=== PATIENT | male | born 1955 | race African-American/Black ===

== ENCOUNTER 2020-03-18 18:57 | Observation (INO) | payer OTHER ==
[2020-03-18] MEDS ORDERED: NA CHLORIDE 0.9% 1,000 ML ONE (20:17)
[2020-03-18 20:34] LABS: Absolute Lymphocytes (CBC) 1.2 K/uL (0.7-4.9); Basophils % 1.1 % (0-1.3); Hematocrit 44.7 % (39.6-49.0); Lymphocytes % 17.7 % (15.3-44.8); Protime INR 0.99; RBC Red Blood Cell Count 4.96 M/uL (4.33-5.43)
--- NOTE | 2020-03-18 20:44 | RAD REPORT ---
EXAM DESCRIPTION: Bertha Single View03/18/2020 8:32 pm CLINICAL HISTORY: cough COMPARISON: 2015 FINDINGS: The lungs appear clear of acute infiltrate. The heart is normal size IMPRESSION: No acute abnormalities displayed
--- NOTE | 2020-03-18 20:47 | RAD REPORT ---
EXAM DESCRIPTION: CT - Head Brain Wo Cont - 03/18/2020 8:25 pm CLINICAL HISTORY: Syncope COMPARISON: 2015 TECHNIQUE: Computed axial tomography of the head was obtained. IV contrast was not requested. All CT scans are performed using dose optimization technique as appropriate and may include automated exposure control or mA/KV adjustment according to patient size. FINDINGS: An intracranial bleed is not seen . The ventricles are normal in caliber. No extra-axial fluid collection is noted. Moderate low-density areas within periventricular, deep and subcortical white matter likely represent ischemic changes secondary to small vessel disease. Fluid within the sinuses/ mastoids is not seen. IMPRESSION: No acute intracranial abnormality is seen. If patient's symptoms persist MRI of the bra in would be recommended.
[2020-03-18 20:53] LABS: ALT/SGPT 11 U/L (12-78); AST/SGOT 14 U/L (15-37); Albumin 3.4 g/dL (3.4-5.0); Alkaline Phosphatase 130 U/L (45-117); BUN Blood Urea Nitrogen 19 mg/dL (7-18); Bicarbonate 24 mmol/L (21-32); Bilirubin Direct < 0.1 mg/dL (0-0.2); Bilirubin Total 0.3 mg/dL (0.2-1.0); Glucose Level 112 mg/dL (74-106); Magnesium 2.5 mg/dL (1.8-2.4); NT PRO-BNP 289 pg/mL (<125); Potassium 4.9 mmol/L (3.5-5.1); Protein, Total 7.7 g/dL (6.4-8.2); Sodium Level 142 mmol/L (136-145); Troponin (Emerg Dept Use Only) < 0.02 ng/mL (0.0-0.045)
[2020-03-18 21:20] LABS: Urine Blood TRACE (NEG); Urine Glucose NEGATIVE (NEG); Urine Protein 2+ (NEG); Urine Specific Gravity 1.025 (1.005-1.030)
--- NOTE | 2020-03-18 22:13 | ER ---
Nurse's Notes [facility] Name: Channing Marmolejo Age: 65 yrs Sex: Male : 1955 Arrival Date: 03/18/2020 Time: 18:58 Bed 15 Private MD: Diagnosis: Dizziness and giddiness;Syncope and collapse-near;Unspecified kidney failure-acute on chronic Presentation: 03/18 18:58 Chief complaint: Patient states: "I feel lightheaded like I am going to pass out every aa5 time I turn my head to the right for about 2 days now". 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 EMS reports pt vomited once en route and was given Zofran 4mg IVP, EMS also reports initial BP of 217/110. Pt takes Plavix. 20G to L AC by EMS. 18:58 Coronavirus screen: Patient reports a cough. Patient reports shortness of breath or aa5 difficulty breathing. Patient denies measured and/or subjective temperature greater than 100.4F prior to today's visit. Patient denies travel on a cruise ship or to a country the [facility] currently lists as an affected area. Patient denies contact with known and/or suspected case of COVID-19. Pt reports baseline SOB. Hx of COPD. Ebola Screen: Patient negative for fever greater than or equal to 101.5 degrees Fahrenheit, and additional compatible Ebola Virus Disease symptoms. Initial Sepsis Screen: Does the patient meet any 2 criteria? No. Patient's initial sepsis screen is negative. Does the patient have a suspected source of infection? No. Patient's initial sepsis screen is negative. Risk Assessment: Do you want to hurt yourself or someone else? Patient reports no desire to harm self or others. Onset of symptoms was February 2020. 18:58 Acuity: KANWAL 2 aa5 18:58 Method Of Arrival: EMS: [facility] aa5 Historical: - Allergies: 19:06 No Known Allergies; aa5 - PMHx: 19:06 CVA; Hypertension; COPD; Carotid Artery Blockage; aa5 - Immunization history:: Adult Immunizations unknown. - Social history:: Smoking status: Patient reports the use of cigarette tobacco products, denies chronic smoking, but will smoke occasionally. - Family history:: not pertinent. Screenin:30 Abuse screen: Denies threats or abuse. Denies injuries from another. Nutritional wh screening: No deficits noted. Tuberculosis screening: No symptoms or risk factors identified. Fall Risk None identified. Assessment: 19:30 General: Appears in no apparent distress. Behavior is calm, cooperative, appropriate wh for age. Pain: Denies pain. Neuro: Level of Consciousness is awake, alert, obeys commands, Oriented to person, place, time, situation, Appropriate for age Process Improvement Manager are equal bilaterally Moves all extremities. Full function Speech is normal, Facial symmetry appears normal, Pupils are PERRLA, Reports lightheadedness. Cardiovascular: Heart tones S1 S2. Cardiovascular: Rhythm is regular. Respiratory: Airway is patent Respiratory effort is even, unlabored, Respiratory pattern is regular, symmetrical, Breath sounds are clear bilaterally. GI: Abdomen is flat, non-distended. GI: Reports nausea. : No signs and/or symptoms were reported regarding the genitourinary system. EENT: No signs and/or symptoms were reported regarding the EENT system. Derm: Skin is intact, is healthy with good turgor, Skin is pink, warm \\T\\ dry. normal. Musculoskeletal: Circulation, motion, and sensation intact. 21:05 Reassessment: Patient appears in no apparent distress at this time. No changes from previously documented assessment. Patient and/or family updated on plan of care and expected duration. Pain level reassessed. Patient is alert, oriented x 3, equal unlabored respirations, skin warm/dry/pink. 22:30 Reassessment: Patient appears in no apparent distress at this time. No changes from previously documented assessment. Patient and/or family updated on plan of care and expected duration. Pain level reassessed. Patient is alert, oriented x 3, equal unlabored respirations, skin warm/dry/pink. Explained POC need for admit. Vital Signs: 18:58 BP 188 / 86; Pulse 65; Resp 16 S; Temp 97.6(O); Pulse Ox 98% on R/A; aa5 20:00 BP 161 / 76; Pulse 66; Resp 18; Pulse Ox 98% on R/A; wh 21:30 BP 163 / 69; Pulse 62; Resp 18; Pulse Ox 99% ; wh 23:00 BP 166 / 97; Pulse 63; Resp 18; Pulse Ox 98% ; wh ED Course: 18:58 Patient arrived in ED. aa5 18:58 Arm band placed on Patient placed in an exam room, on a stretcher. aa5 19:03 Alejandra Garay is Primary Nurse. 19:06 Triage completed. aa5 19:16 Matt Jack MD is Attending Physician. [facility] 19:30 Patient has correct armband on for positive identification. Placed in gown. Bed in low wh position. Call light in reach. Side rails up X 1. health psychologist on. Pulse ox on. NIBP on. 19:50 Inserted saline lock: 20 gauge in left antecubital area, using aseptic technique. Blood wh collected. 20:26 CT Head Brain wo Cont In Process Unspecified. EDMS 20:32 XRAY Chest (1 view) In Process Unspecified. EDIN 22:11 Dean Calvillo MD is Hospitalizing Provider. [facility] 23:07 No provider procedures requiring assistance completed. Patient admitted, IV remains in place. Administered Medications: 20:19 Drug: NS 0.9% 1000 ml Route: IV; Rate: 125 ml/hr; Site: left antecubital; 23:08 Follow up: Response: No adverse reaction; IV Status: Completed infusion 22:18 Drug: Aspirin 162 mg Route: PO; 23:08 Follow up: Response: No adverse reaction Outcome: 22:12 Decision to Hospitalize by Provider. [facility] 23:07 Admitted to Med/surg accompanied by [facility], via stretcher, room 224, with chart, Report wh called to Marina Comer RN 23:07 Condition: stable 23:07 Instructed on the need for admit. 23:22 Patient left the ED. Signatures: Dispatcher [employer] EDIN Matt Jack MD MD cha Calderon, Audri, RN RN aa5 Alejandra Garay Corrections: (The following items were deleted from the chart) 19:07 18:58 Chief complaint: Patient states: "I feel lightheaded like I am going to pass out aa5 every time I turn my head to the right for about 2 days now". 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 EMS reports pt vomited once en route and was given Zofran 4mg IVP, EMS also reports initial BP of 217/110. Pt takes Plavix. aa5
--- NOTE | 2020-03-18 22:14 | EDPHYS ---
Physician Documentation [facility] Name: Channing Marmolejo Age: 65 yrs Sex: Male : 1955 Arrival Date: 03/18/2020 Time: 18:58 Bed 15 Private MD: ED Physician Matt Jack HPI: 03/18 19:59 This 65 yrs old Black Male presents to ER via EMS with complaints of feeling zo lightheaded. 19:59 The patient has experienced near-syncope, almost passed out, felt dizzy. Onset: The zo symptoms/episode began/occurred today, 1 day(s) ago. Duration: This was a single episode, that lasted 30 second(s). Context: the episode(s) was witnessed, by family, occurred at home. Associated injury: The patient did not suffer any apparent associated injury. Associated signs and symptoms: The patient has no apparent associated signs or symptoms. Current symptoms: Currently, the patient is not experiencing any symptoms, the patient feels back to baseline. The patient has experienced similar episodes in the past, a few times, but today's symptoms are worse, lasting longer. Historical: - Allergies: 19:06 No Known Allergies; aa5 - PMHx: 19:06 CVA; Hypertension; COPD; Carotid Artery Blockage; aa5 - Immunization history:: Adult Immunizations unknown. - Social history:: Smoking status: Patient reports the use of cigarette tobacco products, denies chronic smoking, but will smoke occasionally. - Family history:: not pertinent. ROS: 19:59 Constitutional: Negative for fever, chills, and weight loss, Eyes: Negative for injury, zo pain, redness, and discharge, ENT: Negative for injury, pain, and discharge, Neck: Negative for injury, pain, and swelling, Cardiovascular: Negative for chest pain, palpitations, and edema, Respiratory: Negative for shortness of breath, cough, wheezing, and pleuritic chest pain, Abdomen/GI: Negative for abdominal pain, nausea, vomiting, diarrhea, and constipation, Back: Negative for injury and pain, : Negative for injury, bleeding, discharge, and swelling, MS/Extremity: Negative for injury and deformity, Skin: Negative for injury, rash, and discoloration, Psych: Negative for depression, anxiety, suicide ideation, homicidal ideation, and hallucinations, Allergy/Immunology: Negative for hives, rash, and allergies, Endocrine: Negative for neck swelling, polydipsia, polyuria, polyphagia, and marked weight changes, Hematologic/Lymphatic: Negative for swollen nodes, abnormal bleeding, and unusual bruising. 19:59 Neuro: Positive for dizziness, near syncope, weakness. Exam: 19:59 Constitutional: This is a well developed, well nourished patient who is awake, alert, zo and in no acute distress. Head/Face: Normocephalic, atraumatic. Eyes: Pupils equal round and reactive to light, extra-ocular motions intact. Lids and lashes normal. Conjunctiva and sclera are non-icteric and not injected. Cornea within normal limits. Periorbital areas with no swelling, redness, or edema. ENT: Nares patent. No nasal discharge, no septal abnormalities noted. Tympanic membranes are normal and external auditory canals are clear. Oropharynx with no redness, swelling, or masses, exudates, or evidence of obstruction, uvula midline. Mucous membranes moist. Neck: Trachea midline, no thyromegaly or masses palpated, and no cervical lymphadenopathy. Supple, full range of motion without nuchal rigidity, or vertebral point tenderness. No Meningismus. Chest/axilla: Normal chest wall appearance and motion. Nontender with no deformity. No lesions are appreciated. Cardiovascular: Regular rate and rhythm with a normal S1 and S2. No gallops, murmurs, or rubs. Normal PMI, no JVD. No pulse deficits. Respiratory: Lungs have equal breath sounds bilaterally, clear to auscultation and percussion. No rales, rhonchi or wheezes noted. No increased work of breathing, no retractions or nasal flaring. Abdomen/GI: Soft, non-tender, with normal bowel sounds. No distension or tympany. No guarding or rebound. No evidence of tenderness throughout. Back: No spinal tenderness. No costovertebral tenderness. Full range of motion. Male : Normal genitalia with no discharge or lesions. Skin: Warm, dry with normal turgor. Normal color with no rashes, no lesions, and no evidence of cellulitis. MS/ Extremity: Pulses equal, no cyanosis. Neurovascular intact. Full, normal range of motion. Neuro: Awake and alert, GCS 15, oriented to person, place, time, and situation. Cranial nerves II-XII grossly intact. Motor strength 5/5 in all extremities. Sensory grossly intact. Cerebellar exam normal. Normal gait. Psych: Awake, alert, with orientation to person, place and time. Behavior, mood, and affect are within normal limits. 19:59 Chest/axilla: Inspection: normal, Palpation: is normal, Axilla: are normal, Lymph nodes: lymphadenopathy is not appreciated. 19:59 Cardiovascular: Rate: normal, Rhythm: regular, Pulses: no pulse deficits are appreciated, Heart sounds: normal, Edema: is not appreciated, JVD: is noted on the right, to 2 cm. 22:09 Eyes: Periorbital structures: appear normal, Pupils: no acute changes, equal, round, zo and reactive to light and accomodation, Extraocular movements: intact throughout, Conjunctiva: normal, no acute changes, Corneas: are normal, Nystagmus: is not appreciated. 22:09 Neck: ROM/movement: is normal, no acute changes, Meningeal signs: are not present, nuchal rigidity, is not appreciated, no carotid bruits. 22:33 ECG was reviewed by the Attending Physician. [facility] Vital Signs: 18:58 BP 188 / 86; Pulse 65; Resp 16 S; Temp 97.6(O); Pulse Ox 98% on R/A; aa5 20:00 BP 161 / 76; Pulse 66; Resp 18; Pulse Ox 98% on R/A; wh 21:30 BP 163 / 69; Pulse 62; Resp 18; Pulse Ox 99% ; 23:00 BP 166 / 97; Pulse 63; Resp 18; Pulse Ox 98% ; MDM: 19:16 Patient medically screened. [facility] 20:01 Data reviewed: vital signs, nurses notes, lab test result(s), cardiac enzymes, CBC, [facility] electrolytes, EKG, radiologic studies, CT scan, doppler, plain films. Data interpreted: floor sander: rate is 65 beats/min, rhythm is regular, Pulse oximetry: on room air is 98 %. Test interpretation: by ED physician or midlevel provider: ECG, plain radiologic studies. Counseling: I had a detailed discussion with the patient and/or guardian regarding: the historical points, exam findings, and any diagnostic results supporting the discharge/admit diagnosis, lab results, radiology results. 22:06 Differential Diagnosis: cardiac arrhythmia, cerebrovascular accident, idiopathic zo syncope, transient ischemic attack, vasovagal episode. ED course: pt co dizzy , near syncope, pain in right side of neck, multiple episodes, will obs , carotid in morning, also worsening renal insufficency. 03/18 19:54 Order name: Basic Metabolic Panel; Complete Time: 22:02 [facility] 03/18 19:54 Order name: CBC with Diff; Complete Time: 22:02 [facility] 03/18 19:54 Order name: LFT's; Complete Time: 22:02 [facility] 03/18 19:54 Order name: Magnesium; Complete Time: 22:02 [facility] 03/18 19:54 Order name: NT PRO-BNP; Complete Time: 22:02 [facility] 03/18 19:54 Order name: PT-INR; Complete Time: 22:02 [facility] 03/18 19:54 Order name: Troponin (emerg Dept Use Only); Complete Time: 22:02 [facility] 03/18 19:54 Order name: XRAY Chest (1 view); Complete Time: 22:02 [facility] 03/18 19:54 Order name: EKG; Complete Time: 19:55 [facility] 03/18 19:54 Order name: CT Head Brain wo Cont; Complete Time: 22:02 [facility] 03/18 19:54 Order name: US Carotid Artery Bilateral [facility] 03/18 20:58 Order name: Urine Dipstick--Ancillary (enter results); Complete Time: 22:02 [facility] 03/18 19:54 Order name: Cardiac monitoring; Complete Time: 20:08 [facility] 03/18 19:54 Order name: EKG - Nurse/Tech; Complete Time: 20:08 [facility] 03/18 19:54 Order name: IV Saline Lock; Complete Time: 20:08 [facility] 03/18 19:54 Order name: Labs collected and sent; Complete Time: 20:08 [facility] 03/18 19:54 Order name: O2 Per Protocol; Complete Time: 20:08 [facility] 03/18 19:54 Order name: O2 Sat Monitoring; Complete Time: 20:08 [facility] 03/18 19:54 Order name: Urine Dipstick-Ancillary (obtain specimen); Complete Time: 20:49 [facility] EC:33 Rate is 63 beats/min. Rhythm is regular. QRS Stamps is Normal. CA interval is normal. QRS zo interval is normal. QT interval is normal. No Q waves. T waves are Normal. No ST changes noted. Clinical impression: Normal ECG and No evidence of ischemia. Interpreted by me. Reviewed by me. Administered Medications: 20:19 Drug: NS 0.9% 1000 ml Route: IV; Rate: 125 ml/hr; Site: left antecubital; 23:08 Follow up: Response: No adverse reaction; IV Status: Completed infusion 22:18 Drug: Aspirin 162 mg Route: PO; 23:08 Follow up: Response: No adverse reaction Disposition: 03/18/20 22:12 Hospitalization ordered by Dean Calvillo for Observation. Preliminary diagnosis are Dizziness and giddiness, Syncope and collapse - near, Unspecified kidney failure - acute on chronic. - Bed requested for Telemetry/MedSurg (observation). - Status is Observation. - Condition is Fair. - Problem is new. - Symptoms have improved. Signatures: Dispatcher [employer] EDMS Kyara Matute RN Matt Robles MD MD cha Calderon, Audri, RN RN aa5 Habalo, Winsy Corrections: (The following items were deleted from the chart) 22:32 22:12 Hospitalization Ordered by Dean Calvillo MD for Observation. Preliminary diagnosis is Dizziness and giddiness; Syncope and collapse - near; Unspecified kidney failure - acute on chronic. Bed requested for Telemetry/MedSurg (observation). Status is Observation. Condition is Fair. Problem is new. Symptoms have improved. [facility] : 22:32 03/18/2020 22:12 Hospitalization Ordered by Dean Calvillo MD for Observation. Preliminary diagnosis is Dizziness and giddiness; Syncope and collapse - near; Unspecified kidney failure - acute on chronic. Bed requested for Telemetry/MedSurg (observation). Status is Observation. Condition is Fair. Problem is new. Symptoms have improved.
[2020-03-18] MEDS ORDERED: ASPIRIN 81 MG CHEWABLE TABLET ONE (22:23)
[2020-03-18] MEDS ORDERED: ACETAMINOPHEN 500 MG TAB PO PRN (22:25)
[2020-03-18] MEDS ORDERED: MORPHINE 2 MG/ML SYR IV PRN (22:25)
[2020-03-18] MEDS ORDERED: ONDANSETRON 4 MG/2 ML VIAL IV PRN (22:25)
[2020-03-19 01:13] VITALS: BMI 19.4
[2020-03-19] MEDS: NA CHLORIDE 0.9% 1,000 ML IV SCH ×3 (01:59→21:15)
[2020-03-19 02:45] LABS: UR MICROALBUMIN 4.1 mg/dL (< 1.9); Urine Protein/Creatinine Ratio 0.14 ratio (<0.15)
--- NOTE | 2020-03-19 06:24 | EKG ---
Test Date: 2020-03-18 Test Time: 19:07:40 Film And Video Editor: OMAR MEASUREMENT RESULTS: Intervals: Rate: 63 WV: 124 QRSD: 82 QT: 398 QTc: 407 [place]: P: 61 WV: 124 QRS: 28 T: 48 INTERPRETIVE STATEMENTS: Normal sinus rhythm Normal ECG Compared to ECG 11/02/2015 17:10:24 ST (T wave) deviation no longer present Electronically Signed On 03-19-20 06:23:56 CDT by Kin Bennett
[2020-03-19 06:36] LABS: Absolute Lymphocytes (CBC) 3.2 K/uL (0.7-4.9); Basophils % 1.2 % (0-1.3); Hematocrit 40.3 % (39.6-49.0); Lymphocytes % 39.5 % (15.3-44.8); MPV 11.2 fL (7.6-11.3); RBC Red Blood Cell Count 4.47 M/uL (4.33-5.43)
[2020-03-19 06:59] LABS: Bilirubin Total 0.4 mg/dL (0.2-1.0); Potassium 4.1 mmol/L (3.5-5.1); Protein, Total 6.5 g/dL (6.4-8.2)
[2020-03-19] MEDS ORDERED: PNEUMOCOCCAL VACCINE 0.5 ML IMVAC ONE (08:00)
[2020-03-19] MEDS: HYDRALAZINE HCL 10 MG TABLET PO SCH ×3 (08:59→21:16)
--- NOTE | 2020-03-19 09:36 | RAD REPORT ---
EXAM DESCRIPTION: US - Renal Ultrasound-Complete - 03/19/2020 7:50 am CLINICAL HISTORY: . Chronic renal disease COMPARISON: 2019 FINDINGS: The right kidney measures 9 centimeters with an increased echotexture. It contains several cysts. The largest measures 3.6 centimeters. The left kidney measures 11 centimeters with an increased echotexture. It contains multiple cysts. Th e largest 4.6 centimeters. Hydronephrosis is not seen. No gross abnormality of bladder IMPRESSION: Multiple, bilateral renal cysts without significant change. Increased renal echotexture consistent with parenchymal disease
--- NOTE | 2020-03-19 09:39 | RAD REPORT ---
EXAM DESCRIPTION: USCarotid Artery Bilateral03/19/2020 8:15 am CLINICAL HISTORY: syncope COMPARISON: 2012 FINDINGS: The velocity of the right internal carotid artery equals 96 cm/sec. The right ICA/CCA rati o 1.6 The velocity of the left internal carotid artery equals 106 cm/sec. The left ICA/CCA ratio 1.4. No plaque visualized within the carotid arteries The vertebral arteries demonstrate antegrade flow IMPRESSION: No plaque visualized within the carotid arteries NASCET criteria used. Mild 0-49% stenosis Moderate 50-69% stenosis Severe 70-99% stenosis
--- NOTE | 2020-03-19 10:18 | P.HP ---
Certification for Inpatient Patient admitted to: Observation With expected LOS: <2 Midnights Patient will require the following post-hospital care: None Practitioner: I am a practitioner with admitting privileges, knowledge of patient current condition, hospital course, and medical plan of care. Services: Services provided to patient in accordance with Admission requirements found in Title 42 Section 412.3 of the Code of Federal Regulations Patient History Date of Service: 03/18/20 Reason for admission: Syncope; acute renal insufficiency; dehydration History of Present Illness: Patient is a 65-year-old gentleman who came to the hospital with dehydration and syncopal event. Patient was given IV fluids and in the emergency room he was feeling better. Patient also has some acute renal insufficiency. Will go ahead and check a renal ultrasound along with carotid Doppler and echocardiogram. Patient be admitted for observation Allergies No Known Allergies Allergy (Verified 03/18/20 23:48) Home Medications: Amlodipine [Norvasc] 5 mg PO DAILY 03/19/20 Clopidogrel Bisulfate [Plavix] 75 mg PO DAILY 03/19/20 Lisinopril/Hydrochlorothiazide [Lisinopril-Hctz 10-12.5 mg Tab] 1 each PO DAILY 03/19/20 Tamsulosin [Flomax] 0.4 mg PO BEDTIME 03/19/20 - Past Medical/Surgical History Has patient received pneumonia vaccine in the past: No Diabetic: No -: HTN -: Hyperlipidemia -: Chronic Kidney disease -: COPD -: History of Cocaine abuse -: Carotid Occlusive Disease -: History of CVA/TIA-no residual -: Chronic Hepatitis C -: Chronic Back pain -: Cervical Spondylosis -: UGI bleed -: Lt shoulder sx -: GI sx Psychosocial/ Personal History: . 8-Children - Family History Mother Medical History: Hypertension Father Medical History: Hypertension Brother Medical History: Hypertension Sister Medical History: Hypertension - Social History Smoking Status: Current every day smoker Alcohol use: Yes CD- Drugs: Yes Caffeine use: No Review of Systems 10-point ROS is otherwise unremarkable Physical Examination - Vital Signs Temperature: 97.1 F Blood Pressure: 188/86 Pulse: 57 Respirations: 20 Pulse Ox (%): 100 - Physical Exam General: Alert, In no apparent distress, Oriented x3 HEENT: Atraumatic, PERRLA, Mucous membr. moist/pink, EOMI, Sclerae nonicteric Neck: Supple, 2+ carotid pulse no bruit, No LAD, Without JVD or thyroid abnormality Respiratory: Clear to auscultation bilaterally, Normal air movement Cardiovascular: Regular rate/rhythm, Normal S1 S2, No murmurs Gastrointestinal: Normal bowel sounds, Soft and benign, Non-distended, No tenderness Musculoskeletal: No clubbing, No swelling, No tenderness Integumentary: No rashes Neurological: Normal gait, Normal speech, Normal strength at 5/5 x4 extr, Normal tone, Sensation intact, Cranial nerves 3-12 intact, Normal affect Lymphatics: No axilla or inguinal lymphadenopathy - Studies Laboratory Data (last 24 hrs) 03/18/20 20:16: PT 11.7, INR 0.99 03/18/20 20:16: WBC 6.7, Hgb 14.3, Hct 44.7, Plt Count 246 03/18/20 20:16: Sodium 142, Potassium 4.9, BUN 19 H, Creatinine 2.26 H, Glucose 112 H, Magnesium 2.5 H, Total Bilirubin 0.3, AST 14 L, ALT 11 L, Alkaline Phosphatase 130 H Assessment & Plan - Problems (Diagnosis) (1) Dehydration Current Visit: Yes Status: Acute (2) Syncope and collapse Current Visit: Yes Status: Acute (3) Acute renal insufficiency Current Visit: Yes Status: Acute - Plan Plan: 1. Carotid Doppler 2. Echo 3. Monitor on telemetry 4. Renal ultrasound 5. Monitor labs closely 6. GI and DVT prophylaxis Discharge Plan: Home Plan to discharge in: 48 Hours - Advance Directives Does patient have a Living Will: No Does patient have a Durable POA for Healthcare: No - Code Status/Comfort Care Code Status Assessed: Yes Code Status: Full Code Critical Care: No Time Spent Managing PTS Care (In Minutes): 45
--- NOTE | 2020-03-19 10:19 | P.DS ---
Discharge Date: 03/19/20 Disposition: ROUTINE DISCHARGE Reason for Admission: Syncope; acute renal insufficiency; dehydration - Problems (1) Dehydration Current Visit: Yes Status: Acute (2) Syncope and collapse Current Visit: Yes Status: Acute (3) Acute renal insufficiency Current Visit: Yes Status: Acute Brief History of Present Illness: Patient is a 65-year-old gentleman who came to the hospital with dehydration and syncopal event. Patient was given IV fluids and in the emergency room he was feeling better. Patient also has some acute renal insufficiency. Will go ahead and check a renal ultrasound along with carotid Doppler and echocardiogram. Patient be admitted for observation Vital Signs/Physical Exam: Temp Pulse Resp BP Pulse Ox 97.1 F 57 20 188/86 H 100 03/19/20 10:17 03/19/20 10:17 03/19/20 10:17 03/19/20 10:17 03/19/20 10:17 General: Alert, In no apparent distress, Oriented x3 Laboratory Data at Discharge: WBC 8.0 K/uL (4.3-10.9) D 03/19/20 06:16 Hgb 13.0 g/dL (13.6-17.9) L 03/19/20 06:16 Hct 40.3 % (39.6-49.0) 03/19/20 06:16 Plt Count 227 K/uL (152-406) 03/19/20 06:16 PT 11.7 SECONDS (9.5-12.5) 03/18/20 20:16 INR 0.99 03/18/20 20:16 Sodium 142 mmol/L (136-145) 03/19/20 06:16 Potassium 4.1 mmol/L (3.5-5.1) 03/19/20 06:16 BUN 19 mg/dL (7-18) H 03/19/20 06:16 Creatinine 1.92 mg/dL (0.55-1.3) H 03/19/20 06:16 Glucose 76 mg/dL (74-106) 03/19/20 06:16 Magnesium 2.5 mg/dL (1.8-2.4) H 03/18/20 20:16 Total Bilirubin 0.4 mg/dL (0.2-1.0) 03/19/20 06:16 AST 10 U/L (15-37) L 03/19/20 06:16 ALT 12 U/L (12-78) 03/19/20 06:16 Alkaline Phosphatase 108 U/L (45-117) 03/19/20 06:16 Home Medications: Amlodipine [Norvasc*] 5 mg PO DAILY 03/19/20 Clopidogrel Bisulfate [Plavix*] 75 mg PO DAILY 03/19/20 Hydralazine [Apresoline*] 10 mg PO TID #90 tab 03/19/20 Lisinopril/Hydrochlorothiazide [Lisinopril-Hctz 10-12.5 mg Tab] 1 each PO DAILY 03/19/20 Tamsulosin [Flomax*] 0.4 mg PO BEDTIME 03/19/20 New Medications: Hydralazine [Apresoline*] 10 mg PO TID #90 tab Patient Discharge Instructions: OK TO DC IV AND DC HOME. FOLLOW-UP WITH PRIMARY CARE PROVIDER IN 1-2 WEEKS. FOLLOW-UP WITH CARDIOLOGY and program development manager IN 1-2 WEEKS. RETURN TO THE ER IF symptoms worsen. CALL or TEXT DR. GONZALEZ AT [phone] IF ANY QUESTIONS REGARDING HOSPITAL STAY. PLEASE CALL THE FLOOR AT [phone] IF ANY MEDICATION OR NURSING QUESTIONS. Diet: Renal Activity: Fall precautions Time spent managing pt's care (in minutes): 30
[2020-03-19] MEDS: AMLODIPINE 5 MG TAB PO SCH (12:10)
[2020-03-19] MEDS: hydroCHLOROthiazide 12.5 MG CAP PO SCH (12:11)
[2020-03-19] MEDS: CLOPIDOGREL 75 MG TABLET PO SCH (12:11)
[2020-03-19] MEDS: lisinopriL 10 MG TAB PO SCH (12:11)
[2020-03-19] MEDS: HYDRALAZINE HCL 20 MG/ML VIAL IV ONE ×2 (12:29→14:55)
[2020-03-19] MEDS ORDERED: TAMSULOSIN 0.4 MG SR CAP PO SCH (21:00)
[2020-03-19] MEDS: clonazePAM 0.5 MG TAB PO SCH (22:47)
[2020-03-20] MEDS: METHYLPREDNISOLONE 125 MG INJ IV SCH ×2 (00:46→05:37)
[2020-03-20] MEDS: IPRATROPIUM BROM 0.5MG/2.5ML NEB SCH ×2 (01:32→08:05)
[2020-03-20] MEDS: ALBUTEROL 2.5 MG/3 ML NEB SOL NEB SCH ×2 (01:32→08:05)
--- NOTE | 2020-03-20 02:10 | P.PN ---
Subjective Date of Service: 03/19/20 Patient blood pressure was fluctuating and he did not feel comfortable going home. I spoke to patient's family, and stated that we adjusted blood pressure medication. Patient should be stable for discharge in a.m.. Review of Systems 10-point ROS is otherwise unremarkable Physical Examination - Vital Signs Temperature: 98.5 F Blood Pressure: 122/71 Pulse: 77 Respirations: 18 Pulse Ox (%): 98 - Physical Exam General: Alert, In no apparent distress, Oriented x3 Respiratory: Clear to auscultation bilaterally, Normal air movement Cardiovascular: Regular rate/rhythm, Normal S1 S2, No murmurs Gastrointestinal: Normal bowel sounds, Soft and benign, Non-distended, No masses, No rebound, No guarding Musculoskeletal: No clubbing, No swelling Neurological: Normal strength at 5/5 x4 extr, Normal tone, Sensation intact, Cranial nerves 3-12 intact Assessment & Plan - Problems (Diagnosis) (1) Dehydration Current Visit: Yes Status: Acute (2) Syncope and collapse Current Visit: Yes Status: Acute (3) Acute renal insufficiency Current Visit: Yes Status: Acute - Plan Plan: Continue with current plan of care as mentioned below: 1. Carotid Doppler was unremarkable 2. Echo is pending 3. Monitor on telemetry 4. Renal ultrasound is negative 5. Monitor labs closely 6. Adjust blood pressure medication 7. GI and DVT prophylaxis Discharge Plan: Home Plan to discharge in: 48 Hours - Advance Directives Does patient have a Living Will: No Does patient have a Durable POA for Healthcare: No - Code Status/Comfort Care Code Status: Full Code Critical Care: No Time Spent Managing PTS Care (In Minutes): 30
[2020-03-20 02:14] VITALS: O2SAT 99
--- NOTE | 2020-03-20 02:15 | P.DS ---
Discharge Date: 03/20/20 Disposition: ROUTINE DISCHARGE Discharge Condition: GOOD Reason for Admission: Syncope; acute renal insufficiency; dehydration - Problems (1) Dehydration Status: Acute (2) Syncope and collapse Status: Acute (3) Acute renal insufficiency Status: Acute Brief History of Present Illness: Patient is a 65-year-old gentleman who came to the hospital with dehydration and syncopal event. Patient was given IV fluids and in the emergency room he was feeling better. Patient also has some acute renal insufficiency. Will go ahead and check a renal ultrasound along with carotid Doppler and echocardiogram. Patient be admitted for observation Hospital Course: Patient has done well after hydration. Clinically patient is doing well. At this time, patient is stable for discharge with outpatient follow-up. Patient will need to follow closely with Nephrology as an outpatient. Patient does have some proteinuria. Patient will need to continue to follow with PCP, Cardiology, and Nephrology as an outpatient. Return to the ER if symptoms worsen. Vital Signs/Physical Exam: Temp Pulse Resp BP Pulse Ox 98.5 F 77 18 122/71 98 03/20/20 02:09 03/20/20 02:09 03/20/20 02:09 03/20/20 02:09 03/20/20 02:09 General: Alert, In no apparent distress, Oriented x3 Laboratory Data at Discharge: WBC 8.0 K/uL (4.3-10.9) D 03/19/20 06:16 Hgb 13.0 g/dL (13.6-17.9) L 03/19/20 06:16 Hct 40.3 % (39.6-49.0) 03/19/20 06:16 Plt Count 227 K/uL (152-406) 03/19/20 06:16 PT 11.7 SECONDS (9.5-12.5) 03/18/20 20:16 INR 0.99 03/18/20 20:16 Sodium 142 mmol/L (136-145) 03/19/20 06:16 Potassium 4.1 mmol/L (3.5-5.1) 03/19/20 06:16 BUN 19 mg/dL (7-18) H 03/19/20 06:16 Creatinine 1.92 mg/dL (0.55-1.3) H 03/19/20 06:16 Glucose 76 mg/dL (74-106) 03/19/20 06:16 Magnesium 2.5 mg/dL (1.8-2.4) H 03/18/20 20:16 Total Bilirubin 0.4 mg/dL (0.2-1.0) 03/19/20 06:16 AST 10 U/L (15-37) L 03/19/20 06:16 ALT 12 U/L (12-78) 03/19/20 06:16 Alkaline Phosphatase 108 U/L (45-117) 03/19/20 06:16 Home Medications: Amlodipine [Norvasc*] 5 mg PO DAILY 03/19/20 Clopidogrel Bisulfate [Plavix*] 75 mg PO DAILY 03/19/20 Hydralazine [Apresoline*] 10 mg PO TID #90 tab 03/19/20 Lisinopril/Hydrochlorothiazide [Lisinopril-Hctz 10-12.5 mg Tab] 1 each PO DAILY 03/19/20 Tamsulosin [Flomax*] 0.4 mg PO BEDTIME 03/19/20 New Medications: Hydralazine [Apresoline*] 10 mg PO TID #90 tab Patient Discharge Instructions: OK TO DC IV AND DC HOME. FOLLOW-UP WITH PRIMARY CARE PROVIDER IN 1-2 WEEKS. FOLLOW-UP WITH CARDIOLOGY and frame maker IN 1-2 WEEKS. RETURN TO THE ER IF symptoms worsen. CALL or TEXT DR. GONZALEZ AT [phone] IF ANY QUESTIONS REGARDING HOSPITAL STAY. PLEASE CALL THE FLOOR AT [phone] IF ANY MEDICATION OR NURSING QUESTIONS. Diet: Renal Activity: Fall precautions Followup: Kin Bennett MD [ACTIVE - CAN ADMIT] - Time spent managing pt's care (in minutes): 20
[2020-03-20 06:31] LABS: Absolute Lymphocytes (CBC) 0.8 K/uL (0.7-4.9); Basophils % 0.8 % (0-1.3); Hematocrit 41.4 % (39.6-49.0); Lymphocytes % 10.8 % (15.3-44.8); MPV 10.9 fL (7.6-11.3); RBC Red Blood Cell Count 4.68 M/uL (4.33-5.43)
[2020-03-20 06:46] LABS: Magnesium 2.2 mg/dL (1.8-2.4); Phosphorus 2.1 mg/dL (2.5-4.9); Potassium 4.1 mmol/L (3.5-5.1)
[2020-03-20] MEDS ORDERED: HOME MED 1 EA UNK (Lisinopril/Hydrochlorothiazide [Lisinopril-Hctz 10-12.5 Mg Tab] 1 EACH) PO SCH (09:00)
[2020-03-20] MEDS: AMLODIPINE 5 MG TAB PO SCH (09:05)
[2020-03-20] MEDS: HYDRALAZINE HCL 10 MG TABLET PO SCH (09:05)
[2020-03-20] MEDS: clonazePAM 0.5 MG TAB PO SCH (09:05)
[2020-03-20] MEDS: CLOPIDOGREL 75 MG TABLET PO SCH (09:06)
[2020-03-20] MEDS: lisinopriL 10 MG TAB PO SCH (09:06)
[2020-03-20] MEDS: hydroCHLOROthiazide 12.5 MG CAP PO SCH (09:06)
[2020-03-20 09:07] VITALS: BP 124/71
[2020-03-20 09:38] LABS: Blood Morphology Comment NOT SEEN (NOT SEEN); Platelet Estimate ADEQ; Urine White Blood Cell Casts OK
[2020-03-20 10:00] VITALS: TEMP 97.5
--- NOTE | 2020-03-22 07:50 | ECHO ---
HEIGHT: 5 ft 11 in WEIGHT: 139 lb 0 oz DATE OF STUDY: 03/19/[address]: Dean Calvillo MD 2-DIMENSIONAL: YES M.MODE: YES DOPPLER: YES COLOR FLOW: YES TDS: PORTABLE: DEFINITY: BUBBLE STUDY: DIAGNOSIS: SYNCOPE CARDIAC HISTORY: CATHERIZATION: NO SURGERY: NO PROSTHETIC VALVE: NO PACEMAKER: NO MEASUREMENTS (cm) DIASTOLIC (NORMALS) SYSTOLIC (NORMALS) IVSd 0.9 (0.6-1.2) LA Diam 3.3 (1.9-4.0) LVEF 63% LVIDd 3.5 (3.5-5.7) LVIDs 2.3 (2.0-3.5) %FS 34% LVPWd 1.0 (0.6-1.2) Ao Diam 3.0 (2.0-3.7) 2 DIMENSIONAL ASSESSMENT: RIGHT ATRIUM: NORMAL LEFT ATRIUM: NORMAL RIGHT VENTRICLE: NORMAL LEFT VENTRICLE: NORMAL TRICUSPID VALVE: NORMAL MITRAL VALVE: NORMAL PULMONIC VALVE: NORMAL AORTIC VALVE: NORMAL PERICARDIAL EFFUSION: NONE AORTIC ROOT: NORMAL LEFT VENTRICULAR WALL MOTION: NORMAL DOPPLER/COLOR FLOW: MILD TRICUSPID REGURGITATION. NORMAL RIGHT VENTRICULAR SYSTOLIC PRESSURE. COMMENTS: NORMAL LEFT VENTRICULAR SIZE AND FUNCTION. NO WALL MOTION ABNORMALITY. NO EFFUSION. MILD TRICUSPID REGURGITATION - NORMAL RIGHT VENTRICULAR SIZE AND FUNCTION. TECHNOLOGIST: MASHA GIL
== END 2020-03-20 10:59 | disposition home or self-care (01) ==
LOC: ER 18:57 → ERHOLD 22:23 → 2ND 23:07
PROVIDERS: ADMIT Hospitalist; ATTEND Hospitalist
DX: R55 Syncope and collapse (principal); E86.0 Dehydration; I12.9 Hypertensive chronic kidney disease with stage 1 through stage 4 chronic kidney disease, or unspecified chronic kidney disease; N18.9 Chronic kidney disease, unspecified; E78.5 Hyperlipidemia, unspecified; J44.9 Chronic obstructive pulmonary disease, unspecified; F14.10 Cocaine abuse, uncomplicated; N28.9 Disorder of kidney and ureter, unspecified; Z23 Encounter for immunization
CPT/HCPCS: 96361; 93005; 93306; 85025 ×3; 80048 ×2; 36415 ×2; 83735 ×2; 84100; 85610; 80076; 83605; 81003; 82570; 84484; 80053; 83880 ×2; 84156; 82043; 70450; 71045; 90471; 93880; 90670; 76770; 94640; 96360; 99285; J0360; J7030 ×3; J2930 ×2; G0378 ×3

== ENCOUNTER 2020-12-23 11:07 | Inpatient (IN) | payer OTHER ==
--- NOTE | 2020-12-22 13:16 | R.PREADM ---
PRE-ADMISSION SCREENING FORM SCREENING DATE AND TIME 12/22/2020 09:32 (MARKETING EFFECTIVENESS MANAGER) ANTICIPATED REHAB ADMISSION DATE 12/24/2020 REFERRING FACILITY [facility] REFERRAL DATE AND TIME 12/21/2020 10:32 (MARKETING EFFECTIVENESS MANAGER) REFERRAL OFFICE PHONE REFERRAL ROOM# [id number] ACUTE ADMIT DATE 12/23/2020 Previous Rehabilitation(s): No. ACUTE TORPEDO MAN/DC WILL CALL ORDER CLERK SHARMILA ATTENDING PHYSICIAN SHY EVANS MD REFERRING PHYSICIAN SHY EVANS MD REHAB FACILITY [facility] CLINICAL LIAISON Chika Brown PHYSICIAN REVIEWER Dr. Colin Barrera M.D. MR# [id number] NAME RADHA LEWIS ADDRESS [address] [facility] PHONE [facility] [id number] DATE OF 1955 AGE 65 SSN# [id number] GENDER male MARITAL STATUS RACE unknown race ADMIT FROM 02 - [facility] PRE-HOSPITAL LIVING SETTING 01 - Home (private home/apt. board/care, assisted living, retirement, transitional living) HOME TYPE AND DETAILS Type of home: single family house # of steps to enter the residence: 1 # of levels in the residence: 2 # of levels in the residence: 1 PRE-HOSPITAL LIVING WITH Alone FAMILY SUPPORT Yes PRIMARY FAMILY CONTACT NAME RADHA LEWIS PRIMARY FAMILY CONTACT PHONE PRIMARY FAMILY CONTACT RELATIONSHIP Son PHONE PRIMARY FAMILY CONTACT ON ADM.? no IS PRIMARY FAMILY CONTACT AUTH. REP.? no 1ST EMERGENCY CONTACT RADHA LEWIS 1ST CONTACT PHONE 1ST CONTACT RELATIONSHIP Son PHONE 1ST CONTACT ON ADM. no IS 1ST CONTACT AUTH. REP.? no PHONE 2ND CONTACT ON ADM.? no PATIENT EMPLOYMENT STATUS Retired (for age) PATIENT EMPLOYER No Employer PAYOR INFORMATION: 1ST PAYOR NAME Lizet 1ST PAYOR PHONE [phone] 1ST PAYOR CONTACT Brian Massimo 1ST PAYOR INJURY/ILLNESS DUE TO ACCIDENT? No ANOTHER DEMOCRAT RESPONSIBLE? No PRIMARY REHAB/ACUTE DIAGNOSIS: CVA,ATAXIA ONSET DATE 12/16/2020 REHAB IMPAIRMENT CATEGORY (SHERITA): 01 Stroke (STR) MEETS 60% rule AFFECTED EXTREMITIES: RLE, and RUE PRIMARY DIAGNOSIS-RELATED SURGERIES: LUMBAR PUNCTURE PROCEDURE 12/17/20 SUMMARY OF ACUTE HOSPITALIZATION: Pt. is a 65 yo Right-handed male of unknown race. On 12/16/2020 Pt. presented to [facility] with sudden onset of right-side weakness. On 12/16/2020 he was admitted to [facility] with diagnosis CVA,ATAXIA. His impairment category is Stroke 01 - Right Body (Left Brain) (01.2). Pre-morbidly, Pt. was independent/mod-I in Balance, Safety Awareness, Self-Care, and Endurance; and h e had good Social Cognition, Transfers Control, Self-Care, and Balance. Currently, he has deficits of Locomotion, Sphincter Control, Endurance, Transfers Control, Balance, a nd Safety Awareness. Pt. is now referred to [facility] for acute in-patient rehabilitation in order to maximize patient's functional independence in activities of daily living, strength, ROM, and mobi lity. Patient has realistic goal of being discharged at assistance level 7-Ind to reside at Home with Pt s elf. PAST MEDICAL HISTORY HTN COPD CVA'S X 6 ATAXIA HYPERLIPIDMIA PROTEIN-CALORIE MALNUTRITION MEDICATION ALLERGIES: No Known Drug Allergies (NKDA) ENVIRONMENTAL ALLERGIES: - Substance Allergies None Known - Other Allergies None Known CODE STATUS: Full code HEIGHT 5' 7" BMI N/A DIET: - Diet Type Regular - Diet - Solid Texture Regular - Diet - Liquid Texture Regular - Tube Feed N/A REVIEW OF SYSTEMS: - Gen Alert and awake Lying in bed No apparent distress Oriented to: person, time, and place - Vital Signs Temperature: 98.3 F SBP/DBP: 163/94 Pulse: 87 Resp: 18 Vital signs stable, afebrile - CVS RRR VITAL SIGNS Temperature: 98.3 F SBP/DBP: 163/94 Pulse: 87 Resp: 18 Vital signs stable, afebrile MEDICATIONS/TREATMENT: Other- See attached MAR (Medication Administration Record). CURRENT SPHINCTER CONTROL: Pre-hospital bladder status: unspecified # of bladder accidents in the last 7 days prior to screenin Pre-hospital bowel status: unspecified # of bowel accidents in the last 7 days prior to screenin Last Bowel Movement Date: 12/22/2020 CURRENT LOCOMOTION STATUS: distance walked 75 feet W ROLLING WALKER DETAILED CURRENT FUNCTIONAL STATUS: - Bladder accident frequency: Ind - No accidents in the past 7 days - Bowel accident frequency: Ind - No accidents in the past 7 days - Walking score based on distance walked: 0(N/A) score based on distance walked: 2(5149ft) - Wheelchair score based on distance traveled: 0(N/A) QI SCORES: - Self-Care A. Eating 03-Partial/moderate assistance B. Oral hygiene 03-Partial/moderate assistance C. Toileting hygiene 03-Partial/moderate assistance E. Shower/bathe self 03-Partial/moderate assistance F. Upper body dressing 04-Supervision or touching assistance G. Lower body dressing 03-Partial/moderate assistance H. Putting on/taking off footwear 88-Not attempted due to medical condition or safety concerns - Mobility A. Roll left and right 03-Partial/moderate assistance B. Sit to lying 03-Partial/moderate assistance C. Lying to sitting on side of bed 03-Partial/moderate assistance D. Sit to stand 03-Partial/moderate assistance E. Chair/[id number] transfer 03-Partial/moderate assistance F. Toilet transfer 03-Partial/moderate assistance G. Car transfer 88-Not attempted due to medical condition or safety concerns I. Walk 10 feet 03-Partial/moderate assistance J. Walk 50 feet with two turns 03-Partial/moderate assistance K. Walk 150 feet 88-Not attempted due to medical condition or safety concerns L. Walking 10 feet on uneven surfaces 88-Not attempted due to medical condition or safety concerns M. 1 step (curb) 88-Not attempted due to medical condition or safety concerns N. 4 steps 88-Not attempted due to medical condition or safety concerns O. 12 steps 88-Not attempted due to medical condition or safety concerns P. Picking up object 88-Not attempted due to medical condition or safety concerns R. Wheel 50 feet with two turns 88-Not attempted due to medical condition or safety concerns S. Wheel 150 feet 88-Not attempted due to medical condition or safety concerns - Bladder and Bowel Bladder continence Bowel continence - Endurance Fair - Balance Fair - Safety Awareness Fair CURRENT FUNC. DEFICITS: Self-Care, Mobility, Endurance, Balance, and Safety Awareness CURRENT / PREVIOUS ASSISTIVE DEVICES: Rolling Walker HISTORY OF FALLS. HAS THE PATIENT HAD TWO OR MORE FALLS IN THE PAST YEAR OR ANY FALL WITH INJURY IN T HE PAST YEAR?: Yes THERAPY NOTES FROM ACUTE CARE: Attached. SPECIAL NEEDS: - Safety Concerns Skin breakdown precautions needed due to skin breakdown risk PRECAUTIONS: - Weight Bearing Precaution WBAT right LE PATIENT NEEDS ACTIVE AND ONGOING THERAPEUTIC INTERVENTION OF MULTIPLE THERAPY DISCIPLINES, INCLUDING: - Occupational Therapy Cognitive Retraining. Visual Perceptual Training. - Dietary and Nutrition Adequate Nutrition. Nutritional Education. Nutritional Supplements. - Speech Therapy Cognitive Training. Expressive Language Skills. Memory Strategies. Receptive Language Skills. Speech Intelligibility Training. PATIENT NEEDS CLOSE MEDICAL SUPERVISION BY A REHABILITATION PHYSICIAN FOR: Coordination of Treatment Team PATIENT REQUIRES 24X7 REHAB NURSING FOR MEDICAL AND FUNCTIONAL MGT. OF THE FOLLOWING DEFICITS: Disease Management Medication Management Patient/Family Education Providing Safe Environment PATIENT REQUIRES INTENSIVE, COORDINATED INTERDISCIPLINARY APPROACH TO REHAB: Arranging Home Equipment/Services Discharge Planning Family Intervention/Training Acupressure Therapist/Case Management PATIENT REHAB POTENTIAL: Micheal LEWIS is able and expected to receive 3 hours of individualized therapy daily on at least 5 of kalen ry 7 days Micheal LEWIS's prognosis for significant practical improvement within a reasonable period of time appears Good Expected level of measurable improvement will be of a practical value to Micheal LEWIS's functional capaci ty or adaptations to impairments Has a viable Discharge Plan Medically appropriate; condition is sufficiently stable to participate in intensive rehab program DISCHARGE PLAN: - Estimated Length of Stay (days) 17. - Consensus on plan Discharge plan has been discussed with primary caregiver. Patient/Family is in agreement with the kody n. Primary caregiver is in agreement with the plan. - Patient/Family Goals Return home independently. - Planned Living Setting Upon Discharge Home, to live alone. Transitional Living. Primary caregiver: Pt self. RECOMMENDED CARE LEVEL: IRF RECOMMENDATION DETAILS: Recommended Admission to Comprehensive Rehabilitation Program to Increase Functional Placer SCREENER'S COMPLETENESS CONFIRMATION: - Screening Confirmation The patient data collection on this preadmission screening form is finished PHYSICIANS REVIEW AND ADMISSION DETERMINATION Admit - Based on my review of the Pre-Admission Screening results, in my medical judgment and experie nce, I concur with the findings and recommend admission to [facility], as this patient requires an IRF level of care. SIGNATURE PANEL: Pharmaceutical Engineer - [electronically] signed by Chika Brown on 12/22/2020 at 11:41 (MARKETING EFFECTIVENESS MANAGER) Pharmaceutical Engineer - [electronically] signed by Aly Song PT on 12/22/2020 at 12:09 (MARKETING EFFECTIVENESS MANAGER) Physician Reviewer - [electronically] signed by Dr. Colin Barrera M.D. on 12/22/2020 at 13:16 ([facility] )
--- OUTSIDE RECORDS SUMMARY | 2020-12-23 14:49 | XMS REPORT | Continuity of Care Document ---
:1955 Author Organization [facility] t Address [address] [place] [address] Care Team Providers Name Role Phone Unavailable Unavailable Unavailable Payers Payer Name Policy Type Policy Number Effective Date Expiration Date S ource Problems This patient has no known problems. Allergies, Adverse Reactions, Alerts Allergy Allergy Status Severity Reaction(s) Onset Inactive Treating Comm ents Source Name Type Date Date Clinician No Known DA Active U [facility] Allergie 2-11 [place] s 00:00: d 00 [facility] Medications This patient has no known medications. Procedures This patient has no known procedures. Results Test Description Test Time Test Comments Results Result Comments Source GLUCOSE BEDSIDE TESTING 2020-12-13 06:38:00 Test Item Value Reference Range Interpretation Comme nts GLUCOSE BEDSIDE TESTING (test code = GLUBED) 93 mg/dL 70-110 N BASIC METABOLIC [id number] 06:24:00 Test Item Value Reference Range Interpretation Comments SODIUM (test code = NA) 142 mmol/L 134-147 N POTASSIUM (test code = K) 4.3 mmol/L 3.4-5.0 N CHLORIDE (test code = CL) 113 mmol/L 100-108 H CARBON DIOXIDE (test code = CO2) 24 mmol/L 21-32 N ANION GAP (test code = GAP) 5.0 GAP calc 4.0-15.0 N GLUCOSE (test code = GLU) 87 MG/DL 70-110 N BLOOD UREA NITROGEN (test code = 12 MG/DL 7-18 N BUN) GLOMERULAR FILTRATION RATE (test 49 estGFR >60 L code = GFR) CREATININE (test code = CREAT) 1.8 MG/DL 0.8-1.3 H CALCIUM (test code = CA) 8.8 MG/DL 8.5-10.1 N GLUCOSE BEDSIDE [id number] 17:01:00 Test Item Value Reference Range Interpretation Comments GLUCOSE BEDSIDE TESTING (test code 220 mg/dL 70-110 H = GLUBED) GLUCOSE BEDSIDE [id number] 11:37:00 Test Item Value Reference Range Interpretation Comments GLUCOSE BEDSIDE TESTING (test code = 86 mg/dL 70-110 N GLUBED) GLUCOSE BEDSIDE [id number] 08:10:00 Test Item Value Reference Range Interpretation Comments GLUCOSE BEDSIDE TESTING (test code = 86 mg/dL 70-110 N GLUBED) BASIC METABOLIC [id number] 05:12:00 Test Item Value Reference Range Interpretation Comments SODIUM (test code = NA) 141 mmol/L 134-147 N POTASSIUM (test code = K) 3.8 mmol/L 3.4-5.0 N CHLORIDE (test code = CL) 112 mmol/L 100-108 H CARBON DIOXIDE (test code = CO2) 23 mmol/L 21-32 N ANION GAP (test code = GAP) 6.0 GAP calc 4.0-15.0 N GLUCOSE (test code = GLU) 83 MG/DL 70-110 N BLOOD UREA NITROGEN (test code = 13 MG/DL 7-18 N BUN) GLOMERULAR FILTRATION RATE (test 52 estGFR >60 L code = GFR) CREATININE (test code = CREAT) 1.7 MG/DL 0.8-1.3 H CALCIUM (test code = CA) 8.6 MG/DL 8.5-10.1 N BASIC METABOLIC [id number] 05:07:00 Test Item Value Reference Range Interpretation Comments SODIUM (test code = NA) 141 mmol/L 134-147 N POTASSIUM (test code = K) 3.8 mmol/L 3.4-5.0 N CHLORIDE (test code = CL) 112 mmol/L 100-108 H CARBON DIOXIDE (test code = CO2) 23 mmol/L 21-32 N ANION GAP (test code = GAP) 6.0 GAP calc 4.0-15.0 N GLUCOSE (test code = GLU) 83 MG/DL 70-110 N BLOOD UREA NITROGEN (test code = 13 MG/DL 7-18 N BUN) GLOMERULAR FILTRATION RATE (test estGFR >60 code = GFR) CREATININE (test code = CREAT) MG/DL 0.8-1.3 CALCIUM (test code = CA) 8.6 MG/DL 8.5-10.1 N GLUCOSE BEDSIDE [id number] 20:21:00 Test Item Value Reference Range Interpretation Comments GLUCOSE BEDSIDE TESTING (test code 119 mg/dL 70-110 H = GLUBED) - CT HEAD/BRAIN W/O [id number] 18:46:00 [facility] 1955 Sex: M Name: RADHA LEWIS [facility] : 1955 Age/S: 65 / M [address] [address] Unit #: [id number] Loc: [place] [address] Phys: [facility] [id number] Dis Date: Status: ADM IN PHONE #:[phone] Exam Date: 12/10/2020 1846 FAX #: Reason: decrease loc since yesterday EXAMS: CPT: [id number] CT HEAD/BRAIN W/O CONT 41131 EXAM: CT BRAIN WITHOUT CONTRAST INDICATION: decrease loss of consciousness since yesterday COMPARISON: MR dated December 09, 2020 TECHNIQUE: Routine axial CT images of the brain were obtained without venous contrast. IV contrast: None DLP: 875.51 mGy-cm FINDINGS: There is an evolving subacute lacunar infarct in the right thalamus. There are chronic lacunar infarcts in the right black radiata. There are areas of low- attenuation within the central white matter consistent with chronic microvascular ischemic changes. There is prominence of the ventricles and sulci consistent with diffuse cerebral volume loss. No midline shift or mass effect. The basal cisterns are patent. The posterior fossa and 4th ventricle are normal. No calvarial lesions are identified. The paranasal sinuses and mastoid air cells are clear. The orbits and globes are unremarkable. IMPRESSION: No acute intracranial hemorrhage is identified. Evolving subacute lacunar infarct in the right thalamus. Moderate chronic microvascular ischemic changes and diffuse cerebral volume loss. Chronic lacunar infarct in the right black radiata. LOCATION: B2 This CT exam was performed according to our departmental dose optimization program, which includes automated exposure control, adjustment of the mA and or kV according to patient size and/or use of iterative reconstruction technique. at 1846 Reported and signed by: Kelsie Nielsen M.D. PAGE 1 Signed Report (CONTINUED) Name: RADHA LEWIS [facility] : 1955 Age/S: 65 / M [address] [address] Unit #: [id number] Loc: [place] [address] Phys: Michele Thompson MD Acct: [id number] Dis Date: Status: ADM IN PHONE #: [phone] ExamDate: 12/10/20201842 FAX #: Reason: decrease loc since yesterday EXAMS: CPT: [id number] CT HEAD/BRAIN W/O CONT 58907 <Continued> CC: Michele Thompson MD; Pj Brooks MD Technologist:Sherlyn White RT(R)(CT);En CTDI: DLP: Trnscb Date/Time: 12/10/2020 (1845) [email or web address] Orig Print D/T: S: 12/10/2020 (1848) PAGE 2 Signed Report- DUP EXTRACRANIAL [id number] 14:30:00 [facility] : 1955 Sex: M Name: RADHA LEWIS : 1955 Age/S: 65 / M [address] [address] Unit #: [id number] Loc: [place] [address] Phys: Pj Brooks MDAcct: [id number] Dis Date: Status: ADM IN PHONE #:[phone] Exam Date: 12/10/2020 1400 FAX #: Reason: ISCHEMIC STROKE EXAMS: CPT: [id number] DUP EXTRACRANIAL LAINEY [address] Dictation location A1 Carotid Doppler Ultrasound HISTORY: Ischemic stroke COMMENTS: The extracranial carotid arteries were evaluated with real time uribe scale, c olor and spectral Doppler. COMPARISON: MRI one day prior. FINDINGS: The peak systolic velocities and IC/CC ratios are within normal limits bilaterally measuring 0.8 bilaterally. There is mild scattered atherosclerotic plaque demonstrated with no hemodynamically significant stenosis. Antegrade flow seen in both vertebral arteries. IMPRESSION: 1. No hemodynamically significant stenosis demonstrated. 2. Mild scattered plaque in both common carotid arteries and carotid bulbs. at 1430 Reported and signed by: Gege Wilson M.D. CC: Pj Brooks MD Technologist: Nicole Landin Trnscb Date/Time: 12/10/2020 (1430) [email or web address] PAGE 1 Signed Report Name:RADHA LEWIS : 1955 Age/S: 65 / M [id number] [address] Unit #: [id number] Loc: [place] [address] Phys: Pj Brooks MD Acct: [id number] Dis Date: Status: ADM IN PHONE #: [phone] Exam Date: 12/10/2020 1400 FAX #: Reason: ISCHEMIC STROKE EXAMS: CPT: [id number] DUP EXTRACRANIAL [place] [address] <Continued> Orig Print D/T: S: 12/10/2020 (1433) Probe: PAGE 2 Signed ReportGLYCOSYLATED HEMOGLOBIN [id number] 11:30:00 Test Item Value Reference Range Interpretation Comments GLYCOSYLATED HEMOGLOBIN (HA1C) 5.8 % A1C 0.0-5.7 H (test code = GLYHGB) ESTIMATED AVERAGE GLUCOSE (test 120 MG/DLest code = EAG) COMPREHENSIVE METABOLIC [id number] 11:29:00 Test Item Value Reference Range Interpretation Comments SODIUM (test code = NA) 141 mmol/L 134-147 N POTASSIUM (test code = K) 4.0 mmol/L 3.4-5.0 N CHLORIDE (test code = CL) 112 mmol/L 100-108 H CARBON DIOXIDE (test code = CO2) 24 mmol/L 21-32 N ANION GAP (test code = GAP) 5.0 GAP calc 4.0-15.0 N GLUCOSE (test code = GLU) 97 MG/DL 70-110 N BLOOD UREA NITROGEN (test code = 12 MG/DL 7-18 N BUN) GLOMERULAR FILTRATION RATE (test 52 estGFR >60 L code = GFR) CREATININE (test code = CREAT) 1.7 MG/DL 0.8-1.3 H TOTAL PROTEIN (test code = PROT) 6.8 G/DL 6.4-8.2 N ALBUMIN (test code = ALB) 3.3 G/DL 3.4-5.0 L GLOBULIN (test code = GLOB) 3.5 GM/dL ALBUMIN/GLOBULIN RATIO (test 0.9 RATIO 1.2-2.2 L code = A/G) CALCIUM (test code = CA) 8.9 MG/DL 8.5-10.1 N BILIRUBIN TOTAL (test code = 0.60 MG/DL 0.2-1.2 N BILT) SGOT/AST (test code = AST) 15 Unit/L 15-37 N SGPT/ALT (test code = ALT) 18 Unit/L 12-78 N ALKALINE PHOSPHATASE TOTAL (test 115 Unit/L 50-136 N code = ALKP) LIPID PROFILE (CORONARY RISK)2020-12-10 11:29:00 Test Item Value Reference Range Interpretation Comments TRIGLYCERIDES (test 55 MG/DL 0-150 N code = TRIG) CHOLESTEROL (test code 102 MG/DL 133-200 L = CHOL) CHOLESTEROL/HDL RATIO 2.08 RATIO See_Comment [Auto mated message] (test code = CHOLHDL) The sy stem which generated this result transmit sissy reference range : 0-. The reference r mariah was not used to interpret this result as normal/abnormal . HDL CHOLESTEROL (test 49 MG/DL 40-59 N code = HDL) NON-HDL CHOLESTEROL 53 mg/dL <130 (test code = NHDL) LIPOPROTEIN LDL (test 44 MG/DL 0-129 N code = LDL) LDL/HDL (test code = 0.89 Ratio See_Comment L [Autom ated message] LDL/HDL) The system [employer] generated this result transmit sissy reference range : 1.48-3.22 Avg. The reference range was not used to interpret this result as normal/abnormal . CBC W/AUTO [id number] 11:01:00 Test Item Value Reference Range Interpretation Comments WHITE BLOOD CELL (test code = 6.8 K/mm3 3.5-11.0 N WBC) RED BLOOD CELL (test code = 5.02 M/mm3 4.70-6.10 N RBC) HEMOGLOBIN (test code = HGB) 14.2 G/DL 12.3-15.9 N HEMATOCRIT (test code = HCT) 44.5 % 35.8-46.7 N MEAN CELL VOLUME (test code = 88.6 Fl 86.3-98.9 N MCV) MEAN CELL HGB (test code = MCH) 28.3 pg 28.9-34.4 L MEAN CELL HGB CONCETRATION 31.9 G/DL 32.1-34.5 L (test code = MCHC) RED CELL DISTRIBUTION WIDTH 13.7 SD 11.5-14.5 N (test code = RDW) PLATELET COUNT (test code = 243 K/mm3 150-450 N PLT) MEAN PLATELET VOLUME (test code 12.50 fL 7.0-9.6 H = MPV) NEUTROPHIL % (test code = NT%) 56.0 % 40-76 N IMMATURE GRANULOCYTE % (test 0.1 % 0.0-5.0 N code = IG%) LYMPHOCYTE % (test code = LY%) 28.4 % 20.5-51.1 N MONOCYTE % (test code = MO%) 10.4 % 1.7-9.3 H EOSINOPHIL % (test code = EO%) 3.8 % 0.0-6.0 N BASOPHIL % (test code = BA%) 1.3 % 0.0-2.0 N NUCLEATED RBC % (test code = 0.0 /100WBC% 0.0-1.0 N NRBC%) NEUTROPHIL # (test code = NT#) 3.8 K/mm3 1.8-7.6 N IMMATURE GRANULOCYTE # (test 0.01 x10 3/uL 0.00-0.03 N code = IG#) LYMPHOCYTE # (test code = LY#) 1.9 K/mm3 0.6-3.0 N MONOCYTE # (test code = MO#) 0.7 K/mm3 0.2-1.5 N EOSINOPHIL # (test code = EO#) 0.3 K/mm3 0.0-0.4 N BASOPHIL # (test code = BA#) 0.1 K/mm3 0.0-0.2 N NUCLEATED RBC # (test code = 0.0 K/mm3 0.00-0.01 N NRBC#) MANUAL DIFF REQUIRED (test code NO DIFF/SCN CRITERIA = MDIFF) Coronavirus 2018 nCoV [id number] 18:27:00 Test Item Value Reference Range Interpretation Comments Coronavirus 2019 nCoV Negative Negative Per ma nufacturer, Bedside (test code = negativ e results should [id number]) be treated aspresumptive a nd, if inconsistent wi th clinical signs andsymptoms or necessary for p atient management, pablo uld betested with a n alternative mol ecular assay. Negative resultsdo not p reclude SARS-CoV-2 infe ction and should not be usedas the sole basis for patient man agement decisions. Neg ative results should be considered in t he context of apat ient's recent exposure s, history, prese nce of clinicalsigns a nd symptoms consis tent with COVID-19. - MRI BRAIN W/O [id number] 16:59:00 [facility] 1955 Sex: M FAX: Pj Brooks MD [phone] Camps: PM St: [facility] 1955 Age/S: 65/M [address] [address] Unit #: [id number] Loc: [place] [address] Phys: Pj Brooks MD Acct: [id number] Dis Date: Status: AD M IN PHONE #: [phone] Exam Date: 12/09/2020 1650 FAX #: Reason: r/o CVA EXAMS: CPT: [id number] MRI BRAIN W/O CONTRAST 72748 EXAM: MRI BRAIN WITHOUT CONTRAST INDICATION: CVA COMPARISON: CT head dated December 09, 2020 TECHNIQUE: Multiplanar, multisequence MRI of the brain was obtained without administration of intravenous contrast. IV contrast: None FINDINGS: There is a small focus of restricted diffusionin the right thalamus with corresponding hyperintense T2 changes consistent with early subacute lacunar infarct. There are areas of hyperintense T2 changes within the supratentorial white matter consistent with moderate chronic microvascular ischemic changes. There is prominence of the ventricles and sulci consistent with diffuse cerebral volume loss. No midline shift or mass effect. The basal cisterns are patent. The posterior fossa and 4th ventricle are normal. No intracranial hemorrhage. Intracranial flow voids are normal. The paranasal sinuses and mastoid air cells are clear. No calvarial lesions are identified. The orbits and globes are unremarkable. IMPRESSION: Small early subacute lacunar infarct in the right thalamus. Moderate chronic microvascular ischemic changes and diffuse cerebral volume loss. LOCATION: A 1 at 1659 Reported and signed by: Kelsie Nielsen M.D. CC: Pj Brooks MD Technologist: RT Nathaniel(R)(CT) Transcribed Date/Time/By: 12/09/2020 (0787) :[email or web address] Orig Print D/T: S: 12/09/2020 (9215) PAGE 1 Signed ReportUR PROTEIN [id number] 15:35:00 Test Item Value Reference Range Interpretation Comments UR PROTEIN TOTAL (test code = 19.3 MG/DL 0.0-12.0 H PROTU) UR CREATININE [id number] 15:35:00 Test Item Value Reference Range Interpretation Comments UR CREATININE RANDOM (test code = 97.1 MG/DL 30-125 N CREATU) - US RETRO [id number] 15:10:00 [facility] : 1955 Sex: M Name: RADHA LEWIS [facility] : 1955 Age/S: 65 / M [address] [address] Unit #: [id number] Loc: [place] [address] Phys: [facility]al Rudd [facility] [id number] Dis Date: Status: ADM IN PHONE #:[phone] Exam Date: 12/09/2020 1500 FAX #: Reason: evalm of kidney size and echogenicity for ckd EXAMS: CPT: [id number] US RETRO LTD [address] Location of dictation: B2 ULTRASOUND OF THE KIDNEYS: CLINICAL HISTORY: Evaluate kidney size and echogenicity for chronic kidney disease COMPARISON: None TECHNIQUE: Multiple high resolution images were obtained through the kidneys using a multifrequency curved transducer. FINDINGS: The right kidney measures 10 x 6 x 6.4 cm. The left kidney measures 13 x 8 x 7 cm. The visualized portions of renal parenchyma appear hyperechoic. There is a gently lobulated simple cyst in the right upper pole measuring 4 x 3.4 x 3 cm. Multiple cystic areas are seen in the left kidney with internal echoes mayrepresent severe hydronephrosis or multiple cysts. The bladder is not distended. Thereis no ascites. IMPRESSION: 1. Hyperechoic kidneys. 2. Simple cyst right kidney, multiple cysts versus severe hydronephrosis left kidney. Electronica lly Signed by Jose Wilson on 12/09/2020 at 1510 Reported and signed by: Gege Wilson M.D. CC: Pj Brooks MD; Gamal Rudd MD Technologist: Nicole Landin [facility] Date/Time: 12/09/2020 (4919) JeriFORMERLY [facility] PAGE 1 Signed Report Name: RADHA LEWIS [facility] : 1955 Age/S: 65 / M [address] [address] Unit #: [id number] Loc: [place] [address] Phys: Gamal Rudd MD Acct: [id number] DisDate: Status: ADM IN PHONE #: [phone] Exam Date: 12/09/2020 1500 FAX #: Reason: evalm of kidney size and ec hogenicity for ckd EXAMS: CPT: [id number] RETRO LTD [address] <Continued> Orig Print D/T: S: 12/09/2020 (6161) Probe: PAGE 2 Signed ReportUA RFLX MICR CULT IF [id number] 08:20:00 Test Item Value Reference Range Interpretation Comments UA COLOR (test code = COLU) YELLOW discript YEL/STRAW UA APPEARANCE (test code = CLEAR discript CLEAR APPU) UA GLUCOSE DIPSTICK (test NEGATIVE mg/dL NEG code = DGLUU) UA BILIRUBIN DIPSTICK (test NEGATIVE mg/dL NEG code = BILU) UA KETONE DIPSTICK (test NEGATIVE mg/dL NEG code = KETU) UA SPECIFIC GRAVITY (test 1.010 SG 1.005-1.030 code = SGU) UA BLOOD DIPSTICK (test NEGATIVE mg/DL NEG code = ELOY) UA PH DIPSTICK (test code = 6.0 pH UNITS 5.0-7.0 ESTEPHANIA) UA PROTEIN DIPSTICK (test NEGATIVE mg/dL NEG code = PROU) UA UROBILINIOGEN DIPSTICK 0.2 mg/dL <2.0 (test code = URO) UA NITRITE DIPSTICK (test NEGATIVE SCREEN NEG code = JEFFREY) UA LEUKOCYTE ESTERASE NEGATIVE Leuk/mcL NEGATIVE DIPSTICK (test code = LEUU) UA CULTURE NEEDED? (test Criteria Culture CHK code = UACULT) Indication for culture: Dysuria/FrequencyUA RFLX MICR CULT IF INDICATED 2020-12-09 08:20:00 Test Item Value Reference Range Interpretation Comments UA COLOR (test code = COLU) YELLOW discript YEL/STRAW UA APPEARANCE (test code = CLEAR discript CLEAR APPU) UA GLUCOSE DIPSTICK (test NEGATIVE mg/dL NEG code = DGLUU) UA BILIRUBIN DIPSTICK (test NEGATIVE mg/dL NEG code = BILU) UA KETONE DIPSTICK (test NEGATIVE mg/dL NEG code = KETU) UA SPECIFIC GRAVITY (test 1.010 SG 1.005-1.030 code = SGU) UA BLOOD DIPSTICK (test NEGATIVE mg/DL NEG code = ELOY) UA PH DIPSTICK (test code = 6.0 pH UNITS 5.0-7.0 ESTEPHANIA) UA PROTEIN DIPSTICK (test NEGATIVE mg/dL NEG code = PROU) UA UROBILINIOGEN DIPSTICK 0.2 mg/dL <2.0 (test code = URO) UA NITRITE DIPSTICK (test NEGATIVE SCREEN NEG code = JEFFREY) UA LEUKOCYTE ESTERASE NEGATIVE Leuk/mcL NEGATIVE DIPSTICK (test code = LEUU) Indication for culture: Dysuria/Frequency- XR SHOULDER 2+V [id number] 08:19:00[facility] : 1955 Sex: M Name: RADHA LEWIS : 1955 Age/S: 65 / M [address] [address] Unit #: [id number] Loc: [place] [address] Phys: Mode Duran MDAcct: [id number] Dis Date: Status: REG ER PHONE #:[phone] Exam Date: 12/09/2020 08 FAX #: Reason: trauma EXAMS: CPT: [id number] XR SHOULDER 2+[place] [address] Fluoro Time: DAP (Gy m2): Air Kerma (mGy): Dictation Location B2 LEFT SHOULDER 3 VIEWS: HISTORY: Recurrent falls and confusion COMMENT: No no acute fracture, dislocation, focal lesion or destructive process seen. Mild degenerative narrowing of the joint spaces. Surrounding bones and soft tissues are intact. IMPRESSION: No acute findings of the left shoulder. at 0819 Reported and signed by: Gege Wilson M.D. CC: Mode Duran MD PAGE 1 Signed Report Name: RADHA LEWIS : 1955 Age/S: 65 / M [address] [address] Unit #: [id number] Loc: [place] [address] Phys: Mode Duran MD Acct: [id number] Dis Date: Status: REG ER PHONE #: [phone] Exam Date: 12/09/2020 0815 FAX #: Reason: trauma EXAMS: CPT: [id number] XR SHOULDER 2+[place] [address] Fluoro Time: DAP (Gy m2): Air Kerma (mGy): <Con tinued> Technologist: Dominguez Molina, RT(R)(CT) Trnscb Date/Time: 12/09/2020 (0819) [email or web address] Orig Print D/T: S: 12/09/2020 (6899) PAGE 2 Signed ReportBASIC METABOLIC [id number] 08:11:00 Test Item Value Reference Range Interpretation Comments SODIUM (test code = NA) 141 mmol/L 134-147 N POTASSIUM (test code = K) 3.7 mmol/L 3.4-5.0 N CHLORIDE (test code = CL) 112 mmol/L 100-108 H CARBON DIOXIDE (test code = CO2) 22 mmol/L 21-32 N ANION GAP (test code = GAP) 7.0 GAP calc 4.0-15.0 N GLUCOSE (test code = GLU) 93 MG/DL 70-110 N BLOOD UREA NITROGEN (test code = 15 MG/DL 7-18 N BUN) GLOMERULAR FILTRATION RATE (test 40 estGFR >60 L code = GFR) CREATININE (test code = CREAT) 1.8 MG/DL 0.8-1.3 H CALCIUM (test code = CA) 8.6 MG/DL 8.5-10.1 N Completed by Nursing: [id number] 08:11:00 Test Item Value Reference Range Interpretation Comments TROPONIN-I (test < 0.015 NG/ML 0.000-0.045 N Negative: </= 0.045 code = TROPI) Positive: >/= 0.046 Correlation wit h serial results, other cardiac markers, and cl inical findings is nec essary to determine the c linical significance of this result. Quantit ative results using d ifferent methodologies s hould not be compared to one another as nume rical results may shade yby method. Completed by Nursing: NOPROTHROMBIN [id number] 07:54:00 Test Item Value Reference Range Interpretation Comments PT PATIENT (test code = PTP) 11.7 SECONDS 9.3-12.9 N INTERNATIONAL NORMAL RATIO 1.04 INR Unit 0.8-1.2 N (test code = INR) THROMBOPLASTIN TIME [id number] 07:54:00 Test Item Value Reference Range Interpretation Comments THROMBOPLASTIN TIME PARTIAL 33.0 SECONDS 26-35 N (test code = PTT) - CT HEAD/BRAIN W/O [id number] 07:48:00 [facility] : 1955 Sex: M Name: RADHA LEWIS [facility] : 1955 Age/S: 65 / M [address] [address] Unit #: [id number] Loc: [place] [address] Phys: Mode [id number] Dis Date: Status: PRE ER PHONE #:[phone] Exam Date: 12/09/2020 0737 FAX #: Reason: Code Stroke EXAMS: CPT: [id number] CT HEAD/BRAIN W/O CONT 36788 EXAM:- CT HEAD/BRAIN W/O CONT INDICATION: Code Stroke LOCATION: T18 COMPARISON: None available time of interpretation. TECHNIQUE: Axial tomograms through the brain were obtained without intravenous contrast. Coronal and sagittal reformatted images are provided. All CT scans are performed using radiation dose reduction technique.Technical factors are evaluated and adjusted to insure appropriate moderation of exposure. Automated dose management technology is applied to adjust the radiation dose to minimize exposure while achieving a diagnostic quality image. FINDINGS: Intra-axial and extra-axial structures: No CT evidence of acute territorial infarct, or intracranial hemorrhage seen. No mass effect, midline shift or hydrocephalus seen. Bilateral periventricular low attenuation changes seen, suggesting sequela of chronic small vessel ischemic disease. Mild bilateral cerebral volume loss. Bones and soft tissues:Appear unremarkable. Paranasal sinuses, and mastoid air cells: Appear clear. Orbits:Visualized orbits appear unremarkable. IMPRESSION: No acute intracranial process seen. Findings discussed with at 7:47 AM on 12/09/2020. FOR INTERNAL CODING PURPOSES ONLY RESULT CODE: CVR at 0748 Reported and signed by: Isaias De Oliveira M.D. PAGE 1 Signed Report (CONTINUED) Name: RADHA LEWIS [place] : 1955 Age/S: 65 / M [address] [address] Unit #: [id number] Loc: [place] [address] Phys: Mode Duran MD Acct: [id number] Dis Date: Status: PRE ER PHONE #: [phone] Exam Date: 12/09/2020 0717 FAX #: Reason: Code Stroke EXAMS: CPT: [id number] CT HEAD/BRAIN W/O CONT 10281 <Co ntinued> CC: Mode Duran MD Technologist:Nerissa See, RT(R) CTDI: DLP: Trnscb Date/Time: 12/09/2020 (0748) [email or web address] Orig Print D/T: S: 12/09/2020 (0751) PAGE 2 Signed ReportCBC W/O DIFF 2020-12-09 07:47:00 Test Item Value Reference Range Interpretation Comments WHITE BLOOD CELL (test code = WBC) 6.9 K/mm3 3.5-11.0 N RED BLOOD CELL (test code = RBC) 5.13 M/mm3 4.70-6.10 N HEMOGLOBIN (test code = HGB) 14.6 G/DL 12.3-15.9 N HEMATOCRIT (test code = HCT) 45.7 % 35.8-46.7 N MEAN CELL VOLUME (test code = MCV) 89.1 Fl 86.3-98.9 N MEAN CELL HGB (test code = MCH) 28.5 pg 28.9-34.4 L MEAN CELL HGB CONCETRATION (test 31.9 G/DL 32.1-34.5 L code = MCHC) RED CELL DISTRIBUTION WIDTH (test 13.8 SD 11.5-14.5 N code = RDW) PLATELET COUNT (test code = PLT) 246 K/mm3 150-450 N MEAN PLATELET VOLUME (test code = 12.20 fL 7.0-9.6 H MPV)
[2020-12-23 16:43] LABS: Urine Appearance CLEAR; Urine Bilirubin NEGATIVE (NEG); Urine Blood NEGATIVE (NEG); Urine Color YELLOW; Urine Glucose NEGATIVE (NEG); Urine Protein NEGATIVE (NEG); Urine pH 6.5 (5.0-7.0)
[2020-12-23 16:53] LABS: Urine Bacteria NONE SEEN /HPF (NONE SEEN); Urine RBC <5 /HPF (NONE SEEN)
[2020-12-23] MEDS: carvediloL 12.5 MG TAB PO SCH (17:42)
[2020-12-23] MEDS: ATORVASTATIN 40 MG TAB PO SCH (19:25)
[2020-12-23] MEDS: QUETIAPINE 25 MG TAB PO SCH (19:25)
[2020-12-23] MEDS: FORMOTEROL IH SCH (19:26)
[2020-12-23] MEDS: BUDESONIDE IH SCH (19:26)
[2020-12-23] MEDS ORDERED: BUDESONIDE IH SCH (20:00)
[2020-12-23] MEDS ORDERED: FORMOTEROL IH SCH (20:00)
[2020-12-24] MEDS: carvediloL 12.5 MG TAB PO SCH ×2 (05:13→17:03)
[2020-12-24 06:38] LABS: Absolute Lymphocytes (CBC) 2.6 K/uL (0.7-4.9); Hematocrit 44.3 % (39.6-49.0); Lymphocytes % 42.2 % (15.3-44.8); MPV 12.1 fL (7.6-11.3); RBC Red Blood Cell Count 5.03 M/uL (4.33-5.43)
[2020-12-24] MEDS: HEPARIN 5000 UNIT/ML 1 ML VIAL SQ SCH ×2 (07:43→18:09)
[2020-12-24] MEDS: BUDESONIDE IH SCH ×2 (07:50→20:31)
[2020-12-24] MEDS: FORMOTEROL IH SCH ×2 (07:50→20:31)
[2020-12-24] MEDS: AMLODIPINE 5 MG TAB PO SCH (07:51)
[2020-12-24] MEDS: BUPROPION HCL XL 150 MG TAB PO SCH (07:51)
[2020-12-24] MEDS: TAMSULOSIN 0.4 MG SR CAP PO SCH (07:52)
[2020-12-24] MEDS: ASPIRIN 81 MG CHEWABLE TABLET PO SCH (07:52)
--- NOTE | 2020-12-24 10:03 | P.RH.PN ---
Estimated Length of Stay: 14 Expected Discharge Date: 01/05/21 Discharge Disposition Plan: Home Family Support: Yes Intermediate Goal: Mobility, Transfers, Self Care Vital Signs: Last Vital Signs Temp 98.4 F 12/24/20 07:06 Pulse 71 12/24/20 07:51 Resp 18 12/24/20 07:06 BP 164/87 H 12/24/20 07:51 Pulse Ox 99 12/24/20 07:06 Laboratory: Laboratory Last Values WBC 6.10 K/uL (4.3-10.9) 12/24/20 06:08 RBC 5.03 M/uL (4.33-5.43) 12/24/20 06:08 Hgb 14.3 g/dL (13.6-17.9) 12/24/20 06:08 Hct 44.3 % (39.6-49.0) 12/24/20 06:08 MCV 88.1 fL (80-100) 12/24/20 06:08 MCH 28.4 pg (27.0-35.0) 12/24/20 06:08 MCHC 32.3 g/dL (32.0-36.0) 12/24/20 06:08 RDW 14.0 % (12.1-15.2) 12/24/20 06:08 Plt Count 202 K/uL (152-406) 12/24/20 06:08 MPV 12.1 fL (7.6-11.3) H 12/24/20 06:08 Neutrophils % 40.2 % (41.7-73.7) L 12/24/20 06:08 Lymphocytes % 42.2 % (15.3-44.8) 12/24/20 06:08 Monocytes % 12.2 % (3.3-12.3) 12/24/20 06:08 Eosinophils % 4.4 % (0-4.4) 12/24/20 06:08 Basophils % 1.0 % (0-1.3) 12/24/20 06:08 Absolute Neutrophils 2.4 K/uL (1.8-8.0) 12/24/20 06:08 Absolute Lymphocytes 2.6 K/uL (0.7-4.9) 12/24/20 06:08 Absolute Monocytes 0.7 K/uL (0.1-1.3) 12/24/20 06:08 Absolute Eosinophils 0.3 K/uL (0-0.5) 12/24/20 06:08 Absolute Basophils 0.1 K/uL (0-0.5) 12/24/20 06:08 Urine Color Yellow 12/23/20 16:15 Urine Appearance Clear 12/23/20 16:15 Urine pH 6.5 (5.0-7.0) 12/23/20 16:15 Ur Specific [place] 1.010 (1.005-1.030) 12/23/20 16:15 Glucose (UA)(Auto) Negative (NEG) 12/23/20 16:15 Urine Ketones Negative (NEG) 12/23/20 16:15 Urine Blood Negative (NEG) 12/23/20 16:15 Urine Nitrite Negative (NEG) 12/23/20 16:15 Urine Bilirubin Negative (NEG) 12/23/20 16:15 Urine Urobilinogen 1.0 mg/dL (0.2-1.0) 12/23/20 16:15 Ur Leukocyte Esterase Negative (NEG) 12/23/20 16:15 Urine RBC <5 /HPF (NONE SEEN) 12/23/20 16:15 Urine WBC None seen /HPF (<5) 12/23/20 16:15 Ur Squamous Epith Cells <5 /HPF (NONE SEEN) 12/23/20 16:15 Urine Bacteria None seen /HPF (NONE SEEN) 12/23/20 16:15 Urine Culture Reflexed Not needed 12/23/20 16:15 Urine Total Protein Negative (NEG) 12/23/20 16:15 SARS-CoV-2 RNA (RT-PCR) Negative (NEGATIVE) 12/23/20 16:00 Weight: 141 lb 6.4 oz Physician Update: Labs are stable. He is being evaluated by physical and occupational therpay. Summary: Patient's care plan and residential goals have been reviewed and revised as necessary. Please see the Rehabilitation Signature page for all necessary signatures.
[2020-12-24 10:56] LABS: Albumin 3.6 g/dL (3.4-5.0); Magnesium 2.4 mg/dL (1.8-2.4); Potassium 4.2 mmol/L (3.5-5.1)
--- NOTE | 2020-12-24 15:10 | R.HP ---
HISTORY AND PHYSICAL FACILITY: [facility] ENCOUNTER DATE AND TIME: 12/24/2020 14:52 (DOUBLE BOTTOM DRIVER) MR#: [id number] NAME RADHA LEWIS ADDRESS: [address]: [facility] [id number] PHONE: DATE OF : 1955 AGE: 65 SSN# [id number] GENDER: Male DEXTERITY Right-handed MARITAL STATUS RACE Unknown race PRE-HOSPITAL LIVING SETTING 01 - Home (private home/apt. board/care, assisted living, shelter, transitional living) PRE-HOSPITAL LIVING WITH Alone ENCOUNTER PHYSICIAN: Dr. Colin Barrera M.D. REFERRING DOCTOR: SHY EVANS MD DATE OF ADMISSION: 12/23/2020 14:46 (DOUBLE BOTTOM DRIVER) REFERRING FACILITY [facility] HOME TYPE AND DETAILS: Type of home: single family house # of steps to enter the residence: 1 # of levels in the residence: 2 # of levels in the residence: 1 ONSET DATE: 12/16/2020 PRIMARY DIAGNOSIS-RELATED SURGERIES: LUMBAR PUNCTURE PROCEDURE 12/17/20 HISTORY OF PRESENT ILLNESS (HPI): Pt. is a 65 yo Right-handed male of unknown race. On 12/16/2020 Pt. presented to [facility] with sudden onset of right-side weakness. On 12/16/2020 he was admitted to [facility] with diagnosis CVA,ATAXIA. His impairment category is Stroke 01 - Right Body (Left Brain) (01.2). Pre-morbidly, Pt. was independent/mod-I in Balance, Safety Awareness, Self-Care, and Endurance; and h e had good Social Cognition, Transfers Control, Self-Care, and Balance. Currently, he has deficits of Locomotion, Sphincter Control, Endurance, Transfers Control, Balance, a nd Safety Awareness. Pt. is now referred to [facility] for acute in-patient rehabilitation in order to maximize patient's functional independence in activities of daily living, strength, ROM, and mobi lity. Patient has realistic goal of being discharged at assistance level 7-Ind to reside at Home with Pt s elf. MEDICATION ALLERGIES: No Known Drug Allergies (NKDA) ENVIRONMENTAL ALLERGIES: - Substance Allergies None Known - Other Allergies None Known PAST MEDICAL HISTORY: HTN COPD CVA'S X 6 ATAXIA HYPERLIPIDMIA PROTEIN-CALORIE MALNUTRITION SOCIAL HISTORY: - Home Living Alone REVIEW OF SYSTEMS: - Gen No Chills Fatigue No Fever - Eyes No Double Vision No itchiness - ENMT No Difficulty Swallowing - CVS No Chest Discomfort No Chest Pain Fatigue No Weight Gain - Resp No Cough No Shortness of Breath - GI Continent No Abdominal Pain No Constipation No Diarrhea - Continent No Kidney Pain No Painful Urination No Urinary Urgency - MSK No Joint Pain Muscle Cramps Stiffness - Skin No Itching No Rash No Suspicious Lesions - Neuro Coordination Difficulty No Difficulty with Concentration Memory Loss No Seizures Weakness - Psych No Anxiety No Depression No HIV Exposure No Persistent Infections No Seasonal Allergies - Endo No Cold/Heat Intolerance No Excessive Hunger No Excessive Thirst No Excessive Urination PHYSICAL EXAM - Gen Alert and awake Lying in bed No apparent distress Oriented to: person, time, and place - Skin No beakdown No numbness - Eyes No discharge - ENMT No abnormalities - Neck No abnormalities - CVS RRR - Chest Clear - Abd + bowel sounds - GI Soft Deferred - No abnormalities - Ext No significant edema - MSK 4/5 weakness in right upper and lower extremity. - Neuro Hoarse voice, 4/5 weakness in right upper and lower extremity. Ataxic gait. - Psych No abnormalities VITAL SIGNS Temperature: 98.4 F SBP/DBP: 164/87 Pulse: 71 Resp: 16 NURSING: - Shower allowing shower - Bladder care per protocol - Skin care per protocol PRECAUTIONS: - Weight Bearing Precaution WBAT right LE ACTIVITIES OOB only with supervision QI SCORES: - Self-Care A. Eating 03-Partial/moderate assistance B. Oral hygiene 03-Partial/moderate assistance C. Toileting hygiene 03-Partial/moderate assistance E. Shower/bathe self 03-Partial/moderate assistance F. Upper body dressing 04-Supervision or touching assistance G. Lower body dressing 03-Partial/moderate assistance H. Putting on/taking off footwear 88-Not attempted due to medical condition or safety concerns - Mobility A. Roll left and right 03-Partial/moderate assistance B. Sit to lying 03-Partial/moderate assistance C. Lying to sitting on side of bed 03-Partial/moderate assistance D. Sit to stand 03-Partial/moderate assistance E. Chair/zds-iy-aemgh transfer 03-Partial/moderate assistance F. Toilet transfer 03-Partial/moderate assistance G. Car transfer 88-Not attempted due to medical condition or safety concerns I. Walk 10 feet 03-Partial/moderate assistance J. Walk 50 feet with two turns 03-Partial/moderate assistance K. Walk 150 feet 88-Not attempted due to medical condition or safety concerns L. Walking 10 feet on uneven surfaces 88-Not attempted due to medical condition or safety concerns M. 1 step (curb) 88-Not attempted due to medical condition or safety concerns N. 4 steps 88-Not attempted due to medical condition or safety concerns O. 12 steps 88-Not attempted due to medical condition or safety concerns P. Picking up object 88-Not attempted due to medical condition or safety concerns R. Wheel 50 feet with two turns 88-Not attempted due to medical condition or safety concerns S. Wheel 150 feet 88-Not attempted due to medical condition or safety concerns - Bladder and Bowel Bladder continence Bowel continence - Endurance Fair - Balance Fair - Safety Awareness Fair CURRENT FUNC. DEFICITS: Self-Care, Mobility, Endurance, Balance, and Safety Awareness MEDICATIONS: - Other See attached MAR (Medication Administration Record) ASSESSMENT: Pt. is a 65 yo Right-handed male of unknown race.On 12/16/2020 Pt. presented to [facility] with sudden onset of right-side weakness.On 12/16/2020 he was admitted to [facility] with diagnosis CVA,ATAXIA.His impairment category is Stroke 01 - Right Body (Left Brain) (01.2).Pre-morbidly, Pt. was independent/mod-I in Balance, Safety Awareness, Self-Care, and Endurance; and he had good Social Cognition, Transfers Control, Self-Care, and Balance.Currently, he has deficits of Locomotion, Sphinc ter Control, Endurance, Transfers Control, Balance, and Safety Awareness.Pt. is now referred to [facility] for acute in-patient rehabilitation in order to maximize patient's funct ional independence in activities of daily living, strength, ROM, and mobility.- Rehab Goal Patient has realistic goal of being discharged at assistance level 7-Ind to reside at Home with Pt s elf. for Dementia, TBI, Stroke, or others - Physical Therapy Gait dysfunction - to improve, our physical therapists will perform initial evaluation of pt's status upon admission and devise an individualized program for Gait Training, and Wheel Chair mobility Inability to transfer - to improve, our physical therapists will perform initial evaluation of pt's s tatus upon admission and devise an individualized program for Bed mobility Need for home safety evaluation - to improve, our physical therapists will perform initial evaluation of pt's status upon admission and devise an individualized program for Home Evaluation Need in caregiver upon discharge - to improve, our physical therapists will perform initial evaluatio n of pt's status upon admission and devise an individualized program for Caregiver Training New precaution - to improve, our physical therapists will perform initial evaluation of pt's status u dayna admission and devise an individualized program for Patient precaution education Edema - to improve, our physical therapists will perform initial evaluation of pt's status upon admi ssion and devise an individualized program for Elevation Training, and Lymphedema Therapy Poor balance - to improve, our physical therapists will perform initial evaluation of pt's status upo n admission and devise an individualized program for Balance Training Poor endurance - to improve, our physical therapists will perform initial evaluation of pt's status u dayna admission and devise an individualized program for Endurance Training Weakness - to improve, our physical therapists will perform initial evaluation of pt's status upon ad mission and devise an individualized program for Aquatic Therapy, Neuromuscular Reeducation, and Stre ngthening Achieving independence - to improve, our physical therapists will perform initial evaluation of pt's status upon admission and devise an individualized program for Community Reintegration Activities - Occupational Therapy Need for patient care manager - to improve, our occupation therapists will perform initial evaluation of pt's s tatus upon admission and devise an individualized program for Caregiver Training Weakness - to improve, our occupation therapists will perform initial evaluation of pt's status upon admission and devise an individualized program for Aquatic Therapy, Balance, Endurance, UE ROM, and U E strengthening MEDICAL PLAN: - Diet Type Start Regular - Diet - Liquid Texture Start Regular - Tube Feed Start N/A - Bladder care per protocol - Weight Bearing Precaution WBAT right LE - Skin care per protocol - Other See attached MAR (Medication Administration Record) - Diet - Solid Texture Regular - Shower shower DISCHARGE PLAN: - Estimated Length of Stay (days) 17. - Consensus on plan Discharge plan has been discussed with primary caregiver. Patient/Family is in agreement with the kody n. Primary caregiver is in agreement with the plan. - Patient/Family Goals Return home independently. - Planned Living Setting Upon Discharge Home, to live alone. Transitional Living. Primary caregiver: Pt self. SIGNATURE PANEL: (DOUBLE BOTTOM DRIVER)
--- NOTE | 2020-12-24 15:12 | PAPE ---
POST ADMISSION PHYSICIAN EVALUATION PATIENT: [facility] MR# [id number] REFERRING DOCTOR SHY EVANS MD EVALUATION DATE AND TIME 12/24/2020 15:10 (REHAB OFFICE COORDINATOR) NAME RADHA LEWIS DATE OF 1955 AGE 65 PHONE N# [id number] GENDER male EVALUATING PHYSICIAN Dr. Colin Barrera M.D. ADMISSION DIAGNOSIS: CVA,ATAXIA ONSET DATE 12/16/2020 POST-ADMISSION FUNCTIONAL/MEDICAL STATUS: - Bladder Same accident frequency: Ind - No accidents in the past 7 days - Bowel Same accident frequency: Ind - No accidents in the past 7 days - Walking Same score based on distance walked: 0(N/A) Same score based on distance walked: 2(5149ft) - Wheelchair Same score based on distance traveled: 0(N/A) STATUS CHANGE EVALUATION: No change in Functional or Medical Status is identified compared with Pre-Admission screening. PATIENT NEEDS CLOSE MEDICAL SUPERVISION BY A REHABILITATION PHYSICIAN FOR: Coordination of Treatment Team PATIENT REQUIRES 24X7 REHAB NURSING FOR MEDICAL AND FUNCTIONAL MGT. OF THE FOLLOWING DEFICITS: Disease Management Medication Management Patient/Family Education Providing Safe Environment PATIENT REQUIRES INTENSIVE, COORDINATED INTERDISCIPLINARY APPROACH TO REHAB: Arranging Home Equipment/Services Discharge Planning Family Intervention/Training Public Services Librarian/Case Management LIST OF IDENTIFIED AND POTENTIAL PROBLEMS: Alteration in leisure activities Bladder, Incontinence Bowel, Incontinence Infection, Actual or Potential Mobility Impaired Pain, Alteration in Comfort Self Care Deficit Skin Integrity, Actual or Potential Urinary Tract Infection (UTI), Actual or Potential PATIENT COULD BE AT RISK FOR COMPLICATIONS FROM ADVERSE MEDICAL CONDITIONS DUE TO HIS/HER COMORBIDITI ES AND THE RIGORS OF THE INTENSIVE REHABILLITATION PROGRAM. METHODS OR INTERVENTIONS TO AVOID COMPLIC ATIONS INCLUDE: - Bleeding Stroke patients assessed for lethargy or change in status. - Infection Clinical staff to assess and manage the signs and symptoms of infection including fever, redness, war mth, etc. - Urinary Tract Infection - Aspiration Clinical staff will assess and manage coughing, drooling, congestion. - Falls Patient will be evaluated for Fall Precautions and will be placed on Fall Precautions as indicated pe r protocol. - Skin Breakdown Nursing will assess skin daily using assessment tool and will place on Skin Breakdown Precautions as indicated per protocol. - Pain Clinical staff may employ non-medication methods such as massage, distraction, decrease stimulus, etc . as needed. Clinical staff will assess patient's pain level every shift per protocol to assess and e nsure pain management effectiveness. Medications will be given and the pain level re-assessed. PRELIMINARY PLAN OF CARE: - Physical Therapy Patient needs Physical Therapy for a daily minimum of 1.5 hours at least 5 out of 7 days, to improve: Mobility, Strengthening, Transfers, Stretching, ROM, Endurance, Ability to manage stairs, Gait, and Balance. - Speech Therapy Patient needs Speech Therapy for a daily minimum of 0.5 hours at least 5 out of 7 days, to improve: S wallowing, Cognition, Language Skills, and Compensatory Strategies. - Rehabilitation Nursing Patient requires 24x7 Rehabilitation Nursing for: Pain Issues, Identifying and preventing risk factor s, Monitoring and reporting current medical conditions, Assisting with ambulation and transfer, Chirag ting with all ADL-s, Teaching patients about disease process and medications, Family teaching, Provid ing safe environment, Bowel and Bladder Issues, Skin Integrity, and Medication Management. Patient needs Public Services Librarian and/or Case Management for: Discharge Planning, Arranging Home Equipmen t or Services, and Family Interventions. - Dietary and Nutrition Services Patient needs Dietary and Nutrition Services for: Adequate Nutrition, Nutritional Supplements, and Nu tritional Education. - Occupational Therapy Patient needs Occupational Therapy for a daily minimum of 1.5 hours at least 5 out of 7 days, to impr ove Activities of Daily Living, including: Eating, Grooming, Bathing, Dressing, Toileting, Toilet Tra nsfers, Community Reintegration, Higher functional activities, Adaptive Equipment, Splinting, Househo ld Tasks, and Other activities as determined. QI SCORES: - Self-Care A. Eating 03-Partial/moderate assistance B. Oral hygiene 03-Partial/moderate assistance C. Toileting hygiene 03-Partial/moderate assistance E. Shower/bathe self 03-Partial/moderate assistance F. Upper body dressing 04-Supervision or touching assistance G. Lower body dressing 03-Partial/moderate assistance H. Putting on/taking off footwear 88-Not attempted due to medical condition or safety concerns - Mobility A. Roll left and right 03-Partial/moderate assistance B. Sit to lying 03-Partial/moderate assistance C. Lying to sitting on side of bed 03-Partial/moderate assistance D. Sit to stand 03-Partial/moderate assistance E. Chair/uwu-dp-vqqky transfer 03-Partial/moderate assistance F. Toilet transfer 03-Partial/moderate assistance G. Car transfer 88-Not attempted due to medical condition or safety concerns I. Walk 10 feet 03-Partial/moderate assistance J. Walk 50 feet with two turns 03-Partial/moderate assistance K. Walk 150 feet 88-Not attempted due to medical condition or safety concerns L. Walking 10 feet on uneven surfaces 88-Not attempted due to medical condition or safety concerns M. 1 step (curb) 88-Not attempted due to medical condition or safety concerns N. 4 steps 88-Not attempted due to medical condition or safety concerns O. 12 steps 88-Not attempted due to medical condition or safety concerns P. Picking up object 88-Not attempted due to medical condition or safety concerns R. Wheel 50 feet with two turns 88-Not attempted due to medical condition or safety concerns S. Wheel 150 feet 88-Not attempted due to medical condition or safety concerns - Bladder and Bowel Bladder continence Bowel continence - Endurance Fair - Balance Fair - Safety Awareness Fair POTENTIAL FUNCTIONAL GOALS FOR PATIENT TO ACHIEVE BY DISCHARGE: - Safety Precaution Patient will remain free from falls or injury at time of discharge. - Bed Mobility Patient will perform bed mobility at 4-Rolando level of assistance. - Transfers Patient will complete transfers from bed to chair at 4-Rolando level of assistance. - Mobility Patient will ambulate 150 ft with 4-Rolando level of assistance with RW. PATIENT REHAB POTENTIAL Micheal LEWIS is able and expected to receive 3 hours of individualized therapy daily on at least 5 of kalen ry 7 days Micheal LEWIS's prognosis for significant practical improvement within a reasonable period of time appears Good Expected level of measurable improvement will be of a practical value to Micheal LEWIS's functional capaci ty or adaptations to impairments Has a viable Discharge Plan Medically appropriate; condition is sufficiently stable to participate in intensive rehab program DISCHARGE PLAN: - Estimated Length of Stay (days) 17. - Consensus on plan Discharge plan has been discussed with primary caregiver. Patient/Family is in agreement with the kody n. Primary caregiver is in agreement with the plan. - Patient/Family Goals Return home independently. - Planned Living Setting Upon Discharge Home, to live alone. Transitional Living. Primary caregiver: Pt self. CONCLUSION ON REHABILITATION NECESSITY: I have evaluated patient's pre-admission functional status and, comparing it to the patient's post-ad mission functional status now, I conclude that the pre-admission assessment was accurate. Patient's c ondition on admission supports the medical necessity of admission to IR[facility]. It is safe to proceed with patient's therapy program. SIGNATURE PANEL: (REHAB OFFICE COORDINATOR)
[2020-12-24] MEDS: QUETIAPINE 25 MG TAB PO SCH (20:29)
[2020-12-24] MEDS: ATORVASTATIN 40 MG TAB PO SCH (20:29)
[2020-12-25] MEDS: carvediloL 12.5 MG TAB PO SCH ×2 (05:05→17:15)
[2020-12-25] MEDS: HEPARIN 5000 UNIT/ML 1 ML VIAL SQ SCH ×2 (05:59→18:07)
[2020-12-25] MEDS: BUPROPION HCL XL 150 MG TAB PO SCH (08:17)
[2020-12-25] MEDS: TAMSULOSIN 0.4 MG SR CAP PO SCH (08:18)
[2020-12-25] MEDS: AMLODIPINE 5 MG TAB PO SCH (08:18)
[2020-12-25] MEDS: ASPIRIN 81 MG CHEWABLE TABLET PO SCH (08:18)
[2020-12-25] MEDS: FORMOTEROL IH SCH ×2 (09:33→19:32)
[2020-12-25] MEDS: BUDESONIDE IH SCH ×2 (09:33→19:32)
--- NOTE | 2020-12-25 16:53 | FAST ---
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 Colin Barrera M.D. 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 EATING: EATING - STEP 1: Does the patient complete the activity by him/herself with no assistance (physical, verbal/nonverbal cueing, setup/clean-up)? No. EATING - STEP 2: Does the patient need only setup/clean-up assistance from one helper? No. EATING - STEP 3: Does the patient need only verbal/nonverbal cueing or touching/steadying/contact guard assistance fro m one helper? Yes. 1. [id number] ADMISSION PERFORMANCE: Supervision or touching assistance CODE: 04 ORAL HYGIENE: ORAL HYGIENE - STEP 1: Does the patient complete the activity by him/herself with no assistance (physical, verbal/nonverbal cueing, setup/clean-up)? No. ORAL HYGIENE - STEP 2: Does the patient need only setup/clean-up assistance from one helper? Yes. 1. [id number] ADMISSION PERFORMANCE: Setup or clean-up assistance CODE: 05 TOILETING HYGIENE: TOILETING HYGIENE - STEP 1: Does the patient complete the activity by him/herself with no assistance (physical, verbal/nonverbal cueing, setup/clean-up)? No. TOILETING HYGIENE - STEP 2: Does the patient need only setup/clean-up assistance from one helper? No. TOILETING HYGIENE - STEP 3: Does the patient need only verbal/nonverbal cueing or touching/steadying/contact guard assistance fro m one helper? Yes. 1. [id number] ADMISSION PERFORMANCE: Supervision or touching assistance CODE: 04 BATHING: Not assessed/no information CODE: - DRESSING - UPPER BODY: DRESSING - UPPER BODY - STEP 1: Does the patient complete the activity by him/herself with no assistance (physical, verbal/nonverbal cueing, setup/clean-up)? No. DRESSING - UPPER BODY - STEP 2: Does the patient need only setup/clean-up assistance from one helper? No. DRESSING - UPPER BODY - STEP 3: Does the patient need only verbal/nonverbal cueing or touching/steadying/contact guard assistance fro m one helper? Yes. 1. [id number] ADMISSION PERFORMANCE: Supervision or touching assistance CODE: 04 DRESSING - LOWER BODY: DRESSING - LOWER BODY - STEP 1: Does the patient complete the activity by him/herself with no assistance (physical, verbal/nonverbal cueing, setup/clean-up)? No. DRESSING - LOWER BODY - STEP 2: Does the patient need only setup/clean-up assistance from one helper? No. DRESSING - LOWER BODY - STEP 3: Does the patient need only verbal/nonverbal cueing or touching/steadying/contact guard assistance fro m one helper? Yes. 1. [id number] ADMISSION PERFORMANCE: Supervision or touching assistance CODE: 04 PUTTING ON/TAKING OFF FOOTWEAR: FOOTWEAR - STEP 1: Does the patient complete the activity by him/herself with no assistance (physical, verbal/nonverbal cueing, setup/clean-up)? No. FOOTWEAR - STEP 2: Does the patient need only setup/clean-up assistance from one helper? No. FOOTWEAR - STEP 3: Does the patient need only verbal/nonverbal cueing or touching/steadying/contact guard assistance fro m one helper? Yes. 1. [id number] ADMISSION PERFORMANCE: Supervision or touching assistance CODE: 04 ROLL LEFT AND RIGHT: ROLL LEFT AND RIGHT - STEP 1: Does the patient complete the activity by him/herself with no assistance (physical, verbal/nonverbal cueing, setup/clean-up)? No. ROLL LEFT AND RIGHT - STEP 2: Does the patient need only setup/clean-up assistance from one helper? Yes. 1. [id number] ADMISSION PERFORMANCE: Setup or clean-up assistance CODE: 05 SIT TO LYING: SIT TO LYING - STEP 1: Does the patient complete the activity by him/herself with no assistance (physical, verbal/nonverbal cueing, setup/clean-up)? No. SIT TO LYING - STEP 2: Does the patient need only setup/clean-up assistance from one helper? Yes. 1. [id number] ADMISSION PERFORMANCE: Setup or clean-up assistance CODE: 05 LYING TO SITTING: LYING TO SITTING ON SIDE OF BED - STEP 1: Does the patient complete the activity by him/herself with no assistance (physical, verbal/nonverbal cueing, setup/clean-up)? No. LYING TO SITTING ON SIDE OF BED - STEP 2: Does the patient need only setup/clean-up assistance from one helper? No. LYING TO SITTING ON SIDE OF BED - STEP 3: Does the patient need only verbal/nonverbal cueing or touching/steadying/contact guard assistance fro m one helper? Yes. 1. [id number] ADMISSION PERFORMANCE: Supervision or touching assistance CODE: 04 SIT TO STAND: SIT TO STAND - STEP 1: Does the patient complete the activity by him/herself with no assistance (physical, verbal/nonverbal cueing, setup/clean-up)? No. SIT TO STAND - STEP 2: Does the patient need only setup/clean-up assistance from one helper? No. SIT TO STAND - STEP 3: Does the patient need only verbal/nonverbal cueing or touching/steadying/contact guard assistance fro m one helper? Yes. 1. [id number] ADMISSION PERFORMANCE: Supervision or touching assistance CODE: 04 TRANSFERS: BED, CHAIR: CHAIR/[id number] TRANSFER - STEP 1: Does the patient complete the activity by him/herself with no assistance (physical, verbal/nonverbal cueing, setup/clean-up)? No. CHAIR/[id number] TRANSFER - STEP 2: Does the patient need only setup/clean-up assistance from one helper? Yes. 1. [id number] ADMISSION PERFORMANCE: Setup or clean-up assistance CODE: 05 TRANSFER TOILET: TOILET TRANSFER - STEP 1: Does the patient complete the activity by him/herself with no assistance (physical, verbal/nonverbal cueing, setup/clean-up)? No. TOILET TRANSFER - STEP 2: Does the patient need only setup/clean-up assistance from one helper? No. TOILET TRANSFER - STEP 3: Does the patient need only verbal/nonverbal cueing or touching/steadying/contact guard assistance fro m one helper? Yes. 1. [id number] ADMISSION PERFORMANCE: Supervision or touching assistance CODE: 04 TRANSFERS: CAR: Not assessed/no information CODE: - WALK 10 FEET: Not assessed/no information CODE: - 1 STEP (CURB): Not assessed/no information CODE: - PICKING UP OBJECT: Not assessed/no information CODE: - DOES THE PATIENT USE A WHEELCHAIR/SCOOTER? Q1. DOES THE PATIENT USE A WHEELCHAIR/SCOOTER?: Yes CODE: 1 WHEEL 50 FEET WITH TWO TURNS: WHEEL 50 FEET WITH TWO TURNS - STEP 1: Does the patient complete the activity by him/herself with no assistance (physical, verbal/nonverbal cueing, setup/clean-up)? No. WHEEL 50 FEET WITH TWO TURNS - STEP 2: Does the patient need only setup/clean-up assistance from one helper? No. WHEEL 50 FEET WITH TWO TURNS - STEP 3: Does the patient need only verbal/nonverbal cueing or touching/steadying/contact guard assistance fro m one helper? Yes. 1. [id number] ADMISSION PERFORMANCE: Supervision or touching assistance CODE: 04 INDICATE THE TYPE OF WHEELCHAIR/SCOOTER USED: RR1. INDICATE THE TYPE OF WHEELCHAIR/SCOOTER USED.: Manual CODE: 1 WHEEL 150 FEET: WHEEL 150 FEET - STEP 1: Does the patient complete the activity by him/herself with no assistance (physical, verbal/nonverbal cueing, setup/clean-up)? No. WHEEL 150 FEET - STEP 2: Does the patient need only setup/clean-up assistance from one helper? No. WHEEL 150 FEET - STEP 3: Does the patient need only verbal/nonverbal cueing or touching/steadying/contact guard assistance fro m one helper? Yes. 1. [id number] ADMISSION PERFORMANCE: Supervision or touching assistance CODE: 04 INDICATE THE TYPE OF WHEELCHAIR/SCOOTER USED: SS1. INDICATE THE TYPE OF WHEELCHAIR/SCOOTER USED.: Manual CODE: 1 BLADDER AND BOWEL: H350. BLADDER CONTINENCE (3-DAY ASSESSMENT PERIOD): Incontinent daily (at least once a day) CODE: 3 H400. BOWEL CONTINENCE (3-DAY ASSESSMENT PERIOD): Always continent CODE: 0 SIGNATURE PANEL: The following modified sections: 1. [id number] Admission Performance, 1. [id number] Admission Performance, 1. [id number] Admission Performance, 1. [id number] Admission Performance, 1. WP5140i Admission Performance, 1. OD2132p Admission Performance, 1. [id number] Admission Performance, 1. [id number] Admission Performance , 1. [id number] Admission Performance, 1. LT1808M Admission Performance, 1. [id number] Admission Performanc e, 1. [id number] Admission Performance, 1. [id number] Admission Performance, Q1. Does the patient use a whe elchair/scooter?, 1. [id number] Admission Performance, RR1. Indicate the type of wheelchair/scooter used ., 1. [id number] Admission Performance, Code, SS1. Indicate the type of wheelchair/scooter used., H350. Bladder Continence (3-day assessment period), H400. Bowel Continence (3-day assessment period) were [ electronically] signed by Radha Mosqueda C.N.A. on Sat Dec 25 2020 16:51:36 GMT-0600 (Central Standard Time)
[2020-12-25] MEDS: QUETIAPINE 25 MG TAB PO SCH (19:32)
[2020-12-25] MEDS: ATORVASTATIN 40 MG TAB PO SCH (19:32)
[2020-12-26] MEDS: carvediloL 12.5 MG TAB PO SCH ×2 (05:37→17:18)
[2020-12-26] MEDS: HEPARIN 5000 UNIT/ML 1 ML VIAL SQ SCH ×2 (08:20→18:01)
[2020-12-26] MEDS: BUDESONIDE IH SCH ×2 (08:21→19:37)
[2020-12-26] MEDS: FORMOTEROL IH SCH ×2 (08:21→19:37)
[2020-12-26] MEDS: BUPROPION HCL XL 150 MG TAB PO SCH (08:23)
[2020-12-26] MEDS: AMLODIPINE 5 MG TAB PO SCH (08:23)
[2020-12-26] MEDS: TAMSULOSIN 0.4 MG SR CAP PO SCH (08:23)
[2020-12-26] MEDS: ASPIRIN 81 MG CHEWABLE TABLET PO SCH (08:23)
[2020-12-26] MEDS: QUETIAPINE 25 MG TAB PO SCH (19:38)
[2020-12-26] MEDS: ATORVASTATIN 40 MG TAB PO SCH (19:38)
[2020-12-26] MEDS: NICOTINE 14 MG/PAT TD SCH (20:16)
[2020-12-27] MEDS: carvediloL 12.5 MG TAB PO SCH ×2 (05:01→16:58)
[2020-12-27] MEDS: HEPARIN 5000 UNIT/ML 1 ML VIAL SQ SCH ×2 (06:09→18:08)
[2020-12-27] MEDS: FORMOTEROL IH SCH ×2 (06:35→19:00)
[2020-12-27] MEDS: BUDESONIDE IH SCH ×2 (06:35→19:00)
[2020-12-27] MEDS: AMLODIPINE 5 MG TAB PO SCH (07:50)
[2020-12-27] MEDS: BUPROPION HCL XL 150 MG TAB PO SCH (07:50)
[2020-12-27] MEDS: ASPIRIN 81 MG CHEWABLE TABLET PO SCH (07:51)
[2020-12-27] MEDS: TAMSULOSIN 0.4 MG SR CAP PO SCH (07:51)
[2020-12-27] MEDS: NICOTINE 14 MG/PAT TD SCH (08:54)
--- NOTE | 2020-12-27 16:36 | RAD REPORT ---
EXAM DESCRIPTION: CT - Head Brain Wo Cont - 12/27/2020 4:20 pm CLINICAL HISTORY: R/O Hydrocephalus Headache, drowsiness COMPARISON: Head Brain Wo Cont dated 03/18/2020; HEAD BRAIN W O CONTRAST dated 11/02/2015 TECHNIQUE: All CT scans are performed using dose optimization technique as appropriate and may inclu de automated exposure control or mA/KV adjustment according to patient size. FINDINGS: No intracranial hemorrhage, hydrocephalus or extra-axial fluid collection.Mild generalized brain atrophy is present with moderate periventricular and deep white matter chronic microvascular i schemic changes.No areas of brain edema or evidence of midline shift. The paranasal sinuses and mastoids are clear. The calvarium is intact. IMPRESSION: No acute intracranial abnormality. No significant change since 03/18/2020.
--- NOTE | 2020-12-27 18:34 | R.PN ---
PROGRESS NOTES ENCOUNTER DATE AND TIME: 12/27/2020 18:25 (STONE CARVER) NAME RADHA LEWIS DATE OF : 1955 DATE OF ADMISSION: 12/23/2020 14:46 (STONE CARVER) CVA,ATAXIACHIEF COMPLAINT: Ataxic gait with bilateral lower extremity weakness. SUBJECTIVE: Pt denied any depression. Pt denied any Shortness of Breath. Head CT shows moderate chronic small vessel disease without evidence of acute stroke or hydrocephalus . CBC with differential is essentially normal. Dietary Services Director 1.65, prealbumin 22.0 Ambulated 650' with contact guard assistance using a rolling walker. VITAL SIGNS Temperature: 98.0 F SBP/DBP: 151/75 Pulse: 64 Resp: 16 MEDICATION ALLERGIES: No Known Drug Allergies (NKDA) ENVIRONMENTAL ALLERGIES: - Substance Allergies None Known - Other Allergies None Known NURSING: - Shower allowing shower - Bladder care per protocol - Skin care per protocol PRECAUTIONS: - Weight Bearing Precaution WBAT right LE ACTIVITIES OOB only with supervision THERAPIES: - Occupational Therapy Cognitive Retraining. Visual Perceptual Training. - Dietary and Nutrition Adequate Nutrition. Nutritional Education. Nutritional Supplements. - Speech Therapy Cognitive Training. Expressive Language Skills. Memory Strategies. Receptive Language Skills. Speech Intelligibility Training. PHYSICAL EXAM - Gen Alert and awake Lying in bed No apparent distress Oriented to: person, time, and place - Skin No beakdown No numbness - Eyes No discharge - ENMT No abnormalities - Neck No abnormalities - CVS RRR - Chest Clear - Abd + bowel sounds - GI Soft Deferred - No abnormalities - Ext No significant edema - MSK 4/5 weakness in right upper and lower extremity. - Neuro Hoarse voice, 4/5 weakness in right upper and lower extremity. Ataxic gait. - Psych No abnormalities ASSESSMENT: Pt. is a 65 yo Right-handed male of unknown race.On 12/16/2020 Pt. presented to [facility] with sudden onset of right-side weakness.On 12/16/2020 he was admitted to [facility] with diagnosis CVA,ATAXIA.His impairment category is Stroke 01 - Right Body (Left Brain) (01.2).Pre-morbidly, Pt. was independent/mod-I in Balance, Safety Awareness, Self-Care, and Endurance; and he had good Social Cognition, Transfers Control, Self-Care, and Balance.Currently, he has deficits of Locomotion, Sphinc ter Control, Endurance, Transfers Control, Balance, and Safety Awareness.Pt. is now [facility] to [facility] for acute in-patient rehabilitation in order to maximize patient's funct ional independence in activities of daily living, strength, ROM, and mobility.- Rehab Goal Patient has realistic goal of being discharged at assistance level 7-Ind to reside at Home with Pt s elf. MDM/PLAN: - Physical Therapy Gait dysfunction - to improve, our physical therapists will perform initial evaluation of pt's statu s upon admission and devise an individualized program for Gait Training, and Wheel Chair mobility Inability to transfer - to improve, our physical therapists will perform initial evaluation of pt's status upon admission and devise an individualized program for Bed mobility Need for home safety evaluation - to improve, our physical therapists will perform initial evaluatio n of pt's status upon admission and devise an individualized program for Home Evaluation Need in caregiver upon discharge - to improve, our physical therapists will perform initial evaluati on of pt's status upon admission and devise an individualized program for Caregiver Training New precaution - to improve, our physical therapists will perform initial evaluation of pt's status upon admission and devise an individualized program for Patient precaution education Edema - to improve, our physical therapists will perform initial evaluation of pt's status upon admis juan and devise an individualized program for Elevation Training, and Lymphedema Therapy Poor balance - to improve, our physical therapists will perform initial evaluation of pt's status up on admission and devise an individualized program for Balance Training Poor endurance - to improve, our physical therapists will perform initial evaluation of pt's status upon admission and devise an individualized program for Endurance Training Weakness - to improve, our physical therapists will perform initial evaluation of pt's status upon a dmission and devise an individualized program for Aquatic Therapy, Neuromuscular Reeducation, and Str engthening Achieving independence - to improve, our physical therapists will perform initial evaluation of pt's status upon admission and devise an individualized program for Community Reintegration Activities - Occupational Therapy Need for janitor caretaker - to improve, our occupation therapists will perform initial evaluation of pt's status upon admission and devise an individualized program for Caregiver Training Weakness - to improve, our occupation therapists will perform initial evaluation of pt's status upon admission and devise an individualized program for Aquatic Therapy, Balance, Endurance, UE ROM, and UE strengthening - Other See attached MAR (Medication Administration Record) - Diet Type Continue Regular - Diet - Liquid Texture Continue Regular - Tube Feed Continue N/A - Bladder care per protocol - Weight Bearing Precaution WBAT right LE - Skin care per protocol - Diet - Solid Texture Continue Regular - Shower allowing shower for Dementia, TBI, Stroke, or others FUNCTIONAL STATUS: UPDATED AT WEEKLY TEAM CONFERENCE - Bladder Same accident frequency: 7-Ind - No accidents in the past 7 days - Bowel Same accident frequency: 7-Ind - No accidents in the past 7 days - Walking Same score based on distance walked: 0(N/A) Same score based on distance walked: 2(50-149ft) - Wheelchair Same score based on distance traveled: 0(N/A) FUNCTIONAL STATUS: - Self-Care A. Eating Elvin B. Grooming Elvin C. Bathing Rolando D. Dressing - Upper Rolando E. Dressing - Lower modA F. Toileting Rolando - Sphincter Control G. Bladder control sup H. Bowel control sup - Transfers Control I. Bed/Chair/Wheelchair sup J. Toilet sup K. Tub/Shower Rolando - Locomotion L. Walk/Wheelchair (B) Rolando M. Stairs ADNO - Communication N. Comprehension (B) sup O. Expression (B) sup - Social Cognition P. Social Interaction Elvin Q. Problem Solving sup R. Memory Rolando - Endurance Fair - Balance Fair - Safety Awareness Fair QI SCORES: - Self-Care A. Eating 03-Partial/moderate assistance B. Oral hygiene 03-Partial/moderate assistance C. Toileting hygiene 03-Partial/moderate assistance E. Shower/bathe self 03-Partial/moderate assistance F. Upper body dressing 04-Supervision or touching assistance G. Lower body dressing 03-Partial/moderate assistance H. Putting on/taking off footwear 88-Not attempted due to medical condition or safety concerns - Mobility A. Roll left and right 03-Partial/moderate assistance B. Sit to lying 03-Partial/moderate assistance C. Lying to sitting on side of bed 03-Partial/moderate assistance D. Sit to stand 03-Partial/moderate assistance E. Chair/xvj-ko-ghvog transfer 03-Partial/moderate assistance F. Toilet transfer 03-Partial/moderate assistance G. Car transfer 88-Not attempted due to medical condition or safety concerns I. Walk 10 feet 03-Partial/moderate assistance J. Walk 50 feet with two turns 03-Partial/moderate assistance K. Walk 150 feet 88-Not attempted due to medical condition or safety concerns L. Walking 10 feet on uneven surfaces 88-Not attempted due to medical condition or safety concerns M. 1 step (curb) 88-Not attempted due to medical condition or safety concerns N. 4 steps 88-Not attempted due to medical condition or safety concerns O. 12 steps 88-Not attempted due to medical condition or safety concerns P. Picking up object 88-Not attempted due to medical condition or safety concerns R. Wheel 50 feet with two turns 88-Not attempted due to medical condition or safety concerns S. Wheel 150 feet 88-Not attempted due to medical condition or safety concerns - Bladder and Bowel Bladder continence Bowel continence - Endurance Fair - Balance Fair - Safety Awareness Fair [facility] DEFICITS: Self-Care, Mobility, Endurance, Balance, and Safety Awareness SIGNATURE PANEL: (STONE CARVER)
[2020-12-27] MEDS: ATORVASTATIN 40 MG TAB PO SCH (19:00)
[2020-12-27] MEDS: CRANBERRY FRUIT EXTRACT 200 MG CAP PO SCH (19:00)
[2020-12-27] MEDS: QUETIAPINE 25 MG TAB PO SCH (19:00)
[2020-12-28] MEDS: carvediloL 12.5 MG TAB PO SCH ×2 (05:28→17:13)
[2020-12-28] MEDS: HEPARIN 5000 UNIT/ML 1 ML VIAL SQ SCH ×2 (06:13→18:51)
[2020-12-28] MEDS: NICOTINE 14 MG/PAT TD SCH (06:46)
[2020-12-28] MEDS: FORMOTEROL IH SCH ×2 (06:47→20:44)
[2020-12-28] MEDS: BUDESONIDE IH SCH ×2 (06:47→20:44)
[2020-12-28] MEDS: BUPROPION HCL XL 150 MG TAB PO SCH (07:53)
[2020-12-28] MEDS: AMLODIPINE 5 MG TAB PO SCH (07:53)
[2020-12-28] MEDS: TAMSULOSIN 0.4 MG SR CAP PO SCH (07:53)
[2020-12-28] MEDS: CRANBERRY FRUIT EXTRACT 200 MG CAP PO SCH ×2 (07:53→20:41)
[2020-12-28] MEDS: ASPIRIN 81 MG CHEWABLE TABLET PO SCH (07:54)
[2020-12-28] MEDS ORDERED: MELATONIN 3 MG TABLET PO PRN (15:09)
--- NOTE | 2020-12-28 18:04 | R.PN ---
PROGRESS NOTES ENCOUNTER DATE AND TIME: 12/28/2020 18:02 (SPINNER BOX) NAME RADHA LEWIS DATE OF : 1955 DATE OF ADMISSION: 12/23/2020 14:46 (SPINNER BOX) CVA,ATAXIACHIEF COMPLAINT: Ataxic gait with bilateral lower extremity weakness. SUBJECTIVE: Pt denied any depression. Pt denied any Shortness of Breath. Head CT shows moderate chronic small vessel disease without evidence of acute stroke or hydrocephalus . CBC with differential is essentially normal. [employer] 1.65, prealbumin 22.0 Ambulated 310' with contact guard assistance using a rolling walker. VITAL SIGNS Temperature: 97.3 F SBP/DBP: 162/74 Pulse: 68 Resp: 16 MEDICATION ALLERGIES: No Known Drug Allergies (NKDA) ENVIRONMENTAL ALLERGIES: - Substance Allergies None Known - Other Allergies None Known NURSING: - Shower allowing shower - Bladder care per protocol - Skin care per protocol PRECAUTIONS: - Weight Bearing Precaution WBAT right LE ACTIVITIES OOB only with supervision THERAPIES: - Occupational Therapy Cognitive Retraining. Visual Perceptual Training. - Dietary and Nutrition Adequate Nutrition. Nutritional Education. Nutritional Supplements. - Speech Therapy Cognitive Training. Expressive Language Skills. Memory Strategies. Receptive Language Skills. Speech Intelligibility Training. PHYSICAL EXAM - Gen Alert and awake Lying in bed No apparent distress Oriented to: person, time, and place - Skin No beakdown No numbness - Eyes No discharge - ENMT No abnormalities - Neck No abnormalities - CVS RRR - Chest Clear - Abd + bowel sounds - GI Soft Deferred - No abnormalities - Ext No significant edema - MSK 4/5 weakness in right upper and lower extremity. - Neuro Hoarse voice, 4/5 weakness in right upper and lower extremity. Ataxic gait. - Psych No abnormalities ASSESSMENT: Pt. is a 65 yo Right-handed male of unknown race.On 12/16/2020 Pt. presented to [facility] with sudden onset of right-side weakness.On 12/16/2020 he was admitted to [facility] with diagnosis CVA,ATAXIA.His impairment category is Stroke 01 - Right Body (Left Brain) (01.2).Pre-morbidly, Pt. was independent/mod-I in Balance, Safety Awareness, Self-Care, and Endurance; and he had good Social Cognition, Transfers Control, Self-Care, and Balance.Currently, he has deficits of Locomotion, Sphinc ter Control, Endurance, Transfers Control, Balance, and Safety Awareness.Pt. is now referred to [facility] for acute in-patient rehabilitation in order to maximize patient's funct ional independence in activities of daily living, strength, ROM, and mobility.- Rehab Goal Patient has realistic goal of being discharged at assistance level 7-Ind to reside at Home with Pt s elf. MDM/PLAN: - Physical Therapy Gait dysfunction - to improve, our physical therapists will perform initial evaluation of pt's statu s upon admission and devise an individualized program for Gait Training, and Wheel Chair mobility Inability to transfer - to improve, our physical therapists will perform initial evaluation of pt's status upon admission and devise an individualized program for Bed mobility Need for home safety evaluation - to improve, our physical therapists will perform initial evaluatio n of pt's status upon admission and devise an individualized program for Home Evaluation Need in caregiver upon discharge - to improve, our physical therapists will perform initial evaluati on of pt's status upon admission and devise an individualized program for Caregiver Training New precaution - to improve, our physical therapists will perform initial evaluation of pt's status upon admission and devise an individualized program for Patient precaution education Edema - to improve, our physical therapists will perform initial evaluation of pt's status upon admi ssion and devise an individualized program for Elevation Training, and Lymphedema Therapy Poor balance - to improve, our physical therapists will perform initial evaluation of pt's status up on admission and devise an individualized program for Balance Training Poor endurance - to improve, our physical therapists will perform initial evaluation of pt's status upon admission and devise an individualized program for Endurance Training Weakness - to improve, our physical therapists will perform initial evaluation of pt's status upon a dmission and devise an individualized program for Aquatic Therapy, Neuromuscular Reeducation, and Str engthening Achieving independence - to improve, our physical therapists will perform initial evaluation of pt's status upon admission and devise an individualized program for Community Reintegration Activities - Occupational Therapy Need for healthcare administration internship - to improve, our occupation therapists will perform initial evaluation of pt's status upon admission and devise an individualized program for Caregiver Training Weakness - to improve, our occupation therapists will perform initial evaluation of pt's status upon admission and devise an individualized program for Aquatic Therapy, Balance, Endurance, UE ROM, and UE strengthening - Other See attached MAR (Medication Administration Record) - Diet Type Continue Regular - Diet - Liquid Texture Continue Regular - Tube Feed Continue N/A - Bladder care per protocol - Weight Bearing Precaution WBAT right LE - Skin care per protocol - Diet - Solid Texture Continue Regular - Shower allowing shower for Dementia, TBI, Stroke, or others FUNCTIONAL STATUS: UPDATED AT WEEKLY TEAM CONFERENCE - Bladder Same accident frequency: 7-Ind - No accidents in the past 7 days - Bowel Same accident frequency: 7-Ind - No accidents in the past 7 days - Walking Same score based on distance walked: 0(N/A) Same score based on distance walked: 2(50-149ft) - Wheelchair Same score based on distance traveled: 0(N/A) FUNCTIONAL STATUS: - Self-Care A. Eating Elvin B. Grooming Elvin C. Bathing Rolando D. Dressing - Upper Rolando E. Dressing - Lower modA F. Toileting Rolando - Sphincter Control G. Bladder control sup H. Bowel control sup - Transfers Control I. Bed/Chair/Wheelchair sup J. Toilet sup K. Tub/Shower Rolando - Locomotion L. Walk/Wheelchair (B) Rolando M. Stairs ADNO - Communication N. Comprehension (B) sup O. Expression (B) sup - Social Cognition P. Social Interaction Elvin Q. Problem Solving sup R. Memory Rolando - Endurance Fair - Balance Fair - Safety Awareness Fair QI SCORES: - Self-Care A. Eating 03-Partial/moderate assistance B. Oral hygiene 03-Partial/moderate assistance C. Toileting hygiene 03-Partial/moderate assistance E. Shower/bathe self 03-Partial/moderate assistance F. Upper body dressing 04-Supervision or touching assistance G. Lower body dressing 03-Partial/moderate assistance H. Putting on/taking off footwear 88-Not attempted due to medical condition or safety concerns - Mobility A. Roll left and right 03-Partial/moderate assistance B. Sit to lying 03-Partial/moderate assistance C. Lying to sitting on side of bed 03-Partial/moderate assistance D. Sit to stand 03-Partial/moderate assistance E. Chair/kjj-yr-tayrn transfer 03-Partial/moderate assistance F. Toilet transfer 03-Partial/moderate assistance G. Car transfer 88-Not attempted due to medical condition or safety concerns I. Walk 10 feet 03-Partial/moderate assistance J. Walk 50 feet with two turns 03-Partial/moderate assistance K. Walk 150 feet 88-Not attempted due to medical condition or safety concerns L. Walking 10 feet on uneven surfaces 88-Not attempted due to medical condition or safety concerns M. 1 step (curb) 88-Not attempted due to medical condition or safety concerns N. 4 steps 88-Not attempted due to medical condition or safety concerns O. 12 steps 88-Not attempted due to medical condition or safety concerns P. Picking up object 88-Not attempted due to medical condition or safety concerns R. Wheel 50 feet with two turns 88-Not attempted due to medical condition or safety concerns S. Wheel 150 feet 88-Not attempted due to medical condition or safety concerns - Bladder and Bowel Bladder continence Bowel continence - Endurance Fair - Balance Fair - Safety Awareness Fair [facility] DEFICITS: Self-Care, Mobility, Endurance, Balance, and Safety Awareness SIGNATURE PANEL: (SPINNER BOX)
--- NOTE | 2020-12-28 19:58 | RAD REPORT ---
EXAM DESCRIPTION: MRI - Brain Wo Cont - 12/28/2020 7:31 pm CLINICAL HISTORY: R/O Hydrocephalus COMPARISON: Head Brain Wo Cont dated 12/27/2020; Head Brain Wo Cont dated 03/18/2020 TECHNIQUE: Sagittal T1-weighted images were obtained along with axial PD, heavily T2-weighted and T2 -FLAIR images. Axial DWI and ADC mapping sequences were also obtained along with coronal heavily T2-w eighted images. FINDINGS: No intracranial hemorrhage, mass or acute infarction. There is no edema or shift of midlin e structures. No cortical edema or sulcal effacement. Atrophy changes are prominent for the patient's age. Ventricles do appear to be in proportion to the amount of atrophy. . Extensive chronic ischemic change is seen in the cerebral white matter and to a lesser degree thalamus and basal ganglia tissue s. No significant brainstem chronic ischemic change. No significant atrophy of the cerebellum seen. G ray-matter/white matter junction is preserved. Signal voids are seen as a normal finding in the major intracranial vessels. No acute globe or orbital content abnormality. No sella or supra sella abnormality. Mastoid air cells and paranasal sinuses are clear. IMPRESSION: Patient has advanced for age atrophy and advanced for age chronic ischemic change in the cerebral white matter. Ventricles do appear to be in proportion to the amount of atrophy and not substantially different fro m comparison studies. No acute infarction, mass or other acute intracranial finding.
[2020-12-28] MEDS: ATORVASTATIN 40 MG TAB PO SCH (20:42)
[2020-12-28] MEDS: QUETIAPINE 25 MG TAB PO SCH (20:42)
[2020-12-28] MEDS: MELATONIN 3 MG TABLET PO SCH (20:44)
[2020-12-29] MEDS: carvediloL 12.5 MG TAB PO SCH ×2 (05:09→17:25)
[2020-12-29] MEDS: HEPARIN 5000 UNIT/ML 1 ML VIAL SQ SCH ×2 (07:52→20:00)
[2020-12-29] MEDS: NICOTINE 14 MG/PAT TD SCH (08:26)
[2020-12-29] MEDS: BUPROPION HCL XL 150 MG TAB PO SCH (08:26)
[2020-12-29] MEDS: ASPIRIN 81 MG CHEWABLE TABLET PO SCH (08:26)
[2020-12-29] MEDS: TAMSULOSIN 0.4 MG SR CAP PO SCH (08:26)
[2020-12-29] MEDS: AMLODIPINE 5 MG TAB PO SCH (08:26)
[2020-12-29] MEDS: CRANBERRY FRUIT EXTRACT 200 MG CAP PO SCH ×2 (08:27→20:45)
[2020-12-29] MEDS: FORMOTEROL IH SCH ×2 (08:30→20:46)
[2020-12-29] MEDS: BUDESONIDE IH SCH ×2 (08:30→20:46)
--- NOTE | 2020-12-29 18:01 | R.PN ---
PROGRESS NOTES ENCOUNTER DATE AND TIME: 12/29/2020 17:58 (RIPPER OPERATOR) NAME RADHA LEWIS DATE OF : 1955 DATE OF ADMISSION: 12/23/2020 14:46 (RIPPER OPERATOR) CVA,ATAXIACHIEF COMPLAINT: Ataxic gait with bilateral lower extremity weakness. SUBJECTIVE: Pt denied any depression. Pt denied any Shortness of Breath. Head CT shows moderate chronic small vessel disease without evidence of acute stroke or hydrocephalus . CBC with differential is essentially normal. [employer] 1.65, prealbumin 22.0 Ambulated 950' with standby assistance using a rollator. VITAL SIGNS Temperature: 97.2 F SBP/DBP: 133/70 Pulse: 64 Resp: 16 MEDICATION ALLERGIES: No Known Drug Allergies (NKDA) ENVIRONMENTAL ALLERGIES: - Substance Allergies None Known - Other Allergies None Known NURSING: - Shower allowing shower - Bladder care per protocol - Skin care per protocol PRECAUTIONS: - Weight Bearing Precaution WBAT right LE ACTIVITIES OOB only with supervision THERAPIES: - Occupational Therapy Cognitive Retraining. Visual Perceptual Training. - Dietary and Nutrition Adequate Nutrition. Nutritional Education. Nutritional Supplements. - Speech Therapy Cognitive Training. Expressive Language Skills. Memory Strategies. Receptive Language Skills. Speech Intelligibility Training. PHYSICAL EXAM - Gen Alert and awake Lying in bed No apparent distress Oriented to: person, time, and place - Skin No beakdown No numbness - Eyes No discharge - ENMT No abnormalities - Neck No abnormalities - CVS RRR - Chest Clear - Abd + bowel sounds - GI Soft Deferred - No abnormalities - Ext No significant edema - MSK 4/5 weakness in right upper and lower extremity. - Neuro Hoarse voice, 4/5 weakness in right upper and lower extremity. Ataxic gait. - Psych No abnormalities ASSESSMENT: Pt. is a 65 yo Right-handed male of unknown race.On 12/16/2020 Pt. presented to [facility] with sudden onset of right-side weakness.On 12/16/2020 he was admitted to [facility] with diagnosis CVA,ATAXIA.His impairment category is Stroke 01 - Right Body (Left Brain) (01.2).Pre-morbidly, Pt. was independent/mod-I in Balance, Safety Awareness, Self-Care, and Endurance; and he had good Social Cognition, Transfers Control, Self-Care, and Balance.Currently, he has deficits of Locomotion, Sphinc ter Control, Endurance, Transfers Control, Balance, and Safety Awareness.Pt. is now referred to [facility] for acute in-patient rehabilitation in order to maximize patient's funct ional independence in activities of daily living, strength, ROM, and mobility.- Rehab Goal Patient has realistic goal of being discharged at assistance level 7-Ind to reside at Home with Pt s elf. MDM/PLAN: - Physical Therapy Gait dysfunction - to improve, our physical therapists will perform initial evaluation of pt's statu s upon admission and devise an individualized program for Gait Training, and Wheel Chair mobility Inability to transfer - to improve, our physical therapists will perform initial evaluation of pt's status upon admission and devise an individualized program for Bed mobility Need for home safety evaluation - to improve, our physical therapists will perform initial evaluatio n of pt's status upon admission and devise an individualized program for Home Evaluation Need in caregiver upon discharge - to improve, our physical therapists will perform initial evaluati on of pt's status upon admission and devise an individualized program for Caregiver Training New precaution - to improve, our physical therapists will perform initial evaluation of pt's status upon admission and devise an individualized program for Patient precaution education Edema - to improve, our physical therapists will perform initial evaluation of pt's status upon admi ssion and devise an individualized program for Elevation Training, and Lymphedema Therapy Poor balance - to improve, our physical therapists will perform initial evaluation of pt's status up on admission and devise an individualized program for Balance Training Poor endurance - to improve, our physical therapists will perform initial evaluation of pt's status upon admission and devise an individualized program for Endurance Training Weakness - to improve, our physical therapists will perform initial evaluation of pt's status upon a dmission and devise an individualized program for Aquatic Therapy, Neuromuscular Reeducation, and Str engthening Achieving independence - to improve, our physical therapists will perform initial evaluation of pt's status upon admission and devise an individualized program for Community Reintegration Activities - Occupational Therapy Need for associate director career services - to improve, our occupation therapists will perform initial evaluation of pt's status upon admission and devise an individualized program for Caregiver Training Weakness - to improve, our occupation therapists will perform initial evaluation of pt's status upon admission and devise an individualized program for Aquatic Therapy, Balance, Endurance, UE ROM, and UE strengthening - Other See attached MAR (Medication Administration Record) - Diet Type Continue Regular - Diet - Liquid Texture Continue Regular - Tube Feed Continue N/A - Bladder care per protocol - Weight Bearing Precaution WBAT right LE - Skin care per protocol - Diet - Solid Texture Continue Regular - Shower allowing shower for Dementia, TBI, Stroke, or others FUNCTIONAL STATUS: UPDATED AT WEEKLY TEAM CONFERENCE - Bladder Same accident frequency: 7-Ind - No accidents in the past 7 days - Bowel Same accident frequency: 7-Ind - No accidents in the past 7 days - Walking Same score based on distance walked: 0(N/A) Same score based on distance walked: 2(50-149ft) - Wheelchair Same score based on distance traveled: 0(N/A) FUNCTIONAL STATUS: - Self-Care A. Eating Elvin B. Grooming Elvin C. Bathing Rolando D. Dressing - Upper Rolando E. Dressing - Lower modA F. Toileting Rolando - Sphincter Control G. Bladder control sup H. Bowel control sup - Transfers Control I. Bed/Chair/Wheelchair sup J. Toilet sup K. Tub/Shower Rolando - Locomotion L. Walk/Wheelchair (B) Rolando M. Stairs ADNO - Communication N. Comprehension (B) sup O. Expression (B) sup - Social Cognition P. Social Interaction Elvin Q. Problem Solving sup R. Memory Rolando - Endurance Fair - Balance Fair - Safety Awareness Fair QI SCORES: - Self-Care A. Eating 03-Partial/moderate assistance B. Oral hygiene 03-Partial/moderate assistance C. Toileting hygiene 03-Partial/moderate assistance E. Shower/bathe self 03-Partial/moderate assistance F. Upper body dressing 04-Supervision or touching assistance G. Lower body dressing 03-Partial/moderate assistance H. Putting on/taking off footwear 88-Not attempted due to medical condition or safety concerns - Mobility A. Roll left and right 03-Partial/moderate assistance B. Sit to lying 03-Partial/moderate assistance C. Lying to sitting on side of bed 03-Partial/moderate assistance D. Sit to stand 03-Partial/moderate assistance E. Chair/[id number] transfer 03-Partial/moderate assistance F. Toilet transfer 03-Partial/moderate assistance G. Car transfer 88-Not attempted due to medical condition or safety concerns I. Walk 10 feet 03-Partial/moderate assistance J. Walk 50 feet with two turns 03-Partial/moderate assistance K. Walk 150 feet 88-Not attempted due to medical condition or safety concerns L. Walking 10 feet on uneven surfaces 88-Not attempted due to medical condition or safety concerns M. 1 step (curb) 88-Not attempted due to medical condition or safety concerns N. 4 steps 88-Not attempted due to medical condition or safety concerns O. 12 steps 88-Not attempted due to medical condition or safety concerns P. Picking up object 88-Not attempted due to medical condition or safety concerns R. Wheel 50 feet with two turns 88-Not attempted due to medical condition or safety concerns S. Wheel 150 feet 88-Not attempted due to medical condition or safety concerns - Bladder and Bowel Bladder continence Bowel continence - Endurance Fair - Balance Fair - Safety Awareness Fair [facility] DEFICITS: Self-Care, Mobility, Endurance, Balance, and Safety Awareness SIGNATURE PANEL: (RIPPER OPERATOR)
[2020-12-29] MEDS: ATORVASTATIN 40 MG TAB PO SCH (20:46)
[2020-12-29] MEDS: MELATONIN 3 MG TABLET PO SCH (20:46)
[2020-12-29] MEDS: QUETIAPINE 25 MG TAB PO SCH (20:46)
[2020-12-30] MEDS: carvediloL 12.5 MG TAB PO SCH ×2 (05:13→17:24)
[2020-12-30] MEDS: NICOTINE 14 MG/PAT TD SCH (07:15)
[2020-12-30 07:22] LABS: Absolute Lymphocytes (CBC) 2.5 K/uL (0.7-4.9); Basophils % 1.3 % (0-1.3); Hematocrit 41.6 % (39.6-49.0); Lymphocytes % 32.9 % (15.3-44.8); MPV 11.4 fL (7.6-11.3); RBC Red Blood Cell Count 4.72 M/uL (4.33-5.43)
[2020-12-30] MEDS: HEPARIN 5000 UNIT/ML 1 ML VIAL SQ SCH ×2 (07:30→18:07)
[2020-12-30 07:39] LABS: Albumin 3.3 g/dL (3.4-5.0); Magnesium 2.2 mg/dL (1.8-2.4); Potassium 4.7 mmol/L (3.5-5.1); Prealbumin 23.9 mg/dL (20-40)
[2020-12-30] MEDS: FORMOTEROL IH SCH ×2 (08:44→19:04)
[2020-12-30] MEDS: BUDESONIDE IH SCH ×2 (08:44→19:04)
[2020-12-30] MEDS: TAMSULOSIN 0.4 MG SR CAP PO SCH (08:46)
[2020-12-30] MEDS: BUPROPION HCL XL 150 MG TAB PO SCH (08:46)
[2020-12-30] MEDS: CRANBERRY FRUIT EXTRACT 200 MG CAP PO SCH ×2 (08:46→19:04)
[2020-12-30] MEDS: ASPIRIN 81 MG CHEWABLE TABLET PO SCH (08:46)
[2020-12-30] MEDS: AMLODIPINE 5 MG TAB PO SCH (08:47)
--- NOTE | 2020-12-30 17:53 | R.PN ---
PROGRESS NOTES ENCOUNTER DATE AND TIME: 12/30/2020 17:47 (TIMBER KILLER) NAME RADHA LEWIS DATE OF : 1955 DATE OF ADMISSION: 12/23/2020 14:46 (TIMBER KILLER) CVA,ATAXIACHIEF COMPLAINT: Ataxic gait with bilateral lower extremity weakness. SUBJECTIVE: Pt denied any depression. Pt denied any Shortness of Breath. Head CT shows moderate chronic small vessel disease without evidence of acute stroke or hydrocephalus . CBC with differential is essentially normal. Clinical Trial Specialist 1.90, prealbumin 23.9, UA is negative. + cultures bu t asymptomatic. Ambulated 250' with standby assistance using a rollator. VITAL SIGNS Temperature: 98.1 F SBP/DBP: 142/68 Pulse: 78 Resp: 16 MEDICATION ALLERGIES: No Known Drug Allergies (NKDA) ENVIRONMENTAL ALLERGIES: - Substance Allergies None Known - Other Allergies None Known NURSING: - Shower allowing shower - Bladder care per protocol - Skin care per protocol PRECAUTIONS: - Weight Bearing Precaution WBAT right LE ACTIVITIES OOB only with supervision THERAPIES: - Occupational Therapy Cognitive Retraining. Visual Perceptual Training. - Dietary and Nutrition Adequate Nutrition. Nutritional Education. Nutritional Supplements. - Speech Therapy Cognitive Training. Expressive Language Skills. Memory Strategies. Receptive Language Skills. Speech Intelligibility Training. PHYSICAL EXAM - Gen Alert and awake Lying in bed No apparent distress Oriented to: person, time, and place - Skin No beakdown No numbness - Eyes No discharge - ENMT No abnormalities - Neck No abnormalities - CVS RRR - Chest Clear - Abd + bowel sounds - GI Soft Deferred - No abnormalities - Ext No significant edema - MSK 4/5 weakness in right upper and lower extremity. - Neuro Hoarse voice, 4/5 weakness in right upper and lower extremity. Ataxic gait. - Psych No abnormalities ASSESSMENT: Pt. is a 65 yo Right-handed male of unknown race.On 12/16/2020 Pt. presented to [facility] with sudden onset of right-side weakness.On 12/16/2020 he was admitted to [facility] with diagnosis CVA,ATAXIA.His impairment category is Stroke 01 - Right Body (Left Brain) (01.2).Pre-morbidly, Pt. was independent/mod-I in Balance, Safety Awareness, Self-Care, and Endurance; and he had good Social Cognition, Transfers Control, Self-Care, and Balance.Currently, he has deficits of Locomotion, Sphinc ter Control, Endurance, Transfers Control, Balance, and Safety Awareness.Pt. is now referred to [facility] for acute in-patient rehabilitation in order to maximize patient's funct ional independence in activities of daily living, strength, ROM, and mobility.- Rehab Goal Patient has realistic goal of being discharged at assistance level 7-Ind to reside at Home with Pt s elf. MDM/PLAN: - Physical Therapy Gait dysfunction - to improve, our physical therapists will perform initial evaluation of pt's statu s upon admission and devise an individualized program for Gait Training, and Wheel Chair mobility Inability to transfer - to improve, our physical therapists will perform initial evaluation of pt's status upon admission and devise an individualized program for Bed mobility Need for home safety evaluation - to improve, our physical therapists will perform initial evaluatio n of pt's status upon admission and devise an individualized program for Home Evaluation Need in caregiver upon discharge - to improve, our physical therapists will perform initial evaluati on of pt's status upon admission and devise an individualized program for Caregiver Training New precaution - to improve, our physical therapists will perform initial evaluation of pt's status upon admission and devise an individualized program for Patient precaution education Edema - to improve, our physical therapists will perform initial evaluation of pt's status upon admi ssion and devise an individualized program for Elevation Training, and Lymphedema Therapy Poor balance - to improve, our physical therapists will perform initial evaluation of pt's status up on admission and devise an individualized program for Balance Training Poor endurance - to improve, our physical therapists will perform initial evaluation of pt's status upon admission and devise an individualized program for Endurance Training Weakness - to improve, our physical therapists will perform initial evaluation of pt's status upon a dmission and devise an individualized program for Aquatic Therapy, Neuromuscular Reeducation, and Str engthening Achieving independence - to improve, our physical therapists will perform initial evaluation of pt's status upon admission and devise an individualized program for Community Reintegration Activities - Occupational Therapy Need for companion caregiver - to improve, our occupation therapists will perform initial evaluation of pt's status upon admission and devise an individualized program for Caregiver Training Weakness - to improve, our occupation therapists will perform initial evaluation of pt's status upon admission and devise an individualized program for Aquatic Therapy, Balance, Endurance, UE ROM, and UE strengthening - Other See attached MAR (Medication Administration Record) - Diet Type Continue Regular - Diet - Liquid Texture Continue Regular - Tube Feed Continue N/A - Bladder care per protocol - Weight Bearing Precaution WBAT right LE - Skin care per protocol - Diet - Solid Texture Continue Regular - Shower allowing shower for Dementia, TBI, Stroke, or others FUNCTIONAL STATUS: UPDATED AT WEEKLY TEAM CONFERENCE - Bladder Same accident frequency: 7-Ind - No accidents in the past 7 days - Bowel Same accident frequency: 7-Ind - No accidents in the past 7 days - Walking Same score based on distance walked: 0(N/A) Same score based on distance walked: 2(50-149ft) - Wheelchair Same score based on distance traveled: 0(N/A) FUNCTIONAL STATUS: - Self-Care A. Eating Elvin B. Grooming Elvin C. Bathing Rolando D. Dressing - Upper Rolando E. Dressing - Lower modA F. Toileting Rolando - Sphincter Control G. Bladder control sup H. Bowel control sup - Transfers Control I. Bed/Chair/Wheelchair sup J. Toilet sup K. Tub/Shower Rolando - Locomotion L. Walk/Wheelchair (B) Rolando M. Stairs ADNO - Communication N. Comprehension (B) sup O. Expression (B) sup - Social Cognition P. Social Interaction Elvin Q. Problem Solving sup R. Memory Rolando - Endurance Fair - Balance Fair - Safety Awareness Fair QI SCORES: - Self-Care A. Eating 03-Partial/moderate assistance B. Oral hygiene 03-Partial/moderate assistance C. Toileting hygiene 03-Partial/moderate assistance E. Shower/bathe self 03-Partial/moderate assistance F. Upper body dressing 04-Supervision or touching assistance G. Lower body dressing 03-Partial/moderate assistance H. Putting on/taking off footwear 88-Not attempted due to medical condition or safety concerns - Mobility A. Roll left and right 03-Partial/moderate assistance B. Sit to lying 03-Partial/moderate assistance C. Lying to sitting on side of bed 03-Partial/moderate assistance D. Sit to stand 03-Partial/moderate assistance E. Chair/[id number] transfer 03-Partial/moderate assistance F. Toilet transfer 03-Partial/moderate assistance G. Car transfer 88-Not attempted due to medical condition or safety concerns I. Walk 10 feet 03-Partial/moderate assistance J. Walk 50 feet with two turns 03-Partial/moderate assistance K. Walk 150 feet 88-Not attempted due to medical condition or safety concerns L. Walking 10 feet on uneven surfaces 88-Not attempted due to medical condition or safety concerns M. 1 step (curb) 88-Not attempted due to medical condition or safety concerns N. 4 steps 88-Not attempted due to medical condition or safety concerns O. 12 steps 88-Not attempted due to medical condition or safety concerns P. Picking up object 88-Not attempted due to medical condition or safety concerns R. Wheel 50 feet with two turns 88-Not attempted due to medical condition or safety concerns S. Wheel 150 feet 88-Not attempted due to medical condition or safety concerns - Bladder and Bowel Bladder continence Bowel continence - Endurance Fair - Balance Fair - Safety Awareness Fair CURRENT [facility]. DEFICITS: Self-Care, Mobility, Endurance, Balance, and Safety Awareness SIGNATURE PANEL: (TIMBER KILLER)
[2020-12-30] MEDS: ATORVASTATIN 40 MG TAB PO SCH (19:03)
[2020-12-30] MEDS: MELATONIN 3 MG TABLET PO SCH (19:04)
[2020-12-30] MEDS: QUETIAPINE 25 MG TAB PO SCH (19:04)
[2020-12-31] MEDS: carvediloL 12.5 MG TAB PO SCH ×2 (05:26→17:03)
[2020-12-31] MEDS: HEPARIN 5000 UNIT/ML 1 ML VIAL SQ SCH ×2 (05:58→18:58)
[2020-12-31] MEDS: FORMOTEROL IH SCH ×2 (06:36→19:38)
[2020-12-31] MEDS: BUDESONIDE IH SCH ×2 (06:36→19:38)
[2020-12-31] MEDS: AMLODIPINE 5 MG TAB PO SCH (07:33)
[2020-12-31] MEDS: TAMSULOSIN 0.4 MG SR CAP PO SCH (07:33)
[2020-12-31] MEDS: ASPIRIN 81 MG CHEWABLE TABLET PO SCH (07:33)
[2020-12-31] MEDS: BUPROPION HCL XL 150 MG TAB PO SCH (07:33)
[2020-12-31] MEDS: CRANBERRY FRUIT EXTRACT 200 MG CAP PO SCH ×2 (07:33→19:37)
[2020-12-31] MEDS: NICOTINE 14 MG/PAT TD SCH (09:32)
--- NOTE | 2020-12-31 09:52 | P.RH.PN ---
Estimated Length of Stay: 18 Expected Discharge Date: 01/09/21 Discharge Disposition Plan: Home Family Support: Yes Director Of Institutional Giving Goal: Mobility, Transfers, Self Care Vital Signs: Last Vital Signs Temp 97.8 F 12/31/20 08:23 Pulse 67 12/31/20 08:23 Resp 18 12/31/20 08:23 BP 144/70 H 12/31/20 08:23 Pulse Ox 99 12/31/20 08:23 Laboratory: Laboratory Last Values WBC 7.50 K/uL (4.3-10.9) D 12/30/20 07:10 RBC 4.72 M/uL (4.33-5.43) 12/30/20 07:10 Hgb 13.4 g/dL (13.6-17.9) L 12/30/20 07:10 Hct 41.6 % (39.6-49.0) 12/30/20 07:10 MCV 88.0 fL (80-100) 12/30/20 07:10 MCH 28.4 pg (27.0-35.0) 12/30/20 07:10 MCHC 32.2 g/dL (32.0-36.0) 12/30/20 07:10 RDW 14.1 % (12.1-15.2) 12/30/20 07:10 Plt Count 227 K/uL (152-406) 12/30/20 07:10 MPV 11.4 fL (7.6-11.3) H 12/30/20 07:10 Neutrophils % 51.7 % (41.7-73.7) 12/30/20 07:10 Lymphocytes % 32.9 % (15.3-44.8) 12/30/20 07:10 Monocytes % 10.1 % (3.3-12.3) 12/30/20 07:10 Eosinophils % 4.0 % (0-4.4) 12/30/20 07:10 Basophils % 1.3 % (0-1.3) 12/30/20 07:10 Absolute Neutrophils 3.9 K/uL (1.8-8.0) 12/30/20 07:10 Absolute Lymphocytes 2.5 K/uL (0.7-4.9) 12/30/20 07:10 Absolute Monocytes 0.8 K/uL (0.1-1.3) 12/30/20 07:10 Absolute Eosinophils 0.3 K/uL (0-0.5) 12/30/20 07:10 Absolute Basophils 0.1 K/uL (0-0.5) 12/30/20 07:10 Sodium 145 mmol/L (136-145) 12/30/20 07:10 Potassium 4.7 mmol/L (3.5-5.1) 12/30/20 07:10 Chloride 117 mmol/L (98-107) H 12/30/20 07:10 Carbon Dioxide 23 mmol/L (21-32) 12/30/20 07:10 BUN 27 mg/dL (7-18) H 12/30/20 07:10 Creatinine 1.90 mg/dL (0.55-1.3) H 12/30/20 07:10 Estimated GFR 43 mL/min (=/>90) L 12/30/20 07:10 Glucose 94 mg/dL (74-106) 12/30/20 07:10 Calcium 8.8 mg/dL (8.5-10.1) 12/30/20 07:10 Magnesium 2.2 mg/dL (1.8-2.4) 12/30/20 07:10 Albumin 3.3 g/dL (3.4-5.0) L 12/30/20 07:10 Prealbumin 23.9 mg/dL (20-40) 12/30/20 07:10 Urine Color Yellow 12/23/20 16:15 Urine Appearance Clear 12/23/20 16:15 Urine pH 6.5 (5.0-7.0) 12/23/20 16:15 Ur Specific [place] 1.010 (1.005-1.030) 12/23/20 16:15 Glucose (UA)(Auto) Negative (NEG) 12/23/20 16:15 Urine Ketones Negative (NEG) 12/23/20 16:15 Urine Blood Negative (NEG) 12/23/20 16:15 Urine Nitrite Negative (NEG) 12/23/20 16:15 Urine Bilirubin Negative (NEG) 12/23/20 16:15 Urine Urobilinogen 1.0 mg/dL (0.2-1.0) 12/23/20 16:15 Ur Leukocyte Esterase Negative (NEG) 12/23/20 16:15 Urine RBC <5 /HPF (NONE SEEN) 12/23/20 16:15 Urine WBC None seen /HPF (<5) 12/23/20 16:15 Ur Squamous Epith Cells <5 /HPF (NONE SEEN) 12/23/20 16:15 Urine Bacteria None seen /HPF (NONE SEEN) 12/23/20 16:15 Urine Culture Reflexed Not needed 12/23/20 16:15 Urine Total Protein Negative (NEG) 12/23/20 16:15 SARS-CoV-2 RNA (RT-PCR) Negative (NEGATIVE) 12/23/20 16:00 Weight: 141 lb 6.4 oz Wound Present: No Closed Surgical Incision Present: No Negative Pressure Wound Therapy Present: No Physician Update: He is a minimum assistance with all therapy and may require someone to help at home as he is not safe to go home alone. He walks 250' with standby assistance. He gait is mildly unsteady with shuffling. Functional Improvement: pt has demonstrated consistent progress throughout the duration of therapy. pt has improved his functional performance, balance, and cognitive alertness. pt still exhibits some safety concerns regarding decision making. pt does require cuing during ambulation and functional transfers for safety. Continued PT services are necessary to enhance pt's safety awareness. Summary: Patient's care plan and snf goals have been reviewed and revised as necessary. Please see the Rehabilitation Signature page for all necessary signatures.
[2020-12-31] MEDS: MELATONIN 3 MG TABLET PO SCH (19:38)
[2020-12-31] MEDS: ATORVASTATIN 40 MG TAB PO SCH (19:38)
[2020-12-31] MEDS: QUETIAPINE 25 MG TAB PO SCH (19:38)
[2021-01-01 05:37] VITALS: BMI 18.5
[2021-01-01] MEDS: carvediloL 12.5 MG TAB PO SCH ×2 (05:45→17:20)
[2021-01-01] MEDS: HEPARIN 5000 UNIT/ML 1 ML VIAL SQ SCH ×2 (06:18→18:26)
[2021-01-01] MEDS: FORMOTEROL IH SCH ×2 (07:02→20:00)
[2021-01-01] MEDS: BUDESONIDE IH SCH ×2 (07:02→20:00)
[2021-01-01] MEDS: NICOTINE 14 MG/PAT TD SCH (08:00)
[2021-01-01] MEDS: CRANBERRY FRUIT EXTRACT 200 MG CAP PO SCH ×2 (08:20→20:03)
[2021-01-01] MEDS: ASPIRIN 81 MG CHEWABLE TABLET PO SCH (08:20)
[2021-01-01] MEDS: AMLODIPINE 5 MG TAB PO SCH (08:20)
[2021-01-01] MEDS: BUPROPION HCL XL 150 MG TAB PO SCH (08:20)
[2021-01-01] MEDS: TAMSULOSIN 0.4 MG SR CAP PO SCH (08:21)
[2021-01-01] MEDS: ATORVASTATIN 40 MG TAB PO SCH (20:03)
[2021-01-01] MEDS: QUETIAPINE 25 MG TAB PO SCH (20:03)
[2021-01-01] MEDS: MELATONIN 3 MG TABLET PO SCH (20:03)
[2021-01-02] MEDS: carvediloL 12.5 MG TAB PO SCH ×2 (05:24→17:09)
[2021-01-02] MEDS: HEPARIN 5000 UNIT/ML 1 ML VIAL SQ SCH ×2 (07:17→18:06)
[2021-01-02] MEDS: FORMOTEROL IH SCH ×2 (08:05→20:00)
[2021-01-02] MEDS: BUDESONIDE IH SCH ×2 (08:05→20:00)
[2021-01-02] MEDS: NICOTINE 14 MG/PAT TD SCH (08:06)
[2021-01-02] MEDS: ASPIRIN 81 MG CHEWABLE TABLET PO SCH (08:07)
[2021-01-02] MEDS: CRANBERRY FRUIT EXTRACT 200 MG CAP PO SCH ×2 (08:07→20:03)
[2021-01-02] MEDS: AMLODIPINE 5 MG TAB PO SCH (08:07)
[2021-01-02] MEDS: TAMSULOSIN 0.4 MG SR CAP PO SCH (08:07)
[2021-01-02] MEDS: BUPROPION HCL XL 150 MG TAB PO SCH (08:07)
[2021-01-02] MEDS: QUETIAPINE 25 MG TAB PO SCH (20:03)
[2021-01-02] MEDS: MELATONIN 3 MG TABLET PO SCH (20:03)
[2021-01-02] MEDS: ATORVASTATIN 40 MG TAB PO SCH (20:03)
[2021-01-03] MEDS: carvediloL 12.5 MG TAB PO SCH ×2 (05:13→17:06)
[2021-01-03] MEDS: FORMOTEROL IH SCH ×2 (06:38→20:15)
[2021-01-03] MEDS: BUDESONIDE IH SCH ×2 (06:38→20:15)
[2021-01-03] MEDS: HEPARIN 5000 UNIT/ML 1 ML VIAL SQ SCH (08:00)
[2021-01-03] MEDS: BUPROPION HCL XL 150 MG TAB PO SCH (08:09)
[2021-01-03] MEDS: AMLODIPINE 5 MG TAB PO SCH (08:09)
[2021-01-03] MEDS: ASPIRIN 81 MG CHEWABLE TABLET PO SCH (08:09)
[2021-01-03] MEDS: TAMSULOSIN 0.4 MG SR CAP PO SCH (08:09)
[2021-01-03] MEDS: CRANBERRY FRUIT EXTRACT 200 MG CAP PO SCH ×2 (08:09→20:13)
[2021-01-03] MEDS: NICOTINE 14 MG/PAT TD SCH (10:03)
--- NOTE | 2021-01-03 18:31 | R.PN ---
PROGRESS NOTES ENCOUNTER DATE AND TIME: 01/03/2021 18:27 (LAUNDRY ROUTEMAN) NAME RADHA LEWIS DATE OF : 1955 DATE OF ADMISSION: 12/23/2020 14:46 (LAUNDRY ROUTEMAN) CVA,ATAXIACHIEF COMPLAINT: Ataxic gait with bilateral lower extremity weakness. SUBJECTIVE: Pt denied any depression. Pt denied any Shortness of Breath. Head CT shows moderate chronic small vessel disease without evidence of acute stroke or hydrocephalus . CBC with differential is essentially normal. Card Runner 1.90, prealbumin 23.9, UA is negative. + cultures bu t asymptomatic. Ambulated 825' with contact guard assistance using a rollator. Wheelchair mobilization 250' with good endurance. VITAL SIGNS Temperature: 97.8 F SBP/DBP: 140/72 Pulse: 79 Resp: 16 MEDICATION ALLERGIES: No Known Drug Allergies (NKDA) ENVIRONMENTAL ALLERGIES: - Substance Allergies None Known - Other Allergies None Known NURSING: - Shower allowing shower - Bladder care per protocol - Skin care per protocol PRECAUTIONS: - Weight Bearing Precaution WBAT right LE ACTIVITIES OOB only with supervision THERAPIES: - Occupational Therapy Cognitive Retraining. Visual Perceptual Training. - Dietary and Nutrition Adequate Nutrition. Nutritional Education. Nutritional Supplements. - Speech Therapy Cognitive Training. Expressive Language Skills. Memory Strategies. Receptive Language Skills. Speech Intelligibility Training. PHYSICAL EXAM - Gen Alert and awake Lying in bed No apparent distress Oriented to: person, time, and place - Skin No beakdown No numbness - Eyes No discharge - ENMT No abnormalities - Neck No abnormalities - CVS RRR - Chest Clear - Abd + bowel sounds - GI Soft Deferred - No abnormalities - Ext No significant edema - MSK 4/5 weakness in right upper and lower extremity. - Neuro Hoarse voice, 4/5 weakness in right upper and lower extremity. Ataxic gait. - Psych No abnormalities ASSESSMENT: Pt. is a 65 yo Right-handed male of unknown race.On 12/16/2020 Pt. presented to [facility] with sudden onset of right-side weakness.On 12/16/2020 he was admitted to [facility] with diagnosis CVA,ATAXIA.His impairment category is Stroke 01 - Right Body (Left Brain) (01.2).Pre-morbidly, Pt. was independent/mod-I in Balance, Safety Awareness, Self-Care, and Endurance; and he had good Social Cognition, Transfers Control, Self-Care, and Balance.Currently, he has deficits of Locomotion, Sphinc ter Control, Endurance, Transfers Control, Balance, and Safety Awareness.Pt. is now referred to [facility] for acute in-patient rehabilitation in order to maximize patient's funct ional independence in activities of daily living, strength, ROM, and mobility.- Rehab Goal Patient has realistic goal of being discharged at assistance level 7-Ind to reside at Home with Pt s elf. MDM/PLAN: - Physical Therapy Gait dysfunction - to improve, our physical therapists will perform initial evaluation of pt's statu s upon admission and devise an individualized program for Gait Training, and Wheel Chair mobility Inability to transfer - to improve, our physical therapists will perform initial evaluation of pt's status upon admission and devise an individualized program for Bed mobility Need for home safety evaluation - to improve, our physical therapists will perform initial evaluatio n of pt's status upon admission and devise an individualized program for Home Evaluation Need in caregiver upon discharge - to improve, our physical therapists will perform initial evaluati on of pt's status upon admission and devise an individualized program for Caregiver Training New precaution - to improve, our physical therapists will perform initial evaluation of pt's status upon admission and devise an individualized program for Patient precaution education Edema - to improve, our physical therapists will perform initial evaluation of pt's status upon admi ssion and devise an individualized program for Elevation Training, and Lymphedema Therapy Poor balance - to improve, our physical therapists will perform initial evaluation of pt's status up on admission and devise an individualized program for Balance Training Poor endurance - to improve, our physical therapists will perform initial evaluation of pt's status upon admission and devise an individualized program for Endurance Training Weakness - to improve, our physical therapists will perform initial evaluation of pt's status upon a dmission and devise an individualized program for Aquatic Therapy, Neuromuscular Reeducation, and Str engthening Achieving independence - to improve, our physical therapists will perform initial evaluation of pt's status upon admission and devise an individualized program for Community Reintegration Activities - Occupational Therapy Need for director of health care marketing - to improve, our occupation therapists will perform initial evaluation of pt's status upon admission and devise an individualized program for Caregiver Training Weakness - to improve, our occupation therapists will perform initial evaluation of pt's status upon admission and devise an individualized program for Aquatic Therapy, Balance, Endurance, UE ROM, and UE strengthening - Other See attached MAR (Medication Administration Record) - Diet Type Continue Regular - Diet - Liquid Texture Continue Regular - Tube Feed Continue N/A - Bladder care per protocol - Weight Bearing Precaution WBAT right LE - Skin care per protocol - Diet - Solid Texture Continue Regular - Shower allowing shower for Dementia, TBI, Stroke, or others FUNCTIONAL STATUS: UPDATED AT WEEKLY TEAM CONFERENCE - Bladder Same accident frequency: 7-Ind - No accidents in the past 7 days - Bowel Same accident frequency: 7-Ind - No accidents in the past 7 days - Walking Same score based on distance walked: 0(N/A) Same score based on distance walked: 2(50-149ft) - Wheelchair Same score based on distance traveled: 0(N/A) FUNCTIONAL STATUS: - Self-Care A. Eating Elvin B. Grooming Elvin C. Bathing Rolando D. Dressing - Upper Rolando E. Dressing - Lower modA F. Toileting Rolando - Sphincter Control G. Bladder control sup H. Bowel control sup - Transfers Control I. Bed/Chair/Wheelchair sup J. Toilet sup K. Tub/Shower Rolando - Locomotion L. Walk/Wheelchair (B) Rolando M. Stairs ADNO - Communication N. Comprehension (B) sup O. Expression (B) sup - Social Cognition P. Social Interaction Elvin Q. Problem Solving sup R. Memory Rolando - Endurance Fair - Balance Fair - Safety Awareness Fair QI SCORES: - Self-Care A. Eating 03-Partial/moderate assistance B. Oral hygiene 03-Partial/moderate assistance C. Toileting hygiene 03-Partial/moderate assistance E. Shower/bathe self 03-Partial/moderate assistance F. Upper body dressing 04-Supervision or touching assistance G. Lower body dressing 03-Partial/moderate assistance H. Putting on/taking off footwear 88-Not attempted due to medical condition or safety concerns - Mobility A. Roll left and right 03-Partial/moderate assistance B. Sit to lying 03-Partial/moderate assistance C. Lying to sitting on side of bed 03-Partial/moderate assistance D. Sit to stand 03-Partial/moderate assistance E. Chair/[id number] transfer 03-Partial/moderate assistance F. Toilet transfer 03-Partial/moderate assistance G. Car transfer 88-Not attempted due to medical condition or safety concerns I. Walk 10 feet 03-Partial/moderate assistance J. Walk 50 feet with two turns 03-Partial/moderate assistance K. Walk 150 feet 88-Not attempted due to medical condition or safety concerns L. Walking 10 feet on uneven surfaces 88-Not attempted due to medical condition or safety concerns M. 1 step (curb) 88-Not attempted due to medical condition or safety concerns N. 4 steps 88-Not attempted due to medical condition or safety concerns O. 12 steps 88-Not attempted due to medical condition or safety concerns P. Picking up object 88-Not attempted due to medical condition or safety concerns R. Wheel 50 feet with two turns 88-Not attempted due to medical condition or safety concerns S. Wheel 150 feet 88-Not attempted due to medical condition or safety concerns - Bladder and Bowel Bladder continence Bowel continence - Endurance Fair - Balance Fair - Safety Awareness Fair [facility] DEFICITS: Self-Care, Mobility, Endurance, Balance, and Safety Awareness SIGNATURE PANEL: (LAUNDRY ROUTEMAN)
[2021-01-03] MEDS: MELATONIN 3 MG TABLET PO SCH (20:13)
[2021-01-03] MEDS: ATORVASTATIN 40 MG TAB PO SCH (20:13)
[2021-01-03] MEDS: APIXABAN 2.5 MG TABLET PO SCH (20:13)
[2021-01-03] MEDS: QUETIAPINE 25 MG TAB PO SCH (20:13)
[2021-01-03] MEDS: DOCUSATE NA/SENNA CONC 1 TAB PO PRN (20:15)
[2021-01-03] MEDS ORDERED: TRAMADOL HCL 50 MG TAB PO PRN (21:41)
[2021-01-03] MEDS: ACETAMINOPHEN 325 MG TABLET PO PRN (21:55)
[2021-01-04] MEDS: carvediloL 12.5 MG TAB PO SCH ×2 (05:07→17:16)
[2021-01-04] MEDS: BUDESONIDE IH SCH ×2 (06:43→19:45)
[2021-01-04] MEDS: FORMOTEROL IH SCH ×2 (06:43→19:45)
[2021-01-04] MEDS: NICOTINE 14 MG/PAT TD SCH (07:19)
[2021-01-04] MEDS: AMLODIPINE 5 MG TAB PO SCH (07:19)
[2021-01-04] MEDS: APIXABAN 2.5 MG TABLET PO SCH ×2 (08:13→19:47)
[2021-01-04] MEDS: TAMSULOSIN 0.4 MG SR CAP PO SCH (08:13)
[2021-01-04] MEDS: ASPIRIN 81 MG CHEWABLE TABLET PO SCH (08:13)
[2021-01-04] MEDS: CRANBERRY FRUIT EXTRACT 200 MG CAP PO SCH ×2 (08:13→19:45)
[2021-01-04] MEDS: BUPROPION HCL XL 150 MG TAB PO SCH (08:13)
[2021-01-04] MEDS ORDERED: ONDANSETRON 4 MG (ODT) TAB PO PRN (16:11)
[2021-01-04] MEDS ORDERED: TRAZODONE 50 MG TABLET PO PRN (16:24)
[2021-01-04] MEDS ORDERED: POLYETHYL GLY 3350 17 GM/DOSE PO PRN (17:28)
[2021-01-04] MEDS: QUETIAPINE 25 MG TAB PO SCH (19:46)
[2021-01-04] MEDS: DOCUSATE NA/SENNA CONC 1 TAB PO PRN (19:46)
[2021-01-04] MEDS: ACETAMINOPHEN 325 MG TABLET PO PRN (19:46)
[2021-01-04] MEDS: ATORVASTATIN 40 MG TAB PO SCH (19:46)
[2021-01-04] MEDS ORDERED: POLYETHYL GLY 3350 17 GM/DOSE PO SCH (20:00)
[2021-01-04] MEDS ORDERED: DOCUSATE NA/SENNA CONC 1 TAB PO SCH (20:00)
[2021-01-04] MEDS: MELATONIN 3 MG TABLET PO PRN (21:13)
[2021-01-05] MEDS: carvediloL 12.5 MG TAB PO SCH ×2 (05:19→17:48)
[2021-01-05] MEDS ORDERED: PANTOPRAZOLE 40MG TABLET PO SCH (06:30)
[2021-01-05] MEDS: CRANBERRY FRUIT EXTRACT 200 MG CAP PO SCH ×2 (08:00→19:48)
[2021-01-05] MEDS: BUPROPION HCL XL 150 MG TAB PO SCH (08:00)
[2021-01-05] MEDS: NICOTINE 14 MG/PAT TD SCH (08:00)
[2021-01-05] MEDS: TAMSULOSIN 0.4 MG SR CAP PO SCH (08:00)
[2021-01-05] MEDS: FORMOTEROL IH SCH ×2 (08:00→19:48)
[2021-01-05] MEDS ORDERED: VITAMIN D 1000 UNIT TAB PO SCH (08:00)
[2021-01-05] MEDS: BUDESONIDE IH SCH ×2 (08:00→19:48)
[2021-01-05] MEDS ORDERED: DULOXETINE 30 MG CAP PO SCH (08:00)
[2021-01-05] MEDS: ASPIRIN 81 MG CHEWABLE TABLET PO SCH (08:00)
[2021-01-05] MEDS: AMLODIPINE 5 MG TAB PO SCH (08:00)
[2021-01-05] MEDS: APIXABAN 2.5 MG TABLET PO SCH ×2 (08:00→19:49)
--- NOTE | 2021-01-05 17:56 | R.PN ---
PROGRESS NOTES ENCOUNTER DATE AND TIME: 01/05/2021 17:50 (SYSTEM VALIDATION ENGINEER) NAME RADHA LEWIS DATE OF : 1955 DATE OF ADMISSION: 12/23/2020 14:46 (SYSTEM VALIDATION ENGINEER) CVA,ATAXIACHIEF COMPLAINT: Ataxic gait with bilateral lower extremity weakness. SUBJECTIVE: Pt denied any depression. Pt denied any Shortness of Breath. Head CT shows moderate chronic small vessel disease without evidence of acute stroke or hydrocephalus . CBC with differential is essentially normal. Commercial Front Load Driver 1.90, prealbumin 23.9, UA is negative. + cultures bu t asymptomatic. Ambulated 700 with standby assistance using a rollator. Wheelchair mobilization 250' with good endura nce. VITAL SIGNS Temperature: 99.4 F SBP/DBP: 154/71 Pulse: 75 Resp: 16 MEDICATION ALLERGIES: No Known Drug Allergies (NKDA) ENVIRONMENTAL ALLERGIES: - Substance Allergies None Known - Other Allergies None Known NURSING: - Shower allowing shower - Bladder care per protocol - Skin care per protocol PRECAUTIONS: - Weight Bearing Precaution WBAT right LE ACTIVITIES OOB only with supervision THERAPIES: - Occupational Therapy Cognitive Retraining. Visual Perceptual Training. - Dietary and Nutrition Adequate Nutrition. Nutritional Education. Nutritional Supplements. - Speech Therapy Cognitive Training. Expressive Language Skills. Memory Strategies. Receptive Language Skills. Speech Intelligibility Training. PHYSICAL EXAM - Gen Alert and awake Lying in bed No apparent distress Oriented to: person, time, and place - Skin No beakdown No numbness - Eyes No discharge - ENMT No abnormalities - Neck No abnormalities - CVS RRR - Chest Clear - Abd + bowel sounds - GI Soft Deferred - No abnormalities - Ext No significant edema - MSK 4/5 weakness in right upper and lower extremity. - Neuro Hoarse voice, 4/5 weakness in right upper and lower extremity. Ataxic gait. - Psych No abnormalities ASSESSMENT: Pt. is a 65 yo Right-handed male of unknown race.On 12/16/2020 Pt. presented to [facility] with sudden onset of right-side weakness.On 12/16/2020 he was admitted to [facility] with diagnosis CVA,ATAXIA.His impairment category is Stroke 01 - Right Body (Left Brain) (01.2).Pre-morbidly, Pt. was independent/mod-I in Balance, Safety Awareness, Self-Care, and Endurance; and he had good Social Cognition, Transfers Control, Self-Care, and Balance.Currently, he has deficits of Locomotion, Sphinc ter Control, Endurance, Transfers Control, Balance, and Safety Awareness.Pt. is now referred to [facility] for acute in-patient rehabilitation in order to maximize patient's funct ional independence in activities of daily living, strength, ROM, and mobility.- Rehab Goal Patient has realistic goal of being discharged at assistance level 7-Ind to reside at Home with Pt s elf. MDM/PLAN: - Physical Therapy Gait dysfunction - to improve, our physical therapists will perform initial evaluation of pt's statu s upon admission and devise an individualized program for Gait Training, and Wheel Chair mobility Inability to transfer - to improve, our physical therapists will perform initial evaluation of pt's status upon admission and devise an individualized program for Bed mobility Need for home safety evaluation - to improve, our physical therapists will perform initial evaluatio n of pt's status upon admission and devise an individualized program for Home Evaluation Need in caregiver upon discharge - to improve, our physical therapists will perform initial evaluati on of pt's status upon admission and devise an individualized program for Caregiver Training New precaution - to improve, our physical therapists will perform initial evaluation of pt's status upon admission and devise an individualized program for Patient precaution education Edema - to improve, our physical therapists will perform initial evaluation of pt's status upon admi ssion and devise an individualized program for Elevation Training, and Lymphedema Therapy Poor balance - to improve, our physical therapists will perform initial evaluation of pt's status up on admission and devise an individualized program for Balance Training Poor endurance - to improve, our physical therapists will perform initial evaluation of pt's status upon admission and devise an individualized program for Endurance Training Weakness - to improve, our physical therapists will perform initial evaluation of pt's status upon a dmission and devise an individualized program for Aquatic Therapy, Neuromuscular Reeducation, and Str engthening Achieving independence - to improve, our physical therapists will perform initial evaluation of pt's status upon admission and devise an individualized program for Community Reintegration Activities - Occupational Therapy Need for hospice care transitions coordinator - to improve, our occupation therapists will perform initial evaluation of pt's status upon admission and devise an individualized program for Caregiver Training Weakness - to improve, our occupation therapists will perform initial evaluation of pt's status upon admission and devise an individualized program for Aquatic Therapy, Balance, Endurance, UE ROM, and UE strengthening - Other See attached MAR (Medication Administration Record) - Diet Type Continue Regular - Diet - Liquid Texture Continue Regular - Tube Feed Continue N/A - Bladder care per protocol - Weight Bearing Precaution WBAT right LE - Skin care per protocol - Diet - Solid Texture Continue Regular - Shower allowing shower for Dementia, TBI, Stroke, or others FUNCTIONAL STATUS: UPDATED AT WEEKLY TEAM CONFERENCE - Bladder Same accident frequency: 7-Ind - No accidents in the past 7 days - Bowel Same accident frequency: 7-Ind - No accidents in the past 7 days - Walking Same score based on distance walked: 0(N/A) Same score based on distance walked: 2(50-149ft) - Wheelchair Same score based on distance traveled: 0(N/A) FUNCTIONAL STATUS: - Self-Care A. Eating Elvin B. Grooming Elvin C. Bathing Rolando D. Dressing - Upper Rolando E. Dressing - Lower modA F. Toileting Rolando - Sphincter Control G. Bladder control sup H. Bowel control sup - Transfers Control I. Bed/Chair/Wheelchair sup J. Toilet sup K. Tub/Shower Rolando - Locomotion L. Walk/Wheelchair (B) Rolando M. Stairs ADNO - Communication N. Comprehension (B) sup O. Expression (B) sup - Social Cognition P. Social Interaction Elvin Q. Problem Solving sup R. Memory Rolando - Endurance Fair - Balance Fair - Safety Awareness Fair QI SCORES: - Self-Care A. Eating 03-Partial/moderate assistance B. Oral hygiene 03-Partial/moderate assistance C. Toileting hygiene 03-Partial/moderate assistance E. Shower/bathe self 03-Partial/moderate assistance F. Upper body dressing 04-Supervision or touching assistance G. Lower body dressing 03-Partial/moderate assistance H. Putting on/taking off footwear 88-Not attempted due to medical condition or safety concerns - Mobility A. Roll left and right 03-Partial/moderate assistance B. Sit to lying 03-Partial/moderate assistance C. Lying to sitting on side of bed 03-Partial/moderate assistance D. Sit to stand 03-Partial/moderate assistance E. Chair/auw-by-udoql transfer 03-Partial/moderate assistance F. Toilet transfer 03-Partial/moderate assistance G. Car transfer 88-Not attempted due to medical condition or safety concerns I. Walk 10 feet 03-Partial/moderate assistance J. Walk 50 feet with two turns 03-Partial/moderate assistance K. Walk 150 feet 88-Not attempted due to medical condition or safety concerns L. Walking 10 feet on uneven surfaces 88-Not attempted due to medical condition or safety concerns M. 1 step (curb) 88-Not attempted due to medical condition or safety concerns N. 4 steps 88-Not attempted due to medical condition or safety concerns O. 12 steps 88-Not attempted due to medical condition or safety concerns P. Picking up object 88-Not attempted due to medical condition or safety concerns R. Wheel 50 feet with two turns 88-Not attempted due to medical condition or safety concerns S. Wheel 150 feet 88-Not attempted due to medical condition or safety concerns - Bladder and Bowel Bladder continence Bowel continence - Endurance Fair - Balance Fair - Safety Awareness Fair [facility] DEFICITS: Self-Care, Mobility, Endurance, Balance, and Safety Awareness SIGNATURE PANEL: (SYSTEM VALIDATION ENGINEER)
[2021-01-05] MEDS: QUETIAPINE 25 MG TAB PO SCH (19:48)
[2021-01-05] MEDS: MELATONIN 3 MG TABLET PO PRN (19:49)
[2021-01-05] MEDS: ATORVASTATIN 40 MG TAB PO SCH (19:49)
[2021-01-05] MEDS: DOCUSATE NA/SENNA CONC 1 TAB PO PRN (22:58)
[2021-01-06] MEDS: carvediloL 12.5 MG TAB PO SCH ×2 (05:24→17:34)
[2021-01-06 07:18] LABS: Absolute Lymphocytes (CBC) 2.5 K/uL (0.7-4.9); Basophils % 1.2 % (0-1.3); Hematocrit 41.3 % (39.6-49.0); Lymphocytes % 36.7 % (15.3-44.8); MPV 11.3 fL (7.6-11.3); RBC Red Blood Cell Count 4.62 M/uL (4.33-5.43)
[2021-01-06 07:20] LABS: Albumin 3.2 g/dL (3.4-5.0); Magnesium 2.3 mg/dL (1.8-2.4); Prealbumin 27.9 mg/dL (20-40)
[2021-01-06] MEDS: BUDESONIDE IH SCH ×2 (08:28→19:42)
[2021-01-06] MEDS: FORMOTEROL IH SCH ×2 (08:28→19:42)
[2021-01-06] MEDS: NICOTINE 14 MG/PAT TD SCH (08:29)
[2021-01-06] MEDS: APIXABAN 2.5 MG TABLET PO SCH ×2 (08:30→19:43)
[2021-01-06] MEDS: AMLODIPINE 5 MG TAB PO SCH (08:30)
[2021-01-06] MEDS: ASPIRIN 81 MG CHEWABLE TABLET PO SCH (08:30)
[2021-01-06] MEDS: CRANBERRY FRUIT EXTRACT 200 MG CAP PO SCH ×2 (08:30→19:42)
[2021-01-06] MEDS: TAMSULOSIN 0.4 MG SR CAP PO SCH (08:30)
[2021-01-06] MEDS: BUPROPION HCL XL 150 MG TAB PO SCH (08:30)
--- NOTE | 2021-01-06 19:29 | R.PN ---
PROGRESS NOTES ENCOUNTER DATE AND TIME: 01/06/2021 19:24 (SHUTTLE FILLER) NAME RADHA LEWIS DATE OF : 1955 DATE OF ADMISSION: 12/23/2020 14:46 (SHUTTLE FILLER) CVA,ATAXIACHIEF COMPLAINT: Ataxic gait with bilateral lower extremity weakness. SUBJECTIVE: Pt denied any depression. Pt denied any Shortness of Breath. Head CT shows moderate chronic small vessel disease without evidence of acute stroke or hydrocephalus . CBC with differential is essentially normal. Tire Mold Engraver 1.85, prealbumin 27.9, UA is negative. + cultures bu t asymptomatic. Ambulated 1000 with standby assistance using a rolling walker. Wheelchair mobilization 250' with good endurance. VITAL SIGNS Temperature: 97.5 F SBP/DBP: 140/74 Pulse: 69 Resp: 16 MEDICATION ALLERGIES: No Known Drug Allergies (NKDA) ENVIRONMENTAL ALLERGIES: - Substance Allergies None Known - Other Allergies None Known NURSING: - Shower allowing shower - Bladder care per protocol - Skin care per protocol PRECAUTIONS: - Weight Bearing Precaution WBAT right LE ACTIVITIES OOB only with supervision THERAPIES: - Occupational Therapy Cognitive Retraining. Visual Perceptual Training. - Dietary and Nutrition Adequate Nutrition. Nutritional Education. Nutritional Supplements. - Speech Therapy Cognitive Training. Expressive Language Skills. Memory Strategies. Receptive Language Skills. Speech Intelligibility Training. PHYSICAL EXAM - Gen Alert and awake Lying in bed No apparent distress Oriented to: person, time, and place - Skin No beakdown No numbness - Eyes No discharge - ENMT No abnormalities - Neck No abnormalities - CVS RRR - Chest Clear - Abd + bowel sounds - GI Soft Deferred - No abnormalities - Ext No significant edema - MSK 4/5 weakness in right upper and lower extremity. - Neuro Hoarse voice, 4/5 weakness in right upper and lower extremity. Ataxic gait. - Psych No abnormalities ASSESSMENT: Pt. is a 65 yo Right-handed male of unknown race.On 12/16/2020 Pt. presented to [facility] with sudden onset of right-side weakness.On 12/16/2020 he was admitted to [facility] with diagnosis CVA,ATAXIA.His impairment category is Stroke 01 - Right Body (Left Brain) (01.2).Pre-morbidly, Pt. was independent/mod-I in Balance, Safety Awareness, Self-Care, and Endurance; and he had good Social Cognition, Transfers Control, Self-Care, and Balance.Currently, he has deficits of Locomotion, Sphinc ter Control, Endurance, Transfers Control, Balance, and Safety Awareness.Pt. is now referred to [facility] for acute in-patient rehabilitation in order to maximize patient's funct ional independence in activities of daily living, strength, ROM, and mobility.- Rehab Goal Patient has realistic goal of being discharged at assistance level 7-Ind to reside at Home with Pt s elf. MDM/PLAN: - Physical Therapy Gait dysfunction - to improve, our physical therapists will perform initial evaluation of pt's statu s upon admission and devise an individualized program for Gait Training, and Wheel Chair mobility Inability to transfer - to improve, our physical therapists will perform initial evaluation of pt's status upon admission and devise an individualized program for Bed mobility Need for home safety evaluation - to improve, our physical therapists will perform initial evaluatio n of pt's status upon admission and devise an individualized program for Home Evaluation Need in caregiver upon discharge - to improve, our physical therapists will perform initial evaluati on of pt's status upon admission and devise an individualized program for Caregiver Training New precaution - to improve, our physical therapists will perform initial evaluation of pt's status upon admission and devise an individualized program for Patient precaution education Edema - to improve, our physical therapists will perform initial evaluation of pt's status upon admi ssion and devise an individualized program for Elevation Training, and Lymphedema Therapy Poor balance - to improve, our physical therapists will perform initial evaluation of pt's status up on admission and devise an individualized program for Balance Training Poor endurance - to improve, our physical therapists will perform initial evaluation of pt's status upon admission and devise an individualized program for Endurance Training Weakness - to improve, our physical therapists will perform initial evaluation of pt's status upon a dmission and devise an individualized program for Aquatic Therapy, Neuromuscular Reeducation, and Str engthening Achieving independence - to improve, our physical therapists will perform initial evaluation of pt's status upon admission and devise an individualized program for Community Reintegration Activities - Occupational Therapy Need for resident care provider - to improve, our occupation therapists will perform initial evaluation of pt's status upon admission and devise an individualized program for Caregiver Training Weakness - to improve, our occupation therapists will perform initial evaluation of pt's status upon admission and devise an individualized program for Aquatic Therapy, Balance, Endurance, UE ROM, and UE strengthening - Other See attached MAR (Medication Administration Record) - Diet Type Continue Regular - Diet - Liquid Texture Continue Regular - Tube Feed Continue N/A - Bladder care per protocol - Weight Bearing Precaution WBAT right LE - Skin care per protocol - Diet - Solid Texture Continue Regular - Shower allowing shower for Dementia, TBI, Stroke, or others FUNCTIONAL STATUS: UPDATED AT WEEKLY TEAM CONFERENCE - Bladder Same accident frequency: 7-Ind - No accidents in the past 7 days - Bowel Same accident frequency: 7-Ind - No accidents in the past 7 days - Walking Same score based on distance walked: 0(N/A) Same score based on distance walked: 2(50-149ft) - Wheelchair Same score based on distance traveled: 0(N/A) FUNCTIONAL STATUS: - Self-Care A. Eating Elvin B. Grooming Elvin C. Bathing Rolando D. Dressing - Upper Rolando E. Dressing - Lower modA F. Toileting Rolando - Sphincter Control G. Bladder control sup H. Bowel control sup - Transfers Control I. Bed/Chair/Wheelchair sup J. Toilet sup K. Tub/Shower Rolando - Locomotion L. Walk/Wheelchair (B) Rolando M. Stairs ADNO - Communication N. Comprehension (B) sup O. Expression (B) sup - Social Cognition P. Social Interaction Elvin Q. Problem Solving sup R. Memory Rolando - Endurance Fair - Balance Fair - Safety Awareness Fair QI SCORES: - Self-Care A. Eating 03-Partial/moderate assistance B. Oral hygiene 03-Partial/moderate assistance C. Toileting hygiene 03-Partial/moderate assistance E. Shower/bathe self 03-Partial/moderate assistance F. Upper body dressing 04-Supervision or touching assistance G. Lower body dressing 03-Partial/moderate assistance H. Putting on/taking off footwear 88-Not attempted due to medical condition or safety concerns - Mobility A. Roll left and right 03-Partial/moderate assistance B. Sit to lying 03-Partial/moderate assistance C. Lying to sitting on side of bed 03-Partial/moderate assistance D. Sit to stand 03-Partial/moderate assistance E. Chair/nsr-ob-eosgp transfer 03-Partial/moderate assistance F. Toilet transfer 03-Partial/moderate assistance G. Car transfer 88-Not attempted due to medical condition or safety concerns I. Walk 10 feet 03-Partial/moderate assistance J. Walk 50 feet with two turns 03-Partial/moderate assistance K. Walk 150 feet 88-Not attempted due to medical condition or safety concerns L. Walking 10 feet on uneven surfaces 88-Not attempted due to medical condition or safety concerns M. 1 step (curb) 88-Not attempted due to medical condition or safety concerns N. 4 steps 88-Not attempted due to medical condition or safety concerns O. 12 steps 88-Not attempted due to medical condition or safety concerns P. Picking up object 88-Not attempted due to medical condition or safety concerns R. Wheel 50 feet with two turns 88-Not attempted due to medical condition or safety concerns S. Wheel 150 feet 88-Not attempted due to medical condition or safety concerns - Bladder and Bowel Bladder continence Bowel continence - Endurance Fair - Balance Fair - Safety Awareness Fair [facility] DEFICITS: Self-Care, Mobility, Endurance, Balance, and Safety Awareness SIGNATURE PANEL: (SHUTTLE FILLER)
[2021-01-06] MEDS: MELATONIN 3 MG TABLET PO PRN (19:43)
[2021-01-06] MEDS: ACETAMINOPHEN 325 MG TABLET PO PRN (19:45)
[2021-01-06] MEDS: QUETIAPINE 25 MG TAB PO SCH (20:07)
[2021-01-06] MEDS: ATORVASTATIN 40 MG TAB PO SCH (20:08)
[2021-01-07] MEDS: carvediloL 12.5 MG TAB PO SCH ×2 (05:06→17:05)
[2021-01-07] MEDS: FORMOTEROL IH SCH ×2 (07:03→20:00)
[2021-01-07] MEDS: BUDESONIDE IH SCH ×2 (07:03→20:00)
[2021-01-07] MEDS: CRANBERRY FRUIT EXTRACT 200 MG CAP PO SCH ×2 (08:53→20:58)
[2021-01-07] MEDS: ASPIRIN 81 MG CHEWABLE TABLET PO SCH (08:53)
[2021-01-07] MEDS: BUPROPION HCL XL 150 MG TAB PO SCH (08:53)
[2021-01-07] MEDS: AMLODIPINE 5 MG TAB PO SCH (08:53)
[2021-01-07] MEDS: APIXABAN 2.5 MG TABLET PO SCH ×2 (08:53→20:59)
[2021-01-07] MEDS: TAMSULOSIN 0.4 MG SR CAP PO SCH (08:54)
[2021-01-07] MEDS: NICOTINE 14 MG/PAT TD SCH (08:55)
--- NOTE | 2021-01-07 09:49 | P.RH.PN ---
Estimated Length of Stay: 17 Expected Discharge Date: 01/08/21 Discharge Disposition Plan: Home Family Support: Yes [employer] Goal: Mobility, Transfers, Self Care Vital Signs: Last Vital Signs Temp 98.6 F 01/06/21 20:00 Pulse 69 01/07/21 08:53 Resp 18 01/06/21 20:00 BP 133/68 01/07/21 08:53 Pulse Ox 98 01/06/21 20:00 Laboratory: Laboratory Last Values WBC 6.90 K/uL (4.3-10.9) 01/06/21 06:19 RBC 4.62 M/uL (4.33-5.43) 01/06/21 06:19 Hgb 13.0 g/dL (13.6-17.9) L 01/06/21 06:19 Hct 41.3 % (39.6-49.0) 01/06/21 06:19 MCV 89.4 fL (80-100) 01/06/21 06:19 MCH 28.3 pg (27.0-35.0) 01/06/21 06:19 MCHC 31.6 g/dL (32.0-36.0) L 01/06/21 06:19 RDW 14.4 % (12.1-15.2) 01/06/21 06:19 Plt Count 216 K/uL (152-406) 01/06/21 06:19 MPV 11.3 fL (7.6-11.3) 01/06/21 06:19 Neutrophils % 44.6 % (41.7-73.7) 01/06/21 06:19 Lymphocytes % 36.7 % (15.3-44.8) 01/06/21 06:19 Monocytes % 12.6 % (3.3-12.3) H 01/06/21 06:19 Eosinophils % 4.9 % (0-4.4) H 01/06/21 06:19 Basophils % 1.2 % (0-1.3) 01/06/21 06:19 Absolute Neutrophils 3.1 K/uL (1.8-8.0) 01/06/21 06:19 Absolute Lymphocytes 2.5 K/uL (0.7-4.9) 01/06/21 06:19 Absolute Monocytes 0.9 K/uL (0.1-1.3) 01/06/21 06:19 Absolute Eosinophils 0.3 K/uL (0-0.5) 01/06/21 06:19 Absolute Basophils 0.1 K/uL (0-0.5) 01/06/21 06:19 Sodium 144 mmol/L (136-145) 01/06/21 06:19 Potassium 5.0 mmol/L (3.5-5.1) 01/06/21 06:19 Chloride 114 mmol/L (98-107) H 01/06/21 06:19 Carbon Dioxide 22 mmol/L (21-32) 01/06/21 06:19 BUN 20 mg/dL (7-18) H 01/06/21 06:19 Creatinine 1.85 mg/dL (0.55-1.3) H 01/06/21 06:19 Estimated GFR 44 mL/min (=/>90) L 01/06/21 06:19 Glucose 84 mg/dL (74-106) 01/06/21 06:19 Calcium 8.9 mg/dL (8.5-10.1) 01/06/21 06:19 Magnesium 2.3 mg/dL (1.8-2.4) 01/06/21 06:19 Albumin 3.2 g/dL (3.4-5.0) L 01/06/21 06:19 Prealbumin 27.9 mg/dL (20-40) 01/06/21 06:19 Urine Color Yellow 12/23/20 16:15 Urine Appearance Clear 12/23/20 16:15 Urine pH 6.5 (5.0-7.0) 12/23/20 16:15 Ur Specific [place] 1.010 (1.005-1.030) 12/23/20 16:15 Glucose (UA)(Auto) Negative (NEG) 12/23/20 16:15 Urine Ketones Negative (NEG) 12/23/20 16:15 Urine Blood Negative (NEG) 12/23/20 16:15 Urine Nitrite Negative (NEG) 12/23/20 16:15 Urine Bilirubin Negative (NEG) 12/23/20 16:15 Urine Urobilinogen 1.0 mg/dL (0.2-1.0) 12/23/20 16:15 Ur Leukocyte Esterase Negative (NEG) 12/23/20 16:15 Urine RBC <5 /HPF (NONE SEEN) 12/23/20 16:15 Urine WBC None seen /HPF (<5) 12/23/20 16:15 Ur Squamous Epith Cells <5 /HPF (NONE SEEN) 12/23/20 16:15 Urine Bacteria None seen /HPF (NONE SEEN) 12/23/20 16:15 Urine Culture Reflexed Not needed 12/23/20 16:15 Urine Total Protein Negative (NEG) 12/23/20 16:15 SARS-CoV-2 RNA (RT-PCR) Negative (NEGATIVE) 01/06/21 07:45 Weight: 132 lb 14.4 oz Wound Present: No Closed Surgical Incision Present: No Negative Pressure Wound Therapy Present: No Physician Update: Labs reviewed and are stable. He is standby 250' with rolling walker, 25 stairs. He is supervision with ADLs. [facility] will have [facility]. Functional Improvement: pt has demonstrated consistent progress throughout the duration of therapy. pt has improved his functional performance, balance, and cognitive alertness. pt still exhibits some safety concerns regarding decision making. pt does require cuing during ambulation and functional transfers for safety. Continued PT services are necessary to enhance pt's safety awareness. Summary: Patient's care plan and jail goals have been reviewed and revised as necessary. Please see the Rehabilitation Signature page for all necessary signatures.
[2021-01-07] MEDS: ACETAMINOPHEN 325 MG TABLET PO PRN (20:58)
[2021-01-07] MEDS: DOCUSATE NA/SENNA CONC 1 TAB PO PRN (20:58)
[2021-01-07] MEDS: ATORVASTATIN 40 MG TAB PO SCH (20:59)
[2021-01-07] MEDS: QUETIAPINE 25 MG TAB PO SCH (20:59)
[2021-01-07] MEDS: MELATONIN 3 MG TABLET PO PRN (20:59)
[2021-01-08] MEDS: carvediloL 12.5 MG TAB PO SCH (05:07)
[2021-01-08 07:44] VITALS: TEMP 98.1
--- NOTE | 2021-01-08 08:56 | RAD REPORT ---
EXAM DESCRIPTION: CT - Head Brain Wo Cont - 01/08/2021 8:22 am CLINICAL HISTORY: s/p fall Fall, trauma, head injury COMPARISON: Head Brain Wo Cont dated 12/27/2020; Head Brain Wo Cont dated 03/18/2020; Brain Wo Cont blu ed 12/28/2020 TECHNIQUE: All CT scans are performed using dose optimization technique as appropriate and may inclu de automated exposure control or mA/KV adjustment according to patient size. FINDINGS: No intracranial hemorrhage, hydrocephalus or extra-axial fluid collection.Moderate general ized brain atrophy is present with advanced periventricular and deep white matter chronic microvascul ar ischemic changes.No areas of brain edema or evidence of midline shift. The paranasal sinuses and mastoids are clear. The calvarium is intact. IMPRESSION: No acute intracranial abnormality.
[2021-01-08] MEDS: NICOTINE 14 MG/PAT TD SCH (09:22)
[2021-01-08] MEDS: BUDESONIDE IH SCH (09:22)
[2021-01-08] MEDS: FORMOTEROL IH SCH (09:22)
[2021-01-08] MEDS: TAMSULOSIN 0.4 MG SR CAP PO SCH (09:23)
[2021-01-08] MEDS: ASPIRIN 81 MG CHEWABLE TABLET PO SCH (09:23)
[2021-01-08] MEDS: CRANBERRY FRUIT EXTRACT 200 MG CAP PO SCH (09:23)
[2021-01-08] MEDS: BUPROPION HCL XL 150 MG TAB PO SCH (09:23)
[2021-01-08] MEDS: APIXABAN 2.5 MG TABLET PO SCH (09:24)
[2021-01-08] MEDS: AMLODIPINE 5 MG TAB PO SCH (09:24)
[2021-01-08 09:25] VITALS: BP 135/75
--- NOTE | 2021-01-08 13:56 | FAST ---
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 Colin Barrera M.D. 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 EATING: EATING - STEP 1: Does the patient complete the activity by him/herself with no assistance (physical, verbal/nonverbal cueing, setup/clean-up)? No. EATING - STEP 2: Does the patient need only setup/clean-up assistance from one helper? Yes. 1. [id number] ADMISSION PERFORMANCE: Setup or clean-up assistance CODE: 05 ORAL HYGIENE: ORAL HYGIENE - STEP 1: Does the patient complete the activity by him/herself with no assistance (physical, verbal/nonverbal cueing, setup/clean-up)? No. ORAL HYGIENE - STEP 2: Does the patient need only setup/clean-up assistance from one helper? No. ORAL HYGIENE - STEP 3: Does the patient need only verbal/nonverbal cueing or touching/steadying/contact guard assistance fro m one helper? Yes. 1. [id number] ADMISSION PERFORMANCE: Supervision or touching assistance CODE: 04 TOILETING HYGIENE: TOILETING HYGIENE - STEP 1: Does the patient complete the activity by him/herself with no assistance (physical, verbal/nonverbal cueing, setup/clean-up)? No. TOILETING HYGIENE - STEP 2: Does the patient need only setup/clean-up assistance from one helper? Yes. 1. [id number] ADMISSION PERFORMANCE: Setup or clean-up assistance CODE: 05 BATHING: Not assessed/no information CODE: - DRESSING - UPPER BODY: DRESSING - UPPER BODY - STEP 1: Does the patient complete the activity by him/herself with no assistance (physical, verbal/nonverbal cueing, setup/clean-up)? No. DRESSING - UPPER BODY - STEP 2: Does the patient need only setup/clean-up assistance from one helper? Yes. 1. [id number] ADMISSION PERFORMANCE: Setup or clean-up assistance CODE: 05 DRESSING - LOWER BODY: DRESSING - LOWER BODY - STEP 1: Does the patient complete the activity by him/herself with no assistance (physical, verbal/nonverbal cueing, setup/clean-up)? No. DRESSING - LOWER BODY - STEP 2: Does the patient need only setup/clean-up assistance from one helper? Yes. 1. [id number] ADMISSION PERFORMANCE: Setup or clean-up assistance CODE: 05 PUTTING ON/TAKING OFF FOOTWEAR: FOOTWEAR - STEP 1: Does the patient complete the activity by him/herself with no assistance (physical, verbal/nonverbal cueing, setup/clean-up)? No. FOOTWEAR - STEP 2: Does the patient need only setup/clean-up assistance from one helper? Yes. 1. [id number] ADMISSION PERFORMANCE: Setup or clean-up assistance CODE: 05 ROLL LEFT AND RIGHT: ROLL LEFT AND RIGHT - STEP 1: Does the patient complete the activity by him/herself with no assistance (physical, verbal/nonverbal cueing, setup/clean-up)? No. ROLL LEFT AND RIGHT - STEP 2: Does the patient need only setup/clean-up assistance from one helper? Yes. 1. [id number] ADMISSION PERFORMANCE: Setup or clean-up assistance CODE: 05 SIT TO LYING: SIT TO LYING - STEP 1: Does the patient complete the activity by him/herself with no assistance (physical, verbal/nonverbal cueing, setup/clean-up)? No. SIT TO LYING - STEP 2: Does the patient need only setup/clean-up assistance from one helper? Yes. 1. [id number] ADMISSION PERFORMANCE: Setup or clean-up assistance CODE: 05 LYING TO SITTING: LYING TO SITTING ON SIDE OF BED - STEP 1: Does the patient complete the activity by him/herself with no assistance (physical, verbal/nonverbal cueing, setup/clean-up)? No. LYING TO SITTING ON SIDE OF BED - STEP 2: Does the patient need only setup/clean-up assistance from one helper? Yes. 1. [id number] ADMISSION PERFORMANCE: Setup or clean-up assistance CODE: 05 SIT TO STAND: SIT TO STAND - STEP 1: Does the patient complete the activity by him/herself with no assistance (physical, verbal/nonverbal cueing, setup/clean-up)? No. SIT TO STAND - STEP 2: Does the patient need only setup/clean-up assistance from one helper? Yes. 1. [id number] ADMISSION PERFORMANCE: Setup or clean-up assistance CODE: 05 TRANSFERS: BED, CHAIR: CHAIR/LKX-WD-QFPRE TRANSFER - STEP 1: Does the patient complete the activity by him/herself with no assistance (physical, verbal/nonverbal cueing, setup/clean-up)? No. CHAIR/ZJO-QL-[id number] TRANSFER - STEP 2: Does the patient need only setup/clean-up assistance from one helper? Yes. 1. [id number] ADMISSION PERFORMANCE: Setup or clean-up assistance CODE: 05 TRANSFER TOILET: TOILET TRANSFER - STEP 1: Does the patient complete the activity by him/herself with no assistance (physical, verbal/nonverbal cueing, setup/clean-up)? No. TOILET TRANSFER - STEP 2: Does the patient need only setup/clean-up assistance from one helper? Yes. 1. [id number] ADMISSION PERFORMANCE: Setup or clean-up assistance CODE: 05 TRANSFERS: CAR: Not assessed/no information CODE: - WALK 10 FEET: WALK 10 FEET - STEP 1: Does the patient complete the activity by him/herself with no assistance (physical, verbal/nonverbal cueing, setup/clean-up)? No. WALK 10 FEET - STEP 2: Does the patient need only setup/clean-up assistance from one helper? No. WALK 10 FEET - STEP 3: Does the patient need only verbal/nonverbal cueing or touching/steadying/contact guard assistance fro m one helper? Yes. 1. [id number] ADMISSION PERFORMANCE: Supervision or touching assistance CODE: WALK 50 FEET: WALK 50 FEET - STEP 1: Does the patient complete the activity by him/herself with no assistance (physical, verbal/nonverbal cueing, setup/clean-up)? No. WALK 50 FEET - STEP 2: Does the patient need only setup/clean-up assistance from one helper? No. WALK 50 FEET - STEP 3: Does the patient need only verbal/nonverbal cueing or touching/steadying/contact guard assistance fro m one helper? Yes. 1. AS6399D ADMISSION PERFORMANCE: Supervision or touching assistance CODE: WALK 150 FEET: WALK 150 FEET - STEP 1: Does the patient complete the activity by him/herself with no assistance (physical, verbal/nonverbal cueing, setup/clean-up)? No. WALK 150 FEET - STEP 2: Does the patient need only setup/clean-up assistance from one helper? No. WALK 150 FEET - STEP 3: Does the patient need only verbal/nonverbal cueing or touching/steadying/contact guard assistance fro m one helper? Yes. 1. [id number] ADMISSION PERFORMANCE: Supervision or touching assistance CODE: 04 WALK 10 FEET UNEVEN: Not assessed/no information CODE: - 1 STEP (CURB): Not assessed/no information CODE: - PICKING UP OBJECT: Not assessed/no information CODE: - DOES THE PATIENT USE A WHEELCHAIR/SCOOTER? Q1. DOES THE PATIENT USE A WHEELCHAIR/SCOOTER?: Yes CODE: 1 WHEEL 50 FEET WITH TWO TURNS: WHEEL 50 FEET WITH TWO TURNS - STEP 1: Does the patient complete the activity by him/herself with no assistance (physical, verbal/nonverbal cueing, setup/clean-up)? No. WHEEL 50 FEET WITH TWO TURNS - STEP 2: Does the patient need only setup/clean-up assistance from one helper? Yes. 1. GW5260O ADMISSION PERFORMANCE: Setup or clean-up assistance CODE: 05 INDICATE THE TYPE OF WHEELCHAIR/SCOOTER USED: RR1. INDICATE THE TYPE OF WHEELCHAIR/SCOOTER USED.: Manual CODE: 1 WHEEL 150 FEET: WHEEL 150 FEET - STEP 1: Does the patient complete the activity by him/herself with no assistance (physical, verbal/nonverbal cueing, setup/clean-up)? No. WHEEL 150 FEET - STEP 2: Does the patient need only setup/clean-up assistance from one helper? No. WHEEL 150 FEET - STEP 3: Does the patient need only verbal/nonverbal cueing or touching/steadying/contact guard assistance fro m one helper? Yes. 1. TO7864R ADMISSION PERFORMANCE: Supervision or touching assistance CODE: 04 INDICATE THE TYPE OF WHEELCHAIR/SCOOTER USED: SS1. INDICATE THE TYPE OF WHEELCHAIR/SCOOTER USED.: Manual CODE: 1 BLADDER AND BOWEL: H350. BLADDER CONTINENCE (3-DAY ASSESSMENT PERIOD): Incontinent less than daily (e.g., once or twice during the 3-day assessment period) CODE: 2 H400. BOWEL CONTINENCE (3-DAY ASSESSMENT PERIOD): Always continent CODE: 0 SIGNATURE PANEL: The following modified sections: 1. PT4819K Admission Performance, 1. EM4218P Admission Performance, 1. BK6230A Admission Performance, 1. IV8942y Admission Performance, 1. KH2514w Admission Performance, 1. DC5881d Admission Performance, 1. NM9394C Admission Performance, 1. EP9243S Admission Performance , 1. GW3822R Admission Performance, 1. PI6985D Admission Performance, 1. LY3868V Admission Performanc e, 1. QH0178Z Admission Performance, 1. DR4143X Admission Performance, 1. YP4372A Admission Performan ce, 1. CK8714P Admission Performance, 1. RG5427A Admission Performance, 1. AX3455N Admission Performa nce, 1. KY8899T Admission Performance, Q1. Does the patient use a wheelchair/scooter?, 1. CJ7428C Adm ission Performance, RR1. Indicate the type of wheelchair/scooter used., 1. KK2751E Admission Performa nce, Code, SS1. Indicate the type of wheelchair/scooter used., H350. Bladder Continence (3-day assess ment period), H400. Bowel Continence (3-day assessment period) were [electronically] signed by Radha Mosqueda C.N.A. on SunJan 08 2021 13:56:05 GMT-0600 (Central Standard Time)
--- NOTE | 2021-01-28 18:06 | R.DS ---
DISCHARGE SUMMARY FACILITY [facility] MR# [id number] NAME RADHA LEWIS ADDRESS [address] [place] [address] [address] [address] PHONE DATE OF 1955 AGE 65 SSN# [id number] GENDER Male DEXTERITY Right-handed MARITAL STATUS RACE Unknown race ENCOUNTER PHYSICIAN Dr. Colin Barrera M.D. REFERRING DOCTOR SHY EVANS MD REFERRING FACILITY [facility] DISCHARGE DIAGNOSIS: - Stroke 01 - Right Body (Left Brain) (01.2) CVA,ATAXIA. 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 NURSING: - Shower allowing shower - Bladder care per protocol - Skin care per protocol PRECAUTIONS: - Weight Bearing Precaution WBAT right LE ACTIVITIES OOB only with supervision THERAPIES: - Occupational Therapy Cognitive Retraining Visual Perceptual Training - Dietary and Nutrition Adequate Nutrition Nutritional Education Nutritional Supplements - Speech Therapy Cognitive Training Expressive Language Skills Memory Strategies Receptive Language Skills Speech Intelligibility Training HISTORY OF PRESENT ILLNESS: Pt. is a 65 yo Right-handed male of unknown race.On 12/16/2020 Pt. presented to [facility] with sudden onset of right-side weakness.On 12/16/2020 he was admitted to [facility] with diagnosis CVA,ATAXIA.His impairment category is Stroke 01 - Right Body (Left Brain) (01.2).Pre-morbidly, Pt. was independent/mod-I in Balance, Safety Awareness, Self-Care, and Endurance; and he had good Social Cognition, Transfers Control, Self-Care, and Balance.Currently, he has deficits of Locomotion, Sphinc ter Control, Endurance, Transfers Control, Balance, and Safety Awareness.Pt. is now referred to [facility] for acute in-patient rehabilitation in order to maximize patient's funct ional independence in activities of daily living, strength, ROM, and mobility.- Rehab Goal Patient has realistic goal of being discharged at assistance level 7-Ind to reside at Home with Pt s elf. DIET - LIQUID TEXTURE: On 12/22/2020 Pt was upgraded to Regular Diet - Liquid Texture. DIET - SOLID TEXTURE: On 12/22/2020 Pt was upgraded to Regular Diet - Solid Texture. DIET TYPE: On 12/22/2020 Pt was upgraded to Regular Diet Type. TUBE FEED: On 12/22/2020 Pt was changed to N/A Tube Feed. WEIGHT BEARING PRECAUTION: On 12/22/2020 the following precautions were added for the patient: Weight Bearing Precaution - WBAT right LE. On 12/24/2020 the following precautions were added for the patient: Weight Bearing Precaution - WBAT right LE. On 12/27/2020 the following precautions were removed for the patient: Weight Bearing Precaution - WB AT right LE. On 12/28/2020 the following precautions were added for the patient: Weight Bearing Precaution - WBAT right LE. DISCHARGE PHYSICAL EXAM - Gen Alert and awake Lying in bed No apparent distress Oriented to: person, time, and place - Skin No beakdown No numbness - Eyes No discharge - ENMT No abnormalities - Neck No abnormalities - CVS RRR - Chest Clear - Abd + bowel sounds - GI Soft Deferred - No abnormalities - Ext No significant edema - MSK 4/5 weakness in right upper and lower extremity. - Neuro Hoarse voice, 4/5 weakness in right upper and lower extremity. Ataxic gait. - Psych No abnormalities FUNCTIONAL STATUS: - Self-Care A. Eating 6-Elvin B. Grooming 6-Elvin C. Bathing 6-Elvin D. Dressing - Upper 6-Elvin E. Dressing - Lower 6-Elvin F. Toileting 6-Elvin - Sphincter Control G. Bladder control 6-Elvin H. Bowel control 6-Elvin - Transfers Control I. Bed/Chair/Wheelchair 6-Elvin J. Toilet 6-Elvin K. Tub/Shower 6-Elvin - Locomotion L. Walk/Wheelchair (B) 6-Elvin M. Stairs 6-Elvin - Communication N. Comprehension (B) 6-Elvin O. Expression (B) 6-Elvin - Social Cognition P. Social Interaction 6-Elvin Q. Problem Solving 6-Elvin R. Memory 6-Elvin - Endurance Good - Balance Good - Safety Awareness Good QI SCORES: - Self-Care A. Eating 03-Partial/moderate assistance B. Oral hygiene 03-Partial/moderate assistance C. Toileting hygiene 03-Partial/moderate assistance E. Shower/bathe self 03-Partial/moderate assistance F. Upper body dressing 04-Supervision or touching assistance G. Lower body dressing 03-Partial/moderate assistance H. Putting on/taking off footwear 88-Not attempted due to medical condition or safety concerns - Mobility A. Roll left and right 03-Partial/moderate assistance B. Sit to lying 03-Partial/moderate assistance C. Lying to sitting on side of bed 03-Partial/moderate assistance D. Sit to stand 03-Partial/moderate assistance E. Chair/iof-qo-lppwd transfer 03-Partial/moderate assistance F. Toilet transfer 03-Partial/moderate assistance G. Car transfer 88-Not attempted due to medical condition or safety concerns I. Walk 10 feet 03-Partial/moderate assistance J. Walk 50 feet with two turns 03-Partial/moderate assistance K. Walk 150 feet 88-Not attempted due to medical condition or safety concerns L. Walking 10 feet on uneven surfaces 88-Not attempted due to medical condition or safety concerns M. 1 step (curb) 88-Not attempted due to medical condition or safety concerns N. 4 steps 88-Not attempted due to medical condition or safety concerns O. 12 steps 88-Not attempted due to medical condition or safety concerns P. Picking up object 88-Not attempted due to medical condition or safety concerns R. Wheel 50 feet with two turns 88-Not attempted due to medical condition or safety concerns S. Wheel 150 feet 88-Not attempted due to medical condition or safety concerns - Bladder and Bowel Bladder continence Bowel continence - Endurance Fair - Balance Fair - Safety Awareness Fair DISCHARGE INSTRUCTIONS: - N/A Eliquis 2.5 mg twice daily. DISCHARGE PLAN, FOLLOW UP CARE PROVISIONS: - Estimated Length of Stay (days) 17. - Consensus on plan Discharge plan has been discussed with primary caregiver. Patient/Family is in agreement with the kody n. Primary caregiver is in agreement with the plan. - Patient/Family Goals Return home independently. - Planned Living Setting Upon Discharge Home, to live alone. Transitional Living. Primary caregiver: Pt self. SIGNATURE PANEL: (CDT)
== END 2021-01-08 13:30 | disposition home health service (06) | DRG 57 ==
LOC: 5TH 14:46
PROVIDERS: ADMIT Psychiatry & Neurology Neurology with Special Qualifications in Child Neurology; ATTEND Psychiatry & Neurology Neurology with Special Qualifications in Child Neurology
DX: I69.393 Ataxia following cerebral infarction (principal); I69.351 Hemiplegia and hemiparesis following cerebral infarction affecting right dominant side; I69.354 Hemiplegia and hemiparesis following cerebral infarction affecting left non-dominant side; I10 Essential (primary) hypertension; J44.9 Chronic obstructive pulmonary disease, unspecified; E78.5 Hyperlipidemia, unspecified; Z20.822 Contact with and (suspected) exposure to COVID-19
CPT/HCPCS: 36415; 70450; 70551; 80048; 81001; 82040; 83735; 84134; 85025; 87077; 87086; 87088; 87186; 92523; 92610; 97110; 97112; 97116; 97127; 97161; 97530; 97542; J1644; U0002; U0003

== ENCOUNTER 2021-01-11 11:17 | Emergency (ER) | payer OTHER ==
--- OUTSIDE RECORDS SUMMARY | 2021-01-11 11:21 | XMS REPORT | Continuity of Care Document ---
:1955 Author Organization [facility] t Address [address] [place] [address] Care Team Providers Name Role Phone Unavailable Unavailable Unavailable Payers Payer Name Policy Type Policy Number Effective Date Expiration Date S ource Problems This patient has no known problems. Allergies, Adverse Reactions, Alerts Allergy Allergy Status Severity Reaction(s) Onset Inactive Treating Comm ents Source Name Type Date Date Clinician No Known DA Active U [facility] Medications This patient has no known medications. Procedures This patient has no known procedures. Results Test Description Test Time Test Comments Results Result Comments Source GLUCOSE BEDSIDE TESTING 2020-12-13 06:38:00 Test Item Value Reference Range Interpretation Comme nts GLUCOSE BEDSIDE TESTING (test code = GLUBED) 93 mg/dL 70-110 N BASIC METABOLIC [id number] 06:24:00 Test Item Value Reference Range Interpretation [...] CA) 8.8 MG/DL 8.5-10.1 N GLUCOSE BEDSIDE [id number] 17:01:00 Test Item Value Reference Range Interpretation Comments GLUCOSE BEDSIDE TESTING (test code 220 mg/dL 70-110 H = GLUBED) GLUCOSE BEDSIDE [id number] 11:37:00 Test Item Value Reference Range Interpretation Comments GLUCOSE BEDSIDE TESTING (test code = 86 mg/dL 70-110 N GLUBED) GLUCOSE BEDSIDE [id number] 08:10:00 Test Item Value Reference Range Interpretation Comments GLUCOSE BEDSIDE TESTING (test code = 86 mg/dL 70-110 N GLUBED) BASIC METABOLIC [id number] 05:12:00 Test Item Value Reference Range Interpretation [...] CA) 8.6 MG/DL 8.5-10.1 N BASIC METABOLIC [id number] 05:07:00 Test Item Value Reference Range Interpretation [...] CA) 8.6 MG/DL 8.5-10.1 N GLUCOSE BEDSIDE [id number] 20:21:00 Test Item Value Reference Range Interpretation Comments GLUCOSE BEDSIDE TESTING (test code 119 mg/dL 70-110 H = GLUBED) - CT HEAD/BRAIN W/O [id number] 18:46:00 [facility] 1955 Sex: M Name: RADHA LEWIS [facility] : 1955 Age/S: 65 / M [address] Unit #: [id number] Loc: [place] [address] [id number] Dis Date: Status: ADM IN PHONE #:[phone] Exam Date: 12/10/2020 0731 FAX #: Reason: decrease loc since yesterday EXAMS: CPT: [id number] CT HEAD/BRAIN W/O CONT 99927 EXAM: CT BRAIN WITHOUT CONTRAST INDICATION: decrease [...] 1 Signed Report (CONTINUED) Name: RADHA LEWIS [facility] : 1955 Age/S: 65 / M [address] Unit #: [id number] Loc: [place] [address] Phys: Michele Thompson MD Acct: [id number] Dis Date: Status: ADM IN PHONE #: [phone] ExamDate: 12/10/20201842 FAX #: Reason: decrease loc since yesterday EXAMS: CPT: [id number] CT HEAD/BRAIN W/O CONT 63785 <Continued> CC: Michele Thompson MD; Pj Brooks MD Technologist:Sherlyn White RT(R)(CT);En CTDI: DLP: Trnscb Date/Time: 12/10/2020 (1845) [email or web address] Orig Print D/T: S: 12/10/2020 (1848) PAGE 2 Signed Report- DUP EXTRACRANIAL [id number] 14:30:00 [facility] : 1955 Sex: M Name: RADHA LEWIS : 1955 Age/S: 65 / M [address] Unit #: [id number] Loc: [place] [address] Phys: Pj Brooks MDAcct: [id number] Dis Date: Status: ADM IN PHONE #:[phone] Exam Date: 12/10/2020 1400 FAX #: Reason: ISCHEMIC STROKE EXAMS: CPT: [id number] DUP EXTRACRANIAL LAINEY 11009 Dictation location A1 Carotid Doppler Ultrasound HISTORY: [...] Technologist: Nicole Landin Trnscb Date/Time: 12/10/2020 (1430) JeriPXC PAGE 1 Signed Report Name:RADHA LEWIS : 1955 Age/S: 65 / M [address] Unit #: [id number] Loc: [place] [address] Phys: Pj Brooks MD Acct: [id number] Dis Date: Status: ADM IN PHONE #: [phone] Exam Date: 12/10/2020 1400 FAX #: Reason: ISCHEMIC STROKE EXAMS: CPT: [id number] DUP EXTRACRANIAL LAINEY [address] <Continued> Orig Print D/T: S: 12/10/2020 (1433) Probe: PAGE 2 Signed ReportGLYCOSYLATED HEMOGLOBIN [id number] 11:30:00 Test Item Value Reference Range Interpretation Comments GLYCOSYLATED HEMOGLOBIN (HA1C) 5.8 % A1C 0.0-5.7 H (test code = GLYHGB) ESTIMATED AVERAGE GLUCOSE (test 120 MG/DLest code = EAG) COMPREHENSIVE METABOLIC [id number] 11:29:00 Test Item Value Reference Range Interpretation [...] L [Autom ated message] LDL/HDL) The system [employer] generated this result transmit sissy reference range : 1.48-3.22 Avg. The reference range was not used to interpret this result as normal/abnormal . CBC W/AUTO [id number] 11:01:00 Test Item Value Reference Range Interpretation [...] DIFF/SCN CRITERIA = MDIFF) Coronavirus 2018 nCoV [id number] 18:27:00 Test Item Value Reference Range Interpretation Comments Coronavirus 2019 nCoV Negative Negative Per ma nufacturer, Bedside (test code = negativ e results should EFHAE60AOCNY) be treated aspresumptive a nd, if inconsistent [...] tent with COVID-19. - MRI BRAIN W/O [id number] 16:59:00 [facility] 1955 Sex: M FAX: Pj Brooks MD [phone] Camps: PM St: ADM Name: RADHA LEWIS : 1955 Age/S: 65/M [address] Unit #: [id number] Loc: [place] [address] Phys: Pj Brooks MD Acct: [id number] Dis Date: Status: AD M IN PHONE #: [phone] Exam Date: 12/09/2020 1650 FAX #: Reason: r/o CVA EXAMS: CPT: [id number] MRI BRAIN W/O CONTRAST 68518 EXAM: MRI BRAIN WITHOUT CONTRAST INDICATION: CVA [...] Nielsen M.D. CC: Pj Brooks MD Technologist: Sherlyn White RT(R)(CT) Transcribed Date/Time/By: 12/09/2020 (5338) :[email or web address] Orig Print D/T: S: 12/09/2020 (0556) PAGE 1 Signed ReportUR PROTEIN [id number] 15:35:00 Test Item Value Reference Range Interpretation Comments UR PROTEIN TOTAL (test code = 19.3 MG/DL 0.0-12.0 H PROTU) UR CREATININE [id number] 15:35:00 Test Item Value Reference Range Interpretation Comments UR CREATININE RANDOM (test code = 97.1 MG/DL 30-125 N CREATU) - US RETRO [id number] 15:10:00 [facility] : 1955 Sex: M Name: RADHA LEWIS [facility] : 1955 Age/S: 65 / M [address] Unit #: [id number] Loc: [place] [address] Phys: [facility] [id number] Dis Date: Status: ADM IN PHONE #:[phone] Exam Date: 12/09/2020 1500 FAX #: Reason: evalm of kidney size and echogenicity for ckd EXAMS: CPT: [id number] US RETRO LTD [address] Location of dictation: B2 ULTRASOUND OF THE [...] MD; Gamal Rudd MD Technologist: [facility] Date/Time: 12/09/2020 (5380) [facility] PAGE 1 Signed Report Name: RADHA LEWIS [facility] : 1955 Age/S: 65 / M [address] Unit #: [id number] Loc: [place] [address] Phys: Gamal Rudd MD Acct: [id number] DisDate: Status: ADM IN PHONE #: [phone] Exam Date: 12/09/2020 1500 FAX #: Reason: evalm of kidney size and ec hogenicity for ckd EXAMS: CPT: [id number] RETRO LTD [address] <Continued> Orig Print D/T: S: 12/09/2020 (2122) Probe: PAGE 2 Signed ReportUA RFLX MICR CULT IF [id number] 08:20:00 Test Item Value Reference Range Interpretation [...] Indication for culture: Dysuria/Frequency- XR SHOULDER 2+V [id number] 08:19:00[facility]: RADHA LEWIS : 1955 Sex: M Name: RADHA LEWIS [facility] : 1955 Age/S: 65 / M [address] Unit #: [id number] Loc: [place] [address] Phys: Mode Duran MDAcct: [id number] Dis Date: Status: REG ER PHONE #:[phone] Exam Date: 12/09/2020 0815 FAX #: Reason: trauma EXAMS: CPT: [id number] XR SHOULDER 2+[place] [address] Fluoro Time: DAP (Gy m2): Air Kerma [...] PAGE 1 Signed Report Name: RADHA LEWIS [facility] : 1955 Age/S: 65 / M [address] Unit #: [id number] Loc: [place] [address] Phys: Mode Duran MD Acct: [id number] Dis Date: Status: REG ER PHONE #: [phone] Exam Date: 12/09/2020 0815 FAX #: Reason: trauma EXAMS: CPT: [id number] XR SHOULDER 2+[place] [address] Fluoro Time: DAP (Gy m2): Air Kerma (mGy): <Con tinued> Technologist: Dominguez Molina, RT(R)(CT) Trnscb Date/Time: 12/09/2020 (0819) NikiC Orig Print D/T: S: 12/09/2020 (6555) PAGE 2 Signed ReportBASIC METABOLIC [id number] 08:11:00 Test Item Value Reference Range Interpretation [...] 8.6 MG/DL 8.5-10.1 N Completed by Nursing: [id number] 08:11:00 Test Item Value Reference Range Interpretation [...] shade yby method. Completed by Nursing: NOPROTHROMBIN [id number] 07:54:00 Test Item Value Reference Range Interpretation Comments PT PATIENT (test code = PTP) 11.7 SECONDS 9.3-12.9 N INTERNATIONAL NORMAL RATIO 1.04 INR Unit 0.8-1.2 N (test code = INR) THROMBOPLASTIN TIME [id number] 07:54:00 Test Item Value Reference Range Interpretation Comments THROMBOPLASTIN TIME PARTIAL 33.0 SECONDS 26-35 N (test code = PTT) - CT HEAD/BRAIN W/O [id number] 07:48:00 [facility] : 1955 Sex: M Name: RADHA LEWIS [facility] : 1955 Age/S: 65 / M [address] Unit #: [id number] Loc: [place] [address] Phys: [facility] [id number] Dis Date: Status: PRE ER PHONE #:[phone] Exam Date: 12/09/2020 0737 FAX #: Reason: Code Stroke EXAMS: CPT: [id number] CT HEAD/BRAIN W/O CONT 80355 EXAM:- CT HEAD/BRAIN W/O CONT INDICATION: Code [...] Signed Report (CONTINUED) Name: [facility]WIS [facility] [place] [facility] 1955 Age/S: 65 / M [address] Unit #: [id number] Loc: [place] [address] Phys: Mode Duran MD Acct: [id number] Dis Date: Status: PRE ER PHONE #: [phone] Exam Date: 12/09/2020 0785 FAX #: Reason: Code Stroke EXAMS: CPT: [id number] CT HEAD/BRAIN W/O CONT 70899 <Co ntinued> CC: Mode Duran MD Technologist:Nerissa See, RT(R) CTDI: DLP: Trnscb Date/Time: 12/09/2020 (0748) [email or web address] Orig Print D/T: S: 12/09/2020 (0751) PAGE [...]
--- NOTE | 2021-01-11 11:42 | RAD REPORT ---
EXAM DESCRIPTION: CT - Ct Stroke Brain Wo Cont - 01/11/2021 11:35 am CLINICAL HISTORY: Slurred speech COMPARISON: January 08 1021 TECHNIQUE: Computed axial tomography of the head was obtained. All CT scans are performed using dose optimization technique as appropriate and may include automated exposure control or mA/KV adjustment according to patient size. FINDINGS: An intracranial bleed is not seen . The ventricles are normal in caliber. No extra-axial fluid collection is noted. Old lacunar infarct right basal ganglia Moderate low-density within periventricular, deep and subcortical white matter likely ischemic change s secondary to small vessel disease Fluid within the sinuses/ mastoids is not seen. IMPRESSION: No acute intracranial abnormality is seen. If patient's symptoms persist MRI of the bra in would be recommended. Nubia of the emergency room was notified at 11:35 a.m. January 11, 2021
[2021-01-11] MEDS ORDERED: ALTEPLASE 0 ML IV ONE (11:46)
[2021-01-11 12:04] LABS: Absolute Lymphocytes (CBC) 2.5 K/uL (0.7-4.9); Basophils % 1.3 % (0-1.3); Hematocrit 42.7 % (39.6-49.0); Lymphocytes % 35.9 % (15.3-44.8); RBC Red Blood Cell Count 4.83 M/uL (4.33-5.43)
[2021-01-11] MEDS ORDERED: D50W 25 GM/50 ML SYRINGE IV ONE (12:04)
[2021-01-11 12:10] LABS: Protime INR 0.97
[2021-01-11 12:12] LABS: Potassium 4.6 mmol/L (3.5-5.1)
--- NOTE | 2021-01-11 12:39 | RAD REPORT ---
EXAM DESCRIPTION: RAD - Chest Single View - 01/11/2021 12:32 pm CLINICAL HISTORY: Left sided weakness Chest pain. COMPARISON: Chest Single View dated 03/18/2020; CHEST SINGLE VIEW dated 11/02/2015; CHEST PA AND LAT 2 VIEW dated 09/23/2013; CHEST SINGLE VIEW dated 02/18/2013 FINDINGS: Portable technique limits examination quality. Mild interstitial prominence is present. No focal infiltrate typical of pneumonia. The heart is pam l in size. No displaced fractures.
--- NOTE | 2021-01-11 13:45 | RAD REPORT ---
EXAM DESCRIPTION: MRI - Brain Wo Cont - 01/11/2021 1:31 pm CLINICAL HISTORY: MENTAL STATUS CHANGE Headache, drowsiness, CVA COMPARISON: MRA Head Wo Cont dated 01/11/2021 TECHNIQUE: Multi-sequence, multiplanar MR imaging of the brain was performed without contrast. FINDINGS: No intracranial hemorrhage, hydrocephalus or extra-axial fluid collections.Moderate conflu ent T2/FLAIR hyperintensity in the periventricular and deep white matter is present compatible with c hronic microvascular ischemic changes. No edema or shift of midline structures. No findings to suspec t brain mass. DWI is negative for acute CVA. Midline structures are normally formed. Mastoid air cells and paranasal sinuses are clear. IMPRESSION: Negative for acute CVA or other acute intracranial abnormality.
--- NOTE | 2021-01-11 14:05 | RAD REPORT ---
EXAM DESCRIPTION: MRI - MRA Head Wo Cont - 01/11/2021 1:23 pm CLINICAL HISTORY: MENTAL STATUS CHANGE CVA COMPARISON: Ct Stroke Brain Wo Cont dated 01/11/2021 FINDINGS: 3D noncontrast byrv-[id number] MR angiography of the [place] was performed. No aneurysm, flow-limiting stenosis or vascular malformation is seen. Forward flow seen in codominant vertebral arteries. The visualized dural venous sinuses appear patent. IMPRESSION: No significant flow abnormality of the [place] is identified.
--- NOTE | 2021-01-11 14:11 | EDPHYS ---
Physician Documentation [facility] Name: Channing Marmolejo Age: 65 yrs Sex: Male : 1955 Arrival Date: 01/11/2021 Time: 11:20 Bed 2 Private MD: Farhan [facility] ED Physician Doug Armando HPI: 01/11 12:35 This 65 yrs old Black Male presents to ER via Wheelchair with complaints of S/S of kdr Possible Stroke, Facial Droop. 12:13 The patient was admitted to an outside facility mid November with a right thalamic CVA kdr - this is an absolute exclusion finding and prohibits the patient from receiving t-PA at this time. I have discussed with Dr. Barrera who was familiar with the patient having seen him when here recently for rehab. 12:35 The patient's problem is reported as altered mental status, confused, difficulty kdr walking, a facial droop, on right, dysphasia, dysphagia, weakness, in the left upper extremity, in the left lower extremity. Onset: The symptoms/episode began/occurred suddenly, 0.5 hour(s) ago. Duration: The episode is continuous, getting better - not back to baseline. Context: the episode(s) was witnessed, by family, daughter, symptoms became apparent occurred Dr. Real office, occurred while the patient was at rest, sitting. The symptoms are alleviated by nothing. The symptoms are aggravated by nothing. Severity of symptoms: At their worst the symptoms were mild in the emergency department the symptoms have improved mildly. Patient's baseline: Neuro: alert and fully oriented, Motor: no deficits, Ambulation: walks with assist only. The patient has not experienced similar symptoms in the past. Prior CVA min-November . Historical: - Allergies: 11:40 No Known Allergies; sv - PMHx: 11:40 Carotid artery blockage; COPD; CVA; Hypertension; sv - Immunization history:: Adult Immunizations unknown. - Social history:: Smoking status: unknown. ROS: 12:35 Constitutional: Negative for fever, chills, and weight loss, Eyes: Negative for injury, kdr pain, redness, and discharge, Neck: Negative for injury, pain, and swelling, Cardiovascular: Negative for chest pain, palpitations, and edema, Respiratory: Negative for shortness of breath, cough, wheezing, and pleuritic chest pain, Abdomen/GI: Negative for abdominal pain, nausea, vomiting, diarrhea, and constipation, Back: Negative for injury and pain, : Negative for injury, bleeding, discharge, and swelling, MS/Extremity: Negative for injury and deformity, Skin: Negative for injury, rash, and discoloration, Psych: Negative for depression, anxiety, suicide ideation, homicidal ideation, and hallucinations, Allergy/Immunology: Negative for hives, rash, and allergies, Endocrine: Negative for neck swelling, polydipsia, polyuria, polyphagia, and marked weight changes, Hematologic/Lymphatic: Negative for swollen nodes, abnormal bleeding, and unusual bruising. 12:35 Neuro: Positive for altered mental status, weakness. Exam: 12:27 ECG was reviewed by the Attending Physician. kdr 12:35 Radiologist reports: Negative head kdr 17:13 Constitutional: This is a well developed, well nourished patient who is awake, alert, kdr and in no acute distress. Head/Face: Normocephalic, atraumatic. Eyes: Pupils equal round and reactive to light, extra-ocular motions intact. Lids and lashes normal. Conjunctiva and sclera are non-icteric and not injected. Cornea within normal limits. Periorbital areas with no swelling, redness, or edema. Neck: Trachea midline, no thyromegaly or masses palpated, and no cervical lymphadenopathy. Supple, full range of motion without nuchal rigidity, or vertebral point tenderness. No Meningismus. Chest/axilla: Normal chest wall appearance and motion. Nontender with no deformity. No lesions are appreciated. Cardiovascular: Regular rate and rhythm with a normal S1 and S2. No gallops, murmurs, or rubs. Normal PMI, no JVD. No pulse deficits. Respiratory: Lungs have equal breath sounds bilaterally, clear to auscultation and percussion. No rales, rhonchi or wheezes noted. No increased work of breathing, no retractions or nasal flaring. Abdomen/GI: Soft, non-tender, with normal bowel sounds. No distension or tympany. No guarding or rebound. No evidence of tenderness throughout. Back: No spinal tenderness. No costovertebral tenderness. Full range of motion. Skin: Warm, dry with normal turgor. Normal color with no rashes, no lesions, and no evidence of cellulitis. MS/ Extremity: Pulses equal, no cyanosis. Neurovascular intact. Full, normal range of motion. Psych: Awake, alert, with orientation to person, place and time. Behavior, mood, and affect are within normal limits. 17:13 Neuro: Orientation: appropriate for stated age, Mentation: appropriate for stated age, Cranial nerves: no acute changes, Cerebellar function: no acute changes, Motor: moves all fours, strength is 5/5 in the right arm and right leg, strength is 4/5 in the left arm and left leg. Vital Signs: 11:35 BP 131 / 83; Pulse 75; Resp 15; Temp 97.9(TE); Pulse Ox 100% ; Pain 0/10; jl7 11:45 BP 134 / 75; Pulse 71; Resp 17; Pulse Ox 100% ; jl7 11:45 Weight 66.68 kg; jl7 12:00 BP 127 / 70; Pulse 68; Resp 14; Pulse Ox 100% ; jl7 12:39 BP 117 / 68; Pulse 67; Resp 15; Pulse Ox 100% on R/A; tw2 13:44 BP 135 / 80; Pulse 62; Resp 17; Pulse Ox 100% on R/A; tw2 NIH Stroke Scale Scores: 11:36 NIHSS Score: 6 jl7 12:35 NIHSS Score: 6 kdr MDM: 14:11 Patient medically screened. kdr 17:13 Data reviewed: vital signs, nurses notes, lab test result(s), radiologic studies. kdr Counseling: I had a detailed discussion with the patient and/or guardian regarding: the historical points, exam findings, and any diagnostic results supporting the discharge/admit diagnosis, lab results, radiology results, the need for further work-up and treatment in the hospital. 01/11 11:54 Order name: Basic Metabolic Panel; Complete Time: 14:00 kdr 01/11 11:54 Order name: CBC with Diff; Complete Time: 14:00 kdr 01/11 11:54 Order name: Protime (+inr); Complete Time: 14:00 kdr 01/11 11:54 Order name: Ptt, Activated; Complete Time: 14:00 kdr 01/11 11:56 Order name: Glucose, Ancillary Testing; Complete Time: 14:00 EDMS 01/11 12:47 Order name: Glucose, Ancillary Testing; Complete Time: 14:00 EDMS 01/11 11:30 Order name: CT Stroke Brain w/o Contrast; Complete Time: 11:49 sv 01/11 11:54 Order name: Stroke CXR 1 View; Complete Time: 14:00 kdr 01/11 12:47 Order name: MRA Head Wo Cont; Complete Time: 14:16 EDMS 01/11 12:49 Order name: Brain Wo Cont; Complete Time: 14:00 EDMS 01/11 11:54 Order name: EKG; Complete Time: 11:55 kdr 01/11 11:54 Order name: Accucheck; Complete Time: 12:32 kdr 01/11 11:54 Order name: Cardiac monitoring; Complete Time: 12:32 kdr 01/11 11:54 Order name: EKG - Nurse/Tech; Complete Time: 12:32 kdr 01/11 11:54 Order name: IV Saline Lock; Complete Time: 12:32 kdr 01/11 11:54 Order name: Labs collected and sent; Complete Time: 12:32 kdr 01/11 11:54 Order name: NPO; Complete Time: 12:32 kdr 01/11 11:54 Order name: O2 Per Protocol; Complete Time: 12:32 kdr 01/11 11:54 Order name: O2 Sat Monitoring; Complete Time: 12:32 kdr 01/11 11:54 Order name: Stroke Swallow Screen; Complete Time: 12: kdr 01/11 12:35 Order name: Blood Sugar; Complete Time: 12:35 tw2 EC:27 Rate is 69 beats/min. Rhythm is regular, Normal Sinus Rhythm with No ectopy. QRS Standard kdr is Normal. ND interval is normal. QRS interval is normal. QT interval is normal. Clinical impression: NSR w/ Non-specific ST/T Changes. Administered Medications: 11:48 Drug: D50W 25 ml Route: IVP; Site: left wrist; tw2 12:36 Follow up: Response: No adverse reaction; Blood sugar is elevated tw2 14:16 Not Given (pts condition): Alteplase IV Thrombolytics at calculated rate Per protocol; tw2 0.9 mg/kg IV (Max: 90 mg); give 10% of the total dose as an IV bolus over 1 minute, then give the remaining 90% as an IV infusion over 60 minutes Point of Care Testing: Blood Glucose: 11:45 Blood Glucose: 66 mg/dL; jl7 Ranges: Critical Glucose Levels:Adult <50 mg/dl or >400 mg/dl <40 mg/dl or >180 mg/dl Disposition: 01/11/21 14:11 Patient has left against medical advice. Impression: Weakness - left upper/lower extremity, Facial weakness - right side. - Patients states they are going to Home. - Condition is Fair. - Discharge Instructions: Weakness, [id number]. Medication Reconciliation Form, Thank You Letter form. Follow up: Arnoldo Real, ; When: 2 - 3 days; Reason: If symptoms return, Further diagnostic work-up, Recheck today's complaints, Continuance of care, Re-evaluation by your physician. - Problem is an acute exacerbation. - Symptoms have improved. NIH Stroke Scale - NIH Stroke Score Date: 01/11/2021 Time: 11:36 Total Score = 6 1a. Level of Consciousness (LOC) - 0(Alert) 1b. Level of Consciousness (LOC) (Year \T\ Age) - 0(Both) 1c. LOC Commands (Open \T\ Closes Eyes/Regional Sales Representative) - 0(Both) 2. Best Gaze (Lateral Gaze Paresis) - 0(Normal) 3. Visual Field Loss - 0(No visual loss) 4. Facial Palsy - 1(Minor Paralysis) 5a. Left Arm: Motor (10-second hold) - 1(Drift) 5b. Right Arm: Motor (10-second hold) - 0(No drift) 6a. Left Leg: Motor (5-second hold - always test supine) - 1(Drift) 6b. Right Leg: Motor (5-second hold - always test supine) - 0(No drift) 7. Limb Ataxia (finger/nose \T\ heel/armenta - test with eyes open) - 1(Present in one limb) 8. Sensory Loss (pinprick arms/legs/face) - 0(Normal) 9. Best Language: Aphasia (description/naming/reading) - 1(Mild to moderate aphasia) 10. Dysarthria (speech clarity - read or repeat words) - 1(Mild to Moderate) 11. Extinction and Inattention (visual/tactile/auditory/spatial/personal) - 0(No abnormality) Initials: jl7 NIH Stroke Scale - NIH Stroke Score Date: 01/11/2021 Time: 12:35 Total Score = 6 1a. Level of Consciousness (LOC) - 0(Alert) 1b. Level of Consciousness (LOC) (Year \T\ Age) - 0(Both) 1c. LOC Commands (Open \T\ Closes Eyes/Regional Sales Representative) - 0(Both) 2. Best Gaze (Lateral Gaze Paresis) - 0(Normal) 3. Visual Field Loss - 0(No visual loss) 4. Facial Palsy - 1(Minor Paralysis) 5a. Left Arm: Motor (10-second hold) - 1(Drift) 5b. Right Arm: Motor (10-second hold) - 0(No drift) 6a. Left Leg: Motor (5-second hold - always test supine) - 1(Drift) 6b. Right Leg: Motor (5-second hold - always test supine) - 0(No drift) 7. Limb Ataxia (finger/nose \T\ heel/armenta - test with eyes open) - 1(Present in one limb) 8. Sensory Loss (pinprick arms/legs/face) - 0(Normal) 9. Best Language: Aphasia (description/naming/reading) - 1(Mild to moderate aphasia) 10. Dysarthria (speech clarity - read or repeat words) - 1(Mild to Moderate) 11. Extinction and Inattention (visual/tactile/auditory/spatial/personal) - 0(No abnormality) Initials: kdr Signatures: Dispatcher [employer] [facility] Kena Armando, RN RN Doug Bateman MD MD [facility] Quin Salinas RN RN tw2 Yelitza Sheldon RN RN jl7 Corrections: (The following items were deleted from the chart) 12:40 11:55 Head Angio+CT.RAD.BRZ ordered. [facility] 12:47 12:40 MR STROKE PROTOCOL+MRI.RAD.BRZ ordered. [facility] EDRI 14:17 14:11 01/11/2021 14:11 Discharged to Home. Impression: Weakness - left tw2 upper/lower extremity; Facial weakness - right side. Condition is Fair. Forms are Medication Reconciliation Form, Thank You Letter, Antibiotic Education, Prescription Opioid Use. Follow up: Arnoldo Real; When: 2 - 3 days; Reason: If symptoms return, Further diagnostic work-up, Recheck today's complaints, Continuance of care, Re-evaluation by your physician. Problem is an acute exacerbation. Symptoms have improved. kdr 14:27 14:17 01/11/2021 14:11 Discharged to Home. Impression: Weakness - left kdr upper/lower extremity; Facial weakness - right side. Condition is Fair. Discharge Instructions: Weakness, [id number]. Forms are Medication Reconciliation Form, Thank You Letter. Follow up: Arnoldo Real; When: 2 - 3 days; Reason: If symptoms return, Further diagnostic work-up, Recheck today's complaints, Continuance of care, Re-evaluation by your physician. Problem is an acute exacerbation. Symptoms have improved. tw2 14:31 14:27 01/11/2021 14:11 Patients has left against medical advice. Impression: tw2 Weakness - left upper/lower extremity; Facial weakness - right side. Patient states they are going to Home. Condition is Fair. Discharge Instructions: Weakness, [id number]. Forms are Medication Reconciliation Form, Thank You Letter. Follow up: Arnoldo Farhan; When: 2 - 3 days; Reason: If symptoms return, Further diagnostic work-up, Recheck today's complaints, Continuance of care, Re-evaluation by your physician. Problem is an acute exacerbation. Symptoms have improved. kdr
--- NOTE | 2021-01-11 14:11 | ER ---
Nurse's Notes [facility] Name: Channing Marmolejo Age: 65 yrs Sex: Male : 1955 Arrival Date: 01/11/2021 Time: 11:20 Bed 2 Private MD: Arnoldo Real Diagnosis: Weakness-left upper/lower extremity;Facial weakness-right side Presentation: 01/11 11:20 Chief complaint: Patient's son or daughter states: she went to get pt at his house sv around 0830 and he was normal. She took him to Dr Real's office for a new pt appt. They said his BP was 77/45. She noticed about 30 mins ago that pt started having left sided facial droop, fatigued, slurred speech, and not making sense when speaking. Daughter stated that he was just discharged from rehab from a CVA last week. An acute neurological deficit is present. The charge nurse has been notified. The patient has been moved to a treatment area. Risk Assessment: Do you want to hurt yourself or someone else? Patient reports no desire to harm self or others. Onset of symptoms was January 11, 2021. 11:20 Method Of Arrival: Wheelchair sv 11:20 Acuity: KANWAL 2 sv 11:52 Ebola Screen: Patient denies travel to an Ebola-affected area in the 21 days before tw2 illness onset. Stroke Activation: Symptom onset < 3 hours Physician: Stroke Attending; Name: ; Notified At: ; Arrived At: Physician: Chief Stroke Resident; Name: ; Notified At: ; Arrived At: Physician: Stroke Resident; Name: ; Notified At: ; Arrived At: Physician: ED Attending; Name: Dr Armando; Notified At: 11:25; Arrived At: Physician: ED Resident; Name: ; Notified At: ; Arrived At: Historical: - Allergies: 11:40 No Known Allergies; sv - PMHx: 11:40 Carotid artery blockage; COPD; CVA; Hypertension; sv - Immunization history:: Adult Immunizations unknown. - Social history:: Smoking status: unknown. Screenin:36 Abuse screen: Denies threats or abuse. Nutritional screening: No deficits noted. tw2 Tuberculosis screening: No symptoms or risk factors identified. Fall Risk Secondary diagnosis (15 points) impaired mobility, CVA. Assessment: 11:26 Reassessment: Pt to CT via wheelchair by myself. sv 11:36 Reassessment: Dr Armando at the bedside to assess pt. sv 11:36 VAN Scoring: Arm Drift: Minor drift Visual Disturbance: No visual disturbance noted. jl7 Aphasia: Expressive aphasia noted. Provider notified of +VAN scoring. 11:37 Reassessment: Dr Ramos called and said that the CT head has nothing acute. sv 11:50 Patient has been NPO before screening. The patient is alert, and able to follow tw2 commands. The patient exhibits slurred or garbled speech. The patient is not exhibiting difficulty speaking. The patient does not exhibit difficulty understanding words. The patient is able to swallow own secretions with no drooling or need for suction. The patient did not tolerate one teaspoon of water. Drooling, immediate coughing, gurgling, or clearing of the throat was noted. Bedside swallow screening discontinued. Patient kept NPO until cleared by Speech Therapy or Physician. pt states "i feel like i am having trouble swallowing", provider notified The patient failed the bedside swallow screening. The patient will be kept NPO until cleared by Speech Therapy or Physician. Provider notified of bedside swallow screening results: Doug Armando MD. 11:52 The patient did not tolerate 90mL of water. Drooling, immediate coughing, gurgling, or tw2 clearing of the throat was noted. eval stopped after tsp of water. 12:00 General: Appears in no apparent distress. uncomfortable, Behavior is calm, cooperative, jl7 appropriate for age. Pain: Denies pain. Neuro: Level of Consciousness is awake, alert, obeys commands, Oriented to person, place, time, situation, Graphic Artist are weak on left Gait is unsteady, Speech is slurred, with expressive aphasia noted, Facial droop on left. Cardiovascular: Denies chest pain, Patient's skin is warm and dry. Respiratory: Airway is patent Respiratory effort is even, unlabored, Respiratory pattern is regular, symmetrical, Denies shortness of breath. GI: Patient currently denies diarrhea, nausea, vomiting. Derm: Skin is dry, Skin is normal, Skin temperature is warm. 12:13 T-PA (Activase) Screening: Contraindications: Other: previous CVA with in 3 months. tw2 12:39 Reassessment: Patient appears in no apparent distress at this time. No changes from tw2 previously documented assessment. Patient and/or family updated on plan of care and expected duration. Pain level reassessed. Patient is alert, oriented x 3, equal unlabored respirations, skin warm/dry/pink. 13:46 Reassessment: Patient appears in no apparent distress at this time. No changes from tw2 previously documented assessment. Patient and/or family updated on plan of care and expected duration. Pain level reassessed. Patient is alert, oriented x 3, equal unlabored respirations, skin warm/dry/pink. 14:05 Reassessment: provider at bedside at this time. tw2 Vital Signs: 11:35 BP 131 / 83; Pulse 75; Resp 15; Temp 97.9(TE); Pulse Ox 100% ; Pain 0/10; jl7 11:45 BP 134 / 75; Pulse 71; Resp 17; Pulse Ox 100% ; jl7 11:45 Weight 66.68 kg; jl7 12:00 BP 127 / 70; Pulse 68; Resp 14; Pulse Ox 100% ; jl7 12:39 BP 117 / 68; Pulse 67; Resp 15; Pulse Ox 100% on R/A; tw2 13:44 BP 135 / 80; Pulse 62; Resp 17; Pulse Ox 100% on R/A; tw2 NIH Stroke Scale Scores: 11:36 NIHSS Score: 6 jl7 12:35 NIHSS Score: 6 kdr ED Course: 10:52 EKG done, by ED staff, reviewed by Doug Armando MD. sv 11:20 Patient arrived in ED. am2 11:20 Arnoldo Real DO is Private Physician. am2 11:30 Placed in gown. Bed in low position. Call light in reach. monitoring tech on. Pulse ox tw2 on. NIBP on. 11:35 CT Stroke Brain w/o Contrast In Process Unspecified. EDMS 11:40 Triage completed. sv 11:40 Arm band placed on. sv 11:45 Missed attempt(s): 20 gauge in left antecubital area. Bleeding controlled, band aid tw2 applied, catheter tip intact. Inserted saline lock: 20 gauge in right wrist, using aseptic technique. Inserted saline lock: 20 gauge in left wrist, using aseptic technique. ,using aseptic technique. by USHA Torre Blood collected. 11:47 Yelitza Sheldon RN is Primary Nurse. jl7 11:49 Doug Armando MD is Attending Physician. kdr 12:32 Stroke CXR 1 View In Process Unspecified. EDMS 13:20 MRA Head Wo Cont In Process Unspecified. EDMS 13:20 Brain Wo Cont In Process Unspecified. EDMS 14:06 initiated transfer to [facility]. bd 14:09 Arnoldo Real DO is Referral Physician. kdr 14:[address] Armando. bd 14:16 IV discontinued, intact, bleeding controlled, No redness/swelling at site. Pressure tw2 dressing applied, x2. Administered Medications: 11:48 Drug: D50W 25 ml Route: IVP; Site: left wrist; tw2 12:36 Follow up: Response: No adverse reaction; Blood sugar is elevated tw2 14:16 Not Given (pts condition): Alteplase IV Thrombolytics at calculated rate Per protocol; tw2 0.9 mg/kg IV (Max: 90 mg); give 10% of the total dose as an IV bolus over 1 minute, then give the remaining 90% as an IV infusion over 60 minutes Point of Care Testing: Blood Glucose: 11:45 Blood Glucose: 66 mg/dL; jl7 Ranges: Outcome: 14:11 Discharge ordered by . kdr 14:16 AMA AMA form signed tw2 14:17 Patient left the ED. tw2 14:31 Patient left the ED. tw2 NIH Stroke Scale - NIH Stroke Score Date: 01/11/2021 Time: 11:36 Total Score = 6 1a. Level of Consciousness (LOC) - 0(Alert) 1b. Level of Consciousness (LOC) (Year \\T\\ Age) - 0(Both) 1c. LOC Commands (Open \\T\\ Closes Eyes/Lockstitch Machine Operator) - 0(Both) 2. Best Gaze (Lateral Gaze Paresis) - 0(Normal) 3. Visual Field Loss - 0(No visual loss) 4. Facial Palsy - 1(Minor Paralysis) 5a. Left Arm: Motor (10-second hold) - 1(Drift) 5b. Right Arm: Motor (10-second hold) - 0(No drift) 6a. Left Leg: Motor (5-second hold - always test supine) - 1(Drift) 6b. Right Leg: Motor (5-second hold - always test supine) - 0(No drift) 7. Limb Ataxia (finger/nose \\T\\ heel/amrenta - test with eyes open) - 1(Present in one limb) 8. Sensory Loss (pinprick arms/legs/face) - 0(Normal) 9. Best Language: Aphasia (description/naming/reading) - 1(Mild to moderate aphasia) 10. Dysarthria (speech clarity - read or repeat words) - 1(Mild to Moderate) 11. Extinction and Inattention (visual/tactile/auditory/spatial/personal) - 0(No abnormality) Initials: jl7 NIH Stroke Scale - NIH Stroke Score Date: 01/11/2021 Time: 12:35 Total Score = 6 1a. Level of Consciousness (LOC) - 0(Alert) 1b. Level of Consciousness (LOC) (Year \\T\\ Age) - 0(Both) 1c. LOC Commands (Open \\T\\ Closes Eyes/Lockstitch Machine Operator) - 0(Both) 2. Best Gaze (Lateral Gaze Paresis) - 0(Normal) 3. Visual Field Loss - 0(No visual loss) 4. Facial Palsy - 1(Minor Paralysis) 5a. Left Arm: Motor (10-second hold) - 1(Drift) 5b. Right Arm: Motor (10-second hold) - 0(No drift) 6a. Left Leg: Motor (5-second hold - always test supine) - 1(Drift) 6b. Right Leg: Motor (5-second hold - always test supine) - 0(No drift) 7. Limb Ataxia (finger/nose \\T\\ heel/armenta - test with eyes open) - 1(Present in one limb) 8. Sensory Loss (pinprick arms/legs/face) - 0(Normal) 9. Best Language: Aphasia (description/naming/reading) - 1(Mild to moderate aphasia) 10. Dysarthria (speech clarity - read or repeat words) - 1(Mild to Moderate) 11. Extinction and Inattention (visual/tactile/auditory/spatial/personal) - 0(No abnormality) Initials: kdr Signatures: Dispatcher [employer] EDMS Nikia Jang Stephanie RN RN sv Doug Armando MD MD [facility] Quin Salinas RN RN tw2 Yelitza Sheldon RN RN jl7 Leslie Massey am2 Corrections: (The following items were deleted from the chart) 11:41 11:20 Chief complaint: Patient's son or daughter states: she went to get pt at his house around 0830 and he was normal. She took him to Dr Real's office for a new pt appt. They said his BP was 77/45. She noticed about 30 mins ago that pt started having left sided facial droop, fatigued, slurred speech, and not making sense when speaking. 14:05 11:36 NIHSS Score: 2 tw2 jl7
[2021-01-11 14:27] VITALS: O2SAT 100
[2021-01-11 14:30] VITALS: BP 135/80
[2021-01-11 14:38] VITALS: TEMP 97.9
--- NOTE | 2021-01-12 16:50 | EKG ---
Test Date: 2021-01-11 Test Time: 10:52:49 Contact Manager: NIURKA MEASUREMENT RESULTS: Intervals: Rate: 69 CA: 160 QRSD: 76 QT: 384 QTc: 411 [place]: P: 65 CA: 160 QRS: 18 T: 43 INTERPRETIVE STATEMENTS: Normal sinus rhythm ST elevation, probably due to early repolarization Borderline ECG Compared to ECG 03/18/2020 19:07:40 ST (T wave) deviation now present Early repolarization now present Electronically Signed On 01-12-21 16:47:57 CDT by Kin Bennett
== END 2021-01-11 14:31 | disposition left against medical advice (07) ==
LOC: ER 11:17
DX: R53.1 Weakness (principal); I10 Essential (primary) hypertension; R29.706 NIHSS score 6; Z86.73 Personal history of transient ischemic attack (TIA), and cerebral infarction without residual deficits
CPT/HCPCS: 36415; 70450; 70544; 70551; 71045; 80048; 82947; 85025; 85610; 85730; 93005; 96374; 99285; J2997

== ENCOUNTER 2021-03-23 21:01 | Emergency (ER) | payer OTHER ==
--- OUTSIDE RECORDS SUMMARY | 2021-03-23 21:05 | XMS REPORT | Continuity of Care Document ---
:1955 Author Organization [facility] t Address [address] [place] [address] Care Team Providers Name Role Phone Unavailable Unavailable Unavailable Payers Payer Name Policy Type Policy Number Effective Date Expiration Date S ource Problems This patient has no known problems. Allergies, Adverse Reactions, Alerts Allergy Allergy Status Severity Reaction(s) Onset Inactive Treating Comm ents Source Name Type Date Date Clinician No Known DA Active [facility] Allergie 2-11 [place] s 00:00: d 00 [facility] Medications This patient has no known medications. Procedures This patient has no known procedures. Encounters Start End Encounter Admission Attending Care Care Encounter Source Date/Time Date/Time Type Type Clinicians Facility Department ID 2021-02-28 2021-02-28 Outpatient [facility] [address] [facility] 13:19:00 13:19:00 Results Test Description Test Time Test Comments Results Result Comments Source GLUCOSE BEDSIDE TESTING 2020-12-13 06:38:00 Test Item Value Reference Range Interpretation Comme nts GLUCOSE BEDSIDE TESTING (test code = GLUBED) 93 mg/dL 70-110 N BASIC METABOLIC [id number] 06:24:00 Test Item Value Reference Range Interpretation [...] CA) 8.8 MG/DL 8.5-10.1 N GLUCOSE BEDSIDE [id number] 17:01:00 Test Item Value Reference Range Interpretation Comments GLUCOSE BEDSIDE TESTING (test code 220 mg/dL 70-110 H = GLUBED) GLUCOSE BEDSIDE [id number] 11:37:00 Test Item Value Reference Range Interpretation Comments GLUCOSE BEDSIDE TESTING (test code = 86 mg/dL 70-110 N GLUBED) GLUCOSE BEDSIDE [id number] 08:10:00 Test Item Value Reference Range Interpretation Comments GLUCOSE BEDSIDE TESTING (test code = 86 mg/dL 70-110 N GLUBED) BASIC METABOLIC [id number] 05:12:00 Test Item Value Reference Range Interpretation [...] CA) 8.6 MG/DL 8.5-10.1 N BASIC METABOLIC [id number] 05:07:00 Test Item Value Reference Range Interpretation [...] CA) 8.6 MG/DL 8.5-10.1 N GLUCOSE BEDSIDE [id number] 20:21:00 Test Item Value Reference Range Interpretation Comments GLUCOSE BEDSIDE TESTING (test code 119 mg/dL 70-110 H = GLUBED) - CT HEAD/BRAIN W/O [id number] 18:46:00 [facility] : 1955 Sex: M Name: RADHA LEWIS [facility]ly [facility] : 1955 Age/S: 65 / M [id number] Unit #: [id number] Loc: [place] [address] Phys: Michele Thompson [facility] [id number] Dis Date: Status: ADM IN PHONE #:[phone] Exam Date: 12/10/2020 1843 FAX #: Reason: decrease loc since yesterday EXAMS: CPT: [id number] CT HEAD/BRAIN W/O CONT 51110 EXAM: CT BRAIN WITHOUT CONTRAST INDICATION: decrease [...] 1 Signed Report (CONTINUED) Name: RADHA LEWIS [facility] : 1955 Age/S: 65 / M [address] Unit #: [id number] Loc: [place] [address] Phys: Michele Thompson MD Acct: [id number] Dis Date: Status: ADM IN PHONE #: [phone] ExamDate: 12/10/2020 184 FAX #: Reason: decrease loc since yesterday EXAMS: CPT: [id number] CT HEAD/BRAIN W/O CONT 98919 <Continued> CC: Michele Thompson MD; Pj Brooks MD Technologist:Sherlyn White, RT(R)(CT);En CTDI: DLP: Trnscb Date/Time: 12/10/2020 (1845) 16 Orig Print D/T: S: 12/10/2020 (1848) PAGE 2 Signed Report- DUP EXTRACRANIAL [id number] 14:30:00 [facility] 1955 Sex: M Name: RADHA LEWIS : 1955 Age/S: 65 / M [address] Unit #: [id number] Loc: [place] [address] Phys: Pj Brooks MDAcct: [id number] Dis Date: Status: ADM IN PHONE #:[phone] Exam Date: 12/10/2020 1400 FAX #: Reason: ISCHEMIC STROKE EXAMS: CPT: [id number] DUP EXTRACRANIAL LAINEY 23127 Dictation location A1 Carotid Doppler Ultrasound HISTORY: [...] 12/10/2020 (1430) JeriPXC PAGE 1 Signed Report Name:RDAHA LEWIS : 1955 Age/S: 65 / M [address] Unit #: [id number] Loc: [place] [address] Phys: Pj Brooks MD Acct: [id number] Dis Date: Status: ADM IN PHONE #: [phone] Exam Date: 12/10/2020 1400 FAX #: Reason: ISCHEMIC STROKE EXAMS: CPT: [id number] DUP EXTRACRANIAL LAINEY [address]05 <Continued> Orig Print D/T: S: 12/10/2020 (1433) Probe: PAGE 2 Signed ReportGLYCOSYLATED HEMOGLOBIN [id number] 11:30:00 Test Item Value Reference Range Interpretation Comments GLYCOSYLATED HEMOGLOBIN (HA1C) 5.8 % A1C 0.0-5.7 H (test code = GLYHGB) ESTIMATED AVERAGE GLUCOSE (test 120 MG/DLest code = EAG) COMPREHENSIVE METABOLIC [id number] 11:29:00 Test Item Value Reference Range Interpretation [...] L [Autom ated message] LDL/HDL) The system [employer] h generated this result transmit sissy reference range : 1.48-3.22 Avg. The reference range was not used to interpret this result as normal/abnormal . CBC W/AUTO [id number] 11:01:00 Test Item Value Reference Range Interpretation [...] DIFF/SCN CRITERIA = MDIFF) Coronavirus 2018 nCoV [id number] 18:27:00 Test Item Value Reference Range Interpretation Comments Coronavirus 2019 nCoV Negative Negative Per ma nufacturer, Bedside (test code = negativ e results should [id number]) be treated aspresumptive a nd, if inconsistent [...] tent with COVID-19. - MRI BRAIN W/O [id number] 16:59:00 [facility] : 1955 Sex: M FAX: Pj Brooks MD [phone] Camps: PM St: ADM Name: DEBBIERADHA [facility] : 1955 Age/S: 65/M [address] [facility] [address] Unit #: [id number] Loc: [place] [address] Phys: Pj Brooks MD Acct: [id number] Dis Date: Status: AD M IN PHONE #: [phone] Exam Date: 12/09/2020 1650 FAX #: Reason: r/o CVA EXAMS: CPT: [id number] MRI BRAIN W/O CONTRAST 39000 EXAM: MRI BRAIN WITHOUT CONTRAST INDICATION: CVA [...] M.D. CC: Pj Brooks MD Technologist: Sherlyn White, RT(R)(CT) Transcribed Date/Time/By: 12/09/2020 (2743) :[email or web address] Orig Print D/T: S: 12/09/2020 (5311) PAGE 1 Signed ReportUR PROTEIN [id number] 15:35:00 Test Item Value Reference Range Interpretation Comments UR PROTEIN TOTAL (test code = 19.3 MG/DL 0.0-12.0 H PROTU) UR CREATININE [id number] 15:35:00 Test Item Value Reference Range Interpretation Comments UR CREATININE RANDOM (test code = 97.1 MG/DL 30-125 N CREATU) - US RETRO [id number] 15:10:00 [facility] : 1955 Sex: M Name: RADHA LEWIS [facility] : 1955 Age/S: 65 / M [address] Unit #: [id number] Loc: [place] [address] Phys: Gamal Rudd MDAcct: [id number] Dis Date: Status: ADM IN PHONE #:[phone] Exam Date: 12/09/2020 1500 FAX #: Reason: evalm of kidney size and echogenicity for ckd EXAMS: CPT: [id number] [email or web address] [address] Location of dictation: B2 ULTRASOUND OF THE [...] MD; Gamal Rudd MD Technologist: Nicole Landin [facility] Date/Time: 12/09/2020 (1510) JeriPX PAGE 1 Signed Report Name: RADHA LEWIS [place] : 1955 Age/S: 65 / M [address] Unit #: [id number] Loc: [place] [address] Phys: Gamal Rudd MD Acct: [id number] DisDate: Status: ADM IN PHONE #: [phone] Exam Date: 12/09/2020 1500 FAX #: Reason: evalm of kidney size and ec hogenicity for ckd EXAMS: CPT: [id number] [email or web address] 31693 <Continued> Orig Print D/T: S: 12/09/2020 (6731) Probe: PAGE 2 Signed ReportUA RFLX MICR CULT IF [id number] 08:20:00 Test Item Value Reference Range Interpretation [...] Indication for culture: Dysuria/Frequency- XR SHOULDER 2+V [id number] 08:19:00[facility] : 1955 [facility]: [facility] 1955 Age/S: 65 / M [id number] Unit #: [id number] Loc: [place] [address] Phys: Mode Duran MDAcct: [id number] Dis Date: Status: REG ER PHONE #:[phone] Exam Date: 12/09/2020 0815 FAX #: Reason: trauma EXAMS: CPT: [id number] XR SHOULDER 2+[place] [address] Fluoro Time: DAP (Gy m2): Air Kerma [...] MD PAGE 1 Signed Report Name: [place] : 1955 Age/S: 65 / M [address] Unit #: [id number] Loc: [place] [address] Phys: Mode Duran MD Acct: [id number] Dis Date: Status: REG ER PHONE #: [phone] Exam Date: 12/09/2020 0815 FAX #: Reason: trauma EXAMS: CPT: [id number] XR SHOULDER 2+[place] [address] Fluoro Time: DAP (Gy m2): Air Kerma (mGy): <Con tinued> Technologist: Dominguez Molina, RT(R)(CT) Trnscb Date/Time: 12/09/2020 (818) Vivien Orig Print D/T: S: 12/09/2020 (8422) PAGE 2 Signed ReportBASIC METABOLIC [id number] 08:11:00 Test Item Value Reference Range Interpretation [...] 8.6 MG/DL 8.5-10.1 N Completed by Nursing: [id number] 08:11:00 Test Item Value Reference Range Interpretation [...] shade yby method. Completed by Nursing: NOPROTHROMBIN [id number] 07:54:00 Test Item Value Reference Range Interpretation Comments PT PATIENT (test code = PTP) 11.7 SECONDS 9.3-12.9 N INTERNATIONAL NORMAL RATIO 1.04 INR Unit 0.8-1.2 N (test code = INR) THROMBOPLASTIN TIME [id number] 07:54:00 Test Item Value Reference Range Interpretation Comments THROMBOPLASTIN TIME PARTIAL 33.0 SECONDS 26-35 N (test code = PTT) - CT HEAD/BRAIN W/O [id number] 07:48:00 [facility] : 1955 Sex: M Name: RADHA LEWIS [facility] : 1955 Age/S: 65 / M [address] Unit #: [id number] Loc: [place] [address] Phys: Mode Duran [facility] [id number] Dis Date: Status: PRE ER PHONE #:[phone] Exam Date: 12/09/2020 0737 FAX #: Reason: Code Stroke EXAMS: CPT: [id number] CT HEAD/BRAIN W/O CONT 32397 EXAM:- CT HEAD/BRAIN W/O CONT INDICATION: Code [...] 1 Signed Report (CONTINUED) Name: RADHA LEWIS [facility] : 1955 Age/S: 65 / M [address] Unit #: [id number] Loc: [place] [address] Phys: Mode Duran MD Acct: [id number] Dis Date: Status: PRE ER PHONE #: [phone] Exam Date: 12/09/2020 0737 FAX #: Reason: Code Stroke EXAMS: CPT: [id number] CT HEAD/BRAIN W/O CONT 02886 <Co ntinued> CC: Mode Duran MD Technologist:Nerissa See, RT(R) CTDI: DLP: Trnscb Date/Time: 12/09/2020 (07) JeriAH26 Orig Print D/T: S: 12/09/2020 (0751) [...]
[2021-03-23 23:06] LABS: BUN Blood Urea Nitrogen 16 mg/dL (7-18); Bicarbonate 19 mmol/L (21-32); Glucose Level 103 mg/dL (74-106); Magnesium 2.4 mg/dL (1.8-2.4); NT PRO-BNP 300 pg/mL (<125); Potassium 3.9 mmol/L (3.5-5.1); Sodium Level 143 mmol/L (136-145); Troponin (Emerg Dept Use Only) < 0.02 ng/mL (0.0-0.045)
--- NOTE | 2021-03-24 00:25 | ER ---
Nurse's Notes [facility] Name: Channing Marmolejo Age: 66 yrs Sex: Male : 1955 Arrival Date: 03/23/2021 Time: 21:08 Bed 17 Private MD: Diagnosis: Alcohol abuse with intoxication Presentation: 03/23 21:00 Chief complaint: EMS states: We were called out because the family thought the patient kenia had a stroke. He admits to having 2 24oz beers, was in the bathroom vomiting in the bathtub and fell in the floor. Is A\T\Ox4, stroke scale is negative. BGL 147. 21:00 Coronavirus screen: Client denies travel out of the [place] in the last 14 days. Client kenia presents with at least one sign or symptom that may indicate coronavirus-19. Ebola Screen: No symptoms or risks identified at this time. Initial Sepsis Screen: Does the patient meet any 2 criteria? No. Patient's initial sepsis screen is negative. Does the patient have a suspected source of infection? No. Patient's initial sepsis screen is negative. Risk Assessment: Do you want to hurt yourself or someone else? Patient reports no desire to harm self or others. Onset of symptoms was March 23, 2021. Transition of care: patient was not received from another setting of care. 21:00 Method Of Arrival: EMS: [facility] 21:00 Acuity: KANWAL 3 jb4 Historical: - Allergies: 21:24 No Known Allergies; jb4 - Home Meds: 21:24 tamsulosin oral oral [Active]; carvedilol oral oral [Active]; Bupropion Oral [Active]; jb4 atorvastatin oral oral [Active]; Aspirin Oral [Active]; amlodipine oral [Active]; quetiapine oral oral [Active]; - PMHx: 21:24 Carotid artery blockage; COPD; CVA; Hypertension; jb4 - Social history:: Patient/guardian denies using alcohol, street drugs, The patient lives with family. - Family history:: not pertinent, pertinent for. Screenin:20 Abuse screen: Denies threats or abuse. Nutritional screening: No deficits noted. jb4 Tuberculosis screening: No symptoms or risk factors identified. Fall Risk None identified. Assessment: 21:20 General: Appears in no apparent distress. comfortable, Behavior is calm, cooperative, jb4 appropriate for age, Smells of alcohol. Pain: Denies pain. Neuro: Level of Consciousness is awake, alert, obeys commands, Oriented to person, place, time, situation. Cardiovascular: Patient's skin is warm and dry. Respiratory: Airway is patent Respiratory effort is even, unlabored, Respiratory pattern is regular, symmetrical. GI: No signs and/or symptoms were reported involving the gastrointestinal system. : No signs and/or symptoms were reported regarding the genitourinary system. EENT: No signs and/or symptoms were reported regarding the EENT system. Derm: Skin is intact, Skin is dry, Skin is normal, Skin temperature is warm. Musculoskeletal: Circulation, motion, and sensation intact. Range of motion: intact in all extremities. 22:00 Reassessment: Patient appears in no apparent distress at this time. Patient and/or jb4 family updated on plan of care and expected duration. Pain level reassessed. Patient is alert, oriented x 3, equal unlabored respirations, skin warm/dry/pink. 23:00 Reassessment: Patient appears in no apparent distress at this time. Patient and/or jb4 family updated on plan of care and expected duration. Pain level reassessed. Patient is alert, oriented x 3, equal unlabored respirations, skin warm/dry/pink. 03/24 00:43 Reassessment: Patient appears in no apparent distress at this time. Patient and/or jb4 family updated on plan of care and expected duration. Pain level reassessed. Patient is alert, oriented x 3, equal unlabored respirations, skin warm/dry/pink. Vital Signs: 03/23 21:00 BP 141 / 89; Pulse 88; Resp 16; Temp 99.0(O); Pulse Ox 97% on R/A; Weight 72.57 kg (R); jb4 Height 5 ft. 11 in. (180.34 cm) (R); Pain 0/10; 22:00 BP 154 / 85; Pulse 76; Resp 16; Pulse Ox 98% on R/A; jb4 23:00 BP 153 / 79; Pulse 83; Resp 19; Pulse Ox 97% on R/A; jb4 03/24 00:00 BP 168 / 75; Pulse 85; Resp 16; Pulse Ox 97% on R/A; jb4 03/23 21:00 Body Mass Index 22.32 (72.57 kg, 180.34 cm) jb4 ED Course: 03/23 21:08 Patient arrived in ED. bp1 21:13 Dean Gray MD is Attending Physician. ma2 21:15 Rick Sutton, RN is Primary Nurse. jb4 21:20 Patient has correct armband on for positive identification. Bed in low position. Call jb4 light in reach. Side rails up X 1. pvc monitor on. Pulse ox on. NIBP on. 21:22 Triage completed. jb4 21:33 Arm band placed on right wrist. jb4 21:41 CT Head C Spine In Process Unspecified. EDMS 21:52 XRAY Chest (1 view) In Process Unspecified. EDMS 03/24 00:44 No provider procedures requiring assistance completed. IV discontinued, intact, jb4 bleeding controlled, No redness/swelling at site. Pressure dressing applied. Administered Medications: No medications were administered Outcome: 00:25 Discharge ordered by . [facility] 00:44 Discharged to home via wheelchair, with family. jb4 00:44 Condition: stable 00:44 Discharge instructions given to patient, family, Instructed on discharge instructions, follow up and referral plans. Demonstrated understanding of instructions, follow-up care. 00:44 Patient left the ED. jb4 Signatures: Dispatcher [employer] EDRick Awad, RN RN jb4 Dean Gray MD MD ma2 Kristen Lewis bp1
--- NOTE | 2021-03-24 00:25 | EDPHYS ---
Physician Documentation [facility] Name: Channing Marmolejo Age: 66 yrs Sex: Male : 1955 Arrival Date: 03/23/2021 Time: 21:08 Bed 17 Private MD: ED Physician Dean Gray HPI: 03/23 21:20 This 66 yrs old Black Male presents to ER via Unassigned with complaints of intoxicated ma2 with alcohol. 21:20 Onset: The symptoms/episode began/occurred gradually, 1 day(s) ago. Severity of ma2 symptoms: At their worst the symptoms were mild in the emergency department the symptoms are unchanged. The patient has not experienced similar symptoms in the past. Historical: - Allergies: 21:24 No Known Allergies; jb4 - Home Meds: 21:24 tamsulosin oral oral [Active]; carvedilol oral oral [Active]; Bupropion Oral [Active]; jb4 atorvastatin oral oral [Active]; Aspirin Oral [Active]; amlodipine oral [Active]; quetiapine oral oral [Active]; - PMHx: 21:24 Carotid artery blockage; COPD; CVA; Hypertension; jb4 - Social history:: Patient/guardian denies using alcohol, street drugs, The patient lives with family. - Family history:: not pertinent, pertinent for. ROS: 21:20 Constitutional: Negative for fever, chills, and weight loss. ma2 21:20 All other systems are negative. Exam: 21:20 Constitutional: This is a well developed, intoxicated with alcohol otherwise well ma2 nourished patient who is awake, alert, and in no acute distress. Head/Face: Normocephalic, atraumatic. Eyes: Pupils equal round and reactive to light, extra-ocular motions intact. Lids and lashes normal. Conjunctiva and sclera are non-icteric and not injected. Cornea within normal limits. Periorbital areas with no swelling, redness, or edema. Chest/axilla: Normal chest wall appearance and motion. Nontender with no deformity. No lesions are appreciated. Cardiovascular: Regular rate and rhythm with a normal S1 and S2. No gallops, murmurs, or rubs. Normal PMI, no JVD. No pulse deficits. Respiratory: Lungs have equal breath sounds bilaterally, clear to auscultation and percussion. No rales, rhonchi or wheezes noted. No increased work of breathing, no retractions or nasal flaring. Abdomen/GI: Soft, non-tender, with normal bowel sounds. No distension or tympany. No guarding or rebound. No evidence of tenderness throughout. Skin: Warm, dry with normal turgor. Normal color with no rashes, no lesions, and no evidence of cellulitis. MS/ Extremity: Pulses equal, no cyanosis. Neurovascular intact. Full, normal range of motion. Neuro: Awake and alert, GCS 15, oriented to person, place, time, and situation. Cranial nerves II-XII grossly intact. Motor strength 5/5 in all extremities. Sensory grossly intact. Cerebellar exam normal. Normal gait. Vital Signs: 21:00 BP 141 / 89; Pulse 88; Resp 16; Temp 99.0(O); Pulse Ox 97% on R/A; Weight 72.57 kg (R); [facility] Height 5 ft. 11 in. (180.34 cm) (R); Pain 0/10; 22:00 BP 154 / 85; Pulse 76; Resp 16; Pulse Ox 98% on R/A; [facility] 23:00 BP 153 / 79; Pulse 83; Resp 19; Pulse Ox 97% on R/A; [facility] 03/24 00:00 BP 168 / 75; Pulse 85; Resp 16; Pulse Ox 97% on R/A; [facility] 03/23 21:00 Body Mass Index 22.32 (72.57 kg, 180.34 cm) [facility] MDM: 03/23 21:13 Patient medically screened. [facility] 21:20 Differential Diagnosis intoxicated with alcohol possible head trauma, . Data reviewed: [facility] vital signs, nurses notes. Counseling: I had a detailed discussion with the patient and/or guardian regarding: the historical points, exam findings, and any diagnostic results supporting the discharge/admit diagnosis, the presence of at least one elevated blood pressure reading (>120/80) during this emergency department visit, the need for outpatient follow up. Response to treatment: the patient's symptoms have markedly improved after treatment. 03/23 21:14 Order name: Basic Metabolic Panel; Complete Time: 23:07 [facility] 03/23 21:14 Order name: Magnesium; Complete Time: 23:07 [facility] 03/23 21:14 Order name: NT PRO-BNP; Complete Time: 23:07 [facility] 03/23 21:14 Order name: PT-INR; Complete Time: 23: [facility] 03/23 21:14 Order name: Troponin (emerg Dept Use Only); Complete Time: 23:07 [facility] 03/23 21:19 Order name: Alcohol Level; Complete Time: 23:37 [facility] 03/23 21:14 Order name: XRAY Chest (1 view) [facility] 03/23 21:14 Order name: EKG; Complete Time: 21:15 [facility] 03/23 21:14 Order name: Cardiac monitoring; Complete Time: 22:28 [facility] 03/23 21:14 Order name: EKG - Nurse/Tech; Complete Time: :28 [facility] 03/23 21:14 Order name: O2 Per Protocol; Complete Time: 21:15 [facility] 03/23 21:14 Order name: O2 Sat Monitoring; Complete Time: 21:15 [facility] 03/23 21:19 Order name: CT Head C Spine ma2 Administered Medications: No medications were administered Disposition: 03/24/21 00:25 Discharged to Home. Impression: Alcohol abuse with intoxication. - Condition is Stable. - Discharge Instructions: Alcohol Intoxication, [id number]. - Medication Reconciliation Form, Thank You Letter, Antibiotic Education, Prescription Opioid Use form. - Follow up: Private Physician; When: Tomorrow; Reason: Continuance of care. Signatures: Dispatcher [employer] EDRick Awad RN RN jb4 Dean Gray MD MD ma2 Corrections: (The following items were deleted from the chart) 03/24 00:44 00:25 03/24/2021 00:25 Discharged to Home. Impression: Alcohol abuse with intoxication. jb4 Condition is Stable. Discharge Instructions: Alcohol Intoxication, [id number]. Forms are Medication Reconciliation Form, Thank You Letter, Antibiotic Education, Prescription Opioid Use. Follow up: Private Physician; When: Tomorrow; Reason: Continuance of care. ma2
[2021-03-24 02:33] VITALS: O2SAT 97
[2021-03-24 02:35] VITALS: BP 168/75
--- NOTE | 2021-03-24 08:54 | RAD REPORT ---
EXAM DESCRIPTION: RAD - Chest Single View - 03/23/2021 9:52 pm CLINICAL HISTORY: fall Chest pain. COMPARISON: Chest Single View dated 01/11/2021; Chest Single View dated 03/18/2020; CHEST SINGLE VIEW dated 11/02/2015; CHEST PA AND LAT 2 VIEW dated 09/23/2013 FINDINGS: Portable technique limits examination quality. The lungs are grossly clear. The heart is normal in size. No displaced fractures. IMPRESSION: No acute intrathoracic process suspected.
--- NOTE | 2021-03-24 08:58 | EKG ---
Test Date: 2021-03-23 Test Time: 22:04:55 Director Of Learning: YOBANI MEASUREMENT RESULTS: Intervals: Rate: 77 MD: 150 QRSD: 78 QT: 366 QTc: 414 Malott: P: 62 MD: 150 QRS: 2 T: 5 INTERPRETIVE STATEMENTS: Normal sinus rhythm Minimal voltage criteria for LVH, may be normal variant Borderline ECG Compared to ECG 01/11/2021 10:52:49 Left ventricular hypertrophy now present ST (T wave) deviation no longer present Early repolarization no longer present Electronically Signed On 03-24-21 08:58:38 CDT by Kin Bennett
--- NOTE | 2021-03-24 10:22 | RAD REPORT ---
EXAM DESCRIPTION: Head C Spine Mpr Wo Con 03/23/2021 10:13 PM CDT CLINICAL HISTORY: 66 years, Male, PAIN COMPARISON: 01/11/2021. FINDINGS: Multiple transaxial tomograms of the brain were obtained from the base of the skull to the vertex without contrast. 2-D multiplanar reformats and the coronal and sagittal plane were performed and reviewed. This exam was performed according to our departmental dose-optimization protocol, which includes auto mated exposure control, adjustment of the mA and/or kV according to patient size and/or use of iterat marleni reconstruction technique. Brain parenchyma demonstrate prominence of the sulci and gyri are corresponding to cerebral and cereb ellar atrophy. There is moderate to severe periventricular white matter changes of microvascular isch emia. Again noted is the presence of tiny areas of hypodensity within the right basal ganglia and hea d of the caudate corresponding to old lacunar infarct. There is no midline shift and/or mass effect. There is no evidence for acute intracranial hemorrhage. Lateral ventricles and cisterns displace no rmal appearance. No intra or extra axial fluid collections were seen. The calvarium is intact with no evidence for fracture. The visualized portions of the paranasal sinuses and orbits demonstrate to be clear. Multiple axial CT images through the cervical spine were obtained at 2 mm slice thickness at 2 mm int erval reconstruction. In addition 2-D multiplanar reformats and the sagittal coronal plane were perfo rmed and reviewed. This exam was performed according to our departmental dose-optimization protocol, which includes auto mated exposure control, adjustment of the mA and/or kV according to patient size and/or use of iterat marleni reconstruction technique. FINDINGS: The alignment of the vertebral body heights are normal. There is no evidence of fracture or subluxation. There is degenerative disc disease with decreased intervertebral disc height, anteri or spondylosis and posterior osteophyte complex at C3/C4 C5/C6 C6/C7. There is no definitive signific ant spinal canal stenosis. There are significant uncovertebral degenerative changes C2-C7. Noted is t he presence of perhaps old healed nondisplaced fracture along the posterior aspect tip uncovertebral joint right side of C4 with C5, best demonstrated on CT series #302 image 60/108. There is no prevert ebral soft tissue swelling. The lung apices demonstrate to be within normal limits. Sagittal coronal reformatted images demonstrate no subluxation or bony abnormalities. IMPRESSION: No evidence of acute intracranial hemorrhage or mass effect. Brain atrophy with moderate to severe periventricular white matter changes of microvascular ischemia. No evidence of acute fracture or subluxation involving the cervical spine. Noted is the presence of perhaps old healed nondisplaced fracture along the posterior aspect tip of u ncovertebral joint right side of C4 with C5, best demonstrated on CT series #302 image 60/108. Electronically signed by: Edward Wilburn MD 03/23/2021 10:22 PM CDT Due to temporary technical issues with the PACS/Fluency reporting system, reports are being signed by the in house radiologist without review as a courtesy to ensure prompt reporting. The interpreting r adiologist is fully responsible for the content of the report.
== END 2021-03-24 00:44 | disposition home or self-care (01) ==
LOC: ER 21:01
DX: F10.129 Alcohol abuse with intoxication, unspecified (principal); I10 Essential (primary) hypertension; J44.9 Chronic obstructive pulmonary disease, unspecified; Z86.73 Personal history of transient ischemic attack (TIA), and cerebral infarction without residual deficits; Z79.82 Long term (current) use of aspirin
CPT/HCPCS: 36415; 70450; 71045; 72125; 80048; 80320; 83735; 83880; 84484; 85610; 93005; 99284

== ENCOUNTER 2021-09-04 13:38 | Inpatient (IN) | payer OTHER ==
[2021-09-04 14:04] LABS: Basophils % 0.2 % (0-1.3); MPV 10.7 fL (7.6-11.3); RBC Red Blood Cell Count 4.68 M/uL (4.33-5.43)
[2021-09-04 14:18] LABS: ALT/SGPT 20 U/L (12-78); AST/SGOT 14 U/L (15-37); Albumin 3.5 g/dL (3.4-5.0); BUN Blood Urea Nitrogen 20 mg/dL (7-18); Bicarbonate 17 mmol/L (21-32); Bilirubin Direct 0.2 mg/dL (0-0.2); Bilirubin Total 0.5 mg/dL (0.2-1.0); Glucose Level 87 mg/dL (74-106); Magnesium 2.4 mg/dL (1.8-2.4); Protein, Total 7.4 g/dL (6.4-8.2); Sodium Level 142 mmol/L (136-145)
[2021-09-04 14:21] LABS: Alkaline Phosphatase 106 U/L (45-117); NT PRO-BNP 398 pg/mL (<125); Troponin (Emerg Dept Use Only) < 0.02 ng/mL (0.0-0.045)
--- NOTE | 2021-09-04 14:24 | RAD REPORT ---
EXAM DESCRIPTION: Bertha Single View09/04/2021 2:02 pm CLINICAL HISTORY: Chest pain COMPARISON: February 2021 FINDINGS: The lungs appear clear of acute infiltrate. The heart is normal size IMPRESSION: No acute abnormalities displayed
--- NOTE | 2021-09-04 14:24 | RAD REPORT ---
EXAM DESCRIPTION: CT - Head C Spine Mpr Wo Con - 09/04/2021 2:07 pm CLINICAL HISTORY: Head and neck injury status post fall. Head and neck pain COMPARISON: February 2021 TECHNIQUE: Computed axial tomography of the head and cervical spine was obtained. Sagittal and coronal reconstruction was performed. All CT scans are performed using dose optimization technique as appropriate and may include automated exposure control or mA/KV adjustment according to patient size. FINDINGS: An intracranial bleed is not seen. Moderate low-density areas within periventricular, deep and subcortical white matter without significant change Small old lacunar infarction right basal ganglia right thalamus. The ventricles are normal in caliber . An extra-axial fluid collection is not noted.Fluid within the visualized sinuses and mastoids is no t seen A cervical fracture is not visualized. No dislocation is noted. Spondylosis involves the cervical spi ne IMPRESSION: Moderate low-density areas within periventricular, deep and subcortical white matter may be secondary to ischemic changes secondary to small vessel disease or a demyelinating process. A cervical fracture is not visualized. If the patient continues to have symptoms to suggest intracranial /spinal cord/canal pathology then M RI would be recommended
[2021-09-04 14:28] LABS: Protime INR 1.09
--- NOTE | 2021-09-04 14:41 | EDPHYS ---
Physician Documentation [facility] Name: Channing Marmolejo Age: 66 yrs Sex: Male : 1955 Arrival Date: 09/04/2021 Time: 13:40 Bed 5 Private MD: ED Physician Kyra Real HPI: 09/04 13:54 This 66 yrs old Black Male presents to ER via Unassigned with complaints of Fall Injury.sp3 13:54 66-year-old male with a history of hypertension, hyperlipidemia, COPD, CVA, coronary sp3 artery disease who presents via EMS secondary to being found outside of his apartment complex laying flat on the ground with a hematoma on the back of his head. Patient states that he last remembers being in charge and then getting home. Patient states that he was "dizzy" in [place]oroast[place] and the symptoms have persisted throughout the day. He does not remember any trauma, falling, or how he got outside. In route to the ER, EMS states that he was urine incontinent. Patient states he has no seizure history or any other episodes of similar history in the past.. Historical: - Allergies: 14:11 No Known Allergies; vg1 - Home Meds: 14:11 carvedilol Oral [Active]; amlodipine oral [Active]; donepezil oral [Active]; vg1 atorvastatin Oral [Active]; memantine oral [Active]; quetiapine Oral [Active]; tamsulosin Oral [Active]; Aspirin Oral [Active]; finasteride oral [Active]; - PMHx: 14:11 Carotid artery blockage; COPD; CVA; Hypertension; vg1 - Immunization history:: Client reports receiving the 2nd dose of the Covid vaccine. - Social history:: Smoking status: Patient reports the use of cigarette tobacco products, smokes one pack cigarettes per day. - Immunization history: Last tetanus immunization: unknown. ROS: 13:55 Constitutional: Negative for fever, chills, and weight loss, Eyes: Negative for injury, sp3 pain, redness, and discharge, ENT: Negative for injury, pain, and discharge, Cardiovascular: Negative for chest pain, palpitations, and edema, Abdomen/GI: Negative for abdominal pain, nausea, vomiting, diarrhea, and constipation, MS/Extremity: Negative for injury and deformity, Allergy/Immunology: Negative for hives, rash, and allergies, Endocrine: Negative for neck swelling, polydipsia, polyuria, polyphagia, and marked weight changes. 13:55 Neuro: Positive for Urine incontinence. Exam: 13:56 Constitutional: This is a well developed, well nourished patient who is awake, alert, sp3 and in no acute distress. Eyes: Pupils equal round and reactive to light, extra-ocular motions intact. Lids and lashes normal. Conjunctiva and sclera are non-icteric and not injected. Cornea within normal limits. Periorbital areas with no swelling, redness, or edema. ENT: Nares patent. No nasal discharge, no septal abnormalities noted. External auditory canals are clear. Oropharynx with no redness, swelling, or masses, exudates, or evidence of obstruction, uvula midline. Mucous membranes moist. Neck: Trachea midline, no thyromegaly or masses palpated, and no cervical lymphadenopathy. Supple, full range of motion without nuchal rigidity, or vertebral point tenderness. No Meningismus. Chest/axilla: Normal chest wall appearance and motion. Nontender with no deformity. No lesions are appreciated. Cardiovascular: Regular rate and rhythm with a normal S1 and S2. No gallops, murmurs, or rubs. Normal PMI, no JVD. No pulse deficits. Respiratory: Lungs have equal breath sounds bilaterally, clear to auscultation and percussion. No rales, rhonchi or wheezes noted. No increased work of breathing, no retractions or nasal flaring. Abdomen/GI: Soft, non-tender, with normal bowel sounds. No distension or tympany. No guarding or rebound. No evidence of tenderness throughout. Skin: Warm, dry with normal turgor. Normal color with no rashes, no lesions, and no evidence of cellulitis. MS/ Extremity: Pulses equal, no cyanosis. Neurovascular intact. Full, normal range of motion. Neuro: Awake and alert, GCS 15, oriented to person, place, time, and situation. Cranial nerves II-XII grossly intact. Motor strength 5/5 in all extremities. Sensory grossly intact. Cerebellar exam normal. Normal gait. Psych: Awake, alert, with orientation to person, place and time. Behavior, mood, and affect are within normal limits. 13:56 Head/face: Patient has 3 cm x 3 cm hematoma with no bleeding on the posterior aspect of his head over the occiput.. 13:56 Neuro: Neurological exam is normal and has no acute deficits and stroke scale is negative.. 14:44 ECG was reviewed by the Attending Physician. EKG demonstrates normal sinus rhythm at 60 sp3 bpm with normal intervals, normal QRS, normal axis, normal ST/T segments without evidence of ischemia. Normal EKG. Vital Signs: 13:33 BP 138 / 80; Pulse 60; Resp 14; Temp 98.2(O); Pulse Ox 100% ; Weight 68.04 kg; Height 5 vg1 ft. 11 in. (180.34 cm); Pain 0/10; 14:30 BP 144 / 73; Pulse 69; Resp 19; Pulse Ox 100% ; vg1 15:00 BP 149 / 68; Pulse 60; Resp 16; Pulse Ox 100% ; vg1 16:00 BP 149 / 69; Pulse 63; Resp 20; Pulse Ox 100% ; vg1 17:00 BP 145 / 71; Pulse 62; Resp 16; Pulse Ox 100% ; vg1 17:52 Temp 98.4(O); vg1 13:33 Body Mass Index 20.92 (68.04 kg, 180.34 cm) vg1 Wilmot Coma Score: 13:35 Eye Response: spontaneous(4). Verbal Response: oriented(5). Motor Response: obeys vg1 commands(6). Total: 15. Trauma Score (Adult): 13:35 Eye Response: spontaneous(1); Verbal Response: oriented(1); Motor Response: obeys vg1 commands(2); Systolic BP: > 89 mm Hg(4); Respiratory Rate: 10 to 29 per min(4); Wilmot Score: 15; Trauma Score: 12 MDM: 13:42 Patient medically screened. sp3 13:56 Data reviewed: vital signs, nurses notes. sp3 13:57 ED course: 66-year-old male who was found with a head injury. Likely underlying medical sp3 pathology going on that contributed to his fall and injury. Patient states that he was dizzy and he also had an episode of incontinence. Possibility of seizure activity is in the differential along with metabolic derangement, infection, sepsis, CVA, acute coronary syndrome, among others. We will cast a wide differential in wide work-up including CT head, cardiac work-up, and general observation.. 14:38 ED course: She demonstrates moderate area of subcortical white matter with a subacute sp3 process. No intracranial hemorrhage or C-spine injury. Labs reviewed and patient has elevated creatinine. Will admit to hospitalist for neuro consult, serial neuro exams, and renal failure.. 09/04 13:43 Order name: Basic Metabolic Panel [facility] 09/04 13:43 Order name: CBC with Diff [facility] 09/04 13:43 Order name: LFT's; Complete Time: 14:34 3 09/04 13:43 Order name: Magnesium; Complete Time: 14:34 3 09/04 13:43 Order name: NT PRO-BNP; Complete Time: 14:34 3 09/04 13:43 Order name: PT-INR [facility] 09/04 13:43 Order name: Troponin (emerg Dept Use Only); Complete Time: 14:34 3 09/04 13:43 Order name: XRAY Chest (1 view); Complete Time: 14:34 3 09/04 13:43 Order name: UA [facility] 09/04 13:44 Order name: Basic Metabolic Panel; Complete Time: 14:34 [facility] 09/04 13:44 Order name: CBC with Automated Diff; Complete Time: 14:34 [facility] 09/04 16:18 Order name: Urine Dipstick-Ancillary [facility] 09/04 16:26 Order name: COVID-19 SARS RT PCR (Document "Date of Onset" if Symptomatic) 09/04 17:35 Order name: SARS-COV-2 RT PCR [facility] 09/04 13:43 Order name: EKG; Complete Time: 13:44 [facility] 09/04 13:43 Order name: Cardiac monitoring; Complete Time: 14:47 3 09/04 13:43 Order name: EKG - Nurse/Tech; Complete Time: 14:47 3 09/04 13:43 Order name: IV Saline Lock; Complete Time: 14:30 3 09/04 13:43 Order name: Labs collected and sent; Complete Time: 14:30 3 09/04 13:43 Order name: O2 Per Protocol; Complete Time: 14:30 3 09/04 13:43 Order name: O2 Sat Monitoring; Complete Time: 14:30 3 09/04 13:43 Order name: CT Head C Spine; Complete Time: 14:34 3 09/04 13:43 Order name: Urine Dipstick-Ancillary (obtain specimen); Complete Time: 16:17 sp3 09/04 16:13 Order name: CONS Physician Consult [facility] 09/04 16:13 Order name: Regular [facility] 09/04 16:13 Order name: Echo with Doppler [facility] 09/04 16:13 Order name: EEG Request [facility] 09/04 16:13 Order name: Brain Wo Cont [facility] 09/04 16:14 Order name: Carotid Artery Bilateral [facility] Administered Medications: 17:38 Drug: Tylenol 1000 mg Route: PO; jd3 18:31 Follow up: Response: No adverse reaction; No change in condition vg1 Disposition Summary: 09/04/21 14:41 Hospitalization Ordered Hospitalization Status: Inpatient Admission sp3 Provider: Dean Calvillo3 Location: Telemetry/MedSurg (Inpatient) sp3 Condition: Stable sp3 Problem: an acute exacerbation sp3 Symptoms: have worsened sp3 Bed/Room Type: Standard sp3 Room Assignment: 209(09/04/21 17:41) dw Diagnosis - Altered mental status, unspecified sp3 - Acute kidney failure, unspecified sp3 Forms: - Medication Reconciliation Form sp3 - SBAR form sp3 Signatures: Dispatcher [employer] EDMS Roxanna Pozo RN RN Ozzie Segura RN RN jTerese Yip RN RN vg1 Kyra Real MD MD sp3 Corrections: (The following items were deleted from the chart) 17:41 14:41 sp3 dw
--- NOTE | 2021-09-04 14:41 | ER ---
Nurse's Notes [facility] Name: Channing Marmolejo Age: 66 yrs Sex: Male : 1955 Arrival Date: 09/04/2021 Time: 13:40 Bed 5 Private MD: Diagnosis: Altered mental status, unspecified;Acute kidney failure, unspecified Presentation: 09/04 13:33 Chief complaint: EMS states: pt was found outside of apartment on the ground. +LOC. By 1 standards stated pt was unresponsive. Upon arrival pt was Aox4. Pt appears to have a bump on the back of head and has lost control of bowel. Pt states was in [facility] about an hour ago and became dizzy. Drove home and remembers walking towards apartment then sat down but doesn't remember anything after that. 13:33 Coronavirus screen: Vaccine status: Patient reports receiving the 2nd dose of the covid vg1 vaccine. Ebola Screen: Patient negative for fever greater than or equal to 101.5 degrees Fahrenheit, and additional compatible Ebola Virus Disease symptoms. Initial Sepsis Screen: Does the patient meet any 2 criteria? No. Patient's initial sepsis screen is negative. Does the patient have a suspected source of infection? No. Patient's initial sepsis screen is negative. Risk Assessment: Do you want to hurt yourself or someone else? Patient reports no desire to harm self or others. Onset of symptoms was September 04, 2021. 13:33 Method Of Arrival: EMS: [facility] 13:33 Acuity: KANWAL 3 vg1 14:31 Care prior to arrival: None. Mechanism of Injury: head injury. Trauma event details: vg1 Injury occurred in the [facility]. Triage Assessment: 14:11 General: Appears in no apparent distress. uncomfortable, Behavior is calm, cooperative. vg1 Pain: Denies pain. EENT: No signs and/or symptoms were reported regarding the EENT system. Neuro: Level of Consciousness is awake, alert, obeys commands, Oriented to person, place, time, situation, Family Day Care Provider are equal bilaterally Moves all extremities. Speech is normal, Facial symmetry appears normal, Reports dizziness. Cardiovascular: Denies chest pain, Patient's skin is warm and dry. Respiratory: Airway is patent Respiratory effort is even, unlabored, Respiratory pattern is regular. GI: Abdomen is round non-distended, Reports nausea, Pt lost control of bowel movement. : No signs and/or symptoms were reported regarding the genitourinary system. Derm: Skin is intact, is healthy with good turgor. Musculoskeletal: Circulation, motion, and sensation intact. Trauma Activation: Physician: ED Physician; Name: ; Notified At: ; Arrived At: Physician: General Surgeon; Name: ; Notified At: ; Arrived At: Physician: Radiology; Name: ; Notified At: ; Arrived At: Physician: Respiratory; Name: ; Notified At: ; Arrived At: Physician: Lab; Name: ; Notified At: ; Arrived At: 13:45 No trauma activation called vg1 Historical: - Allergies: 14:11 No Known Allergies; vg1 - Home Meds: 14:11 carvedilol Oral [Active]; amlodipine oral [Active]; donepezil oral [Active]; vg1 atorvastatin Oral [Active]; memantine oral [Active]; quetiapine Oral [Active]; tamsulosin Oral [Active]; Aspirin Oral [Active]; finasteride oral [Active]; - PMHx: 14:11 Carotid artery blockage; COPD; CVA; Hypertension; vg1 - Immunization history:: Client reports receiving the 2nd dose of the Covid vaccine. - Social history:: Smoking status: Patient reports the use of cigarette tobacco products, smokes one pack cigarettes per day. - Immunization history: Last tetanus immunization: unknown. Screenin:35 Abuse screen: Denies threats or abuse. Denies injuries from another. Nutritional vg1 screening: No deficits noted. Tuberculosis screening: No symptoms or risk factors identified. 14:31 Fall Risk Fall in past 12 months (25 points). No secondary diagnosis (0 pts). IV access vg1 (20 points). Ambulatory Aid- None/Bed Rest/Nurse Assist (0 pts). Gait- Weak (10 pts.). Mental Status- Oriented to own ability (0 pts). Total Sinclair Fall Scale indicates High Risk Score (45 or more points). Fall prevention measures have been instituted. Side Rails Up X 2 Placed Close to Nursing Station Family Present and informed to notify staff if the need to leave the bedside. Primary Survey: 13:35 NO uncontrolled hemorrhage observed. Breathing/Chest: Respiratory pattern: regular, vg1 Respiratory effort: spontaneous, Breath sounds: clear, bilaterally. Chest inspection: symmetrical rise and fall of the chest. Circulation: Skin color: pink. Disability Alert. Exposure/Environment: All clothing and personal items were removed. There is no evidence of uncontrolled external bleeding. Obvious injury(ies) are noted at this time: Pt appears to have a bump on the back of the head A warming method has been applied: A warm blanket has been provided to the patient. 14:30 Reassessment Airway Airway Patent Oxygen No O2 Breathing/Chest Circulation Color [place] vg1 Disability Alert. Secondary Survey: 13:35 HEENT: No deficits noted. Gastrointestinal: Abdomen is soft, lost control of bowel vg1 movement. : No signs and/or symptoms were reported regarding the genitourinary system. Musculoskeletal: Circulation, motion, and sensation intact. Assessment: 13:33 Reassessment: See triage. vg1 15:20 Reassessment: Patient appears in no apparent distress at this time. Patient and/or vg1 family updated on plan of care and expected duration. Pain level reassessed. Patient is alert, oriented x 3, equal unlabored respirations, skin warm/dry/pink. Patient denies pain at this time. 17:27 Reassessment: Patient appears in no apparent distress at this time. Patient and/or vg1 family updated on plan of care and expected duration. Pain level reassessed. Patient is alert, oriented x 3, equal unlabored respirations, skin warm/dry/pink. Pt states h/a. Rated pain 8/10. Provider notified. 17:50 Reassessment: attempted to call report. vg1 Vital Signs: 13:33 BP 138 / 80; Pulse 60; Resp 14; Temp 98.2(O); Pulse Ox 100% ; Weight 68.04 kg; Height 5 vg1 ft. 11 in. (180.34 cm); Pain 0/10; 14:30 BP 144 / 73; Pulse 69; Resp 19; Pulse Ox 100% ; vg1 15:00 BP 149 / 68; Pulse 60; Resp 16; Pulse Ox 100% ; vg1 16:00 BP 149 / 69; Pulse 63; Resp 20; Pulse Ox 100% ; vg1 17:00 BP 145 / 71; Pulse 62; Resp 16; Pulse Ox 100% ; vg1 17:52 Temp 98.4(O); vg1 13:33 Body Mass Index 20.92 (68.04 kg, 180.34 cm) vg1 Karla Coma Score: 13:35 Eye Response: spontaneous(4). Verbal Response: oriented(5). Motor Response: obeys vg1 commands(6). Total: 15. Trauma Score (Adult): 13:35 Eye Response: spontaneous(1); Verbal Response: oriented(1); Motor Response: obeys vg1 commands(2); Systolic BP: > 89 mm Hg(4); Respiratory Rate: 10 to 29 per min(4); Karla Score: 15; Trauma Score: 12 ED Course: 13:35 Patient has correct armband on for positive identification. Placed in gown. Bed in low vg1 position. Call light in reach. Side rails up X2. Adult w/ patient. 13:35 Patient maintains SpO2 saturation greater than 95% on room air. vg1 13:40 Patient arrived in ED. ds1 13:40 Maintain EMS IV. Dressing intact. Good blood return noted. Site clean \T\ dry. Gauge \T\ vg 1 site: 20 L FA. 13:42 Kyra Real MD is Attending Physician. sp3 13:55 Terese Javed, USHA is Primary Nurse. vg1 14:02 XRAY Chest (1 view) In Process Unspecified. EDMS 14:07 CT Head C Spine In Process Unspecified. EDMS 14:11 Triage completed. vg1 14:30 Arm band placed on. vg1 14:30 No provider procedures requiring assistance completed. vg1 14:30 Thermoregulation: warm blanket given to patient. vg1 14:41 Dean Calvillo MD is Hospitalizing Provider. sp3 14:47 EKG done, by ED staff, reviewed by Kyra Real MD. dh3 18:09 Patient admitted, IV remains in place. vg1 Administered Medications: 17:38 Drug: Tylenol 1000 mg Route: PO; jd3 18:31 Follow up: Response: No adverse reaction; No change in condition vg1 Output: 18:30 Urine: 300ml (Voided); Total: 300ml. vg1 Outcome: 14:41 Decision to Hospitalize by Provider. sp3 18:07 Admitted to [facility] family with patient, room 209, with chart, Report called to Love vg1 RN 18:07 Condition: stable 18:07 Instructed on the need for admit. 18:30 Patient's length of stay in the Emergency Department was greater than 2 hours. Pending vg1 admissionPatient's length of stay extended due to 18:31 Patient left the ED. vg1 Signatures: Dispatcher [employer] EDMS Rebecca Gonzalez ds1 Eloisa Allen 3 Ozzie Naylor RN RN Terese Carlin RN RN vg1 Kyra Real MD MD sp3 Corrections: (The following items were deleted from the chart) 14:29 14:11 GI: Abdomen is round non-distended, Pt lost control of bowel movement. vg1 vg1 14:35 13:33 Chief complaint: EMS states: pt was found outside of apartment on the ground. vg1 +LOC. Upon arrival pt was Aox4. Pt appears to have a bump on the back of head and has lost control of bowel. Pt states was in [facility] about an hour ago and became dizzy. Drove home and remembers sitting down but nothing after that. vg1
[2021-09-04] MEDS ORDERED: ACETAMINOPHEN 500 MG TAB PO PRN (16:02)
[2021-09-04] MEDS ORDERED: ASPIRIN EC 81 MG TAB PO ONE (16:02)
[2021-09-04] MEDS ORDERED: ONDANSETRON 4 MG/2 ML VIAL IV PRN (16:02)
[2021-09-04] MEDS ORDERED: MORPHINE 2 MG/ML SYR IV PRN (16:02)
[2021-09-04 16:18] LABS: Urine Blood Negative (Negative); Urine Glucose Negative (Negative); Urine Protein 1+ (Negative); Urine Specific Gravity >=1.030 (1.005-1.030); Urine pH 5.5 (5.0-7.0)
[2021-09-04] MEDS ORDERED: ACETAMINOPHEN 500 MG TAB ONE ×2 (17:34→17:35)
[2021-09-04] MEDS ORDERED: ENOXAPARIN 30 MG/0.3 ML SQ SCH ×2 (18:00→20:00)
[2021-09-04 18:32] LABS: Potassium 4.4 mmol/L (3.5-5.1)
[2021-09-04] MEDS ORDERED: D5W 1,000 ML IV ONE (18:44)
[2021-09-04] MEDS: D5W 1,000 ML with NA BICARB 8.4% 50 MEQ IV SCH ×2 (18:53)
[2021-09-04] MEDS ORDERED: ATORVASTATIN 80 MG TAB PO SCH (21:00)
[2021-09-04] MEDS: levETIRAcetam 500 MG in NA CHLORIDE 0.9% 100 ML IV SCH (21:21)
[2021-09-04 23:46] VITALS: BMI 20.9
--- NOTE | 2021-09-04 23:59 | P.HP ---
Certification for Inpatient Patient admitted to: Observation With expected LOS: <2 Midnights Patient will require the following post-hospital care: None Practitioner: I am a practitioner with admitting privileges, knowledge of patient current condition, hospital course, and medical plan of care. Services: Services provided to patient in accordance with Admission requirements found in Title 42 Section 412.3 of the Code of Federal Regulations Patient History Date of Service: 09/04/21 Reason for admission: Status post fall; scalp hematoma History of Present Illness: Patient is a 66-year-old gentleman who came to the hospital after falling. Patient going to [facility] in the morning and had been doing well. However, patient went to visit family and when he was at the door he remembers that he kind of blacked out and does not remember much else. He fell and he was found with a scalp hematoma. Patient was unresponsive. Patient also had urinary i ncontinence. Patient has a history of CVA. Patient came to the hospital for further evaluation. Patient is doing well neurologically. Decision was made to admit for observation. MRI of the brain. Monitor on telemetry. Allergies No Known Allergies Allergy (Verified 12/23/20 16:33) Home Medications: Tamsulosin [Flomax*] 2 cap PO DAILY 03/19/20 Aspirin 81 mg PO BEDTIME 12/23/20 Atorvastatin Calcium [Lipitor] 1 tab PO DAILY 12/23/20 carvediloL [Coreg*] 12.5 mg PO BID 12/23/20 Amlodipine Besylate [Norvasc] 2.5 mg PO DAILY 09/05/21 Donepezil HCl 10 mg PO DAILY 09/05/21 Finasteride 1 tab PO DAILY 09/05/21 Memantine HCl 10 mg PO BID 09/05/21 Quetiapine [Seroquel*] 50 mg PO BEDTIME 09/05/21 - Past Medical/Surgical History Diabetic: No -: HTN -: Hyperlipidemia -: Chronic Kidney disease -: COPD -: History of Cocaine abuse -: Carotid Occlusive Disease -: History of CVA/TIA-no residual -: Chronic Hepatitis C -: Chronic Back pain -: Cervical Spondylosis -: UGI bleed -: Lt shoulder sx -: GI sx Psychosocial/ Personal History: . 8-Children - Family History Mother Medical History: Hypertension Father Medical History: Hypertension Brother Medical History: Hypertension Sister Medical History: Hypertension - Social History Smoking Status: Current every day smoker Alcohol use: Yes CD- Drugs: Yes Caffeine use: No Place of Residence: Home Review of Systems 10-point ROS is otherwise unremarkable Physical Examination - Vital Signs Temperature: 98.2 F Blood Pressure: 154/68 Pulse: 66 Respirations: 19 Pulse Ox (%): 100 - Physical Exam General: Alert, In no apparent distress, Oriented x3 HEENT: Atraumatic, PERRLA, Mucous membr. moist/pink, EOMI, Sclerae nonicteric Neck: Supple, 2+ carotid pulse no bruit, No LAD, Without JVD or thyroid abnormality Respiratory: Clear to auscultation bilaterally, Normal air movement Cardiovascular: Regular rate/rhythm, Normal S1 S2, No murmurs Gastrointestinal: Normal bowel sounds, Soft and benign, Non-distended, No tenderness Musculoskeletal: No clubbing, No swelling, No tenderness Integumentary: No rashes Neurological: Normal gait, Normal strength at 5/5 x4 extr, Normal tone, Sensation intact, Cranial nerves 3-12 intact, Normal affect, Abnormal gait, Abnormal speech Lymphatics: No axilla or inguinal lymphadenopathy - Studies Laboratory Data (last 24 hrs) 09/04/21 13:53: PT 12.6 H, INR 1.09 09/04/21 13:53: WBC 6.60, Hgb 13.5 L, Hct 42.0, Plt Count 201 09/04/21 13:53: Sodium 142, Potassium 4.0, BUN 20 H, Creatinine 2.29 H, Glucose 87, Magnesium 2.4, Total Bilirubin 0.5, AST 14 L, ALT 20, Alkaline Phosphatase 106 Assessment & Plan - Problems (Diagnosis) (1) Acute CVA (cerebrovascular accident) Current Visit: Yes Status: Acute (2) Cerebral infarction Current Visit: No Status: Active (3) Acute renal insufficiency Current Visit: No Status: Acute (4) Syncope and collapse Current Visit: No Status: Acute - Plan Plan: 1. Continue IV fluids 2. Monitor renal function 3. Neurology consultation 4. MRI of the brain 5. Anti-platelet and statin therapy 6. Lipid profile 7. Physical therapy evaluation 8. Bedside swallow study was normal 9. DVT prophylaxis Discharge Plan: Home Plan to discharge in: 24 Hours - Advance Directives Does patient have a Living Will: No Does patient have a Durable POA for Healthcare: No - Code Status/Comfort Care Code Status Assessed: Yes Code Status: Full Code Critical Care: No Time Spent Managing PTS Care (In Minutes): 45
[2021-09-05] MEDS: D5W 1,000 ML with NA BICARB 8.4% 50 MEQ IV SCH ×2 (02:32)
[2021-09-05 05:15] LABS: Absolute Lymphocytes (CBC) 2.8 K/uL (0.7-4.9); Basophils % 1.3 % (0-1.3); Hematocrit 37.4 % (39.6-49.0); Lymphocytes % 34.4 % (15.3-44.8); MPV 10.8 fL (7.6-11.3); RBC Red Blood Cell Count 4.21 M/uL (4.33-5.43)
[2021-09-05 05:26] LABS: Albumin 3.1 g/dL (3.4-5.0); Bilirubin Total 0.4 mg/dL (0.2-1.0); Potassium 3.9 mmol/L (3.5-5.1); Protein, Total 6.3 g/dL (6.4-8.2)
[2021-09-05] MEDS ORDERED: D5W 1,000 ML with NA BICARB 8.4% 50 MEQ IV SCH ×4 (06:32→14:00)
--- NOTE | 2021-09-05 07:30 | RAD REPORT ---
EXAM DESCRIPTION: USCarotid Artery Fmldygsdt23/8/2021 6:32 am CLINICAL HISTORY: syncope COMPARISON: None FINDINGS: The velocity of the right internal carotid artery equals 73 cm/sec. The right ICA/CCA rati o 1.1 The velocity of the left internal carotid artery equals 81 cm/sec. The left ICA/CCA ratio 0.9. Mild plaque is present within the carotid arteries. Tortuous left common carotid artery The vertebral arteries demonstrate antegrade flow IMPRESSION: Mild plaque within the carotid arteries without evidence of a hemodynamically significan t stenosis NASCET criteria used. Mild 0-49% stenosis Moderate 50-69% stenosis Severe 70-99% stenosis
[2021-09-05] MEDS ORDERED: PNEUMOCOCCAL VACCINE 0.5 ML IMVAC ONE (08:00)
[2021-09-05] MEDS ORDERED: INFLUENZA VACCINE (for 6+ mo) 0.5 ML DOSE IMVAC ONE (08:00)
--- NOTE | 2021-09-05 08:37 | RAD REPORT ---
EXAM DESCRIPTION: MRI - Brain Wo Cont - 09/05/2021 8:23 am CLINICAL HISTORY: Alteration of consciousness/confusion COMPARISON: Head CT September 04, 2021 and June 2021 MRI TECHNIQUE: Axial, sagittal, and coronal magnetic resonance images of the brain were obtained. FINDINGS: Moderate signal within periventricular, deep and subcortical white matter Small old lacunar infarctions thalamus and basal ganglia. Diffusion-weighted/ADC mapping does not reveal evidence of acute infarction. The ventricles are normal caliber. An extra-axial fluid collection is not noted. Fluid within the sinuses/mastoids is not seen IMPRESSION: Moderate signal within periventricular, deep and subcortical white matter probably ische kelvin changes secondary to small vessel disease. A demyelinating process can also have this appearance. No significant change since prior exams
[2021-09-05] MEDS ORDERED: ASPIRIN EC 81 MG TAB PO SCH (09:00)
[2021-09-05] MEDS: MEMANTINE HCL 10 MG TABLET PO SCH ×2 (09:01→20:04)
[2021-09-05] MEDS: CLOPIDOGREL 75 MG TABLET PO SCH (09:01)
[2021-09-05] MEDS: TAMSULOSIN 0.4 MG SR CAP PO SCH (09:01)
[2021-09-05] MEDS: carvediloL 12.5 MG TAB PO SCH ×2 (09:02→20:04)
[2021-09-05] MEDS: AMLODIPINE 2.5 MG TAB PO SCH (09:02)
[2021-09-05] MEDS: levETIRAcetam 500 MG in NA CHLORIDE 0.9% 100 ML IV SCH (09:42)
[2021-09-05 11:49] VITALS: O2SAT 98
--- NOTE | 2021-09-05 11:49 | P.DS ---
Admission Date: 09/04/21 Discharge Date: 09/05/21 Primary Care Provider: Dr. Real; Neurology-Dr. Barrera Disposition: ROUTINE DISCHARGE Discharge Condition: GOOD Reason for Admission: Status post fall; scalp hematoma Consultations: Neurology-Dr. Barrera Procedures: COVID: Negative CT Head/Neck: COMPARISON: February 2021 TECHNIQUE: Computed axial tomography of the head and cervical spine was obtained. Sagittal and coronal reconstruction was performed. All CT scans are performed using dose optimization technique as appropriate and may include automated exposure control or mA/KV adjustment according to patient size. FINDINGS: An intracranial bleed is not seen. Moderate low-density areas within periventricular, deep and subcortical white matter without significant change Small old lacunar infarction right basal ganglia right thalamus. The ventricles are normal in caliber. An extra-axial fluid collection is not noted.Fluid within the visualized sinuses and mastoids is not seen A cervical fracture is not visualized. No dislocation is noted. Spondylosis involves the cervical spine IMPRESSION: Moderate low-density areas within periventricular, deep and subcortical white matter may be secondary to ischemic changes secondary to small vessel disease or a demyelinating process. A cervical fracture is not visualized. MRI Brain: COMPARISON: Head CT September 04, 2021 and June 2021 MRI TECHNIQUE: Axial, sagittal, and coronal magnetic resonance images of the brain were obtained. FINDINGS: Moderate signal within periventricular, deep and subcortical white matter Small old lacunar infarctions thalamus and basal ganglia. Diffusion-weighted/ADC mapping does not reveal evidence of acute infarction. The ventricles are normal caliber. An extra-axial fluid collection is not noted. Fluid within the sinuses/mastoids is not seen IMPRESSION: Moderate signal within periventricular, deep and subcortical white matter probably ischemic changes secondary to small vessel disease. A demyelinating process can also have this appearance. No significant change since prior exams Carotid Doppler: COMPARISON: None FINDINGS: The velocity of the right internal carotid artery equals 73 cm/sec. The right ICA/CCA ratio 1.1 The velocity of the left internal carotid artery equals 81 cm/sec. The left ICA/CCA ratio 0.9. Mild plaque is present within the carotid arteries. Tortuous left common carotid artery The vertebral arteries demonstrate antegrade flow IMPRESSION: Mild plaque within the carotid arteries without evidence of a hemodynamically significant stenosis CXR: COMPARISON: February 2021 FINDINGS: The lungs appear clear of acute infiltrate. The heart is normal size IMPRESSION: No acute abnormalities displayed Medical Problem List: Syncope with history of CVA and dementia Hypertension Hyperlipidemia BPH Chronic renal disease stage III Brief History of Present Illness: 6-year-old -[place] male with history of hypertension, chronic renal disease, hyperlipidemia, and CVA. Patient apparently fell. He only recalls that he blacked out. He does not recall anything else. Patient was evaluated in the emergency room. Scalp hematoma noted. CT scan revealed no evidence of CVA. Patient was admitted for observation. Hospital Course: Patient presented after syncopal episode. Patient with history of CVA and dementia. Patient had scalp hematoma. Initial CT scan showed no evidence of stroke. Patient was observed overnight. MRI showed no evidence of acute infarct. Moderate signal within the periventricular, deep and subcortical white matter probably indicates ischemic changes secondary to small vessel disease. No significant change since prior exams noted. Carotid Doppler shows mild plaque within the carotid arteries without significant stenosis. Patient appears to be at his baseline. Patient evaluated by neurology. Neurology recommended to add Plavix and Keppra to his regimen. No further intervention was required. Due to his risk factors at discharge patient will continue with aspirin 81 mg daily, Plavix 25 mg daily, folic acid 1 mg daily, Lipitor 40 mg daily, and Keppra 500 mg 1 pill twice daily. Recommend follow-up with neurology in 1 to 2 weeks to follow-up his hospitalization. Neurology will follow up on EEG. Fall precautions in place. Home health and physical therapy will be arranged prior to discharge. Patient with hypertension. Blood pressure stable. At discharge patient will continue with Norvasc 2.5 mg daily and carvedilol 12.5 mg 1 pill twice daily. Recommend to maintain blood pressure less than 130/80. Further adjustment may be required. This can be done with the help of his PCP. Patient with hyperlipidemia. At discharge patient will continue with Lipitor 40 mg daily. Recommend follow-up fasting lipid panel within 1 to 2 weeks. Patient with BPH. At discharge patient will continue with finasteride 1 mg daily and Flomax 0.8 mg daily. Patient with dementia. At discharge patient will continue with Namenda 10 mg 1 pill twice daily and Aricept 10 mg daily. Patient also takes Seroquel 50 mg at bedtime. Patient with chronic renal disease stage III. Patient received IV fluids with improvement of renal function. Recommend to recheck labBMP in 1 to 2 weeks to monitor his progress. Vital Signs/Physical Exam: Temp Pulse Resp BP Pulse Ox 97.3 F 61 18 168/81 H 99 09/05/21 08:00 09/05/21 09:02 09/05/21 08:00 09/05/21 09:02 09/05/21 08:00 General: Alert, In no apparent distress, Cooperative HEENT: Atraumatic Neck: Supple Respiratory: Clear to auscultation bilaterally, Normal air movement Cardiovascular: Normal pulses, Regular rate/rhythm Gastrointestinal: Normal bowel sounds, No tenderness, No masses, No rebound, No guarding Musculoskeletal: No erythema, No tenderness, No warmth Integumentary: No tenderness/swelling, No erythema, No warmth, No cyanosis Neurological: Normal speech, Normal strength at 5/5 x4 extr, Normal tone, Normal affect Laboratory Data at Discharge: WBC 8.10 K/uL (4.3-10.9) D 09/05/21 04:49 Hgb 12.3 g/dL (13.6-17.9) L 09/05/21 04:49 Hct 37.4 % (39.6-49.0) L 09/05/21 04:49 Plt Count 178 K/uL (152-406) 09/05/21 04:49 PT 12.6 SECONDS (9.5-12.5) H 09/04/21 13:53 INR 1.09 09/04/21 13:53 Sodium 142 mmol/L (136-145) 09/05/21 04:49 Potassium 3.9 mmol/L (3.5-5.1) 09/05/21 04:49 BUN 19 mg/dL (7-18) H 09/05/21 04:49 Creatinine 1.96 mg/dL (0.55-1.3) H 09/05/21 04:49 Glucose 123 mg/dL (74-106) H 09/05/21 04:49 Magnesium 2.4 mg/dL (1.8-2.4) 09/04/21 13:53 Total Bilirubin 0.4 mg/dL (0.2-1.0) 09/05/21 04:49 AST 17 U/L (15-37) 09/05/21 04:49 ALT 19 U/L (12-78) 09/05/21 04:49 Alkaline Phosphatase 95 U/L (45-117) 09/05/21 04:49 Home Medications: Tamsulosin [Flomax*] 2 cap PO DAILY 03/19/20 Aspirin 81 mg PO BEDTIME 12/23/20 Atorvastatin Calcium [Lipitor] 1 tab PO DAILY 12/23/20 carvediloL [Coreg*] 12.5 mg PO BID 12/23/20 Amlodipine Besylate [Norvasc] 2.5 mg PO DAILY 09/05/21 Donepezil HCl 10 mg PO DAILY 09/05/21 Finasteride 1 tab PO DAILY 09/05/21 Folic Acid 1 mg PO DAILY #90 tablet 09/05/21 Memantine HCl 10 mg PO BID 09/05/21 Quetiapine [Seroquel*] 50 mg PO BEDTIME 09/05/21 New Medications: Folic Acid 1 mg PO DAILY #90 tablet Physician Discharge Instructions: Patient presented after syncopal episode. Patient with history of CVA and dementia. Patient had scalp hematoma. Initial CT scan showed no evidence of stroke. Patient was observed overnight. MRI showed no evidence of acute infarct. Moderate signal within the periventricular, deep and subcortical white matter probably indicates ischemic changes secondary to small vessel disease. No significant change since prior exams noted. Carotid Doppler shows mild plaque within the carotid arteries without significant stenosis. Patient appears to be at his baseline. Patient evaluated by neurology. Neurology recommended to add Plavix and Keppra to his regimen. No further intervention was required. Due to his risk factors at discharge patient will continue with aspirin 81 mg daily, Plavix 25 mg daily, folic acid 1 mg daily, Lipitor 40 mg daily, and Keppra 500 mg 1 pill twice daily. Recommend follow-up with neurology in 1 to 2 weeks to follow-up his hospitalization. Neurology will follow up on EEG. Fall precautions in place. Home health and physical therapy will be arranged prior to discharge. Patient with hypertension. Blood pressure stable. At discharge patient will continue with Norvasc 2.5 mg daily and carvedilol 12.5 mg 1 pill twice daily. Recommend to maintain blood pressure less than 130/80. Further adjustment may be required. This can be done with the help of his PCP. Patient with hyperlipidemia. At discharge patient will continue with Lipitor 40 mg daily. Recommend follow-up fasting lipid panel within 1 to 2 weeks. Patient with BPH. At discharge patient will continue with finasteride 1 mg daily and Flomax 0.8 mg daily. Patient with dementia. At discharge patient will continue with Namenda 10 mg 1 pill twice daily and Aricept 10 mg daily. Patient also takes Seroquel 50 mg at bedtime. Patient with chronic renal disease stage III. Patient received IV fluids with improvement of renal function. Recommend to recheck labBMP in 1 to 2 weeks to monitor his progress. Diet: AHA Activity: Fall precautions Followup: AMELIA CISNEROS [Primary Care Provider] - Time spent managing pt's care (in minutes): 55
--- NOTE | 2021-09-05 18:26 | EKG ---
Test Date: 2021-09-04 Test Time: 14:42:59 Hoop Puncher: FARSHAD MEASUREMENT RESULTS: Intervals: Rate: 60 IN: 156 QRSD: 82 QT: 426 QTc: 426 [place]: P: 65 IN: 156 QRS: 51 T: 55 INTERPRETIVE STATEMENTS: Normal sinus rhythm Normal ECG Compared to ECG 03/23/2021 22:04:55 Left ventricular hypertrophy no longer present Electronically Signed On 09-05-21 18:23:41 RELAY ADJUSTER by Kin Bennett
[2021-09-05] MEDS: ENOXAPARIN 40 MG/0.4 ML SQ SCH (18:37)
[2021-09-05] MEDS: levETIRAcetam 500 MG TAB PO SCH (20:04)
[2021-09-05] MEDS: DONEPEZIL HCL 5 MG TAB PO SCH (20:04)
[2021-09-05] MEDS: ATORVASTATIN 40 MG TAB PO SCH (20:04)
[2021-09-05] MEDS: QUETIAPINE 25 MG TAB PO SCH (20:04)
--- NOTE | 2021-09-05 23:51 | CON ---
Reason For Consultation: Consultation called because of possible seizures. History Of Present Illness: Mr. Marmolejo is a 66-year-old right-handed patient who has a history of stroke, hypertension, dyslipidemia who comes in after a fall and syncopal episode. The event occurred this weekend after the patient came back from [place] and was doing well while at home . He recalls going to a store and towards his yard when he passed out. He reportedly fell, hit his scalp, and lost control. It is not clear if he had tonic or clonic activity. He was brought to [facility] by emergency services where his head CT scan showed no acute ischemic or hemorrhagic change. Trauma series showed no acute fractures. There was moderate small-vessel ischemic disease. His brain MRI done earlier today showed moderate small-vessel disease but no acute ischemic or hemor rhagic change. Carotid artery ultrasound showed mild plaque without evidence of hemodynamically sign ificant stenosis and echocardiogram results are pending. His laboratory studiesessentially showed un remarkable complete blood count with differential. Coagulation panel unremarkable. Chemistries cons istent with chronic kidney failure. Creatinine was 2.29 on admission, with hydration 1.96, otherwise his calcium and magnesium are unremarkable. Liver function studies unremarkable. His LDL cholester ol is 29, HDL 38. Urinalysis showed trace ketones, 1+ total protein, and COVID-19 test was negative. His electrocardiogram showed normal sinus rhythm, was a normal study. He has had no seizure-like a ctivity since being hospitalized. No further syncopal episodes. Past Medical History: As indicated above and including chronic disease, COPD, history of cocaine abu se, carotid artery disease, prior stroke, hepatitis C, chronic back pain, or upper GI bleed. Past Surgical History: Left shoulder surgery, GI surgery. Allergies: NO KNOWN DRUG ALLERGIES. Medications: At home, Flomax twice daily, aspirin 81 mg daily, Lipitor at night, Coreg 12.5 mg twice daily, Norvasc 2.5 mg daily, donepezil 10 mg daily, finasteride 1 tablet daily, memantine 10 mg twic e daily, Seroquel 50 mg at bedtime. Family History: Mother with hypertension. Brother with hypertension. Brother with hypertension. S ister with hypertension. Social History: Currently smokes up to a pack of cigarettes daily and drinks alcohol and denies rece nt illegal drug use. Review of Systems: Aside from mentioned above, no recent chills, fevers, nausea, vomiting, myalgias, arthralgias. Physical Examination: VITAL SIGNS: Blood pressure 147/67, pulse 66, respiratory rate 18, temperature 97.3, oxygen saturati on 97%. Weight 150 pounds, height 5 feet 11 inches, BMI 20.9. General: Mr. Marmolejo is resting in bed. He is in no significant distress. HEENT: He has a mild bruising on his scalp. Otherwise, atraumatic. Sclerae anicteric. Oropharynx is moist. Motor Examination: Despite his prior stroke, no obvious focal deficits. Sensation intact with mild stocking-glove loss. Reflexes symmetric and depressed. Coordination is slow, but intact in the uppe r and lower extremities. In terms of ambulation, he did have some mild difficulty with ambulation bu t able to ambulate with short steps using a Rollator with supervision. Assessment: Mr. Marmolejo is a 66-year-old patient with multiple medical problems as noted above, who po ssibly had a seizure episode at home. He actually is on now Keppra at the dosage of 500 mg twice phyllis ly along with medications for dementia, stroke risk reduction, blood pressure management, prostate hy pertrophy and for depression with some psychotic features. Plan: 1.Continue Keppra 500 mg twice daily. We will check blood level within the next 10 days. 2.After discharge, the patient may have outpatient EEG. 3.He should maintain an event or seizure diary. GIO Voice ID: [id number] Report ID: [id number]
[2021-09-06 05:41] LABS: Magnesium 2.4 mg/dL (1.8-2.4); Potassium 4.1 mmol/L (3.5-5.1)
--- NOTE | 2021-09-06 06:00 | P.PN ---
Subjective Date of Service: 09/06/21 Primary Care Provider: Dr. Real; Neurology-Dr. Barrera Chief Complaint: Status post fall; scalp hematoma Subjective: Doing well, Other (Discharge was held yesterday as family wants patient to be evaluated for inpatient rehab. Patient doing well at this time.) Physical Examination - Vital Signs Temperature: 96.9 F Blood Pressure: 164/87 Pulse: 61 Respirations: 18 Pulse Ox (%): 98 Assessment & Plan Discharge Plan: Other (Inpatient rehab versus home with home health) Plan to discharge in: 48 Hours Physician Review Additional Text: COVID: Negative CT Head/Neck: COMPARISON: February 2021 TECHNIQUE: Computed axial tomography of the head and cervical spine was obtained. Sagittal and coronal reconstruction was performed. All CT scans are performed using dose optimization technique as appropriate and may include automated exposure control or mA/KV adjustment according to patient size. FINDINGS: An intracranial bleed is not seen. Moderate low-density areas within periventricular, deep and subcortical white matter without significant change Small old lacunar infarction right basal ganglia right thalamus. The ventricles are normal in caliber. An extra-axial fluid collection is not noted.Fluid within the visualized sinuses and mastoids is not seen A cervical fracture is not visualized. No dislocation is noted. Spondylosis involves the cervical spine IMPRESSION: Moderate low-density areas within periventricular, deep and subcortical white matter may be secondary to ischemic changes secondary to small vessel disease or a demyelinating process. A cervical fracture is not visualized. MRI Brain: COMPARISON: Head CT September 04, 2021 and June 2021 MRI TECHNIQUE: Axial, sagittal, and coronal magnetic resonance images of the brain were obtained. FINDINGS: Moderate signal within periventricular, deep and subcortical white matter Small old lacunar infarctions thalamus and basal ganglia. Diffusion-weighted/ADC mapping does not reveal evidence of acute infarction. The ventricles are normal caliber. An extra-axial fluid collection is not noted. Fluid within the sinuses/mastoids is not seen IMPRESSION: Moderate signal within periventricular, deep and subcortical white matter probably ischemic changes secondary to small vessel disease. A demyelinating process can also have this appearance. No significant change since prior exams Carotid Doppler: COMPARISON: None FINDINGS: The velocity of the right internal carotid artery equals 73 cm/sec. The right ICA/CCA ratio 1.1 The velocity of the left internal carotid artery equals 81 cm/sec. The left ICA/CCA ratio 0.9. Mild plaque is present within the carotid arteries. Tortuous left common carotid artery The vertebral arteries demonstrate antegrade flow IMPRESSION: Mild plaque within the carotid arteries without evidence of a hemodynamically significant stenosis CXR: COMPARISON: February 2021 FINDINGS: The lungs appear clear of acute infiltrate. The heart is normal size IMPRESSION: No acute abnormalities displayed Physical Exam: GENERAL: The patient is a well-developed, well-nourished, in no apparent distress. Alert and oriented x3. VITAL SIGNS: Reviewed HEENT: Head is normocephalic and atraumatic. Extraocular muscles are intact. Pupils are equal, round, and reactive to light and accommodation. Nares appeared normal. Mouth is well hydrated and without lesions. Mucous membranes are moist. NECK: Supple. No carotid bruits. No lymphadenopathy or thyromegaly. LUNGS: Clear to auscultation. No crackles or wheezes are heard. HEART: Regular rate and rhythm, no appreciable gallops, rubs, murmurs or extra heart sounds ABDOMEN: Soft, nontender, and nondistended. Positive bowel sounds. No hepatosplenomegaly was noted. EXTREMITIES: Without any cyanosis, clubbing, rash, lesions or peripheral edema. NEUROLOGIC: The patient is oriented to person, place and time. Strength and sensation are grossly intact. Face is symmetric. SKIN: Normal color, turgor and temperature. No ulcerations or rashes noted. Impression: Syncope with history of CVA and dementia Hypertension Hyperlipidemia BPH Chronic renal disease stage III Plan: Syncope with history of CVA and dementia: Patient doing well at this time. Patient was to be discharged home but family wanted patient to be evaluated for inpatient rehab. Await approval. If denied will need to consider skilled placement or home with home health and physical therapy. Patient has been evaluated by neurology. No evidence of stroke noted. Patient with history of CVA and dementia. Patient had scalp hematoma. Initial CT scan showed no evidence of stroke. MRI showed no evidence of acute infarct. Moderate signal within the periventricular, deep and subcortical white matter probably indicates ischemic changes secondary to small vessel disease. No significant change since prior exams noted. Carotid Doppler shows mild plaque within the carotid arteries without significant stenosis. Patient now appears to be at his baseline. Neurology recommended to add Plavix and Keppra to his regimen due to his history of CVA and dementia. Seizure could not be ruled out therefore patient to continue with Keppra as recommended by neurology. EEG to be performed today. No further intervention was required. Patient currently on aspirin 81 mg daily, Plavix 75 mg daily, folic acid 1 mg daily, Lipitor 40 mg daily, and Keppra 500 mg 1 pill twice daily. We will check Keppra level today. Continue with seizure precautions: no driving, operating heavy machinery, swimming alone, or use of any ladders. Family desires patient to go to inpatient rehab. Await approval for inpatient rehab. Hypertension: Blood pressure still slightly elevated. Will increase Norvasc to 5 mg daily. Continue carvedilol 12.5 mg 1 pill twice daily. Recommend to maintain blood pressure less than 130/80. Further adjustment may be required. This can be done with the help of his PCP. Hyperlipidemia: At discharge patient will continue with Lipitor 40 mg daily. Recommend follow-up fasting lipid panel within 1 to 2 weeks. BPH: At discharge patient will continue with finasteride 1 mg daily and Flomax 0.8 mg daily. Dementia: At discharge patient will continue with Namenda 10 mg 1 pill twice daily and Aricept 10 mg daily. Patient also takes Seroquel 50 mg at bedtime. Chronic renal disease stage III: Patient with chronic renal disease stage III. Patient received IV fluids with improvement of renal function. Recommend to recheck labBMP in 1 to 2 weeks to monitor his progress. Code Status: Full Code DVT prophylaxis: Lovenox Advanced Care Planning-30 minutes: Family desires patient to go to inpatient rehab. Inpatient rehab consult made. Await approval. Time Spent Managing Pts Care (In Minutes): 55
[2021-09-06] MEDS: TAMSULOSIN 0.4 MG SR CAP PO SCH (08:20)
[2021-09-06] MEDS: AMLODIPINE 2.5 MG TAB PO SCH (08:20)
[2021-09-06] MEDS: CLOPIDOGREL 75 MG TABLET PO SCH (08:20)
[2021-09-06] MEDS: carvediloL 12.5 MG TAB PO SCH ×2 (08:21→20:46)
[2021-09-06] MEDS: MEMANTINE HCL 10 MG TABLET PO SCH ×2 (08:22→20:46)
[2021-09-06] MEDS: levETIRAcetam 500 MG TAB PO SCH ×2 (08:22→20:45)
[2021-09-06] MEDS: ASPIRIN EC 81 MG TAB PO SCH (08:22)
[2021-09-06] MEDS: FINASTERIDE 5 MG TAB PO SCH (08:42)
[2021-09-06] MEDS: AMLODIPINE 5 MG TAB PO SCH (11:23)
[2021-09-06] MEDS: ENOXAPARIN 40 MG/0.4 ML SQ SCH (16:14)
[2021-09-06] MEDS: QUETIAPINE 25 MG TAB PO SCH (20:45)
[2021-09-06] MEDS: DONEPEZIL HCL 5 MG TAB PO SCH (20:45)
[2021-09-06] MEDS: ATORVASTATIN 40 MG TAB PO SCH (20:45)
[2021-09-06] MEDS ORDERED: MELATONIN 5 MG TABLET PO PRN (21:21)
--- NOTE | 2021-09-07 05:53 | P.PN ---
Subjective Date of Service: 09/07/21 Primary Care Provider: Dr. Real; Neurology-Dr. Barrera Chief Complaint: Status post fall; scalp hematoma Subjective: Doing well Physical Examination - Vital Signs Temperature: 96.8 F Blood Pressure: 140/74 Pulse: 57 Respirations: 19 Pulse Ox (%): 97 Assessment & Plan Discharge Plan: Other (Inpatient rehab) Plan to discharge in: 24 Hours Physician Review Additional Text: COVID: Negative CT Head/Neck: COMPARISON: February 2021 TECHNIQUE: Computed axial tomography of the head and cervical spine was obtained. Sagittal and coronal reconstruction was performed. All CT scans are performed using dose optimization technique as appropriate and may include automated exposure control or mA/KV adjustment according to patient size. FINDINGS: An intracranial bleed is not seen. Moderate low-density areas within periventricular, deep and subcortical white matter without significant change Small old lacunar infarction right basal ganglia right thalamus. The ventricles are normal in caliber. An extra-axial fluid collection is not noted.Fluid within the visualized sinuses and mastoids is not seen A cervical fracture is not visualized. No dislocation is noted. Spondylosis involves the cervical spine IMPRESSION: Moderate low-density areas within periventricular, deep and subcortical white matter may be secondary to ischemic changes secondary to small vessel disease or a demyelinating process. A cervical fracture is not visualized. MRI Brain: COMPARISON: Head CT September 04, 2021 and June 2021 MRI TECHNIQUE: Axial, sagittal, and coronal magnetic resonance images of the brain were obtained. FINDINGS: Moderate signal within periventricular, deep and subcortical white m atter Small old lacunar infarctions thalamus and basal ganglia. Diffusion-weighted/ADC mapping does not reveal evidence of acute infarction. The ventricles are normal caliber. An extra-axial fluid collection is not noted. Fluid within the sinuses/mastoids is not seen IMPRESSION: Moderate signal within periventricular, deep and subcortical white matter probably ischemic changes secondary to small vessel disease. A demyelinating process can also have this appearance. No significant change since prior exams Carotid Doppler: COMPARISON: None FINDINGS: The velocity of the right internal carotid artery equals 73 cm/sec. The right ICA/CCA ratio 1.1 The velocity of the left internal carotid artery equals 81 cm/sec. The left ICA/CCA ratio 0.9. Mild plaque is present within the carotid arteries. Tortuous left common carotid artery The vertebral arteries demonstrate antegrade flow IMPRESSION: Mild plaque within the carotid arteries without evidence of a hemodynamically significant stenosis CXR: COMPARISON: February 2021 FINDINGS: The lungs appear clear of acute infiltrate. The heart is normal size IMPRESSION: No acute abnormalities displayed Physical Exam: GENERAL: Patient doing well. No complaints noted. Oriented x3. VITAL SIGNS: Reviewed HEENT: Neck supple LUNGS: Clear to auscultation. No crackles or wheezes are heard. HEART: Regular rate and rhythm, no appreciable gallops, rubs, murmurs or extra heart sounds ABDOMEN: Soft, nontender, and nondistended. Positive bowel sounds. No hepatosplenomegaly was noted. EXTREMITIES: Without any cyanosis, clubbing, rash, lesions or peripheral edema. NEUROLOGIC: Strength intact. Good range of motion. No focal deficits. Patient alert, cooperative. SKIN: Normal color, turgor and temperature. No ulcerations or rashes noted. Impression: Syncope with history of CVA and dementia Hypertension Hyperlipidemia BPH Chronic renal disease stage III Plan: Syncope with history of CVA and dementia: Patient doing well at this time. Patient remains on Keppra 500 mg 1 pill twice daily along with aspirin 81 mg daily, Plavix 75 mg daily, folic acid 1 mg daily, and Lipitor 40 mg daily. Patient with history of CVA and dementia. Patient had scalp hematoma. Initial CT scan showed no evidence of stroke. MRI showed no evidence of acute infarct. Moderate signal within the periventricular, deep and subcortical white matter probably indicates ischemic changes secondary to small vessel disease. No significant change since prior exams noted. Carotid Doppler shows mild plaque within the carotid arteries without significant stenosis. Patient now appears to be at his baseline. Patient to continue with seizure precautions: no driving, operating heavy machinery, swimming alone, or use of any ladders. Family desires patient to go to inpatient rehab. Currently awaiting approval for inpatient rehab. Continue with physical therapy and Occupational Therapy. Anticipate discharge in the next 24 to 48 hours if approved. Hypertension: Blood pressure improved with adjustment in medication. Currently on Norvasc 5 mg daily and carvedilol 12.5 mg 1 pill twice daily. Recommend to maintain blood pressure less than 130/80. Hyperlipidemia: Patient doing well at this time. Continue Lipitor 40 mg daily. BPH: Continue with finasteride 1 mg daily and Flomax 0.8 mg daily. Dementia: Continue with Namenda 10 mg 1 pill twice daily and Aricept 10 mg daily. Patient also takes Seroquel 50 mg at bedtime. Chronic renal disease stage III: Overall stable. Code Status: Full Code DVT prophylaxis: Lovenox Advanced Care Planning-30 minutes: Family desires patient to go to inpatient rehab. Inpatient rehab consult made. Await approval. Time Spent Managing Pts Care (In Minutes): 55
--- NOTE | 2021-09-07 06:48 | ECHO ---
HEIGHT: 5 ft 11 in WEIGHT: 150 lb 0 oz DATE OF STUDY: 09/05/[address]: Dean Calvillo MD 2-DIMENSIONAL: YES M.MODE: YES DOPPLER: YES COLOR FLOW: YES TDS: PORTABLE: DEFINITY: BUBBLE STUDY: DIAGNOSIS: SYNCOPE CARDIAC HISTORY: CATHERIZATION: NO SURGERY: NO PROSTHETIC VALVE: NO PACEMAKER: NO MEASUREMENTS (cm) DIASTOLIC (NORMALS) SYSTOLIC (NORMALS) IVSd 1.0 (0.6-1.2) LA Diam 2.5 (1.9-4.0) LVEF 50% LVIDd 2.1 (3.5-5.7) LVIDs 1.6 (2.0-3.5) %FS 24% LVPWd 1.0 (0.6-1.2) Ao Diam 2.3 (2.0-3.7) 2 DIMENSIONAL ASSESSMENT: RIGHT ATRIUM: LEFT ATRIUM: RIGHT VENTRICLE: LEFT VENTRICLE: TRICUSPID VALVE: MITRAL VALVE: PULMONIC VALVE: AORTIC VALVE: PERICARDIAL EFFUSION: AORTIC ROOT: LEFT VENTRICULAR WALL MOTION: DOPPLER/COLOR FLOW: COMMENTS: NORMAL 2-DIMENSIONAL ECHOCARDIOGRAM WITH DOPPLER. NO WALL MOTION ABNORMALITY. NO EFFUSION. TECHNOLOGIST: STEFANIA VELAZQUEZ
[2021-09-07] MEDS: carvediloL 12.5 MG TAB PO SCH ×2 (09:00→19:59)
[2021-09-07] MEDS: CLOPIDOGREL 75 MG TABLET PO SCH (09:24)
[2021-09-07] MEDS: AMLODIPINE 5 MG TAB PO SCH (09:25)
[2021-09-07] MEDS: levETIRAcetam 500 MG TAB PO SCH ×2 (09:25→19:59)
[2021-09-07] MEDS: MEMANTINE HCL 10 MG TABLET PO SCH ×2 (09:25→19:59)
[2021-09-07] MEDS: FINASTERIDE 5 MG TAB PO SCH (09:26)
[2021-09-07] MEDS: ASPIRIN EC 81 MG TAB PO SCH (09:27)
[2021-09-07] MEDS: TAMSULOSIN 0.4 MG SR CAP PO SCH (09:28)
[2021-09-07] MEDS: ENOXAPARIN 40 MG/0.4 ML SQ SCH (16:24)
[2021-09-07] MEDS: QUETIAPINE 25 MG TAB PO SCH (19:59)
[2021-09-07] MEDS: DONEPEZIL HCL 5 MG TAB PO SCH (19:59)
[2021-09-07] MEDS: ATORVASTATIN 40 MG TAB PO SCH (19:59)
--- NOTE | 2021-09-08 05:50 | P.PN ---
Subjective Date of Service: 09/08/21 Primary Care Provider: Dr. Real; Neurology-Dr. Barrera Chief Complaint: Status post fall; scalp hematoma Subjective: Doing well Physical Examination - Vital Signs Temperature: 97.6 F Blood Pressure: 161/77 Pulse: 61 Respirations: 18 Pulse Ox (%): 97 Assessment & Plan Discharge Plan: Other (Inpatient rehab) Plan to discharge in: 24 Hours Physician Review Additional Text: COVID: Negative CT Head/Neck: COMPARISON: February 2021 TECHNIQUE: Computed axial tomography of the head and cervical spine was obtained. Sagittal and coronal reconstruction was performed. All CT scans are performed using dose optimization technique as appropriate and may include automated exposure control or mA/KV adjustment according to patient size. FINDINGS: An intracranial bleed is not seen. Moderate low-density areas within periventricular, deep and subcortical white matter without significant change Small old lacunar infarction right basal ganglia right thalamus. The ventricles are normal in caliber. An extra-axial fluid collection is not noted.Fluid within the visualized sinuses and mastoids is not seen A cervical fracture is not visualized. No dislocation is noted. Spondylosis involves the cervical spine IMPRESSION: Moderate low-density areas within periventricular, deep and subcortical white matter may be secondary to ischemic changes secondary to small vessel disease or a demyelinating process. A cervical fracture is not visualized. MRI Brain: COMPARISON: Head CT September 04, 2021 and June 2021 MRI TECHNIQUE: Axial, sagittal, and coronal magnetic resonance images of the brain were obtained. FINDINGS: Moderate signal within periventricular, deep and subcortical white m atter Small old lacunar infarctions thalamus and basal ganglia. Diffusion-weighted/ADC mapping does not reveal evidence of acute infarction. The ventricles are normal caliber. An extra-axial fluid collection is not noted. Fluid within the sinuses/mastoids is not seen IMPRESSION: Moderate signal within periventricular, deep and subcortical white matter probably ischemic changes secondary to small vessel disease. A demyelinating process can also have this appearance. No significant change since prior exams Carotid Doppler: COMPARISON: None FINDINGS: The velocity of the right internal carotid artery equals 73 cm/sec. The right ICA/CCA ratio 1.1 The velocity of the left internal carotid artery equals 81 cm/sec. The left ICA/CCA ratio 0.9. Mild plaque is present within the carotid arteries. Tortuous left common carotid artery The vertebral arteries demonstrate antegrade flow IMPRESSION: Mild plaque within the carotid arteries without evidence of a hemodynamically significant stenosis CXR: COMPARISON: February 2021 FINDINGS: The lungs appear clear of acute infiltrate. The heart is normal size IMPRESSION: No acute abnormalities displayed Physical Exam: GENERAL: Patient doing well. No complaints noted. Oriented x3. VITAL SIGNS: Reviewed HEENT: Neck supple LUNGS: Clear to auscultation. No crackles or wheezes are heard. HEART: Regular rate and rhythm, no appreciable gallops, rubs, murmurs or extra heart sounds ABDOMEN: Soft, nontender, and nondistended. Positive bowel sounds. No hepatosplenomegaly was noted. EXTREMITIES: Without any cyanosis, clubbing, rash, lesions or peripheral edema. NEUROLOGIC: Strength intact. Good range of motion. No focal deficits. Patient alert, cooperative. SKIN: Normal color, turgor and temperature. No ulcerations or rashes noted. Impression: Syncope with history of CVA and dementia Hypertension Hyperlipidemia BPH Chronic renal disease stage III Plan: Syncope with history of CVA and dementia: Patient doing well at this time. Patient remains on Keppra 500 mg 1 pill twice daily along with aspirin 81 mg daily, Plavix 75 mg daily, folic acid 1 mg daily, and Lipitor 40 mg daily. Patient with history of CVA and dementia. Patient had scalp hematoma. Initial CT scan showed no evidence of stroke. MRI showed no evidence of acute infarct. Moderate signal within the periventricular, deep and subcortical white matter probably indicates ischemic changes secondary to small vessel disease. No significant change since prior exams noted. Carotid Doppler shows mild plaque within the carotid arteries without significant stenosis. Patient at his baseline. Patient to continue with seizure precautions: no driving, operating heavy machinery, swimming alone, or use of any ladders. I had a long discussion with family concerning plan of care, this included Dr. Barrera. Family initially wanted patient to be transferred for high-level care. Both Dr. Barrera and I explained to the family that the patient did not require any further higher level of care. Family understood. Then there was a discussion of whether the patient would go home with home health and physical therapy or inpatient rehab. After a long discussion family decided to wait on inpatient rehab. Awaiting inpatient rehab acceptance. If accepted patient will go to inpatient rehab. If decline will need to consider home with home health and physical therapy or skilled placement. The process of this was explained in detail with family. Hypertension: Blood pressure stable. Currently on Norvasc 5 mg daily and carvedilol 12.5 mg 1 pill twice daily. Recommend to maintain blood pressure less than 130/80. Will make adjustments accordingly. Hyperlipidemia: Patient doing well at this time. Continue Lipitor 40 mg daily. BPH: Continue with finasteride 1 mg daily and Flomax 0.8 mg daily. Dementia: Continue with Namenda 10 mg 1 pill twice daily and Aricept 10 mg daily. Patient also takes Seroquel 50 mg at bedtime. Chronic renal disease stage III: Overall stable. Code Status: Full Code DVT prophylaxis: Lovenox Advanced Care Planning-30 minutes: Awaiting approval for inpatient rehab. If declined will need to consider home health with physical therapy versus skilled placement. Time Spent Managing Pts Care (In Minutes): 55
[2021-09-08] MEDS: AMLODIPINE 5 MG TAB PO SCH (08:45)
[2021-09-08] MEDS: FINASTERIDE 5 MG TAB PO SCH (08:45)
[2021-09-08] MEDS: CLOPIDOGREL 75 MG TABLET PO SCH (08:45)
[2021-09-08] MEDS: levETIRAcetam 500 MG TAB PO SCH (08:45)
[2021-09-08] MEDS: MEMANTINE HCL 10 MG TABLET PO SCH (08:45)
[2021-09-08] MEDS: TAMSULOSIN 0.4 MG SR CAP PO SCH (08:45)
[2021-09-08] MEDS: ASPIRIN EC 81 MG TAB PO SCH (08:45)
[2021-09-08] MEDS: carvediloL 12.5 MG TAB PO SCH (08:46)
--- NOTE | 2021-09-08 09:09 | EEG ---
CHART: [id number] TEST ID#: [id number] DATE OF STUDY: 09/06/2021 THE EEG WAS RECORDED PORTABLE IN THE PATIENT'S ROOM ON A 17 CHANNEL MACHINE. ELECTRODES WERE APPLIED IN THE USUAL MANNER USING THE INTERNATIONAL 10-20 SYSTEM. THE [place]AK[place] BACKGROUND RHYTHM IN THIS RECORD CONSISTS OF FAIRLY WELL DEVELOPED AND FAIRLY WELL ORGANIZED WAVES OF 8.5-9 HZ., MAXIMAL IN THE POSTERIOR HEAD REGIONS WHICH ATTENUATE NORMALLY WITH EYE OPENING. LOW-VOLTAGE 18-22 HZ ACTIVITY IS EXPRESSED IN THE FRONTAL REGIONS. THERE ARE NO FOCAL OR LATERALIZING FEATURES. NO EPILEPTIFORM ACTIVITY APPEARS. SLEEP DID NOT OCCUR. HYPERVENTILATION WAS NOT PERFORMED. PHOTIC STIMULATION PRODUCED NO DRIVING BILATERALLY. IMPRESSION: NORMAL EEG FOR THE AGE OF THE PATIENT IN [place].
--- NOTE | 2021-09-08 15:47 | P.DS ---
Admission Date: 09/04/21 Discharge Date: 09/08/21 Primary Care Provider: Dr. Real; Neurology-Dr. Barrera Disposition: ROUTINE DISCHARGE Discharge Condition: GOOD Reason for Admission: Status post fall; scalp hematoma Consultations: Neurology-Dr. Barrera Procedures: COVID: Negative CT Head/Neck: COMPARISON: February 2021 TECHNIQUE: Computed axial tomography of the head and cervical spine was obtained. Sagittal and coronal reconstruction was performed. All CT scans are performed using dose optimization technique as appropriate and may include automated exposure control or mA/KV adjustment according to patient size. FINDINGS: An intracranial bleed is not seen. Moderate low-density areas within periventricular, deep and subcortical white matter without significant change Small old lacunar infarction right basal ganglia right thalamus. The ventricles are normal in caliber. An extra-axial fluid collection is not noted.Fluid within the visualized sinuses and mastoids is not seen A cervical fracture is not visualized. No dislocation is noted. Spondylosis involves the cervical spine IMPRESSION: Moderate low-density areas within periventricular, deep and subcortical white matter may be secondary to ischemic changes secondary to small vessel disease or a demyelinating process. A cervical fracture is not visualized. MRI Brain: COMPARISON: Head CT September 04, 2021 and June 2021 MRI TECHNIQUE: Axial, sagittal, and coronal magnetic resonance images of the brain were obtained. FINDINGS: Moderate signal within periventricular, deep and subcortical white matter Small old lacunar infarctions thalamus and basal ganglia. Diffusion-weighted/ADC mapping does not reveal evidence of acute infarction. The ventricles are normal caliber. An extra-axial fluid collection is not noted. Fluid within the sinuses/mastoids is not seen IMPRESSION: Moderate signal within periventricular, deep and subcortical white matter probably ischemic changes secondary to small vessel disease. A demyelinating process can also have this appearance. No significant change since prior exams Carotid Doppler: COMPARISON: None FINDINGS: The velocity of the right internal carotid artery equals 73 cm/sec. The right ICA/CCA ratio 1.1 The velocity of the left internal carotid artery equals 81 cm/sec. The left ICA/CCA ratio 0.9. Mild plaque is present within the carotid arteries. Tortuous left common carotid artery The vertebral arteries demonstrate antegrade flow IMPRESSION: Mild plaque within the carotid arteries without evidence of a hemodynamically significant stenosis CXR: COMPARISON: February 2021 FINDINGS: The lungs appear clear of acute infiltrate. The heart is normal size IMPRESSION: No acute abnormalities displayed Medical Problem List: Syncope with history of CVA and dementia suspect seizure Hypertension Hyperlipidemia BPH Chronic renal disease stage III Brief History of Present Illness: 6-year-old -[place] male with history of hypertension, chronic renal disease, hyperlipidemia, and CVA. Patient apparently fell. He only recalls that he blacked out. He does not recall anything else. Patient was evaluated in the emergency room. Scalp hematoma noted. CT scan revealed no evidence of CVA. Patient was admitted for observation. Hospital Course: Patient presented after syncopal episode. Patient with history of CVA and dementia. Patient had a fall with scalp hematoma. Initial CT scan showed no evidence of stroke. Patient was observed overnight. MRI showed no evidence of acute infarct. Moderate signal within the periventricular, deep and subcortical white matter probably indicates ischemic changes secondary to small vessel disease. No significant change since prior exams noted. Carotid Doppler shows mild plaque within the carotid arteries without significant stenosis. Patient was seen and evaluated by neurology. Neurologist elected patient had seizure. Patient was placed on Keppra. Patient has done well. Patient worked with physical therapy and Occupational Therapy. Patient was evaluated for inpatient rehab. Unfortunately patient was denied by insurance. This was discussed with medical dermatologist as well. At discharge patient doing well with physical therapy and Occupational Therapy. Care discussed in detail with daughter. Daughter understands the decision by insurance. We will proceed with discharge home with home health and physical therapy. Neurology recommends to continue with current medication. No further intervention was required. At discharge patient will continue with aspirin 81 mg daily, Plavix 25 mg daily, folic acid 1 mg daily, Lipitor 40 mg daily, and Keppra 500 mg 1 pill twice daily. Recommend follow-up with neurology in 1 to 2 weeks to follow-up his hospitalization. Fall precautions in place. Patient will continue with seizure precautions. No driving, operating heavy machinery, swimming alone, or getting on any high structures without assistance. Home health and physical therapy will be arranged prior to discharge. Recommend to recheck Keppra level in 1 week to monitor his progress. Recommend follow-up with PCP in 1 week to follow-up his hospitalization. Patient with hypertension. Blood pressure stable. Medication was adjusted during the course of his stay. At discharge patient will continue with Norvasc 5 mg daily and carvedilol 12.5 mg 1 pill twice daily. Recommend to maintain blood pressure less than 130/80. Further adjustment may be required. This can be done with the help of his PCP. Patient with hyperlipidemia. At discharge patient will continue with Lipitor 40 mg daily. Recommend follow-up fasting lipid panel and CMP to monitor his progress within 1 to 2 weeks. Patient with BPH. At discharge patient will continue with finasteride 1 mg daily and Flomax 0.8 mg daily. Patient with dementia. At discharge patient will continue with Namenda 10 mg 1 pill twice daily and Aricept 10 mg daily. Patient also takes Seroquel 50 mg at bedtime. Patient with chronic renal disease stage III. Patient received IV fluids with improvement of renal function. Recommend to recheck labBMP in 1 to 2 weeks to monitor his progress. Vital Signs/Physical Exam: Temp Pulse Resp BP Pulse Ox 97.2 F 92 H 20 157/74 H 99 09/08/21 12:00 09/08/21 12:00 09/08/21 12:00 09/08/21 12:00 09/08/21 12:00 General: Alert, In no apparent distress, Cooperative HEENT: Atraumatic Neck: Supple Respiratory: Clear to auscultation bilaterally, Normal air movement Cardiovascular: Normal pulses, Regular rate/rhythm Gastrointestinal: Normal bowel sounds, No tenderness, No masses, No rebound, No guarding Musculoskeletal: No erythema, No tenderness, No warmth Integumentary: No tenderness/swelling, No erythema, No warmth, No cyanosis Neurological: Normal speech, Normal strength at 5/5 x4 extr, Normal tone, Durga ntia (Mild) Laboratory Data at Discharge: WBC 8.10 K/uL (4.3-10.9) D 09/05/21 04:49 Hgb 12.3 g/dL (13.6-17.9) L 09/05/21 04:49 Hct 37.4 % (39.6-49.0) L 09/05/21 04:49 Plt Count 178 K/uL (152-406) 09/05/21 04:49 PT 12.6 SECONDS (9.5-12.5) H 09/04/21 13:53 INR 1.09 09/04/21 13:53 Sodium 144 mmol/L (136-145) 09/06/21 05:10 Potassium 4.1 mmol/L (3.5-5.1) 09/06/21 05:10 BUN 11 mg/dL (7-18) 09/06/21 05:10 Creatinine 2.05 mg/dL (0.55-1.3) H 09/06/21 05:10 Glucose 86 mg/dL (74-106) 09/06/21 05:10 Magnesium 2.4 mg/dL (1.8-2.4) 09/06/21 05:10 Total Bilirubin 0.4 mg/dL (0.2-1.0) 09/05/21 04:49 AST 17 U/L (15-37) 09/05/21 04:49 ALT 19 U/L (12-78) 09/05/21 04:49 Alkaline Phosphatase 95 U/L (45-117) 09/05/21 04:49 Triglycerides 96 mg/dL (<150) 09/05/21 04:49 Cholesterol 86 mg/dL (<200) 09/05/21 04:49 HDL Cholesterol 38 mg/dL (40-60) L 09/05/21 04:49 Cholesterol/HDL Ratio 2.26 09/05/21 04:49 Home Medications: Tamsulosin [Flomax*] 2 cap PO DAILY 03/19/20 Aspirin 81 mg PO BEDTIME 12/23/20 Atorvastatin Calcium [Lipitor] 1 tab PO DAILY 12/23/20 carvediloL [Coreg*] 12.5 mg PO BID 12/23/20 Clopidogrel Bisulfate [Plavix*] 75 mg PO DAILY #30 tablet 09/05/21 Donepezil HCl 10 mg PO DAILY 09/05/21 Folic Acid 1 mg PO DAILY #90 tablet 09/05/21 Levetiracetam [Keppra] 500 mg PO BID #60 tablet 09/05/21 Memantine HCl 10 mg PO BID 09/05/21 Quetiapine [Seroquel*] 50 mg PO BEDTIME 09/05/21 Finasteride 5 mg PO DAILY 09/06/21 Amlodipine [Norvasc*] 5 mg PO DAILY #30 tab 09/08/21 New Medications: Folic Acid 1 mg PO DAILY #90 tablet Levetiracetam [Keppra] 500 mg PO BID #60 tablet Amlodipine [Norvasc*] 5 mg PO DAILY #30 tab Clopidogrel Bisulfate [Plavix*] 75 mg PO DAILY #30 tablet Physician Discharge Instructions: Patient presented after syncopal episode. Patient with history of CVA and dementia. Patient had a fall with scalp hematoma. Initial CT scan showed no evidence of stroke. Patient was observed overnight. MRI showed no evidence of acute infarct. Moderate signal within the periventricular, deep and subcortical white matter probably indicates ischemic changes secondary to small vessel disease. No significant change since prior exams noted. Carotid Doppler shows mild plaque within the carotid arteries without significant stenosis. Patient was seen and evaluated by neurology. Neurologist elected patient had seizure. Patient was placed on Keppra. Patient has done well. Patient worked with physical therapy and Occupational Therapy. Patient was evaluated for inpatient rehab. Unfortunately patient was denied by insurance. This was discussed with medical dermatologist as well. At discharge patient doing well with physical therapy and Occupational Therapy. Care discussed in detail with daughter. Daughter understands the decision by insurance. We will proceed with discharge home with home health and physical therapy. Neurology recommends to continue with c urrent medication. No further intervention was required. At discharge patient will continue with aspirin 81 mg daily, Plavix 25 mg daily, folic acid 1 mg daily, Lipitor 40 mg daily, and Keppra 500 mg 1 pill twice daily. Recommend follow-up with neurology in 1 to 2 weeks to follow-up his hospitalization. Fall precautions in place. Patient will continue with seizure precautions. No driving, operating heavy machinery, swimming alone, or getting on any high structures without assistance. Home health and physical therapy will be arranged prior to discharge. Recommend to recheck Keppra level in 1 week to monitor his progress. Recommend follow-up with PCP in 1 week to follow-up his hospitalization. Patient with hypertension. Blood pressure stable. Medication was adjusted during the course of his stay. At discharge patient will continue with Norvasc 5 mg daily and carvedilol 12.5 mg 1 pill twice daily. Recommend to maintain blood pressure less than 130/80. Further adjustment may be required. This can be done with the help of his PCP. Patient with hyperlipidemia. At discharge patient will continue with Lipitor 40 mg daily. Recommend follow-up fasting lipid panel and CMP to monitor his progress within 1 to 2 weeks. Patient with BPH. At discharge patient will continue with finasteride 1 mg daily and Flomax 0.8 mg daily. Patient with dementia. At discharge patient will continue with Namenda 10 mg 1 pill twice daily and Aricept 10 mg daily. Patient also takes Seroquel 50 mg at bedtime. Patient with chronic renal disease stage III. Patient received IV fluids with improvement of renal function. Recommend to recheck labBMP in 1 to 2 weeks to monitor his progress. Diet: AHA Activity: Fall precautions Followup: Colin Barrera MD [ASSOCIATE-ACTIVE - CAN ADMIT] - OOT,OOT [Primary Care Provider] - Time spent managing pt's care (in minutes): 55
[2021-09-08] MEDS: ENOXAPARIN 40 MG/0.4 ML SQ SCH (16:05)
[2021-09-08 16:37] VITALS: BP 132/70; TEMP 97.3
--- OUTSIDE RECORDS SUMMARY | 2021-09-10 15:37 | XMS REPORT | Continuity of Care Document ---
:1955 Author Organization [facility] t Address [address] [place] [address] Care Team Providers Name Role Phone Unavailable Unavailable Unavailable Payers Payer Name Policy Type Policy Number Effective Date Expiration Date S ource Problems This patient has no known problems. Allergies, Adverse Reactions, Alerts Allergy Allergy Status Severity Reaction(s) Onset Inactive Treating Comm ents Source Name Type Date Date Clinician No Known DA Active U [facility] Allergie -11 [facility] 00:00: d 00 [facility] No Known DA Active [facility] Medications This patient has no known medications. Procedures This patient has no known procedures. Encounters Start End Encounter Admission Attending Care Care Encounter Source Date/Time Date/Time Type Type Clinicians Facility Department ID 2020-12-09 Inpatient [facility] [id number] [facility] 07:16:[id number] [facility] 2021-02-28 2021-02-28 Outpatient [facility] [address] [facility] 13:19:00 13:19:00 Results Test Description Test Time Test Comments Results Result Comments Source GLUCOSE BEDSIDE TESTING 2020-12-13 06:38:00 Test Item Value Reference Range Interpretation Comme nts GLUCOSE BEDSIDE TESTING (test code = GLUBED) 93 mg/dL 70-110 N BASIC METABOLIC [id number] 06:24:00 Test Item Value Reference Range Interpretation [...] CA) 8.8 MG/DL 8.5-10.1 N GLUCOSE BEDSIDE [id number] 17:01:00 Test Item Value Reference Range Interpretation Comments GLUCOSE BEDSIDE TESTING (test code 220 mg/dL 70-110 H = GLUBED) GLUCOSE BEDSIDE [id number] 11:37:00 Test Item Value Reference Range Interpretation Comments GLUCOSE BEDSIDE TESTING (test code = 86 mg/dL 70-110 N GLUBED) GLUCOSE BEDSIDE [id number] 08:10:00 Test Item Value Reference Range Interpretation Comments GLUCOSE BEDSIDE TESTING (test code = 86 mg/dL 70-110 N GLUBED) BASIC METABOLIC [id number] 05:12:00 Test Item Value Reference Range Interpretation [...] CA) 8.6 MG/DL 8.5-10.1 N BASIC METABOLIC [id number] 05:07:00 Test Item Value Reference Range Interpretation [...] CA) 8.6 MG/DL 8.5-10.1 N GLUCOSE BEDSIDE [id number] 20:21:00 Test Item Value Reference Range Interpretation Comments GLUCOSE BEDSIDE TESTING (test code 119 mg/dL 70-110 H = GLUBED) - CT HEAD/BRAIN W/O [id number] 18:46:00 [facility] 1955 Sex: M Name: RADHA LEWIS [facility] : 1955 Age/S: 65 / M [id number] Unit #: [id number] Loc: [place] [address] Phys: Michele Thompson [facility] [id number] Dis Date: Status: ADM IN PHONE #:[phone] Exam Date: 12/10/20201842 FAX #: Reason: decrease loc since yesterday EXAMS: CPT: [id number] CT HEAD/BRAIN W/O CONT 69051 EXAM: CT BRAIN WITHOUT CONTRAST INDICATION: decrease [...] [facility] : 1955 Age/S: 65 / M [address] [facility] [address] Unit #: [id number] Loc: [place] [address] Phys: Michele Thompson MD Acct: [id number] Dis Date: Status: ADM IN PHONE #: [phone] ExamDate: 12/10/20201842 FAX #: Reason: decrease loc since yesterday EXAMS: CPT: [id number] CT HEAD/BRAIN W/O CONT 12389 <Continued> CC: Michele Thompson MD; Pj Brooks MD Technologist:Sherlyn White RT(R)(CT);En CTDI: DLP: Trnscb Date/Time: 12/10/2020 (1845) 16 Orig Print D/T: S: 12/10/2020 (1848) PAGE 2 Signed Report- DUP EXTRACRANIAL [id number] 14:30:00 [facility] 1955 Sex: M Name: RADHA LEWIS [place] : 1955 Age/S: 65 / M [address] Unit #: [id number] Loc: [place] [address] Phys: Pj Brooks [facility] [id number] Dis Date: Status: ADM IN PHONE #:[phone] Exam Date: 12/10/2020 1400 FAX #: Reason: ISCHEMIC STROKE EXAMS: CPT: [id number] DUP EX[facility]CRAN[facility] LAINEY [address] Dictation location A1 Carotid Doppler Ultrasound HISTORY: [...] JeriPXC PAGE 1 Signed Report Name:RADHA LEWIS [place] : 1955 Age/S: 65 / M [address] Unit #: [id number] Loc: [place] [address] Phys: Pj Brooks MD Acct: [id number] Dis Date: Status: ADM IN PHONE #: [phone] Exam Date: 12/10/2020 1400 FAX #: Reason: ISCHEMIC STROKE EXAMS: CPT: [id number] [facility] [place]INE[place] [address] <Continued> Orig Print D/T: S: 12/10/2020 (1433) Probe: PAGE 2 Signed ReportGLYCOSYLATED HEMOGLOBIN [id number] 11:30:00 Test Item Value Reference Range Interpretation Comments GLYCOSYLATED HEMOGLOBIN (HA1C) 5.8 % A1C 0.0-5.7 H (test code = GLYHGB) ESTIMATED AVERAGE GLUCOSE (test 120 MG/DLest code = EAG) COMPREHENSIVE METABOLIC [id number] 11:29:00 Test Item Value Reference Range Interpretation [...] L [Autom ated message] LDL/HDL) The system [employer] h generated this result transmit sissy reference range : 1.48-3.22 Avg. The reference range was not used to interpret this result as normal/abnormal . CBC W/AUTO [id number] 11:01:00 Test Item Value Reference Range Interpretation [...] DIFF/SCN CRITERIA = MDIFF) Coronavirus 2018 nCoV [id number] 18:27:00 Test Item Value Reference Range Interpretation Comments Coronavirus 2019 nCoV Negative Negative Per ma nufacturer, Bedside (test code = negativ e results should [id number]) be treated aspresumptive a nd, if inconsistent [...] tent with COVID-19. - MRI BRAIN W/O [id number] 16:59:00 [facility] : 1955 Sex: M FAX: Pj Brooks MD [phone] Camps: PM St: ADM Name: RADHA LEWIS [facility] : 1955 Age/S: 65/M [address] Unit #: [id number] Loc: [place] [address] Phys: Pj Brooks MD Acct: [id number] Dis Date: Status: AD M IN PHONE #: [phone] Exam Date: 12/09/2020 1650 FAX #: Reason: r/o CVA EXAMS: CPT: [id number] MRI BRAIN W/O CONTRAST 75214 EXAM: MRI BRAIN WITHOUT CONTRAST INDICATION: CVA [...] Technologist: Sherlyn White, RT(R)(CT) Transcribed Date/Time/By: 12/09/2020 (1658) :[email or web address] Orig Print D/T: S: 12/09/2020 (0542) PAGE 1 Signed ReportUR PROTEIN [id number] 15:35:00 Test Item Value Reference Range Interpretation Comments UR PROTEIN TOTAL (test code = 19.3 MG/DL 0.0-12.0 H PROTU) UR CREATININE [id number] 15:35:00 Test Item Value Reference Range Interpretation Comments UR CREATININE RANDOM (test code = 97.1 MG/DL 30-125 N CREATU) - US RETRO [id number] 15:10:00 [facility] : 1955 Sex: M Name: RADHA LEWIS [facility] : 1955 Age/S: 65 / M [id number] Unit #: [id number] Loc: [place] [address] Phys: Gamal Rudd MDAcct: [id number] Dis Date: Status: ADM IN PHONE #:[phone] Exam Date: 12/09/2020 1500 FAX #: Reason: evalm of kidney size and echogenicity for ckd EXAMS: CPT: [id number] [email or web address] [address] Location of dictation: B2 ULTRASOUND OF THE [...] MD; Gamal Rudd MD Technologist: Nicole Landin Trnscb Date/Time: 12/09/2020 (1510) JeriPX PAGE 1 Signed Report Name: RADHA LEWIS [facility] : 1955 Age/S: 65 / M [address] Unit #: [id number] Loc: [place] [address] Phys: Gamal Rudd MD Acct: [id number] DisDate: Status: ADM IN PHONE #: [phone] Exam Date: 12/09/2020 1500 FAX #: Reason: evalm of kidney size and ec hogenicity for ckd EXAMS: CPT: [id number] [employer] [address] <Continued> Orig Print D/T: S: 12/09/2020 (1514) Probe: PAGE 2 Signed ReportUA RFLX MICR CULT IF [id number] 08:20:00 Test Item Value Reference Range Interpretation [...] Indication for culture: Dysuria/Frequency- XR SHOULDER 2+V [id number] 08:19:00[facility] : 1955 [facility]: [facility]: [facility] 1955 Age/S: 65 / M [address] Unit #: [id number] Loc: [place] [address] Phys: Mode Duran MDAcct: [id number] Dis Date: Status: REG ER PHONE #:[phone] Exam Date: 12/09/2020 0815 FAX #: Reason: trauma EXAMS: CPT: [id number] XR SHOULDER 2+[place] [address] Fluoro Time: DAP (Gy m2): Air Kerma [...] PAGE 1 Signed Report Name: RADHA LEWIS [place] : 1955 Age/S: 65 / M [address] Unit #: [id number] Loc: [place] [address] Phys: Mode Duran MD Acct: [id number] Dis Date: Status: REG ER PHONE #: [phone] Exam Date: 12/09/2020814 FAX #: Reason: trauma EXAMS: CPT: [id number] XR SHOULDER 2+[place] [address] Fluoro Time: DAP (Gy m2): Air Kerma (mGy): <Con tinued> Technologist: Dominguez Molina, RT(R)(CT) Trnscb Date/Time: 12/09/2020 (818) JeriPXC Orig Print D/T: S: 12/09/2020 (7203) PAGE 2 Signed ReportBASIC METABOLIC [id number] 08:11:00 Test Item Value Reference Range Interpretation [...] 8.6 MG/DL 8.5-10.1 N Completed by Nursing: [id number] 08:11:00 Test Item Value Reference Range Interpretation [...] shade yby method. Completed by Nursing: NOPROTHROMBIN [id number] 07:54:00 Test Item Value Reference Range Interpretation Comments PT PATIENT (test code = PTP) 11.7 SECONDS 9.3-12.9 N INTERNATIONAL NORMAL RATIO 1.04 INR Unit 0.8-1.2 N (test code = INR) THROMBOPLASTIN TIME [id number] 07:54:00 Test Item Value Reference Range Interpretation Comments THROMBOPLASTIN TIME PARTIAL 33.0 SECONDS 26-35 N (test code = PTT) - CT HEAD/BRAIN W/O [id number] 07:48:00 [facility] : 1955 Sex: M Name: RADHA LEWIS [facility] : 1955 Age/S: 65 / M [address] Unit #: [id number] Loc: [place] [address] Phys: Mode Duran [facility] [id number] Dis Date: Status: PRE ER PHONE #:[phone] Exam Date: 12/09/2020 0737 FAX #: Reason: Code Stroke EXAMS: CPT: [id number] CT HEAD/BRAIN W/O CONT 99928 EXAM:- CT HEAD/BRAIN W/O CONT INDICATION: Code [...] [facility] : 1955 Age/S: 65 / M [address] Unit #: [id number] Loc: [place] [address] Phys: Mode Duran MD Acct: [id number] Dis Date: Status: PRE ER PHONE #: [phone] Exam Date: 12/09/2020 0737 FAX #: Reason: Code Stroke EXAMS: CPT: [id number] CT HEAD/BRAIN W/O CONT 75309 <Co ntinued> CC: Mode Duran MD Technologist:Nerissa See, RT(R) CTDI: DLP: Trnscb Date/Time: 12/09/2020 (0748) [email or web address] Orig Print D/T: S: 12/09/2020 (0751) PAGE [...]
== END 2021-09-08 17:00 | disposition home health service (06) | DRG 101 ==
LOC: ER 13:38 → ERHOLD 16:14 → 2ND 18:10
PROVIDERS: ADMIT Hospitalist; ATTEND Family Medicine
DX: R56.9 Unspecified convulsions (principal); N17.9 Acute kidney failure, unspecified; E78.5 Hyperlipidemia, unspecified; J44.9 Chronic obstructive pulmonary disease, unspecified; F17.210 Nicotine dependence, cigarettes, uncomplicated; I25.10 Atherosclerotic heart disease of native coronary artery without angina pectoris; I12.9 Hypertensive chronic kidney disease with stage 1 through stage 4 chronic kidney disease, or unspecified chronic kidney disease; N18.30 Chronic kidney disease, stage 3 unspecified; G89.29 Other chronic pain; M54.9 Dorsalgia, unspecified; N40.0 Benign prostatic hyperplasia without lower urinary tract symptoms; F03.90 Unspecified dementia, unspecified severity, without behavioral disturbance, psychotic disturbance, mood disturbance, and anxiety; R32 Unspecified urinary incontinence; B19.20 Unspecified viral hepatitis C without hepatic coma; S00.03XA Contusion of scalp, initial encounter; W18.30XA Fall on same level, unspecified, initial encounter; Z79.899 Other long term (current) drug therapy; Z79.82 Long term (current) use of aspirin; Z86.73 Personal history of transient ischemic attack (TIA), and cerebral infarction without residual deficits; Z91.81 History of falling; Z60.2 Problems related to living alone; Z20.822 Contact with and (suspected) exposure to COVID-19
CPT/HCPCS: 36415; 70450; 70551; 71045; 72125; 80048; 80053; 80061; 80076; 80177; 81003; 82550; 83735; 83880; 84484; 85025; 85610; 93005; 93306; 93880; 95816; 97110; 97112; 97116; 97161; 99285; J1650; J1953; J2405; U0003

== ENCOUNTER 2022-02-20 12:52 | Emergency (ER) | payer OTHER ==
--- OUTSIDE RECORDS SUMMARY | 2022-02-20 12:55 | XMS REPORT | Continuity of Care Document ---
:1955 Author Organization [facility] t Address [address] [place] [address] Care Team Providers Name Role Phone CARLOS Attending Clinician Unavailable AUGUST KHALIL Attending Clinician Unavailable Ige-Odunuga_J_AH Attending Clinician Unavailable Ige-Odunuga_J_AH Admitting Clinician Unavailable Payers Payer Name Policy Type Policy Number Effective Date Expiration Date S [facility] [place] - [id number] [facility] (MEDICARE REPLACEMENT/ADVANTAGE - HMO) Problems This patient has no known problems. Allergies, Adverse Reactions, Alerts Allergy Allergy Status Severity Reaction(s) Onset Inactive Treating Comm ents Source Name Type Date Date Clinician No Known DA Active U [facility] Allergie 12-09 [facility] 00:00: d 00 [facility] No Known DA Active [facility] Allergie 12-09 [facility] 00:00: d 00 [facility] Medications This patient has no known medications. Procedures This patient has no known procedures. Encounters Start End Encounter Admission Attending Care Care Encounter Source Date/Time Date/Time Type Type Clinicians Facility Department ID 2020-12-09 Inpatient HCAPM WADE [id number] [facility] 07:16:00 [id number] [facility] 2021-12-10 2021-12-10 Emergency E AZNAJAZVA-Carlos Eduardo [facility] [id number] [facility] 17:30:00 22:35:00 MARISELA DELGADILLO 2021-02-28 2021-02-28 Outpatient SIMRAN [facility] [id number] [facility] 13:19:00 23:59:00 NOHEMY 2020-01-14 2020-01-14 Outpatient Ige-Kayleen [facility] [id number] [facility] 12:47:00 12:47:00 _J_AH [id number] Family Practic e 2020-01-14 2020-01-14 [facility] [id number] [facility] 12:47:00 12:47:00 _J_AH [id number] Family Practic e Results Test Description Test Time Test Comments Results Result Comments Source GLUCOSE BEDSIDE TESTING 2020-12-13 06:38:00 Test Item Value Reference Range Interpretation Comme nts GLUCOSE BEDSIDE TESTING (test code = GLUBED) 93 mg/dL 70-110 N BASIC METABOLIC [id number] 06:24:00 Test Item Value Reference Range Interpretation [...] CA) 8.8 MG/DL 8.5-10.1 N GLUCOSE BEDSIDE [id number] 17:01:00 Test Item Value Reference Range Interpretation Comments GLUCOSE BEDSIDE TESTING (test code 220 mg/dL 70-110 H = GLUBED) GLUCOSE BEDSIDE [id number] 11:37:00 Test Item Value Reference Range Interpretation Comments GLUCOSE BEDSIDE TESTING (test code = 86 mg/dL 70-110 N GLUBED) GLUCOSE BEDSIDE [id number] 08:10:00 Test Item Value Reference Range Interpretation Comments GLUCOSE BEDSIDE TESTING (test code = 86 mg/dL 70-110 N GLUBED) BASIC METABOLIC [id number] 05:12:00 Test Item Value Reference Range Interpretation [...] CA) 8.6 MG/DL 8.5-10.1 N BASIC METABOLIC [id number] 05:07:00 Test Item Value Reference Range Interpretation [...] CA) 8.6 MG/DL 8.5-10.1 N GLUCOSE BEDSIDE [id number] 20:21:00 Test Item Value Reference Range Interpretation Comments GLUCOSE BEDSIDE TESTING (test code 119 mg/dL 70-110 H = GLUBED) - CT HEAD/BRAIN W/O [id number] 18:46:00 [facility] 1955 Sex: M Name: RADHA LEWIS [facility] : 1955 Age/S: 65 / M [id number] [place] Unit #: [id number] Loc: [place] [address] Phys: [id number] Dis Date: Status: ADM IN PHONE #:[phone] Exam Date: 12/10/2020 1843 FAX #: Reason: decrease loc since yesterday EXAMS: CPT: [id number] CT HEAD/BRAIN W/O CONT 18381 EXAM: CT BRAIN WITHOUT CONTRAST INDICATION: decrease [...] 1 Signed Report (CONTINUED) Name: RADHA LEWIS [facility] : 1955 Age/S: 65 / M [id number] [place] Unit #: [id number] Loc: [place] [address] Phys: Michele Thompson MD Acct: [id number] Dis Date: Status: ADM IN PHONE #: [phone] ExamDate: 12/10/2020 184 FAX #: Reason: decrease loc since yesterday EXAMS: CPT: [id number] CT HEAD/BRAIN W/O CONT 97978 <Continued> CC: Michele Thompson MD; Pj Brooks MD Technologist:Sherlyn White RT(R)(CT);En CTDI: DLP: Trnscb Date/Time: 12/10/2020 (1845) [email or web address] Orig Print D/T: S: 12/10/2020 (1848) PAGE 2 Signed Report- DUP EXTRACRANIAL [id number] 14:30:00 [facility] 1955 Sex: M Name: RADHA LEWIS [facility] : 1955 Age/S: 65 / M [id number] [place] Unit #: [id number] Loc: [place] [address] Phys: Pj Brooks MDAcct: [id number] Dis Date: Status: ADM IN PHONE #:[phone] Exam Date: 12/10/2020 1400 FAX #: Reason: ISCHEMIC STROKE EXAMS: CPT: [id number] DUP EXTRACRANIAL LAINEY [address] Dictation location A1 Carotid Doppler Ultrasound HISTORY: [...] JeriPXC PAGE 1 Signed Report Name:RADHA LEWIS [facility] : 1955 Age/S: 65 / M [address] [place] Unit #: [id number] Loc: [place] [address] Phys: Pj Brooks MD Acct: [id number] Dis Date: Status: ADM IN PHONE #: [phone] Exam Date: 12/10/2020 1400 FAX #: Reason: ISCHEMIC STROKE EXAMS: CPT: [id number] DUP EXTRACRANIAL [place] [address] <Continued> Orig Print D/T: S: 12/10/2020 (1433) Probe: PAGE 2 Signed ReportGLYCOSYLATED HEMOGLOBIN [id number] 11:30:00 Test Item Value Reference Range Interpretation Comments GLYCOSYLATED HEMOGLOBIN (HA1C) 5.8 % A1C 0.0-5.7 H (test code = GLYHGB) ESTIMATED AVERAGE GLUCOSE (test 120 MG/DLest code = EAG) COMPREHENSIVE METABOLIC [id number] 11:29:00 Test Item Value Reference Range Interpretation [...] L [Autom ated message] LDL/HDL) The system WireOver generated this result transmit sissy reference range : 1.48-3.22 Avg. The reference range was not used to interpret this result as normal/abnormal . CBC W/AUTO [id number] 11:01:00 Test Item Value Reference Range Interpretation [...] code NO DIFF/SCN CRITERIA = MDIFF) Coronavirus 2019 nCoV [id number] 18:27:00 Test Item Value Reference Range Interpretation Comments Coronavirus 2019 nCoV Negative Negative Per ma nufacturer, Bedside (test code = negativ e results should [id number]) be treated aspresumptive a nd, if inconsistent [...] tent with COVID-19. - MRI BRAIN W/O [id number] 16:59:00 [facility] 1955 Sex: M FAX: Pj Brooks MD [phone] Camps: PM St: ADM Name: RADHA LEWIS : 1955 Age/S: 65/M [address] [place] Unit #: [id number] Loc: [place] [address] Phys: Pj Brooks MD Acct: [id number] Dis Date: Status: AD M IN PHONE #: [phone] Exam Date: 12/09/2020 1650 FAX #: Reason: r/o CVA EXAMS: CPT: [id number] MRI BRAIN W/O CONTRAST 00699 EXAM: MRI BRAIN WITHOUT CONTRAST INDICATION: CVA [...] Sherlyn White, RT(R)(CT) Transcribed Date/Time/By: 12/09/2020 (1658) :16 Orig Print D/T: S: 12/09/2020 (1923) PAGE 1 Signed ReportUR PROTEIN [id number] 15:35:00 Test Item Value Reference Range Interpretation Comments UR PROTEIN TOTAL (test code = 19.3 MG/DL 0.0-12.0 H PROTU) UR CREATININE [id number] 15:35:00 Test Item Value Reference Range Interpretation Comments UR CREATININE RANDOM (test code = 97.1 MG/DL 30-125 N CREATU) - US RETRO [id number] 15:10:00 [facility] 1955 Sex: M Name: RADHA LEWIS [facility] : 1955 Age/S: 65 / M [address] [place] Unit #: [id number] Loc: [place] [address] Phys: Gamal [facility]udd [facility] [id number] Dis Date: Status: ADM IN PHONE #:[phone] Exam Date: 12/09/2020 1500 FAX #: Reason: evalm of kidney size and echogenicity for ckd EXAMS: CPT: [id number] RETRO LTD [address] Location of dictation: B2 ULTRASOUND OF THE [...] JeriPX PAGE 1 Signed Report [facility]: [facility] 1955 Age/S: 65 / M [id number] [place] Unit #: [id number] Loc: [place] [address] Phys: Gamal Rudd MD Acct: [id number] DisDate: Status: ADM IN PHONE #: [phone] Exam Date: 12/09/2020 1500 FAX #: Reason: evalm of kidney size and ec hogenicity for ckd EXAMS: CPT: [id number] RETRO LTD [address]487 <Continued> Orig Print D/T: S: 12/09/2020 (2509) Probe: PAGE 2 Signed ReportUA RFLX MICR CULT IF [id number] 08:20:00 Test Item Value Reference Range Interpretation [...] Indication for culture: Dysuria/Frequency- XR SHOULDER 2+V [id number] 08:19:00[facility] : 1955 Sex: M Name: RADHA LEWIS [facility] : 1955 Age/S: 65 / M [address] [place] Unit #: [id number] Loc: [place] [address] Phys: Mode Duran [facility] [id number] Dis Date: Status: REG ER PHONE #:[phone] Exam Date: 12/09/2020 0815 FAX #: Reason: trauma EXAMS: CPT: [id number] XR SHOULDER 2+[place] [address] Fluoro Time: DAP (Gy m2): Air Kerma [...] PAGE 1 Signed Report Name: RADHA LEWIS [facility] : 1955 Age/S: 65 / M [address] [place] Unit #: [id number] Loc: [place] [address] Phys: Mode Duran MD Acct: [id number] Dis Date: Status: REG ER PHONE #: [phone] Exam Date: 12/09/2020 0815 FAX #: Reason: trauma EXAMS: CPT: [id number] XR SHOULDER 2+[place] [address] Fluoro Time: DAP (Gy m2): Air Kerma (mGy): <Con tinued> Technologist: Dominguez Molina, RT(R)(CT) Trnscb Date/Time: 12/09/2020 (818) [email or web address] Orig Print D/T: S: 12/09/2020 (0822) PAGE 2 Signed ReportBASIC METABOLIC [id number] 08:11:00 Test Item Value Reference Range Interpretation [...] 8.6 MG/DL 8.5-10.1 N Completed by Nursing: [id number] 08:11:00 Test Item Value Reference Range Interpretation [...] shade yby method. Completed by Nursing: NOPROTHROMBIN [id number] 07:54:00 Test Item Value Reference Range Interpretation Comments PT PATIENT (test code = PTP) 11.7 SECONDS 9.3-12.9 N INTERNATIONAL NORMAL RATIO 1.04 INR Unit 0.8-1.2 N (test code = INR) THROMBOPLASTIN TIME [id number] 07:54:00 Test Item Value Reference Range Interpretation Comments THROMBOPLASTIN TIME PARTIAL 33.0 SECONDS 26-35 N (test code = PTT) - CT HEAD/BRAIN W/O [id number] 07:48:00 [facility] 1955 Sex: M Name: RADHA LEWIS [facility] : 1955 Age/S: 65 / M [address] [place] Unit #: [id number] Loc: [place] [address] Phys: [facility] [id number] Dis Date: Status: PRE ER PHONE #:[phone] Exam Date: 12/09/2020736 FAX #: Reason: Code Stroke EXAMS: CPT: [id number] CT HEAD/BRAIN W/O CONT 28869 EXAM:- CT HEAD/BRAIN W/O CONT INDICATION: Code [...] 1 Signed Report (CONTINUED) Name: RADHA LEWIS : 1955 Age/S: 65 / M [address] [place] Unit #: [id number] Loc: [place] [address] Phys: Mode Duran [place] Acct: [id number] Dis Date: Status: PRE ER PHONE #: [phone] Exam Date: 12/09/2020736 FAX #: Reason: Code Stroke EXAMS: CPT: [id number] CT HEAD/BRAIN W/O CONT 75242 <Co ntinued> CC: Mode Duran MD Technologist:Nerissa See, RT(R) CTDI: DLP: Trnscb Date/Time: 12/09/2020 (0748) [email or web address] Orig Print D/T: S: 12/09/2020 (0758) PAGE 2 Signed ReportCBC W/O DIFF 2020-12-09 [...]
[2022-02-20 15:39] LABS: Absolute Lymphocytes (CBC) 1.5 K/uL (0.7-4.9); Hematocrit 46.5 % (39.6-49.0); Lymphocytes % 25.3 % (15.3-44.8); RBC Red Blood Cell Count 5.25 M/uL (4.33-5.43)
[2022-02-20 15:40] LABS: Protime INR 1.14
[2022-02-20 15:51] LABS: Albumin 3.7 g/dL (3.4-5.0); Bilirubin Direct 0.2 mg/dL (0-0.2); Bilirubin Total 0.9 mg/dL (0.2-1.0); Magnesium 2.4 mg/dL (1.8-2.4); Potassium 3.7 mmol/L (3.5-5.1); Protein, Total 7.9 g/dL (6.4-8.2); Troponin High Sensitivity 9.3 pg/mL (<58.9)
--- NOTE | 2022-02-20 16:11 | RAD REPORT ---
EXAM DESCRIPTION: RAD - Chest Single View - 02/20/2022 4:01 pm CLINICAL HISTORY: general weakness COMPARISON: Chest Single View dated 09/04/2021; Chest Single View dated 03/23/2021; Chest Single View dated 01/11/2021; Chest Single View dated 03/18/2020 FINDINGS: Lines: None. Lungs: No evidence of edema or pneumonia. Pleural: No significant pleural effusions or pneumothorax. Cardiac: The heart size is within normal limits. Bones: No acute fractures. Other: IMPRESSION: No acute cardiopulmonary disease.
[2022-02-20] MEDS ORDERED: NA CHLORIDE 0.9% 250 ML ONE ×2 (17:03→17:43)
--- NOTE | 2022-02-20 17:05 | RAD REPORT ---
EXAM DESCRIPTION: CT - Head Brain Wo Cont - 02/20/2022 4:56 pm CLINICAL HISTORY: Weight loss, unintended COMPARISON: Ct Stroke Brain Wo Cont dated 01/11/2021; Head Brain Wo Cont dated 01/08/2021 TECHNIQUE: All CT scans are performed using dose optimization technique as appropriate and may inclu de automated exposure control or mA/KV adjustment according to patient size. FINDINGS: No intracranial hemorrhage, hydrocephalus or extra-axial fluid collection.No areas of brai n edema or evidence of midline shift. Moderate chronic small vessel ischemic changes. Remote appearin g right basal ganglia lacunar infarcts. The paranasal sinuses and mastoids are clear. The calvarium is intact. IMPRESSION: No acute intracranial abnormality.
[2022-02-20 18:29] LABS: Urine Blood Negative (Negative); Urine Glucose Negative (Negative); Urine Protein 1+ (Negative); Urine Specific Gravity 1.025 (1.005-1.030)
[2022-02-20] MEDS ORDERED: HYDRALAZINE HCL 20 MG/ML VIAL ONE (18:56)
[2022-02-20 18:57] LABS: Urine Bacteria <20 /HPF (NONE SEEN); Urine RBC NONE SEEN /HPF (NONE SEEN)
[2022-02-20] MEDS ORDERED: carvediloL 6.25 MG TAB ONE (19:06)
[2022-02-20] MEDS ORDERED: AMLODIPINE 10 MG TAB ONE (19:07)
--- NOTE | 2022-02-20 20:35 | ER ---
Nurse's Notes [facility] Name: Channing Marmolejo Age: 67 yrs Sex: Male : 1955 Arrival Date: 02/20/2022 Time: 12:54 Bed 28 Private MD: Arnoldo Real Diagnosis: Weakness-general;Hypertensive heart disease without heart failure Presentation: 02/20 13:02 Chief complaint: EMS states: family reports increased generalized weakness x 2 weeks aa5 ago. Pt reports decreased appetite, denies pain. Onset of symptoms was January 2022. 13:02 Acuity: KANWAL 3 aa5 13:02 Method Of Arrival: EMS: [facility] aa5 13:02 Coronavirus screen: At this time, the client does not indicate any symptoms associated aa5 with coronavirus-19. Ebola Screen: No symptoms or risks identified at this time. Initial Sepsis Screen: Does the patient meet any 2 criteria? No. Patient's initial sepsis screen is negative. Does the patient have a suspected source of infection? No. Patient's initial sepsis screen is negative. Risk Assessment: Do you want to hurt yourself or someone else? Patient reports no desire to harm self or others. Historical: - Allergies: 13:01 No Known Allergies; aa5 - PMHx: 13:01 Carotid artery blockage; COPD; CVA; Hypertension; aa5 - Immunization history:: Adult Immunizations unknown. - Social history:: Smoking status: Patient denies any tobacco usage or history of. Screenin:45 Abuse screen: Denies threats or abuse. Nutritional screening: No deficits noted. jb4 Tuberculosis screening: No symptoms or risk factors identified. Fall Risk None identified. Assessment: 15:30 General: Appears in no apparent distress. comfortable, Behavior is calm, cooperative, jb4 appropriate for age. Pain: Denies pain. Neuro: Level of Consciousness is awake, alert, obeys commands, Oriented to person, place, time, situation. Cardiovascular: Patient's skin is warm and dry. Respiratory: Airway is patent Respiratory effort is even, unlabored. GI: No signs and/or symptoms were reported involving the gastrointestinal system. : No signs and/or symptoms were reported regarding the genitourinary system. EENT: No signs and/or symptoms were reported regarding the EENT system. Derm: Skin is intact, Skin is dry, Skin is normal, Skin temperature is warm. Musculoskeletal: Circulation, motion, and sensation intact. Range of motion:. 16:30 Reassessment: Patient appears in no apparent distress at this time. Patient and/or jb4 family updated on plan of care and expected duration. Pain level reassessed. Patient is alert, oriented x 3, equal unlabored respirations, skin warm/dry/pink. 17:44 Reassessment: Patient appears in no apparent distress at this time. Patient and/or jb4 family updated on plan of care and expected duration. Pain level reassessed. Patient is alert, oriented x 3, equal unlabored respirations, skin warm/dry/pink. Attempted to obtain urine. Pt unable to get undressed in time and urinated on self. Pt cleaned, provider notified. Received verbal order to give second 250ml bolus. 19:00 Reassessment: Patient appears in no apparent distress at this time. Patient and/or jb4 family updated on plan of care and expected duration. Pain level reassessed. Patient is alert, oriented x 3, equal unlabored respirations, skin warm/dry/pink. Pt ambulatory with walker Patient states feeling better. Patient states symptoms have improved. 20:30 Reassessment: Patient appears in no apparent distress at this time. Patient and/or jb4 family updated on plan of care and expected duration. Pain level reassessed. Patient is alert, oriented x 3, equal unlabored respirations, skin warm/dry/pink. Pt's son is at the bedside, provider at the bedside explain POC and diagnoses. 21:05 Reassessment: Patient appears in no apparent distress at this time. Patient and/or jb4 family updated on plan of care and expected duration. Pain level reassessed. Patient is alert, oriented x 3, equal unlabored respirations, skin warm/dry/pink. Vital Signs: 13:02 BP 168 / 84; Pulse 60; Resp 18 S; Temp 97.3(TE); Pulse Ox 100% on R/A; aa5 15:45 BP 177 / 94; Pulse 68; Resp 16; Pulse Ox 100% on R/A; jb4 17:00 BP 159 / 88; Pulse 69; Resp 18; Pulse Ox 100% ; jb4 18:45 BP 203 / 98; Pulse 68; Resp 16; Pulse Ox 100% on R/A; jb4 19:20 BP 144 / 94; Pulse 70; Resp 16; Pulse Ox 100% on R/A; jb4 20:32 BP 168 / 85; Pulse 71; Resp 16; Pulse Ox 100% on R/A; jb4 ED Course: 12:54 Patient arrived in ED. as 12:54 Arnoldo Real DO is Private Physician. as 13:02 Arm band placed on. aa5 13:03 Triage completed. aa5 13:29 Matt Roman PA is PHCP. cp 13:29 Evgeny Torres MD is Attending Physician. cp 15:30 Initial lab(s) drawn, by me, sent to lab. Inserted saline lock: 22 gauge in right jb4 antecubital area, using aseptic technique. Blood collected. 15:45 Patient has correct armband on for positive identification. Bed in low position. Call jb4 light in reach. Side rails up X 1. electronic device monitor on. Pulse ox on. NIBP on. 15:56 Rick Sutton, RN is Primary Nurse. jb4 16:04 XRAY Chest (1 view) In Process Unspecified. EDMS 16:57 Head Brain Wo Cont In Process Unspecified. EDMS 20:34 Arnoldo Real DO is Referral Physician. cp 21:05 No provider procedures requiring assistance completed. IV discontinued, intact, jb4 bleeding controlled, No redness/swelling at site. Pressure dressing applied. Administered Medications: 17:16 Drug: NS 0.9% 250 ml Route: IV; Rate: bolus; Site: left antecubital; jb4 17:39 Follow up: Response: No adverse reaction; IV Status: Completed infusion; IV Intake: jb4 250ml 17:42 Drug: NS 0.9% 250 ml Route: IV; Rate: bolus; Site: left antecubital; jb4 18:30 Follow up: Response: No adverse reaction; IV Status: Completed infusion; IV Intake: jb4 250ml 18:57 Drug: hydrALAZINE 10 mg Route: IVP; Site: left antecubital; jb4 19:30 Follow up: Response: No adverse reaction; Marked relief of symptoms; Blood pressure is jb4 lowered 19:13 Drug: amLODIPine 10 mg Route: PO; jb4 20:30 Follow up: Response: No adverse reaction; Marked relief of symptoms jb4 19:13 Drug: carvedilol 6.25 mg Route: PO; jb4 20:30 Follow up: Response: No adverse reaction; Marked relief of symptoms jb4 Intake: 17:39 IV: 250ml; Total: 250ml. jb4 18:30 IV: 250ml; Total: 500ml. jb4 Outcome: 20:34 Discharge ordered by . cp 21:05 Discharged to home via wheelchair, with family. jb4 21:05 Condition: stable 21:05 Discharge instructions given to patient, family, Instructed on discharge instructions, follow up and referral plans. Demonstrated understanding of instructions, follow-up care. 21:10 Patient left the ED. jb4 Signatures: Dispatcher [employer] EDAriana Chan Audri, RN RN aa5 Matt Roman PA PA Rick Dao RN RN jb4 Corrections: (The following items were deleted from the chart) 19:20 19:00 Reassessment: Patient appears in no apparent distress at this time. Patient jb4 and/or family updated on plan of care and expected duration. Pain level reassessed. Patient is alert, oriented x 3, equal unlabored respirations, skin warm/dry/pink. Pt ambulatory with walker jb4
--- NOTE | 2022-02-20 20:35 | EDPHYS ---
Physician Documentation [facility]ly [facility] Name: Channing Marmolejo Age: 67 yrs Sex: Male : 1955 Arrival Date: 02/20/2022 Time: 12:54 Bed 28 Private MD: Marty Realh ED Physician Evgeny Torres HPI: 02/20 14:08 This 67 yrs old Black Male presents to ER via EMS with complaints of Weakness. cp 14:08 The patient presents to the emergency department with weakness of the entire body, cp generalized weakness, difficulty standing, the patient is generally weak, difficult walking, the patient is generally weak. Onset: The symptoms/episode began/occurred gradually, for past 2-3 weeks. 14:08 Associated signs and symptoms: Pertinent positives: weakness, weight loss, Pertinent cp negatives: altered mental status, fever, headache, syncope, falls at home. 14:08 Severity of symptoms: in the emergency department the symptoms are unchanged despite cp home interventions. Patient's baseline: Neuro: alert and fully oriented, Ambulation: walks with assist only, uses walker, Speech: slow, The patient has a previous history of CVA. Historical: - Allergies: 13:01 No Known Allergies; aa5 - PMHx: 13:01 Carotid artery blockage; COPD; CVA; Hypertension; aa5 - Immunization history:: Adult Immunizations unknown. - Social history:: Smoking status: Patient denies any tobacco usage or history of. ROS: 14:15 Constitutional: Positive for weight loss, Negative for body aches, chills, fever, poor cp PO intake. 14:15 Eyes: Negative for injury, pain, redness, and discharge. cp 14:15 ENT: Negative for drainage from ear(s), ear pain, sore throat, difficulty swallowing, difficulty handling secretions. 14:15 Cardiovascular: Negative for chest pain, edema, palpitations. 14:15 Respiratory: Negative for cough, shortness of breath, wheezing. 14:15 Abdomen/GI: Negative for abdominal pain, nausea, vomiting, and diarrhea, constipation, anorexia, black/tarry stool, rectal bleeding. 14:15 : Negative for urinary symptoms. 14:15 Neuro: Positive for weakness, Negative for altered mental status, dizziness, headache, loss of consciousness, syncope. 14:15 All other systems are negative. Exam: 14:20 Constitutional: The patient appears in no acute distress, alert, awake, cp non-diaphoretic, non-toxic, well developed, well nourished. 14:20 Head/Face: Normocephalic, atraumatic. cp 14:20 Eyes: Periorbital structures: appear normal, Pupils: equal, round, and reactive to light and accomodation, Extraocular movements: intact throughout, Conjunctiva: normal, no exudate, no injection, Sclera: no appreciated abnormality, Lids and lashes: appear normal, bilaterally. 14:20 ENT: External ear(s): are unremarkable, Nose: is normal, Mouth: Lips: moist, Oral mucosa: moist, Posterior pharynx: Airway: no evidence of obstruction, patent, erythema, is not appreciated, exudate, is not appreciated. 14:20 Neck: ROM/movement: is normal, is supple, without pain, no range of motions limitations. 14:20 Chest/axilla: Inspection: normal, Palpation: is normal, no crepitus, no tenderness. 14:20 Cardiovascular: Rate: normal, Rhythm: regular, Edema: is not appreciated, JVD: is not appreciated. 14:20 Respiratory: the patient does not display signs of respiratory distress, Respirations: normal, no use of accessory muscles, no retractions, labored breathing, is not present, Breath sounds: are clear throughout, no decreased breath sounds, no stridor, no wheezing. 14:20 Abdomen/GI: Inspection: abdomen appears normal, Bowel sounds: active, all quadrants, Palpation: abdomen is soft and non-tender, in all quadrants. 14:20 Back: pain, is absent, ROM is normal. 14:20 Neuro: Orientation: to person, place, situation, Mentation: able to follow commands, slow to respond, Motor: moves all fours, strength is normal, Sensation: is normal. 15:40 ECG was reviewed by the Attending Physician. cp Vital Signs: 13:02 BP 168 / 84; Pulse 60; Resp 18 S; Temp 97.3(TE); Pulse Ox 100% on R/A; aa5 15:45 BP 177 / 94; Pulse 68; Resp 16; Pulse Ox 100% on R/A; jb4 17:00 BP 159 / 88; Pulse 69; Resp 18; Pulse Ox 100% ; jb4 18:45 BP 203 / 98; Pulse 68; Resp 16; Pulse Ox 100% on R/A; jb4 19:20 BP 144 / 94; Pulse 70; Resp 16; Pulse Ox 100% on R/A; jb4 20:32 BP 168 / 85; Pulse 71; Resp 16; Pulse Ox 100% on R/A; jb4 MDM: 13:54 Patient medically screened. 20:33 Data reviewed: vital signs, nurses notes, lab test result(s), EKG, radiologic studies, cp CT scan, plain films. 20:33 Test interpretation: by ED physician or midlevel provider: ECG, plain radiologic cp studies. Counseling: I had a detailed discussion with the patient and/or guardian regarding: the historical points, exam findings, and any diagnostic results supporting the discharge/admit diagnosis, the presence of at least one elevated blood pressure reading (>120/80) during this emergency department visit, lab results, radiology results, the need for outpatient follow up, a family practitioner, to return to the emergency department if symptoms worsen or persist or if there are any questions or concerns that arise at home. Response to treatment: the patient's symptoms have markedly improved after treatment, VSS. Patient reports symptoms improved. Patient observed ambulating with use of walker in ED. Will discharge to home for continued monitoring. 02/20 14:05 Order name: Basic Metabolic Panel; Complete Time: 16:44 02/20 16:44 Interpretation: Normal except: CL 110; GLUC 179; BUN 23; CRE 2.04; GFR 39. 02/20 14:05 Order name: CBC with Diff; Complete Time: 16:44 02/20 16:44 Interpretation: Reviewed. 02/20 14:05 Order name: LFT's; Complete Time: 16:44 02/20 16:44 Interpretation: Normal except: AST 8; GLOB 4.2; A/G 0.9. 02/20 14:05 Order name: Magnesium; Complete Time: 16:44 02/20 14:05 Order name: PT-INR; Complete Time: 16:44 02/20 17:19 Interpretation: Reviewed. 02/20 14:05 Order name: Troponin HS; Complete Time: 16:44 02/20 17:20 Interpretation: Reviewed. 02/20 14:05 Order name: XRAY Chest (1 view); Complete Time: 16:44 cp 02/20 14:05 Order name: Urine Microscopic Only; Complete Time: 19:08 cp 02/20 19:08 Interpretation: Reviewed. 02/20 15:48 Order name: CT Head Brain wo Cont cp 02/20 15:51 Order name: Head Brain Wo Cont; Complete Time: 17:19 EDMS 02/20 17:19 Interpretation: Report reviewed. 02/20 18:29 Order name: Urine Dipstick-Ancillary; Complete Time: 18:30 EDMS 02/20 14:05 Order name: EKG; Complete Time: 14:06 cp 02/20 14:05 Order name: Cardiac monitoring; Complete Time: 15:38 cp 02/20 14:05 Order name: EKG - Nurse/Tech; Complete Time: 15:38 02/20 14:05 Order name: IV Saline Lock; Complete Time: 15:26 02/20 14:05 Order name: Labs collected and sent; Complete Time: 15:26 02/20 14:05 Order name: O2 Per Protocol; Complete Time: 15:26 02/20 14:05 Order name: O2 Sat Monitoring; Complete Time: 15:26 cp 02/20 14:05 Order name: Urine Dipstick-Ancillary (obtain specimen); Complete Time: 18:29 cp 02/20 17:20 Order name: Cath; Complete Time: 18:16 02/20 17:21 Order name: Misc. Order: ambulate patient; Complete Time: 19:21 cp EC:40 Rate is 63 beats/min. Rhythm is regular. NC interval is normal. QRS interval is normal. cp QT interval is normal. Interpreted by me. Reviewed by me. Administered Medications: 17:16 Drug: NS 0.9% 250 ml Route: IV; Rate: bolus; Site: left antecubital; jb4 17:39 Follow up: Response: No adverse reaction; IV Status: Completed infusion; IV Intake: jb4 250ml 17:42 Drug: NS 0.9% 250 ml Route: IV; Rate: bolus; Site: left antecubital; jb4 18:30 Follow up: Response: No adverse reaction; IV Status: Completed infusion; IV Intake: jb4 250ml 18:57 Drug: hydrALAZINE 10 mg Route: IVP; Site: left antecubital; jb4 19:30 Follow up: Response: No adverse reaction; Marked relief of symptoms; Blood pressure is jb4 lowered 19:13 Drug: amLODIPine 10 mg Route: PO; jb4 20:30 Follow up: Response: No adverse reaction; Marked relief of symptoms jb4 19:13 Drug: carvedilol 6.25 mg Route: PO; jb4 20:30 Follow up: Response: No adverse reaction; Marked relief of symptoms jb4 Disposition: 02/21 07:07 Co-signature as Attending Physician, Evgeny Torres MD. rn Disposition Summary: 02/20/22 20:34 Discharge Ordered Location: Home cp Problem: new cp Symptoms: have improved cp Condition: Stable cp Diagnosis - Weakness - general cp - Hypertensive heart disease without heart failure cp Followup: cp - With: Arnoldo Real DO - When: 1 - 2 days - Reason: Recheck today's complaints Discharge Instructions: - Discharge Summary Sheet cp - Hypertension, Adult cp - Weakness cp - How to Take Your Blood Pressure cp Forms: - Medication Reconciliation Form cp - Thank You Letter cp - Antibiotic Education cp - Prescription Opioid Use cp Signatures: Dispatcher [employer] Evgeny Palma MD MD rn Calderon, Audri, RN RN aa5 Matt Roman PA PA cp Rick Sutton, RN RN jb4
[2022-02-20 23:24] VITALS: TEMP 97.3; O2SAT 100
[2022-02-20 23:30] VITALS: BP 168/85
--- NOTE | 2022-02-22 13:01 | EKG ---
Test Date: 2022-02-20 Test Time: 15:33:32 Stubber: MARY MEASUREMENT RESULTS: Intervals: Rate: 63 NM: 152 QRSD: 80 QT: 426 QTc: 435 Animas: P: 66 NM: 152 QRS: 38 T: 254 INTERPRETIVE STATEMENTS: Normal sinus rhythm Nonspecific T wave abnormality Abnormal ECG Compared to ECG 09/04/2021 14:42:59 T-wave abnormality now present Electronically Signed On 02-22-22 12:57:48 CDT by Kin Bennett
== END 2022-02-20 21:10 | disposition home or self-care (01) ==
LOC: ER 12:52
DX: I11.9 Hypertensive heart disease without heart failure (principal); J44.9 Chronic obstructive pulmonary disease, unspecified; I10 Essential (primary) hypertension
CPT/HCPCS: 96365; 93005; 85025; 80048; 36415; 83735; 85610; 80076; 84484; 70450; 71045; 96375; 99284; J0360; J7050 ×2; 81003; 81015

== ENCOUNTER 2022-04-01 09:48 | Emergency (ER) | payer OTHER ==
--- OUTSIDE RECORDS SUMMARY | 2022-04-01 09:52 | XMS REPORT | Continuity of Care Document ---
:1955 Author Organization [facility] t Address [address] [place] [address] Care Team Providers Name Role Phone Sushma Real Attending Clinician Unavailable Javier Weinstein Attending Clinician Unavailable [id number] Attending Clinician Unavailable DALY RODGERS Attending Clinician Unavailable AMY Attending Clinician Unavailable CARLOS Attending Clinician Unavailable AUGUST KHALIL Attending Clinician Unavailable Ige-Odunuga_J_AH Attending Clinician Unavailable Javier Weinstein Admitting Clinician Unavailable [id number] Admitting Clinician Unavailable AMY Admitting Clinician Unavailable Ige-Odunbrenda_J_AH Admitting Clinician Unavailable Payers Payer Name Policy Type Policy Number Effective Date Expiration Date Justin PEARSON [id number] [facility] [id number] [facility] (MEDICARE REPLACEMENT/ADVANTAGE - HMO) Problems This patient has no known problems. Allergies, Adverse Reactions, Alerts Allergy Allergy Status Severity Reaction(s) Onset Inactive Treating Comm ents Source Name Type Date Date Clinician No Known DA Active [facility] No Known DA Active [facility] Medications This patient has no known medications. Procedures This patient has no known procedures. Encounters Start End Encounter Admission Attending Care Care Encounter Source Date/Time Date/Time Type Type Clinicians Facility Department ID 2022-03-22 Outpatient Farhan [facility] [id number] Common 13:05:02 [facility] 2022-03-13 Outpatient 3 Js [facility] CVA [id number] [facility] 09:23:09 Javier 0516 2022-03-07 Outpatient 3 Js [facility] CVA [id number] [facility] 10:47:49 Javier 0510 2022-03-06 Outpatient 3 [id number] [facility] REF [id number] [facility] 11:03:26 0509 2020-12-09 Inpatient HCAPM WADE [id number] [facility] 07:16:00 [id number] [facility] 2022-03-06 2022-03-06 [id number] 17:28:00 23:44:00 DIOR 2022-02-23 2022-02-27 Outpatient E AMY [facility] [id number] BL 14:06:00 20:49:00 YONAS 2021-12-10 2021-12-10 [facility] 17:30:00 22:35:00 MARISELA DELGADILLO 2021-02-28 2021-02-28 Outpatient [facility] 750 [id number] [facility] 13:19:00 23:59:00 NOHEMY 2020-01-14 2020-01-14 Outpatient Ige-Odunuga VFP VFP [phone] [facility] 12:47:00 12:47:00 _J_ [id number] Family Practic e 2020-01-14 2020-01-14 Outpatient Ige[place] VFP VFP [phone] [facility] 12:47:00 12:47:00 _J_AH [id number] Family Practic e Results Test Description Test Time Test Comments Results Result Comments Source GLUCOSE BEDSIDE TESTING 2020-12-13 06:38:00 Test Item Value Reference Range Interpretation Comme nts GLUCOSE BEDSIDE TESTING (test code = GLUBED) 93 mg/dL 70-110 N BASIC METABOLIC [id number] 06:24:00 Test Item Value Reference Range Interpretation [...] CA) 8.8 MG/DL 8.5-10.1 N GLUCOSE BEDSIDE [id number] 17:01:00 Test Item Value Reference Range Interpretation Comments GLUCOSE BEDSIDE TESTING (test code 220 mg/dL 70-110 H = GLUBED) GLUCOSE BEDSIDE [id number] 11:37:00 Test Item Value Reference Range Interpretation Comments GLUCOSE BEDSIDE TESTING (test code = 86 mg/dL 70-110 N GLUBED) GLUCOSE BEDSIDE [id number] 08:10:00 Test Item Value Reference Range Interpretation Comments GLUCOSE BEDSIDE TESTING (test code = 86 mg/dL 70-110 N GLUBED) BASIC METABOLIC [id number] 05:12:00 Test Item Value Reference Range Interpretation [...] CA) 8.6 MG/DL 8.5-10.1 N BASIC METABOLIC [id number] 05:07:00 Test Item Value Reference Range Interpretation [...] CA) 8.6 MG/DL 8.5-10.1 N GLUCOSE BEDSIDE [id number] 20:21:00 Test Item Value Reference Range Interpretation Comments GLUCOSE BEDSIDE TESTING (test code 119 mg/dL 70-110 H = GLUBED) - CT HEAD/BRAIN W/O [id number] 18:46:00 [facility] 1955 Sex: M Name: RADHA LEWIS [facility] : 1955 Age/S: 65 / M [id number] [address] Unit #: [id number] Loc: [place] [address] Phys: [id number] Dis Date: Status: ADM IN PHONE #:[phone] Exam Date: 12/10/2020 1843 FAX #: Reason: decrease loc since yesterday EXAMS: CPT: [id number] CT HEAD/BRAIN W/O CONT 98075 EXAM: CT BRAIN WITHOUT CONTRAST INDICATION: decrease [...] Report (CONTINUED) Name: RADHA LEWIS [facility] : 1955 Age/S: 65 / M [id number] [address] Unit #: [id number] Loc: [place] [address] Phys: Michele Thompson MD Acct: [id number] Dis Date: Status: ADM IN PHONE #: [phone] ExamDate: 12/10/20201842 FAX #: Reason: decrease loc since yesterday EXAMS: CPT: [id number] CT HEAD/BRAIN W/O CONT 11170 <Continued> CC: Michele Thompson MD; Pj Brooks MD Technologist:Sherlyn Whiet RT(R)(CT);En CTDI: DLP: Trnscb Date/Time: 12/10/2020 (1846) [email or web address] Orig Print D/T: S: 12/10/2020 (8483) PAGE 2 Signed Report- DUP EXTRACRANIAL [id number] 14:30:00 [facility] : 1955 Sex: M [facility] 1955 Age/S: 65 / M [id number] [address] Unit #: [id number] Loc: [place] [address] Phys: Pj Brooks [facility] [id number] Dis Date: Status: ADM IN PHONE #:[phone] Exam Date: 12/10/2020 1400 FAX #: Reason: ISCHEMIC STROKE EXAMS: CPT: [id number] DUP EXTRACRANIAL [place] [address] Dictation location A1 Carotid Doppler Ultrasound HISTORY: [...] MD Technologist: Nicole Landin Trnscb Date/Time: 12/10/2020 (8081) JeriPXC PAGE 1 Signed Report Name:RADHA LEWIS [facility] [place] : 1955 Age/S: 65 / M [id number] [address] Unit #: [id number] Loc: [place] [address] Phys: Pj Brooks MD Acct: [id number] Dis Date: Status: ADM IN PHONE #: [phone] Exam Date: 12/10/2020 1400 FAX #: Reason: ISCHEMIC STROKE EXAMS: CPT: [id number] DUP EXTRACRANIAL [place] [address] <Continued> Orig Print D/T: S: 12/10/2020 (1433) Probe: PAGE 2 Signed ReportGLYCOSYLATED HEMOGLOBIN [id number] 11:30:00 Test Item Value Reference Range Interpretation Comments GLYCOSYLATED HEMOGLOBIN (HA1C) 5.8 % A1C 0.0-5.7 H (test code = GLYHGB) ESTIMATED AVERAGE GLUCOSE (test 120 MG/DLest code = EAG) COMPREHENSIVE METABOLIC [id number] 11:29:00 Test Item Value Reference Range Interpretation [...] L [Autom ated message] LDL/HDL) The system Pressable h generated this result transmit sissy reference range : 1.48-3.22 Avg. The reference range was not used to interpret this result as normal/abnormal . CBC W/AUTO [id number] 11:01:00 Test Item Value Reference Range Interpretation [...] DIFF/SCN CRITERIA = MDIFF) Coronavirus 2019 nCoV [id number] 18:27:00 Test Item Value Reference Range Interpretation Comments Coronavirus 2019 nCoV Negative Negative Per ma nufacturer, Bedside (test code = negativ e results should [id number]) be treated aspresumptive a nd, if inconsistent [...] tent with COVID-19. - MRI BRAIN W/O [id number] 16:59:00 [facility] 1955 Sex: M FAX: Pj Brooks MD [phone] Camps: PM St: ADM Name: RADHA LEWIS [facility] : 1955 Age/S: 65/M [address] [facility] Unit #: [id number] Loc: [place] [address] Phys: Pj Brooks MD Acct: [id number] Dis Date: Status: AD M IN PHONE #: [phone] Exam Date: 12/09/2020 1650 FAX #: Reason: r/o CVA EXAMS: CPT: [id number] MRI BRAIN W/O CONTRAST 22876 EXAM: MRI BRAIN WITHOUT CONTRAST INDICATION: CVA [...] Technologist: Sherlyn White RT(R)(CT) Transcribed Date/Time/By: 12/09/2020 (1842) :[email or web address] Orig Print D/T: S: 12/09/2020 (0105) PAGE 1 Signed ReportUR PROTEIN [id number] 15:35:00 Test Item Value Reference Range Interpretation Comments UR PROTEIN TOTAL (test code = 19.3 MG/DL 0.0-12.0 H PROTU) UR CREATININE [id number] 15:35:00 Test Item Value Reference Range Interpretation Comments UR CREATININE RANDOM (test code = 97.1 MG/DL 30-125 N CREATU) - RETRO [id number] 15:10:00 [facility] 1955 Sex: M Name: RADHA LEWIS [facility] : 1955 Age/S: 65 / M [address] [address] Unit #: [id number] Loc: [place] [address] Phys: [facility] [id number] Dis Date: Status: ADM IN PHONE #:[phone] Exam Date: 12/09/2020 1500 FAX #: Reason: evalm of kidney size and echogenicity for ckd EXAMS: CPT: [id number] [employer] [address] Location of dictation: B2 ULTRASOUND OF THE [...] MD; Gamal Rudd MD Technologist: Nicole Landin [facility] Date/Time: 12/09/2020 (1510) [facility] PAGE 1 Signed Report Name: RADHA LEWIS [place] : 1955 Age/S: 65 / M [address] [address] Unit #: [id number] Loc: [place] [address] Phys: Gamal Rudd MD Acct: [id number] DisDate: Status: ADM IN PHONE #: [phone] Exam Date: 12/09/2020 1500 FAX #: Reason: evalm of kidney size and ec hogenicity for ckd EXAMS: CPT: [id number] [employer] [address] <Continued> Orig Print D/T: S: 12/09/2020 (1518) Probe: PAGE 2 Signed ReportUA RFLX MICR CULT IF [id number] 08:20:00 Test Item Value Reference Range Interpretation [...] Indication for culture: Dysuria/Frequency- XR SHOULDER 2+V [id number] 08:19:00[facility] : 1955 Sex: M Name: RADHA LEWIS [facility] : 1955 Age/S: 65 / M [id number] [address] Unit #: [id number] Loc: [place] [address] Phys: Mode Duran [facility] [id number] Dis Date: Status: REG ER PHONE #:[phone] Exam Date: 12/09/2020814 FAX #: Reason: trauma EXAMS: CPT: [id number] XR SHOULDER 2+[place] [address] Fluoro Time: DAP (Gy m2): Air Kerma [...] Signed Report Name: RADHA LEWIS [facility] : 1955 Age/S: 65 / M [address] [address] Unit #: [id number] Loc: [place] [address] Phys: Mode Duran MD Acct: [id number] Dis Date: Status: REG ER PHONE #: [phone] Exam Date: 12/09/2020814 FAX #: Reason: trauma EXAMS: CPT: [id number] XR SHOULDER 2+[place] [address] Fluoro Time: DAP (Gy m2): Air Kerma (mGy): <Con tinued> Technologist: Dominguez Molina, RT(R)(CT) Trnscb Date/Time: 12/09/2020 (818) [email or web address] Orig Print D/T: S: 12/09/2020 (821) PAGE 2 Signed ReportBASIC METABOLIC [id number] 08:11:00 Test Item Value Reference Range Interpretation [...] 8.6 MG/DL 8.5-10.1 N Completed by Nursing: [id number] 08:11:00 Test Item Value Reference Range Interpretation [...] may shade yby method. Completed by Nursing: MAYAHROMBIN [id number] 07:54:00 Test Item Value Reference Range Interpretation Comments PT PATIENT (test code = PTP) 11.7 SECONDS 9.3-12.9 N INTERNATIONAL NORMAL RATIO 1.04 INR Unit 0.8-1.2 N (test code = INR) THROMBOPLASTIN TIME [id number] 07:54:00 Test Item Value Reference Range Interpretation Comments THROMBOPLASTIN TIME PARTIAL 33.0 SECONDS 26-35 N (test code = PTT) - CT HEAD/BRAIN W/O [id number] 07:48:00 [facility] 1955 Sex: M Name: RADHA LEWIS [facility] : 1955 Age/S: 65 / M [address] [address] Unit #: [id number] Loc: [place] [address] Phys: Mode Duran [facility] [id number] Dis Date: Status: PRE ER PHONE #:[phone] Exam Date: 12/09/2020 0737 FAX #: Reason: Code Stroke EXAMS: CPT: [id number] CT HEAD/BRAIN W/O CONT 19181 EXAM:- CT HEAD/BRAIN W/O CONT INDICATION: Code [...] Report (CONTINUED) Name: RADHA LEWIS [facility] : 1955 Age/S: 65 / M [id number] [address] Unit #: [id number] Loc: [place] [address] Phys: Mode Duran MD Acct: [id number] Dis Date: Status: PRE ER PHONE #: [phone] Exam Date: 12/09/2020 0737 FAX #: Reason: Code Stroke EXAMS: CPT: [id number] CT HEAD/BRAIN W/O CONT 34128 <Co ntinued> CC: Mode Duran MD Technologist:Nerissa See, RT(R) CTDI: DLP: Trnscb Date/Time: 12/09/2020 (0748) [email or web address] Orig Print D/T: S: 12/09/2020 (0751) PAGE [...]
[2022-04-01] MEDS ORDERED: FENTANYL CITR 100 MCG/2 ML ONE (11:24)
[2022-04-01 11:25] LABS: Absolute Lymphocytes (CBC) 2.7 K/uL (0.7-4.9); Lymphocytes % 29.7 % (15.3-44.8); MPV 10.9 fL (7.6-11.3); RBC Red Blood Cell Count 4.84 M/uL (4.33-5.43)
[2022-04-01 11:48] LABS: Protime INR 1.13
--- NOTE | 2022-04-01 12:35 | RAD REPORT ---
EXAM DESCRIPTION: CT - Head C Spine Cap Wo Con - 04/01/2022 12:07 pm CLINICAL HISTORY: Head and neck injury with chest and abdominal pain status post fall TECHNIQUE: Computed axial tomography of head, neck, chest, abdomen and pelvis obtained. IV and oral contrast not requested. Coronal and sagittal reconstruction performed. All CT scans are performed using dose optimization technique as appropriate and may include automated exposure control or mA/KV adjustment according to patient size. COMPARISON: January 2022 FINDINGS: An intracranial bleed is not seen. Moderate low-density areas within periventricular, deep and subcor tical white matter probably ischemic changes secondary to small vessel disease The ventricles are normal in caliber. An extra-axial fluid collection is not noted. . Fluid within the sinuses/mastoids is not seen. A cervical fracture is not seen. No dislocation is noted. Spondylosis The evaluation of mediastinum, samantha, vessels, solid organs and bowel are limited secondary to the lac k of contrast administration. A mediastinal hematoma is not noted. A pleural effusion is not seen. A lung contusion is not present. The liver,spleen, pancreas, adrenals,kidneys and bladder do not demonstrate a traumatic injury There is minimal left renal parenchymal tissue with multiple large cysts. Right renal cysts are prese nt. No hydronephrosis. Oval structure within the right inguinal canal may represent fluid or testicle. IMPRESSION: No acute intracranial abnormality is seen. A cervical fracture is not visualized. If the patient continues have symptoms to suggest intracrania l/spinal cord pathology MRI be recommended No traumatic abnormality involving the chest/abdomen/pelvis.
--- NOTE | 2022-04-01 13:44 | EDPHYS ---
Physician Documentation [facility] Name: Channing Marmolejo Age: 67 yrs Sex: Male : 1955 Arrival Date: 04/01/2022 Time: 09:51 Bed 18 Private MD: ED Physician Matt Jack HPI: 04/01 10:15 This 67 yrs old Black Male presents to ER via EMS with complaints of Fall. cp 10:15 Details of fall: The patient fell from an upright position, while using walker. cp 10:15 Onset: The symptoms/episode began/occurred this morning, last night. cp 10:15 Associated injuries: The patient sustained upper back injury, contusion, pain, cp swelling, tenderness. Patient reports losing his balance while walking with walker last night when he was backing up. Fell into entertainment center and injured back. Historical: - Allergies: 09:52 No Known Allergies; ww - PMHx: :52 Carotid artery blockage; COPD; CVA; Hypertension; ww - Immunization history:: Adult Immunizations up to date. - Social history:: Smoking status: Patient reports the use of cigarette tobacco products, denies chronic smoking, but will smoke occasionally. ROS: 10:20 Constitutional: Negative for body aches, chills, fever, poor PO intake. cp 10:20 Eyes: Negative for injury, pain, redness, and discharge. cp 10:20 ENT: Negative for drainage from ear(s), ear pain, sore throat, difficulty swallowing, difficulty handling secretions. 10:20 Neck: Negative for pain with movement, pain at rest, stiffness. 10:20 Cardiovascular: Negative for chest pain, edema, palpitations. 10:20 Respiratory: Negative for cough, shortness of breath, wheezing. 10:20 Abdomen/GI: Negative for abdominal pain, nausea, vomiting, and diarrhea. 10:20 Back: Positive for pain at rest, pain with movement. 10:20 Neuro: Negative for altered mental status, headache, loss of consciousness, weakness. 10:20 All other systems are negative. Exam: 10:25 Constitutional: The patient appears in no acute distress, alert, awake, cp non-diaphoretic, non-toxic, well developed, well nourished. 10:25 Head/Face: Normocephalic, atraumatic. cp 10:25 Eyes: Periorbital structures: appear normal, Pupils: equal, round, and reactive to light and accomodation, Extraocular movements: intact throughout, Conjunctiva: normal, no exudate, no injection, Sclera: no appreciated abnormality, Lids and lashes: appear normal, bilaterally. 10:25 ENT: External ear(s): are unremarkable, Nose: is normal, Mouth: Lips: moist, Oral mucosa: pink and intact, moist, Posterior pharynx: Airway: no evidence of obstruction, patent. 10:25 Neck: C-spine: vertebral tenderness, is not appreciated, crepitus, is not appreciated, ROM/movement: pain, is not appreciated, limited range of motion, is not appreciated. 10:25 Chest/axilla: Inspection: normal, Palpation: is normal, no crepitus, no tenderness. 10:25 Cardiovascular: Rate: normal, Rhythm: regular, Edema: is not appreciated, JVD: is not appreciated. 10:25 Respiratory: the patient does not display signs of respiratory distress, Respirations: normal, no use of accessory muscles, no retractions, labored breathing, is not present, Breath sounds: are clear throughout, no decreased breath sounds, no stridor, no wheezing. 10:25 Abdomen/GI: Inspection: abdomen appears normal, Bowel sounds: active, all quadrants, Palpation: abdomen is soft and non-tender, in all quadrants. 10:25 Back: pain, that is mild, of the left subscapular area and left mid back, ROM is painful, with all movement, noted bruising and ecchymosis, mild swelling, tenderness to palpation left mid back area. 10:25 Musculoskeletal/extremity: Exam is negative for decreased range of motion, deformity, injury. 10:25 Neuro: Orientation: to person, place \T\ time. Mentation: able to follow commands, slow to respond, Motor: moves all fours, strength is normal, Sensation: is normal. 12:32 ECG was reviewed by the Attending Physician. cp Vital Signs: 09:51 BP 143 / 98; Pulse 74; Resp 16; Temp 97.7(O); Pulse Ox 100% on R/A; Weight 65.77 kg mb7 (R); Height 5 ft. 11 in. (180.34 cm) (R); 09:51 Pain 3/10; mb7 10:30 BP 140 / 83; Pulse 67; Resp 16; Pulse Ox 100% ; ww 11:30 BP 154 / 73; Pulse 62; Resp 14; Pulse Ox 100% ; ww 12:11 BP 143 / 72; Pulse 63; Resp 14; Pulse Ox 100% on R/A; ww 09:51 Body Mass Index 20.22 (65.77 kg, 180.34 cm) mb7 MDM: 09:54 Patient medically screened. zo 10:30 Differential diagnosis: closed head injury, contusion, fracture, multiple trauma. cp 13:43 Data reviewed: vital signs, nurses notes, lab test result(s), EKG, radiologic studies, cp CT scan. 13:43 Counseling: I had a detailed discussion with the patient and/or guardian regarding: the cp historical points, exam findings, and any diagnostic results supporting the discharge/admit diagnosis, lab results, radiology results, the need for outpatient follow up, a family practitioner, to return to the emergency department if symptoms worsen or persist or if there are any questions or concerns that arise at home. 13:43 ED course: Discussed results of labs and radiology studies that were negative for cp fracture and/or intrathoracic/intraabdominal trauma. Informed daughter that patient does not qualify for inpatient rehab admission and to f/u with pcp to discuss these concerns. 04/01 10:03 Order name: Basic Metabolic Panel; Complete Time: 11:58 cp / 11:58 Interpretation: Normal except: CL 111; CRE 1.73; GFR 42. cp 04/01 10:03 Order name: CBC with Diff; Complete Time: 11:48 cp / 11:48 Interpretation: Reviewed. 04/01 10:03 Order name: PT-INR; Complete Time: 11:58 cp / 12:03 Order name: Head C Spine Cap Wo Con; Complete Time: 12:38 EDMS 04/01 10:03 Order name: EKG; Complete Time: 10:04 cp 04/01 10:03 Order name: Cardiac monitoring; Complete Time: 10:22 cp / 10:03 Order name: EKG - Nurse/Tech; Complete Time: 10:25 cp / 10:03 Order name: IV Saline Lock; Complete Time: 10:25 cp 04/01 10:03 Order name: Labs collected and sent; Complete Time: 10:25 cp 04/01 10:03 Order name: O2 Per Protocol; Complete Time: 10:06 cp 04/01 10:03 Order name: O2 Sat Monitoring; Complete Time: 10: cp 04/01 12:39 Order name: Misc. Order: ambulate with walker; Complete Time: 13:23 cp EC:32 Rate is 69 beats/min. Rhythm is regular. AK interval is normal. QRS interval is normal. cp QT interval is normal. Interpreted by me. Reviewed by me. Administered Medications: 11:23 Drug: fentaNYL (PF) 25 mcg Route: IVP; Site: left wrist; ww Disposition Summary: 04/01/22 13:43 Discharge Ordered Location: Home cp Problem: new cp Symptoms: have improved cp Condition: Stable cp Diagnosis - Contusion of back wall of thorax cp - Fall on same level from slipping, tripping and stumbling with subsequent striking cp against object Followup: cp - With: Private Physician - When: 2 - 3 days - Reason: Recheck today's complaints Discharge Instructions: - Discharge Summary Sheet cp - Contusion cp - Fall Prevention in the Home, Adult cp Forms: - Medication Reconciliation Form cp - Thank You Letter cp - Antibiotic Education cp - Prescription Opioid Use cp Signatures: Dispatcher [employer] EDMS Matt Jack MD MD cha Page, Corey PA PA Salima Abraham, RN RN ww Corrections: (The following items were deleted from the chart) 12:03 10:07 Head C Spine CAP W Con+CT.RAD.BRZ ordered. EDKS EDMS 04/02 11:34 04/01 10:15 Onset: The symptoms/episode began/occurred this morning, cp cp 04/02 11:40 04/01 10:15 Differential diagnosis: closed head injury, contusion, fracture, multiple cp trauma, cp
--- NOTE | 2022-04-01 13:44 | ER ---
Nurse's Notes [facility] Name: Channing Marmolejo Age: 67 yrs Sex: Male : 1955 Arrival Date: 04/01/2022 Time: 09:51 Bed 18 Private MD: Diagnosis: Contusion of back wall of thorax;Fall on same level from slipping, tripping and stumbling with subsequent striking against object Presentation: 04/01 09:51 Chief complaint: Patient states: Tripped and fell last night hitting his [employer] [place] and scratching his back. Patient refused EMS and then son arrived and called EMS for transfer. Patient states he has dull pain in his back 01/05. Coronavirus screen: Vaccine status: Patient reports receiving the 2nd dose of the covid vaccine. Client denies travel out of the [place] in the last 14 days. Ebola Screen: Patient denies travel to an Ebola-affected area in the 21 days before illness onset. Initial Sepsis Screen: Does the patient meet any 2 criteria? No. Patient's initial sepsis screen is negative. Does the patient have a suspected source of infection? No. Patient's initial sepsis screen is negative. Risk Assessment: Do you want to hurt yourself or someone else? Patient reports no desire to harm self or others. Onset of symptoms was April 01, 2022. 09:51 Method Of Arrival: EMS: [facility] 09:51 Acuity: KANWAL 4 ww Triage Assessment: 09:52 General: Appears in no apparent distress. Behavior is cooperative. Pain: Complains of ww pain in back. Neuro: Level of Consciousness is awake, alert, obeys commands, Oriented to person, place, time, situation. Cardiovascular: Patient's skin is warm and dry. Respiratory: Airway is patent Respiratory effort is even, unlabored, Respiratory pattern is regular, symmetrical. GI: No signs and/or symptoms were reported involving the gastrointestinal system. : No signs and/or symptoms were reported regarding the genitourinary system. Historical: - Allergies: 09:52 No Known Allergies; ww - PMHx: :52 Carotid artery blockage; COPD; CVA; Hypertension; ww - Immunization history:: Adult Immunizations up to date. - Social history:: Smoking status: Patient reports the use of cigarette tobacco products, denies chronic smoking, but will smoke occasionally. Assessment: 09:53 Reassessment: Patient appears in no apparent distress at this time. No changes from ww previously documented assessment. Patient and/or family updated on plan of care and expected duration. Pain level reassessed. see triage assessment. 10:35 Reassessment: Patient appears in no apparent distress at this time. No changes from ww previously documented assessment. Patient and/or family updated on plan of care and expected duration. Pain level reassessed. 11:30 Reassessment: Patient appears in no apparent distress at this time. Patient and/or ww family updated on plan of care and expected duration. Pain level reassessed. 12:06 Reassessment: Patient appears in no apparent distress at this time. No changes from ww previously documented assessment. Patient and/or family updated on plan of care and expected duration. Pain level reassessed. family at bedside. Vital Signs: 09:51 BP 143 / 98; Pulse 74; Resp 16; Temp 97.7(O); Pulse Ox 100% on R/A; Weight 65.77 kg mb7 (R); Height 5 ft. 11 in. (180.34 cm) (R); 09:51 Pain 3/10; mb7 10:30 BP 140 / 83; Pulse 67; Resp 16; Pulse Ox 100% ; ww 11:30 BP 154 / 73; Pulse 62; Resp 14; Pulse Ox 100% ; ww 12:11 BP 143 / 72; Pulse 63; Resp 14; Pulse Ox 100% on R/A; ww 09:51 Body Mass Index 20.22 (65.77 kg, 180.34 cm) mb7 ED Course: 09:51 Patient arrived in ED. mb7 09:51 Patient has correct armband on for positive identification. Bed in low position. Call mb7 light in reach. Side rails up X 1. Door closed. Noise minimized. Warm blanket given. 09:52 Triage completed. ww 09:52 Arm band placed on. ww 09:54 Matt Roman PA is PHCP. cp 09:54 Matt Jack MD is Attending Physician. cp 10:25 Inserted saline lock: 22 gauge in right wrist, using aseptic technique. tp1 10:58 Salima Sanchez, RN is Primary Nurse. ww 12:09 Head C Spine Cap Wo Con In Process Unspecified. EDMS 12:32 EKG done, by ED staff, reviewed by Matt MOORE. samantha Administered Medications: 11:23 Drug: fentaNYL (PF) 25 mcg Route: IVP; Site: left wrist; ww Outcome: 13:43 Discharge ordered by . dipti 14:44 Patient left the ED. Signatures: Dispatcher [employer] EDMS Argelia Kaur RN RN ss Page, Corey, PA PA cp Parker, Tiffany tp1 Kecia Watkins mb7 Salima Sanchez RN RN
[2022-04-01 14:53] VITALS: TEMP 97.7; O2SAT 100
[2022-04-01 15:00] VITALS: BP 143/72
--- NOTE | 2022-04-02 12:51 | EKG ---
Test Date: 2022-04-01 Test Time: 12:25:51 Instrument And Controls Technician: MB MEASUREMENT RESULTS: Intervals: Rate: 69 FL: 112 QRSD: 66 QT: 420 QTc: 450 [place]: P: 58 FL: 112 QRS: 34 T: 13 INTERPRETIVE STATEMENTS: Normal sinus rhythm Nonspecific T wave abnormality Abnormal ECG Compared to ECG 02/20/2022 15:33:32 No significant changes Electronically Signed On 04-02-22 12:50:43 CDT by Everton Mehta
== END 2022-04-01 14:44 | disposition home or self-care (01) ==
LOC: ER 09:48
DX: S20.229A Contusion of unspecified back wall of thorax, initial encounter (principal); W01.198A Fall on same level from slipping, tripping and stumbling with subsequent striking against other object, initial encounter; I10 Essential (primary) hypertension; F17.210 Nicotine dependence, cigarettes, uncomplicated; Z86.73 Personal history of transient ischemic attack (TIA), and cerebral infarction without residual deficits
CPT/HCPCS: 93005; 85025; 80048; 36415; 85610; 70450; 71250; 72125; 96374; 99284; J3010

== ENCOUNTER 2022-05-01 10:14 | Emergency (ER) | payer OTHER ==
--- NOTE | 2022-05-01 11:06 | RAD REPORT ---
EXAM DESCRIPTION: CT - Head C Spine Mpr Wo Con - 05/01/2022 10:32 am CLINICAL HISTORY: Head and neck injury status post fall. Head and neck pain COMPARISON: April 01, 2022 TECHNIQUE: Computed axial tomography of the head and cervical spine was obtained. Sagittal and coronal reconstruction was performed. All CT scans are performed using dose optimization technique as appropriate and may include automated exposure control or mA/KV adjustment according to patient size. FINDINGS: An intracranial bleed is not seen. Chronic moderate low-density areas within periventricular, subcortical white matter The ventricles are normal in caliber. An extra-axial fluid collection is not noted.Fluid within the v isualized sinuses and mastoids is not seen A cervical fracture is not visualized. No dislocation is noted. Spondylosis IMPRESSION: No acute intracranial abnormality is seen. A cervical fracture is not visualized. If the patient continues to have symptoms to suggest intracra nial /spinal cord pathology then MRI would be recommended
--- NOTE | 2022-05-01 11:10 | RAD REPORT ---
EXAM DESCRIPTION: RAD - Shoulder Left 2 View - 05/01/2022 10:33 am CLINICAL HISTORY: Left shoulder pain status post fall FINDINGS: No fracture or dislocation is seen. Elevation of the left humeral head may indicate a chronic rotator cuff tear
--- NOTE | 2022-05-01 12:17 | RAD REPORT ---
EXAM DESCRIPTION: RAD - Chest Single View - 05/01/2022 12:08 pm CLINICAL HISTORY: weakness, shortness of breath COMPARISON: February 20 TECHNIQUE: AP portable chest image was obtained 05/01/2022 12:08 pm . FINDINGS: Lung volumes are low accentuating a prominent baseline interstitial pattern. No focal mass or consolidation. The accentuated interstitial pattern could mask edema or infiltrate. No new hilar finding. Heart and vasculature are normal. No measurable pleural effusion and no pneumothorax. No acute bony abnormality seen. No acute aortic findings suspected. IMPRESSION: No focal mass or consolidation. Low lung volume exam accentuates baseline interstitial pattern potentially masking early edema or inf iltrate.
[2022-05-01] MEDS ORDERED: METOPROLOL XL 50 MG TAB PO ONE (12:46)
--- NOTE | 2022-05-01 12:46 | EDPHYS ---
Physician Documentation [facility] Name: Channing Marmolejo Age: 67 yrs Sex: Male : 1955 Arrival Date: 05/01/2022 Time: 10:15 Bed 3 Private MD: ED Physician Doug Armando HPI: 05/01 14:47 This 67 yrs old Black Male presents to ER via EMS with complaints of Fall Injury. kdr 14:48 EMS was called to the patient's home where he was found wedged between the bed and the kdr wall. Is unknown exactly how long the patient had been in this position. He was noted to have abrasions on his left shoulder and hand. Patient himself does not recall the events that led to him being there. Since the patient is taking Plavix, there was concern for possible intracranial hemorrhage secondary to head trauma.. Onset: The symptoms/episode began/occurred suddenly. Severity of symptoms: At their worst the symptoms were mild moderate just prior to arrival, incapacitating. The patient has not experienced similar symptoms in the past. The patient has not recently seen a physician. Historical: - Allergies: 10:21 No Known Allergies; jl7 - Home Meds: 11:14 Aspirin Oral [Active]; atorvastatin Oral [Active]; carvedilol Oral [Active]; vg1 clopidogrel oral [Active]; finasteride Oral [Active]; Folic Acid Oral [Active]; tamsulosin Oral [Active]; budesonide oral [Active]; - PMHx: 10:21 Carotid artery blockage; COPD; CVA; Hypertension; jl7 - Immunization history:: Client reports receiving the 2nd dose of the Covid vaccine. - Social history:: Smoking status: Patient reports the use of cigarette tobacco products, smokes one-half pack cigarettes per day. - Immunization history: Last tetanus immunization: unknown. ROS: 14:48 Constitutional: Negative for fever, chills, and weight loss, Eyes: Negative for injury, kdr pain, redness, and discharge, ENT: Negative for injury, pain, and discharge, Neck: Negative for injury, pain, and swelling, Cardiovascular: Negative for chest pain, palpitations, and edema, Respiratory: Negative for shortness of breath, cough, wheezing, and pleuritic chest pain, Back: Negative for injury and pain, : Negative for injury, bleeding, discharge, and swelling, Skin: Negative for injury, rash, and discoloration, Psych: Negative for depression, anxiety, suicide ideation, homicidal ideation, and hallucinations, Allergy/Immunology: Negative for hives, rash, and allergies, Endocrine: Negative for neck swelling, polydipsia, polyuria, polyphagia, and marked weight changes, Hematologic/Lymphatic: Negative for swollen nodes, abnormal bleeding, and unusual bruising. 14:48 Abdomen/GI: Positive for abdominal pain, Negative for abdominal pain, nausea and vomiting, nausea, vomiting, and diarrhea, nausea, vomiting, diarrhea, constipation. 14:48 Neuro: Positive for loss of consciousness, weakness. Exam: 14:48 Constitutional: This is a well developed, well nourished patient who is awake, alert, kdr and in no acute distress. Head/Face: Normocephalic, atraumatic. Eyes: Pupils equal round and reactive to light, extra-ocular motions intact. Lids and lashes normal. Conjunctiva and sclera are non-icteric and not injected. Cornea within normal limits. Periorbital areas with no swelling, redness, or edema. Neck: Trachea midline, no thyromegaly or masses palpated, and no cervical lymphadenopathy. Supple, full range of motion without nuchal rigidity, or vertebral point tenderness. No Meningismus. Chest/axilla: Normal chest wall appearance and motion. Nontender with no deformity. No lesions are appreciated. Cardiovascular: Regular rate and rhythm with a normal S1 and S2. No gallops, murmurs, or rubs. Normal PMI, no JVD. No pulse deficits. Respiratory: Lungs have equal breath sounds bilaterally, clear to auscultation and percussion. No rales, rhonchi or wheezes noted. No increased work of breathing, no retractions or nasal flaring. Abdomen/GI: Soft, non-tender, with normal bowel sounds. No distension or tympany. No guarding or rebound. No evidence of tenderness throughout. Back: No spinal tenderness. No costovertebral tenderness. Full range of motion. Skin: Warm, dry with normal turgor. Normal color with no rashes, no lesions, and no evidence of cellulitis. MS/ Extremity: Pulses equal, no cyanosis. Neurovascular intact. Full, normal range of motion. Neuro: Awake and alert, GCS 15, oriented to person, place, time, and situation. Cranial nerves II-XII grossly intact. Motor strength 5/5 in all extremities. Sensory grossly intact. Cerebellar exam normal. Normal gait. Psych: Awake, alert, with orientation to person, place and time. Behavior, mood, and affect are within normal limits. Vital Signs: 10:16 BP 135 / 93; Pulse 90; Resp 19; Temp 97.3; Pulse Ox 93% on R/A; Weight 63.5 kg; Height jl7 5 ft. 11 in. (180.34 cm); Pain 0/10; 11:01 BP 167 / 89; Pulse 91; Resp 16; Pulse Ox 100% ; jl7 11:45 BP 183 / 96; Pulse 85; Resp 20; Pulse Ox 100% ; jl7 12:27 BP 182 / 90; Pulse 82; Resp 19; Pulse Ox 99% ; jl7 13:00 BP 166 / 84; Pulse 84; Resp 26; Pulse Ox 100% on R/A; vg1 13:30 BP 130 / 67; Pulse 86; Resp 25; Pulse Ox 100% on R/A; vg1 10:16 Body Mass Index 19.53 (63.50 kg, 180.34 cm) jl7 Karla Coma Score: 10:16 Eye Response: spontaneous(4). Verbal Response: oriented(5). Motor Response: obeys jl7 commands(6). Total: 15. 11:01 Eye Response: spontaneous(4). Verbal Response: oriented(5). Motor Response: obeys jl7 commands(6). Total: 15. 11:45 Eye Response: spontaneous(4). Verbal Response: oriented(5). Motor Response: obeys jl7 commands(6). Total: 15. 12:27 Eye Response: spontaneous(4). Verbal Response: oriented(5). Motor Response: obeys jl7 commands(6). Total: 15. 13:00 Eye Response: spontaneous(4). Verbal Response: oriented(5). Motor Response: obeys vg1 commands(6). Total: 15. 13:30 Eye Response: spontaneous(4). Verbal Response: oriented(5). Motor Response: obeys vg1 commands(6). Total: 15. Trauma Score (Adult): 10:16 Eye Response: spontaneous(1); Verbal Response: oriented(1); Motor Response: obeys jl7 commands(2); Systolic BP: > 89 mm Hg(4); Respiratory Rate: 10 to 29 per min(4); [place] Score: 15; Trauma Score: 12 MDM: 12:45 Patient medically screened. kdr 14:48 Data reviewed: vital signs, nurses notes, lab test result(s), radiologic studies. kdr Counseling: I had a detailed discussion with the patient and/or guardian regarding: the historical points, exam findings, and any diagnostic results supporting the discharge/admit diagnosis, lab results, radiology results, the need for further work-up and treatment in the hospital. 05/01 11:34 Order name: SARS-COV-2 RT PCR (Document "Date of Onset" if Symptomatic) eb 05/01 11:55 Order name: CBC with Diff kdr 05/01 10:26 Order name: CT Head C Spine; Complete Time: 11:28 kdr 05/01 10:26 Order name: Shoulder Left (2 View) XRAY; Complete Time: 11:28 kdr 05/01 11:55 Order name: CMP kdr 05/01 11:55 Order name: PT-INR kdr 05/01 11:56 Order name: CXR XRAY kdr 05/01 12:51 Order name: Labs - recollect needed: recollect the lav and green homlyzed; Complete eb Time: 13:19 Administered Medications: No medications were administered Disposition Summary: 05/01/22 12:45 Transfer Ordered Transfer Location: [facility] kdr Reason: Higher level of care kdr Condition: Fair kdr Problem: new kdr Symptoms: have improved kdr Accepting Physician: Marline(05/01/22 13:45) vg1 Diagnosis - Weakness kdr - Fall from standing kdr Forms: - Medication Reconciliation Form kdr - SBAR form kdr Signatures: Dispatcher [employer] Doug Lopez MD MD kdr Yelitza Sheldon RN RN jl7 Tavia Macario Victoria RN RN vg1 Corrections: (The following items were deleted from the chart) 13:45 12:45 Marline kdr vg1
--- NOTE | 2022-05-01 12:46 | ER ---
Nurse's Notes [facility] Name: Channing Marmolejo Age: 67 yrs Sex: Male : 1955 Arrival Date: 05/01/2022 Time: 10:15 Bed 3 Private MD: Diagnosis: Weakness;Fall from standing Presentation: 05/01 10:16 Chief complaint: EMS states: Toned out by family who reported found pt in between jl7 dresser and the bed, abrasions on left shoulder and hand, unsure if pt hit his head, Pt take Plavix. Pt unable to remember what made him fall. Care prior to arrival: None. Mechanism of Injury: Fall from standing position. Trauma event details: Injury occurred in the [facility], Injury occurred: at home. Injury occurred: May 01, 2022 Injury occurred at: 09:40. 10:16 Acuity: KANWAL 2 jl7 10:16 Method Of Arrival: EMS: [facility] jl7 10:20 Coronavirus screen: At this time, the client does not indicate any symptoms associated jl with coronavirus-19. Ebola Screen: No symptoms or risks identified at this time. Initial Sepsis Screen: Does the patient meet any 2 criteria? No. Patient's initial sepsis screen is negative. Does the patient have a suspected source of infection? No. Patient's initial sepsis screen is negative. Risk Assessment: Do you want to hurt yourself or someone else? Patient reports no desire to harm self or others. Onset of symptoms was May 01, 2022 at 09:40. Trauma Activation: Physician: ED Physician; Name: CHE; Notified At: ; Arrived At: Physician: General Surgeon; Name: ; Notified At: ; Arrived At: Physician: Radiology; Name: ; Notified At: ; Arrived At: Physician: Respiratory; Name: ; Notified At: ; Arrived At: Physician: Lab; Name: ; Notified At: ; Arrived At: Historical: - Allergies: 10:21 No Known Allergies; jl7 - Home Meds: 11:14 Aspirin Oral [Active]; atorvastatin Oral [Active]; carvedilol Oral [Active]; vg1 clopidogrel oral [Active]; finasteride Oral [Active]; Folic Acid Oral [Active]; tamsulosin Oral [Active]; budesonide oral [Active]; - PMHx: 10:21 Carotid artery blockage; COPD; CVA; Hypertension; jl7 - Immunization history:: Client reports receiving the 2nd dose of the Covid vaccine. - Social history:: Smoking status: Patient reports the use of cigarette tobacco products, smokes one-half pack cigarettes per day. - Immunization history: Last tetanus immunization: unknown. Screenin:16 Abuse screen: Denies threats or abuse. Denies injuries from another. Tuberculosis jl7 screening: No symptoms or risk factors identified. 11:01 Nutritional screening: No deficits noted. Fall Risk Secondary diagnosis (15 points) jl7 seizures, dementia, Total Sinclair Fall Scale indicates No Risk (0-24 pts). Primary Survey: 10:16 NO uncontrolled hemorrhage observed. A: The client is alert. Airway: patent. jl7 Breathing/Chest: Respiratory effort: spontaneous, unlabored, Breath sounds: clear, bilaterally. Respiratory pattern: regular, Chest inspection: symmetrical rise and fall of the chest. Circulation: Hemorrhage: No external hemorrhage noted. Pulses: palpable right radial artery and left radial artery. Skin color: pink, Skin temperature: warm, Cardiac rhythm: sinus rhythm Heart tones present. Disability Client is alert. Exposure/Environment: There is no evidence of uncontrolled external bleeding. No obvious injuries are noted at this time. A warming method has been applied: A warm blanket has been provided to the patient. 11:00 Reassessment Breathing: Spontaneous respiratory effort, equal unlabored respirations, jl7 breath sounds clear bilaterally, regular pattern with symmetrical chest rise and fall. Circulation: Heart rhythm Sinus rhythm Disability: Alert. Assessment: 10:15 General: Appears in no apparent distress. uncomfortable, Behavior is calm, cooperative, jl7 appropriate for age. Pain: Denies pain. Neuro: Level of Consciousness is awake, alert, obeys commands, Oriented to person, place, time, situation. Cardiovascular: Patient's skin is warm and dry. Respiratory: Airway is patent Respiratory effort is even, unlabored, Respiratory pattern is regular, symmetrical. Derm: Skin is pink, warm \T\ dry. Injury Description: Abrasion sustained to anterior aspect of left shoulder and left hand. 11:00 Reassessment: Patient appears in no apparent distress at this time. No changes from jl7 previously documented assessment. Patient and/or family updated on plan of care and expected duration. Pain level reassessed. Patient is alert, oriented x 3, equal unlabored respirations, skin warm/dry/pink. 12:00 Reassessment: Patient appears in no apparent distress at this time. No changes from jl7 previously documented assessment. Patient and/or family updated on plan of care and expected duration. Pain level reassessed. Patient is alert, oriented x 3, equal unlabored respirations, skin warm/dry/pink. Pt's daughter reports he didn't take his medications this morning for BP. 12:48 Reassessment: Pt's family reports pt takes half a pill of carvedilol 6.25mg, ERD jl7 notified, see MAR for orders. Vital Signs: 10:16 BP 135 / 93; Pulse 90; Resp 19; Temp 97.3; Pulse Ox 93% on R/A; Weight 63.5 kg; Height jl7 5 ft. 11 in. (180.34 cm); Pain 0/10; 11:01 BP 167 / 89; Pulse 91; Resp 16; Pulse Ox 100% ; jl7 11:45 BP 183 / 96; Pulse 85; Resp 20; Pulse Ox 100% ; jl7 12:27 BP 182 / 90; Pulse 82; Resp 19; Pulse Ox 99% ; jl7 13:00 BP 166 / 84; Pulse 84; Resp 26; Pulse Ox 100% on R/A; vg1 13:30 BP 130 / 67; Pulse 86; Resp 25; Pulse Ox 100% on R/A; vg1 10:16 Body Mass Index 19.53 (63.50 kg, 180.34 cm) jl7 Karla Coma Score: 10:16 Eye Response: spontaneous(4). Verbal Response: oriented(5). Motor Response: obeys jl7 commands(6). Total: 15. 11:01 Eye Response: spontaneous(4). Verbal Response: oriented(5). Motor Response: obeys jl7 commands(6). Total: 15. 11:45 Eye Response: spontaneous(4). Verbal Response: oriented(5). Motor Response: obeys jl7 commands(6). Total: 15. 12:27 Eye Response: spontaneous(4). Verbal Response: oriented(5). Motor Response: obeys jl7 commands(6). Total: 15. 13:00 Eye Response: spontaneous(4). Verbal Response: oriented(5). Motor Response: obeys vg1 commands(6). Total: 15. 13:30 Eye Response: spontaneous(4). Verbal Response: oriented(5). Motor Response: obeys vg1 commands(6). Total: 15. Trauma Score (Adult): 10:16 Eye Response: spontaneous(1); Verbal Response: oriented(1); Motor Response: obeys jl7 commands(2); Systolic BP: > 89 mm Hg(4); Respiratory Rate: 10 to 29 per min(4); Karla Score: 15; Trauma Score: 12 ED Course: 10:15 Patient arrived in ED. jl7 10:15 Client placed on continuous cardiac and pulse oximetry monitoring. NIBP monitoring jl7 applied. 10:15 Warm blanket given. jl7 10:16 Patient has correct armband on for positive identification. Bed in low position. Call jl7 light in reach. Side rails up X2. Seizure precautions initiated. 10:16 Patient maintains SpO2 saturation greater than 95% on room air. Thermoregulation: warm jl7 blanket given to patient. 10:18 Triage completed. jl7 10:21 Arm band placed on right wrist. jl7 10:25 Doug Armando MD is Attending Physician. kdr 10:33 Shoulder Left (2 View) XRAY In Process Unspecified. EDMS 10:33 CT Head C Spine In Process Unspecified. EDMS 11:00 Yelitza Sheldon, USHA is Primary Nurse. jl7 11:34 initiated a transfer with Marisol from the [facility] at the eb request of the patient's family. 11:54 administrative approval given by Marisol Patton/ patient has been accepted to [facility] CVU / Dr. Carlos Eduardo Turk has accepted the patient in transfer/ report to be called to [phone]. 12:10 CXR XRAY In Process Unspecified. EDMS 12:41 Initial lab(s) drawn, by me, sent to lab. Missed attempt(s): 22 gauge in right forearm. vg1 13:08 Missed attempt(s): 20 gauge in right antecubital area. Bleeding controlled, band aid jw7 applied, catheter tip intact. 13:44 No provider procedures requiring assistance completed. Patient transferred, IV remains vg1 in place. Administered Medications: No medications were administered Medication: 13:44 VIS not applicable for this client. vg1 Intake: 13:45 PO: 0ml; IV: 0ml; Tubes: 0ml (); Total: 0ml. vg1 Output: 13:45 Urine: 0ml; Total: 0ml. vg1 Outcome: 12:45 ER care complete, transfer ordered by . kdr 13:45 Transferred by ground EMS to [facility]. vg1 13:45 Condition: good 13:45 Instructed on the need for transfer. 13:45 Patient's length of stay was not longer than 2 hours. vg1 13:45 Patient left the ED. vg1 Signatures: Dispatcher [employer] EDMS Doug Armando MD MD kdr Leal, Jahala RN RN jl7 Tavia Macario Victoria, RN RN vg1 Dedra Hager jw7
[2022-05-01] MEDS ORDERED: carvediloL 6.25 MG TAB ONE (12:49)
[2022-05-01 13:11] LABS: Bilirubin Total 1.4 mg/dL (0.2-1.0); Potassium 3.8 mmol/L (3.5-5.1)
[2022-05-01 13:18] LABS: Hematocrit 41.5 % (39.6-49.0); Lymphocytes % 12.8 % (15.3-44.8); MCV 87.2 fL (80-100); MPV 10.9 fL (7.6-11.3); RBC Red Blood Cell Count 4.75 M/uL (4.33-5.43)
[2022-05-01 13:33] LABS: Protime INR 1.2
[2022-05-01 13:54] VITALS: TEMP 97.3
[2022-05-01 14:00] VITALS: O2SAT 100
[2022-05-01 14:02] VITALS: BP 130/67
== END 2022-05-01 13:45 | disposition short-term general hospital (02) ==
LOC: ER 10:14
DX: R53.1 Weakness (principal); W18.39XA Other fall on same level, initial encounter; Y93.89 Activity, other specified; S40.212A Abrasion of left shoulder, initial encounter; S60.512A Abrasion of left hand, initial encounter; Y92.009 Unspecified place in unspecified non-institutional (private) residence as the place of occurrence of the external cause; J44.9 Chronic obstructive pulmonary disease, unspecified; I10 Essential (primary) hypertension; I63.9 Cerebral infarction, unspecified
CPT/HCPCS: 85025; 36415; 85610; 80053; 70450; 72125; 71045; 73030; U0003; 99285

== ENCOUNTER 2022-10-11 16:55 | Observation (INO) | payer OTHER ==
--- OUTSIDE RECORDS SUMMARY | 2022-10-11 17:11 | XMS REPORT | Continuity of Care Document ---
:1955 Author Organization [facility] t Address [address] [place] [address] Care Team Providers Name Role Phone Unknown, Physician Primary Care Physician Unavailable Barrie Real Attending Clinician Unavailable Javier Weinstein Rahil Attending Clinician Unavailable [id number] Attending Clinician Unavailable JAVIER WEINSTEIN Attending Clinician Unavailable Shashi Lee MD Attending Clinician LEWIS MCCARTY Attending Clinician Unavailable JAZZ ALAMO Attending Clinician Unavailable Verónica RN, Darling Attending Clinician Unavailable Lewis Mccarty MD Attending Clinician DIOR RODGERS Attending Clinician Unavailable YONAS REYES Attending Clinician Unavailable MARISELA GONZALEZ Attending Clinician Unavailable NOHEMY KHALIL Attending Clinician Unavailable Ige-[place]_J_AH Attending Clinician Unavailable Javier Weinstein Rahil Admitting Clinician Unavailable [id number] Admitting Clinician Unavailable BARRIE REAL Admitting Clinician Unavailable JAZZ ALAMO Admitting Clinician Unavailable AMY YONAS Admitting Clinician Unavailable I[place]_J_AH Admitting Clinician Unavailable Payers Payer Name Policy Type Policy Number Effective Date Expiration Date S mendez HUMANA [id number] 2022 00:00:00 HUMM HUMM [id number] [employer] MEDICARE 53 [id number] 2022 Common Sp nimco 00:00:00 - [facility] HUMANA MEDICARE 53 [id number] 2020 Common Sp nimco 00:00:00 - [facility] [id number] [facility] [place] [id number] - [employer] (MEDICARE REPLACEMENT/ADV ANTAGE - HMO) Problems Condition Condition Condition Status Onset Resolution Last Treating Co mments Source Name Details Category Date Date Treatment Clinician Date Hemiplegia Hemiparesi Problem C ommon of s of right Spirit dominant dominant - [facility] side as side as St late late 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 disease, Medical stage 3 [place] [id number] Tobacco Problem Commo n abuse Spirit counseling - [facility] Chronic Chronic Problem Common obstructiv obstructiv Sp nimco e e - [facility]I pulmonary [facility] d [place] [id number] Hyperlipid Problem Com mon emia, Spirit unspecifie - CHI d hyperlipid [facility] emia type Medical [place] [id number] MCFP Problem Com mon (current) Spirit use [facility] platelets Medical [place] [id number] Cerebrovas Problem Co mmon cular Spirit accident - [facility] (CVA) of [facility] right [facility] [id number] NPH Problem Common (normal Spirit pressure - [facility] hydrocepha [facility]) [facility] Chronic Other Problem Common pain chronic Spirit pain - [facility] [id number] Dysuria Problem Common Spirit [facility] Eruption Groin rash Problem Com mon of skin Spirit [facility] [id number] Bloody Problem Common drainage Spirit from penis - [facility]I [facility] [id number] Urinary Problem Common hesitancy [facility] [id number] Hematuria, Problem Com mon unspecifie Spirit d type - [facility] [id number] Urinary Problem Commo n incontinen Spirit ce, - [facility] unspecifie [facility] Chronic Hypertensi Problem Comm on kidney ve CKD Spirit disease (chronic - CHI due to kidney St hypertensi disease) [facility] [id number] Agitation Problem Com mon Spirit - [facility] [id number] Ataxic Problem Common gait [facility] [id number] Depression Problem Co mmon with Spirit anxiety - CHI [facility] [id number] Vascular Problem Com mon [id number] dementia Spirit without - CHI behavioral [facility] [id number] H/O: CVA Problem Comm on (cerebrova Spirit scular - CHI accident) [facility] [id number] Encounter Problem Com mon for Spirit therapeuti - [facility]I c drug [facility] monitoring Medica l Center [id number] Essential Problem Comm on hypertensi Spirit on - [facility]I [facility] [id number] NIKITA Problem Common (generaliz Spirit ed anxiety - CHI disorder) [facility] [id number] 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 - [facility]I , single [facility] [id number] BPH loc w Problem Com mon urin Spirit obs/LUTS - [facility] Allergies, Adverse Reactions, Alerts Allergy Allergy Status Severity Reaction(s) Onset Inactive Treating Comm ents Source Name Type Date Date Clinician NKA Allergy Active ENCCLR 05-22 12:30: 40 NKA Allergy Active ENCCLR 05-22 12:30: 40 NKA Allergy Active ENCCLR 05-22 12:30: 40 No Known DA Active [facility] [place] [facility] 00:[facility]: d 00 [facility] No Known DA Active [facility] 2- [facility]: d [facility] Social History Social Habit Start Date Stop Date Quantity Comments Source History of Tobacco Current Smoker Co mmon Spirit - Use [facility] Sex Assigned At Common Sp nimco - [facility] Exposure to 2022-05-26 2022-06-05 Not sure [facility] SARS-CoV-2 (event) 00:00:00 13:46:00 Smoking Status Start Date Stop Date Source Ex-smoker [facility] Current Smoker 2022-07-05 00:00:00 [facility] Spiri t [facility] Medications Ordered Filled Start Stop Current Ordering Indication Dosage Frequency Signature Comments Components Source Medication Medication Date Date Medication? Clinician (SIG) Name Name navin-l 2022- No [id number] 1{tbl} [id number] Take 1 UT evodopa 06-05 [id number] tablet by Health (Sinemet) 00:00: 04:59 3D mouth in 25-100 MG 00 :00 the tablet morning and 1 tablet at noon and 1 tablet in the evening. levETIRAcet Yes [id number] 500mg Q.5D Take 1 UT am (Keppra) 7-09 tablet Health 500 MG 00:00: (500 mg tablet 00 total) by mouth in the morning and 1 tablet (500 mg total) in the evening. memantine Yes [id number] 10mg Q.5D Take 1 UT (Namenda) 7-09 tablet (10 Heal th 10 MG 00:00: mg total) tablet 00 by mouth in the morning and 1 tablet (10 mg total) in the evening. levETIRAcet Yes [id number] 500mg Q.5D Take 1 UT am (Keppra) 7-09 tablet Health 500 MG 00:00: (500 mg tablet 00 total) by mouth in the morning and 1 tablet (500 mg total) in the evening. memantine Yes [id number] 10mg Q.5D Take 1 UT (Namenda) 7-09 tablet (10 Heal th 10 MG 00:00: mg total) tablet 00 by mouth in the morning and 1 tablet (10 mg total) in the evening. levETIRAcet 2021-0 Yes [id number] 500mg Q.5D Take 1 UT am (Keppra) 7-09 tablet Health 500 MG 00:00: (500 mg tablet 00 total) by mouth in the morning and 1 tablet (500 mg total) in the evening. memantine 2021-0 Yes [id number] 10mg Q.5D Take 1 UT (Namenda) 7-09 tablet (10 Heal th 10 MG 00:00: mg total) tablet 00 by mouth in the morning and 1 tablet (10 mg total) in the evening. levETIRAcet 2021-0 Yes UT am (Keppra) 6-10 Health 500 MG 00:00: tablet 00 levETIRAcet 2021-0 Yes UT am (Keppra) 6-10 Health 500 MG 00:00: tablet 00 levETIRAcet 2021-0 2- No UT am (Keppra) 6-10 07-09 Health 500 MG 00:00: 00:00 tablet 00 :00 carvedilol 2021-0 Yes UT (Coreg) 4-13 Health 3.125 MG 00:00: tablet 00 clopidogrel 2021-0 Yes UT (Plavix) 75 4-13 Health MG tablet 00:00: 00 carvedilol 2021-0 Yes UT (Coreg) 4-13 Health 3.125 MG 00:00: tablet 00 clopidogrel 2021-0 Yes UT (Plavix) 75 4-13 Health MG tablet 00:00: 00 carvedilol 2021-0 Yes UT (Coreg) 4-13 Health 3.125 MG 00:00: tablet 00 clopidogrel 2021-0 Yes UT (Plavix) 75 4-13 Health MG tablet 00:00: 00 carvedilol 2-0 Yes UT (Coreg) 4-13 Health 3.125 MG 00:00: tablet 00 clopidogrel 2021-0 Yes UT (Plavix) 75 4-13 Health MG tablet 00:00: 00 carvedilol 2-0 Yes UT (Coreg) 4-13 Health 3.125 MG 00:00: tablet 00 clopidogrel 2-0 Yes UT (Plavix) 75 4-13 Health MG tablet 00:00: 00 atorvastati 2021-0 Yes UT n (Lipitor) 3-16 Health 40 MG 00:00: tablet 00 atorvastati 2021-0 Yes UT n (Lipitor) 3-16 Health 40 MG 00:00: tablet 00 atorvastati 2021-0 Yes UT n (Lipitor) 3-16 Health 40 MG 00:00: tablet 00 atorvastati 2021-0 Yes UT n (Lipitor) 3-16 Health 40 MG 00:00: tablet 00 atorvastati 2021-0 Yes UT n (Lipitor) 3-16 Health 40 MG 00:00: tablet 00 amLODIPine 2021-0 Yes UT (Norvasc) 3-02 Health 2.5 MG 00:00: tablet 00 amLODIPine 2021-0 Yes UT (Norvasc) 3-02 Health 2.5 MG 00:00: tablet 00 amLODIPine 2021-0 Yes UT (Norvasc) 3-02 Health 2.5 MG 00:00: tablet 00 amLODIPine 2021-0 Yes UT (Norvasc) 3-02 Health 2.5 MG 00:00: tablet 00 amLODIPine 2021-0 Yes UT (Norvasc) 3-02 Health 2.5 MG 00:00: tablet 00 tamsulosin 2021-0 Yes UT (Flomax) 2-10 Health 0.4 MG 24 00:00: hr capsule 00 tamsulosin 2021-0 Yes UT (Flomax) 2-10 Health 0.4 MG 24 00:00: hr capsule 00 tamsulosin 2021-0 Yes UT (Flomax) 2-10 Health 0.4 MG 24 00:00: hr capsule 00 tamsulosin 2-0 Yes UT (Flomax) 2-10 Health 0.4 MG 24 00:00: hr capsule 00 tamsulosin 2-0 Yes UT (Flomax) 2-10 Health 0.4 MG 24 00:00: hr capsule 00 memantine 2021-0 Yes UT (Namenda) 1-26 Health 10 MG 00:00: tablet 00 memantine 2021-0 Yes UT (Namenda) 1-26 Health 10 MG 00:00: tablet 00 memantine 2021-0 2- No UT (Namenda) 1- 07-09 Health 10 MG 00:00: 00:00 tablet 00 :00 carvedilol 2020-1 Yes UT (Coreg) 1-22 Health 12.5 MG 00:00: tablet 00 carvedilol 2020-10 Yes UT (Coreg) 1-22 Health 12.5 MG 00:00: tablet 00 carvedilol 2020-10 Yes UT (Coreg) 1-22 Health 12.5 MG 00:00: tablet 00 carvedilol 2020-10 Yes UT (Coreg) 1-22 Health 12.5 MG 00:00: tablet 00 carvedilol 2020-10 Yes UT (Coreg) 1-22 Health 12.5 MG 00:00: tablet 00 sulfamethox 2020-10 Yes UT azole-trime 10-29 Health thoprim 00:00: (Bactrim 00 DS) 800-160 MG tablet sulfamethox 2020-10 Yes UT azole-trime 10-29 Health thoprim 00:00: (Bactrim 00 DS) 800-160 MG tablet sulfamethox 2020-10 Yes UT azole-trime 10-29 [facility] thoprim 00:00: (Bactrim 00 DS) 800-160 MG tablet sulfamethox 1 Yes UT azole-trime 10-29 Health thoprim 00:00: (Bactrim 00 DS) 800-160 MG tablet sulfamethox 1 Yes UT azole-trime 10-29 Health thoprim 00:00: (Bactrim 00 DS) 800-160 MG tablet donepezil 1-0 Yes UT (Aricept) 5 9-08 Health MG tablet 00:00: 00 donepezil 2021-0 Yes UT (Aricept) 5 9-08 Health MG tablet 00:00: 00 donepezil 2021-0 Yes UT (Aricept) 5 9-08 Health MG tablet 00:00: 00 donepezil 2021-0 Yes UT (Aricept) 5 9-08 Health MG tablet 00:00: 00 donepezil 1-0 Yes UT (Aricept) 5 9-08 Health MG tablet 00:00: 00 lisinopril 1-0 Yes UT 5 MG tablet 8-30 Health 00:00: 00 lisinopril 1-0 Yes UT 5 MG tablet 8-30 Health 00:00: 00 lisinopril 1-0 Yes UT 5 MG tablet 8-30 Health 00:00: 00 lisinopril 2021-0 Yes UT 5 MG tablet 830 Health 00:00: 00 lisinopril 0 Yes UT 5 MG tablet 830 Health 00:00: 00 aspirin 0 Yes 81mg 81 mg. UT (ASPIR) 81 3-29 Health MG EC 00:00: tablet 00 budesonide 0 Yes UT (Pulmicort) 3-29 Health 0.5 MG/2ML 00:00: nebulizer 00 solution aspirin 0 Yes 81mg 81 mg. UT (ASPIR) 81 3-29 Health MG EC 00:00: tablet 00 budesonide 0 Yes UT (Pulmicort) 3-29 Health 0.5 MG/2ML 00:00: nebulizer 00 solution aspirin 0 Yes 81mg 81 mg. UT (ASPIR) 81 3-29 Health MG EC 00:00: tablet 00 budesonide 0 Yes UT (Pulmicort) 3-29 Health 0.5 MG/2ML 00:00: nebulizer 00 solution aspirin 0 Yes 81mg 81 mg. UT (ASPIR) 81 3-29 Health MG EC 00:00: tablet 00 budesonide 0 Yes UT (Pulmicort) 3-29 Health 0.5 MG/2ML 00:00: nebulizer 00 solution aspirin 0 Yes 81mg 81 mg. UT (ASPIR) 81 3-29 Health MG EC 00:00: tablet 00 budesonide 0 Yes UT (Pulmicort) 3-29 Health 0.5 MG/2ML 00:00: nebulizer 00 solution Ketoconazol Ketoconazol No QD Ketoconazo e 2 % e 2 % le 2 % levETIRAcet levETIRAcet No 1{table QD levETIRAce am 500 MG am 500 MG t} summers 500 MG Coreg 12.5 Coreg 12.5 No BID Coreg 12.5 MG MG MG amLODIPine amLODIPine No 1{table QD amLODIPine Besylate Besylate t} Besylate 2.5 MG 2.5 MG 2.5 MG Folic Acid Folic Acid No 1{table QD Folic Acid 1 MG 1 MG t} 1 MG Memantine Memantine No 1{table BID Memantine HCl 10 MG HCl 10 MG t} HCl 10 MG Proscar 5 Proscar 5 No 1{table QD Proscar 5 MG MG t} MG Flomax 0.4 Flomax 0.4 No 1{capsu Flomax 0.4 MG MG le} MG Flomax 0.4 Flomax 0.4 No 2{capsu QD Flomax 0.4 MG MG les} MG Albuterol Albuterol No 3{ml_as QID Albuterol Sulfate Sulfate _needed Sulfate (2.5 (2.5 } (2.5 MG/3ML) MG/3ML) MG/3ML) 0.083% 0.083% 0.083% buPROPion buPROPion No 1{table QD buPROPion HCl ER (XL) HCl ER (XL) t_in_th HCl ER 150 MG 150 MG e_morni (XL) 150 ng} MG Clopidogrel Clopidogrel No Clopidogre Bisulfate Bisulfate l 75 MG 75 MG Bisulfate 75 MG SEROquel 50 SEROquel 50 No 1{table QD SEROquel MG MG t_at_be 50 MG dtime} Atorvastati Atorvastati No 1{table QD Atorvastat n Calcium n Calcium t} in Calcium 40 MG 40 MG 40 MG Albuterol Albuterol No Albuterol Sulfate HFA Sulfate HFA Sulfate 108 (90 108 (90 HFA 108 Base) Base) (90 Base) MCG/ACT MCG/ACT MCG/ACT Budesonide- Budesonide- No 2{puffs BID Budesonide Formoterol Formoterol } -Formotero Fumarate Fumarate l Fumarate 160-4.5 160-4.5 160-4.5 MCG/ACT MCG/ACT MCG/ACT Atorvastati Atorvastati No Atorvastat n Calcium n Calcium in Calcium 40 MG 40 MG 40 MG Folic Acid Folic Acid No 1{table QD Folic Acid 1 MG 1 MG t} 1 MG Aspirin 81 Aspirin 81 No 1{table QD Aspirin 81 81 MG 81 MG t} 81 MG amLODIPine amLODIPine No amLODIPine Besylate 5 Besylate 5 Besylate 5 MG MG MG Donepezil Donepezil No 1{table QD Donepezil HCl 10 MG HCl 10 MG t_at_be HCl 10 MG dtime} Ketoconazol Ketoconazol No QD Ketoconazo e 2 % e 2 % le 2 % levETIRAcet levETIRAcet No 1{table QD levETIRAce am 500 MG am 500 MG t} summers 500 MG Coreg 12.5 Coreg 12.5 No BID Coreg 12.5 MG MG MG amLODIPine amLODIPine No 1{table QD amLODIPine Besylate Besylate t} Besylate 2.5 MG 2.5 MG 2.5 MG Folic Acid Folic Acid No 1{table QD Folic Acid 1 MG 1 MG t} 1 MG Memantine Memantine No 1{table BID Memantine HCl 10 MG HCl 10 MG t} HCl 10 MG Donepezil Donepezil No 1{table QD Donepezil HCl 10 MG HCl 10 MG t_at_be HCl 10 MG dtime} Coreg 12.5 Coreg 12.5 No BID Coreg 12.5 MG MG MG Folic Acid Folic Acid No Folic Acid 1 MG 1 MG 1 MG Flomax 0.4 Flomax 0.4 No 1{capsu Flomax 0.4 MG MG le} MG Clopidogrel Clopidogrel No Clopidogre Bisulfate Bisulfate l 75 MG 75 MG Bisulfate 75 MG Ketoconazol Ketoconazol No QD Ketoconazo e 2 % e 2 % le 2 % levETIRAcet levETIRAcet No levETIRAce am 500 MG am 500 MG summers 500 MG Albuterol Albuterol No Albuterol Sulfate HFA Sulfate HFA Sulfate 108 (90 108 (90 HFA 108 Base) Base) (90 Base) MCG/ACT MCG/ACT MCG/ACT Aspirin 81 Aspirin 81 No 1{table QD Aspirin 81 81 MG 81 MG t} 81 MG Budesonide- Budesonide- No 2{puffs BID Budesonide Formoterol Formoterol } -Formotero Fumarate Fumarate l Fumarate 160-4.5 160-4.5 160-4.5 MCG/ACT MCG/ACT MCG/ACT buPROPion buPROPion No 1{table QD buPROPion HCl ER (XL) HCl ER (XL) t_in_th HCl ER 150 MG 150 MG e_morni (XL) 150 ng} MG Proscar 5 Proscar 5 No 1{table QD Proscar 5 MG MG t} MG Albuterol Albuterol No 3{ml_as QID Albuterol Sulfate Sulfate _needed Sulfate (2.5 (2.5 } (2.5 MG/3ML) MG/3ML) MG/3ML) 0.083% 0.083% 0.083% Flomax 0.4 Flomax 0.4 No 2{capsu QD Flomax 0.4 MG MG les} MG Memantine Memantine No 1{table BID Memantine HCl 10 MG HCl 10 MG t} HCl 10 MG Atorvastati Atorvastati No Atorvastat n Calcium n Calcium in Calcium 40 MG 40 MG 40 MG amLODIPine amLODIPine No 1{table QD amLODIPine Besylate Besylate t} Besylate 2.5 MG 2.5 MG 2.5 MG amLODIPine amLODIPine No amLODIPine Besylate 5 Besylate 5 Besylate 5 MG MG MG SEROquel 50 SEROquel 50 No 1{table QD SEROquel MG MG t_at_be 50 MG dtime} Donepezil Donepezil No 1{table QD Donepezil HCl 10 MG HCl 10 MG t_at_be HCl 10 MG dtime} Coreg 12.5 Coreg 12.5 No BID Coreg 12.5 MG MG MG Folic Acid Folic Acid No Folic Acid 1 MG 1 MG 1 MG Flomax 0.4 Flomax 0.4 No 1{capsu Flomax 0.4 MG MG le} MG Clopidogrel Clopidogrel No Clopidogre Bisulfate Bisulfate l 75 MG 75 MG Bisulfate 75 MG Ketoconazol Ketoconazol No QD Ketoconazo e 2 % e 2 % le 2 % levETIRAcet levETIRAcet No levETIRAce am 500 MG am 500 MG summers 500 MG Albuterol Albuterol No Albuterol Sulfate HFA Sulfate HFA Sulfate 108 (90 108 (90 HFA 108 Base) Base) (90 Base) MCG/ACT MCG/ACT MCG/ACT Aspirin 81 Aspirin 81 No 1{table QD Aspirin 81 81 MG 81 MG t} 81 MG Budesonide- Budesonide- No 2{puffs BID Budesonide Formoterol Formoterol } -Formotero Fumarate Fumarate l Fumarate 160-4.5 160-4.5 160-4.5 MCG/ACT MCG/ACT MCG/ACT buPROPion buPROPion No 1{table QD buPROPion HCl ER (XL) HCl ER (XL) t_in_th HCl ER 150 MG 150 MG e_morni (XL) 150 ng} MG Proscar 5 Proscar 5 No 1{table QD Proscar 5 MG MG t} MG Albuterol Albuterol No 3{ml_as QID Albuterol Sulfate Sulfate _needed Sulfate (2.5 (2.5 } (2.5 MG/3ML) MG/3ML) MG/3ML) 0.083% 0.083% 0.083% Flomax 0.4 Flomax 0.4 No 2{capsu QD Flomax 0.4 MG MG les} MG Memantine Memantine No 1{table BID Memantine HCl 10 MG HCl 10 MG t} HCl 10 MG Atorvastati Atorvastati No Atorvastat n Calcium n Calcium in Calcium 40 MG 40 MG 40 MG amLODIPine amLODIPine No 1{table QD amLODIPine Besylate Besylate t} Besylate 2.5 MG 2.5 MG 2.5 MG amLODIPine amLODIPine No amLODIPine Besylate 5 Besylate 5 Besylate 5 MG MG MG SEROquel 50 SEROquel 50 No 1{table QD SEROquel MG MG t_at_be 50 MG dtime} Donepezil Donepezil No 1{table QD Donepezil HCl 10 MG HCl 10 MG t_at_be HCl 10 MG dtime} Coreg 12.5 Coreg 12.5 No BID Coreg 12.5 MG MG MG Folic Acid Folic Acid No Folic Acid 1 MG 1 MG 1 MG Flomax 0.4 Flomax 0.4 No 1{capsu Flomax 0.4 MG MG le} MG Clopidogrel Clopidogrel No Clopidogre Bisulfate Bisulfate l 75 MG 75 MG Bisulfate 75 MG Ketoconazol Ketoconazol No QD Ketoconazo e 2 % e 2 % le 2 % levETIRAcet levETIRAcet No levETIRAce am 500 MG am 500 MG summers 500 MG Albuterol Albuterol No Albuterol Sulfate HFA Sulfate HFA Sulfate 108 (90 108 (90 HFA 108 Base) Base) (90 Base) MCG/ACT MCG/ACT MCG/ACT Aspirin 81 Aspirin 81 No 1{table QD Aspirin 81 81 MG 81 MG t} 81 MG Budesonide- Budesonide- No 2{puffs BID Budesonide Formoterol Formoterol } -Formotero Fumarate Fumarate l Fumarate 160-4.5 160-4.5 160-4.5 MCG/ACT MCG/ACT MCG/ACT buPROPion buPROPion No 1{table QD buPROPion HCl ER (XL) HCl ER (XL) t_in_th HCl ER 150 MG 150 MG e_morni (XL) 150 ng} MG Proscar 5 Proscar 5 No 1{table QD Proscar 5 MG MG t} MG Albuterol Albuterol No 3{ml_as QID Albuterol Sulfate Sulfate _needed Sulfate (2.5 (2.5 } (2.5 MG/3ML) MG/3ML) MG/3ML) 0.083% 0.083% 0.083% Flomax 0.4 Flomax 0.4 No 2{capsu QD Flomax 0.4 MG MG les} MG Memantine Memantine No 1{table BID Memantine HCl 10 MG HCl 10 MG t} HCl 10 MG Atorvastati Atorvastati No Atorvastat n Calcium n Calcium in Calcium 40 MG 40 MG 40 MG amLODIPine amLODIPine No 1{table QD amLODIPine Besylate Besylate t} Besylate 2.5 MG 2.5 MG 2.5 MG amLODIPine amLODIPine No amLODIPine Besylate 5 Besylate 5 Besylate 5 MG MG MG SEROquel 50 SEROquel 50 No 1{table QD SEROquel MG MG t_at_be 50 MG dtime} Melatonin 3 Melatonin 3 No 1{table QD Melatonin MG MG t_at_be 3 MG dtime_a s_neede d} Docusate Docusate No 1{capsu QD Docusate Sodium 100 Sodium 100 le_as_n Sodium 100 MG MG eeded} MG Ketoconazol Ketoconazol No QD Ketoconazo e 2 % e 2 % le 2 % Fluticasone Fluticasone No 1{puff} QD Fluticason Furoate-Silver Furoate-Silver e anterol anterol Furoate-Vi 100-25 100-25 lanterol MCG/INH MCG/INH 100-25 MCG/INH Acetaminoph Acetaminoph No 1{table 6xD Acetaminop en 325 MG en 325 MG t_as_ne hen 325 MG eded} Coreg 12.5 Coreg 12.5 No BID Coreg 12.5 MG MG MG Memantine Memantine No 1{table BID Memantine HCl 10 MG HCl 10 MG t} HCl 10 MG amLODIPine amLODIPine No 1{table QD amLODIPine Besylate Besylate t} Besylate 2.5 MG 2.5 MG 2.5 MG Albuterol Albuterol No 3{ml_as QID Albuterol Sulfate Sulfate _needed Sulfate (2.5 (2.5 } (2.5 MG/3ML) MG/3ML) MG/3ML) 0.083% 0.083% 0.083% buPROPion buPROPion No 1{table QD buPROPion HCl ER (XL) HCl ER (XL) t_in_th HCl ER 150 MG 150 MG e_morni (XL) 150 ng} MG SEROquel 50 SEROquel 50 No 1{table QD SEROquel MG MG t_at_be 50 MG dtime} levETIRAcet levETIRAcet No levETIRAce am 500 MG am 500 MG summers 500 MG amLODIPine amLODIPine No amLODIPine Besylate 5 Besylate 5 Besylate 5 MG MG MG Albuterol Albuterol No Albuterol Sulfate HFA Sulfate HFA Sulfate 108 (90 108 (90 HFA 108 Base) Base) (90 Base) MCG/ACT MCG/ACT MCG/ACT Atorvastati Atorvastati No Atorvastat n Calcium n Calcium in Calcium 40 MG 40 MG 40 MG Flomax 0.4 Flomax 0.4 No 1{capsu Flomax 0.4 MG MG le} MG Senna 8.6 Senna 8.6 No 1{table BID Senna 8.6 MG MG t} MG QUEtiapine QUEtiapine No 1{table QD QUEtiapine Fumarate 25 Fumarate 25 t_at_be Fumarate MG MG dtime} 25 MG Clopidogrel Clopidogrel No Clopidogre Bisulfate Bisulfate l 75 MG 75 MG Bisulfate 75 MG Simethicone Simethicone No 1{table TID Simethicon 80 MG 80 MG t_after e 80 MG _meals_ and_at_ bedtime _as_nee ded} Donepezil Donepezil No 1{table QD Donepezil HCl 10 MG HCl 10 MG t_at_be HCl 10 MG dtime} Folic Acid Folic Acid No Folic Acid 1 MG 1 MG 1 MG Aspirin 81 Aspirin 81 No 1{table QD Aspirin 81 81 MG 81 MG t} 81 MG Budesonide- Budesonide- No 2{puffs BID Budesonide Formoterol Formoterol } -Formotero Fumarate Fumarate l Fumarate 160-4.5 160-4.5 160-4.5 MCG/ACT MCG/ACT MCG/ACT Proscar 5 Proscar 5 No 1{table QD Proscar 5 MG MG t} MG Flomax 0.4 Flomax 0.4 No 2{capsu QD Flomax 0.4 MG MG les} MG Albuterol Albuterol No 3{ml_as QID Albuterol Sulfate Sulfate _needed Sulfate (2.5 (2.5 } (2.5 MG/3ML) MG/3ML) MG/3ML) 0.083% 0.083% 0.083% Aspirin 81 Aspirin 81 No 1{table QD Aspirin 81 81 MG 81 MG t} 81 MG Clopidogrel Clopidogrel No Clopidogre Bisulfate Bisulfate l 75 MG 75 MG Bisulfate 75 MG Flomax 0.4 Flomax 0.4 No 2{capsu QD Flomax 0.4 MG MG les} MG Coreg 12.5 Coreg 12.5 No 1{table QD Coreg 12.5 MG MG t_with_ MG food} amLODIPine amLODIPine No 1{table QD amLODIPine Besylate 10 Besylate 10 t} Besylate MG MG 10 MG Atorvastati Atorvastati No Atorvastat n Calcium n Calcium in Calcium 40 MG 40 MG 40 MG Ventolin Ventolin No 2{puffs QID Ventolin HFA 108 (90 HFA 108 (90 _as_nee HFA 108 Base) Base) ded} (90 Base) MCG/ACT MCG/ACT MCG/ACT Folic Acid Folic Acid No 1{table QD Folic Acid 1 MG 1 MG t} 1 MG Atorvastati Atorvastati No 1{table QD Atorvastat n Calcium n Calcium t} in Calcium 40 MG 40 MG 40 MG Clopidogrel Clopidogrel No 1{table QD Clopidogre Bisulfate Bisulfate t} l 75 MG 75 MG Bisulfate 75 MG Coreg 3.125 Coreg 3.125 No QD Coreg MG MG 3.125 MG Clopidogrel Clopidogrel No 1{table QD Clopidogre Bisulfate Bisulfate t} l 75 MG 75 MG Bisulfate 75 MG Albuterol Albuterol No 3{ml_as QID Albuterol Sulfate Sulfate _needed Sulfate (2.5 (2.5 } (2.5 MG/3ML) MG/3ML) MG/3ML) 0.083% 0.083% 0.083% Folic Acid Folic Acid No 1{table QD Folic Acid 1 MG 1 MG t} 1 MG Aricept 10 Aricept 10 No 1{table QD Aricept 10 MG MG t_at_be MG dtime} Aspirin 81 Aspirin 81 No 1{table QD Aspirin 81 81 MG 81 MG t} 81 MG Atorvastati Atorvastati No Atorvastat n Calcium n Calcium in Calcium 40 MG 40 MG 40 MG Flomax 0.4 Flomax 0.4 No 2{capsu QD Flomax 0.4 MG MG les} MG Clopidogrel Clopidogrel No Clopidogre Bisulfate Bisulfate l 75 MG 75 MG Bisulfate 75 MG Ventolin Ventolin No 2{puffs QID Ventolin HFA 108 (90 HFA 108 (90 _as_nee HFA 108 Base) Base) ded} (90 Base) MCG/ACT MCG/ACT MCG/ACT amLODIPine amLODIPine No 1{table QD amLODIPine Besylate 10 Besylate 10 t} Besylate MG MG 10 MG Coreg 3.125 Coreg 3.125 No QD Coreg MG MG 3.125 MG Coreg 12.5 Coreg 12.5 No 1{table QD Coreg 12.5 MG MG t_with_ MG food} Carbidopa-L Carbidopa-L No 1{table TID Carbidopa- evodopa evodopa t} Levodopa 10-100 MG 10-100 MG 10-100 MG Fluticasone Fluticasone No 1{puff} QD Fluticason Furoate-Silver Furoate-Silver e anterol anterol Furoate-Vi 100-25 100-25 lanterol MCG/INH MCG/INH 100-25 MCG/INH Atorvastati Atorvastati No 1{table QD Atorvastat n Calcium n Calcium t} in Calcium 40 MG 40 MG 40 MG Clopidogrel Clopidogrel No 1{table QD Clopidogre Bisulfate Bisulfate t} l 75 MG 75 MG Bisulfate 75 MG Albuterol Albuterol No 3{ml_as QID Albuterol Sulfate Sulfate _needed Sulfate (2.5 (2.5 } (2.5 MG/3ML) MG/3ML) MG/3ML) 0.083% 0.083% 0.083% Folic Acid Folic Acid No 1{table QD Folic Acid 1 MG 1 MG t} 1 MG Aricept 10 Aricept 10 No 1{table QD Aricept 10 MG MG t_at_be MG dtime} Aspirin 81 Aspirin 81 No 1{table QD Aspirin 81 81 MG 81 MG t} 81 MG Atorvastati Atorvastati No Atorvastat n Calcium n Calcium in Calcium 40 MG 40 MG 40 MG Flomax 0.4 Flomax 0.4 No 2{capsu QD Flomax 0.4 MG MG les} MG Clopidogrel Clopidogrel No Clopidogre Bisulfate Bisulfate l 75 MG 75 MG Bisulfate 75 MG Ventolin Ventolin No 2{puffs QID Ventolin HFA 108 (90 HFA 108 (90 _as_nee HFA 108 Base) Base) ded} (90 Base) MCG/ACT MCG/ACT MCG/ACT amLODIPine amLODIPine No 1{table QD amLODIPine Besylate 10 Besylate 10 t} Besylate MG MG 10 MG Coreg 3.125 Coreg 3.125 No QD Coreg MG MG 3.125 MG Coreg 12.5 Coreg 12.5 No 1{table QD Coreg 12.5 MG MG t_with_ MG food} Carbidopa-L Carbidopa-L No 1{table TID Carbidopa- evodopa evodopa t} Levodopa 10-100 MG 10-100 MG 10-100 MG Fluticasone Fluticasone No 1{puff} QD Fluticason Furoate-Silver Furoate-Silver e anterol anterol Furoate-Vi 100-25 100-25 lanterol MCG/INH MCG/INH 100-25 MCG/INH Atorvastati Atorvastati No 1{table QD Atorvastat n Calcium n Calcium t} in Calcium 40 MG 40 MG 40 MG Coreg 3.125 Coreg 3.125 No QD Coreg MG MG 3.125 MG Aspirin 81 Aspirin 81 No 1{table QD Aspirin 81 81 MG 81 MG t} 81 MG Atorvastati Atorvastati No Atorvastat n Calcium n Calcium in Calcium 40 MG 40 MG 40 MG Aricept 10 Aricept 10 No 1{table QD Aricept 10 MG MG t_at_be MG dtime} Carbidopa-L Carbidopa-L No 1{table TID Carbidopa- evodopa evodopa t} Levodopa 10-100 MG 10-100 MG 10-100 MG Flomax 0.4 Flomax 0.4 No 2{capsu QD Flomax 0.4 MG MG les} MG Albuterol Albuterol No 3{ml_as QID Albuterol Sulfate Sulfate _needed Sulfate (2.5 (2.5 } (2.5 MG/3ML) MG/3ML) MG/3ML) 0.083% 0.083% 0.083% Folic Acid Folic Acid No 1{table QD Folic Acid 1 MG 1 MG t} 1 MG amLODIPine amLODIPine No 1{table QD amLODIPine Besylate 10 Besylate 10 t} Besylate MG MG 10 MG Fluticasone Fluticasone No 1{puff} QD Fluticason Furoate-Silver Furoate-Silver e anterol anterol Furoate-Vi 100-25 100-25 lanterol MCG/INH MCG/INH 100-25 MCG/INH Coreg 12.5 Coreg 12.5 No 1{table QD Coreg 12.5 MG MG t_with_ MG food} Clopidogrel Clopidogrel No Clopidogre Bisulfate Bisulfate l 75 mg 75 mg Bisulfate 75 mg Ventolin Ventolin No 2{puffs QID Ventolin HFA 108 (90 HFA 108 (90 _as_nee HFA 108 Base) Base) ded} (90 Base) MCG/ACT MCG/ACT MCG/ACT Atorvastati Atorvastati No 1{table QD Atorvastat n Calcium n Calcium t} in Calcium 40 MG 40 MG 40 MG Coreg 3.125 Coreg 3.125 No QD Coreg MG MG 3.125 MG Aspirin 81 Aspirin 81 No 1{table QD Aspirin 81 81 MG 81 MG t} 81 MG Atorvastati Atorvastati No Atorvastat n Calcium n Calcium in Calcium 40 MG 40 MG 40 MG Aricept 10 Aricept 10 No 1{table QD Aricept 10 MG MG t_at_be MG dtime} Carbidopa-L Carbidopa-L No 1{table TID Carbidopa- evodopa evodopa t} Levodopa 10-100 MG 10-100 MG 10-100 MG Flomax 0.4 Flomax 0.4 No 2{capsu QD Flomax 0.4 MG MG les} MG Albuterol Albuterol No 3{ml_as QID Albuterol Sulfate Sulfate _needed Sulfate (2.5 (2.5 } (2.5 MG/3ML) MG/3ML) MG/3ML) 0.083% 0.083% 0.083% Folic Acid Folic Acid No 1{table QD Folic Acid 1 MG 1 MG t} 1 MG amLODIPine amLODIPine No 1{table QD amLODIPine Besylate 10 Besylate 10 t} Besylate MG MG 10 MG Fluticasone Fluticasone No 1{puff} QD Fluticason Furoate-Silver Furoate-Silver e anterol anterol Furoate-Vi 100-25 100-25 lanterol MCG/INH MCG/INH 100-25 MCG/INH Coreg 12.5 Coreg 12.5 No 1{table QD Coreg 12.5 MG MG t_with_ MG food} Clopidogrel Clopidogrel No Clopidogre Bisulfate Bisulfate l 75 mg 75 mg Bisulfate 75 mg Ventolin Ventolin No 2{puffs QID Ventolin HFA 108 (90 HFA 108 (90 _as_nee HFA 108 Base) Base) ded} (90 Base) MCG/ACT MCG/ACT MCG/ACT Atorvastati Atorvastati No 1{table QD Atorvastat n Calcium n Calcium t} in Calcium 40 MG 40 MG 40 MG Coreg 3.125 Coreg 3.125 No QD Coreg MG MG 3.125 MG Aspirin 81 Aspirin 81 No 1{table QD Aspirin 81 81 MG 81 MG t} 81 MG Atorvastati Atorvastati No Atorvastat n Calcium n Calcium in Calcium 40 MG 40 MG 40 MG Aricept 10 Aricept 10 No 1{table QD Aricept 10 MG MG t_at_be MG dtime} Carbidopa-L Carbidopa-L No 1{table TID Carbidopa- evodopa evodopa t} Levodopa 10-100 MG 10-100 MG 10-100 MG Flomax 0.4 Flomax 0.4 No 2{capsu QD Flomax 0.4 MG MG les} MG Albuterol Albuterol No 3{ml_as QID Albuterol Sulfate Sulfate _needed Sulfate (2.5 (2.5 } (2.5 MG/3ML) MG/3ML) MG/3ML) 0.083% 0.083% 0.083% Folic Acid Folic Acid No 1{table QD Folic Acid 1 MG 1 MG t} 1 MG amLODIPine amLODIPine No 1{table QD amLODIPine Besylate 10 Besylate 10 t} Besylate MG MG 10 MG Fluticasone Fluticasone No 1{puff} QD Fluticason Furoate-Silver Furoate-Silver e anterol anterol Furoate-Vi 100-25 100-25 lanterol MCG/INH MCG/INH 100-25 MCG/INH Coreg 12.5 Coreg 12.5 No 1{table QD Coreg 12.5 MG MG t_with_ MG food} Clopidogrel Clopidogrel No Clopidogre Bisulfate Bisulfate l 75 mg 75 mg Bisulfate 75 mg Ventolin Ventolin No 2{puffs QID Ventolin HFA 108 (90 HFA 108 (90 _as_nee HFA 108 Base) Base) ded} (90 Base) MCG/ACT MCG/ACT MCG/ACT Atorvastati Atorvastati No 1{table QD Atorvastat n Calcium n Calcium t} in Calcium 40 MG 40 MG 40 MG Coreg 3.125 Coreg 3.125 No QD Coreg MG MG 3.125 MG Aspirin 81 Aspirin 81 No 1{table QD Aspirin 81 81 MG 81 MG t} 81 MG Atorvastati Atorvastati No Atorvastat n Calcium n Calcium in Calcium 40 MG 40 MG 40 MG Aricept 10 Aricept 10 No 1{table QD Aricept 10 MG MG t_at_be MG dtime} Carbidopa-L Carbidopa-L No 1{table TID Carbidopa- evodopa evodopa t} Levodopa 10-100 MG 10-100 MG 10-100 MG Flomax 0.4 Flomax 0.4 No 2{capsu QD Flomax 0.4 MG MG les} MG Albuterol Albuterol No 3{ml_as QID Albuterol Sulfate Sulfate _needed Sulfate (2.5 (2.5 } (2.5 MG/3ML) MG/3ML) MG/3ML) 0.083% 0.083% 0.083% Folic Acid Folic Acid No 1{table QD Folic Acid 1 MG 1 MG t} 1 MG amLODIPine amLODIPine No 1{table QD amLODIPine Besylate 10 Besylate 10 t} Besylate MG MG 10 MG Fluticasone Fluticasone No 1{puff} QD Fluticason Furoate-Silver Furoate-Silver e anterol anterol Furoate-Vi 100-25 100-25 lanterol MCG/INH MCG/INH 100-25 MCG/INH Coreg 12.5 Coreg 12.5 No 1{table QD Coreg 12.5 MG MG t_with_ MG food} Clopidogrel Clopidogrel No Clopidogre Bisulfate Bisulfate l 75 mg 75 mg Bisulfate 75 mg Ventolin Ventolin No 2{puffs QID Ventolin HFA 108 (90 HFA 108 (90 _as_nee HFA 108 Base) Base) ded} (90 Base) MCG/ACT MCG/ACT MCG/ACT Atorvastati Atorvastati No 1{table QD Atorvastat n Calcium n Calcium t} in Calcium 40 MG 40 MG 40 MG Proscar 5 Proscar 5 No 1{table QD Proscar 5 MG MG t} MG Flomax 0.4 Flomax 0.4 No 1{capsu Flomax 0.4 MG MG le} MG Flomax 0.4 Flomax 0.4 No 2{capsu QD Flomax 0.4 MG MG les} MG Albuterol Albuterol No 3{ml_as QID Albuterol Sulfate Sulfate _needed Sulfate (2.5 (2.5 } (2.5 MG/3ML) MG/3ML) MG/3ML) 0.083% 0.083% 0.083% buPROPion buPROPion No 1{table QD buPROPion HCl ER (XL) HCl ER (XL) t_in_th HCl ER 150 MG 150 MG e_morni (XL) 150 ng} MG Clopidogrel Clopidogrel No Clopidogre Bisulfate Bisulfate l 75 MG 75 MG Bisulfate 75 MG SEROquel 50 SEROquel 50 No 1{table QD SEROquel MG MG t_at_be 50 MG dtime} Atorvastati Atorvastati No 1{table QD Atorvastat n Calcium n Calcium t} in Calcium 40 MG 40 MG 40 MG Albuterol Albuterol No Albuterol Sulfate HFA Sulfate HFA Sulfate 108 (90 108 (90 HFA 108 Base) Base) (90 Base) MCG/ACT MCG/ACT MCG/ACT Budesonide- Budesonide- No 2{puffs BID Budesonide Formoterol Formoterol } -Formotero Fumarate Fumarate l Fumarate 160-4.5 160-4.5 160-4.5 MCG/ACT MCG/ACT MCG/ACT Atorvastati Atorvastati No Atorvastat n Calcium n Calcium in Calcium 40 MG 40 MG 40 MG Folic Acid Folic Acid No 1{table QD Folic Acid 1 MG 1 MG t} 1 MG Aspirin 81 Aspirin 81 No 1{table QD Aspirin 81 81 MG 81 MG t} 81 MG amLODIPine amLODIPine No amLODIPine Besylate 5 Besylate 5 Besylate 5 MG MG MG Donepezil Donepezil No 1{table QD Donepezil HCl 10 MG HCl 10 MG t_at_be HCl 10 MG dtime} Fluticasone Fluticasone 2021- No 1{puff} QD Fluticason Furoate-Silver Furoate-Silver 08-29 e anterol anterol 00:00 Furoate-Vi 100-25 100-25 :00 lanterol MCG/INH MCG/INH 100-25 MCG/INH Immunizations Ordered Immunization Filled Immunization Date Status Commen ts Source Name Name [place] [id number] 2021-09-28 Completed [facility] (Low Dose Vaccine (Low Dose 14:33:00 - [facility] Booster) Booster) [place] [id number] 2021-09-28 Com[facility] (Low Dose Vaccine (Low Dose 14:33:00 - [facility] [address] [facility] (Low Dose Vaccine (Low Dose 14[facility]33:00 - [facility] Booster) Booster) [address] [facility]-28 Com[facility] (Low Dose Vaccine (Low Dose 14:33:00 - [facility]) [facility] [address] [facility] 2021-09-28 Com[facility] (Low Dose Vaccine (Low Dose 14:33:00 - [facility] Booster) Booster) [address] [facility] 2021-09-28 Com[facility]ine (Low Dose Vaccine (Low Dose 14:33:00 - [facility] Booster) Booster) [address] [facility] 2021-09-28 Com[facility] Vaccine (Low Dose Vaccine (Low Dose 14:33:00 - [facility] Booster) Booster) [address] [facility] 2021-09-28 Com[facility]ine (Low Dose Vaccine (Low Dose 14:33:00 - [facility] Booster) Booster) [facility] 2021-09-28 Completed [facility] Vaccine (Low Dose Vaccine (Low Dose 14:33:00 - [facility] Booster) Booster) [facility] [address] AL[place] 2021-09-28 Completed [facility] Vaccine (Low Dose Vaccine (Low Dose 14:33:00 - [facility] Booster) Booster) [address] [facility] Vaccine (Low Dose Vaccine (Low Dose 14:33:00 - [facility] Booster) Booster) [facility] TONE[address] TONEPer[place] 2021-09-28 Completed [facility] Vaccine (Low Dose Vaccine (Low Dose 14:33:00 - [facility] Booster) Booster) [address] [facility]-28 [facility] Vaccine (Low Dose Vaccine (Low Dose 14:33:00 - [facility] Booster) Booster) [facility] FLUZONE HIGH DOSE FLUZONE HIGH DOSE 2021-08-28 Completed [facility] OVER 65 OVER 65 15:01:00 [facility] FLUZONE HIGH DOSE FLUZONE HIGH DOSE 2021-08-28 Completed [facility] OVER 65 OVER 65 15:01:00 [facility] FLUZONE HIGH DOSE FLUZONE HIGH DOSE 2021-08-28 Completed [facility] OVER 65 OVER 65 15:01:00 [facility] FLUZONE HIGH DOSE FLUZONE HIGH DOSE 2021-08-28 Completed [facility] OVER 65 OVER 65 15:01:00 [facility] FLUZONE HIGH DOSE FLUZONE HIGH DOSE 2021-08-28 Completed [facility] OVER 65 OVER 65 15:01:00 [facility] FLUZONE HIGH DOSE FLUZONE HIGH DOSE 2021-08-28 Completed [facility] OVER 65 OVER 65 15:01:00 [facility] FLUZONE HIGH DOSE FLUZONE HIGH DOSE 2021-08-28 Completed [facility] OVER 65 OVER 65 15:01:00 - [facility] FLUZONE HIGH DOSE FLUZONE HIGH DOSE 2021-08-28 Completed [facility] OVER 65 OVER 65 15:01:00 - [facility] FLUZONE HIGH DOSE FLUZONE HIGH DOSE 2021-08-28 Completed [facility] OVER 65 OVER 65 15:01:00 - [facility] FLUZONE HIGH DOSE FLUZONE HIGH DOSE 2021-08-28 Completed [facility] OVER 65 OVER 65 15:01:00 - [facility] FLUZONE HIGH DOSE FLUZONE HIGH DOSE 2021-08-28 Completed [facility] OVER 65 OVER 65 15:01:00 - [facility] FLUZONE HIGH DOSE FLUZONE HIGH DOSE 2021-08-28 Completed [facility] OVER 65 OVER 65 15:01:00 - [facility] FLUZONE HIGH DOSE FLUZONE HIGH DOSE 2021-08-28 Completed [facility] OVER 65 OVER 65 15:01:00 - [facility] Moderna COVID-19 Moderna COVID-19 2021-01-04 Completed [facility] Vaccine Vaccine 14:35:00 - [facility] Moderna COVID-19 Moderna COVID-19 2021-01-04 Completed [facility] Vaccine Vaccine 14:35:00 - [facility] Moderna COVID-19 Moderna COVID-19 2021-01-04 Completed [facility] Vaccine Vaccine 14:35:00 - [facility] Moderna COVID-19 Moderna COVID-19 2021-01-04 Completed [facility] Vaccine Vaccine 14:35:00 - [facility] Moderna COVID-19 Moderna COVID-19 2021-01-04 Completed [facility] Vaccine Vaccine 14:35:00 [facility] Moderna COVID-19 Moderna COVID-19 2021-01-04 Completed [facility] Vaccine Vaccine 14:35:00 [facility] Moderna COVID-19 Moderna COVID-19 2021-01-04 Completed [facility] Vaccine Vaccine 14:35:00 [facility] Moderna COVID-19 Moderna COVID-19 2021-01-04 Completed [facility] Vaccine Vaccine 14:35:00 - [facility] Moderna COVID-19 Moderna COVID-19 2021-01-04 Completed [facility] Vaccine Vaccine 14:35:00 - [facility] Moderna COVID-19 Moderna COVID-19 2021-01-04 Completed [facility] Vaccine Vaccine 14:35:00 - [facility] Moderna COVID-19 Moderna COVID-19 2021-01-04 Completed [facility] Vaccine Vaccine 14:35:00 - [facility] Moderna COVID-19 Moderna COVID-19 2021-01-04 Completed [facility] Vaccine Vaccine 14:35:00 - [facility] Moderna COVID-19 Moderna COVID-19 2021-01-04 Completed [facility] Vaccine Vaccine 14:35:00 - [facility] Moderna COVID-19 Moderna COVID-19 2020-12-03 Completed [facility] Vaccine Vaccine 14:34:00 - [facility] Moderna COVID-19 Moderna COVID-19 2020-12-03 Completed [facility] Vaccine Vaccine 14:34:00 - [facility] Moderna COVID-19 Moderna COVID-19 2020-12-03 Completed [facility] Vaccine Vaccine 14:34:00 - [facility] Moderna COVID-19 Moderna COVID-19 2020-12-03 Completed [facility] Vaccine Vaccine 14:34:00 - [facility] Moderna COVID-19 Moderna COVID-19 2020-12-03 Completed [facility] Vaccine Vaccine 14:34:00 - [facility] Moderna COVID-19 Moderna COVID-19 2020-12-03 Completed [facility] Vaccine Vaccine 14:34:00 - [facility] Moderna COVID-19 Moderna COVID-19 2020-12-03 Completed [facility] Vaccine Vaccine 14:34:00 - [facility] Moderna COVID-19 Moderna COVID-19 2020-12-03 Completed [facility] Vaccine Vaccine 14:34:00 - [facility] Moderna COVID-19 Moderna COVID-19 2020-12-03 Completed [facility] Vaccine Vaccine 14:34:00 - [facility] Moderna COVID-19 Moderna COVID-19 2020-12-03 Completed [facility] Vaccine Vaccine 14:34:00 - [facility] Moderna COVID-19 Moderna COVID-19 2020-12-03 Completed [facility] Vaccine Vaccine 14:34:00 - [facility] Moderna COVID-19 Moderna COVID-19 2020-12-03 Completed [facility] Vaccine Vaccine 14:34:00 - [facility] Moderna COVID-19 Moderna COVID-19 2020-12-03 Completed [facility] Vaccine Vaccine 14:34:00 - [facility] FLUZONE HIGH DOSE FLUZONE HIGH DOSE 2020-07-15 Completed [facility] OVER 65 OVER 65 10:07:00 - [facility] FLUZONE HIGH DOSE FLUZONE HIGH DOSE 2020-07-15 Completed [facility] OVER 65 OVER 65 10:07:00 - [facility] FLUZONE HIGH DOSE FLUZONE HIGH DOSE 2020-07-15 Completed [facility] OVER 65 OVER 65 10:07:00 - [facility] FLUZONE HIGH DOSE FLUZONE HIGH DOSE 2020-07-15 Completed [facility] OVER 65 OVER 65 10:07:00 [facility] FLUZONE HIGH DOSE FLUZONE HIGH DOSE 2020-07-15 Completed [facility] OVER 65 OVER 65 10:07:00 - [facility] FLUZONE HIGH DOSE FLUZONE HIGH DOSE 2020-07-15 Completed [facility] OVER 65 OVER 65 10:07:00 - [facility] FLUZONE HIGH DOSE FLUZONE HIGH DOSE 2020-07-15 Completed [facility] OVER 65 OVER 65 10:07:00 - [facility] FLUZONE HIGH DOSE FLUZONE HIGH DOSE 2020-07-15 Completed [facility] OVER 65 OVER 65 10:07:00 [facility] FLUZONE HIGH DOSE FLUZONE HIGH DOSE 2020-07-15 Completed [facility] OVER 65 OVER 65 10:07:00 - [facility] FLUZONE HIGH DOSE FLUZONE HIGH DOSE 2020-07-15 Completed [facility] OVER 65 OVER 65 10:07:00 - [facility] FLUZONE HIGH DOSE FLUZONE HIGH DOSE 2020-07-15 Completed [facility] OVER 65 OVER 65 10:07:00 - [facility] FLUZONE HIGH DOSE FLUZONE HIGH DOSE 2020-07-15 Completed [facility] OVER 65 OVER 65 10:07:00 - [facility] FLUZONE HIGH DOSE FLUZONE HIGH DOSE 2020-07-15 Completed [facility] OVER 65 OVER 65 10:07:00 - [facility] FLUZONE HIGH DOSE FLUZONE HIGH DOSE 2019-08-13 Completed [facility] OVER 65 OVER 65 14:41:00 - [facility] FLUZONE HIGH DOSE FLUZONE HIGH DOSE 2019-08-13 Completed [facility] OVER 65 OVER 65 14:41:00 - [facility] FLUZONE HIGH DOSE FLUZONE HIGH DOSE 2019-08-13 Completed [facility] OVER 65 OVER 65 14:41:00 - [facility] FLUZONE HIGH DOSE FLUZONE HIGH DOSE 2019-08-13 Completed [facility] OVER 65 OVER 65 14:41:00 - [facility] FLUZONE HIGH DOSE FLUZONE HIGH DOSE 2019-08-13 Completed [facility] OVER 65 OVER 65 14:41:00 - [facility] FLUZONE HIGH DOSE FLUZONE HIGH DOSE 2019-08-13 Completed [facility] OVER 65 OVER 65 14:41:00 - [facility] FLUZONE HIGH DOSE FLUZONE HIGH DOSE 2019-08-13 Completed [facility] OVER 65 OVER 65 14:41:00 - [facility] FLUZONE HIGH DOSE FLUZONE HIGH DOSE 2019-08-13 Completed [facility] OVER 65 OVER 65 14:41:00 - [facility] FLUZONE HIGH DOSE FLUZONE HIGH DOSE 2019-08-13 Completed [facility] OVER 65 OVER 65 14:41:00 [facility] FLUZONE HIGH DOSE FLUZONE HIGH DOSE 2019-08-13 Completed [facility] OVER 65 OVER 65 14:41:00 [facility] FLUZONE HIGH DOSE FLUZONE HIGH DOSE 2019-08-13 Completed [facility] OVER 65 OVER 65 14:41:00 - [facility] FLUZONE HIGH DOSE FLUZONE HIGH DOSE 2019-08-13 Completed [facility] OVER 65 OVER 65 14:41:00 - [facility] FLUZONE HIGH DOSE FLUZONE HIGH DOSE 2019-08-13 Completed [facility] OVER 65 OVER 65 14:41:00 - [facility] FLUZONE HIGH DOSE FLUZONE HIGH DOSE 2018-08-15 Completed [facility] OVER 65 OVER 65 11:52:00 - [facility] FLUZONE HIGH DOSE FLUZONE HIGH DOSE 2018-08-15 Completed [facility] OVER 65 OVER 65 11:52:00 - [facility] FLUZONE HIGH DOSE FLUZONE HIGH DOSE 2018-08-15 Completed [facility] OVER 65 OVER 65 11:52:00 - [facility] FLUZONE HIGH DOSE FLUZONE HIGH DOSE 2018-08-15 Completed [facility] OVER 65 OVER 65 11:52:00 - [facility] FLUZONE HIGH DOSE FLUZONE HIGH DOSE 2018-08-15 Completed [facility] OVER 65 OVER 65 11:52:00 - [facility] FLUZONE HIGH DOSE FLUZONE HIGH DOSE 2018-08-15 Completed [facility] OVER 65 OVER 65 11:52:00 - [facility] FLUZONE HIGH DOSE FLUZONE HIGH DOSE 2018-08-15 Completed [facility] OVER 65 OVER 65 11:52:00 - [facility] FLUZONE HIGH DOSE FLUZONE HIGH DOSE 2018-08-15 Completed [facility] OVER 65 OVER 65 11:52:00 - [facility] FLUZONE HIGH DOSE FLUZONE HIGH DOSE 2018-08-15 Completed [facility] OVER 65 OVER 65 11:52:00 - [facility] FLUZONE HIGH DOSE FLUZONE HIGH DOSE 2018-08-15 Completed [facility] OVER 65 OVER 65 11:52:00 - [facility] FLUZONE HIGH DOSE FLUZONE HIGH DOSE 2018-08-15 Completed [facility] OVER 65 OVER 65 11:52:00 - [facility] FLUZONE HIGH DOSE FLUZONE HIGH DOSE 2018-08-15 Completed [facility] OVER 65 OVER 65 11:52:00 [facility] FLUZONE HIGH DOSE FLUZONE HIGH DOSE 2018-08-15 Completed [facility] OVER 65 OVER 65 11:52:00 - [facility] Vital Signs Vital Name Observation Time Observation Value Comments Source height 2022-07-05 16:00:00 71 [in_i] [facility] weight 2022-07-05 16:00:00 150 [lb_av] [facility] temperature 2022-07-05 16:00:00 98 [degF] [facility] bmi 2022-07-05 16:00:00 20.92 kg/m2 [facility] blood pressure 2022-07-05 16:00:00 119 mm[Hg] [facility] - systolic [facility] blood pressure 2022-07-05 16:00:00 75 mm[Hg] [facility] - diastolic [facility] height 2022-07-05 15:30:00 71 [in_i] [facility] weight 2022-07-05 15:30:00 150 [lb_av] [facility] temperature 2022-07-05 15:30:00 98 [degF] [facility] 2022-07-05 15:30:00 20.92 kg/m2 [facility] blood pressure 2022-07-05 15:30:00 119 mm[Hg] [facility] - systolic [facility] blood pressure 2022-07-05 15:30:00 75 mm[Hg] [facility] - diastolic [facility] height 2022-05-31 16:20:00 71 [in_i] [facility] weight 2022-05-31 16:20:00 150.0 [lb_av] [facility] temperature 2022-05-31 16:20:00 98.2 [degF] [facility] bmi 2022-05-31 16:20:00 20.92 kg/m2 [facility] oximetry 2022-05-31 16:20:00 97 % [facility] respiratory rate 2022-05-31 16:20:00 18 /min [facility] on [facility] blood pressure 2022-05-31 16:20:00 122 mm[Hg] Common [facility] systolic [facility] blood pressure 2022-05-31 16:20:00 58 mm[Hg] [facility] diastolic [facility] Systolic blood 2022-04-11 18:12:00 153 mm[Hg] [facility] Diastolic blood 2022-04-11 18:12:00 69 mm[Hg] [facility] Heart rate 2022-04-11 18:12:00 71 /min [facility] height 2022-03-22 13:00:00 71 [in_i] [facility] weight 2022-03-22 13:00:00 150 [lb_av] [facility] temperature 2022-03-22 13:00:00 98.2 [degF] [facility] bmi 2022-03-22 13:00:00 20.92 kg/m2 [facility] oximetry 2022-03-22 13:00:00 99 % [facility] respiratory rate 2022-03-22 13:00:00 17 /min Comm on [facility] blood pressure 2022-03-22 13:00:00 90 mm[Hg] [facility] systolic [facility] blood pressure 2022-03-22 13:00:00 54 mm[Hg] [facility] diastolic [facility] Procedures Procedure Date / Time Performed Performing Clinician Sour e HEAVY METALS SCREEN, URINE 2022-04-18 20:15:00 Lewis Mccarty [facility] VITAMIN B12 2022-04-14 00:00:00 Lewis Mccarty [facility] TSH 2022-04-14 00:00:00 Lewis Mccarty [facility] COPPER 2022-04-14 00:00:00 Lewis Mccarty [facility] Encounters Start End Encounter Admission Attending Care Care Encounter Source Date/Time Date/Time Type Type Clinicians Facility Department ID 2022-08-11 Outpatient [facility] [id number] [place] 13:29:47 [id number] [facility] 2022-07-18 Outpatient Real, STLMLC STLMLC [id number] Common 11:13:04 Barrie [facility] 2022-07-13 Outpatient Real, STLMLC STLMLC Common 14:05:03 Barrie [facility] 2022-07-06 Outpatient Real, STLMLC STLMLC [id number] Common 15:56:01 [facility] 2022-06-01 Outpatient Real, STLMLC STLMLC [id number] Common 14:08:02 Barrie [facility] 2022-04-13 Outpatient Real, STLMLC STLMLC Common 15:18:02 [facility] 2022-03-22 Outpatient Real, STLMLC STLMLC Common 13:05:02 Barrie [facility] 2022-03-13 Outpatient 3 Js, ENCPL CVA [id number] Encompa 09:23:09 Javier [facility] 2022-03-07 Outpatient 3 Js, ENCPL CVA [id number] Encompa 10:47:49 Javier 0510 [facility] 2022-03-06 Outpatient 3 [id number] ENCPL REF [id number] [facility]a 11:03:26 0509 [facility] 2020-12-11 Inpatient HCAPM HCAPM [id number] [facility] 23:40:36 84 [facility] 2022-08-28 2022-08-28 (TEL) STLMLC STLMLC [id number] Co mmon 00:00:00 00:00:00 [facility] 2022-08-15 2022-08-15 (TEL) STLMLC STLMLC [id number] Co mmon 00:00:00 00:00:00 [facility] 2022-05-22 2022-07-20 Outpatient NASRIN JSJENNIFERR ENCCLR [id number] ENCCLR 00:00:00 00:00:00 ADMISSION JAVIER 2022-07-05 2022-07-05 OFFICE STLC STLMLC [id number] Co mmon 00:00:00 00:00:00 VISIT Spirit ESTAB PT - CHI LEVEL 4 [facility] 2022-07-05 2022-07-05 SUB ANNUAL STLC STLC [id number] Common 00:00:00 00:00:00 MCR [facility] WELLNESS - CHI VISIT [facility] 2022-07-05 2022-07-05 (TEL) STLMLC STLMLC [id number] Co mmon 00:00:00 00:00:00 [facility] 2022-06-05 2022-06-05 Office JesusRILEY BBSViola 1.2.840.114 [id number] [place] 14:00:00 14:18:23 Visit Shashi 350.1.13.58 He alth 9.2.7.2.686 [id number] 2022-06-02 2022-06-02 Telephone JesusRILEY BBSViola 1.2.840.114 [id number] [place] 00:00:00 00:00:00 Shashi 350.1.13.58 He alth 9.2.7.2.686 [id number] 6 2022-05-31 2022-05-31 [facility] [id number] Co mmon 00:00:00 00:00:00 VISIT [facility] ESTAB PT - CHI LEVEL 4 [facility] 2022-05-26 2022-05-26 Outpatient [facility] 7505 [facility] 10:50:00 23:59:00 LEWIS 2022-05-23 2022-05-23 (TEL) STLMLC STLMLC [id number] Co mmon 00:00:00 00:00:00 [facility] 2022-05-22 2022-05-22 (TEL) STLMLC STLMLC [id number] Co mmon 00:00:00 00:00:00 [facility] 2022-05-03 2022-05-20 Inpatient 3 BROOKE Weinstein BIN [id number] Encompa 16:39:00 11:20:00 Javier 0706 [facility] Robert d 2022-05-15 2022-05-15 (TEL) STLMLC STLMLC [id number] Co mmon 00:00:00 00:00:00 [facility] 2022-05-02 2022-05-03 Outpatient U JASMEET [facility] 2185 [facility] 17:13:00 15:56:00 JAZZ 2022-05-01 2022-05-01 Telephone Darling Sanches 1.2. 840.114 [id number] [place] 00:00:00 00:00:00 Darling Sanches 350.1.13.58 [facility] 9.2.7.2.686 [facility] [id number] 2022-04-18 2022-04-18 Telephone RILEY Mccarty 6410 1.2.840.114 [id number] [place] 00:00:00 00:00:00 Lewis CARNEY 350.1.13.58 [facility] 9.2.7.2.686 [id number] 2022-04-11 2022-04-11 Office RILEY Mccarty 1.2.840.114 [id number] [place] 13:00:00 14:39:51 Visit Lewis ALEJANDROA 350.1.13.58 [facility] 9.2.7.2.686 [facility] [id number] SPECIALTY 5 2022-04-01 2022-04-01 (TEL) STLMLC STLMLC [id number] Co mmon 00:00:00 00:00:00 [facility] 2022-03-31 2022-03-31 (TEL) STLMLC STLMLC [id number] Co mmon 00:00:00 00:00:00 [facility] 2022-03-22 2022-03-22 OFFICE STLMLC STLMLC [id number] Co mmon 00:00:00 00:00:00 VISIT EST Spir it PT LEVEL 3 - [facility] 2022-03-06 2022-03-06 Emergency E ANA MARIA, MHBL MHBL [id number] MHBL 17:28:00 23:44:00 DIOR 2022-02-23 2022-02-27 Outpatient E AMY, BL MED 7503 MHBL 14:06:00 20:49:00 YONAS 2021-12-10 2021-12-10 Emergency E JAKE-A MHBL MHBL 7502 MHBL 17:30:00 22:35:00 MARISELA DELGADILLO 2021-02-28 2021-02-28 Outpatient [facility]AN[facility] 13:19:00 23:59:00 NOHEMY 2020-01-14 2020-01-14 Outpatient [place]ge[place] VFP VFP 795 [id number] [facility] 12:47:00 12:47:00 _J_AH 79107 [facility] 2020-01-14 2020-01-14 Outpatient Ige[place] VF VF 795 [id number] [facility] 12:47:00 12:47:00 _J_AH 30273 Family Practic e Results Test Description Test Time Test Comments Results Result Comments Source Heavy metals screen, urine 2022-04-21 04:00:00 Test Item Value Reference Range Interpretation Comme nts ARSENIC, URINE (test mcg/g creat Referen ce RangeNonexposed code = 33023-1) adult: ?< or = 35Biological Ex posure Index(end of sh or work week): < or = 5 0 See Note 1 LEAD, URINE (test SEE NOTE mcg/g creat Results ar e below code = 99899-9) reportable r mariah for this analyte,which i s 10 mcg/L.Reference RangeNonexposed adult: ?<10 See Note 1 MERCURY, RANDOM SEE NOTE mcg/g creat Results are below URINE (test code = reportabl e range for this 24371-0) analyte,which i s 4 mcg/L.Reference RangeNonexposed adult: ?< or = 4 Biological Exposure Index( preshift): ? < or = 35 See Note 1 CREATININE, RANDOM 188 mg/dL 20-320 Note 1 Th is test was URINE (test code = developed and its 216-8) analytical perf ormance characteristics have been determined by [facility]. It has not been cleared or approved by theFDA. This as say has been validated pursu ant to the CLIA regulation s and is used for clinic al purposes. REPORT COMMENT: SPLIT 04/14/2022 FROM 8143041 RAC (test code = Performing Organization RAC) Information: ? ?Site ID: SLI ? ?Name: [employer] VISHNU [facility]UTTER ? ?Address: [address] [place] [id number] ? ?Director: RONI KRAMER MD [place] [id number] 09:00:00 Test Item Value Reference Range Interpretation Comments COPPER (test See_Comment This test was code = developed and i ts 5631-7) analytical perf ormance characteristics have been determined by [facility]. It has not been cl eared or approved by theFDA. This assay has been validated pursu ant to the CLIA regula tions and is used for clinical purpos es. [Automated mess age] The system [employer] generated this result transmitted ref erence range: 70 - 175 mcg/dL. The ref erence range was not u sed to interpret this result as normal/abnor mal. RAC (test Performing code = RAC) Organization Information: ? ?Site ID: SLI ? ?Name: [facility] ? ?Address: [address] [place] [address] ? ?Director: RONI KRAMER MD [facility] Hospital[facility]it[facility] [id number] 09:00:00 Test Item Value Reference Interpretation Comments Range VITAMIN B12 280 pg/mL 200-1100 Please Note: A lthough the (test code = reference range for 9) cafokolL83 is 2 00-1100 pg/mL, it has b een reported that between5 a nd 10% of patients with v alues between 200 and 400pg/m L may experience neur opsychiatric and hematologic abnormalities due to occult B 12 deficiency; les s than 1%of patients with v alues above 400 pg/mL will have symptoms. RAC (test Performing code = RAC) Organization Information: ? ?Site ID: RGA ? ?Name: [employer] [facility] ? ?Address: [address] [place] [address] ? ?Director: GRACIE SULLIVAN MD [facility] [id number] 09:00:00 Test Item Value Reference Range Interpretation Comments TSH (test See_Comment [Automated mes david] code = The system whic h 3016-3) generated this result transmit sissy reference range : 0.40 - 4.50 mIU /L. The reference r mariah was not used to interpret this result as normal/abnormal . RAC (test Performing code = RAC) Organization Information: ? ?Site ID: RGA ? ?Name: [employer] [facility] ? ?Address: [address] [place] [address] ? ?Director: GRACIE SULLIVAN MD [facility] HospitalGLUCOSE BEDSIDE [id number] 06:38:00 Test Item Value Reference Range Interpretation Comments GLUCOSE BEDSIDE TESTING (test code = 93 mg/dL 70-110 N GLUBED) BASIC METABOLIC [id number] 06:24:00 Test Item Value Reference Range Interpretation [...] CA) 8.8 MG/DL 8.5-10.1 N GLUCOSE BEDSIDE [id number] 17:01:00 Test Item Value Reference Range Interpretation Comments GLUCOSE BEDSIDE TESTING (test code 220 mg/dL 70-110 H = GLUBED) GLUCOSE BEDSIDE [id number] 11:37:00 Test Item Value Reference Range Interpretation Comments GLUCOSE BEDSIDE TESTING (test code = 86 mg/dL 70-110 N GLUBED) GLUCOSE BEDSIDE [id number] 08:10:00 Test Item Value Reference Range Interpretation Comments GLUCOSE BEDSIDE TESTING (test code = 86 mg/dL 70-110 N GLUBED) BASIC METABOLIC [id number] 05:12:00 Test Item Value Reference Range Interpretation [...] CA) 8.6 MG/DL 8.5-10.1 N BASIC METABOLIC [id number] 05:07:00 Test Item Value Reference Range Interpretation [...] CA) 8.6 MG/DL 8.5-10.1 N GLUCOSE BEDSIDE [id number] 20:21:00 Test Item Value Reference Range Interpretation Comments GLUCOSE BEDSIDE TESTING (test code 119 mg/dL 70-110 H = GLUBED) - CT HEAD/BRAIN W/O [id number] 18:46:00 [facility] 1955 Sex: M Name: RADHA MARMOLEJO [facility] : 1955 Age/S: 65 / M [address] Unit #: [id number] Loc: [place] [address] Phys: Michele Thompson MD Acct: [id number] Dis Date: Status: ADM IN PHONE #: [phone] Exam Date: 12/10/2020 1843 FAX #: Reason: decrease loc since yesterday EXAMS: CPT: [id number] HEAD/BRAIN W/O CONT 12091 EXAM: CT BRAIN WITHOUT CONTRAST INDICATION: decrease loss of consciousness since yesterday COMPARISON: MR dated December 09, 2020 TECHNIQUE: Routine axial CT images of thebrain were obtained without venous contrast. IV contrast: None DLP: 875.51 mGy-cm FINDINGS: There is an evolving subacute lacunar infarct in the right thalamus. There are chronic lacunar infarcts in the right black radiata. There are areas of low-attenuation within the central white matter consistentwith chronic microvascular ischemic changes. There is prominence [...] CT exam was performed according to our departmentaldose optimization program, which includes automated exposure control, adjustment of the mA and or kVaccording to patient size and/or use of iterative reconstruction technique. at 1846 Reported and signed by: Kelsie Nielsen M.D. PAGE 1 Signed Report (CONTINUED) Name: RADHA MARMOLEJO [facility] : 1955 Age/S: 65 / M [address] Unit #: [id number] Loc: [place] [address] Phys: Michele Thompson MD Acct: [id number] Dis Date: Status: ADM IN PHONE #: [phone] Exam Date: 12/10/2020 184 FAX #: Reason: decrease locsince yesterday EXAMS: CPT: [id number] CT HEAD/BRAIN W/O CONT 54675 (Continued) CC: Michele Thompson MD; Pj Brooks MD Technologist:RT Nathaniel(R)(CT); En CTDI: DLP: Trnscb Date/Time: 12/10/2020 (1845) [email or web address] Orig Print D/T: S: 12/10/2020 (1848) PAGE 2 Signed Report- DUP EXTRACRANIAL [id number] 14:30:00 [facility] : 1955 Sex: M [facility]: [facility] [place] [facility] 1955 Age/S: 65 / M [address] Unit #: [id number] Loc: [place] [address] Phys: Pj Brooks MD Acct: [id number] Dis Date: Status: ADM IN PHONE #: [phone] Exam Date: 12/10/2020 1400 FAX #: Reason: ISCHEMIC STROKE EXAMS: CPT: [id number] DUP EXTRACRANIAL LAINEY [address] Dictation location A1 Carotid Doppler Ultrasound HISTORY: Ischemic stroke COMMENTS: The extracranial carotid arteries were evaluated with real time uribe scale, color and spectral Doppler. COMPARISON: MRI one day prior. FINDINGS: The peak systolic velocities and IC/CC ratios are within normal limits bilaterally measuring 0.8 bilaterally. There is mild scattered atherosclerotic plaque demon strated with no hemodynamically significant stenosis. Antegrade flow seen in both vertebral arteries. IMPRESSION: 1. No hemodynamically significant stenosis demonstrated. 2. Mild scattered plaque in both common carotid arteries and carotid bulbs. at 1430 Reported and signed by: Gege Wilson M.D. CC: Pj Brooks MD Technologist: Nicole Landin Trnohb Date/Time: 12/10/2020 (1430) JeriPX PAGE 1 Signed Report Name: RADHA MARMOLEJOland : 1955 Age/S: 65 / M [address] Unit #: [id number] Loc: [place] [address] Phys: Pj Brooks MD Acct: [id number] Dis Date: Status: ADM IN PHONE #: [phone] Exam Date: 12/10/2020 1400 FAX #: Reason: ISCHEMIC STROKE EXAMS: CPT: [id number] DUP EXTRACRANIAL LAINEY [address]2717 (Continued) Orig Print D/T: S: 12/10/2020 (1433) Probe: PAGE 2 Signed ReportGLYCOSYLATED HEMOGLOBIN PANEL 2020-12-10 11:30:00 Test Item Value Reference Range Interpretation Comments GLYCOSYLATED HEMOGLOBIN (HA1C) 5.8 % A1C 0.0-5.7 H (test code = GLYHGB) ESTIMATED AVERAGE GLUCOSE (test 120 MG/DLest code = EAG) COMPREHENSIVE METABOLIC [id number] 11:29:00 Test Item Value Reference Range Interpretation [...] L [Autom ated message] LDL/HDL) The system [employer] generated this result transmit sissy reference range : 1.48-3.22 Avg. The reference range was not used to interpret this result as normal/abnormal . CBC W/AUTO [id number] 11:01:00 Test Item Value Reference Range Interpretation [...] DIFF/SCN CRITERIA = MDIFF) Coronavirus 2019 nCoV [id number] 18:27:00 Test Item Value Reference Range Interpretation Comments Coronavirus 2019 nCoV Negative Negative Per ma nufacturer, Bedside (test code = negativ e results should [id number]) be treated aspresumptive a nd, if inconsistent wi th clinical signs andsymptoms or necessary for p atient management, pablo uld betested with a n alternative mol ecular assay. Negative resultsdo not p reclude SARS-CoV-2 infe ction and should not be usedas the sole basis for patient man agement decisions. Nega tive results should be considered in t he context of apat ient's recent exposure s, history, presen ce of clinicalsigns a nd symptoms consis tent with COVID-19. - MRI BRAIN W/O [id number] 16:59:00 [facility] : 1955 Sex: M FAX: Pj Rodriguez MD [phone] Camps: [address] St: ADM [facility]: [facility] 1955 Age/S: 65[facility]M [address] Unit #: [id number] Loc: [place] [address] Phys: Pj Brooks MD Acct: [id number] Dis Date: Status: ADM IN PHONE #: [phone] Exam Date: 12/09/2020 1650 FAX #: Reason: r/o CVA EXAMS: CPT: [id number] MRI BRAIN W/O CONTRAST 35029 EXAM: MRI BRAIN WITHOUT CONTRAST INDICATION: CVA COMPARISON: CT head dated December 09, 2020 TECHNIQUE: Multiplanar, multisequence MRI of the brain was obtained without administration of intravenous contrast. IV contrast: None FINDINGS: There is a small focus of restricted diffusion in the right thalamus with corresponding hyperintense T2 [...] The orbits and globes are unremarkable. IMPRESSION: S mall early subacute lacunar infarct in the right thalamus. Moderate chronic microvascular ischemic changes and diffuse cerebral volume loss. LOCATION: A 1 at 1659 Reported and signed by: Kelsie Nielsen M.D. CC: Pj Peace echnologist: Sherlyn Whiet RT(R)(CT) Transcribed Date/Time/By: 12/09/2020 (3178) :[email or web address] Orig Print D/T: S: 12/09/2020 (2348) PAGE 1 Signed ReportUR PROTEIN [id number] 15:35:00 Test Item Value Reference Range Interpretation Comments UR PROTEIN TOTAL (test code = 19.3 MG/DL 0.0-12.0 H PROTU) UR CREATININE [id number] 15:35:00 Test Item Value Reference Range Interpretation Comments UR CREATININE RANDOM (test code = 97.1 MG/DL 30-125 N CREATU) - US RETRO [id number] 15:10:00 [facility] : 1955 Sex: M Name: RADHA MARMOLEJO [facility] : 1955 Age/S: 65 / M [address] Unit #: [id number] Loc: [place] [address] Phys: Gamal Rudd MD Acct: [id number] Dis Date: Status: ADM IN PHONE #: [phone] Exam Date: 12/09/2020 1500 FAX #: Reason: evalm of kidney size and echogenicity for ckd EX AMS: CPT: [id number] RETRO LTD [address] Location of dictation: B2 ULTRASOUND OF THE [...] in the left kidney with internal echoes may represent severe hydronephrosis or multiple cysts. The bladder is not distended. There is no ascites. IMPRESSION: 1. Hyperechoic kidneys. 2. Simple cyst right kidney, multiple cysts versus severe hydronephrosis left kidney. at 1510 Reported and signed by: Gege Wilson M.D. CC: Pj Brooks MD; Gamal Rudd MD Technologist: Nicole Landin Trnscb Date/Time: 12/09/2020 (1510) Vivien PAGE 1 Signed Report Name: RADHA MARMOLEJO [place] : 1955 Age/S: 65 / M [address] Unit #: [id number] Loc: [place] [address] Phys: Gamal Rudd MD Acct: [id number] Dis Date: Status: ADM IN PHONE #: [phone] Exam Date: 12/09/2020 1500 FAX #: Reason: evalm of kidney size and echogenicity for ckd EXAMS: CPT: [id number] RETRO LTD 50949 (Continued) Orig Print D/T: S: 12/09/2020 (1514) Probe: PAGE 2 Signed ReportUA RFLX MICR CULT IF [id number] 08:20:00 Test Item Value Reference Range Interpretation [...] Indication for culture: Dysuria/Frequency- XR SHOULDER 2+V [id number] 08:19:00 [facility] : 1955 Sex: M Name: RADHA MARMOLEJO [facility] : 1955 Age/S: 65 / M [address] Unit #: [id number] Loc: [place] [address] Phys: Mode Duran MD Acct: [id number] Dis Date: Status: REG ER PHONE #: [phone] Exam Date: 12/09/2020814 FAX #: Reason: trauma EXAMS: CPT: [id number] XR SHOULDER 2+[place] [address] Fluoro Time: DAP (Gy m2): Air Kerma (mGy): Dictation Location B2 LEFT SHOULDER 3 VIEWS: HISTORY:Recurrent falls and confusion COMMENT: No no acute fracture, dislocation, focal lesion or destructive process seen. Mild degenerative narrowing of the joint spaces. Surrounding bones and soft tissues are intact. IMPRESSION: No acute findings of the left shoulder. at 0819 Reported and signed by: Gege Wilson M.D. CC: Mode Duran MD PAGE 1 Signed Report Name: RADHA MARMOLEJO : 1955 Age/S: 65 / M [address] Unit #: [id number] Loc: [place] [address] Phys: Mode Duran MD Acct: [id number] Dis Date: Status: REG ER PHONE #: [phone] Exam Date: 12/09/2020814 FAX #: Reason: trauma EXAMS: CPT: [id number] XR SHOULDER 2+[place] [address] Fluoro Time: DAP (Gy m2): Air Kerma (mGy): (Continued) Technologist: Dominguez Molina, RT(R)(CT) Trnscb Date/Time: 12/09/2020 (818) [email or web address] Orig Print D/T: S: 12/09/2020 (08) PAGE 2 Signed ReportBASIC METABOLIC [id number] 08:11:00 Test Item Value Reference Range Interpretation [...] 8.6 MG/DL 8.5-10.1 N Completed by Nursing: [id number] 08:11:00 Test Item Value Reference Range Interpretation [...] shade yby method. Completed by Nursing: NOPROTHROMBIN [id number] 07:54:00 Test Item Value Reference Range Interpretation Comments PT PATIENT (test code = PTP) 11.7 SECONDS 9.3-12.9 N INTERNATIONAL NORMAL RATIO 1.04 INR Unit 0.8-1.2 N (test code = INR) THROMBOPLASTIN TIME [id number] 07:54:00 Test Item Value Reference Range Interpretation Comments THROMBOPLASTIN TIME PARTIAL 33.0 SECONDS 26-35 N (test code = PTT) - CT HEAD/BRAIN W/O [id number] 07:48:00 [facility] : 1955 Sex: M Name: RADHA MARMOLEJO [facility] : 1955 Age/S: 65 / M [address] Unit #: [id number] Loc: [place] [address] Phys: Mode Duran MD Acct: [id number] Dis Date: Status: PRE ER PHONE #: [phone] Exam Date: 12/09/202037 FAX #: Reason: Code Stroke EXAMS: CPT: [id number] CT HEAD/BRAIN W/O CONT 49288 EXAM: - CT HEAD/BRAIN W/O CONT INDICATION: Code Stroke LOCATION: T18 COMPARISON: Noneavailable time of interpretation. TECHNIQUE: Axial tomograms through the brain were obtained withoutintravenous contrast. Coronal and sagittal reformatted images are provided. All CT scans are performed using radiation dose reduction technique. Technical factors are evaluated and adjusted to insure appropriate moderation of exposure. Automated dose management technology is applied to adjust the radiation dose to minimize exposure while achieving a diagnostic quality image. FINDINGS: Intra-axial andextra-axial structures: No CT evidence of acute territorial infarct, or intracranial hemorrhage seen. No mass effect, midline shift or hydrocephalus seen. Bilateral periventricular low attenuation changes seen, suggesting sequela of chronic small vessel ischemic disease. Mild bilateral cerebral volumeloss. Bones and soft tissues:Appear unremarkable. Paranasal sinuses, and mastoid air cells: Appear clear. Orbits:Visualized orbits appear unremarkable. IMPRESSION: No acute intracranial process seen. Findings discussed with at 7:47 AM on 12/09/2020. FOR INTERNAL CODINGPURPOSES ONLY RESULT CODE: CVR at 0748 Reported and signed by: Isaias De Oliveira M.D. PAGE 1 Signed Report (CONTINUED) Name: RADHA MARMOLEJO [facility] : 1955 Age/S: 65 / M [address] Unit #: [id number] Loc: [place] [address] Phys: Mode Duran MD Acct: [id number] Dis Date: Status: PRE ER PHONE #: [phone] Exam Date: 12/09/2020 0737 FAX #: Reason: Code Stroke EXAMS: CPT: [id number] CT HEAD/BRAIN W/O CONT 53877 (Continued) CC: Mode Duran MD Technologist:Lewis See, RT(R) CTDI: DLP: Trnscb Date/Time: 12/09/2020 (0748) [email or web address] Orig Print D/T: S: 12/09/2020 (075) PAGE 2 Signed ReportCBC W/O [id number] 07:47:00 Test Item Value Reference Range Interpretation [...]
[2022-10-11] MEDS ORDERED: ONDANSETRON 4 MG/2 ML VIAL ONE (17:12)
[2022-10-11] MEDS ORDERED: NA CHLORIDE 0.9% 1,000 ML ONE (17:12)
[2022-10-11] MEDS ORDERED: FAMOTIDINE 20 MG/2 ML VIAL IV ONE (17:12)
[2022-10-11 17:21] LABS: Urine Blood Trace-intact (Negative); Urine Glucose Negative (Negative); Urine Protein 2+ (Negative); Urine Specific Gravity >=1.030 (1.005-1.030); Urine pH 5.5 (5.0-7.0)
[2022-10-11 18:01] LABS: Absolute Lymphocytes (CBC) 1.5 K/uL (0.7-4.9); Hematocrit 40.6 % (39.6-49.0); Lymphocytes % 17.4 % (15.3-44.8); MCV 83.5 fL (80-100); MPV 9.4 fL (7.6-11.3); RBC Red Blood Cell Count 4.86 M/uL (4.33-5.43)
[2022-10-11 18:04] LABS: Protime INR 1.18
--- NOTE | 2022-10-11 18:25 | RAD REPORT ---
EXAM DESCRIPTION: CT - Abdomen Pelvis Wo Contrast - 10/11/2022 6:11 pm CLINICAL HISTORY: Abdominal pain COMPARISON: 2012 TECHNIQUE: Computed axial tomography of the abdomen and pelvis was obtained. IV and oral contrast we re not requested. All CT scans are performed using dose optimization technique as appropriate and may include automated exposure control or mA/KV adjustment according to patient size. FINDINGS: The evaluation of solid organs, vessels and bowel is limited secondary to the lack of con trast administration. Severe left hydronephrosis. Virtually no normal left renal parenchyma. 4.8 centimeter cystic structure right kidney probably a parapelvic cyst. Additional smaller right gian al cysts. The liver, spleen, pancreas and right adrenal gland are grossly normal Small left adrenal adenoma unchanged No evidence of diverticulitis. Normal appendix IMPRESSION: Severe chronic left hydronephrosis 4.8 centimeter cystic structure right kidney probably a parapelvic cyst. Hydronephrosis is considered less likely.
--- NOTE | 2022-10-11 18:25 | RAD REPORT ---
EXAM DESCRIPTION: Bertha Single View10/11/2022 6:00 pm CLINICAL HISTORY: Abdominal pain COMPARISON: April 2022 FINDINGS: The lungs appear clear of acute infiltrate. The heart is normal size IMPRESSION: No acute abnormalities displayed
[2022-10-11 18:27] LABS: AST/SGOT 14 U/L (15-37); Albumin 3.6 g/dL (3.4-5.0); Alkaline Phosphatase 111 U/L (45-117); BUN Blood Urea Nitrogen 21 mg/dL (7-18); Bicarbonate 22 mmol/L (21-32); Bilirubin Direct 0.2 mg/dL (0-0.2); Bilirubin Total 0.9 mg/dL (0.2-1.0); Glomerular Filtration Rate 44 ml/min (=/>90); Glucose Level 106 mg/dL (74-106); Lipase 182 U/L (73-393); Magnesium 2.2 mg/dL (1.6-2.4); NT PRO-BNP 203 pg/mL (<125); Potassium 3.6 mmol/L (3.5-5.1); Protein, Total 8.5 g/dL (6.4-8.2); Sodium Level 137 mmol/L (136-145); Troponin High Sensitivity 9.2 pg/mL (<58.9)
[2022-10-11 18:28] LABS: ALT/SGPT < 10 U/L (16-61)
[2022-10-11] MEDS ORDERED: CEFTRIAXONE 1000 MG/VIAL ONE (18:28)
[2022-10-11 18:39] LABS: SARS-COV-2 RT PCR NEGATIVE (NEGATIVE)
--- NOTE | 2022-10-11 18:58 | ER ---
Nurse's Notes [facility] Name: Channing Marmolejo Age: 67 yrs Sex: Male : 1955 Arrival Date: 10/11/2022 Time: 16:56 Bed 24 Private MD: Diagnosis: Weakness;Vomiting;Diarrhea, unspecified;Hydronephrosis with ureteral stricture, not elsewhere classified;UTI/ Urinary tract infection, site not specified Presentation: 10/11 16:58 Chief complaint: EMS states: " his home health nurse called because he has been feeling em6 nauseous and vomiting. family decided to call EMS to get him checked out". Coronavirus screen: Client denies travel out of the [place] in the last 14 days. Ebola Screen: Patient negative for fever greater than or equal to 101.5 degrees Fahrenheit, and additional compatible Ebola Virus Disease symptoms. Initial Sepsis Screen: Does the patient meet any 2 criteria? No. Patient's initial sepsis screen is negative. Does the patient have a suspected source of infection? No. Patient's initial sepsis screen is negative. Risk Assessment: Do you want to hurt yourself or someone else? Patient reports no desire to harm self or others. Onset of symptoms was October 10, 2022. 16:58 Acuity: KANWAL 3 em6 16:58 Method Of Arrival: EMS: [facility] em6 Historical: - Allergies: 17:01 No Known Allergies; em6 - Home Meds: 17:01 amlodipine 10 mg oral tab once daily [Active]; aspirin 81 mg oral tab daily [Active]; em6 atorvastatin 40 mg oral tab 1 tab once daily [Active]; carvedilol 12.5 mg oral tab every 12 hours [Active]; clopidogrel 75 mg oral tab once daily [Active]; donepezil 5 mg oral tab twice a day [Active]; ergocalciferol (vitamin D2) 50,000 unit oral tab every sunday at 0800 [Active]; tamsulosin 0.4 mg oral cap once daily [Active]; Carbidopa-Levodopa Oral 3 times per day [Active]; - PMHx: 17:01 Carotid artery blockage; COPD; CVA; Hypertension; Seizure; em6 - Immunization history:: Adult Immunizations unknown. - Social history:: Smoking status: unknown. - Family history:: not pertinent. Screenin:58 Abuse screen: Denies threats or abuse. Nutritional screening: No deficits noted. em6 Tuberculosis screening: No symptoms or risk factors identified. Fall Risk Ambulatory Aid- None/Bed Rest/Nurse Assist (0 pts). Gait- Impaired (20 pts.). Total Sinclair Fall Scale indicates No Risk (0-24 pts). 17:06 [facility] ED Fall Risk Assessment (Adult) History of falling in the last 3 months, em6 including since admission No falls in past 3 months (0 pts) Confusion or Disorientation No (0 pts) Intoxicated or Sedated No (0 pts) Impaired Gait Yes (1 pt) Mobility Assist Device Used Yes (1 pt) Altered Elimination No (0 pt) Score/Fall Risk Level 0 - 2 = Low Risk Oriented to surroundings, Maintained a safe environment, Educated pt \\T\\ family on fall prevention, incl call for assistance when getting out of bed, Assessed \\T\\ reinforced patient's understanding of fall precautions, Hourly rounding (assess needs \\T\\ fall precautionary measures) done, Used ambulatory aids as needed (educated on \\T\\ assisted with), Used gait belt as appropriate. Assessment: 16:57 General: Appears in no apparent distress. Behavior is cooperative. Pain: Denies pain. em6 Neuro: Level of Consciousness is awake, alert, obeys commands, Oriented to person, place, time, situation. Cardiovascular: Patient's skin is warm and dry. Respiratory: Airway is patent Respiratory effort is even, unlabored, Respiratory pattern is regular, symmetrical. GI: Abdomen is non-distended, Bowel sounds present X 4 quads. Abd is soft and non tender X 4 quads. Reports intolerance of fluids, intolerance of food, nausea, vomiting. : No signs and/or symptoms were reported regarding the genitourinary system. EENT: No signs and/or symptoms were reported regarding the EENT system. Derm: No signs and/or symptoms reported regarding the dermatologic system. Musculoskeletal: Capillary refill < 3 seconds, Range of motion: limited in all extremities, uses wheelchair at home to move around. 18:00 Reassessment: Patient appears in no apparent distress at this time. No changes from em6 previously documented assessment. Patient and/or family updated on plan of care and expected duration. Pain level reassessed. Patient is alert, oriented x 3, equal unlabored respirations, skin warm/dry/pink. changed patients brief. 19:00 Reassessment: Patient appears in no apparent distress at this time. No changes from em6 previously documented assessment. Patient and/or family updated on plan of care and expected duration. Pain level reassessed. Patient is alert, oriented x 3, equal unlabored respirations, skin warm/dry/pink. 20:00 Reassessment: Patient appears in no apparent distress at this time. No changes from em6 previously documented assessment. Patient and/or family updated on plan of care and expected duration. Pain level reassessed. Patient is alert, oriented x 3, equal unlabored respirations, skin warm/dry/pink. changed patients brief. 21:13 Reassessment: Patient appears in no apparent distress at this time. No changes from em6 previously documented assessment. Patient and/or family updated on plan of care and expected duration. Pain level reassessed. Patient is alert, oriented x 3, equal unlabored respirations, skin warm/dry/pink. gave report to rock nair. Vital Signs: 16:58 BP 145 / 67; Pulse 62; Resp 16; Temp 97.8; Pulse Ox 98% on R/A; Weight 63.5 kg; Height em6 5 ft. 11 in. (180.34 cm); Pain 0/10; 18:30 BP 140 / 72; Pulse 62; Resp 18; Pulse Ox 100% on R/A; em6 20:00 BP 138 / 89; Pulse 65; Resp 18; Pulse Ox 99% on R/A; em6 21:00 BP 155 / 69; Pulse 61; Resp 16; Pulse Ox 99% on R/A; em6 16:58 Body Mass Index 19.53 (63.50 kg, 180.34 cm) em6 ED Course: 16:56 Patient arrived in ED. em6 16:58 Matt Jack MD is Attending Physician. [facility] 17:00 Triage completed. em6 17:00 Arm band placed on. em6 17:06 Julia Schmidt, USHA is Primary Nurse. em6 17:06 Bed in low position. Call light in reach. Side rails up X2. Pulse ox on. NIBP on. Warm em6 blanket given. 17:52 Basic Metabolic Panel Sent. ss 17:52 CBC with Diff Sent. ss 17:52 LFT's Sent. ss 17:52 Magnesium Sent. ss 17:52 NT PRO-BNP Sent. ss 17:52 PT-INR Sent. ss 17:52 Troponin HS Sent. ss 17:52 Lipase Sent. ss 17:53 Initial lab(s) drawn, by me, sent to lab. Inserted saline lock: 22 gauge in right em1 forearm, using aseptic technique. Blood collected. Missed attempt(s): 22 gauge in right antecubital area. Bleeding controlled, band aid applied, catheter tip intact. 18:02 XRAY Chest (1 view) In Process Unspecified. EDMS 18:05 Urine Dipstick-Ancillary Sent. em6 18:13 CT Abd/Pelvis - Without Contrast In Process Unspecified. EDMS 18:53 Randal Greene is Hospitalizing Provider. zo 21:19 No provider procedures requiring assistance completed. Patient admitted, IV remains in em6 place. Administered Medications: 18:04 Drug: NS 0.9% 1000 ml Route: IV; Rate: 1 bolus; Site: right forearm; em6 20:23 Follow up: Response: No adverse reaction; IV Status: Completed infusion; IV Intake: em6 1000ml 18:04 Drug: Zofran (Ondansetron) 4 mg Route: IVP; Site: right forearm; em6 18:35 Follow up: Response: No adverse reaction em6 18:04 Drug: Pepcid (famotidine) 20 mg Route: IVP; Site: right forearm; em6 18:35 Follow up: Response: No adverse reaction em6 18:34 Drug: Rocephin (cefTRIAXone) 1 grams Route: IV; Rate: per protocol; Site: right forearm;em6 19:00 Follow up: Response: No adverse reaction; IV Status: Completed infusion; IV Intake: [id number] Medication: 21:20 VIS not applicable for this client. em6 Intake: 19:00 IV: 10ml; Total: 10ml. em6 20:23 IV: 1000ml; Total: 1010ml. em6 Outcome: 18:57 Decision to Hospitalize by Provider. zo 21:20 Admitted to Med/surg accompanied by tech, via stretcher, room 230, with chart, Report em6 called to rock nair 21:20 Condition: stable 21:25 Patient left the ED. em6 Signatures: Dispatcher [employer] Matt Moyer MD MD cha Martinez, Shine em1 Argelia Kaur RN RN Julia Ifnante RN RN em6 Corrections: (The following items were deleted from the chart) 21:14 18:00 Reassessment: Patient appears in no apparent distress at this time. No changes em6 from previously documented assessment. Patient and/or family updated on plan of care and expected duration. Pain level reassessed. Patient is alert, oriented x 3, equal unlabored respirations, skin warm/dry/pink. em6 21:14 20:00 Reassessment: Patient appears in no apparent distress at this time. No changes em6 from previously documented assessment. Patient and/or family updated on plan of care and expected duration. Pain level reassessed. Patient is alert, oriented x 3, equal unlabored respirations, skin warm/dry/pink. em6
--- NOTE | 2022-10-11 18:58 | EDPHYS ---
Physician Documentation [facility] Name: Channing Marmolejo Age: 67 yrs Sex: Male : 1955 Arrival Date: 10/11/2022 Time: 16:56 Bed 24 Private MD: ED Physician Matt Jack HPI: 10/11 17:25 This 67 yrs old Black Male presents to ER via EMS with complaints of Nausea/Vomiting. zo 17:25 The patient presents to the emergency department with nausea, vomiting, that is zo intermittent, described as bilious, diarrhea, that is intermittent. Onset: The symptoms/episode began/occurred this morning. Possible causes: unknown. The symptoms are aggravated by nothing. The symptoms are alleviated by nothing. Associated signs and symptoms: The patient has no apparent associated signs or symptoms. Severity of symptoms: At their worst the symptoms were mild moderate in the emergency department the symptoms are unchanged. The patient has not experienced similar symptoms in the past. Historical: - Allergies: 17:01 No Known Allergies; em6 - Home Meds: 17:01 amlodipine 10 mg oral tab once daily [Active]; aspirin 81 mg oral tab daily [Active]; em6 atorvastatin 40 mg oral tab 1 tab once daily [Active]; carvedilol 12.5 mg oral tab every 12 hours [Active]; clopidogrel 75 mg oral tab once daily [Active]; donepezil 5 mg oral tab twice a day [Active]; ergocalciferol (vitamin D2) 50,000 unit oral tab every sunday at 0800 [Active]; tamsulosin 0.4 mg oral cap once daily [Active]; Carbidopa-Levodopa Oral 3 times per day [Active]; - PMHx: 17:01 Carotid artery blockage; COPD; CVA; Hypertension; Seizure; em6 - Immunization history:: Adult Immunizations unknown. - Social history:: Smoking status: unknown. - Family history:: not pertinent. ROS: 17:25 Constitutional: Negative for fever, chills, and weight loss, Eyes: Negative for injury, zo pain, redness, and discharge, ENT: Negative for injury, pain, and discharge, Neck: Negative for injury, pain, and swelling, Cardiovascular: Negative for chest pain, palpitations, and edema, Abdomen/GI: Negative for abdominal pain, nausea, vomiting, diarrhea, and constipation, Back: Negative for injury and pain, : Negative for injury, bleeding, discharge, and swelling, MS/Extremity: Negative for injury and deformity, Skin: Negative for injury, rash, and discoloration, Neuro: Negative for headache, weakness, numbness, tingling, and seizure, Psych: Negative for depression, anxiety, suicide ideation, homicidal ideation, and hallucinations, Allergy/Immunology: Negative for hives, rash, and allergies, Endocrine: Negative for neck swelling, polydipsia, polyuria, polyphagia, and marked weight changes. 17:25 Cardiovascular: Negative for chest pain, edema, orthopnea, palpitations. 17:25 Abdomen/GI: Positive for nausea and vomiting, diarrhea. Exam: 17:25 Constitutional: This is a well developed, well nourished patient who is awake, alert, zo and in no acute distress. Head/Face: Normocephalic, atraumatic. Eyes: Pupils equal round and reactive to light, extra-ocular motions intact. Lids and lashes normal. Conjunctiva and sclera are non-icteric and not injected. Cornea within normal limits. Periorbital areas with no swelling, redness, or edema. ENT: Nares patent. No nasal discharge, no septal abnormalities noted. Tympanic membranes are normal and external auditory canals are clear. Oropharynx with no redness, swelling, or masses, exudates, or evidence of obstruction, uvula midline. Mucous membranes moist. Neck: Trachea midline, no thyromegaly or masses palpated, and no cervical lymphadenopathy. Supple, full range of motion without nuchal rigidity, or vertebral point tenderness. No Meningismus. Chest/axilla: Normal chest wall appearance and motion. Nontender with no deformity. No lesions are appreciated. Cardiovascular: Regular rate and rhythm with a normal S1 and S2. No gallops, murmurs, or rubs. Normal PMI, no JVD. No pulse deficits. Respiratory: Lungs have equal breath sounds bilaterally, clear to auscultation and percussion. No rales, rhonchi or wheezes noted. No increased work of breathing, no retractions or nasal flaring. Abdomen/GI: Soft, non-tender, with normal bowel sounds. No distension or tympany. No guarding or rebound. No evidence of tenderness throughout. Back: No spinal tenderness. No costovertebral tenderness. Full range of motion. Male : Normal genitalia with no discharge or lesions. Skin: Warm, dry with normal turgor. Normal color with no rashes, no lesions, and no evidence of cellulitis. MS/ Extremity: Pulses equal, no cyanosis. Neurovascular intact. Full, normal range of motion. Neuro: Awake and alert, GCS 15, oriented to person, place, time, and situation. Cranial nerves II-XII grossly intact. Motor strength 5/5 in all extremities. Sensory grossly intact. Cerebellar exam normal. Normal gait. Psych: Awake, alert, with orientation to person, place and time. Behavior, mood, and affect are within normal limits. 18:17 ECG was reviewed by the Attending Physician. zo 18:52 Musculoskeletal/extremity: DVT Exam: No signs of deep vein thrombosis. no pain, no zo swelling, no tenderness, negative Homans' sign noted on exam, no appreciated bluish discoloration, no erythema, no increased warmth. Vital Signs: 16:58 BP 145 / 67; Pulse 62; Resp 16; Temp 97.8; Pulse Ox 98% on R/A; Weight 63.5 kg; Height em6 5 ft. 11 in. (180.34 cm); Pain 0/10; 18:30 BP 140 / 72; Pulse 62; Resp 18; Pulse Ox 100% on R/A; em6 20:00 BP 138 / 89; Pulse 65; Resp 18; Pulse Ox 99% on R/A; em6 21:00 BP 155 / 69; Pulse 61; Resp 16; Pulse Ox 99% on R/A; em6 16:58 Body Mass Index 19.53 (63.50 kg, 180.34 cm) em6 MDM: 16:58 Patient medically screened. zo 17:27 Differential diagnosis: Nonspecific abd pain, gastritis, cholecystitis, pancreatitis, zo diverticulitis, viral gastroenteritis, gastroenteritis. Data reviewed: vital signs, nurses notes, EMS record, lab test result(s), EKG, radiologic studies, CT scan, plain films. Data interpreted: skills trainer: rate is 62 beats/min, rhythm is regular, Pulse oximetry: on room air is 98 %. Test interpretation: by ED physician or midlevel provider: ECG, plain radiologic studies. Counseling: I had a detailed discussion with the patient and/or guardian regarding: the historical points, exam findings, and any diagnostic results supporting the discharge/admit diagnosis, lab results, radiology results. 10/11 17:05 Order name: Basic Metabolic Panel; Complete Time: 18:41 [facility] 10/11 17:05 Order name: CBC with Diff; Complete Time: 18:41 [facility] 10/11 17:05 Order name: LFT's; Complete Time: 18:41 [facility] 10/11 17:05 Order name: Magnesium; Complete Time: 18:41 [facility] 10/11 17:05 Order name: NT PRO-BNP; Complete Time: 18:41 [facility] 10/11 17:05 Order name: PT-INR; Complete Time: 18:41 [facility] 10/11 17:05 Order name: Troponin HS; Complete Time: 18:41 [facility] 10/11 17:05 Order name: XRAY Chest (1 view); Complete Time: 18:41 [facility] 10/11 17:05 Order name: Lipase; Complete Time: 18:41 [facility] 10/11 17:05 Order name: Urine Culture [facility] 10/11 17:05 Order name: Lactate w/ 2H reflex if indic. [facility] 10/11 17:05 Order name: COVID-19/FLU A+B; Complete Time: 18:41 [facility] 10/11 17:21 Order name: Urine Dipstick-Ancillary; Complete Time: 17:25 [facility] 10/11 17:23 Order name: Urine Dipstick-Ancillary [facility] 10/11 17:05 Order name: EKG; Complete Time: 17:06 [facility] 10/11 17:05 Order name: Cardiac monitoring; Complete Time: 18:04 [facility] 10/11 17:05 Order name: EKG - Nurse/Tech; Complete Time: 18:04 [facility] 10/11 17:05 Order name: IV Saline Lock; Complete Time: 17:52 [facility] 10/11 17:05 Order name: Labs collected and sent; Complete Time: 17:52 [facility] 10/11 17:05 Order name: O2 Per Protocol; Complete Time: 18:04 [facility] 10/11 17:05 Order name: O2 Sat Monitoring; Complete Time: 18:04 [facility] 10/11 17:05 Order name: Urine Dipstick-Ancillary (obtain specimen); Complete Time: 17:27 [facility] 10/11 17:29 Order name: CT Abd/Pelvis - Without Contrast; Complete Time: 18:41 [facility] 10/11 17:57 Order name: PO challenge; Complete Time: 18:24 zo EC:17 Rate is 55 beats/min. Rhythm is regular. QRS [place] is Normal. [place] interval is normal. QRS zo interval is normal. QT interval is normal. No Q waves. T waves are Normal. No ST changes noted. Clinical impression: Abnormal EKG without significant change and Sinus bradycardia. Interpreted by me. Reviewed by me. Administered Medications: 18:04 Drug: NS 0.9% 1000 ml Route: IV; Rate: 1 bolus; Site: right forearm; em6 20:23 Follow up: Response: No adverse reaction; IV Status: Completed infusion; IV Intake: em6 1000ml 18:04 Drug: Zofran (Ondansetron) 4 mg Route: IVP; Site: right forearm; em6 18:35 Follow up: Response: No adverse reaction em6 18:04 Drug: Pepcid (famotidine) 20 mg Route: IVP; Site: right forearm; em6 18:35 Follow up: Response: No adverse reaction em6 18:34 Drug: Rocephin (cefTRIAXone) 1 grams Route: IV; Rate: per protocol; Site: right forearm;em6 19:00 Follow up: Response: No adverse reaction; IV Status: Completed infusion; IV Intake: [id number] Disposition Summary: 10/11/22 18:57 Hospitalization Ordered Hospitalization Status: Observation zo Provider: Randal Greene cha Location: Telemetry/MedSurg (observation) zo Condition: Fair zo Problem: new zo Symptoms: have improved zo Bed/Room Type: Standard [facility] Room Assignment: 230(10/11/22 20:31) eb1 Diagnosis - Weakness zo - Vomiting zo - Diarrhea, unspecified zo - Hydronephrosis with ureteral stricture, not elsewhere classified zo - UTI/ Urinary tract infection, site not specified zo Forms: - Medication Reconciliation Form zo - SBAR form zo Signatures: Dispatcher [employer] EDMatt Dejesus MD MD cha Basinger, Emily RN RN eb1 Julia Schmidt RN RN em6 Corrections: (The following items were deleted from the chart) 20: 18:57 zo eb1
--- NOTE | 2022-10-11 19:41 | P.HP ---
Certification for Inpatient Patient admitted to: Observation With expected LOS: <2 Midnights Patient will require the following post-hospital care: None Practitioner: I am a practitioner with admitting privileges, knowledge of patient current condition, hospital course, and medical plan of care. Services: Services provided to patient in accordance with Admission requirements found in Title 42 Section 412.3 of the Code of Federal Regulations Patient History Date of Service: 10/11/22 Reason for admission: N/V/D, UTI History of Present Illness: Patient is a 67 year old male with past medical history of hypertension, CVA, hyperlidemia, CKD, and COPD who presented to the ED via EMS with complaints of nausea, vomiting, and diarrhea that began this morning. Patient's home health believed that he was weaker than usual and wanted him to be evaluated. His labs are significant for BUN 21, Cr 1.66, BNP 203, urine positive for UTI. CT abdomen pelvis showed "Severe chronic left hydronephrosis. 4.8 centimeter cystic structure right kidney probably a parapelvic cyst. Hydronephrosis is considered less likely." He was given 1L fluid, zofran, pepcid, and rocephin in the ED. He states his symptoms have mildly improved. He is unsure what could have brought the symptoms on. Denies any fevers, melena, or hematemesis. ED provider wishes to admit patient for observation. Allergies No Known Allergies Allergy (Verified 12/23/20 16:33) Home Medications: Tamsulosin [Flomax*] 2 cap PO DAILY 03/19/20 Aspirin 81 mg PO BEDTIME 12/23/20 Atorvastatin Calcium [Lipitor] 1 tab PO DAILY 12/23/20 carvediloL [Coreg*] 12.5 mg PO BID 12/23/20 Clopidogrel Bisulfate [Plavix*] 75 mg PO DAILY #30 tablet 09/05/21 Donepezil HCl 10 mg PO DAILY 09/05/21 Folic Acid 1 mg PO DAILY #90 tablet 09/05/21 Memantine HCl 10 mg PO BID 09/05/21 Quetiapine [Seroquel*] 50 mg PO BEDTIME 09/05/21 levETIRAcetam [Keppra] 500 mg PO BID #60 tablet 09/05/21 Finasteride 5 mg PO DAILY 09/06/21 Amlodipine [Norvasc*] 5 mg PO DAILY #30 tab 09/08/21 - Past Medical/Surgical History Diabetic: No -: HTN -: Hyperlipidemia -: Chronic Kidney disease -: COPD -: History of Cocaine abuse -: Carotid Occlusive Disease -: History of CVA/TIA-no residual -: Chronic Hepatitis C -: Chronic Back pain -: Cervical Spondylosis -: UGI bleed -: Lt shoulder sx -: GI sx Psychosocial/ Personal History: . 8-Children. Has home health. - Family History Mother -: Hypertension Father -: Hypertension Brother -: Hypertension Sister -: Hypertension - Social History Smoking Status: Never smoker Alcohol use: Yes CD- Drugs: Yes Caffeine use: No Place of Residence: Home Review of Systems General: Weakness Gastrointestinal: Nausea, Vomiting, Diarrhea Physical Examination - Vital Signs Temperature: 97.8 F Blood Pressure: 140/72 Pulse: 62 Respirations: 18 Pulse Ox (%): 100 (room air) - Physical Exam General: Alert, In no apparent distress HEENT: Atraumatic, PERRLA, EOMI, Sclerae nonicteric Neck: Supple, 2+ carotid pulse no bruit, No LAD, Without JVD or thyroid abnormality Respiratory: Clear to auscultation bilaterally, Normal air movement Cardiovascular: Regular rate/rhythm, Normal S1 S2 Gastrointestinal: Normal bowel sounds, No tenderness Musculoskeletal: No tenderness Integumentary: No rashes Neurological: Normal speech, Sensation intact, Normal affect - Studies Laboratory Data (last 24 hrs) 10/11/22 17:45: PT 13.0 H, INR 1.18 10/11/22 17:45: WBC 8.60, Hgb 13.1 L, Hct 40.6, Plt Count 275 10/11/22 17:45: Sodium 137, Potassium 3.6, BUN 21 H, Creatinine 1.66 H, Glucose 106, Magnesium 2.2, Total Bilirubin 0.9, AST 14 L, ALT < 10 L, Alkaline Phosphatase 111, Lipase 182 Assessment and Plan - Problems (Diagnosis) (1) Gastroenteritis Current Visit: Yes Status: Acute (2) UTI (urinary tract infection) Current Visit: Yes Status: Acute Qualifiers: Urinary tract infection type: acute cystitis Hematuria presence: with hematuria Qualified Code(s): N30.01 - Acute cystitis with hematuria (3) CKD (chronic kidney disease) Current Visit: Yes Status: Chronic Qualifiers: Chronic kidney disease stage: stage 3 (moderate) Chronic kidney disease stage 3 subtype: stage 3b (GFR 30-44) Qualified Code(s): N18.32 - Chronic kidney disease, stage 3b (4) Hypertension Current Visit: Yes Status: Chronic Qualifiers: Hypertension type: primary hypertension Qualified Code(s): I10 - Essential (primary) hypertension - Plan Patient is admitted for observation. Will continue supportive measures with antiemetics and IV hydration. Continue rocephin for UTI. Follow urine culture. Physical therapy consult. Advance diet as tolerated. Monitor and replete electrolytes per protocol. Reconcile and continue home medications. Lovenox for VTE prophylaxis. Full code. Discharge Plan: Home Plan to discharge in: 24 Hours - Advance Directives Does patient have a Living Will: No Does patient have a Durable POA for Healthcare: No - Code Status/Comfort Care Code Status Assessed: Yes Code Status: Full Code Physician Review: Patient Assessed, Agree with Above Assessment and Plan Critical Care: No Time Spent Managing Pts Care (In Minutes): 50
[2022-10-11] MEDS ORDERED: ACETAMINOPHEN 325 MG TABLET PO PRN (21:40)
[2022-10-11] MEDS ORDERED: ONDANSETRON 4 MG/2 ML VIAL IV PRN (21:40)
[2022-10-11 22:10] VITALS: BMI 19.5
[2022-10-11] MEDS: NA CHLORIDE 0.9% 1,000 ML IV SCH (22:35)
[2022-10-12 03:53] LABS: Absolute Lymphocytes (CBC) 2.2 K/uL (0.7-4.9); Hematocrit 35.6 % (39.6-49.0); Lymphocytes % 26.9 % (15.3-44.8); MCV 83.2 fL (80-100); MPV 9.6 fL (7.6-11.3); RBC Red Blood Cell Count 4.28 M/uL (4.33-5.43)
[2022-10-12 04:12] LABS: Magnesium 2.1 mg/dL (1.6-2.4); Phosphorus 2.8 mg/dL (2.5-4.9); Potassium 3.6 mmol/L (3.5-5.1); Thyroid Stimulating Hormone 0.66 uIU/mL (0.358-3.740)
[2022-10-12] MEDS ORDERED: POTASSIUM CL SA 10 MEQ TAB PO ONE (04:18)
[2022-10-12] MEDS ORDERED: INFLUENZA VACCINE (for 6+ mo) 0.5 ML DOSE IMVAC ONE (08:00)
[2022-10-12] MEDS ORDERED: PNEUMOCOCCAL VACCINE 0.5 ML IMVAC ONE (08:00)
--- NOTE | 2022-10-12 08:03 | EKG ---
Test Date: 2022-10-11 Test Time: 17:58:28 Edi Developer: MEASUREMENT RESULTS: Intervals: Rate: 55 TX: 144 QRSD: 78 QT: 456 QTc: 436 [place]: P: 74 TX: 144 QRS: 50 T: 67 INTERPRETIVE STATEMENTS: Sinus bradycardia Increased R/S ratio in V1, consider early transition or posterior infarct Abnormal ECG Compared to ECG 04/01/2022 12:25:51 Myocardial infarct finding now present Sinus rhythm no longer present T-wave abnormality no longer present Electronically Signed On 10-12-22 08:01:42 [employer] by Kin Bennett
[2022-10-12] MEDS: ENOXAPARIN 40 MG/0.4 ML SQ SCH (10:14)
[2022-10-12] MEDS: NA CHLORIDE 0.9% 1,000 ML IV SCH (11:00)
--- NOTE | 2022-10-12 14:10 | P.PN ---
Subjective Date of Service: 10/12/22 Chief Complaint: N/V/D, UTI Patient states he feels better today. He denies any nausea, no vomiting. Also states the diarrhea has stopped. He denies abdominal pain. Physical Examination - Vital Signs Temperature: 97.1 F Blood Pressure: 163/79 Pulse: 67 Respirations: 14 Pulse Ox (%): 98 - Studies Laboratory Data (last 24 hrs) 10/11/22 17:45: PT 13.0 H, INR 1.18 10/11/22 17:45: WBC 8.60, Hgb 13.1 L, Hct 40.6, Plt Count 275 10/11/22 17:45: Sodium 137, Potassium 3.6, BUN 21 H, Creatinine 1.66 H, Glucose 106, Magnesium 2.2, Total Bilirubin 0.9, AST 14 L, ALT < 10 L, Alkaline Phosphatase 111, Lipase 182 Assessment And Plan - Current Problems (Diagnosis) (1) UTI (urinary tract infection) Current Visit: Yes Status: Acute Qualifiers: Urinary tract infection type: acute cystitis Hematuria presence: with hematuria Qualified Code(s): N30.01 - Acute cystitis with hematuria (2) Gastroenteritis Current Visit: Yes Status: Acute (3) Hydronephrosis, left Current Visit: Yes Status: Acute (4) Kidney cysts Current Visit: Yes Status: Acute (5) History of CVA (cerebrovascular accident) Current Visit: Yes Status: Acute (6) Chronic kidney disease (CKD) stage G3a/A2, moderately decreased glomerular filtration rate (GFR) between 45-59 mL/min/1.73 square meter and albuminuria creatinine ratio between 30-299 mg/g Current Visit: No Status: Acute (7) BPH (benign prostatic hyperplasia) Current Visit: Yes Status: Acute - Plan Physical Exam General: Alert, In no apparent distress HEENT: Atraumatic, PERRLA, EOMI, Sclerae nonicteric Neck: Supple, 2+ carotid pulse no bruit, No LAD, Without JVD or thyroid abnormality Respiratory: Clear to auscultation bilaterally, Normal air movement Cardiovascular: Regular rate/rhythm, Normal S1 S2 Gastrointestinal: Normal bowel sounds, No tenderness Musculoskeletal: No tenderness Integumentary: No rashes Neurological: Normal speech, Sensation intact, Normal affect Plan: Patient has clinically improved. Trial of clear liquid diet. Patient with complicated UTI. History of BPH with left hydronephrosis. He follows with urology Dr. Cruz as outpatient. Urine culture is growing gram-negative Continue IV Rocephin and follow urine culture. Continue home medications for BPH. Continue home medications for seizure disorder. Continue home medications for CVA. Activity as tolerated. Physician Review: Patient Assessed, Agree with Above Assessment and Plan
[2022-10-12] MEDS: AMLODIPINE 5 MG TAB PO SCH (14:12)
[2022-10-12] MEDS ORDERED: CEFTRIAXONE 1,000 MG in NA CHLORIDE 0.9% 50 ML IVPB SCH (18:00)
[2022-10-12] MEDS ORDERED: ATORVASTATIN 40 MG TAB PO SCH (21:00)
[2022-10-12] MEDS ORDERED: ASPIRIN 81 MG CHEWABLE TABLET PO SCH (21:00)
[2022-10-12] MEDS: carvediloL 12.5 MG TAB PO SCH (22:07)
[2022-10-12] MEDS: levETIRAcetam 500 MG TAB PO SCH (22:08)
[2022-10-12 23:16] VITALS: O2SAT 97
[2022-10-13 04:08] LABS: Absolute Lymphocytes (CBC) 2.7 K/uL (0.7-4.9); Hematocrit 33.4 % (39.6-49.0); Lymphocytes % 37.6 % (15.3-44.8); MCV 83.1 fL (80-100); MPV 9.6 fL (7.6-11.3); RBC Red Blood Cell Count 4.02 M/uL (4.33-5.43)
[2022-10-13] MEDS: NA CHLORIDE 0.9% 1,000 ML IV SCH (04:19)
[2022-10-13 04:27] LABS: Potassium 3.3 mmol/L (3.5-5.1)
[2022-10-13 08:31] VITALS: BP 113/55; TEMP 97.7
[2022-10-13] MEDS ORDERED: POTASSIUM CL SA 10 MEQ TAB PO ONE (09:00)
[2022-10-13] MEDS ORDERED: FINASTERIDE 5 MG TAB PO SCH (09:00)
[2022-10-13] MEDS ORDERED: TAMSULOSIN 0.4 MG SR CAP PO SCH (09:00)
[2022-10-13] MEDS: carvediloL 12.5 MG TAB PO SCH (09:22)
[2022-10-13] MEDS: AMLODIPINE 5 MG TAB PO SCH (09:23)
[2022-10-13] MEDS: levETIRAcetam 500 MG TAB PO SCH (09:23)
[2022-10-13] MEDS: ENOXAPARIN 40 MG/0.4 ML SQ SCH (09:23)
--- NOTE | 2022-10-13 10:55 | P.DS ---
Admission Date: 10/11/22 Discharge Date: 10/13/22 Disposition: [facility] HOME/HOME HEALTH CARE Discharge Condition: FAIR Reason for Admission: N/V/D, UTI - Problems (1) UTI (urinary tract infection) Current Visit: Yes Status: Acute Qualifiers: Urinary tract infection type: acute cystitis Hematuria presence: with hematuria Qualified Code(s): N30.01 - Acute cystitis with hematuria (2) Gastroenteritis Current Visit: Yes Status: Acute (3) Hydronephrosis, left Current Visit: Yes Status: Acute (4) Kidney cysts Current Visit: Yes Status: Acute (5) History of CVA (cerebrovascular accident) Current Visit: Yes Status: Acute (6) Chronic kidney disease (CKD) stage G3a/A2, moderately decreased glomerular filtration rate (GFR) between 45-59 mL/min/1.73 square meter and albuminuria creatinine ratio between 30-299 mg/g Current Visit: No Status: Acute (7) BPH (benign prostatic hyperplasia) Current Visit: Yes Status: Acute Brief History of Present Illness: Patient is a 67 year old male with past medical history of hypertension, CVA, hyperlidemia, CKD, and COPD who presented to the ED via EMS with complaints of nausea, vomiting, and diarrhea. Patient's home health believed that he was weaker than usual and wanted him to be evaluated. His labs are significant for BUN 21, Cr 1.66, BNP 203, urine positive for UTI. CT abdomen pelvis showed "Severe chronic left hydronephrosis. 4.8 centimeter cystic structure right kidney probably a parapelvic cyst. Hydronephrosis is considered less likely." He was given 1L fluid, zofran, pepcid, and rocephin in the ED. He states his symptoms have mildly improved. Patient admitted for further management. Hospital Course: Patient was placed on observation on the medical floor and treated for UTI with IV Rocephin. Urine culture grew pansensitive E. coli, given patient has history of BPH and hydronephrosis, was diagnosed with complicated UTI. Recommended at least 10 days of antibiotics. Patient follows with Dr. Cruz urology regarding his BPH/lower urinary tract obstruction. Patient has been able to tolerate diet. He is deemed stable for discharge. Vital Signs/Physical Exam: Temp Pulse Resp BP Pulse Ox 97.7 F 62 14 113/55 L 100 10/13/22 08:00 10/13/22 08:00 10/13/22 08:00 10/13/22 08:00 10/13/22 08:00 General: Alert, In no apparent distress Neck: JVD not distended Respiratory: Clear to auscultation bilaterally, Normal air movement Cardiovascular: Regular rate/rhythm, Normal S1 S2 Gastrointestinal: Soft and benign, Non-distended Musculoskeletal: No swelling Integumentary: No rashes Laboratory Data at Discharge: WBC 7.20 K/uL (4.3-10.9) 10/13/22 03:35 Hgb 10.8 g/dL (13.6-17.9) L 10/13/22 03:35 Hct 33.4 % (39.6-49.0) L 10/13/22 03:35 Plt Count 301 K/uL (152-406) 10/13/22 03:35 PT 13.0 SECONDS (9.5-12.5) H 10/11/22 17:45 INR 1.18 10/11/22 17:45 Sodium 137 mmol/L (136-145) 10/13/22 03:35 Potassium 3.3 mmol/L (3.5-5.1) L 10/13/22 03:35 BUN 16 mg/dL (7-18) 10/13/22 03:35 Creatinine 1.41 mg/dL (0.70-1.30) H 10/13/22 03:35 Glucose 78 mg/dL (74-106) 10/13/22 03:35 Phosphorus 2.8 mg/dL (2.5-4.9) 10/12/22 03:01 Magnesium 2.1 mg/dL (1.6-2.4) 10/12/22 03:01 Total Bilirubin 0.9 mg/dL (0.2-1.0) 10/11/22 17:45 AST 14 U/L (15-37) L 10/11/22 17:45 ALT < 10 U/L (16-61) L 10/11/22 17:45 Alkaline Phosphatase 111 U/L (45-117) 10/11/22 17:45 Triglycerides 78 mg/dL (<150) 10/12/22 03:01 Cholesterol 93 mg/dL (<200) 10/12/22 03:01 HDL Cholesterol 37 mg/dL (40-60) L 10/12/22 03:01 Cholesterol/HDL Ratio 2.51 10/12/22 03:01 Lipase 182 U/L (73-393) 10/11/22 17:45 Home Medications: Tamsulosin [Flomax*] 2 cap PO DAILY 03/19/20 Aspirin 81 mg PO BEDTIME 12/23/20 Atorvastatin Calcium [Lipitor] 1 tab PO DAILY 12/23/20 carvediloL [Coreg*] 12.5 mg PO BID 12/23/20 Clopidogrel Bisulfate [Plavix*] 75 mg PO DAILY #30 tablet 09/05/21 Donepezil HCl 10 mg PO DAILY 09/05/21 Folic Acid 1 mg PO DAILY #90 tablet 09/05/21 Memantine HCl 10 mg PO BID 09/05/21 Quetiapine [Seroquel*] 50 mg PO BEDTIME 09/05/21 levETIRAcetam [Keppra] 500 mg PO BID #60 tablet 09/05/21 Finasteride 5 mg PO DAILY 09/06/21 Amlodipine [Norvasc*] 5 mg PO DAILY #30 tab 09/08/21 Ciprofloxacin HCl [Cipro] 500 mg PO BID #20 tab 10/13/22 New Medications: Ciprofloxacin HCl [Cipro] 500 mg PO BID #20 tab Followup: Arnoldo Real DO [Primary Care Provider] - 1-2 Weeks
== END 2022-10-13 10:53 | disposition home health service (06) ==
LOC: ER 16:55 → ERHOLD 20:05 → 2ND 20:50
PROVIDERS: ADMIT Internal Medicine; ATTEND Internal Medicine
DX: K52.9 Noninfective gastroenteritis and colitis, unspecified (principal); N30.01 Acute cystitis with hematuria; B96.20 Unspecified Escherichia coli [E. coli] as the cause of diseases classified elsewhere; E78.5 Hyperlipidemia, unspecified; N18.32 Chronic kidney disease, stage 3b; I10 Essential (primary) hypertension; Z86.73 Personal history of transient ischemic attack (TIA), and cerebral infarction without residual deficits; N13.30 Unspecified hydronephrosis; N28.1 Cyst of kidney, acquired; N40.0 Benign prostatic hyperplasia without lower urinary tract symptoms; Z20.822 Contact with and (suspected) exposure to COVID-19; Z23 Encounter for immunization
CPT/HCPCS: 96365; 96361; 93005; 87088; 85025 ×3; 87086; 80048 ×3; 36415 ×2; 83735 ×2; 84100; 85610; 80061; 80076; 83605; 84443; 87077; 87186; 81003; 84484; 83690; 83880; 0240U; 74176; 71045; 97116; 97161; 97530; 94760 ×3; 96375; 99285; J1650 ×2; J7030 ×4; J2405

== ENCOUNTER 2022-10-23 11:27 | Inpatient (IN) | payer OTHER ==
--- OUTSIDE RECORDS SUMMARY | 2022-10-23 11:33 | XMS REPORT | Continuity of Care Document ---
:1955 Author Organization [facility] t Address [address] [place] [address] Care Team Providers Name Role Phone Unknown, Physician Primary Care Physician Unavailable Barrie Real Attending Clinician Unavailable Javier Weinstein Rahil Attending Clinician Unavailable [id number] Attending Clinician Unavailable JAVIER WEINSTEIN Attending Clinician [...] Unavailable Javier Weinstein Rahil Admitting Clinician Unavailable [id number] Admitting Clinician Unavailable BARRIE REAL Admitting Clinician Unavailable JAZZ ALAMO Admitting Clinician Unavailable ROBERT REYESEEN Admitting Clinician Unavailable [id number]_J_AH Admitting Clinician Unavailable Payers Payer Name Policy Type Policy Number Effective Date Expiration Date S mendez HUMANA [id number] 2022 00:00:00 HUMM HUMM [id number] [employer] MEDICARE 53 [id number] 2022 [facility] nimco 00:00:00 - [facility] HUMANA MEDICARE 53 [id number] 2020 Common [facility] nimco 00:00:00 - [facility] [id number] [facility] [id number] [facility] [employer] (MEDICARE REPLACEMENT/ADV ANTAGE - HMO) Problems Condition Condition Condition Status Onset Resolution Last Treating Co mments Source Name Details Category Date Date Treatment Clinician Date Hemiplegia Hemiparesi Problem C ommon of s of right Spirit dominant dominant - [facility] side as side as St late late 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 disease, Medical stage 3 Vivian [id number] Tobacco Problem Commo n abuse Spirit counseling - [facility]I [facility] Chronic Chronic Problem Common obstructiv obstructiv Sp nimco e e - CHI pulmonary pulmonary [facility] unspecifie Medica l d Vivian [id number] Hyperlipid Problem Com mon emia, Spirit unspecifie - CHI d hyperlipid [facility] emia type Medical Vivian [id number] [facility] Problem Com mon (current) Spirit use [facility] - [facility] platelets Medical Vivian [id number] Cerebrovas Problem Co mmon cular Spirit accident - CH[facility] (CVA) of [facility] right [facility] [id number] NPH Problem Common (normal Spirit pressure - [facility]I hydrocepha [facility]) [facility] Chronic Other Problem Common pain chronic Spirit pain - [facility] [id number] Dysuria Problem Common Spirit [facility] Eruption Groin rash Problem Com mon of skin Spirit [facility] [id number] Bloody Problem Common drainage Spirit from penis - CHI [facility] [id number] Urinary Problem Common hesitancy [facility] [id number] Hematuria, Problem Com mon unspecifie Spirit d type - CHI [facility] [id number] Urinary Problem Commo n incontinen Spirit ce, - [facility]I unspecifie [facility] Chronic Hypertensi Problem Comm on kidney ve CKD Spirit disease (chronic - CHI due to kidney St hypertensi disease) [facility] [id number] Agitation Problem Com mon Spirit - CHI [facility] [id number] Ataxic Problem Common gait [facility] [id number] Depression Problem Co mmon with Spirit anxiety - CHI [facility] [id number] Vascular Problem Com mon [id number] dementia Spirit without - CHI behavioral 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 - CHI , single [facility] [id number] BPH loc w Problem Com mon urin Spirit obs/LUTS - CHI [facility] Allergies, Adverse Reactions, Alerts Allergy Allergy Status Severity Reaction(s) Onset Inactive Treating Comm ents Source Name Type Date Date Clinician NKA Allergy Active ENCCLR 05-22 12:30: 40 NKA Allergy Active ENCCLR 05-22 12:30: 40 NKA Allergy Active ENCCLR 05-22 12:30: 40 No Known DA Active [facility] 2[facility]11 [place] [facility] 00:00: d 00 [facility] No Known DA Active U [facility] All[facility]ie 2-11 [facility] 00:[facility]: d 00 [facility] Social History Social Habit Start Date Stop Date Quantity Comments Source History of Tobacco Current Smoker Co mmon Spirit - Use [facility] Sex Assigned At Common Sp nimco - [facility] Exposure to 2022-05-26 2022-06-05 Not sure [facility] SARS-CoV-2 (event) 00:00:00 13:46:00 Smoking Status Start Date Stop Date Source Ex-smoker [facility] Current Smoker 2022-10-13 00:00:00 [facility] Spiri t [facility] Medications Ordered Filled Start Stop Current Ordering Indication Dosage Frequency Signature Comments Components Source Medication Medication Date Date Medication? Clinician (SIG) Name Name navin-l 2022- No [id number] 1{tbl} [id number] Take 1 UT evodopa 06-05 [id number] tablet by Health (Sinemet) 00:00: 04:59 3D mouth in 25-100 MG 00 :00 the tablet morning and 1 tablet at noon and 1 tablet in the evening. levETIRAcet Yes [id number] 500mg Q.5D Take 1 UT am (Keppra) 7-09 tablet Health 500 MG 00:00: (500 mg tablet 00 total) by mouth in the morning and 1 tablet (500 mg total) in the evening. memantine Yes [id number] 10mg Q.5D Take 1 UT (Namenda) 7-09 tablet (10 Heal th 10 MG 00:00: mg total) tablet 00 by mouth in the morning and 1 tablet (10 mg total) in the evening. levETIRAcet Yes [id number] 500mg Q.5D Take 1 UT am (Keppra) 7-09 tablet Health 500 MG 00:00: (500 mg tablet 00 total) by mouth in the morning and 1 tablet (500 mg total) in the evening. memantine Yes [id number] 10mg Q.5D Take 1 UT (Namenda) 7-09 tablet (10 Heal th 10 MG 00:00: mg total) tablet 00 by mouth in the morning and 1 tablet (10 mg total) in the evening. levETIRAcet 2021-0 Yes [id number] 500mg Q.5D Take 1 UT am (Keppra) 7-09 tablet Health 500 MG 00:00: (500 mg tablet 00 total) by mouth in the morning and 1 tablet (500 mg total) in the evening. memantine 2021-0 Yes [id number] 10mg Q.5D Take 1 UT (Namenda) 7-09 [...] tablet sulfamethox 2020-10 Yes UT azole-trime 10-29 [facility] thoprim 00:00: (Bactrim 00 DS) 800-160 [...] Calcium 40 MG 40 MG 40 MG Carbidopa-L Carbidopa-L No 1{table TID Carbidopa- evodopa evodopa t} Levodopa 10-100 MG 10-100 MG 10-100 MG Clopidogrel Clopidogrel No Clopidogre Bisulfate Bisulfate l 75 mg 75 mg Bisulfate 75 mg Flomax 0.4 Flomax 0.4 No 2{capsu QD Flomax 0.4 MG MG les} MG Albuterol Albuterol No 3{ml_as QID Albuterol Sulfate Sulfate _needed Sulfate (2.5 (2.5 } (2.5 MG/3ML) MG/3ML) MG/3ML) 0.083% 0.083% 0.083% Coreg 3.125 Coreg 3.125 No QD Coreg MG MG 3.125 MG Folic Acid Folic Acid No 1{table QD Folic Acid 1 MG 1 MG t} 1 MG Fluticasone Fluticasone No 1{puff} QD Fluticason Furoate-Silver Furoate-Silver e anterol anterol Furoate-Vi 100-25 100-25 lanterol MCG/INH MCG/INH 100-25 MCG/INH amLODIPine amLODIPine No 1{table QD amLODIPine Besylate 10 Besylate 10 t} Besylate MG MG 10 MG Atorvastati Atorvastati No 1{table QD Atorvastat n Calcium n Calcium t} in Calcium 40 MG 40 MG 40 MG Atorvastati Atorvastati No Atorvastat n Calcium n Calcium in Calcium 40 MG 40 MG 40 MG Aricept 10 Aricept 10 No 1{table QD Aricept 10 MG MG t_at_be MG dtime} Coreg 12.5 Coreg 12.5 No 1{table QD Coreg 12.5 MG MG t_with_ MG food} Aspirin 81 Aspirin 81 No 1{table QD Aspirin 81 81 MG 81 MG t} 81 MG Ventolin Ventolin No 2{puffs QID Ventolin HFA 108 (90 HFA 108 (90 _as_nee HFA 108 Base) Base) ded} (90 Base) MCG/ACT MCG/ACT MCG/ACT Clopidogrel Clopidogrel No 1{table QD Clopidogre Bisulfate Bisulfate t} l 75 MG 75 MG Bisulfate 75 MG Tamsulosin Tamsulosin No Tamsulosin HCl 0.4 MG HCl 0.4 MG HCl 0.4 MG Coreg 3.125 Coreg 3.125 No QD [...] Date Status Commen ts Source Name Name [place] [id number] 2021-09-28 Completed Co mmon Spirit Vaccine (Low Dose Vaccine (Low Dose 14:33:00 - [facility] Booster) [place] [id number] 2021-09-28 Completed Co mmon [facility] Vaccine (Low Dose Vaccine (Low Dose 14:33:00 - [facility] Booster) Booster) [place] [address] 2021-09-28 Completed Co mmon [facility] Vaccine (Low Dose Vaccine (Low Dose 14:33:00 - [facility] Booster) Booster) [place] [address] 2021-09-28 Completed Co mmon [facility] Vaccine (Low Dose Vaccine (Low Dose 14:33:00 [facility] [address] [facility] 2021-09-28 Completed Co mmon [facility] Vaccine (Low Dose Vaccine (Low Dose 14:33:00 - [facility] Booster[facility] Booster) [address] [facility] 2021-09-28 Completed Co mmon [facility] Vaccine (Low Dose Vaccine (Low Dose 14:33:00 - [facility] Booster[facility] Booster) [address] [facility] 2021-09-28 Completed Co mmon [facility] Vaccine (Low Dose Vaccine (Low Dose 14:33:00 [facility] Booster) [address] 2021-09-28 Completed Co mmon [facility] Vaccine (Low Dose Vaccine (Low Dose 14:33:00 [facility] [facility] 2021-09-28 Completed Co mmon [facility] Vaccine (Low Dose Vaccine (Low Dose 14:33:00 [facility] [facility] 2021-09-28 Completed Co mmon [facility] Vaccine (Low Dose Vaccine (Low Dose 14:33:00 [facility] [facility] 2021-09-28 Completed Co mmon [facility] Vaccine (Low Dose Vaccine (Low Dose 14:33:00 [facility] Booster[facility] [address] [facility] 2021-09-28 Completed Co mmon [facility] Vaccine (Low Dose Vaccine (Low Dose 14:33:00 [facility] Booster[facility] 2021-09-28 Completed Co mmon [facility] Vaccine (Low Dose Vaccine (Low Dose 14:33:00 [facility] [facility] 2021-09-28 Completed Co mmon [facility] Vaccine (Low Dose Vaccine (Low Dose 14:33:00 - [facility] Booster) Booster) [facility] FLUZONE HIGH DOSE FLUZONE HIGH DOSE 2021-08-28 Completed [facility] OVER 65 OVER 65 15:01:00 [facility] FLUZONE HIGH DOSE FLUZONE HIGH DOSE 2021-08-28 Completed [facility] OVER 65 OVER 65 15:01:00 [facility] FLUZONE HIGH DOSE FLUZONE HIGH DOSE 2021-08-28 Completed [facility] OVER 65 OVER 65 15:01:00 [facility] FLUZONE HIGH DOSE FLUZONE HIGH DOSE 2021-08-28 Completed [facility] OVER 65 OVER 65 15:01:00 [facility] FLUZONE HIGH DOSE FLUZONE HIGH DOSE 2021-08-28 Completed [facility] OVER 65 OVER 65 15:01:00 [facility] FLUZONE HIGH DOSE FLUZONE HIGH DOSE 2021-08-28 Completed [facility] OVER 65 OVER 65 15:01:00 - [facility] FLUZONE HIGH DOSE FLUZONE HIGH DOSE 2021-08-28 Completed [facility] OVER 65 OVER 65 15:01:00 - [facility] FLUZONE HIGH DOSE FLUZONE HIGH DOSE 2021-08-28 Completed [facility] OVER 65 OVER 65 15:01:00 - [facility] FLUZONE HIGH DOSE FLUZONE HIGH DOSE 2021-08-28 Completed [facility] OVER 65 OVER 65 15:01:00 - [facility] FLUZONE HIGH DOSE FLUZONE HIGH DOSE 2021-08-28 Completed [facility] OVER 65 OVER 65 15:01:00 - [facility] FLUZONE HIGH DOSE FLUZONE HIGH DOSE 2021-08-28 Completed [facility] OVER 65 OVER 65 15:01:00 - [facility] FLUZONE HIGH DOSE FLUZONE HIGH DOSE 2021-08-28 Completed [facility] OVER 65 OVER 65 15:01:00 - [facility] FLUZONE HIGH DOSE FLUZONE HIGH DOSE 2021-08-28 Completed [facility] OVER 65 OVER 65 15:01:00 - [facility] FLUZONE HIGH DOSE FLUZONE HIGH DOSE 2021-08-28 Completed [facility] OVER 65 OVER 65 15:01:00 - [facility] Moderna COVID-19 Moderna COVID-19 2021-01-04 Completed Co mmon [facility] Vaccine Vaccine 14:35:00 - [facility] Moderna COVID-19 Moderna COVID-19 2021-01-04 Completed Co mmon [facility] Vaccine Vaccine 14:35:00 - [facility] Moderna COVID-19 Moderna COVID-19 2021-01-04 Completed Co mmon [facility] Vaccine Vaccine 14:35:00 [facility] Moderna COVID-19 Moderna COVID-19 2021-01-04 Completed Co mmon [facility] Vaccine Vaccine 14:35:00 - [facility] Moderna COVID-19 Moderna COVID-19 2021-01-04 Completed Co mmon [facility] Vaccine Vaccine 14:35:00 - [facility] Moderna COVID-19 Moderna COVID-19 2021-01-04 Completed Co mmon [facility] Vaccine Vaccine 14:35:00 - [facility] Moderna COVID-19 Moderna COVID-19 2021-01-04 Completed Co mmon [facility] Vaccine Vaccine 14:35:00 - [facility] Moderna COVID-19 Moderna COVID-19 2021-01-04 Completed Co mmon [facility] Vaccine Vaccine 14:35:00 - [facility] Moderna COVID-19 Moderna COVID-19 2021-01-04 Completed Co mmon [facility] Vaccine Vaccine 14:35:00 - [facility] Moderna COVID-19 Moderna COVID-19 2021-01-04 Completed Co mmon [facility] Vaccine Vaccine 14:35:00 - [facility] Moderna COVID-19 Moderna COVID-19 2021-01-04 Completed Co mmon [facility] Vaccine Vaccine 14:35:00 - [facility] Moderna COVID-19 Moderna COVID-19 2021-01-04 Completed Co mmon [facility] Vaccine Vaccine 14:35:00 - [facility] Moderna COVID-19 Moderna COVID-19 2021-01-04 Completed Co mmon [facility] Vaccine Vaccine 14:35:00 - [facility] Moderna COVID-19 Moderna COVID-19 2021-01-04 Completed Co mmon [facility] Vaccine Vaccine 14:35:00 - [facility] Moderna COVID-19 Moderna COVID-19 2020-12-03 Completed Co mmon [facility] Vaccine Vaccine 14:34:00 - [facility] Moderna COVID-19 Moderna COVID-19 2020-12-03 Completed Co mmon [facility] Vaccine Vaccine 14:34:00 - [facility] Moderna COVID-19 Moderna COVID-19 2020-12-03 Completed Co mmon [facility] Vaccine Vaccine 14:34:00 - [facility] Moderna COVID-19 Moderna COVID-19 2020-12-03 Completed Co mmon [facility] Vaccine Vaccine 14:34:00 - [facility] Moderna COVID-19 Moderna COVID-19 2020-12-03 Completed Co mmon [facility] Vaccine Vaccine 14:34:00 - [facility] Moderna COVID-19 Moderna COVID-19 2020-12-03 Completed Co mmon [facility] Vaccine Vaccine 14:34:00 - [facility] Moderna COVID-19 Moderna COVID-19 2020-12-03 Completed Co mmon [facility] Vaccine Vaccine 14:34:00 - [facility] Moderna COVID-19 Moderna COVID-19 2020-12-03 Completed Co mmon [facility] Vaccine Vaccine 14:34:00 - [facility] Moderna COVID-19 Moderna COVID-19 2020-12-03 Completed Co mmon [facility] Vaccine Vaccine 14:34:00 - [facility] Moderna COVID-19 Moderna COVID-19 2020-12-03 Completed Co mmon [facility] Vaccine Vaccine 14:34:00 - [facility] Moderna COVID-19 Moderna COVID-19 2020-12-03 Completed Co mmon [facility] Vaccine Vaccine 14:34:00 - [facility] Moderna COVID-19 Moderna COVID-19 2020-12-03 Completed Co mmon [facility] Vaccine Vaccine 14:34:00 - [facility] Moderna COVID-19 Moderna COVID-19 2020-12-03 Completed Co mmon [facility] Vaccine Vaccine 14:34:00 - [facility] Moderna COVID-19 Moderna COVID-19 2020-12-03 Completed Co mmon [facility] Vaccine Vaccine 14:34:00 [facility] FLUZONE HIGH DOSE FLUZONE HIGH DOSE 2020-07-15 Completed [facility] OVER 65 OVER 65 10:07:00 [facility] FLUZONE HIGH DOSE FLUZONE HIGH DOSE 2020-07-15 Completed [facility] OVER 65 OVER 65 10:07:00 [facility] FLUZONE HIGH DOSE FLUZONE HIGH DOSE 2020-07-15 Completed [facility] OVER 65 OVER 65 10:07:00 [facility] FLUZONE HIGH DOSE FLUZONE HIGH DOSE 2020-07-15 Completed [facility] OVER 65 OVER 65 10:07:00 [facility] FLUZONE HIGH DOSE FLUZONE HIGH DOSE 2020-07-15 Completed [facility] OVER 65 OVER 65 10:07:00 - [facility] FLUZONE HIGH DOSE FLUZONE HIGH DOSE 2020-07-15 Completed [facility] OVER 65 OVER 65 10:07:00 - [facility] FLUZONE HIGH DOSE FLUZONE HIGH DOSE 2020-07-15 Completed [facility] OVER 65 OVER 65 10:07:00 - [facility] FLUZONE HIGH DOSE FLUZONE HIGH DOSE 2020-07-15 Completed [facility] OVER 65 OVER 65 10:07:00 - [facility] FLUZONE HIGH DOSE FLUZONE HIGH DOSE 2020-07-15 Completed [facility] OVER 65 OVER 65 10:07:00 - [facility] FLUZONE HIGH DOSE FLUZONE HIGH DOSE 2020-07-15 Completed [facility] OVER 65 OVER 65 10:07:00 - [facility] FLUZONE HIGH DOSE FLUZONE HIGH DOSE 2020-07-15 Completed [facility] OVER 65 OVER 65 10:07:00 - [facility] FLUZONE HIGH DOSE FLUZONE HIGH DOSE 2020-07-15 Completed [facility] OVER 65 OVER 65 10:07:00 - [facility] FLUZONE HIGH DOSE FLUZONE HIGH DOSE 2020-07-15 Completed [facility] OVER 65 OVER 65 10:07:00 - [facility] FLUZONE HIGH DOSE FLUZONE HIGH DOSE 2020-07-15 Completed [facility] OVER 65 OVER 65 10:07:00 - [facility] FLUZONE HIGH DOSE FLUZONE HIGH DOSE 2019-08-13 Completed [facility] OVER 65 OVER 65 14:41:00 - [facility] FLUZONE HIGH DOSE FLUZONE HIGH DOSE 2019-08-13 Completed [facility] OVER 65 OVER 65 14:41:00 - [facility] FLUZONE HIGH DOSE FLUZONE HIGH DOSE 2019-08-13 Completed [facility] OVER 65 OVER 65 14:41:00 - [facility] FLUZONE HIGH DOSE FLUZONE HIGH DOSE 2019-08-13 Completed [facility] OVER 65 OVER 65 14:41:00 - [facility] FLUZONE HIGH DOSE FLUZONE HIGH DOSE 2019-08-13 Completed [facility] OVER 65 OVER 65 14:41:00 - [facility] FLUZONE HIGH DOSE FLUZONE HIGH DOSE 2019-08-13 Completed [facility] OVER 65 OVER 65 14:41:00 - [facility] FLUZONE HIGH DOSE FLUZONE HIGH DOSE 2019-08-13 Completed [facility] OVER 65 OVER 65 14:41:00 - [facility] FLUZONE HIGH DOSE FLUZONE HIGH DOSE 2019-08-13 Completed [facility] OVER 65 OVER 65 14:41:00 - [facility] FLUZONE HIGH DOSE FLUZONE HIGH DOSE 2019-08-13 Completed [facility] OVER 65 OVER 65 14:41:00 - [facility] FLUZONE HIGH DOSE FLUZONE HIGH DOSE 2019-08-13 Completed [facility] OVER 65 OVER 65 14:41:00 - [facility] FLUZONE HIGH DOSE FLUZONE HIGH DOSE 2019-08-13 Completed [facility] OVER 65 OVER 65 14:41:00 - [facility] FLUZONE HIGH DOSE FLUZONE HIGH DOSE 2019-08-13 Completed [facility] OVER 65 OVER 65 14:41:00 - [facility] FLUZONE HIGH DOSE FLUZONE HIGH DOSE 2019-08-13 Completed [facility] OVER 65 OVER 65 14:41:00 - [facility] FLUZONE HIGH DOSE FLUZONE HIGH DOSE 2019-08-13 Completed [facility] OVER 65 OVER 65 14:41:00 - [facility] FLUZONE HIGH DOSE FLUZONE HIGH DOSE 2018-08-15 Completed [facility] OVER 65 OVER 65 11:52:00 - [facility] FLUZONE HIGH DOSE FLUZONE HIGH DOSE 2018-08-15 Completed [facility] OVER 65 OVER 65 11:52:00 - [facility] FLUZONE HIGH DOSE FLUZONE HIGH DOSE 2018-08-15 Completed [facility] OVER 65 OVER 65 11:52:00 - [facility] FLUZONE HIGH DOSE FLUZONE HIGH DOSE 2018-08-15 Completed [facility] OVER 65 OVER 65 11:52:00 - [facility] FLUZONE HIGH DOSE FLUZONE HIGH DOSE 2018-08-15 Completed [facility] OVER 65 OVER 65 11:52:00 - [facility] FLUZONE HIGH DOSE FLUZONE HIGH DOSE 2018-08-15 Completed [facility] OVER 65 OVER 65 11:52:00 - [facility] FLUZONE HIGH DOSE FLUZONE HIGH DOSE 2018-08-15 Completed [facility] OVER 65 OVER 65 11:52:00 - [facility] FLUZONE HIGH DOSE FLUZONE HIGH DOSE 2018-08-15 Completed [facility] OVER 65 OVER 65 11:52:00 - [facility] FLUZONE HIGH DOSE FLUZONE HIGH DOSE 2018-08-15 Completed [facility] OVER 65 OVER 65 11:52:00 - [facility] FLUZONE HIGH DOSE FLUZONE HIGH DOSE 2018-08-15 Completed [facility] OVER 65 OVER 65 11:52:00 - [facility] FLUZONE HIGH DOSE FLUZONE HIGH DOSE 2018-08-15 Completed [facility] OVER 65 OVER 65 11:52:00 - [facility] FLUZONE HIGH DOSE FLUZONE HIGH DOSE 2018-08-15 Completed [facility] OVER 65 OVER 65 11:52:00 - [facility] FLUZONE HIGH DOSE FLUZONE HIGH DOSE 2018-08-15 Completed [facility] OVER 65 OVER 65 11:52:00 - [facility] FLUZONE HIGH DOSE FLUZONE HIGH DOSE 2018-08-15 Completed [facility] OVER 65 OVER 65 11:52:00 - [facility] Vital Signs Vital Name Observation Time Observation Value Comments Source height 2022-10-18 08:00:00 71 [in_i] [facility] weight 2022-10-18 08:00:00 152 [lb_av] [facility] temperature 2022-10-18 08:00:00 97.4 [degF] [facility] bmi 2022-10-18 08:00:00 21.2 kg/m2 [facility] blood pressure 2022-10-18 08:00:00 125 mm[Hg] [facility] - systolic [facility] blood pressure 2022-10-18 08:00:00 70 mm[Hg] [facility] - diastolic [facility] height 2022-07-05 16:00:00 71 [in_i] [facility] weight 2022-07-05 16:00:00 150 [lb_av] [facility] temperature 2022-07-05 16:00:00 98 [degF] [facility] - [facility] bmi 2022-07-05 16:00:00 20.92 kg/m2 [facility] - [facility] blood pressure 2022-07-05 16:00:00 119 mm[Hg] [facility] - systolic [facility] blood pressure 2022-07-05 16:00:00 75 mm[Hg] [facility] - diastolic [facility] height 2022-07-05 15:30:00 71 [in_i] [facility] weight 2022-07-05 15:30:00 150 [lb_av] [facility] temperature 2022-07-05 15:30:00 98 [degF] [facility] - [facility] bmi 2022-07-05 15:30:00 20.92 kg/m2 [facility] - [facility] blood pressure 2022-07-05 15:30:00 119 mm[Hg] [facility] - systolic [facility] blood pressure 2022-07-05 15:30:00 75 mm[Hg] [facility] - diastolic [facility] height 2022-05-31 16:20:00 71 [in_i] [facility] weight 2022-05-31 16:20:00 150.0 [lb_av] [facility] - [facility] temperature 2022-05-31 16:20:00 98.2 [degF] [facility] - [facility] bmi 2022-05-31 16:20:00 20.92 kg/m2 [facility]-31 16:20:00 97 % [facility] rate 2022-05-31 16:20:00 18 /min Comm on [facility] blood pressure 2022-05-31 16:20:00 122 mm[Hg] [facility] - systolic [facility] blood pressure 2022-05-31 16:20:00 58 mm[Hg] Common [facility] - diastolic [facility] Systolic blood 2022-04-11 18:12:00 153 mm[Hg] [facility] Diastolic blood 2022-04-11 18:12:00 69 mm[Hg] [facility] pressure Heart rate 2022-04-11 18:12:00 71 /min [facility] height 2022-03-22 13:00:00 71 [in_i] [facility] weight 2022-03-22 13:00:00 150 [lb_av] [facility] temperature 2022-03-22 13:00:00 98.2 [degF] [facility] bmi 2022-03-22 13:00:00 20.92 kg/m2 [facility] oximetry 2022-03-22 13:00:00 99 % [facility] respiratory rate 2022-03-22 13:00:00 17 /min Comm on [facility] blood pressure 2022-03-22 13:00:00 90 mm[Hg] Common [facility] - systolic [facility] blood pressure 2022-03-22 13:00:00 54 mm[Hg] Common [facility] - diastolic [facility] Procedures Procedure Date / Time Performed Performing Clinician [facility] e HEAVY METALS SCREEN, URINE 2022-04-18 20:15:00 Lewis Mccarty [facility] VITAMIN B12 2022-04-14 00:00:00 Lewis Mccarty [facility] TSH 2022-04-14 00:00:00 Lewis Mccarty [facility] COPPER 2022-04-14 00:00:00 Lewis Mccarty [facility] Encounters Start End Encounter Admission Attending Care Care Encounter Source Date/Time Date/Time Type Type Clinicians Facility Department ID 2022-10-16 [facility] [id number] Common 08:41:01 [facility] [id number] [facility] 2022-08-11 Outpatient [facility] [id number] MS 13:29:47 [id number] Health 2022-07-18 Outpatient RealAYAAN rodriguez STLMLC Common 11:13:04 Barrie [facility] 2022-07-13 Outpatient Real, STLMLC STLMLC [id number] Common 14:05:03 Barrie [facility] 2022-07-06 Outpatient Real, STLMLC STLMLC Common 15:56:01 Barrie [facility] 2022-06-01 Outpatient Real, STLMLC STLMLC Common 14:08:02 Barrie [facility] 2022-04-13 Outpatient Real, STLMLC STLMLC Common 15:18:02 Barrie [facility] 2022-03-22 Outpatient Real, STLMLC STLMLC Common 13:05:02 Barrie [facility] 2022-03-13 Outpatient 3 Js ENCPL CVA [id number] [facility] 09:23:09 Javier 0516 [facility] 2022-03-07 Outpatient 3 Js ENCPL CVA [id number] [facility] 10:47:49 Javier 0510 [facility] 2022-03-06 Outpatient 3 [id number] ENCPL REF [id number] [facility] 11:03:26 0509 [facility] 2020-12-11 Inpatient HCAPM HCAPM [id number] [facility] 23:40:36 84 [facility] 2022-10-18 2022-10-18 OFFICE STLMLC STLMLC [id number] Co mmon 00:00:00 00:00:00 VISIT [facility] LEVEL 4 [facility] 2022-08-28 2022-08-28 (TEL) STLMLC STLMLC [id number] Co mmon 00:00:00 00:00:00 [facility] 2022-08-15 2022-08-15 (TEL) STLMLC STLMLC [id number] Co mmon 00:00:00 00:00:00 [facility] 2022-05-22 2022-07-20 Outpatient NASRIN WEINSTEIN, ENCCLR ENCCLR [id number] ENCCLR 00:00:00 00:00:00 ADMISSION JAVIER 2022-07-05 2022-07-05 OFFICE STLMLC STLMLC [id number] Co mmon 00:00:00 00:00:00 VISIT Spirit ESTAB PT - CHI LEVEL 4 [facility] 2022-07-05 2022-07-05 SUB ANNUAL STLC STLC [id number] Common 00:00:00 00:00:00 MCR [facility] WELLNESS - CHI VISIT [facility] 2022-07-05 2022-07-05 (TEL) STLMLC STLMLC [id number] Co mmon 00:00:00 00:00:00 Spirit CHI [facility] 2022-06-05 2022-06-05 Office JesusRILEY BBSViola [id number] [place] 14:00:00 14:18:23 Visit Shashi 350.1.13.58 He alth 9.2.7.2.686 [id number] 2022-06-02 2022-06-02 Telephone JesusRILEY BBSViola [id number] [place] 00:00:00 00:00:00 Shashi 350.1.13.58 He alth 9.2.7.2.686 [id number] 6 2022-05-31 2022-05-31 [facility] STLC [id number] Co mmon 00:00:00 00:00:00 VISIT [facility] PT - CHI LEVEL 4 [facility] 2022-05-26 2022-05-26 Outpatient TOBI [facility] [id number] [facility] 10:50:00 23:59:00 LEWIS 2022-05-23 2022-05-23 (TEL) STLMLC STLMLC [id number] Co mmon 00:00:00 00:00:00 Spirit - CHI [facility] 2022-05-22 2022-05-22 (TEL) STLMLC STLMLC [id number] Co mmon 00:00:00 00:00:00 Spirit - CHI [facility] 2022-05-03 2022-05-20 Inpatient 3 BROOKE Weinstein BIN [id number] [facility] 16:39:00 11:20:00 Javier 0706 [facility] Robert d 2022-05-15 2022-05-15 (TEL) STLMLC STLMLC [id number] Co mmon 00:00:00 00:00:00 [facility] 2022-05-02 2022-05-03 Outpatient U ROSSI[id number] 17:13:00 15:56:00 JAZZ 2022-05-01 2022-05-01 Telephone Darling Sanches 1.2. [id number] [place] 00:00:00 00:00:00 Darling Sanches 350.1.13.58 [facility] 9.2.7.2.686 [place] [id number] 0 2022-04-18 2022-04-18 Telephone RILEY Mccarty 6410 [id number] [id number] [place] 00:00:00 00:00:00 Lewis CARNEY 350.1.13.58 [facility] 9.2.7.2.686 [id number] 8 2022-04-11 2022-04-11 Office RILEY Mccarty 1.2.840.114 [id number] [place] 13:00:00 14:39:51 Visit Lewis MARJORIE 350.1.13.58 [facility] 9.2.7.2.686 [facility] [id number] SPECIALTY 5 2022-04-01 2022-04-01 (TEL) STLMLC STLMLC [id number] Co mmon 00:00:00 00:00:00 [facility] 2022-03-31 2022-03-31 (TEL) STLMLC STLMLC [id number] Co mmon 00:00:00 00:00:00 [facility] 2022-03-22 2022-03-22 OFFICE STLMLC STLMLC [id number] Co mmon 00:00:00 00:00:00 VISIT EST Spir it PT LEVEL 3 [facility] 2022-03-062022-03-06 Emergency E ANA MARIA, [facility] BL [id number] [facility] 17:28:00 23:44:00 DIOR 2022-02-23 2022-02-27 Outpatient E AMY, [facility] [id number] [facility] 14:06:00 20:49:00 YONAS 2021-12-10 2021-12-10 Emergency E AZNAUROVA-A [facility] BL 7502 [facility]BL 17:30:00 22:35:00 MARISELA DELGADILLO 2021-02-28 2021-02-28 Outpatient SIMRAN, [facility] 750 [id number] [facility] 13:19:00 23:59:00 NOHEMY 2020-01-14 2020-01-14 Outpatient Ige-Odunuga [facility]FP VF 795 [id number] [facility] 12:47:00 12:47:00 _J_AH [address]781 Family Practic e 2020-01-14 2020-01-14 Outpatient Ige-Odunuga VFP VF 795 [id number] [facility] 12:47:00 12:47:00 _J_AH 92399 Family Practic e Results Test Description Test Time Test Comments Results Result Comments Source Heavy metals screen, urine 2022-04-21 04:00:00 Test Item Value Reference Range Interpretation Comme nts ARSENIC, URINE (test mcg/g creat Referen ce RangeNonexposed code = 74171-1) adult: ?< or = 35Biological Ex posure Index(end of sh ift or work week): < or = 5 0 See Note 1 LEAD, URINE (test SEE NOTE mcg/g creat Results ar e below code = 69672-9) reportable r mariah for this analyte,which i s 10 mcg/L.Reference RangeNonexposed adult: ?<10 See Note 1 MERCURY, RANDOM SEE NOTE mcg/g creat Results are below URINE (test code = reportabl e range for this 70470-9) analyte,which i s 4 mcg/L.Reference RangeNonexposed adult: ?< or = 4 Biological Exposure Index( preshift): ? < or = 35 See Note 1 CREATININE, RANDOM 188 mg/dL 20-320 Note 1 Th is test was URINE (test code = developed and its 2161-8) analytical perf ormance characteristics have been determined by [facility]. It has not been cleared or approved by theFDA. This as say has been validated pursu ant to the CLIA regulation s and is used for clinic al purposes. REPORT COMMENT: SPLIT 04/14/2022 FROM 9032013 RAC (test code = Performing Organization RAC) Information: ? ?Site ID: [facility] ? ?Name: [facility] ? ?Address: [address] [place] [address] ? ?Director: RONI KRAMER MD MS [id number] 09:00:00 Test Item Value Reference Range Interpretation Comments COPPER (test See_Comment This test was code = developed and i ts 5631-7) analytical perf ormance characteristics have been determined by [facility]. It has not been cl eared or approved by theFDA. This assay has been validated pursu ant to the CLIA regula tions and is used for clinical purpos es. [Automated mess age] The system [employer] generated this result transmitted ref erence range: 70 - 175 mcg/dL. The ref erence range was not u sed to interpret this result as normal/abnor mal. RAC (test Performing code = RAC) Organization Information: ? ?Site ID: [facility] ? ?Name: [facility] ? ?Address: [address] [place] [address] ? ?Director: RONI KRAMER MD [facility] Center[facility] [id number] 09:00:00 Test Item Value Reference Interpretation Comments Range VITAMIN B12 280 pg/mL 200-1100 Please Note: A lthough the (test code = reference range for 2132-06) pyroesgA93 is 2 00-1100 pg/mL, it has b [...] Information: ? ?Site ID: [facility] ? ?Name: [facility] ? ?Address: [address] [place] [id number] ? ?Director: GRACIE SULLIVAN MD [facility] [id number] 09:00:00 Test Item Value Reference Range Interpretation Comments TSH (test See_Comment [Automated mes david] code = The system whic h 3016-3) generated this result transmit sissy reference range : 0.40 - 4.50 mIU /L. The reference r mariah was not used to interpret this result as normal/abnormal . RAC (test Performing code = RAC) Organization Information: ? ?Site ID: [facility] ? ?Name: [facility] ? ?Address: [address] [place] [phone] ? ?Director: GRACIE SULLIVAN MD MS HealthGLUCOSE BEDSIDE [id number] 06:38:00 Test Item Value Reference Range Interpretation Comments GLUCOSE BEDSIDE TESTING (test code = 93 mg/dL 70-110 N GLUBED) BASIC METABOLIC [id number] 06:24:00 Test Item Value Reference Range Interpretation [...] CA) 8.8 MG/DL 8.5-10.1 N GLUCOSE BEDSIDE [id number] 17:01:00 Test Item Value Reference Range Interpretation Comments GLUCOSE BEDSIDE TESTING (test code 220 mg/dL 70-110 H = GLUBED) GLUCOSE BEDSIDE [id number] 11:37:00 Test Item Value Reference Range Interpretation Comments GLUCOSE BEDSIDE TESTING (test code = 86 mg/dL 70-110 N GLUBED) GLUCOSE BEDSIDE [id number] 08:10:00 Test Item Value Reference Range Interpretation Comments GLUCOSE BEDSIDE TESTING (test code = 86 mg/dL 70-110 N GLUBED) BASIC METABOLIC [id number] 05:12:00 Test Item Value Reference Range Interpretation [...] CA) 8.6 MG/DL 8.5-10.1 N BASIC METABOLIC [id number] 05:07:00 Test Item Value Reference Range Interpretation [...] CA) 8.6 MG/DL 8.5-10.1 N GLUCOSE BEDSIDE [id number] 20:21:00 Test Item Value Reference Range Interpretation Comments GLUCOSE BEDSIDE TESTING (test code 119 mg/dL 70-110 H = GLUBED) - CT HEAD/BRAIN W/O [id number] 18:46:00 [facility] 1955 Sex: M Name: RADHA MARMOLEJO [facility] : 1955 Age/S: 65 / M [id number] Unit #: [id number] Loc: [place] [address] Phys: Michele Thompson MD Acct: [id number] Dis Date: Status: ADM IN PHONE #: [phone] Exam Date: 12/10/2020 1843 FAX #: Reason: decrease loc since yesterday EXAMS: CPT: [id number] CT HEAD/BRAIN W/O CONT 66206 EXAM: CT BRAIN WITHOUT CONTRAST INDICATION: decrease [...] of low-attenuation within the central white matter consistent with [...] Evolving subacute lacunar infarct in the right thalamus.Moderate chronic microvascular ischemic changes and diffuse cerebral [...] 1 Signed Report (CONTINUED) Name: RADHA MARMOLEJO [place] : 1955 Age/S: 65 / M [address] Unit #: [id number] Loc: [place] [address] Phys: Michele Thompson MD Acct: [id number] Dis Date: Status: ADM IN PHONE #: [phone] Exam Date: 12/10/2020 184 FAX #: Reason: decreaseloc since yesterday EXAMS: CPT: [id number] CT HEAD/BRAIN W/O CONT 07906 (Continued) CC: Michele Thompson MD; Pj Brooks MD Technologist:RT Nathaniel(R)(CT); En CTDI: DLP: Trnscb Date/Time: 12/10/2020 (1845) [email or web address] Orig Print D/T: S: 12/10/2020 (1848) PAGE 2 Signed Report- DUP EXTRACRANIAL [id number] 14:30:00 [facility] : 1955 Sex: M Name: [facility] [place] : 1955 Age/S: 65 / M [id number] Unit #: [id number] Loc: [place] [address] Phys: Pj Brooks MD Acct: [id number] Dis Date: Status: ADM IN PHONE #: [phone] Exam Date: 12/10/2020 1400 FAX #: Reason: ISCHEMIC STROKE EXAMS: CPT: [id number] DUP EXTRACRANIAL LAINEY 39[address] Dictation location A1 Carotid Doppler Ultrasound HISTORY: [...] 12/10/2020 (1430) JeriPXC PAGE 1 Signed Report Name: RADHA MARMOLEJO [facility] : 1955 Age/S: 65 / M [address] Unit #: [id number] Loc: [place] [address] Phys: Pj Brooks MD Acct: [id number] Dis Date: Status: ADM IN PHONE #: [phone] Exam Date: 12/10/2020 1400 FAX #: Reason: ISCHEMIC STROKE EXAMS: CPT: [id number] DUP EXTRACRANIAL LAINE[place] [address] (Continued) Orig Print D/T: S: 12/10/2020 (1433) Probe: PAGE 2 Signed ReportGLYCOSYLATED HEMOGLOBIN PANEL 2020-12-10 11:30:00 Test Item Value Reference Range Interpretation Comments GLYCOSYLATED HEMOGLOBIN (HA1C) 5.8 % A1C 0.0-5.7 H (test code = GLYHGB) ESTIMATED AVERAGE GLUCOSE (test 120 MG/DLest code = EAG) COMPREHENSIVE METABOLIC [id number] 11:29:00 Test Item Value Reference Range Interpretation [...] L [Autom ated message] LDL/HDL) The system [employer] generated this result transmit sissy reference range : 1.48-3.22 Avg. The reference range was not used to interpret this result as normal/abnormal . CBC W/AUTO [id number] 11:01:00 Test Item Value Reference Range Interpretation [...] DIFF/SCN CRITERIA = MDIFF) Coronavirus 2019 nCoV [id number] 18:27:00 Test Item Value Reference Range Interpretation Comments Coronavirus 2019 nCoV Negative Negative Per ma nufacturer, Bedside (test code = negativ e results should [id number]) be treated aspresumptive a nd, if inconsistent [...] tent with COVID-19. - MRI BRAIN W/O [id number] 16:59:00 [facility] : 1955 Sex: M FAX: Pj Rodriguez MD [phone] Camps: [address] St: ADM Name: RADHA MARMOLEJO : 1955 Age/S: 65/M [address] Unit #: [id number] Loc: [place] [address] Phys: Pj Brooks MD Acct: [id number] Dis Date: Status: ADM IN PHONE #: [phone] Exam Date: 12/09/2020 1650 FAX #: Reason: r/o CVA EXAMS: CPT: [id number] MRI BRAIN W/O CONTRAST 40362 EXAM: MRI BRAIN WITHOUT CONTRAST INDICATION: CVA [...] The orbits and globes are unremarkable. IMPRESSION: Sma ll early subacute lacunar infarct in the right thalamus. Moderate chronic microvascular ischemic changes and diffuse cerebral volume loss. LOCATION: A 1 at 1659 Reported and signed by: Kelsie Nielsen M.D. CC: Pj Brooks MD Te chnologist: Sherlyn White, RT(R)(CT) Transcribed Date/Time/By: 12/09/2020 (165) :[email or web address] Orig Print D/T: S: 12/09/2020 (4741) PAGE 1 Signed ReportUR PROTEIN [id number] 15:35:00 Test Item Value Reference Range Interpretation Comments UR PROTEIN TOTAL (test code = 19.3 MG/DL 0.0-12.0 H PROTU) UR CREATININE [id number] 15:35:00 Test Item Value Reference Range Interpretation Comments UR CREATININE RANDOM (test code = 97.1 MG/DL 30-125 N CREATU) - US RETRO [id number] 15:10:00 [facility] : 1955 Sex: M Name: RADHA MARMOLEJO [facility] : 1955 Age/S: 65 / M [address] Unit #: [id number] Loc: [place] [address] Phys: Gamal Rudd MD Acct: [id number] Dis Date: Status: ADM IN PHONE #: [phone] Exam Date: 12/09/2020 1500 FAX #: Reason: evalm of kidney size and echogenicity for ckd E XAMS: CPT: [id number] RETRO LTD 333[address] Location of dictation: B2 ULTRASOUND OF THE [...] appear hyperechoic. There is a gently lobulated simplecyst in the right upper pole measuring 4 [...] PAGE 1 Signed Report Name: RADHA MARMOLEJO [place] : 1955 Age/S: 65 / M [address] Unit #: [id number] Loc: [place] [address] Phys: Gamal Rudd MD Acct: [id number] Dis Date: Status: ADM IN PHONE #: [phone] Exam Date: 12/09/2020 1500 FAX #: Reason: evalm of kidney size and echogenicity for ckd EXAMS: CPT: [id number] RETRO LTD 79380 (Continued) Orig Print D/T: S: 12/09/2020 (1514) Probe: PAGE 2 Signed ReportUA RFLX MICR CULT IF [id number] 08:20:00 Test Item Value Reference Range Interpretation [...] Indication for culture: Dysuria/Frequency- XR SHOULDER 2+V [id number] 08:19:00 [facility] : 1955 Sex: M Name: RADHA MARMOLEJO [facility] : 1955 Age/S: 65 / M [address] Unit #: [id number] Loc: [place] [address] Phys: Mode Duran MD Acct: [id number] Dis Date: Status: REG ER PHONE #: [phone] Exam Date: 12/09/2020814 FAX #: Reason: trauma EXAMS: CPT: [id number] XR SHOULDER 2+[place] [address] Fluoro Time: DAP (Gy m2): Air Kerma (mGy): Dictation Location B2 LEFT SHOULDER 3 VIEWS: HISTORY: Recurrent falls and confusion COMMENT: No no acute fracture, dislocation, focal lesion or destructiveprocess seen. Mild degenerative narrowing of the joint spaces. Surrounding bones and soft tissues are intact. IMPRESSION: No acute findings of the left shoulder. at 0819 Reported and signed by: Gege Wilson M.D. CC: Mode Duran MD PAGE 1 Signed Report Name: RADHA MARMOLEJO : 1955 Age/S: 65 / M [address] Unit #: [id number] Loc: [place] [address] Phys: Mode Duran MD Acct: [id number] Dis Date: Status: REG ER PHONE #: [phone] Exam Date: 12/09/2020814 FAX #: Reason: trauma EXAMS: CPT: [id number] XR SHOULDER 2+[place] [address] Fluoro Time: DAP (Gy m2): Air Kerma (mGy): (Continued) Technologist: Dominguez Molina, RT(R)(CT) Trnscb Date/Time: 12/09/2020 (818) t.SDR.PXC Orig Print D/T: S: 12/09/2020(0822) PAGE 2 Signed ReportBASIC METABOLIC [id number] 08:11:00 Test Item Value Reference Range Interpretation [...] 8.6 MG/DL 8.5-10.1 N Completed by Nursing: [id number] 08:11:00 Test Item Value Reference Range Interpretation [...] shade yby method. Completed by Nursing: NOPROTHROMBIN [id number] 07:54:00 Test Item Value Reference Range Interpretation Comments PT PATIENT (test code = PTP) 11.7 SECONDS 9.3-12.9 N INTERNATIONAL NORMAL RATIO 1.04 INR Unit 0.8-1.2 N (test code = INR) THROMBOPLASTIN TIME [id number] 07:54:00 Test Item Value Reference Range Interpretation Comments THROMBOPLASTIN TIME PARTIAL 33.0 SECONDS 26-35 N (test code = PTT) - CT HEAD/BRAIN W/O [id number] 07:48:00 [facility] : 1955 Sex: M Name: RADHA MARMOLEJO [facility] : 1955 Age/S: 65 / M [address] [address] Unit #: [id number] Loc: [place] [address] Phys: Mode Duran MD Acct: [id number] Dis Date: Status: PRE ER PHONE #: [phone] Exam Date: 12/09/2020 0737 FAX #: Reason: Code Stroke EXAMS: CPT: [id number] CT HEAD/BRAIN W/O CONT 43689 EXAM: - CT HEAD/BRAIN W/O CONT INDICATION: Code Stroke LOCATION: T18 COMPARISON: None available time of interpretation. TECHNIQUE: Axial tomograms through the brain were obtained without intravenous contrast. Coronal and sagittal reformatted images are provided. All CT scans are performedusing radiation dose reduction technique. Technical factors are [...] 1 Signed Report (CONTINUED) Name: RADHA MARMOLEJO [facility] : 1955 Age/S: 65 / M [address] [address] Unit #: [id number] Loc: [place] [address] Phys: Mode Duran MD Acct: [id number] Dis Date: Status: PRE ER PHONE #: [phone] Exam Date: 12/09/2020 0737 FAX #: Reason: Code Stroke EXAMS: CPT: [id number] CT HEAD/BRAIN W/O [id number] (Continued) CC: Mode Duran MD Technologist:Lewis See, RT(R) CTDI: DLP: Trnscb Date/Time: 12/09/2020 (0748) [email or web address] Orig Print D/T: S: 12/09/2020 (0756) PAGE 2 Signed ReportCBC W/O [id number] 07:47:00 Test Item Value Reference Range Interpretation [...]
[2022-10-23] MEDS ORDERED: FAMOTIDINE 20 MG/2 ML VIAL IV ONE (11:50)
[2022-10-23] MEDS ORDERED: ONDANSETRON 4 MG/2 ML VIAL ONE (11:50)
[2022-10-23] MEDS ORDERED: NA CHLORIDE 0.9% 1,000 ML ONE (11:50)
[2022-10-23 12:06] LABS: Protime INR 1.25
[2022-10-23 12:11] LABS: SARS-CoV-2 Antigen Rapid Res Negative (Negative)
[2022-10-23 12:20] LABS: Absolute Lymphocytes (CBC) 2.3 K/uL (0.7-4.9); Hematocrit 34.9 % (39.6-49.0); MCV 83.1 fL (80-100); MPV 10.1 fL (7.6-11.3)
[2022-10-23 12:30] LABS: AST/SGOT 9 U/L (15-37); Albumin 3.1 g/dL (3.4-5.0); Alkaline Phosphatase 88 U/L (45-117); BUN Blood Urea Nitrogen 41 mg/dL (7-18); Bicarbonate 23 mmol/L (21-32); Bilirubin Direct 0.2 mg/dL (0-0.2); Bilirubin Total 0.6 mg/dL (0.2-1.0); Glomerular Filtration Rate 15 ml/min (=/>90); Glucose Level 139 mg/dL (74-106); Lipase 217 U/L (73-393); Magnesium 2.3 mg/dL (1.6-2.4); NT PRO-BNP 573 pg/mL (<125); Potassium 3.9 mmol/L (3.5-5.1); Protein, Total 7.1 g/dL (6.4-8.2); Sodium Level 139 mmol/L (136-145)
[2022-10-23 12:52] LABS: ALT/SGPT < 10 U/L (16-61)
--- NOTE | 2022-10-23 13:38 | RAD REPORT ---
EXAM DESCRIPTION: RAD - Chest Single View - 10/23/2022 1:20 pm CLINICAL HISTORY: COUGH COMPARISON: Chest Single View dated 10/11/2022; Chest Single View dated 05/01/2022; Chest Single View dated 02/20/2022; Chest Single View dated 09/04/2021 FINDINGS: Lines: None. Lungs: Subtle ill-defined opacities in the right lower lung. Pleural: No significant pleural effusions or pneumothorax. Cardiac: The heart size is within normal limits. Mediastinum: Within normal limits. Bones: No acute fractures. Other: None IMPRESSION: Subtle airspace disease in the right lower lung could reflect mild pneumonia or pneumoni tis.
--- NOTE | 2022-10-23 13:46 | ER ---
Nurse's Notes [facility] Name: Channing Marmolejo Age: 67 yrs Sex: Male : 1955 Arrival Date: 10/23/2022 Time: 11:29 Bed 23 Private MD: Diagnosis: Acute kidney failure, unspecified;Vomiting;Dehydration Presentation: 10/23 11:32 Chief complaint: Patient states: 2 episodes of N/V and weakness yesterday. 1 episode of ll1 N/V today. No known fever. Chief complaint: EMS states: VSS. Fingerstick 177, 22G L AC, NS 50 ml IV given. Coronavirus screen: Vaccine status: Patient reports receiving the 2nd dose of the covid vaccine. Client denies travel out of the [place] in the last 14 days. fatigue, nausea, vomiting. Client presents with at least one sign or symptom that may indicate coronavirus-19. Standard/surgical mask placed on the client. Ebola Screen: Patient denies travel to an Ebola-affected area in the 21 days before illness onset. Initial Sepsis Screen: Does the patient meet any 2 criteria? No. Patient's initial sepsis screen is negative. Does the patient have a suspected source of infection? Yes: Other: N/V. Risk Assessment: Do you want to hurt yourself or someone else? Patient reports no desire to harm self or others. Onset of symptoms was October 22, 2022. 11:32 Method Of Arrival: EMS [facility] 11:32 Acuity: KANWAL 3 ll1 Triage Assessment: 11:34 General: Appears uncomfortable, ill, Behavior is calm, cooperative, appropriate for 1 age. Pain: Denies pain. Neuro: Reports weakness. Cardiovascular: No deficits noted. Respiratory: No deficits noted. GI: Reports nausea, vomiting. Historical: - Allergies: 11:31 No Known Allergies; ll1 - PMHx: 11:31 Carotid artery blockage; Hypertension; COPD; CVA; Seizure; ll1 - PSHx: 11:31 Unable to Obtain; ll1 - Immunization history:: Client reports receiving the 2nd dose of the Covid vaccine. - Social history:: Smoking status: Patient denies any tobacco usage or history of. - Family history:: not pertinent. Screenin:34 Abuse screen: Denies threats or abuse. Nutritional screening: No deficits noted. ll1 Tuberculosis screening: No symptoms or risk factors identified. 12:00 [facility] ED Fall Risk Assessment (Adult) Confusion or Disorientation Yes (5 pts) ll1 Impaired Gait Yes (1 pt) Mobility Assist Device Used Yes (1 pt) Score/Fall Risk Level 3 or more points = High Risk Oriented to surroundings, Maintained a safe environment, Educated pt \T\ family on fall prevention, incl call for assistance when getting out of bed, Hourly rounding (assess needs \T\ fall precautionary measures) done, Offered frequent toileting (1:1 observation), Remained with patient while ambulating, Utilized family, sitter, or virtual deliver driver as indicated. Assessment: 11:55 Reassessment: No changes from previously documented assessment. Patient and/or family ll1 updated on plan of care and expected duration. Pain level reassessed. 13:00 Reassessment: No changes from previously documented assessment. Patient and/or family ll1 updated on plan of care and expected duration. Pain level reassessed. 14:00 Reassessment: No changes from previously documented assessment. Patient and/or family ll1 updated on plan of care and expected duration. Pain level reassessed. 15:00 Reassessment: No changes from previously documented assessment. Patient and/or family ll1 updated on plan of care and expected duration. Pain level reassessed. 16:00 Reassessment: No changes from previously documented assessment. Patient and/or family ll1 updated on plan of care and expected duration. Pain level reassessed. 17:00 Reassessment: No changes from previously documented assessment. Patient and/or family ll1 updated on plan of care and expected duration. Pain level reassessed. 18:00 Reassessment: No changes from previously documented assessment. Patient and/or family ll1 updated on plan of care and expected duration. Pain level reassessed. 18:57 Reassessment: No changes from previously documented assessment. Patient and/or family ll1 updated on plan of care and expected duration. Pain level reassessed. Vital Signs: 11:32 BP 116 / 63; Pulse 60; Resp 17; Temp 98.2(O); Pulse Ox 100% on R/A; Weight 63.5 kg; ll1 Height 5 ft. 11 in. (180.34 cm); Pain 0/10; 12:30 BP 107 / 59; Pulse 59; Resp 18; Pulse Ox 100% on R/A; ll1 14:00 BP 118 / 57; Pulse 55; Resp 16; Pulse Ox 100% on R/A; ll1 17:14 BP 117 / 59; Pulse 56; Resp 17; Pulse Ox 100% ; ll1 18:55 BP 140 / 77; Pulse 58; Resp 16; Pulse Ox 99% on R/A; ll1 20:36 BP 125 / 69; Pulse 61; Resp 18; Pulse Ox 98% on R/A; ll3 11:32 Body Mass Index 19.52 (63.50 kg, 180.34 cm) ll1 [place] Coma Score: 16:53 Eye Response: spontaneous(4). Verbal Response: oriented(5). Motor Response: obeys zo commands(6). Total: 15. ED Course: 11:29 Patient arrived in ED. em1 11:31 Isis Verdugo, RN is Primary Nurse. 1 11:31 Arm band placed on Patient placed in an exam room, on a stretcher. 1 11:34 Triage completed. 1 11:34 Matt Jack MD is Attending Physician. [facility] 11:34 Patient has correct armband on for positive identification. Bed in low position. Call ll1 light in reach. Side rails up X2. Client placed on continuous cardiac and pulse oximetry monitoring. NIBP monitoring applied. fabrication lead on. 11:34 Maintain EMS IV. Dressing intact. Good blood return noted. Site clean \T\ dry. Gauge \T\ ll 1 site: 22 L AC. 11:54 SARS RAPID Sent. 1 13:22 XRAY Chest (1 view) In Process Unspecified. EDMS 13:44 Oswaldo Murphy MD is Hospitalizing Provider. zo 13:46 Dean Calvillo MD is Hospitalizing Provider. zo 14:13 Stone Protocol In Process Unspecified. EDMS 14:13 CT Head Brain wo Cont In Process Unspecified. EDMS 17:15 No provider procedures requiring assistance completed. Patient admitted, IV remains in ll1 place. Administered Medications: 11:53 Drug: NS 0.9% 1000 ml Route: IV; Rate: 1 bolus; Site: left antecubital; 1 17:13 Follow up: Response: No adverse reaction; IV Status: Completed infusion; IV Intake: ll1 1000ml 11:53 Drug: Pepcid (famotidine) 20 mg Route: IVP; Site: left antecubital; ll1 17:13 Follow up: Response: No adverse reaction ll1 11:53 Drug: Zofran (Ondansetron) 4 mg Route: IVP; Site: left antecubital; ll1 17:13 Follow up: Response: No adverse reaction ll1 15:50 Drug: Rocephin (cefTRIAXone) 1 grams Route: IV; Rate: per protocol; Site: left ll1 antecubital; 15:50 Drug: NS 0.9% 1000 ml Route: IV; Rate: 125 ml/hr; Site: left antecubital; ll1 Medication: 11:34 VIS not applicable for this client. ll1 Intake: 17:13 IV: 1000ml; Total: 1000ml. ll1 Outcome: 13:46 Decision to Hospitalize by Provider. zo 17:15 Admitted to ER Hold. Please see [facility] for further documentation. 1 17:15 Condition: stable 17:15 Instructed on the need for admit. 22:31 Admitted to Med/surg accompanied by tech, via stretcher, room 220, with chart, Report ll3 called to [facility] Elise 22:32 Patient left the ED. ll3 Signatures: Dispatcher [employer] EDMS Matt Jack MD MD cha Martinez, Eric em1 Isis Verdugo, [facility] RN ll1 Rubina Woody RN RN ll3 Corrections: (The following items were deleted from the chart) 11:38 11:32 BP 116 / 63; Pulse 60bpm; Resp 17bpm; Pulse Ox 95%; Temp 98.2F Oral; 63.5 kg; ll1 Height 5 ft. 11 in.; BMI: 19.5; Pain 0/10; ll1
--- NOTE | 2022-10-23 13:46 | EDPHYS ---
Physician Documentation [facility] Name: Channing Marmolejo Age: 67 yrs Sex: Male : 1955 Arrival Date: 10/23/2022 Time: 11:29 Bed 23 Private MD: ED Physician Matt Jack HPI: 10/23 13:38 This 67 yrs old Black Male presents to ER via EMS with complaints of VOMITING AND NEAR zo SYNCOPE. 13:38 The patient presents to the emergency department with nausea, vomiting, that is zo intermittent, described as unknown. Onset: The symptoms/episode began/occurred 3 day(s) ago. Possible causes: unknown. The symptoms are aggravated by nothing. The symptoms are alleviated by nothing. WEAKNESS, VOMITING. The patient has experienced near-syncope, almost passed out, felt dizzy. Onset: The symptoms/episode began/occurred this morning, today. Duration: This was a single episode, that lasted an unknown period of time. Associated signs and symptoms: The patient has no apparent associated signs or symptoms. Historical: - Allergies: 11:31 No Known Allergies; ll1 - PMHx: 11:31 Carotid artery blockage; Hypertension; COPD; CVA; Seizure; ll1 - PSHx: 11:31 Unable to Obtain; ll1 - Immunization history:: Client reports receiving the 2nd dose of the Covid vaccine. - Social history:: Smoking status: Patient denies any tobacco usage or history of. - Family history:: not pertinent. ROS: 13:38 Constitutional: Negative for fever, chills, and weight loss, Eyes: Negative for injury, zo pain, redness, and discharge, ENT: Negative for injury, pain, and discharge, Neck: Negative for injury, pain, and swelling, Cardiovascular: Negative for chest pain, palpitations, and edema, Respiratory: Negative for shortness of breath, cough, wheezing, and pleuritic chest pain, Back: Negative for injury and pain, : Negative for injury, bleeding, discharge, and swelling, MS/Extremity: Negative for injury and deformity, Skin: Negative for injury, rash, and discoloration, Psych: Negative for depression, anxiety, suicide ideation, homicidal ideation, and hallucinations, Allergy/Immunology: Negative for hives, rash, and allergies, Endocrine: Negative for neck swelling, polydipsia, polyuria, polyphagia, and marked weight changes, Hematologic/Lymphatic: Negative for swollen nodes, abnormal bleeding, and unusual bruising. 13:38 Abdomen/GI: Positive for nausea and vomiting, abdominal cramps, of the right upper quadrant and left upper quadrant. Exam: 13:38 Constitutional: This is a well developed, well nourished patient who is awake, alert, zo and in no acute distress. Head/Face: Normocephalic, atraumatic. Eyes: Pupils equal round and reactive to light, extra-ocular motions intact. Lids and lashes normal. Conjunctiva and sclera are non-icteric and not injected. Cornea within normal limits. Periorbital areas with no swelling, redness, or edema. ENT: Nares patent. No nasal discharge, no septal abnormalities noted. Tympanic membranes are normal and external auditory canals are clear. Oropharynx with no redness, swelling, or masses, exudates, or evidence of obstruction, uvula midline. Mucous membranes moist. Neck: Trachea midline, no thyromegaly or masses palpated, and no cervical lymphadenopathy. Supple, full range of motion without nuchal rigidity, or vertebral point tenderness. No Meningismus. Chest/axilla: Normal chest wall appearance and motion. Nontender with no deformity. No lesions are appreciated. Cardiovascular: Regular rate and rhythm with a normal S1 and S2. No gallops, murmurs, or rubs. Normal PMI, no JVD. No pulse deficits. Respiratory: Lungs have equal breath sounds bilaterally, clear to auscultation and percussion. No rales, rhonchi or wheezes noted. No increased work of breathing, no retractions or nasal flaring. Abdomen/GI: Soft, non-tender, with normal bowel sounds. No distension or tympany. No guarding or rebound. No evidence of tenderness throughout. Back: No spinal tenderness. No costovertebral tenderness. Full range of motion. Male : Normal genitalia with no discharge or lesions. Skin: Warm, dry with normal turgor. Normal color with no rashes, no lesions, and no evidence of cellulitis. MS/ Extremity: Pulses equal, no cyanosis. Neurovascular intact. Full, normal range of motion. Neuro: Awake and alert, GCS 15, oriented to person, place, time, and situation. Cranial nerves II-XII grossly intact. Motor strength 5/5 in all extremities. Sensory grossly intact. Cerebellar exam normal. Normal gait. Psych: Awake, alert, with orientation to person, place and time. Behavior, mood, and affect are within normal limits. 13:38 ECG was reviewed by the Attending Physician. Vital Signs: 11:32 BP 116 / 63; Pulse 60; Resp 17; Temp 98.2(O); Pulse Ox 100% on R/A; Weight 63.5 kg; ll1 Height 5 ft. 11 in. (180.34 cm); Pain 0/10; 12:30 BP 107 / 59; Pulse 59; Resp 18; Pulse Ox 100% on R/A; ll1 14:00 BP 118 / 57; Pulse 55; Resp 16; Pulse Ox 100% on R/A; ll1 17:14 BP 117 / 59; Pulse 56; Resp 17; Pulse Ox 100% ; ll1 18:55 BP 140 / 77; Pulse 58; Resp 16; Pulse Ox 99% on R/A; ll1 20:36 BP 125 / 69; Pulse 61; Resp 18; Pulse Ox 98% on R/A; ll3 11:32 Body Mass Index 19.52 (63.50 kg, 180.34 cm) ll1 [place] Coma Score: 16:53 Eye Response: spontaneous(4). Verbal Response: oriented(5). Motor Response: obeys zo commands(6). Total: 15. MDM: 11:34 Patient medically screened. zo 13:42 Differential diagnosis: Nonspecific abd pain, gastritis, pancreatitis, diverticulitis, zo viral gastroenteritis, gastroenteritis. Differential Diagnosis altered mental status. Differential Diagnosis: cardiac arrhythmia, cerebrovascular accident, GI bleed, seizure, vasovagal episode. Data reviewed: vital signs, nurses notes, lab test result(s), EKG, radiologic studies, CT scan, plain films. Data interpreted: test examiner: rate is 60 beats/min, rhythm is regular, Pulse oximetry: on room air is 100 %. Test interpretation: by ED physician or midlevel provider: ECG, plain radiologic studies. Counseling: I had a detailed discussion with the patient and/or guardian regarding: the historical points, exam findings, and any diagnostic results supporting the discharge/admit diagnosis, lab results, radiology results, the need for further work-up and treatment in the hospital. 16:53 Physician consultation: Carlos Eduardo Cruz MD and will see patient in inpatient room, zo NOTHING HE WOULD DO DIFFERENTLY TONIGHT, MEDICALLY TUNE UP , WILL SEE TOMORROW, PLEASE TUNE UP. tomorrow. 10/23 11:36 Order name: Basic Metabolic Panel; Complete Time: 13:23 [facility] 10/23 11:36 Order name: CBC with Diff; Complete Time: 13:23 [facility] 10/23 11:36 Order name: LFT's; Complete Time: 13:23 [facility] 10/23 11:36 Order name: Magnesium; Complete Time: 13:23 [facility] 10/23 11:36 Order name: NT PRO-BNP; Complete Time: 13:23 [facility] 10/23 11:36 Order name: PT-INR; Complete Time: 13:23 [facility] 10/23 11:36 Order name: Troponin HS; Complete Time: 13:23 [facility] 10/23 11:36 Order name: Lipase; Complete Time: 13:23 [facility] 10/23 11:36 Order name: SARS RAPID; Complete Time: 13:23 [facility] 10/23 14:59 Order name: Urine Microscopic Only; Complete Time: 16:44 [facility] 10/23 15:46 Order name: Urine Dipstick-Ancillary; Complete Time: 16:44 [facility] 10/23 16:40 Order name: Urine Culture [facility] 10/23 17:27 Order name: CBC with Automated Diff [facility] 10/23 17:27 Order name: CBC with Automated Diff [facility] 10/23 11:36 Order name: XRAY Chest (1 view); Complete Time: 16:44 [facility] 10/23 11:36 Order name: EKG; Complete Time: 11:36 [facility] 10/23 11:36 Order name: Cardiac monitoring; Complete Time: 12:43 [facility] 10/23 13:27 Order name: CT Stone Protocol [facility] 10/23 13:31 Order name: Stone Protocol; Complete Time: 16:44 [facility] 10/23 13:38 Order name: CT Head Brain wo Cont; Complete Time: 16:44 [facility] 10/23 17:27 Order name: CONS Physician Consult [facility] 10/23 17:27 Order name: CONS Physician Consult [facility] 10/23 17:27 Order name: Heart Healthy [facility] 10/23 17:27 Order name: Comprehensive Metabolic Panel [facility] 10/23 17:27 Order name: Comprehensive Metabolic Panel [facility] 10/23 11:36 Order name: EKG - Nurse/Tech; Complete Time: 12:43 [facility] 10/23 11:36 Order name: IV Saline Lock; Complete Time: 11:38 [facility] 10/23 11:36 Order name: Labs collected and sent; Complete Time: 11:38 [facility] 10/23 11:36 Order name: O2 Per Protocol; Complete Time: 11:38 [facility] 10/23 11:36 Order name: O2 Sat Monitoring; Complete Time: 11:38 [facility] 10/23 11:36 Order name: Urine Dipstick-Ancillary (obtain specimen); Complete Time: 15:42 [facility] 10/23 13:27 Order name: Ayala; Complete Time: 15:42 [facility] EC:38 Rate is 69 beats/min. Rhythm is regular. QRS [place] is Normal. [place] interval is normal. QRS zo interval is normal. QT interval is normal. No Q waves. T waves are Normal. Clinical impression: NSR w/ Non-specific ST/T Changes and No evidence of ischemia. Interpreted by me. Reviewed by me. Administered Medications: 11:53 Drug: NS 0.9% 1000 ml Route: IV; Rate: 1 bolus; Site: left antecubital; ll1 17:13 Follow up: Response: No adverse reaction; IV Status: Completed infusion; IV Intake: ll1 1000ml 11:53 Drug: Pepcid (famotidine) 20 mg Route: IVP; Site: left antecubital; ll1 17:13 Follow up: Response: No adverse reaction ll1 11:53 Drug: Zofran (Ondansetron) 4 mg Route: IVP; Site: left antecubital; ll1 17:13 Follow up: Response: No adverse reaction ll1 15:50 Drug: Rocephin (cefTRIAXone) 1 grams Route: IV; Rate: per protocol; Site: left ll1 antecubital; 15:50 Drug: NS 0.9% 1000 ml Route: IV; Rate: 125 ml/hr; Site: left antecubital; ll1 Disposition Summary: 10/23/22 13:46 Hospitalization Ordered Hospitalization Status: Inpatient Admission zo Provider: Dean Calvillo cha Condition: Fair zo Problem: new zo Symptoms: have worsened zo Bed/Room Type: Standard zo Location: Telemetry/MedSurg (Inpatient)(10/23/22 19:36) mw2 Room Assignment: 220(10/23/22 20:25) cg Diagnosis - Acute kidney failure, unspecified zo - Vomiting zo - Dehydration zo Forms: - Medication Reconciliation Form zo - SBAR form zo Signatures: Dispatcher [employer] EDMatt Dejesus MD MD cha Garcia, Cindy, RN RN Yelitza Sheldon RN RN jl7 Kamille Benz mw2 Isis Verdugo RN RN ll1 Corrections: (The following items were deleted from the chart) 18:58 13:46 Telemetry/MedSurg (Inpatient) zo jl7 18:58 13:46 zo jl7 19:36 18:58 [facility] ER HOLD jl7 mw2 19:36 18:58 ERHOLD- jl7 mw2 20:25 19:36 mw2
--- NOTE | 2022-10-23 14:28 | RAD REPORT ---
EXAM DESCRIPTION: CT - Head Brain Wo Cont - 10/23/2022 2:11 pm CLINICAL HISTORY: Seizure disorder, no clinical change COMPARISON: Head Brain Wo Cont dated 02/20/2022; Ct Stroke Brain Wo Cont dated 01/11/2021; Stone [place] col dated 10/23/2022; Brain Wo Cont dated 07/28/2021 TECHNIQUE: All CT scans are performed using dose optimization technique as appropriate and may inclu de automated exposure control or mA/KV adjustment according to patient size. FINDINGS: No intracranial hemorrhage, hydrocephalus or extra-axial fluid collection.No areas of brai n edema or evidence of midline shift. Remote right basal ganglia lacunar infarcts. White matter signa l changes that are predominantly bifrontal again noted an which involve the subcortical and deep whit e matter. Remote right frontal lobe infarct is noted. Left maxillary sinus thickening. The calvarium is intact. IMPRESSION: No acute intracranial abnormality. Remote right frontal and basal ganglia infarcts. Chr onic small vessel ischemic changes.
--- NOTE | 2022-10-23 14:32 | RAD REPORT ---
EXAM DESCRIPTION: CTStone Protocol - 10/23/2022 2:11 pm CLINICAL HISTORY: ARF COMPARISON: Abdomen Pelvis Wo Contrast dated 10/11/2022; CTSTONE PROTOCOL dated 04/05/2013 TECHNIQUE: CT of the abdomen and pelvis was performed without IV contrast. All CT scans are performed using dose optimization technique as appropriate and may include automated exposure control or mA/KV adjustment according to patient size. FINDINGS: Lower chest: No acute abnormality. Liver: No acute abnormality or suspicious lesions. Biliary: No biliary ductal dilatation. Stomach: No significant focal abnormality. Duodenum: No significant focal abnormality. Pancreas: No significant abnormality. Spleen: No significant abnormality. Adrenal: Unchanged left adrenal nodule. Kidney/ureter: No hydronephrosis. No renal calculi. Multiple right renal cysts again noted. Severe le ft-sided hydronephrosis with pronounced renal cortical thinning. This may be secondary to UPJ obstruc tion. Retroperitoneum: No retroperitoneal adenopathy. Vascular: No aneurysm. Bowel: Moderate rectal stool burden.. Normal appendix. Peritoneum: No ascites or free air. Bladder: Grossly unremarkable. Reproductive: No adnexal masses. Bones: No acute fracture. Other: n/a IMPRESSION: No acute intra-abdominal or pelvic finding. Chronic severe left-sided hydronephrosis which may be secondary to UPJ obstruction. The left kidney i s likely nonfunctional. Moderate rectal stool burden which could indicate constipation and/or fecal impaction.
[2022-10-23] MEDS ORDERED: CEFTRIAXONE 1000 MG/VIAL ONE (15:16)
[2022-10-23 15:46] LABS: Urine Blood 1+ (Negative); Urine Glucose Negative (Negative); Urine Protein 1+ (Negative); Urine Specific Gravity 1.015 (1.005-1.030); Urine pH 5.5 (5.0-7.0)
[2022-10-23 16:10] LABS: Urine Bacteria <20 /HPF (<20); Urine Crystals Unidentified Few /HPF (None Seen); Urine Mucus Slight /HPF (None Seen); Urine WBC Clump Occasional /HPF (None Seen)
[2022-10-23] MEDS ORDERED: ACETAMINOPHEN 500 MG TAB PO PRN (17:22)
[2022-10-23] MEDS ORDERED: MORPHINE 2 MG/ML SYR IV PRN (17:22)
[2022-10-23] MEDS ORDERED: ONDANSETRON 4 MG/2 ML VIAL IV PRN (17:22)
[2022-10-23 23:07] VITALS: BMI 19.2
[2022-10-23] MEDS: NA CHLORIDE 0.9% 1,000 ML IV SCH (23:25)
[2022-10-23] MEDS: CEFTRIAXONE 1,000 MG in NA CHLORIDE 0.9% 50 ML IVPB SCH (23:26)
[2022-10-24 04:31] LABS: Absolute Lymphocytes (CBC) 2.6 K/uL (0.7-4.9); Hematocrit 35.3 % (39.6-49.0); Lymphocytes % 27.8 % (15.3-44.8); MCV 82.8 fL (80-100); MPV 10.1 fL (7.6-11.3); RBC Red Blood Cell Count 4.26 M/uL (4.33-5.43)
[2022-10-24 04:41] LABS: AST/SGOT 13 U/L (15-37); Albumin 2.9 g/dL (3.4-5.0); Alkaline Phosphatase 83 U/L (45-117); BUN Blood Urea Nitrogen 37 mg/dL (7-18); Bicarbonate 23 mmol/L (21-32); Bilirubin Total 0.4 mg/dL (0.2-1.0); Glomerular Filtration Rate 21 ml/min (=/>90); Glucose Level 90 mg/dL (74-106); Potassium 3.8 mmol/L (3.5-5.1); Protein, Total 6.5 g/dL (6.4-8.2); Sodium Level 142 mmol/L (136-145)
[2022-10-24 04:42] LABS: ALT/SGPT < 10 U/L (16-61)
[2022-10-24] MEDS: CEFTRIAXONE 1,000 MG in NA CHLORIDE 0.9% 50 ML IVPB SCH ×2 (09:28→21:27)
--- NOTE | 2022-10-24 10:36 | P.CNS ---
Date of Consult: 10/24/22 Reason for Consult: TOMMIE History of Present Illness: A 67 year old male with past medical history of hypertension, CVA, hyperlidemia, CKD Cr 1.5 , and COPD pt presented with nausea, vomiting and near syncope in ER Cr 4.0 , imaging studies showed severe Lt hydronephrosis, similar to one in early September , but imaging studies earlier this year showed no hydronephrosis, pt deneid NSAID or Abx intake , denied diarrhea or constipation ROS General : weakness, HEENT: Denies dry, vision changes and headache Resp: denies SOB, cough or wheezes Cardiovascular: denied chest pain, palpitation , no SOB GI: have anausea and vomiting ,denies diarrhea or constipation : denies dysuria, urgency, foamy urine or blood tinged urine Musculoskeletal: denies muscle aches, joint pain Endo: denies polyuria and and polydipsia Extre: denies pain numbness and swelling Physical exam General: AAOx3, NAD, HEENT PERRLA, moist mucose membrane neck: supple, no elevated JVD CHEST; CTAB, no wheezes or rales HEART : RRR. Normal S1,2 no murmur or rub Abd: soft, Nt Ext: no edema Skin : No rash A/P #TOMMIE on cKD III due to dehydration and +/- obstructiove uropathy cotn IVF Urology consulted CT scan Severe Lt hydronephrosis , no calculi will order lasix scan renal diet renal dose medications #HTN Bp controlled #UTi Cont Abx Allergies No Known Allergies Allergy (Verified 12/23/20 16:33) Home Medications: Tamsulosin [Flomax*] 2 cap PO DAILY 03/19/20 Aspirin 81 mg PO BEDTIME 12/23/20 Atorvastatin Calcium [Lipitor] 1 tab PO DAILY 12/23/20 carvediloL [Coreg*] 12.5 mg PO BID 12/23/20 Clopidogrel Bisulfate [Plavix*] 75 mg PO DAILY #30 tablet 09/05/21 Donepezil HCl 10 mg PO DAILY 09/05/21 Folic Acid 1 mg PO DAILY #90 tablet 09/05/21 Memantine HCl 10 mg PO BID 09/05/21 Quetiapine [Seroquel*] 50 mg PO BEDTIME 09/05/21 levETIRAcetam [Keppra] 500 mg PO BID #60 tablet 09/05/21 Finasteride 5 mg PO DAILY 09/06/21 Amlodipine [Norvasc*] 5 mg PO DAILY #30 tab 09/08/21 Ciprofloxacin HCl [Cipro] 500 mg PO BID #20 tab 10/13/22 - Past Medical/Surgical History Diabetic: No -: HTN -: Hyperlipidemia -: Chronic Kidney disease -: COPD -: History of Cocaine abuse -: Carotid Occlusive Disease -: History of CVA/TIA-no residual -: Chronic Hepatitis C -: Chronic Back pain -: Cervical Spondylosis -: UGI bleed -: Lt shoulder sx -: GI ulcer sx Psychosocial/ Personal History: . 8-Children. Has home health. - Family History Mother Medical History: Hypertension Father Medical History: Hypertension Notes: Brother Medical History: Hypertension Sister Medical History: Hypertension - Social History Smoking Status: Unknown if ever smoked Alcohol use: Yes CD- Drugs: Yes Caffeine use: No Place of Residence: Home Physical Examination Temp Pulse Resp BP Pulse Ox 97.7 F 60 14 161/74 H 100 10/24/22 08:00 10/24/22 08:00 10/24/22 08:00 10/24/22 08:00 10/24/22 08:00 Laboratory Data (last 24 hrs) 10/23/22 11:40: PT 13.8 H, INR 1.25 10/23/22 11:40: WBC 9.90, Hgb 11.4 L, Hct 34.9 L, Plt Count 257 10/23/22 11:40: Sodium 139, Potassium 3.9, BUN 41 H, Creatinine 4.06 H, Glucose 139 H, Magnesium 2.3, Total Bilirubin 0.6, AST 9 L, ALT < 10 L, Alkaline Phosphatase 88, Lipase 217
--- NOTE | 2022-10-24 13:41 | EKG ---
Test Date: 2022-10-23 Test Time: 12:28:03 Supervisor Coffee: HEATHER MEASUREMENT RESULTS: Intervals: Rate: 60 MT: 162 QRSD: 88 QT: 412 QTc: 412 [place]: P: 50 MT: 162 QRS: 3 T: 47 INTERPRETIVE STATEMENTS: Normal sinus rhythm Normal ECG Compared to ECG 10/23/2022 12:27:33 No significant changes Electronically Signed On 10-24-22 13:38:31 MOTOR TESTER by Everton Mehta
--- NOTE | 2022-10-24 13:41 | EKG ---
Test Date: 2022-10-23 Test Time: 12:27:33 Curriculum Counselor: HEATHER MEASUREMENT RESULTS: Intervals: Rate: 60 PA: 156 QRSD: 88 QT: 414 QTc: 414 [place]: P: 44 PA: 156 QRS: 4 T: 23 INTERPRETIVE STATEMENTS: Normal sinus rhythm Normal ECG Compared to ECG 10/11/2022 17:58:28 Sinus bradycardia no longer present Myocardial infarct finding no longer present Electronically Signed On 10-24-22 13:38:33 VICE PRESIDENT OF FINANCE by Everton Mehta
[2022-10-24] MEDS: NA CHLORIDE 0.9% 1,000 ML IV SCH (13:57)
--- NOTE | 2022-10-24 20:07 | CON ---
Reason For Consultation: Acute kidney injury and hydronephrosis. History Of Present Illness: Mr. Marmolejo is a 67-year-old gentleman with past medical history significa nt for hypertension and hypercholesterolemia associated with a "stomach" ulcer, status post partial s mall bowel resection 40 years ago, who presented with a 2-day history of nausea and vomiting that res ulted in emergency department presentation. He denied any associated fever or chills, and he denied any associated pain. Upon evaluation, he was noted to have acute kidney injury with significant elev ation in his creatinine above 4 associated with this nausea and anorexia. They additionally placed a urethral Ayala catheter because of incomplete emptying of his bladder in association with observed u pper tract hydronephrosis as documented in the CT below. The patient denies any issues that may have incited this decompensation. He acknowledged having some issues with incontinence of urine, for whi ch he was wearing Depend undergarments, but he says he was only wearing them just over a week prior t o the Emergency Department presentation where the catheter was placed. He denied any obstructive uri nary symptoms, but he is not the best historian. Past Medical History: Hypertension, CVA, hyperlipidemia, CKD with creatinine of 1.5, COPD. Past Surgical History: Partial small bowel resection. Family History: He denies any family history of urologic malignancy. Social History: He is a former smoker of about 1 pack per day for 20 years, but he quit about 2 year s ago. Allergies: NO KNOWN DRUG ALLERGIES. Physical Examination: General: He is alert and awake, but it is unclear his orientation status. While he is able to respo nd appropriately to questions, his verbal acuity is diminished. Respiratory: There was no dyspnea or sign of respiratory distress. Abdomen: Soft, nontender, and nondistended, and there was a midline chevron incision in the upper ab domen. Genitourinary: He had a urethral Ayala catheter in place draining clear yellow urine. Extremities: His lower extremities were nonedematous and there was no Rick sign. He was lying in a stretcher, comfortable appearing. Diagnostic Studies: CT scan, 10/23/2022, without contrast, impression: No acute intraabdominal or p elvic finding. Chronic severe left-sided hydronephrosis, which may be secondary to UPJ obstruction. The left kidney is likely nonfunctional. Moderate rectal stool burden which could indicate constipation and/or fecal impaction. Laboratory Analyses: White blood count 9.9, H/H 11.4/35.3, platelets 257, INR 1.25, creatinine 4.06 that improved to 3.14 with EGFR of 21 and a prior baseline creatinine around 1.5. Assessment And Recommendations: This is a 67-year-old gentleman with history of cerebrovascular acci dent, hypertension, hyperlipidemia, chronic kidney disease stage 3, chronic obstructive pulmonary dis ease, now with acute on chronic renal failure associated with bilateral hydronephrosis, left greater than right, associated with extreme cortical thinning on the left side, but the presence of definitiv e right-sided pelvocaliectasis to my review of the imaging. As indicated above, I reviewed the imaging in detail and while the radiologist did not make a finding of right-sided hydronephrosis, I am convinced that there is a degree of obstruction which also expla ined his renal function decompensation. As a result, I counseled the patient and recommended cystoscopy with bilateral ureteral stent placeme nt to relieve the obstruction and try to improve his renal function. I counseled the patient that th e stents were foreign bodies that would need to be extracted at some point and could not remain perma nent. I explained that there may be subsequent definitive management required to manage the obstruct ion causing this renal function decline. Additionally, the patient had significant incontinence even prior to the Emergency Department present ation, which is likely a consequence of his prior cerebrovascular accident but also potentially secon aristeo to BPH. He will require subsequent evaluation which may include urodynamics in addition to the cystoscopy performed intraoperatively as scheduled tomorrow morning at 7 a.m. N.p.o. after 11 p.m. tonight in preparation for surgery tomorrow. IV fluid hydration. WR/MODL Voice ID: [id number] Report ID: [id number]
[2022-10-25] MEDS ORDERED: propofoL 200 MG/20 ML VIAL IV ONE (06:44)
[2022-10-25] MEDS ORDERED: NA CHLORIDE 0.9% 1,000 ML ONE (06:45)
[2022-10-25] MEDS ORDERED: FENTANYL CITR 100 MCG/2 ML ONE (06:46)
[2022-10-25] MEDS ORDERED: ONDANSETRON 4 MG/2 ML VIAL ONE (06:46)
[2022-10-25] MEDS ORDERED: LIDOCAINE 1% MPF 5 ML VIAL ONE (06:46)
[2022-10-25] MEDS ORDERED: dexAMETHasone 10 MG/ML VIAL ONE (06:46)
[2022-10-25 07:37] VITALS: O2SAT 100
--- NOTE | 2022-10-25 07:48 | RAD REPORT ---
EXAM DESCRIPTION: RAD - Urethrocystogrphy Retrograde - 10/25/2022 7:41 am CLINICAL HISTORY: BILAT STENT COMPARISON: Stone Protocol dated 10/23/2022 FINDINGS/IMPRESSION: Nine intraoperative fluoroscopic images were submitted showing cannulation of b oth ureters with contrast injection. Bilateral ureteral stents were placed. Fluoro time: 33 seconds Cumulative dose: 10.5 mGy
[2022-10-25] MEDS: NA CHLORIDE 0.9% 1,000 ML IV SCH ×4 (08:55→20:16)
[2022-10-25] MEDS: CEFTRIAXONE 1,000 MG in NA CHLORIDE 0.9% 50 ML IVPB SCH ×2 (08:56→20:16)
--- NOTE | 2022-10-25 09:22 | OP ---
Surgeon: LARISSA GARCIA Preoperative Diagnoses: 1.Acute on chronic kidney disease. 2.Bilateral hydronephrosis. Postoperative Diagnoses: 1.Acute on chronic kidney disease. 2.Bilateral hydronephrosis. 3.Abnormal left retrograde pyelography. Principal Procedures: 1.Cystoscopy. 2.Bilateral retrograde pyelographies. 3.Bilateral ureteral stents placed. Findings: Blunting of the calyces without definitive ureteral obstruction seen on the right collecti ng system. The left collecting system with completely abnormal pelvocalyceal filling on retrograde d espite normal ureteral filling without evident ureteral nephrosis. Indication For Procedure: Mr. Marmolejo is a 67-year-old gentleman with multiple medical comorbidities, who presented to the emergency department with anorexia and intractable nausea and vomiting. He had a history of a CVA and also had some underlying voiding dysfunction with urinary incontinence for whi ch he was wearing Depends undergarments prior to presentation. A urethral Ayala catheter was placed and he was fluid resuscitated and his creatinine did improve; however, on imaging, there was signific ant left-sided hydronephrosis with thinning of the parenchyma indicative of a likely nonfunctional le ft kidney and the right side had suggestion of some pelvocaliectasis. As a result, given his acute o n chronic kidney disease, I recommended bilateral stent placements to allow resolution of his renal f ailure and hopefully return to baseline status while further evaluation is undertaken. Procedure In Detail: The patient was consented in the preoperative holding area before being transfe rred to the operative suite where general anesthesia was induced. He was given ceftriaxone as schedu led on the floor and his next dose was due at 9 a.m. As this was a 7 a.m. case, no additional IV ant imicrobial prophylaxis was provided. Pneumo boots were provided for DVT prophylaxis. He was placed in the lithotomy position, padded and secured to the table appropriately. His genitalia were prepped with Hibiclens and he was draped in standard fashion. The case was begun using a 22-Albanian rigid cy stoscope to traverse the urethra and into the bladder with ease. Below are the cystoscopic findings: 1.Meatus patent. 2.Urethra without stricture or lesion. 3.Prostatic urethra with [id number] lateral lobar hypertrophy, but significant elevated median bar and slight intravesical projection of a median lobe. This median lobe was abutting the trigone. 4.Bladder: No papillary mucosal lesions, foreign bodies or stones were noted throughout. The urete ral orifices were orthotopic in location. As a result, I cannulated the left ureteral orifice first using the tip of the Sensor wire and a 5-Fr ench ureteral access catheter and then performed a retrograde pyelogram. Left retrograde pyelography: Using a 70:30 mixture of Omnipaque and saline, contrast was injected via the lumen of the 5-Albanian ur eteral access catheter and did propagate up a relatively nondilated distal into the mid and proximal ureter without evidence of filling defect before entering the presumptive renal pelvic region where t here appeared to be just abnormal distribution of contrast almost consistent with contrast extravasat ion. Despite an additional contrast bolus given and apparent distribution into a very hydronephrotic lower pole calyceal system, this abnormality persisted. As a result, I passed a Sensor wire via the 5-Albanian ureteral access catheter and was able to get it to coil in the position of the mid lower po le calyces as had been delineated and diluted with contrast. Over this, I was able to pass a 6-Frenc h by 24 cm double-J stent with ease and coil it in that location. I then turned my attention to the right side, which was similarly cannulated using the tip of a Senso r wire and a 5-Albanian ureteral access catheter. I then performed a retrograde pyelogram on the right side. Right retrograde pyelography: Using a 70:30 mixture of Omnipaque and saline, the contrast was injected via the lumen of the 5-Frenc h ureteral access catheter and did propagate up a normal distal into the mid and proximal ureter with out evidence of ureteral nephrosis before there was a sharp right angle turn, without definitive obst ruction noted, before entering a nondilated renal pelvis, but with evidence of blunting of some of th e calyces. No filling defects were noted. As a result, I passed the Sensor wire via the 5-Albanian ur eteral access catheter into the collecting system where a coil was observed fluoroscopically, and ove r the Sensor wire, I passed a 6-Albanian by 26 cm double-J ureteral stent where a coil was observed flu oroscopically in the upper pole and 1 cystoscopically was formed in the bladder. I then removed the cystoscope and replaced a 16-Albanian coude tip catheter into his bladder with ease and put 10-15 cc of sterile water in the balloon. The catheter was connected to a leg bag and the patient was taken out of the lithotomy position. He was awakened from general anesthesia before being transferred to a [facility] and then transferred to the recovery room in good condition. Complications: None. Discharge Disposition: I recommend repeat imaging with an ultrasound to confirm the localization of the left ureteral stent within the putative renal pelvis. Subsequent evaluation may be determined as an outpatient given the absence of any definitive signs of UPJ obstruction or ureteral obstruction. BIPIN/MODL Voice ID: [id number] Report ID: [id number]
--- NOTE | 2022-10-25 10:02 | P.HP ---
Certification for Inpatient Patient admitted to: Inpatient With expected LOS: >2 Midnights Patient will require the following post-hospital care: None Practitioner: I am a practitioner with admitting privileges, knowledge of patient current condition, hospital course, and medical plan of care. Services: Services provided to patient in accordance with Admission requirements found in Title 42 Section 412.3 of the Code of Federal Regulations Patient History Date of Service: 10/23/22 Reason for admission: Acute kidney injury secondary to postobstructive renal failure History of Present Illness: 67-year-old gentleman who comes into the hospital with acute renal failure. Patient was seen a few weeks ago and had hydronephrosis of the left kidney. He had a CAT scan done in March which did not reveal the hydronephrosis. A function has worsened substantially. I believe he has an obstruction in the left UVJ that needs to be evaluated by urology. We have urology available in the morning. I will notify Dr. Cruz and make sure he is available prior to consulting him. Otherwise, we may need to transfer to a tertiary care facility. I talked to the patient's daughter and she states that she sees Dr. Cruz as an outpatient. He has benign prostatic hypertrophy. She will be admitted to the hospital for acute kidney injury. Allergies No Known Allergies Allergy (Verified 12/23/20 16:33) Home Medications: Tamsulosin [Flomax*] 2 cap PO DAILY 03/19/20 Aspirin 81 mg PO DAILY 12/23/20 Atorvastatin Calcium [Lipitor] 1 tab PO BEDTIME 12/23/20 carvediloL [Coreg*] 12.5 mg PO BID 12/23/20 Clopidogrel Bisulfate [Plavix*] 75 mg PO DAILY #30 tablet 09/05/21 Donepezil HCl 10 mg PO DAILY 09/05/21 Amlodipine [Norvasc*] 10 mg PO DAILY 10/24/22 Carbidopa/Levodopa 25-100 [Sinemet 25-100*] 25 - 100 mg PO TID 10/24/22 - Past Medical/Surgical History Has patient received pneumonia vaccine in the past: Yes Diabetic: No -: HTN -: Hyperlipidemia -: Chronic Kidney disease -: COPD -: History of Cocaine abuse -: Carotid Occlusive Disease -: History of CVA/TIA-no residual -: Chronic Hepatitis C -: Chronic Back pain -: Cervical Spondylosis -: UGI bleed -: Lt shoulder sx -: GI ulcer sx Psychosocial/ Personal History: . 8-Children. Has home health. - Family History Mother Medical History: Hypertension Father Medical History: Hypertension Notes: Brother Medical History: Hypertension Sister Medical History: Hypertension - Social History Smoking Status: Former smoker Alcohol use: Yes CD- Drugs: Yes Caffeine use: No Place of Residence: Home Review of Systems 10-point ROS is otherwise unremarkable Physical Examination - Vital Signs Temperature: 96.6 F Blood Pressure: 173/66 Pulse: 57 Respirations: 16 Pulse Ox (%): 100 - Physical Exam General: Alert, In no apparent distress, Oriented x3 HEENT: Atraumatic, Normocephalic Neck: Supple, 2+ carotid pulse no bruit, JVD not distended Cardiovascular: Regular rate/rhythm, Normal S1 S2 Gastrointestinal: Normal bowel sounds, Soft and benign, Non-distended Musculoskeletal: No clubbing, No swelling Integumentary: No rashes Neurological: Normal gait, Normal speech, Normal strength at 5/5 x4 extr, Normal tone, Sensation intact, Cranial nerves 3-12 intact Lymphatics: No axilla or inguinal lymphadenopathy Assessment & Plan - Problems (Diagnosis) (1) Acute renal insufficiency Current Visit: No Status: Acute (2) BPH (benign prostatic hyperplasia) Current Visit: No Status: Acute (3) Chronic kidney disease (CKD) stage G3a/A2, moderately decreased glomerular filtration rate (GFR) between 45-59 mL/min/1.73 square meter and albuminuria creatinine ratio between 30-299 mg/g Current Visit: No Status: Acute (4) Dehydration Current Visit: No Status: Acute (5) History of CVA (cerebrovascular accident) Current Visit: No Status: Acute (6) Hydronephrosis, left Current Visit: No Status: Acute - Plan Plan: 1. Patient with obstructive uropathy of the left kidney. Consulted nephrology and urology. We will get a [employer] scan to see how well the left kidney is functioning. She may need stent placement pending urology evaluation. Continue with gentle hydration and monitor renal function. Appreciate security and privacy consultant assistance. - Advance Directives Does patient have a Living Will: No Does patient have a Durable POA for Healthcare: No - Code Status/Comfort Care Code Status Assessed: Yes Code Status: Full Code Critical Care: No Time Spent Managing PTS Care (In Minutes): 45
--- NOTE | 2022-10-25 10:07 | P.PN ---
Subjective Date of Service: 10/24/22 Subjective: No new changes, No C/O voiced, Improving Review of Systems 10-point ROS is otherwise unremarkable Physical Examination - Vital Signs Temperature: 96.6 F Blood Pressure: 173/66 Pulse: 57 Respirations: 16 Pulse Ox (%): 100 - Physical Exam General: Alert, In no apparent distress, Oriented x3 HEENT: Atraumatic, PERRLA, EOMI Neck: Supple, JVD not distended Respiratory: Clear to auscultation bilaterally, Normal air movement Cardiovascular: Regular rate/rhythm, Normal S1 S2 Gastrointestinal: Normal bowel sounds, No tenderness Musculoskeletal: No tenderness Integumentary: No rashes Neurological: Normal speech, Normal tone, Normal affect Lymphatics: No axilla or inguinal lymphadenopathy - Studies Medications List Reviewed: Yes Assessment & Plan - Problems (Diagnosis) (1) Acute renal insufficiency Current Visit: No Status: Acute (2) BPH (benign prostatic hyperplasia) Current Visit: No Status: Acute (3) Chronic kidney disease (CKD) stage G3a/A2, moderately decreased glomerular filtration rate (GFR) between 45-59 mL/min/1.73 square meter and albuminuria creatinine ratio between 30-299 mg/g Current Visit: No Status: Acute (4) Dehydration Current Visit: No Status: Acute (5) History of CVA (cerebrovascular accident) Current Visit: No Status: Acute (6) Hydronephrosis, left Current Visit: No Status: Acute - Plan Plan: 1. Patient with obstructive uropathy of the left kidney. Consulted nephrology and urology. We will get a [employer] scan in AM to see how well the left kidney is functioning. 2. Continue with gentle hydration and monitor renal function. 3. To the OR today. Renal function has improved slightly. Continue monitoring after stent placement. Discharge Plan: Home Plan to discharge in: Greater than 2 days - Advance Directives Does patient have a Living Will: No Does patient have a Durable POA for Healthcare: No - Code Status/Comfort Care Code Status: Full Code Critical Care: No Time Spent Managing PTS Care (In Minutes): 30
[2022-10-25 11:37] LABS: Absolute Lymphocytes (CBC) 0.7 K/uL (0.7-4.9); Hematocrit 39.7 % (39.6-49.0); Lymphocytes % 9.7 % (15.3-44.8); MCV 82.7 fL (80-100); MPV 9.8 fL (7.6-11.3)
[2022-10-25 11:51] LABS: Potassium 4.4 mmol/L (3.5-5.1)
--- NOTE | 2022-10-25 14:09 | RAD REPORT ---
EXAM DESCRIPTION: US - Renal Ultrasound-Complete - 10/25/2022 1:31 pm CLINICAL HISTORY: placement of stent COMPARISON: Stone Protocol dated 10/23/2022; Urethrocystogrphy Retrograde dated 10/25/2022; Abdomen Pelvis Wo Contrast dated 10/11/2022 FINDINGS: The right kidney measures grossly 8 x 6 x 5 cm. The left kidney cannot be clearly measure d. A 2 centimeter exophytic lower pole right renal cyst is present. A 5 centimeter thin-walled cyst fill s the medial mid and upper right kidney. A 3 centimeter cyst is present as an exophytic mass projecti ng from the medial upper pole. No solid mass of the right kidney. The right ureteral stent seen on e 10/25 stent placement images not clearly defined. Left renal parenchymal tissue is very difficult to define. There is a large lobulated cystic mass kirstin ling the left renal parenchyma and hilum. This could be all marked hydronephrosis. Hydronephrosis and numerous left renal cysts possible as well. These cannot be distinguished. There is a very thin hattie l cortex on the left is poorly visualized. No solid mass of the left kidney seen. A stent on the left is not clearly visualized. Urinary bladder is fully contracted around a Ayala catheter. IMPRESSION: Proximal portions of the ureteral stents seen on the 10/25 procedure imaging are not milvia jonathan defined at sonography. Multiple right-sided cysts are present without right-sided hydronephrosis identifiable. Very thin left renal cortex is poorly visualized. A large lobulated cystic mass complex fills the lef t renal volume and left hilum. This could be numerous large abutting renal cysts, hydronephrosis or a combination.
[2022-10-25] MEDS ORDERED: BISACODYL E.C. 5 MG TAB PO PRN (16:16)
[2022-10-25] MEDS ORDERED: LACTULOSE 20 GM/30 ML UCUP PO ONE (17:00)
[2022-10-26 06:18] LABS: Lymphocytes % 18.6 % (15.3-44.8); MPV 9.9 fL (7.6-11.3); RBC Red Blood Cell Count 4.27 M/uL (4.33-5.43)
[2022-10-26 06:36] LABS: Magnesium 1.9 mg/dL (1.6-2.4); Phosphorus 3.5 mg/dL (2.5-4.9)
[2022-10-26] MEDS: NA CHLORIDE 0.9% 1,000 ML IV SCH (08:54)
[2022-10-26] MEDS: CEFTRIAXONE 1,000 MG in NA CHLORIDE 0.9% 50 ML IVPB SCH (08:55)
[2022-10-26] MEDS ORDERED: carvediloL 12.5 MG TAB PO SCH (09:00)
[2022-10-26] MEDS ORDERED: CLOPIDOGREL 75 MG TABLET PO SCH (09:00)
[2022-10-26] MEDS ORDERED: ASPIRIN 81 MG CHEWABLE TABLET PO SCH (09:00)
[2022-10-26] MEDS ORDERED: CARBIDOPA/LEVODOPA 25/100 TAB PO SCH (09:00)
[2022-10-26] MEDS: TAMSULOSIN 0.4 MG SR CAP PO SCH (12:31)
[2022-10-26 12:33] VITALS: BP 167/86
[2022-10-26 13:06] VITALS: TEMP 98
[2022-10-26] MEDS ORDERED: DONEPEZIL HCL 5 MG TAB PO SCH (21:00)
[2022-10-26] MEDS ORDERED: ATORVASTATIN 40 MG TAB PO SCH (21:00)
[2022-10-27] MEDS ORDERED: AMLODIPINE 10 MG TAB PO SCH (09:00)
== END 2022-10-26 13:41 | disposition home health service (06) | DRG 683 ==
LOC: ER 11:27 → ERHOLD 17:22 → 2ND 20:27
PROVIDERS: ADMIT Hospitalist; ATTEND Hospitalist
PROC: 0WHR8YZ Insertion of Other Device into Genitourinary Tract, Via Natural or Artificial Opening Endoscopic (ICD-10-PCS; principal; 2022-10-23)
PROC: BT141ZZ Fluoroscopy of Kidneys, Ureters and Bladder using Low Osmolar Contrast (ICD-10-PCS; 2022-10-23)
DX: N17.9 Acute kidney failure, unspecified (principal); N39.0 Urinary tract infection, site not specified; I12.9 Hypertensive chronic kidney disease with stage 1 through stage 4 chronic kidney disease, or unspecified chronic kidney disease; N13.30 Unspecified hydronephrosis; N18.31 Chronic kidney disease, stage 3a; E86.0 Dehydration; N40.1 Benign prostatic hyperplasia with lower urinary tract symptoms; R33.8 Other retention of urine; R32 Unspecified urinary incontinence; E78.5 Hyperlipidemia, unspecified; J44.9 Chronic obstructive pulmonary disease, unspecified; B18.2 Chronic viral hepatitis C; E78.00 Pure hypercholesterolemia, unspecified; M54.9 Dorsalgia, unspecified; G89.29 Other chronic pain; M47.812 Spondylosis without myelopathy or radiculopathy, cervical region; K25.9 Gastric ulcer, unspecified as acute or chronic, without hemorrhage or perforation; I65.29 Occlusion and stenosis of unspecified carotid artery; Z79.899 Other long term (current) drug therapy; Z79.82 Long term (current) use of aspirin; Z86.73 Personal history of transient ischemic attack (TIA), and cerebral infarction without residual deficits; Z87.891 Personal history of nicotine dependence; Z90.49 Acquired absence of other specified parts of digestive tract; Z82.49 Family history of ischemic heart disease and other diseases of the circulatory system
CPT/HCPCS: 36415; 51610; 70450; 71045; 74176; 74450; 76377; 76770; 80048; 80053; 80076; 81003; 81015; 83690; 83735; 83880; 84100; 84484; 85025; 85610; 87086; 87088; 87811; 93005; 96361; 96374; 96375; 99285; J1100; J2001; J2405; J2704; J3010; J7030

== ENCOUNTER 2022-10-27 18:34 | Emergency (ER) | payer OTHER ==
--- OUTSIDE RECORDS SUMMARY | 2022-10-27 18:40 | XMS REPORT | Continuity of Care Document ---
:1955 Author Organization [facility] t Address [address] [place] [address] Care Team Providers Name Role Phone Unknown, Physician Primary Care Physician Unavailable Barrie Real Attending Clinician Unavailable Javier Weinstein Rahil Attending Clinician Unavailable [id number] Attending Clinician Unavailable JAVIER WEINSTEIN Attending Clinician [...] Unavailable Javier Weinstein Rahil Admitting Clinician Unavailable [id number] Admitting Clinician Unavailable BARRIE REAL Admitting Clinician Unavailable JAZZ ALAMO Admitting Clinician Unavailable ROBERT REYESEEN Admitting Clinician Unavailable [id number]_AH Admitting Clinician Unavailable Payers Payer Name Policy Type Policy Number Effective Date Expiration Date S mendez HUMANA [id number] 2022 00:00:00 HUMM HUMM [id number] HU[employer]NA MEDICARE 53 [id number] 2022 [facility] nimco 00:00:00 - [facility] HUMANA MEDICARE 53 [id number] 2020 [facility] nimco 00:00:00 - [facility] [id number] [facility] [id number] [facility] [employer] (MEDICARE REPLACEMENT/ADV ANTAGE - HMO) Problems Condition Condition Condition Status Onset Resolution Last Treating Co mments Source Name Details Category Date Date Treatment Clinician Date Hemiplegia Hemiparesi Problem C ommon of s of right Spirit dominant dominant - CHI side as side as St late late [facility] effect of effect of Medi jarrett cerebrovas cerebral Cent er cular infarction disease Dementia +6th digit Problem Com mon with eff Spirit behavioral 07/29/22*De - [facility] disturbanc mentia, [facility]ifie [facility] with [facility] behavioral Center disturbanc e Chronic 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 (disorder) [facility] [id number] Parkinson Problem Comm on disease Spirit - [facility] History of History of Problem C ommon transient transient Spir it ischemic ischemic - CHI attack attack [facility] Chronic +5th digit Problem Comm on kidney eff Spirit disease 07/29/20*Ch - CHI stage 3 ronic kidney [facility] disease, Medical stage 3 Ida [id number] Tobacco Problem Commo n abuse Spirit counseling - [facility] Chronic Chronic Problem Common obstructiv obstructiv Sp nimco e e - CHI pulmonary [facility] Med[facility] l d Ida [id number] Hyperlipid Problem Com mon emia, Spirit unspecifie - CHI d hyperlipid [facility] emia type Medical Ida [id number] FDC Problem Com mon (current) Spirit use of - [facility] platelets Medical Ida [id number] Cerebrovas Problem Co mmon cular Spirit accident - CHI (CVA) of [facility] right [facility] [id number] NPH Problem Common (normal Spirit pressure - [facility] hydrocepha [facility]) [facility] Chronic Other Problem Common pain chronic Spirit pain - [facility] [id number] Dysuria Problem Common Spirit [facility] Eruption Groin rash Problem Com mon of skin Spirit [facility] [id number] Bloody Problem Common drainage Spirit from penis - [facility] [id number] Urinary Problem Common hesitancy [facility] [id number] Hematuria, Problem Com mon unspecifie Spirit d type - [facility] [id number] Urinary Problem Commo n incontinen Spirit ce, - CHI unspecifie [facility] Chronic Hypertensi Problem Comm on kidney ve CKD Spirit disease (chronic - CHI due to kidney St hypertensi disease) [facility] [id number] Agitation Problem Com mon Spirit - [facility] [id number] Ataxic Problem Common gait 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 - CHI , single [facility] [id number] BPH loc w Problem Com mon urin Spirit obs/LUTS - [facility] Allergies, Adverse Reactions, Alerts Allergy Allergy Status Severity Reaction(s) Onset Inactive Treating Comm ents Source Name Type Date Date Clinician NKA Allergy Active ENCCLR 05-22 12:30: 40 NKA Allergy Active ENCCLR 05-22 12:30: 40 NKA Allergy Active ENCCLR 05-22 12:30: 40 No Known DA Active [facility] All[facility]ie 2-11 [place] [facility] 00:00: d 00 [facility] No Known DA Active [facility] All[facility]ie 2-11 [facility] 00:[facility]: d 00 [facility] Social History Social Habit Start Date Stop Date Quantity Comments Source History of Tobacco Current Smoker Co mmon Spirit - Use [facility] Sex Assigned At Common Sp nimco - [facility] Exposure to 2022-05-26 2022-06-05 Not sure [facility] SARS-CoV-2 (event) 00:00:00 13:46:00 Smoking Status Start Date Stop Date Source Ex-smoker [facility] Current Smoker 2022-10-13 00:00:00 [facility] Spiri t [facility] Medications Ordered Filled Start Stop Current Ordering Indication Dosage Frequency Signature Comments Components Source Medication Medication Date Date Medication? Clinician (SIG) Name Name navin-l 2022- No [id number] 1{tbl} Q.[id number] Take 1 UT evodopa 06-05 [id number] tablet by Health (Sinemet) 00:00: 04:59 3D mouth in 25-100 MG 00 :00 the tablet morning and 1 tablet at noon and 1 tablet in the evening. levETIRAcet Yes [id number] 500mg Q.5D Take 1 UT am (Keppra) 7-09 tablet Health 500 MG 00:00: (500 mg tablet 00 total) by mouth in the morning and 1 tablet (500 mg total) in the evening. memantine Yes [id number] 10mg Q.5D Take 1 UT (Namenda) 7-09 tablet (10 Heal th 10 MG 00:00: mg total) tablet 00 by mouth in the morning and 1 tablet (10 mg total) in the evening. levETIRAcet Yes [id number] 500mg Q.5D Take 1 UT am (Keppra) 7-09 tablet Health 500 MG 00:00: (500 mg tablet 00 total) by mouth in the morning and 1 tablet (500 mg total) in the evening. memantine Yes [id number] 10mg Q.5D Take 1 UT (Namenda) 7-09 tablet (10 Heal th 10 MG 00:00: mg total) tablet 00 by mouth in the morning and 1 tablet (10 mg total) in the evening. levETIRAcet 2021-0 Yes [id number] 500mg Q.5D Take 1 UT am (Keppra) 7-09 tablet Health 500 MG 00:00: (500 mg tablet 00 total) by mouth in the morning and 1 tablet (500 mg total) in the evening. memantine 2021-0 Yes [id number] 10mg Q.5D Take 1 UT (Namenda) 7-09 [...] tablet sulfamethox 2020-10 Yes UT azole-trime 10-29 [facility] thoprim 00:00: (Bactrim 00 DS) [id number] [...] Date Status Commen ts Source Name Name [place] [id number] 2021-09-28 Completed Co mmon [facility] Vaccine (Low Dose Vaccine (Low Dose 14:33:00 - [facility] Booster[facility] [place] [id number] 2021-09-28 Completed Co mmon [facility] Vaccine (Low Dose Vaccine (Low Dose 14:33:00 - [facility] Booster) Booster) [place] [address] 2021-09-28 Completed Co mmon [facility] Vaccine (Low Dose Vaccine (Low Dose 14:33:00 - [facility] Booster) Booster) [place] [address] 2021-09-28 Completed Co mmon [facility] Vaccine (Low Dose Vaccine (Low Dose 14:33:00 [facility] [address] [facility]-09-28 Completed Co mmon [facility] Vaccine (Low Dose Vaccine (Low Dose 14:33:00 [facility] Bo[facility] Booster) [address] [facility] 2021-09-28 Completed Co mmon [facility] Vaccine (Low Dose Vaccine (Low Dose 14:33:00 - [facility] Booster[facility] Booster) [address] [facility] 2021-09-28 Completed Co mmon [facility] Vaccine (Low Dose Vaccine (Low Dose 14:33:00 [facility] [address] [facility] 2021-09-28 Completed Co mmon [facility] Vaccine (Low Dose Vaccine (Low Dose 14:33:00 [facility] [facility] 2021-09-28 Completed Co mmon [facility] Vaccine (Low Dose Vaccine (Low Dose 14:33:00 [facility] [facility] 2021-09-28 Completed Co mmon [facility] Vaccine (Low Dose Vaccine (Low Dose 14:33:00 [facility] [facility] 2021-09-28 Completed Co mmon [facility] Vaccine (Low Dose Vaccine (Low Dose 14:33:00 [facility] 2021-09-28 Completed Co mmon [facility] Vaccine (Low Dose Vaccine (Low Dose 14:33:00 [facility]oster[facility] 2021-09-28 Completed Co mmon [facility] Vaccine (Low Dose Vaccine (Low Dose 14:33:00 [facility] [facility] 2021-09-28 Completed Co mmon [facility] Vaccine (Low Dose Vaccine (Low Dose 14:33:00 [facility] Booster[facility] Booster) [facility] FLUZONE HIGH DOSE FLUZONE HIGH DOSE 2021-08-28 Completed [facility] OVER 65 OVER 65 15:01:00 [facility] FLUZONE HIGH DOSE FLUZONE HIGH DOSE 2021-08-28 Completed [facility] OVER 65 OVER 65 15:01:00 [facility] FLUZONE HIGH DOSE FLUZONE HIGH DOSE 2021-08-28 Completed [facility] OVER 65 OVER 65 15:01:00 [facility] FLUZONE HIGH DOSE FLUZONE HIGH DOSE 2021-08-28 Completed [facility] OVER 65 OVER 65 15:01:00 [facility] FLUZONE HIGH DOSE FLUZONE HIGH DOSE 2021-08-28 Completed [facility] OVER 65 OVER 65 15:01:00 [facility] FLUZONE HIGH DOSE FLUZONE HIGH DOSE 2021-08-28 Completed [facility] OVER 65 OVER 65 15:01:00 - [facility] FLUZONE HIGH DOSE FLUZONE HIGH DOSE 2021-08-28 Completed [facility] OVER 65 OVER 65 15:01:00 - [facility] FLUZONE HIGH DOSE FLUZONE HIGH DOSE 2021-08-28 Completed [facility] OVER 65 OVER 65 15:01:00 - [facility] FLUZONE HIGH DOSE FLUZONE HIGH DOSE 2021-08-28 Completed [facility] OVER 65 OVER 65 15:01:00 - [facility] FLUZONE HIGH DOSE FLUZONE HIGH DOSE 2021-08-28 Completed [facility] OVER 65 OVER 65 15:01:00 - [facility] FLUZONE HIGH DOSE FLUZONE HIGH DOSE 2021-08-28 Completed [facility] OVER 65 OVER 65 15:01:00 - [facility] FLUZONE HIGH DOSE FLUZONE HIGH DOSE 2021-08-28 Completed [facility] OVER 65 OVER 65 15:01:00 - [facility] FLUZONE HIGH DOSE FLUZONE HIGH DOSE 2021-08-28 Completed [facility] OVER 65 OVER 65 15:01:00 - [facility] FLUZONE HIGH DOSE FLUZONE HIGH DOSE 2021-08-28 Completed [facility] OVER 65 OVER 65 15:01:00 - [facility] Moderna COVID-19 Moderna COVID-19 2021-01-04 Completed Co mmon [facility] Vaccine Vaccine 14:35:00 - [facility] Moderna COVID-19 Moderna COVID-19 2021-01-04 Completed Co mmon [facility] Vaccine Vaccine 14:35:00 - [facility] Moderna COVID-19 Moderna COVID-19 2021-01-04 Completed Co mmon [facility] Vaccine Vaccine 14:35:00 [facility] Moderna COVID-19 Moderna COVID-19 2021-01-04 Completed Co mmon [facility] Vaccine Vaccine 14:35:00 - [facility] Moderna COVID-19 Moderna COVID-19 2021-01-04 Completed Co mmon [facility] Vaccine Vaccine 14:35:00 - [facility] Moderna COVID-19 Moderna COVID-19 2021-01-04 Completed Co mmon [facility] Vaccine Vaccine 14:35:00 - [facility] Moderna COVID-19 Moderna COVID-19 2021-01-04 Completed Co mmon [facility] Vaccine Vaccine 14:35:00 - [facility] Moderna COVID-19 Moderna COVID-19 2021-01-04 Completed Co mmon [facility] Vaccine Vaccine 14:35:00 - [facility] Moderna COVID-19 Moderna COVID-19 2021-01-04 Completed Co mmon [facility] Vaccine Vaccine 14:35:00 - [facility] Moderna COVID-19 Moderna COVID-19 2021-01-04 Completed Co mmon [facility] Vaccine Vaccine 14:35:00 - [facility] Moderna COVID-19 Moderna COVID-19 2021-01-04 Completed Co mmon [facility] Vaccine Vaccine 14:35:00 - [facility] Moderna COVID-19 Moderna COVID-19 2021-01-04 Completed Co mmon [facility] Vaccine Vaccine 14:35:00 - [facility] Moderna COVID-19 Moderna COVID-19 2021-01-04 Completed Co mmon [facility] Vaccine Vaccine 14:35:00 - [facility] Moderna COVID-19 Moderna COVID-19 2021-01-04 Completed Co mmon [facility] Vaccine Vaccine 14:35:00 - [facility] Moderna COVID-19 Moderna COVID-19 2020-12-03 Completed Co mmon [facility] Vaccine Vaccine 14:34:00 - [facility] Moderna COVID-19 Moderna COVID-19 2020-12-03 Completed Co mmon [facility] Vaccine Vaccine 14:34:00 - [facility] Moderna COVID-19 Moderna COVID-19 2020-12-03 Completed Co mmon [facility] Vaccine Vaccine 14:34:00 - [facility] Moderna COVID-19 Moderna COVID-19 2020-12-03 Completed Co mmon [facility] Vaccine Vaccine 14:34:00 - [facility] Moderna COVID-19 Moderna COVID-19 2020-12-03 Completed Co mmon [facility] Vaccine Vaccine 14:34:00 - [facility] Moderna COVID-19 Moderna COVID-19 2020-12-03 Completed Co mmon [facility] Vaccine Vaccine 14:34:00 - [facility] Moderna COVID-19 Moderna COVID-19 2020-12-03 Completed Co mmon [facility] Vaccine Vaccine 14:34:00 - [facility] Moderna COVID-19 Moderna COVID-19 2020-12-03 Completed Co mmon [facility] Vaccine Vaccine 14:34:00 - [facility] Moderna COVID-19 Moderna COVID-19 2020-12-03 Completed Co mmon [facility] Vaccine Vaccine 14:34:00 - [facility] Moderna COVID-19 Moderna COVID-19 2020-12-03 Completed Co mmon [facility] Vaccine Vaccine 14:34:00 - [facility] Moderna COVID-19 Moderna COVID-19 2020-12-03 Completed Co mmon [facility] Vaccine Vaccine 14:34:00 - [facility] Moderna COVID-19 Moderna COVID-19 2020-12-03 Completed Co mmon [facility] Vaccine Vaccine 14:34:00 - [facility] Moderna COVID-19 Moderna COVID-19 2020-12-03 Completed Co mmon [facility] Vaccine Vaccine 14:34:00 - [facility] Moderna COVID-19 Moderna COVID-19 2020-12-03 Completed Co mmon [facility] Vaccine Vaccine 14:34:00 [facility] FLUZONE HIGH DOSE FLUZONE HIGH DOSE 2020-07-15 Completed [facility] OVER 65 OVER 65 10:07:00 [facility] FLUZONE HIGH DOSE FLUZONE HIGH DOSE 2020-07-15 Completed [facility] OVER 65 OVER 65 10:07:00 [facility] FLUZONE HIGH DOSE FLUZONE HIGH DOSE 2020-07-15 Completed [facility] OVER 65 OVER 65 10:07:00 [facility] FLUZONE HIGH DOSE FLUZONE HIGH DOSE 2020-07-15 Completed [facility] OVER 65 OVER 65 10:07:00 [facility] FLUZONE HIGH DOSE FLUZONE HIGH DOSE 2020-07-15 Completed [facility] OVER 65 OVER 65 10:07:00 - [facility] FLUZONE HIGH DOSE FLUZONE HIGH DOSE 2020-07-15 Completed [facility] OVER 65 OVER 65 10:07:00 - [facility] FLUZONE HIGH DOSE FLUZONE HIGH DOSE 2020-07-15 Completed [facility] OVER 65 OVER 65 10:07:00 - [facility] FLUZONE HIGH DOSE FLUZONE HIGH DOSE 2020-07-15 Completed [facility] OVER 65 OVER 65 10:07:00 - [facility] FLUZONE HIGH DOSE FLUZONE HIGH DOSE 2020-07-15 Completed [facility] OVER 65 OVER 65 10:07:00 - [facility] FLUZONE HIGH DOSE FLUZONE HIGH DOSE 2020-07-15 Completed [facility] OVER 65 OVER 65 10:07:00 - [facility] FLUZONE HIGH DOSE FLUZONE HIGH DOSE 2020-07-15 Completed [facility] OVER 65 OVER 65 10:07:00 - [facility] FLUZONE HIGH DOSE FLUZONE HIGH DOSE 2020-07-15 Completed [facility] OVER 65 OVER 65 10:07:00 - [facility] FLUZONE HIGH DOSE FLUZONE HIGH DOSE 2020-07-15 Completed [facility] OVER 65 OVER 65 10:07:00 - [facility] FLUZONE HIGH DOSE FLUZONE HIGH DOSE 2020-07-15 Completed [facility] OVER 65 OVER 65 10:07:00 - [facility] FLUZONE HIGH DOSE FLUZONE HIGH DOSE 2019-08-13 Completed [facility] OVER 65 OVER 65 14:41:00 - [facility] FLUZONE HIGH DOSE FLUZONE HIGH DOSE 2019-08-13 Completed [facility] OVER 65 OVER 65 14:41:00 - [facility] FLUZONE HIGH DOSE FLUZONE HIGH DOSE 2019-08-13 Completed [facility] OVER 65 OVER 65 14:41:00 - [facility] FLUZONE HIGH DOSE FLUZONE HIGH DOSE 2019-08-13 Completed [facility] OVER 65 OVER 65 14:41:00 - [facility] FLUZONE HIGH DOSE FLUZONE HIGH DOSE 2019-08-13 Completed [facility] OVER 65 OVER 65 14:41:00 - [facility] FLUZONE HIGH DOSE FLUZONE HIGH DOSE 2019-08-13 Completed [facility] OVER 65 OVER 65 14:41:00 - [facility] FLUZONE HIGH DOSE FLUZONE HIGH DOSE 2019-08-13 Completed [facility] OVER 65 OVER 65 14:41:00 - [facility] FLUZONE HIGH DOSE FLUZONE HIGH DOSE 2019-08-13 Completed [facility] OVER 65 OVER 65 14:41:00 - [facility] FLUZONE HIGH DOSE FLUZONE HIGH DOSE 2019-08-13 Completed [facility] OVER 65 OVER 65 14:41:00 - [facility] FLUZONE HIGH DOSE FLUZONE HIGH DOSE 2019-08-13 Completed [facility] OVER 65 OVER 65 14:41:00 - [facility] FLUZONE HIGH DOSE FLUZONE HIGH DOSE 2019-08-13 Completed [facility] OVER 65 OVER 65 14:41:00 - [facility] FLUZONE HIGH DOSE FLUZONE HIGH DOSE 2019-08-13 Completed [facility] OVER 65 OVER 65 14:41:00 - [facility] FLUZONE HIGH DOSE FLUZONE HIGH DOSE 2019-08-13 Completed [facility] OVER 65 OVER 65 14:41:00 - [facility] FLUZONE HIGH DOSE FLUZONE HIGH DOSE 2019-08-13 Completed [facility] OVER 65 OVER 65 14:41:00 - [facility] FLUZONE HIGH DOSE FLUZONE HIGH DOSE 2018-08-15 Completed [facility] OVER 65 OVER 65 11:52:00 - [facility] FLUZONE HIGH DOSE FLUZONE HIGH DOSE 2018-08-15 Completed [facility] OVER 65 OVER 65 11:52:00 - [facility] FLUZONE HIGH DOSE FLUZONE HIGH DOSE 2018-08-15 Completed [facility] OVER 65 OVER 65 11:52:00 - [facility] FLUZONE HIGH DOSE FLUZONE HIGH DOSE 2018-08-15 Completed [facility] OVER 65 OVER 65 11:52:00 - [facility] FLUZONE HIGH DOSE FLUZONE HIGH DOSE 2018-08-15 Completed [facility] OVER 65 OVER 65 11:52:00 - [facility] FLUZONE HIGH DOSE FLUZONE HIGH DOSE 2018-08-15 Completed [facility] OVER 65 OVER 65 11:52:00 - [facility] FLUZONE HIGH DOSE FLUZONE HIGH DOSE 2018-08-15 Completed [facility] OVER 65 OVER 65 11:52:00 - [facility] FLUZONE HIGH DOSE FLUZONE HIGH DOSE 2018-08-15 Completed [facility] OVER 65 OVER 65 11:52:00 - [facility] FLUZONE HIGH DOSE FLUZONE HIGH DOSE 2018-08-15 Completed [facility] OVER 65 OVER 65 11:52:00 - [facility] FLUZONE HIGH DOSE FLUZONE HIGH DOSE 2018-08-15 Completed [facility] OVER 65 OVER 65 11:52:00 - [facility] FLUZONE HIGH DOSE FLUZONE HIGH DOSE 2018-08-15 Completed [facility] OVER 65 OVER 65 11:52:00 - [facility] FLUZONE HIGH DOSE FLUZONE HIGH DOSE 2018-08-15 Completed [facility] OVER 65 OVER 65 11:52:00 - [facility] FLUZONE HIGH DOSE FLUZONE HIGH DOSE 2018-08-15 Completed [facility] OVER 65 OVER 65 11:52:00 - [facility] FLUZONE HIGH DOSE FLUZONE HIGH DOSE 2018-08-15 Completed [facility] OVER 65 OVER 65 11:52:00 - [facility] Vital Signs Vital Name Observation Time Observation Value Comments Source height 2022-10-18 08:00:00 71 [in_i] [facility] weight 2022-10-18 08:00:00 152 [lb_av] [facility] temperature 2022-10-18 08:00:00 97.4 [degF] [facility] bmi 2022-10-18 08:00:00 21.2 kg/m2 [facility] blood pressure 2022-10-18 08:00:00 125 mm[Hg] [facility] - systolic [facility] blood pressure 2022-10-18 08:00:00 70 mm[Hg] [facility] - diastolic [facility] height 2022-07-05 16:00:00 71 [in_i] [facility] weight 2022-07-05 16:00:00 150 [lb_av] [facility] temperature 2022-07-05 16:00:00 98 [degF] [facility] - [facility] bmi 2022-07-05 16:00:00 20.92 kg/m2 [facility] - [facility] blood pressure 2022-07-05 16:00:00 119 mm[Hg] [facility] - systolic [facility] blood pressure 2022-07-05 16:00:00 75 mm[Hg] [facility] - diastolic [facility] height 2022-07-05 15:30:00 71 [in_i] [facility] weight 2022-07-05 15:30:00 150 [lb_av] [facility] temperature 2022-07-05 15:30:00 98 [degF] [facility] - [facility] bmi 2022-07-05 15:30:00 20.92 kg/m2 [facility] - [facility] blood pressure 2022-07-05 15:30:00 119 mm[Hg] [facility] - systolic [facility] blood pressure 2022-07-05 15:30:00 75 mm[Hg] [facility] - diastolic [facility] height 2022-05-31 16:20:00 71 [in_i] [facility] weight 2022-05-31 16:20:00 150.0 [lb_av] [facility] - [facility] temperature 2022-05-31 16:20:00 98.2 [degF] [facility] - [facility] bmi 2022-05-31 16:20:00 20.92 kg/m2 [facility] 16:20:00 97 % [facility] 2022-05-31 16:20:00 18 /min Comm on [facility] blood pressure 2022-05-31 16:20:00 122 mm[Hg] [facility] - systolic [facility] blood pressure 2022-05-31 16:20:00 58 mm[Hg] [facility] - diastolic [facility] Systolic blood 2022-04-11 18:12:00 153 mm[Hg] [facility] Diastolic blood 2022-04-11 18:12:00 69 mm[Hg] [place] [facility] Heart rate 2022-04-11 18:12:00 71 /min [facility] height 2022-03-22 13:00:00 71 [in_i] [facility] weight 2022-03-22 13:00:00 150 [lb_av] [facility] temperature 2022-03-22 13:00:00 98.2 [degF] [facility] bmi 2022-03-22 13:00:00 20.92 kg/m2 [facility] oximetry 2022-03-22 13:00:00 99 % [facility] respiratory rate 2022-03-22 13:00:00 17 /min Comm on [facility] blood pressure 2022-03-22 13:00:00 90 mm[Hg] Common [facility] - systolic [facility] blood pressure 2022-03-22 13:00:00 54 mm[Hg] Common [facility] - diastolic [facility] Procedures Procedure Date / Time Performed Performing Clinician [facility] e HEAVY METALS SCREEN, URINE 2022-04-18 20:15:00 Lewis Mccarty [facility] VITAMIN B12 2022-04-14 00:00:00 Lewis Mccarty [facility] TSH 2022-04-14 00:00:00 Lewis Mccarty [facility] COPPER 2022-04-14 00:00:00 Lewis Mccarty [facility] Encounters Start End Encounter Admission Attending Care Care Encounter Source Date/Time Date/Time Type Type Clinicians Facility Department ID 2022-10-16 Outpatient RealAYAAN rodriguez [facility] [id number] Common 08:41:01 [facility] [id number] [facility] 2022-08-11 Outpatient [facility] [id number] [place] 13:29:47 [id number] Health 2022-07-18 Outpatient RealAYAAN rodriguez STLMLC Common 11:13:04 Barrie [facility] 2022-07-13 Outpatient Real, STLMLC STLMLC [id number] Common 14:05:03 Barrie [facility] 2022-07-06 Outpatient Real, STLMLC STLMLC Common 15:56:01 Barrie [facility] 2022-06-01 Outpatient Real, STLMLC STLMLC Common 14:08:02 Barrie [facility] 2022-04-13 Outpatient Real, STLMLC STLMLC Common 15:18:02 Barrie [facility] 2022-03-22 Outpatient Real, STLMLC STLMLC Common 13:05:02 Barrie [facility] 2022-03-13 Outpatient 3 Js ENCPL CVA [id number] [facility] 09:23:[address]avier [address] [facility] 2022-03-07 Outpatient 3 Js ENCPL CVA [id number] [facility] 10:47:[address]avier [address] [facility] 2022-03-06 Outpatient 3 [id number] ENCPL REF [id number] [facility] 11:03:[address] [facility] 2020-12-11 Inpatient HCAPM HCAPM [id number] [facility] 23:40:36 84 [facility] 2022-10-18 2022-10-18 OFFICE STLMLC STLMLC [id number] Co mmon 00:00:00 00:00:00 VISIT [facility] LEVEL 4 [facility] 2022-08-28 2022-08-28 (TEL) STLMLC STLMLC [id number] Co mmon 00:00:00 00:00:00 [facility] 2022-08-15 2022-08-15 (TEL) STLMLC STLMLC [id number] Co mmon 00:00:00 00:00:00 [facility] 2022-05-22 2022-07-20 Outpatient NASRIN WEINSTEIN, ENCCLR ENCCLR [id number] ENCCLR 00:00:00 00:00:00 ADMISSION JAVIER 2022-07-05 2022-07-05 OFFICE STLMLC STLMLC [id number] Co mmon 00:00:00 00:00:00 VISIT [facility] ESTAB PT - CHI LEVEL 4 [facility] 2022-07-05 2022-07-05 SUB ANNUAL STLC STLC [id number] Common 00:00:00 00:00:00 MCR [facility] WELLNESS - CHI VISIT [facility] 2022-07-05 2022-07-05 (TEL) STLMLC STLMLC [id number] Co mmon 00:00:00 00:00:00 Spirit [facility] 2022-06-05 2022-06-05 Office JesusRILEY BBSViola [id number] [place] 14:00:00 14:18:23 Visit Shashi 350.1.13.58 He alth 9.2.7.2.686 [id number] 6 2022-06-02 2022-06-02 Telephone JesusRILEY BBSViola 1.2.840.114 [id number] [place] 00:00:00 00:00:00 Shashi 350.1.13.58 He alth 9.2.7.2.686 [id number] 6 2022-05-31 2022-05-31 OFFICE [facility] STLC [id number] Co mmon 00:00:00 00:00:00 VISIT [facility] PT - CHI LEVEL 4 [facility] 2022-05-26 2022-05-26 Outpatient TOBI [facility] 7[address] [facility] 10:50:00 23:59:00 LEWIS 2022-05-23 2022-05-23 (TEL) STLMLC STLMLC [id number] Co mmon 00:00:00 00:00:00 Spirit - [facility] 2022-05-22 2022-05-22 (TEL) STLMLC STLMLC [id number] Co mmon 00:00:00 00:00:00 Spirit - [facility] 2022-05-03 2022-05-20 Inpatient 3 BROOKE Weinstein BIN [id number] [facility] 16:39:00 11:20:00 Javier 0706 [facility] Robert d 2022-05-15 2022-05-15 (TEL) STLMLC STLMLC [id number] Co mmon 00:00:00 00:00:00 [facility] 2022-05-02 2022-05-03 Outpatient U ROSSI[id number] 17:13:00 15:56:00 JAZZ 2022-05-01 2022-05-01 Telephone Darling Sanches 1.2. [id number] [id number] [place] 00:00:00 00:00:00 Darling Sanches 350.1.13.58 [facility] 9.2.7.2.686 CERRO GORDO [id number] 0 2022-04-18 2022-04-18 Telephone RILEY Mccarty 6410 1.2.840.114 [id number] [place] 00:00:00 00:00:00 Lewis CARNEY 350.1.13.58 [facility] 9.2.7.2.686 [id number] 8 2022-04-11 2022-04-11 Office RILEY Mccarty 1.2.840.114 [id number] [place] 13:00:00 14:39:51 Visit Lewis MARJORIE 350.1.13.58 [facility] 9.2.7.2.686 [facility] [id number] SPECIALTY 5 2022-04-01 2022-04-01 (TEL) STLMLC STLMLC [id number] Co mmon 00:00:00 00:00:00 [facility] 2022-03-31 2022-03-31 (TEL) STLMLC STLMLC [id number] Co mmon 00:00:00 00:00:00 [facility] 2022-03-22 2022-03-22 OFFICE STLMLC STLMLC [id number] Co mmon 00:00:00 00:00:00 VISIT EST Spir it PT LEVEL 3 [facility] 2022-03-062022-03-06 Emergency E ANA MARIA, MHBL BL [id number] [facility]BL 17:28:00 23:44:00 DIOR 2022-02-23 2022-02-27 Outpatient E AMY, [facility] 7503 [facility]BL 14:06:00 20:49:00 YONAS 2021-12-10 2021-12-10 Emergency E AZNAUROVA-A MHBL BL 7502 MHBL 17:30:00 22:35:00 MARISELA DELGADILLO 2021-02-28 2021-02-28 Outpatient SIMRAN, [facility] 750 1 [facility] 13:19:00 23:59:00 NOHEMY 2020-01-14 2020-01-14 Outpatient Ige[facility] [facility]FP VF 795 [id number] [facility] 12:47:00 12:47:00 _J_AH 03372 Family Practic e 2020-01-14 2020-01-14 Outpatient Ige-[place] VFP VF 795 261-202 [facility] 12:47:00 12:47:00 _J_AH 00938 Family Practic e Results Test Description Test Time Test Comments Results Result Comments Source Heavy metals screen, urine 2022-04-21 04:00:00 Test Item Value Reference Range Interpretation Comme nts ARSENIC, URINE (test mcg/g creat Referen ce RangeNonexposed code = 93027-9) adult: ?< or = 35Biological Ex posure Index(end of sh ift or work week): < or = 5 0 See Note 1 LEAD, URINE (test SEE NOTE mcg/g creat Results ar e below code = 69736-6) reportable r mariah for this analyte,which i s 10 mcg/L.Reference RangeNonexposed adult: ?<10 See Note 1 MERCURY, RANDOM SEE NOTE mcg/g creat Results are below URINE (test code = reportabl e range for this 90473-8) analyte,which i s 4 mcg/L.Reference RangeNonexposed adult: ?< or = 4 Biological Exposure Index( preshift): ? < or = 35 See Note 1 CREATININE, RANDOM 188 mg/dL 20-320 Note 1 Th is test was URINE (test code = developed and its 2161-8) analytical perf ormance characteristics have been determined by [employer]. It has not been cleared or approved by theFDA. This as say has been validated pursu ant to the CLIA regulation s and is used for clinic al purposes. REPORT COMMENT: SPLIT 04/14/2022 FROM 7458498 RAC (test code = Performing Organization RAC) Information: ? ?Site ID: SLI ? ?Name: [email or web address] MARES YOLYN ? ?Address: [address] [place] [address] ? ?Director: RONI KRAMER MD [place] [id number] 09:00:00 Test Item Value Reference Range Interpretation Comments COPPER (test See_Comment This test was code = developed and i ts 5631-7) analytical perf ormance characteristics have been determined by [employer]. It has not been cl eared or approved by theFDA. This assay has been validated pursu ant to the CLIA regula tions and is used for clinical purpos es. [Automated mess age] The system [employer] generated this result transmitted ref erence range: 70 - 175 mcg/dL. The ref erence range was not u sed to interpret this result as normal/abnor mal. RAC (test Performing code = RAC) Organization Information: ? ?Site ID: SLI ? ?Name: [email or web address] [facility] ? ?Address: [address] [place] [address] ? ?Director: RONI KRAMER MD [facility] [id number] 09:00:00 Test Item Value Reference Interpretation Comments Range VITAMIN B12 280 pg/mL 200-1100 Please Note: A lthough the (test code = reference range for 2132-06) [id number] is 2 00-1100 pg/mL, it has b [...] Information: ? ?Site ID: RGA ? ?Name: [email or web address] [place] ? ?Address: [address] [place] [place] [phone] ? ?Director: GRACIE SULLIVAN MD [id number] 09:00:00 Test Item Value Reference Range Interpretation Comments TSH (test See_Comment [Automated mes david] code = The system whic h 3016-3) generated this result transmit sissy reference range : 0.40 - 4.50 mIU /L. The reference r mariah was not used to interpret this result as normal/abnormal . RAC (test Performing code = RAC) Organization Information: ? ?Site ID: RGA ? ?Name: [email or web address] [place] ? ?Address: [address] [place] [phone] ? ?Director: GRACIE SULLIVAN MD [place] HealthGLUCOSE BEDSIDE [id number] 06:38:00 Test Item Value Reference Range Interpretation Comments GLUCOSE BEDSIDE TESTING (test code = 93 mg/dL 70-110 N GLUBED) BASIC METABOLIC [id number] 06:24:00 Test Item Value Reference Range Interpretation [...] CA) 8.8 MG/DL 8.5-10.1 N GLUCOSE BEDSIDE [id number] 17:01:00 Test Item Value Reference Range Interpretation Comments GLUCOSE BEDSIDE TESTING (test code 220 mg/dL 70-110 H = GLUBED) GLUCOSE BEDSIDE [id number] 11:37:00 Test Item Value Reference Range Interpretation Comments GLUCOSE BEDSIDE TESTING (test code = 86 mg/dL 70-110 N GLUBED) GLUCOSE BEDSIDE [id number] 08:10:00 Test Item Value Reference Range Interpretation Comments GLUCOSE BEDSIDE TESTING (test code = 86 mg/dL 70-110 N GLUBED) BASIC METABOLIC [id number] 05:12:00 Test Item Value Reference Range Interpretation [...] CA) 8.6 MG/DL 8.5-10.1 N BASIC METABOLIC [id number] 05:07:00 Test Item Value Reference Range Interpretation [...] CA) 8.6 MG/DL 8.5-10.1 N GLUCOSE BEDSIDE [id number] 20:21:00 Test Item Value Reference Range Interpretation Comments GLUCOSE BEDSIDE TESTING (test code 119 mg/dL 70-110 H = GLUBED) - CT HEAD/BRAIN W/O [id number] 18:46:00 [facility] : 1955 Sex: M Name: RADHA MARMOLEJO [facility] : 1955 Age/S: 65 / M [id number] Unit #: [id number] Loc: [place] [address] Phys: Michele Thompson MD Acct: [id number] Dis Date: Status: ADM IN PHONE #: [phone] Exam Date: 12/10/2020 1843 FAX #: Reason: decrease loc since yesterday EXAMS: CPT: [id number] CT HEAD/BRAIN W/O CONT 21009 EXAM: CT BRAIN WITHOUT CONTRAST INDICATION: decrease [...] 1 Signed Report (CONTINUED) Name: RADHA MARMOLEJO [facility] : 1955 Age/S: 65 / M [address] Unit #: [id number] Loc: [place] [address] Phys: Michele Thompson MD Acct: [id number] Dis Date: Status: ADM IN PHONE #: [phone] Exam Date: 12/10/2020 184 FAX #: Reason: decreaseloc since yesterday EXAMS: CPT: [id number] CT HEAD/BRAIN W/O CONT 42593 (Continued) CC: Michele Thompson MD; Pj Brooks MD Technologist:RT Nathaniel(R)(CT); En CTDI: DLP: Trnscb Date/Time: 12/10/2020 (1845) [email or web address] Orig Print D/T: S: 12/10/2020 (1848) PAGE 2 Signed Report- DUP EXTRACRANIAL [id number] 14:30:00 [facility] : 1955 Sex: M Name: [facility] : 1955 Age/S: 65 / M [address] Unit #: [id number] Loc: [place] [address] Phys: Pj Brooks MD Acct: [id number] Dis Date: Status: ADM IN PHONE #: [phone] Exam Date: 12/10/2020 1400 FAX #: Reason: ISCHEMIC STROKE EXAMS: CPT: [id number] DUP EXTRACRANIAL LAINEY [address] Dictation location A1 Carotid Doppler Ultrasound HISTORY: [...] signed by: Gege Wilson M.D. CC: Pj Broosk MD Technologist: Nicole Landin Trnscb Date/Time: 12/10/2020 (1430) JeriPXC PAGE 1 Signed Report Name: RADHA MARMOLEJO [facility] : 1955 Age/S: 65 / M [address] Unit #: [id number] Loc: [place] [address] Phys: Pj Brooks MD Acct: [id number] Dis Date: Status: ADM IN PHONE #: [phone] Exam Date: 12/10/2020 1400 FAX #: Reason: ISCHEMIC STROKE EXAMS: CPT: [id number] DUP EXTRACRANIAL LAINEY 10518 (Continued) Orig Print D/T: S: 12/10/2020 (1433) Probe: PAGE 2 Signed ReportGLYCOSYLATED HEMOGLOBIN PANEL 2020-12-10 11:30:00 Test Item Value Reference Range Interpretation Comments GLYCOSYLATED HEMOGLOBIN (HA1C) 5.8 % A1C 0.0-5.7 H (test code = GLYHGB) ESTIMATED AVERAGE GLUCOSE (test 120 MG/DLest code = EAG) COMPREHENSIVE METABOLIC [id number] 11:29:00 Test Item Value Reference Range Interpretation [...] L [Autom ated message] LDL/HDL) The system [employer] generated this result transmit sissy reference range : 1.48-3.22 Avg. The reference range was not used to interpret this result as normal/abnormal . CBC W/AUTO [id number] 11:01:00 Test Item Value Reference Range Interpretation [...] DIFF/SCN CRITERIA = MDIFF) Coronavirus 2019 nCoV [id number] 18:27:00 Test Item Value Reference Range Interpretation Comments Coronavirus 2019 nCoV Negative Negative Per ma nufacturer, Bedside (test code = negativ e results should [id number]) be treated aspresumptive a nd, if inconsistent [...] tent with COVID-19. - MRI BRAIN W/O [id number] 16:59:00 [facility] : 1955 Sex: M FAX: Pj Rodriguez MD [phone] Camps: DEMETRA St: ADM Name: RADHA MARMOLEJO : 1955 Age/S: 65/M [address] Unit #: [id number] Loc: [place] [address] Phys: Pj Brooks MD Acct: [id number] Dis Date: Status: ADM IN PHONE #: [phone] Exam Date: 12/09/2020 1650 FAX #: Reason: r/o CVA EXAMS: CPT: [id number] MRI BRAIN W/O CONTRAST 95108 EXAM: MRI BRAIN WITHOUT CONTRAST INDICATION: CVA [...] (165) :JeriMD16 Orig Print D/T: S: 12/09/2020 (6703) PAGE 1 Signed ReportUR PROTEIN [id number] 15:35:00 Test Item Value Reference Range Interpretation Comments UR PROTEIN TOTAL (test code = 19.3 MG/DL 0.0-12.0 H PROTU) UR CREATININE [id number] 15:35:00 Test Item Value Reference Range Interpretation Comments UR CREATININE RANDOM (test code = 97.1 MG/DL 30-125 N CREATU) - US RETRO [id number] 15:10:00 [facility] : 1955 Sex: M Name: RADHA MARMOLEJO [facility] : 1955 Age/S: 65 / M [address] Unit #: [id number] Loc: [place] [address] Phys: Gamal Rudd MD Acct: [id number] Dis Date: Status: ADM IN PHONE #: [phone] Exam Date: 12/09/2020 1500 FAX #: Reason: evalm of kidney size and echogenicity for ckd E XAMS: CPT: [id number] RETRO LTD [address] Location of dictation: B2 ULTRASOUND OF THE [...] PAGE 1 Signed Report Name: RADHA MARMOLEJO [facility] : 1955 Age/S: 65 / M [address] Unit #: [id number] Loc: [place] [address] Phys: Gamal Rudd MD Acct: [id number] Dis Date: Status: ADM IN PHONE #: [phone] Exam Date: 12/09/2020 1500 FAX #: Reason: evalm of kidney size and echogenicity for ckd EXAMS: CPT: [id number] RETRO LTD 22444 (Continued) Orig Print D/T: S: 12/09/2020 (1514) Probe: PAGE 2 Signed ReportUA RFLX MICR CULT IF [id number] 08:20:00 Test Item Value Reference Range Interpretation [...] Indication for culture: Dysuria/Frequency- XR SHOULDER 2+V [id number] 08:19:00 [facility] : 1955 Sex: M Name: RADHA MARMOLEJO [facility] : 1955 Age/S: 65 / M [address] Unit #: [id number] Loc: [place] [address] Phys: Mode Duran MD Acct: [id number] Dis Date: Status: REG ER PHONE #: [phone] Exam Date: 12/09/2020814 FAX #: Reason: trauma EXAMS: CPT: [id number] XR SHOULDER 2+[place] [address] Fluoro Time: DAP (Gy m2): Air Kerma [...] MARMOLEJO : 1955 Age/S: 65 / M [address] Unit #: [id number] Loc: [place] [address] Phys: Mode Duran MD Acct: [id number] Dis Date: Status: REG ER PHONE #: [phone] Exam Date: 12/09/2020814 FAX #: Reason: trauma EXAMS: CPT: [id number] XR SHOULDER 2+[place] [address] Fluoro Time: DAP (Gy m2): Air Kerma (mGy): (Continued) Technologist: Dominguez Molina, RT(R)(CT) Trnscb Date/Time: 12/09/2020 (818) t.SDR.PXC Orig Print D/T: S: 12/09/2020(0822) PAGE 2 Signed ReportBASIC METABOLIC [id number] 08:11:00 Test Item Value Reference Range Interpretation [...] 8.6 MG/DL 8.5-10.1 N Completed by Nursing: [id number] 08:11:00 Test Item Value Reference Range Interpretation [...] shade yby method. Completed by Nursing: NOPROTHROMBIN [id number] 07:54:00 Test Item Value Reference Range Interpretation Comments PT PATIENT (test code = PTP) 11.7 SECONDS 9.3-12.9 N INTERNATIONAL NORMAL RATIO 1.04 INR Unit 0.8-1.2 N (test code = INR) THROMBOPLASTIN TIME [id number] 07:54:00 Test Item Value Reference Range Interpretation Comments THROMBOPLASTIN TIME PARTIAL 33.0 SECONDS 26-35 N (test code = PTT) - CT HEAD/BRAIN W/O [id number] 07:48:00 [facility] : 1955 Sex: M Name: RADHA MARMOLEJO [facility] : 1955 Age/S: 65 / M [address] Unit #: [id number] Loc: [place] [address] Phys: Mode Duran MD Acct: [id number] Dis Date: Status: PRE ER PHONE #: [phone] Exam Date: 12/09/2020 0737 FAX #: Reason: Code Stroke EXAMS: CPT: [id number] CT HEAD/BRAIN W/O CONT 45021 EXAM: - CT HEAD/BRAIN W/O CONT INDICATION: [...] 1 Signed Report (CONTINUED) Name: RADHA MARMOLEJO [facility] : 1955 Age/S: 65 / M [address] Unit #: [id number] Loc: [place] [address] Phys: Mode Duran MD Acct: [id number] Dis Date: Status: PRE ER PHONE #: [phone] Exam Date: 12/09/2020 0737 FAX #: Reason: Code Stroke EXAMS: CPT: [id number] CT HEAD/BRAIN W/O [id number] (Continued) CC: Mode Duran MD Technologist:Lewis See, RT(R) CTDI: DLP: Trnscb Date/Time: 12/09/2020 (0748) [email or web address] Orig Print D/T: S: 12/09/2020 (075) PAGE 2 Signed ReportCBC W/O [id number] 07:47:00 Test Item Value Reference Range Interpretation [...]
[2022-10-27 19:38] LABS: Urine Blood 3+ (Negative); Urine Glucose Negative (Negative); Urine Protein 2+ (Negative); Urine pH 5.5 (5.0-7.0)
[2022-10-27] MEDS ORDERED: CEFTRIAXONE 1000 MG/VIAL ONE (19:44)
[2022-10-27] MEDS ORDERED: NA CHLORIDE 0.9% 50 ML IV ONE (19:44)
[2022-10-27 19:48] LABS: Absolute Lymphocytes (CBC) 2.9 K/uL (0.7-4.9); Hematocrit 41.9 % (39.6-49.0); Lymphocytes % 30.9 % (15.3-44.8); MCV 82.7 fL (80-100); RBC Red Blood Cell Count 5.07 M/uL (4.33-5.43)
[2022-10-27 19:51] LABS: Urine Bacteria None Seen /HPF (<20); Urine Crystals Unidentified Moderate /HPF (None Seen); Urine RBC >50 /HPF (None Seen); Urine WBC Clump Many /HPF (None Seen)
[2022-10-27 19:53] LABS: MPV 10.2 fL (7.6-11.3)
[2022-10-27 20:20] LABS: SARS-CoV-2 Antigen Rapid Res Negative (Negative)
[2022-10-27] MEDS ORDERED: CIPROFLOXACIN 400mg IV 400 MG/200 ML BAG IV ONE (20:30)
--- NOTE | 2022-10-27 21:10 | RAD REPORT ---
EXAM DESCRIPTION: RAD - Abdomen 1 View (KUB) - 10/27/2022 8:44 pm CLINICAL HISTORY: Abdomen pain FINDINGS: The bowel gas pattern is unremarkable. Bilateral ureteral stents in place. Catheter is been placed into the bladder.
--- NOTE | 2022-10-27 21:17 | EDPHYS ---
Physician Documentation [facility] Name: Channing Marmolejo Age: 67 yrs Sex: Male : 1955 Arrival Date: 10/27/2022 Time: 18:38 Bed 15 Private MD: ED Physician Matt Jack HPI: 10/27 19:37 This 67 yrs old Black Male presents to ER via EMS with complaints of hematuria. zo 19:37 The patient presents with urinary symptoms, Last void was sepulveda. Onset: The zo symptoms/episode began/occurred 2 day(s) ago. Modifying factors: The symptoms are alleviated by nothing, the symptoms are aggravated by nothing. Associated signs and symptoms: The patient has no apparent associated signs or symptoms. Severity of symptoms: At their worst the symptoms were mild. The patient has not experienced similar symptoms in the past. Historical: - Allergies: 18:42 No Known Allergies; mb9 - PMHx: 18:42 Carotid artery blockage; COPD; CVA; Hypertension; Seizure; TOMMIE, Postobstructive Renal mb9 Failure; - PSHx: 18:42 Bladder Stent; mb9 - Immunization history:: Adult Immunizations up to date. - Social history:: Smoking status: Patient/guardian denies using tobacco, but has a distant history of tobacco abuse. ROS: 19:39 Constitutional: Negative for fever, chills, and weight loss, Eyes: Negative for injury, zo pain, redness, and discharge, ENT: Negative for injury, pain, and discharge, Neck: Negative for injury, pain, and swelling, Cardiovascular: Negative for chest pain, palpitations, and edema, Respiratory: Negative for shortness of breath, cough, wheezing, and pleuritic chest pain, Abdomen/GI: Negative for abdominal pain, nausea, vomiting, diarrhea, and constipation, Back: Negative for injury and pain, : Negative for injury, bleeding, discharge, and swelling, Skin: Negative for injury, rash, and discoloration, Neuro: Negative for headache, weakness, numbness, tingling, and seizure, Psych: Negative for depression, anxiety, suicide ideation, homicidal ideation, and hallucinations, Allergy/Immunology: Negative for hives, rash, and allergies, Endocrine: Negative for neck swelling, polydipsia, polyuria, polyphagia, and marked weight changes, Hematologic/Lymphatic: Negative for swollen nodes, abnormal bleeding, and unusual bruising. Exam: 19:40 Constitutional: This is a well developed, well nourished patient who is awake, alert, zo and in no acute distress. Head/Face: Normocephalic, atraumatic. Eyes: Pupils equal round and reactive to light, extra-ocular motions intact. Lids and lashes normal. Conjunctiva and sclera are non-icteric and not injected. Cornea within normal limits. Periorbital areas with no swelling, redness, or edema. ENT: Nares patent. No nasal discharge, no septal abnormalities noted. Tympanic membranes are normal and external auditory canals are clear. Oropharynx with no redness, swelling, or masses, exudates, or evidence of obstruction, uvula midline. Mucous membranes moist. Neck: Trachea midline, no thyromegaly or masses palpated, and no cervical lymphadenopathy. Supple, full range of motion without nuchal rigidity, or vertebral point tenderness. No Meningismus. Chest/axilla: Normal chest wall appearance and motion. Nontender with no deformity. No lesions are appreciated. Cardiovascular: Regular rate and rhythm with a normal S1 and S2. No gallops, murmurs, or rubs. Normal PMI, no JVD. No pulse deficits. Respiratory: Lungs have equal breath sounds bilaterally, clear to auscultation and percussion. No rales, rhonchi or wheezes noted. No increased work of breathing, no retractions or nasal flaring. Abdomen/GI: Soft, non-tender, with normal bowel sounds. No distension or tympany. No guarding or rebound. No evidence of tenderness throughout. Back: No spinal tenderness. No costovertebral tenderness. Full range of motion. Skin: Warm, dry with normal turgor. Normal color with no rashes, no lesions, and no evidence of cellulitis. MS/ Extremity: Pulses equal, no cyanosis. Neurovascular intact. Full, normal range of motion. Neuro: Awake and alert, GCS 15, oriented to person, place, time, and situation. Cranial nerves II-XII grossly intact. Motor strength 5/5 in all extremities. Sensory grossly intact. Cerebellar exam normal. Normal gait. Psych: Awake, alert, with orientation to person, place and time. Behavior, mood, and affect are within normal limits. 19:40 : CVA tenderness, is absent, Male external genitalia: normal, Bladder: is normal, Sexual behavior: the patient is not sexually active. Vital Signs: 18:38 BP 150 / 81; Pulse 95; Resp 18; Temp 97.7(O); Pulse Ox 100% on R/A; Weight 63.5 kg; mb9 Height 5 ft. 11 in. (180.34 cm); Pain 0/10; 20:01 BP 157 / 76; Pulse 62; Resp 18 S; Pulse Ox 98% on R/A; as6 21:05 BP 136 / 63; Pulse 65; Resp 16; Pulse Ox 98% on R/A; jb4 22:20 BP 144 / 72; Pulse 64; Resp 16; Pulse Ox 98% on R/A; jb4 18:38 Body Mass Index 19.53 (63.50 kg, 180.34 cm) mb9 MDM: 18:52 Patient medically screened. snw 19:41 Differential diagnosis: nonspecific abdominal pain, urinary retention, Sepulveda catheter zo problem, prostatitis, urethritis, Cholelithiasis. Data reviewed: vital signs, nurses notes, lab test result(s), CBC, Flu: hepatic panel, urinalysis, radiologic studies, plain films. Data interpreted: traffic monitor specialist: rate is 95 beats/min, rhythm is regular, Pulse oximetry: on room air. Test interpretation: by ED physician or midlevel provider: plain radiologic studies. 10/27 18:51 Order name: CBC with Diff rn 10/27 18:51 Order name: Basic Metabolic Panel; Complete Time: 20:17 10/27 18:51 Order name: Protime (+inr); Complete Time: 20:17 10/27 18:51 Order name: Ptt, Activated; Complete Time: 20:17 10/27 18:51 Order name: Urine Culture 10/27 18:51 Order name: Urine Microscopic Only; Complete Time: 20:17 10/27 18:51 Order name: IV Start; Complete Time: 19:59 10/27 19:37 Order name: Abdomen 1 View (KUB) XRAY; Complete Time: 21:16 [facility] 10/27 19:37 Order name: Type And Screen; Complete Time: 21:01 [facility] 10/27 19:37 Order name: SARS RAPID; Complete Time: 20:21 [facility] 10/27 19:38 Order name: Urine Dipstick-Ancillary; Complete Time: 20:17 EDID 10/27 21:42 Order name: CBC Smear Scan EDID 10/27 18:51 Order name: Urine Dipstick-Ancillary (obtain specimen); Complete Time: 19:37 rn Administered Medications: 19:59 Drug: Rocephin (cefTRIAXone) 1 grams Route: IV; Rate: per protocol; Site: right upper as6 arm; 20:31 Follow up: Response: No adverse reaction; IV Status: Completed infusion; IV Intake: [id number] 20:30 Drug: Cipro (ciprofloxacin) 400 mg Volume: 200 ml; Route: IVPB; Infused Over: 60 mins; as6 Site: right upper arm; Disposition Summary: 10/27/22 21:16 Discharge Ordered Location: Home zo Problem: new zo Symptoms: have improved zo Condition: Stable zo Diagnosis - Hematuria, unspecified zo - Unspecified kidney failure zo - UTI/ Urinary tract infection, site not specified zo Followup: zo - With: Private Physician - When: 2 - 3 days - Reason: Recheck today's complaints, Continuance of care, Re-evaluation by your physician Followup: zo - With: - When: 2 - 3 days - Reason: Recheck today's complaints, Continuance of care, Re-evaluation by your physician Discharge Instructions: - Discharge Summary Sheet zo - Dysuria zo - Hematuria, Adult zo - Urinary Tract Infection, Adult zo - Urinary Tract Infection, Adult, [id number] zo - Chronic Kidney Disease, Adult, [id number] zo Forms: - Medication Reconciliation Form zo - Thank You Letter zo - Antibiotic Education zo - Prescription Opioid Use [facility] Prescriptions: - Cipro 250 mg Oral Tablet - take 1 tablet by ORAL route every 12 hours; 20 tablet; Refills: 0, Product zo Selection Permitted - Pyridium 200 mg Oral Tablet - take 1 tablet by ORAL route every 8 hours for 3 days; 9 tablet; Refills: 0, [facility] Product Selection Permitted Signatures: Dispatcher [employer] Matt Moyer MD MD cha Waters, Shelly, FINAL APPLICATION REVIEWER-C FINAL APPLICATION REVIEWER-Csnw Evgeny Torres MD MD rn Slawson, Ashby, RN RN as6 Kecia Watkins RN RN mb9
--- NOTE | 2022-10-27 21:17 | ER ---
Nurse's Notes [facility] Name: Channing Marmolejo Age: 67 yrs Sex: Male : 1955 Arrival Date: 10/27/2022 Time: 18:38 Bed 15 Private MD: Diagnosis: Hematuria, unspecified;Unspecified kidney failure;UTI/ Urinary tract infection, site not specified Presentation: 10/27 18:38 Chief complaint: EMS states: pt had a bladder stent placed two days ago. Caregiver mb9 noticed dark red blood bleeding from the catheter that started yesterday. Coronavirus screen: Vaccine status: Patient reports receiving the 2nd dose of the covid vaccine. Ebola Screen: No symptoms or risks identified at this time. Initial Sepsis Screen: Does the patient meet any 2 criteria? No. Patient's initial sepsis screen is negative. Does the patient have a suspected source of infection? No. Patient's initial sepsis screen is negative. Risk Assessment: Do you want to hurt yourself or someone else? Patient reports no desire to harm self or others. Onset of symptoms was October 26, 2022. 18:38 Method Of Arrival: EMS: [facility] mb9 18:38 Acuity: KANWAL 3 mb9 Historical: - Allergies: 18:42 No Known Allergies; mb9 - PMHx: 18:42 Carotid artery blockage; COPD; CVA; Hypertension; Seizure; TOMMIE, Postobstructive Renal mb9 Failure; - PSHx: 18:42 Bladder Stent; mb9 - Immunization history:: Adult Immunizations up to date. - Social history:: Smoking status: Patient/guardian denies using tobacco, but has a distant history of tobacco abuse. Screenin:02 [facility] ED Fall Risk Assessment (Adult) Score/Fall Risk Level 0 - 2 = Low Risk. Abuse as6 screen: Denies threats or abuse. Denies injuries from another. Nutritional screening: No deficits noted. Tuberculosis screening: No symptoms or risk factors identified. Assessment: 20:01 General: Appears in no apparent distress. Behavior is calm, cooperative. Pain: Denies as6 pain. Neuro: Level of Consciousness is awake, alert, obeys commands, Oriented to person, place, time, situation. Respiratory: Respiratory effort is even, unlabored. : Ayala in place to gravity drainage Urine is blood tinged. 21:05 Reassessment: Patient appears in no apparent distress at this time. Patient and/or jb4 family updated on plan of care and expected duration. Pain level reassessed. Patient is alert, oriented x 3, equal unlabored respirations, skin warm/dry/pink. 22:06 General: discharge pending transportation . as6 22:20 Reassessment: Patient appears in no apparent distress at this time. Patient and/or jb4 family updated on plan of care and expected duration. Pain level reassessed. Patient is alert, oriented x 3, equal unlabored respirations, skin warm/dry/pink. Son is at the bedside. Denies questions or concerns about d/c and follow up instructions. Vital Signs: 18:38 BP 150 / 81; Pulse 95; Resp 18; Temp 97.7(O); Pulse Ox 100% on R/A; Weight 63.5 kg; mb9 Height 5 ft. 11 in. (180.34 cm); Pain 0/10; 20:01 BP 157 / 76; Pulse 62; Resp 18 S; Pulse Ox 98% on R/A; as6 21:05 BP 136 / 63; Pulse 65; Resp 16; Pulse Ox 98% on R/A; jb4 22:20 BP 144 / 72; Pulse 64; Resp 16; Pulse Ox 98% on R/A; jb4 18:38 Body Mass Index 19.53 (63.50 kg, 180.34 cm) mb9 ED Course: 18:38 Patient arrived in ED. mb9 18:38 Arm band placed on. mb9 18:40 Triage completed. mb9 19:07 Guerrero Catalan, USHA is Primary Nurse. as6 19:16 Matt Jack MD is Attending Physician. zo 19:37 Urine Microscopic Only Sent. as6 19:37 Urine Culture Sent. as6 19:37 Protime (+inr) Sent. as6 19:37 Ptt, Activated Sent. as6 19:37 Basic Metabolic Panel Sent. as6 19:37 CBC with Diff Sent. as6 19:50 Inserted saline lock: 22 gauge in right upper arm, using aseptic technique. as6 20:02 Bed in low position. Call light in reach. Side rails up X2. Adult w/ patient. as6 20:46 Abdomen 1 View (KUB) XRAY In Process Unspecified. EDMS 21:16 Carlos Eduardo Cruz MD is Referral Physician. [facility] 22:20 No provider procedures requiring assistance completed. IV discontinued, intact, jb4 bleeding controlled, No redness/swelling at site. Pressure dressing applied. Administered Medications: 19:59 Drug: Rocephin (cefTRIAXone) 1 grams Route: IV; Rate: per protocol; Site: right upper as6 arm; 20:31 Follow up: Response: No adverse reaction; IV Status: Completed infusion; IV Intake: [id number] 20:30 Drug: Cipro (ciprofloxacin) 400 mg Volume: 200 ml; Route: IVPB; Infused Over: 60 mins; as6 Site: right upper arm; Medication: 20:02 VIS not applicable for this client. as6 Intake: 20:31 IV: 50ml; Total: 50ml. as6 Outcome: 21:16 Discharge ordered by . [facility] 22:20 Discharged to home via wheelchair, with family. jb4 22:20 Condition: stable 22:20 Discharge instructions given to patient, Instructed on discharge instructions, follow up and referral plans. medication usage, Demonstrated understanding of instructions, follow-up care, medications, Prescriptions given X 2. 22:22 Patient left the ED. jb4 Signatures: Dispatcher [employer] EDMS Matt Jack MD MD cha Bryson, James, RN RN jb4 Guerrero Catalan, RN RN as6 Kecia Watkins, RN RN mb9
[2022-10-27 21:41] LABS: Blood Morphology Comment NOT SEEN (NOT SEEN); Platelet Estimate ADEQ; White Blood Cell Scan OK (OK)
[2022-10-27 22:43] VITALS: TEMP 97.7
[2022-10-27 22:47] VITALS: O2SAT 98
[2022-10-27 22:50] VITALS: BP 144/72
== END 2022-10-27 22:22 | disposition home or self-care (01) ==
LOC: ER 18:34
DX: N39.0 Urinary tract infection, site not specified (principal); N19 Unspecified kidney failure; I10 Essential (primary) hypertension; J44.9 Chronic obstructive pulmonary disease, unspecified; Z20.822 Contact with and (suspected) exposure to COVID-19; Z86.73 Personal history of transient ischemic attack (TIA), and cerebral infarction without residual deficits
CPT/HCPCS: 96365; 87088; 85025; 87086; 80048; 36415; 86900; 86850; 85610; 86901; 85730; 74018; 96375; 99284; 87811; J0744; 81003; 81015

== ENCOUNTER 2022-11-01 11:45 | Observation (INO) | payer OTHER ==
--- OUTSIDE RECORDS SUMMARY | 2022-11-01 11:51 | XMS REPORT | Continuity of Care Document ---
:1955 Author Organization [facility] t Address [address] [place] [address] Care Team Providers Name Role Phone Unknown, Physician Primary Care Physician Unavailable Barrie Real Attending Clinician Unavailable Javier Weinstein Rahil Attending Clinician Unavailable [id number] Attending Clinician Unavailable JAVIER WEINSTEIN Attending Clinician [...] Unavailable Javier Weinstein Rahil Admitting Clinician Unavailable [id number] Admitting Clinician Unavailable REALJESSICAH Admitting Clinician Unavailable JAZZ ALAMO Admitting Clinician Unavailable YONAS KABA Admitting Clinician Unavailable Ige-Odunbrenda_J_AH Admitting Clinician Unavailable Payers Payer Name Policy Type Policy Number Effective Date Expiration Date S mendez HUMANA [id number] 2022 00:00:00 HUMM HUMM [id number] HU[employer]NA MEDICARE 53 [id number] 2022 [facility] nimco 00:00:00 - [facility] HUMANA MEDICARE 53 [id number] 2020 [facility] nimco 00:00:00 [facility] [id number] [place] OF [place] [id number] - [employer] (MEDICARE REPLACEMENT/ADV ANTAGE - HMO) Problems Condition Condition Condition Status Onset Resolution Last Treating Co mments Source Name Details Category Date Date Treatment Clinician Date Hemiplegia Hemiparesi Problem C ommon of s of right Spirit dominant dominant - CHI side as side as St late [facility] effect of effect of Medi jarrett cerebrovas cerebral Cent er cular infarction disease Dementia +6th digit Problem Com mon with eff Spirit behavioral 07/29/22*De - CHI disturbanc mentia, St e unspecifie [facility] d, with Medical behavioral Center disturbanc e Chronic 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 (disorder) [facility] [id number] Parkinson Problem Comm on disease Spirit - [facility] History of History of Problem C ommon transient transient Spir it ischemic ischemic - CHI attack attack [facility] Chronic +5th digit Problem Comm on kidney eff Spirit disease 07/29/20*Ch - CHI stage 3 ronic kidney [facility] disease, Medical stage 3 [place] [id number] Tobacco Problem Commo n abuse Spirit counseling [facility] Chronic Chronic Problem Common obstructiv obstructiv Sp nimco e e - CHI pulmonary [facility] [place] [id number] Hyperlipid Problem Com mon emia, Spirit unspecifie - CHI d hyperlipid [facility] emia type Medical [place] [id number] residential Problem Com mon (current) Spirit use of - CHI antithromb otics/anti [facility] platelets Medical [place] [id number] Cerebrovas Problem Co mmon cular Spirit accident - [facility]I (CVA) of [facility] [id number] NPH Problem Common (normal Spirit pressure - [facility] hydrocepha [facility]) [facility] Chronic Other Problem Common pain chronic Spirit pain - [facility] [id number] Dysuria Problem Common Spirit [facility] Eruption Groin rash Problem Com mon of skin [facility] [id number] Bloody Problem Common drainage Spirit from penis - [facility] [id number] Urinary Problem Common hesitancy [facility] [id number] Hematuria, Problem Com mon unspecifie Spirit d type - [facility] [id number] Urinary Problem Commo n incontinen Spirit ce, - CHI unspecifie [facility] Chronic Hypertensi Problem Comm on kidney ve CKD Spirit disease (chronic - CHI due to kidney St hypertensi disease) [facility] [id number] Agitation Problem Com mon Spirit - CHI [facility] [id number] Ataxic Problem Common gait [facility] [id number] Depression Problem Co mmon with Spirit anxiety [facility] [id number] Vascular Problem Com mon [id number] dementia Spirit without - CHI behavioral [facility] [id number] H/O: CVA Problem Comm on (cerebrova Spirit scular - CHI accident) [facility] [id number] Encounter Problem Com mon for Spirit therapeuti - CHI c drug [facility] monitoring Medica l Center [id number] Essential Problem Comm on hypertensi Spirit on - CHI [facility] [id number] NIKITA Problem Common (generaliz Spirit ed anxiety - CHI disorder) [facility] [id number] 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 [id number] BPH loc w Problem Com mon urin Spirit obs/LUTS - [facility] Allergies, Adverse Reactions, Alerts Allergy Allergy Status Severity Reaction(s) Onset Inactive Treating Comm ents Source Name Type Date Date Clinician NKA Allergy Active ENCCLR 05-22 12:30: 40 NKA Allergy Active ENCCLR 05-22 12:30: 40 NKA Allergy Active ENCCLR 05-22 12:30: 40 No Known DA Active [facility]11 [place] 00:[facility]: d 00 [facility] No Known DA Active U [facility] Allergie 2-11 [place] 00:[facility]: d 00 [facility] Social History Social Habit Start Date Stop Date Quantity Comments Source History of Tobacco Current Smoker Co mmon Spirit - Use [facility] Sex Assigned At Common Sp nimco - [facility] Exposure to 2022-05-26 2022-06-05 Not sure [facility] SARS-CoV-2 (event) 00:00:00 13:46:00 Smoking Status Start Date Stop Date Source Ex-smoker [facility] Current Smoker 2022-10-13 00:00:00 [facility] Spiri t [facility] Medications Ordered Filled Start Stop Current Ordering Indication Dosage Frequency Signature Comments Components Source Medication Medication Date Date Medication? Clinician (SIG) Name Name carbidopa-l 2022- No [id number] 1{tbl} Q.[id number] Take 1 UT evodopa 06-05 [id number] tablet by Health (Sinemet) 00:00: 04:59 3D mouth in 25-100 MG 00 :00 the tablet morning and 1 tablet at noon and 1 tablet in the evening. levETIRAcet Yes [id number] 500mg Q.5D Take 1 UT am (Keppra) 7-09 tablet Health 500 MG 00:00: (500 mg tablet 00 total) by mouth in the morning and 1 tablet (500 mg total) in the evening. memantine Yes [id number] 10mg Q.5D Take 1 UT (Namenda) 7-09 tablet (10 Heal th 10 MG 00:00: mg total) tablet 00 by mouth in the morning and 1 tablet (10 mg total) in the evening. levETIRAcet Yes [id number] 500mg Q.5D Take 1 UT am (Keppra) 7-09 tablet Health 500 MG 00:00: (500 mg tablet 00 total) by mouth in the morning and 1 tablet (500 mg total) in the evening. memantine Yes [id number] 10mg Q.5D Take 1 UT (Namenda) 7-09 tablet (10 Heal th 10 MG 00:00: mg total) tablet 00 by mouth in the morning and 1 tablet (10 mg total) in the evening. levETIRAcet 2021-0 Yes [id number] 500mg Q.5D Take 1 UT am (Keppra) 7-09 tablet Health 500 MG 00:00: (500 mg tablet 00 total) by mouth in the morning and 1 tablet (500 mg total) in the evening. memantine 2021-0 Yes [id number] 10mg Q.5D Take 1 UT (Namenda) 7-09 tablet (10 Heal th 10 MG 00:00: mg total) tablet 00 by mouth in the morning and 1 tablet (10 mg total) in the evening. levETIRAcet 2021-0 Yes UT am (Keppra) 6-10 Health 500 MG 00:00: tablet 00 levETIRAcet 2021-0 Yes UT am (Keppra) 6-10 Health 500 MG 00:00: tablet 00 levETIRAcet 2021-0 2021- No UT am (Keppra) 6-10 07-09 Health [...] MG 00:00: 00:00 tablet 00 :00 carvedilol 2021-1 Yes UT (Coreg) 1-22 Health 12.5 MG 00:00: tablet 00 carvedilol 2020- Yes UT (Coreg) 1-22 Health 12.5 MG 00:00: tablet 00 carvedilol 2020-10 Yes UT (Coreg) 1-22 Health 12.5 MG 00:00: tablet 00 carvedilol 2020-10 Yes UT (Coreg) 1-22 Health 12.5 MG 00:00: tablet 00 carvedilol 2020-10 Yes UT (Coreg) 1-22 Health 12.5 MG 00:00: tablet 00 sulfamethox 1 Yes UT azole-trime 10-29 Health thoprim 00:00: (Bactrim 00 DS) 800-160 MG tablet sulfamethox 2020-10 Yes UT azole-trime 10-29 Health thoprim 00:00: (Bactrim 00 DS) 800-160 MG tablet sulfamethox 2020-1 Yes UT azole-trime 10-29 Health thoprim 00:00: (Bactrim 00 DS) 800-160 MG tablet sulfamethox 2020-1 Yes UT azole-trime 10-29 Health thoprim 00:00: (Bactrim 00 DS) 800-160 MG tablet sulfamethox 2020-1 Yes UT azole-trime 10-29 Health thoprim 00:00: [...] 9-08 Health MG tablet 00:00: 00 lisinopril 2021-0 Yes UT 5 MG tablet 8-30 Health 00:00: 00 lisinopril 1-0 Yes UT 5 MG tablet 8-30 Health 00:00: 00 lisinopril 1-0 Yes UT 5 MG tablet 8-30 Health 00:00: 00 lisinopril 2020-0 Yes UT 5 MG tablet 06-27 Health 00:00: 00 lisinopril 2020-0 Yes UT 5 MG tablet 06-27 Health 00:00: 00 aspirin 2020-0 Yes 81mg 81 mg. UT (ASPIR) 81 3-29 Health MG EC 00:00: tablet 00 budesonide 2020-0 Yes UT (Pulmicort) 3-29 Health 0.5 MG/2ML 00:00: nebulizer 00 solution aspirin 2020-0 Yes 81mg 81 mg. UT (ASPIR) 81 3-29 Health MG EC 00:00: tablet 00 budesonide 2020-0 Yes UT (Pulmicort) 3-29 Health 0.5 MG/2ML 00:00: nebulizer 00 solution aspirin 2020-0 Yes 81mg 81 mg. UT (ASPIR) 81 3-29 Health MG EC 00:00: tablet 00 budesonide 2020-0 Yes UT (Pulmicort) 3-29 Health 0.5 MG/2ML 00:00: nebulizer 00 solution aspirin 2020-0 Yes 81mg 81 mg. UT (ASPIR) 81 3-29 Health MG EC 00:00: tablet 00 budesonide 2020-0 Yes UT (Pulmicort) 3-29 Health 0.5 MG/2ML 00:00: nebulizer 00 solution aspirin 2020-0 Yes 81mg 81 mg. UT (ASPIR) 81 3-29 Health MG EC 00:00: tablet 00 budesonide 2020-0 Yes UT (Pulmicort) 3-29 Health 0.5 MG/2ML [...] Date Status Commen ts Source Name Name [place] [address] 2021-09-28 Completed Co mmon [facility] Vaccine (Low Dose Vaccine (Low Dose 14:33:00 [facility] [address] 2021-09-28 Completed [facility] Vaccine (Low Dose Vaccine (Low Dose 14:33:00 [facility] Booster) [address] [facility] 2021-09-28 Completed Co mmon [facility] Vaccine (Low Dose Vaccine (Low Dose 14:33:00 [facility] Bo[facility] Booster) [address] [facility] 2021-09-28 Completed Co mmon [facility] Vaccine (Low Dose Vaccine (Low Dose 14:33:00 [facility] [facility] 2021-09-28 Completed Co mmon [facility] Vaccine (Low Dose Vaccine (Low Dose 14:33:00 [facility] [facility] 2021-09-28 Completed Co mmon [facility] Vaccine (Low Dose Vaccine (Low Dose 14:33:00 - [facility]oster[facility] [facility] 2021-09-28 Completed Co mmon [facility] Vaccine (Low Dose Vaccine (Low Dose 14:33:00 [facility] Booster) [address] 2021-09-28 Completed Co mmon [facility] Vaccine (Low Dose Vaccine (Low Dose 14:33:00 - [facility] Booster) Booster) [facility] [facility] COVID19 2021-09-28 Completed Co mmon [facility] Vaccine (Low Dose Vaccine (Low Dose 14:33:00 - [facility] Booster) Booster) [facility] [address] COVID19 2021-09-28 Completed Co mmon [facility] Vaccine (Low Dose Vaccine (Low Dose 14:33:00 - [facility] Booster) Booster) [facility] [address] COVID19 2021-09-28 Completed Co mmon [facility] Vaccine (Low Dose Vaccine (Low Dose 14:33:00 - [facility] Booster) Booster) [facility] [facility] COVID19 2021-09-28 Completed Co mmon [facility] Vaccine (Low Dose Vaccine (Low Dose 14:33:00 - [facility] Booster) Booster) [facility] COVID[address] [facility] 2021-09-28 Completed Co mmon [facility] Vaccine (Low Dose Vaccine (Low Dose 14:33:00 - [facility] Booster) Booster) [facility] [address] COVIDPerry 2021-09-28 Completed Co mmon [facility] Vaccine (Low Dose Vaccine (Low Dose 14:33:00 - [facility] Booster) Booster) [facility] FLUZONE HIGH DOSE FLUZONE HIGH DOSE 2021-08-28 Completed [facility] OVER 65 OVER 65 15:01:00 [facility] FLUZONE HIGH DOSE FLUZONE HIGH DOSE 2021-08-28 Completed [facility] OVER 65 OVER 65 15:01:00 [facility] FLUZONE HIGH DOSE FLUZONE HIGH DOSE 2021-08-28 Completed [facility] OVER 65 OVER 65 15:01:00 [facility] FLUZONE HIGH DOSE FLUZONE HIGH DOSE 2021-08-28 Completed [facility] OVER 65 OVER 65 15:01:00 [facility] FLUZONE HIGH DOSE FLUZONE HIGH DOSE 2021-08-28 Completed [facility] OVER 65 OVER 65 15:01:00 [facility] FLUZONE HIGH DOSE FLUZONE HIGH DOSE 2021-08-28 Completed [facility] OVER 65 OVER 65 15:01:00 - [facility] FLUZONE HIGH DOSE FLUZONE HIGH DOSE 2021-08-28 Completed [facility] OVER 65 OVER 65 15:01:00 - [facility] FLUZONE HIGH DOSE FLUZONE HIGH DOSE 2021-08-28 Completed [facility] OVER 65 OVER 65 15:01:00 - [facility] FLUZONE HIGH DOSE FLUZONE HIGH DOSE 2021-08-28 Completed [facility] OVER 65 OVER 65 15:01:00 - [facility] FLUZONE HIGH DOSE FLUZONE HIGH DOSE 2021-08-28 Completed [facility] OVER 65 OVER 65 15:01:00 - [facility] FLUZONE HIGH DOSE FLUZONE HIGH DOSE 2021-08-28 Completed [facility] OVER 65 OVER 65 15:01:00 - [facility] FLUZONE HIGH DOSE FLUZONE HIGH DOSE 2021-08-28 Completed [facility] OVER 65 OVER 65 15:01:00 - [facility] FLUZONE HIGH DOSE FLUZONE HIGH DOSE 2021-08-28 Completed [facility] OVER 65 OVER 65 15:01:00 - [facility] FLUZONE HIGH DOSE FLUZONE HIGH DOSE 2021-08-28 Completed [facility] OVER 65 OVER 65 15:01:00 - [facility] Moderna COVID-19 Moderna COVID-19 2021-01-04 Completed Co m[facility] Vaccine Vaccine 14:35:00 [facility] Moderna COVID-19 Moderna COVID-19 2021-01-04 Completed Co mmon [facility] Vaccine Vaccine 14:35:00 [facility] Moderna COVID-19 Moderna COVID-19 2021-01-04 Completed Co m[facility] Vaccine Vaccine 14:35:00 [facility] Moderna COVID-19 Moderna COVID-19 2021-01-04 Completed Co mmon [facility] Vaccine Vaccine 14:35:00 [facility] Moderna COVID-19 Moderna COVID-19 2021-01-04 Completed Co mmon [facility] Vaccine Vaccine 14:35:00 - [facility] Moderna COVID-19 Moderna COVID-19 2021-01-04 Completed Co mmon [facility] Vaccine Vaccine 14:35:00 - [facility] Moderna COVID-19 Moderna COVID-19 2021-01-04 Completed Co mmon [facility] Vaccine Vaccine 14:35:00 - [facility] Moderna COVID-19 Moderna COVID-19 2021-01-04 Completed Co mmon [facility] Vaccine Vaccine 14:35:00 - [facility] Moderna COVID-19 Moderna COVID-19 2021-01-04 Completed Co mmon [facility] Vaccine Vaccine 14:35:00 - [facility] Moderna COVID-19 Moderna COVID-19 2021-01-04 Completed Co mmon [facility] Vaccine Vaccine 14:35:00 - [facility] Moderna COVID-19 Moderna COVID-19 2021-01-04 Completed Co mmon [facility] Vaccine Vaccine 14:35:00 - [facility] Moderna COVID-19 Moderna COVID-19 2021-01-04 Completed Co mmon [facility] Vaccine Vaccine 14:35:00 - [facility] Moderna COVID-19 Moderna COVID-19 2021-01-04 Completed Co mmon [facility] Vaccine Vaccine 14:35:00 - [facility] Moderna COVID-19 Moderna COVID-19 2021-01-04 Completed Co m[facility] Vaccine Vaccine 14:35:00 - [facility] Moderna COVID-19 Moderna COVID-19 2020-12-03 Completed Co m[facility] Vaccine Vaccine 14:34:00 [facility] Moderna COVID-19 Moderna COVID-19 2020-12-03 Completed Co mmon [facility] Vaccine Vaccine 14:34:00 - [facility] Moderna COVID-19 Moderna COVID-19 2020-12-03 Completed Co mmon [facility] Vaccine Vaccine 14:34:00 - [facility] Moderna COVID-19 Moderna COVID-19 2020-12-03 Completed Co mmon [facility] Vaccine Vaccine 14:34:00 - [facility] Moderna COVID-19 Moderna COVID-19 2020-12-03 Completed Co m[facility] Vaccine Vaccine 14:34:00 - [facility] Moderna COVID-19 Moderna COVID-19 2020-12-03 Completed Co mmon [facility] Vaccine Vaccine 14:34:00 - [facility] Moderna COVID-19 Moderna COVID-19 2020-12-03 Completed Co mmon [facility] Vaccine Vaccine 14:34:00 - [facility] Moderna COVID-19 Moderna COVID-19 2020-12-03 Completed Co mmon [facility] Vaccine Vaccine 14:34:00 - [facility] Moderna COVID-19 Moderna COVID-19 2020-12-03 Completed Co m[facility] Vaccine Vaccine 14:34:00 - [facility] Moderna COVID-19 Moderna COVID-19 2020-12-03 Completed Co m[facility] Vaccine Vaccine 14:34:00 - [facility] Moderna COVID-19 Moderna COVID-19 2020-12-03 Completed Co m[facility] Vaccine Vaccine 14:34:00 - [facility] Moderna COVID-19 Moderna COVID-19 2020-12-03 Completed Co m[facility] Vaccine Vaccine 14:34:00 - [facility] Moderna COVID-19 Moderna COVID-19 2020-12-03 Completed Co m[facility] Vaccine Vaccine 14:34:00 - [facility] Moderna COVID-19 Moderna COVID-19 2020-12-03 Completed Co m[facility] Vaccine Vaccine 14:34:00 - [facility] FLUZONE HIGH DOSE FLUZONE HIGH DOSE 2020-07-15 Completed [facility] OVER 65 OVER 65 10:07:00 - [facility] FLUZONE HIGH DOSE FLUZONE HIGH DOSE 2020-07-15 Completed [facility] OVER 65 OVER 65 10:07:00 - [facility] FLUZONE HIGH DOSE FLUZONE HIGH DOSE 2020-07-15 Completed [facility] OVER 65 OVER 65 10:07:00 [facility] FLUZONE HIGH DOSE FLUZONE HIGH DOSE 2020-07-15 Completed [facility] OVER 65 OVER 65 10:07:00 - [facility] FLUZONE HIGH DOSE FLUZONE HIGH DOSE 2020-07-15 Completed [facility] OVER 65 OVER 65 10:07:00 - [facility] FLUZONE HIGH DOSE FLUZONE HIGH DOSE 2020-07-15 Completed [facility] OVER 65 OVER 65 10:07:00 - [facility] FLUZONE HIGH DOSE FLUZONE HIGH DOSE 2020-07-15 Completed [facility] OVER 65 OVER 65 10:07:00 - [facility] FLUZONE HIGH DOSE FLUZONE HIGH DOSE 2020-07-15 Completed [facility] OVER 65 OVER 65 10:07:00 - [facility] FLUZONE HIGH DOSE FLUZONE HIGH DOSE 2020-07-15 Completed [facility] OVER 65 OVER 65 10:07:00 - [facility] FLUZONE HIGH DOSE FLUZONE HIGH DOSE 2020-07-15 Completed [facility] OVER 65 OVER 65 10:07:00 - [facility] FLUZONE HIGH DOSE FLUZONE HIGH DOSE 2020-07-15 Completed [facility] OVER 65 OVER 65 10:07:00 - [facility] FLUZONE HIGH DOSE FLUZONE HIGH DOSE 2020-07-15 Completed [facility] OVER 65 OVER 65 10:07:00 - [facility] FLUZONE HIGH DOSE FLUZONE HIGH DOSE 2020-07-15 Completed [facility] OVER 65 OVER 65 10:07:00 - [facility] FLUZONE HIGH DOSE FLUZONE HIGH DOSE 2020-07-15 Completed [facility] OVER 65 OVER 65 10:07:00 - [facility] FLUZONE HIGH DOSE FLUZONE HIGH DOSE 2019-08-13 Completed [facility] OVER 65 OVER 65 14:41:00 - [facility] FLUZONE HIGH DOSE FLUZONE HIGH DOSE 2019-08-13 Completed [facility] OVER 65 OVER 65 14:41:00 - [facility] FLUZONE HIGH DOSE FLUZONE HIGH DOSE 2019-08-13 Completed [facility] OVER 65 OVER 65 14:41:00 - [facility] FLUZONE HIGH DOSE FLUZONE HIGH DOSE 2019-08-13 Completed [facility] OVER 65 OVER 65 14:41:00 - [facility] FLUZONE HIGH DOSE FLUZONE HIGH DOSE 2019-08-13 Completed [facility] OVER 65 OVER 65 14:41:00 - [facility] FLUZONE HIGH DOSE FLUZONE HIGH DOSE 2019-08-13 Completed [facility] OVER 65 OVER 65 14:41:00 - [facility] FLUZONE HIGH DOSE FLUZONE HIGH DOSE 2019-08-13 Completed [facility] OVER 65 OVER 65 14:41:00 - [facility] FLUZONE HIGH DOSE FLUZONE HIGH DOSE 2019-08-13 Completed [facility] OVER 65 OVER 65 14:41:00 - [facility] FLUZONE HIGH DOSE FLUZONE HIGH DOSE 2019-08-13 Completed [facility] OVER 65 OVER 65 14:41:00 - [facility] FLUZONE HIGH DOSE FLUZONE HIGH DOSE 2019-08-13 Completed [facility] OVER 65 OVER 65 14:41:00 - [facility] FLUZONE HIGH DOSE FLUZONE HIGH DOSE 2019-08-13 Completed [facility] OVER 65 OVER 65 14:41:00 - [facility] FLUZONE HIGH DOSE FLUZONE HIGH DOSE 2019-08-13 Completed [facility] OVER 65 OVER 65 14:41:00 - [facility] FLUZONE HIGH DOSE FLUZONE HIGH DOSE 2019-08-13 Completed [facility] OVER 65 OVER 65 14:41:00 - [facility] FLUZONE HIGH DOSE FLUZONE HIGH DOSE 2019-08-13 Completed [facility] OVER 65 OVER 65 14:41:00 - [facility] FLUZONE HIGH DOSE FLUZONE HIGH DOSE 2018-08-15 Completed [facility] OVER 65 OVER 65 11:52:00 - [facility] FLUZONE HIGH DOSE FLUZONE HIGH DOSE 2018-08-15 Completed [facility] OVER 65 OVER 65 11:52:00 - [facility] FLUZONE HIGH DOSE FLUZONE HIGH DOSE 2018-08-15 Completed [facility] OVER 65 OVER 65 11:52:00 - [facility] FLUZONE HIGH DOSE FLUZONE HIGH DOSE 2018-08-15 Completed [facility] OVER 65 OVER 65 11:52:00 - [facility] FLUZONE HIGH DOSE FLUZONE HIGH DOSE 2018-08-15 Completed [facility] OVER 65 OVER 65 11:52:00 [facility] FLUZONE HIGH DOSE FLUZONE HIGH DOSE 2018-08-15 Completed [facility] OVER 65 OVER 65 11:52:00 - [facility] FLUZONE HIGH DOSE FLUZONE HIGH DOSE 2018-08-15 Completed [facility] OVER 65 OVER 65 11:52:00 - [facility] FLUZONE HIGH DOSE FLUZONE HIGH DOSE 2018-08-15 Completed [facility] OVER 65 OVER 65 11:52:00 - [facility] FLUZONE HIGH DOSE FLUZONE HIGH DOSE 2018-08-15 Completed [facility] OVER 65 OVER 65 11:52:00 - [facility] FLUZONE HIGH DOSE FLUZONE HIGH DOSE 2018-08-15 Completed [facility] OVER 65 OVER 65 11:52:00 - [facility] FLUZONE HIGH DOSE FLUZONE HIGH DOSE 2018-08-15 Completed [facility] OVER 65 OVER 65 11:52:00 - [facility] FLUZONE HIGH DOSE FLUZONE HIGH DOSE 2018-08-15 Completed [facility] OVER 65 OVER 65 11:52:00 - [facility] FLUZONE HIGH DOSE FLUZONE HIGH DOSE 2018-08-15 Completed [facility] OVER 65 OVER 65 11:52:00 - [facility] FLUZONE HIGH DOSE FLUZONE HIGH DOSE 2018-08-15 Completed [facility] OVER 65 OVER 65 11:52:00 - [facility] Vital Signs Vital Name Observation Time Observation Value Comments Source height 2022-10-18 08:00:00 71 [in_i] [facility] weight 2022-10-18 08:00:00 152 [lb_av] [facility] temperature 2022-10-18 08:00:00 97.4 [degF] [facility] bmi 2022-10-18 08:00:00 21.2 kg/m2 [facility] blood pressure 2022-10-18 08:00:00 125 mm[Hg] Common [facility] - systolic [facility] blood pressure 2022-10-18 08:00:00 70 mm[Hg] [facility] - diastolic [facility] height 2022-07-05 16:00:00 71 [in_i] [facility] weight 2022-07-05 16:00:00 150 [lb_av] [facility] - [facility] temperature 2022-07-05 16:00:00 98 [degF] [facility] - [facility] bmi 2022-07-05 16:00:00 20.92 kg/m2 [facility] pirit [facility] blood pressure 2022-07-05 16:00:00 119 mm[Hg] [facility] - systolic [facility] blood pressure 2022-07-05 16:00:00 75 mm[Hg] [facility] - diastolic [facility] height 2022-07-05 15:30:00 71 [in_i] [facility] weight 2022-07-05 15:30:00 150 [facility] temperature 2022-07-05 15:30:00 98 [degF] [facility] S pirit [facility] bmi 2022-07-05 15:30:00 20.92 kg/m2 [facility] [facility] blood pressure 2022-07-05 15:30:00 119 mm[Hg] [facility] blood pressure 2022-07-05 15:30:00 75 mm[Hg] [facility] diastolic [facility] height 2022-05-31 16:20:00 71 [in_i] [facility] weight 2022-05-31 16:20:00 150.0 [lb_av] Common [facility] - [facility] temperature 2022-05-31 16:20:00 98.2 [degF] Common [facility] bmi 2022-05-31 16:20:00 20.92 kg/m2 [facility] oximetry 2022-05-31 16:20:00 97 % [facility] respiratory rate 2022-05-31 16:20:00 18 /min Comm on [facility] blood pressure 2022-05-31 16:20:00 122 mm[Hg] [facility] systolic [facility] blood pressure 2022-05-31 16:20:00 58 mm[Hg] Common [facility] - diastolic [facility] Systolic blood 2022-04-11 18:12:00 153 mm[Hg] [facility] Diastolic blood 2022-04-11 18:12:00 69 mm[Hg] [facility] Heart rate 2022-04-11 18:12:00 71 /min [facility] height 2022-03-22 13:00:00 71 [in_i] [facility] weight 2022-03-22 13:00:00 150 [lb_av] [facility] temperature 2022-03-22 13:00:00 98.2 [degF] [facility] bmi 2022-03-22 13:00:00 20.92 kg/m2 [facility] oximetry 2022-03-22 13:00:00 99 % [facility] respiratory rate 2022-03-22 13:00:00 17 /min Comm on [facility] blood pressure 2022-03-22 13:00:00 90 mm[Hg] Common [facility] - systolic [facility] blood pressure 2022-03-22 13:00:00 54 mm[Hg] Common [facility] - diastolic [facility] Procedures Procedure Date / Time Performed Performing Clinician [facility] e HEAVY METALS SCREEN, URINE 2022-04-18 20:15:00 Lewis Mccarty [facility] VITAMIN B12 2022-04-14 00:00:00 Lewis Mccarty [facility] TSH 2022-04-14 00:00:00 Lewis Mccarty [facility] COPPER 2022-04-14 00:00:00 Lewis Mccarty [facility] Encounters Start End Encounter Admission Attending Care Care Encounter Source Date/Time Date/Time Type Type Clinicians Facility Department ID 2022-10-16 Outpatient RealAYAAN rodriguez [facility] [id number] Common 08:41:01 [facility] [id number] [facility] 2022-08-11 Outpatient [facility] [id number] [place] 13:29:47 [id number] Health 2022-07-18 Outpatient Real, STLMLC STLMLC Common 11:13:04 Barrie [facility] 2022-07-13 Outpatient Real, STLMLC STLMLC [id number] Common 14:05:03 Barrie [facility] 2022-07-06 Outpatient Real, STLMLC STLMLC Common 15:56:01 Barrie [facility] 2022-06-01 Outpatient Real, STLMLC STLMLC Common 14:08:02 Barrie [facility] 2022-04-13 Outpatient Real, STLMLC STLMLC Common 15:18:02 Barrie [facility] 2022-03-22 Outpatient Real, STLMLC STLC Common 13:05:02 Barrie [facility] 2022-03-13 Outpatient 3 JsNICOLEPL CVA [id number] [facility] 09:23:09 Javier 0516 [facility] 2022-03-07 Outpatient 3 JsNICOLEPL CVA [id number] [facility] 10:47:49 Javier 0510 [facility] 2022-03-06 Outpatient 3 [id number] ENCPL REF [id number] [facility] 11:03:26 0509 [facility] 2020-12-11 Inpatient HCAPM HCAPM [id number] [facility] 23:40:36 84 [facility] 2022-10-18 2022-10-18 OFFICE STLMLC STLMLC [id number] Co mmon 00:00:00 00:00:00 VISIT [facility] LEVEL 4 [facility] 2022-08-28 2022-08-28 (TEL) STLMLC STLMLC [id number] Co mmon 00:00:00 00:00:00 [facility] 2022-08-15 2022-08-15 (TEL) STLMLC STLMLC [id number] Co mmon 00:00:00 00:00:00 [facility] 2022-05-22 2022-07-20 Outpatient NASRIN WEINSTEIN, ENCCLR ENCCLR [id number] ENCCLR 00:00:00 00:00:00 ADMISSION JAVIER 2022-07-05 2022-07-05 OFFICE STLMLC STLMLC [id number] Co mmon 00:00:00 00:00:00 VISIT [facility] ESTAB PT - [facility] LEVEL 4 [facility] 2022-07-05 2022-07-05 SUB ANNUAL STLMLC STLMLC [id number] Common 00:00:00 00:00:00 MCR [facility] WELLNESS - [facility] VISIT [facility] 2022-07-05 2022-07-05 (TEL) STLMLC STLC [id number] Co mmon 00:00:00 00:00:00 [facility] 2022-06-05 2022-06-05 Office RILEY Lee [id number] [place] 14:00:00 14:18:23 Visit Shashi 350.1.13.58 He alth 9.2.7.2.686 [id number] 6 2022-06-02 2022-06-02 Telephone RILEY Lee 1.2.840.114 [id number] [place] 00:00:00 00:00:00 Shashi 350.1.13.58 He alth 9.2.7.2.686 [id number] 6 2022-05-31 2022-05-31 OFFICE STLC STLC [id number] Co mmon 00:00:00 00:00:00 VISIT [facility] ESTAB PT - CHI LEVEL 4 [facility] 2022-05-26 2022-05-26 Outpatient TOBI [facility] [address] [facility] 10:50:00 23:59:00 LEWIS 2022-05-23 2022-05-23 (TEL) STLMLC STLMLC [id number] Co mmon 00:00:00 00:00:00 [facility] 2022-05-22 2022-05-22 (TEL) STLMLC STLMLC [id number] Co mmon 00:00:00 00:00:00 [facility] 2022-05-03 2022-05-20 Inpatient 3 BROOKE Weinstein BIN [id number] [facility] 16:39:00 11:20:00 Javier 0706 Health Rehabil itation Robert d 2022-05-15 2022-05-15 (TEL) STLMLC STLMLC [id number] Co mmon 00:00:00 00:00:00 [facility] 2022-05-02 2022-05-03 Outpatient Marlin RICHEYSHARON [facility] MED 2[address] [facility] 17:13:00 15:56:00 JAZZ 2022-05-01 2022-05-01 Telephone Darling Sanches [place] 1.2. [id number] [place] 00:00:00 00:00:00 Darling Sanches 350.1.13.58 [facility] MEDICAL 9.2.7.2.686 NOKOMIS [id number] 2022-04-18 2022-04-18 Telephone RILEY Mccarty 6410 1.2.840.114 [id number] [place] 00:00:00 00:00:00 Lewis CARNEY 350.1.13.58 Health 9.2.7.2.686 [id number] 8 2022-04-11 2022-04-11 Office RILEY Mccarty 1.2.840.114 [id number] [place] 13:00:00 14:39:51 Visit Lewis AMADOR 350.1.13.58 [facility] 9.2.7.2.686 [facility] [id number] SPECIALTY 5 2022-04-01 2022-04-01 (TEL) STLMLC STLMLC [id number] Co mmon 00:00:00 00:00:00 [facility] 2022-03-31 2022-03-31 (TEL) STLMLC STLMLC [id number] Co mmon 00:00:00 00:00:00 [facility] 2022-03-22 2022-03-22 OFFICE STLMLC STLMLC [id number] Co mmon 00:00:00 00:00:00 VISIT EST Spir it PT LEVEL 3 - [facility] 2022-03-06 2022-03-06 Emergency E ANA MARIA, BL BL 7504 MHBL 17:28:00 23:44:00 DIOR 2022-02-23 2022-02-27 Outpatient E AMY, [facility] MED 7503 MHBL 14:06:00 20:49:00 YONAS 2021-12-10 2021-12-10 Emergency E AZNAUROVA-A BL BL 7502 BL 17:30:00 22:35:00 MARISELA DELGADILLO 2021-02-28 2021-02-28 Outpatient SIMRAN, [facility] 750 1 [facility] 13:19:00 23:59:00 NOHEMY 2020-01-14 2020-01-14 Outpatient [facility]ge[facility] P VF 795 [id number] [facility] 12:47:00 12:47:00 _J_AH 46421 Family Practic e 2020-01-14 2020-01-14 Outpatient Ige[facility]Od[facility] VF 795 [id number] [facility] 12:47:00 12:47:00 _J_AH 23780 Family Practic e Results Test Description Test Time Test Comments Results Result Comments Source Heavy metals screen, urine 2022-04-21 04:00:00 Test Item Value Reference Range Interpretation Comme nts ARSENIC, URINE (test mcg/g creat Referen ce RangeNonexposed code = 83345-0) adult: ?< or = 35Biological Ex posure Index(end of sh or work week): < or = 5 0 See Note 1 LEAD, URINE (test SEE NOTE mcg/g creat Results ar e below code = 62555-9) reportable r mariah for this analyte,which i s 10 mcg/L.Reference RangeNonexposed adult: ?<10 See Note 1 MERCURY, RANDOM SEE NOTE mcg/g creat Results are below URINE (test code = reportabl e range for this 86571-2) analyte,which i s 4 mcg/L.Reference RangeNonexposed adult: ?< or = 4 Biological Exposure Index( preshift): ? < or = 35 See Note 1 CREATININE, RANDOM 188 mg/dL 20-320 Note 1 Th is test was URINE (test code = developed and its 2161-8) analytical perf ormance characteristics have been determined by [facility]. It has not been cleared or approved by theFDA. This as say has been validated pursu ant to the CLIA regulation s and is used for clinic al purposes. REPORT COMMENT: SPLIT 04/14/2022 FROM 7652896 RAC (test code = Performing Organization RAC) Information: ? ?Site ID: SLI ? ?Name: [facility] ? ?Address: [address] [place] [address] ? ?Director: RONI KRAMER MD [place] [id number] 09:00:00 Test Item Value Reference Range Interpretation Comments COPPER (test See_Comment This test was code = developed and i ts 5631-7) analytical perf ormance characteristics have been determined by [employer]. It has not been cl eared or approved by theFDA. This assay has been validated pursu ant to the CLIA regula tions and is used for clinical purpos es. [Automated mess age] The system Gim[employer] generated this result transmitted ref erence range: 70 - 175 mcg/dL. The ref erence range was not u sed to interpret this result as normal/abnor mal. RAC (test Performing code = RAC) Organization Information: ? ?Site ID: SLI ? ?Name: [facility] ? ?Address: [address] [place] [address] ? ?Director: RONI KRAMER MD [place] [facility] [id number] 09:00:00 Test Item Value Reference Interpretation Comments Range VITAMIN B12 280 pg/mL 200-1100 Please Note: A lthough the (test code = reference range for 2132-06) [id number] is 2 00-1100 pg/mL, it has b [...] Information: ? ?Site ID: RGA ? ?Name: [facility] ? ?Address: [address] [place] [phone] ? ?Director: GRACIE SULLIVAN MD [id number] 09:00:00 Test Item Value Reference Range Interpretation Comments TSH (test See_Comment [Automated mes david] code = The system whic h 3016-3) generated this result transmit sissy reference range : 0.40 - 4.50 mIU /L. The reference r mariah was not used to interpret this result as normal/abnormal . RAC (test Performing code = RAC) Organization Information: ? ?Site ID: RGA ? ?Name: [facility] ? ?Address: [address] [place] [phone] ? ?Director: GRACIE SULLIVAN MD [place] HealthGLUCOSE BEDSIDE [id number] 06:38:00 Test Item Value Reference Range Interpretation Comments GLUCOSE BEDSIDE TESTING (test code = 93 mg/dL 70-110 N GLUBED) BASIC METABOLIC [id number] 06:24:00 Test Item Value Reference Range Interpretation [...] CA) 8.8 MG/DL 8.5-10.1 N GLUCOSE BEDSIDE [id number] 17:01:00 Test Item Value Reference Range Interpretation Comments GLUCOSE BEDSIDE TESTING (test code 220 mg/dL 70-110 H = GLUBED) GLUCOSE BEDSIDE [id number] 11:37:00 Test Item Value Reference Range Interpretation Comments GLUCOSE BEDSIDE TESTING (test code = 86 mg/dL 70-110 N GLUBED) GLUCOSE BEDSIDE [id number] 08:10:00 Test Item Value Reference Range Interpretation Comments GLUCOSE BEDSIDE TESTING (test code = 86 mg/dL 70-110 N GLUBED) BASIC METABOLIC [id number] 05:12:00 Test Item Value Reference Range Interpretation [...] CA) 8.6 MG/DL 8.5-10.1 N BASIC METABOLIC [id number] 05:07:00 Test Item Value Reference Range Interpretation [...] CA) 8.6 MG/DL 8.5-10.1 N GLUCOSE BEDSIDE [id number] 20:21:00 Test Item Value Reference Range Interpretation Comments GLUCOSE BEDSIDE TESTING (test code 119 mg/dL 70-110 H = GLUBED) - CT HEAD/BRAIN W/O [id number] 18:46:00 [facility] 1955 Sex: M Name: CHANNING MARMOLEJO [facility] : 1955 Age/S: 65 / M [address] Unit #: [id number] Loc: [place] [address] Phys: Michele Thompson MD Acct: [id number] Dis Date: Status: ADM IN PHONE #: [phone] Exam Date: 12/10/2020 1843 FAX #: Reason: decrease loc since yesterday EXAMS: CPT: [id number] CT HEAD/BRAIN W/O CONT 67963 EXAM: CT BRAIN WITHOUT CONTRAST INDICATION: decrease loss of consciousness since yesterday COMPARISON: MR dated December 09, 2020 TECHNIQUE: Routine axial CT images of the brain were obtained without venous contrast. IV contrast: None DLP: 875.51 mGy-cm FINDINGS: Thereis an evolving subacute lacunar infarct in the right thalamus. There are chronic lacunar infarcts inthe right black radiata. There are areas of [...] exposure control, adjustment of the mA and orkV according to patient size and/or use of iterative reconstruction technique. at 1846 Reported and signed by: Kelsie Nielsen M.D. PAGE 1 Signed Report (CONTINUED) Name: CHANNING MARMOLEJO [place] : 1955 Age/S: 65 / M [id number] Unit #: [id number] Loc: [place] [address] Phys: Michele Thompson MD Acct: [id number] Dis Date: Status: ADM IN PHONE #: [phone] Exam Date: 12/10/20201842 FAX #: Reason: decrease loc since yesterday EXAMS: CPT: [id number] CT HEAD/BRAIN W/O CONT 32635 (Continued) CC: Michele Thompson MD; Pj Brooks MD Technologist:Sherlyn White, RT(R)(CT); En CTDI: DLP: Trnscb Date/Time:12/10/2020 (1845) [email or web address] Orig Print D/T: S: 12/10/2020 (1848) PAGE 2 Signed Report- DUP EXTRACRANIAL LAINEY 2020-12-10 14:30:00 [facility] : 1955 Sex: M Name: CHANNING MARMOLEJO [place] : 1955 Age/S: 65 / M [id number] Unit #: [id number] Loc: [place] [address] Phys: Pj Brooks MD Acct: [id number] Dis Date: Status: ADM IN PHONE #: [phone] Exam Date: 12/10/2020 1400 FAX #: Reason: ISCHEMIC STROKE EXAMS: CPT: [id number] DUP EXTRACRANIAL LAINEY [address] D[address]ation [address] A1 Carotid Doppler Ultrasound HISTORY: [...] Wilson M.D. CC: Pj Brooks MD Technologist: Mónica Trnscb Date/Time: 12/10/2020 (1430) JeriPXC PAGE 1 Signed Report Name: CHANNING MARMOLEJO [facility] : 1955 Age/S: 65 / M [address] Unit #: [id number] Loc: [place] [address] Phys: Pj Brooks MD Acct: [id number] Dis Date: Status: ADM IN PHONE #: [phone] Exam Date:12/10/2020 1400 FAX #: Reason: ISCHEMIC STROKE EXAMS: CPT: [id number] DUP EXTRACRANIAL LAINEY 51411 (Continued) Orig Print D/T: S: 12/10/2020 (1433) Probe: PAGE 2 Signed ReportGLYCOSYLATED HEMOGLOBIN PANEL 2020-12-10 11:30:00 Test Item Value Reference Range Interpretation Comments GLYCOSYLATED HEMOGLOBIN (HA1C) 5.8 % A1C 0.0-5.7 H (test code = GLYHGB) ESTIMATED AVERAGE GLUCOSE (test 120 MG/DLest code = EAG) COMPREHENSIVE METABOLIC [id number] 11:29:00 Test Item Value Reference Range Interpretation [...] L [Autom ated message] LDL/HDL) The system Gim[employer] generated this result transmit sissy reference range : 1.48-3.22 Avg. The reference range was not used to interpret this result as normal/abnormal . CBC W/AUTO [id number] 11:01:00 Test Item Value Reference Range Interpretation [...] DIFF/SCN CRITERIA = MDIFF) Coronavirus 2019 nCoV [id number] 18:27:00 Test Item Value Reference Range Interpretation Comments Coronavirus 2019 nCoV Negative Negative Per ma nufacturer, Bedside (test code = negativ e results should CVPNR24VMSLB) be treated aspresumptive a nd, if inconsistent wi th clinical signs andsymptoms or necessary for p atient management, pabol uld betested with a n alternative mol ecular assay. Negative resultsdo not p reclude SARS-CoV-2 infe ction and should not be usedas the sole basis for patient man agement decisions. Nega tive results should be considered in t he context of apat ient's recent exposure s, history, presen ce of clinicalsigns a nd symptoms consis tent with COVID-19. - MRI BRAIN W/O [id number] 16:59:00 [facility] 1955 Sex: M FAX: Pj Rodriguez MD [phone] Camps: PM St: ADM Name: CHANNING MARMOLEJO : 1955 Age/S: 65/M [address] Unit #: [id number] Loc: [place] [address] Phys: Pj Brooks MD Acct: [id number] Dis Date: Status: ADM IN PHONE #: [phone] Exam Date: 12/09/2020 1650 FAX #: Reason: r/o CVA EXAMS: CPT: [id number] MRI BRAIN W/O CONTRAST 03539 EXAM: MRI BRAIN WITHOUT CONTRAST INDICATION: CVA [...] The orbits and globes are unremarkable. IMPRESSION: Sm all early subacute lacunar infarct in the right thalamus. Moderate chronic microvascular ischemic changes and diffuse cerebral volume loss. LOCATION: A 1 at 1659 Reported and signed by: Kelsie Nielsen M.D. CC: Pj Peng chnologist: Sherlyn White RT(R)(CT) Transcribed Date/Time/By: 12/09/2020 (1658) :[email or web address] Orig Print D/T: S: 12/09/2020 (2718) PAGE 1 Signed ReportUR PROTEIN [id number] 15:35:00 Test Item Value Reference Range Interpretation Comments UR PROTEIN TOTAL (test code = 19.3 MG/DL 0.0-12.0 H PROTU) UR CREATININE [id number] 15:35:00 Test Item Value Reference Range Interpretation Comments UR CREATININE RANDOM (test code = 97.1 MG/DL 30-125 N CREATU) - US RETRO [id number] 15:10:00 [facility] : 1955 Sex: M Name: CHANNING MARMOLEJO [facility] : 1955 Age/S: 65 / M [address] Unit #: [id number] Loc: [place] [address] Phys: Gamal Rudd MD Acct: [id number] Dis Date: Status: ADM IN PHONE #: [phone] Exam Date: 12/09/2020 1500 FAX #: Reason: evalm of kidney size and echogenicity for ckd EX AMS: CPT: [id number] [facility] [address] Location of dictation: B2 ULTRASOUND OF THE KIDNEYS: CLINICALHISTORY: Evaluate kidney size and echogenicity for chronic kidney disease COMPARISON: None TECHNIQUE: Multiple high resolution images were obtained through the kidneys using a multifrequency curved transducer. FINDINGS: The right kidney measures 10 x 6 x 6.4 cm. The left kidney measures 13 x 8 x 7 cm.The visualized portions of renal parenchyma appear hyperechoic. [...] (1510) JeriPX PAGE 1 Signed Report Name: [place] : 1955 Age/S: 65 / M [address] Unit #: [id number] Loc: [place] [address] Phys: Gamal Rudd MD Acct: [id number] Dis Date: Status: ADM IN PHONE #: [phone] Exam Date: 12/09/2020 1500 FAX #: Reason: evalm of kidney size and echogenicity for ckd EXAMS: CPT: [id number] RETRO LTD 63364 (Continued) Orig Print D/T: S: 12/09/2020 (1514) Probe: PAGE 2 Signed ReportUA RFLX MICR CULT IF [id number] 08:20:00 Test Item Value Reference Range Interpretation [...] Indication for culture: Dysuria/Frequency- XR SHOULDER 2+V [id number] 08:19:00 [facility] : 1955 Sex: M Name: CHANNING MARMOLEJO [facility] : 1955 Age/S: 65 / M [address] Unit #: [id number] Loc: [place] [address] Phys: Mode Duran MD Acct: [id number] Dis Date: Status: REG ER PHONE #: [phone] Exam Date: 12/09/2020814 FAX #: Reason: trauma EXAMS: CPT: [id number] XR SHOULDER 2+[place] [address] Fluoro Time: DAP (Gy m2): Air Kerma [...] Duran MD PAGE 1 Signed Report Name: CHANNING MARMOLEJO : 1955 Age/S: 65 / M [address] Unit #: [id number] Loc: [place] [address] Phys: Mode Duran MD Acct: [id number] Dis Date: Status: REG ER PHONE #: [phone] Exam Date: 12/09/2020814 FAX #: Reason: trauma EXAMS: CPT: [id number] XR SHOULDER 2+[place] [address] Fluoro Time: DAP (Gy m2): Air Kerma (mGy): (Continued) Technologist: Dominguez Molina, RT(R)(CT) Trnscb Date/Time: 12/09/2020 (818) [email or web address] Orig Print D/T: S: 12/09/2020 (0822) PAGE 2 Signed ReportBASIC METABOLIC [id number] 08:11:00 Test Item Value Reference Range Interpretation [...] 8.6 MG/DL 8.5-10.1 N Completed by Nursing: [id number] 08:11:00 Test Item Value Reference Range Interpretation [...] shade yby method. Completed by Nursing: NOPROTHROMBIN [id number] 07:54:00 Test Item Value Reference Range Interpretation Comments PT PATIENT (test code = PTP) 11.7 SECONDS 9.3-12.9 N INTERNATIONAL NORMAL RATIO 1.04 INR Unit 0.8-1.2 N (test code = INR) THROMBOPLASTIN TIME [id number] 07:54:00 Test Item Value Reference Range Interpretation Comments THROMBOPLASTIN TIME PARTIAL 33.0 SECONDS 26-35 N (test code = PTT) - CT HEAD/BRAIN W/O [id number] 07:48:00 [facility] : 1955 Sex: M Name: CHANNING MARMOLEJO [facility] : 1955 Age/S: 65 / M [address] Unit #: [id number] Loc: [place] [address] Phys: Mode Duran MD Acct: [id number] Dis Date: Status: PRE ER PHONE #: [phone] Exam Date: 12/09/202037 FAX #: Reason: Code Stroke EXAMS: CPT: [id number] CT HEAD/BRAIN W/O CONT 54791 EXAM: - CT HEAD/BRAIN W/O CONT INDICATION: [...] of acute territorial infarct, or intracranial hemorrhage seen.No mass effect, midline shift or hydrocephalus seen. [...] CVR at 0748 Reported and signed by: Isaisa De Oliveira M.D. PAGE 1 Signed Report (CONTINUED) Name: CHANNING MARMOLEJO [place] : 1955 Age/S: 65 / M [address] Unit #: [id number] Loc: [place] [address] Phys: Mode Duran MD Acct: [id number] Dis Date: Status: PRE ER PHONE #: [phone] Exam Date: 12/09/2020 1771 FAX #: Reason: Code Stroke EXAMS: CPT: [id number] CT HEAD/BRAIN W/O CONT 34908 (Continued) CC: Mode Duran MD Technologist:Lewis See, RT(R) CTDI: DLP: TrnscbDate/Time: 12/09/2020 (0748) [email or web address] Orig Print D/T: S: 12/09/2020 (0757) PAGE 2 Signed ReportCBC W/O [id number] 07:47:00 Test Item Value Reference Range Interpretation [...]
[2022-11-01] MEDS ORDERED: NA CHLORIDE 0.9% 1,000 ML ONE (12:16)
[2022-11-01 12:33] LABS: Protime INR 1.2
--- NOTE | 2022-11-01 12:34 | RAD REPORT ---
EXAM DESCRIPTION: CT - Stone Protocol - 11/01/2022 12:21 pm CLINICAL HISTORY: abd pain COMPARISON: Stone Protocol dated 10/23/2022 TECHNIQUE: Axial 3 mm thick images were obtained without oral or IV contrast. The kxkxx-ii-hdyt span s the entirety of the system including uppermost abdomen and lung bases. All CT scans are performed using dose optimization technique as appropriate and may include automated exposure control or mA/KV adjustment according to patient size. FINDINGS: Marked hydronephrosis of the left collecting system is present. Remaining renal cortex is very thin. Left-sided renal function may be absent or significantly reduced. Double pigtail stent is in place in the left collecting system with the proximal pigtail in the lower pelvis near the UPJ. No stones seen along the course of the stent. Pigtail stent is in place in the right collecting system as well. Proximal pigtail is in the mid right renal pelvis. There is significant right-sided hydronep hrosis as well. Upper pole and lower pole renal cysts are present. No stones seen along the course of the pigtail. The urinary bladder is fully contracted around a Ayala catheter. No suspicious renal ma sses. Isodense masses and pyelonephritis are not excluded on a stone protocol CT scan. No significant adrenal finding. Imaged portions of the liver, spleen and pancreas show no suspicious findings on non-contrast imaging . Gallbladder is contracted. No biliary tree dilatation. No gastric dilatation or gastric wall thickening seen. No small bowel abnormality. The appendix is no rmal. The patient has a large stool volume filling and distending the colon from cecum through descen ding colon. There is moderate sigmoid and distal descending colon diverticulosis. There is a very lar ge stool volume dilating the rectum to over 8 cm. Underlying mass lesion of the colon not identified. No hernia, mass or bulky lymphadenopathy noted. No free air, free fluid or inflammatory stranding. Disc and bone degenerative changes are present. IMPRESSION: Moderately severe right-sided and very severe left-sided hydronephrosis similar to the D ecember 26 imaging. Only a small thin rim of left renal cortical tissues seen. Bilateral pigtail stents are in place, new from the comparison examination. There has been no reducti on in the degree of hydronephrosis since stent placement. Very large stool volume dilating the rectum to over 8 cm. Patient has an overall large stool volume d istending the entirety of the colon. Isodense masses and pyelonephritis are not excluded on stone protocol technique.
[2022-11-01 12:35] LABS: Absolute Lymphocytes (CBC) 1.9 K/uL (0.7-4.9); Hematocrit 38.3 % (39.6-49.0); Lymphocytes % 25.8 % (15.3-44.8); MCV 83.4 fL (80-100); MPV 9.9 fL (7.6-11.3)
[2022-11-01 12:42] LABS: Urine Blood 3+ (Negative); Urine Glucose Trace (Negative); Urine Protein 3+ (Negative); Urine pH 5.5 (5.0-7.0)
[2022-11-01 12:55] LABS: Albumin 3.2 g/dL (3.4-5.0); Bilirubin Direct 0.2 mg/dL (0-0.2); Bilirubin Total 0.7 mg/dL (0.2-1.0); Protein, Total 7.5 g/dL (6.4-8.2); Troponin High Sensitivity 7.8 pg/mL (<58.9)
[2022-11-01 13:02] LABS: Potassium 3.8 mmol/L (3.5-5.1)
--- NOTE | 2022-11-01 13:02 | RAD REPORT ---
EXAM DESCRIPTION: Bertha Single View11/01/2022 12:34 pm CLINICAL HISTORY: Abdominal pain COMPARISON: September 2022 FINDINGS: The lungs appear clear of acute infiltrate. The heart is normal size IMPRESSION: No acute abnormalities displayed
[2022-11-01 13:03] LABS: Magnesium 2.3 mg/dL (1.6-2.4)
[2022-11-01] MEDS ORDERED: ONDANSETRON 4 MG/2 ML VIAL ONE (13:52)
[2022-11-01] MEDS ORDERED: MORPHINE 4 MG/ML SYR ONE (13:52)
[2022-11-01] MEDS ORDERED: BISACODYL 10 MG RECTAL SUPP ONE (15:28)
[2022-11-01] MEDS ORDERED: LACTULOSE 20 GM/30 ML UCUP ONE ×2 (15:29→15:49)
[2022-11-01] MEDS ORDERED: FLEET ENEMA ADULT PR ONE (15:29)
--- NOTE | 2022-11-01 15:31 | EDPHYS ---
Physician Documentation [facility] Name: Channing Marmolejo Age: 67 yrs Sex: Male : 1955 Arrival Date: 11/01/2022 Time: 11:49 Bed 15 Private MD: ED Physician Matt Jack HPI: 11/01 15:23 This 67 yrs old Black Male presents to ER via EMS with complaints of Abdominal Pain. zo 15:23 The patient presents with abdominal pain in the upper abdomen, in the lower abdomen, zo abdominal distention in the upper abdomen, in the lower abdomen. Onset: The symptoms/episode began/occurred 7 day(s) ago. The symptoms do not radiate. Associated signs and symptoms: Pertinent positives: constipation. The symptoms are described as crampy, dull. Modifying factors: The symptoms are alleviated by nothing, the symptoms are aggravated by alcohol. Severity of pain: At its worst the pain was moderate in the emergency department the pain is unchanged. The patient has experienced similar episodes in the past, multiple times. Historical: - Allergies: 12:20 No Known Allergies; ko1 - Home Meds: 12:20 amlodipine 10 mg tab once daily [Active]; atorvastatin 40 mg Oral tab 1 tab once daily ko1 [Active]; Carbidopa-Levodopa Oral 3 times per day [Active]; carvedilol 12.5 mg Oral tab every 12 hours [Active]; donepezil 5 mg Oral tab twice a day [Active]; tamsulosin 0.4 mg Oral cap once daily [Active]; ergocalciferol (vitamin D2) 50,000 unit Oral tab every sunday at 0800 [Active]; Cipro Oral [Active]; Folic Acid Oral [Active]; Phenazopyridine Oral [Active]; - PMHx: 12:20 TOMMIE, Postobstructive Renal Failure; Carotid artery blockage; COPD; CVA; Hypertension; ko1 Seizure; - PSHx: 12:20 Bladder Stent; ko1 - Immunization history:: Adult Immunizations unknown. - Social history:: Smoking status: unknown. - Family history:: not pertinent. ROS: 15:23 Constitutional: Negative for fever, chills, and weight loss, Eyes: Negative for injury, zo pain, redness, and discharge, ENT: Negative for injury, pain, and discharge, Neck: Negative for injury, pain, and swelling, Cardiovascular: Negative for chest pain, palpitations, and edema, Respiratory: Negative for shortness of breath, cough, wheezing, and pleuritic chest pain, Back: Negative for injury and pain, : Negative for injury, bleeding, discharge, and swelling, MS/Extremity: Negative for injury and deformity, Skin: Negative for injury, rash, and discoloration, Psych: Negative for depression, anxiety, suicide ideation, homicidal ideation, and hallucinations, Allergy/Immunology: Negative for hives, rash, and allergies, Endocrine: Negative for neck swelling, polydipsia, polyuria, polyphagia, and marked weight changes, Hematologic/Lymphatic: Negative for swollen nodes, abnormal bleeding, and unusual bruising. 15:23 Abdomen/GI: Positive for abdominal pain, constipation, abdominal cramps. 15:23 Neuro: Positive for weakness. Exam: 15:23 Constitutional: This is a well developed, well nourished patient who is awake, alert, zo and in no acute distress. Head/Face: Normocephalic, atraumatic. Eyes: Pupils equal round and reactive to light, extra-ocular motions intact. Lids and lashes normal. Conjunctiva and sclera are non-icteric and not injected. Cornea within normal limits. Periorbital areas with no swelling, redness, or edema. ENT: Nares patent. No nasal discharge, no septal abnormalities noted. Tympanic membranes are normal and external auditory canals are clear. Oropharynx with no redness, swelling, or masses, exudates, or evidence of obstruction, uvula midline. Mucous membranes moist. Neck: Trachea midline, no thyromegaly or masses palpated, and no cervical lymphadenopathy. Supple, full range of motion without nuchal rigidity, or vertebral point tenderness. No Meningismus. Chest/axilla: Normal chest wall appearance and motion. Nontender with no deformity. No lesions are appreciated. Cardiovascular: Regular rate and rhythm with a normal S1 and S2. No gallops, murmurs, or rubs. Normal PMI, no JVD. No pulse deficits. Respiratory: Lungs have equal breath sounds bilaterally, clear to auscultation and percussion. No rales, rhonchi or wheezes noted. No increased work of breathing, no retractions or nasal flaring. Back: No spinal tenderness. No costovertebral tenderness. Full range of motion. Male : Normal genitalia with no discharge or lesions. Skin: Warm, dry with normal turgor. Normal color with no rashes, no lesions, and no evidence of cellulitis. MS/ Extremity: Pulses equal, no cyanosis. Neurovascular intact. Full, normal range of motion. Neuro: Awake and alert, GCS 15, oriented to person, place, time, and situation. Cranial nerves II-XII grossly intact. Motor strength 5/5 in all extremities. Sensory grossly intact. Cerebellar exam normal. Normal gait. Psych: Awake, alert, with orientation to person, place and time. Behavior, mood, and affect are within normal limits. 15:23 ECG was reviewed by the Attending Physician. 15:23 Abdomen/GI: Inspection: abdomen appears normal, Bowel sounds: normal, Palpation: mild abdominal tenderness, in the left upper quadrant and left lower quadrant, Rectal exam: rectal tone normal, Stool: normal, fecal impaction, that is moderate, that is severe, Liver: no appreciated palpable abnormalities, Hernia: not appreciated. Vital Signs: 12:00 BP 140 / 68; Pulse 75; Resp 18; Temp 98.1; Pulse Ox 100% on R/A; Pain 0/10; ko1 12:54 BP 144 / 68; Pulse 62; Resp 18; Pulse Ox 96% ; ko1 13:53 BP 164 / 86; Pulse 62; Resp 19; Pulse Ox 100% ; bp 16:00 BP 135 / 76; Pulse 67; Resp 16; Pulse Ox 98% on R/A; ko1 MDM: 11:51 Patient medically screened. zo 15:27 Differential diagnosis: bowel obstruction, coronary artery disease, Cholelithiasis, zo diverticulitis, gastritis, Irritable bowel syndrome, non-specific abd pain, pancreatitis, Peptic Ulcer Disease, Pyelonephritis, Ureterolithiasis, urinary tract infection. Data reviewed: vital signs, nurses notes, lab test result(s), EKG, radiologic studies, CT scan, plain films. Data interpreted: Pulse oximetry: on room air is 10 %. Test interpretation: by ED physician or midlevel provider: ECG, plain radiologic studies. Counseling: I had a detailed discussion with the patient and/or guardian regarding: the historical points, exam findings, and any diagnostic results supporting the discharge/admit diagnosis, lab results, radiology results, the need for further work-up and treatment in the hospital. 11/01 11:53 Order name: Basic Metabolic Panel; Complete Time: 14:59 zo 11/01 11:53 Order name: CBC with Diff; Complete Time: 14:59 zo 11/01 11:53 Order name: LFT's; Complete Time: 14:59 zo 11/01 11:53 Order name: Magnesium; Complete Time: 14:59 zo 11/01 11:53 Order name: NT PRO-BNP; Complete Time: 14:59 zo 11/01 11:53 Order name: PT-INR; Complete Time: 14:59 zo 11/01 11:53 Order name: Troponin HS; Complete Time: 14:59 zo 11/01 11:53 Order name: Urine Culture [facility] 11/01 11:53 Order name: Lipase; Complete Time: 14:59 zo 11/01 12:43 Order name: Urine Dipstick-Ancillary; Complete Time: 14:59 EDMS 11/01 16:58 Order name: SARS-COV-2 Antigen Rapid 11/01 17:00 Order name: Creatine Phosphokinase EDMS 11/01 17:00 Order name: Magnesium EDIA 11/01 17:00 Order name: Phosphorus EDMS 11/01 11:53 Order name: XRAY Chest (1 view); Complete Time: 14:59 zo 11/01 11:53 Order name: CT Stone Protocol; Complete Time: 14:59 zo 11/01 17:00 Order name: Urinalysis EDMS 11/01 17:00 Order name: Basic Metabolic Panel EDMS 11/01 17:00 Order name: Basic Metabolic Panel EDMS 11/01 17:00 Order name: CBC with Automated Diff EDMS 11/01 17:00 Order name: CBC with Automated Diff EDMS 11/01 17:00 Order name: NT PRO-BNP EDMS 11/01 17:00 Order name: NT PRO-BNP EDMS 11/01 18:06 Order name: SARS-COV-2 Antigen Rapid EDMS 11/01 11:53 Order name: EKG; Complete Time: 11:54 zo 11/01 11:53 Order name: Cardiac monitoring; Complete Time: 12:08 zo 11/01 11:53 Order name: EKG - Nurse/Tech; Complete Time: 12:27 zo 11/01 11:53 Order name: IV Saline Lock; Complete Time: 12:08 zo 11/01 11:53 Order name: Labs collected and sent; Complete Time: 12:08 [facility] 11/01 11:53 Order name: O2 Per Protocol; Complete Time: 12:08 [facility] 11/01 11:53 Order name: O2 Sat Monitoring; Complete Time: 12:08 [facility] 11/01 11:53 Order name: Urine Dipstick-Ancillary (obtain specimen); Complete Time: 12:27 [facility] 11/01 15:21 Order name: Misc. Order: fleets enema; Complete Time: 15:44 [facility] 11/01 17:00 Order name: Heart Healthy EDMS EC: Rate is 59 beats/min. Rhythm is regular. QRS [place] is Normal. GA interval is shortened zo at 108 msec. QRS interval is normal. No Q waves. T waves are Normal. No ST changes noted. Clinical impression: NSR w/ Non-specific ST/T Changes and No evidence of ischemia. Reviewed by me. Administered Medications: 12:50 Drug: NS 0.9% 1000 ml Route: IV; Rate: 125 ml/hr; Site: right forearm; ko1 13:52 Drug: morphine 4 mg Route: IVP; Infused Over: 4 mins; Site: right forearm; bp 13:52 Follow up: Response: No adverse reaction bp 13:52 Drug: Zofran (Ondansetron) 4 mg Route: IVP; Site: right forearm; bp 13:52 Follow up: Response: No adverse reaction bp 15:44 Drug: Lactulose 30 grams Volume: 45 ml; Route: PO; ko1 15:44 Drug: Dulcolax (bisacodyl) Suppository 10 mg Route: GA; ko1 16:40 Drug: Zosyn (piperacillin-tazobactam) 2.25 grams Route: IVPB; Infused Over: 60 mins; ko1 Site: right forearm; Disposition Summary: 11/01/22 15:30 Hospitalization Ordered Hospitalization Status: Observation zo Condition: Fair zo Problem: new zo Symptoms: have improved zo Bed/Room Type: Standard zo Provider: Will Torres(11/01/22 15:36) zo Location: Telemetry/MedSurg (observation)(11/02/22 10:02) bd Room Assignment: 429(11/02/22 10:02) bd Diagnosis - Constipation - RECTAL IMPACTION zo - UTI/ Urinary tract infection, site not specified zo - Mechanical complication of urinary (indwelling) catheter - PAIN zo - Unspecified kidney failure - CHRONIC zo Forms: - Medication Reconciliation Form zo - SBAR form zo Signatures: Dispatcher [employer] EDNikia Garland Corey, MD MD cha Peltier, Brian, RN RN Ashley Myrick RN RN eb1 Madison Velásquez RN RN ko1 Corrections: (The following items were deleted from the chart) 12: 12:20 Home Meds: aspirin 81 mg Oral tab daily; ko1 ko1 12:25 12:20 Home Meds: clopidogrel 75 mg Oral tab once daily; ko1 ko1 12:25 12:20 Home Meds: tamsulosin 0.4 mg oral cap; ko1 ko1 15:36 15:30 Evgeny Torres cha [facility] 19:21 15:30 Telemetry/MedSurg (observation) zo eb1 19:21 15:30 zo eb1 11/02 10:02 11/01 19:21 [facility] ER HOLD eb1 bd 11/02 10:11/01 19:21 ERHOLD- eb1 bd
--- NOTE | 2022-11-01 15:31 | ER ---
Nurse's Notes [facility] Name: Channing Marmolejo Age: 67 yrs Sex: Male : 1955 Arrival Date: 11/01/2022 Time: 11:49 Bed 15 Private MD: Diagnosis: Constipation-RECTAL IMPACTION;UTI/ Urinary tract infection, site not specified;Mechanical complication of urinary (indwelling) catheter-PAIN;Unspecified kidney failure-CHRONIC Presentation: 11/01 12:00 Chief complaint: EMS states: home health nurse called for abdominal pain and no bowel ko1 movement even after receiving a saline enema 2 days ago and "dairy aid" 4 days ago. Coronavirus screen: At this time, the client does not indicate any symptoms associated with coronavirus-19. Ebola Screen: No symptoms or risks identified at this time. Initial Sepsis Screen: Does the patient meet any 2 criteria? No. Patient's initial sepsis screen is negative. Does the patient have a suspected source of infection? No. Patient's initial sepsis screen is negative. Risk Assessment: Do you want to hurt yourself or someone else? Patient reports no desire to harm self or others. Onset of symptoms was November 01, 2022. 12:00 Method Of Arrival: EMS: [facility] ko1 12:00 Acuity: KANWAL 3 ko1 Triage Assessment: 12:20 General: Appears in no apparent distress. ill, slender, Behavior is calm, cooperative. ko1 Pain: Denies pain. EENT: No deficits noted. Neuro: No deficits noted. Cardiovascular: No deficits noted. Respiratory: No deficits noted. GI: Parent/caregiver reports the patient having constipation. : Ayala in place to gravity drainage. Derm: No deficits noted. Musculoskeletal: No deficits noted. Historical: - Allergies: 12:20 No Known Allergies; ko1 - Home Meds: 12:20 amlodipine 10 mg tab once daily [Active]; atorvastatin 40 mg Oral tab 1 tab once daily ko1 [Active]; Carbidopa-Levodopa Oral 3 times per day [Active]; carvedilol 12.5 mg Oral tab every 12 hours [Active]; donepezil 5 mg Oral tab twice a day [Active]; tamsulosin 0.4 mg Oral cap once daily [Active]; ergocalciferol (vitamin D2) 50,000 unit Oral tab every sunday at 0800 [Active]; Cipro Oral [Active]; Folic Acid Oral [Active]; Phenazopyridine Oral [Active]; - PMHx: 12:20 TOMMIE, Postobstructive Renal Failure; Carotid artery blockage; COPD; CVA; Hypertension; ko1 Seizure; - PSHx: 12:20 Bladder Stent; ko1 - Immunization history:: Adult Immunizations unknown. - Social history:: Smoking status: unknown. - Family history:: not pertinent. Screenin:05 [facility] ED Fall Risk Assessment (Adult) History of falling in the last 3 months, ko1 including since admission No falls in past 3 months (0 pts) Confusion or Disorientation No (0 pts) Intoxicated or Sedated No (0 pts) Impaired Gait Yes (1 pt) Mobility Assist Device Used Yes (1 pt) Altered Elimination Yes (1 pt) Score/Fall Risk Level 3 or more points = High Risk Oriented to surroundings, Maintained a safe environment, Educated pt \\T\\ family on fall prevention, incl call for assistance when getting out of bed, Assessed \\T\\ reinforced patient's understanding of fall precautions, Provided non-skid footwear, Hourly rounding (assess needs \\T\\ fall precautionary measures) done, Used ambulatory aids as needed (educated on \\T\\ assisted with), Used gait belt as appropriate Implemented a Fall Risk Plan of Care, Apply high fall risk patient identification: yellow non skid footwear/ fall signage, Remained w/in arm's length of patient and in sight while toileting, Offered frequent toileting (1:1 observation), Remained with patient while ambulating, Utilized family, sitter, or virtual vice president underwriting as indicated. Abuse screen: Denies threats or abuse. Denies injuries from another. Nutritional screening: No deficits noted. Tuberculosis screening: No symptoms or risk factors identified. Assessment: 12:05 Reassessment: Patient appears in no apparent distress at this time. No changes from ko1 previously documented assessment. Patient is alert, oriented x 3, equal unlabored respirations, skin warm/dry/pink. Patient denies pain at this time. 12:08 GI: Bowel sounds hyperactive in right upper quadrant, left upper quadrant, right lower ko1 quadrant and left lower quadrant Guarding noted in right lower quadrant and left lower quadrant. Vital Signs: 12:00 BP 140 / 68; Pulse 75; Resp 18; Temp 98.1; Pulse Ox 100% on R/A; Pain 0/10; ko1 12:54 BP 144 / 68; Pulse 62; Resp 18; Pulse Ox 96% ; ko1 13:53 BP 164 / 86; Pulse 62; Resp 19; Pulse Ox 100% ; bp 16:00 BP 135 / 76; Pulse 67; Resp 16; Pulse Ox 98% on R/A; ko1 ED Course: 11:49 Patient arrived in ED. ko1 11:51 Matt Jack MD is Attending Physician. [facility] 11:56 Madison Velásquez, USHA is Primary Nurse. ko1 12:05 Inserted saline lock: 20 gauge in right forearm, using aseptic technique. Blood ko1 collected. Patient maintains SpO2 saturation greater than 95% on room air. 12:05 No provider procedures requiring assistance completed. ko1 12:08 Lipase Sent. ko1 12:08 Basic Metabolic Panel Sent. ko1 12:08 CBC with Diff Sent. ko1 12:08 LFT's Sent. ko1 12:08 Magnesium Sent. ko1 12:08 NT PRO-BNP Sent. ko1 12:08 PT-INR Sent. ko1 12:08 Troponin HS Sent. ko1 12:20 Triage completed. ko1 12:20 Arm band placed on left wrist. ko1 12:22 CT Stone Protocol In Process Unspecified. EDMS 12:26 Patient has correct armband on for positive identification. Fall risk band placed. ko1 Placed in gown. Bed in low position. Call light in reach. Side rails up X2. Client placed on continuous cardiac and pulse oximetry monitoring. NIBP monitoring applied. screen printing machine operator on. Warm blanket given. Head of bed elevated. Elevated foot. 12:35 Urine collected: Ayala catheter specimen, iliana colored, orange. ko1 12:36 XRAY Chest (1 view) In Process Unspecified. EDMS 12:44 Urine Culture Sent. ko1 15:28 Evgeny Torres MD is Hospitalizing Provider. [facility] 15:36 Will Torres MD is Hospitalizing Provider. [facility] 11/02 11:20 Patient admitted, IV remains in place. ko1 Administered Medications: 11/01 12:50 Drug: NS 0.9% 1000 ml Route: IV; Rate: 125 ml/hr; Site: right forearm; ko1 13:52 Drug: morphine 4 mg Route: IVP; Infused Over: 4 mins; Site: right forearm; bp 13:52 Follow up: Response: No adverse reaction bp 13:52 Drug: Zofran (Ondansetron) 4 mg Route: IVP; Site: right forearm; bp 13:52 Follow up: Response: No adverse reaction bp 15:44 Drug: Lactulose 30 grams Volume: 45 ml; Route: PO; ko1 15:44 Drug: Dulcolax (bisacodyl) Suppository 10 mg Route: OH; ko1 16:40 Drug: Zosyn (piperacillin-tazobactam) 2.25 grams Route: IVPB; Infused Over: 60 mins; ko1 Site: right forearm; Medication: 16:00 VIS not applicable for this client. ko1 Outcome: 15:30 Decision to Hospitalize by Provider. zo 11/02 11:20 Admitted to Med/surg accompanied by tech, via stretcher, room 429, with chart. ko1 Condition: stable Instructed on the need for admit. 11:21 Patient left the ED. ko1 Signatures: Dispatcher [employer] EDMatt Dejesus MD MD cha Peltier, Brian, RN RN Madison Devi, RN RN ko1 Corrections: (The following items were deleted from the chart) 11/01 12:25 12:20 Home Meds: aspirin 81 mg Oral tab daily; ko1 ko1 12:25 12:20 Home Meds: clopidogrel 75 mg Oral tab once daily; ko1 ko1 12:25 12:20 Home Meds: tamsulosin 0.4 mg oral cap; ko1 ko1
[2022-11-01] MEDS ORDERED: PIPERACIL/TAZO 2.25 GM VIAL IV ONE (15:49)
[2022-11-01] MEDS ORDERED: ONDANSETRON 4 MG/2 ML VIAL IV PRN (16:56)
[2022-11-01] MEDS ORDERED: HYDRALAZINE HCL 20 MG/ML VIAL IV PRN (17:03)
[2022-11-01] MEDS ORDERED: FLEET ENEMA ADULT PR PRN (17:06)
[2022-11-01] MEDS ORDERED: LACTULOSE 20 GM/30 ML UCUP PO PRN (17:07)
--- NOTE | 2022-11-01 17:12 | P.HP ---
Certification for Inpatient Patient admitted to: Observation With expected LOS: <2 Midnights Patient will require the following post-hospital care: None Practitioner: I am a practitioner with admitting privileges, knowledge of patient current condition, hospital course, and medical plan of care. Services: Services provided to patient in accordance with Admission requirements found in Title 42 Section 412.3 of the Code of Federal Regulations Patient History Date of Service: 11/02/22 Reason for admission: Abdominal pain History of Present Illness: Patient is a 67-year-old male with a past medical history significant for hypertension, HLD, Parkinson's disease, BPH, dementia who presents with complaint of generalized abdominal pain. Patient is alert and oriented x1 and confused. Patient is unable to provide accurate history. Family reported that patient has been having abdominal pain for the past 7 days with associated signs and symptoms of abdominal distention and constipation. No other signs or symptoms reported. Symptoms are aggravated or relieved by nothing. Patient was brought to the hospital for medical evaluation. Allergies No Known Allergies Allergy (Verified 12/23/20 16:33) Home Medications: Tamsulosin [Flomax*] 2 cap PO DAILY 03/19/20 Aspirin 81 mg PO DAILY 12/23/20 Atorvastatin Calcium [Lipitor] 1 tab PO BEDTIME 12/23/20 carvediloL [Coreg*] 12.5 mg PO BID 12/23/20 Clopidogrel Bisulfate [Plavix*] 75 mg PO DAILY #30 tablet 09/05/21 Donepezil HCl 10 mg PO DAILY 09/05/21 Amlodipine [Norvasc*] 10 mg PO DAILY 10/24/22 Carbidopa/Levodopa 25-100 [Sinemet 25-100*] 25 - 100 mg PO TID 10/24/22 Cefdinir [Cefdinir*] 300 mg PO DAILY #7 cap 10/26/22 - Past Medical/Surgical History Diabetic: No -: HTN -: Hyperlipidemia -: Chronic Kidney disease -: COPD -: History of Cocaine abuse -: Carotid Occlusive Disease -: History of CVA/TIA-no residual -: Chronic Hepatitis C -: Chronic Back pain -: Cervical Spondylosis -: UGI bleed -: Lt shoulder sx -: GI ulcer sx Psychosocial/ Personal History: . 8-Children. Has home health. - Family History Mother -: Hypertension Father -: Hypertension Notes: Brother -: Hypertension Sister -: Hypertension - Social History Smoking Status: Unknown if ever smoked Alcohol use: Yes CD- Drugs: Yes Caffeine use: No Place of Residence: Home Review of Systems is unable to be obtained (Unable to assess. Patient confused.) Physical Examination - Physical Exam General: Alert, In no apparent distress, Oriented x1 HEENT: Atraumatic, PERRLA, Mucous membr. moist/pink, EOMI, Sclerae nonicteric Neck: Supple, 2+ carotid pulse no bruit, No LAD, Without JVD or thyroid abnormality Respiratory: Clear to auscultation bilaterally, Normal air movement Cardiovascular: No edema, Regular rate/rhythm, Normal S1 S2 Capillary refill: <2 Seconds Gastrointestinal: Hypoactive, Tenderness Musculoskeletal: No clubbing, No swelling, No contractures Integumentary: No rashes, No erythema Neurological: Normal speech, Normal tone, Normal affect Lymphatics: No axilla or inguinal lymphadenopathy - Studies Laboratory Data (last 24 hrs) 11/01/22 12:05: PT 13.2 H, INR 1.20 11/01/22 12:05: WBC 7.50, Hgb 12.4 L, Hct 38.3 L, Plt Count 327 11/01/22 12:05: Sodium 141, Potassium 3.8, BUN 18, Creatinine 1.90 H, Glucose 131 H, Magnesium 2.3, Total Bilirubin 0.7, AST 14 L, ALT 15 L, Alkaline Phosphatase 84, Lipase 205 Assessment and Plan - Plan --Constipation. As noted on CT imaging. Surgeon on board. Patient placed on laxatives and enema. We will further recommendation from surgeon. --Hypertension. Poorly controlled. Continue home medications and --Hyperlipidemia. Continue statin --Parkinson's disease. Continue home medications. --BPH. Continue Flomax. --Dementia. Continue home medications. --Anemia of chronic disease. H&H stable. We will continue to monitor hemoglobin and transfuse if less than 7.0. -- CKD 3B. Stable. Will continue to monitor renal functions. -- UTI POA. Continue antibiotics. Urine cultures pending. --DVT prophylaxis with heparin subQ Discharge Plan: Home Plan to discharge in: 48 Hours - Advance Directives Does patient have a Living Will: No Does patient have a Durable POA for Healthcare: No - Code Status/Comfort Care Code Status Assessed: Yes Physician Review: Patient Assessed, Agree with Above Assessment and Plan Critical Care: No
[2022-11-01] MEDS: ASPIRIN 81 MG CHEWABLE TABLET PO SCH (18:00)
[2022-11-01 18:06] LABS: SARS-CoV-2 Antigen Rapid Res Negative (Negative)
[2022-11-01 21:27] LABS: Magnesium 2.2 mg/dL (1.6-2.4); Phosphorus 2.5 mg/dL (2.5-4.9)
[2022-11-01] MEDS ORDERED: ATORVASTATIN 20 MG TAB ONE (22:45)
[2022-11-01] MEDS ORDERED: HEPARIN 5000 UNIT/ML 1 ML VIAL ONE (22:45)
[2022-11-01] MEDS: ATORVASTATIN 40 MG TAB PO SCH (23:00)
[2022-11-01] MEDS: HEPARIN 5000 UNIT/ML 1 ML VIAL SQ SCH (23:00)
[2022-11-01] MEDS: CARBIDOPA/LEVODOPA 25/100 TAB PO SCH (23:00)
[2022-11-02 00:56] VITALS: BMI 19.5
[2022-11-02] MEDS: carvediloL 12.5 MG TAB PO SCH ×3 (01:45→21:02)
[2022-11-02] MEDS ORDERED: carvediloL 6.25 MG TAB ONE ×2 (02:01→08:47)
[2022-11-02] MEDS ORDERED: ONDANSETRON 4 MG/2 ML VIAL ONE (02:02)
[2022-11-02] MEDS ORDERED: ACETAMINOPHEN 325 MG TABLET ONE ×2 (02:39→09:40)
[2022-11-02] MEDS: ACETAMINOPHEN 325 MG TABLET PO PRN ×2 (02:41→09:12)
[2022-11-02 02:57] LABS: Absolute Lymphocytes (CBC) 2.3 K/uL (0.7-4.9); Hematocrit 36.4 % (39.6-49.0); Lymphocytes % 30.7 % (15.3-44.8); MCV 82.8 fL (80-100); MPV 10.2 fL (7.6-11.3); RBC Red Blood Cell Count 4.39 M/uL (4.33-5.43)
[2022-11-02 03:23] LABS: Potassium 4.2 mmol/L (3.5-5.1)
[2022-11-02] MEDS ORDERED: ASPIRIN 81 MG CHEWABLE TABLET ONE (08:47)
[2022-11-02] MEDS ORDERED: CEFTRIAXONE 1000 MG/VIAL ONE (08:47)
[2022-11-02] MEDS ORDERED: HEPARIN 5000 UNIT/ML 1 ML VIAL ONE (08:47)
[2022-11-02] MEDS ORDERED: TAMSULOSIN 0.4 MG SR CAP ONE (08:47)
[2022-11-02] MEDS ORDERED: CLOPIDOGREL 75 MG TABLET ONE (08:47)
[2022-11-02] MEDS ORDERED: AMLODIPINE 10 MG TAB ONE (08:48)
[2022-11-02] MEDS: CLOPIDOGREL 75 MG TABLET PO SCH (09:00)
[2022-11-02] MEDS ORDERED: DONEPEZIL HCL 5 MG TAB PO SCH (09:00)
[2022-11-02] MEDS: CARBIDOPA/LEVODOPA 25/100 TAB PO SCH ×3 (09:00→21:02)
[2022-11-02] MEDS: AMLODIPINE 10 MG TAB PO SCH (09:00)
[2022-11-02] MEDS: HEPARIN 5000 UNIT/ML 1 ML VIAL SQ SCH ×2 (09:00→21:03)
[2022-11-02] MEDS: TAMSULOSIN 0.4 MG SR CAP PO SCH (09:00)
[2022-11-02] MEDS: CEFTRIAXONE 1,000 MG in NA CHLORIDE 0.9% 50 ML IVPB SCH (09:00)
[2022-11-02] MEDS: ASPIRIN 81 MG CHEWABLE TABLET PO SCH (09:00)
[2022-11-02] MEDS ORDERED: HOME MED 1 EA UNK (Donepezil Hcl [Donepezil Hcl] 10 MG Tablet) PO SCH (09:00)
[2022-11-02] MEDS ORDERED: FLEET ENEMA ADULT PR ONE (09:43)
[2022-11-02] MEDS ORDERED: MINERAL OIL 30 ML UCUP PO PRN (11:31)
[2022-11-02] MEDS ORDERED: BISACODYL 10 MG RECTAL SUPP PR PRN (11:32)
--- NOTE | 2022-11-02 15:24 | EKG ---
Test Date: 2022-11-01 Test Time: 12:31:44 Senior Credit Analyst: DESTINY MEASUREMENT RESULTS: Intervals: Rate: 59 SD: 108 QRSD: 66 QT: 420 QTc: 415 [place]: P: 39 SD: 108 QRS: 29 T: 39 INTERPRETIVE STATEMENTS: Sinus bradycardia with short SD Otherwise normal ECG Compared to ECG 10/23/2022 12:28:03 Short SD interval now present Sinus rhythm no longer present Electronically Signed On 11-02-22 15:21:50 HEALTH INFORMATION ASSISTANT by Everton Mehta
[2022-11-02] MEDS: MINERAL OIL 30 ML UCUP PO SCH (17:05)
[2022-11-02] MEDS: ATORVASTATIN 40 MG TAB PO SCH (21:02)
--- NOTE | 2022-11-02 21:44 | P.PN ---
Date of Service: 11/02/22 Subjective: still with abd discomfort 1 BM this morning ROS: A complete review of systems was performed and is negative except as mentioned above Physical Exam: Gen: uncomfortable HEENT: normal conjunctiva, sclera anicteric CV: regular rate & rhythm, no edema Pulm: non-labored respirations, clear bilaterally Abd: soft, mild tenderness diffusely Skin: no rashes, no lesions vitals reviewed sepulveda (came in with it in place) Problem List Constipation with Immpaction HTN HLD Parkinson's disease BPH Anemia of chronic disease b/l hydronephrosis s/p stent continue enemas, laxatives general surgery consulted mineral oil ordered restart home meds BM this morning, still with discomfort patient to f/u with Urology as outpatient regarding sepulveda and b/l hydronephrosis Code: full Dispo: home, ~24-48hrs Time Spent Managing Pts Care (In Minutes): 35
[2022-11-03 03:45] LABS: Potassium 3.9 mmol/L (3.5-5.1)
[2022-11-03 03:49] LABS: Hematocrit 38.2 % (39.6-49.0); MCV 82.6 fL (80-100); MPV 10.4 fL (7.6-11.3); RBC Red Blood Cell Count 4.63 M/uL (4.33-5.43)
[2022-11-03] MEDS: MINERAL OIL 30 ML UCUP PO SCH (08:34)
[2022-11-03] MEDS: ASPIRIN 81 MG CHEWABLE TABLET PO SCH (08:34)
[2022-11-03] MEDS: CLOPIDOGREL 75 MG TABLET PO SCH (08:34)
[2022-11-03] MEDS: CARBIDOPA/LEVODOPA 25/100 TAB PO SCH (08:34)
[2022-11-03] MEDS: CEFTRIAXONE 1,000 MG in NA CHLORIDE 0.9% 50 ML IVPB SCH (08:35)
[2022-11-03] MEDS: AMLODIPINE 10 MG TAB PO SCH (08:35)
[2022-11-03] MEDS: TAMSULOSIN 0.4 MG SR CAP PO SCH (08:35)
[2022-11-03] MEDS: HEPARIN 5000 UNIT/ML 1 ML VIAL SQ SCH (08:35)
[2022-11-03] MEDS: carvediloL 12.5 MG TAB PO SCH (08:35)
[2022-11-03] MEDS ORDERED: POTASSIUM CL SA 10 MEQ TAB PO ONE (09:00)
[2022-11-03] MEDS ORDERED: DOCUSATE NA 100 MG CAP PO SCH (09:00)
[2022-11-03 09:12] VITALS: BP 153/72; TEMP 97
[2022-11-03 10:25] VITALS: O2SAT 99
--- NOTE | 2022-11-03 16:08 | CON ---
Date of Consultation: 11/02/2022 Brief History Of Present Illness: The patient is a 67-year-old male, who presents to the hospital wi th a past medical history of hypertension, hyperlipidemia, Parkinson's disease, BPH, dementia, who pr esents with generalized abdominal pain. He was alert and oriented x1, but answers questions appropri ately, but had poor insight into his medical history at the time of my examination. He had been havi ng abdominal pain by his report for approximately a week prior to this and had decreased bowel functi on, not significant bowel movements for several days prior to this. He had multiple episodes of cons tipation, similar type before in the past related to infections and electrolyte abnormalities by his report. He was brought to the hospital for evaluation of the above-stated issues. Past Medical History: Significant for hypertension, hyperlipidemia, CKD, COPD, cocaine abuse, occlus marleni artery disease, CVA, TIA with no residual, chronic hepatitis C, chronic back pain, cervical spond ylosis, upper GI bleeding. Past Surgical History: Includes left shoulder surgery and gastrointestinal surgery of uncertain etio logy. Allergies: NO KNOWN DRUG ALLERGIES. Home Medications: Include Flomax, aspirin, Lipitor, Coreg, Plavix, donepezil, Norvasc, Sinemet, cefd inir. He is , has 8 children. 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 Mother has hypertension. Father is and also had hypertension. All brother and sister siblings had hypertension as well. He admits to smok ing history. Admits to alcohol abuse history. Denies recreational drug use at this time. Review of Systems: Ten-point review of systems unable to obtain due to the patient's poor mental status. He required fr equent redirection during examination. Physical Examination: Vital Signs: At the time of my examination were blood pressure of 129/68, pulse is 62, respiratory r ate 18, temperature 98.2, SpO2 of 98% on room air. General: At the time of my examination, he was awake and alert, but had poor insight as described ab el and required frequent redirection. HEENT: Normocephalic. His sclerae were anicteric. Mucous membranes are moist. Oropharynx clear. Neck: Supple without JVD. Chest: Expansion and excursion. Cardiovascular: Regular rate and rhythm. Pulmonary: Clear to auscultation bilaterally. Abdomen: Soft, nontender, with mild distention. No rebound. No guarding. No focal peritonitis. I t was mildly tympanic, but otherwise benign abdominal exam. Laboratory Data: Revealed a white blood cell count of 7.4, hemoglobin 11.8, hematocrit 36.4, platele t count was 316. His PT 13.2, INR 1.2. Sodium 144; potassium 4.2; chloride 114; carbon dioxide 24; BUN 14; creatinine 1.7, down from 1.9 on admission; glucose is 100. His proBNP was 401. He had imag ing performed, which included an abdomen CT, which is officially read on 11/01/2022 as bilateral jordan re right-sided and very severe left-sided hydronephrosis similar to October 23 imaging, only small thin rim of left renal cortical tissue was seen. Bilateral pigtail stents in place, new from compar pita examination. There is no reduction in the degree of hydronephrosis and stent placement, very la rge stool volume, dilating the rectum to 8 cm. The patient has overall large stool volume descending the entirety of the colon. Isodense masses and pyelonephritis are not excluded on stone protocol stefani yusuf. Assessment And Plan: This is a 67-year-old male, who comes in with multiple medical problems. 1.Continue medical management. 2.IV fluid hydration. 3.Okay to start clear liquid diet. 4.We will start laxative routine with mineral oil p.o. initially, Dulcolax suppositories and gentle tap water enemas to help assist bowel movements and serial abdominal exams. 5.Continue medical management as described above. ELIZABETH/THERESA Voice ID: [id number] Report ID: [id number]
--- NOTE | 2022-11-04 21:41 | P.DS ---
Admission Date: 11/01/22 Discharge Date: 11/03/22 Disposition: ROUTINE DISCHARGE Discharge Condition: GOOD Reason for Admission: Abdominal pain Consultations: General Surgery - Dr. Yepez Brief History of Present Illness: 67-year-old male with a past medical history significant for hypertension, HLD, Parkinson's disease, BPH, dementia who presents with complaint of generalized abdominal pain. Patient is alert and oriented x1 and confused. Patient is unable to provide accurate history. Family reported that patient has been having abdominal pain for the past 7 days with associated signs and symptoms of abdominal distention and constipation. No other signs or symptoms reported. Symptoms are aggravated or relieved by nothing. Patient was brought to the hospital for medical evaluation. Hospital Course: Problem List Constipation with Impaction HTN HLD Parkinson's disease BPH Anemia of chronic disease b/l hydronephrosis s/p stent Patient presented with abdominal discomfort, and found to be constipated with significant stool burden and impaction. General surgery was consulted. Patient was given enemas and and had 2 bowel movements. His symptoms resolved, labs were stable. He was deemed stable for discharge home. Recommend twice daily docusate and miralax daily as needed to maintain daily soft bowel movement. Renal function has continued to improve since last hospitalization.. Dr. Cruz was contacted as patient was due to see him in office for possible sepulveda removal. Recommended close follow up in office. Call office to reschedule appointment. No other changes to home medications. Vital Signs/Physical Exam: Temp Pulse Resp BP Pulse Ox 97.0 F 55 16 153/72 H 99 11/03/22 08:00 11/03/22 08:00 11/03/22 08:00 11/03/22 08:00 11/03/22 08:00 Physical Exam: Gen: NAD, AOx3 HEENT: normal conjunctiva, sclera anicteric CV: regular rate & rhythm, no edema Pulm: non-labored respirations, clear bilaterally Abd: soft, nontender, nondistended Skin: no rashes, no lesions Laboratory Data at Discharge: WBC 6.30 K/uL (4.3-10.9) 11/03/22 03:01 Hgb 12.4 g/dL (13.6-17.9) L 11/03/22 03:01 Hct 38.2 % (39.6-49.0) L 11/03/22 03:01 Plt Count 257 K/uL (152-406) 11/03/22 03:01 PT 13.2 SECONDS (9.5-12.5) H 11/01/22 12:05 INR 1.20 11/01/22 12:05 Sodium 141 mmol/L (136-145) 11/03/22 03:01 Potassium 3.9 mmol/L (3.5-5.1) 11/03/22 03:01 BUN 13 mg/dL (7-18) 11/03/22 03:01 Creatinine 1.68 mg/dL (0.70-1.30) H 11/03/22 03:01 Glucose 85 mg/dL (74-106) 11/03/22 03:01 Phosphorus 2.5 mg/dL (2.5-4.9) 11/01/22 20:57 Magnesium 2.2 mg/dL (1.6-2.4) 11/01/22 20:57 Total Bilirubin 0.7 mg/dL (0.2-1.0) 11/01/22 12:05 AST 14 U/L (15-37) L 11/01/22 12:05 ALT 15 U/L (16-61) L 11/01/22 12:05 Alkaline Phosphatase 84 U/L (45-117) 11/01/22 12:05 Lipase 205 U/L (73-393) 11/01/22 12:05 Home Medications: Tamsulosin [Flomax*] 2 cap PO DAILY 03/19/20 Aspirin 81 mg PO DAILY 12/23/20 Atorvastatin Calcium [Lipitor] 1 tab PO BEDTIME 12/23/20 carvediloL [Coreg*] 12.5 mg PO BID 12/23/20 Clopidogrel Bisulfate [Plavix*] 75 mg PO DAILY #30 tablet 09/05/21 Donepezil HCl 10 mg PO DAILY 09/05/21 Amlodipine [Norvasc*] 10 mg PO DAILY 10/24/22 Carbidopa/Levodopa 25-100 [Sinemet 25-100*] 25 - 100 mg PO TID 10/24/22 Cefdinir [Cefdinir*] 300 mg PO DAILY #7 cap 10/26/22 Physician Discharge Instructions: Patient presented with abdominal discomfort, and found to be constipated with significant stool burden and impaction. General surgery was consulted. Patient was given enemas and and had 2 bowel movements. His symptoms resolved, labs were stable. He was deemed stable for discharge home. Recommend twice daily docusate and miralax daily as needed to maintain daily soft bowel movement. Renal function has continued to improve since last hospitalization.. Dr. Cruz was contacted as patient was due to see him in office for possible sepulveda removal. Recommended close follow up in office. Call office to reschedule appointment. No other changes to home medications. Followup: Unknown,U [Primary Care Provider] - (Please call to schedule an appointment in 1-2 weeks) Time spent managing pt's care (in minutes): 45
== END 2022-11-03 12:39 | disposition home health service (06) ==
LOC: ER 11:45 → ERHOLD 16:53 → 4TH 11-02 11:10
PROVIDERS: ADMIT Hospitalist; ATTEND Hospitalist
DX: K59.00 Constipation, unspecified (principal); K56.41 Fecal impaction; R10.9 Unspecified abdominal pain; I10 Essential (primary) hypertension; G20 Parkinson's disease; N40.0 Benign prostatic hyperplasia without lower urinary tract symptoms; F02.80 Dementia in other diseases classified elsewhere, unspecified severity, without behavioral disturbance, psychotic disturbance, mood disturbance, and anxiety; E78.5 Hyperlipidemia, unspecified; D63.1 Anemia in chronic kidney disease; N18.32 Chronic kidney disease, stage 3b; N39.0 Urinary tract infection, site not specified; Z20.822 Contact with and (suspected) exposure to COVID-19
CPT/HCPCS: 93005; 87088; 85025 ×2; 87086; 80048 ×3; 36415 ×3; 83735 ×2; 82550; 84100; 85610; 82947; 80076; 81003; 85027; 84484; 83690; 83880 ×2; 76377; 74176; 71045; 96375; 96374; 99285; 87811; J1644 ×4; J2543; J7030; J2405 ×2; G0378 ×4

== ENCOUNTER 2022-11-24 20:41 | Emergency (ER) | payer OTHER ==
--- OUTSIDE RECORDS SUMMARY | 2022-11-24 20:50 | XMS REPORT | Continuity of Care Document ---
:1955 Author Organization [facility] t Address [address] [place] [address] Care Team Providers Name Role Phone Unknown, Physician Primary Care Physician Unavailable Barrie Real Attending Clinician Unavailable Javier Weinstein Rahil Attending Clinician Unavailable [id number] Attending Clinician Unavailable JAVIER WEINSTEIN Attending Clinician Unavailable Shashi Lee MD Attending Clinician LEWIS MCCARTY Attending Clinician Unavailable JAZZ ALAMO Attending Clinician Unavailable Verónica RN, [place] Attending Clinician Unavailable Lewis Mccarty MD Attending Clinician DIOR RODGERS Attending Clinician Unavailable YONAS REYES Attending Clinician Unavailable MARISELA GONZALEZ Attending Clinician Unavailable NOHEMY KHALIL Attending Clinician Unavailable Ige-[place]_J_AH Attending Clinician Unavailable Javier Weinstein Rahil Admitting Clinician Unavailable [id number] Admitting Clinician Unavailable BARRIE REAL Admitting Clinician Unavailable JAZZ ALAMO Admitting Clinician Unavailable ROBERT REYESEEN Admitting Clinician Unavailable [place]_J_AH Admitting Clinician Unavailable Payers Payer Name Policy Type Policy Number Effective Date Expiration Date S mendez HUMANA [id number] 2022 00:00:00 HUMM HUMM [id number] [employer] MEDICARE 53 [id number] 2022 Common Sp nimco 00:00:00 - [facility] HUMANA MEDICARE 53 [id number] 2020 Common Sp nimco 00:00:00 [facility] MCR [id number] [id number] [employer] (MEDICARE REPLACEMENT/ADV ANTAGE - HMO) Problems Condition Condition Condition Status Onset Resolution Last Treating Co mments Source Name Details Category Date Date Treatment Clinician Date 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 Spirit dominant dominant - [facility] side as side due late to [facility] 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, Liam ter cular unspecifie disease d hemiplegia type Dementia +6th digit Problem Com mon with eff Spirit behavioral 07/29/22*De - [facility] disturbanc mentia, St e unspecifie [facility] d, with Medical behavioral Center disturbanc e Chronic 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 ([facility] [id number] Parkinson Problem Comm on disease Spirit - CHI [facility] History of History of Problem C ommon transient transient Spir it ischemic ischemic - CHI attack attack [facility] Chronic +5th digit Problem Comm on kidney eff Spirit disease 07/29/20*Ch - CHI stage 3 ronic kidney [facility] disease, Medical stage 3 Center [id number] Tobacco Problem Commo n abuse Spirit counseling - [facility] Chronic Chronic Problem Common obstructiv obstructiv Sp nimco e e - CHI pulmonary pulmonary St disease [facility] unspecifie Medica l d Center [id number] Hyperlipid Problem Com mon emia, Spirit unspecifie - CHI d hyperlipid [facility] emia type Medical Center [id number] Prostate Problem Comm on cancer Spirit screening - [facility] [id number] Cerebrovas Problem Co mmon cular Spirit accident - [facility]I (CVA) of [facility] [id number] NPH Problem Common (normal Spirit pressure - CHI hydrocepha [facility] Chronic Other Problem Common pain chronic Spirit pain - [facility] [id number] Dysuria Problem Common Spirit [facility] Eruption Groin rash Problem Com mon of skin Spirit [facility] [id number] Bloody Problem Common drainage Spirit from penis - [facility] [id number] Urinary Problem Common hesitancy [facility] [id number] Hematuria, Problem Com mon unspecifie Spirit d type - CHI [facility] Bladder Urinary Problem Common incontinen incontinen Sp nimco ce ce, - CHI unspecifie [facility] Chronic Hypertensi Problem Comm on kidney ve CKD Spirit disease (chronic - CHI due to kidney St hypertensi disease) [facility] [id number] Agitation Problem Com mon Spirit - [facility] [id number] Ataxic Problem Common gait Spirit [facility] Chronic CKD Problem Common kidney (chronic Spirit disease kidney - CHI disease) [facility] [id number] Depression Problem Co mmon with Spirit anxiety - CHI [facility] [id number] Vascular Problem Com mon [id number] Spirit without - CHI behavioral [facility] [id number] H/O: CVA Problem Comm on (cerebrova Spirit scular - CHI accident) [facility] [id number] Encounter Problem Com mon for Spirit therapeuti - CHI c drug [facility] monitoring Medica l Center [id number] Essential Problem Comm on hypertensi Spirit on - [facility] [id number] NIKITA Problem Common (generaliz Spirit ed anxiety - CHI disorder) [facility] [id number] Kidney Problem Common filling Spirit defect - [facility] [id number] 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 - CHI , single [facility] [id number] BPH loc w Problem Com mon urin Spirit obs/LUTS - [facility] Allergies, Adverse Reactions, Alerts Allergy Allergy Status Severity Reaction(s) Onset Inactive Treating Comm ents Source Name Type Date Date Clinician NKA Allergy Active ENCCLR 05-22 12:30: 40 NKA Allergy Active ENCCLR 05-22 12:30: 40 NKA Allergy Active ENCCLR 05-22 12:30: 40 No Known DA Active [facility]11 [place] [facility] 00:[facility]: d 00 [facility] No Known DA Active [facility] 2-11 [place] [facility] 00:[facility]: d 00 [facility] Social History Social Habit Start Date Stop Date Quantity Comments Source History of Tobacco Current Smoker Co mmon Spirit - Use [facility] Sex Assigned At Common Sp nimco - [facility] Exposure to 2022-05-26 2022-06-05 Not sure [facility] SARS-CoV-2 (event) 00:00:00 13:46:00 Smoking Status Start Date Stop Date Source Ex-smoker [facility] Current Smoker 2022-11-17 00:00:00 [facility] t [facility] Medications Ordered Filled Start Stop Current Ordering Indication Dosage Frequency Signature Comments Components Source Medication Medication Date Date Medication? Clinician (SIG) Name Name carbidopa-l 2022- No [id number] 1{tbl} [id number] Take 1 UT evodopa 06-05 [id number] tablet by Health (Sinemet) 00:00: 04:59 3D mouth in 25-100 MG 00 :00 the tablet morning and 1 tablet at noon and 1 tablet in the evening. levETIRAcet Yes [id number] 500mg Q.5D Take 1 UT am (Keppra) 09 tablet Health 500 MG 00:00: (500 mg tablet 00 total) by mouth in the morning and 1 tablet (500 mg total) in the evening. memantine Yes [id number] 10mg Q.5D Take 1 UT (Namenda) -09 tablet (10 Heal th 10 MG 00:00: mg total) tablet 00 by mouth in the morning and 1 tablet (10 mg total) in the evening. levETIRAcet Yes [id number] 500mg Q.5D Take 1 UT am (Keppra) 09 tablet Health 500 MG 00:00: (500 mg tablet 00 total) by mouth in the morning and 1 tablet (500 mg total) in the evening. memantine Yes [id number] 10mg Q.5D Take 1 UT (Namenda) 7- tablet ( th 10 MG 00:00: mg total) tablet 00 by mouth in the morning and 1 tablet (10 mg total) in the evening. levETIRAcet 2021-0 Yes [id number] 500mg Q.5D Take 1 UT am (Keppra) 7- tablet Health 500 MG 00:00: (500 mg tablet 00 total) by mouth in the morning and 1 tablet (500 mg total) in the evening. memantine 2021-0 Yes [id number] 10mg Q.5D Take 1 UT (Namenda) 7 tablet ( 10 MG 00:00: mg total) tablet 00 [...] MG 00:00: 00:00 tablet 00 :00 carvedilol 2-0 Yes UT (Coreg) 4-13 Health 3.125 MG 00:00: tablet 00 clopidogrel 2021-0 Yes UT (Plavix) 75 4-13 Health MG tablet 00:00: 00 carvedilol 2-0 Yes UT (Coreg) 4-13 Health 3.125 MG 00:00: tablet 00 clopidogrel 2021-0 Yes UT (Plavix) 75 4-13 Health MG tablet 00:00: 00 carvedilol 2022-0 Yes UT (Coreg) 4-13 Health 3.125 MG [...] tablet 00 memantine 2021-0 Yes UT (Namenda) 1- Health 10 MG 00:00: tablet 00 memantine 2021-0 2- No UT (Namenda) - 07-09 Health 10 MG 00:00: 00:00 tablet 00 :00 carvedilol 2020-1 Yes UT (Coreg) 1-22 Health 12.5 MG 00:00: tablet 00 carvedilol 2020- Yes UT (Coreg) 1-22 Health 12.5 MG 00:00: tablet 00 carvedilol 2020-10 Yes UT (Coreg) 1-22 Health 12.5 MG 00:00: tablet 00 carvedilol 2020-10 Yes UT (Coreg) 1-22 Health 12.5 MG 00:00: tablet 00 carvedilol 2020-10 Yes UT (Coreg) -22 Health 12.5 MG 00:00: tablet 00 sulfamethox [...] MG tablet 06-27 Health 00:00: 00 lisinopril 0 Yes UT 5 MG tablet 06-27 Health 00:00: 00 aspirin 0 Yes 81mg 81 mg. UT (ASPIR) 81 3-29 Health MG EC 00:00: tablet 00 budesonide 0 Yes UT (Pulmicort) 329 Health 0.5 MG/2ML 00:00: nebulizer 00 solution [...] MG HCl 0.4 MG HCl 0.4 MG Clopidogrel Clopidogrel No Clopidogre Bisulfate Bisulfate l 75 mg 75 mg Bisulfate 75 mg Flomax 0.4 Flomax 0.4 No 2{capsu QD Flomax 0.4 MG MG les} MG Aricept 10 Aricept 10 No 1{table QD Aricept 10 MG MG t_at_be MG dtime} Atorvastati Atorvastati No 1{table QD Atorvastat n Calcium n Calcium t} in Calcium 40 MG 40 MG 40 MG Albuterol Albuterol No 3{ml_as QID Albuterol Sulfate Sulfate _needed Sulfate (2.5 (2.5 } (2.5 MG/3ML) MG/3ML) MG/3ML) 0.083% 0.083% 0.083% Ventolin Ventolin No 2{puffs QID Ventolin HFA 108 (90 HFA 108 (90 _as_nee HFA 108 Base) Base) ded} (90 Base) MCG/ACT MCG/ACT MCG/ACT Carbidopa-L Carbidopa-L No 1{table TID Carbidopa- evodopa evodopa t} Levodopa 10-100 MG 10-100 MG 10-100 MG Tamsulosin Tamsulosin No Tamsulosin HCl 0.4 MG HCl 0.4 MG HCl 0.4 MG Clopidogrel Clopidogrel No 1{table QD Clopidogre Bisulfate Bisulfate t} l 75 MG 75 MG Bisulfate 75 MG Aspirin 81 Aspirin 81 No 1{table QD Aspirin 81 81 MG 81 MG t} 81 MG Coreg 12.5 Coreg 12.5 No 1{table QD Coreg 12.5 MG MG t_with_ MG food} Atorvastati Atorvastati No Atorvastat n Calcium n [...] No QD Coreg MG MG 3.125 MG Flomax 0.4 Flomax 0.4 No 2{capsu QD Flomax 0.4 MG MG les} MG Coreg 3.125 Coreg 3.125 No QD Coreg MG MG 3.125 MG Atorvastati Atorvastati No Atorvastat n Calcium n Calcium in Calcium 40 MG 40 MG 40 MG Clopidogrel Clopidogrel No Clopidogre Bisulfate Bisulfate l 75 mg 75 mg Bisulfate 75 mg Ventolin Ventolin No 2{puffs QID Ventolin HFA 108 (90 HFA 108 (90 _as_nee HFA 108 Base) Base) ded} (90 Base) MCG/ACT MCG/ACT MCG/ACT Carbidopa-L Carbidopa-L No 1{table TID Carbidopa- evodopa evodopa t} Levodopa 10-100 MG 10-100 MG 10-100 MG Albuterol Albuterol No 3{ml_as QID Albuterol Sulfate Sulfate _needed Sulfate (2.5 (2.5 } (2.5 MG/3ML) MG/3ML) MG/3ML) 0.083% 0.083% 0.083% Fluticasone Fluticasone No 1{puff} QD Fluticason Furoate-Silver Furoate-Silver e anterol anterol Furoate-Vi 100-25 100-25 lanterol MCG/INH MCG/INH 100-25 MCG/INH Clopidogrel Clopidogrel No 1{table QD Clopidogre Bisulfate Bisulfate t} l 75 MG 75 MG Bisulfate 75 MG Aricept 10 Aricept 10 No 1{table QD Aricept 10 MG MG t_at_be MG dtime} Atorvastati Atorvastati No 1{table QD Atorvastat n Calcium n Calcium t} in Calcium 40 MG 40 MG 40 MG Folic Acid Folic Acid No 1{table QD Folic Acid 1 MG 1 MG t} 1 MG amLODIPine amLODIPine No 1{table QD amLODIPine Besylate 10 Besylate 10 t} Besylate MG MG 10 MG Tamsulosin Tamsulosin No Tamsulosin HCl 0.4 MG HCl 0.4 MG HCl 0.4 MG Albuterol Albuterol No Albuterol Sulfate HFA Sulfate HFA Sulfate 108 (90 108 (90 HFA 108 Base) Base) (90 Base) MCG/ACT MCG/ACT MCG/ACT Aspirin 81 Aspirin 81 No 1{table QD Aspirin 81 81 MG 81 MG t} 81 MG Coreg 12.5 Coreg 12.5 No 1{table QD Coreg 12.5 MG MG t_with_ MG food} Albuterol Albuterol No 3{ml_as QID Albuterol Sulfate Sulfate _needed Sulfate (2.5 (2.5 } (2.5 MG/3ML) MG/3ML) MG/3ML) 0.083% 0.083% 0.083% Aspirin 81 Aspirin 81 No 1{table QD Aspirin 81 81 MG 81 MG t} 81 MG Coreg 3.125 Coreg 3.125 No QD Coreg MG MG 3.125 MG Fluticasone Fluticasone No 1{puff} QD Fluticason Furoate-Silver Furoate-Silver e anterol anterol Furoate-Vi 100-25 100-25 lanterol MCG/INH MCG/INH 100-25 MCG/INH Carbidopa-L Carbidopa-L No 1{table TID Carbidopa- evodopa evodopa t} Levodopa 25-100 MG 25-100 MG 25-100 MG Folic Acid Folic Acid No 1{table QD Folic Acid 1 MG 1 MG t} 1 MG amLODIPine amLODIPine No 1{table QD amLODIPine Besylate 10 Besylate 10 t} Besylate MG MG 10 MG Flomax 0.4 Flomax 0.4 No 2{capsu QD Flomax 0.4 MG MG les} MG Clopidogrel Clopidogrel No 1{table QD Clopidogre Bisulfate Bisulfate t} l 75 MG 75 MG Bisulfate 75 MG Coreg 12.5 Coreg 12.5 No 1{table QD Coreg 12.5 MG MG t_with_ MG food} Atorvastati Atorvastati No 1{table QD Atorvastat n Calcium n Calcium t} in Calcium 40 MG 40 MG 40 MG Aricept 10 Aricept 10 No 1{table QD Aricept 10 MG MG t_at_be MG dtime} Ventolin Ventolin No 2{puffs QID Ventolin HFA 108 (90 HFA 108 (90 _as_nee HFA 108 Base) Base) ded} (90 Base) MCG/ACT MCG/ACT MCG/ACT Carbidopa-L Carbidopa-L No 1{table TID Carbidopa- evodopa evodopa t} Levodopa 25-100 MG 25-100 MG 25-100 MG Coreg 3.125 Coreg 3.125 No QD Coreg MG MG 3.125 MG Coreg 12.5 Coreg 12.5 No 1{table QD Coreg 12.5 MG MG t_with_ MG food} Atorvastati Atorvastati No 1{table QD Atorvastat n Calcium n Calcium t} in Calcium 40 MG 40 MG 40 MG Fluticasone Fluticasone No 1{puff} QD Fluticason Furoate-Silver Furoate-Silver e anterol anterol Furoate-Vi 100-25 100-25 lanterol MCG/INH MCG/INH 100-25 MCG/INH Flomax 0.4 Flomax 0.4 No 2{capsu QD Flomax 0.4 MG MG les} MG Aricept 10 Aricept 10 No 1{table QD Aricept 10 MG MG t_at_be MG dtime} Folic Acid Folic Acid No 1{table QD Folic Acid 1 MG 1 MG t} 1 MG Ventolin Ventolin No 2{puffs QID Ventolin HFA 108 (90 HFA 108 (90 _as_nee HFA 108 Base) Base) ded} (90 Base) MCG/ACT MCG/ACT MCG/ACT Albuterol Albuterol No 3{ml_as QID Albuterol Sulfate Sulfate _needed Sulfate (2.5 (2.5 } (2.5 MG/3ML) MG/3ML) MG/3ML) 0.083% 0.083% 0.083% Clopidogrel Clopidogrel No 1{table QD Clopidogre Bisulfate Bisulfate t} l 75 MG 75 MG Bisulfate 75 MG amLODIPine amLODIPine No 1{table QD amLODIPine Besylate 10 Besylate 10 t} Besylate MG MG 10 MG Aspirin 81 Aspirin 81 No 1{table QD Aspirin 81 81 MG 81 MG t} 81 MG Coreg 3.125 Coreg 3.125 No QD Coreg MG MG 3.125 MG Carbidopa-L Carbidopa-L No 1{table TID Carbidopa- evodopa evodopa t} Levodopa 25-100 MG 25-100 MG 25-100 MG Coreg 3.125 Coreg 3.125 No QD Coreg MG MG 3.125 MG Coreg 12.5 Coreg 12.5 No 1{table QD Coreg 12.5 MG MG t_with_ MG food} Atorvastati Atorvastati No 1{table QD Atorvastat n Calcium n Calcium t} in Calcium 40 MG 40 MG 40 MG Fluticasone Fluticasone No 1{puff} QD Fluticason Furoate-Silver Furoate-Silver e anterol anterol Furoate-Vi 100-25 100-25 lanterol MCG/INH MCG/INH 100-25 MCG/INH Aspirin 81 Aspirin 81 No 1{table QD Aspirin 81 81 MG 81 MG t} 81 MG Flomax 0.4 Flomax 0.4 No 2{capsu QD Flomax 0.4 MG MG les} MG Aricept 10 Aricept 10 No 1{table QD Aricept 10 MG MG t_at_be MG dtime} Folic Acid Folic Acid No 1{table QD Folic Acid 1 MG 1 MG t} 1 MG Ventolin Ventolin No 2{puffs QID Ventolin HFA 108 (90 HFA 108 (90 _as_nee HFA 108 Base) Base) ded} (90 Base) MCG/ACT MCG/ACT MCG/ACT Albuterol Albuterol No 3{ml_as QID Albuterol Sulfate Sulfate _needed Sulfate (2.5 (2.5 } (2.5 MG/3ML) MG/3ML) MG/3ML) 0.083% 0.083% 0.083% Clopidogrel Clopidogrel No 1{table QD Clopidogre Bisulfate Bisulfate t} l 75 MG 75 MG Bisulfate 75 MG amLODIPine amLODIPine No 1{table QD amLODIPine Besylate 10 Besylate 10 t} Besylate MG MG 10 MG Aspirin 81 Aspirin 81 No 1{table [...] Date Status Commen ts Source Name Name Angy COVID-19 Angy COVID-19 2021-09-28 Completed [facility] Vaccine (Low Dose Vaccine (Low Dose 14:33:00 - [facility]oster[facility] Booster) [facility] COVID[address] [facility]-09-28 Completed [facility] Vaccine (Low Dose Vaccine (Low Dose 14:33:00 - [facility] Booster) Booster) [facility] [address] [facility] 2021-09-28 Completed [facility] Vaccine (Low Dose Vaccine (Low Dose 14:33:00 - [facility] Booster) Booster) [facility] [address] [facility] 2021-09-28 Completed [facility] Vaccine (Low Dose Vaccine (Low Dose 14:33:00 - [facility] Booster) Booster) [facility] [address] [facility] 2021-09-28 Completed [facility] Vaccine (Low Dose Vaccine (Low Dose 14:33:00 - [facility] Booster) Booster) [facility] [address] [facility] 2021-09-28 Completed [facility] Vaccine (Low Dose Vaccine (Low Dose 14:33:00 - [facility] Booster) Booster) [facility] [address] [facility] 2021-09-28 Completed [facility] Vaccine (Low Dose Vaccine (Low Dose 14:33:00 - [facility] Booster) Booster) [facility] [address] [facility] 2021-09-28 Completed [facility] Vaccine (Low Dose Vaccine (Low Dose 14:33:00 - [facility] Booster) Booster) [facility] [address] [facility] 2021-09-28 Completed [facility] Vaccine (Low Dose Vaccine (Low Dose 14:33:00 - [facility] Booster) Booster) [facility] [address] [facility] 2021-09-28 Completed [facility] Vaccine (Low Dose Vaccine (Low Dose 14:33:00 - [facility] Booster) Booster) [facility] [address] [facility] 2021-09-28 Completed [facility] Vaccine (Low Dose Vaccine (Low Dose 14:33:00 - [facility] Booster) Booster) [facility] COVID-[address] [place], [place] [address] 2021-09-28 Completed [facility] Vaccine (Low Dose Vaccine (Low Dose 14:33:00 - [facility] [address] [facility]28 Completed [facility] Vaccine (Low Dose Vaccine (Low Dose 14:33:00 - [facility] Booster) Booster) [address] [facility] 2021-09-28 Completed [facility] Vaccine (Low Dose Vaccine (Low Dose 14:33:00 - [facility] Booster) Booster) [address] [facility] 2021-09-28 Completed [facility] Vaccine (Low Dose Vaccine (Low Dose 14:33:00 - [facility] Booster) Booster) [address] [facility] 2021-09-28 Completed [facility] Vaccine (Low Dose Vaccine (Low Dose 14:33:00 - [facility] Booster) Booster) [place] [address] 2021-09-28 Completed [facility] Vaccine (Low Dose Vaccine (Low Dose 14:33:00 - [facility] [facility] 2021-09-28 Completed [facility] Vaccine (Low Dose Vaccine (Low Dose 14:33:00 - [facility] Booster) Booster) [address] [facility] 2021-09-28 Completed [facility] Vaccine (Low Dose Vaccine (Low Dose 14:33:00 - [facility] Booster) Booster) [facility] FLUZONE HIGH DOSE FLUZONE HIGH DOSE 2021-08-28 Completed [facility] OVER 65 OVER 65 15:01:00 [facility] FLUZONE HIGH DOSE FLUZONE HIGH DOSE 2021-08-28 Completed [facility] OVER 65 OVER 65 15:01:00 [facility] FLUZONE HIGH DOSE FLUZONE HIGH DOSE 2021-08-28 Completed [facility] OVER 65 OVER 65 15:01:00 [facility] FLUZONE HIGH DOSE FLUZONE HIGH DOSE 2021-08-28 Completed [facility] OVER 65 OVER 65 15:01:00 - [facility] FLUZONE HIGH DOSE FLUZONE HIGH DOSE 2021-08-28 Completed [facility] OVER 65 OVER 65 15:01:00 - [facility] FLUZONE HIGH DOSE FLUZONE HIGH DOSE 2021-08-28 Completed [facility] OVER 65 OVER 65 15:01:00 - [facility] FLUZONE HIGH DOSE FLUZONE HIGH DOSE 2021-08-28 Completed [facility] OVER 65 OVER 65 15:01:00 - [facility] FLUZONE HIGH DOSE FLUZONE HIGH DOSE 2021-08-28 Completed [facility] OVER 65 OVER 65 15:01:00 - [facility] FLUZONE HIGH DOSE FLUZONE HIGH DOSE 2021-08-28 Completed [facility] OVER 65 OVER 65 15:01:00 - [facility] FLUZONE HIGH DOSE FLUZONE HIGH DOSE 2021-08-28 Completed [facility] OVER 65 OVER 65 15:01:00 - [facility] FLUZONE HIGH DOSE FLUZONE HIGH DOSE 2021-08-28 Completed [facility] OVER 65 OVER 65 15:01:00 - [facility] FLUZONE HIGH DOSE FLUZONE HIGH DOSE 2021-08-28 Completed [facility] OVER 65 OVER 65 15:01:00 - [facility] FLUZONE HIGH DOSE FLUZONE HIGH DOSE 2021-08-28 Completed [facility] OVER 65 OVER 65 15:01:00 - [facility] FLUZONE HIGH DOSE FLUZONE HIGH DOSE 2021-08-28 Completed [facility] OVER 65 OVER 65 15:01:00 - [facility] FLUZONE HIGH DOSE FLUZONE HIGH DOSE 2021-08-28 Completed [facility] OVER 65 OVER 65 15:01:00 - [facility] FLUZONE HIGH DOSE FLUZONE HIGH DOSE 2021-08-28 Completed [facility] OVER 65 OVER 65 15:01:00 - [facility] FLUZONE HIGH DOSE FLUZONE HIGH DOSE 2021-08-28 Completed [facility] OVER 65 OVER 65 15:01:00 - [facility] FLUZONE HIGH DOSE FLUZONE HIGH DOSE 2021-08-28 Completed [facility] OVER 65 OVER 65 15:01:00 - [facility] FLUZONE HIGH DOSE FLUZONE HIGH DOSE 2021-08-28 Completed [facility] OVER 65 OVER 65 15:01:00 - [facility] Moderna COVID-19 Moderna COVID-19 2021-01-04 Completed [facility] Vaccine Vaccine 14:35:00 - [facility] Moderna COVID-19 Moderna COVID-19 2021-01-04 Completed [facility] Vaccine Vaccine 14:35:00 - [facility] Moderna COVID-19 Moderna COVID-19 2021-01-04 Completed [facility] Vaccine Vaccine 14:35:00 - [facility] Moderna COVID-19 Moderna COVID-19 2021-01-04 Completed [facility] Vaccine Vaccine 14:35:00 - [facility] Moderna COVID-19 Moderna COVID-19 2021-01-04 Completed [facility] Vaccine Vaccine 14:35:00 - [facility] Moderna COVID-19 Moderna COVID-19 2021-01-04 Completed [facility] Vaccine Vaccine 14:35:00 - [facility] Moderna COVID-19 Moderna COVID-19 2021-01-04 Completed [facility] Vaccine Vaccine 14:35:00 - [facility] Moderna COVID-19 Moderna COVID-19 2021-01-04 Completed [facility] Vaccine Vaccine 14:35:00 - [facility] Moderna COVID-19 Moderna COVID-19 2021-01-04 Completed [facility] Vaccine Vaccine 14:35:00 - [facility] Moderna COVID-19 Moderna COVID-19 2021-01-04 Completed [facility] Vaccine Vaccine 14:35:00 [facility] Moderna COVID-19 Moderna COVID-19 2021-01-04 Completed [facility] Vaccine Vaccine 14:35:00 [facility] Moderna COVID-19 Moderna COVID-19 2021-01-04 Completed [facility] Vaccine Vaccine 14:35:00 - [facility] Moderna COVID-19 Moderna COVID-19 2021-01-04 Completed [facility] Vaccine Vaccine 14:35:00 - [facility] Moderna COVID-19 Moderna COVID-19 2021-01-04 Completed [facility] Vaccine Vaccine 14:35:00 - [facility] Moderna COVID-19 Moderna COVID-19 2021-01-04 Completed [facility] Vaccine Vaccine 14:35:00 - [facility] Moderna COVID-19 Moderna COVID-19 2021-01-04 Completed [facility] Vaccine Vaccine 14:35:00 - [facility] Moderna COVID-19 Moderna COVID-19 2021-01-04 Completed [facility] Vaccine Vaccine 14:35:00 - [facility] Moderna COVID-19 Moderna COVID-19 2021-01-04 Completed [facility] Vaccine Vaccine 14:35:00 - [facility] Moderna COVID-19 Moderna COVID-19 2021-01-04 Completed [facility] Vaccine Vaccine 14:35:00 - [facility] Moderna COVID-19 Moderna COVID-19 2020-12-03 Completed [facility] Vaccine Vaccine 14:34:00 - [facility] Moderna COVID-19 Moderna COVID-19 2020-12-03 Completed [facility] Vaccine Vaccine 14:34:00 - [facility] Moderna COVID-19 Moderna COVID-19 2020-12-03 Completed [facility] Vaccine Vaccine 14:34:00 - [facility] Moderna COVID-19 Moderna COVID-19 2020-12-03 Completed [facility] Vaccine Vaccine 14:34:00 - [facility] Moderna COVID-19 Moderna COVID-19 2020-12-03 Completed [facility] Vaccine Vaccine 14:34:00 - [facility] Moderna COVID-19 Moderna COVID-19 2020-12-03 Completed [facility] Vaccine Vaccine 14:34:00 - [facility] Moderna COVID-19 Moderna COVID-19 2020-12-03 Completed [facility] Vaccine Vaccine 14:34:00 - [facility] Moderna COVID-19 Moderna COVID-19 2020-12-03 Completed [facility] Vaccine Vaccine 14:34:00 - [facility] Moderna COVID-19 Moderna COVID-19 2020-12-03 Completed [facility] Vaccine Vaccine 14:34:00 - [facility] Moderna COVID-19 Moderna COVID-19 2020-12-03 Completed [facility] Vaccine Vaccine 14:34:00 - [facility] Moderna COVID-19 Moderna COVID-19 2020-12-03 Completed [facility] Vaccine Vaccine 14:34:00 - [facility] Moderna COVID-19 Moderna COVID-19 2020-12-03 Completed [facility] Vaccine Vaccine 14:34:00 - [facility] Moderna COVID-19 Moderna COVID-19 2020-12-03 Completed [facility] Vaccine Vaccine 14:34:00 - [facility] Moderna COVID-19 Moderna COVID-19 2020-12-03 Completed [facility] Vaccine Vaccine 14:34:00 - [facility] Moderna COVID-19 Moderna COVID-19 2020-12-03 Completed [facility] Vaccine Vaccine 14:34:00 - [facility] Moderna COVID-19 Moderna COVID-19 2020-12-03 Completed [facility] Vaccine Vaccine 14:34:00 [facility] Moderna COVID-19 Moderna COVID-19 2020-12-03 Completed [facility] Vaccine Vaccine 14:34:00 [facility] Moderna COVID-19 Moderna COVID-19 2020-12-03 Completed [facility] Vaccine Vaccine 14:34:00 [facility] Moderna COVID-19 Moderna COVID-19 2020-12-03 Completed [facility] Vaccine Vaccine 14:34:00 [facility] FLUZONE HIGH DOSE FLUZONE HIGH DOSE 2020-07-15 Completed [facility] OVER 65 OVER 65 10:07:00 [facility] FLUZONE HIGH DOSE FLUZONE HIGH DOSE 2020-07-15 Completed [facility] OVER 65 OVER 65 10:07:00 [facility] FLUZONE HIGH DOSE FLUZONE HIGH DOSE 2020-07-15 Completed [facility] OVER 65 OVER 65 10:07:00 - [facility] FLUZONE HIGH DOSE FLUZONE HIGH DOSE 2020-07-15 Completed [facility] OVER 65 OVER 65 10:07:00 - [facility] FLUZONE HIGH DOSE FLUZONE HIGH DOSE 2020-07-15 Completed [facility] OVER 65 OVER 65 10:07:00 - [facility] FLUZONE HIGH DOSE FLUZONE HIGH DOSE 2020-07-15 Completed [facility] OVER 65 OVER 65 10:07:00 - [facility] FLUZONE HIGH DOSE FLUZONE HIGH DOSE 2020-07-15 Completed [facility] OVER 65 OVER 65 10:07:00 - [facility] FLUZONE HIGH DOSE FLUZONE HIGH DOSE 2020-07-15 Completed [facility] OVER 65 OVER 65 10:07:00 - [facility] FLUZONE HIGH DOSE FLUZONE HIGH DOSE 2020-07-15 Completed [facility] OVER 65 OVER 65 10:07:00 - [facility] FLUZONE HIGH DOSE FLUZONE HIGH DOSE 2020-07-15 Completed [facility] OVER 65 OVER 65 10:07:00 - [facility] FLUZONE HIGH DOSE FLUZONE HIGH DOSE 2020-07-15 Completed [facility] OVER 65 OVER 65 10:07:00 - [facility] FLUZONE HIGH DOSE FLUZONE HIGH DOSE 2020-07-15 Completed [facility] OVER 65 OVER 65 10:07:00 - [facility] FLUZONE HIGH DOSE FLUZONE HIGH DOSE 2020-07-15 Completed [facility] OVER 65 OVER 65 10:07:00 - [facility] FLUZONE HIGH DOSE FLUZONE HIGH DOSE 2020-07-15 Completed [facility] OVER 65 OVER 65 10:07:00 - [facility] FLUZONE HIGH DOSE FLUZONE HIGH DOSE 2020-07-15 Completed [facility] OVER 65 OVER 65 10:07:00 - [facility] FLUZONE HIGH DOSE FLUZONE HIGH DOSE 2020-07-15 Completed [facility] OVER 65 OVER 65 10:07:00 - [facility] FLUZONE HIGH DOSE FLUZONE HIGH DOSE 2020-07-15 Completed [facility] OVER 65 OVER 65 10:07:00 - [facility] FLUZONE HIGH DOSE FLUZONE HIGH DOSE 2020-07-15 Completed [facility] OVER 65 OVER 65 10:07:00 - [facility] FLUZONE HIGH DOSE FLUZONE HIGH DOSE 2020-07-15 Completed [facility] OVER 65 OVER 65 10:07:00 - [facility] FLUZONE HIGH DOSE FLUZONE HIGH DOSE 2019-08-13 Completed [facility] OVER 65 OVER 65 14:41:00 - [facility] FLUZONE HIGH DOSE FLUZONE HIGH DOSE 2019-08-13 Completed [facility] OVER 65 OVER 65 14:41:00 - [facility] FLUZONE HIGH DOSE FLUZONE HIGH DOSE 2019-08-13 Completed [facility] OVER 65 OVER 65 14:41:00 - [facility] FLUZONE HIGH DOSE FLUZONE HIGH DOSE 2019-08-13 Completed [facility] OVER 65 OVER 65 14:41:00 - [facility] FLUZONE HIGH DOSE FLUZONE HIGH DOSE 2019-08-13 Completed [facility] OVER 65 OVER 65 14:41:00 - [facility] FLUZONE HIGH DOSE FLUZONE HIGH DOSE 2019-08-13 Completed [facility] OVER 65 OVER 65 14:41:00 - [facility] FLUZONE HIGH DOSE FLUZONE HIGH DOSE 2019-08-13 Completed [facility] OVER 65 OVER 65 14:41:00 - [facility] FLUZONE HIGH DOSE FLUZONE HIGH DOSE 2019-08-13 Completed [facility] OVER 65 OVER 65 14:41:00 - [facility] FLUZONE HIGH DOSE FLUZONE HIGH DOSE 2019-08-13 Completed [facility] OVER 65 OVER 65 14:41:00 - [facility] FLUZONE HIGH DOSE FLUZONE HIGH DOSE 2019-08-13 Completed [facility] OVER 65 OVER 65 14:41:00 - [facility] FLUZONE HIGH DOSE FLUZONE HIGH DOSE 2019-08-13 Completed [facility] OVER 65 OVER 65 14:41:00 - [facility] FLUZONE HIGH DOSE FLUZONE HIGH DOSE 2019-08-13 Completed [facility] OVER 65 OVER 65 14:41:00 - [facility] FLUZONE HIGH DOSE FLUZONE HIGH DOSE 2019-08-13 Completed [facility] OVER 65 OVER 65 14:41:00 - [facility] FLUZONE HIGH DOSE FLUZONE HIGH DOSE 2019-08-13 Completed [facility] OVER 65 OVER 65 14:41:00 - [facility] FLUZONE HIGH DOSE FLUZONE HIGH DOSE 2019-08-13 Completed [facility] OVER 65 OVER 65 14:41:00 - [facility] FLUZONE HIGH DOSE FLUZONE HIGH DOSE 2019-08-13 Completed [facility] OVER 65 OVER 65 14:41:00 - [facility] FLUZONE HIGH DOSE FLUZONE HIGH DOSE 2019-08-13 Completed [facility] OVER 65 OVER 65 14:41:00 - [facility] FLUZONE HIGH DOSE FLUZONE HIGH DOSE 2019-08-13 Completed [facility] OVER 65 OVER 65 14:41:00 - [facility] FLUZONE HIGH DOSE FLUZONE HIGH DOSE 2019-08-13 Completed [facility] OVER 65 OVER 65 14:41:00 - [facility] FLUZONE HIGH DOSE FLUZONE HIGH DOSE 2018-08-15 Completed [facility] OVER 65 OVER 65 11:52:00 - [facility] FLUZONE HIGH DOSE FLUZONE HIGH DOSE 2018-08-15 Completed [facility] OVER 65 OVER 65 11:52:00 - [facility] FLUZONE HIGH DOSE FLUZONE HIGH DOSE 2018-08-15 Completed [facility] OVER 65 OVER 65 11:52:00 - [facility] FLUZONE HIGH DOSE FLUZONE HIGH DOSE 2018-08-15 Completed [facility] OVER 65 OVER 65 11:52:00 - [facility] FLUZONE HIGH DOSE FLUZONE HIGH DOSE 2018-08-15 Completed [facility] OVER 65 OVER 65 11:52:00 - [facility] FLUZONE HIGH DOSE FLUZONE HIGH DOSE 2018-08-15 Completed [facility] OVER 65 OVER 65 11:52:00 - [facility] FLUZONE HIGH DOSE FLUZONE HIGH DOSE 2018-08-15 Completed [facility] OVER 65 OVER 65 11:52:00 [facility] FLUZONE HIGH DOSE FLUZONE HIGH DOSE 2018-08-15 Completed [facility] OVER 65 OVER 65 11:52:00 - [facility] FLUZONE HIGH DOSE FLUZONE HIGH DOSE 2018-08-15 Completed [facility] OVER 65 OVER 65 11:52:00 - [facility] FLUZONE HIGH DOSE FLUZONE HIGH DOSE 2018-08-15 Completed [facility] OVER 65 OVER 65 11:52:00 - [facility] FLUZONE HIGH DOSE FLUZONE HIGH DOSE 2018-08-15 Completed [facility] OVER 65 OVER 65 11:52:00 - [facility] FLUZONE HIGH DOSE FLUZONE HIGH DOSE 2018-08-15 Completed [facility] OVER 65 OVER 65 11:52:00 - [facility] FLUZONE HIGH DOSE FLUZONE HIGH DOSE 2018-08-15 Completed [facility] OVER 65 OVER 65 11:52:00 - [facility] FLUZONE HIGH DOSE FLUZONE HIGH DOSE 2018-08-15 Completed [facility] OVER 65 OVER 65 11:52:00 - [facility] FLUZONE HIGH DOSE FLUZONE HIGH DOSE 2018-08-15 Completed [facility] OVER 65 OVER 65 11:52:00 - [facility] FLUZONE HIGH DOSE FLUZONE HIGH DOSE 2018-08-15 Completed [facility] OVER 65 OVER 65 11:52:00 - [facility] FLUZONE HIGH DOSE FLUZONE HIGH DOSE 2018-08-15 Completed [facility] OVER 65 OVER 65 11:52:00 - [facility] FLUZONE HIGH DOSE FLUZONE HIGH DOSE 2018-08-15 Completed [facility] OVER 65 OVER 65 11:52:00 - [facility] FLUZONE HIGH DOSE FLUZONE HIGH DOSE 2018-08-15 Completed [facility] OVER 65 OVER 65 11:52:00 - [facility] Vital Signs Vital Name Observation Time Observation Value Comments Source height 2022-11-17 10:45:00 71 [in_i] [facility] weight 2022-11-17 10:45:00 140 [lb_av] [facility] temperature 2022-11-17 10:45:00 98.0 [degF] [facility] bmi 2022-11-17 10:45:00 19.52 kg/m2 [facility] oximetry 2022-11-17 10:45:00 98 % [facility] respiratory rate 2022-11-17 10:45:00 18 /min [facility] - [facility] blood pressure 2022-11-17 10:45:00 87 mm[Hg] [facility] - systolic [facility] blood pressure 2022-11-17 10:45:00 52 mm[Hg] [facility] - diastolic [facility] height 2022-10-18 08:00:00 71 [in_i] [facility] weight 2022-10-18 08:00:00 152 [lb_av] [facility] temperature 2022-10-18 08:00:00 97.4 [degF] [facility] bmi 2022-10-18 08:00:00 21.2 kg/m2 [facility] blood pressure 2022-10-18 08:00:00 125 mm[Hg] [facility] - systolic [facility] blood pressure 2022-10-18 08:00:00 70 mm[Hg] [facility] - diastolic [facility] height 2022-07-05 16:00:00 71 [in_i] [facility] weight 2022-07-05 16:00:00 150 [lb_av] [facility] temperature 2022-07-05 16:00:00 98 [degF] [facility] bmi 2022-07-05 16:00:00 20.92 kg/m2 [facility] blood pressure 2022-07-05 16:00:00 119 mm[Hg] [facility] - systolic [facility] blood pressure 2022-07-05 16:00:00 75 mm[Hg] [facility] - diastolic [facility] height 2022-07-05 15:30:00 71 [in_i] [facility] weight 2022-07-05 15:30:00 150 [lb_av] [facility] temperature 2022-07-05 15:30:00 98 [degF] [facility] bmi 2022-07-05 15:30:00 20.92 kg/m2 [facility] blood pressure 2022-07-05 15:30:00 119 mm[Hg] [facility] - systolic [facility] blood pressure 2022-07-05 15:30:00 75 mm[Hg] [facility] - diastolic [facility] height 2022-05-31 16:20:00 71 [in_i] [facility] weight 2022-05-31 16:20:00 150.0 [lb_av] [facility] temperature 2022-05-31 16:20:00 98.2 [degF] [facility] bmi 2022-05-31 16:20:00 20.92 kg/m2 [facility] oximetry 2022-05-31 16:20:00 97 % [facility] respiratory rate 2022-05-31 16:20:00 18 /min Comm on [facility] blood pressure 2022-05-31 16:20:00 122 mm[Hg] [facility] - systolic [facility] blood pressure 2022-05-31 16:20:00 58 mm[Hg] [facility] - diastolic [facility] Systolic blood 2022-04-11 18:12:00 153 mm[Hg] [facility] Diastolic blood 2022-04-11 18:12:00 69 mm[Hg] [facility] Heart rate 2022-04-11 18:12:00 71 /min [facility] 2022-03-22 13:00:00 71 [in_i] [facility] weight 2022-03-22 13:00:00 150 [lb_av] [facility] temperature 2022-03-22 13:00:00 98.2 [degF] [facility] bmi 2022-03-22 13:00:00 20.92 kg/m2 [facility] oximetry 2022-03-22 13:00:00 99 % [facility] respiratory rate 2022-03-22 13:00:00 17 /min [facility] on [facility] blood pressure 2022-03-22 13:00:00 90 mm[Hg] Common [facility] - systolic [facility] blood pressure 2022-03-22 13:00:00 54 mm[Hg] Common [facility] - diastolic [facility] Procedures Procedure Date / Time Performed Performing Clinician [facility] HEAVY METALS SCREEN, URINE 2022-04-18 20:15:00 Lewis Mccarty [facility] VITAMIN B12 2022-04-14 00:00:00 Lewis Mccarty [facility] TSH 2022-04-14 00:00:00 Lewis Mccarty [facility] COPPER 2022-04-14 00:00:00 Lewis Mccarty [facility] Encounters Start End Encounter Admission Attending Care Care Encounter Source Date/Time Date/Time Type Type Clinicians Facility Department ID 2022-11-09 Outpatient Real, STLMLC STLC [id number] Common 11:19:01 [facility] 2022-11-08 Outpatient Real, STLMLC STLMLC Common 07:33:01 [facility] 2022-10-16 Outpatient Real, STLMLC STLMLC [id number] Common 08:41:01 [facility] 2022-08-11 Outpatient [facility] [id number] [place] 13:29:[id number] [place] [address] 2022-07-18 Outpatient Real, STLMLC STLMLC [id number] Common 11:13:04 [facility] 2022-07-13 Outpatient Real, STLMLC STLMLC [id number] Common 14:05:03 [facility] 2022-07-06 Outpatient Real, STLMLC STLMLC [id number] Common 15:56:01 Barrie [facility] 2022-06-01 Outpatient Real, STLMLC STLMLC Common 14:08:02 Barrie [facility] 2022-04-13 Outpatient Real, STLMLC STLMLC Common 15:18:02 Barrie [facility] 2022-03-22 Outpatient Real, STLMLC STLMLC Common 13:05:02 Barrie [facility] 2022-03-13 Outpatient 3 Js, ENCPL CVA [id number] [facility] 09:23:09 [facility]07 Outpatient 3 Js, ENCPL CVA [id number] [facility] 10:47:49 [facility]22-03-06 Outpatient 3 [id number] ENCPL REF [id number] [facility] 11:03:26 [facility] 2020-12-11 Inpatient HCAPM HCAPM [id number] [facility] 23:40:36 84 [facility] 2022-11-20 2022-11-20 (TEL) STLMLC STLMLC [id number] [facility] 00:00:00 00:00:00 [facility] 2022-11-17 2022-11-17 OFFICE STLMLC STLMLC [id number] [facility] 00:00:00 00:00:00 VISIT EST Spir it PT LEVEL [address] [place] [address] 2022-11-09 2022-11-09 (TEL) STLMLC STLMLC [id number] [facility] 00:00:00 00:00:00 [facility] 2022-11-06 2022-11-06 (TEL) STLMLC STLMLC [id number] [facility] 00:00:00 00:00:00 [facility] 2022-10-31 2022-10-31 (TEL) STLMLC STLMLC [id number] [facility] 00:00:00 00:00:00 [facility] 2022-10-18 2022-10-18 OFFICE STLMLC STLMLC [id number] Co mmon 00:00:00 00:00:00 VISIT Spirit ESTAB PT - CHI LEVEL 4 [facility] 2022-08-28 2022-08-28 (TEL) STLMLC STLMLC [id number] [facility] 00:00:00 00:00:00 Spirit - CHI [facility] 2022-08-15 2022-08-15 (TEL) STLMLC STLMLC [id number] [facility] 00:00:00 00:00:00 [facility] 2022-05-22 2022-07-20 Outpatient LAKSHMI STUBBS ENCCLR [id number] ENCCLR 00:00:00 00:00:00 ADMISSION JAVIER 2022-07-05 2022-07-05 OFFICE STLMLC STLMLC [id number] [facility] 00:00:00 00:00:00 [facility] ESTAB PT - CHI LEVEL 4 [facility] 2022-07-05 2022-07-05 SUB ANNUAL STLMLC STLMLC [id number] Common 00:00:00 00:00:[address] [facility] WELLNESS - CHI VISIT [facility] 2022-07-05 2022-07-05 (TEL) STLMLC STLMLC [id number] [facility]mon 00:00:00 00:00:00 [facility] CHI [facility] 2022-06-05 2022-06-05 Office RILEY Lee [id number] [place] 14:00:00 14:18:23 Visit Shashi [id number] He alth [id number] [id number] 2022-06-02 2022-06-02 Telephone RILEY Lee [id number] [place] 00:00:00 00:00:00 Shashi [id number] He alth 9.2.7.2.686 [id number] 6 2022-05-31 2022-05-31 OFFICE STLMLC STLMLC [id number] Co [facility]mon 00:00:00 00:00:00 [facility] ESTAB PT - CHI LEVEL 4 [facility] 2022-05-26 2022-05-26 Outpatient TOBI, [facility] [id number] [facility] 10:50:00 23:59:00 LEWIS 2022-05-23 2022-05-23 (TEL) STLMLC STLMLC [id number] [facility] 00:00:00 00:00:00 [facility] 2022-05-22 2022-05-22 (TEL) STLMLC STLMLC [id number] [facility] 00:00:00 00:00:00 [facility] 2022-05-03 2022-05-20 Inpatient 3 NICOLE WeinsteinPL BIN [id number] [facility] 16:39:00 11:20:00 Javier 0[facility] [place] 2022-05-15 2022-05-15 (TEL) STLMLC STLMLC [id number] [facility]mon 00:00:00 00:00:00 [facility] 2022-05-02 2022-05-03 Outpatient Marlin ALAMO BL MED [id number] MHBL 17:13:00 15:56:00 JAZZ 2022-05-01 2022-05-01 Telephone Darling Sanches J[place] [id number] [place] 00:00:00 00:00:00 Darling Sanches [id number] [facility] MEDICAL 9.2.7.2.686 [place] [id number] 2022-04-18 2022-04-18 Telephone RILEY Mccarty 6410 [id number] [place] 00:00:00 00:00:00 Lewis CARNEY [id number] Health [id number] [id number] 2022-04-11 2022-04-11 Office RILEY Mccarty [id number] [place] 13:00:00 14:39:51 Visit Lewis AMADOR [id number] [facility] 9.2.7.2.686 [facility] [id number] SPECIALTY 5 2022-04-01 2022-04-01 (TEL) [facility] [id number] Co mmon 00:00:00 00:00:00 [facility] 2022-03-31 2022-03-31 (TEL) [facility] [id number] Co mmon 00:00:00 00:00:00 [facility] 2022-03-22 2022-03-22 OFFICE [facility] [id number] Co mmon 00:00:00 00:00:00 VISIT EST Spir it PT LEVEL 3 - [facility] 2022-03-06 2022-03-06 [id number] 17:28:00 23:44:00 DIOR 2022-02-23 2022-02-27 Outpatient E [facility] [id number] MHBL 14:06:00 20:49:00 YONAS 2021-12-10 2021-12-10 Emergency [id number] 17:30:00 22:35:00 EMYMARISELA CHOWDHURY 2021-02-28 2021-02-28 Outpatient SIMRAN [facility] [id number] 13:19:00 23:59:00 NOHEMY 2020-01-14 2020-01-14 Outpatient Ige[facility] [facility]FP VFP [id number] [facility] 12:47:00 12:47:00 _J_AH [id number] Family Practic e 2020-01-14 2020-01-14 Outpatient Ige[place] VFP VFP [id number] [facility] 12:47:00 12:47:00 _J_AH 76932 Family Practic e Results Test Description Test Time Test Comments Results Result Comments Source Heavy metals screen, urine 2022-04-21 04:00:00 Test Item Value Reference Range Interpretation Comme nts ARSENIC, URINE (test mcg/g creat Referen ce RangeNonexposed code = 69986-6) adult: ?< or = 35Biological Ex posure Index(end of sh ift or work week): < or = 5 0 See Note 1 LEAD, URINE (test SEE NOTE mcg/g creat Results ar e below code = 99910-9) reportable r mariah for this analyte,which i s 10 mcg/L.Reference RangeNonexposed adult: ?<10 See Note 1 MERCURY, RANDOM SEE NOTE mcg/g creat Results are below URINE (test code = reportabl e range for this 53261-6) analyte,which i s 4 mcg/L.Reference RangeNonexposed adult: ?< or = 4 Biological Exposure Index( preshift): ? < or = 35 See Note 1 CREATININE, RANDOM 188 mg/dL 20-320 Note 1 Th is test was URINE (test code = developed and its 2161-8) analytical perf ormance characteristics have been determined by [employer]. It has not been cleared or approved by theFDA. This as say has been validated pursu ant to the CLIA regulation s and is used for clinic al purposes. REPORT COMMENT: SPLIT 04/14/2022 FROM [id number] [facility] (test code = Performing Organization RAC) Information: ? ?Site ID: [facility]I ? ?[facility] ? ?Address: [address] [place] [address] ? ?Director: RONI KRAMER MD [place] [id number] 09:00:00 Test Item Value Reference Range Interpretation Comments COPPER (test See_Comment This test was code = developed and i ts 5631-7) analytical perf ormance characteristics have been determined by [facility]. It has not been cl eared or approved by theFDA. This assay has been validated pursu ant to the CLIA regula tions and is used for clinical purpos es. [Automated mess age] The system [employer] generated this result transmitted ref erence range: 70 - 175 mcg/dL. The ref erence range was not u sed to interpret this result as normal/abnor mal. RAC (test Performing code = RAC) Organization Information: ? ?Site ID: SLI ? ?[facility] ? ?Address: [address] [place] [id number] ? ?Director: RONI KRAMER MD ND [facility] [id number] 09:00:00 Test Item Value Reference Interpretation Comments Range VITAMIN B12 280 pg/mL 200-1100 Please Note: A lthough the (test code = reference range for 2132-06) kaiscsdB14 is 2 00-1100 pg/mL, it has b [...] Information: ? ?Site ID: RGA ? ?Name: [facility] ? ?Address: [address] [place] [address] ? ?Director: GRACIE SULLIVAN MD [facility] [id number] 09:00:00 Test Item Value Reference Range Interpretation Comments TSH (test See_Comment [Automated mes david] code = The system whic h 3016-3) generated this result transmit sissy reference range : 0.40 - 4.50 mIU /L. The reference r mariah was not used to interpret this result as normal/abnormal . RAC (test Performing code = RAC) Organization Information: ? ?Site ID: RGA ? ?Name: [facility] ? ?Address: [address] [place] [address] ? ?Director: GRACIE SULLIVAN MD [facility] [id number] 06:38:00 Test Item Value Reference Range Interpretation Comments GLUCOSE BEDSIDE TESTING (test code = 93 mg/dL 70-110 N GLUBED) BASIC METABOLIC [id number] 06:24:00 Test Item Value Reference Range Interpretation [...] CA) 8.8 MG/DL 8.5-10.1 N GLUCOSE BEDSIDE [id number] 17:01:00 Test Item Value Reference Range Interpretation Comments GLUCOSE BEDSIDE TESTING (test code 220 mg/dL 70-110 H = GLUBED) GLUCOSE BEDSIDE [id number] 11:37:00 Test Item Value Reference Range Interpretation Comments GLUCOSE BEDSIDE TESTING (test code = 86 mg/dL 70-110 N GLUBED) GLUCOSE BEDSIDE [id number] 08:10:00 Test Item Value Reference Range Interpretation Comments GLUCOSE BEDSIDE TESTING (test code = 86 mg/dL 70-110 N GLUBED) BASIC METABOLIC [id number] 05:12:00 Test Item Value Reference Range Interpretation [...] CA) 8.6 MG/DL 8.5-10.1 N BASIC METABOLIC [id number] 05:07:00 Test Item Value Reference Range Interpretation [...] CA) 8.6 MG/DL 8.5-10.1 N GLUCOSE BEDSIDE [id number] 20:21:00 Test Item Value Reference Range Interpretation Comments GLUCOSE BEDSIDE TESTING (test code 119 mg/dL 70-110 H = GLUBED) - CT HEAD/BRAIN W/O [id number] 18:46:00 [facility] 1955 Sex: M Name: RADHA MARMOLEJO [facility] : 1955 Age/S: 65 / M [id number] Unit #: [id number] Loc: [place] [address] Phys: Michele Thomposn MD Acct: [id number] Dis Date: Status: ADM IN PHONE #: [phone] Exam Date: 12/10/2020 1843 FAX #: Reason: decrease loc since yesterday EXAMS: CPT: [id number] HEAD/BRAIN W/O CONT [id number] EXAM: CT BRAIN WITHOUT CONTRAST INDICATION: decrease loss of consciousness since yesterday COMPARISON: MR dated December 09, 2020 TECHNIQUE: Routine axial CT images of the brain were obtained without venous contrast. IV contrast: None DLP: 875.51 mGy-cm FINDINGS: There isan evolving subacute lacunar infarct in the right [...] 1 Signed Report (CONTINUED) Name: RADHA MARMOLEJO [facility] : 1955 Age/S: 65 / M [address] Unit #: [id number] Loc: [place] [address] Phys: Michele Thompson MD Acct: [id number] Date: Status: ADM IN PHONE #: [phone] Exam Date: 12/10/20201842 FAX #: Reason: decrease loc since yesterday EXAMS: CPT: [id number] CT HEAD/BRAIN W/O CONT 29937 (Continued) CC: Michele Thompson MD; Pj Brooks MD Technologist:Sherlyn White, RT(R)(CT); En CTDI: DLP: Trnscb Date/Time: 12/10/2020 (1845) [email or web address] Orig Print D/T: S: 12/10/2020 (1848) PAGE 2 Signed Report- DUP EXTRACRANIAL [id number] 14:30:00 [facility] 1955 Sex: M Name: RADHA MARMOLEJO : 1955 Age/S: 65 / M [id number] Unit #: [id number] Loc: [place] [address] Phys: Pj Brooks MD Acct: [id number] Dis Date: Status: ADM IN PHONE #: [phone] Exam Date: 12/10/2020 1400 FAX #: Reason: ISCHEMIC STROKE EXAMS: CPT: [id number] DUP EXTRACRANIAL LAINEY [address] Dictation location A1 Carotid Doppler Ultrasound HISTORY: [...] Technologist: Nicole Landin Trnscb Date/Time: 12/10/2020 (1430) Cecil.PXC PAGE 1 Signed Report Name: RADHA MARMOLEJO : 1955 Age/S: 65 / M [id number] Unit #: [id number] Loc: [place] [address] Phys: Pj Brooks MD Acct: [id number] Dis Date: Status: ADM IN PHONE #: [phone] Exam Date: 12/10/2020 1400 FAX #: Reason: ISCHEMIC STROKE EXAMS: CPT: [id number] DUP EXTRACRANIAL LAINEY 81853 (Continued) Orig Print D/T: S: 12/10/2020 (1433) Probe: PAGE 2 Signed ReportGLYCOSYLATED HEMOGLOBIN PANEL 2020-12-10 11:30:00 Test Item Value Reference Range Interpretation Comments GLYCOSYLATED HEMOGLOBIN (HA1C) 5.8 % A1C 0.0-5.7 H (test code = GLYHGB) ESTIMATED AVERAGE GLUCOSE (test 120 MG/DLest code = EAG) COMPREHENSIVE METABOLIC [id number] 11:29:00 Test Item Value Reference Range Interpretation [...] L [Autom ated message] LDL/HDL) The system [employer] generated this result transmit sissy reference range : 1.48-3.22 Avg. The reference range was not used to interpret this result as normal/abnormal . CBC W/AUTO [id number] 11:01:00 Test Item Value Reference Range Interpretation [...] DIFF/SCN CRITERIA = MDIFF) Coronavirus 2018 nCoV [id number] 18:27:00 Test Item Value Reference Range Interpretation Comments Coronavirus 2019 nCoV Negative Negative Per ma nufacturer, Bedside (test code = negativ e results should [id number]) be treated aspresumptive a nd, if inconsistent [...] tent with COVID-19. - MRI BRAIN W/O [id number] 16:59:00 [facility] 1955 Sex: M FAX: Pj Rodriguez MD [phone] Camps: PM St: ADM Name: RADHA MARMOLEJO : 1955 Age/S: 65/M [address] Unit #: [id number] Loc: [place] [address] Phys: Pj Brooks MD Acct: [id number] Dis Date: Status: ADM IN PHONE #: [phone] Exam Date: 12/09/2020 1650 FAX #: Reason: r/o CVA EXAMS: CPT: [id number] MRI BRAIN W/O CONTRAST 43456 EXAM: MRI BRAIN WITHOUT CONTRAST INDICATION: CVA [...] Kelsie Nielsen M.D. CC: Pj Brooks MD Panchito hnologist: RT Nathaniel(R)(CT) Transcribed Date/Time/By: 12/09/2020 (6402) :16 Orig Print D/T: S: 12/09/2020 (2957) PAGE 1 Signed ReportUR PROTEIN [id number] 15:35:00 Test Item Value Reference Range Interpretation Comments UR PROTEIN TOTAL (test code = 19.3 MG/DL 0.0-12.0 H PROTU) UR CREATININE [id number] 15:35:00 Test Item Value Reference Range Interpretation Comments UR CREATININE RANDOM (test code = 97.1 MG/DL 30-125 N CREATU) - US RETRO [id number] 15:10:00 [facility] : 1955 Sex: M Name: RADHA MARMOLEJO [facility] : 1955 Age/S: 65 / M [id number] Unit #: [id number] Loc: [place] [address] Phys: Gamal Rudd MD Acct: [id number] Dis Date: Status: ADM IN PHONE #: [phone] Exam Date: 12/09/2020 1500 FAX #: Reason: evalm of kidney size and echogenicity for ckd E XAMS: CPT: [id number] US RETRO LTD [address] Location of dictation: B2 ULTRASOUND OF THE [...] MD; Gamal Rudd MD Technologist: Nicole Landin Trnsdb Date/Time: 12/09/2020 (0620) [facility] PAGE 1 Signed Report Name: RADHA MARMOLEJO [facility] : 1955 Age/S: 65 / M [id number] Unit #: [id number] Loc: [place] [address] Phys: Gamal Rudd MD Acct: [id number] Dis Date: Status: ADM IN PHONE #: [phone] Exam Date: 12/09/2020 1500 FAX #: Reason: evalm of kidney size and echogenicity for ckd EXAMS: CPT: [id number] [facility] [address] (Continued) Orig Print D/T: S: 12/09/2020 (9116) Probe: PAGE 2 Signed ReportUA RFLX MICR CULT IF [id number] 08:20:00 Test Item Value Reference Range Interpretation [...] Indication for culture: Dysuria/Frequency- XR SHOULDER 2+V [id number] 08:19:00 [facility] : 1955 Sex: M Name: RADHA MARMOLEJO : 1955 Age/S: 65 / M [id number] Unit #: [id number] Loc: [place] [address] Phys: Mode Duran MD Acct: [id number] Dis Date: Status: REG ER PHONE #: [phone] Exam Date: 12/09/2020814 FAX #: Reason: trauma EXAMS: CPT: [id number] XR SHOULDER 2+[place] [address] Fluoro Time: DAP (Gy m2): Air Kerma [...] MARMOLEJO : 1955 Age/S: 65 / M [address] Unit #: [id number] Loc: [place] [address] Phys: Mode Duran MD Acct: [id number] Dis Date: Status: REG ER PHONE #: [phone] Exam Date: 12/09/2020 0815 FAX #: Reason: trauma EXAMS: CPT: [id number] XR SHOULDER 2+[place] [address] Fluoro Time: DAP (Gy m2): Air Kerma (mGy): (Continued) Technologist:Dominguez Molina, RT(R)(CT) Trnscb Date/Time: 12/09/2020 (818) Vivien Orig Print D/T: S: 12/09/2020 (3422) PAGE 2 Signed ReportBASIC METABOLIC [id number] 08:11:00 Test Item Value Reference Range Interpretation [...] 8.6 MG/DL 8.5-10.1 N Completed by Nursing: [id number] 08:11:00 Test Item Value Reference Range Interpretation [...] shade yby method. Completed by Nursing: NOPROTHROMBIN [id number] 07:54:00 Test Item Value Reference Range Interpretation Comments PT PATIENT (test code = PTP) 11.7 SECONDS 9.3-12.9 N INTERNATIONAL NORMAL RATIO 1.04 INR Unit 0.8-1.2 N (test code = INR) THROMBOPLASTIN TIME [id number] 07:54:00 Test Item Value Reference Range Interpretation Comments THROMBOPLASTIN TIME PARTIAL 33.0 SECONDS 26-35 N (test code = PTT) - CT HEAD/BRAIN W/O [id number] 07:48:00 [facility] : 1955 Sex: M Name: RADHA MARMOLEJO [facility] : 1955 Age/S: 65 / M [id number] Unit #: [id number] Loc: [place] [address] Phys: Mode Duran MD Acct: [id number] Dis Date: Status: PRE ER PHONE #: [phone] Exam Date: 12/09/2020 0737 FAX #: Reason: Code Stroke EXAMS: CPT: [id number] CT HEAD/BRAIN W/O CONT 72861 EXAM: - CT HEAD/BRAIN W/O CONT INDICATION: [...] PAGE 1 Signed Report (CONTINUED) Name: RADHA MARMOLEJOland : 1955 Age/S: 65 / M [id number] Unit #: [id number] Loc: [place] [address] Phys: Mode Duran MD Acct: [id number] Dis Date: Status: PRE ER PHONE #: [phone] Exam Date: 12/09/2020 0737 FAX #: Reason: Code Stroke EXAMS: CPT: [id number] CT HEAD/BRAIN W/O CONT 00463 (Continued) CC: Mode Duran MD Technologist:Lewis See, RT(R) CTDI: DLP: Trnscb Date/Time: 12/09/2020 (0748) [email or web address] Orig Print D/T: S: 12/09/2020 (0751) PAGE 2 Signed ReportCBC W/O [id number] 07:47:00 Test Item Value Reference Range Interpretation [...]
[2022-11-24] MEDS ORDERED: ACETAMINOPHEN 500 MG TAB ONE (21:49)
--- NOTE | 2022-11-24 22:01 | EDPHYS ---
Physician Documentation [facility] Name: Channing Marmolejo Age: 67 yrs Sex: Male : 1955 Arrival Date: 11/24/2022 Time: 20:45 Bed 10 Private MD: ED Physician Rajesh Johnson HPI: 11/24 22:00 This 67 yrs old Black Male presents to ER via Wheelchair with complaints of Problem ms3 With Urinary Catheter. 22:00 67-year-old male with past medical history of acute kidney injury, postobstructive ms3 renal failure, carotid artery blockage, COPD presents after his home health nurse removed his Ayala catheter and was unable to replace the catheter. Patient states catheter was removed 2 hours prior to arrival. Patient denies pain at this time. Patient denies fevers, chills, nausea, vomiting. Historical: - Allergies: 21:20 No Known Allergies; aa9 - PMHx: 21:20 TOMMIE, Postobstructive Renal Failure; Carotid artery blockage; COPD; CVA; Hypertension; aa9 Seizure; Parkinson's disease; - PSHx: 21:20 Bladder Stent; aa9 - Immunization history:: Client reports receiving the 2nd dose of the Covid vaccine. - Social history:: Smoking status: unknown. ROS: 22:00 Constitutional: Negative for fever, and chills. Neck: Negative for injury, pain, and ms3 swelling, Cardiovascular: Negative for chest pain, and palpitations. Respiratory: Negative for shortness of breath, cough, wheezing, and pleuritic chest pain, Abdomen/GI: Negative for abdominal pain, nausea, vomiting, diarrhea, and constipation, MS/Extremity: Negative for injury and deformity, Skin: Negative for injury, rash, and discoloration. 22:00 : Positive for Urinary retention. Exam: 22:00 Constitutional: This is a well developed, well nourished patient who is awake, alert, ms3 and in no acute distress. Head/Face: Normocephalic, atraumatic. Neck: Trachea midline, no cervical lymphadenopathy. Supple, full range of motion without nuchal rigidity, or vertebral point tenderness. No Meningismus. Chest/axilla: Normal chest wall appearance and motion. Nontender with no deformity. Cardiovascular: Regular rate and rhythm with a normal S1 and S2. No gallops, murmurs, or rubs. Normal PMI, no JVD. No pulse deficits. Respiratory: Lungs have equal breath sounds bilaterally, clear to auscultation and percussion. No rales, rhonchi or wheezes noted. No increased work of breathing, no retractions or nasal flaring. Abdomen/GI: Soft, non-tender, with normal bowel sounds. No distension or tympany. No guarding or rebound. No evidence of tenderness throughout. Skin: Warm, dry with normal turgor. Normal color with no rashes, no lesions, and no evidence of cellulitis. Vital Signs: 21:17 Pulse 68; Resp 22 S; Pulse Ox 100% on R/A; Weight 63.5 kg (R); Height 5 ft. 11 in. aa9 (180.34 cm) (R); Pain 0/10; 22:13 BP 132 / 86; Temp 97.9(O); aa9 21:17 Body Mass Index 19.53 (63.50 kg, 180.34 cm) aa9 MDM: 21:06 Patient medically screened. ms3 22:00 Differential Diagnosis Urinary retention versus BPH versus urethral trauma. Data ms3 reviewed: vital signs, nurses notes, and as a result, I will discharge patient. Counseling: I had a detailed discussion with the patient and/or guardian regarding: the historical points, exam findings, and any diagnostic results supporting the discharge/admit diagnosis, the need for outpatient follow up, to return to the emergency department if symptoms worsen or persist or if there are any questions or concerns that arise at home. ED course: Ayala placed by nursing without incident. Patient to follow-up with primary care physician to 3 days. Patient understands agrees with plan. All questions were answered. Return precautions discussed include worsening symptoms, or any other concerns.. 11/24 20:55 Order name: Ayala; Complete Time: 21:56 ms3 Administered Medications: 21:56 Drug: Tylenol 1000 mg Route: PO; aa9 Disposition Summary: 11/24/22 22:00 Discharge Ordered Location: Home ms3 Condition: Stable ms3 Diagnosis - Retention of urine, unspecified ms3 Followup: ms3 - With: Private Physician - When: 2 - 3 days - Reason: Recheck today's complaints Discharge Instructions: - Discharge Summary Sheet ms3 - Acute Urinary Retention, Male, [id number] ms3 Forms: - Medication Reconciliation Form ms3 - Thank You Letter ms3 - Antibiotic Education ms3 - Prescription Opioid Use ms3 Signatures: Rajesh Johnson, DO ms3 Emiliana Woodson, RN RN aa9
--- NOTE | 2022-11-24 22:01 | ER ---
Nurse's Notes [facility] Name: Channing Marmolejo Age: 67 yrs Sex: Male : 1955 Arrival Date: 11/24/2022 Time: 20:45 Bed 10 Private MD: Diagnosis: Retention of urine, unspecified Presentation: 11/24 21:17 Chief complaint: he had a bladder stent placed before and we need another aa9 Ayala placed, the home health nurse attempted twice. Coronavirus screen: Vaccine status: Patient reports receiving the 2nd dose of the covid vaccine. Ebola Screen: No symptoms or risks identified at this time. Initial Sepsis Screen: Does the patient meet any 2 criteria? No. Patient's initial sepsis screen is negative. Does the patient have a suspected source of infection? No. Patient's initial sepsis screen is negative. Initial Sepsis Screen:. Initial Sepsis Screen: Does the patient meet any 2 criteria? No. Patient's initial sepsis screen is negative. Does the patient have a suspected source of infection? No. Patient's initial sepsis screen is negative. Risk Assessment: Do you want to hurt yourself or someone else? Patient reports no desire to harm self or others. Onset of symptoms was November 24, 2022. 21:17 Method Of Arrival: Wheelchair aa9 21:17 Acuity: KANWAL 4 aa9 Triage Assessment: 21:20 General: Appears uncomfortable, slender, Behavior is calm, cooperative, appropriate for aa9 age. Pain: Denies pain. Respiratory: Airway is patent Respiratory effort is even, unlabored. GI: No signs and/or symptoms were reported involving the gastrointestinal system. : Reports inability to void. Historical: - Allergies: 21:20 No Known Allergies; aa9 - PMHx: 21:20 TOMMIE, Postobstructive Renal Failure; Carotid artery blockage; COPD; CVA; Hypertension; aa9 Seizure; Parkinson's disease; - PSHx: 21:20 Bladder Stent; aa9 - Immunization history:: Client reports receiving the 2nd dose of the Covid vaccine. - Social history:: Smoking status: unknown. Screenin:20 Abuse screen: Denies threats or abuse. Denies injuries from another. Nutritional aa9 screening: No deficits noted. Tuberculosis screening: No symptoms or risk factors identified. 21:57 [facility] ED Fall Risk Assessment (Adult) History of falling in the last 3 months, aa9 including since admission No falls in past 3 months (0 pts) Confusion or Disorientation Yes (5 pts) Intoxicated or Sedated No (0 pts) Impaired Gait Yes (1 pt) Mobility Assist Device Used Yes (1 pt) Altered Elimination Yes (1 pt) Score/Fall Risk Level 3 or more points = High Risk Oriented to surroundings, Maintained a safe environment, Educated pt \T\ family on fall prevention, incl call for assistance when getting out of bed. Assessment: 21:35 Pain: Complains of pain in low back area and right low back Pain currently is 7 out of aa9 10 on a pain scale. 22:13 General: Appears in no apparent distress. Behavior is calm, cooperative. Respiratory: aa9 No deficits noted. Vital Signs: 21:17 Pulse 68; Resp 22 S; Pulse Ox 100% on R/A; Weight 63.5 kg (R); Height 5 ft. 11 in. aa9 (180.34 cm) (R); Pain 0/10; 22:13 BP 132 / 86; Temp 97.9(O); aa9 21:17 Body Mass Index 19.53 (63.50 kg, 180.34 cm) aa9 ED Course: 20:45 Patient arrived in ED. rg4 20:50 Rajesh Johnson DO is Attending Physician. ms3 21:20 Triage completed. aa9 21:28 Patient has correct armband on for positive identification. Bed in low position. Call aa9 light in reach. Side rails up X2. Adult w/ patient. 21:57 Arm band placed on. aa9 21:57 No provider procedures requiring assistance completed. Ayala cath inserted, using aa9 sterile technique, 16 Fr., by ok, balloon inflated, to gravity drainage, returned cloudy urine. Patient tolerated well. Patient did not have IV access during this emergency room visit. Administered Medications: 21:56 Drug: Tylenol 1000 mg Route: PO; aa9 Medication: 21:28 VIS not applicable for this client. aa9 Outcome: 22:00 Discharge ordered by . ms3 22:13 Discharged to home via wheelchair, with friend. aa9 22:13 Condition: stable 22:13 Discharge instructions given to patient, assistant to the dean, Instructed on discharge instructions, follow up and referral plans. Demonstrated understanding of instructions, follow-up care. 22:14 Patient left the ED. aa9 Signatures: Claribel Javed rg4 Rajesh Johnson DO DO ms3 Emiliana Woodson, RN RN aa9
[2022-11-24 22:37] VITALS: O2SAT 100
[2022-11-24 22:38] VITALS: BP 132/86; TEMP 97.9
== END 2022-11-24 22:14 | disposition home or self-care (01) ==
LOC: ER 20:41
DX: R33.9 Retention of urine, unspecified (principal); N19 Unspecified kidney failure; G20 Parkinson's disease
CPT/HCPCS: 51702; 99284

== ENCOUNTER 2022-12-07 22:36 | Emergency (ER) | payer OTHER ==
--- OUTSIDE RECORDS SUMMARY | 2022-12-07 22:56 | XMS REPORT | Continuity of Care Document ---
:1955 Author Organization [facility] t Address [address] [place] [address] Care Team Providers Name Role Phone Unknown, Physician Primary Care Physician Unavailable Barrie Real Attending Clinician Unavailable Javire Weinstein Rahil Attending Clinician Unavailable [id number] Attending Clinician Unavailable JAVIER WEINSTEIN Attending Clinician Unavailable Shashi Lee MD Attending Clinician LEWIS MCCARTY Attending Clinician Unavailable JAZZ ALAMO Attending Clinician Unavailable Verónica RN, [place] Attending Clinician Unavailable Lewis Mccarty MD Attending Clinician DIOR RODGERS Attending Clinician Unavailable YONAS REYES Attending Clinician Unavailable MARISELA GONZALEZ Attending Clinician Unavailable NOHEMY KHALIL Attending Clinician Unavailable Ige-Odun[place]_J_AH Attending Clinician Unavailable Javier Weinstein Rahil Admitting Clinician Unavailable [id number] Admitting Clinician Unavailable BARRIE REAL Admitting Clinician Unavailable JAZZ ALAMO Admitting Clinician Unavailable ROBERT REYESEEN Admitting Clinician Unavailable Ige-[place]_J_AH Admitting Clinician Unavailable Payers Payer Name Policy Type Policy Number Effective Date Expiration Date S mendez HUMANA [id number] 2022 00:00:00 HUMM HUMM [id number] HU[employer]NA MEDICARE 53 [id number] 2022 [facility]co 00:00:00 - [facility] HUMANA MEDICARE 53 [id number] 2020 Common [facility] nimco 00:00:00 [facility] MCR [id number] [facility] [place] [id number] [facility] [employer] (MEDICARE REPLACEMENT/ADV ANTAGE - HMO) Problems Condition Condition Condition Status Onset Resolution Last Treating Co mments Source Name Details Category Date Date Treatment Clinician Date 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 Spirit dominant dominant - [facility] side as side due late to 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 disease, Medical stage 3 Center [id number] Tobacco Problem Commo n abuse Spirit counseling - [facility] Chronic Chronic Problem Common obstructiv obstructiv Sp nimco e e - CHI pulmonary pulmonary St disease [facility] unspecifie Medica l d Center [id number] Hyperlipid Problem Com mon emia, Spirit unspecifie - CHI d hyperlipid [facility] emia type Medical Center [id number] Prostate Problem Comm on cancer Spirit screening - [facility] [id number] Cerebrovas Problem Co mmon cular Spirit accident - [facility] (CVA) of [facility] [id number] NPH Problem Common (normal Spirit pressure - [facility]I hydrocepha [facility] Chronic Other Problem Common pain chronic Spirit pain - [facility] [id number] Dysuria Problem Common Spirit [facility] Eruption Groin rash Problem Com mon of skin Spirit [facility] [id number] Bloody Problem Common drainage Spirit from penis - [facility] [id number] Urinary Problem Common hesitancy [facility] [id number] Hematuria, Problem Com mon unspecifie Spirit d type - [facility] Bladder Urinary Problem Common incontinen incontinen Sp nimco ce ce, - CHI unspecifie [facility] Chronic Hypertensi Problem Comm on kidney ve CKD Spirit disease (chronic - CHI due to kidney St hypertensi disease) [facility] [id number] Agitation Problem Com mon Spirit - [facility] [id number] Ataxic Problem Common gait Spirit [facility] Chronic CKD Problem Common kidney (chronic Spirit disease kidney - CHI disease) [facility] [id number] Depression Problem Co mmon with Spirit anxiety - [facility] [id number] Vascular Problem Com mon [id number] Spirit without - CHI behavioral [facility] [id number] H/O: CVA Problem Comm on (cerebrova Spirit scular - CHI accident) [facility] [id number] Encounter Problem Com mon for Spirit therapeuti - CHI c drug [facility] monitoring Medica l Center [id number] Essential Problem Comm on hypertensi Spirit on - [facility] [id number] NIKITA Problem Common (generaliz Spirit ed anxiety - CHI disorder) [facility] [id number] Kidney Problem Common filling Spirit defect - [facility] [id number] 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 - [facility]I , single [facility] [id number] BPH loc w Problem Com mon urin Spirit obs/LUTS - [facility] Allergies, Adverse Reactions, Alerts Allergy Allergy Status Severity Reaction(s) Onset Inactive Treating Comm ents Source Name Type Date Date Clinician NKA Allergy Active ENCCLR 05-22 12:30: 40 NKA Allergy Active ENCCLR 05-22 12:30: 40 NKA Allergy Active ENCCLR 05-22 12:30: 40 No Known DA Active [facility]11 [place] [facility] 00:00: d 00 [facility] No Known DA Active [facility] [place] [facility] 00:[facility]: d 00 [facility] Social History Social Habit Start Date Stop Date Quantity Comments Source History of Tobacco Current Smoker Co mmon Spirit - Use [facility] Sex Assigned At Common Sp nimco - [facility] Exposure to 2022-05-26 2022-06-05 Not sure [facility] SARS-CoV-2 (event) 00:00:00 13:46:00 Smoking Status Start Date Stop Date Source Ex-smoker [facility] Current Smoker 2022-11-17 00:00:00 [facility] t [facility] Medications Ordered Filled Start Stop Current Ordering Indication Dosage Frequency Signature Comments Components Source Medication Medication Date Date Medication? Clinician (SIG) Name Name carbidopa-l 2022- No [id number] 1{tbl} Q.[id number] Take 1 [facility] evodopa 06-05 [id number] tablet by Health (Sinemet) 00:00: 04:59 3D mouth in 25-100 MG 00 :00 the tablet morning and 1 tablet at noon and 1 tablet in the evening. levETIRAcet Yes [id number] 500mg Q.5D Take 1 UT am (Keppra) 09 tablet Health 500 MG 00:00: (500 mg tablet 00 total) by mouth in the morning and 1 tablet (500 mg total) in the evening. memantine Yes [id number] 10mg Q.5D Take 1 [facility] (Namenda) -09 tablet (10 Heal th 10 MG 00:00: mg total) tablet 00 by mouth in the morning and 1 tablet (10 mg total) in the evening. levETIRAcet Yes [id number] 500mg Q.5D Take 1 [facility] am (Keppra) 09 tablet Health 500 MG 00:00: (500 mg tablet 00 total) by mouth in the morning and 1 tablet (500 mg total) in the evening. memantine Yes [id number] 10mg Q.5D Take 1 [facility] (Namenda) 7- tablet ( th 10 MG 00:00: mg total) tablet 00 by mouth in the morning and 1 tablet (10 mg total) in the evening. levETIRAcet 2021-0 Yes [id number] 500mg Q.5D Take 1 [facility] am (Keppra) 7- tablet Health 500 MG 00:00: (500 mg tablet 00 total) by mouth in the morning and 1 tablet (500 mg total) in the evening. memantine 2021-0 Yes [id number] 10mg Q.5D Take 1 [facility] (Namenda) 7 [...] 14:33:00 [facility] Booster[facility] [facility] Com[facility] Co mmon [facility] Vaccine (Low Dose Vaccine (Low Dose 14:33:00 [facility] Booster[facility] [address] [facility] Completed Co mmon [facility] Vaccine (Low Dose Vaccine (Low Dose 14:33:00 - [facility] Booster) [facility] [address] [facility] 2021-09-28 Completed Co mmon [facility] Vaccine (Low Dose Vaccine (Low Dose 14:33:00 - [facility] Booster) [facility] [address] [facility] 2021-09-28 Completed Co mmon [facility] Vaccine (Low Dose Vaccine (Low Dose 14:33:00 - [facility] Booster) [facility] [address] [facility] 2021-09-28 Completed Co mmon [facility] Vaccine (Low Dose Vaccine (Low Dose 14:33:00 - [facility] Booster) [facility] [address] [facility] 2021-09-28 Completed Co mmon [facility] Vaccine (Low Dose Vaccine (Low Dose 14:33:00 - [facility] Booster) [facility] [address] [facility] 2021-09-28 Completed Co mmon [facility] Vaccine (Low Dose Vaccine (Low Dose 14:33:00 - [facility] Booster) [facility] [address] [facility] 2021-09-28 Completed Co mmon [facility] Vaccine (Low Dose Vaccine (Low Dose 14:33:00 - [facility]) Booster) [facility] [address] [facility] 2021-09-28 Completed Co mmon [facility] Vaccine (Low Dose Vaccine (Low Dose 14:33:00 - [facility]) Booster) [facility] [address] [facility] 2021-09-28 Completed Co mmon [facility] Vaccine (Low Dose Vaccine (Low Dose 14:33:00 - [facility] Booster) [facility] COVID-[address] [place], [place] [address] Completed Co mmon [facility] Vaccine (Low Dose Vaccine (Low Dose 14:33:00 - [facility] [address] [facility] Completed Co mmon [facility] Vaccine (Low Dose Vaccine (Low Dose 14:33:00 - [facility] Booster) [address] [facility] 2021-09-28 Completed Co mmon [facility] Vaccine (Low Dose Vaccine (Low Dose 14:33:00 - [facility] Booster) [address] [facility] 2021-09-28 Completed Co mmon [facility] Vaccine (Low Dose Vaccine (Low Dose 14:33:00 - [facility] Bo[facility] Booster) [address] [facility] 2021-09-28 Completed Co mmon [facility] Vaccine (Low Dose Vaccine (Low Dose 14:33:00 - [facility] Bo[facility]) Booster) [place] [address] 2021-09-28 Completed Co mmon [facility] Vaccine (Low Dose Vaccine (Low Dose 14:33:00 - [facility] Booster[facility] [address] [facility] 2021-09-28 Completed Co mmon [facility] Vaccine (Low Dose Vaccine (Low Dose 14:33:00 - [facility] Booster) [address] [facility] 2021-09-28 Completed Co mmon [facility] Vaccine (Low Dose Vaccine (Low Dose 14:33:00 - [facility] Booster) Booster) [facility] FLUZONE HIGH DOSE FLUZONE HIGH DOSE 2021-08-28 Completed [facility] OVER 65 OVER 65 15:01:00 [facility] FLUZONE HIGH DOSE FLUZONE HIGH DOSE 2021-08-28 Completed [facility] OVER 65 OVER 65 15:01:00 [facility] FLUZONE HIGH DOSE FLUZONE HIGH DOSE 2021-08-28 Completed [facility] OVER 65 OVER 65 15:01:00 [facility] FLUZONE HIGH DOSE FLUZONE HIGH DOSE 2021-08-28 Completed [facility] OVER 65 OVER 65 15:01:00 - [facility] FLUZONE HIGH DOSE FLUZONE HIGH DOSE 2021-08-28 Completed [facility] OVER 65 OVER 65 15:01:00 - [facility] FLUZONE HIGH DOSE FLUZONE HIGH DOSE 2021-08-28 Completed [facility] OVER 65 OVER 65 15:01:00 - [facility] FLUZONE HIGH DOSE FLUZONE HIGH DOSE 2021-08-28 Completed [facility] OVER 65 OVER 65 15:01:00 - [facility] FLUZONE HIGH DOSE FLUZONE HIGH DOSE 2021-08-28 Completed [facility] OVER 65 OVER 65 15:01:00 - [facility] FLUZONE HIGH DOSE FLUZONE HIGH DOSE 2021-08-28 Completed [facility] OVER 65 OVER 65 15:01:00 - [facility] FLUZONE HIGH DOSE FLUZONE HIGH DOSE 2021-08-28 Completed [facility] OVER 65 OVER 65 15:01:00 - [facility] FLUZONE HIGH DOSE FLUZONE HIGH DOSE 2021-08-28 Completed [facility] OVER 65 OVER 65 15:01:00 - [facility] FLUZONE HIGH DOSE FLUZONE HIGH DOSE 2021-08-28 Completed [facility] OVER 65 OVER 65 15:01:00 - [facility] FLUZONE HIGH DOSE FLUZONE HIGH DOSE 2021-08-28 Completed [facility] OVER 65 OVER 65 15:01:00 - [facility] FLUZONE HIGH DOSE FLUZONE HIGH DOSE 2021-08-28 Completed [facility] OVER 65 OVER 65 15:01:00 - [facility] FLUZONE HIGH DOSE FLUZONE HIGH DOSE 2021-08-28 Completed [facility] OVER 65 OVER 65 15:01:00 - [facility] FLUZONE HIGH DOSE FLUZONE HIGH DOSE 2021-08-28 Completed [facility] OVER 65 OVER 65 15:01:00 - [facility] FLUZONE HIGH DOSE FLUZONE HIGH DOSE 2021-08-28 Completed [facility] OVER 65 OVER 65 15:01:00 - [facility] FLUZONE HIGH DOSE FLUZONE HIGH DOSE 2021-08-28 Completed [facility] OVER 65 OVER 65 15:01:00 - [facility] FLUZONE HIGH DOSE FLUZONE HIGH DOSE 2021-08-28 Completed [facility] OVER 65 OVER 65 15:01:00 - [facility] Moderna COVID-19 Moderna COVID-19 2021-01-04 Completed Co mmon [facility] Vaccine Vaccine 14:35:00 - [facility] Moderna COVID-19 Moderna COVID-19 2021-01-04 Completed Co mmon [facility] Vaccine Vaccine 14:35:00 - [facility] Moderna COVID-19 Moderna COVID-19 2021-01-04 Completed Co mmon [facility] Vaccine Vaccine 14:35:00 - [facility] Moderna COVID-19 Moderna COVID-19 2021-01-04 Completed Co mmon Spirit Vaccine Vaccine 14:35:00 - [facility] Moderna COVID-19 Moderna COVID-19 2021-01-04 Completed Co mmon [facility] Vaccine Vaccine 14:35:00 - [facility] Moderna COVID-19 Moderna COVID-19 2021-01-04 Completed Co mmon Spirit Vaccine Vaccine 14:35:00 - [facility] Moderna COVID-19 Moderna COVID-19 2021-01-04 Completed Co mmon [facility] Vaccine Vaccine 14:35:00 - [facility] Moderna COVID-19 Moderna COVID-19 2021-01-04 Completed Co mmon Spirit Vaccine Vaccine 14:35:00 - [facility] Moderna COVID-19 Moderna COVID-19 2021-01-04 Completed Co mmon Spirit Vaccine Vaccine 14:35:00 - [facility] Moderna COVID-19 Moderna COVID-19 2021-01-04 Completed Co mmon [facility] Vaccine Vaccine 14:35:00 [facility] Moderna COVID-19 Moderna COVID-19 2021-01-04 Completed Co mmon Spirit Vaccine Vaccine 14:35:00 [facility] Moderna COVID-19 Moderna COVID-19 2021-01-04 Completed Co mmon [facility] Vaccine Vaccine 14:35:00 - [facility] Moderna COVID-19 Moderna COVID-19 2021-01-04 Completed Co mmon Spirit Vaccine Vaccine 14:35:00 - [facility] Moderna COVID-19 Moderna COVID-19 2021-01-04 Completed Co mmon Spirit Vaccine Vaccine 14:35:00 - [facility] Moderna COVID-19 Moderna COVID-19 2021-01-04 Completed Co mmon [facility] Vaccine Vaccine 14:35:00 - [facility] Moderna COVID-19 Moderna COVID-19 2021-01-04 Completed Co mmon [facility] Vaccine Vaccine 14:35:00 - [facility] Moderna COVID-19 Moderna COVID-19 2021-01-04 Completed Co mmon [facility] Vaccine Vaccine 14:35:00 - [facility] Moderna COVID-19 Moderna COVID-19 2021-01-04 Completed Co mmon Spirit Vaccine Vaccine 14:35:00 - [facility] Moderna COVID-19 Moderna COVID-19 2021-01-04 Completed Co mmon Spirit Vaccine Vaccine 14:35:00 - [facility] Moderna COVID-19 Moderna COVID-19 2020-12-03 Completed Co mmon [facility] Vaccine Vaccine 14:34:00 - [facility] Moderna COVID-19 Moderna COVID-19 2020-12-03 Completed Co mmon Spirit Vaccine Vaccine 14:34:00 - [facility] Moderna COVID-19 Moderna COVID-19 2020-12-03 Completed Co mmon [facility] Vaccine Vaccine 14:34:00 - [facility] Moderna COVID-19 Moderna COVID-19 2020-12-03 Completed Co mmon [facility] Vaccine Vaccine 14:34:00 - [facility] Moderna COVID-19 Moderna COVID-19 2020-12-03 Completed Co mmon [facility] Vaccine Vaccine 14:34:00 - [facility] Moderna COVID-19 Moderna COVID-19 2020-12-03 Completed Co mmon [facility] Vaccine Vaccine 14:34:00 - [facility] Moderna COVID-19 Moderna COVID-19 2020-12-03 Completed Co mmon [facility] Vaccine Vaccine 14:34:00 - [facility] Moderna COVID-19 Moderna COVID-19 2020-12-03 Completed Co mmon [facility] Vaccine Vaccine 14:34:00 - [facility] Moderna COVID-19 Moderna COVID-19 2020-12-03 Completed Co mmon [facility] Vaccine Vaccine 14:34:00 - [facility] Moderna COVID-19 Moderna COVID-19 2020-12-03 Completed Co mmon [facility] Vaccine Vaccine 14:34:00 - [facility] Moderna COVID-19 Moderna COVID-19 2020-12-03 Completed Co mmon [facility] Vaccine Vaccine 14:34:00 - [facility] Moderna COVID-19 Moderna COVID-19 2020-12-03 Completed Co mmon [facility] Vaccine Vaccine 14:34:00 - [facility] Moderna COVID-19 Moderna COVID-19 2020-12-03 Completed Co mmon [facility] Vaccine Vaccine 14:34:00 - [facility] Moderna COVID-19 Moderna COVID-19 2020-12-03 Completed Co mmon [facility] Vaccine Vaccine 14:34:00 - [facility] Moderna COVID-19 Moderna COVID-19 2020-12-03 Completed Co mmon [facility] Vaccine Vaccine 14:34:00 - [facility] Moderna COVID-19 Moderna COVID-19 2020-12-03 Completed Co mmon [facility] Vaccine Vaccine 14:34:00 [facility] Moderna COVID-19 Moderna COVID-19 2020-12-03 Completed Co mmon [facility] Vaccine Vaccine 14:34:00 [facility] Moderna COVID-19 Moderna COVID-19 2020-12-03 Completed Co m[facility] Vaccine Vaccine 14:34:00 [facility] Moderna COVID-19 Moderna COVID-19 2020-12-03 Completed Co mmon [facility] Vaccine Vaccine 14:34:00 [facility] FLUZONE HIGH DOSE FLUZONE HIGH DOSE 2020-07-15 Completed [facility] OVER 65 OVER 65 10:07:00 [facility] FLUZONE HIGH DOSE FLUZONE HIGH DOSE 2020-07-15 Completed [facility] OVER 65 OVER 65 10:07:00 [facility] FLUZONE HIGH DOSE FLUZONE HIGH DOSE 2020-07-15 Completed [facility] OVER 65 OVER 65 10:07:00 - [facility] FLUZONE HIGH DOSE FLUZONE HIGH DOSE 2020-07-15 Completed [facility] OVER 65 OVER 65 10:07:00 - [facility] FLUZONE HIGH DOSE FLUZONE HIGH DOSE 2020-07-15 Completed [facility] OVER 65 OVER 65 10:07:00 - [facility] FLUZONE HIGH DOSE FLUZONE HIGH DOSE 2020-07-15 Completed [facility] OVER 65 OVER 65 10:07:00 - [facility] FLUZONE HIGH DOSE FLUZONE HIGH DOSE 2020-07-15 Completed [facility] OVER 65 OVER 65 10:07:00 - [facility] FLUZONE HIGH DOSE FLUZONE HIGH DOSE 2020-07-15 Completed [facility] OVER 65 OVER 65 10:07:00 - [facility] FLUZONE HIGH DOSE FLUZONE HIGH DOSE 2020-07-15 Completed [facility] OVER 65 OVER 65 10:07:00 - [facility] FLUZONE HIGH DOSE FLUZONE HIGH DOSE 2020-07-15 Completed [facility] OVER 65 OVER 65 10:07:00 - [facility] FLUZONE HIGH DOSE FLUZONE HIGH DOSE 2020-07-15 Completed [facility] OVER 65 OVER 65 10:07:00 - [facility] FLUZONE HIGH DOSE FLUZONE HIGH DOSE 2020-07-15 Completed [facility] OVER 65 OVER 65 10:07:00 - [facility] FLUZONE HIGH DOSE FLUZONE HIGH DOSE 2020-07-15 Completed [facility] OVER 65 OVER 65 10:07:00 - [facility] FLUZONE HIGH DOSE FLUZONE HIGH DOSE 2020-07-15 Completed [facility] OVER 65 OVER 65 10:07:00 - [facility] FLUZONE HIGH DOSE FLUZONE HIGH DOSE 2020-07-15 Completed [facility] OVER 65 OVER 65 10:07:00 - [facility] FLUZONE HIGH DOSE FLUZONE HIGH DOSE 2020-07-15 Completed [facility] OVER 65 OVER 65 10:07:00 - [facility] FLUZONE HIGH DOSE FLUZONE HIGH DOSE 2020-07-15 Completed [facility] OVER 65 OVER 65 10:07:00 - [facility] FLUZONE HIGH DOSE FLUZONE HIGH DOSE 2020-07-15 Completed [facility] OVER 65 OVER 65 10:07:00 - [facility] FLUZONE HIGH DOSE FLUZONE HIGH DOSE 2020-07-15 Completed [facility] OVER 65 OVER 65 10:07:00 - [facility] FLUZONE HIGH DOSE FLUZONE HIGH DOSE 2019-08-13 Completed [facility] OVER 65 OVER 65 14:41:00 - [facility] FLUZONE HIGH DOSE FLUZONE HIGH DOSE 2019-08-13 Completed [facility] OVER 65 OVER 65 14:41:00 - [facility] FLUZONE HIGH DOSE FLUZONE HIGH DOSE 2019-08-13 Completed [facility] OVER 65 OVER 65 14:41:00 - [facility] FLUZONE HIGH DOSE FLUZONE HIGH DOSE 2019-08-13 Completed [facility] OVER 65 OVER 65 14:41:00 - [facility] FLUZONE HIGH DOSE FLUZONE HIGH DOSE 2019-08-13 Completed [facility] OVER 65 OVER 65 14:41:00 - [facility] FLUZONE HIGH DOSE FLUZONE HIGH DOSE 2019-08-13 Completed [facility] OVER 65 OVER 65 14:41:00 - [facility] FLUZONE HIGH DOSE FLUZONE HIGH DOSE 2019-08-13 Completed [facility] OVER 65 OVER 65 14:41:00 - [facility] FLUZONE HIGH DOSE FLUZONE HIGH DOSE 2019-08-13 Completed [facility] OVER 65 OVER 65 14:41:00 - [facility] FLUZONE HIGH DOSE FLUZONE HIGH DOSE 2019-08-13 Completed [facility] OVER 65 OVER 65 14:41:00 - [facility] FLUZONE HIGH DOSE FLUZONE HIGH DOSE 2019-08-13 Completed [facility] OVER 65 OVER 65 14:41:00 - [facility] FLUZONE HIGH DOSE FLUZONE HIGH DOSE 2019-08-13 Completed [facility] OVER 65 OVER 65 14:41:00 - [facility] FLUZONE HIGH DOSE FLUZONE HIGH DOSE 2019-08-13 Completed [facility] OVER 65 OVER 65 14:41:00 - [facility] FLUZONE HIGH DOSE FLUZONE HIGH DOSE 2019-08-13 Completed [facility] OVER 65 OVER 65 14:41:00 - [facility] FLUZONE HIGH DOSE FLUZONE HIGH DOSE 2019-08-13 Completed [facility] OVER 65 OVER 65 14:41:00 - [facility] FLUZONE HIGH DOSE FLUZONE HIGH DOSE 2019-08-13 Completed [facility] OVER 65 OVER 65 14:41:00 - [facility] FLUZONE HIGH DOSE FLUZONE HIGH DOSE 2019-08-13 Completed [facility] OVER 65 OVER 65 14:41:00 - [facility] FLUZONE HIGH DOSE FLUZONE HIGH DOSE 2019-08-13 Completed [facility] OVER 65 OVER 65 14:41:00 - [facility] FLUZONE HIGH DOSE FLUZONE HIGH DOSE 2019-08-13 Completed [facility] OVER 65 OVER 65 14:41:00 - [facility] FLUZONE HIGH DOSE FLUZONE HIGH DOSE 2019-08-13 Completed [facility] OVER 65 OVER 65 14:41:00 - [facility] FLUZONE HIGH DOSE FLUZONE HIGH DOSE 2018-08-15 Completed [facility] OVER 65 OVER 65 11:52:00 - [facility] FLUZONE HIGH DOSE FLUZONE HIGH DOSE 2018-08-15 Completed [facility] OVER 65 OVER 65 11:52:00 - [facility] FLUZONE HIGH DOSE FLUZONE HIGH DOSE 2018-08-15 Completed [facility] OVER 65 OVER 65 11:52:00 - [facility] FLUZONE HIGH DOSE FLUZONE HIGH DOSE 2018-08-15 Completed [facility] OVER 65 OVER 65 11:52:00 - [facility] FLUZONE HIGH DOSE FLUZONE HIGH DOSE 2018-08-15 Completed [facility] OVER 65 OVER 65 11:52:00 - [facility] FLUZONE HIGH DOSE FLUZONE HIGH DOSE 2018-08-15 Completed [facility] OVER 65 OVER 65 11:52:00 - [facility] FLUZONE HIGH DOSE FLUZONE HIGH DOSE 2018-08-15 Completed [facility] OVER 65 OVER 65 11:52:00 [facility] FLUZONE HIGH DOSE FLUZONE HIGH DOSE 2018-08-15 Completed [facility] OVER 65 OVER 65 11:52:00 - [facility] FLUZONE HIGH DOSE FLUZONE HIGH DOSE 2018-08-15 Completed [facility] OVER 65 OVER 65 11:52:00 - [facility] FLUZONE HIGH DOSE FLUZONE HIGH DOSE 2018-08-15 Completed [facility] OVER 65 OVER 65 11:52:00 - [facility] FLUZONE HIGH DOSE FLUZONE HIGH DOSE 2018-08-15 Completed [facility] OVER 65 OVER 65 11:52:00 - [facility] FLUZONE HIGH DOSE FLUZONE HIGH DOSE 2018-08-15 Completed [facility] OVER 65 OVER 65 11:52:00 - [facility] FLUZONE HIGH DOSE FLUZONE HIGH DOSE 2018-08-15 Completed [facility] OVER 65 OVER 65 11:52:00 - [facility] [facility] H[facility] FLUZONE HIGH DOSE 2018-08-15 Completed [facility] OVER 65 OVER 65 11:52:00 - [facility] FLUZONE HIGH DOSE FLUZONE HIGH DOSE 2018-08-15 Completed [facility] OVER 65 OVER 65 11:52:00 - [facility] FLUZONE HIGH DOSE FLUZONE HIGH DOSE 2018-08-15 Completed [facility] OVER 65 OVER 65 11:52:00 - [facility] FLUZONE HIGH DOSE FLUZONE HIGH DOSE 2018-08-15 Completed [facility] OVER 65 OVER 65 11:52:00 - [facility] FLUZONE HIGH DOSE FLUZONE HIGH DOSE 2018-08-15 Completed [facility] OVER 65 OVER 65 11:52:00 - [facility] FLUZONE HIGH DOSE FLUZONE HIGH DOSE 2018-08-15 Completed [facility] OVER 65 OVER 65 11:52:00 - [facility] Vital Signs Vital Name Observation Time Observation Value Comments Source height 2022-11-17 10:45:00 71 [in_i] [facility] weight 2022-11-17 10:45:00 140 [lb_av] [facility] temperature 2022-11-17 10:45:00 98.0 [degF] [facility] bmi 2022-11-17 10:45:00 19.52 kg/m2 [facility] oximetry 2022-11-17 10:45:00 98 % [facility] respiratory rate 2022-11-17 10:45:00 18 /min [facility] blood pressure 2022-11-17 10:45:00 87 mm[Hg] [facility] - systolic [facility] blood pressure 2022-11-17 10:45:00 52 mm[Hg] [facility] - diastolic [facility] height 2022-10-18 08:00:00 71 [in_i] [facility] weight 2022-10-18 08:00:00 152 [lb_av] [facility] temperature 2022-10-18 08:00:00 97.4 [degF] [facility] bmi 2022-10-18 08:00:00 21.2 kg/m2 [facility] blood pressure 2022-10-18 08:00:00 125 mm[Hg] [facility] - systolic [facility] blood pressure 2022-10-18 08:00:00 70 mm[Hg] [facility] - diastolic [facility] height 2022-07-05 16:00:00 71 [in_i] [facility] weight 2022-07-05 16:00:00 150 [lb_av] [facility] temperature 2022-07-05 16:00:00 98 [degF] [facility] bmi 2022-07-05 16:00:00 20.92 kg/m2 [facility] blood pressure 2022-07-05 16:00:00 119 mm[Hg] [facility] - systolic [facility] blood pressure 2022-07-05 16:00:00 75 mm[Hg] [facility] - diastolic [facility] height 2022-07-05 15:30:00 71 [in_i] [facility] weight 2022-07-05 15:30:00 150 [lb_av] [facility] temperature 2022-07-05 15:30:00 98 [degF] [facility] bmi 2022-07-05 15:30:00 20.92 kg/m2 [facility] blood pressure 2022-07-05 15:30:00 119 mm[Hg] [facility] - systolic [facility] blood pressure 2022-07-05 15:30:00 75 mm[Hg] [facility] - diastolic [facility] height 2022-05-31 16:20:00 71 [in_i] [facility] weight 2022-05-31 16:20:00 150.0 [lb_av] [facility] temperature 2022-05-31 16:20:00 98.2 [degF] [facility] bmi 2022-05-31 16:20:00 20.92 kg/m2 [facility] oximetry 2022-05-31 16:20:00 97 % [facility] respiratory rate 2022-05-31 16:20:00 18 /min Comm on [facility] blood pressure 2022-05-31 16:20:00 122 mm[Hg] [facility] - systolic [facility] blood pressure 2022-05-31 16:20:00 58 mm[Hg] [facility] - diastolic [facility] Systolic blood 2022-04-11 18:12:00 153 mm[Hg] [facility] Diastolic blood 2022-04-11 18:12:00 69 mm[Hg] [facility] Heart rate 2022-04-11 18:12:00 71 /min [facility] height 2022-03-22 13:00:00 71 [in_i] [facility] weight 2022-03-22 13:00:00 150 [lb_av] [facility] temperature 2022-03-22 13:00:00 98.2 [degF] [facility] bmi 2022-03-22 13:00:00 20.92 kg/m2 [facility] oximetry 2022-03-22 13:00:00 99 % [facility] respiratory rate 2022-03-22 13:00:00 17 /min [facility] on [facility] blood pressure 2022-03-22 13:00:00 90 mm[Hg] [facility] - systolic [facility] blood pressure 2022-03-22 13:00:00 54 mm[Hg] [facility] - diastolic [facility] Procedures Procedure Date / Time Performed Performing Clinician [facility] e HEAVY METALS SCREEN, URINE 2022-04-18 20:15:00 Lewis Mccarty [facility] VITAMIN B12 2022-04-14 00:00:00 Lewis Mccarty [facility] TSH 2022-04-14 00:00:00 Lewis Mccarty [facility] COPPER 2022-04-14 00:00:00 Lewis Mccarty [facility] Encounters Start End Encounter Admission Attending Care Care Encounter Source Date/Time Date/Time Type Type Clinicians Facility Department ID 2022-11-09 Outpatient Real, STLMLC STLC [id number] Common 11:19:01 [facility] 2022-11-08 Outpatient Real, STLMLC STLMLC Common 07:33:01 [facility] 2022-10-16 Outpatient Real, STLMLC STLMLC [id number] Common 08:41:01 [facility] 2022-08-11 Outpatient [facility] [id number] [place] 13:29:[id number] [place] [address] 2022-07-18 Outpatient Real, STLMLC STLMLC [id number] Common 11:13:04 [facility] 2022-07-13 Outpatient Real, STLMLC STLMLC [id number] Common 14:05:03 [facility] 2022-07-06 Outpatient Real, STLMLC STLMLC [id number] Common 15:56:01 Barrie [facility] 2022-06-01 Outpatient Real, STLMLC STLMLC Common 14:08:02 Barrie [facility] 2022-04-13 Outpatient Real, STLMLC STLMLC Common 15:18:02 Barrie [facility] 2022-03-22 Outpatient Real, STLMLC STLMLC Common 13:05:02 Barrie [facility] 2022-03-13 Outpatient 3 Js, ENCPL CVA [id number] [facility] 09:23:09 [facility]22-[facility]07 Outpatient 3 Js, ENCPL CVA [id number] [facility] 10:47:49 Javier 0510 [facility] 2022-03-06 Outpatient 3 [id number] ENCPL REF [id number] [facility] 11:03:26 0509 [facility] 2020-12-11 Inpatient HCAPM HCAPM [id number] [facility] 23:40:36 84 [facility] 2022-11-20 2022-11-20 (TEL) STLMLC STLMLC [id number] Co mmon 00:00:00 00:00:00 [facility] 2022-11-17 2022-11-17 OFFICE STLMLC STLMLC [id number] Co mmon 00:00:00 00:00:00 VISIT EST Spir it PT LEVEL [address] [place] [address] 2022-11-09 2022-11-09 (TEL) STLMLC STLMLC [id number] Co mmon 00:00:00 00:00:00 [facility] 2022-11-06 2022-11-06 (TEL) STLMLC STLMLC [id number] Co mmon 00:00:00 00:00:00 [facility] 2022-10-31 2022-10-31 (TEL) STLMLC STLMLC [id number] Co mmon 00:00:00 00:00:00 [facility] 2022-10-18 2022-10-18 OFFICE STLMLC STLMLC [id number] Co mmon 00:00:00 00:00:00 [facility] ESTAB PT - CHI LEVEL 4 [facility] 2022-08-28 2022-08-28 (TEL) STLMLC STLMLC [id number] Co mmon 00:00:00 00:00:00 [facility] - CHI [facility] 2022-08-15 2022-08-15 (TEL) STLMLC STLMLC [id number] Co mmon 00:00:00 00:00:00 [facility] 2022-05-22 2022-07-20 Outpatient LAKSHMI STUBBS ENCCLR [id number] ENCCLR 00:00:00 00:00:00 ADMISSION JAVIER 2022-07-05 2022-07-05 OFFICE STLMLC STLMLC [id number] Co mmon 00:00:00 00:00:00 [facility] ESTAB PT - CHI LEVEL 4 [facility] 2022-07-05 2022-07-05 SUB ANNUAL STLMLC STLMLC [id number] Common 00:00:00 00:00:00 [facility] WELLNESS - CHI VISIT [facility] 2022-07-05 2022-07-05 (TEL) STLMLC STLMLC [id number] Co mmon 00:00:00 00:00:00 [facility]I [facility] 2022-06-05 2022-06-05 Office RILEY Lee [id number] [place] 14:00:00 14:18:23 Visit Shashi 350.1.13.58 He alth 9.2.7.2.686 [id number] 6 2022-06-02 2022-06-02 Telephone RILEY Lee 1.2.840.114 [id number] [place] 00:00:00 00:00:00 Shashi 350.1.13.58 He alth 9.2.7.2.686 [id number] 6 2022-05-31 2022-05-31 OFFICE STLMLC STLMLC [id number] Co mmon 00:00:00 00:00:00 [facility] ESTAB PT - CHI LEVEL 4 [facility] 2022-05-26 2022-05-26 Outpatient TOBI, [facility] [id number] [facility] 10:50:00 23:59:00 LEWIS 2022-05-23 2022-05-23 (TEL) STLMLC STLMLC [id number] Co mmon 00:00:00 00:00:00 [facility] 2022-05-22 2022-05-22 (TEL) STLMLC STLMLC [id number] Co mmon 00:00:00 00:00:00 [facility] 2022-05-03 2022-05-20 Inpatient 3 NICOLE WeinsteinPL BIN [id number] [facility] 16:39:00 11:20:00 Javier 0[facility] [place] 2022-05-15 2022-05-15 (TEL) STLMLC STLMLC [id number] Co mmon 00:00:00 00:00:00 [facility] 2022-05-02 2022-05-03 Outpatient Marlin ALAMO BL MED [id number] MHBL 17:13:00 15:56:00 JAZZ 2022-05-01 2022-05-01 Telephone Darling Sanches [place] 1.2. [id number] [id number] [place] 00:00:00 00:00:00 Darling Sanches 350.1.13.58 [facility] MEDICAL 9.2.7.2.686 [place] [id number] 2022-04-18 2022-04-18 Telephone RILEY Mccarty 6410 1.2.840.114 [id number] [place] 00:00:00 00:00:00 Lewis CARNEY 350.1.13.58 Health 9.2.7.2.686 [id number] 2022-04-11 2022-04-11 Office RILEY Mccarty 1.2.840.114 [id number] [place] 13:00:00 14:39:51 Visit Lewis AMADOR 350.1.13.58 [facility] 9.2.7.2.[address] [facility] [id number] SPECIALTY 5 2022-04-01 2022-04-01 (TEL) [facility] [id number] Co mmon 00:00:00 00:00:00 [facility] 2022-03-31 2022-03-31 (TEL) [facility] [id number] Co mmon 00:00:00 00:00:00 [facility] 2022-03-22 2022-03-22 OFFICE [facility] [id number] Co mmon 00:00:00 00:00:00 VISIT EST Spir it PT LEVEL 3 - [facility] 2022-03-06 2022-03-06 Emergency [id number] 17:28:00 23:44:00 DIOR 2022-02-23 2022-02-[address] [facility] [id number] MHBL 14:06:00 20:49:00 YONAS 2021-12-10 2021-12-10 Emergency E [id number] BL 17:30:00 22:35:00 EMYMARISELA CHOWDHURY 2021-02-28 2021-02-28 Outpatient SIMRAN [facility] [address] [facility] 13:19:00 23:59:00 NOHEMY 2020-01-14 2020-01-14 Outpatient Ige[place] VFP VFP 795 [id number] [facility] 12:47:00 12:47:00 _J_AH 57910 Family Practic e 2020-01-14 2020-01-14 Outpatient Ige[place] VFP VFP 795 [id number] [facility] 12:47:00 12:47:00 _J_AH 99208 Family Practic e Results Test Description Test Time Test Comments Results Result Comments Source Heavy metals screen, urine 2022-04-21 04:00:00 Test Item Value Reference Range Interpretation Comme nts ARSENIC, URINE (test mcg/g creat Referen ce RangeNonexposed code = 98903-0) adult: ?< or = 35Biological Ex posure Index(end of sh ift or work week): < or = 5 0 See Note 1 LEAD, URINE (test SEE NOTE mcg/g creat Results ar e below code = 62418-4) reportable r mariah for this analyte,which i s 10 mcg/L.Reference RangeNonexposed adult: ?<10 See Note 1 MERCURY, RANDOM SEE NOTE mcg/g creat Results are below URINE (test code = reportabl e range for this 58447-9) analyte,which i s 4 mcg/L.Reference RangeNonexposed adult: ?< or = 4 Biological Exposure Index( preshift): ? < or = 35 See Note 1 CREATININE, RANDOM 188 mg/dL 20-320 Note 1 Th is test was URINE (test code = developed and its 2161-8) analytical perf ormance characteristics have been determined by [employer]. It has not been cleared or approved by theFDA. This as say has been validated pursu ant to the CLIA regulation s and is used for clinic al purposes. REPORT COMMENT: SPLIT 04/14/2022 FROM [id number] [facility] (test code = Performing Organization RAC) Information: ? ?Site ID: [facility] ? ?[facility] ? ?Address: [address] [place] [address] ? ?Director: RONI KRAMER MD [place] [id number] 09:00:00 Test Item Value Reference Range Interpretation Comments COPPER (test See_Comment This test was code = developed and i ts 5631-7) analytical perf ormance characteristics have been determined by [employer]. It has not been cl eared or approved by theFDA. This assay has been validated pursu ant to the CLIA regula tions and is used for clinical purpos es. [Automated mess age] The system [employer] generated this result transmitted ref erence range: 70 - 175 mcg/dL. The ref erence range was not u sed to interpret this result as normal/abnor mal. RAC (test Performing code = RAC) Organization Information: ? ?Site ID: [facility] ? ?[facility] ? ?Address: [address] [place] [id number] ? ?Director: RONI KRAMER MD [place] Health[facility] [id number] 09:00:00 Test Item Value Reference Interpretation Comments Range VITAMIN B12 280 pg/mL 200-1100 Please Note: A lthough the (test code = reference range for 2132-06) ecxdjtrH65 is 2 00-1100 pg/mL, it has b [...] Information: ? ?Site ID: RGA ? ?Name: [employer] [place] ? ?Address: [address] [place] [address] ? ?Director: GRACIE SULLIVAN MD [facility] [id number] 09:00:00 Test Item Value Reference Range Interpretation Comments TSH (test See_Comment [Automated mes david] code = The system whic h 3016-3) generated this result transmit sissy reference range : 0.40 - 4.50 mIU /L. The reference r mariah was not used to interpret this result as normal/abnormal . RAC (test Performing code = RAC) Organization Information: ? ?Site ID: RGA ? ?Name: [employer] [place] ? ?Address: [address] [place] [address] ? ?Director: GRACIE SULLIVAN MD [facility] [id number] 06:38:00 Test Item Value Reference Range Interpretation Comments GLUCOSE BEDSIDE TESTING (test code = 93 mg/dL 70-110 N GLUBED) BASIC METABOLIC [id number] 06:24:00 Test Item Value Reference Range Interpretation [...] CA) 8.8 MG/DL 8.5-10.1 N GLUCOSE BEDSIDE [id number] 17:01:00 Test Item Value Reference Range Interpretation Comments GLUCOSE BEDSIDE TESTING (test code 220 mg/dL 70-110 H = GLUBED) GLUCOSE BEDSIDE [id number] 11:37:00 Test Item Value Reference Range Interpretation Comments GLUCOSE BEDSIDE TESTING (test code = 86 mg/dL 70-110 N GLUBED) GLUCOSE BEDSIDE [id number] 08:10:00 Test Item Value Reference Range Interpretation Comments GLUCOSE BEDSIDE TESTING (test code = 86 mg/dL 70-110 N GLUBED) BASIC METABOLIC [id number] 05:12:00 Test Item Value Reference Range Interpretation [...] CA) 8.6 MG/DL 8.5-10.1 N BASIC METABOLIC [id number] 05:07:00 Test Item Value Reference Range Interpretation [...] CA) 8.6 MG/DL 8.5-10.1 N GLUCOSE BEDSIDE [id number] 20:21:00 Test Item Value Reference Range Interpretation Comments GLUCOSE BEDSIDE TESTING (test code 119 mg/dL 70-110 H = GLUBED) - CT HEAD/BRAIN W/O [id number] 18:46:00 [facility] 1955 Sex: M Name: RADHA MARMOLEJO [facility] : 1955 Age/S: 65 / M [address] [address] [place] Unit #: [id number] Loc: [place] [address] Phys: Michele Thompson MD Acct: [id number] Dis Date: Status: ADM IN PHONE #: [phone] Exam Date: 12/10/2020 1843 FAX #: Reason: decrease loc since yesterday EXAMS: CPT: [id number] HEAD/BRAIN W/O CONT 62542 EXAM: CT BRAIN WITHOUT CONTRAST INDICATION: decrease [...] Report (CONTINUED) Name: RADHA MARMOLEJO [facility] : 1955 Age/S: 65 / M [address] [address] [place] Unit #: [id number] Loc: [place] [address] Phys: Michele Thompson MD Acct: [id number] Date: Status: ADM IN PHONE #: [phone] Exam Date: 12/10/20201842 FAX #: Reason: decrease loc since yesterday EXAMS: CPT: [id number] CT HEAD/BRAIN W/O CONT 14607 (Continued) CC: Michele Thompson MD; Pj Brooks MD Technologist:Sherlyn White, RT(R)(CT); En CTDI: DLP: Trnscb Date/Time: 12/10/2020 (1845) [email or web address] Orig Print D/T: S: 12/10/2020 (1848) PAGE 2 Signed Report- DUP EXTRACRANIAL [id number] 14:30:00 [facility] : 1955 Sex: M Name: RADHA MARMOLEJO : 1955 Age/S: 65 / M [id number] [address] [place] Unit #: [id number] Loc: [place] [address] Phys: Pj Brooks MD Acct: [id number] Dis Date: Status: ADM IN PHONE #: [phone] Exam Date: 12/10/2020 1400 FAX #: Reason: ISCHEMIC STROKE EXAMS: CPT: [id number] DUP EXTRACRANIAL [place]INE[place] [address] Dictation location A1 Carotid Doppler Ultrasound HISTORY: [...] MARMOLEJO : 1955 Age/S: 65 / M [address] [address] [place] Unit #: [id number] Loc: [place] [address] Phys: Pj Brooks MD Acct: [id number] Dis Date: Status: ADM IN PHONE #: [phone] Exam Date: 12/10/2020 1400 FAX #: Reason: ISCHEMIC STROKE EXAMS: CPT: [id number] DUP EXTRACRANIAL [place] [address] (Continued) Orig Print D/T: S: 12/10/2020 (1433) Probe: PAGE 2 Signed ReportGLYCOSYLATED HEMOGLOBIN PANEL 2020-12-10 11:30:00 Test Item Value Reference Range Interpretation Comments GLYCOSYLATED HEMOGLOBIN (HA1C) 5.8 % A1C 0.0-5.7 H (test code = GLYHGB) ESTIMATED AVERAGE GLUCOSE (test 120 MG/DLest code = EAG) COMPREHENSIVE METABOLIC [id number] 11:29:00 Test Item Value Reference Range Interpretation [...] L [Autom ated message] LDL/HDL) The system [employer] generated this result transmit sissy reference range : 1.48-3.22 Avg. The reference range was not used to interpret this result as normal/abnormal . CBC W/AUTO [id number] 11:01:00 Test Item Value Reference Range Interpretation [...] DIFF/SCN CRITERIA = MDIFF) Coronavirus 2018 nCoV [id number] 18:27:00 Test Item Value Reference Range Interpretation Comments Coronavirus 2019 nCoV Negative Negative Per ma nufacturer, Bedside (test code = negativ e results should [id number]) be treated aspresumptive a nd, if inconsistent [...] tent with COVID-19. - MRI BRAIN W/O [id number] 16:59:00 [facility] 1955 Sex: M FAX: Pj Rodriguez MD [phone] Camps: PM St: ADM Name: RADHA MARMOLEJO : 1955 Age/S: 65/M [address] [address] [place] Unit #: [id number] Loc: [place] [address] Phys: Pj Brooks MD Acct: [id number] Dis Date: Status: ADM IN PHONE #: [phone] Exam Date: 12/09/2020 1650 FAX #: Reason: r/o CVA EXAMS: CPT: [id number] MRI BRAIN W/O CONTRAST 25378 EXAM: MRI BRAIN WITHOUT CONTRAST INDICATION: CVA [...] Panchito hnologist: RT Nathaniel(R)(CT) Transcribed Date/Time/By: 12/09/2020 (2281) :16 Orig Print D/T: S: 12/09/2020 (5347) PAGE 1 Signed ReportUR PROTEIN [id number] 15:35:00 Test Item Value Reference Range Interpretation Comments UR PROTEIN TOTAL (test code = 19.3 MG/DL 0.0-12.0 H PROTU) UR CREATININE [id number] 15:35:00 Test Item Value Reference Range Interpretation Comments UR CREATININE RANDOM (test code = 97.1 MG/DL 30-125 N CREATU) - US RETRO [id number] 15:10:00 [facility] : 1955 Sex: M Name: RADHA MARMOLEJO [facility] : 1955 Age/S: 65 / M [address] [address] [place] Unit #: [id number] Loc: [place] [address] Phys: Gamal Rudd MD Acct: [id number] Dis Date: Status: ADM IN PHONE #: [phone] Exam Date: 12/09/2020 1500 FAX #: Reason: evalm of kidney size and echogenicity for ckd E XAMS: CPT: [id number] US RETRO LTD [address] Location of dictation: B2 ULTRASOUND OF THE [...] MD; Gamal Rudd MD Technologist: Nicole Landin Trnakb Date/Time: 12/09/2020 (1130) [facility] PAGE 1 Signed Report Name: RADHA MARMOLEJO [facility] : 1955 Age/S: 65 / M [address] [address] [place] Unit #: [id number] Loc: [place] [address] Phys: Gamal Rudd MD Acct: [id number] Dis Date: Status: ADM IN PHONE #: [phone] Exam Date: 12/09/2020 1500 FAX #: Reason: evalm of kidney size and echogenicity for ckd EXAMS: CPT: [id number] [facility] [address] (Continued) Orig Print D/T: S: 12/09/2020 (3508) Probe: PAGE 2 Signed ReportUA RFLX MICR CULT IF [id number] 08:20:00 Test Item Value Reference Range Interpretation [...] Indication for culture: Dysuria/Frequency- XR SHOULDER 2+V [id number] 08:19:00 [facility] : 1955 Sex: M Name: RADHA MARMOLEJO : 1955 Age/S: 65 / M [address] [address] [place] Unit #: [id number] Loc: [place] [address] Phys: Mode Duran MD Acct: [id number] Dis Date: Status: REG ER PHONE #: [phone] Exam Date: 12/09/2020814 FAX #: Reason: trauma EXAMS: CPT: [id number] XR SHOULDER 2+[place] [address] Fluoro Time: DAP (Gy m2): Air Kerma [...] MARMOLEJO : 1955 Age/S: 65 / M [address] [address] [place] Unit #: [id number] Loc: [place] [address] Phys: Mode Duran MD Acct: [id number] Dis Date: Status: REG ER PHONE #: [phone] Exam Date: 12/09/2020 0815 FAX #: Reason: trauma EXAMS: CPT: [id number] XR SHOULDER 2+[place] [address] Fluoro Time: DAP (Gy m2): Air Kerma (mGy): (Continued) Technologist:Dominguez Molina, RT(R)(CT) Trnscb Date/Time: 12/09/2020 (818) Vivien Orig Print D/T: S: 12/09/2020 (0122) PAGE 2 Signed ReportBASIC METABOLIC [id number] 08:11:00 Test Item Value Reference Range Interpretation [...] 8.6 MG/DL 8.5-10.1 N Completed by Nursing: [id number] 08:11:00 Test Item Value Reference Range Interpretation [...] shade yby method. Completed by Nursing: NOPROTHROMBIN [id number] 07:54:00 Test Item Value Reference Range Interpretation Comments PT PATIENT (test code = PTP) 11.7 SECONDS 9.3-12.9 N INTERNATIONAL NORMAL RATIO 1.04 INR Unit 0.8-1.2 N (test code = INR) THROMBOPLASTIN TIME [id number] 07:54:00 Test Item Value Reference Range Interpretation Comments THROMBOPLASTIN TIME PARTIAL 33.0 SECONDS 26-35 N (test code = PTT) - CT HEAD/BRAIN W/O [id number] 07:48:00 [facility] : 1955 Sex: M Name: RADHA MARMOLEJO [facility] : 1955 Age/S: 65 / M [address] [address] [place] Unit #: [id number] Loc: [place] [address] Phys: Mode Duran MD Acct: [id number] Dis Date: Status: PRE ER PHONE #: [phone] Exam Date: 12/09/2020 0737 FAX #: Reason: Code Stroke EXAMS: CPT: [id number] CT HEAD/BRAIN W/O CONT 36115 EXAM: - CT HEAD/BRAIN W/O CONT INDICATION: [...] MARMOLEJOland : 1955 Age/S: 65 / M [address] [address] [place] Unit #: [id number] Loc: [place] [address] Phys: Mode Duran MD Acct: [id number] Dis Date: Status: PRE ER PHONE #: [phone] Exam Date: 12/09/2020 0737 FAX #: Reason: Code Stroke EXAMS: CPT: [id number] CT HEAD/BRAIN W/O CONT 93886 (Continued) CC: Mode Duran MD Technologist:Lewis See, RT(R) CTDI: DLP: Trnscb Date/Time: 12/09/2020 (0748) [email or web address] Orig Print D/T: S: 12/09/2020 (0751) PAGE 2 Signed ReportCBC W/O [id number] 07:47:00 Test Item Value Reference Range Interpretation [...]
--- NOTE | 2022-12-08 00:29 | ER ---
Nurse's Notes [facility] Name: Channing Marmolejo Age: 67 yrs Sex: Male : 1955 Arrival Date: 12/07/2022 Time: 22:40 Bed 15 Private MD: Diagnosis: Mechanical complication of urinary (indwelling) catheter;Leakage of urinary (indwelling) catheter Presentation: 12/07 23:16 Chief complaint: Patient states: my sepulveda was put in 2 weeks ago and its coming out. lg3 Coronavirus screen: Client denies travel out of the [place] in the last 14 days. At this time, the client does not indicate any symptoms associated with coronavirus-19. Ebola Screen: No symptoms or risks identified at this time. Initial Sepsis Screen: Does the patient meet any 2 criteria? No. Patient's initial sepsis screen is negative. Does the patient have a suspected source of infection? No. Patient's initial sepsis screen is negative. Risk Assessment: Do you want to hurt yourself or someone else? Patient reports no desire to harm self or others. Onset of symptoms. 23:16 Method Of Arrival: Wheelchair lg3 23:16 Acuity: KANWAL 4 lg3 Triage Assessment: 23:17 General: Appears in no apparent distress. comfortable, Behavior is calm, cooperative. lg3 Pain: Denies pain. EENT: No deficits noted. No signs and/or symptoms were reported regarding the EENT system. Neuro: No deficits noted. Castaneda Agitation-Sedation Scale (RASS): 0 - Alert and Calm Level of Consciousness is awake, alert, obeys commands, Oriented to person, place, time, situation. Cardiovascular: No deficits noted. Denies chest pain, shortness of breath, Capillary refill < 3 seconds Clubbing of nail beds is absent JVD is absent Patient's skin is warm and dry. Respiratory: No deficits noted. Airway is patent Trachea midline Respiratory effort is even, unlabored, Respiratory pattern is regular, symmetrical. GI: No deficits noted. Abdomen is flat, non-distended. : Sepulveda in place to gravity drainage Urine is dark iliana in color. Derm: No deficits noted. No signs and/or symptoms reported regarding the dermatologic system. Skin is healthy with good turgor, is thin. Musculoskeletal: No deficits noted. Circulation, motion, and sensation intact. Range of motion: intact in all extremities. Historical: - Allergies: 23:17 No Known Allergies; lg3 - Home Meds: 23:17 amlodipine 10 mg tab once daily [Active]; aspirin 81 mg Oral tab daily [Active]; lg3 atorvastatin 40 mg Oral tab 1 tab once daily [Active]; Carbidopa-Levodopa Oral 3 times per day [Active]; carvedilol 12.5 mg Oral tab every 12 hours [Active]; Cipro Oral [Active]; clopidogrel 75 mg Oral tab once daily [Active]; donepezil 5 mg Oral tab twice a day [Active]; ergocalciferol (vitamin D2) 50,000 unit Oral tab every sunday at 0800 [Active]; Folic Acid Oral [Active]; Phenazopyridine Oral [Active]; tamsulosin 0.4 mg Oral cap once daily [Active]; - PMHx: 23:17 TOMMIE, Postobstructive Renal Failure; Carotid artery blockage; COPD; CVA; Hypertension; lg3 Parkinson's disease; Seizure; - PSHx: 23:17 Bladder Stent; lg3 - Immunization history:: Adult Immunizations up to date, Client reports receiving the 2nd dose of the Covid vaccine. - Social history:: Smoking status: Patient denies any tobacco usage or history of. Patient/guardian denies using alcohol, street drugs. - Family history:: not pertinent. - Hospitalizations: : No recent hospitalization is reported. Screenin:20 [facility] ED Fall Risk Assessment (Adult) History of falling in the last 3 months, lg3 including since admission No falls in past 3 months (0 pts). Abuse screen: Denies threats or abuse. Denies injuries from another. Nutritional screening: No deficits noted. Tuberculosis screening: No symptoms or risk factors identified. Assessment: 23:20 General: see triage assessment. lg3 12/08 00:27 Reassessment: Patient appears in no apparent distress at this time. No changes from lg3 previously documented assessment. Patient and/or family updated on plan of care and expected duration. Pain level reassessed. Patient is alert, oriented x 3, equal unlabored respirations, skin warm/dry/pink. Vital Signs: 12/07 23:16 BP 146 / 78; Pulse 72; Resp 16; Temp 98.7(O); Pulse Ox 100% on R/A; Weight 63.5 kg (R); lg3 Height 5 ft. 11 in. (180.34 cm) (R); Pain 0/10; 23:16 Body Mass Index 19.53 (63.50 kg, 180.34 cm) lg3 ED Course: 22:40 Patient arrived in ED. jj6 23:10 Evgeny Torres MD is Attending Physician. rn 23:16 Muna Caraballo, [facility] is Primary Nurse. lg3 23:17 Triage completed. lg3 23:17 Arm band placed on right wrist. lg3 23:20 Patient has correct armband on for positive identification. Placed in gown. Bed in low lg3 position. Call light in reach. Side rails up X 1. Client placed on continuous cardiac and pulse oximetry monitoring. NIBP monitoring applied. Door closed. Noise minimized. Warm blanket given. Family accompanied patient. 02/ 00:27 Sepulveda cath inserted, using sterile technique, 18 Fr., by ri, balloon inflated, to lg3 gravity drainage, Patient tolerated well. 00:28 No provider procedures requiring assistance completed. Patient did not have IV access lg3 during this emergency room visit. Administered Medications: No medications were administered Medication: 00:35 VIS not applicable for this client. lg3 Outcome: 00:29 Discharge ordered by . rn 00:34 Discharged to home via wheelchair, with family. lg3 00:34 Condition: stable 00:34 Discharge instructions given to patient, family, Instructed on discharge instructions, follow up and referral plans. Demonstrated understanding of instructions, follow-up care. 00:36 Patient left the ED. lg3 Signatures: Evgeny Torres MD MD rn Gibson, Lacie, RN RN lg3 Yaneli Judd [email or web address]
--- NOTE | 2022-12-08 00:29 | EDPHYS ---
Physician Documentation [facility] Name: Channing Marmolejo Age: 67 yrs Sex: Male : 1955 Arrival Date: 12/07/2022 Time: 22:40 Bed 15 Private MD: ED Physician Evgeny Torres HPI: 12/08 00:25 This 67 yrs old Black Male presents to ER via Wheelchair with complaints of Problem rn With Urinary Catheter. 00:25 The patient presents with a Ayala catheter problem, is leaking urine. Onset: The rn symptoms/episode began/occurred at an unknown time. Modifying factors: The symptoms are alleviated by nothing, the symptoms are aggravated by nothing. Associated signs and symptoms: Pertinent negatives: abdominal pain, nausea, vomiting. Severity of symptoms: At their worst the symptoms were mild, in the emergency department the symptoms are unchanged. The patient has experienced similar episodes in the past. The patient has not recently seen a physician. Pt and family report home health care stated leakage around catheter, patient feels like catheter "coming out". NO fever. NO trauma. . Historical: - Allergies: 12/07 23:17 No Known Allergies; lg3 - Home Meds: 23:17 amlodipine 10 mg tab once daily [Active]; aspirin 81 mg Oral tab daily [Active]; lg3 atorvastatin 40 mg Oral tab 1 tab once daily [Active]; Carbidopa-Levodopa Oral 3 times per day [Active]; carvedilol 12.5 mg Oral tab every 12 hours [Active]; Cipro Oral [Active]; clopidogrel 75 mg Oral tab once daily [Active]; donepezil 5 mg Oral tab twice a day [Active]; ergocalciferol (vitamin D2) 50,000 unit Oral tab every sunday at 0800 [Active]; Folic Acid Oral [Active]; Phenazopyridine Oral [Active]; tamsulosin 0.4 mg Oral cap once daily [Active]; - PMHx: 23:17 TOMMIE, Postobstructive Renal Failure; Carotid artery blockage; COPD; CVA; Hypertension; lg3 Parkinson's disease; Seizure; - PSHx: 23:17 Bladder Stent; lg3 - Immunization history:: Adult Immunizations up to date, Client reports receiving the 2nd dose of the Covid vaccine. - Social history:: Smoking status: Patient denies any tobacco usage or history of. Patient/guardian denies using alcohol, street drugs. - Family history:: not pertinent. - Hospitalizations: : No recent hospitalization is reported. ROS: 12/08 00:25 Constitutional: Negative for fever, chills, and weight loss, Abdomen/GI: Negative for rn abdominal pain, nausea, vomiting, diarrhea, and constipation, : Negative for injury, bleeding, discharge, and swelling, MS/Extremity: Negative for injury and deformity, Skin: Negative for injury, rash, and discoloration, Neuro: Negative for headache, weakness, numbness, tingling, and seizure. Exam: 00:25 Constitutional: Thin male, no acute distress Cardiovascular: Regular rate and rhythm. rn No pulse deficits. Respiratory: No increased work of breathing, no retractions or nasal flaring. Abdomen/GI: soft, non-tender Male : Ayala catheter in place, no gross hematuria. Large amount of urine in bag. Vital Signs: 12/07 23:16 BP 146 / 78; Pulse 72; Resp 16; Temp 98.7(O); Pulse Ox 100% on R/A; Weight 63.5 kg (R); lg3 Height 5 ft. 11 in. (180.34 cm) (R); Pain 0/10; 23:16 Body Mass Index 19.53 (63.50 kg, 180.34 cm) lg3 MDM: 23:10 Patient medically screened. rn 12/08 00:25 Differential diagnosis: urinary retention, Ayala catheter problem. Data reviewed: vital rn signs, nurses notes, old medical records, and as a result, I will discharge patient. Counseling: I had a detailed discussion with the patient and/or guardian regarding: the historical points, exam findings, and any diagnostic results supporting the discharge/admit diagnosis, the need for outpatient follow up, to return to the emergency department if symptoms worsen or persist or if there are any questions or concerns that arise at home. Response to treatment: the patient's symptoms have mildly improved after treatment, and as a result, I will discharge patient. Special discussion: I discussed with the patient/guardian in detail that at this point there is no indication for admission to the hospital. It is understood, however, that if the symptoms persist or worsen the patient needs to return immediately for re-evaluation. Based on the history and exam findings, there is no indication for further emergent testing or inpatient evaluation. I discussed with the patient/guardian the need to see the primary care provider for further evaluation of the symptoms. I discussed with the patient/guardian the need to see the urologist for further evaluation of the symptoms. ED course: Ayala catheter replaced, draining well, no complication, patient tolerated well. . 12/07 23:26 Order name: Ayala; Complete Time: 23:54 rn Administered Medications: No medications were administered Disposition Summary: 12/08/22 00:29 Discharge Ordered Location: Home rn Problem: new rn Symptoms: have improved rn Condition: Stable rn Diagnosis - Mechanical complication of urinary (indwelling) catheter rn - Leakage of urinary (indwelling) catheter rn Followup: rn - With: Private Physician - When: As needed - Reason: Recheck today's complaints, Re-evaluation by your physician Discharge Instructions: - Discharge Summary Sheet rn - Indwelling Urinary Catheter Care, Adult rn Forms: - Medication Reconciliation Form rn - Thank You Letter rn - Antibiotic critical care rn - Prescription Opioid Use rn Signatures: Evgeny Torres MD MD rn Gibson, Lacie, RN RN lg3 Corrections: (The following items were deleted from the chart) 00:27 00:25 Constitutional: Negative for fever, chills, and weight loss, Abdomen/GI: Negative rn for abdominal pain, nausea, vomiting, diarrhea, and constipation, MS/Extremity: Negative for injury and deformity, Neuro: Negative for headache, weakness, numbness, tingling, and seizure, rn
[2022-12-08 01:11] VITALS: BP 146/78; TEMP 98.7; O2SAT 100
== END 2022-12-08 00:36 | disposition home or self-care (01) ==
LOC: ER 22:36
DX: T83.031A Leakage of indwelling urethral catheter, initial encounter (principal); N17.9 Acute kidney failure, unspecified; I10 Essential (primary) hypertension; G20 Parkinson's disease; Z86.73 Personal history of transient ischemic attack (TIA), and cerebral infarction without residual deficits; Z79.82 Long term (current) use of aspirin
CPT/HCPCS: 51702; 99284

== ENCOUNTER 2022-12-19 11:49 | Day surgery (SDC) | payer OTHER ==
[~2022-12-19 11:49] MED LIST: Gentamicin Inj 120 MG in NA CHLORIDE 0.9% 100 ML IV SCH; VANCOMYCIN 1 GM in NA CHLORIDE 0.9% 250 ML IVPB SCH
[2022-12-19] MEDS ORDERED: Ringers Lactate 1,000 ML IV ONE (12:24)
[2022-12-19] MEDS ORDERED: AMPICILLIN SODIUM 2 GM/VIAL VIAL ONE (12:24)
[2022-12-19] MEDS ORDERED: CIPROFLOXACIN HCL 500 MG TAB ONE (15:41)
[2022-12-19] MEDS ORDERED: propofoL 200 MG/20 ML VIAL IV ONE (19:18)
[2022-12-19] MEDS ORDERED: ROCURONIUM 50 MG/5 ML VIAL IV ONE (19:19)
[2022-12-19] MEDS ORDERED: LIDOCAINE 1% MPF 5 ML VIAL ONE (19:19)
[2022-12-19] MEDS ORDERED: FENTANYL CITR 100 MCG/2 ML ONE (20:03)
[2022-12-19] MEDS ORDERED: GLYCOPYRROLATE 0.2 MG/ML SYR ONE ×2 (20:14→20:28)
[2022-12-19] MEDS ORDERED: EPHEDRINE SULF 50 MG/ML VIAL ONE (20:14)
[2022-12-19] MEDS ORDERED: NEOSTIGMINE 1 MG/ML -10 ML VIAL ONE (20:52)
[2022-12-19] MEDS ORDERED: dexAMETHasone 10 MG/ML VIAL ONE (20:53)
[2022-12-19] MEDS ORDERED: ONDANSETRON 4 MG/2 ML VIAL ONE (20:53)
[2022-12-19] MEDS ORDERED: MORPHINE 4 MG/ML SYR ONE (21:33)
[2022-12-19 21:50] VITALS: BP 126/60; TEMP 96.9; O2SAT 99
--- NOTE | 2022-12-19 21:52 | RAD REPORT ---
EXAM DESCRIPTION: RAD - Cystography - 12/19/2022 9:15 pm CLINICAL HISTORY: LEFT STENT AND UROLIFT COMPARISON: None available. FINDINGS: One image was sent to PACS, documenting image guided stent placement procedure. No radiolo gist was available for the procedure, nor will any image interpretation he provided. Please refer to the procedural report for additional details. Fluoroscopy time: 1:12 Minutes. IMPRESSION: Documentation of fluoroscopy utilization as above.
[2022-12-19] MEDS ORDERED: CODEINE 30MG/APAP 300MG TAB PO PRN (22:00)
[2022-12-19] MEDS ORDERED: PHENAZOPYRIDINE 100MG TAB PO ONE (22:00)
--- NOTE | 2022-12-19 22:38 | OP ---
Surgeon: LARISSA GARCIA Preoperative Diagnoses: 1.Left renal filling defect. 2.BPH with lower urinary tract obstruction and urinary retention. 3.History of cerebrovascular accident. 4.Urodynamics interpretation: a.Detrusor instability at low volume. b.Adequate detrusor contractility with maximum detrusor contraction 70 cm of water pressure. c.Slight evidence of striated sphincter dyssynergia/voiding dysfunction. d.Likely prostatic urethral obstruction. e.High potential for incontinence. Postoperative Diagnoses: 1.Left renal filling defect. 2.BPH with lower urinary tract obstruction and urinary retention. 3.History of cerebrovascular accident. 4.Right hydronephrosis. 5.Right ureteral narrowing at L3 and pelvic inlet. 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 Principal Procedures: 1.Cystoscopy. 2.Bilateral retrograde pyelography. Studies. 3.Left ureteroscopy. 4.Left ureteroscopic renal/proximal ureteral wash/aspirate for cytology. 5.Right 7-Croatian x 26 cm double-J ureteral stent placement. 6.Prostatic urethral lift/UroLift with 6 implants placed; 2 on the left, 2 on the right, and 2 in a median lobe via a left lateral sulcus. Indication For Procedure: Mr. Marmolejo was initially seen in evaluation because of acute on chronic gian al failure associated with bilateral hydronephrosis with the left side being greater than the right a nd extreme cortical thinning being present on the left side. As a result, on 10/25/2022, he underwen t cystoscopy with bilateral retrograde pyelography studies and bilateral ureteral stents were placed. Of note, at the time of that left retrograde study, there was a significant irregular filling defec t with what appeared to be almost extravasation of contrast. No normal renal pelvic or calyceal erasto kimberlyn was identified. A stent was placed, and subsequent CT imaging did suggest the stent was in good position within the renal pelvis despite the retrograde study done on admission for other complicated medical illness. As a result, he presents today for definitive evaluation of his left renal pelvic filling defect, but also to evaluate if persistent hydronephrosis demands, continued need for right u reteral stent placement and to manage obstruction due to BPH causing urinary retention requiring a ca theter. Procedure In Detail: The patient was consented in the preoperative holding area along with his broth er who was able to consent on his behalf before being transferred to the operative suite where genera l anesthesia was induced. He had been given vancomycin several hours prior to the surgery as well as ciprofloxacin at least 3 hours prior to the procedure for antimicrobial prophylaxis given a resistan t Staphylococcus seen in his urine associated with the indwelling urethral Ayala catheter. Pneumo staci ots were provided for DVT prophylaxis. He was placed in the lithotomy position, padded and secured t o the table appropriately, and his genitalia was prepped with Hibiclens and draped in standard fashio n. The case was begun using a 22-Croatian rigid cystoscope to traverse the urethra and into the bladde r with ease. After the catheter had been removed and he was prepped. Upon entry into the bladder, i t was decompressed of fluid and urine, and there was evidence of mild cystitis posteriorly and throug hout. The urine was not significantly cloudy, although there was some fibrinous debris around the bi lateral indwelling ureteral stents. I started by grasping the left ureteral stent and delivering it to the meatus. A Sensor wire was passed via the stent and navigated into the proximal ureter/putativ e renal pelvis. Over the Sensor wire, I passed a dual-lumen catheter into the distal ureter and perf ormed a retrograde pyelogram. Left retrograde pyelography: Using a 70:30 mixture of Omnipaque and saline initially, contrast was injected via the second lumen o f the dual-lumen catheter and did delineate the distal into the mid and proximal ureter before termin ating in a blind-ending sac. I advanced the dual-lumen catheter further into the proximal ureter jus t distal to the blind-ending pouch and again injected this time full-strength contrast, but no signif icant contrast would go beyond the blind-ending pouch. As a result, I removed the dual-lumen cathete r after passing a Bentson guidewire via the second lumen of the dual-lumen catheter and coiling it i n that pouch along with the Sensor wire. I removed the dual-lumen catheter and over the Bentson wire , passed a flexible ureteroscope into the proximal ureter. I surveyed it along the way and found wha t appeared to be a completely strictured UPJ/proximal ureteral opening and there was evidence of meta llic fragments posterolaterally within the ureter emanating through the mucosa. These were presumpti ve danielle from some prior procedure, but unfortunately, the family is unaware of any detailed prior abdominal surgical history, though he does apparently reportedly have a history of a gastrectomy. I thus use the ureteroscope and injected 5 cc of saline and aspirated it back to irrigate the proximal ureteral pouch, and this was sent for cytology as left renal aspirate/barbotage cytology. I then rem helga the ureteroscope leaving the Sensor wire in place after attempting to pass an angled Glidewire v ia 1 of the pits, I saw a within the ureteral stricture that I was hoping might allow dilation and pa ssage into the [place] collecting system. Unfortunately, despite multiple attempts with the angled Gl idewire, I was then able to gain access into anything more than a pouch beyond the area of the strict ure disease where the angled glidewire would coil. I attempted to pass a 5-Croatian ureteral access ca theter over the angled Glidewire into that pouch and inject contrast, but no contrast would fill even the pouch that the angled Glidewire seemed to navigate through. As a result, I removed the 5-Croatian ureteral access catheter along with the angled Glidewire and ultimately the Sensor wire. Meanwhile, I had grasped the right ureteral stent and delivered to the meatus. A Bentson guidewire was passed via the stent and coiled within the putative renal pelvis. Over the Bentson guidewire, I now passed a 5-Croatian ureteral access catheter into the distal ureter. I removed the Bentson guidewire and perf ormed a right retrograde pyelography study. Right retrograde pyelogram: Using a 70:30 mixture of Omnipaque and saline, injected contrast via the lumen of the 5-Croatian ureter al access catheter, and I was able to have contrast go through the distal into the mid and proximal u reter before entering the renal pelvis and its calices. There was evidence of mild pelviectasis and amwn-lq-[id number] caliectasis suggestive of some ongoing obstruction. The ureter was irregular along the course of its lumen with some areas of narrowing and potential obstruction at the body of L3 for at least a couple of centimeters in that area, as well as potentially within the pelvic inlet near th e ureterovesical junction. As a result, I removed the 5-Croatian ureteral access catheter after passin g a Sensor wire back into the collecting system as observed fluoroscopically coiled within the mid po le calyx. I then passed a 7-Croatian x 26 cm double-J ureteral stent over the Sensor wire into the gian al pelvis where a coil was observed fluoroscopically, and I have formed the coil cystoscopically visi ble within the bladder. This did allow the kidney to decompress of some slightly cloudy urine mixed with contrast. I then decompressed his bladder and turned my attention to the prostate. The prostat ic urethra had evidence of a lateral lobar hypertrophy that was kissing along with an elevated median bar and a small median lobe that was minimally intravesically projecting. There was a sulcus to the left lateral portion of the median lobe. As a result, I elected to perform a prostatic urethral lif t. I then switched for a 20-Croatian UroLift delivery device, which was navigated via his urethra into his bladder. Prostatic urethral lift procedure: I then switched the visual obturator for a UroLift delivery device and began targeting at the bladder neck 10 to 11 o'clock position on the left. The tip of the scope was brought 1.5-2 cm distal to the bladder neck and angled about 10 degrees laterally before the first pull of the trigger was used to deploy the needle through the surface of the prostate. An additional 10 degrees of compression was o btained of further compressing the tissue and ensuring the needle completely delivered through to the capsule. I then pulled the trigger, a second time delivering the capsular tab and partially retract ing the needle. A third pole of the trigger further tensioned the suture, before a fourth pull of th e trigger was done after angling the scope back toward the midline and advancing toward the bladder n eric about 2-3 mm until the white of the monofilament was centered in the delivery bay. At this point , the urethral in piece was affixed to the monofilament and it did seat very nicely with a nice rim o f bladder neck tissue between the implant and the bladder lumen within the prostatic urethra. The la teral lobar tissue in that location was adequately lateralized and in an excellent appearing position . As a result, I took a similar approach to placement of a second implant this time within the right lateral lobe about 1.5-2 cm distal to the bladder neck at the 10 to 11 o'clock position on the right side. Once this was successfully deployed, I then placed an additional implant at the level of veru montanum on the left before placing a fourth implant at the level of the verumontanum on the right. This did create a nice open prostatic fossa, but there was still some elevation of the median bar wit h a slight median lobe previously observed. As a result, a fifth implant was targeted within the lef t lateral sulcus to angle and move the median bar over to the right side. The fifth implant was depl oyed and did nicely compress the elevated median bar. However, there was still a component of the me reggie lobe closer into the bladder neck that was still partially obstructing; so, I utilized a 6th imp lant this time closer to the bladder neck within that median lobe similarly in the left lateral sulcu s, and this time was able to completely flatten it against the right lateral wall at the bladder neck where the implant was still situated nicely with a rim of tissue between that and the opening of the bladder creating a very widely open channel visible from the verumontanum into the bladder where the stent was visible with the bladder completely decompressed. There was minimal hematuria noted at th is point; so I refilled the bladder before removing the UroLith scope and replaced the scope with an 18-Croatian Ayala catheter. 15 cc of sterile water was placed in the balloon, and the catheter was con nected to a floor bag. The patient was taken out of the lithotomy position, awakened from general an esthesia, transferred to a stretcher, and then transferred to the recovery room in good condition. Complications: None. Discharge Disposition: He should follow up in the Urology Clinic in about 1 week time for active voi ding trial. I will discharge him with another week of antimicrobial, Cipro, to cover him while the c atheter is in place because of the UroLift. Should he successfully pass a voiding trial, we expect t hat he will have a significant degree of incontinence as my review of the urodynamics revealed severe detrusor instability at low volumes, which would likely result in urge incontinence or incontinence in the absence of urge given his prior stroke. He had adequate bladder contractility, but a slight d egree of striated sphincter dyssynergia consistent with the degree of the voiding dysfunction. As a result, how successfully he will void will be pending subsequent evaluation. His maximum detrusor co ntraction pressure was 70 cm of water. Subsequent followup should be established within a month to mahesh salgadouss the blind ending proximal ureteral/UPJ stricture/stenosis with foreign body observed to discus s the value of any percutaneous intervention, which would likely be of little value given the thinnin g of the cortex observed on the CT scan performed on his last admission back in September. Given his medical comorbidities, he may best be suited to chronic right ureteral stent exchanges in order to pr eserve his renal function as he would not be a reasonable candidate for any ureteral reconstruction on the right side. WR/MODL Voice ID: [id number] Report ID: [id number]
== END 2022-12-19 22:28 | disposition home or self-care (01) ==
LOC: OR 11:49
PROVIDERS: ATTEND Urology
PROC: 0T7D8DZ Dilation of Urethra with Intraluminal Device, Via Natural or Artificial Opening Endoscopic (ICD-10-PCS; 2022-12-19)
PROC: 0T768DZ Dilation of Right Ureter with Intraluminal Device, Via Natural or Artificial Opening Endoscopic (ICD-10-PCS; principal; 2022-12-19 14:30)
DX: N40.1 Benign prostatic hyperplasia with lower urinary tract symptoms (principal); N13.1 Hydronephrosis with ureteral stricture, not elsewhere classified; N13.5 Crossing vessel and stricture of ureter without hydronephrosis; R93.41 Abnormal radiologic findings on diagnostic imaging of renal pelvis, ureter, or bladder; I10 Essential (primary) hypertension; F03.90 Unspecified dementia, unspecified severity, without behavioral disturbance, psychotic disturbance, mood disturbance, and anxiety; Z86.73 Personal history of transient ischemic attack (TIA), and cerebral infarction without residual deficits
CPT/HCPCS: 87088; 87086; 87077; 87186; 51600; 74430; 52351; 52332; 52441; 52442 ×5; J2704; J2710; J2001; J1580; J3010; J3370; J1100; J7120; J7050; J2405; 88108; J0290

== ENCOUNTER 2023-06-12 08:31 | Day surgery (SDC) | payer OTHER ==
--- NOTE | 2023-05-28 12:33 | RAD REPORT ---
EXAM DESCRIPTION: Bertha Nesbitt (2 Views)05/28/2023 12:20 pm CLINICAL HISTORY: Preop for genitourinary surgery COMPARISON: October 2022 FINDINGS: The lungs appear clear of acute infiltrate. The heart is normal size IMPRESSION: No acute abnormalities displayed
[2023-05-28 12:53] LABS: Absolute Lymphocytes (CBC) 2.5 K/uL (0.7-4.9); Hematocrit 38.5 % (39.6-49.0); Lymphocytes % 34.5 % (15.3-44.8); MCV 84.9 fL (80-100); MPV 10.3 fL (7.6-11.3); Platelets 223 thou/uL (152-406); RBC Red Blood Cell Count 4.53 M/uL (4.33-5.43)
[2023-05-28 12:56] LABS: Protime INR 1.14
--- NOTE | 2023-05-30 17:43 | EKG ---
Test Date: 2023-05-28 Test Time: 11:45:42 Transfer Table Operator Helper: GALO MEASUREMENT RESULTS: Intervals: Rate: 58 WV: 170 QRSD: 74 QT: 438 QTc: 429 [place]: P: 76 WV: 170 QRS: 73 T: 34 INTERPRETIVE STATEMENTS: Sinus bradycardia Nonspecific ST and T wave abnormality Abnormal ECG Compared to ECG 11/01/2022 12:31:44 ST (T wave) deviation now present Short [place] interval no longer present Electronically Signed On 05-30-23 17:35:53 CDT by Everton Mehta
[2023-06-12] MEDS ORDERED: Ringers Lactate 1,000 ML IV ONE (09:09)
[2023-06-12] MEDS ORDERED: ASPIRIN 81 MG CHEWABLE TABLET PO ONE (10:00)
[2023-06-12] MEDS: CEFAZOLIN SODIUM 1 GM/VIAL ONE ×2 (10:53→11:13)
[2023-06-12] MEDS ORDERED: propofoL 200 MG/20 ML VIAL IV ONE ×2 (11:02→11:05)
[2023-06-12] MEDS ORDERED: FENTANYL CITR 100 MCG/2 ML ONE (11:03)
[2023-06-12] MEDS ORDERED: ROCURONIUM 50 MG/5 ML VIAL IV ONE (11:04)
[2023-06-12] MEDS ORDERED: MIDAZOLAM HCL 2 MG/2 ML INJ ONE (11:04)
[2023-06-12] MEDS ORDERED: LIDOCAINE 1% MPF 5 ML VIAL ONE (11:04)
[2023-06-12] MEDS ORDERED: ONDANSETRON 4 MG/2 ML VIAL ONE (11:04)
[2023-06-12] MEDS ORDERED: CODEINE 30MG/APAP 300MG TAB PO PRN (12:02)
[2023-06-12] MEDS ORDERED: PHENAZOPYRIDINE 100MG TAB PO ONE ×2 (12:02→13:13)
[2023-06-12 12:21] VITALS: O2SAT 100
[2023-06-12 13:13] VITALS: BP 152/81; TEMP 97.8
--- NOTE | 2023-06-12 15:19 | RAD REPORT ---
EXAM DESCRIPTION: RAD - Urethrocystogrphy Retrograde - 06/12/2023 2:01 pm CLINICAL HISTORY: RIGHT SIDED STENT EXCHANGE COMPARISON: None available. FINDINGS: Eight Images were sent to PACS, documenting needle positions during an image guided right ureteral stent exchange procedure. No radiologist was available for the procedure, nor will any image interpretation he provided. Please refer to the procedural report for additional details. Fluoroscopy time: 0.1 Minutes. IMPRESSION: Documentation of fluoroscopy utilization as above.
--- NOTE | 2023-06-12 20:47 | OP ---
Surgeon: LARISSA GARCIA Preoperative Diagnoses: 1.Right hydronephrosis. 2.Chronic kidney disease, stage 3B. Postoperative Diagnoses: 1.Right distal ureteral obstruction. 2.Chronic kidney disease, stage 3B. Principal Procedures: 1.Cystoscopy. 2.Bladder washout. 3.Right retrograde pyelography. 4.Right ureteral stent exchange. Indication For Procedure: Mr. Marmolejo presented via the hospital admission where he was observed to chung ve acute on chronic renal failure associated with bilateral hydronephrosis. 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 As a result, he had a stent placement and is undergoing chronic ureteral stent exchanges at [facility] s time. Procedure In Detail: The patient was consented in the preoperative holding area before being transfe rred to the operative suite where general anesthesia was induced. He was given Ancef 1 g IV antimicr obial prophylaxis and pneumo boots were provided for DVT prophylaxis. He was placed in lithotomy pos ition, padded and secured to the table appropriately. His genitalia were prepped with Hibiclens and he was draped in standard fashion. The case was begun using a 22-[place] rigid cystoscope to traverse the urethra and into the bladder with ease. The bladder was decompressed of fluid and some urine co ntaining particulate matter. The stent was noted emanating from the right ureteral orifice and had a degree of fibrinous debris on it. As a result, the distal coil of the stent was grasped, and it was delivered to the tip of the meatus. The proximal coil of the stent was left in the proximal ureter, and I passed a ClusterFlunk guidewire via the stent successfully coiling it within the putative upper lindsey e of the kidney. I then leaving the wire in place decompressed his bladder of some of the fibrinous debris within his urine, which may have been associated with some of the infection that we were treat ing preoperatively with antimicrobial therapy. I then placed a 5-[place]an ureteral access catheter rigoberto ngside the Sensor wire and performed a retrograde pyelogram. Right retrograde pyelography: Using a 70:30 mixture of Omnipaque and saline, contrast was injected v ia the lumen of the 5-[place]an ureteral access catheter, which was placed in the distal ureter beyond a point of palpable obstruction passing in the 5-[place] ureteral access catheter despite the presence of the prior stenting. Contrast did propagate up the distal into the mid and proximal ureter without sign of ureteronephrosis, and it entered the renal pelvis without signs of pelvocaliectasis or any s ignificant filling defect noted. The wire was in the upper pole calyx of the kidney. As a result, I removed the 5-[place] ureteral access catheter and backloaded the cystoscope over the Sensor wire bef ore passing a 6-[place]ome[place] x 26 cm double-J ureteral stent over the wire successfully coiling it within t he renal pelvis and upper pole calyx. An additional coil was formed within his bladder, and I again washed his bladder and the stent to remove any fibrinous debris that was within his upper tract and a round the stent currently in position newly placed. I then decompressed his bladder of fluid and uri ne before taking him out of the lithotomy position. He was then awakened from general anesthesia, tr ansferred to a stretcher, and then transferred to the recovery room in good condition. Complications: None. Discharge Disposition: A 68-year-old gentleman with history of CVA, hypertension, hyperlipidemia, ch ronic kidney disease stage 3B, chronic obstructive pulmonary disease, with history of acute on chroni c renal failure associated with bilateral hydronephrosis, left greater than right, associated with at rophy of the left kidney due to a blind-ending proximal ureteral pouch, likely secondary to stricture disease on the left, but with evidence of right distal ureteral stenosis likely causing the obstruct ion on the right side and hydronephrosis which has subsequently been well managed with placement of t he right ureteral stent. Followup should be established in the Urology Clinic in about 4 to 6 months where we will consider ne xt operative evaluation and management including right distal ureteral stricture disease management p otentially with balloon dilation and/or laser incision. WR/MODL Voice ID: [id number] Report ID: [id number]
== END 2023-06-12 15:05 | disposition home or self-care (01) ==
LOC: PRE 08:31 → OR 15:05
PROVIDERS: ATTEND Urology
PROC: 0T768DZ Dilation of Right Ureter with Intraluminal Device, Via Natural or Artificial Opening Endoscopic (ICD-10-PCS; principal; 2023-06-12 10:00)
DX: N13.30 Unspecified hydronephrosis (principal); N26.1 Atrophy of kidney (terminal); R31.0 Gross hematuria; N18.32 Chronic kidney disease, stage 3b; I10 Essential (primary) hypertension; E78.5 Hyperlipidemia, unspecified; Z86.73 Personal history of transient ischemic attack (TIA), and cerebral infarction without residual deficits
CPT/HCPCS: 93005; 87088; 85025; 87086; 80048; 36415; 85610; 87077; 87186; 71046; 74450; 51610; 52332; J2704; J2001; J2250; J3010; J2405; J7120; J0690

== ENCOUNTER 2023-12-04 06:30 | Day surgery (SDC) | payer OTHER ==
[2023-11-19 14:38] LABS: Absolute Lymphocytes (CBC) 2.4 K/uL (0.7-4.9); Hematocrit 37.8 % (39.6-49.0); Lymphocytes % 24.9 % (15.3-44.8); MCV 85.3 fL (80-100); MPV 10.7 fL (7.6-11.3); Platelets 248 thou/uL (152-406); RBC Red Blood Cell Count 4.44 M/uL (4.33-5.43)
[2023-11-19 14:48] LABS: Protime INR 1.13
--- NOTE | 2023-11-19 17:47 | RAD REPORT ---
EXAM DESCRIPTION: RAD - Chest Pa And Lat (2 Views) - 11/19/2023 2:17 pm CLINICAL HISTORY: PDRE OP FOR SURGERY hypertension COMPARISON: Chest Pa And Lat (2 Views) dated 05/28/2023; Chest Single View dated 11/01/2022; Abdomen 1 View (KUB) dated 10/27/2022; Chest Single View dated 10/23/2022 TECHNIQUE: PA and lateral views of the chest were obtained. FINDINGS: The lungs are clear. Heart size is normal and central vasculature is within normal limits. No pleural effusion or pneumothorax seen. No acute bony finding noted. IMPRESSION: No acute cardiopulmonary process.
--- NOTE | 2023-11-20 17:51 | EKG ---
Test Date: 2023-11-19 Test Time: 14:55:43 Business Continuity Director: LORI MEASUREMENT RESULTS: Intervals: Rate: 63 VT: 154 QRSD: 82 QT: 406 QTc: 415 [place]: P: 74 VT: 154 QRS: 15 T: 108 INTERPRETIVE STATEMENTS: Normal sinus rhythm Nonspecific T wave abnormality Abnormal ECG Compared to ECG 05/28/2023 11:45:42 T-wave abnormality now present Sinus bradycardia no longer present ST (T wave) deviation no longer present Electronically Signed On 11-20-23 17:49:05 CHANNELER by Everton Mehta
[2023-12-04] MEDS ORDERED: NA CHLORIDE 0.9% 500 ML ONE (06:52)
[2023-12-04] MEDS ORDERED: LIDOCAINE 1% MPF 5 ML VIAL ONE (07:22)
[2023-12-04] MEDS ORDERED: propofoL 200 MG/20 ML VIAL IV ONE (07:23)
[2023-12-04] MEDS ORDERED: MIDAZOLAM HCL 2 MG/2 ML INJ ONE (07:24)
[2023-12-04] MEDS ORDERED: FENTANYL CITR 100 MCG/2 ML ONE (07:24)
[2023-12-04 07:28] VITALS: O2SAT 100
[2023-12-04] MEDS ORDERED: Levofloxacin500mg IV 500 MG/100 ML BAG IV ONE (07:29)
[2023-12-04] MEDS ORDERED: ONDANSETRON 4 MG/2 ML VIAL ONE (08:00)
[2023-12-04] MEDS ORDERED: EPHEDRINE SULF 50 MG/ML VIAL ONE (08:02)
[2023-12-04] MEDS ORDERED: PHENAZOPYRIDINE 100MG TAB PO ONE (08:33)
--- NOTE | 2023-12-04 08:50 | RAD REPORT ---
EXAM DESCRIPTION: RAD - Fluoroscopy <1 Hour - 12/04/2023 8:14 am CLINICAL HISTORY: STENT REMOVAL , RETROGRADE COMPARISON: None available. FINDINGS: Eleven Images were sent to PACS, documenting fluoroscopy use during a stent removal proced ure. No radiologist was available for the procedure, nor will any image interpretation he provided. P jhon refer to the procedural report for additional details. Fluoroscopy time: 0.26 Minutes. IMPRESSION: Documentation of fluoroscopy utilization as above.
--- NOTE | 2023-12-04 09:03 | OP ---
Surgeon: LARISSA GARCIA Preoperative Diagnoses: 1. Right hydronephrosis. 2. Right obstructive uropathy. 3. Urinary retention. 4. Status post UroLift with better complete bladder emptying. 5. Chronic kidney disease, stage IIIB, creatinine 2.03 with EGFR 35. Postoperative Diagnoses: 1. No hydronephrosis or upper tract obstructive uropathy identified. 2. Chronic kidney disease, stage IIIB. 3. Status post UroLift now with better complete bladder emptying. Principal Procedures: 1. Cystoscopy. 2. Right retrograde pyelography with diuresis studies. 3. Right ureteral stent extraction. Indication For Procedure: Mr. Marmolejo initially was seen as an inpatient consult with [id number] renal failure associated with large volume incomplete bladder emptying and bilateral hydronephrosis. Eventually, he was found to have stenosis of the proximal left ureter that resulted in atrophy of the left kidney, but had stenting of the right side to improve his renal function to its new baseline creatinine of 2.03 with EGFR 35. He has been managed with ureteral stent exchanges given his chronic medical comorbidities, and he presents today for followup evaluation and stent exchange if appropriate. Procedure In Detail: The patient was consented in the preoperative holding area before being transferred to the operative suite where general anesthesia was induced. He was given Levaquin 500 mg IV antimicrobial prophylaxis, and pneumo boots were provided for DVT prophylaxis. He was placed in the lithotomy position, padded and secured to the table appropriately, and his genitalia were prepped with Hibiclens and draped in standard fashion. The case was begun using a 22-Indonesian rigid cystoscope to traverse the urethra and into the bladder with ease. The bladder was decompressed of fluid and some cloudy urine and then irrigated briefly to clear it of all of the intravesical debris. The stent was noted to emanate from the right ureteral orifice, and the coil of the stent was grasped using an alligator grasper. The tip of the stent was delivered to the meatus leaving the proximal coil within the proximal ureter. I then attempted to pass the Sensor wire via the stent, but the proximal coil would not unfurl resulting in the inability to place the wire appropriately into the collecting system. As a result, I removed the stent and the wire and replaced the cystoscope back into his bladder. I used a 5-Indonesian ureteral access catheter to intubate the right ureteral orifice and performed a retrograde pyelography study. Right retrograde pyelography: Using a 70:30 mixture of Omnipaque and saline, contrast was injected via the lumen of the 5-Indonesian ureteral access catheter and did propagate up the distal into the mid and proximal ureter without signs of filling defect or obstruction. The contrast did enter the renal pelvis and filled each of the calyces again without evidence of filling defect. After distending the calices, where there was no significant pelvocaliectasis noted, I then observed for the next several minutes for excretion of the contrast. Over approximately 5 minutes of observation, it did appear that about 50% of the contrast was excreted. As a result, I removed the Sensor wire, which I placed into the collecting system and decompressed his bladder and removed the cystoscope and continued to observe for an additional 5 minutes. During that time, approximately 10 minutes from the initial retrograde instillation of contrast, nearly complete elimination of contrast was observed, with only a small residual amount of contrast present within the lower pole calyx. As a result, with over 80% of contrast excreted within 10 minutes, this was indicative of the absence of obstruction; so I elected not to place another ureteral stent. As a result, the patient was taken out of the lithotomy position, awakened from general anesthesia, transferred to a stretcher, and then transferred to the recovery room in good condition. Complications: None. Discharge Disposition: I would like to see him back in the Urology Clinic in about 4 to 6 weeks' time with a renal ultrasound obtained prior to followup, but no sooner than 1 month from now. The purpose of the ultrasound would be to reassess the right kidney for ongoing hydronephrosis, but also to assess the ongoing expected atrophy of the left kidney without development of any abnormal renal masses. Subsequently, the patient should follow up in the Urology Clinic where we will also reassess his bladder emptying and consider initiation of Myrbetriq or gentle anticholinergic therapy to manage his detrusor instability related incontinence, which was an issue brought up to me today by his daughter. In addition to the renal ultrasound, I would also like the patient to obtain an another serum BMP at the time of the ultrasound approximately 1 month following today's surgical event. BIPIN/MODL Voice ID: [id number] Report ID: [id number] [facility]
[2023-12-04 10:54] VITALS: BP 139/98; TEMP 96.7
== END 2023-12-04 10:25 | disposition home or self-care (01) ==
LOC: OR 06:30
PROVIDERS: ATTEND Urology
PROC: 0TP98DZ Removal of Intraluminal Device from Ureter, Via Natural or Artificial Opening Endoscopic (ICD-10-PCS; principal; 2023-12-04 07:30)
DX: R33.9 Retention of urine, unspecified (principal); N26.1 Atrophy of kidney (terminal); N40.1 Benign prostatic hyperplasia with lower urinary tract symptoms; N18.32 Chronic kidney disease, stage 3b
CPT/HCPCS: 93005; 87088; 85025; 87086; 80048; 36415; 85610; 85730; 87077 ×2; 87186 ×2; 71046; 52310; J2704; J2001; J3010; J2405; J7040; 76000; J2250

== ENCOUNTER → 2024-01-20 | Emergency (ER) | payer OTHER ==
--- OUTSIDE RECORDS SUMMARY | 2024-01-20 12:42 | XMS REPORT | Continuity of Care Document ---
Author Name Unknown Address [address] [facility] [address] [place] [address] [facility] Address [address] [facility] [address] [place] [address] Care Team Providers Care Video Poker Floorman Name Role Phone No , Pcp Primary Care Physician Unavailab Leticia Lewis Attending Clinician Unavail able Barrie Real Attending Clinician Unavailable Javier Weinstein Rahil Attending Clinician Unavail able [id number] Attending Clinician Unavailable TARA NIEVES Attending Clinician Unavailable Lewis Mccarty MD Attending Clinician [phone] JAVIER WEINSTEIN Attending Clinician Unavailable Shashi Lee MD Attending Clinician [phone] LEWIS MCCARTY Attending Clinician Unav JAZZ Roberson Attending Clinician Unavailable Verónica KERR, [place] Attending Clinician UnaDIOR White Attending Clinician Unava ilYONAS Anaya Attending Clinician Unavailable MARISELA GONZALEZ Attending Clinician Un available NOHEMY KHALIL Attending Clinician Unav ailable Ige-[place]_J_AH Attending Clinician Unavailable Javier Weinstein Rahil Admitting Clinician Unavail able [id number] Admitting Clinician Unavailable SANTA BARRIE Admitting Clinician Unavailable JAZZ ALAMO Admitting Clinician Unavailable YONAS REYES Admitting Clinician Unavailable Ige-[place]_J_AH Admitting Clinician Unavailable Payers Payer Name Policy Type Policy Number Effective Date Expirati on Date Source [employer] [id number] 2022 00:00:00 HUMM HUMM [id number] [employer] MEDICARE ADVANTAGE HMO [id number] 2022 00:00:00 [employer] MEDICARE 53 [id number] 2022 00:00:00 [facility] [employer] MEDICARE 53 [id number] 2020 00:00:00 [facility] [id number] [facility] (MEDICARE REPLACEMENT/ADV ANTAGE - HMO) [id number] Problems Condition Name Condition Details Condition Category Status Onset Date Resolution Date Last Treatment Date Treating Clinician Comments Source Parkinson' s disease Parkinson' s disease Disease Active 04-25 00:00: 00 [facility] Seizure Seizure Disease Active 04-25 00:00: 00 [facility] Lewy body dementia Lewy body dementia Disease Active 04-25 00:00: 00 [facility] Depression Depression Disease Active 04-25 00:00: 00 [facility] Physical deconditio patricia Physical deconditio patricia Disease Active 04-25 00:00: 00 [facility] [id number] Renal atrophy Problem [facility] [id number] S/P ureteral stent placement Problem [facility] [id number] Mixed hyperlipid emia Problem [facility] 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 Hemiparesi s of right dominant side as late effect of cerebral infarction Problem [facility] Dementia with behavioral disturbanc e +6th digit eff 07/29/22*De mentia, unspecifie d, with behavioral disturbanc e Problem [facility] Chronic kidney disease stage 3B (disorder) Stage 3b chronic kidney disease Problem [facility] History of transient ischemic attack History of transient ischemic attack Problem [facility] Chronic kidney disease stage 3 +5th digit eff 07/29/20*Ch ronic kidney disease, stage 3 Problem [facility] [id number] Tobacco abuse counseling Problem [facility] Chronic obstructiv e pulmonary disease Chronic obstructiv e pulmonary disease Problem [facility] [id number] Hyperlipid emia, unspecifie d hyperlipid emia type Problem [facility] [id number] Encounter for immunizati on Problem [facility] [id number] Cerebrovas cular accident (CVA) of right thalamus Problem [facility] [id number] NPH (normal pressure hydrocepha sebas) Problem [facility] Chronic pain Other chronic pain Problem [facility] [id number] Dysuria Problem [facility] Eruption of skin Groin rash Problem Commo n [facility] [id number] Bloody drainage from penis Problem [facility] [id number] Urinary hesitancy Problem [facility] [id number] Hematuria, unspecifie d type Problem [facility] Bladder incontinen ce Urinary incontinen ce, unspecifie d type Problem [facility] Chronic kidney disease due to hypertensi on Hypertensi ve CKD (chronic kidney disease) Problem Common [facility] [id number] Agitation Problem Comm on [facility] [id number] Ataxic gait Problem [facility] Chronic kidney disease Chronic kidney disease Problem [facility] [id number] Depression with anxiety Problem [facility] [id number] Vascular dementia without behavioral disturbanc e Problem [facility] [id number] H/O: CVA (cerebrova scular accident) Problem [facility] [id number] Encounter for therapeuti c drug level monitoring Problem Common [facility] [id number] Essential hypertensi on Problem [facility] [id number] NIKITA (generaliz ed anxiety disorder) Problem [facility] [id number] Kidney filling defect Problem [facility] 55590937 Moderate major depression , single episode Problem [facility] [id number] Benign prostatic hyperplasi a with lower urinary tract symptoms Problem [facility] Chronic hepatitis C Chronic viral hepatitis C Problem Common [facility] 97626438 Constipati on, unspecifie d constipati on type Problem [facility] Lower urinary tract symptoms due to benign prostatic hypertroph y Benign localized prostatic hyperplasi a with lower urinary tract symptoms (LUTS) Problem [facility] Hydronephr osis with ureteral stricture Hydronephr osis with ureteral stricture Problem [facility] 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 Problem Common [facility] Dementia Dementia Problem [facility] Bladder dysfunctio n Bladder dysfunctio n Problem [facility] Urge incontinen ce of urine Urgency incontinen ce Problem [facility] [id number] Detrusor instabilit y Problem [facility] 635684463 Atrophy of left kidney Problem [facility] 98266569 Bilateral hydronephr osis Problem [facility] [id number] Urinary retention Problem [facility] [id number] Hematuria, gross Problem [facility] 31044421 Ureteral obstructio n, right Problem [facility] Allergies, Adverse Reactions, Alerts Allergy Name Allergy Type Status Severity Reaction(s) Onset Date Inactive Date Treating Clinician Comments Source NKA Allergy Active 05-22 12:30: 40 [facility] NKA Allergy Active 05-22 12:30: 40 [facility] NKA Allergy Active 05-22 12:30: 40 [facility] No Known Allergie s DA Active U 12-09 00:00: 00 [facility] No Known Allergie s DA Active U 12-09 00:00: 00 [facility] Social History Social Habit Start Date Stop Date Quantity Comments Source History of Tobacco Use [facility] Sex Assigned At [facility] Sexual orientation U [facility] Cigarettes smoked current (pack per day) - Reported 2023-12-24 00:00:00 2023-12-24 00:00:00 [facility] Cigarette pack-years 2023-12-24 00:00:00 2023-12-24 00:00:00 [facility] Tobacco use and exposure 2023-12-24 00:00:00 2023-12-24 00:00:00 Smokeless tobacco non-user [facility] Alcoholic beverage intake 2023-12-24 00:00:00 2023-12-24 00:00:00 .86 /d [facility] Tobacco Comment 2023-12-24 00:00:00 2023-12-24 00:00:00 Smoking History Packs/day: 1 PPD. Recorded:02/15/20 21 [facility] Exposure to SARS-CoV-2 (event) 2022-05-26 00:00:00 2022-06-05 13:46:00 Not sure [facility] History of Social function 2021-11-23 00:00:00 2021-11-23 00:00:00 [facility] Smoking Status Start Date Stop Date Source Former Smoker 2023-12-25 00:00:00 2023-12-25 00:00:00 [facility] Current Smoker 2023-07-19 00:00:00 [facility] Medications Ordered Medication Name Filled Medication Name Start Date Stop Date Current Medication? Ordering Clinician Indication Dosage Frequency Signature (SIG) Comments Components Source albuterol 108 (90 Base) MCG/ACT inhaler 12-24 09:27: 12 Yes INHALE TWO PUFFS BY MOUTH FOUR TIMES DAILY NEEDED (BULK) for [facility] cholecalcif mariel 50 MCG (1999 [place]) capsule 12-24 09:27: 12 Yes Take 2,000 Units by mouth every 7 (seven) days. DAILY AT 9 AM [facility] carbidopa-l evodopa CR (Sinemet CR) 25-100 MG ER tablet 12-24 00:00: 00 06-22 04:59 :00 Yes [id number] 2{tbl} Q.99875358 [id number] 3D Take 2 tablets by mouth in the morning and 2 tablets at noon and 2 tablets in the evening. Do not crush, chew, or split.. [facility] donepezil (Aricept) 5 MG tablet 12-07 00:00: 00 Yes [id number] 5mg Take 1 tablet (5 mg total) by mouth every night. [facility] memantine (Namenda) 10 MG tablet 12-07 00:00: 00 Yes [id number] 10mg Q.5D Take 1 tablet (10 mg total) by mouth in the morning and 1 tablet (10 mg total) in the evening. [facility] carbidopa-l evodopa (Sinemet) 25-100 MG tablet 12-07 00:00: 00 12-24 00:00 :00 No [id number] 1.5{tbl } Q.83991380 [id number] 3D Take 1.5 tablets by mouth in the morning and 1.5 tablets at noon and 1.5 tablets in the evening. [facility] levoFLOXaci n 500 MG levoFLOXaci n 500 MG 12-03 00:00: 00 No 1{table t} QD levoFLOXac in 500 MG levoFLOXaci n 500 MG levoFLOXaci n 500 MG - 00:00: 00 No 1{table t} QD levoFLOXac in 500 MG levoFLOXaci n 500 MG levoFLOXaci n 500 MG 0 2- 00:00: 00 No 1{table t} QD levoFLOXac in 500 MG levoFLOXaci n 500 MG levoFLOXaci n 500 MG 2- 00:00: 00 No 1{table t} QD levoFLOXac in 500 MG levoFLOXaci n 500 MG levoFLOXaci n 500 MG 2- 00:00: 00 No 1{table t} QD levoFLOXac in 500 MG levoFLOXaci n 500 MG levoFLOXaci n 500 MG 4-0 2- 00:00: 00 No 1{table t} QD levoFLOXac in 500 MG levoFLOXaci n 500 MG levoFLOXaci n 500 MG 4-0 2- 00:00: 00 No 1{table t} QD levoFLOXac in 500 MG levoFLOXaci n 500 MG levoFLOXaci n 500 MG 4-0 2- 00:00: 00 No 1{table t} QD levoFLOXac in 500 MG levoFLOXaci n 500 MG levoFLOXaci n 500 MG 4-0 2-05 00:00: 00 No 1{table t} QD levoFLOXac in 500 MG donepezil (Aricept) 5 MG tablet 2022-10 00:00: 00 Yes [id number] 5mg Take 1 tablet (5 mg total) by mouth every night. [facility] memantine (Namenda) 10 MG tablet 2022-10 00:00: 00 Yes [id number] 10mg Q.5D Take 1 tablet (10 mg total) by mouth in the morning and 1 tablet (10 mg total) in the evening. [facility] donepezil (Aricept) 5 MG tablet 2022-10 00:00: 00 Yes [id number] 5mg Take 1 tablet (5 mg total) by mouth every night. [facility] memantine (Namenda) 10 MG tablet 2022-10 00:00: 00 Yes [id number] 10mg Q.5D Take 1 tablet (10 mg total) by mouth in the morning and 1 tablet (10 mg total) in the evening. [facility] donepezil (Aricept) 5 MG tablet 2022-10 00:00: 00 Yes [id number] 5mg Take 1 tablet (5 mg total) by mouth every night. [facility] memantine (Namenda) 10 MG tablet 2022-10 00:00: 00 Yes [id number] 10mg Q.5D Take 1 tablet (10 mg total) by mouth in the morning and 1 tablet (10 mg total) in the evening. [facility] Vimpat 100 MG tablet 2022-10 00:00: 00 Yes [id number] 100mg Q.5D Take 1 tablet (100 mg total) by mouth in the morning and 1 tablet (100 mg total) in the evening. [facility] donepezil (Aricept) 5 MG tablet 2022-10 00:00: 00 Yes [id number] 5mg Take 1 tablet (5 mg total) by mouth every night. [facility] memantine (Namenda) 10 MG tablet 2022-10 00:00: 00 Yes [id number] 10mg Q.5D Take 1 tablet (10 mg total) by mouth in the morning and 1 tablet (10 mg total) in the evening. [facility] Vimpat 100 MG tablet 2022-10 00:00: 00 Yes [id number] 100mg Q.5D Take 1 tablet (100 mg total) by mouth in the morning and 1 tablet (100 mg total) in the evening. [facility] Vimpat 100 MG tablet 2022-10 00:00: 00 Yes [id number] 100mg Q.5D Take 1 tablet (100 mg total) by mouth in the morning and 1 tablet (100 mg total) in the evening. [facility] carbidopa-l evodopa (Sinemet) 25-100 MG tablet 2022-10 00:00: 00 08-02 04:59 :00 No [id number] 1.5{tbl } Q.47976649 [id number] 3D Take 1.5 tablets by mouth in the morning and 1.5 tablets at noon and 1.5 tablets in the evening. [facility] carbidopa-l evodopa (Sinemet) 25-100 MG tablet 2022-10 0 00:00: 00 08-02 04:59 :00 No [id number] 1.5{tbl } Q.27586315 [id number] 3D Take 1.5 tablets by mouth in the morning and 1.5 tablets at noon and 1.5 tablets in the evening. [facility] carbidopa-l evodopa (Sinemet) 25-100 MG tablet 2022-10 0- 00:00: 00 08-02 04:59 :00 No [id number] 1.5{tbl } Q.55039639 [id number] 3D Take 1.5 tablets by mouth in the morning and 1.5 tablets at noon and 1.5 tablets in the evening. [facility] carbidopa-l evodopa (Sinemet) 25-100 MG tablet 2022-10 0 00:00: 00 08-02 04:59 :00 No [id number] 1.5{tbl } Q.00628766 [id number] 3D Take 1.5 tablets by mouth in the morning and 1.5 tablets at noon and 1.5 tablets in the evening. [facility] Vimpat 100 MG tablet 2022-10 0 00:00: 00 10-02 05:59 :00 No [id number] 100mg Q.5D Take 1 tablet (100 mg total) by mouth in the morning and 1 tablet (100 mg total) in the evening. [facility] Vimpat 100 MG tablet 2022-10 0 00:00: 00 10-02 05:59 :00 No [id number] 100mg Q.5D Take 1 tablet (100 mg total) by mouth in the morning and 1 tablet (100 mg total) in the evening. [facility] Vimpat 100 MG tablet 2022-10 00:00: 00 08-02 00:00 :00 No [id number] 100mg Q.5D Take 1 tablet (100 mg total) by mouth in the morning and 1 tablet (100 mg total) in the evening. [facility] donepezil (Aricept) 5 MG tablet 2022-10 00:00: 00 08-02 00:00 :00 No [id number] 5mg Take 1 tablet (5 mg total) by mouth every night. [facility] memantine (Namenda) 10 MG tablet 2022-10 00:00: 00 08-02 00:00 :00 No [id number] 10mg Q.5D Take 1 tablet (10 mg total) by mouth in the morning and 1 tablet (10 mg total) in the evening. [facility] carbidopa-l evodopa (Sinemet) 25-100 MG tablet 2022-10 0 00:00: 00 08-02 00:00 :00 No [id number] 1.5{tbl } Q.98073727 [id number] 3D Take 1.5 tablets by mouth in the morning and 1.5 tablets at noon and 1.5 tablets in the evening. [facility] Vimpat 100 MG tablet 2022-10 0-05 00:00: 00 08-02 00:00 :00 No [id number] 100mg Q.5D Take 1 tablet (100 mg total) by mouth in the morning and 1 tablet (100 mg total) in the evening. [facility] donepezil (Aricept) 5 MG tablet 2022-10 0- 00:00: 00 08-02 00:00 :00 No [id number] 5mg Take 1 tablet (5 mg total) by mouth every night. [facility] memantine (Namenda) 10 MG tablet 2022-10 0 00:00: 00 08-02 00:00 :00 No [id number] 10mg Q.5D Take 1 tablet (10 mg total) by mouth in the morning and 1 tablet (10 mg total) in the evening. [facility] carbidopa-l evodopa (Sinemet) 25-100 MG tablet 2022-10 0 00:00: 00 08-02 00:00 :00 No [id number] 1.5{tbl } Q.21522916 [id number] 3D Take 1.5 tablets by mouth in the morning and 1.5 tablets at noon and 1.5 tablets in the evening. [facility] Vimpat 100 MG tablet 2022-10 0 00:00: 00 08-02 00:00 :00 No [id number] 100mg Q.5D Take 1 tablet (100 mg total) by mouth in the morning and 1 tablet (100 mg total) in the evening. [facility] donepezil (Aricept) 5 MG tablet 2022-10 0-05 00:00: 00 08-02 00:00 :00 No [id number] 5mg Take 1 tablet (5 mg total) by mouth every night. [facility] memantine (Namenda) 10 MG tablet 2022-10 0-05 00:00: 00 08-02 00:00 :00 No [id number] 10mg Q.5D Take 1 tablet (10 mg total) by mouth in the morning and 1 tablet (10 mg total) in the evening. [facility] carbidopa-l evodopa (Sinemet) 25-100 MG tablet 2022-10 0-05 00:00: 08-02 00:00 :00 No [id number] 1.5{tbl } Q.18010489 [id number] 3D Take 1.5 tablets by mouth in the morning and 1.5 tablets at noon and 1.5 tablets in the evening. [facility] Bactrim 400-80 MG Bactrim 400-80 MG 2023-0 8-12 00:00: 00 No 1{table t} BID Bactrim 400-80 MG Bactrim 400-80 MG Bactrim 400-80 MG 2023-0 8-12 00:00: 00 No 1{table t} BID Bactrim 400-80 MG Bactrim 400-80 MG Bactrim 400-80 MG 2023-0 8-12 00:00: 00 No 1{table t} BID Bactrim 400-80 MG Bactrim 400-80 MG Bactrim 400-80 MG 2023-0 8-12 00:00: 00 No 1{table t} BID Bactrim 400-80 MG Bactrim 400-80 MG Bactrim 400-80 MG 2023-0 8-12 00:00: 00 No 1{table t} BID Bactrim 400-80 MG Bactrim 400-80 MG Bactrim 400-80 MG 2023-0 8-12 00:00: 00 No 1{table t} BID Bactrim 400-80 MG Bactrim 400-80 MG Bactrim 400-80 MG 2023-0 8-12 00:00: 00 No 1{table t} BID Bactrim 400-80 MG Bactrim 400-80 MG Bactrim 400-80 MG 2023-0 8-12 00:00: 00 No 1{table t} BID Bactrim 400-80 MG Bactrim 400-80 MG Bactrim 400-80 MG 2023-0 8-12 00:00: 00 No 1{table t} BID Bactrim 400-80 MG Bactrim 400-80 MG Bactrim 400-80 MG 2023-0 8-12 00:00: 00 No 1{table t} BID Bactrim 400-80 MG Bactrim 400-80 MG Bactrim 400-80 MG 2023-0 8-12 00:00: 00 No 1{table t} BID Bactrim 400-80 MG Bactrim 400-80 MG Bactrim 400-80 MG 2023-0 8-12 00:00: 00 No 1{table t} BID Bactrim 400-80 MG Bactrim 400-80 MG Bactrim 400-80 MG 2023-0 8-12 00:00: 00 No 1{table t} BID Bactrim 400-80 MG Bactrim 400-80 MG Bactrim 400-80 MG 2023-0 8-12 00:00: 00 No 1{table t} BID Bactrim 400-80 MG Bactrim 400-80 MG Bactrim 400-80 MG 2023-0 8-12 00:00: 00 No 1{table t} BID Bactrim 400-80 MG Bactrim 400-80 MG Bactrim 400-80 MG 2023-0 8-12 00:00: 00 No 1{table t} BID Bactrim 400-80 MG Bactrim 400-80 MG Bactrim 400-80 MG 2023-0 8-12 00:00: 00 No 1{table t} BID Bactrim 400-80 MG Bactrim 400-80 MG Bactrim 400-80 MG 2023-0 8-12 00:00: 00 No 1{table t} BID Bactrim 400-80 MG Bactrim 400-80 MG Bactrim 400-80 MG 2023-0 8-12 00:00: 00 No 1{table t} BID Bactrim 400-80 MG Bactrim 400-80 MG Bactrim 400-80 MG 2023-0 8-12 00:00: 00 No 1{table t} BID Bactrim 400-80 MG Bactrim 400-80 MG Bactrim 400-80 MG 2023-0 8-12 00:00: 00 No 1{table t} BID Bactrim 400-80 MG Bactrim 400-80 MG Bactrim 400-80 MG 2023-0 8-12 00:00: 00 No 1{table t} BID Bactrim 400-80 MG Bactrim 400-80 MG Bactrim 400-80 MG 2023-0 8-12 00:00: 00 No 1{table t} BID Bactrim 400-80 MG Vimpat 100 MG tablet 3-0 6- 00:00: 08-02 00:00 :00 No [id number] 100mg Q.5D Take 1 tablet (100 mg total) by mouth in the morning and 1 tablet (100 mg total) in the evening. [facility] Vimpat 100 MG tablet 04-24 00:00: 08-02 00:00 :00 No [id number] 100mg Q.5D Take 1 tablet (100 mg total) by mouth in the morning and 1 tablet (100 mg total) in the evening. [facility] Vimpat 100 MG tablet 04-24 00:00: 00 08-02 00:00 :00 No [id number] 100mg Q.5D Take 1 tablet (100 mg total) by mouth in the morning and 1 tablet (100 mg total) in the evening. [facility] Vimpat 100 MG tablet 04-24 00:00: 00 08-02 00:00 :00 No [id number] 100mg Q.5D Take 1 tablet (100 mg total) by mouth in the morning and 1 tablet (100 mg total) in the evening. [facility] Vimpat 100 MG tablet 04-24 00:00: 06-24 04:59 :00 No [id number] 100mg Q.5D Take 1 tablet (100 mg total) by mouth in the morning and 1 tablet (100 mg total) in the evening. [facility] memantine (Namenda) 10 MG tablet 01-25 00:00: 00 Yes [id number] 10mg Q.5D Take 1 tablet (10 mg total) by mouth in the morning and 1 tablet (10 mg total) in the evening. [facility] carbidopa-l evodopa (Sinemet) 25-100 MG tablet 01-25 00:00: 00 01-25 04:59 :00 No [id number] 1{tbl} Q.74905209 [id number] 3D Take 1 tablet by mouth in the morning and 1 tablet at noon and 1 tablet in the evening. [facility] memantine (Namenda) 10 MG tablet 01-25 00:00: 00 08-02 00:00 :00 No [id number] 10mg Q.5D Take 1 tablet (10 mg total) by mouth in the morning and 1 tablet (10 mg total) in the evening. [facility] carbidopa-l evodopa (Sinemet) 25-100 MG tablet 330 00:00: 00 08-02 00:00 :00 No [id number] 1{tbl} Q.74778197 [id number] 3D Take 1 tablet by mouth in the morning and 1 tablet at noon and 1 tablet in the evening. [facility] memantine (Namenda) 10 MG tablet 330 00:00: 00 08-02 00:00 :00 No [id number] 10mg Q.5D Take 1 tablet (10 mg total) by mouth in the morning and 1 tablet (10 mg total) in the evening. [facility] carbidopa-l evodopa (Sinemet) 25-100 MG tablet 30 00:00: 00 08-02 00:00 :00 No [id number] 1{tbl} Q.21836661 [id number] 3D Take 1 tablet by mouth in the morning and 1 tablet at noon and 1 tablet in the evening. [facility] memantine (Namenda) 10 MG tablet 30 00:00: 00 08-02 00:00 :00 No [id number] 10mg Q.5D Take 1 tablet (10 mg total) by mouth in the morning and 1 tablet (10 mg total) in the evening. [facility] carbidopa-l evodopa (Sinemet) 25-100 MG tablet 330 00:00: 00 08-02 00:00 :00 No [id number] 1{tbl} Q.19138206 [id number] 3D Take 1 tablet by mouth in the morning and 1 tablet at noon and 1 tablet in the evening. [facility] memantine (Namenda) 10 MG tablet 330 00:00: 00 08-02 00:00 :00 No [id number] 10mg Q.5D Take 1 tablet (10 mg total) by mouth in the morning and 1 tablet (10 mg total) in the evening. [facility] carbidopa-l evodopa (Sinemet) 25-100 MG tablet 3-30 00:00: 00 08-02 00:00 :00 No [id number] 1{tbl} Q.63088629 [id number] 3D Take 1 tablet by mouth in the morning and 1 tablet at noon and 1 tablet in the evening. [facility] Power Scooter Power Scooter 3-0 3-20 00:00: 00 No Power Scooter Power Scooter Power Scooter 3-0 3-20 00:00: 00 No Power Scooter Power Scooter Power Scooter 3-0 3-20 00:00: 00 No Power Scooter Power Scooter Power Scooter 3-0 320 00:00: 00 No Power Scooter Power Scooter Power Scooter 3-0 320 00:00: 00 No Power Scooter Power Scooter Power Scooter 3-0 320 00:00: 00 No Power Scooter Power Scooter Power Scooter 3-0 3-20 00:00: 00 No Power Scooter Power Scooter Power Scooter 3-0 3-20 00:00: 00 No Power Scooter Power Scooter Power Scooter 3-0 3-20 00:00: 00 No Power Scooter Power Scooter Power Scooter 3-0 3-20 00:00: 00 No Power Scooter Power Scooter Power Scooter 3-0 320 00:00: 00 No Power Scooter Power Scooter Power Scooter 3-0 3-20 00:00: 00 No Power Scooter Power Scooter Power Scooter 3-0 3-20 00:00: 00 No Power Scooter Power Scooter Power Scooter 3-0 3-20 00:00: 00 No Power Scooter Power Scooter Power Scooter 3-0 3-20 00:00: 00 No Power Scooter Power Scooter Power Scooter 3-0 3-20 00:00: 00 No Power Scooter Power Scooter Power Scooter 3-0 3-20 00:00: 00 No Power Scooter Power Scooter Power Scooter 3-0 3-20 00:00: 00 No Power Scooter Power Scooter Power Scooter 3-20 00:00: 00 No Power Scooter Power Scooter Power Scooter 3-20 00:00: 00 No Power Scooter Power Scooter Power Scooter 3-20 00:00: 00 No Power Scooter Power Scooter Power Scooter 3-20 00:00: 00 No Power Scooter Power Scooter Power Scooter 3-20 00:00: 00 No [employer] carbidopa-l evodopa (Sinemet) 25-100 MG tablet 06-05 00:00: 00 06-06 04:59 :00 No [id number] 1{tbl} Q.17551458 [id number] 3D Take 1 tablet by mouth in the morning and 1 tablet at noon and 1 tablet in the evening. [facility] levETIRAcet am (Keppra) 500 MG tablet 05-06 00:00: 00 Yes [id number] 500mg Q.5D Take 1 tablet (500 mg total) by mouth in the morning and 1 tablet (500 mg total) in the evening. [facility] memantine (Namenda) 10 MG tablet 05-06 00:00: 00 Yes [id number] 10mg Q.5D Take 1 tablet (10 mg total) by mouth in the morning and 1 tablet (10 mg total) in the evening. [facility] levETIRAcet am (Keppra) 500 MG tablet 05-06 00:00: 00 Yes [id number] 500mg Q.5D Take 1 tablet (500 mg total) by mouth in the morning and 1 tablet (500 mg total) in the evening. [facility] levETIRAcet am (Keppra) 500 MG tablet 05-06 00:00: 00 Yes [id number] 500mg Q.5D Take 1 tablet (500 mg total) by mouth in the morning and 1 tablet (500 mg total) in the evening. [facility] levETIRAcet am (Keppra) 500 MG tablet 05-06 00:00: 00 Yes [id number] 500mg Q.5D Take 1 tablet (500 mg total) by mouth in the morning and 1 tablet (500 mg total) in the evening. [facility] levETIRAcet am (Keppra) 500 MG tablet 05-06 00:00: 00 Yes [id number] 500mg Q.5D Take 1 tablet (500 mg total) by mouth in the morning and 1 tablet (500 mg total) in the evening. [facility] levETIRAcet am (Keppra) 500 MG tablet 05-06 00:00: 00 Yes [id number] 500mg Q.5D Take 1 tablet (500 mg total) by mouth in the morning and 1 tablet (500 mg total) in the evening. [facility] levETIRAcet am (Keppra) 500 MG tablet 05-06 00:00: 00 Yes [id number] 500mg Q.5D Take 1 tablet (500 mg total) by mouth in the morning and 1 tablet (500 mg total) in the evening. [facility] levETIRAcet am (Keppra) 500 MG tablet 05-06 00:00: 00 Yes [id number] 500mg Q.5D Take 1 tablet (500 mg total) by mouth in the morning and 1 tablet (500 mg total) in the evening. [facility] levETIRAcet am (Keppra) 500 MG tablet 05-06 00:00: 00 Yes [id number] 500mg Q.5D Take 1 tablet (500 mg total) by mouth in the morning and 1 tablet (500 mg total) in the evening. [facility] memantine (Namenda) 10 MG tablet 05-06 00:00: 00 Yes [id number] 10mg Q.5D Take 1 tablet (10 mg total) by mouth in the morning and 1 tablet (10 mg total) in the evening. [facility] levETIRAcet am (Keppra) 500 MG tablet 05-06 00:00: 00 Yes [id number] 500mg Q.5D Take 1 tablet (500 mg total) by mouth in the morning and 1 tablet (500 mg total) in the evening. [facility] memantine (Namenda) 10 MG tablet 05-06 00:00: 00 Yes [id number] 10mg Q.5D Take 1 tablet (10 mg total) by mouth in the morning and 1 tablet (10 mg total) in the evening. [facility] levETIRAcet am (Keppra) 500 MG tablet 2021-0 610 00:00: 00 Yes [facility] levETIRAcet am (Keppra) 500 MG tablet 2021-0 6-10 00:00: 00 Yes [facility] levETIRAcet am (Keppra) 500 MG tablet 2021-0 610 00:00: 00 05-06 00:00 :00 No [facility] carvedilol (Coreg) 3.125 MG tablet 2021-0 -13 00:00: 00 Yes [facility] clopidogrel (Plavix) 75 MG tablet 2021-0 13 00:00: 00 Yes [facility] carvedilol (Coreg) 3.125 MG tablet 0 13 00:00: 00 Yes [facility] clopidogrel (Plavix) 75 MG tablet 2021-0 13 00:00: 00 Yes [facility] carvedilol (Coreg) 3.125 MG tablet 0 13 00:00: 00 Yes [facility] clopidogrel (Plavix) 75 MG tablet 2021-0 13 00:00: 00 Yes [facility] carvedilol (Coreg) 3.125 MG tablet 0 13 00:00: 00 Yes [facility] clopidogrel (Plavix) 75 MG tablet 2021-0 13 00:00: 00 Yes [facility] carvedilol (Coreg) 3.125 MG tablet 2021-0 13 00:00: 00 Yes [facility] clopidogrel (Plavix) 75 MG tablet 2021-0 13 00:00: 00 Yes [facility] carvedilol (Coreg) 3.125 MG tablet 2021-0 13 00:00: 00 Yes [facility] clopidogrel (Plavix) 75 MG tablet 2021-0 -13 00:00: 00 Yes [facility] carvedilol (Coreg) 3.125 MG tablet 2021-0 13 00:00: 00 Yes [facility] clopidogrel (Plavix) 75 MG tablet 2021-0 13 00:00: 00 Yes [facility] carvedilol (Coreg) 3.125 MG tablet 2021-0 -13 00:00: 00 Yes [facility] clopidogrel (Plavix) 75 MG tablet 2022-0 4-13 00:00: 00 Yes [facility] carvedilol (Coreg) 3.125 MG tablet 2-0 4-13 00:00: 00 Yes [facility] clopidogrel (Plavix) 75 MG tablet 2-0 -13 00:00: 00 Yes [facility] carvedilol (Coreg) 3.125 MG tablet 2-0 4-13 00:00: 00 Yes [facility] clopidogrel (Plavix) 75 MG tablet 2-0 4-13 00:00: 00 Yes [facility] carvedilol (Coreg) 3.125 MG tablet 2-0 -13 00:00: 00 Yes [facility] clopidogrel (Plavix) 75 MG tablet 2-0 4-13 00:00: 00 Yes [facility] carvedilol (Coreg) 3.125 MG tablet 2021-0 -13 00:00: 00 Yes [facility] clopidogrel (Plavix) 75 MG tablet 2021-0 4-13 00:00: 00 Yes [facility] atorvastati n (Lipitor) 40 MG tablet 2-0 3-16 00:00: 00 Yes [facility] atorvastati n (Lipitor) 40 MG tablet 2-0 3-16 00:00: 00 Yes [facility] atorvastati n (Lipitor) 40 MG tablet 2-0 3-16 00:00: 00 Yes [facility] atorvastati n (Lipitor) 40 MG tablet 2-0 3-16 00:00: 00 Yes [facility] atorvastati n (Lipitor) 40 MG tablet 2-0 3-16 00:00: 00 Yes [facility] atorvastati n (Lipitor) 40 MG tablet 2-0 3-16 00:00: 00 Yes [facility] atorvastati n (Lipitor) 40 MG tablet 2-0 3-16 00:00: 00 Yes [facility] atorvastati n (Lipitor) 40 MG tablet 2-0 3-16 00:00: 00 Yes 40mg QD Take 40 mg by mouth 1 (one) time each day. [facility] atorvastati n (Lipitor) 40 MG tablet 2-0 3-16 00:00: 00 Yes [facility] atorvastati n (Lipitor) 40 MG tablet 2-0 3-16 00:00: 00 Yes [facility] atorvastati n (Lipitor) 40 MG tablet 2021-0 3-16 00:00: 00 Yes [facility] atorvastati n (Lipitor) 40 MG tablet 2021-0 3-16 00:00: 00 Yes [facility] amLODIPine (Norvasc) 2.5 MG tablet 2021-0 3-02 00:00: 00 Yes [facility] amLODIPine (Norvasc) 2.5 MG tablet 2-0 3-02 00:00: 00 Yes [facility] amLODIPine (Norvasc) 2.5 MG tablet 2021-0 3-02 00:00: 00 Yes [facility] amLODIPine (Norvasc) 2.5 MG tablet 2021-0 3-02 00:00: 00 Yes [facility] amLODIPine (Norvasc) 2.5 MG tablet 2021-0 3-02 00:00: 00 Yes [facility] amLODIPine (Norvasc) 2.5 MG tablet 2021-0 3-02 00:00: 00 Yes [facility] amLODIPine (Norvasc) 2.5 MG tablet 2021-0 3-02 00:00: 00 Yes [facility] amLODIPine (Norvasc) 2.5 MG tablet 2021-0 3-02 00:00: 00 Yes [facility] amLODIPine (Norvasc) 2.5 MG tablet 2021-0 3-02 00:00: 00 Yes [facility] amLODIPine (Norvasc) 2.5 MG tablet 2021-0 3-02 00:00: 00 Yes [facility] amLODIPine (Norvasc) 2.5 MG tablet 2-0 3-02 00:00: 00 Yes [facility] amLODIPine (Norvasc) 2.5 MG tablet 2021-0 3-02 00:00: 00 Yes [facility] tamsulosin (Flomax) 0.4 MG 24 hr capsule 2-0 2-10 00:00: 00 Yes [facility] tamsulosin (Flomax) 0.4 MG 24 hr capsule 2-0 2-10 00:00: 00 Yes [facility] tamsulosin (Flomax) 0.4 MG 24 hr capsule 2-0 2-10 00:00: 00 Yes [facility] tamsulosin (Flomax) 0.4 MG 24 hr capsule 2-0 2-10 00:00: 00 Yes [facility] tamsulosin (Flomax) 0.4 MG 24 hr capsule 2021-0 2-10 00:00: 00 Yes [facility] tamsulosin (Flomax) 0.4 MG 24 hr capsule 2021-0 2-10 00:00: 00 Yes [facility] tamsulosin (Flomax) 0.4 MG 24 hr capsule 2021-0 2-10 00:00: 00 Yes [facility] tamsulosin (Flomax) 0.4 MG 24 hr capsule 2021-0 2-10 00:00: 00 Yes [facility] tamsulosin (Flomax) 0.4 MG 24 hr capsule 2021-0 2-10 00:00: 00 Yes [facility] tamsulosin (Flomax) 0.4 MG 24 hr capsule 2021-0 2-10 00:00: 00 Yes [facility] tamsulosin (Flomax) 0.4 MG 24 hr capsule 2021-0 2-10 00:00: 00 Yes [facility] tamsulosin (Flomax) 0.4 MG 24 hr capsule 2021-0 2-10 00:00: 00 Yes [facility] memantine (Namenda) 10 MG tablet 0 11-23 00:00: 00 Yes [facility] memantine (Namenda) 10 MG tablet 0 11-23 00:00: 00 Yes [facility] memantine (Namenda) 10 MG tablet 0 11-23 00:00: 00 05-06 00:00 :00 No [facility] carvedilol (Coreg) 12.5 MG tablet 2020-10 00:00: 00 Yes [facility] carvedilol (Coreg) 12.5 MG tablet 2020-10 00:00: 00 Yes [facility] carvedilol (Coreg) 12.5 MG tablet 2020-10 00:00: 00 Yes [facility] carvedilol (Coreg) 12.5 MG tablet 2020-10 00:00: 00 Yes [facility] carvedilol (Coreg) 12.5 MG tablet 2020-10 00:00: 00 Yes [facility] carvedilol (Coreg) 12.5 MG tablet 2020-10 00:00: 00 Yes [facility] carvedilol (Coreg) 12.5 MG tablet 2020-10 00:00: 00 Yes [facility] carvedilol (Coreg) 12.5 MG tablet 2020-10 00:00: 00 Yes [facility] carvedilol (Coreg) 12.5 MG tablet 2020-10 00:00: 00 Yes [facility] carvedilol (Coreg) 12.5 MG tablet 2020-10 00:00: 00 Yes [facility] carvedilol (Coreg) 12.5 MG tablet 2020-10 00:00: 00 Yes [facility] carvedilol (Coreg) 12.5 MG tablet 2020-10 00:00: 00 Yes [facility] sulfamethox azole-trime thoprim (Bactrim DS) 800-160 MG tablet 2020-10 00:00: 00 Yes [facility] sulfamethox azole-trime thoprim (Bactrim DS) 800-160 MG tablet 2020-10 00:00: 00 Yes [facility] sulfamethox azole-trime thoprim (Bactrim DS) 800-160 MG tablet 2020-10 00:00: 00 Yes [facility] sulfamethox azole-trime thoprim (Bactrim DS) 800-160 MG tablet 2020-10 00:00: 00 Yes [facility] sulfamethox azole-trime thoprim (Bactrim DS) 800-160 MG tablet 2020-10 00:00: 00 Yes [facility] sulfamethox azole-trime thoprim (Bactrim DS) 800-160 MG tablet 2020-10 00:00: 00 Yes [facility] sulfamethox azole-trime thoprim (Bactrim DS) 800-160 MG tablet 2020-10 00:00: 00 Yes [facility] sulfamethox azole-trime thoprim (Bactrim DS) 800-160 MG tablet 2020-10 00:00: 00 Yes [facility] sulfamethox azole-trime thoprim (Bactrim DS) 800-160 MG tablet 2020-10 00:00: 00 Yes [facility] sulfamethox azole-trime thoprim (Bactrim DS) 800-160 MG tablet 2020-10 00:00: 00 Yes [facility] sulfamethox azole-trime thoprim (Bactrim DS) 800-160 MG tablet 2020-10 00:00: 00 Yes [facility] sulfamethox azole-trime thoprim (Bactrim DS) 800-160 MG tablet 2020-10 00:00: 00 Yes [facility] donepezil (Aricept) 5 MG tablet 0 07-06 00:00: 00 Yes [facility] donepezil (Aricept) 5 MG tablet 0 07-06 00:00: 00 Yes [facility] donepezil (Aricept) 5 MG tablet 0 07-06 00:00: 00 Yes [facility] donepezil (Aricept) 5 MG tablet 0 07-06 00:00: 00 Yes [facility] donepezil (Aricept) 5 MG tablet 0 07-06 00:00: 00 Yes [facility] donepezil (Aricept) 5 MG tablet 0 07-06 00:00: 00 Yes [facility] donepezil (Aricept) 5 MG tablet 0 07-06 00:00: 00 08-02 00:00 :00 No [facility] donepezil (Aricept) 5 MG tablet 0 07-06 00:00: 00 08-02 00:00 :00 No [facility] donepezil (Aricept) 5 MG tablet 0 07-06 00:00: 00 08-02 00:00 :00 No [facility] donepezil (Aricept) 5 MG tablet 0 07-06 00:00: 00 08-02 00:00 :00 No [facility] lisinopril 5 MG tablet 0 06-27 00:00: 00 Yes [facility] lisinopril 5 MG tablet 0 8 00:00: 00 Yes [facility] lisinopril 5 MG tablet 0 8- 00:00: 00 Yes [facility] lisinopril 5 MG tablet 0 8 00:00: 00 Yes [facility] lisinopril 5 MG tablet 2020-0 8- 00:00: 00 Yes [facility] lisinopril 5 MG tablet 0 8 00:00: 00 Yes [facility] lisinopril 5 MG tablet 0 8 00:00: 00 Yes [facility] lisinopril 5 MG tablet 0 8 00:00: 00 Yes [facility] lisinopril 5 MG tablet 0 8 00:00: 00 Yes [facility] lisinopril 5 MG tablet 0 8 00:00: 00 Yes [facility] lisinopril 5 MG tablet 0 8 00:00: 00 Yes [facility] lisinopril 5 MG tablet 0 8 00:00: 00 Yes [facility] aspirin (ASPIR) 81 MG EC tablet 01-24 00:00: 00 Yes 81mg 81 mg. [facility] budesonide (Pulmicort) 0.5 MG/2ML nebulizer solution 01-24 00:00: 00 Yes [facility] aspirin (ASPIR) 81 MG EC tablet 01-24 00:00: 00 Yes 81mg 81 mg. [facility] aspirin (ASPIR) 81 MG EC tablet 01-24 00:00: 00 Yes 81mg 81 mg. [facility] budesonide (Pulmicort) 0.5 MG/2ML nebulizer solution 01-24 00:00: 00 Yes [facility] budesonide (Pulmicort) 0.5 MG/2ML nebulizer solution 01-24 00:00: 00 Yes [facility] aspirin (ASPIR) 81 MG EC tablet 01-24 00:00: 00 Yes 81mg 81 mg. [facility] budesonide (Pulmicort) 0.5 MG/2ML nebulizer solution 01-24 00:00: 00 Yes [facility] aspirin (ASPIR) 81 MG EC tablet 01-24 00:00: 00 Yes 81mg 81 mg. [facility] budesonide (Pulmicort) 0.5 MG/2ML nebulizer solution 01-24 00:00: 00 Yes [facility] aspirin (ASPIR) 81 MG EC tablet 01-24 00:00: 00 Yes 81mg 81 mg. [facility] budesonide (Pulmicort) 0.5 MG/2ML nebulizer solution 01-24 00:00: 00 Yes [facility] aspirin (ASPIR) 81 MG EC tablet 01-24 00:00: 00 Yes 81mg 81 mg. [facility] budesonide (Pulmicort) 0.5 MG/2ML nebulizer solution 01-24 00:00: 00 Yes [facility] aspirin (ASPIR) 81 MG EC tablet 01-24 00:00: 00 Yes 81mg 81 mg. [facility] budesonide (Pulmicort) 0.5 MG/2ML nebulizer solution 01-24 00:00: 00 Yes [facility] aspirin (ASPIR) 81 MG EC tablet 01-24 00:00: 00 Yes 81mg 81 mg. [facility] budesonide (Pulmicort) 0.5 MG/2ML nebulizer solution 01-24 00:00: 00 Yes [facility] aspirin (ASPIR) 81 MG EC tablet 01-24 00:00: 00 Yes 81mg 81 mg. [facility] budesonide (Pulmicort) 0.5 MG/2ML nebulizer solution 01-24 00:00: 00 Yes [facility] aspirin (ASPIR) 81 MG EC tablet 01-24 00:00: 00 Yes 81mg 81 mg. [facility] budesonide (Pulmicort) 0.5 MG/2ML nebulizer solution 01-24 00:00: 00 Yes [facility] aspirin (ASPIR) 81 MG EC tablet 01-24 00:00: 00 Yes 81mg 81 mg. [facility] budesonide (Pulmicort) 0.5 MG/2ML nebulizer solution 01-24 00:00: 00 Yes [facility] Clopidogrel Bisulfate 75 MG Clopidogrel Bisulfate 75 MG No 1{table t} QD Clopidogre l Bisulfate 75 MG Fluticasone Furoate-Silver anterol 100-25 MCG/INH Fluticasone Furoate-Silver anterol 100-25 MCG/INH No 1{puff} QD Fluticason e Furoate-Vi lanterol 100-25 MCG/INH Folic Acid 1 MG Folic Acid 1 MG No 1{table t} QD Folic Acid 1 MG Memantine HCl 10 MG Memantine HCl 10 MG No 1{table t} BID Memantine HCl 10 MG Donepezil HCl 10 MG Donepezil HCl 10 MG No 1{table t_at_be dtime} QD Donepezil HCl 10 MG Carbidopa-L evodopa 25-100 MG Carbidopa-L evodopa 25-100 MG No 1{table t} TID Carbidopa- Levodopa 25-100 MG Clopidogrel Bisulfate 75 mg Clopidogrel Bisulfate 75 mg No Clopidogre l Bisulfate 75 mg Carvedilol 12.5 mg Carvedilol 12.5 mg No Carvedilol 12.5 mg Atorvastati n Calcium 40 MG Atorvastati n Calcium 40 MG No 1{table t} QD Atorvastat in Calcium 40 MG Atorvastati n Calcium 40 MG Atorvastati n Calcium 40 MG No Atorvastat in Calcium 40 MG Coreg 12.5 MG Coreg 12.5 MG No 1{table t_with_ food} QD Coreg 12.5 MG amLODIPine Besylate 10 MG amLODIPine Besylate 10 MG No 1{table t} QD amLODIPine Besylate 10 MG Flomax 0.4 MG Flomax 0.4 MG No 2{capsu les} QD Flomax 0.4 MG Tamsulosin HCl 0.4 mg Tamsulosin HCl 0.4 mg No Tamsulosin HCl 0.4 mg Ventolin HFA 108 (90 Base) MCG/ACT Ventolin HFA 108 (90 Base) MCG/ACT No 2{puffs _as_nee ded} QID Ventolin HFA 108 (90 Base) MCG/ACT Aspirin 81 81 MG Aspirin 81 81 MG No 1{table t} QD Aspirin 81 81 MG Aricept 10 MG Aricept 10 MG No 1{table t_at_be dtime} QD Aricept 10 MG Albuterol Sulfate HFA 108 (90 Base) MCG/ACT Albuterol Sulfate HFA 108 (90 Base) MCG/ACT No Albuterol Sulfate HFA 108 (90 Base) MCG/ACT Coreg 3.125 MG Coreg 3.125 MG No QD Coreg 3.125 MG Clopidogrel Bisulfate 75 MG Clopidogrel Bisulfate 75 MG No 1{table t} QD Clopidogre l Bisulfate 75 MG Fluticasone Furoate-Silver anterol 100-25 MCG/INH Fluticasone Furoate-Silver anterol 100-25 MCG/INH No 1{puff} QD Fluticason e Furoate-Vi lanterol 100-25 MCG/INH Folic Acid 1 MG Folic Acid 1 MG No 1{table t} QD Folic Acid 1 MG Donepezil HCl 10 MG Donepezil HCl 10 MG No 1{table t_at_be dtime} QD Donepezil HCl 10 MG Carbidopa-L evodopa 25-100 MG Carbidopa-L evodopa 25-100 MG No 1{table t} TID Carbidopa- Levodopa 25-100 MG Clopidogrel Bisulfate 75 mg Clopidogrel Bisulfate 75 mg No Clopidogre l Bisulfate 75 mg Carvedilol 12.5 mg Carvedilol 12.5 mg No Carvedilol 12.5 mg Atorvastati n Calcium 40 MG Atorvastati n Calcium 40 MG No 1{table t} QD Atorvastat in Calcium 40 MG Atorvastati n Calcium 40 MG Atorvastati n Calcium 40 MG No Atorvastat in Calcium 40 MG Coreg 12.5 MG Coreg 12.5 MG No 1{table t_with_ food} QD Coreg 12.5 MG amLODIPine Besylate 10 MG amLODIPine Besylate 10 MG No 1{table t} QD amLODIPine Besylate 10 MG Flomax 0.4 MG Flomax 0.4 MG No 2{capsu les} QD Flomax 0.4 MG Tamsulosin HCl 0.4 mg Tamsulosin HCl 0.4 mg No Tamsulosin HCl 0.4 mg Ventolin HFA 108 (90 Base) MCG/ACT Ventolin HFA 108 (90 Base) MCG/ACT No 2{puffs _as_nee ded} QID Ventolin HFA 108 (90 Base) MCG/ACT Proscar 5 MG Proscar 5 MG No 1{table t} QD Proscar 5 MG Aspirin 81 81 MG Aspirin 81 81 MG No 1{table t} QD Aspirin 81 81 MG Aricept 10 MG Aricept 10 MG No 1{table t_at_be dtime} QD Aricept 10 MG Albuterol Sulfate HFA 108 (90 Base) MCG/ACT Albuterol Sulfate HFA 108 (90 Base) MCG/ACT No Albuterol Sulfate HFA 108 (90 Base) MCG/ACT Coreg 3.125 MG Coreg 3.125 MG No QD Coreg 3.125 MG Clopidogrel Bisulfate 75 MG Clopidogrel Bisulfate 75 MG No 1{table t} QD Clopidogre l Bisulfate 75 MG Fluticasone Furoate-Silver anterol 100-25 MCG/INH Fluticasone Furoate-Silver anterol 100-25 MCG/INH No 1{puff} QD Fluticason e Furoate-Vi lanterol 100-25 MCG/INH Folic Acid 1 MG Folic Acid 1 MG No 1{table t} QD Folic Acid 1 MG Flomax 0.4 MG Flomax 0.4 MG No 1{capsu le} Flomax 0.4 MG Aspirin 81 81 MG Aspirin 81 81 MG No 1{table t} QD Aspirin 81 81 MG Flomax 0.4 MG Flomax 0.4 MG No 2{capsu les} QD Flomax 0.4 MG Aricept 10 MG Aricept 10 MG No 1{table t_at_be dtime} QD Aricept 10 MG Coreg 3.125 MG Coreg 3.125 MG No QD Coreg 3.125 MG Donepezil HCl 10 MG Donepezil HCl 10 MG No 1{table t_at_be dtime} QD Donepezil HCl 10 MG Atorvastati n Calcium 40 MG Atorvastati n Calcium 40 MG No 1{table t} QD Atorvastat in Calcium 40 MG Carbidopa-L evodopa 25-100 MG Carbidopa-L evodopa 25-100 MG No 1{table t} TID Carbidopa- Levodopa 25-100 MG amLODIPine Besylate 10 MG amLODIPine Besylate 10 MG No 1{table t} QD amLODIPine Besylate 10 MG Carvedilol 12.5 mg Carvedilol 12.5 mg No Carvedilol 12.5 mg Fluticasone Furoate-Silver anterol 100-25 MCG/INH Fluticasone Furoate-Silver anterol 100-25 MCG/INH No 1{puff} QD Fluticason e Furoate-Vi lanterol 100-25 MCG/INH Ventolin HFA 108 (90 Base) MCG/ACT Ventolin HFA 108 (90 Base) MCG/ACT No 2{puffs _as_nee ded} QID Ventolin HFA 108 (90 Base) MCG/ACT Atorvastati n Calcium 40 MG Atorvastati n Calcium 40 MG No Atorvastat in Calcium 40 MG Albuterol Sulfate (2.5 MG/3ML) 0.083% Albuterol Sulfate (2.5 MG/3ML) 0.083% No 3{ml_as _needed } QID Albuterol Sulfate (2.5 MG/3ML) 0.083% Flomax 0.4 MG Flomax 0.4 MG No 2{capsu les} QD Flomax 0.4 MG Tamsulosin HCl 0.4 mg Tamsulosin HCl 0.4 mg No Tamsulosin HCl 0.4 mg Clopidogrel Bisulfate 75 mg Clopidogrel Bisulfate 75 mg No Clopidogre l Bisulfate 75 mg Coreg 12.5 MG Coreg 12.5 MG No 1{table t_with_ food} QD Coreg 12.5 MG Clopidogrel Bisulfate 75 MG Clopidogrel Bisulfate 75 MG No 1{table t} QD Clopidogre l Bisulfate 75 MG Albuterol Sulfate HFA 108 (90 Base) MCG/ACT Albuterol Sulfate HFA 108 (90 Base) MCG/ACT No Albuterol Sulfate HFA 108 (90 Base) MCG/ACT Folic Acid 1 MG Folic Acid 1 MG No 1{table t} QD Folic Acid 1 MG buPROPion HCl ER (XL) 150 MG buPROPion HCl ER (XL) 150 MG No 1{table t_in_th e_morni ng} QD buPROPion HCl ER (XL) 150 MG Aspirin 81 81 MG Aspirin 81 81 MG No 1{table t} QD Aspirin 81 81 MG Aricept 10 MG Aricept 10 MG No 1{table t_at_be dtime} QD Aricept 10 MG Clopidogrel Bisulfate 75 MG Clopidogrel Bisulfate 75 MG No Clopidogre l Bisulfate 75 MG Coreg 3.125 MG Coreg 3.125 MG No QD Coreg 3.125 MG Donepezil HCl 10 MG Donepezil HCl 10 MG No 1{table t_at_be dtime} QD Donepezil HCl 10 MG Atorvastati n Calcium 40 MG Atorvastati n Calcium 40 MG No 1{table t} QD Atorvastat in Calcium 40 MG Carbidopa-L evodopa 25-100 MG Carbidopa-L evodopa 25-100 MG No 1{table t} TID Carbidopa- Levodopa 25-100 MG amLODIPine Besylate 10 MG amLODIPine Besylate 10 MG No 1{table t} QD amLODIPine Besylate 10 MG Carvedilol 12.5 mg Carvedilol 12.5 mg No Carvedilol 12.5 mg Fluticasone Furoate-Silver anterol 100-25 MCG/INH Fluticasone Furoate-Silver anterol 100-25 MCG/INH No 1{puff} QD Fluticason e Furoate-Vi lanterol 100-25 MCG/INH Ventolin HFA 108 (90 Base) MCG/ACT Ventolin HFA 108 (90 Base) MCG/ACT No 2{puffs _as_nee ded} QID Ventolin HFA 108 (90 Base) MCG/ACT Atorvastati n Calcium 40 MG Atorvastati n Calcium 40 MG No Atorvastat in Calcium 40 MG Flomax 0.4 MG Flomax 0.4 MG No 2{capsu les} QD Flomax 0.4 MG SEROquel 50 MG SEROquel 50 MG No 1{table t_at_be dtime} QD SEROquel 50 MG Tamsulosin HCl 0.4 mg Tamsulosin HCl 0.4 mg No Tamsulosin HCl 0.4 mg Clopidogrel Bisulfate 75 mg Clopidogrel Bisulfate 75 mg No Clopidogre l Bisulfate 75 mg Coreg 12.5 MG Coreg 12.5 MG No 1{table t_with_ food} QD Coreg 12.5 MG Clopidogrel Bisulfate 75 MG Clopidogrel Bisulfate 75 MG No 1{table t} QD Clopidogre l Bisulfate 75 MG Albuterol Sulfate HFA 108 (90 Base) MCG/ACT Albuterol Sulfate HFA 108 (90 Base) MCG/ACT No Albuterol Sulfate HFA 108 (90 Base) MCG/ACT Folic Acid 1 MG Folic Acid 1 MG No 1{table t} QD Folic Acid 1 MG Atorvastati n Calcium 40 MG Atorvastati n Calcium 40 MG No 1{table t} QD Atorvastat in Calcium 40 MG Albuterol Sulfate HFA 108 (90 Base) MCG/ACT Albuterol Sulfate HFA 108 (90 Base) MCG/ACT No Albuterol Sulfate HFA 108 (90 Base) MCG/ACT Aspirin 81 81 MG Aspirin 81 81 MG No 1{table t} QD Aspirin 81 81 MG Aricept 10 MG Aricept 10 MG No 1{table t_at_be dtime} QD Aricept 10 MG Coreg 3.125 MG Coreg 3.125 MG No QD Coreg 3.125 MG Donepezil HCl 10 MG Donepezil HCl 10 MG No 1{table t_at_be dtime} QD Donepezil HCl 10 MG Atorvastati n Calcium 40 MG Atorvastati n Calcium 40 MG No 1{table t} QD Atorvastat in Calcium 40 MG Carbidopa-L evodopa 25-100 MG Carbidopa-L evodopa 25-100 MG No 1{table t} TID Carbidopa- Levodopa 25-100 MG amLODIPine Besylate 10 MG amLODIPine Besylate 10 MG No 1{table t} QD amLODIPine Besylate 10 MG Carvedilol 12.5 mg Carvedilol 12.5 mg No Carvedilol 12.5 mg Fluticasone Furoate-Silver anterol 100-25 MCG/INH Fluticasone Furoate-Silver anterol 100-25 MCG/INH No 1{puff} QD Fluticason e Furoate-Vi lanterol 100-25 MCG/INH Ventolin HFA 108 (90 Base) MCG/ACT Ventolin HFA 108 (90 Base) MCG/ACT No 2{puffs _as_nee ded} QID Ventolin HFA 108 (90 Base) MCG/ACT Budesonide- Formoterol Fumarate 160-4.5 MCG/ACT Budesonide- Formoterol Fumarate 160-4.5 MCG/ACT No 2{puffs } BID Budesonide -Formotero l Fumarate 160-4.5 MCG/ACT Atorvastati n Calcium 40 MG Atorvastati n Calcium 40 MG No Atorvastat in Calcium 40 MG Flomax 0.4 MG Flomax 0.4 MG No 2{capsu les} QD Flomax 0.4 MG Tamsulosin HCl 0.4 mg Tamsulosin HCl 0.4 mg No Tamsulosin HCl 0.4 mg Clopidogrel Bisulfate 75 mg Clopidogrel Bisulfate 75 mg No Clopidogre l Bisulfate 75 mg Coreg 12.5 MG Coreg 12.5 MG No 1{table t_with_ food} QD Coreg 12.5 MG Clopidogrel Bisulfate 75 MG Clopidogrel Bisulfate 75 MG No 1{table t} QD Clopidogre l Bisulfate 75 MG Albuterol Sulfate HFA 108 (90 Base) MCG/ACT Albuterol Sulfate HFA 108 (90 Base) MCG/ACT No Albuterol Sulfate HFA 108 (90 Base) MCG/ACT Folic Acid 1 MG Folic Acid 1 MG No 1{table t} QD Folic Acid 1 MG Atorvastati n Calcium 40 MG Atorvastati n Calcium 40 MG No Atorvastat in Calcium 40 MG Folic Acid 1 MG Folic Acid 1 MG No 1{table t} QD Folic Acid 1 MG Atorvastati n Calcium 40 mg Atorvastati n Calcium 40 mg No Atorvastat in Calcium 40 mg amLODIPine Besylate 10 mg amLODIPine Besylate 10 mg No amLODIPine Besylate 10 mg Aspirin 81 81 MG Aspirin 81 81 MG No 1{table t} QD Aspirin 81 81 MG Folic Acid 1 mg Folic Acid 1 mg No Folic Acid 1 mg Carvedilol 12.5 mg Carvedilol 12.5 mg No Carvedilol 12.5 mg Clopidogrel Bisulfate 75 mg Clopidogrel Bisulfate 75 mg No Clopidogre l Bisulfate 75 mg amLODIPine Besylate 5 MG amLODIPine Besylate 5 MG No amLODIPine Besylate 5 MG Atorvastati n Calcium 40 mg Atorvastati n Calcium 40 mg No Atorvastat in Calcium 40 mg amLODIPine Besylate 10 mg amLODIPine Besylate 10 mg No amLODIPine Besylate 10 mg Folic Acid 1 mg Folic Acid 1 mg No Folic Acid 1 mg Carvedilol 12.5 mg Carvedilol 12.5 mg No Carvedilol 12.5 mg Clopidogrel Bisulfate 75 mg Clopidogrel Bisulfate 75 mg No Clopidogre l Bisulfate 75 mg Donepezil HCl 10 MG Donepezil HCl 10 MG No 1{table t_at_be dtime} QD Donepezil HCl 10 MG Ketoconazol e 2 % Ketoconazol e 2 % No QD Ketoconazo le 2 % Flomax 0.4 MG Flomax 0.4 MG No 2{capsu les} QD Flomax 0.4 MG Aricept 10 MG Aricept 10 MG No 1{table t_at_be dtime} QD Aricept 10 MG Donepezil HCl 10 MG Donepezil HCl 10 MG No 1{table t_at_be dtime} QD Donepezil HCl 10 MG Aspirin 81 81 MG Aspirin 81 81 MG No 1{table t} QD Aspirin 81 81 MG Carvedilol 12.5 mg Carvedilol 12.5 mg No Carvedilol 12.5 mg levETIRAcet am 500 MG levETIRAcet am 500 MG No 1{table t} QD levETIRAce summers 500 MG Folic Acid 1 mg Folic Acid 1 mg No Folic Acid 1 mg Tamsulosin HCl 0.4 mg Tamsulosin HCl 0.4 mg No Tamsulosin HCl 0.4 mg Ventolin HFA 108 (90 Base) MCG/ACT Ventolin HFA 108 (90 Base) MCG/ACT No 2{puffs _as_nee ded} QID Ventolin HFA 108 (90 Base) MCG/ACT Atorvastati n Calcium 40 mg Atorvastati n Calcium 40 mg No Atorvastat in Calcium 40 mg amLODIPine Besylate 10 mg amLODIPine Besylate 10 mg No amLODIPine Besylate 10 mg Clopidogrel Bisulfate 75 mg Clopidogrel Bisulfate 75 mg No Clopidogre l Bisulfate 75 mg Fluticasone Furoate-Silver anterol 100-25 MCG/INH Fluticasone Furoate-Silver anterol 100-25 MCG/INH No 1{puff} QD Fluticason e Furoate-Vi lanterol 100-25 MCG/INH Coreg 3.125 MG Coreg 3.125 MG No QD Coreg 3.125 MG Carbidopa-L evodopa 25-100 MG Carbidopa-L evodopa 25-100 MG No 1{table t} TID Carbidopa- Levodopa 25-100 MG Albuterol Sulfate HFA 108 (90 Base) MCG/ACT Albuterol Sulfate HFA 108 (90 Base) MCG/ACT No Albuterol Sulfate HFA 108 (90 Base) MCG/ACT Coreg 12.5 MG Coreg 12.5 MG No BID Coreg 12.5 MG amLODIPine Besylate 2.5 MG amLODIPine Besylate 2.5 MG No 1{table t} QD amLODIPine Besylate 2.5 MG Folic Acid 1 MG Folic Acid 1 MG No 1{table t} QD Folic Acid 1 MG Memantine HCl 10 MG Memantine HCl 10 MG No 1{table t} BID Memantine HCl 10 MG Flomax 0.4 MG Flomax 0.4 MG No 2{capsu les} QD Flomax 0.4 MG Aricept 10 MG Aricept 10 MG No 1{table t_at_be dtime} QD Aricept 10 MG Donepezil HCl 10 MG Donepezil HCl 10 MG No 1{table t_at_be dtime} QD Donepezil HCl 10 MG Aspirin 81 81 MG Aspirin 81 81 MG No 1{table t} QD Aspirin 81 81 MG Carvedilol 12.5 mg Carvedilol 12.5 mg No Carvedilol 12.5 mg Folic Acid 1 mg Folic Acid 1 mg No Folic Acid 1 mg Tamsulosin HCl 0.4 mg Tamsulosin HCl 0.4 mg No Tamsulosin HCl 0.4 mg Ventolin HFA 108 (90 Base) MCG/ACT Ventolin HFA 108 (90 Base) MCG/ACT No 2{puffs _as_nee ded} QID Ventolin HFA 108 (90 Base) MCG/ACT Atorvastati n Calcium 40 mg Atorvastati n Calcium 40 mg No Atorvastat in Calcium 40 mg amLODIPine Besylate 10 mg amLODIPine Besylate 10 mg No amLODIPine Besylate 10 mg Clopidogrel Bisulfate 75 mg Clopidogrel Bisulfate 75 mg No Clopidogre l Bisulfate 75 mg Fluticasone Furoate-Silver anterol 100-25 MCG/INH Fluticasone Furoate-Silver anterol 100-25 MCG/INH No 1{puff} QD Fluticason e Furoate-Vi lanterol 100-25 MCG/INH Coreg 3.125 MG Coreg 3.125 MG No QD Coreg 3.125 MG Carbidopa-L evodopa 25-100 MG Carbidopa-L evodopa 25-100 MG No 1{table t} TID Carbidopa- Levodopa 25-100 MG Albuterol Sulfate HFA 108 (90 Base) MCG/ACT Albuterol Sulfate HFA 108 (90 Base) MCG/ACT No Albuterol Sulfate HFA 108 (90 Base) MCG/ACT Flomax 0.4 MG Flomax 0.4 MG No 2{capsu les} QD Flomax 0.4 MG Aricept 10 MG Aricept 10 MG No 1{table t_at_be dtime} QD Aricept 10 MG Donepezil HCl 10 MG Donepezil HCl 10 MG No 1{table t_at_be dtime} QD Donepezil HCl 10 MG Aspirin 81 81 MG Aspirin 81 81 MG No 1{table t} QD Aspirin 81 81 MG Carvedilol 12.5 mg Carvedilol 12.5 mg No Carvedilol 12.5 mg Folic Acid 1 mg Folic Acid 1 mg No Folic Acid 1 mg Tamsulosin HCl 0.4 mg Tamsulosin HCl 0.4 mg No Tamsulosin HCl 0.4 mg Ventolin HFA 108 (90 Base) MCG/ACT Ventolin HFA 108 (90 Base) MCG/ACT No 2{puffs _as_nee ded} QID Ventolin HFA 108 (90 Base) MCG/ACT Atorvastati n Calcium 40 mg Atorvastati n Calcium 40 mg No Atorvastat in Calcium 40 mg amLODIPine Besylate 10 mg amLODIPine Besylate 10 mg No amLODIPine Besylate 10 mg Clopidogrel Bisulfate 75 mg Clopidogrel Bisulfate 75 mg No Clopidogre l Bisulfate 75 mg Fluticasone Furoate-Silver anterol 100-25 MCG/INH Fluticasone Furoate-Silver anterol 100-25 MCG/INH No 1{puff} QD Fluticason e Furoate-Vi lanterol 100-25 MCG/INH Coreg 3.125 MG Coreg 3.125 MG No QD Coreg 3.125 MG Carbidopa-L evodopa 25-100 MG Carbidopa-L evodopa 25-100 MG No 1{table t} TID Carbidopa- Levodopa 25-100 MG Albuterol Sulfate HFA 108 (90 Base) MCG/ACT Albuterol Sulfate HFA 108 (90 Base) MCG/ACT No Albuterol Sulfate HFA 108 (90 Base) MCG/ACT Flomax 0.4 MG Flomax 0.4 MG No 2{capsu les} QD Flomax 0.4 MG Aricept 10 MG Aricept 10 MG No 1{table t_at_be dtime} QD Aricept 10 MG Donepezil HCl 10 MG Donepezil HCl 10 MG No 1{table t_at_be dtime} QD Donepezil HCl 10 MG Aspirin 81 81 MG Aspirin 81 81 MG No 1{table t} QD Aspirin 81 81 MG Carvedilol 12.5 mg Carvedilol 12.5 mg No Carvedilol 12.5 mg Folic Acid 1 mg Folic Acid 1 mg No Folic Acid 1 mg Tamsulosin HCl 0.4 mg Tamsulosin HCl 0.4 mg No Tamsulosin HCl 0.4 mg Ventolin HFA 108 (90 Base) MCG/ACT Ventolin HFA 108 (90 Base) MCG/ACT No 2{puffs _as_nee ded} QID Ventolin HFA 108 (90 Base) MCG/ACT Atorvastati n Calcium 40 mg Atorvastati n Calcium 40 mg No Atorvastat in Calcium 40 mg amLODIPine Besylate 10 mg amLODIPine Besylate 10 mg No amLODIPine Besylate 10 mg Clopidogrel Bisulfate 75 mg Clopidogrel Bisulfate 75 mg No Clopidogre l Bisulfate 75 mg Fluticasone Furoate-Silver anterol 100-25 MCG/INH Fluticasone Furoate-Silver anterol 100-25 MCG/INH No 1{puff} QD Fluticason e Furoate-Vi lanterol 100-25 MCG/INH Coreg 3.125 MG Coreg 3.125 MG No QD Coreg 3.125 MG Carbidopa-L evodopa 25-100 MG Carbidopa-L evodopa 25-100 MG No 1{table t} TID Carbidopa- Levodopa 25-100 MG Albuterol Sulfate HFA 108 (90 Base) MCG/ACT Albuterol Sulfate HFA 108 (90 Base) MCG/ACT No Albuterol Sulfate HFA 108 (90 Base) MCG/ACT Flomax 0.4 MG Flomax 0.4 MG No 2{capsu les} QD Flomax 0.4 MG Aricept 10 MG Aricept 10 MG No 1{table t_at_be dtime} QD Aricept 10 MG Donepezil HCl 10 MG Donepezil HCl 10 MG No 1{table t_at_be dtime} QD Donepezil HCl 10 MG Aspirin 81 81 MG Aspirin 81 81 MG No 1{table t} QD Aspirin 81 81 MG Carvedilol 12.5 mg Carvedilol 12.5 mg No Carvedilol 12.5 mg Folic Acid 1 mg Folic Acid 1 mg No Folic Acid 1 mg Tamsulosin HCl 0.4 mg Tamsulosin HCl 0.4 mg No Tamsulosin HCl 0.4 mg Ventolin HFA 108 (90 Base) MCG/ACT Ventolin HFA 108 (90 Base) MCG/ACT No 2{puffs _as_nee ded} QID Ventolin HFA 108 (90 Base) MCG/ACT Atorvastati n Calcium 40 mg Atorvastati n Calcium 40 mg No Atorvastat in Calcium 40 mg amLODIPine Besylate 10 mg amLODIPine Besylate 10 mg No amLODIPine Besylate 10 mg Clopidogrel Bisulfate 75 mg Clopidogrel Bisulfate 75 mg No Clopidogre l Bisulfate 75 mg Fluticasone Furoate-Silver anterol 100-25 MCG/INH Fluticasone Furoate-Silver anterol 100-25 MCG/INH No 1{puff} QD Fluticason e Furoate-Vi lanterol 100-25 MCG/INH Coreg 3.125 MG Coreg 3.125 MG No QD Coreg 3.125 MG Carbidopa-L evodopa 25-100 MG Carbidopa-L evodopa 25-100 MG No 1{table t} TID Carbidopa- Levodopa 25-100 MG Albuterol Sulfate HFA 108 (90 Base) MCG/ACT Albuterol Sulfate HFA 108 (90 Base) MCG/ACT No Albuterol Sulfate HFA 108 (90 Base) MCG/ACT Flomax 0.4 MG Flomax 0.4 MG No 2{capsu les} QD Flomax 0.4 MG Aricept 10 MG Aricept 10 MG No 1{table t_at_be dtime} QD Aricept 10 MG Donepezil HCl 10 MG Donepezil HCl 10 MG No 1{table t_at_be dtime} QD Donepezil HCl 10 MG Aspirin 81 81 MG Aspirin 81 81 MG No 1{table t} QD Aspirin 81 81 MG Carvedilol 12.5 mg Carvedilol 12.5 mg No Carvedilol 12.5 mg Folic Acid 1 mg Folic Acid 1 mg No Folic Acid 1 mg Tamsulosin HCl 0.4 mg Tamsulosin HCl 0.4 mg No Tamsulosin HCl 0.4 mg Ventolin HFA 108 (90 Base) MCG/ACT Ventolin HFA 108 (90 Base) MCG/ACT No 2{puffs _as_nee ded} QID Ventolin HFA 108 (90 Base) MCG/ACT Atorvastati n Calcium 40 mg Atorvastati n Calcium 40 mg No Atorvastat in Calcium 40 mg amLODIPine Besylate 10 mg amLODIPine Besylate 10 mg No amLODIPine Besylate 10 mg Clopidogrel Bisulfate 75 mg Clopidogrel Bisulfate 75 mg No Clopidogre l Bisulfate 75 mg Fluticasone Furoate-Silver anterol 100-25 MCG/INH Fluticasone Furoate-Silver anterol 100-25 MCG/INH No 1{puff} QD Fluticason e Furoate-Vi lanterol 100-25 MCG/INH Coreg 3.125 MG Coreg 3.125 MG No QD Coreg 3.125 MG Carbidopa-L evodopa 25-100 MG Carbidopa-L evodopa 25-100 MG No 1{table t} TID Carbidopa- Levodopa 25-100 MG Albuterol Sulfate HFA 108 (90 Base) MCG/ACT Albuterol Sulfate HFA 108 (90 Base) MCG/ACT No Albuterol Sulfate HFA 108 (90 Base) MCG/ACT Flomax 0.4 MG Flomax 0.4 MG No 2{capsu les} QD Flomax 0.4 MG Carbidopa-L evodopa 25-100 MG Carbidopa-L evodopa 25-100 MG No 1{table t} TID Carbidopa- Levodopa 25-100 MG Donepezil HCl 10 MG Donepezil HCl 10 MG No 1{table t_at_be dtime} QD Donepezil HCl 10 MG Coreg 3.125 MG Coreg 3.125 MG No QD Coreg 3.125 MG Tamsulosin HCl 0.4 mg Tamsulosin HCl 0.4 mg No Tamsulosin HCl 0.4 mg Folic Acid 1 mg Folic Acid 1 mg No Folic Acid 1 mg Aricept 10 MG Aricept 10 MG No 1{table t_at_be dtime} QD Aricept 10 MG Clopidogrel Bisulfate 75 mg Clopidogrel Bisulfate 75 mg No Clopidogre l Bisulfate 75 mg Carvedilol 12.5 mg Carvedilol 12.5 mg No Carvedilol 12.5 mg Fluticasone Furoate-Silver anterol 100-25 MCG/INH Fluticasone Furoate-Silver anterol 100-25 MCG/INH No 1{puff} QD Fluticason e Furoate-Vi lanterol 100-25 MCG/INH Atorvastati n Calcium 40 mg Atorvastati n Calcium 40 mg No Atorvastat in Calcium 40 mg Ventolin HFA 108 (90 Base) MCG/ACT Ventolin HFA 108 (90 Base) MCG/ACT No 2{puffs _as_nee ded} QID Ventolin HFA 108 (90 Base) MCG/ACT Albuterol Sulfate HFA 108 (90 Base) MCG/ACT Albuterol Sulfate HFA 108 (90 Base) MCG/ACT No Albuterol Sulfate HFA 108 (90 Base) MCG/ACT Aspirin 81 81 MG Aspirin 81 81 MG No 1{table t} QD Aspirin 81 81 MG amLODIPine Besylate 10 mg amLODIPine Besylate 10 mg No amLODIPine Besylate 10 mg Donepezil HCl 10 MG Donepezil HCl 10 MG No 1{table t_at_be dtime} QD Donepezil HCl 10 MG Coreg 12.5 MG Coreg 12.5 MG No BID Coreg 12.5 MG Folic Acid 1 MG Folic Acid 1 MG No Folic Acid 1 MG Flomax 0.4 MG Flomax 0.4 MG No 1{capsu le} Flomax 0.4 MG Clopidogrel Bisulfate 75 MG Clopidogrel Bisulfate 75 MG No Clopidogre l Bisulfate 75 MG Ketoconazol e 2 % Ketoconazol e 2 % No QD Ketoconazo le 2 % levETIRAcet am 500 MG levETIRAcet am 500 MG No levETIRAce summers 500 MG Albuterol Sulfate HFA 108 (90 Base) MCG/ACT Albuterol Sulfate HFA 108 (90 Base) MCG/ACT No Albuterol Sulfate HFA 108 (90 Base) MCG/ACT Aspirin 81 81 MG Aspirin 81 81 MG No 1{table t} QD Aspirin 81 81 MG Budesonide- Formoterol Fumarate 160-4.5 MCG/ACT Budesonide- Formoterol Fumarate 160-4.5 MCG/ACT No 2{puffs } BID Budesonide -Formotero l Fumarate 160-4.5 MCG/ACT buPROPion HCl ER (XL) 150 MG buPROPion HCl ER (XL) 150 MG No 1{table t_in_th e_morni ng} QD buPROPion HCl ER (XL) 150 MG Proscar 5 MG Proscar 5 MG No 1{table t} QD Proscar 5 MG Albuterol Sulfate (2.5 MG/3ML) 0.083% Albuterol Sulfate (2.5 MG/3ML) 0.083% No 3{ml_as _needed } QID Albuterol Sulfate (2.5 MG/3ML) 0.083% Flomax 0.4 MG Flomax 0.4 MG No 2{capsu les} QD Flomax 0.4 MG Memantine HCl 10 MG Memantine HCl 10 MG No 1{table t} BID Memantine HCl 10 MG Atorvastati n Calcium 40 MG Atorvastati n Calcium 40 MG No Atorvastat in Calcium 40 MG amLODIPine Besylate 2.5 MG amLODIPine Besylate 2.5 MG No 1{table t} QD amLODIPine Besylate 2.5 MG amLODIPine Besylate 5 MG amLODIPine Besylate 5 MG No amLODIPine Besylate 5 MG SEROquel 50 MG SEROquel 50 MG No 1{table t_at_be dtime} QD SEROquel 50 MG Donepezil HCl 10 MG Donepezil HCl 10 MG No 1{table t_at_be dtime} QD Donepezil HCl 10 MG Coreg 12.5 MG Coreg 12.5 MG No BID Coreg 12.5 MG Folic Acid 1 MG Folic Acid 1 MG No Folic Acid 1 MG Flomax 0.4 MG Flomax 0.4 MG No 1{capsu le} Flomax 0.4 MG Clopidogrel Bisulfate 75 MG Clopidogrel Bisulfate 75 MG No Clopidogre l Bisulfate 75 MG Ketoconazol e 2 % Ketoconazol e 2 % No QD Ketoconazo le 2 % levETIRAcet am 500 MG levETIRAcet am 500 MG No levETIRAce summers 500 MG Albuterol Sulfate HFA 108 (90 Base) MCG/ACT Albuterol Sulfate HFA 108 (90 Base) MCG/ACT No Albuterol Sulfate HFA 108 (90 Base) MCG/ACT Aspirin 81 81 MG Aspirin 81 81 MG No 1{table t} QD Aspirin 81 81 MG Budesonide- Formoterol Fumarate 160-4.5 MCG/ACT Budesonide- Formoterol Fumarate 160-4.5 MCG/ACT No 2{puffs } BID Budesonide -Formotero l Fumarate 160-4.5 MCG/ACT buPROPion HCl ER (XL) 150 MG buPROPion HCl ER (XL) 150 MG No 1{table t_in_th e_morni ng} QD buPROPion HCl ER (XL) 150 MG Proscar 5 MG Proscar 5 MG No 1{table t} QD Proscar 5 MG Albuterol Sulfate (2.5 MG/3ML) 0.083% Albuterol Sulfate (2.5 MG/3ML) 0.083% No 3{ml_as _needed } QID Albuterol Sulfate (2.5 MG/3ML) 0.083% Flomax 0.4 MG Flomax 0.4 MG No 2{capsu les} QD Flomax 0.4 MG Memantine HCl 10 MG Memantine HCl 10 MG No 1{table t} BID Memantine HCl 10 MG Atorvastati n Calcium 40 MG Atorvastati n Calcium 40 MG No Atorvastat in Calcium 40 MG amLODIPine Besylate 2.5 MG amLODIPine Besylate 2.5 MG No 1{table t} QD amLODIPine Besylate 2.5 MG amLODIPine Besylate 5 MG amLODIPine Besylate 5 MG No amLODIPine Besylate 5 MG SEROquel 50 MG SEROquel 50 MG No 1{table t_at_be dtime} QD SEROquel 50 MG Donepezil HCl 10 MG Donepezil HCl 10 MG No 1{table t_at_be dtime} QD Donepezil HCl 10 MG Coreg 12.5 MG Coreg 12.5 MG No BID Coreg 12.5 MG Folic Acid 1 MG Folic Acid 1 MG No Folic Acid 1 MG Flomax 0.4 MG Flomax 0.4 MG No 1{capsu le} Flomax 0.4 MG Clopidogrel Bisulfate 75 MG Clopidogrel Bisulfate 75 MG No Clopidogre l Bisulfate 75 MG Ketoconazol e 2 % Ketoconazol e 2 % No QD Ketoconazo le 2 % levETIRAcet am 500 MG levETIRAcet am 500 MG No levETIRAce summers 500 MG Albuterol Sulfate HFA 108 (90 Base) MCG/ACT Albuterol Sulfate HFA 108 (90 Base) MCG/ACT No Albuterol Sulfate HFA 108 (90 Base) MCG/ACT Aspirin 81 81 MG Aspirin 81 81 MG No 1{table t} QD Aspirin 81 81 MG Budesonide- Formoterol Fumarate 160-4.5 MCG/ACT Budesonide- Formoterol Fumarate 160-4.5 MCG/ACT No 2{puffs } BID Budesonide -Formotero l Fumarate 160-4.5 MCG/ACT buPROPion HCl ER (XL) 150 MG buPROPion HCl ER (XL) 150 MG No 1{table t_in_th e_morni ng} QD buPROPion HCl ER (XL) 150 MG Proscar 5 MG Proscar 5 MG No 1{table t} QD Proscar 5 MG Albuterol Sulfate (2.5 MG/3ML) 0.083% Albuterol Sulfate (2.5 MG/3ML) 0.083% No 3{ml_as _needed } QID Albuterol Sulfate (2.5 MG/3ML) 0.083% Flomax 0.4 MG Flomax 0.4 MG No 2{capsu les} QD Flomax 0.4 MG Memantine HCl 10 MG Memantine HCl 10 MG No 1{table t} BID Memantine HCl 10 MG Atorvastati n Calcium 40 MG Atorvastati n Calcium 40 MG No Atorvastat in Calcium 40 MG amLODIPine Besylate 2.5 MG amLODIPine Besylate 2.5 MG No 1{table t} QD amLODIPine Besylate 2.5 MG amLODIPine Besylate 5 MG amLODIPine Besylate 5 MG No amLODIPine Besylate 5 MG SEROquel 50 MG SEROquel 50 MG No 1{table t_at_be dtime} QD SEROquel 50 MG Melatonin 3 MG Melatonin 3 MG No 1{table t_at_be dtime_a s_neede d} QD Melatonin 3 MG Docusate Sodium 100 MG Docusate Sodium 100 MG No 1{capsu le_as_n eeded} QD Docusate Sodium 100 MG Ketoconazol e 2 % Ketoconazol e 2 % No QD Ketoconazo le 2 % Fluticasone Furoate-Silver anterol 100-25 MCG/INH Fluticasone Furoate-Silver anterol 100-25 MCG/INH No 1{puff} QD Fluticason e Furoate-Vi lanterol 100-25 MCG/INH Acetaminoph en 325 MG Acetaminoph en 325 MG No 1{table t_as_ne eded} 6xD Acetaminop hen 325 MG Coreg 12.5 MG Coreg 12.5 MG No BID Coreg 12.5 MG Memantine HCl 10 MG Memantine HCl 10 MG No 1{table t} BID Memantine HCl 10 MG amLODIPine Besylate 2.5 MG amLODIPine Besylate 2.5 MG No 1{table t} QD amLODIPine Besylate 2.5 MG Albuterol Sulfate (2.5 MG/3ML) 0.083% Albuterol Sulfate (2.5 MG/3ML) 0.083% No 3{ml_as _needed } QID Albuterol Sulfate (2.5 MG/3ML) 0.083% buPROPion HCl ER (XL) 150 MG buPROPion HCl ER (XL) 150 MG No 1{table t_in_th e_morni ng} QD buPROPion HCl ER (XL) 150 MG SEROquel 50 MG SEROquel 50 MG No 1{table t_at_be dtime} QD SEROquel 50 MG levETIRAcet am 500 MG levETIRAcet am 500 MG No levETIRAce summers 500 MG amLODIPine Besylate 5 MG amLODIPine Besylate 5 MG No amLODIPine Besylate 5 MG Albuterol Sulfate HFA 108 (90 Base) MCG/ACT Albuterol Sulfate HFA 108 (90 Base) MCG/ACT No Albuterol Sulfate HFA 108 (90 Base) MCG/ACT Atorvastati n Calcium 40 MG Atorvastati n Calcium 40 MG No Atorvastat in Calcium 40 MG Flomax 0.4 MG Flomax 0.4 MG No 1{capsu le} Flomax 0.4 MG Senna 8.6 MG Senna 8.6 MG No 1{table t} BID Senna 8.6 MG QUEtiapine Fumarate 25 MG QUEtiapine Fumarate 25 MG No 1{table t_at_be dtime} QD QUEtiapine Fumarate 25 MG Clopidogrel Bisulfate 75 MG Clopidogrel Bisulfate 75 MG No Clopidogre l Bisulfate 75 MG Simethicone 80 MG Simethicone 80 MG No 1{table t_after _meals_ and_at_ bedtime _as_nee ded} TID Simethicon e 80 MG Donepezil HCl 10 MG Donepezil HCl 10 MG No 1{table t_at_be dtime} QD Donepezil HCl 10 MG Folic Acid 1 MG Folic Acid 1 MG No Folic Acid 1 MG Aspirin 81 81 MG Aspirin 81 81 MG No 1{table t} QD Aspirin 81 81 MG Budesonide- Formoterol Fumarate 160-4.5 MCG/ACT Budesonide- Formoterol Fumarate 160-4.5 MCG/ACT No 2{puffs } BID Budesonide -Formotero l Fumarate 160-4.5 MCG/ACT Proscar 5 MG Proscar 5 MG No 1{table t} QD Proscar 5 MG Flomax 0.4 MG Flomax 0.4 MG No 2{capsu les} QD Flomax 0.4 MG Albuterol Sulfate (2.5 MG/3ML) 0.083% Albuterol Sulfate (2.5 MG/3ML) 0.083% No 3{ml_as _needed } QID Albuterol Sulfate (2.5 MG/3ML) 0.083% Aspirin 81 81 MG Aspirin 81 81 MG No 1{table t} QD Aspirin 81 81 MG Clopidogrel Bisulfate 75 MG Clopidogrel Bisulfate 75 MG No Clopidogre l Bisulfate 75 MG Flomax 0.4 MG Flomax 0.4 MG No 2{capsu les} QD Flomax 0.4 MG Coreg 12.5 MG Coreg 12.5 MG No 1{table t_with_ food} QD Coreg 12.5 MG amLODIPine Besylate 10 MG amLODIPine Besylate 10 MG No 1{table t} QD amLODIPine Besylate 10 MG Atorvastati n Calcium 40 MG Atorvastati n Calcium 40 MG No Atorvastat in Calcium 40 MG Ventolin HFA 108 (90 Base) MCG/ACT Ventolin HFA 108 (90 Base) MCG/ACT No 2{puffs _as_nee ded} QID Ventolin HFA 108 (90 Base) MCG/ACT Folic Acid 1 MG Folic Acid 1 MG No 1{table t} QD Folic Acid 1 MG Atorvastati n Calcium 40 MG Atorvastati n Calcium 40 MG No 1{table t} QD Atorvastat in Calcium 40 MG Clopidogrel Bisulfate 75 MG Clopidogrel Bisulfate 75 MG No 1{table t} QD Clopidogre l Bisulfate 75 MG Coreg 3.125 MG Coreg 3.125 MG No QD Coreg 3.125 MG Clopidogrel Bisulfate 75 MG Clopidogrel Bisulfate 75 MG No 1{table t} QD Clopidogre l Bisulfate 75 MG Albuterol Sulfate (2.5 MG/3ML) 0.083% Albuterol Sulfate (2.5 MG/3ML) 0.083% No 3{ml_as _needed } QID Albuterol Sulfate (2.5 MG/3ML) 0.083% Folic Acid 1 MG Folic Acid 1 MG No 1{table t} QD Folic Acid 1 MG Aricept 10 MG Aricept 10 MG No 1{table t_at_be dtime} QD Aricept 10 MG Aspirin 81 81 MG Aspirin 81 81 MG No 1{table t} QD Aspirin 81 81 MG Atorvastati n Calcium 40 MG Atorvastati n Calcium 40 MG No Atorvastat in Calcium 40 MG Flomax 0.4 MG Flomax 0.4 MG No 2{capsu les} QD Flomax 0.4 MG Clopidogrel Bisulfate 75 MG Clopidogrel Bisulfate 75 MG No Clopidogre l Bisulfate 75 MG Ventolin HFA 108 (90 Base) MCG/ACT Ventolin HFA 108 (90 Base) MCG/ACT No 2{puffs _as_nee ded} QID Ventolin HFA 108 (90 Base) MCG/ACT amLODIPine Besylate 10 MG amLODIPine Besylate 10 MG No 1{table t} QD amLODIPine Besylate 10 MG Coreg 3.125 MG Coreg 3.125 MG No QD Coreg 3.125 MG Coreg 12.5 MG Coreg 12.5 MG No 1{table t_with_ food} QD Coreg 12.5 MG Carbidopa-L evodopa 10-100 MG Carbidopa-L evodopa 10-100 MG No 1{table t} TID Carbidopa- Levodopa 10-100 MG Fluticasone Furoate-Silver anterol 100-25 MCG/INH Fluticasone Furoate-Silver anterol 100-25 MCG/INH No 1{puff} QD Fluticason e Furoate-Vi lanterol 100-25 MCG/INH Atorvastati n Calcium 40 MG Atorvastati n Calcium 40 MG No 1{table t} QD Atorvastat in Calcium 40 MG Clopidogrel Bisulfate 75 MG Clopidogrel Bisulfate 75 MG No 1{table t} QD Clopidogre l Bisulfate 75 MG Albuterol Sulfate (2.5 MG/3ML) 0.083% Albuterol Sulfate (2.5 MG/3ML) 0.083% No 3{ml_as _needed } QID Albuterol Sulfate (2.5 MG/3ML) 0.083% Folic Acid 1 MG Folic Acid 1 MG No 1{table t} QD Folic Acid 1 MG Aricept 10 MG Aricept 10 MG No 1{table t_at_be dtime} QD Aricept 10 MG Aspirin 81 81 MG Aspirin 81 81 MG No 1{table t} QD Aspirin 81 81 MG Atorvastati n Calcium 40 MG Atorvastati n Calcium 40 MG No Atorvastat in Calcium 40 MG Flomax 0.4 MG Flomax 0.4 MG No 2{capsu les} QD Flomax 0.4 MG Clopidogrel Bisulfate 75 MG Clopidogrel Bisulfate 75 MG No Clopidogre l Bisulfate 75 MG Ventolin HFA 108 (90 Base) MCG/ACT Ventolin HFA 108 (90 Base) MCG/ACT No 2{puffs _as_nee ded} QID Ventolin HFA 108 (90 Base) MCG/ACT amLODIPine Besylate 10 MG amLODIPine Besylate 10 MG No 1{table t} QD amLODIPine Besylate 10 MG Coreg 3.125 MG Coreg 3.125 MG No QD Coreg 3.125 MG Coreg 12.5 MG Coreg 12.5 MG No 1{table t_with_ food} QD Coreg 12.5 MG Carbidopa-L evodopa 10-100 MG Carbidopa-L evodopa 10-100 MG No 1{table t} TID Carbidopa- Levodopa 10-100 MG Fluticasone Furoate-Silver anterol 100-25 MCG/INH Fluticasone Furoate-Silver anterol 100-25 MCG/INH No 1{puff} QD Fluticason e Furoate-Vi lanterol 100-25 MCG/INH Atorvastati n Calcium 40 MG Atorvastati n Calcium 40 MG No 1{table t} QD Atorvastat in Calcium 40 MG Coreg 3.125 MG Coreg 3.125 MG No QD Coreg 3.125 MG Aspirin 81 81 MG Aspirin 81 81 MG No 1{table t} QD Aspirin 81 81 MG Atorvastati n Calcium 40 MG Atorvastati n Calcium 40 MG No Atorvastat in Calcium 40 MG Aricept 10 MG Aricept 10 MG No 1{table t_at_be dtime} QD Aricept 10 MG Carbidopa-L evodopa 10-100 MG Carbidopa-L evodopa 10-100 MG No 1{table t} TID Carbidopa- Levodopa 10-100 MG Flomax 0.4 MG Flomax 0.4 MG No 2{capsu les} QD Flomax 0.4 MG Albuterol Sulfate (2.5 MG/3ML) 0.083% Albuterol Sulfate (2.5 MG/3ML) 0.083% No 3{ml_as _needed } QID Albuterol Sulfate (2.5 MG/3ML) 0.083% Folic Acid 1 MG Folic Acid 1 MG No 1{table t} QD Folic Acid 1 MG amLODIPine Besylate 10 MG amLODIPine Besylate 10 MG No 1{table t} QD amLODIPine Besylate 10 MG Fluticasone Furoate-Silver anterol 100-25 MCG/INH Fluticasone Furoate-Silver anterol 100-25 MCG/INH No 1{puff} QD Fluticason e Furoate-Vi lanterol 100-25 MCG/INH Coreg 12.5 MG Coreg 12.5 MG No 1{table t_with_ food} QD Coreg 12.5 MG Clopidogrel Bisulfate 75 mg Clopidogrel Bisulfate 75 mg No Clopidogre l Bisulfate 75 mg Ventolin HFA 108 (90 Base) MCG/ACT Ventolin HFA 108 (90 Base) MCG/ACT No 2{puffs _as_nee ded} QID Ventolin HFA 108 (90 Base) MCG/ACT Atorvastati n Calcium 40 MG Atorvastati n Calcium 40 MG No 1{table t} QD Atorvastat in Calcium 40 MG Coreg 3.125 MG Coreg 3.125 MG No QD Coreg 3.125 MG Aspirin 81 81 MG Aspirin 81 81 MG No 1{table t} QD Aspirin 81 81 MG Atorvastati n Calcium 40 MG Atorvastati n Calcium 40 MG No Atorvastat in Calcium 40 MG Aricept 10 MG Aricept 10 MG No 1{table t_at_be dtime} QD Aricept 10 MG Carbidopa-L evodopa 10-100 MG Carbidopa-L evodopa 10-100 MG No 1{table t} TID Carbidopa- Levodopa 10-100 MG Flomax 0.4 MG Flomax 0.4 MG No 2{capsu les} QD Flomax 0.4 MG Albuterol Sulfate (2.5 MG/3ML) 0.083% Albuterol Sulfate (2.5 MG/3ML) 0.083% No 3{ml_as _needed } QID Albuterol Sulfate (2.5 MG/3ML) 0.083% Folic Acid 1 MG Folic Acid 1 MG No 1{table t} QD Folic Acid 1 MG amLODIPine Besylate 10 MG amLODIPine Besylate 10 MG No 1{table t} QD amLODIPine Besylate 10 MG Fluticasone Furoate-Silver anterol 100-25 MCG/INH Fluticasone Furoate-Silver anterol 100-25 MCG/INH No 1{puff} QD Fluticason e Furoate-Vi lanterol 100-25 MCG/INH Coreg 12.5 MG Coreg 12.5 MG No 1{table t_with_ food} QD Coreg 12.5 MG Clopidogrel Bisulfate 75 mg Clopidogrel Bisulfate 75 mg No Clopidogre l Bisulfate 75 mg Ventolin HFA 108 (90 Base) MCG/ACT Ventolin HFA 108 (90 Base) MCG/ACT No 2{puffs _as_nee ded} QID Ventolin HFA 108 (90 Base) MCG/ACT Atorvastati n Calcium 40 MG Atorvastati n Calcium 40 MG No 1{table t} QD Atorvastat in Calcium 40 MG Coreg 3.125 MG Coreg 3.125 MG No QD Coreg 3.125 MG Aspirin 81 81 MG Aspirin 81 81 MG No 1{table t} QD Aspirin 81 81 MG Atorvastati n Calcium 40 MG Atorvastati n Calcium 40 MG No Atorvastat in Calcium 40 MG Aricept 10 MG Aricept 10 MG No 1{table t_at_be dtime} QD Aricept 10 MG Carbidopa-L evodopa 10-100 MG Carbidopa-L evodopa 10-100 MG No 1{table t} TID Carbidopa- Levodopa 10-100 MG Flomax 0.4 MG Flomax 0.4 MG No 2{capsu les} QD Flomax 0.4 MG Albuterol Sulfate (2.5 MG/3ML) 0.083% Albuterol Sulfate (2.5 MG/3ML) 0.083% No 3{ml_as _needed } QID Albuterol Sulfate (2.5 MG/3ML) 0.083% Folic Acid 1 MG Folic Acid 1 MG No 1{table t} QD Folic Acid 1 MG amLODIPine Besylate 10 MG amLODIPine Besylate 10 MG No 1{table t} QD amLODIPine Besylate 10 MG Fluticasone Furoate-Silver anterol 100-25 MCG/INH Fluticasone Furoate-Silver anterol 100-25 MCG/INH No 1{puff} QD Fluticason e Furoate-Vi lanterol 100-25 MCG/INH Coreg 12.5 MG Coreg 12.5 MG No 1{table t_with_ food} QD Coreg 12.5 MG Clopidogrel Bisulfate 75 mg Clopidogrel Bisulfate 75 mg No Clopidogre l Bisulfate 75 mg Ventolin HFA 108 (90 Base) MCG/ACT Ventolin HFA 108 (90 Base) MCG/ACT No 2{puffs _as_nee ded} QID Ventolin HFA 108 (90 Base) MCG/ACT Atorvastati n Calcium 40 MG Atorvastati n Calcium 40 MG No 1{table t} QD Atorvastat in Calcium 40 MG Carbidopa-L evodopa 10-100 MG Carbidopa-L evodopa 10-100 MG No 1{table t} TID Carbidopa- Levodopa 10-100 MG Clopidogrel Bisulfate 75 mg Clopidogrel Bisulfate 75 mg No Clopidogre l Bisulfate 75 mg Flomax 0.4 MG Flomax 0.4 MG No 2{capsu les} QD Flomax 0.4 MG Albuterol Sulfate (2.5 MG/3ML) 0.083% Albuterol Sulfate (2.5 MG/3ML) 0.083% No 3{ml_as _needed } QID Albuterol Sulfate (2.5 MG/3ML) 0.083% Coreg 3.125 MG Coreg 3.125 MG No QD Coreg 3.125 MG Folic Acid 1 MG Folic Acid 1 MG No 1{table t} QD Folic Acid 1 MG Fluticasone Furoate-Silver anterol 100-25 MCG/INH Fluticasone Furoate-Silver anterol 100-25 MCG/INH No 1{puff} QD Fluticason e Furoate-Vi lanterol 100-25 MCG/INH amLODIPine Besylate 10 MG amLODIPine Besylate 10 MG No 1{table t} QD amLODIPine Besylate 10 MG Atorvastati n Calcium 40 MG Atorvastati n Calcium 40 MG No 1{table t} QD Atorvastat in Calcium 40 MG Atorvastati n Calcium 40 MG Atorvastati n Calcium 40 MG No Atorvastat in Calcium 40 MG Aricept 10 MG Aricept 10 MG No 1{table t_at_be dtime} QD Aricept 10 MG Coreg 12.5 MG Coreg 12.5 MG No 1{table t_with_ food} QD Coreg 12.5 MG Aspirin 81 81 MG Aspirin 81 81 MG No 1{table t} QD Aspirin 81 81 MG Ventolin HFA 108 (90 Base) MCG/ACT Ventolin HFA 108 (90 Base) MCG/ACT No 2{puffs _as_nee ded} QID Ventolin HFA 108 (90 Base) MCG/ACT Clopidogrel Bisulfate 75 MG Clopidogrel Bisulfate 75 MG No 1{table t} QD Clopidogre l Bisulfate 75 MG Tamsulosin HCl 0.4 MG Tamsulosin HCl 0.4 MG No Tamsulosin HCl 0.4 MG Clopidogrel Bisulfate 75 mg Clopidogrel Bisulfate 75 mg No Clopidogre l Bisulfate 75 mg Flomax 0.4 MG Flomax 0.4 MG No 2{capsu les} QD Flomax 0.4 MG Aricept 10 MG Aricept 10 MG No 1{table t_at_be dtime} QD Aricept 10 MG Atorvastati n Calcium 40 MG Atorvastati n Calcium 40 MG No 1{table t} QD Atorvastat in Calcium 40 MG Albuterol Sulfate (2.5 MG/3ML) 0.083% Albuterol Sulfate (2.5 MG/3ML) 0.083% No 3{ml_as _needed } QID Albuterol Sulfate (2.5 MG/3ML) 0.083% Ventolin HFA 108 (90 Base) MCG/ACT Ventolin HFA 108 (90 Base) MCG/ACT No 2{puffs _as_nee ded} QID Ventolin HFA 108 (90 Base) MCG/ACT Carbidopa-L evodopa 10-100 MG Carbidopa-L evodopa 10-100 MG No 1{table t} TID Carbidopa- Levodopa 10-100 MG Tamsulosin HCl 0.4 MG Tamsulosin HCl 0.4 MG No Tamsulosin HCl 0.4 MG Clopidogrel Bisulfate 75 MG Clopidogrel Bisulfate 75 MG No 1{table t} QD Clopidogre l Bisulfate 75 MG Aspirin 81 81 MG Aspirin 81 81 MG No 1{table t} QD Aspirin 81 81 MG Coreg 12.5 MG Coreg 12.5 MG No 1{table t_with_ food} QD Coreg 12.5 MG Atorvastati n Calcium 40 MG Atorvastati n Calcium 40 MG No Atorvastat in Calcium 40 MG Folic Acid 1 MG Folic Acid 1 MG No 1{table t} QD Folic Acid 1 MG Fluticasone Furoate-Silver anterol 100-25 MCG/INH Fluticasone Furoate-Silver anterol 100-25 MCG/INH No 1{puff} QD Fluticason e Furoate-Vi lanterol 100-25 MCG/INH amLODIPine Besylate 10 MG amLODIPine Besylate 10 MG No 1{table t} QD amLODIPine Besylate 10 MG Coreg 3.125 MG Coreg 3.125 MG No QD Coreg 3.125 MG Flomax 0.4 MG Flomax 0.4 MG No 2{capsu les} QD Flomax 0.4 MG Coreg 3.125 MG Coreg 3.125 MG No QD Coreg 3.125 MG Atorvastati n Calcium 40 MG Atorvastati n Calcium 40 MG No Atorvastat in Calcium 40 MG Clopidogrel Bisulfate 75 mg Clopidogrel Bisulfate 75 mg No Clopidogre l Bisulfate 75 mg Ventolin HFA 108 (90 Base) MCG/ACT Ventolin HFA 108 (90 Base) MCG/ACT No 2{puffs _as_nee ded} QID Ventolin HFA 108 (90 Base) MCG/ACT Carbidopa-L evodopa 10-100 MG Carbidopa-L evodopa 10-100 MG No 1{table t} TID Carbidopa- Levodopa 10-100 MG Albuterol Sulfate (2.5 MG/3ML) 0.083% Albuterol Sulfate (2.5 MG/3ML) 0.083% No 3{ml_as _needed } QID Albuterol Sulfate (2.5 MG/3ML) 0.083% Fluticasone Furoate-Silver anterol 100-25 MCG/INH Fluticasone Furoate-Silver anterol 100-25 MCG/INH No 1{puff} QD Fluticason e Furoate-Vi lanterol 100-25 MCG/INH Clopidogrel Bisulfate 75 MG Clopidogrel Bisulfate 75 MG No 1{table t} QD Clopidogre l Bisulfate 75 MG Aricept 10 MG Aricept 10 MG No 1{table t_at_be dtime} QD Aricept 10 MG Atorvastati n Calcium 40 MG Atorvastati n Calcium 40 MG No 1{table t} QD Atorvastat in Calcium 40 MG Folic Acid 1 MG Folic Acid 1 MG No 1{table t} QD Folic Acid 1 MG amLODIPine Besylate 10 MG amLODIPine Besylate 10 MG No 1{table t} QD amLODIPine Besylate 10 MG Tamsulosin HCl 0.4 MG Tamsulosin HCl 0.4 MG No Tamsulosin HCl 0.4 MG Albuterol Sulfate HFA 108 (90 Base) MCG/ACT Albuterol Sulfate HFA 108 (90 Base) MCG/ACT No Albuterol Sulfate HFA 108 (90 Base) MCG/ACT Aspirin 81 81 MG Aspirin 81 81 MG No 1{table t} QD Aspirin 81 81 MG Coreg 12.5 MG Coreg 12.5 MG No 1{table t_with_ food} QD Coreg 12.5 MG Albuterol Sulfate (2.5 MG/3ML) 0.083% Albuterol Sulfate (2.5 MG/3ML) 0.083% No 3{ml_as _needed } QID Albuterol Sulfate (2.5 MG/3ML) 0.083% Aspirin 81 81 MG Aspirin 81 81 MG No 1{table t} QD Aspirin 81 81 MG Coreg 3.125 MG Coreg 3.125 MG No QD Coreg 3.125 MG Fluticasone Furoate-Silver anterol 100-25 MCG/INH Fluticasone Furoate-Silver anterol 100-25 MCG/INH No 1{puff} QD Fluticason e Furoate-Vi lanterol 100-25 MCG/INH Carbidopa-L evodopa 25-100 MG Carbidopa-L evodopa 25-100 MG No 1{table t} TID Carbidopa- Levodopa 25-100 MG Folic Acid 1 MG Folic Acid 1 MG No 1{table t} QD Folic Acid 1 MG amLODIPine Besylate 10 MG amLODIPine Besylate 10 MG No 1{table t} QD amLODIPine Besylate 10 MG Flomax 0.4 MG Flomax 0.4 MG No 2{capsu les} QD Flomax 0.4 MG Clopidogrel Bisulfate 75 MG Clopidogrel Bisulfate 75 MG No 1{table t} QD Clopidogre l Bisulfate 75 MG Coreg 12.5 MG Coreg 12.5 MG No 1{table t_with_ food} QD Coreg 12.5 MG Atorvastati n Calcium 40 MG Atorvastati n Calcium 40 MG No 1{table t} QD Atorvastat in Calcium 40 MG Aricept 10 MG Aricept 10 MG No 1{table t_at_be dtime} QD Aricept 10 MG Ventolin HFA 108 (90 Base) MCG/ACT Ventolin HFA 108 (90 Base) MCG/ACT No 2{puffs _as_nee ded} QID Ventolin HFA 108 (90 Base) MCG/ACT Carbidopa-L evodopa 25-100 MG Carbidopa-L evodopa 25-100 MG No 1{table t} TID Carbidopa- Levodopa 25-100 MG Coreg 3.125 MG Coreg 3.125 MG No QD Coreg 3.125 MG Coreg 12.5 MG Coreg 12.5 MG No 1{table t_with_ food} QD Coreg 12.5 MG Atorvastati n Calcium 40 MG Atorvastati n Calcium 40 MG No 1{table t} QD Atorvastat in Calcium 40 MG Fluticasone Furoate-Silver anterol 100-25 MCG/INH Fluticasone Furoate-Silver anterol 100-25 MCG/INH No 1{puff} QD Fluticason e Furoate-Vi lanterol 100-25 MCG/INH Flomax 0.4 MG Flomax 0.4 MG No 2{capsu les} QD Flomax 0.4 MG Aricept 10 MG Aricept 10 MG No 1{table t_at_be dtime} QD Aricept 10 MG Folic Acid 1 MG Folic Acid 1 MG No 1{table t} QD Folic Acid 1 MG Ventolin HFA 108 (90 Base) MCG/ACT Ventolin HFA 108 (90 Base) MCG/ACT No 2{puffs _as_nee ded} QID Ventolin HFA 108 (90 Base) MCG/ACT Albuterol Sulfate (2.5 MG/3ML) 0.083% Albuterol Sulfate (2.5 MG/3ML) 0.083% No 3{ml_as _needed } QID Albuterol Sulfate (2.5 MG/3ML) 0.083% Clopidogrel Bisulfate 75 MG Clopidogrel Bisulfate 75 MG No 1{table t} QD Clopidogre l Bisulfate 75 MG amLODIPine Besylate 10 MG amLODIPine Besylate 10 MG No 1{table t} QD amLODIPine Besylate 10 MG Aspirin 81 81 MG Aspirin 81 81 MG No 1{table t} QD Aspirin 81 81 MG Coreg 3.125 MG Coreg 3.125 MG No QD Coreg 3.125 MG Carbidopa-L evodopa 25-100 MG Carbidopa-L evodopa 25-100 MG No 1{table t} TID Carbidopa- Levodopa 25-100 MG Coreg 3.125 MG Coreg 3.125 MG No QD Coreg 3.125 MG Coreg 12.5 MG Coreg 12.5 MG No 1{table t_with_ food} QD Coreg 12.5 MG Atorvastati n Calcium 40 MG Atorvastati n Calcium 40 MG No 1{table t} QD Atorvastat in Calcium 40 MG Fluticasone Furoate-Silver anterol 100-25 MCG/INH Fluticasone Furoate-Silver anterol 100-25 MCG/INH No 1{puff} QD Fluticason e Furoate-Vi lanterol 100-25 MCG/INH Aspirin 81 81 MG Aspirin 81 81 MG No 1{table t} QD Aspirin 81 81 MG Flomax 0.4 MG Flomax 0.4 MG No 2{capsu les} QD Flomax 0.4 MG Aricept 10 MG Aricept 10 MG No 1{table t_at_be dtime} QD Aricept 10 MG Folic Acid 1 MG Folic Acid 1 MG No 1{table t} QD Folic Acid 1 MG Ventolin HFA 108 (90 Base) MCG/ACT Ventolin HFA 108 (90 Base) MCG/ACT No 2{puffs _as_nee ded} QID Ventolin HFA 108 (90 Base) MCG/ACT Albuterol Sulfate (2.5 MG/3ML) 0.083% Albuterol Sulfate (2.5 MG/3ML) 0.083% No 3{ml_as _needed } QID Albuterol Sulfate (2.5 MG/3ML) 0.083% Clopidogrel Bisulfate 75 MG Clopidogrel Bisulfate 75 MG No 1{table t} QD Clopidogre l Bisulfate 75 MG amLODIPine Besylate 10 MG amLODIPine Besylate 10 MG No 1{table t} QD amLODIPine Besylate 10 MG Aspirin 81 81 MG Aspirin 81 81 MG No 1{table t} QD Aspirin 81 81 MG Atorvastati n Calcium 40 MG Atorvastati n Calcium 40 MG No Atorvastat in Calcium 40 MG Aricept 10 MG Aricept 10 MG No 1{table t_at_be dtime} QD Aricept 10 MG Carbidopa-L evodopa 10-100 MG Carbidopa-L evodopa 10-100 MG No 1{table t} TID Carbidopa- Levodopa 10-100 MG Donepezil HCl 10 MG Donepezil HCl 10 MG No 1{table t_at_be dtime} QD Donepezil HCl 10 MG Carbidopa-L evodopa 25-100 MG Carbidopa-L evodopa 25-100 MG No 1{table t} TID Carbidopa- Levodopa 25-100 MG Clopidogrel Bisulfate 75 mg Clopidogrel Bisulfate 75 mg No Clopidogre l Bisulfate 75 mg Carvedilol 12.5 mg Carvedilol 12.5 mg No Carvedilol 12.5 mg Atorvastati n Calcium 40 MG Atorvastati n Calcium 40 MG No 1{table t} QD Atorvastat in Calcium 40 MG Atorvastati n Calcium 40 MG Atorvastati n Calcium 40 MG No Atorvastat in Calcium 40 MG Coreg 12.5 MG Coreg 12.5 MG No 1{table t_with_ food} QD Coreg 12.5 MG Flomax 0.4 MG Flomax 0.4 MG No 2{capsu les} QD Flomax 0.4 MG amLODIPine Besylate 10 MG amLODIPine Besylate 10 MG No 1{table t} QD amLODIPine Besylate 10 MG Flomax 0.4 MG Flomax 0.4 MG No 2{capsu les} QD Flomax 0.4 MG Tamsulosin HCl 0.4 mg Tamsulosin HCl 0.4 mg No Tamsulosin HCl 0.4 mg Ventolin HFA 108 (90 Base) MCG/ACT Ventolin HFA 108 (90 Base) MCG/ACT No 2{puffs _as_nee ded} QID Ventolin HFA 108 (90 Base) MCG/ACT Aspirin 81 81 MG Aspirin 81 81 MG No 1{table t} QD Aspirin 81 81 MG Aricept 10 MG Aricept 10 MG No 1{table t_at_be dtime} QD Aricept 10 MG Albuterol Sulfate HFA 108 (90 Base) MCG/ACT Albuterol Sulfate HFA 108 (90 Base) MCG/ACT No Albuterol Sulfate HFA 108 (90 Base) MCG/ACT Coreg 3.125 MG Coreg 3.125 MG No QD Coreg 3.125 MG Clopidogrel Bisulfate 75 MG Clopidogrel Bisulfate 75 MG No 1{table t} QD Clopidogre l Bisulfate 75 MG Albuterol Sulfate (2.5 MG/3ML) 0.083% Albuterol Sulfate (2.5 MG/3ML) 0.083% No 3{ml_as _needed } QID Albuterol Sulfate (2.5 MG/3ML) 0.083% Fluticasone Furoate-Silver anterol 100-25 MCG/INH Fluticasone Furoate-Silver anterol 100-25 MCG/INH No 1{puff} QD Fluticason e Furoate-Vi lanterol 100-25 MCG/INH Folic Acid 1 MG Folic Acid 1 MG No 1{table t} QD Folic Acid 1 MG Folic Acid 1 MG Folic Acid 1 MG No 1{table t} QD Folic Acid 1 MG Donepezil HCl 10 MG Donepezil HCl 10 MG No 1{table t_at_be dtime} QD Donepezil HCl 10 MG Carbidopa-L evodopa 25-100 MG Carbidopa-L evodopa 25-100 MG No 1{table t} TID Carbidopa- Levodopa 25-100 MG Clopidogrel Bisulfate 75 mg Clopidogrel Bisulfate 75 mg No Clopidogre l Bisulfate 75 mg Carvedilol 12.5 mg Carvedilol 12.5 mg No Carvedilol 12.5 mg Atorvastati n Calcium 40 MG Atorvastati n Calcium 40 MG No 1{table t} QD Atorvastat in Calcium 40 MG amLODIPine Besylate 10 MG amLODIPine Besylate 10 MG No 1{table t} QD amLODIPine Besylate 10 MG Atorvastati n Calcium 40 MG Atorvastati n Calcium 40 MG No Atorvastat in Calcium 40 MG Coreg 12.5 MG Coreg 12.5 MG No 1{table t_with_ food} QD Coreg 12.5 MG amLODIPine Besylate 10 MG amLODIPine Besylate 10 MG No 1{table t} QD amLODIPine Besylate 10 MG Flomax 0.4 MG Flomax 0.4 MG No 2{capsu les} QD Flomax 0.4 MG Tamsulosin HCl 0.4 mg Tamsulosin HCl 0.4 mg No Tamsulosin HCl 0.4 mg Ventolin HFA 108 (90 Base) MCG/ACT Ventolin HFA 108 (90 Base) MCG/ACT No 2{puffs _as_nee ded} QID Ventolin HFA 108 (90 Base) MCG/ACT Aspirin 81 81 MG Aspirin 81 81 MG No 1{table t} QD Aspirin 81 81 MG Aricept 10 MG Aricept 10 MG No 1{table t_at_be dtime} QD Aricept 10 MG Albuterol Sulfate HFA 108 (90 Base) MCG/ACT Albuterol Sulfate HFA 108 (90 Base) MCG/ACT No Albuterol Sulfate HFA 108 (90 Base) MCG/ACT Fluticasone Furoate-Silver anterol 100-25 MCG/INH Fluticasone Furoate-Silver anterol 100-25 MCG/INH No 1{puff} QD Fluticason e Furoate-Vi lanterol 100-25 MCG/INH Coreg 3.125 MG Coreg 3.125 MG No QD Coreg 3.125 MG Clopidogrel Bisulfate 75 MG Clopidogrel Bisulfate 75 MG No 1{table t} QD Clopidogre l Bisulfate 75 MG Fluticasone Furoate-Silver anterol 100-25 MCG/INH Fluticasone Furoate-Silver anterol 100-25 MCG/INH No 1{puff} QD Fluticason e Furoate-Vi lanterol 100-25 MCG/INH Folic Acid 1 MG Folic Acid 1 MG No 1{table t} QD Folic Acid 1 MG Coreg 12.5 MG Coreg 12.5 MG No 1{table t_with_ food} QD Coreg 12.5 MG Clopidogrel Bisulfate 75 mg Clopidogrel Bisulfate 75 mg No Clopidogre l Bisulfate 75 mg Donepezil HCl 10 MG Donepezil HCl 10 MG No 1{table t_at_be dtime} QD Donepezil HCl 10 MG Carbidopa-L evodopa 25-100 MG Carbidopa-L evodopa 25-100 MG No 1{table t} TID Carbidopa- Levodopa 25-100 MG Clopidogrel Bisulfate 75 mg Clopidogrel Bisulfate 75 mg No Clopidogre l Bisulfate 75 mg Carvedilol 12.5 mg Carvedilol 12.5 mg No Carvedilol 12.5 mg Ventolin HFA 108 (90 Base) MCG/ACT Ventolin HFA 108 (90 Base) MCG/ACT No 2{puffs _as_nee ded} QID Ventolin HFA 108 (90 Base) MCG/ACT Atorvastati n Calcium 40 MG Atorvastati n Calcium 40 MG No 1{table t} QD Atorvastat in Calcium 40 MG Atorvastati n Calcium 40 MG Atorvastati n Calcium 40 MG No Atorvastat in Calcium 40 MG Coreg 12.5 MG Coreg 12.5 MG No 1{table t_with_ food} QD Coreg 12.5 MG amLODIPine Besylate 10 MG amLODIPine Besylate 10 MG No 1{table t} QD amLODIPine Besylate 10 MG Flomax 0.4 MG Flomax 0.4 MG No 2{capsu les} QD Flomax 0.4 MG Tamsulosin HCl 0.4 mg Tamsulosin HCl 0.4 mg No Tamsulosin HCl 0.4 mg Ventolin HFA 108 (90 Base) MCG/ACT Ventolin HFA 108 (90 Base) MCG/ACT No 2{puffs _as_nee ded} QID Ventolin HFA 108 (90 Base) MCG/ACT Aspirin 81 81 MG Aspirin 81 81 MG No 1{table t} QD Aspirin 81 81 MG Aricept 10 MG Aricept 10 MG No 1{table t_at_be dtime} QD Aricept 10 MG Albuterol Sulfate HFA 108 (90 Base) MCG/ACT Albuterol Sulfate HFA 108 (90 Base) MCG/ACT No Albuterol Sulfate HFA 108 (90 Base) MCG/ACT Atorvastati n Calcium 40 MG Atorvastati n Calcium 40 MG No 1{table t} QD Atorvastat in Calcium 40 MG Coreg 3.125 MG Coreg 3.125 MG No QD Coreg 3.125 MG Clopidogrel Bisulfate 75 MG Clopidogrel Bisulfate 75 MG No 1{table t} QD Clopidogre l Bisulfate 75 MG Fluticasone Furoate-Silver anterol 100-25 MCG/INH Fluticasone Furoate-Silver anterol 100-25 MCG/INH No 1{puff} QD Fluticason e Furoate-Vi lanterol 100-25 MCG/INH Folic Acid 1 MG Folic Acid 1 MG No 1{table t} QD Folic Acid 1 MG Donepezil HCl 10 MG Donepezil HCl 10 MG No 1{table t_at_be dtime} QD Donepezil HCl 10 MG Carbidopa-L evodopa 25-100 MG Carbidopa-L evodopa 25-100 MG No 1{table t} TID Carbidopa- Levodopa 25-100 MG Clopidogrel Bisulfate 75 mg Clopidogrel Bisulfate 75 mg No Clopidogre l Bisulfate 75 mg Carvedilol 12.5 mg Carvedilol 12.5 mg No Carvedilol 12.5 mg Atorvastati n Calcium 40 MG Atorvastati n Calcium 40 MG No 1{table t} QD Atorvastat in Calcium 40 MG Atorvastati n Calcium 40 MG Atorvastati n Calcium 40 MG No Atorvastat in Calcium 40 MG Coreg 12.5 MG Coreg 12.5 MG No 1{table t_with_ food} QD Coreg 12.5 MG amLODIPine Besylate 10 MG amLODIPine Besylate 10 MG No 1{table t} QD amLODIPine Besylate 10 MG Flomax 0.4 MG Flomax 0.4 MG No 2{capsu les} QD Flomax 0.4 MG Tamsulosin HCl 0.4 mg Tamsulosin HCl 0.4 mg No Tamsulosin HCl 0.4 mg Ventolin HFA 108 (90 Base) MCG/ACT Ventolin HFA 108 (90 Base) MCG/ACT No 2{puffs _as_nee ded} QID Ventolin HFA 108 (90 Base) MCG/ACT Aspirin 81 81 MG Aspirin 81 81 MG No 1{table t} QD Aspirin 81 81 MG Aricept 10 MG Aricept 10 MG No 1{table t_at_be dtime} QD Aricept 10 MG Albuterol Sulfate HFA 108 (90 Base) MCG/ACT Albuterol Sulfate HFA 108 (90 Base) MCG/ACT No Albuterol Sulfate HFA 108 (90 Base) MCG/ACT Coreg 3.125 MG Coreg 3.125 MG No QD Coreg 3.125 MG Clopidogrel Bisulfate 75 MG Clopidogrel Bisulfate 75 MG No 1{table t} QD Clopidogre l Bisulfate 75 MG Fluticasone Furoate-Silver anterol 100-25 MCG/INH Fluticasone Furoate-Silver anterol 100-25 MCG/INH No 1{puff} QD Fluticason e Furoate-Vi lanterol 100-25 MCG/INH Folic Acid 1 MG Folic Acid 1 MG No 1{table t} QD Folic Acid 1 MG Donepezil HCl 10 MG Donepezil HCl 10 MG No 1{table t_at_be dtime} QD Donepezil HCl 10 MG Carbidopa-L evodopa 25-100 MG Carbidopa-L evodopa 25-100 MG No 1{table t} TID Carbidopa- Levodopa 25-100 MG Clopidogrel Bisulfate 75 mg Clopidogrel Bisulfate 75 mg No Clopidogre l Bisulfate 75 mg Carvedilol 12.5 mg Carvedilol 12.5 mg No Carvedilol 12.5 mg Atorvastati n Calcium 40 MG Atorvastati n Calcium 40 MG No 1{table t} QD Atorvastat in Calcium 40 MG Atorvastati n Calcium 40 MG Atorvastati n Calcium 40 MG No Atorvastat in Calcium 40 MG Coreg 12.5 MG Coreg 12.5 MG No 1{table t_with_ food} QD Coreg 12.5 MG amLODIPine Besylate 10 MG amLODIPine Besylate 10 MG No 1{table t} QD amLODIPine Besylate 10 MG Flomax 0.4 MG Flomax 0.4 MG No 2{capsu les} QD Flomax 0.4 MG Tamsulosin HCl 0.4 mg Tamsulosin HCl 0.4 mg No Tamsulosin HCl 0.4 mg Ventolin HFA 108 (90 Base) MCG/ACT Ventolin HFA 108 (90 Base) MCG/ACT No 2{puffs _as_nee ded} QID Ventolin HFA 108 (90 Base) MCG/ACT Aspirin 81 81 MG Aspirin 81 81 MG No 1{table t} QD Aspirin 81 81 MG Aricept 10 MG Aricept 10 MG No 1{table t_at_be dtime} QD Aricept 10 MG Albuterol Sulfate HFA 108 (90 Base) MCG/ACT Albuterol Sulfate HFA 108 (90 Base) MCG/ACT No Albuterol Sulfate HFA 108 (90 Base) MCG/ACT Coreg 3.125 MG Coreg 3.125 MG No QD Coreg 3.125 MG Clopidogrel Bisulfate 75 MG Clopidogrel Bisulfate 75 MG No 1{table t} QD Clopidogre l Bisulfate 75 MG Fluticasone Furoate-Silver anterol 100-25 MCG/INH Fluticasone Furoate-Silver anterol 100-25 MCG/INH No 1{puff} QD Fluticason e Furoate-Vi lanterol 100-25 MCG/INH Folic Acid 1 MG Folic Acid 1 MG No 1{table t} QD Folic Acid 1 MG Proscar 5 MG Proscar 5 MG No 1{table t} QD Proscar 5 MG Donepezil HCl 10 MG Donepezil HCl 10 MG No 1{table t_at_be dtime} QD Donepezil HCl 10 MG Flomax 0.4 MG Flomax 0.4 MG No 1{capsu le} Flomax 0.4 MG Carbidopa-L evodopa 25-100 MG Carbidopa-L evodopa 25-100 MG No 1{table t} TID Carbidopa- Levodopa 25-100 MG Clopidogrel Bisulfate 75 mg Clopidogrel Bisulfate 75 mg No Clopidogre l Bisulfate 75 mg Carvedilol 12.5 mg Carvedilol 12.5 mg No Carvedilol 12.5 mg Atorvastati n Calcium 40 MG Atorvastati n Calcium 40 MG No 1{table t} QD Atorvastat in Calcium 40 MG Atorvastati n Calcium 40 MG Atorvastati n Calcium 40 MG No Atorvastat in Calcium 40 MG Coreg 12.5 MG Coreg 12.5 MG No 1{table t_with_ food} QD Coreg 12.5 MG amLODIPine Besylate 10 MG amLODIPine Besylate 10 MG No 1{table t} QD amLODIPine Besylate 10 MG Flomax 0.4 MG Flomax 0.4 MG No 2{capsu les} QD Flomax 0.4 MG Tamsulosin HCl 0.4 mg Tamsulosin HCl 0.4 mg No Tamsulosin HCl 0.4 mg Flomax 0.4 MG Flomax 0.4 MG No 2{capsu les} QD Flomax 0.4 MG Ventolin HFA 108 (90 Base) MCG/ACT Ventolin HFA 108 (90 Base) MCG/ACT No 2{puffs _as_nee ded} QID Ventolin HFA 108 (90 Base) MCG/ACT Aspirin 81 81 MG Aspirin 81 81 MG No 1{table t} QD Aspirin 81 81 MG Aricept 10 MG Aricept 10 MG No 1{table t_at_be dtime} QD Aricept 10 MG Albuterol Sulfate HFA 108 (90 Base) MCG/ACT Albuterol Sulfate HFA 108 (90 Base) MCG/ACT No Albuterol Sulfate HFA 108 (90 Base) MCG/ACT Coreg 3.125 MG Coreg 3.125 MG No QD Coreg 3.125 MG Clopidogrel Bisulfate 75 MG Clopidogrel Bisulfate 75 MG No 1{table t} QD Clopidogre l Bisulfate 75 MG Fluticasone Furoate-Silver anterol 100-25 MCG/INH Fluticasone Furoate-Silver anterol 100-25 MCG/INH No 1{puff} QD Fluticason e Furoate-Vi lanterol 100-25 MCG/INH Folic Acid 1 MG Folic Acid 1 MG No 1{table t} QD Folic Acid 1 MG Albuterol Sulfate (2.5 MG/3ML) 0.083% Albuterol Sulfate (2.5 MG/3ML) 0.083% No 3{ml_as _needed } QID Albuterol Sulfate (2.5 MG/3ML) 0.083% Donepezil HCl 10 MG Donepezil HCl 10 MG No 1{table t_at_be dtime} QD Donepezil HCl 10 MG Carbidopa-L evodopa 25-100 MG Carbidopa-L evodopa 25-100 MG No 1{table t} TID Carbidopa- Levodopa 25-100 MG buPROPion HCl ER (XL) 150 MG buPROPion HCl ER (XL) 150 MG No 1{table t_in_th e_morni ng} QD buPROPion HCl ER (XL) 150 MG Clopidogrel Bisulfate 75 mg Clopidogrel Bisulfate 75 mg No Clopidogre l Bisulfate 75 mg Carvedilol 12.5 mg Carvedilol 12.5 mg No Carvedilol 12.5 mg Atorvastati n Calcium 40 MG Atorvastati n Calcium 40 MG No 1{table t} QD Atorvastat in Calcium 40 MG Atorvastati n Calcium 40 MG Atorvastati n Calcium 40 MG No Atorvastat in Calcium 40 MG Coreg 12.5 MG Coreg 12.5 MG No 1{table t_with_ food} QD Coreg 12.5 MG amLODIPine Besylate 10 MG amLODIPine Besylate 10 MG No 1{table t} QD amLODIPine Besylate 10 MG Flomax 0.4 MG Flomax 0.4 MG No 2{capsu les} QD Flomax 0.4 MG Tamsulosin HCl 0.4 mg Tamsulosin HCl 0.4 mg No Tamsulosin HCl 0.4 mg Ventolin HFA 108 (90 Base) MCG/ACT Ventolin HFA 108 (90 Base) MCG/ACT No 2{puffs _as_nee ded} QID Ventolin HFA 108 (90 Base) MCG/ACT Clopidogrel Bisulfate 75 MG Clopidogrel Bisulfate 75 MG No Clopidogre l Bisulfate 75 MG Aspirin 81 81 MG Aspirin 81 81 MG No 1{table t} QD Aspirin 81 81 MG Aricept 10 MG Aricept 10 MG No 1{table t_at_be dtime} QD Aricept 10 MG Albuterol Sulfate HFA 108 (90 Base) MCG/ACT Albuterol Sulfate HFA 108 (90 Base) MCG/ACT No Albuterol Sulfate HFA 108 (90 Base) MCG/ACT Coreg 3.125 MG Coreg 3.125 MG No QD Coreg 3.125 MG Clopidogrel Bisulfate 75 MG Clopidogrel Bisulfate 75 MG No 1{table t} QD Clopidogre l Bisulfate 75 MG Fluticasone Furoate-Silver anterol 100-25 MCG/INH Fluticasone Furoate-Silver anterol 100-25 MCG/INH No 1{puff} QD Fluticason e Furoate-Vi lanterol 100-25 MCG/INH Folic Acid 1 MG Folic Acid 1 MG No 1{table t} QD Folic Acid 1 MG SEROquel 50 MG SEROquel 50 MG No 1{table t_at_be dtime} QD SEROquel 50 MG Donepezil HCl 10 MG Donepezil HCl 10 MG No 1{table t_at_be dtime} QD Donepezil HCl 10 MG Carbidopa-L evodopa 25-100 MG Carbidopa-L evodopa 25-100 MG No 1{table t} TID Carbidopa- Levodopa 25-100 MG Clopidogrel Bisulfate 75 mg Clopidogrel Bisulfate 75 mg No Clopidogre l Bisulfate 75 mg Atorvastati n Calcium 40 MG Atorvastati n Calcium 40 MG No 1{table t} QD Atorvastat in Calcium 40 MG Carvedilol 12.5 mg Carvedilol 12.5 mg No Carvedilol 12.5 mg Atorvastati n Calcium 40 MG Atorvastati n Calcium 40 MG No 1{table t} QD Atorvastat in Calcium 40 MG Atorvastati n Calcium 40 MG Atorvastati n Calcium 40 MG No Atorvastat in Calcium 40 MG Coreg 12.5 MG Coreg 12.5 MG No 1{table t_with_ food} QD Coreg 12.5 MG amLODIPine Besylate 10 MG amLODIPine Besylate 10 MG No 1{table t} QD amLODIPine Besylate 10 MG Flomax 0.4 MG Flomax 0.4 MG No 2{capsu les} QD Flomax 0.4 MG Tamsulosin HCl 0.4 mg Tamsulosin HCl 0.4 mg No Tamsulosin HCl 0.4 mg Ventolin HFA 108 (90 Base) MCG/ACT Ventolin HFA 108 (90 Base) MCG/ACT No 2{puffs _as_nee ded} QID Ventolin HFA 108 (90 Base) MCG/ACT Aspirin 81 81 MG Aspirin 81 81 MG No 1{table t} QD Aspirin 81 81 MG Albuterol Sulfate HFA 108 (90 Base) MCG/ACT Albuterol Sulfate HFA 108 (90 Base) MCG/ACT No Albuterol Sulfate HFA 108 (90 Base) MCG/ACT Aricept 10 MG Aricept 10 MG No 1{table t_at_be dtime} QD Aricept 10 MG Albuterol Sulfate HFA 108 (90 Base) MCG/ACT Albuterol Sulfate HFA 108 (90 Base) MCG/ACT No Albuterol Sulfate HFA 108 (90 Base) MCG/ACT Coreg 3.125 MG Coreg 3.125 MG No QD Coreg 3.125 MG Clopidogrel Bisulfate 75 MG Clopidogrel Bisulfate 75 MG No 1{table t} QD Clopidogre l Bisulfate 75 MG Fluticasone Furoate-Silver anterol 100-25 MCG/INH Fluticasone Furoate-Silver anterol 100-25 MCG/INH No 1{puff} QD Fluticason e Furoate-Vi lanterol 100-25 MCG/INH Folic Acid 1 MG Folic Acid 1 MG No 1{table t} QD Folic Acid 1 MG Budesonide- Formoterol Fumarate 160-4.5 MCG/ACT Budesonide- Formoterol Fumarate 160-4.5 MCG/ACT No 2{puffs } BID Budesonide -Formotero l Fumarate 160-4.5 MCG/ACT Atorvastati n Calcium 40 MG Atorvastati n Calcium 40 MG No Atorvastat in Calcium 40 MG Donepezil HCl 10 MG Donepezil HCl 10 MG No 1{table t_at_be dtime} QD Donepezil HCl 10 MG Carbidopa-L evodopa 25-100 MG Carbidopa-L evodopa 25-100 MG No 1{table t} TID Carbidopa- Levodopa 25-100 MG Clopidogrel Bisulfate 75 mg Clopidogrel Bisulfate 75 mg No Clopidogre l Bisulfate 75 mg Carvedilol 12.5 mg Carvedilol 12.5 mg No Carvedilol 12.5 mg Atorvastati n Calcium 40 MG Atorvastati n Calcium 40 MG No 1{table t} QD Atorvastat in Calcium 40 MG Atorvastati n Calcium 40 MG Atorvastati n Calcium 40 MG No Atorvastat in Calcium 40 MG Coreg 12.5 MG Coreg 12.5 MG No 1{table t_with_ food} QD Coreg 12.5 MG Folic Acid 1 MG Folic Acid 1 MG No 1{table t} QD Folic Acid 1 MG amLODIPine Besylate 10 MG amLODIPine Besylate 10 MG No 1{table t} QD amLODIPine Besylate 10 MG Flomax 0.4 MG Flomax 0.4 MG No 2{capsu les} QD Flomax 0.4 MG Tamsulosin HCl 0.4 mg Tamsulosin HCl 0.4 mg No Tamsulosin HCl 0.4 mg Ventolin HFA 108 (90 Base) MCG/ACT Ventolin HFA 108 (90 Base) MCG/ACT No 2{puffs _as_nee ded} QID Ventolin HFA 108 (90 Base) MCG/ACT Aspirin 81 81 MG Aspirin 81 81 MG No 1{table t} QD Aspirin 81 81 MG Aricept 10 MG Aricept 10 MG No 1{table t_at_be dtime} QD Aricept 10 MG Albuterol Sulfate HFA 108 (90 Base) MCG/ACT Albuterol Sulfate HFA 108 (90 Base) MCG/ACT No Albuterol Sulfate HFA 108 (90 Base) MCG/ACT Coreg 3.125 MG Coreg 3.125 MG No QD Coreg 3.125 MG Clopidogrel Bisulfate 75 MG Clopidogrel Bisulfate 75 MG No 1{table t} QD Clopidogre l Bisulfate 75 MG Aspirin 81 81 MG Aspirin 81 81 MG No 1{table t} QD Aspirin 81 81 MG Fluticasone Furoate-Silver anterol 100-25 MCG/INH Fluticasone Furoate-Silver anterol 100-25 MCG/INH No 1{puff} QD Fluticason e Furoate-Vi lanterol 100-25 MCG/INH Folic Acid 1 MG Folic Acid 1 MG No 1{table t} QD Folic Acid 1 MG amLODIPine Besylate 5 MG amLODIPine Besylate 5 MG No amLODIPine Besylate 5 MG Donepezil HCl 10 MG Donepezil HCl 10 MG No 1{table t_at_be dtime} QD Donepezil HCl 10 MG Carbidopa-L evodopa 25-100 MG Carbidopa-L evodopa 25-100 MG No 1{table t} TID Carbidopa- Levodopa 25-100 MG Clopidogrel Bisulfate 75 mg Clopidogrel Bisulfate 75 mg No Clopidogre l Bisulfate 75 mg Carvedilol 12.5 mg Carvedilol 12.5 mg No Carvedilol 12.5 mg Donepezil HCl 10 MG Donepezil HCl 10 MG No 1{table t_at_be dtime} QD Donepezil HCl 10 MG Atorvastati n Calcium 40 MG Atorvastati n Calcium 40 MG No 1{table t} QD Atorvastat in Calcium 40 MG Atorvastati n Calcium 40 MG Atorvastati n Calcium 40 MG No Atorvastat in Calcium 40 MG Coreg 12.5 MG Coreg 12.5 MG No 1{table t_with_ food} QD Coreg 12.5 MG amLODIPine Besylate 10 MG amLODIPine Besylate 10 MG No 1{table t} QD amLODIPine Besylate 10 MG Flomax 0.4 MG Flomax 0.4 MG No 2{capsu les} QD Flomax 0.4 MG Tamsulosin HCl 0.4 mg Tamsulosin HCl 0.4 mg No Tamsulosin HCl 0.4 mg Ventolin HFA 108 (90 Base) MCG/ACT Ventolin HFA 108 (90 Base) MCG/ACT No 2{puffs _as_nee ded} QID Ventolin HFA 108 (90 Base) MCG/ACT Aspirin 81 81 MG Aspirin 81 81 MG No 1{table t} QD Aspirin 81 81 MG Aricept 10 MG Aricept 10 MG No 1{table t_at_be dtime} QD Aricept 10 MG Ketoconazol e 2 % Ketoconazol e 2 % No QD Ketoconazo le 2 % Albuterol Sulfate HFA 108 (90 Base) MCG/ACT Albuterol Sulfate HFA 108 (90 Base) MCG/ACT No Albuterol Sulfate HFA 108 (90 Base) MCG/ACT Coreg 3.125 MG Coreg 3.125 MG No QD Coreg 3.125 MG Clopidogrel Bisulfate 75 MG Clopidogrel Bisulfate 75 MG No 1{table t} QD Clopidogre l Bisulfate 75 MG Fluticasone Furoate-Silver anterol 100-25 MCG/INH Fluticasone Furoate-Silver anterol 100-25 MCG/INH No 1{puff} QD Fluticason e Furoate-Vi lanterol 100-25 MCG/INH Folic Acid 1 MG Folic Acid 1 MG No 1{table t} QD Folic Acid 1 MG levETIRAcet am 500 MG levETIRAcet am 500 MG No 1{table t} QD levETIRAce summers 500 MG Coreg 12.5 MG Coreg 12.5 MG No BID Coreg 12.5 MG Donepezil HCl 10 MG Donepezil HCl 10 MG No 1{table t_at_be dtime} QD Donepezil HCl 10 MG Carbidopa-L evodopa 25-100 MG Carbidopa-L evodopa 25-100 MG No 1{table t} TID Carbidopa- Levodopa 25-100 MG Clopidogrel Bisulfate 75 mg Clopidogrel Bisulfate 75 mg No Clopidogre l Bisulfate 75 mg amLODIPine Besylate 2.5 MG amLODIPine Besylate 2.5 MG No 1{table t} QD amLODIPine Besylate 2.5 MG Carvedilol 12.5 mg Carvedilol 12.5 mg No Carvedilol 12.5 mg Atorvastati n Calcium 40 MG Atorvastati n Calcium 40 MG No 1{table t} QD Atorvastat in Calcium 40 MG Atorvastati n Calcium 40 MG Atorvastati n Calcium 40 MG No Atorvastat in Calcium 40 MG Coreg 12.5 MG Coreg 12.5 MG No 1{table t_with_ food} QD Coreg 12.5 MG amLODIPine Besylate 10 MG amLODIPine Besylate 10 MG No 1{table t} QD amLODIPine Besylate 10 MG Flomax 0.4 MG Flomax 0.4 MG No 2{capsu les} QD Flomax 0.4 MG Tamsulosin HCl 0.4 mg Tamsulosin HCl 0.4 mg No Tamsulosin HCl 0.4 mg Ventolin HFA 108 (90 Base) MCG/ACT Ventolin HFA 108 (90 Base) MCG/ACT No 2{puffs _as_nee ded} QID Ventolin HFA 108 (90 Base) MCG/ACT Aspirin 81 81 MG Aspirin 81 81 MG No 1{table t} QD Aspirin 81 81 MG Folic Acid 1 MG Folic Acid 1 MG No 1{table t} QD Folic Acid 1 MG Aricept 10 MG Aricept 10 MG No 1{table t_at_be dtime} QD Aricept 10 MG Albuterol Sulfate HFA 108 (90 Base) MCG/ACT Albuterol Sulfate HFA 108 (90 Base) MCG/ACT No Albuterol Sulfate HFA 108 (90 Base) MCG/ACT Coreg 3.125 MG Coreg 3.125 MG No QD Coreg 3.125 MG Fluticasone Furoate-Silver anterol 100-25 MCG/INH Fluticasone Furoate-Silver anterol 100-25 MCG/INH 08-29 00:00 :00 No 1{puff} QD Fluticason e Furoate-Vi lanterol 100-25 MCG/INH Immunizations Ordered Immunization Name Filled Immunization Name Date Status Comments Source Moderna COVID-19 Vaccine (Low Dose Booster) Moderna COVID-19 Vaccine (Low Dose Booster) 2021-09-28 14:33:00 Completed [facility] Moderna COVID-19 Vaccine (Low Dose Booster) Moderna COVID-19 Vaccine (Low Dose Booster) 2021-09-28 14:33:00 Completed [facility] Moderna COVID-19 Vaccine (Low Dose Booster) Moderna COVID-19 Vaccine (Low Dose Booster) 2021-09-28 14:33:00 Completed [facility] Moderna COVID-19 Vaccine (Low Dose Booster) Moderna COVID-19 Vaccine (Low Dose Booster) 2021-09-28 14:33:00 Completed [facility] Moderna COVID-19 Vaccine (Low Dose Booster) Moderna COVID-19 Vaccine (Low Dose Booster) 2021-09-28 14:33:00 Completed [facility] Moderna COVID-19 Vaccine (Low Dose Booster) Moderna COVID-19 Vaccine (Low Dose Booster) 2021-09-28 14:33:00 Completed [facility] Moderna COVID-19 Vaccine (Low Dose Booster) Moderna COVID-19 Vaccine (Low Dose Booster) 2021-09-28 14:33:00 Completed [facility] Moderna COVID-19 Vaccine (Low Dose Booster) Moderna COVID-19 Vaccine (Low Dose Booster) 2021-09-28 14:33:00 Completed [facility] Moderna COVID-19 Vaccine (Low Dose Booster) Moderna COVID-19 Vaccine (Low Dose Booster) 2021-09-28 14:33:00 Completed [facility] Moderna COVID-19 Vaccine (Low Dose Booster) Moderna COVID-19 Vaccine (Low Dose Booster) 2021-09-28 14:33:00 Completed [facility] Moderna COVID-19 Vaccine (Low Dose Booster) Moderna COVID-19 Vaccine (Low Dose Booster) 2021-09-28 14:33:00 Completed [facility] Moderna COVID-19 Vaccine (Low Dose Booster) Moderna COVID-19 Vaccine (Low Dose Booster) 2021-09-28 14:33:00 Completed [facility] Moderna COVID-19 Vaccine (Low Dose Booster) Moderna COVID-19 Vaccine (Low Dose Booster) 2021-09-28 14:33:00 Completed [facility] Moderna COVID-19 Vaccine (Low Dose Booster) Moderna COVID-19 Vaccine (Low Dose Booster) 2021-09-28 14:33:00 Completed [facility] Moderna COVID-19 Vaccine (Low Dose Booster) Moderna COVID-19 Vaccine (Low Dose Booster) 2021-09-28 14:33:00 Completed [facility] Moderna COVID-19 Vaccine (Low Dose Booster) Moderna COVID-19 Vaccine (Low Dose Booster) 2021-09-28 14:33:00 Completed [facility] Moderna COVID-19 Vaccine (Low Dose Booster) Moderna COVID-19 Vaccine (Low Dose Booster) 2021-09-28 14:33:00 Completed [facility] Moderna COVID-19 Vaccine (Low Dose Booster) Moderna COVID-19 Vaccine (Low Dose Booster) 2021-09-28 14:33:00 Completed [facility] Moderna COVID-19 Vaccine (Low Dose Booster) Moderna COVID-19 Vaccine (Low Dose Booster) 2021-09-28 14:33:00 Completed [facility] FLUZONE HIGH DOSE OVER 65 FLUZONE HIGH DOSE OVER 65 2021-08-28 15:01:00 Completed [facility] FLUZONE HIGH DOSE OVER 65 FLUZONE HIGH DOSE OVER 65 2021-08-28 15:01:00 Completed [facility] FLUZONE HIGH DOSE OVER 65 FLUZONE HIGH DOSE OVER 65 2021-08-28 15:01:00 Completed [facility] FLUZONE HIGH DOSE OVER 65 FLUZONE HIGH DOSE OVER 65 2021-08-28 15:01:00 Completed [facility] FLUZONE HIGH DOSE OVER 65 FLUZONE HIGH DOSE OVER 65 2021-08-28 15:01:00 Completed [facility] FLUZONE HIGH DOSE OVER 65 FLUZONE HIGH DOSE OVER 65 2021-08-28 15:01:00 Completed [facility] FLUZONE HIGH DOSE OVER 65 FLUZONE HIGH DOSE OVER 65 2021-08-28 15:01:00 Completed [facility] FLUZONE HIGH DOSE OVER 65 FLUZONE HIGH DOSE OVER 65 2021-08-28 15:01:00 Completed [facility] FLUZONE HIGH DOSE OVER 65 FLUZONE HIGH DOSE OVER 65 2021-08-28 15:01:00 Completed [facility] FLUZONE HIGH DOSE OVER 65 FLUZONE HIGH DOSE OVER 65 2021-08-28 15:01:00 Completed [facility] FLUZONE HIGH DOSE OVER 65 FLUZONE HIGH DOSE OVER 65 2021-08-28 15:01:00 Completed [facility] FLUZONE HIGH DOSE OVER 65 FLUZONE HIGH DOSE OVER 65 2021-08-28 15:01:00 Completed [facility] FLUZONE HIGH DOSE OVER 65 FLUZONE HIGH DOSE OVER 65 2021-08-28 15:01:00 Completed [facility] FLUZONE HIGH DOSE OVER 65 FLUZONE HIGH DOSE OVER 65 2021-08-28 15:01:00 Completed [facility] FLUZONE HIGH DOSE OVER 65 FLUZONE HIGH DOSE OVER 65 2021-08-28 15:01:00 Completed [facility] FLUZONE HIGH DOSE OVER 65 FLUZONE HIGH DOSE OVER 65 2021-08-28 15:01:00 Completed [facility] FLUZONE HIGH DOSE OVER 65 FLUZONE HIGH DOSE OVER 65 2021-08-28 15:01:00 Completed [facility] FLUZONE HIGH DOSE OVER 65 FLUZONE HIGH DOSE OVER 65 2021-08-28 15:01:00 Completed [facility] FLUZONE HIGH DOSE OVER 65 FLUZONE HIGH DOSE OVER 65 2021-08-28 15:01:00 Completed [facility] Moderna COVID-19 Vaccine Moderna COVID-19 Vaccine 2021-01-04 14:35:00 Completed [facility] Moderna COVID-19 Vaccine Moderna COVID-19 Vaccine 2021-01-04 14:35:00 Completed [facility] Moderna COVID-19 Vaccine Moderna COVID-19 Vaccine 2021-01-04 14:35:00 Completed [facility] Moderna COVID-19 Vaccine Moderna COVID-19 Vaccine 2021-01-04 14:35:00 Completed [facility] Moderna COVID-19 Vaccine Moderna COVID-19 Vaccine 2021-01-04 14:35:00 Completed [facility] Moderna COVID-19 Vaccine Moderna COVID-19 Vaccine 2021-01-04 14:35:00 Completed [facility] Moderna COVID-19 Vaccine Moderna COVID-19 Vaccine 2021-01-04 14:35:00 Completed [facility] Moderna COVID-19 Vaccine Moderna COVID-19 Vaccine 2021-01-04 14:35:00 Completed [facility] Moderna COVID-19 Vaccine Moderna COVID-19 Vaccine 2021-01-04 14:35:00 Completed [facility] Moderna COVID-19 Vaccine Moderna COVID-19 Vaccine 2021-01-04 14:35:00 Completed [facility] Moderna COVID-19 Vaccine Moderna COVID-19 Vaccine 2021-01-04 14:35:00 Completed [facility] Moderna COVID-19 Vaccine Moderna COVID-19 Vaccine 2021-01-04 14:35:00 Completed [facility] Moderna COVID-19 Vaccine Moderna COVID-19 Vaccine 2021-01-04 14:35:00 Completed [facility] Moderna COVID-19 Vaccine Moderna COVID-19 Vaccine 2021-01-04 14:35:00 Completed [facility] Moderna COVID-19 Vaccine Moderna COVID-19 Vaccine 2021-01-04 14:35:00 Completed [facility] Moderna COVID-19 Vaccine Moderna COVID-19 Vaccine 2021-01-04 14:35:00 Completed [facility] Moderna COVID-19 Vaccine Moderna COVID-19 Vaccine 2021-01-04 14:35:00 Completed [facility] Moderna COVID-19 Vaccine Moderna COVID-19 Vaccine 2021-01-04 14:35:00 Completed [facility] Moderna COVID-19 Vaccine Moderna COVID-19 Vaccine 2021-01-04 14:35:00 Completed [facility] Moderna COVID-19 Vaccine Moderna COVID-19 Vaccine 2020-12-03 14:34:00 Completed [facility] Moderna COVID-19 Vaccine Moderna COVID-19 Vaccine 2020-12-03 14:34:00 Completed [facility] Moderna COVID-19 Vaccine Moderna COVID-19 Vaccine 2020-12-03 14:34:00 Completed [facility] Moderna COVID-19 Vaccine Moderna COVID-19 Vaccine 2020-12-03 14:34:00 Completed [facility] Moderna COVID-19 Vaccine Moderna COVID-19 Vaccine 2020-12-03 14:34:00 Completed [facility] Moderna COVID-19 Vaccine Moderna COVID-19 Vaccine 2020-12-03 14:34:00 Completed [facility] Moderna COVID-19 Vaccine Moderna COVID-19 Vaccine 2020-12-03 14:34:00 Completed [facility] Moderna COVID-19 Vaccine Moderna COVID-19 Vaccine 2020-12-03 14:34:00 Completed [facility] Moderna COVID-19 Vaccine Moderna COVID-19 Vaccine 2020-12-03 14:34:00 Completed [facility] Moderna COVID-19 Vaccine Moderna COVID-19 Vaccine 2020-12-03 14:34:00 Completed [facility] Moderna COVID-19 Vaccine Moderna COVID-19 Vaccine 2020-12-03 14:34:00 Completed [facility] Moderna COVID-19 Vaccine Moderna COVID-19 Vaccine 2020-12-03 14:34:00 Completed [facility] Moderna COVID-19 Vaccine Moderna COVID-19 Vaccine 2020-12-03 14:34:00 Completed [facility] Moderna COVID-19 Vaccine Moderna COVID-19 Vaccine 2020-12-03 14:34:00 Completed [facility] Moderna COVID-19 Vaccine Moderna COVID-19 Vaccine 2020-12-03 14:34:00 Completed [facility] Moderna COVID-19 Vaccine Moderna COVID-19 Vaccine 2020-12-03 14:34:00 Completed [facility] Moderna COVID-19 Vaccine Moderna COVID-19 Vaccine 2020-12-03 14:34:00 Completed [facility] Moderna COVID-19 Vaccine Moderna COVID-19 Vaccine 2020-12-03 14:34:00 Completed [facility] Moderna COVID-19 Vaccine Moderna COVID-19 Vaccine 2020-12-03 14:34:00 Completed [facility] FLUZONE HIGH DOSE OVER 65 FLUZONE HIGH DOSE OVER 65 2020-07-15 10:07:00 Completed [facility] FLUZONE HIGH DOSE OVER 65 FLUZONE HIGH DOSE OVER 65 2020-07-15 10:07:00 Completed [facility] FLUZONE HIGH DOSE OVER 65 FLUZONE HIGH DOSE OVER 65 2020-07-15 10:07:00 Completed [facility] FLUZONE HIGH DOSE OVER 65 FLUZONE HIGH DOSE OVER 65 2020-07-15 10:07:00 Completed [facility] FLUZONE HIGH DOSE OVER 65 FLUZONE HIGH DOSE OVER 65 2020-07-15 10:07:00 Completed [facility] FLUZONE HIGH DOSE OVER 65 FLUZONE HIGH DOSE OVER 65 2020-07-15 10:07:00 Completed [facility] FLUZONE HIGH DOSE OVER 65 FLUZONE HIGH DOSE OVER 65 2020-07-15 10:07:00 Completed [facility] FLUZONE HIGH DOSE OVER 65 FLUZONE HIGH DOSE OVER 65 2020-07-15 10:07:00 Completed [facility] FLUZONE HIGH DOSE OVER 65 FLUZONE HIGH DOSE OVER 65 2020-07-15 10:07:00 Completed [facility] FLUZONE HIGH DOSE OVER 65 FLUZONE HIGH DOSE OVER 65 2020-07-15 10:07:00 Completed [facility] FLUZONE HIGH DOSE OVER 65 FLUZONE HIGH DOSE OVER 65 2020-07-15 10:07:00 Completed [facility] FLUZONE HIGH DOSE OVER 65 FLUZONE HIGH DOSE OVER 65 2020-07-15 10:07:00 Completed [facility] FLUZONE HIGH DOSE OVER 65 FLUZONE HIGH DOSE OVER 65 2020-07-15 10:07:00 Completed [facility] FLUZONE HIGH DOSE OVER 65 FLUZONE HIGH DOSE OVER 65 2020-07-15 10:07:00 Completed [facility] FLUZONE HIGH DOSE OVER 65 FLUZONE HIGH DOSE OVER 65 2020-07-15 10:07:00 Completed [facility] FLUZONE HIGH DOSE OVER 65 FLUZONE HIGH DOSE OVER 65 2020-07-15 10:07:00 Completed [facility] FLUZONE HIGH DOSE OVER 65 FLUZONE HIGH DOSE OVER 65 2020-07-15 10:07:00 Completed [facility] FLUZONE HIGH DOSE OVER 65 FLUZONE HIGH DOSE OVER 65 2020-07-15 10:07:00 Completed [facility] FLUZONE HIGH DOSE OVER 65 FLUZONE HIGH DOSE OVER 65 2020-07-15 10:07:00 Completed [facility] FLUZONE HIGH DOSE OVER 65 FLUZONE HIGH DOSE OVER 65 2019-08-13 14:41:00 Completed [facility] FLUZONE HIGH DOSE OVER 65 FLUZONE HIGH DOSE OVER 65 2019-08-13 14:41:00 Completed [facility] FLUZONE HIGH DOSE OVER 65 FLUZONE HIGH DOSE OVER 65 2019-08-13 14:41:00 Completed [facility] FLUZONE HIGH DOSE OVER 65 FLUZONE HIGH DOSE OVER 65 2019-08-13 14:41:00 Completed [facility] FLUZONE HIGH DOSE OVER 65 FLUZONE HIGH DOSE OVER 65 2019-08-13 14:41:00 Completed [facility] FLUZONE HIGH DOSE OVER 65 FLUZONE HIGH DOSE OVER 65 2019-08-13 14:41:00 Completed [facility] FLUZONE HIGH DOSE OVER 65 FLUZONE HIGH DOSE OVER 65 2019-08-13 14:41:00 Completed [facility] FLUZONE HIGH DOSE OVER 65 FLUZONE HIGH DOSE OVER 65 2019-08-13 14:41:00 Completed [facility] FLUZONE HIGH DOSE OVER 65 FLUZONE HIGH DOSE OVER 65 2019-08-13 14:41:00 Completed [facility] FLUZONE HIGH DOSE OVER 65 FLUZONE HIGH DOSE OVER 65 2019-08-13 14:41:00 Completed [facility] FLUZONE HIGH DOSE OVER 65 FLUZONE HIGH DOSE OVER 65 2019-08-13 14:41:00 Completed [facility] FLUZONE HIGH DOSE OVER 65 FLUZONE HIGH DOSE OVER 65 2019-08-13 14:41:00 Completed [facility] FLUZONE HIGH DOSE OVER 65 FLUZONE HIGH DOSE OVER 65 2019-08-13 14:41:00 Completed [facility] FLUZONE HIGH DOSE OVER 65 FLUZONE HIGH DOSE OVER 65 2019-08-13 14:41:00 Completed [facility] FLUZONE HIGH DOSE OVER 65 FLUZONE HIGH DOSE OVER 65 2019-08-13 14:41:00 Completed [facility] FLUZONE HIGH DOSE OVER 65 FLUZONE HIGH DOSE OVER 65 2019-08-13 14:41:00 Completed [facility] FLUZONE HIGH DOSE OVER 65 FLUZONE HIGH DOSE OVER 65 2019-08-13 14:41:00 Completed [facility] FLUZONE HIGH DOSE OVER 65 FLUZONE HIGH DOSE OVER 65 2019-08-13 14:41:00 Completed [facility] FLUZONE HIGH DOSE OVER 65 FLUZONE HIGH DOSE OVER 65 2019-08-13 14:41:00 Completed [facility] FLUZONE HIGH DOSE OVER 65 FLUZONE HIGH DOSE OVER 65 2018-08-15 11:52:00 Completed [facility] FLUZONE HIGH DOSE OVER 65 FLUZONE HIGH DOSE OVER 65 2018-08-15 11:52:00 Completed [facility] FLUZONE HIGH DOSE OVER 65 FLUZONE HIGH DOSE OVER 65 2018-08-15 11:52:00 Completed [facility] FLUZONE HIGH DOSE OVER 65 FLUZONE HIGH DOSE OVER 65 2018-08-15 11:52:00 Completed [facility] FLUZONE HIGH DOSE OVER 65 FLUZONE HIGH DOSE OVER 65 2018-08-15 11:52:00 Completed [facility] FLUZONE HIGH DOSE OVER 65 FLUZONE HIGH DOSE OVER 65 2018-08-15 11:52:00 Completed [facility] FLUZONE HIGH DOSE OVER 65 FLUZONE HIGH DOSE OVER 65 2018-08-15 11:52:00 Completed [facility] FLUZONE HIGH DOSE OVER 65 FLUZONE HIGH DOSE OVER 65 2018-08-15 11:52:00 Completed [facility] FLUZONE HIGH DOSE OVER 65 FLUZONE HIGH DOSE OVER 65 2018-08-15 11:52:00 Completed [facility] FLUZONE HIGH DOSE OVER 65 FLUZONE HIGH DOSE OVER 65 2018-08-15 11:52:00 Completed [facility] FLUZONE HIGH DOSE OVER 65 FLUZONE HIGH DOSE OVER 65 2018-08-15 11:52:00 Completed [facility] FLUZONE HIGH DOSE OVER 65 FLUZONE HIGH DOSE OVER 65 2018-08-15 11:52:00 Completed [facility] FLUZONE HIGH DOSE OVER 65 FLUZONE HIGH DOSE OVER 65 2018-08-15 11:52:00 Completed [facility] FLUZONE HIGH DOSE OVER 65 FLUZONE HIGH DOSE OVER 65 2018-08-15 11:52:00 Completed [facility] FLUZONE HIGH DOSE OVER 65 FLUZONE HIGH DOSE OVER 65 2018-08-15 11:52:00 Completed [facility] FLUZONE HIGH DOSE OVER 65 FLUZONE HIGH DOSE OVER 65 2018-08-15 11:52:00 Completed [facility] FLUZONE HIGH DOSE OVER 65 FLUZONE HIGH DOSE OVER 65 2018-08-15 11:52:00 Completed [facility] FLUZONE HIGH DOSE OVER 65 FLUZONE HIGH DOSE OVER 65 2018-08-15 11:52:00 Completed [facility] FLUZONE HIGH DOSE OVER 65 FLUZONE HIGH DOSE OVER 65 2018-08-15 11:52:00 Completed [facility] Moderna COVID-19 Vaccine (Low Dose Booster) Moderna COVID-19 Vaccine (Low Dose Booster) Unknown Completed [facility] Moderna COVID-19 Vaccine Moderna COVID-19 Vaccine Unknown Completed [facility] Moderna COVID-19 Vaccine Moderna COVID-19 Vaccine Unknown Completed [facility] FLUZONE HIGH DOSE OVER 65 FLUZONE HIGH DOSE OVER 65 Unknown Completed [facility] FLUZONE HIGH DOSE OVER 65 FLUZONE HIGH DOSE OVER 65 Unknown Completed [facility] FLUZONE HIGH DOSE OVER 65 FLUZONE HIGH DOSE OVER 65 Unknown Completed [facility] FLUZONE HIGH DOSE OVER 65 FLUZONE HIGH DOSE OVER 65 Unknown Completed [facility] Moderna COVID-19 Vaccine (Low Dose Booster) Moderna COVID-19 Vaccine (Low Dose Booster) Unknown Completed [facility] Moderna COVID-19 Vaccine Moderna COVID-19 Vaccine Unknown Completed [facility] Moderna COVID-19 Vaccine Moderna COVID-19 Vaccine Unknown Completed [facility] FLUZONE HIGH DOSE OVER 65 FLUZONE HIGH DOSE OVER 65 Unknown Completed [facility] FLUZONE HIGH DOSE OVER 65 FLUZONE HIGH DOSE OVER 65 Unknown Completed [facility] FLUZONE HIGH DOSE OVER 65 FLUZONE HIGH DOSE OVER 65 Unknown Completed [facility] FLUZONE HIGH DOSE OVER 65 FLUZONE HIGH DOSE OVER 65 Unknown Completed [facility] Moderna COVID-19 Vaccine (Low Dose Booster) Moderna COVID-19 Vaccine (Low Dose Booster) Unknown Completed [facility] Moderna COVID-19 Vaccine Moderna COVID-19 Vaccine Unknown Completed [facility] Moderna COVID-19 Vaccine Moderna COVID-19 Vaccine Unknown Completed [facility] FLUZONE HIGH DOSE OVER 65 FLUZONE HIGH DOSE OVER 65 Unknown Completed [facility] FLUZONE HIGH DOSE OVER 65 FLUZONE HIGH DOSE OVER 65 Unknown Completed [facility] FLUZONE HIGH DOSE OVER 65 FLUZONE HIGH DOSE OVER 65 Unknown Completed [facility] FLUZONE HIGH DOSE OVER 65 FLUZONE HIGH DOSE OVER 65 Unknown Completed [facility] Moderna COVID-19 Vaccine (Low Dose Booster) Moderna COVID-19 Vaccine (Low Dose Booster) Unknown Completed [facility] Moderna COVID-19 Vaccine Moderna COVID-19 Vaccine Unknown Completed [facility] Moderna COVID-19 Vaccine Moderna COVID-19 Vaccine Unknown Completed [facility] FLUZONE HIGH DOSE OVER 65 FLUZONE HIGH DOSE OVER 65 Unknown Completed [facility] FLUZONE HIGH DOSE OVER 65 FLUZONE HIGH DOSE OVER 65 Unknown Completed [facility] FLUZONE HIGH DOSE OVER 65 FLUZONE HIGH DOSE OVER 65 Unknown Completed [facility] FLUZONE HIGH DOSE OVER 65 FLUZONE HIGH DOSE OVER 65 Unknown Completed [facility] Moderna COVID-19 Vaccine (Low Dose Booster) Moderna COVID-19 Vaccine (Low Dose Booster) Unknown Completed [facility] Moderna COVID-19 Vaccine Moderna COVID-19 Vaccine Unknown Completed [facility] Moderna COVID-19 Vaccine Moderna COVID-19 Vaccine Unknown Completed [facility] FLUZONE HIGH DOSE OVER 65 FLUZONE HIGH DOSE OVER 65 Unknown Completed [facility] FLUZONE HIGH DOSE OVER 65 FLUZONE HIGH DOSE OVER 65 Unknown Completed [facility] FLUZONE HIGH DOSE OVER 65 FLUZONE HIGH DOSE OVER 65 Unknown Completed [facility] FLUZONE HIGH DOSE OVER 65 FLUZONE HIGH DOSE OVER 65 Unknown Completed [facility] Moderna COVID-19 Vaccine (Low Dose Booster) Moderna COVID-19 Vaccine (Low Dose Booster) Unknown Completed [facility] Moderna COVID-19 Vaccine Moderna COVID-19 Vaccine Unknown Completed [facility] Moderna COVID-19 Vaccine Moderna COVID-19 Vaccine Unknown Completed [facility] FLUZONE HIGH DOSE OVER 65 FLUZONE HIGH DOSE OVER 65 Unknown Completed [facility] FLUZONE HIGH DOSE OVER 65 FLUZONE HIGH DOSE OVER 65 Unknown Completed [facility] FLUZONE HIGH DOSE OVER 65 FLUZONE HIGH DOSE OVER 65 Unknown Completed [facility] FLUZONE HIGH DOSE OVER 65 FLUZONE HIGH DOSE OVER 65 Unknown Completed [facility] MODERNA COVID-19 VACCINE (LOW DOSE BOOSTER) MODERNA COVID-19 VACCINE (LOW DOSE BOOSTER) Unknown Completed [facility] Moderna COVID-19 Vaccine Moderna COVID-19 Vaccine Unknown Completed [facility] Moderna COVID-19 Vaccine Moderna COVID-19 Vaccine Unknown Completed [facility] FLUZONE HIGH DOSE OVER 65 FLUZONE HIGH DOSE OVER 65 Unknown Completed [facility] FLUZONE HIGH DOSE OVER 65 FLUZONE HIGH DOSE OVER 65 Unknown Completed [facility] FLUZONE HIGH DOSE OVER 65 FLUZONE HIGH DOSE OVER 65 Unknown Completed [facility] FLUZONE HIGH DOSE OVER 65 FLUZONE HIGH DOSE OVER 65 Unknown Completed [facility] MODERNA COVID-19 VACCINE (LOW DOSE BOOSTER) MODERNA COVID-19 VACCINE (LOW DOSE BOOSTER) Unknown Completed [facility] Moderna COVID-19 Vaccine Moderna COVID-19 Vaccine Unknown Completed [facility] Moderna COVID-19 Vaccine Moderna COVID-19 Vaccine Unknown Completed [facility] FLUZONE HIGH DOSE OVER 65 FLUZONE HIGH DOSE OVER 65 Unknown Completed [facility] FLUZONE HIGH DOSE OVER 65 FLUZONE HIGH DOSE OVER 65 Unknown Completed [facility] FLUZONE HIGH DOSE OVER 65 FLUZONE HIGH DOSE OVER 65 Unknown Completed [facility] FLUZONE HIGH DOSE OVER 65 FLUZONE HIGH DOSE OVER 65 Unknown Completed [facility] MODERNA COVID-19 VACCINE (LOW DOSE BOOSTER) MODERNA COVID-19 VACCINE (LOW DOSE BOOSTER) Unknown Completed [facility] Moderna COVID-19 Vaccine Moderna COVID-19 Vaccine Unknown Completed [facility] Moderna COVID-19 Vaccine Moderna COVID-19 Vaccine Unknown Completed [facility] FLUZONE HIGH DOSE OVER 65 FLUZONE HIGH DOSE OVER 65 Unknown Completed [facility] FLUZONE HIGH DOSE OVER 65 FLUZONE HIGH DOSE OVER 65 Unknown Completed [facility] FLUZONE HIGH DOSE OVER 65 FLUZONE HIGH DOSE OVER 65 Unknown Completed [facility] FLUZONE HIGH DOSE OVER 65 FLUZONE HIGH DOSE OVER 65 Unknown Completed [facility] MODERNA COVID-19 VACCINE (LOW DOSE BOOSTER) MODERNA COVID-19 VACCINE (LOW DOSE BOOSTER) Unknown Completed [facility] Moderna COVID-19 Vaccine Moderna COVID-19 Vaccine Unknown Completed [facility] Moderna COVID-19 Vaccine Moderna COVID-19 Vaccine Unknown Completed [facility] FLUZONE HIGH DOSE OVER 65 FLUZONE HIGH DOSE OVER 65 Unknown Completed [facility] FLUZONE HIGH DOSE OVER 65 FLUZONE HIGH DOSE OVER 65 Unknown Completed [facility] FLUZONE HIGH DOSE OVER 65 FLUZONE HIGH DOSE OVER 65 Unknown Completed [facility] FLUZONE HIGH DOSE OVER 65 FLUZONE HIGH DOSE OVER 65 Unknown Completed [facility] MODERNA COVID-19 VACCINE (LOW DOSE BOOSTER) MODERNA COVID-19 VACCINE (LOW DOSE BOOSTER) Unknown Completed [facility] Moderna COVID-19 Vaccine Moderna COVID-19 Vaccine Unknown Completed [facility] Moderna COVID-19 Vaccine Moderna COVID-19 Vaccine Unknown Completed [facility] FLUZONE HIGH DOSE OVER 65 FLUZONE HIGH DOSE OVER 65 Unknown Completed [facility] FLUZONE HIGH DOSE OVER 65 FLUZONE HIGH DOSE OVER 65 Unknown Completed [facility] FLUZONE HIGH DOSE OVER 65 FLUZONE HIGH DOSE OVER 65 Unknown Completed [facility] FLUZONE HIGH DOSE OVER 65 FLUZONE HIGH DOSE OVER 65 Unknown Completed [facility] MODERNA COVID-19 VACCINE (LOW DOSE BOOSTER) MODERNA COVID-19 VACCINE (LOW DOSE BOOSTER) Unknown Completed [facility] Moderna COVID-19 Vaccine Moderna COVID-19 Vaccine Unknown Completed [facility] Moderna COVID-19 Vaccine Moderna COVID-19 Vaccine Unknown Completed [facility] FLUZONE HIGH DOSE OVER 65 FLUZONE HIGH DOSE OVER 65 Unknown Completed [facility] FLUZONE HIGH DOSE OVER 65 FLUZONE HIGH DOSE OVER 65 Unknown Completed [facility] FLUZONE HIGH DOSE OVER 65 FLUZONE HIGH DOSE OVER 65 Unknown Completed [facility] FLUZONE HIGH DOSE OVER 65 FLUZONE HIGH DOSE OVER 65 Unknown Completed [facility] MODERNA COVID-19 VACCINE (LOW DOSE BOOSTER) MODERNA COVID-19 VACCINE (LOW DOSE BOOSTER) Unknown Completed [facility] Moderna COVID-19 Vaccine Moderna COVID-19 Vaccine Unknown Completed [facility] Moderna COVID-19 Vaccine Moderna COVID-19 Vaccine Unknown Completed [facility] FLUZONE HIGH DOSE OVER 65 FLUZONE HIGH DOSE OVER 65 Unknown Completed [facility] FLUZONE HIGH DOSE OVER 65 FLUZONE HIGH DOSE OVER 65 Unknown Completed [facility] FLUZONE HIGH DOSE OVER 65 FLUZONE HIGH DOSE OVER 65 Unknown Completed [facility] FLUZONE HIGH DOSE OVER 65 FLUZONE HIGH DOSE OVER 65 Unknown Completed [facility] MODERNA COVID-19 VACCINE (LOW DOSE BOOSTER) MODERNA COVID-19 VACCINE (LOW DOSE BOOSTER) Unknown Completed [facility] Moderna COVID-19 Vaccine Moderna COVID-19 Vaccine Unknown Completed [facility] Moderna COVID-19 Vaccine Moderna COVID-19 Vaccine Unknown Completed [facility] FLUZONE HIGH DOSE OVER 65 FLUZONE HIGH DOSE OVER 65 Unknown Completed [facility] FLUZONE HIGH DOSE OVER 65 FLUZONE HIGH DOSE OVER 65 Unknown Completed [facility] FLUZONE HIGH DOSE OVER 65 FLUZONE HIGH DOSE OVER 65 Unknown Completed [facility] FLUZONE HIGH DOSE OVER 65 FLUZONE HIGH DOSE OVER 65 Unknown Completed [facility] MODERNA COVID-19 VACCINE (LOW DOSE BOOSTER) MODERNA COVID-19 VACCINE (LOW DOSE BOOSTER) Unknown Completed [facility] Moderna COVID-19 Vaccine Moderna COVID-19 Vaccine Unknown Completed [facility] Moderna COVID-19 Vaccine Moderna COVID-19 Vaccine Unknown Completed [facility] FLUZONE HIGH DOSE OVER 65 FLUZONE HIGH DOSE OVER 65 Unknown Completed [facility] FLUZONE HIGH DOSE OVER 65 FLUZONE HIGH DOSE OVER 65 Unknown Completed [facility] FLUZONE HIGH DOSE OVER 65 FLUZONE HIGH DOSE OVER 65 Unknown Completed [facility] FLUZONE HIGH DOSE OVER 65 FLUZONE HIGH DOSE OVER 65 Unknown Completed [facility] MODERNA COVID-19 VACCINE (LOW DOSE BOOSTER) MODERNA COVID-19 VACCINE (LOW DOSE BOOSTER) Unknown Completed [facility] Moderna COVID-19 Vaccine Moderna COVID-19 Vaccine Unknown Completed [facility] Moderna COVID-19 Vaccine Moderna COVID-19 Vaccine Unknown Completed [facility] FLUZONE HIGH DOSE OVER 65 FLUZONE HIGH DOSE OVER 65 Unknown Completed [facility] FLUZONE HIGH DOSE OVER 65 FLUZONE HIGH DOSE OVER 65 Unknown Completed [facility] FLUZONE HIGH DOSE OVER 65 FLUZONE HIGH DOSE OVER 65 Unknown Completed [facility] FLUZONE HIGH DOSE OVER 65 FLUZONE HIGH DOSE OVER 65 Unknown Completed [facility] Moderna COVID-19 Vaccine (Low Dose Booster) Moderna COVID-19 Vaccine (Low Dose Booster) Unknown Completed [facility] Moderna COVID-19 Vaccine Moderna COVID-19 Vaccine Unknown Completed [facility] Moderna COVID-19 Vaccine Moderna COVID-19 Vaccine Unknown Completed [facility] FLUZONE HIGH DOSE OVER 65 FLUZONE HIGH DOSE OVER 65 Unknown Completed [facility] FLUZONE HIGH DOSE OVER 65 FLUZONE HIGH DOSE OVER 65 Unknown Completed [facility] FLUZONE HIGH DOSE OVER 65 FLUZONE HIGH DOSE OVER 65 Unknown Completed [facility] FLUZONE HIGH DOSE OVER 65 FLUZONE HIGH DOSE OVER 65 Unknown Completed [facility] Moderna COVID-19 Vaccine (Low Dose Booster) Moderna COVID-19 Vaccine (Low Dose Booster) Unknown Completed [facility] Moderna COVID-19 Vaccine Moderna COVID-19 Vaccine Unknown Completed [facility] Moderna COVID-19 Vaccine Moderna COVID-19 Vaccine Unknown Completed [facility] FLUZONE HIGH DOSE OVER 65 FLUZONE HIGH DOSE OVER 65 Unknown Completed [facility] FLUZONE HIGH DOSE OVER 65 FLUZONE HIGH DOSE OVER 65 Unknown Completed [facility] FLUZONE HIGH DOSE OVER 65 FLUZONE HIGH DOSE OVER 65 Unknown Completed [facility] FLUZONE HIGH DOSE OVER 65 FLUZONE HIGH DOSE OVER 65 Unknown Completed [facility] Moderna COVID-19 Vaccine (Low Dose Booster) Moderna COVID-19 Vaccine (Low Dose Booster) Unknown Completed [facility] Moderna COVID-19 Vaccine Moderna COVID-19 Vaccine Unknown Completed [facility] Moderna COVID-19 Vaccine Moderna COVID-19 Vaccine Unknown Completed [facility] FLUZONE HIGH DOSE OVER 65 FLUZONE HIGH DOSE OVER 65 Unknown Completed [facility] FLUZONE HIGH DOSE OVER 65 FLUZONE HIGH DOSE OVER 65 Unknown Completed [facility] FLUZONE HIGH DOSE OVER 65 FLUZONE HIGH DOSE OVER 65 Unknown Completed [facility] FLUZONE HIGH DOSE OVER 65 FLUZONE HIGH DOSE OVER 65 Unknown Completed [facility] Moderna COVID-19 Vaccine (Low Dose Booster) Moderna COVID-19 Vaccine (Low Dose Booster) Unknown Completed [facility] Moderna COVID-19 Vaccine Moderna COVID-19 Vaccine Unknown Completed [facility] Moderna COVID-19 Vaccine Moderna COVID-19 Vaccine Unknown Completed [facility] FLUZONE HIGH DOSE OVER 65 FLUZONE HIGH DOSE OVER 65 Unknown Completed [facility] FLUZONE HIGH DOSE OVER 65 FLUZONE HIGH DOSE OVER 65 Unknown Completed [facility] FLUZONE HIGH DOSE OVER 65 FLUZONE HIGH DOSE OVER 65 Unknown Completed [facility] FLUZONE HIGH DOSE OVER 65 FLUZONE HIGH DOSE OVER 65 Unknown Completed [facility] Moderna COVID-19 Vaccine (Low Dose Booster) Moderna COVID-19 Vaccine (Low Dose Booster) Unknown Completed [facility] Moderna COVID-19 Vaccine Moderna COVID-19 Vaccine Unknown Completed [facility] Moderna COVID-19 Vaccine Moderna COVID-19 Vaccine Unknown Completed [facility] FLUZONE HIGH DOSE OVER 65 FLUZONE HIGH DOSE OVER 65 Unknown Completed [facility] FLUZONE HIGH DOSE OVER 65 FLUZONE HIGH DOSE OVER 65 Unknown Completed [facility] FLUZONE HIGH DOSE OVER 65 FLUZONE HIGH DOSE OVER 65 Unknown Completed [facility] FLUZONE HIGH DOSE OVER 65 FLUZONE HIGH DOSE OVER 65 Unknown Completed [facility] Moderna COVID-19 Vaccine (Low Dose Booster) Moderna COVID-19 Vaccine (Low Dose Booster) Unknown Completed [facility] Moderna COVID-19 Vaccine Moderna COVID-19 Vaccine Unknown Completed [facility] Moderna COVID-19 Vaccine Moderna COVID-19 Vaccine Unknown Completed [facility] FLUZONE HIGH DOSE OVER 65 FLUZONE HIGH DOSE OVER 65 Unknown Completed [facility] FLUZONE HIGH DOSE OVER 65 FLUZONE HIGH DOSE OVER 65 Unknown Completed [facility] FLUZONE HIGH DOSE OVER 65 FLUZONE HIGH DOSE OVER 65 Unknown Completed [facility] FLUZONE HIGH DOSE OVER 65 FLUZONE HIGH DOSE OVER 65 Unknown Completed [facility] Moderna COVID-19 Vaccine (Low Dose Booster) Moderna COVID-19 Vaccine (Low Dose Booster) Unknown Completed [facility] Moderna COVID-19 Vaccine Moderna COVID-19 Vaccine Unknown Completed [facility] Moderna COVID-19 Vaccine Moderna COVID-19 Vaccine Unknown Completed [facility] FLUZONE HIGH DOSE OVER 65 FLUZONE HIGH DOSE OVER 65 Unknown Completed [facility] FLUZONE HIGH DOSE OVER 65 FLUZONE HIGH DOSE OVER 65 Unknown Completed [facility] FLUZONE HIGH DOSE OVER 65 FLUZONE HIGH DOSE OVER 65 Unknown Completed [facility] FLUZONE HIGH DOSE OVER 65 FLUZONE HIGH DOSE OVER 65 Unknown Completed [facility] Moderna COVID-19 Vaccine (Low Dose Booster) Moderna COVID-19 Vaccine (Low Dose Booster) Unknown Completed [facility] Moderna COVID-19 Vaccine Moderna COVID-19 Vaccine Unknown Completed [facility] Moderna COVID-19 Vaccine Moderna COVID-19 Vaccine Unknown Completed [facility] FLUZONE HIGH DOSE OVER 65 FLUZONE HIGH DOSE OVER 65 Unknown Completed [facility] FLUZONE HIGH DOSE OVER 65 FLUZONE HIGH DOSE OVER 65 Unknown Completed [facility] FLUZONE HIGH DOSE OVER 65 FLUZONE HIGH DOSE OVER 65 Unknown Completed [facility] FLUZONE HIGH DOSE OVER 65 FLUZONE HIGH DOSE OVER 65 Unknown Completed [facility] Moderna COVID-19 Vaccine (Low Dose Booster) Moderna COVID-19 Vaccine (Low Dose Booster) Unknown Completed [facility] Moderna COVID-19 Vaccine Moderna COVID-19 Vaccine Unknown Completed [facility] Moderna COVID-19 Vaccine Moderna COVID-19 Vaccine Unknown Completed [facility] FLUZONE HIGH DOSE OVER 65 FLUZONE HIGH DOSE OVER 65 Unknown Completed [facility] FLUZONE HIGH DOSE OVER 65 FLUZONE HIGH DOSE OVER 65 Unknown Completed [facility] FLUZONE HIGH DOSE OVER 65 FLUZONE HIGH DOSE OVER 65 Unknown Completed [facility] FLUZONE HIGH DOSE OVER 65 FLUZONE HIGH DOSE OVER 65 Unknown Completed [facility] Vital Signs Vital Name Observation Time Observation Value Comments Justin simms height 2023-12-25 10:30:00 71 [in_i] Commo n [facility] weight 2023-12-25 10:30:00 144.6 [lb_av] Co [facility] temperature 2023-12-25 10:30:00 97.7 [degF] Com [facility] bmi 2023-12-25 10:30:00 20.17 kg/m2 Comm on [facility] oximetry 2023-12-25 10:30:00 99 % Commo n [facility] respiratory rate 2023-12-25 10:30:00 16 /min [facility] blood pressure systolic 2023-12-25 10:30:00 110 mm[Hg] Common [facility] blood pressure diastolic 2023-12-25 10:30:00 62 mm[Hg] [facility] height 2023-12-25 10:30:00 71 [in_i] Commo n [facility] weight 2023-12-25 10:30:00 144.6 [facility]lb_av[facility]-25 10:30:00 97.7 [degF] Com [facility] bmi 2023-12-25 10:30:00 20.17 kg/m2 Comm on [facility] oximetry 2023-12-25 10:30:00 99 % Commo n [facility] blood pressure systolic 2023-12-25 10:30:00 110 mm[Hg] Common [facility] blood pressure diastolic 2023-12-25 10:30:00 62 mm[Hg] [facility] Systolic blood pressure 2023-12-24 15:22:00 146 mm[Hg] [facility] Diastolic blood pressure 2023-12-24 15:22:00 72 mm[Hg] [facility] Heart rate 2023-12-24 15:22:00 77 /min [facility] 2023-12-24 15:18:00 36.22 Niral[facility] height 2023-12-24 15:18:00 180.3 [facility] 2023-12-24 15:18:00 65[facility]772 [facility] BMI 2023-12-24 15:18:00 20.22 kg[facility]m2 [facility] 2023-11-07 09:45:00 71 [in_i] Commo n [facility] weight 2023-11-07 09:45:00 143.2 [lb_av] Co mmon [facility] temperature 2023-11-07 09:45:00 97.9 [degF] Com mon [facility] bmi 2023-11-07 09:45:00 19.97 kg/m2 Comm on [facility] oximetry 2023-11-07 09:45:00 96 % Commo n [facility] respiratory rate 2023-11-07 09:45:00 17 /min [facility] blood pressure systolic 2023-11-07 09:45:00 110 mm[Hg] [facility] blood pressure diastolic 2023-11-07 09:45:00 57 mm[Hg] Common [facility] height 2023-07-19 11:20:00 71 [in_i] Commo n [facility] weight 2023-07-19 11:20:00 145 [lb_av] Comm on [facility] temperature 2023-07-19 11:20:00 98.6 [degF] Com [facility] bmi 2023-07-19 11:20:00 20.22 kg/m2 Comm on [facility] blood pressure systolic 2023-07-19 11:20:00 122 mm[Hg] [facility] blood pressure diastolic 2023-07-19 11:20:00 67 mm[facility]Hg[facility] height 2023-05-03 14:30:00 71 [in_i] Commo n [facility] weight 2023-05-03 14:30:00 150 [lb_av] Comm on [facility] temperature 2023-05-03 14:30:00 98.4 [degF] Com mon [facility] bmi 2023-05-03 14:30:00 20.92 kg/m2 Comm on [facility] oximetry 2023-05-03 14:30:00 100 % Commo n [facility] respiratory rate 2023-05-03 14:30:00 16 /min [facility] blood pressure systolic 2023-05-03 14:30:00 118 mm[Hg] [facility] blood pressure diastolic 2023-05-03 14:30:00 58 mm[Hg] [facility] height 2023-02-15 14:15:00 71 [in_i] Commo n [facility] weight 2023-02-15 14:15:00 148.6 [lb_av] Co mmon [facility] temperature 2023-02-15 14:15:00 97.6 [degF] Com mon [facility] bmi 2023-02-15 14:15:00 20.72 kg/m2 Comm on [facility] oximetry 2023-02-15 14:15:00 97 % Commo n [facility] respiratory rate 2023-02-15 14:15:00 18 /min Common [facility] blood pressure systolic 2023-02-15 14:15:00 114 mm[Hg] [facility] blood pressure diastolic 2023-02-15 14:15:00 65 mm[facility]Hg] [facility] 2022-12-11 13:00:00 71 [in_i] Commo n [facility] weight 2022-12-11 13:00:00 140 [lb_av] Comm on [facility] temperature 2022-12-11 13:00:00 97.4 [degF] Com [facility] bmi 2022-12-11 13:00:00 19.52 kg/m2 Comm on [facility] oximetry 2022-12-11 13:00:00 95 % Commo n [facility] respiratory rate 2022-12-11 13:00:00 16 /min Common [facility] blood pressure systolic 2022-12-11 13:00:00 120 mm[Hg] [facility] blood pressure diastolic 2022-12-11 13:00:00 59 mm[Hg] [facility] height 2022-11-17 10:45:00 71 [in_i] Commo n [facility] weight 2022-11-17 10:45:00 140 [lb_av] Comm on [facility] temperature 2022-11-17 10:45:00 98.0 [degF] Com [facility] bmi 2022-11-17 10:45:00 19.52 kg/m2 Comm on [facility] oximetry 2022-11-17 10:45:00 98 % Commo n [facility] respiratory rate 2022-11-17 10:45:00 18 /min Common [facility] blood pressure systolic 2022-11-17 10:45:00 87 mm[Hg] [facility] blood pressure diastolic 2022-11-17 10:45:00 52 mm[Hg] Common [facility] height 2022-11-10 09:40:00 71 [in_i] Commo n [facility] weight 2022-11-10 09:40:00 150 [lb_av] Comm on [facility] temperature 2022-11-10 09:40:00 97.2 [degF] Com mon [facility] bmi 2022-11-10 09:40:00 20.92 kg/m2 Comm on [facility] oximetry 2022-11-10 09:40:00 100 % Commo n [facility] respiratory rate 2022-11-10 09:40:00 18 /min Common [facility] blood pressure systolic 2022-11-10 09:40:00 110 mm[Hg] [facility] blood pressure diastolic 2022-11-10 09:40:00 60 mm[Hg] [facility] height 2022-10-18 08:00:00 71 [in_i] Commo n [facility] weight 2022-10-18 08:00:00 152 [lb_av] Comm on [facility] temperature 2022-10-18 08:00:00 97.4 [degF] Com [facility] bmi 2022-10-18 08:00:00 21.2 kg/m2 Commo n [facility] blood pressure systolic 2022-10-18 08:00:00 125 mm[Hg] [facility] blood pressure diastolic 2022-10-18 08:00:00 70 mm[Hg] [facility] height 2022-07-05 16:00:00 71 [in_i] Commo n [facility] weight 2022-07-05 16:00:00 150 [lb_av] Comm on [facility] temperature 2022-07-05 16:00:00 98 [degF] Comm on [facility] bmi 2022-07-05 16:00:00 20.92 kg/m2 Comm on [facility] blood pressure systolic 2022-07-05 16:00:00 119 mm[Hg] [facility] blood pressure diastolic 2022-07-05 16:00:00 75 mm[Hg] [facility] height 2022-07-05 15:30:00 71 [in_i] Commo n [facility] weight 2022-07-05 15:30:00 150 [lb_av] Comm on [facility] temperature 2022-07-05 15:30:00 98 [degF] Comm on [facility] bmi 2022-07-05 15:30:00 20.92 kg/m2 Comm on [facility] blood pressure systolic 2022-07-05 15:30:00 119 mm[facility]Hg[facility] diastolic 2022-07-05 15:30:00 75 mm[Hg] [facility] height 2022-05-31 16:20:00 71 [in_i] Commo n [facility] weight 2022-05-31 16:20:00 150.0 [lb_av] Co mmon [facility] temperature 2022-05-31 16:20:00 98.2 [degF] Com mon [facility] bmi 2022-05-31 16:20:00 20.92 kg/m2 Comm on [facility] oximetry 2022-05-31 16:20:00 97 % Commo n [facility] respiratory rate 2022-05-31 16:20:00 18 /min Common [facility] blood pressure systolic 2022-05-31 16:20:00 122 mm[facility]Hg] [facility] diastolic 2022-05-31 16:20:00 58 mm[Hg] Common [facility] Systolic blood pressure 2022-04-11 18:12:00 153 mm[Hg] [facility] Diastolic blood pressure 2022-04-11 18:12:00 69 mm[Hg] [facility] Heart rate 2022-04-11 18:12:00 71 /min [facility] height 2022-03-22 13:00:00 71 [in_i] Commo n [facility] weight 2022-03-22 13:00:00 150 [lb_av] Comm on [facility] temperature 2022-03-22 13:00:00 98.2 [degF] Com mon [facility] bmi 2022-03-22 13:00:00 20.92 kg/m2 Comm on [facility] oximetry 2022-03-22 13:00:00 99 % Commo n [facility] respiratory rate 2022-03-22 13:00:00 17 /min Common [facility] blood pressure systolic 2022-03-22 13:00:00 90 mm[Hg] [facility] blood pressure diastolic 2022-03-22 13:00:00 54 mm[Hg] [facility] Procedures Procedure Date / Time Performed Performing Clinicia n Source PVR 2023-11-07 00:00:00 Common [facility] PVR 2023-02-15 00:00:00 [facility] HEAVY METALS SCREEN, URINE 2022-04-18 20:15:00 Lewis Mccarty [facility] VITAMIN B12 2022-04-14 00:00:00 Lewis Mccarty [facility] TSH 2022-04-14 00:00:00 Lewis Mccarty [facility] COPPER 2022-04-14 00:00:00 Lewis Mccarty [facility] Encounters Start Date/Time End Date/Time Encounter Type Admission Type Attending Clinicians Care Facility Care Department Encounter ID Source 2023-12-25 10:49:00 Outpatient Leticia Lake [facility] [id number] [facility] 2023-04-19 09:20:46 Outpatient [facility] [id number] [facility] 2023-04-12 13:45:31 Outpatient [facility] [id number] [facility] 2023-01-16 13:50:03 Outpatient [place] [facility] [id number] [facility] 2022-11-09 11:19:01 Outpatient Real, [facility] [id number] [facility] 2022-11-08 07:33:01 Outpatient Real, [facility] [id number] [facility] 2022-10-16 08:41:01 Outpatient Real, [facility] [id number] [facility] 2022-08-11 13:29:47 Outpatient [facility] [id number] [facility] 2022-07-18 11:13:04 Outpatient Real, [facility] [id number] [facility] 2022-07-13 14:05:03 Outpatient Real, [facility] [id number] [facility] 2022-07-06 15:56:01 Outpatient Real, [facility] [id number] [facility] 2022-06-01 14:08:02 Outpatient Real, [facility] [id number] [facility] 2022-04-13 15:18:02 Outpatient Real, [facility] [id number] [facility] 2022-03-22 13:05:02 Outpatient Real, [facility] [id number] [facility] 2022-03-13 09:23:09 Outpatient 3 Javier Weinstein ENCPL CVA [id number] [facility] 2022-03-07 10:47:49 Outpatient 3 Javier Weinstein ENCPL CVA [id number] [facility] 2022-03-06 11:03:26 Outpatient 3 [id number] ENCPL REF [id number] [facility] Robert aragon 2020-12-11 23:40:36 Inpatient HCAPM HCAPM [id number] [facility] 2024-02-04 09:00:00 2024-02-04 09:00:00 Outpatient TARA NIEVES [facility] [id number] [facility] 2024-01-14 00:00:00 2024-01-14 00:00:00 (TEL) STLMLC STLMLC [id number] [facility] 2024-01-03 00:00:00 2024-01-03 00:00:00 (TEL) STLMLC STLMLC [id number] [facility] 2024-01-02 00:00:00 2024-01-02 00:00:00 (TEL) STLMLC STLMLC [id number] [facility] 2024-01-01 00:00:00 2024-01-01 00:00:00 (TEL) STLMLC STLMLC [id number] [facility] 2023-12-26 11:00:00 2023-12-26 11:18:39 Outpatient [facility] [id number] [facility] 2023-12-25 00:00:00 2023-12-25 00:00:00 SUB ANNUAL [facility] WELLNESS VISIT STLMLC STLMLC [id number] [facility] 2023-12-25 00:00:00 2023-12-25 00:00:00 OFFICE VISIT NEW PT LEVEL 4 STLMLC STLMLC [id number] [facility] 2023-12-25 00:00:00 2023-12-25 00:00:00 (TEL) STLMLC STLMLC [id number] [facility] 2023-12-24 11:00:00 2023-12-24 12:03:32 Outpatient [facility] [id number] [facility] 2023-12-24 09:00:00 2023-12-24 10:17:07 Office Visit DavinTara [facility] [address] [id number] [id number] [id number] [facility] 2023-12-05 10:00:00 2023-12-05 10:34:15 Telemedici anum Lul Lewis [facility] [address] 1.2.840.114 [id number] [id number] [id number] [facility] 2023-12-05 00:00:00 2023-12-05 00:00:00 (TEL) STLMLC STLMLC [id number] [facility] 2023-12-03 00:00:00 2023-12-03 00:00:00 (TEL) STLMLC STLMLC [id number] [facility] 2023-11-29 14:30:00 2023-11-29 14:30:00 Outpatient LEWIS MCCARTY [facility] [id number] [facility] 2023-11-07 00:00:00 2023-11-07 00:00:00 OFFICE VISIT ESTAB PT LEVEL 3 STLMLC STLMLC [id number] [facility] 2023-11-01 00:00:00 2023-11-01 00:00:00 (TEL) STLMLC STLMLC [id number] [facility] 2023-09-26 00:00:00 2023-09-26 00:00:00 (TEL) STLMLC STLMLC [id number] [facility] 2023-08-02 15:00:00 2023-08-02 15:28:35 Telemedici anum MccartyLewis [facility] [address] 1.2.840.114 350.1.13.58 9.2.7.2.686 [id number] [facility] 2023-07-30 00:00:00 2023-07-30 00:00:00 (TEL) STLMLC STLMLC [id number] [facility] 2023-07-19 00:00:00 2023-07-19 00:00:00 OFFICE VISIT ESTAB PT LEVEL 4 STLMLC STLMLC [id number] [facility] 2023-05-03 00:00:00 2023-05-03 00:00:00 OFFICE VISIT ESTAB PT LEVEL 3 STLMLC STLMLC [id number] [facility] 2023-04-24 14:00:00 2023-04-24 14:48:11 Telemedici Lewis Baca [facility] 1.2.840.114 350.1.13.58 [id number] [id number] [facility] 2023-02-15 00:00:00 2023-02-15 00:00:00 OFFICE VISIT ESTAB PT LEVEL 3 STLMLC STLMLC [id number] [facility] 2023-01-31 00:00:00 2023-01-31 00:00:00 (TEL) STLMLC STLMLC [id number] [facility] 2023-01-23 00:00:00 2023-01-23 00:00:00 (TEL) STLMLC STLMLC [id number] [facility] 2023-01-16 00:00:00 2023-01-16 00:00:00 (TEL) STLMLC STLMLC [id number] [facility] 2023-01-16 00:00:00 2023-01-16 00:00:00 (TEL) STLMLC STLMLC [id number] [facility] 2022-12-25 00:00:00 2022-12-25 00:00:00 (TEL) STLMLC STLMLC [id number] [facility] 2022-12-16 00:00:00 2022-12-16 00:00:00 (TEL) STLMLC STLMLC [id number] [facility] 2022-12-11 00:00:00 2022-12-11 00:00:00 OFFICE VISIT ESTAB PT LEVEL 4 STLMLC STLMLC [id number] [facility] 2022-11-29 00:00:00 2022-11-29 00:00:00 (PROC) Procedure STLMLC STLMLC [id number] [facility] 2022-11-20 00:00:00 2022-11-20 00:00:00 (TEL) STLMLC STLMLC [id number] [facility] 2022-11-17 00:00:00 2022-11-17 00:00:00 OFFICE VISIT EST PT LEVEL 3 STLMLC STLMLC [id number] [facility] 2022-11-10 00:00:00 2022-11-10 00:00:00 (HOSP F/U) Hospital Follow Up STLMLC STLMLC [id number] [facility] 2022-11-09 00:00:00 2022-11-09 00:00:00 (TEL) STLMLC STLMLC [id number] [facility] 2022-11-06 00:00:00 2022-11-06 00:00:00 (TEL) STLMLC STLMLC [id number] [facility] 2022-10-31 00:00:00 2022-10-31 00:00:00 (TEL) STLMLC STLMLC [id number] [facility] 2022-10-18 00:00:00 2022-10-18 00:00:00 OFFICE VISIT ESTAB PT LEVEL 4 STLMLC STLMLC [id number] [facility] 2022-08-28 00:00:00 2022-08-28 00:00:00 (TEL) STLMLC STLMLC [id number] [facility] 2022-08-15 00:00:00 2022-08-15 00:00:00 (TEL) STLMLC STLMLC [id number] [facility] 2022-05-22 00:00:00 2022-07-20 00:00:00 Outpatient NEW ADMISSION JAVIER WEINSTEIN ENCCLR ENCCLR [id number] [facility] 2022-07-05 00:00:00 2022-07-05 00:00:00 OFFICE VISIT ESTAB PT LEVEL 4 [facility] [id number] [facility] 2022-07-05 00:00:00 2022-07-05 00:00:00 SUB ANNUAL [facility] WELLNESS VISIT [facility] [id number] [facility] 2022-07-05 00:00:00 2022-07-05 00:00:00 (TEL) [facility] [id number] [facility] 2022-06-05 14:00:00 2022-06-05 14:18:23 Office Visit Shashi Lee [facility] 1.2.840.114 350.1.13.58 [id number] [id number] [facility] 2022-06-02 00:00:00 2022-06-02 00:00:00 Telephone Shashi Lee BBSB 1.2.840.114 350.1.13.58 [id number] [id number] [facility] 2022-05-31 00:00:00 2022-05-31 00:00:00 OFFICE VISIT ESTAB PT LEVEL 4 [facility] [id number] [facility] 2022-05-26 10:50:00 2022-05-26 23:59:00 Outpatient LEWIS MCCARTY [facility] [id number] [facility] 2022-05-23 00:00:00 2022-05-23 00:00:00 (TEL) [facility] [id number] [facility] 2022-05-22 00:00:00 2022-05-22 00:00:00 (TEL) [facility] [id number] [facility] 2022-05-03 16:39:00 2022-05-20 11:20:00 Inpatient 3 JadeneliasJavier [facility] [place] [id number] [facility] [place] 2022-05-15 00:00:00 2022-05-15 00:00:00 (TEL) STLMLC STLMLC [id number] [facility] 2022-05-02 17:13:00 2022-05-03 15:56:00 Outpatient U JAZZ ALAMO [facility] [id number] [facility] 2022-05-01 00:00:00 2022-05-01 00:00:00 Telephone Nanci aragon, Darling aragon, Darling UTP [facility] 1.2.840.114 350.1.13.58 [id number] [id number] [facility] 2022-04-18 00:00:00 2022-04-18 00:00:00 Telephone Lewis Mccarty [facility] [id number] [facility] 1.2.840.114 350.1.13.58 [id number] [id number] [facility] 2022-04-11 13:00:00 2022-04-11 14:39:51 Office Visit Lewis Mccarty [facility] 1.2.840.114 350.1.13.58 [id number] [id number] [facility] 2022-04-01 00:00:00 2022-04-01 00:00:00 (TEL) STLC STLMLC [id number] [facility] 2022-03-31 00:00:00 2022-03-31 00:00:00 (TEL) STLC STLC [id number] [facility] 2022-03-22 00:00:00 2022-03-22 00:00:00 OFFICE VISIT EST PT LEVEL 3 STLC STLMLC [id number] [facility] 2022-03-06 17:28:00 2022-03-06 23:44:00 Emergency E DIOR RODGERS [facility] [id number] [facility] 2022-02-23 14:06:00 2022-02-27 20:49:00 Outpatient E YONAS REYES [facility] [id number] [facility] 2021-12-10 17:30:00 2021-12-10 22:35:00 Emergency [id number] 2021-02-28 13:19:00 2021-02-28 23:59:00 Outpatient NOHEMY KHALIL [facility] 75[address] [facility] 2020-01-14 12:47:00 2020-01-14 12:47:00 Outpatient Ige-Odunuga _J_AH VFP VFP [id number] 2020-01-14 12:47:00 2020-01-14 12:47:00 Outpatient Ige-Odunuga _J_AH VFP VFP [id number] [facility] Results Test Description Test Time Test Comments Results Result Co mments Source NE [id number] 09:00:00* Test Item Value Reference Range Interpretation Comme nts COPPER (test code = 5631-7) See_Comment This test was developed and its analytical performance characteristics have been determined by [employer]. It has not been cleared or approved by theA. This assay has been validated pursuant to the CLIA regulations and is used for clinical purposes. [Automated message] The system which generated this result transmitted reference range: 70 - 175 mcg/dL. The reference range was not used to interpret this result as normal/abnormal. STACIA (test code = RAC) Performing Organization Information: ? ?Site ID: [facility] ? ?Name: [facility] ? ?Address: [address] [place] [address] ? ?Director: RONI KRAMER MD [facility] [id number] 09:00:00* Test Item Value Reference Range Interpretation Comments VITAMIN B12 (test code = 2132-9) 280 pg/mL 200-1100 Please Note: Alt franklyn the reference range for [id number] is 200-1100 pg/mL, it has been reported that between5 and 10% of patients with values between 200 and 400pg/mL may experience neuropsychiatric and hematologicabnormalities due to occult B12 deficiency; less than 1%of patients with values above 400 pg/mL will have symptoms. STACIA (test code = RAC) Performing Organization Information: ? ?Site ID: [facility] ? ?Name: [facility] ? ?Address: [address] [place] [address] ? ?Director: GRACIE SULLIVAN MD [facility] [id number] 09:00:00* Test Item Value Reference Range Interpretation Comme nts TSH (test code = 3016-3) See_Comment [Automated messa ge] The system which generated this result transmitted reference range: 0.40 - 4.50 mIU/L. The reference range was not used to interpret this result as normal/abnormal. RAC (test code = RAC) Performing Organization Information: ? ?Site ID: [facility] ? ?Name: [facility] ? ?Address: [address] [place], [place] [id number] ? ?Director: GRACIE SULLIVAN MD [facility]ED[facility] [id number] 06:38:00* Test Item Value Reference Range Interpretation Comme nts GLUCOSE BEDSIDE TESTING (matt t code = GLUBED) 93 mg/dL 70-110 N BASIC METABOLIC [id number] 06:24:00* Test Item Value Reference Range Interpretation Comme nts SODIUM (test code = NA) 142 mmol/L 134-147 N POTASSIUM (test code = K) 4.3 mmol/L 3.4-5.0 N CHLORIDE (test code = CL) 113 mmol/L 100-108 H CARBON DIOXIDE (test code = CO2) 24 mmol/L 21-32 N ANION GAP (test code = GAP) 5.0 GAP calc 4.0-15.0 N GLUCOSE (test code = GLU) 87 MG/DL 70-110 N BLOOD UREA NITROGEN (test co de = BUN) 12 MG/DL 7-18 N GLOMERULAR FILTRATION RATE ( test code = GFR) 49 estGFR >60 L CREATININE (test code = CREAT) 1.8 MG/DL 0.8-1.3 H CALCIUM (test code = CA) 8.8 MG/DL 8.5-10.1 N GLUCOSE BEDSIDE [id number] 17:01:00* Test Item Value Reference Range Interpretation Comme nts GLUCOSE BEDSIDE TESTING (matt t code = GLUBED) 220 mg/dL 70-110 H GLUCOSE BEDSIDE [id number] 11:37:00* Test Item Value Reference Range Interpretation Comme nts GLUCOSE BEDSIDE TESTING (matt t code = GLUBED) 86 mg/dL 70-110 N GLUCOSE BEDSIDE [id number] 08:10:00* Test Item Value Reference Range Interpretation Comme nts GLUCOSE BEDSIDE TESTING (matt t code = GLUBED) 86 mg/dL 70-110 N BASIC METABOLIC [id number] 05:12:00* Test Item Value Reference Range Interpretation Comme nts SODIUM (test code = NA) 141 mmol/L 134-147 N POTASSIUM (test code = K) 3.8 mmol/L 3.4-5.0 N CHLORIDE (test code = CL) 112 mmol/L 100-108 H CARBON DIOXIDE (test code = CO2) 23 mmol/L 21-32 N ANION GAP (test code = GAP) 6.0 GAP calc 4.0-15.0 N GLUCOSE (test code = GLU) 83 MG/DL 70-110 N BLOOD UREA NITROGEN (test co de = BUN) 13 MG/DL 7-18 N GLOMERULAR FILTRATION RATE ( test code = GFR) 52 estGFR >60 L CREATININE (test code = CREAT) 1.7 MG/DL 0.8-1.3 H CALCIUM (test code = CA) 8.6 MG/DL 8.5-10.1 N BASIC METABOLIC [id number] 05:07:00* Test Item Value Reference Range Interpretation Comme nts SODIUM (test code = NA) 141 mmol/L 134-147 N POTASSIUM (test code = K) 3.8 mmol/L 3.4-5.0 N CHLORIDE (test code = CL) 112 mmol/L 100-108 H CARBON DIOXIDE (test code = CO2) 23 mmol/L 21-32 N ANION GAP (test code = GAP) 6.0 GAP calc 4.0-15.0 N GLUCOSE (test code = GLU) 83 MG/DL 70-110 N BLOOD UREA NITROGEN (test co de = BUN) 13 MG/DL 7-18 N GLOMERULAR FILTRATION RATE ( test code = GFR) estGFR >60 CREATININE (test code = CREAT) MG/DL 0.8-1.3 CALCIUM (test code = CA) 8.6 MG/DL 8.5-10.1 N GLUCOSE BEDSIDE [id number] 20:21:00* Test Item Value Reference Range Interpretation Comme nts GLUCOSE BEDSIDE TESTING (matt t code = GLUBED) 119 mg/dL 70-110 H - CT HEAD/BRAIN W/O [id number] 18:46:00 [facility] 1955 Sex: M Name: RADHA MARMOLEJO [facility] : 1955 Age/S: 65 / M [id number] Unit #: [id number] Loc: [place] [address] Phys: Michele Thompson MD Acct: [id number] Dis Date: Status: ADM IN PHONE #: [phone] Exam Date: 12/10/2020 1843 FAX #: Reason: decrease loc since yesterday EXAMS: CPT: [id number] HEAD/BRAIN W/O CONT 03871 EXAM: CT BRAIN WITHOUT CONTRAST INDICATION: decrease loss of consciousness since yesterday COMPARISON: MR dated December 09, 2020 TECHNIQUE: Routine axial CT imagesof the brain were obtained without venous contrast. IV contrast: None DLP: 875.51 mGy-cm FINDINGS: There is an evolving subacute lacunar infarct in the right thalamus. There are chronic lacunar infarc ts in the right black radiata. There are areas of low-attenuation within the central white matter consistent with chronic microvascular ischemic changes. There is prominence of the ventricles and sulci consistent with diffuse cerebral volume loss. No midline shift or mass effect. The basal cisterns are patent. The posterior fossa and 4th ventricle are normal. No calvarial lesions are identified.The paranasal sinuses and mastoid air cells are clear. The orbits and globes are unremarkable. IMPRESSION: No acute intracranial hemorrhage is identified. Evolving subacute lacunar infarct in the right thalamus. Moderate chronic microvascular ischemic changes and diffuse cerebral volume loss. Chronic lacunar infarct in the right black radiata. LOCATION: B2 This CT exam was performed according toour departmental dose optimization program, which includes automated exposure control, adjustment of the mA and or kV according to patient size and/or use of iterative reconstruction technique. at 1846 Reported and signed by: Me raudel Nielsen M.D. PAGE 1 Signed Report (CONTINUED) Name: RADHA MARMOLEJO [facility] : 1955ge/S: 65 / M [id number] Unit #: [id number] Loc: [place] [address] Phys: Michele Thompson MD Acct: [id number] Dis Date: Status: ADM IN PHONE #: [phone] Exam Date: 12/10/20201842 FAX #: Reason: decrease loc since yesterday EXAMS: CPT: [id number] CT HEAD/BRAIN W/O CONT 83910 (Continued) CC: Michele Thompson MD; Pj Brooks MD Technologist:Sherlyn White RT(R)(CT); En CTDI: DLP: Trnscb Date/Time: 12/10/2020 (1845) [email or web address] Orig Print D/T: S: 12/10/2020 (1848) PAGE2 Signed Report- DUP EXTRACRANIAL [id number] 14:30:00 [facility] : 1955 Sex: M Name:RADHA MARMOLEJO [facility] : 1955 Age/S: 65 / M [address] Unit #: [id number] Loc: [place] [address] Phys: Pj Brooks MD Acct: [id number] Dis Date: Status: ADM IN PHONE #: [phone] Exam Date: 12/10/2020 1400 FAX #: Reason: ISCHEMIC STROKE EXAMS: CPT: [id number] DUP EXTRACRANIAL LAINEY 00030 Dictation location A1 Carotid Doppler Ultrasound HISTORY: [...] CC: Pj Brooks MD Technologist: Nicole Landin [facility] Date/Time: 12/10/2020 (1430) [facility] PAGE 1 Signed Report Name: RADHA MARMOLEJO : 1955 Age/S: 65 / M [address] Unit #: [id number] Loc: [place] [address] Phys: Pj Brooks MD Acct: [id number] Dis Date: Status: ADM IN PHONE #: [phone] Exam Date: 12/10/2020 1400 FAX #: Reason: ISCHEMIC STROKE EXAMS: CPT: [id number] DUP EXTRACRANIAL LAINEY 29422 (Continued) Orig Print D/T: S: 12/10/2020 (1433) Probe: PAGE 2 Signed ReportGLYCOSYLATED HEMOGLOBIN PANEL 2020-12-10 11:30:00* Test Item Value Reference Range Interpretation Comme nts GLYCOSYLATED HEMOGLOBIN (HA1 C) (test code = GLYHGB) 5.8 % A1C 0.0-5.7 H ESTIMATED AVERAGE GLUCOSE (t est code = EAG) 120 MG/DLest COMPREHENSIVE METABOLIC [id number] 11:29:00* Test Item Value Reference Range Interpretation Comme nts SODIUM (test code = NA) 141 mmol/L 134-147 N POTASSIUM (test code = K) 4.0 mmol/L 3.4-5.0 N CHLORIDE (test code = CL) 112 mmol/L 100-108 H CARBON DIOXIDE (test code = CO2) 24 mmol/L 21-32 N ANION GAP (test code = GAP) 5.0 GAP calc 4.0-15.0 N GLUCOSE (test code = GLU) 97 MG/DL 70-110 N BLOOD UREA NITROGEN (test co de = BUN) 12 MG/DL 7-18 N GLOMERULAR FILTRATION RATE ( test code = GFR) 52 estGFR >60 L CREATININE (test code = CREAT) 1.7 MG/DL 0.8-1.3 H TOTAL PROTEIN (test code = PROT) 6.8 G/DL 6.4-8.2 N ALBUMIN (test code = ALB) 3.3 G/DL 3.4-5.0 L GLOBULIN (test code = GLOB) 3.5 GM/dL ALBUMIN/GLOBULIN RATIO (test code = A/G) 0.9 RATIO 1.2-2.2 L CALCIUM (test code = CA) 8.9 MG/DL 8.5-10.1 N BILIRUBIN TOTAL (test code = BILT) 0.60 MG/DL 0.2-1.2 N SGOT/AST (test code = AST) 15 Unit/L 15-37 N SGPT/ALT (test code = ALT) 18 Unit/L 12-78 N ALKALINE PHOSPHATASE TOTAL ( test code = ALKP) 115 Unit/L 50-136 N LIPID PROFILE (CORONARY RISK)2020-12-10 11:29:00* Test Item Value Reference Range Interpretation Comme nts TRIGLYCERIDES (test code = TRIG) 55 MG/DL 0-150 N CHOLESTEROL (test code = CHOL) 102 MG/DL 133-200 L CHOLESTEROL/HDL RATIO (test code = CHOLHDL) 2.08 RATIO See_Comment [Automated message] The system which generated this result transmitted reference range: 0-. The reference range was not used to interpret this result as normal/abnormal. HDL CHOLESTEROL (test code = HDL) 49 MG/DL 40-59 N NON-HDL CHOLESTEROL (test code = NHDL) 53 mg/dL <130 LIPOPROTEIN LDL (test code = LDL) 44 MG/DL 0-129 N LDL/HDL (test code = LDL/HDL) 0.89 Ratio See_Comment L [Automated messa ge] The system which generated this result transmitted reference range: 1.48-3.22 Avg. The reference range was not used to interpret this result as normal/abnormal. CBC W/AUTO [id number] 11:01:00* Test Item Value Reference Range Interpretation Comme nts WHITE BLOOD CELL (test code = WBC) 6.8 K/mm3 3.5-11.0 N RED BLOOD CELL (test code = RBC) 5.02 M/mm3 4.70-6.10 N HEMOGLOBIN (test code = HGB) 14.2 G/DL 12.3-15.9 N HEMATOCRIT (test code = HCT) 44.5 % 35.8-46.7 N MEAN CELL VOLUME (test code = MCV) 88.6 Fl 86.3-98.9 N MEAN CELL HGB (test code = MCH) 28.3 pg 28.9-34.4 L MEAN CELL HGB CONCETRATION (test code = MCHC) 31.9 G/DL 32.1-34.5 L RED CELL DISTRIBUTION WIDTH (test code = RDW) 13.7 SD 11.5-14.5 N PLATELET COUNT (test code = PLT) 243 K/mm3 150-450 N MEAN PLATELET VOLUME (test c ode = MPV) 12.50 fL 7.0-9.6 H NEUTROPHIL % (test code = NT%) 56.0 % 40-76 N IMMATURE GRANULOCYTE % (test code = IG%) 0.1 % 0.0-5.0 N LYMPHOCYTE % (test code = LY%) 28.4 % 20.5-51.1 N MONOCYTE % (test code = MO%) 10.4 % 1.7-9.3 H EOSINOPHIL % (test code = EO%) 3.8 % 0.0-6.0 N BASOPHIL % (test code = BA%) 1.3 % 0.0-2.0 N NUCLEATED RBC % (test code = NRBC%) 0.0 /100WBC% 0.0-1.0 N NEUTROPHIL # (test code = NT#) 3.8 K/mm3 1.8-7.6 N IMMATURE GRANULOCYTE # (test code = IG#) 0.01 x10 3/uL 0.00-0.03 N LYMPHOCYTE # (test code = LY#) 1.9 K/mm3 0.6-3.0 N MONOCYTE # (test code = MO#) 0.7 K/mm3 0.2-1.5 N EOSINOPHIL # (test code = EO#) 0.3 K/mm3 0.0-0.4 N BASOPHIL # (test code = BA#) 0.1 K/mm3 0.0-0.2 N NUCLEATED RBC # (test code = NRBC#) 0.0 K/mm3 0.00-0.01 N MANUAL DIFF REQUIRED (test c ode = MDIFF) NO DIFF/SCN CRITERIA Coronavirus 2018 nCoV [id number] 18:27:00* Test Item Value Reference Range Interpretation Comme nts Coronavirus 2019 nCoV Bedside (test code = [id number]) Negative Negative Per youth development professional , negative results should be treated aspresumptive and, if inconsistent with clinical signs andsymptoms or necessary for patient management, should betested with an alternative molecular assay. Negative resultsdo not preclude SARS-CoV-2 infection and should not be usedas the sole basis for patient management decisions. Negative results should be considered in the context of apatient's recent exposures, history, presence of clinicalsigns and symptoms consistent with COVID-19. - MRI BRAIN W/O [id number] 16:59:00 [facility] 1955 Sex: M FAX: Pj Dubon MD [phone] Camps: PM St: ADM Name: RADHA MARMOLEJO : 1955 Age/S: 65/M [address] Unit #: [id number] Loc: [place] [address] Phys: Pj Brooks MD Acct: [id number] Dis Date: Status: ADM IN PHONE #: [phone] Exam Date: 12/09/2020 165 FAX #: Reason: r/o CVA EXAMS: CPT: [id number] MRI BRAIN W/O CONTRAST 56334 EXAM: MRI BRAIN WITHOUT CONTRAST INDICATION: CVA COMPARISON: CT head dated December 09, 2020 TECHNIQUE: Multiplanar, multisequence MRI of the brain was obtained without administration of intravenous contrast. IV contrast: None FINDINGS: There is a small focus of restricted diffusion in the right thalamus with corresponding hyperintense T2 changes consistent with early subacute lacunar infarct. There are areas of hyperintense T2 changes withinthe supratentorial white matter consistent with moderate chronic [...] MD Technologist: RT Nathaniel(R)(CT) Transcribed Date/Time/By: 12/09/2020 (431) :JeriMD16 Orig Print D/T: S: 12/09/2020 (0043) PAGE 1 Signed ReportUR PROTEIN [id number] 15:35:00* Test Item Value Reference Range Interpretation Comme nts UR PROTEIN TOTAL (test code = PROTU) 19.3 MG/DL 0.0-12.0 H UR CREATININE [id number] 15:35:00* Test Item Value Reference Range Interpretation Comme nts UR CREATININE RANDOM (test c ode = CREATU) 97.1 MG/DL 30-125 N - US RETRO [id number] 15:10:00 [facility] : 1955 Sex: M Name: RADHA MARMOLEJO [facility] : 1955 Age/S: 65 / M [address] Unit #: [id number] Loc: [place] [address] Phys: Gamal Rudd MD Acct: [id number] Dis Date: Status: ADM IN PHONE#: [phone] Exam Date: 12/09/2020 1500 FAX #: Reason: evalm of kidney size and echogenicity forckd EXAMS: CPT: [id number] RETRO LTD [address] Location of dictation: B2 ULTRASOUND OF THE KIDNEYS: CLINICAL HISTORY: Evaluate kidney size and echogenicity for chronic kidney disease COMPARISON: None TECHNIQUE: Multiple high resolution images were obtained through the kidneys using a multifrequency curved transducer. FINDINGS: The right kidney measures 10 x 6 x 6.4 cm. The left kidney measures 13 x8 x 7 cm. The visualized portions of [...] 1. Hyperechoic kidneys. 2. Simple cyst right k idney, multiple cysts versus severe hydronephrosis left kidney. at 1510 Reported and signed by: Gege Wilson M.D. CC: Pj Brooks MD; Gamal Rudd MD Technologist: Nicole Landin [facility] Date/Time: 12/09/2020 (1510) [facility] PAGE 1 Signed Report Name: RADHA MARMOLEJO [facility] : 1955 Age/S: 65 / M [address]: [id number] Loc: [place] [address] Phys: Gamal Rudd MD Acct: [id number] Dis Date: Status: ADM IN PHONE #: [phone] Exam Date: 12/09/2020 1500 FAX #: Reason: evalm of kidneysize and echogenicity for ckd EXAMS: CPT: [id number] RETRO LTD 20472 (Continued) Orig Print D/T: S: 12/09/2020 (151) Probe: PAGE 2 Signed ReportUA RFLX MICR CULT IF [id number] 08:20:00* Test Item Value Reference Range Interpretation Comme nts UA COLOR (test code = COLU) YELLOW discript YEL/STRAW UA APPEARANCE (test code = APPU) CLEAR discript CLEAR UA GLUCOSE DIPSTICK (test code = DGLUU) NEGATIVE mg/dL NEG UA BILIRUBIN DIPSTICK (test code = BILU) NEGATIVE mg/dL NEG UA KETONE DIPSTICK (test code = KETU) NEGATIVE mg/dL NEG UA SPECIFIC GRAVITY (test code = SGU) 1.010 SG 1.005-1.030 UA BLOOD DIPSTICK (test code = ELOY) NEGATIVE mg/DL NEG UA PH DIPSTICK (test code = ESTEPHANIA) 6.0 pH UNITS 5.0-7.0 UA PROTEIN DIPSTICK (test code = PROU) NEGATIVE mg/dL NEG UA UROBILINIOGEN DIPSTICK (test code = URO) 0.2 mg/dL <2.0 UA NITRITE DIPSTICK (test code = JEFFREY) NEGATIVE SCREEN NEG UA LEUKOCYTE ESTERASE DIPSTICK (test code = LEUU) NEGATIVE Leuk/mcL NEGATIVE UA CULTURE NEEDED? (test code = UACULT) Criteria Culture CHK Indication for culture: Dysuria/FrequencyUA RFLX MICR CULT IF INDICATED 2020-12-09 08:20:00* Test Item Value Reference Range Interpretation Comme nts UA COLOR (test code = COLU) YELLOW discript YEL/STRAW UA APPEARANCE (test code = APPU) CLEAR discript CLEAR UA GLUCOSE DIPSTICK (test code = DGLUU) NEGATIVE mg/dL NEG UA BILIRUBIN DIPSTICK (test code = BILU) NEGATIVE mg/dL NEG UA KETONE DIPSTICK (test code = KETU) NEGATIVE mg/dL NEG UA SPECIFIC GRAVITY (test code = SGU) 1.010 SG 1.005-1.030 UA BLOOD DIPSTICK (test code = ELOY) NEGATIVE mg/DL NEG UA PH DIPSTICK (test code = ESTEPHANIA) 6.0 pH UNITS 5.0-7.0 UA PROTEIN DIPSTICK (test code = PROU) NEGATIVE mg/dL NEG UA UROBILINIOGEN DIPSTICK (test code = URO) 0.2 mg/dL <2.0 UA NITRITE DIPSTICK (test code = JEFFREY) NEGATIVE SCREEN NEG UA LEUKOCYTE ESTERASE DIPSTICK (test code = LEUU) NEGATIVE Leuk/mcL NEGATIVE Indication for culture: Dysuria/Frequency- XR SHOULDER 2+V [id number] 08:19:00 [facility] : 1955 Sex: M Name:RADHA MARMOLEJO [facility] : 1955 Age/S: 65 / M [address] Unit #: [id number] Loc: [place] [address] Phys: Mode Duran MD Acct: [id number] Dis Date: Status: REG ER PHONE #: [phone] Exam Date: 12/09/2020814 FAX #: Reason: trauma EXAMS: CPT: [id number] XR SHOULDER 2+[place] [address] Fluoro Time: DAP (Gy m2): Air Kerma [...] PAGE 1 Signed Report Name: RADHA MARMOLEJO [facility] : 1955 Age/S: 65 / M [address] Unit #: [id number] Loc: [place] [address] Phys: Mode Druan MD Acct: [id number] Date: Status: REG ER PHONE #: [phone] Exam Date: 12/09/2020814 FAX #: Reason: trauma EXAMS: CPT: [id number] XR SHOULDER 2+[place] [address] Fluoro Time: DAP (Gy m2): Air Kerma (mGy): (Continued)Technologist: Dominguez Mloina, RT(R)(CT) Trnscb Date/Time: 12/09/2020 (818) t.ALYSAR.PXC Orig Print D/ T: S: 12/09/2020 (0822) PAGE 2 Signed ReportBASIC METABOLIC [id number] 08:11:00* Test Item Value Reference Range Interpretation Comme nts SODIUM (test code = NA) 141 mmol/L 134-147 N POTASSIUM (test code = K) 3.7 mmol/L 3.4-5.0 N CHLORIDE (test code = CL) 112 mmol/L 100-108 H CARBON DIOXIDE (test code = CO2) 22 mmol/L 21-32 N ANION GAP (test code = GAP) 7.0 GAP calc 4.0-15.0 N GLUCOSE (test code = GLU) 93 MG/DL 70-110 N BLOOD UREA NITROGEN (test co de = BUN) 15 MG/DL 7-18 N GLOMERULAR FILTRATION RATE ( test code = GFR) 40 estGFR >60 L CREATININE (test code = CREAT) 1.8 MG/DL 0.8-1.3 H CALCIUM (test code = CA) 8.6 MG/DL 8.5-10.1 N Completed by Nursing: [id number]-[id number] 08:11:00* Test Item Value Reference Range Interpretation Comme nts TROPONIN-I (test code = TROPI) < 0.015 NG/ML 0.000-0.045 N Negative: </= 0. 045 Positive: >/= 0.046 Correlation with serial results, other cardiac markers, and clinical findings is necessary to determine the clinical significance of this result. Quantitative results using different methodologies should not be compared to one another as numerical results may varyby method. Completed by Nursing: NOPROTHROMBIN [id number] 07:54:00* Test Item Value Reference Range Interpretation Comme nts PT PATIENT (test code = PTP) 11.7 SECONDS 9.3-12.9 N INTERNATIONAL NORMAL RATIO (test code = INR) 1.04 INR Unit 0.8-1.2 N THROMBOPLASTIN TIME [id number] 07:54:00* Test Item Value Reference Range Interpretation Comme nts THROMBOPLASTIN TIME PARTIAL (test code = PTT) 33.0 SECONDS 26-35 N - CT HEAD/BRAIN W/O [id number] 07:48:00 [facility] : 1955 Sex: M Name: RADHA MARMOLEJO : 1955 Age/S: 65 / M [address] Unit #: [id number] Loc: [place] [address] Phys: Mode Duran MD Acct: [id number] Dis Date: Status: PRE ER PHONE #: [phone] Exam Date: 12/09/2020 0747 FAX #: Reason: Code Stroke EXAMS: CPT: [id number] CT HEAD/BRAIN W/O CONT 08259 EXAM: - CT HEAD/BRAIN W/O CONT INDICATION: [...] Automated dose management technology is applied to adjustthe radiation dose to minimize exposure while achieving a diagnostic quality image. FINDINGS: Intra-axial and extra-axial structures: No CT evidence of acute territorial infarct, or intracranial hemor rhage seen. No mass effect, midline shift or [...] De Oliveira M.D. PAGE 1 Signed Report (CONTIN UED) Name: RADHA MARMOLEJO : 1955 Age/S: 65 / M [address] Unit #: [id number] Loc: [place] [address] Phys: Mode Duran MD Acct: [id number] Dis Date: Status: PREER PHONE #: [phone] Exam Date: 12/09/2020 0737 FAX #: Reason: Code Stroke EXAMS: CPT: [id number] CT HEAD/BRAIN W/O CONT 46463 (Continued) CC: Mode Duran MD Technologist:Lewis See, RT(R) CTDI: DLP: Trnscb Date/Time: 12/09/2020 (0748) OdilonRCourtneyAH26 Orig Print D/T: S: 12/09/2020 (075) PAGE 2 Signed ReportCBC W/O [id number] 07:47:00* Test Item Value Reference Range Interpretation Comme nts WHITE BLOOD CELL (test code = WBC) [...] pg 28.9-34.4 L MEAN CELL HGB CONCETRATION ( test code = MCHC) 31.9 G/DL 32.1-34.5 L RED CELL DISTRIBUTION WIDTH (test code = RDW) 13.8 SD 11.5-14.5 N PLATELET COUNT (test code = PLT) 246 K/mm3 150-450 N MEAN PLATELET VOLUME (test c ode = MPV) 12.20 fL 7.0-9.6 H Notes Date/Time Note Provider Source 2023-08-02 15:00:00 2FisK1aNiQzYWXEvES+af219fVe1TqDNVzCvEEl+ 2xdVHEq7hCgJsSQ2Fy6VrcS40918-51-20S37:00 :00Addended by: LEWIS MCCARTY on: 08/02/2023 04:02 PMModules accepted: Orders [id number] WkwuypncPI9896-78-25V39:02:16Addendum DocumentTXT1.2.840.478924.1.13.589.2.7.2 .748976|[id number] for patient voby34651-4DdxrMFMPCMLQFJOVakhwifwo C-CDA narrative textUTHEPIThe [facility] #[id number] ZKZQSCZUQZK0635-96-45Z71:02:161.2.840.11 4350.1.72.3.15|1.2.840.909326.1.13.589.2 .7.2.727879_480083739 [facility] 2020-12-13 08:07:00 GFmdkcnpruh04433500Y53M3u0eRwm0hoRLGEpYT 4lT4prwRA8IKugYgiQDlH5pVwyUYMrIK1CL9M0DL gqg4918-99-66N27:07:00 [facility] NoteREPORT#:[id number] REPORT STATUS: SignedDATE:12/13/20 TIME:08 PATIENT: RADHA MARMOLEJO UNIT #: [id number]#: [id number] [address] [birth year] AGE: 65 SEX: M ATTEND: Pj Brooks MDADM AUTHOR: Gamal Rudd MD * ALL edits or amendments must be made on the electronic/computer document * SubjectiveChief Complaint:Adm for frequent falls and weakness. seen today. has no c/o. Objective GeneralVS/I O:Vital Signs: Date Time Temp Pulse Resp B/P B/P Pulse O2 O2 Flow FiO2 Mean Ox Delivery Rate 12/13 0649 97.9 66 17 118/70 85.9 98 Room air 12/13 0352 98.2 68 16 149/81 103.6 99 Room air 12/12 2323 97.9 71 18 162/83 109.5 98 12/12 2153 96 Room air 0 21 12/12 2044 98.2 69 16 164/78 106.9 99 Room air 12/12 1543 98.4 74 14 170/93 118.4 99 Room air 12/12 1105 97.9 69 14 164/89 113.7 100 Room air 12/12 1037 96 Room air 21 24 hour I O ending at 0700: 12/13 0700 12/12 1900 Intake Total 1300.00 750.00 Output Total 500 1520 Balance 800.00 -770.00 Intake, IV 1000.00 750.00 Intake, Oral 300 Output, Urine 500 1520 PATIENT WEIGHT: Weight (lb): Weight (oz): Weight (kg): 65.909 MedicationsActive Meds + DC'd Last 24 HrsHydralazine HCl 25 MG BID PO Amlodipine Besylate 5 MG BID PO Sodium Chloride 1,000 ML .[id number] IV Atorvastatin Calcium 80 MG 1700 PO Aspirin 81 MG DAILY PO Carvedilol 12.5 MG BID@0900,2100 PO Enoxaparin Sodium 30 MG Q12HR SUBQ Acetaminophen 650 MG Q6H PRN PRN PO Albumin Human 3 ML ONCE PRN IV Bisacodyl 10 MG DAILY PRN PRN RECTAL Acetaminophen 650 MG Q6H PRN PRN RECTAL Docusate Sodium 100 MG BID PRN PRN PO Hydralazine HCl 20 MG Q6H PRN PRN IV Nutrition assessment:The data set between the solid lines has been imported from the dietitian's assessment. Any exceptions have been noted under Provider comments. BMI Calculated: 20.3Nutrition related diagnosis: Nutrition diagnosis details: Nutrition problem: Nutrition etiology: Nutrition signs and symptoms: Nutrition prescription: Dietitian name: Assessment completed: Provider comments on imported dietitian assessment: Physical ExamGeneral appearance: alert, awake, orientedHead/eyes: atraumatic, normocephalicENT: moist mucous membranesNeck: full range of motionCardiovascular: normal heart sounds, regular rate and rhythmRespiratory: aerating well, clear to auscultationAbdomen: non-tender, softExtremities: normal inspectionNeuro/NBA PLAYER: alert, oriented X 3, CN II-XII intact, normal speech Diagnosis, Assessment PlanProblem List/A P: 1. Generalized weakness 2. Frequent falls Free Text A P:#TOMMIE on CKD-creatinine is stable at 1.8 today. We will continue to monitor for now.- renal US that revealed echogenic kidneys bilaterally with cysts noted in both kidneys. -Minimal proteinuria of 0.1 g/g noted. this is in keeping with hypertensive nephrosclerosis. #Deconditioning-deemed due to possible cva. PT/OT to evaluate. #Hypertension-improved BP reads, we will continue amlodipine 5 mg twice daily/Coreg/hydralazine. #Falls-Deemed due to possible CVA. MRI brain confirmed small acute thalamic stroke. he also has chronic mscrovascular ischemic changes. we will continue statin and aspirin therapy.fall precautions on board. PT/OT managing. we will review in nephrology clinic after hospital discharge. at 0334 RPT #: [id number] OF REPORT PRProgress Ofya4974-32-94R79:07:00L.JQDT37602287-51 07AVAvailable for patient uxdsAYGTVDAHHPZGMD2909-61-39W95:34:36 [facility] 2020-12-12 11:04:00 [id number]+xUQU6LxoG3mkfpm+eYI KY7cQn040Kqo4snhMEkxFZ1PJ3viqTnsNEFo/3Em ARABIC/8664-20-05W17:04:00 [facility] ([facility])Nephrology Progress NoteREPORT#:[id number] REPORT STATUS: SignedDATE:12/12/20 TIME:1104 PATIENT: RADHA MARMOLEJO UNIT #: [id number]#: [id number] [facility] AGE: 65 SEX: M ATTEND: Pj Brooks [facility] AUTHOR: Ngoc Norman MD * ALL edits or amendments must be made on the electronic/computer document * SubjectiveChief Complaint:-Adm for frequent falls and weakness. seen today. Objective GeneralVS/I O:Vital Signs: Date Time Temp Pulse Resp B/P B/P Pulse O2 O2 Flow FiO2 Mean Ox Delivery Rate 12/12 1037 96 Room air 21 12/12 0721 97.9 67 14 154/83 106.2 99 Room air 12/12 0424 98.4 65 16 122/75 90.9 100 Room air 12/11 2347 98.8 67 16 161/81 107.5 99 Room air 12/11 2300 97.5 63 160/89 118 96 12/11 2200 62 165/91 119 98 12/11 2101 66 153/67 96 96 12/11 2032 97 Room air 12/11 2000 74 184/84 121 98 12/11 1942 66 177/83 119 94 12/11 1900 97.8 73 94 12/11 1652 71 18 161/79 106 97 Room air 12/11 1147 97.3 62 18 152/88 109 98 Room air 24 hour I O ending at 0700: 12/12 0700 12/11 1900 Intake Total Output Total 250 250 Balance -250 -250 Number 1 Bowel Movements Output, Urine 250 250 PATIENT WEIGHT: Weight (lb): Weight (oz): Weight (kg): 65.909 MedicationsActive Meds + DC'd Last 24 HrsAmlodipine Besylate 5 MG BID PO Sodium Chloride 1,000 ML .Q20H IV Atorvastatin Calcium 80 MG 1700 PO Amlodipine Besylate 5 MG DAILY PO (DC) Aspirin 81 MG DAILY PO Carvedilol 12.5 MG BID@0900,2100 PO Enoxaparin Sodium 30 MG Q12HR SUBQ Acetaminophen 650 MG Q6H PRN PRN PO Albumin Human 3 ML ONCE PRN IV Bisacodyl 10 MG DAILY PRN PRN RECTAL Acetaminophen 650 MG Q6H PRN PRN RECTAL Docusate Sodium 100 MG BID PRN PRN PO Hydralazine HCl 20 MG Q6H PRN PRN IV Physical ExamGeneral appearance: chronically ill appearing, alertHead/eyes: atraumatic, normocephalicENT: moist mucous membranesNeck: full range of motionCardiovascular: normal heart sounds, regular rate and rhythmRespiratory: aerating well, clear to auscultationAbdomen: non-tender, softExtremities: normal inspectionNeuro/NBA PLAYER: alert, oriented X 3, CN II-XII intact, normal speech ResultsFindings/Data:Laboratory Tests 12/12 12/11 12/11 0545 1655 1130 Chemistry Sodium (134 - 147 mmol/L) 142 Potassium (3.4 - 5.0 mmol/L) 4.3 Chloride (100 - 108 mmol/L) 113 H Carbon Dioxide (21 - 32 mmol/L) 24 Anion Gap (4.0 - 15.0 GAP calc) 5.0 BUN (7 - 18 MG/DL) 12 Creatinine (0.8 - 1.3 MG/DL) 1.8 H Glomerular Filtr Rate (>60 estGFR) 49 L Glucose (70 - 110 MG/DL) 87 POC Glucose (70 - 110 mg/dL) 220 H 86 Calcium (8.5 - 10.1 MG/DL) 8.8 Diagnosis, Assessment PlanFree Text A P:#TOMMIE on CKD-creatinine marginally worsened to 1.8 We will continue to monitor for now-volume status controlled - renal US that revealed echogenic kidneys bilaterally with cysts noted in both kidneys. -Minimal proteinuria of 0.1 g/g noted #Deconditioning-deemed due to possible cva. PT/OT to evaluate. #Hypertension-slowly improving, continue amlodipine 5 mg twice daily/CoregAdd low-dose hydralazine twice daily #Falls-Deemed due to possible CVA. MRI brain confirmed small acute thalamic stroke. he also has chronic mscrovascular ischemic changes. we will continue statin and aspirin therapy.fall precautions on board. at 1106 RPT #: [id number] OF REPORT PRProgress Sjau6991-51-46E54:04:00L.FUQN34152377-38 71AVAvailable for patient mxwuDCLLPWAYTWRLHD9444-34-99L83:06:41 [facility] 2020-12-12 11:04:00 UFjzfljtivh596039663BeKr4rTHRVBc/rT2/k4Q gGnwuHQYUzQfJxX6AZLz3xFOnT3ByfcdAxZYo3qB r6V5133-23-44Q94:04:00 [facility])Nephrology Progress NoteREPORT#:[id number] REPORT STATUS: SignedDATE:12/12/20 TIME:1104 PATIENT: RADHA MARMOLEJO UNIT #: [id number]#: [id number] [address] [birth year] AGE: 65 SEX: M ATTEND: Pj Brooks [facility] AUTHOR: Ngoc Norman MD * ALL edits or amendments must be made on the electronic/computer document * See AddendumSubjectiveChief Complaint:-Adm for frequent falls and weakness. seen today. Objective GeneralVS/I O:Vital Signs: Date Time Temp Pulse Resp B/P B/P Pulse O2 O2 Flow FiO2 Mean Ox Delivery Rate 12/12 1037 96 Room air 12/12 0721 97.9 67 14 154/83 106.2 99 Room air 12/12 0424 98.4 65 16 122/75 90.9 100 Room air 12/11 2347 98.8 67 16 161/81 107.5 99 Room air 12/11 2300 97.5 63 160/89 118 96 12/11 2200 62 165/91 119 98 12/11 2101 66 153/67 96 96 12/11 2032 97 Room air 12/11 2000 74 184/84 121 98 12/11 1942 66 177/83 119 94 12/11 1900 97.8 73 94 12/11 1652 71 18 161/79 106 97 Room air 12/11 1147 97.3 62 18 152/88 109 98 Room air 24 hour I O ending at 0700: 12/12 0700 12/11 1900 Intake Total Output Total 250 250 Balance -250 -250 Number 1 Bowel Movements Output, Urine 250 250 PATIENT WEIGHT: Weight (lb): Weight (oz): Weight (kg): 65.909 MedicationsActive Meds + DC'd Last 24 HrsAmlodipine Besylate 5 MG BID PO Sodium Chloride 1,000 ML .Q20H IV Atorvastatin Calcium 80 MG 1700 PO Amlodipine Besylate 5 MG DAILY PO (DC) Aspirin 81 MG DAILY PO Carvedilol 12.5 MG BID@0900,2100 PO Enoxaparin Sodium 30 MG Q12HR SUBQ Acetaminophen 650 MG Q6H PRN PRN PO Albumin Human 3 ML ONCE PRN IV Bisacodyl 10 MG DAILY PRN PRN RECTAL Acetaminophen 650 MG Q6H PRN PRN RECTAL Docusate Sodium 100 MG BID PRN PRN PO Hydralazine HCl 20 MG Q6H PRN PRN IV Physical ExamGeneral appearance: chronically ill appearing, alertHead/eyes: atraumatic, normocephalicENT: moist mucous membranesNeck: full range of motionCardiovascular: normal heart sounds, regular rate and rhythmRespiratory: aerating well, clear to auscultationAbdomen: non-tender, softExtremities: normal inspectionNeuro/NBA PLAYER: alert, oriented X 3, CN II-XII intact, normal speech ResultsFindings/Data:Laboratory Tests 12/12 12/11 12/11 0545 1655 1130 Chemistry Sodium (134 - 147 mmol/L) 142 Potassium (3.4 - 5.0 mmol/L) 4.3 Chloride (100 - 108 mmol/L) 113 H Carbon Dioxide (21 - 32 mmol/L) 24 Anion Gap (4.0 - 15.0 GAP calc) 5.0 BUN (7 - 18 MG/DL) 12 Creatinine (0.8 - 1.3 MG/DL) 1.8 H Glomerular Filtr Rate (>60 estGFR) 49 L Glucose (70 - 110 MG/DL) 87 POC Glucose (70 - 110 mg/dL) 220 H 86 Calcium (8.5 - 10.1 MG/DL) 8.8 Diagnosis, Assessment PlanFree Text A P:#TOMMIE on CKD-creatinine marginally worsened to 1.8 We will continue to monitor for now-volume status controlled - renal US that revealed echogenic kidneys bilaterally with cysts noted in both kidneys. -Minimal proteinuria of 0.1 g/g noted #Deconditioning-deemed due to possible cva. PT/OT to evaluate. #Hypertension-slowly improving, continue amlodipine 5 mg twice daily/CoregAdd low-dose hydralazine twice daily #Falls-Deemed due to possible CVA. MRI brain confirmed small acute thalamic stroke. he also has chronic mscrovascular ischemic changes. we will continue statin and aspirin therapy.fall precautions on board. at 1106 Addendum 1: 12/12/20 1121 by Ngoc Norman MD increase IVF to 75cc/hr at 1121 RPT #: [id number] OF REPORT PRProgress Qlyt4808-52-77B74:04:00L.[id number] 71AVAvailable for patient bhkkKFRMWQUKAMVFPM8329-12-26H13:21:52 [facility] 2020-12-12 10:06:00 QCzwltaekvo72535747vhJQqyLQOaoj9jnXsPM3I kqXTHUrdsFIK4GNpqeKOW60xcbMZfgvosbQSf42N xfg9300-51-08D17:06:00 [facility] ([facility])Hospitalist Progress NoteREPORT#:[id number] REPORT STATUS: SignedDATE:12/12/20 TIME:1006 PATIENT: RADHA MARMOLEJO UNIT #: [id number]#: [id number] [address] [birth year] AGE: 65 SEX: M ATTEND: Pj Brooks AUTHOR: Pj Brooks MD * ALL edits or amendments must be made on the electronic/computer document * SubjectiveChief Complaint:No acute eventsDenies any chest pain or shortness of breath Objective GeneralVS/I O:Vital Signs: Date Time Temp Pulse Resp B/P B/P Pulse O2 O2 Flow FiO2 Mean Ox Delivery Rate 12/12 1105 97.9 69 14 164/89 113.7 100 Room air 12/12 1037 96 Room air 21 12/12 0721 97.9 67 14 154/83 106.2 99 Room air 12/12 0424 98.4 65 16 122/75 90.9 100 Room air 12/11 2347 98.8 67 16 161/81 107.5 99 Room air 12/11 2300 97.5 63 160/89 118 96 12/11 2200 62 165/91 119 98 12/11 2101 66 153/67 96 96 12/11 2031 97 Room air 12/11 2000 74 184/84 121 98 12/11 1942 66 177/83 119 94 12/11 1900 97.8 73 94 12/11 1652 71 18 161/79 106 97 Room air 24 hour I O ending at 0700: 12/12 0700 12/11 1900 Intake Total Output Total 250 250 Balance -250 -250 Number 1 Bowel Movements Output, Urine 250 250 PATIENT WEIGHT: Weight (lb): Weight (oz): Weight (kg): 65.909 Medications:Active Meds + DC'd Last 24 HrsHydralazine HCl 25 MG BID PO Amlodipine Besylate 5 MG BID PO Sodium Chloride 1,000 ML .[id number] IV Atorvastatin Calcium 80 MG 1700 PO Aspirin 81 MG DAILY PO Carvedilol 12.5 MG BID@0900,2100 PO Enoxaparin Sodium 30 MG Q12HR SUBQ Acetaminophen 650 MG Q6H PRN PRN PO Albumin Human 3 ML ONCE PRN IV Bisacodyl 10 MG DAILY PRN PRN RECTAL Acetaminophen 650 MG Q6H PRN PRN RECTAL Docusate Sodium 100 MG BID PRN PRN PO Hydralazine HCl 20 MG Q6H PRN PRN IV Physical ExamGeneral appearance: alert, awakeHead/Eyes: atraumatic, normocephalicENT: dry mucosal membraneNeck: supple/no meningismusCardiovascular: normal heart sounds, regular rate rhythmRespiratory: aerating well, clear to auscultationAbdomen: soft, no distentionGenitourinary: no bladder distentionExtremities: moves all, no edemaMusculoskeletal: normal inspectionNeuro/NBA PLAYER: alert, oriented X 3Skin: dry, no rashLymphatics: no lymphadenopathyPsychiatry: anxious ResultsFindings/Data:Laboratory Tests 12/12/20 0545:[Embedded Image Not Available] 12/11/20 0451:[Embedded Image Not Available]Laboratory Tests 12/12 12/11 0545 1655 Chemistry Sodium (134 - 147 mmol/L) 142 Potassium (3.4 - 5.0 mmol/L) 4.3 Chloride (100 - 108 mmol/L) 113 H Carbon Dioxide (21 - 32 mmol/L) 24 Anion Gap (4.0 - 15.0 GAP calc) 5.0 BUN (7 - 18 MG/DL) 12 Creatinine (0.8 - 1.3 MG/DL) 1.8 H Glomerular Filtr Rate (>60 estGFR) 49 L Glucose (70 - 110 MG/DL) 87 POC Glucose (70 - 110 mg/dL) 220 H Calcium (8.5 - 10.1 MG/DL) 8.8 Diagnosis, Assessment PlanProblem List/A P: 1. Frequent falls 2. Generalized weakness Free Text DxA P NotesFree text DxA P notes:Subacute lacunar infarct in right thalamus related to small vessel diseaseGait ataxiaAcute kidney injuryPolysubstance abuseSmokerAccelerated hypertensionHistory of COPDHistory of chronic infarctsFrequent fallsHistory of cocaine abuse PlanMonitor under telemetryMonitor neuro vital signsGet a PT OT evaluationWe will get an MRI to rule out any CVANeurology consultMonitor renal parametersStart on IV fluidsContinue home medications and titrate as neededAdvise smoking cessationAdvised stop using cocaineGI/DVT prophylaxisAdvanced directive full code for now 12/10/2020ubacute lacunar infarct in right thalamus related to small vessel diseaseGait ataxiaAcute kidney injuryPolysubstance abuseSmokerAccelerated hypertensionHistory of COPDHistory of chronic infarct PlanAspirin statinAppreciate help from neurologyStroke work-upPT OT ST evaluationEchocardiogram and carotid DopplersAdvised smoking cessationAdvised substance abuse cessationAntihypertensives titratedAdvised about medication compliance 1Participating in physical therapyMonitor closely under telemetryAppreciate help from neurologyRenal parameters monitoredAppreciate help from nephrologyCarotid Doppler showing no significant carotid artery stenosisAwaiting echocardiogramContinue aspirin statinCase management consult for home PT and home healthDiscussed with patient regarding placement to rehab but patient want to go home with home health 12/12/2020Monitor telemetryAntihypertensives titratedAppreciate help from neurologyPT OT evaluation patientCase management consult for home healthPossible DC in a.m. with home health and home PT at 1152 RPT #: [id number] OF REPORT PRProgress [id number]:06:00L.[id number] [id number] for patient [id number]:52:32 [facility] 2020-12-11 15:19:00 [id number] NGPcm8oGEESAFFie+CLzDyQrinrv7NW6iqgMQH3j [id number]:19:181436-6823 [facility] [address] [place] [address] PATIENT NAME: RADHA MARMOLEJO ADMIT DATE: 12/09/20ACCOUNT NO: [id number] ROOM NO: [place] [address] AGE: 65 REPORT TYPE: eECHOCARDIOGRAM REPORT SEX: M ADMITTING PHYSICIAN: Pj Brooks MD ATTENDING PHYSICIAN: Pj Brooks MD *[facility]*[address] [place] [id number] Transthoracic Echocardiogram Patient: Radha MarmolejoStudy Date: 12/10/2020 BP: 155 / 86 [id number] 1955 Age: 65 Height: 70.9 in / 180 cmAccession#: [id number] Gender: M Weight: 144.7 lb / 65.8 kgBMI/BSA: 20.3 kg/m 2 / 1.84 m 2 *Ordering Physician: * Pj Brooks *Interpreting Physician: * Papo Toney MD*Platinum Smith: * Monique Lott Indicati ons: CVA. Study data: Transthoracic echocardiogram. Procedure: Transthoracicechocardiography was performed. Images were obtained using a Stylr cardiacultrasound machine. Image quality was adequate. Complete 2D, completespectral Doppler, and color Doppler. Location: Bedside. Patientstatus: Inpatient. Patient room number: MSO 7. Study status: Routine. Findings Left ventricle: The cavity size is normal. Wall thickness is mildlyincreased. Systolic function is mildly reduced. The estimated ejectionfraction is 45-49%. Doppler parameters are consistent with abnormal leftventricular relaxation (grade 1 diastolic dysfunction).Right ventricle: The cavity size is normal. Systolic function isnormal. PATIENT NAME: RADHA MARMOLEJO Left atrium: The atrium is normal in size.Right atrium: The atrium is normal in size.Aorta: The aortic root is not dilated.Aortic valve: The valve is trileaflet. There is no evidence ofstenosis.Mitral valve: The valve is structurally normal. There is mildregurgitation.Tricuspid valve: The valve is structurally normal. There is mildregurgitation.Pulmonic valve: Not well visualized.Pericardium: There is no pericardial effusion.Systemic veins:Inferior vena cava: The vessel is normal in size. Measurem ents Left ventricle Value Ref BRANDON, LAX 3.7 cm 4.2 - 5.8 ESD, LAX 2.9 cm 2.5 - 4.0 ESD/bsa, LAX 1.6 cm/m 2 1.3 - 2.1 FS, LAX 22 % 25 - 43 PW, ED 1.1 cm 0.6 - 1.0 IVS/PW, ED 1.08 --------- EF 45 % 52 - 72 BRANDON, MM 4.2 cm 4.2 - 5.8 ESD, MM 3.2 cm 2.5 - 4.0 FS, MM 24 % 25 - 43 PW, ED MM 1.0 cm 0.6 - 1.0 PW, ES MM 1.3 cm --------- PW/ID ratio, ED MM 0.24 --------- Mass/ht, MM 79 g/m 52 - 126 Mass/ht 2.7, MM 29 g/m 2.7 --------- EF, SMM Teich. 48 % >=55 E/e', avg, TDI 10 <=14 LVOT Value Ref Diam, S 1.85 cm --------- Area 2.7 cm 2 --------- Ventricular septum Value Ref IVS, ED 1.2 cm 0.6 - 1.0 IVS, ED MM 1.1 cm 0.6 - 1.0 IVS, ES MM 1.2 cm --------- Right ventricle Value Ref BRANDON, LAX 2.2 cm --------- RVOT Value Ref Peak v, S 0.57 m/sec --------- Peak grad, S 1 mm Hg --------- Left atrium Value Ref Vol/bsa, ES, 1-p A4C 15 ml/m 2 12 - 37 PATIENT NAME: RADHA MARMOLEJO Vol/bsa, ES, A/L 17 ml/m 2 16 - 34 AP dim, ES MM 3.7 cm 3.0 - 4.0 LA/Ao root ratio, MM 1.25 --------- Aortic valve Value Ref Leaflet sep, MM 1.54 cm --------- Mitral valve Value Ref Peak E 0.47 m/sec --------- Peak A 0.69 m/sec --------- Decel time 277 ms --------- Peak E/A ratio 0.68 --------- MR peak v 5.25 m/sec --------- Tricuspid valve Value Ref TR peak v 2.29 m/sec <=2.8 Peak RV-RA grad, S 21 mm Hg --------- Aortic root Value Ref Root diam, ED MM 2.98 cm --------- Conclusi ons Summary: Left ventricle: The cavity size is normal. Wall thickness ismildly increased. Systolic function is mildly reduced. The estimatedejection fraction is 45-49%. Doppler parameters are consistent withabnormal left ventricular relaxation (grade 1 diastolic dysfunction). Prepared and electronically signed by Papo Toney MD12/11/2020 15:19 at 1519 PATIENT NAME: RADHA MARMOLEJO 3T15:19:00L.[id number] for patient jklbBTMUJPITOZLSZB9517-83-42U76:20:04 [facility] 2020-12-11 11:24:00 [id number]/Uy8SE8DiXjVWvhtSr VCgZMSlW41BZ+rpXOIaWGvwSw7RkyRLglF8ip+Pu 4zg0963-25-78D65:24:00 [facility] Progress NoteREPORT#:[id number] REPORT STATUS: SignedDATE:12/11/20 TIME:1124 PATIENT: RADHA MARMOLEJO UNIT #: [id number]#: [id number] ROOM/BED: NeidaD438-4AQD: 53 AGE: 65 SEX: M ATTEND: Pj Brooks [facility] AUTHOR: Ngoc Norman MD * ALL edits or amendments must be made on the electronic/computer document * SubjectiveChief Complaint:-Adm for frequent falls and weakness. seen today. no new issues feels better. Objective GeneralVS/I O:Vital Signs: Date Time Temp Pulse Resp B/P B/P Pulse O2 O2 Flow FiO2 Mean Ox Delivery Rate 12/11 0844 97.6 70 16 166/80 108 98 Room air 12/11 0758 98 Room air 12/11 0455 97.1 66 18 148/82 104 98 Room air 12/11 0051 97.4 63 18 142/76 98 98 Room air 12/10 2046 97.8 70 18 151/81 104 97 Room air 12/10 2030 99 Room air 12/10 1604 97.8 64 20 119/98 105 96 Room air 12/10 1200 97.5 66 20 168/82 110 98 Room air 24 hour I O ending at 0700: 12/11 0700 12/10 1900 Intake Total 60 350 Output Total 400 Balance -340 350 Intake, Oral 60 350 Output, Urine 400 PATIENT WEIGHT: Weight (lb): Weight (oz): Weight (kg): 65.909 MedicationsActive Meds + DC'd Last 24 HrsAtorvastatin Calcium 80 MG 1700 PO Amlodipine Besylate 5 MG DAILY PO Aspirin 81 MG DAILY PO Carvedilol 12.5 MG BID@0900,2100 PO Enoxaparin Sodium 30 MG Q12HR SUBQ Acetaminophen 650 MG Q6H PRN PRN PO Albumin Human 3 ML ONCE PRN IV Bisacodyl 10 MG DAILY PRN PRN RECTAL Acetaminophen 650 MG Q6H PRN PRN PO (DC) Acetaminophen 650 MG Q6H PRN PRN RECTAL Bisacodyl 10 MG DAILY PRN PRN RECTAL (DC) Docusate Sodium 100 MG BID PRN PRN PO Hydralazine HCl 20 MG Q6H PRN PRN IV Nutrition assessment:The data set between the solid lines has been imported from the dietitian's assessment. Any exceptions have been noted under Provider comments. BMI Calculated: 20.3Nutrition related diagnosis: Nutrition diagnosis details: Nutrition problem: Nutrition etiology: Nutrition signs and symptoms: Nutrition prescription: Dietitian name: Assessment completed: Provider comments on imported dietitian assessment: Physical ExamGeneral appearance: chronically ill appearing, alert, awakeHead/eyes: atraumatic, normocephalicENT: moist mucous membranesNeck: full range of motionCardiovascular: normal heart sounds, regular rate and rhythmRespiratory: aerating well, clear to auscultationAbdomen: non-tender, softExtremities: normal inspectionNeuro/NBA PLAYER: alert, oriented X 3, CN II-XII intact, normal speech ResultsFindings/Data:Laboratory Tests 12/11 12/11 12/10 0802 0451 2013 Chemistry Sodium (134 - 147 mmol/L) 141 Potassium (3.4 - 5.0 mmol/L) 3.8 Chloride (100 - 108 mmol/L) 112 H Carbon Dioxide (21 - 32 mmol/L) 23 Anion Gap (4.0 - 15.0 GAP calc) 6.0 BUN (7 - 18 MG/DL) 13 Creatinine (0.8 - 1.3 MG/DL) 1.7 H Glomerular Filtr Rate (>60 estGFR) 52 L Glucose (70 - 110 MG/DL) 83 POC Glucose (70 - 110 mg/dL) 86 119 H Calcium (8.5 - 10.1 MG/DL) 8.6 Diagnosis, Assessment PlanFree Text A P:#TOMMIE vs CKD-cr remsin stable at 1.7-volume status controlled - renal US that revealed echogenic kidneys bilaterally with cysts noted in both kidneys. -follow pending proteinuria workup #Deconditioning-deemed due to possible cva. PT/OT to evaluate. #Hypertension-uncontrolled, increase norvasc to 5 bid , c/w coreg #Falls-Deemed due to possible CVA. MRI brain confirmed small acute thalamic stroke. he also has chronic mscrovascular ischemic changes. we will continue statin and aspirin therapy.fall precautions on board. at 1107 RPT #: [id number] OF REPORT PRProgress [id number]:24:00L.[id number] 79AVAvailable for patient vznwOGLZCXEOKXCFJT4580-25-22M24:08:11 [facility] 2020-12-11 10:09:00 [id number]/V x1d9NysZfu8EZRpuxivHrXsg3yeyjYlef/15Lj9/ 0iU4330-06-59H38:09:00 [facility] ([facility])Hospitalist Progress NoteREPORT#:[id number] REPORT STATUS: SignedDATE:12/11/20 TIME:1009 PATIENT: RADHA MARMOLEJO UNIT #: [id number]#: [id number] [address]: [address] AGE: 65 SEX: M ATTEND: Pj Brooks AUTHOR: Pj Brooks MD * ALL edits or amendments must be made on the electronic/computer document * SubjectiveChief Complaint:No acute eventsParticipating in physical therapy Objective GeneralVS/I O:Vital Signs: Date Time Temp Pulse Resp B/P B/P Pulse O2 O2 Flow FiO2 Mean Ox Delivery Rate 12/11 0744 97.6 70 16 166/80 108 98 Room air 12/11 0758 98 Room air 12/11 0455 97.1 66 18 148/82 104 98 Room air 12/11 0051 97.4 63 18 142/76 98 98 Room air 12/10 2046 97.8 70 18 151/81 104 97 Room air 12/10 2030 99 Room air 12/10 1604 97.8 64 20 119/98 105 96 Room air 12/10 1200 97.5 66 20 168/82 110 98 Room air 24 hour I O ending at 0700: 12/11 0700 12/10 1900 Intake Total 60 350 Output Total 400 Balance -340 350 Intake, Oral 60 350 Output, Urine 400 PATIENT WEIGHT: Weight (lb): Weight (oz): Weight (kg): 65.909 Medications:Active Meds + DC'd Last 24 HrsAtorvastatin Calcium 80 MG 1700 PO Amlodipine Besylate 5 MG DAILY PO Aspirin 81 MG DAILY PO Carvedilol 12.5 MG BID@0900,2100 PO Enoxaparin Sodium 30 MG Q12HR SUBQ Acetaminophen 650 MG Q6H PRN PRN PO Albumin Human 3 ML ONCE PRN IV Bisacodyl 10 MG DAILY PRN PRN RECTAL Acetaminophen 650 MG Q6H PRN PRN PO (DC) Acetaminophen 650 MG Q6H PRN PRN RECTAL Bisacodyl 10 MG DAILY PRN PRN RECTAL (DC) Docusate Sodium 100 MG BID PRN PRN PO Hydralazine HCl 20 MG Q6H PRN PRN IV Physical ExamGeneral appearance: alert, awakeHead/Eyes: atraumatic, normocephalicENT: dry mucosal membraneNeck: supple/no meningismusCardiovascular: normal heart sounds, regular rate rhythmRespiratory: aerating well, clear to auscultationAbdomen: soft, no distentionGenitourinary: no bladder distentionExtremities: moves all, no edemaMusculoskeletal: normal inspectionNeuro/NBA PLAYER: alert, oriented X 3Skin: dry, no rashLymphatics: no lymphadenopathyPsychiatry: anxious ResultsFindings/Data:Laboratory Tests 12/11 12/11 12/10 12/10 12/10 08 0451 2013 1050 1050 Chemistry Sodium (134 - 147 mmol/L) 141 141 Potassium (3.4 - 5.0 mmol/L) 3.8 4.0 Chloride (100 - 108 mmol/L) 112 H 112 H Carbon Dioxide (21 - 32 mmol/L) 23 24 Anion Gap (4.0 - 15.0 GAP calc) 6.0 5.0 BUN (7 - 18 MG/DL) 13 12 Creatinine (0.8 - 1.3 MG/DL) 1.7 H 1.7 H Glomerular Filtr Rate (>60 estGFR) 52 L 52 L Glucose (70 - 110 MG/DL) 83 97 POC Glucose (70 - 110 mg/dL) 86 119 H Hemoglobin A1c (0.0 - 5.7 % A1C) 5.8 H Estim Average Glucose (MG/DLest) 120 Calcium (8.5 - 10.1 MG/DL) 8.6 8.9 Total Bilirubin (0.2 - 1.2 MG/DL) 0.60 AST (15 - 37 Unit/L) 15 ALT (12 - 78 Unit/L) 18 Total Alk Phosphatase (50 - 136 Unit/L) 115 Total Protein (6.4 - 8.2 G/DL) 6.8 Albumin (3.4 - 5.0 G/DL) 3.3 L Globulin (GM/dL) 3.5 Albumin/Globulin Ratio (1.2 - 2.2 RATIO) 0.9 L Triglycerides (0 - 150 MG/DL) 55 Cholesterol (133 - 200 MG/DL) 102 L LDL Cholesterol Measurd (0 - 129 MG/DL) 44 Non-HDL Cholesterol (<130 mg/dL) 53 HDL Cholesterol (40 - 59 MG/DL) 49 LDL/HDL Ratio (1.48 - 3.22 Avg Ratio) 0.89 L Cholesterol/HDL Ratio (0 RATIO) 2.08 Laboratory Tests 12/10 1050 Hematology WBC (3.5 - 11.0 K/mm3) 6.8 RBC (4.70 - 6.10 M/mm3) 5.02 Hgb (12.3 - 15.9 G/DL) 14.2 Hct (35.8 - 46.7 %) 44.5 MCV (86.3 - 98.9 Fl) 88.6 MCH (28.9 - 34.4 pg) 28.3 L MCHC (32.1 - 34.5 G/DL) 31.9 L RDW (11.5 - 14.5 SD) 13.7 Plt Count (150 - 450 K/mm3) 243 MPV (7.0 - 9.6 fL) 12.50 H Neut % (Auto) (40 - 76 %) 56.0 Lymph % (Auto) (20.5 - 51.1 %) 28.4 Hanson % (Auto) (1.7 - 9.3 %) 10.4 H Eos % (Auto) (0.0 - 6.0 %) 3.8 Baso % (Auto) (0.0 - 2.0 %) 1.3 Neut # (Auto) (1.8 - 7.6 K/mm3) 3.8 Lymph # (Auto) (0.6 - 3.0 K/mm3) 1.9 Hanson # (Auto) (0.2 - 1.5 K/mm3) 0.7 Eos # (Auto) (0.0 - 0.4 K/mm3) 0.3 Baso # (Auto) (0.0 - 0.2 K/mm3) 0.1 Abs Immat Gran (auto) (0.00 - 0.03 x10 3/uL) 0.01 Add Manual Diff (CRITERIA DIFF/SCN) NO Immature Gran % (0.0 - 5.0 %) 0.1 Nucleated RBC % (0.0 - 1.0 /100WBC%) 0.0 Radiology data:Recent Impressions:ULTRASOUND - DUP EXTRACRANIAL LAINEY 12/10 1343 Report Impression - Status: SIGNED Entered: 12/10/2020 1433 IMPRESSION:1. No hemodynamically significant stenosis demonstrated. 2. Mild scattered plaque in both common carotid arteries and carotidbulbs.Impression By: Vivien Wilson M.D.CAT SCAN - CT HEAD/BRAIN W/O CONT 12/10 1835 Report Impression - Status: SIGNED Entered: 12/10/2020 1849 IMPRESSION:No acute intracranial hemorrhage is identified.Evolving subacute lacunar infarct in the right thalamus.Moderate chronic microvascular ischemic changes and diffuse cerebralvolume loss.Chronic lacunar infarct in the right black radiata. LOCATION: B2 This CT exam was performed according to our departmental doseoptimization program, which includes automated exposure control,adjustment of the mA and or kV according to patient size and/or use ofiterative reconstruction technique.Impression By: Michelle Nielsen M.D. Diagnosis, Assessment PlanProblem List/A P: 1. Frequent falls 2. Generalized weakness Free Text DxA P NotesFree text DxA P notes:Frequent fallsAccelerated hypertension history of CVASmokerHistory of cocaine abuseAcute kidney injury PlanMonitor under telemetryMonitor neuro vital signsGet a PT OT evaluationWe will get an MRI to rule out any CVANeurology consultMonitor renal parametersStart on IV fluidsContinue home medications and titrate as neededAdvise smoking cessationAdvised stop using cocaineGI/DVT prophylaxisAdvanced directive full code for now 1Subacute lacunar infarct in right thalamus related to small vessel diseaseGait ataxiaAcute kidney injuryPolysubstance abuseSmokerAccelerated hypertensionHistory of COPDHistory of chronic infarct PlanAspirin statinAppreciate help from neurologyStroke work-upPT OT ST evaluationEchocardiogram and carotid DopplersAdvised smoking cessationAdvised substance abuse cessationAntihypertensives titratedAdvised about medication compliance 1Participating in physical therapyMonitor closely under telemetryAppreciate help from neurologyRenal parameters monitoredAppreciate help from nephrologyCarotid Doppler showing no significant carotid artery stenosisAwaiting echocardiogramContinue aspirin statinCase management consult for home PT and home healthDiscussed with patient regarding placement to rehab but patient want to go home with home health at [address] [place] [address] #: [id number] OF REPORT PRProgress [id number]:09:00L.[id number] 45AVAvailable for patient qobeAAXLOUEZPQRZUK2548-94-86G27:16:21 [facility] 2020-12-10 08:47:00 [id number]/IzTikgUFgCGJSTZ gz/qo9rm7/1wW1IeRwjZdFfXddy9N9cr9HU55KgT K7H9921-44-44O87:47:00 [facility] CenterHospital[facility] Progress NoteREPORT#:[id number] REPORT STATUS: SignedDATE:12/10/20 TIME:0847 PATIENT: RADHA MARMOLEJO UNIT #: [id number]#: [id number] ROOM/BED: NeidaRGG36-8LNS: 53 AGE: 65 SEX: M ATTEND: Pj Brooks MDADM AUTHOR: Pj Brooks MD * ALL edits or amendments must be made on the electronic/computer document * SubjectiveChief Complaint:No acute events Objective GeneralVS/I O:Vital Signs: Date Time Temp Pulse Resp B/P B/P Pulse O2 O2 Flow FiO2 Mean Ox Delivery Rate 12/10 1200 97.5 66 20 168/82 110 98 Room air 12/10 0800 97.8 73 19 105/86 92 96 Room air 12/10 0400 97.1 70 16 155/86 109 97 12/10 0301 74 169/84 119 97 12/09 2323 98.5 12/09 2323 74 166/85 117 94 12/09 2005 98.5 78 18 166/97 120 97 12/09 1800 98.2 91 22 176/99 124 98 Room air 12/09 1525 74 20 179/95 123 98 12/09 1330 79 20 189/92 124 97 24 hour I O ending at 0700: 12/10 0700 12/09 1900 Intake Total Output Total 400 700 Balance -400 -700 Output, Urine 400 700 Patient 145 lb Weight Weight Standing scale Measurement Method PATIENT WEIGHT: Weight (lb): Weight (oz): Weight (kg): 65.909 Medications:Active Meds + DC'd Last 24 HrsAtorvastatin Calcium 80 MG 1700 PO Amlodipine Besylate 5 MG DAILY PO Aspirin 81 MG DAILY PO Carvedilol 12.5 MG BID@0900,2100 PO Enoxaparin Sodium 30 MG Q12HR SUBQ Acetaminophen 650 MG Q6H PRN PRN PO Albumin Human 3 ML ONCE PRN IV Bisacodyl 10 MG DAILY PRN PRN RECTAL Acetaminophen 650 MG Q6H PRN PRN PO Acetaminophen 650 MG Q6H PRN PRN RECTAL Bisacodyl 10 MG DAILY PRN PRN RECTAL Docusate Sodium 100 MG BID PRN PRN PO Hydralazine HCl 20 MG Q6H PRN PRN IV Physical ExamGeneral appearance: alert, awakeHead/Eyes: atraumatic, normocephalicENT: dry mucosal membraneNeck: supple/no meningismusCardiovascular: normal heart sounds, regular rate rhythmRespiratory: aerating well, clear to auscultationAbdomen: soft, no distentionGenitourinary: no bladder distentionExtremities: moves all, no edemaMusculoskeletal: normal inspectionNeuro/NBA PLAYER: alert, oriented X 3Skin: dry, no rashLymphatics: no lymphadenopathyPsychiatry: anxious ResultsFindings/Data:Laboratory Tests 12/10 12/10 1050 1050 Chemistry Sodium (134 - 147 mmol/L) 141 Potassium (3.4 - 5.0 mmol/L) 4.0 Chloride (100 - 108 mmol/L) 112 H Carbon Dioxide (21 - 32 mmol/L) 24 Anion Gap (4.0 - 15.0 GAP calc) 5.0 BUN (7 - 18 MG/DL) 12 Creatinine (0.8 - 1.3 MG/DL) 1.7 H Glomerular Filtr Rate (>60 estGFR) 52 L Glucose (70 - 110 MG/DL) 97 Hemoglobin A1c (0.0 - 5.7 % A1C) 5.8 H Estim Average Glucose (MG/DLest) 120 Calcium (8.5 - 10.1 MG/DL) 8.9 Total Bilirubin (0.2 - 1.2 MG/DL) 0.60 AST (15 - 37 Unit/L) 15 ALT (12 - 78 Unit/L) 18 Total Alk Phosphatase (50 - 136 Unit/L) 115 Total Protein (6.4 - 8.2 G/DL) 6.8 Albumin (3.4 - 5.0 G/DL) 3.3 L Globulin (GM/dL) 3.5 Albumin/Globulin Ratio (1.2 - 2.2 RATIO) 0.9 L Triglycerides (0 - 150 MG/DL) 55 Cholesterol (133 - 200 MG/DL) 102 L LDL Cholesterol Measurd (0 - 129 MG/DL) 44 Non-HDL Cholesterol (<130 mg/dL) 53 HDL Cholesterol (40 - 59 MG/DL) 49 LDL/HDL Ratio (1.48 - 3.22 Avg Ratio) 0.89 L Cholesterol/HDL Ratio (0 RATIO) 2.08 Laboratory Tests 12/10 1050 Hematology WBC (3.5 - 11.0 K/mm3) 6.8 RBC (4.70 - 6.10 M/mm3) 5.02 Hgb (12.3 - 15.9 G/DL) 14.2 Hct (35.8 - 46.7 %) 44.5 MCV (86.3 - 98.9 Fl) 88.6 MCH (28.9 - 34.4 pg) 28.3 L MCHC (32.1 - 34.5 G/DL) 31.9 L RDW (11.5 - 14.5 SD) 13.7 Plt Count (150 - 450 K/mm3) 243 MPV (7.0 - 9.6 fL) 12.50 H Neut % (Auto) (40 - 76 %) 56.0 Lymph % (Auto) (20.5 - 51.1 %) 28.4 Hanson % (Auto) (1.7 - 9.3 %) 10.4 H Eos % (Auto) (0.0 - 6.0 %) 3.8 Baso % (Auto) (0.0 - 2.0 %) 1.3 Neut # (Auto) (1.8 - 7.6 K/mm3) 3.8 Lymph # (Auto) (0.6 - 3.0 K/mm3) 1.9 Hanson # (Auto) (0.2 - 1.5 K/mm3) 0.7 Eos # (Auto) (0.0 - 0.4 K/mm3) 0.3 Baso # (Auto) (0.0 - 0.2 K/mm3) 0.1 Abs Immat Gran (auto) (0.00 - 0.03 x10 3/uL) 0.01 Add Manual Diff (CRITERIA DIFF/SCN) NO Immature Gran % (0.0 - 5.0 %) 0.1 Nucleated RBC % (0.0 - 1.0 /100WBC%) 0.0 Laboratory Tests 12/09 1705 Serology SARS CoV-2 RNA Rapid NICOLE (Negative) Negative Radiology data:Recent Impressions:ULTRASOUND - US RETRO LTD 12/09 1444 Report Impression - Status: SIGNED Entered: 12/09/2020 1514 IMPRESSION:1. Hyperechoic kidneys.2. Simple cyst right kidney, multiple cysts versus severehydronephrosis left kidney.Impression By: Vivien Wilson M.D.[facility] IMAG[facility] - MRI BRAIN W/O CONTRAST 12/09 1605 Report Impression - Status: SIGNED Entered: 12/09/2020 1702 IMPRESSION:Small early subacute lacunar infarct in the right thalamus.Moderate chronic microvascular ischemic changes and diffuse cerebralvolume loss. LOCATION: A 1Impression By: Michelle Nielsen M.D. Diagnosis, Assessment PlanProblem List/A P: 1. Frequent falls 2. Generalized weakness Free Text DxA P NotesFree text DxA P notes:Frequent fallsAccelerated hypertension history of CVASmokerHistory of cocaine abuseAcute kidney injury PlanMonitor under telemetryMonitor neuro vital signsGet a PT OT evaluationWe will get an MRI to rule out any CVANeurology consultMonitor renal parametersStart on IV fluidsContinue home medications and titrate as neededAdvise smoking cessationAdvised stop using cocaineGI/DVT prophylaxisAdvanced directive full code for now 12/10/2020ubacute lacunar infarct in right thalamus related to small vessel diseaseGait ataxiaAcute kidney injuryPolysubstance abuseSmokerAccelerated hypertensionHistory of COPDHistory of chronic infarct PlanAspirin statinAppreciate help from neurologyStroke work-upPT OT ST evaluationEchocardiogram and carotid DopplersAdvised smoking cessationAdvised substance abuse cessationAntihypertensives titratedAdvised about medication compliance at 1303 RPT #: [id number] OF REPORT PRProgress [id number]:47:00L.[id number] 16AVAvailable for patient yeetWOXJPTPOKNBISG6148-12-00I79:03:52 [facility] 2020-12-10 07:25:00 [id number]+LoP/niwfTphakIgtoDx+ YRlE83vO8snHSC4vgBftnT+qsv5R3Fn2VjqHzJj/ 9ZB5971-06-27V67:25:00 [facility] ([facility])Nephrology Progress NoteREPORT#:[id number] REPORT STATUS: SignedDATE:12/10/20 TIME:07 PATIENT: RADHA MARMOLEJO UNIT #: [id number]#: [id number] ROOM/BED: NeidaACT79-9FFK: 53 AGE: 65 SEX: M ATTEND: Pj Brooks [facility] AUTHOR: Gamal Rudd MD * ALL edits or amendments must be made on the electronic/computer document * SubjectiveChief Complaint:frequent falls and weakness. seen today.feels better. Objective GeneralVS/I O:Vital Signs: Date Time Temp Pulse Resp B/P B/P Pulse O2 O2 Flow FiO2 Mean Ox Delivery Rate 12/10 399 97.1 70 16 155/86 109 97 12/10 030 74 169/84 119 97 12/09 2322 98.5 12/09 2322 74 166/85 117 94 12/09 2005 98.5 78 18 166/97 120 97 12/09 1800 98.2 91 22 176/99 124 98 Room air 12/09 1525 74 20 179/95 123 98 12/09 1330 79 20 189/92 124 97 12/09 1230 98.0 79 18 184/95 124 99 12/09 1030 98.4 76 20 180/82 114 98 12/09 0930 77 20 162/81 108 98 12/09 0830 76 18 175/82 113 98 12/09 0759 99 24 hour I O ending at 0700: 12/10 0700 12/09 1900 Intake Total Output Total 400 700 Balance -400 -700 Output, Urine 400 700 Patient 65.909 kg Weight Weight Standing scale Measurement Method PATIENT WEIGHT: Weight (lb): Weight (oz): Weight (kg): 65.909 MedicationsActive Meds + DC'd Last 24 HrsAmlodipine Besylate 5 MG DAILY PO Carvedilol 12.5 MG BID@0900,2100 PO Acetaminophen 650 MG Q6H PRN PRN PO Acetaminophen 650 MG Q6H PRN PRN RECTAL Bisacodyl 10 MG DAILY PRN PRN RECTAL Docusate Sodium 100 MG BID PRN PRN PO Hydralazine HCl 20 MG Q6H PRN PRN IV Sodium Chloride 1,000 ML X1ED STA IV (DC) Nutrition assessment:The data set between the solid lines has been imported from the dietitian's assessment. Any exceptions have been noted under Provider comments. BMI Calculated: 20.3Nutrition related diagnosis: Nutrition diagnosis details: Nutrition problem: Nutrition etiology: Nutrition signs and symptoms: Nutrition prescription: Dietitian name: Assessment completed: Provider comments on imported dietitian assessment: Physical ExamGeneral appearance: alert, awake, orientedHead/eyes: atraumatic, normocephalicENT: moist mucous membranesNeck: full range of motionCardiovascular: normal heart sounds, regular rate and rhythmRespiratory: aerating well, clear to auscultationAbdomen: non-tender, softExtremities: normal inspectionNeuro/NBA PLAYER: alert, oriented X 3, CN II-XII intact, normal speech Diagnosis, Assessment PlanProblem List/A P: 1. Generalized weakness 2. Frequent falls Free Text A P:TOMMIE vs CKD-His creatinine is elevated at 1.7. he does have a hx of long standinghypertension. we did obtain a renal US that revealed echogenic kidneys bilaterally with cysts noted in both kidneys. this is more in keeping with medical renal disease. we also obtained urine protein/creatinine and are waitingfor results.we will dose meds for eGFR and avoid nephrotoxins. Deconditioning-deemed due to possible cva. PT/OT to evaluate. Hypertension-Poorly controlled. we will adjust antihypertensive meds to achieve goal BP of <130/80mmhg. . Falls-Deemed due to possible CVA. MRI brain confirmed small acute thalamic stroke. he also has chronic mscrovascular ischemic changes. we will continue statin and aspirin therapy.fall precautions on board. at 2226 RPT #: [id number] OF REPORT PRProgress Pzfy3436-29-58V93:25:00L.[id number] 09AVAvailable for patient siywNXAGGSRRJFGCZM1119-13-63W31:26:54 [facility] 2020-12-09 18:10:00 [id number]/zF1gAck oEPofvW2hDnKfG2beeg8wkNc9/aaF4aNWq9UHabq CFx3027-72-51I32:10:00 [facility])Neurology Consultation NoteREPORT#:[id number] REPORT STATUS: SignedDATE:12/09/20 TIME:1809 PATIENT: RADHA MARMOLEJO UNIT #: [id number]#: [id number] ROOM/BED: [id number]: 53 AGE: 65 SEX: M ATTEND: Pj Brooks [facility] AUTHOR: Michele Thompson MD * ALL edits or amendments must be made on the electronic/computer document * History of Present Illness HPIReason for consult:Falls, history of CVAHPI:Mr. Marmolejo is a 65 years old right-handed AA male with past medical history of hypertension, COPD and previous CVA affecting his right side, tobacco, alcohol and drug abuse who presents with dizziness and frequent falls. Patient complainsof frequent fall for past 2 weeks/legs just gives way. Denies any weakness, neck, back or knee pain. Smokes 1 pack a day and drinks 2-3 beers a week down from 6pack a day in past week and uses cocaine. Patient states has been smacking for past 2-3 months and loss of taste for several years. History - Adult longitudinalAdditional medical history:Hypertension history of CVAAdditional surgical history:No significant past surgical historyFamily history:Reports: Hypertension. Alcohol use: Alcohol useDrug use: CocaineSmoking status: Smoking status for patients 13 years old or older: Current every day smokerAllergies:Coded Allergies:No Known Allergies (12/09/20) Review of SystemsNeuro:Reports: gait problem. All systems rev neg: except as marked Objective GeneralVS:Last Documented: Result Date Time Pulse Ox 98 12/09 1525 B/P 179/95 12/09 1525 B/P Mean 123 12/09 1525 Pulse 74 12/09 1525 Resp 20 12/09 1525 Temp 36.7 12/09 1230 O2 Delivery Room air 12/09 719 PATIENT WEIGHT: Weight (lb): Weight (oz): Weight (kg): 65.909 MedicationsCurrent Home MedicationsASPIRIN 81 MG PO BEDTIME ATORVASTATIN (LIPITOR) 40 MG PO DAILY LISINOPRIL (ZESTRIL) 5 MG PO DAILY buPROPion (WELLBUTRIN) 150 MG PO BID TAMSULOSIN ER (FLOMAX) 0.4 MG PO DAILY BUDESONIDE/FORMOTEROL FUMARATE (SYMBICORT 80/4.5 MCG/ACT) 2 PUFF INH BID Active Meds + DC'd Last 24 HrsAcetaminophen 650 MG Q6H PRN PRN PO Acetaminophen 650 MG Q6H PRN PRN RECTAL Bisacodyl 10 MG DAILY PRN PRN RECTAL Docusate Sodium 100 MG BID PRN PRN PO Hydralazine HCl 20 MG Q6H PRN PRN IV Sodium Chloride 1,000 ML X1ED STA IV (DC) Physical ExamGeneral appearance: alert, awake, orientedHead/Eyes: atraumatic, clear corneaNeck: no masses or swellingRespiratory: aerating well, no distressExtremities: moves all, no edemaMusculoskeletal: full range of motionSkin: dry, intact SpeechSpeech: normal Mental StatusOrientation:Yes: to place, to person, to situation. Cranial NervesCranial nerves:Normal: II, III, IV, V, , VII, VIII, IX, X, XI, XII. Sensory ExamSensory:Normal: light touch, pin prick. Motor TestingMotor testing 1:Normal: bulk, tone, fine movements, strength. Cerebellar TestCerebellar test:Normal R finger/nose/finger, Normal L finger/nose/fingerNystagmus: absent ReflexesPlantar reflexes:Up: Right, Left. Reflexes comments:trace reflexes in BLE and absent ankle jerks GaitGait comments:deferred ResultsFindings/Data:Laboratory Tests 12/09 729 Chemistry Sodium (134 - 147 mmol/L) 141 Potassium (3.4 - 5.0 mmol/L) 3.7 Chloride (100 - 108 mmol/L) 112 H Carbon Dioxide (21 - 32 mmol/L) 22 Anion Gap (4.0 - 15.0 GAP calc) 7.0 BUN (7 - 18 MG/DL) 15 Creatinine (0.8 - 1.3 MG/DL) 1.8 H Glomerular Filtr Rate (>60 estGFR) 40 L Glucose (70 - 110 MG/DL) 93 Calcium (8.5 - 10.1 MG/DL) 8.6 Troponin I (0.000 - 0.045 NG/ML) < 0.015 Laboratory Tests 12/09 0730 Coagulation INR (0.8 - 1.2 INR Unit) 1.04 PTT ([place]) (26 - 35 SECONDS) 33.0 PT Patient/Control Mix (9.3 - 12.9 SECONDS) 11.7 Laboratory Tests 12/09 0730 Hematology WBC (3.5 - 11.0 K/mm3) 6.9 RBC (4.70 - 6.10 M/mm3) 5.13 Hgb (12.3 - 15.9 G/DL) 14.6 Hct (35.8 - 46.7 %) 45.7 MCV (86.3 - 98.9 Fl) 89.1 MCH (28.9 - 34.4 pg) 28.5 L MCHC (32.1 - 34.5 G/DL) 31.9 L RDW (11.5 - 14.5 SD) 13.8 Plt Count (150 - 450 K/mm3) 246 MPV (7.0 - 9.6 fL) 12.20 H Laboratory Tests 12/09 12/09 0810 0810 Urines Urine Color (YEL/STRAW discript) YELLOW Urine Appearance (CLEAR discript) CLEAR Urine pH (5.0 - 7.0 pH UNITS) 6.0 Ur Specific Eunice (1.005 - 1.030 SG) 1.010 Urine Protein (NEG mg/dL) NEGATIVE Urine Glucose (UA) (NEG mg/dL) NEGATIVE Urine Ketones (NEG mg/dL) NEGATIVE Urine Blood (NEG mg/DL) NEGATIVE Urine Nitrite (NEG SCREEN) NEGATIVE Urine Bilirubin (NEG mg/dL) NEGATIVE Urine Urobilinogen (<2.0 mg/dL) 0.2 Ur Leukocyte Esterase (NEGATIVE Leuk/mcL) NEGATIVE Ur Random Creatinine (30 - 125 MG/DL) 97.1 U Random Total Protein (0.0 - 12.0 MG/DL) 19.3 H Radiology Data:Recent Impressions:CAT SCAN - CT HEAD/BRAIN W/O CONT 12/09 0736 Report Impression - Status: SIGNED Entered: 12/09/2020 0751 IMPRESSION: No acute intracranial process seen. Findings discussed with at 7:47 AM on 12/09/2020. FOR INTERNAL CODING PURPOSES ONLYRESULT CODE: CVRImpression By: [email or web address] Le De Oliveira M.D.RADIOLOGY - XR SHOULDER 2+V LT 12/09 0805 Report Impression - Status: SIGNED Entered: 12/09/2020 0822 IMPRESSION: No acute findings of the left shoulder.Impression By: Vivien Wilson M.D.ULTRASOUND - US RETRO LTD 12/09 1444 Report Impression - Status: SIGNED Entered: 12/09/2020 1514 IMPRESSION:1. Hyperechoic kidneys.2. Simple cyst right kidney, multiple cysts versus severehydronephrosis left kidney.Impression By: Vivien Wilson M.D.[facility] - MRI BRAIN W/O CONTRAST 12/09 1605 Report Impression - Status: SIGNED Entered: 12/09/2020 1702 IMPRESSION:Small early subacute lacunar infarct in the right thalamus.Moderate chronic microvascular ischemic changes and diffuse cerebralvolume loss. LOCATION: A 1Impression By: Michelle Nielsen M.D. Results: labs reviewed, vital signs stable, current med profile rev'd Diagnosis, Assessment Plan Free Text DxA P NotesFree text DxA P notes:65 years old male admitted with complaints of falls in past [address] of the brain - negative for acute infarct.MRI of the brain - Small early subacute lacunar infarct in the right thalamus. Moderate chronic microvascular ischemic changes and diffuse cerebral volume loss. Diagnoses:1. Subacute lacunar infarct in the right thalamus related to small vessel disease2. Gait ataxia3. History of chronic infarct4. Acute Kidney Injury5. Polysubstance abuse6. Tobacco abuse7. Hypertension8. History of COPD Plan:Telemetry.Reviewed imaging reports.Continue Aspirin and statins.Substance abuse cessationTobacco abuse cessationPT/OT and speech evaluation.Neurology to follow. Thank you very much for the consult. at 1759 RPT #: [id number] OF REPORT KNHkalahshgztg8715-83-07Q89:10:00L.PDOC2 [id number] for patient ujqfPKBBCBTJSTSNVN2078-54-93M00:59:48 [facility] 2020-12-09 13:57:00 [id number] n6xZeACKy2m2t7ZyBSicv8cNVhIx5Z7odcBxbtfN Z/r6535-00-74T94:57:00 [facility] ([facility])Nephrology Consultation NoteREPORT#:[id number] REPORT STATUS: SignedDATE:12/09/20 TIME:1357 PATIENT: RADHA MARMOLEJO UNIT #: [id number]#: [id number] [address]PJQ99-6HBC: 53 AGE: 65 SEX: M ATTEND: Pj Brooks [facility] AUTHOR: Gamal Rudd MD * ALL edits or amendments must be made on the electronic/computer document * History of Present IllnessRequesting clinician: Dr Brooks.Reason for consult:TOMMIE.Chief complaint:Frequent falls.HPI:65 y o male pt with hx of hypertension, hyperlipidemia, hx of tobacco abuse admited for manageemnt of weakness and falls. He had reported feeling weak and having falls. no dizziness reported. No headache, blurry vision, fever, chills, rigor, n/v or speech abnromalities. CT of the brain done showed microvascular ischemic changes and small volume cerebral loss. His labs revealed elevated creatinine of 1.8 and mod metabolic acidemia. Nephrology was consulted for management recommendations for his elevated creatinine and blood pressure. of note, he has a stroke episode in the past and he had to have medical management of carotid arteriosclerosis. History - Adult longitudinalPast medical history:Reports: Hypertension, Transient ischemic attack. Family history:Reports: Heart disease, Hypertension. Alcohol use: Denies EtOH useDrug use: Denies recreational drugsSmoking status: Smoking status for patients 13 years old or older: Current every day smokerMedications:Home Medications:Medication Dose/Rte/Freq Days Qty Entered Last Max Daily Dose Reviewed ASPIRIN 81 MG PO BEDTIME 12/09/20 12/09/20rength: 81 MG TAB.CHEW 0754 0758 ATORVASTATIN (LIPITOR) 40 MG PO DAILY 12/09/20 12/09/20rength: 40 MG TAB 0755 0758 LISINOPRIL (ZESTRIL) 5 MG PO DAILY 12/09/20 12/09/20rength: 5 MG TAB 0755 0758 buPROPion (WELLBUTRIN) 150 MG PO BID 12/09/20 12/09/20rength: 100 MG TAB 0756 0758 TAMSULOSIN ER (FLOMAX) 0.4 MG PO DAILY 12/09/20 12/09/20rength: 0.4 MG CAP.SR.24H 0756 0758 BUDESONIDE/FORMOTEROL 2 PUFF INH BID 12/09/20 12/09/20 FUMARATE 0757 0758 (SYMBICORT 80/4.5 MCG/ACT)Strength: 80 MCG-4.5MCG/ACTUATION INHALER Current Hospital Medications:Cardiovascular Drugs Sig/Tio Start time Last Medication Dose Route Stop Time Status Admin Amlodipine Besylate 5 MG DAILY 12/10 0900 AC (NORVASC) PO 01/09 859 Carvedilol 12.5 MG BID@0900,2100 12/10 0900 AC (COREG) PO 01/09 0859 Hydralazine HCl 20 MG Q6H PRN PRN 12/09 914 AC (APRESOLINE) IV 01/08 914 Central Nervous System Agents Sig/Tio Start time Last Medication Dose Route Stop Time Status Admin Acetaminophen 650 MG Q6H PRN PRN 12/09 914 AC (TYLENOL) PO 01/08 914 Acetaminophen 650 MG Q6H PRN PRN 12/09 914 AC (TYLENOL) RECTAL 01/08 914 Electrolytic, Caloric, And Josr Sig/Tio Start time Last Medication Dose Route Stop Time Status Admin Sodium Chloride 1,000 ML X1ED STA 12/09 0729 DC 12/09 (0.9% Sodium IV 12/09 0829 0744 Chloride) Gastrointestinal Drugs Sig/Tio Start time Last Medication Dose Route Stop Time Status Admin Bisacodyl 10 MG DAILY PRN PRN 12/09 914 AC (DULCOLAX) RECTAL 01/08 914 Docusate Sodium 100 MG BID PRN PRN 12/09 914 AC (COLACE) PO 01/08 914 Allergies:Coded Allergies:No Known Allergies (12/09/20) Review of SystemsConstitutional:Reports: generalized weakness. Denies: chills, fatigue, fever, lethargy, malaise, recent wt loss, other. Skin:Denies: abrasion, bruising, contusion, diaphoresis, ecchymosis, itching, laceration, rash, swelling, other. Allergy/Immun:Denies: allergic reaction, anaphylaxis, hives, itching, rhinorrhea, sneezing, other. Respiratory:Denies: DORSEY (dyspnea on exertion), hemoptysis, non productive cough, parox nocturnal dyspnea, pleurisy, pleuritic pain, pneumonia, productive cough (sputum), SOB, wheezing, other. Cardiovascular:Denies: chest pain, DORSEY (dyspnea on exertion), edema, orthopnea, palpitations, parox nocturnal dyspnea, other. GI:Denies: abdominal pain, anorexia, constipation, diarrhea, dysphagia, GERD, hematemesis, hematochezia, hiatal hernia, melena, nausea, rectal pain, vomiting,other. :Denies: dysuria, flank pain, frequency, hematuria, nocturia, penile discharge, penile lesion, testicular pain, testicular swelling, urgency, urinary retention,other. Musculoskeletal:Reports: other (leg weakness). Denies: arthritis, extremity pain, extremity swelling, joint pain, joint swelling, lumbar pain, myalgias, neck pain, thoracicpain. Heme:Denies: adenopathy, bleeding, bruising, petechiae, other. Endocrine:Denies: cold intolerance, heat intolerance, polydipsia, polyphagia, polyuria, weight gain, weight loss, other. Neuro:Reports: weakness (both lower limbs.). Denies: bladder dysfunction, bowel dysfunction, change in LOC, confusion, dizziness, focal weakness, gait problem, headache, lightheaded, numbness, seizure, slurred speech, spinning sensation, syncope, unable to speak, vision change, other. Objective GeneralVS/I O:Vital Signs: Date Time Temp Pulse Resp B/P B/P Pulse O2 O2 Flow FiO2 Mean Ox Delivery Rate 12/09 1230 98.0 79 18 184/95 124 99 12/09 1030 98.4 76 20 180/82 114 98 12/09 0930 77 20 162/81 108 98 12/09 0830 76 18 175/82 113 98 12/09 0759 99 12/09 0720 98.1 82 16 173/91 118 100 Room air PATIENT WEIGHT: Weight (lb): Weight (oz): Weight (kg): 65.909 Medications:Active Meds + DC'd Last 24 HrsAcetaminophen 650 MG Q6H PRN PRN PO Acetaminophen 650 MG Q6H PRN PRN RECTAL Bisacodyl 10 MG DAILY PRN PRN RECTAL Docusate Sodium 100 MG BID PRN PRN PO Hydralazine HCl 20 MG Q6H PRN PRN IV Sodium Chloride 1,000 ML X1ED STA IV (DC) Physical ExamGeneral appearance: alert, awake, orientedHead/eyes: atraumatic, normocephalicCardiovascular: normal heart sounds, regular rate and rhythmRespiratory: aerating well, clear to auscultationAbdomen: non-tender, softExtremities: normal inspectionNeuro/NBA PLAYER: alert, oriented X 3, CN II-XII intact, normal speech Diagnosis, Assessment PlanProblem List/A P: 1. Generalized weakness 2. Frequent falls Free Text DxA P NotesFree text DxA P notes:TOMMIE vs CKD-His creatinine is elevated at 1.8. he does have a hx of lng standing hypertension. we did obtain a renal US that revealed echogenic kidneys bilaterally with cysts noted in both kidneys. this is more in keeping with medical renal disease. we also obtained urine protein/creatinine and are waitingfor results.we will dose meds for eGFR and avoid nephrotoxins. Deconditioning-deemed due to possible cva. PT/OT to evaluate. Hypertension-Poorly controlled. we will adjust antihypertensive meds to achieve goal BP of <130/80mmhg. . Falls-Deemed due to possible CVA. MRI brain confirmed small acute thalamic stroke. he also has chronic mscrovascular ischemic changes. we will continue statin and aspirin therapy.fall precautions on board. at 0307 RPT #: [id number] OF REPORT PDNlpkuazfcusi7905-18-25S98:57:00L.PDOC2 [id number] for patient achrYINOQXNJXKSDRB6828-47-39D66:07:28 [facility] 2020-12-09 10:16:00 SAwfkqqfcsy34034100vD35e/XQ3deQZtPPYK/e0 CUnwoyOy9ltRtY2ZhhhzB/5WYlW9q079muJmyeyV 8yb7942-80-21V25:16:00 [facility] PhysicalREPORT#:[id number] REPORT STATUS: SignedDATE:12/09/20 TIME:1016 PATIENT: RADHA MARMOLEJO UNIT #: [id number]#: [id number] [address] AGE: 65 SEX: M ATTEND: Pj Brooks [facility] AUTHOR: Pj Brooks MD * ALL edits or amendments must be made on the electronic/computer document * History of Present Illness HPIChief complaint:Multiple fallsHPI:65-year-old AAM with past medical history of hypertension, COPD and previous CVA on blood thinners presents with dizziness and frequent falls this week. Denies any weakness but he states that his legs gives way on and off especially while he is walking. Denies head trauma. Denies fever or vomiting. Denies numbness or weakness otherwise. Denies other exacerbating or alleviating factors. Denies other associated symptoms. Reports abrasion to left shoulder.Denies any chest pain or shortness of breathPatient is a smoker smokes 1 pack a dayUses alcohol and uses cocaine History Past Medical Surgical HxAdditional medical history:Hypertension history of CVAAdditional surgical history:No significant past surgical history Family HistoryFamily history:Reports: Hypertension. Social HistoryAlcohol use: Alcohol useDrug use: CocaineSmoking status: Smoking status for patients 13 years old or older: Current every day smoker Medication/Allergy-Vaccine HxAllergies:Coded Allergies:No Known Allergies (12/09/20) Review of Systems Free Text ROS NotesFree Text ROS Notes:All the 14 point review of systems negative except for those mentioned HPI. Pertinent positives include inability to walk ,Frequent falls Physical ExamVS/I O:Vital Signs Date Temp Pulse Resp B/P B/P Mean Pulse Ox FiO2 12/09 98.1 82 16 173/91 118 99-100 Last Documented: Result Date Time Pulse Ox 99 12/09 0759 B/P 173/91 12/09 719 B/P Mean 118 12/09 0720 O2 Delivery Room air 12/09 719 Temp 98.1 12/09 719 Pulse 82 12/09 719 Resp 16 12/09 719 Patient Weight and BMI Weight (kg): 65.909 BMI: 20.3 General appearance: alert, awakeHead/Eyes: atraumatic, normocephalicENT: dry mucosal membraneNeck: supple/no meningismusCardiovascular: normal heart sounds, regular rate rhythmRespiratory: aerating well, symmetric expansion, no distressAbdomen: soft, no distentionGenitourinary: no bladder distentionExtremities: moves all, no edemaMusculoskeletal: normal inspectionNeuro/NBA PLAYER: alert, oriented X 3Skin: dry, no rashLymphatics: no lymphadenopathyPsychiatry: anxious ResultsFindings/Data:Laboratory Tests 12/09/20 0730:[Embedded Image Not Available]Laboratory Tests: 12/09 12/09 0810 0730 Chemistry Sodium (134 - 147 mmol/L) 141 Potassium (3.4 - 5.0 mmol/L) 3.7 Chloride (100 - 108 mmol/L) 112 H Carbon Dioxide (21 - 32 mmol/L) 22 Anion Gap (4.0 - 15.0 GAP calc) 7.0 BUN (7 - 18 MG/DL) 15 Creatinine (0.8 - 1.3 MG/DL) 1.8 H Glomerular Filtr Rate (>60 estGFR) 40 L Glucose (70 - 110 MG/DL) 93 Calcium (8.5 - 10.1 MG/DL) 8.6 Troponin I (0.000 - 0.045 NG/ML) < 0.015 Coagulation INR (0.8 - 1.2 INR Unit) 1.04 PTT ([place]) (26 - 35 SECONDS) 33.0 PT Patient/Control Mix (9.3 - 12.9 SECONDS) 11.7 Hematology WBC (3.5 - 11.0 K/mm3) 6.9 RBC (4.70 - 6.10 M/mm3) 5.13 Hgb (12.3 - 15.9 G/DL) 14.6 Hct (35.8 - 46.7 %) 45.7 MCV (86.3 - 98.9 Fl) 89.1 MCH (28.9 - 34.4 pg) 28.5 L MCHC (32.1 - 34.5 G/DL) 31.9 L RDW (11.5 - 14.5 SD) 13.8 Plt Count (150 - 450 K/mm3) 246 MPV (7.0 - 9.6 fL) 12.20 H Urines Urine Color (YEL/STRAW discript) YELLOW Urine Appearance (CLEAR discript) CLEAR Urine pH (5.0 - 7.0 pH UNITS) 6.0 Ur Specific Eunice (1.005 - 1.030 SG) 1.010 Urine Protein (NEG mg/dL) NEGATIVE Urine Glucose (UA) (NEG mg/dL) NEGATIVE Urine Ketones (NEG mg/dL) NEGATIVE Urine Blood (NEG mg/DL) NEGATIVE Urine Nitrite (NEG SCREEN) NEGATIVE Urine Bilirubin (NEG mg/dL) NEGATIVE Urine Urobilinogen (<2.0 mg/dL) 0.2 Ur Leukocyte Esterase (NEGATIVE Leuk/mcL) NEGATIVE Laboratory Tests 12/09/20 0730:[Embedded Image Not Available] Radiology data:Recent Impressions:CAT SCAN - CT HEAD/BRAIN W/O CONT 12/09 0736 Report Impression - Status: SIGNED Entered: 12/09/2020 0751 IMPRESSION: No acute intracranial process seen. Findings discussed with at 7:47 AM on 12/09/2020. FOR INTERNAL CODING PURPOSES ONLYRESULT CODE: CVRImpression By: [email or web address] - Isaias De Oliveira M.D.RADIOLOGY - XR SHOULDER 2+V LT 12/09 0805 Report Impression - Status: SIGNED Entered: 12/09/2020821 IMPRESSION: No acute findings of the left shoulder.Impression By: JeriAntoine Wilson M.D. Diagnosis, Assessment PlanProblem List/A P: 1. Frequent falls 2. Generalized weakness Free Text A P:Frequent fallsAccelerated hypertension history of CVASmokerHistory of cocaine abuseAcute kidney injury PlanMonitor under telemetryMonitor neuro vital signsGet a PT OT evaluationWe will get an MRI to rule out any CVANeurology consultMonitor renal parametersStart on IV fluidsContinue home medications and titrate as neededAdvise smoking cessationAdvised stop using cocaineGI/DVT prophylaxisAdvanced directive full code for now at 1419 RPT #: [id number] OF REPORT HPHistory and physical lymqejjotbe0535-32-28R42:16:00L.QHHM3004 0211-0053AVAvailable for patient xycjNSMLEBXKJGAAYZ2861-25-14G68:19:33 [facility] 2020-12-09 07:36:00 [id number] 9V1jPcK6FIItSMMdJkApT/CNvbMZhyqiSYUFl3wx Oko9292-63-76N96:36:00 [facility] ([facility])EMERGENCY PROVIDER REPORTREPORT#:[id number] REPORT STATUS: SignedDATE:12/09/20 TIME:735 PATIENT: RADHA MARMOLEJO UNIT #: [id number]#: [id number] ROOM/BED: [place] [address]CVM79-8TAY: 53 AGE: 65 SEX: M PCP PHYS: DOES_NOT KNOWSERVICE AUTHOR: Mode Duran MD * ALL edits or amendments must be made on the electronic/computer document * HPI-Dizziness/Weakness Free Text HPI NotesFree Text HPI NotesPatient with previous history of hypertension, COPD and previous CVA currently on blood thinners presents with dizziness and frequent falls this week. Reportsthat his legs give out frequently. Denies head trauma. Denies fever or vomiting. Denies numbness or weakness otherwise. Denies other exacerbating or alleviating factors. Denies other associated symptoms. Currently denying pain. Reports abrasion to left shoulder. GeneralInitial Greet Date/Time 12/09/20721 PresentationChief Complaint Dizzy Review of Systems ROS StatementsAll systems rev neg except as marked. Past Medical History - AdultStated Complaint KEEPS FALLING AND CONFUSEDAllergiesCoded Allergies:No Known Allergies (12/09/20) Home MedicationsReported MedicationsASPIRIN 81 MG PO BEDTIME ATORVASTATIN (LIPITOR) 40 MG PO DAILY LISINOPRIL (ZESTRIL) 5 MG PO DAILY buPROPion (WELLBUTRIN) 150 MG PO BID TAMSULOSIN ER (FLOMAX) 0.4 MG PO DAILY BUDESONIDE/FORMOTEROL FUMARATE (SYMBICORT 80/4.5 MCG/ACT) 2 PUFF INH BID Smoking status: Smoking status for patients 13 years old or older: Current every day smoker Physical Exam Vital SignsVital SignsFirst Documented: Result Date Time Pulse Ox 100 12/09 719 B/P 173/91 12/09 719 B/P Mean 118 12/09 719 O2 Delivery Room air 12/09 719 Temp 36.7 12/09 719 Pulse 82 12/09 719 Resp 16 12/09 719 Last Documented: Result Date Time Pulse Ox 98 12/09 829 B/P 175/82 12/09 829 B/P Mean 113 12/09 829 Pulse 76 12/09 829 Resp 18 12/09 829 O2 Delivery Room air 12/09 719 Temp 36.7 12/09 719 Review of Vital Signs Reviewed Focused PEGeneral/Const General/Const Awake, AlertMS Head Head NormocephalicEyes Eyes PERRL, EOMI, Conjunctiva NLEars/Nose/Throat Ears/Nose/Throat Airway patent, Mucous membranes moist, Pharynx NL, Tympanic membs NL, Ext aud canal NLMS Neck Neck Supple, No meningismus, Full range of motion, No swelling, Non-tender, No masses, No JVD, No carotid bruit, Thyroid NLResp/Chest Respiratory/Chest Breath sounds NL, Breath sounds = bilat, No respiratory distress, No rales, No rhonchi, No wheezingCardiovascular Cardiovascular Heart rate NL, Regular rhythm, Heart sounds NL, No murmurs, Cap refill not delayed, Peripheral circulation NLAbdomen/GI Abdomen/GI Soft, Non-tender, No guarding, No reboundMS Back Back Inspection NL, Non-tender, No CVA tendernessLymphatic Lymphatic No gross adenopathyMS Lower Extrem Lower Ext/Pelvis/MS Inspection NL, No swelling, Non-tender, No erythema, No deformity, Neurologic intact, Vascular intact, No edemaSkin Skin Color NL, Warm, Dry, Turgor NL, abrassion left shoulderNeurologic Neurologic Oriented X3, Speech NL, No motor deficits, No sensory deficits, CNII - XII intact, Cerebellar NLPsychiatric Psychiatric Affect NL, Mood NL, Cognitive function NL, Thought content NL Interpretation Diagnostics Lab Results InterpretationResultsLaboratory Tests 12/09/20 0730:[Embedded Image Not Available]Laboratory Tests: 12/09 12/09 12/09 0810 0810 0730 Chemistry Sodium (134 - 147 mmol/L) 141 Potassium (3.4 - 5.0 mmol/L) 3.7 Chloride (100 - 108 mmol/L) 112 H Carbon Dioxide (21 - 32 mmol/L) 22 Anion Gap (4.0 - 15.0 GAP calc) 7.0 BUN (7 - 18 MG/DL) 15 Creatinine (0.8 - 1.3 MG/DL) 1.8 H Glomerular Filtr Rate (>60 estGFR) 40 L Glucose (70 - 110 MG/DL) 93 Calcium (8.5 - 10.1 MG/DL) 8.6 Troponin I (0.000 - 0.045 NG/ML) < 0.015 Coagulation INR (0.8 - 1.2 INR Unit) 1.04 PTT ([place]) (26 - 35 SECONDS) 33.0 PT Patient/Control Mix (9.3 - 12.9 SECONDS) 11.7 Hematology WBC (3.5 - 11.0 K/mm3) 6.9 RBC (4.70 - 6.10 M/mm3) 5.13 Hgb (12.3 - 15.9 G/DL) 14.6 Hct (35.8 - 46.7 %) 45.7 MCV (86.3 - 98.9 Fl) 89.1 MCH (28.9 - 34.4 pg) 28.5 L MCHC (32.1 - 34.5 G/DL) 31.9 L RDW (11.5 - 14.5 SD) 13.8 Plt Count (150 - 450 K/mm3) 246 MPV (7.0 - 9.6 fL) 12.20 H Urines Urine Color (YEL/STRAW discript) YELLOW Urine Appearance (CLEAR discript) CLEAR Urine pH (5.0 - 7.0 pH UNITS) 6.0 Ur Specific [place] (1.005 - 1.030 SG) 1.010 Urine Protein (NEG mg/dL) NEGATIVE Urine Glucose (UA) (NEG mg/dL) NEGATIVE Urine Ketones (NEG mg/dL) NEGATIVE Urine Blood (NEG mg/DL) NEGATIVE Urine Nitrite (NEG SCREEN) NEGATIVE Urine Bilirubin (NEG mg/dL) NEGATIVE Urine Urobilinogen (<2.0 mg/dL) 0.2 Ur Leukocyte Esterase (NEGATIVE Leuk/mcL) NEGATIVE Ur Random Creatinine (30 - 125 MG/DL) 97.1 U Random Total Protein (0.0 - 12.0 MG/DL) 19.3 H Recent Impressions:CAT SCAN - CT HEAD/BRAIN W/O CONT 12/09 0736 Report Impression - Status: SIGNED Entered: 12/09/2020 0751 IMPRESSION: No acute intracranial process seen. Findings discussed with at 7:47 AM on 12/09/2020. FOR INTERNAL CODING PURPOSES ONLYRESULT CODE: CVRImpression By: [email or web address] Le De Oliveira M.D.RADIOLOGY - XR SHOULDER 2+V LT 12/09 0805 Report Impression - Status: SIGNED Entered: 12/09/2020 0822 IMPRESSION: No acute findings of the left shoulder.Impression By: Vivien Wilson M.D. ECG #1 InterpretationText/Dict NoteEKG performed at 7:34 AM. Ventricular rate is 81 bpm. Normal sinus rhythm, normal axis, no STEMI. Re-Evaluation MDM Free Text MDM NotesFree Text MDM NotesNegative work-up with patient currently stable but high risk due to persistent symptoms and previous stroke. Will admit to hospitalist for observation. I have spoken with the patient and/or caregivers. I have explained the patient'scondition, diagnoses and treatment plan based on the information available to meat this time. I have answered the patient's and/or caregiver's questions and addressed any concerns. The patient and/or caregivers have as good an understanding of the patient's diagnosis, condition and treatment plan as can beexpected at this point. The patient has been stabilized within the capability ofthe emergency department. The patient will be transported for further care and management or will be moved to an observation or inpatient service. I have communicated with the staff or medical practitioner taking over this patient's care. Counseled Regarding Diagnosis, Lab results, Imaging studies, Need for admission,Need for follow-up, When to return to ED CODE STATUS while in ER was full code. Goals of care were discussed in the ED with patient and/or family and the hospitalist was updated on admission of CODE STATUS in the ER. Agrees with plan and disposition. Stable and comfortable at time of disposition. Plan explained and strict return precautions given. Re-Evaluation/Progress #1Time of Re-Eval 0740Re-Eval Status Improved ED CourseMedication(s) OrderedMedication(s) Ordered:Cardiovascular Drugs Sig/Tio Start time Last Medication Dose Route Stop Time Status Admin Hydralazine HCl 20 MG Q6H PRN PRN 12/09 914 AC IV 01/08 914 Central Nervous System Agents Sig/Tio Start time Last Medication Dose Route Stop Time Status Admin Acetaminophen 650 MG Q6H PRN PRN 12/09 914 AC PO 01/08 914 Acetaminophen 650 MG Q6H PRN PRN 12/09 914 AC RECTAL 01/08 914 Gastrointestinal Drugs Sig/Tio Start time Last Medication Dose Route Stop Time Status Admin Bisacodyl 10 MG DAILY PRN PRN 12/09 914 AC RECTAL 01/08 914 Docusate Sodium 100 MG BID PRN PRN 12/09 914 AC PO 01/08 914 Patient Discharge Departure Vital Signs/ConditionVital SignsFirst Documented: Result Date Time Pulse Ox 100 12/09 719 B/P 173/91 12/09 719 B/P Mean 118 12/09 719 O2 Delivery Room air 12/09 719 Temp 36.7 12/09 719 Pulse 82 12/09 0720 Resp 16 12/09 719 Last Documented: Result Date Time Pulse Ox 98 12/09 829 B/P 175/82 12/09 829 B/P Mean 113 12/09 829 Pulse 76 12/09 0730 Resp 18 12/09 0730 O2 Delivery Room air 12/09 719 Temp 36.7 12/09 0620 All vital signs available at the time of this entry have been reviewed. Condition Stable Clinical ImpressionClinical ImpressionPrimary Impression: Generalized weaknessSecondary Impressions: Frequent fallsTime of Impression 918 Disposition DecisionAdmit Admit Physician Name Pj Brooks MD Admit Physician Hospitalist Request Time 918 Request Date 12/09/20 )( Admission Accepts Yes )( Accepted Time 918 )( Accepted Date 12/09/20 Call Information will see patient, agrees with eval, agrees with plan at 1804 RPT #: [id number] OF REPORTEDEmergency department [id number] for patient [id number]:05:10 [facility] 2020-12-09 07:26:00 [id number] [facility] [id number] [place] [id number] PATIENT NAME: RADHA MARMOLEJO ADMIT DATE: 12/09/20ACCOUNT NO: [id number] ROOM NO: [id number] AGE: 65 REPORT TYPE: eELECTROCARDIOGRAM SEX: M ADMITTING PHYSICIAN: Pj Brooks MD ATTENDING PHYSICIAN: Pj Brooks MD Order:[id number] Reason : (Not Selected) Test Date/Time Stamp:SunDec 09 2020 07:26:10Blood Pressure : 173/091 mmHGVent. Rate : 081 BPM Atrial Rate : 081 BPM P-R Int : 140 ms QRS Dur : 080 ms QT Int : 366 ms P-R-T Axes : 078 014 061 degrees QTc Int : 425 ms Normal sinus rhythmNormal ECGNo previous ECGs availableConfirmed by MD Bell Amir ([id number]) on 12/25/2020 2:18:17 PM Referred By: Self Referred Confirmed by:Lashaun Bell MD at 1418 PATIENT NAME: RADHA MARMOLEJO .[id number] for patient [id number]:18:36 HCAPM"
--- NOTE | 2024-01-20 14:03 | RAD REPORT ---
EXAM DESCRIPTION: CT - Head Brain Wo Cont - 01/20/2024 1:55 pm CLINICAL HISTORY: SEIZURE Headache, drowsiness, seizure COMPARISON: Head Brain Wo Cont dated 10/23/2022; Head Brain Wo Cont dated 02/20/2022 TECHNIQUE: All CT scans are performed using dose optimization technique as appropriate and may inclu de automated exposure control or mA/KV adjustment according to patient size. FINDINGS: No intracranial hemorrhage, hydrocephalus or extra-axial fluid collection.Mild generalized brain atrophy is present with advanced periventricular and deep white matter chronic microvascular i schemic changes.No areas of brain edema or evidence of midline shift. The paranasal sinuses and mastoids are clear. The calvarium is intact. IMPRESSION: No acute intracranial abnormality.
[2024-01-20 15:03] LABS: Absolute Eosinophils 0.1 K/uL (0-0.5); Absolute Lymphocytes (CBC) 2.5 K/uL (0.7-4.9); Absolute Monocytes 0.8 K/uL (0.1-1.3); Basophils % 0.2 % (0-1.3); Hematocrit 40.9 % (39.6-49.0); Lymphocytes % 34.1 % (15.3-44.8); MCH 27.2 pg (27.0-35.0); MCHC 31.8 g/dL (32.0-36.0); MCV 85.4 fL (80-100); MPV 10.4 fL (7.6-11.3); Monocytes % 10.3 % (3.3-12.3); Neutrophils % 53.4 % (41.7-73.7); Nucleated Red Blood Cells % 0.1 % (0-0); Platelets 260 thou/uL (152-406); RBC Red Blood Cell Count 4.79 M/uL (4.33-5.43); Red Cell Distribution Width 16.4 % (12.1-15.2)
[2024-01-20 15:24] LABS: ALT/SGPT < 10 U/L (16-61); AST/SGOT 13 U/L (15-37); Albumin 3.4 g/dL (3.4-5.0); Albumin/Globulin Ratio 0.8 (1.1-1.8); Alkaline Phosphatase 130 U/L (45-117); BUN Blood Urea Nitrogen 28 mg/dL (7-18); Bicarbonate 24 mEq/L (21-32); Bilirubin Total 0.7 mg/dL (0.2-1.0); Globulin 4.2 g/dL (2.3-3.5); Glomerular Filtration Rate 31 ml/min (=/>90); Glucose Level 95 mg/dL (74-106); Protein, Total 7.6 g/dL (6.4-8.2); Sodium Level 139 mEq/L (136-145)
--- NOTE | 2024-01-20 15:52 | ER ---
Nurse's Notes [facility] Name: Channing Marmolejo Age: 68 yrs Sex: Male : 1955 Arrival Date: 01/20/2024 Time: 12:32 Bed 20 Private MD: Diagnosis: Other seizures Presentation: 01/19 12:35 Chief complaint: EMS states: possible seizure. Family thought they saw patient having a cp4 seizure on nanny cam but no one witnessed in person. Coronavirus screen: Client denies travel out of the [place] in the last 14 days. At this time, the client does not indicate any symptoms associated with coronavirus-19. Ebola Screen: Patient negative for fever greater than or equal to 101.5 degrees Fahrenheit, and additional compatible Ebola Virus Disease symptoms Patient denies exposure to infectious person. Patient denies travel to an Ebola-affected area in the 21 days before illness onset. No symptoms or risks identified at this time. Initial Sepsis Screen: Does the patient meet any 2 criteria? No. Patient's initial sepsis screen is negative. Does the patient have a suspected source of infection? No. Patient's initial sepsis screen is negative. Risk Assessment: Do you want to hurt yourself or someone else? Patient reports no desire to harm self or others. Onset of symptoms was January 20, 2024. 12:35 Method Of Arrival: EMS: [facility] cp4 12:35 Acuity: KANWAL 3 cp4 Triage Assessment: 12:37 General: Appears in no apparent distress. Behavior is calm, cooperative, appropriate cp4 for age. Pain: Denies pain. Neuro: No deficits noted. Historical: - Home Meds: 12:37 amlodipine 10 mg tab once daily [Active]; aspirin 81 mg Oral tab daily [Active]; cp4 atorvastatin 40 mg Oral tab 1 tab once daily [Active]; Carbidopa-Levodopa Oral 3 times per day [Active]; carvedilol 12.5 mg Oral tab every 12 hours [Active]; Cipro Oral [Active]; clopidogrel 75 mg Oral tab once daily [Active]; donepezil 5 mg Oral tab twice a day [Active]; ergocalciferol (vitamin D2) 50 Oral tab every sunday at 0800 [Active]; Folic Acid Oral [Active]; Phenazopyridine Oral [Active]; tamsulosin 0.4 mg Oral cap once daily [Active]; - PMHx: 12:37 TOMMIE; Carotid artery blockage; COPD; CVA; Hypertension; Parkinson's disease; Seizure; cp4 - PSHx: 12:37 Bladder Stent; cp4 - Immunization history:: Adult Immunizations up to date. - Social history:: Smoking status: unknown. Screenin:43 [facility] ED Fall Risk Assessment (Adult) History of falling in the last 3 months, cp4 including since admission No falls in past 3 months (0 pts) Confusion or Disorientation No (0 pts) Intoxicated or Sedated No (0 pts) Impaired Gait No (0 pts) Mobility Assist Device Used No (0 pt) Altered Elimination No (0 pt) Score/Fall Risk Level 0 - 2 = Low Risk Oriented to surroundings, Maintained a safe environment, Assessed \T\ reinforced patient's understanding of fall precautions, Hourly rounding (assess needs \T\ fall precautionary measures) done. Abuse screen: Denies threats or abuse. Nutritional screening: No deficits noted. Tuberculosis screening: No symptoms or risk factors identified. Assessment: 12:43 Reassessment: No changes from previously documented assessment. cp4 14:22 Reassessment: Multiple blood samples hemolysized. Nurse to do ultrasound IV.. cp4 15:54 Reassessment: Pending discharge. Awaiting family to transport home. cp4 Vital Signs: 12:35 BP 122 / 70; Pulse 70; Resp 18; Temp 98.2; Pulse Ox 98% ; Pain 0/10; cp4 13:00 BP 137 / 70; Pulse 64; Resp 18; Pulse Ox 100% ; cp4 14:00 BP 136 / 85; Pulse 67; Resp 18; Pulse Ox 100% ; cp4 15:00 BP 137 / 66; Pulse 71; Resp 18; Pulse Ox 100% ; cp4 16:00 BP 134 / 70; Pulse 68; Resp 18; Pulse Ox 100% ; cp4 12:35 Pain Scale: Adult cp4 [place] Coma Score: 12:37 Eye Response: spontaneous(4). Motor Response: obeys commands(6). Verbal Response: cp4 oriented(5). Total: 15. ED Course: 12:34 Patient arrived in ED. cp4 12:35 Daylin Bellamy is Primary Nurse. cp4 12:37 Triage completed. cp4 12:37 Arm band placed on right wrist. Patient placed in an exam room, on a stretcher. cp4 12:43 Bed in low position. Call light in reach. Side rails up X 1. cp4 12:43 No provider procedures requiring assistance completed. cp4 12:49 Nerissa Tavarez FNP-C is [facility]. kb 12:49 Matt Jack MD is Attending Physician. kb 13:07 CMP Sent. cp4 13:07 CBC with Diff Sent. cp4 13:[address] via stretcher. hb 13:56 CT Head Brain wo Cont In Process Unspecified. EDMS 14:45 Inserted saline lock: 20 gauge in left antecubital area, using aseptic technique. nj1 ,using aseptic technique. Ultrasound guided. Catheter tip well visualized within vasculature during placement. Blood collected. 15:31 Bladder scan completed. 34 ml, 34 ml, and 36 mL. cp4 16:28 Provided Education on: seizure. cp4 16:28 intact, bleeding controlled, No redness/swelling at site. Pressure dressing applied. cp4 16:29 Seizure precautions initiated. cp4 Administered Medications: No medications were administered Medication: 12:43 VIS not applicable for this client. cp4 Outcome: 15:51 Discharge ordered by MD. kb 16:28 Discharged to home via wheelchair, cp4 16:28 Condition: stable 16:28 Discharge instructions given to patient, Instructed on discharge instructions, follow up and referral plans. Demonstrated understanding of instructions, follow-up care, 16:30 Patient left the ED. cp4 Signatures: Dispatcher [employer] EDOR Nerissa Tavarez FNP-C FNP-Sarai Monique, RN USHA Adela Chen RN RN njDaylin Santiago cp4
--- NOTE | 2024-01-20 15:52 | EDPHYS ---
Physician Documentation [facility] Name: Channing Marmolejo Age: 68 yrs Sex: Male : 1955 Arrival Date: 01/20/2024 Time: 12:32 Bed 20 Private MD: ED Physician Matt Jack HPI: 01/19 16:23 This 68 yrs old Black Male presents to ER via EMS with complaints of Probable Seizure. kb 16:23 Pt is a 68 year old male who presents for possible seizure. Family called EMS because kb pt had seizure like activity on the video monitor. Pt states he was awake and did not have a seizure. Reports tremors in his hands, "like they were nervous." Pt has a history of seizures and Parkinson's. Historical: - Home Meds: 12:37 amlodipine 10 mg tab once daily [Active]; aspirin 81 mg Oral tab daily [Active]; cp4 atorvastatin 40 mg Oral tab 1 tab once daily [Active]; Carbidopa-Levodopa Oral 3 times per day [Active]; carvedilol 12.5 mg Oral tab every 12 hours [Active]; Cipro Oral [Active]; clopidogrel 75 mg Oral tab once daily [Active]; donepezil 5 mg Oral tab twice a day [Active]; ergocalciferol (vitamin D2) 50 Oral tab every sunday at 0800 [Active]; Folic Acid Oral [Active]; Phenazopyridine Oral [Active]; tamsulosin 0.4 mg Oral cap once daily [Active]; - PMHx: 12:37 TOMMIE; Carotid artery blockage; COPD; CVA; Hypertension; Parkinson's disease; Seizure; cp4 - PSHx: 12:37 Bladder Stent; cp4 - Immunization history:: Adult Immunizations up to date. - Social history:: Smoking status: unknown. ROS: 16:21 Constitutional: As per HPI kb Exam: 16:21 Constitutional: This is a well developed, well nourished patient who is awake, alert, kb and in no acute distress. Head/Face: Normocephalic, atraumatic. ENT: Moist Mucous membranes Cardiovascular: Regular rate Respiratory: Respirations even and unlabored. No increased work of breathing. Talking in full sentences Abdomen/GI: Soft, non-tender. No distention Skin: Warm, dry with normal turgor. Normal color. MS/ Extremity: Pulses equal, no cyanosis. Neurovascular intact. Full, normal range of motion. Neuro: Awake and alert, GCS 15, oriented to person, place, time, and situation. Moves all extremities. Vital Signs: 12:35 BP 122 / 70; Pulse 70; Resp 18; Temp 98.2; Pulse Ox 98% ; Pain 0/10; cp4 13:00 BP 137 / 70; Pulse 64; Resp 18; Pulse Ox 100% ; cp4 14:00 BP 136 / 85; Pulse 67; Resp 18; Pulse Ox 100% ; cp4 15:00 BP 137 / 66; Pulse 71; Resp 18; Pulse Ox 100% ; cp4 16:00 BP 134 / 70; Pulse 68; Resp 18; Pulse Ox 100% ; cp4 12:35 Pain Scale: Adult cp4 [place] Coma Score: 12:37 Eye Response: spontaneous(4). Motor Response: obeys commands(6). Verbal Response: cp4 oriented(5). Total: 15. MDM: 12:49 Patient medically screened. kb 16:21 Differential diagnosis: seizure, abnormal electrolytes, parkinsons. Data reviewed: kb vital signs, nurses notes. 16:21 Historians other than the Patient: EMS: [facility]. Counseling: I had a detailed kb discussion with the patient and/or guardian regarding the historical points, exam findings, and any diagnostic results supporting the discharge/admit diagnosis, lab results, radiology results, the need for outpatient follow up, a family practitioner, a neurologist, to return to the emergency department if symptoms worsen or persist or if there are any questions or concerns that arise at home. ED course: Creatinine similar to previous. 16:26 ED course: Nurse attempted sepulveda without success, pt refuses another attempt. Bladder kb scan completed and shows less than 100. 01/19 12:49 Order name: CBC with Diff; Complete Time: 15:16 kb 01/19 12:49 Order name: CMP; Complete Time: 15:24 kb 01/19 12:49 Order name: CT Head Brain wo Cont; Complete Time: 14:14 kb 01/19 12:49 Order name: IV Start; Complete Time: 15:05 kb 01/19 13:13 Order name: Labs - recollect needed: recollect the blood/ hemolyzed per Vanessa; eb Complete Time: 13:43 Administered Medications: No medications were administered Disposition Summary: 01/20/24 15:51 Discharge Ordered Notes: Location: Home kb Condition: Stable kb Diagnosis - Other seizures kb Followup: kb - With: Emergency Department - When: As needed - Reason: Worsening of condition Followup: kb - With: Private Physician - When: 2 - 3 days - Reason: Recheck today's complaints, Continuance of care, Re-evaluation by your physician Discharge Instructions: - Discharge Summary Sheet kb - Seizure, Adult, [id number] kb Forms: - Medication Reconciliation Form kb - Thank You Letter kb - Antibiotic Education kb - Prescription Opioid Use kb - Patient Portal Instructions kb - Leadership Thank You Letter kb Signatures: Dispatcher [employer] EDNerissa Andrews, SARA-C JANITOR-Tavia Aguero Christina cp4 Corrections: (The following items were deleted from the chart) 15:51 15:51 Tremor, unspecified kb kb
[2024-01-20 17:05] VITALS: BP 134/70; TEMP 98.2; O2SAT 100
== END ==
LOC: ER 12:32
DX: G40.89 Other seizures (principal); G20.A1 Parkinson's disease without dyskinesia, without mention of fluctuations; I10 Essential (primary) hypertension; Z86.73 Personal history of transient ischemic attack (TIA), and cerebral infarction without residual deficits; Z79.82 Long term (current) use of aspirin
CPT/HCPCS: 36415; 70450; 80053; 85025; 99284

== ENCOUNTER 2024-02-01 21:11 | Emergency (ER) | payer OTHER ==
--- OUTSIDE RECORDS SUMMARY | 2024-02-01 21:21 | XMS REPORT | Continuity of Care Document ---
Author Name Unknown Address [address] [facility] [address]. [address] [place] [address] [facility] thconnect Address [address] [facility]. 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 Name Role Phone No , Pcp Primary Care Physician Unavailab Leticia Lewis Attending Clinician Unavail able Barrie Real Attending Clinician Unavailable Javier Weinstein Rahil Attending Clinician Unavail able [id number] Attending Clinician Unavailable TARA NIEVES Attending Clinician Unavailable Lewis Mccarty MD Attending Clinician [phone] JAVIER WEINSTEIN Attending Clinician Unavailable Shashi Lee MD Attending Clinician [phone] Verónica RN, Darling Attending Clinician Neelima christianson Ige-Odunbrenda_J_AH Attending Clinician Unavailable Javier Weinstein Rahil Admitting Clinician Unavail able [id number] Admitting Clinician Unavailable BARRIE REAL Admitting Clinician Unavailable Ige-Odunuga_J_AH Admitting Clinician Unavailable Payers Payer Name Policy Type Policy Number Effective Date Expirati on Date Source [facility] [id number] 2022 00:00:00 HUMM HUMM [id number] [employer] O [id number] 2022 00:00:00 H[employer]AN MEDICARE 53 [id number] 2022 00:00:00 [facility] HUMAN MEDICARE 53 [id number] 2020 00:00:00 [facility] [id number] [employer] [place] (MEDICARE REPLACEMENT/ADV ANTAGE - HMO) [id number] Problems Condition Name Condition Details Condition Category Status Onset Date Resolution Date Last Treatment Date Treating Clinician Comments Source Parkinson' s disease Parkinson' s disease Disease Active 04-25 00:00: 00 [facility] Seizure Seizure Disease Active 04-25 00:00: 00 [facility] Lewy body dementia Lewy body dementia Disease Active 04-25 00:00: 00 [facility] Depression Depression Disease Active 04-25 00:00: 00 [facility] Physical deconditio patricia Physical deconditio patricia Disease Active 04-25 00:00: 00 [facility] [id number] Renal atrophy Problem [facility] [id number] S/P ureteral stent placement Problem [facility] [id number] Mixed hyperlipid emia Problem [facility] 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 Hemiparesi s of right dominant side as late effect of cerebral infarction Problem [facility] Dementia with behavioral disturbanc e +6th digit eff 07/29/22*De mentia, unspecifie d, with behavioral disturbanc e Problem [facility] Recurrent falls Repeated falls Problem [facility] Chronic kidney disease stage 3B (disorder) Chronic kidney disease, stage 3b Problem [facility] History of transient ischemic attack History of transient ischemic attack Problem [facility] Chronic kidney disease stage 3 +5th digit eff 07/29/20*Ch ronic kidney disease, stage 3 Problem [facility] [id number] Tobacco abuse counseling Problem [facility] Chronic obstructiv e pulmonary disease Chronic obstructiv e pulmonary disease Problem [facility] [id number] Hyperlipid emia, unspecifie d hyperlipid emia type Problem [facility] [id number] Encounter for immunizati on Problem [facility] [id number] Cerebrovas cular accident (CVA) of right thalamus Problem [facility] [id number] NPH (normal pressure hydrocepha sebas) Problem [facility] Chronic pain Other chronic pain Problem Common [facility] [id number] Dysuria Problem [facility] Eruption of skin Groin rash Problem Commo n [facility] [id number] Bloody drainage from penis Problem [facility] [id number] Urinary hesitancy Problem [facility] [id number] Hematuria, unspecifie d type Problem [facility] Bladder incontinen ce Urinary incontinen ce, unspecifie d type Problem [facility] Chronic kidney disease due to hypertensi on Hypertensi ve CKD (chronic kidney disease) Problem Common [facility] [id number] Agitation Problem Comm on [facility] [id number] Ataxic gait Problem [facility] Chronic kidney disease CKD (chronic kidney disease) Problem [facility] [id number] Depression with anxiety Problem [facility] [id number] Vascular dementia without behavioral disturbanc e Problem [facility] [id number] H/O: CVA (cerebrova scular accident) Problem [facility] [id number] Encounter for therapeuti c drug level monitoring Problem [facility] [id number] Essential hypertensi on Problem [facility] [id number] NIKITA (generaliz ed anxiety disorder) Problem [facility] [id number] Kidney filling defect Problem [facility] [id number] Moderate major depression , single episode Problem [facility] [id number] Benign prostatic hyperplasi a with lower urinary tract symptoms Problem [facility] Chronic hepatitis C Chronic viral hepatitis C Problem Common [facility] [id number] Constipati on, unspecifie d constipati on type Problem [facility] Lower urinary tract symptoms due to benign prostatic hypertroph y Benign localized prostatic hyperplasi a with lower urinary tract symptoms (LUTS) Problem [facility] Hydronephr osis with ureteral stricture Hydronephr osis with ureteral stricture Problem [facility] 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 Problem Common [facility] Dementia Dementia Problem [facility] Bladder dysfunctio n Bladder dysfunctio n Problem [facility] Urge incontinen ce of urine Urgency incontinen ce Problem [facility] [id number] Detrusor instabilit y Problem [facility] [id number] Atrophy of left kidney Problem [facility] [id number] Bilateral hydronephr osis Problem [facility] [id number] Urinary retention Problem [facility] [id number] Hematuria, gross Problem [facility] [id number] Ureteral obstructio n, right Problem [facility] Allergies, Adverse Reactions, Alerts Allergy Name Allergy Type Status Severity Reaction(s) Onset Date Inactive Date Treating Clinician Comments Source NKA Allergy Active 05-22 12:30: 40 [facility] NKA Allergy Active 05-22 12:30: 40 [facility] NKA Allergy Active 05-22 12:30: 40 [facility] No Known Allergie s DA Active U 12-09 00:00: 00 [facility] No Known Allergie s DA Active U 12-09 00:00: 00 [facility] Social History Social Habit Start Date Stop Date Quantity Comments Source History of Tobacco Use [facility] Sex Assigned At [facility] Sexual orientation [facility] Cigarettes smoked current (pack per day) - Reported 2023-12-24 00:00:00 2023-12-24 00:00:00 [facility] Cigarette pack-years 2023-12-24 00:00:00 2023-12-24 00:00:00 [facility] Tobacco use and exposure 2023-12-24 00:00:00 2023-12-24 00:00:00 Smokeless tobacco non-user [facility] Alcoholic beverage intake 2023-12-24 00:00:00 2023-12-24 00:00:00 .86 /d [facility] Tobacco Comment 2023-12-24 00:00:00 2023-12-24 00:00:00 Smoking History Packs/day: 1 PPD. Recorded:02/15/20 21 [facility] Exposure to SARS-CoV-2 (event) 2022-05-26 00:00:00 2022-06-05 13:46:00 Not sure [facility] History of Social function 2021-11-23 00:00:00 2021-11-23 00:00:00 [facility] Smoking Status Start Date Stop Date Source Former Smoker 2024-01-24 00:00:00 2024-01-24 00:00:00 [facility] Current Smoker 2023-07-19 00:00:00 [facility] Medications Ordered Medication Name Filled Medication Name Start Date Stop Date Current Medication? Ordering Clinician Indication Dosage Frequency Signature (SIG) Comments Components Source albuterol 108 (90 Base) MCG/ACT inhaler 12-24 09:27: 12 Yes INHALE TWO PUFFS BY MOUTH FOUR TIMES DAILY NEEDED (BULK) for [facility] cholecalcif mariel 50 MCG (1999) capsule 12-24 09:27: 12 Yes Take 2,000 Units by mouth every 7 (seven) days. DAILY AT 9 AM [facility] carbidopa-l evodopa CR (Sinemet CR) 25-100 MG ER tablet 12-24 00:00: 00 06-22 04:59 :00 Yes [id number] 2{tbl} Q.[id number] 3D Take 2 tablets by mouth in the morning and 2 tablets at noon and 2 tablets in the evening. Do not crush, chew, or split.. [facility] donepezil (Aricept) 5 MG tablet - 00:00: 00 Yes [id number] 5mg Take 1 tablet (5 mg total) by mouth every night. [facility] memantine (Namenda) 10 MG tablet - 00:00: 00 Yes [id number] 10mg Q.5D Take 1 tablet (10 mg total) by mouth in the morning and 1 tablet (10 mg total) in the evening. [facility] carbidopa-l evodopa (Sinemet) 25-100 MG tablet - 00:00: 00 12-24 00:00 :00 No [id number] 1.5{tbl } Q.[id number] 3D Take 1.5 tablets by mouth in the morning and 1.5 tablets at noon and 1.5 tablets in the evening. [facility] levoFLOXaci n 500 MG levoFLOXaci n 500 MG 0 2- 00:00: 00 No 1{table t} QD levoFLOXac in 500 MG levoFLOXaci n 500 MG levoFLOXaci n 500 MG 2023-0 2- 00:00: 00 No 1{table t} QD levoFLOXac in 500 MG levoFLOXaci n 500 MG levoFLOXaci n 500 MG 2023-0 2- 00:00: 00 No 1{table t} QD levoFLOXac in 500 MG levoFLOXaci n 500 MG levoFLOXaci n 500 MG 2023-0 2- 00:00: 00 No 1{table t} QD levoFLOXac in 500 MG levoFLOXaci n 500 MG levoFLOXaci n 500 MG 2023-0 2-05 00:00: 00 No 1{table t} QD levoFLOXac in 500 MG levoFLOXaci n 500 MG levoFLOXaci n 500 MG 4-0 2-05 00:00: 00 No 1{table t} QD levoFLOXac in 500 MG levoFLOXaci n 500 MG levoFLOXaci n 500 MG 2023-0 2-05 00:00: 00 No 1{table t} QD levoFLOXac in 500 MG levoFLOXaci n 500 MG levoFLOXaci n 500 MG 4-0 2-05 00:00: 00 No 1{table t} QD levoFLOXac in 500 MG levoFLOXaci n 500 MG levoFLOXaci n 500 MG 2- 00:00: 00 No 1{table t} QD levoFLOXac in 500 MG levoFLOXaci n 500 MG levoFLOXaci n 500 MG 2 00:00: 00 No 1{table t} QD levoFLOXac in 500 MG levoFLOXaci n 500 MG levoFLOXaci n 500 MG 2- 00:00: 00 No 1{table t} QD levoFLOXac in 500 MG memantine (Namenda) 10 MG tablet 2022-10 00:00: 00 Yes [id number] 10mg Q.5D Take 1 tablet (10 mg total) by mouth in the morning and 1 tablet (10 mg total) in the evening. [facility] Vimpat 100 MG tablet 2022-10 00:00: 00 Yes [id number] 100mg Q.5D Take 1 tablet (100 mg total) by mouth in the morning and 1 tablet (100 mg total) in the evening. [facility] carbidopa-l evodopa (Sinemet) 25-100 MG tablet 2022-10 00:00: 00 08-02 04:59 :00 No [id number] 1.5{tbl } Q.[id number] 3D Take 1.5 tablets by mouth in the morning and 1.5 tablets at noon and 1.5 tablets in the evening. [facility] donepezil (Aricept) 5 MG tablet 2022-10 00:00: 00 08-02 00:00 :00 No [id number] 5mg Take 1 tablet (5 mg total) by mouth every night. [facility] Bactrim 400-80 MG Bactrim 400-80 MG - 00:00: 00 No 1{table t} BID Bactrim 400-80 MG Bactrim 400-80 MG Bactrim 400-80 MG 0 8- 00:00: 00 No 1{table t} BID Bactrim 400-80 MG Bactrim 400-80 MG Bactrim 400-80 MG 0 8- 00:00: 00 No 1{table t} BID Bactrim 400-80 MG Bactrim 400-80 MG Bactrim 400-80 MG 8-12 00:00: 00 No 1{table t} BID [...] MG Bactrim 400-80 MG Bactrim 400-80 MG 3-0 8-12 00:00: 00 No 1{table t} BID Bactrim 400-80 MG Bactrim 400-80 MG Bactrim 400-80 MG 3-0 8-12 00:00: 00 No 1{table t} BID Bactrim 400-80 MG Bactrim 400-80 MG Bactrim 400-80 MG 3-0 8-12 00:00: 00 No 1{table t} BID Bactrim 400-80 MG Bactrim 400-80 MG Bactrim 400-80 MG 3-0 8-12 00:00: 00 No 1{table t} BID Bactrim 400-80 MG Bactrim 400-80 MG Bactrim 400-80 MG 3-0 8-12 00:00: 00 No 1{table t} BID Bactrim 400-80 MG Bactrim 400-80 MG Bactrim 400-80 MG 3-0 8-12 00:00: 00 No 1{table t} BID Bactrim 400-80 MG Bactrim 400-80 MG Bactrim 400-80 MG 3-0 8-12 00:00: 00 No 1{table t} BID Bactrim 400-80 MG Bactrim 400-80 MG Bactrim 400-80 MG 3-0 8-12 00:00: 00 No 1{table t} BID Bactrim 400-80 MG Bactrim 400-80 MG Bactrim 400-80 MG 3-0 8-12 00:00: 00 No 1{table t} BID Bactrim 400-80 MG Vimpat 100 MG tablet 6 00:00: 00 08-02 00:00 :00 No [id number] 100mg Q.5D Take 1 tablet (100 mg total) by mouth in the morning and 1 tablet (100 mg total) in the evening. [facility] memantine (Namenda) 10 MG tablet 330 00:00: 00 08-02 00:00 :00 No [id number] 10mg Q.5D Take 1 tablet (10 mg total) by mouth in the morning and 1 tablet (10 mg total) in the evening. [facility] Power Scooter Power Scooter 2023-0 3-20 00:00: 00 No Power Scooter Power Scooter Power Scooter 2023-0 3-20 00:00: 00 No Power Scooter Power Scooter Power Scooter 2023-0 3-20 00:00: 00 No Power Scooter Power Scooter Power Scooter 2023-0 3-20 00:00: 00 No Power Scooter Power Scooter Power Scooter 2023-0 3-20 00:00: 00 No Power Scooter Power Scooter Power Scooter 2023-0 3-20 00:00: 00 No Power Scooter Power Scooter Power Scooter 2023-0 3-20 00:00: 00 No Power Scooter Power Scooter Power Scooter 2023-0 3-20 00:00: 00 No Power Scooter Power Scooter Power Scooter 2023-0 3-20 00:00: 00 No Power Scooter Power Scooter Power Scooter 2023-0 3-20 00:00: 00 No Power Scooter Power Scooter Power Scooter 2023-0 3-20 00:00: 00 No Power Scooter Power Scooter Power Scooter 2023-0 3-20 00:00: 00 No Power Scooter Power Scooter Power Scooter 2023-0 3-20 00:00: 00 No Power Scooter Power Scooter Power Scooter 2023-0 3-20 00:00: 00 No Power Scooter Power Scooter Power Scooter 2023-0 3-20 00:00: 00 No Power Scooter Power Scooter Power Scooter 2023-0 3-20 00:00: 00 No Power Scooter Power Scooter Power Scooter 2023-0 3-20 00:00: 00 No Power Scooter Power Scooter Power Scooter 2023-0 3-20 00:00: 00 No Power Scooter Power Scooter Power Scooter 2023-0 3-20 00:00: 00 No Power Scooter Power Scooter Power Scooter 2023-0 3-20 00:00: 00 No Power Scooter Power Scooter Power Scooter 2023-0 3-20 00:00: 00 No Power Scooter Power Scooter Power Scooter 320 00:00: 00 No Power Scooter Power Scooter Power Scooter 320 00:00: 00 No Power Scooter Power Scooter Power Scooter 320 00:00: 00 No Power Scooter Power Scooter Power Scooter 320 00:00: 00 No [employer] memantine (Namenda) 10 MG tablet 05-06 00:00: 00 Yes [id number] 10mg Q.5D Take 1 tablet (10 mg total) by mouth in the morning and 1 tablet (10 mg total) in the evening. [facility] levETIRAcet am (Keppra) 500 MG tablet 05-06 00:00: 00 Yes [id number] 500mg Q.5D Take 1 tablet (500 mg total) by mouth in the morning and 1 tablet (500 mg total) in the evening. [facility] carvedilol (Coreg) 3.125 MG tablet -13 00:00: 00 Yes [facility] amLODIPine (Norvasc) 2.5 MG tablet 3- 00:00: 00 Yes [facility] sulfamethox azole-trime thoprim (Bactrim DS) 800-160 MG tablet 2020-10 00:00: 00 Yes [facility] donepezil (Aricept) 5 MG tablet -08 00:00: 00 08-02 00:00 :00 No [facility] lisinopril 5 MG tablet 06-27 00:00: 00 Yes [facility] aspirin (ASPIR) 81 MG EC tablet 01-24 00:00: 00 Yes 81mg 81 mg. [facility] budesonide (Pulmicort) 0.5 MG/2ML nebulizer solution 3 00:00: 00 Yes [facility] Acetaminoph en 325 MG Acetaminoph en 325 MG No 1{table t_as_ne eded} 6xD Acetaminop hen 325 MG Coreg 12.5 MG Coreg 12.5 MG No BID Coreg 12.5 MG Memantine HCl 10 MG Memantine HCl 10 MG No 1{table t} BID Memantine HCl 10 MG Albuterol Sulfate (2.5 MG/3ML) 0.083% Albuterol Sulfate (2.5 MG/3ML) 0.083% No 3{ml_as _needed } QID Albuterol Sulfate (2.5 MG/3ML) 0.083% buPROPion HCl ER (XL) 150 MG buPROPion HCl ER (XL) 150 MG No 1{table t_in_th e_morni ng} QD buPROPion HCl ER (XL) 150 MG SEROquel 50 MG SEROquel 50 MG No 1{table t_at_be dtime} QD SEROquel 50 MG amLODIPine Besylate 5 MG amLODIPine Besylate 5 MG No amLODIPine Besylate 5 MG Atorvastati n Calcium 40 MG Atorvastati [...] 1{table t} QD amLODIPine Besylate 10 MG Ventolin HFA 108 (90 Base) MCG/ACT Ventolin HFA 108 (90 Base) MCG/ACT No 2{puffs _as_nee ded} QID Ventolin HFA 108 (90 Base) MCG/ACT Coreg 3.125 MG Coreg 3.125 MG No QD Coreg 3.125 MG Aricept 10 MG Aricept 10 MG [...] QID Ventolin HFA 108 (90 Base) MCG/ACT Coreg 3.125 [...] QID Ventolin HFA 108 (90 Base) MCG/ACT Tamsulosin HCl 0.4 MG Tamsulosin HCl 0.4 [...] 0.4 MG No Tamsulosin HCl 0.4 MG Aspirin 81 81 MG Aspirin [...] QD Fluticason e Furoate-Vi lanterol 100-25 MCG/INH Aricept 10 MG Aricept 10 MG No 1{table t_at_be dtime} QD Aricept 10 MG Folic Acid 1 MG Folic Acid 1 MG No 1{table t} QD Folic Acid 1 MG amLODIPine Besylate 10 MG amLODIPine Besylate 10 MG No 1{table t} QD amLODIPine Besylate 10 MG Tamsulosin HCl 0.4 MG Tamsulosin HCl 0.4 MG No Tamsulosin HCl 0.4 MG Aspirin 81 81 MG Aspirin [...] QD Atorvastat in Calcium 40 MG Coreg 12.5 [...] 3.125 MG No QD Coreg 3.125 MG Albuterol Sulfate (2.5 MG/3ML) 0.083% Albuterol [...] t} QD amLODIPine Besylate 10 MG Coreg 12.5 MG Coreg 12.5 [...] 1{table t_at_be dtime} QD Aricept 10 MG Fluticasone Furoate-Silver anterol 100-25 MCG/INH [...] QD Atorvastat in Calcium 40 MG Coreg 12.5 [...] QD Atorvastat in Calcium 40 MG Coreg 12.5 [...] QD Atorvastat in Calcium 40 MG Coreg 12.5 [...] QD Atorvastat in Calcium 40 MG Coreg 12.5 [...] QD Atorvastat in Calcium 40 MG Coreg 12.5 [...] QD Atorvastat in Calcium 40 MG Coreg 12.5 [...] BID Budesonide -Formotero l Fumarate 160-4.5 MCG/ACT Donepezil HCl 10 MG Donepezil HCl 10 [...] QD Atorvastat in Calcium 40 MG Coreg 12.5 [...] QD Atorvastat in Calcium 40 MG Coreg 12.5 [...] % No QD Ketoconazo le 2 % Coreg 3.125 MG Coreg 3.125 MG No [...] 1{table t} TID Carbidopa- Levodopa 25-100 MG Atorvastati n Calcium 40 MG Atorvastati n Calcium 40 MG No 1{table t} QD Atorvastat in Calcium 40 MG Coreg 12.5 [...] 1{table t} TID Carbidopa- Levodopa 25-100 MG Atorvastati n Calcium 40 MG Atorvastati n Calcium 40 MG No 1{table t} QD Atorvastat in Calcium 40 MG Coreg 12.5 [...] 1{table t} TID Carbidopa- Levodopa 25-100 MG Atorvastati n Calcium 40 MG Atorvastati n Calcium 40 MG No 1{table t} QD Atorvastat in Calcium 40 MG Coreg 12.5 [...] 1{table t} QD amLODIPine Besylate 10 MG Ventolin HFA 108 (90 Base) [...] food} QD Coreg 12.5 MG Albuterol Sulfate HFA 108 (90 Base) [...] 1{table t} QD amLODIPine Besylate 10 MG Ventolin HFA 108 (90 Base) MCG/ACT Ventolin HFA 108 (90 Base) MCG/ACT No 2{puffs _as_nee ded} QID Ventolin HFA 108 (90 Base) MCG/ACT Flomax 0.4 MG Flomax 0.4 MG No 2{capsu les} QD Flomax 0.4 MG SEROquel 50 MG SEROquel 50 MG No 1{table t_at_be dtime} QD SEROquel 50 MG Coreg 12.5 MG Coreg 12.5 MG No 1{table t_with_ food} QD Coreg 12.5 MG Albuterol Sulfate HFA 108 (90 Base) MCG/ACT Albuterol Sulfate HFA 108 (90 Base) MCG/ACT No Albuterol Sulfate HFA 108 (90 Base) MCG/ACT Folic Acid 1 MG Folic Acid 1 MG No 1{table t} QD Folic Acid 1 MG Atorvastati n Calcium 40 MG Atorvastati n Calcium 40 MG No 1{table t} QD Atorvastat in Calcium 40 MG Aspirin 81 81 MG Aspirin 81 [...] 1{table t} QD amLODIPine Besylate 10 MG Ventolin HFA 108 (90 Base) MCG/ACT Ventolin HFA 108 (90 Base) MCG/ACT No 2{puffs _as_nee ded} QID Ventolin HFA 108 (90 Base) MCG/ACT Budesonide- Formoterol Fumarate 160-4.5 MCG/ACT Budesonide- Formoterol Fumarate 160-4.5 MCG/ACT No 2{puffs } BID Budesonide -Formotero l Fumarate 160-4.5 MCG/ACT Flomax 0.4 MG Flomax 0.4 MG No 2{capsu les} QD Flomax 0.4 MG Coreg 12.5 MG Coreg 12.5 MG No 1{table t_with_ food} QD Coreg 12.5 MG Albuterol Sulfate HFA 108 (90 Base) MCG/ACT Albuterol Sulfate HFA 108 (90 Base) MCG/ACT No Albuterol Sulfate HFA 108 (90 Base) MCG/ACT Folic Acid 1 MG Folic Acid 1 MG No 1{table t} QD Folic Acid 1 MG Folic Acid 1 MG Folic Acid 1 MG No 1{table t} QD Folic Acid 1 MG amLODIPine Besylate 10 mg amLODIPine Besylate 10 mg No amLODIPine Besylate 10 mg Aspirin 81 81 MG Aspirin 81 81 MG No 1{table t} QD Aspirin 81 81 MG Folic Acid 1 mg Folic Acid 1 mg No Folic Acid 1 mg amLODIPine Besylate 5 MG amLODIPine Besylate 5 MG No amLODIPine Besylate 5 MG amLODIPine Besylate 10 mg amLODIPine Besylate 10 mg No amLODIPine Besylate 10 mg Folic Acid 1 mg Folic Acid 1 mg No Folic Acid 1 mg Donepezil HCl 10 MG Donepezil HCl [...] No Clopidogre l Bisulfate 75 mg Coreg 3.125 MG Coreg 3.125 MG No [...] No Clopidogre l Bisulfate 75 mg Coreg 3.125 MG Coreg 3.125 MG No [...] No Clopidogre l Bisulfate 75 mg Coreg 3.125 MG Coreg 3.125 MG No [...] No Clopidogre l Bisulfate 75 mg Coreg 3.125 MG Coreg 3.125 MG No [...] No Clopidogre l Bisulfate 75 mg Coreg 3.125 MG Coreg 3.125 MG No [...] No Clopidogre l Bisulfate 75 mg Coreg 3.125 MG Coreg 3.125 MG No [...] Carvedilol 12.5 mg Atorvastati n Calcium 40 mg Atorvastati n [...] 10 mg No amLODIPine Besylate 10 mg Albuterol Sulfate HFA 108 (90 Base) MCG/ACT Albuterol Sulfate HFA 108 (90 Base) MCG/ACT No Albuterol Sulfate HFA 108 (90 Base) MCG/ACT Ventolin HFA 108 (90 Base) MCG/ACT Ventolin HFA 108 (90 Base) MCG/ACT No 2{puffs _as_nee ded} QID Ventolin HFA 108 (90 Base) MCG/ACT Folic Acid 1 mg Folic Acid 1 mg No Folic Acid 1 mg Clopidogrel Bisulfate 75 mg Clopidogrel Bisulfate [...] dtime} QD Aricept 10 MG Carbidopa-L evodopa 25-100 MG Carbidopa-L evodopa 25-100 MG No 1{table t} TID Carbidopa- Levodopa 25-100 MG Aspirin 81 81 MG Aspirin 81 81 MG No 1{table t} QD Aspirin 81 81 MG Tamsulosin HCl 0.4 mg Tamsulosin HCl 0.4 mg No Tamsulosin HCl 0.4 mg Carvedilol 12.5 mg Carvedilol 12.5 mg No Carvedilol 12.5 mg Albuterol Sulfate HFA 108 (90 Base) MCG/ACT Albuterol Sulfate HFA 108 (90 Base) MCG/ACT No Albuterol Sulfate HFA 108 (90 Base) MCG/ACT Ventolin HFA 108 (90 Base) MCG/ACT Ventolin HFA 108 (90 Base) MCG/ACT No 2{puffs _as_nee ded} QID Ventolin HFA 108 (90 Base) MCG/ACT Folic Acid 1 mg Folic Acid 1 mg No Folic Acid 1 mg Clopidogrel Bisulfate 75 mg Clopidogrel Bisulfate [...] dtime} QD Aricept 10 MG Carbidopa-L evodopa 25-100 MG Carbidopa-L evodopa 25-100 MG No 1{table t} TID Carbidopa- Levodopa 25-100 MG Aspirin 81 81 MG Aspirin 81 81 MG No 1{table t} QD Aspirin 81 81 MG Tamsulosin HCl 0.4 mg Tamsulosin HCl 0.4 mg No Tamsulosin HCl 0.4 mg Clopidogrel Bisulfate 75 MG Clopidogrel Bisulfate 75 MG No Clopidogre l Bisulfate 75 MG Carvedilol 12.5 mg Carvedilol 12.5 mg No Carvedilol 12.5 mg Melatonin 3 MG Melatonin 3 MG No [...] Vaccine (Low Dose Booster) 2021-09-28 14:33:00 Completed [facility] Moderna COVID-19 Vaccine (Low Dose Booster) Moderna COVID-19 Vaccine (Low Dose Booster) 2021-09-28 14:33:00 Completed [facility] Moderna COVID-19 Vaccine (Low Dose Booster) Moderna COVID-19 Vaccine (Low Dose Booster) 2021-09-28 14:33:00 Completed [facility] Moderna COVID-19 Vaccine (Low Dose Booster) Moderna COVID-19 Vaccine (Low Dose Booster) 2021-09-28 14:33:00 Completed [facility] Moderna COVID-19 Vaccine (Low Dose Booster) Moderna COVID-19 Vaccine (Low Dose Booster) 2021-09-28 14:33:00 Completed [facility] Moderna COVID-19 Vaccine (Low Dose Booster) Moderna COVID-19 Vaccine (Low Dose Booster) 2021-09-28 14:33:00 Completed [facility] Moderna COVID-19 Vaccine (Low Dose Booster) Moderna COVID-19 Vaccine (Low Dose Booster) 2021-09-28 14:33:00 Completed [facility] Moderna COVID-19 Vaccine (Low Dose Booster) Moderna COVID-19 Vaccine (Low Dose Booster) 2021-09-28 14:33:00 Completed [facility] Moderna COVID-19 Vaccine (Low Dose Booster) Moderna COVID-19 Vaccine (Low Dose Booster) 2021-09-28 14:33:00 Completed [facility] Moderna COVID-19 Vaccine (Low Dose Booster) Moderna COVID-19 Vaccine (Low Dose Booster) 2021-09-28 14:33:00 Completed [facility] Moderna COVID-19 Vaccine (Low Dose Booster) Moderna COVID-19 Vaccine (Low Dose Booster) 2021-09-28 14:33:00 Completed [facility] Moderna COVID-19 Vaccine (Low Dose Booster) Moderna COVID-19 Vaccine (Low Dose Booster) 2021-09-28 14:33:00 Completed [facility] Moderna COVID-19 Vaccine (Low Dose Booster) Moderna COVID-19 Vaccine (Low Dose Booster) 2021-09-28 14:33:00 Completed [facility] Moderna COVID-19 Vaccine (Low Dose Booster) Moderna COVID-19 Vaccine (Low Dose Booster) 2021-09-28 14:33:00 Completed [facility] Moderna COVID-19 Vaccine (Low Dose Booster) Moderna COVID-19 Vaccine (Low Dose Booster) 2021-09-28 14:33:00 Completed [facility] Moderna COVID-19 Vaccine (Low Dose Booster) Moderna COVID-19 Vaccine (Low Dose Booster) 2021-09-28 14:33:00 Completed [facility] Moderna COVID-19 Vaccine (Low Dose Booster) Moderna COVID-19 Vaccine (Low Dose Booster) 2021-09-28 14:33:00 Completed [facility] Moderna COVID-19 Vaccine (Low Dose Booster) Moderna COVID-19 Vaccine (Low Dose Booster) 2021-09-28 14:33:00 Completed [facility] Moderna COVID-19 Vaccine (Low Dose Booster) Moderna COVID-19 Vaccine (Low Dose Booster) 2021-09-28 14:33:00 Completed [facility] FLUZONE HIGH DOSE OVER 65 FLUZONE HIGH DOSE OVER 65 2021-08-28 15:01:00 Completed [facility] FLUZONE HIGH DOSE OVER 65 FLUZONE HIGH DOSE OVER 65 2021-08-28 15:01:00 Completed [facility] FLUZONE HIGH DOSE OVER 65 FLUZONE HIGH DOSE OVER 65 2021-08-28 15:01:00 Completed [facility] FLUZONE HIGH DOSE OVER 65 FLUZONE HIGH DOSE OVER 65 2021-08-28 15:01:00 Completed [facility] FLUZONE HIGH DOSE OVER 65 FLUZONE HIGH DOSE OVER 65 2021-08-28 15:01:00 Completed [facility] FLUZONE HIGH DOSE OVER 65 FLUZONE HIGH DOSE OVER 65 2021-08-28 15:01:00 Completed [facility] FLUZONE HIGH DOSE OVER 65 FLUZONE HIGH DOSE OVER 65 2021-08-28 15:01:00 Completed [facility] FLUZONE HIGH DOSE OVER 65 FLUZONE HIGH DOSE OVER 65 2021-08-28 15:01:00 Completed [facility] FLUZONE HIGH DOSE OVER 65 FLUZONE HIGH DOSE OVER 65 2021-08-28 15:01:00 Completed [facility] FLUZONE HIGH DOSE OVER 65 FLUZONE HIGH DOSE OVER 65 2021-08-28 15:01:00 Completed [facility] FLUZONE HIGH DOSE OVER 65 FLUZONE HIGH DOSE OVER 65 2021-08-28 15:01:00 Completed [facility] FLUZONE HIGH DOSE OVER 65 FLUZONE HIGH DOSE OVER 65 2021-08-28 15:01:00 Completed [facility] FLUZONE HIGH DOSE OVER 65 FLUZONE HIGH DOSE OVER 65 2021-08-28 15:01:00 Completed [facility] FLUZONE HIGH DOSE OVER 65 FLUZONE HIGH DOSE OVER 65 2021-08-28 15:01:00 Completed [facility] FLUZONE HIGH DOSE OVER 65 FLUZONE HIGH DOSE OVER 65 2021-08-28 15:01:00 Completed [facility] FLUZONE HIGH DOSE OVER 65 FLUZONE HIGH DOSE OVER 65 2021-08-28 15:01:00 Completed [facility] FLUZONE HIGH DOSE OVER 65 FLUZONE HIGH DOSE OVER 65 2021-08-28 15:01:00 Completed [facility] FLUZONE HIGH DOSE OVER 65 FLUZONE HIGH DOSE OVER 65 2021-08-28 15:01:00 Completed [facility] FLUZONE HIGH DOSE OVER 65 FLUZONE HIGH DOSE OVER 65 2021-08-28 15:01:00 Completed [facility] Moderna COVID-19 Vaccine Moderna COVID-19 Vaccine 2021-01-04 14:35:00 Completed [facility] Moderna COVID-19 Vaccine Moderna COVID-19 Vaccine 2021-01-04 14:35:00 Completed [facility] Moderna COVID-19 Vaccine Moderna COVID-19 Vaccine 2021-01-04 14:35:00 Completed [facility] Moderna COVID-19 Vaccine Moderna COVID-19 Vaccine 2021-01-04 14:35:00 Completed [facility] Moderna COVID-19 Vaccine Moderna COVID-19 Vaccine 2021-01-04 14:35:00 Completed [facility] Moderna COVID-19 Vaccine Moderna COVID-19 Vaccine 2021-01-04 14:35:00 Completed [facility] Moderna COVID-19 Vaccine Moderna COVID-19 Vaccine 2021-01-04 14:35:00 Completed [facility] Moderna COVID-19 Vaccine Moderna COVID-19 Vaccine 2021-01-04 14:35:00 Completed [facility] Moderna COVID-19 Vaccine Moderna COVID-19 Vaccine 2021-01-04 14:35:00 Completed [facility] Moderna COVID-19 Vaccine Moderna COVID-19 Vaccine 2021-01-04 14:35:00 Completed [facility] Moderna COVID-19 Vaccine Moderna COVID-19 Vaccine 2021-01-04 14:35:00 Completed [facility] Moderna COVID-19 Vaccine Moderna COVID-19 Vaccine 2021-01-04 14:35:00 Completed [facility] Moderna COVID-19 Vaccine Moderna COVID-19 Vaccine 2021-01-04 14:35:00 Completed [facility] Moderna COVID-19 Vaccine Moderna COVID-19 Vaccine 2021-01-04 14:35:00 Completed [facility] Moderna COVID-19 Vaccine Moderna COVID-19 Vaccine 2021-01-04 14:35:00 Completed [facility] Moderna COVID-19 Vaccine Moderna COVID-19 Vaccine 2021-01-04 14:35:00 Completed [facility] Moderna COVID-19 Vaccine Moderna COVID-19 Vaccine 2021-01-04 14:35:00 Completed [facility] Moderna COVID-19 Vaccine Moderna COVID-19 Vaccine 2021-01-04 14:35:00 Completed [facility] Moderna COVID-19 Vaccine Moderna COVID-19 Vaccine 2021-01-04 14:35:00 Completed [facility] Moderna COVID-19 Vaccine Moderna COVID-19 Vaccine 2020-12-03 14:34:00 Completed [facility] Moderna COVID-19 Vaccine Moderna COVID-19 Vaccine 2020-12-03 14:34:00 Completed [facility] Moderna COVID-19 Vaccine Moderna COVID-19 Vaccine 2020-12-03 14:34:00 Completed [facility] Moderna COVID-19 Vaccine Moderna COVID-19 Vaccine 2020-12-03 14:34:00 Completed [facility] Moderna COVID-19 Vaccine Moderna COVID-19 Vaccine 2020-12-03 14:34:00 Completed [facility] Moderna COVID-19 Vaccine Moderna COVID-19 Vaccine 2020-12-03 14:34:00 Completed [facility] Moderna COVID-19 Vaccine Moderna COVID-19 Vaccine 2020-12-03 14:34:00 Completed [facility] Moderna COVID-19 Vaccine Moderna COVID-19 Vaccine 2020-12-03 14:34:00 Completed [facility] Moderna COVID-19 Vaccine Moderna COVID-19 Vaccine 2020-12-03 14:34:00 Completed [facility] Moderna COVID-19 Vaccine Moderna COVID-19 Vaccine 2020-12-03 14:34:00 Completed [facility] Moderna COVID-19 Vaccine Moderna COVID-19 Vaccine 2020-12-03 14:34:00 Completed [facility] Moderna COVID-19 Vaccine Moderna COVID-19 Vaccine 2020-12-03 14:34:00 Completed [facility] Moderna COVID-19 Vaccine Moderna COVID-19 Vaccine 2020-12-03 14:34:00 Completed [facility] Moderna COVID-19 Vaccine Moderna COVID-19 Vaccine 2020-12-03 14:34:00 Completed [facility] Moderna COVID-19 Vaccine Moderna COVID-19 Vaccine 2020-12-03 14:34:00 Completed [facility] Moderna COVID-19 Vaccine Moderna COVID-19 Vaccine 2020-12-03 14:34:00 Completed [facility] Moderna COVID-19 Vaccine Moderna COVID-19 Vaccine 2020-12-03 14:34:00 Completed [facility] Moderna COVID-19 Vaccine Moderna COVID-19 Vaccine 2020-12-03 14:34:00 Completed [facility] Moderna COVID-19 Vaccine Moderna COVID-19 Vaccine 2020-12-03 14:34:00 Completed [facility] FLUZONE HIGH DOSE OVER 65 FLUZONE HIGH DOSE OVER 65 2020-07-15 10:07:00 Completed [facility] FLUZONE HIGH DOSE OVER 65 FLUZONE HIGH DOSE OVER 65 2020-07-15 10:07:00 Completed [facility] FLUZONE HIGH DOSE OVER 65 FLUZONE HIGH DOSE OVER 65 2020-07-15 10:07:00 Completed [facility] FLUZONE HIGH DOSE OVER 65 FLUZONE HIGH DOSE OVER 65 2020-07-15 10:07:00 Completed [facility] FLUZONE HIGH DOSE OVER 65 FLUZONE HIGH DOSE OVER 65 2020-07-15 10:07:00 Completed [facility] FLUZONE HIGH DOSE OVER 65 FLUZONE HIGH DOSE OVER 65 2020-07-15 10:07:00 Completed [facility] FLUZONE HIGH DOSE OVER 65 FLUZONE HIGH DOSE OVER 65 2020-07-15 10:07:00 Completed [facility] FLUZONE HIGH DOSE OVER 65 FLUZONE HIGH DOSE OVER 65 2020-07-15 10:07:00 Completed [facility] FLUZONE HIGH DOSE OVER 65 FLUZONE HIGH DOSE OVER 65 2020-07-15 10:07:00 Completed [facility] FLUZONE HIGH DOSE OVER 65 FLUZONE HIGH DOSE OVER 65 2020-07-15 10:07:00 Completed [facility] FLUZONE HIGH DOSE OVER 65 FLUZONE HIGH DOSE OVER 65 2020-07-15 10:07:00 Completed [facility] FLUZONE HIGH DOSE OVER 65 FLUZONE HIGH DOSE OVER 65 2020-07-15 10:07:00 Completed [facility] FLUZONE HIGH DOSE OVER 65 FLUZONE HIGH DOSE OVER 65 2020-07-15 10:07:00 Completed [facility] FLUZONE HIGH DOSE OVER 65 FLUZONE HIGH DOSE OVER 65 2020-07-15 10:07:00 Completed [facility] FLUZONE HIGH DOSE OVER 65 FLUZONE HIGH DOSE OVER 65 2020-07-15 10:07:00 Completed [facility] FLUZONE HIGH DOSE OVER 65 FLUZONE HIGH DOSE OVER 65 2020-07-15 10:07:00 Completed [facility] FLUZONE HIGH DOSE OVER 65 FLUZONE HIGH DOSE OVER 65 2020-07-15 10:07:00 Completed [facility] FLUZONE HIGH DOSE OVER 65 FLUZONE HIGH DOSE OVER 65 2020-07-15 10:07:00 Completed [facility] FLUZONE HIGH DOSE OVER 65 FLUZONE HIGH DOSE OVER 65 2020-07-15 10:07:00 Completed [facility] FLUZONE HIGH DOSE OVER 65 FLUZONE HIGH DOSE OVER 65 2019-08-13 14:41:00 Completed [facility] FLUZONE HIGH DOSE OVER 65 FLUZONE HIGH DOSE OVER 65 2019-08-13 14:41:00 Completed [facility] FLUZONE HIGH DOSE OVER 65 FLUZONE HIGH DOSE OVER 65 2019-08-13 14:41:00 Completed [facility] FLUZONE HIGH DOSE OVER 65 FLUZONE HIGH DOSE OVER 65 2019-08-13 14:41:00 Completed [facility] FLUZONE HIGH DOSE OVER 65 FLUZONE HIGH DOSE OVER 65 2019-08-13 14:41:00 Completed [facility] FLUZONE HIGH DOSE OVER 65 FLUZONE HIGH DOSE OVER 65 2019-08-13 14:41:00 Completed [facility] FLUZONE HIGH DOSE OVER 65 FLUZONE HIGH DOSE OVER 65 2019-08-13 14:41:00 Completed [facility] FLUZONE HIGH DOSE OVER 65 FLUZONE HIGH DOSE OVER 65 2019-08-13 14:41:00 Completed [facility] FLUZONE HIGH DOSE OVER 65 FLUZONE HIGH DOSE OVER 65 2019-08-13 14:41:00 Completed [facility] FLUZONE HIGH DOSE OVER 65 FLUZONE HIGH DOSE OVER 65 2019-08-13 14:41:00 Completed [facility] FLUZONE HIGH DOSE OVER 65 FLUZONE HIGH DOSE OVER 65 2019-08-13 14:41:00 Completed [facility] FLUZONE HIGH DOSE OVER 65 FLUZONE HIGH DOSE OVER 65 2019-08-13 14:41:00 Completed [facility] FLUZONE HIGH DOSE OVER 65 FLUZONE HIGH DOSE OVER 65 2019-08-13 14:41:00 Completed [facility] FLUZONE HIGH DOSE OVER 65 FLUZONE HIGH DOSE OVER 65 2019-08-13 14:41:00 Completed [facility] FLUZONE HIGH DOSE OVER 65 FLUZONE HIGH DOSE OVER 65 2019-08-13 14:41:00 Completed [facility] FLUZONE HIGH DOSE OVER 65 FLUZONE HIGH DOSE OVER 65 2019-08-13 14:41:00 Completed [facility] FLUZONE HIGH DOSE OVER 65 FLUZONE HIGH DOSE OVER 65 2019-08-13 14:41:00 Completed [facility] FLUZONE HIGH DOSE OVER 65 FLUZONE HIGH DOSE OVER 65 2019-08-13 14:41:00 Completed [facility] FLUZONE HIGH DOSE OVER 65 FLUZONE HIGH DOSE OVER 65 2019-08-13 14:41:00 Completed [facility] FLUZONE HIGH DOSE OVER 65 FLUZONE HIGH DOSE OVER 65 2018-08-15 11:52:00 Completed [facility] FLUZONE HIGH DOSE OVER 65 FLUZONE HIGH DOSE OVER 65 2018-08-15 11:52:00 Completed [facility] FLUZONE HIGH DOSE OVER 65 FLUZONE HIGH DOSE OVER 65 2018-08-15 11:52:00 Completed [facility] FLUZONE HIGH DOSE OVER 65 FLUZONE HIGH DOSE OVER 65 2018-08-15 11:52:00 Completed [facility] FLUZONE HIGH DOSE OVER 65 FLUZONE HIGH DOSE OVER 65 2018-08-15 11:52:00 Completed [facility] FLUZONE HIGH DOSE OVER 65 FLUZONE HIGH DOSE OVER 65 2018-08-15 11:52:00 Completed [facility] FLUZONE HIGH DOSE OVER 65 FLUZONE HIGH DOSE OVER 65 2018-08-15 11:52:00 Completed [facility] FLUZONE HIGH DOSE OVER 65 FLUZONE HIGH DOSE OVER 65 2018-08-15 11:52:00 Completed [facility] FLUZONE HIGH DOSE OVER 65 FLUZONE HIGH DOSE OVER 65 2018-08-15 11:52:00 Completed [facility] FLUZONE HIGH DOSE OVER 65 FLUZONE HIGH DOSE OVER 65 2018-08-15 11:52:00 Completed [facility] FLUZONE HIGH DOSE OVER 65 FLUZONE HIGH DOSE OVER 65 2018-08-15 11:52:00 Completed [facility] FLUZONE HIGH DOSE OVER 65 FLUZONE HIGH DOSE OVER 65 2018-08-15 11:52:00 Completed [facility] FLUZONE HIGH DOSE OVER 65 FLUZONE HIGH DOSE OVER 65 2018-08-15 11:52:00 Completed [facility] FLUZONE HIGH DOSE OVER 65 FLUZONE HIGH DOSE OVER 65 2018-08-15 11:52:00 Completed [facility] FLUZONE HIGH DOSE OVER 65 FLUZONE HIGH DOSE OVER 65 2018-08-15 11:52:00 Completed [facility] FLUZONE HIGH DOSE OVER 65 FLUZONE HIGH DOSE OVER 65 2018-08-15 11:52:00 Completed [facility] FLUZONE HIGH DOSE OVER 65 FLUZONE HIGH DOSE OVER 65 2018-08-15 11:52:00 Completed [facility] FLUZONE HIGH DOSE OVER 65 FLUZONE HIGH DOSE OVER 65 2018-08-15 11:52:00 Completed [facility] FLUZONE HIGH DOSE OVER 65 FLUZONE HIGH DOSE OVER 65 2018-08-15 11:52:00 Completed [facility] Moderna COVID-19 Vaccine (Low Dose Booster) Moderna COVID-19 Vaccine (Low Dose Booster) Unknown Completed [facility] Moderna COVID-19 Vaccine Moderna COVID-19 Vaccine Unknown Completed [facility] Moderna COVID-19 Vaccine Moderna COVID-19 Vaccine Unknown Completed [facility] FLUZONE HIGH DOSE OVER 65 FLUZONE HIGH DOSE OVER 65 Unknown Completed [facility] FLUZONE HIGH DOSE OVER 65 FLUZONE HIGH DOSE OVER 65 Unknown Completed [facility] FLUZONE HIGH DOSE OVER 65 FLUZONE HIGH DOSE OVER 65 Unknown Completed [facility] FLUZONE HIGH DOSE OVER 65 FLUZONE HIGH DOSE OVER 65 Unknown Completed [facility] Moderna COVID-19 Vaccine (Low Dose Booster) Moderna COVID-19 Vaccine (Low Dose Booster) Unknown Completed [facility] Moderna COVID-19 Vaccine Moderna COVID-19 Vaccine Unknown Completed [facility] Moderna COVID-19 Vaccine Moderna COVID-19 Vaccine Unknown Completed [facility] FLUZONE HIGH DOSE OVER 65 FLUZONE HIGH DOSE OVER 65 Unknown Completed [facility] FLUZONE HIGH DOSE OVER 65 FLUZONE HIGH DOSE OVER 65 Unknown Completed [facility] FLUZONE HIGH DOSE OVER 65 FLUZONE HIGH DOSE OVER 65 Unknown Completed [facility] FLUZONE HIGH DOSE OVER 65 FLUZONE HIGH DOSE OVER 65 Unknown Completed [facility] Moderna COVID-19 Vaccine (Low Dose Booster) Moderna COVID-19 Vaccine (Low Dose Booster) Unknown Completed [facility] Moderna COVID-19 Vaccine Moderna COVID-19 Vaccine Unknown Completed [facility] Moderna COVID-19 Vaccine Moderna COVID-19 Vaccine Unknown Completed [facility] FLUZONE HIGH DOSE OVER 65 FLUZONE HIGH DOSE OVER 65 Unknown Completed [facility] FLUZONE HIGH DOSE OVER 65 FLUZONE HIGH DOSE OVER 65 Unknown Completed [facility] FLUZONE HIGH DOSE OVER 65 FLUZONE HIGH DOSE OVER 65 Unknown Completed [facility] FLUZONE HIGH DOSE OVER 65 FLUZONE HIGH DOSE OVER 65 Unknown Completed [facility] Moderna COVID-19 Vaccine (Low Dose Booster) Moderna COVID-19 Vaccine (Low Dose Booster) Unknown Completed [facility] Moderna COVID-19 Vaccine Moderna COVID-19 Vaccine Unknown Completed [facility] Moderna COVID-19 Vaccine Moderna COVID-19 Vaccine Unknown Completed [facility] FLUZONE HIGH DOSE OVER 65 FLUZONE HIGH DOSE OVER 65 Unknown Completed [facility] FLUZONE HIGH DOSE OVER 65 FLUZONE HIGH DOSE OVER 65 Unknown Completed [facility] FLUZONE HIGH DOSE OVER 65 FLUZONE HIGH DOSE OVER 65 Unknown Completed [facility] FLUZONE HIGH DOSE OVER 65 FLUZONE HIGH DOSE OVER 65 Unknown Completed [facility] Moderna COVID-19 Vaccine (Low Dose Booster) Moderna COVID-19 Vaccine (Low Dose Booster) Unknown Completed [facility] Moderna COVID-19 Vaccine Moderna COVID-19 Vaccine Unknown Completed [facility] Moderna COVID-19 Vaccine Moderna COVID-19 Vaccine Unknown Completed [facility] FLUZONE HIGH DOSE OVER 65 FLUZONE HIGH DOSE OVER 65 Unknown Completed [facility] FLUZONE HIGH DOSE OVER 65 FLUZONE HIGH DOSE OVER 65 Unknown Completed [facility] FLUZONE HIGH DOSE OVER 65 FLUZONE HIGH DOSE OVER 65 Unknown Completed [facility] FLUZONE HIGH DOSE OVER 65 FLUZONE HIGH DOSE OVER 65 Unknown Completed [facility] Moderna COVID-19 Vaccine (Low Dose Booster) Moderna COVID-19 Vaccine (Low Dose Booster) Unknown Completed [facility] Moderna COVID-19 Vaccine Moderna COVID-19 Vaccine Unknown Completed [facility] Moderna COVID-19 Vaccine Moderna COVID-19 Vaccine Unknown Completed [facility] FLUZONE HIGH DOSE OVER 65 FLUZONE HIGH DOSE OVER 65 Unknown Completed [facility] FLUZONE HIGH DOSE OVER 65 FLUZONE HIGH DOSE OVER 65 Unknown Completed [facility] FLUZONE HIGH DOSE OVER 65 FLUZONE HIGH DOSE OVER 65 Unknown Completed [facility] FLUZONE HIGH DOSE OVER 65 FLUZONE HIGH DOSE OVER 65 Unknown Completed [facility] MODERNA COVID-19 VACCINE (LOW DOSE BOOSTER) MODERNA COVID-19 VACCINE (LOW DOSE BOOSTER) Unknown Completed [facility] Moderna COVID-19 Vaccine Moderna COVID-19 Vaccine Unknown Completed [facility] Moderna COVID-19 Vaccine Moderna COVID-19 Vaccine Unknown Completed [facility] FLUZONE HIGH DOSE OVER 65 FLUZONE HIGH DOSE OVER 65 Unknown Completed [facility] FLUZONE HIGH DOSE OVER 65 FLUZONE HIGH DOSE OVER 65 Unknown Completed [facility] FLUZONE HIGH DOSE OVER 65 FLUZONE HIGH DOSE OVER 65 Unknown Completed [facility] FLUZONE HIGH DOSE OVER 65 FLUZONE HIGH DOSE OVER 65 Unknown Completed [facility] MODERNA COVID-19 VACCINE (LOW DOSE BOOSTER) MODERNA COVID-19 VACCINE (LOW DOSE BOOSTER) Unknown Completed [facility] Moderna COVID-19 Vaccine Moderna COVID-19 Vaccine Unknown Completed [facility] Moderna COVID-19 Vaccine Moderna COVID-19 Vaccine Unknown Completed [facility] FLUZONE HIGH DOSE OVER 65 FLUZONE HIGH DOSE OVER 65 Unknown Completed [facility] FLUZONE HIGH DOSE OVER 65 FLUZONE HIGH DOSE OVER 65 Unknown Completed [facility] FLUZONE HIGH DOSE OVER 65 FLUZONE HIGH DOSE OVER 65 Unknown Completed [facility] FLUZONE HIGH DOSE OVER 65 FLUZONE HIGH DOSE OVER 65 Unknown Completed [facility] MODERNA COVID-19 VACCINE (LOW DOSE BOOSTER) MODERNA COVID-19 VACCINE (LOW DOSE BOOSTER) Unknown Completed [facility] Moderna COVID-19 Vaccine Moderna COVID-19 Vaccine Unknown Completed [facility] Moderna COVID-19 Vaccine Moderna COVID-19 Vaccine Unknown Completed [facility] FLUZONE HIGH DOSE OVER 65 FLUZONE HIGH DOSE OVER 65 Unknown Completed [facility] FLUZONE HIGH DOSE OVER 65 FLUZONE HIGH DOSE OVER 65 Unknown Completed [facility] FLUZONE HIGH DOSE OVER 65 FLUZONE HIGH DOSE OVER 65 Unknown Completed [facility] FLUZONE HIGH DOSE OVER 65 FLUZONE HIGH DOSE OVER 65 Unknown Completed [facility] MODERNA COVID-19 VACCINE (LOW DOSE BOOSTER) MODERNA COVID-19 VACCINE (LOW DOSE BOOSTER) Unknown Completed [facility] Moderna COVID-19 Vaccine Moderna COVID-19 Vaccine Unknown Completed [facility] Moderna COVID-19 Vaccine Moderna COVID-19 Vaccine Unknown Completed [facility] FLUZONE HIGH DOSE OVER 65 FLUZONE HIGH DOSE OVER 65 Unknown Completed [facility] FLUZONE HIGH DOSE OVER 65 FLUZONE HIGH DOSE OVER 65 Unknown Completed [facility] FLUZONE HIGH DOSE OVER 65 FLUZONE HIGH DOSE OVER 65 Unknown Completed [facility] FLUZONE HIGH DOSE OVER 65 FLUZONE HIGH DOSE OVER 65 Unknown Completed [facility] MODERNA COVID-19 VACCINE (LOW DOSE BOOSTER) MODERNA COVID-19 VACCINE (LOW DOSE BOOSTER) Unknown Completed [facility] Moderna COVID-19 Vaccine Moderna COVID-19 Vaccine Unknown Completed [facility] Moderna COVID-19 Vaccine Moderna COVID-19 Vaccine Unknown Completed [facility] FLUZONE HIGH DOSE OVER 65 FLUZONE HIGH DOSE OVER 65 Unknown Completed [facility] FLUZONE HIGH DOSE OVER 65 FLUZONE HIGH DOSE OVER 65 Unknown Completed [facility] FLUZONE HIGH DOSE OVER 65 FLUZONE HIGH DOSE OVER 65 Unknown Completed [facility] FLUZONE HIGH DOSE OVER 65 FLUZONE HIGH DOSE OVER 65 Unknown Completed [facility] MODERNA COVID-19 VACCINE (LOW DOSE BOOSTER) MODERNA COVID-19 VACCINE (LOW DOSE BOOSTER) Unknown Completed [facility] Moderna COVID-19 Vaccine Moderna COVID-19 Vaccine Unknown Completed [facility] Moderna COVID-19 Vaccine Moderna COVID-19 Vaccine Unknown Completed [facility] FLUZONE HIGH DOSE OVER 65 FLUZONE HIGH DOSE OVER 65 Unknown Completed [facility] FLUZONE HIGH DOSE OVER 65 FLUZONE HIGH DOSE OVER 65 Unknown Completed [facility] FLUZONE HIGH DOSE OVER 65 FLUZONE HIGH DOSE OVER 65 Unknown Completed [facility] FLUZONE HIGH DOSE OVER 65 FLUZONE HIGH DOSE OVER 65 Unknown Completed [facility] MODERNA COVID-19 VACCINE (LOW DOSE BOOSTER) MODERNA COVID-19 VACCINE (LOW DOSE BOOSTER) Unknown Completed [facility] Moderna COVID-19 Vaccine Moderna COVID-19 Vaccine Unknown Completed [facility] Moderna COVID-19 Vaccine Moderna COVID-19 Vaccine Unknown Completed [facility] FLUZONE HIGH DOSE OVER 65 FLUZONE HIGH DOSE OVER 65 Unknown Completed [facility] FLUZONE HIGH DOSE OVER 65 FLUZONE HIGH DOSE OVER 65 Unknown Completed [facility] FLUZONE HIGH DOSE OVER 65 FLUZONE HIGH DOSE OVER 65 Unknown Completed [facility] FLUZONE HIGH DOSE OVER 65 FLUZONE HIGH DOSE OVER 65 Unknown Completed [facility] MODERNA COVID-19 VACCINE (LOW DOSE BOOSTER) MODERNA COVID-19 VACCINE (LOW DOSE BOOSTER) Unknown Completed [facility] Moderna COVID-19 Vaccine Moderna COVID-19 Vaccine Unknown Completed [facility] Moderna COVID-19 Vaccine Moderna COVID-19 Vaccine Unknown Completed [facility] FLUZONE HIGH DOSE OVER 65 FLUZONE HIGH DOSE OVER 65 Unknown Completed [facility] FLUZONE HIGH DOSE OVER 65 FLUZONE HIGH DOSE OVER 65 Unknown Completed [facility] FLUZONE HIGH DOSE OVER 65 FLUZONE HIGH DOSE OVER 65 Unknown Completed [facility] FLUZONE HIGH DOSE OVER 65 FLUZONE HIGH DOSE OVER 65 Unknown Completed [facility] MODERNA COVID-19 VACCINE (LOW DOSE BOOSTER) MODERNA COVID-19 VACCINE (LOW DOSE BOOSTER) Unknown Completed [facility] Moderna COVID-19 Vaccine Moderna COVID-19 Vaccine Unknown Completed [facility] Moderna COVID-19 Vaccine Moderna COVID-19 Vaccine Unknown Completed [facility] FLUZONE HIGH DOSE OVER 65 FLUZONE HIGH DOSE OVER 65 Unknown Completed [facility] FLUZONE HIGH DOSE OVER 65 FLUZONE HIGH DOSE OVER 65 Unknown Completed [facility] FLUZONE HIGH DOSE OVER 65 FLUZONE HIGH DOSE OVER 65 Unknown Completed [facility] FLUZONE HIGH DOSE OVER 65 FLUZONE HIGH DOSE OVER 65 Unknown Completed [facility] MODERNA COVID-19 VACCINE (LOW DOSE BOOSTER) MODERNA COVID-19 VACCINE (LOW DOSE BOOSTER) Unknown Completed [facility] Moderna COVID-19 Vaccine Moderna COVID-19 Vaccine Unknown Completed [facility] Moderna COVID-19 Vaccine Moderna COVID-19 Vaccine Unknown Completed [facility] FLUZONE HIGH DOSE OVER 65 FLUZONE HIGH DOSE OVER 65 Unknown Completed [facility] FLUZONE HIGH DOSE OVER 65 FLUZONE HIGH DOSE OVER 65 Unknown Completed [facility] FLUZONE HIGH DOSE OVER 65 FLUZONE HIGH DOSE OVER 65 Unknown Completed [facility] FLUZONE HIGH DOSE OVER 65 FLUZONE HIGH DOSE OVER 65 Unknown Completed [facility] MODERNA COVID-19 VACCINE (LOW DOSE BOOSTER) MODERNA COVID-19 VACCINE (LOW DOSE BOOSTER) Unknown Completed [facility] Moderna COVID-19 Vaccine Moderna COVID-19 Vaccine Unknown Completed [facility] Moderna COVID-19 Vaccine Moderna COVID-19 Vaccine Unknown Completed [facility] FLUZONE HIGH DOSE OVER 65 FLUZONE HIGH DOSE OVER 65 Unknown Completed [facility] FLUZONE HIGH DOSE OVER 65 FLUZONE HIGH DOSE OVER 65 Unknown Completed [facility] FLUZONE HIGH DOSE OVER 65 FLUZONE HIGH DOSE OVER 65 Unknown Completed [facility] FLUZONE HIGH DOSE OVER 65 FLUZONE HIGH DOSE OVER 65 Unknown Completed [facility] MODERNA COVID-19 VACCINE (LOW DOSE BOOSTER) MODERNA COVID-19 VACCINE (LOW DOSE BOOSTER) Unknown Completed [facility] Moderna COVID-19 Vaccine Moderna COVID-19 Vaccine Unknown Completed [facility] Moderna COVID-19 Vaccine Moderna COVID-19 Vaccine Unknown Completed [facility] FLUZONE HIGH DOSE OVER 65 FLUZONE HIGH DOSE OVER 65 Unknown Completed [facility] FLUZONE HIGH DOSE OVER 65 FLUZONE HIGH DOSE OVER 65 Unknown Completed [facility] FLUZONE HIGH DOSE OVER 65 FLUZONE HIGH DOSE OVER 65 Unknown Completed [facility] FLUZONE HIGH DOSE OVER 65 FLUZONE HIGH DOSE OVER 65 Unknown Completed [facility] Moderna COVID-19 Vaccine (Low Dose Booster) Moderna COVID-19 Vaccine (Low Dose Booster) Unknown Completed [facility] Moderna COVID-19 Vaccine Moderna COVID-19 Vaccine Unknown Completed [facility] Moderna COVID-19 Vaccine Moderna COVID-19 Vaccine Unknown Completed [facility] FLUZONE HIGH DOSE OVER 65 FLUZONE HIGH DOSE OVER 65 Unknown Completed [facility] FLUZONE HIGH DOSE OVER 65 FLUZONE HIGH DOSE OVER 65 Unknown Completed [facility] FLUZONE HIGH DOSE OVER 65 FLUZONE HIGH DOSE OVER 65 Unknown Completed [facility] FLUZONE HIGH DOSE OVER 65 FLUZONE HIGH DOSE OVER 65 Unknown Completed [facility] Moderna COVID-19 Vaccine (Low Dose Booster) Moderna COVID-19 Vaccine (Low Dose Booster) Unknown Completed [facility] Moderna COVID-19 Vaccine Moderna COVID-19 Vaccine Unknown Completed [facility] Moderna COVID-19 Vaccine Moderna COVID-19 Vaccine Unknown Completed [facility] FLUZONE HIGH DOSE OVER 65 FLUZONE HIGH DOSE OVER 65 Unknown Completed [facility] FLUZONE HIGH DOSE OVER 65 FLUZONE HIGH DOSE OVER 65 Unknown Completed [facility] FLUZONE HIGH DOSE OVER 65 FLUZONE HIGH DOSE OVER 65 Unknown Completed [facility] FLUZONE HIGH DOSE OVER 65 FLUZONE HIGH DOSE OVER 65 Unknown Completed [facility] Moderna COVID-19 Vaccine (Low Dose Booster) Moderna COVID-19 Vaccine (Low Dose Booster) Unknown Completed [facility] Moderna COVID-19 Vaccine Moderna COVID-19 Vaccine Unknown Completed [facility] Moderna COVID-19 Vaccine Moderna COVID-19 Vaccine Unknown Completed [facility] FLUZONE HIGH DOSE OVER 65 FLUZONE HIGH DOSE OVER 65 Unknown Completed [facility] FLUZONE HIGH DOSE OVER 65 FLUZONE HIGH DOSE OVER 65 Unknown Completed [facility] FLUZONE HIGH DOSE OVER 65 FLUZONE HIGH DOSE OVER 65 Unknown Completed [facility] FLUZONE HIGH DOSE OVER 65 FLUZONE HIGH DOSE OVER 65 Unknown Completed [facility] Moderna COVID-19 Vaccine (Low Dose Booster) Moderna COVID-19 Vaccine (Low Dose Booster) Unknown Completed [facility] Moderna COVID-19 Vaccine Moderna COVID-19 Vaccine Unknown Completed [facility] Moderna COVID-19 Vaccine Moderna COVID-19 Vaccine Unknown Completed [facility] FLUZONE HIGH DOSE OVER 65 FLUZONE HIGH DOSE OVER 65 Unknown Completed [facility] FLUZONE HIGH DOSE OVER 65 FLUZONE HIGH DOSE OVER 65 Unknown Completed [facility] FLUZONE HIGH DOSE OVER 65 FLUZONE HIGH DOSE OVER 65 Unknown Completed [facility] FLUZONE HIGH DOSE OVER 65 FLUZONE HIGH DOSE OVER 65 Unknown Completed [facility] Moderna COVID-19 Vaccine (Low Dose Booster) Moderna COVID-19 Vaccine (Low Dose Booster) Unknown Completed [facility] Moderna COVID-19 Vaccine Moderna COVID-19 Vaccine Unknown Completed [facility] Moderna COVID-19 Vaccine Moderna COVID-19 Vaccine Unknown Completed [facility] FLUZONE HIGH DOSE OVER 65 FLUZONE HIGH DOSE OVER 65 Unknown Completed [facility] FLUZONE HIGH DOSE OVER 65 FLUZONE HIGH DOSE OVER 65 Unknown Completed [facility] FLUZONE HIGH DOSE OVER 65 FLUZONE HIGH DOSE OVER 65 Unknown Completed [facility] FLUZONE HIGH DOSE OVER 65 FLUZONE HIGH DOSE OVER 65 Unknown Completed [facility] Moderna COVID-19 Vaccine (Low Dose Booster) Moderna COVID-19 Vaccine (Low Dose Booster) Unknown Completed [facility] Moderna COVID-19 Vaccine Moderna COVID-19 Vaccine Unknown Completed [facility] Moderna COVID-19 Vaccine Moderna COVID-19 Vaccine Unknown Completed [facility] FLUZONE HIGH DOSE OVER 65 FLUZONE HIGH DOSE OVER 65 Unknown Completed [facility] FLUZONE HIGH DOSE OVER 65 FLUZONE HIGH DOSE OVER 65 Unknown Completed [facility] FLUZONE HIGH DOSE OVER 65 FLUZONE HIGH DOSE OVER 65 Unknown Completed [facility] FLUZONE HIGH DOSE OVER 65 FLUZONE HIGH DOSE OVER 65 Unknown Completed [facility] Moderna COVID-19 Vaccine (Low Dose Booster) Moderna COVID-19 Vaccine (Low Dose Booster) Unknown Completed [facility] Moderna COVID-19 Vaccine Moderna COVID-19 Vaccine Unknown Completed [facility] Moderna COVID-19 Vaccine Moderna COVID-19 Vaccine Unknown Completed [facility] FLUZONE HIGH DOSE OVER 65 FLUZONE HIGH DOSE OVER 65 Unknown Completed [facility] FLUZONE HIGH DOSE OVER 65 FLUZONE HIGH DOSE OVER 65 Unknown Completed [facility] FLUZONE HIGH DOSE OVER 65 FLUZONE HIGH DOSE OVER 65 Unknown Completed [facility] FLUZONE HIGH DOSE OVER 65 FLUZONE HIGH DOSE OVER 65 Unknown Completed [facility] Moderna COVID-19 Vaccine (Low Dose Booster) Moderna COVID-19 Vaccine (Low Dose Booster) Unknown Completed [facility] Moderna COVID-19 Vaccine Moderna COVID-19 Vaccine Unknown Completed [facility] Moderna COVID-19 Vaccine Moderna COVID-19 Vaccine Unknown Completed [facility] FLUZONE HIGH DOSE OVER 65 FLUZONE HIGH DOSE OVER 65 Unknown Completed [facility] FLUZONE HIGH DOSE OVER 65 FLUZONE HIGH DOSE OVER 65 Unknown Completed [facility] FLUZONE HIGH DOSE OVER 65 FLUZONE HIGH DOSE OVER 65 Unknown Completed [facility] FLUZONE HIGH DOSE OVER 65 FLUZONE HIGH DOSE OVER 65 Unknown Completed [facility] Moderna COVID-19 Vaccine (Low Dose Booster) Moderna COVID-19 Vaccine (Low Dose Booster) Unknown Completed [facility] Moderna COVID-19 Vaccine Moderna COVID-19 Vaccine Unknown Completed [facility] Moderna COVID-19 Vaccine Moderna COVID-19 Vaccine Unknown Completed [facility] FLUZONE HIGH DOSE OVER 65 FLUZONE HIGH DOSE OVER 65 Unknown Completed [facility] FLUZONE HIGH DOSE OVER 65 FLUZONE HIGH DOSE OVER 65 Unknown Completed [facility] FLUZONE HIGH DOSE OVER 65 FLUZONE HIGH DOSE OVER 65 Unknown Completed [facility] FLUZONE HIGH DOSE OVER 65 FLUZONE HIGH DOSE OVER 65 Unknown Completed [facility] Vital Signs Vital Name Observation Time Observation Value Comments S ource height 2023-12-25 10:30:00 71 [in_i] Commo n [facility] weight 2023-12-25 10:30:00 144.6 [lb_av] Co mmon [facility] temperature 2023-12-25 10:30:00 97.7 [degF] Com mon [facility] bmi 2023-12-25 10:30:00 20.17 kg/m2 Comm on [facility] oximetry 2023-12-25 10:30:00 99 % Commo n [facility] respiratory rate 2023-12-25 10:30:00 16 /min Common [facility] blood pressure systolic 2023-12-25 10:30:00 110 mm[Hg] [facility] blood pressure diastolic 2023-12-25 10:30:00 62 mm[Hg] Common [facility] height 2023-12-25 10:30:00 71 [in_i] Commo n [facility] weight 2023-12-25 10:30:00 144.6 [lb_av] Co mmon [facility] temperature 2023-12-25 10:30:00 97.7 [degF] Com mon [facility] bmi 2023-12-25 10:30:00 20.17 kg/m2 Comm on [facility] oximetry 2023-12-25 10:30:00 99 % Commo n [facility] blood pressure systolic 2023-12-25 10:30:00 110 mm[Hg] Common [facility] blood pressure diastolic 2023-12-25 10:30:00 62 mm[Hg] [facility] Systolic blood pressure 2023-12-24 15:22:00 146 mm[Hg] [facility] Diastolic blood pressure 2023-12-24 15:22:00 72 mm[Hg] [facility] Heart rate 2023-12-24 15:22:00 77 /min [facility] 2023-12-24 15:18:00 36.22 Nirali [facility] Body height 2023-12-24 15:18:00 180.3 [facility] 2023-12-24 15:18:00 65.772 [facility] BMI 2023-12-24 15:18:00 20.22 kg[facility]m2 [facility] height 2023-11-07 09:45:00 71 [in_i] Commo n [facility] weight 2023-11-07 09:45:00 143.2 [lb_av] Co mmon [facility] temperature 2023-11-07 09:45:00 97.9 [degF] Com mon [facility] bmi 2023-11-07 09:45:00 19.97 kg/m2 Comm on [facility] oximetry 2023-11-07 09:45:00 96 % Commo n [facility] respiratory rate 2023-11-07 09:45:00 17 /min Common [facility] blood pressure systolic 2023-11-07 09:45:00 110 mm[Hg] Common [facility] blood pressure diastolic 2023-11-07 09:45:00 57 mm[Hg] [facility] height 2023-07-19 11:20:00 71 [in_i] Commo n [facility] weight 2023-07-19 11:20:00 145 [lb_av] Comm on [facility] temperature 2023-07-19 11:20:00 98.6 [degF] Com [facility] bmi 2023-07-19 11:20:00 20.22 kg/m2 Comm on [facility] blood pressure systolic 2023-07-19 11:20:00 122 mm[Hg] Common [facility] blood pressure diastolic 2023-07-19 11:20:00 67 mm[Hg] Common [facility] height 2023-05-03 14:30:00 71 [in_i] Commo n [facility] weight 2023-05-03 14:30:00 150 [lb_av] Comm on [facility] temperature 2023-05-03 14:30:00 98.4 [degF] Com [facility] bmi 2023-05-03 14:30:00 20.92 kg/m2 Comm on [facility] oximetry 2023-05-03 14:30:00 100 % Commo n [facility] respiratory rate 2023-05-03 14:30:00 16 /min Common [facility] blood pressure systolic 2023-05-03 14:30:00 118 mm[Hg] Common [facility] blood pressure diastolic 2023-05-03 14:30:00 58 mm[Hg] Common [facility] height 2023-02-15 14:15:00 71 [in_i] Commo n [facility] weight 2023-02-15 14:15:00 148.6 [lb_av] Co mmon [facility] temperature 2023-02-15 14:15:00 97.6 [degF] Com [facility] bmi 2023-02-15 14:15:00 20.72 kg/m2 Comm on [facility] oximetry 2023-02-15 14:15:00 97 % Commo n [facility] respiratory rate 2023-02-15 14:15:00 18 /min [facility] blood pressure systolic 2023-02-15 14:15:00 114 mm[Hg] Common [facility] blood pressure diastolic 2023-02-15 14:15:00 65 mm[Hg] Common [facility] height 2022-12-11 13:00:00 71 [in_i] Commo n [facility] weight 2022-12-11 13:00:00 140 [lb_av] Comm on [facility] temperature 2022-12-11 13:00:00 97.4 [degF] Com mon [facility] bmi 2022-12-11 13:00:00 19.52 kg/m2 Comm on [facility] oximetry 2022-12-11 13:00:00 95 % Commo n [facility] respiratory rate 2022-12-11 13:00:00 16 /min Common [facility] blood pressure systolic 2022-12-11 13:00:00 120 mm[Hg] Common [facility] blood pressure diastolic 2022-12-11 13:00:00 59 mm[Hg] Common [facility] height 2022-11-17 10:45:00 71 [in_i] Commo n [facility] weight 2022-11-17 10:45:00 140 [lb_av] Comm on [facility] temperature 2022-11-17 10:45:00 98.0 [degF] Com [facility] bmi 2022-11-17 10:45:00 19.52 kg/m2 Comm on [facility] oximetry 2022-11-17 10:45:00 98 % Commo n [facility] respiratory rate 2022-11-17 10:45:00 18 /min [facility] blood pressure systolic 2022-11-17 10:45:00 87 mm[Hg] Common [facility] blood pressure diastolic 2022-11-17 10:45:00 52 mm[Hg] Common [facility] height 2022-11-10 09:40:00 71 [in_i] Commo n [facility] weight 2022-11-10 09:40:00 150 [lb_av] Comm on [facility] temperature 2022-11-10 09:40:00 97.2 [degF] Com mon [facility] bmi 2022-11-10 09:40:00 20.92 kg/m2 Comm on [facility] oximetry 2022-11-10 09:40:00 100 % Commo n [facility] respiratory rate 2022-11-10 09:40:00 18 /min [facility] blood pressure systolic 2022-11-10 09:40:00 110 mm[Hg] Common [facility] blood pressure diastolic 2022-11-10 09:40:00 60 mm[Hg] Common [facility] height 2022-10-18 08:00:00 71 [in_i] Commo n [facility] weight 2022-10-18 08:00:00 152 [lb_av] Comm on [facility] temperature 2022-10-18 08:00:00 97.4 [degF] Com mon [facility] bmi 2022-10-18 08:00:00 21.2 kg/m2 Commo n [facility] blood pressure systolic 2022-10-18 08:00:00 125 mm[Hg] Common [facility] blood pressure diastolic 2022-10-18 08:00:00 70 mm[Hg] Common [facility] height 2022-07-05 16:00:00 71 [in_i] Commo n [facility] weight 2022-07-05 16:00:00 150 [lb_av] Comm on [facility] temperature 2022-07-05 16:00:00 98 [degF] Comm on [facility] bmi 2022-07-05 16:00:00 20.92 kg/m2 Comm on [facility] blood pressure systolic 2022-07-05 16:00:00 119 mm[Hg] Common [facility] blood pressure diastolic 2022-07-05 16:00:00 75 mm[Hg] Common [facility] height 2022-07-05 15:30:00 71 [in_i] Commo n [facility] weight 2022-07-05 15:30:00 150 [lb_av] Comm on [facility] temperature 2022-07-05 15:30:00 98 [degF] Comm on [facility] bmi 2022-07-05 15:30:00 20.92 kg/m2 Comm on [facility] blood pressure systolic 2022-07-05 15:30:00 119 mm[Hg] Common [facility] blood pressure diastolic 2022-07-05 15:30:00 75 mm[Hg] Common [facility] height 2022-05-31 16:20:00 71 [in_i] Commo n [facility] weight 2022-05-31 16:20:00 150.0 [lb_av] Co mmon [facility] temperature 2022-05-31 16:20:00 98.2 [degF] Com mon [facility] bmi 2022-05-31 16:20:00 20.92 kg/m2 Comm on [facility] oximetry 2022-05-31 16:20:00 97 % Commo n [facility] respiratory rate 2022-05-31 16:20:00 18 /min [facility] blood pressure systolic 2022-05-31 16:20:00 122 mm[Hg] [facility] blood pressure diastolic 2022-05-31 16:20:00 58 mm[Hg] [facility] Systolic blood pressure 2022-04-11 18:12:00 153 mm[Hg] [facility] Diastolic blood pressure 2022-04-11 18:12:00 69 mm[Hg] [facility] Heart rate 2022-04-11 18:12:00 71 /min [facility] 2022-03-22 13:00:00 71 [in_i] Commo n [facility] weight 2022-03-22 13:00:00 150 [lb_av] Comm on [facility] temperature 2022-03-22 13:00:00 98.2 [degF] Com [facility] bmi 2022-03-22 13:00:00 20.92 kg/m2 Comm on [facility] oximetry 2022-03-22 13:00:00 99 % Commo n [facility] respiratory rate 2022-03-22 13:00:00 17 /min [facility] blood pressure systolic 2022-03-22 13:00:00 90 mm[Hg] Common [facility] blood pressure diastolic 2022-03-22 13:00:00 54 mm[Hg] [facility] Procedures Procedure Date / Time Performed Performing Clinicia n Source PVR 2023-11-07 00:00:00 Common [facility] PVR 2023-02-15 00:00:00 [facility] HEAVY METALS SCREEN, URINE 2022-04-18 20:15:00 Lewis Mccarty [facility] VITAMIN B12 2022-04-14 00:00:00 Lewis Mccarty [facility] TSH 2022-04-14 00:00:00 Lewis Mccarty [facility] COPPER 2022-04-14 00:00:00 Lewis Mccarty [facility] Encounters Start Date/Time End Date/Time Encounter Type Admission Type Attending [facility] Care Department Encounter ID Source 2023-12-25 10:49:00 Outpatient Leticia Lake [facility] [id number] [facility] 2023-04-19 09:20:46 Outpatient [facility] [id number] [facility] 2023-04-12 13:45:31 Outpatient [facility] [id number] [facility] 2023-01-16 13:50:03 Outpatient Real, [facility] [id number] [facility] 2022-11-09 11:19:01 [facility] [id number] [facility] 2022-11-08 07:33:01 [facility] [id number] [facility] 2022-10-16 08:41:01 [facility] [id number] [facility] 2022-08-11 13:29:47 Outpatient [facility] [id number] [facility] 2022-07-18 11:13:04 [facility] [id number] [facility] 2022-07-13 14:05:03 Outpatient Real, [facility] [id number] [facility] 2022-07-06 15:56:01 Out[facility] Real, [facility] 2022-06-01 14:08:02 Outpatient Real, [facility] [id number] [facility] 2022-04-13 15:18:02 Outpatient Real, [facility] [id number] [facility] 2022-03-22 13:05:02 Outpatient Real, [facility] 2022-03-13 09:23:09 Outpatient 3 Jadenelias Javier [facility]A [id number] [facility] 2022-03-07 10:47:49 Outpatient 3 Javier Weinstein E[facility] CVA [id number] [facility] 2022-03-06 11:03:26 Outpatient 3 [id number] E[facility] REF [id number] [facility] 2020-12-11 23:40:36 Inpatient HCAPM HCAPM [id number] [facility] 2024-02-04 09:00:00 2024-02-04 09:00:00 Outpatient LIZBETHTARA [facility] [id number] [facility] 2024-01-24 00:00:00 2024-01-24 00:00:00 OFFICE VISIT ESTAB PT [facility] [id number] [facility] 2024-01-24 00:00:00 2024-01-24 00:00:00 (TEL) ST[facility] ST[facility] [id number] [facility] 2024-01-14 00:00:00 2024-01-14 00:00:00 (TEL) STLMLC STLMLC [id number] [facility] 2024-01-03 00:00:00 2024-01-03 00:00:00 (TEL) STLMLC STLMLC [id number] [facility] 2024-01-02 00:00:00 2024-01-02 00:00:00 (TEL) STLMLC STLMLC [id number] [facility] 2024-01-01 00:00:00 2024-01-01 00:00:00 (TEL) STLMLC STLMLC [id number] [facility] 2023-12-26 11:00:00 2023-12-26 11:18:39 Outpatient [facility] [id number] [facility] 2023-12-25 00:00:00 2023-12-25 00:00:00 SUB ANNUAL [facility] WELLNESS VISIT STLMLC STLMLC [id number] [facility] 2023-12-25 00:00:00 2023-12-25 00:00:00 OFFICE VISIT NEW PT LEVEL 4 STLMLC STLMLC [id number] [facility] 2023-12-25 00:00:00 2023-12-25 00:00:00 (TEL) STLMLC STLMLC [id number] [facility] 2023-12-24 11:00:00 2023-12-24 12:03:32 Outpatient [facility] [id number] [facility] 2023-12-24 09:00:00 2023-12-24 10:17:07 Office Visit Tara Nieves [facility] [id number] [id number] [facility] 2023-12-05 10:00:00 2023-12-05 10:34:15 Telemedici Lewis Baca [facility] [id number] [id number] [facility] 2023-12-05 00:00:00 2023-12-05 00:00:00 (TEL) STLMLC STLMLC [id number] [facility] 2023-12-03 00:00:00 2023-12-03 00:00:00 (TEL) STLMLC STLMLC [id number] [facility] 2023-11-29 14:30:00 2023-11-29 14:30:00 Outpatient LEWIS MCCARTY [facility] [id number] [facility] 2023-11-07 00:00:00 2023-11-07 00:00:00 OFFICE VISIT ESTAB PT LEVEL 3 STLMLC STLMLC [id number] [facility] 2023-11-01 00:00:00 2023-11-01 00:00:00 (TEL) STLMLC STLMLC [id number] [facility] 2023-09-26 00:00:00 2023-09-26 00:00:00 (TEL) STLMLC STLMLC [id number] [facility] [facility] 2023-08-02 15:00:00 2023-08-02 15:28:35 Telemedici ne Lewis Mccarty [facility] [address] [facility] 1.2.840.114 350.1.13.58 9.2.7.2.686 [id number] [facility] 2023-07-30 00:00:00 2023-07-30 00:00:00 (TEL) STLMLC STLMLC [id number] [facility] 2023-07-19 00:00:00 2023-07-19 00:00:00 OFFICE VISIT ESTAB PT LEVEL 4 STLMLC STLMLC [id number] [facility] 2023-05-03 00:00:00 2023-05-03 00:00:00 OFFICE VISIT ESTAB PT LEVEL 3 STLMLC STLMLC [id number] [facility] 2023-04-24 14:00:2023-04-24 14:48:11 Telemedici Lewis Baca [facility] 1.2.840.114 350.1.13.58 9.2.7.2.686 [id number] [facility] 2023-02-15 00:00:00 2023-02-15 00:00:00 OFFICE VISIT ESTAB PT LEVEL 3 STLMLC STLMLC [id number] [facility] 2023-01-31 00:00:00 2023-01-31 00:00:00 (TEL) STLMLC STLMLC [id number] [facility] 2023-01-23 00:00:00 2023-01-23 00:00:00 (TEL) STLMLC STLMLC [id number] [facility] 2023-01-16 00:00:00 2023-01-16 00:00:00 (TEL) STLMLC STLMLC [id number] [facility] 2023-01-16 00:00:00 2023-01-16 00:00:00 (TEL) STLMLC STLMLC [id number] [facility] 2022-12-25 00:00:00 2022-12-25 00:00:00 (TEL) STLMLC STLMLC [id number] [facility] 2022-12-16 00:00:00 2022-12-16 00:00:00 (TEL) STLMLC STLMLC [id number] [facility] 2022-12-11 00:00:00 2022-12-11 00:00:00 OFFICE VISIT ESTAB PT LEVEL 4 STLMLC STLMLC [id number] [facility] 2022-11-29 00:00:00 2022-11-29 00:00:00 (PROC) Procedure STLMLC STLMLC [id number] [facility] 2022-11-20 00:00:00 2022-11-20 00:00:00 (TEL) STLMLC STLMLC [id number] [facility] 2022-11-17 00:00:00 2022-11-17 00:00:00 OFFICE VISIT EST PT LEVEL 3 STLMLC STLMLC [id number] [facility] 2022-11-10 00:00:00 2022-11-10 00:00:00 (HOSP F/U) Hospital Follow Up STLMLC STLMLC [id number] [facility] 2022-11-09 00:00:00 2022-11-09 00:00:00 (TEL) STLMLC STLMLC [id number] [facility] 2022-11-06 00:00:00 2022-11-06 00:00:00 (TEL) STLMLC STLMLC [id number] [facility] 2022-10-31 00:00:00 2022-10-31 00:00:00 (TEL) STLMLC STLMLC [id number] [facility] 2022-10-18 00:00:00 2022-10-18 00:00:00 OFFICE VISIT ESTAB PT LEVEL 4 STLMLC STLMLC [id number] [facility] 2022-08-28 00:00:00 2022-08-28 00:00:00 (TEL) STLMLC STLMLC [id number] [facility] 2022-08-15 00:00:00 2022-08-15 00:00:00 (TEL) STLMLC STLMLC [id number] [facility] 2022-05-22 00:00:00 2022-07-20 00:00:00 Outpatient NEW ADMISSION JAVIER WEINSTEIN ENCCLR ENCCLR [id number] [facility] 2022-07-05 00:00:00 2022-07-05 00:00:00 OFFICE VISIT ESTAB PT LEVEL 4 STLMLC STLMLC [id number] [facility] 2022-07-05 00:00:00 2022-07-05 00:00:00 SUB ANNUAL [facility] VISIT STLMLC STLMLC [id number] [facility] 2022-07-05 00:00:00 2022-07-05 00:00:00 (TEL) STLMLC STLMLC [id number] [facility] 2022-06-05 14:00:00 2022-06-05 14:18:23 Office Visit Shashi Lee [facility] 1.2.840.114 350.1.13.58 9.2.7.2.686 [id number] [facility] 2022-06-02 00:00:00 2022-06-02 00:00:00 Telephone Shashi Lee [facility] 1.2.840.114 350.1.13.58 9.2.7.2.686 [id number] [facility] 2022-05-31 00:00:00 2022-05-31 00:00:00 OFFICE VISIT ESTAB PT LEVEL 4 STLMLC STLMLC [id number] [facility] 2022-05-23 00:00:00 2022-05-23 00:00:00 (TEL) STLMLC STLMLC [id number] [facility] 2022-05-22 00:00:00 2022-05-22 00:00:00 (TEL) STLMLC STLMLC [id number] [facility] 2022-05-03 16:39:00 2022-05-20 11:20:00 Inpatient 3 Javier Weinstein [place] [id number] 0706 [facility] Robert aragon 2022-05-15 00:00:00 2022-05-15 00:00:00 (TEL) STLMLC STLMLC [id number] [facility] 2022-05-01 00:00:00 2022-05-01 00:00:00 Telephone Darling Baxter, Darling LIN [facility] 1..840.114 350.1.13.58 9.2.7.2.686 [id number] [facility] 2022-04-18 00:00:00 2022-04-18 00:00:00 Telephone Lewis Mccarty [facility] [address] 1.2.840.114 350.1.13.58 9.2.7.2.686 [id number] [facility] 2022-04-11 13:00:00 2022-04-11 14:39:51 Office Visit Lewis Mccarty [facility] 1.2.840.114 350.1.13.58 9.2.7.2.686 [id number] [facility] 2022-04-01 00:00:00 2022-04-01 00:00:00 (TEL) STLMLC STLMLC [id number] [facility] 2022-03-31 00:00:00 2022-03-31 00:00:00 (TEL) STLMLC STLMLC [id number] [facility] 2022-03-22 00:00:00 2022-03-22 00:00:00 OFFICE VISIT EST PT LEVEL 3 STLMLC STLMLC [id number] [facility] 2020-01-14 12:47:00 2020-01-14 12:47:00 Outpatient Ige[place] _J_AH VFP VFP [id number] [facility] 2020-01-14 12:47:00 2020-01-14 12:47:00 Outpatient Ige[place] _J_AH VFP VFP [id number] 79961 [facility] Results Test Description Test Time Test Comments Results Result Co mments Source [facility] TexasOecnthSPCLAJ9058-58-92 09:00:00* Test Item Value Reference Range Interpretation Comme nts COPPER (test code = 5631-7) See_Comment This test was developed and its analytical performance characteristics have been determined by [facility]. It has not been cleared or approved [...] Information: ? ?Site ID: [facility] ? ?Name: [facility] ? ?Address: [address] [place] [address] ? ?Director: RONI KRAMER MD [place] [facility] [id number] 09:00:00* Test Item Value Reference Range Interpretation Comments VITAMIN B12 (test code = 2132-9) 280 pg/mL 200-1100 Please Note: Alt franklyn the reference range for wljfdwsA38 is 200-1100 pg/mL, it has been reported that between5 and 10% of patients with values between 200 and 400pg/mL may experience neuropsychiatric and hematologicabnormalities due to occult B12 deficiency; less than 1%of patients with values above 400 pg/mL will have symptoms. RAC (test code = RAC) Performing Organization Information: ? ?Site ID: [facility] ? ?Name: [facility] ? ?Address: [address] [place] [address] ? ?Director: GRACIE SULLIVAN MD [facility] TexasRvcmkgMRR0609-06-07 09:00:00* Test Item Value Reference Range Interpretation Comme nts TSH (test code = 3016-3) See_Comment [Automated messa ge] The system which generated this result transmitted reference range: 0.40 - 4.50 mIU/L. The reference range was not used to interpret this result as normal/abnormal. RAC (test code = RAC) Performing Organization Information: ? ?Site ID: [facility] ? ?Name: [facility] ? ?Address: [address] [place] [address] ? ?Director: GRACIE SULLIVAN MD [facility] TexasGLUCOSE BEDSIDE [id number] 06:38:00* Test Item Value Reference Range Interpretation Comme nts GLUCOSE BEDSIDE TESTING (matt t code = GLUBED) 93 mg/dL 70-110 N BASIC METABOLIC IXCOB6319-65-86 06:24:00* Test Item Value Reference Range Interpretation [...] CA) 8.8 MG/DL 8.5-10.1 N GLUCOSE BEDSIDE WINZKBT0130-19-66 17:01:00* Test Item Value Reference Range Interpretation Comme nts GLUCOSE BEDSIDE TESTING (matt t code = GLUBED) 220 mg/dL 70-110 H GLUCOSE BEDSIDE MBKETSM8786-34-81 11:37:00* Test Item Value Reference Range Interpretation Comme nts GLUCOSE BEDSIDE TESTING (matt t code = GLUBED) 86 mg/dL 70-110 N GLUCOSE BEDSIDE TENADQR4792-14-73 08:10:00* Test Item Value Reference Range Interpretation Comme nts GLUCOSE BEDSIDE TESTING (matt t code = GLUBED) 86 mg/dL 70-110 N BASIC METABOLIC DKEEX6911-42-15 05:12:00* Test Item Value Reference Range Interpretation [...] CA) 8.6 MG/DL 8.5-10.1 N BASIC METABOLIC GEKQO6195-50-28 05:07:00* Test Item Value Reference Range Interpretation [...] CA) 8.6 MG/DL 8.5-10.1 N GLUCOSE BEDSIDE CBYVJVF7349-53-94 20:21:00* Test Item Value Reference Range Interpretation Comme nts GLUCOSE BEDSIDE TESTING (matt t code = GLUBED) 119 mg/dL 70-110 H - CT HEAD/BRAIN W/O [id number] 18:46:00 [facility] 1955 Sex: M Name: RADHA MARMOLEJO [facility] : 1955 Age/S: 65 / M [address] [address] [place] Unit #: [id number] Loc: [place] [address] Phys: Michele Thompson MD Acct: [id number] Dis Date: Status: ADM IN PHONE #: [phone] Exam Date: 12/10/2020 1843 FAX #: Reason: decrease loc since yesterday EXAMS: CPT: [id number] HEAD/BRAIN W/O CONT 61397 EXAM: CT BRAIN WITHOUT CONTRAST INDICATION: decrease [...] ischemic changes and diffuse cerebral volume loss. Recreational Leader adán lacunar infarct in the right black radiata. LOCATION: B2 This CT exam was performed according to our departmental dose optimization program, which includes automated exposure control, adjustmentof the mA and or kV according to patient size and/or use of iterative reconstruction technique. at 1846 Reported and signed by: Kelsie Nielsen M.D. PAGE 1 Signed Report (CONTINUED) Name: RADHA MARMOLEJO [facility] : 1955ge/S: 65 / M [address] [address] [place] Unit #: [id number] Loc: [place] [address] Phys: Sameer Thompson MD Acct: [id number] Dis Date: Status: ADM IN PHONE #: [phone] Exam Date: 12/10/2020 184 FAX #: Reason: decrease loc since yesterday EXAMS: CPT: [id number] CT HEAD/BRAIN W/O CONT 84287 (Continued) CC: Michele Thompson MD; Pj Brooks MD Technologist:Sherlyn White RT(R)(CT); En CTDI: DLP: Trnscb Date/Time: 12/10/2020 (1845) JeriMD16 Orig Print D/T: S: 12/10/2020 (184) PAGE 2 Signed Report- DUP EXTRACRANIAL [id number] 14:30:00 [facility] : 1955 Sex: M Name: RADHA MARMOLEJO [place] : 1955 Age/S: 65 / M [address] [address] [place] Unit #: [id number] Loc: [place] [address] Phys: Pj Brooks MD Acct: [id number] Dis Date: Status: ADM IN PHONE #: [phone] Exam Date: 12/10/2020 1400 FAX #: Reason: ISCHEMIC STROKE EXAMS: CPT: [id number] DUP EXTRACRANIAL [place]INE[place] [address] Dictation location A1 Carotid Doppler Ultrasound HISTORY: [...] Gege Wilson M.D. CC: Pj Brooks MD Techno logist: Nicole Kokiabdelrahmanq Trnscb Date/Time: 12/10/2020 (1430) JeriPXC PAGE 1 Signed Report Name: RADHA MARMOLEJO [place] : 1955 Age/S: 65 / M [address] [address] [place] Unit #: [id number] Loc: [place] [address] Phys: Pj Brooks MD Acct: [id number] Dis Date: Status: ADM IN PHONE #: Exam Date: 12/10/2020 1400 FAX #: Reason: ISCHEMIC STROKE EXAMS: CPT: [id number] DUP EXTRACRANIAL [place] 71486 (Continued) Orig Print D/T: S: 12/10/2020 (1433) Probe: PAGE 2 Signed ReportGLYCOSYLATED HEMOGLOBIN UEHOS7667-56-97 11:30:00* Test Item Value Reference Range Interpretation Comme nts GLYCOSYLATED HEMOGLOBIN (HA1 C) (test code = GLYHGB) 5.8 % A1C 0.0-5.7 H ESTIMATED AVERAGE GLUCOSE (t est code = EAG) 120 MG/DLest COMPREHENSIVE METABOLIC [id number] 11:29:00* Test Item Value Reference Range Interpretation [...] interpret this result as normal/abnormal. 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 - MRI BRAIN W/O JUPQNPFI3095-67-64 16:59:00 [facility] : 1955 Sex: M FAX: Pj Dubon MD [phone] Camps: PM St: ADM Name: RADHA MAMROLEJO [facility] : 1955 Age/S: 65/M [address] [facility] [place] Unit #: [id number] Loc: [place] [address] Phys: Pj Brooks MD Acct: [id number] Dis Date: Status: ADM IN PHONE #: [phone] Exam Date: 12/09/2020 1650 FAX #: Reason: r/o CVAEXAMS: CPT: [id number] MRI BRAIN W/O CONTRAST 16331 EXAM: MRI BRAIN WITHOUT CONTRAST INDICATION: CVACOMPARISON: CT head dated December 09, 2020 TECHNIQUE: Multiplanar, multisequence MRI of the brain was obtained without administration of intravenous contrast. IV contrast: None FINDINGS: There is a small focus of restricted diffusion in the right thalamus with corresponding hyperintense T2 changesconsistent with early subacute lacunar infarct. There are [...] Technologist: Sherlyn White, RT(R)(CT) Transcribed Date/Time/By: 12/09/2020 (3522) :JeriMD16 Orig Print D/T: S: 12/09/2020 (1780) PAGE 1 Signed ReportUR PROTEIN [id number] 15:35:00* Test Item Value Reference Range Interpretation Comme nts UR PROTEIN TOTAL (test code = PROTU) 19.3 MG/DL 0.0-12.0 H UR CREATININE [id number] 15:35:00* Test Item Value Reference Range Interpretation Comme nts UR CREATININE RANDOM (test c ode = CREATU) 97.1 MG/DL 30-125 N - US RETRO ELS3247-94-72 15:10:00 [facility] 1955 Sex: M Name: RADHA MARMOLEJO [facility] : 1955 Age/S: 65 / M [address] [address] [place] Unit #: [id number] Loc: [place] [address] Phys: Gamal Rudd MD Acct: [id number] Dis Date: Status: ADM IN PHONE #: [phone] Exam Date: 12/09/2020 1500 FAX #: Reason: evalm of kidney size and echogenicity for ckd EXAMS: CPT: [id number] Inkive [address] Location of dictation: B2 ULTRASOUND OF THE [...] MD; Gamal Rudd MD Technologist: Nicole Landin Trnwib Date/Time: 12/09/2020 (1510) JeriPX PAGE 1 Signed Report Name: RADHA MARMOLEJO [place] : 1955 Age/S: 65 / M [address] [address] [place] Unit #: [id number] Loc: [place] [address] Phys: Gamal Rudd MD Acct: [id number] Dis Date: Status: ADM IN PHONE #: [phone] Exam Date: 12/09/2020 1500 FAX #: Reason: evalm of kidney size and echogenicity for ckd EXAMS: CPT: [id number] Inkive 02171 (Continued) Orig Print D/T: S: 12/09/2020 (1514) Probe: PAGE 2 Signed ReportUA RFLX MICR CULT IF INDICATED 2020-12-09 08:20:00* [...] Indication for culture: Dysuria/Frequency- XR SHOULDER 2+V [id number] 08:19:00 [facility] 1955 Sex: M Name: RADHA MARMOLEJO : 1955 Age/S: 65 / M [address] [address] [place] Unit #: [id number] Loc: [place] [address] Phys: Mode Duran MD Acct: [id number] Dis Date: Status: REG ER PHONE #:[phone] Exam Date: 12/09/2020 0815 FAX #: Reason: trauma EXAMS: CPT: [id number] XR SHOULDER 2+[place] [address] Fluoro Time: DAP (Gy m2): Air Kerma [...] MARMOLEJO : 1955 Age/S: 65 / M [address] [address] [place] Unit #: [id number] Loc: [place] [address] Phys: Mode Duran MD Acct: [id number] Date: Status: REG ER PHONE #: [phone] Exam Date: 12/09/2020 0815 FAX #: Reason: trauma EXAMS: CPT: [id number] XR SHOULDER 2+[place] [address] Fluoro Time: DAP (Gy m2): Air Kerma (mGy): (Continued) Technologist: Dominguez Molina, RT(R)(CT) Trnscb Date/Time: 12/09/2020 (818) JeriPXC Orig Print D/T: S: 12/09/2020 (821) PAGE 2 Signed ReportBASIC METABOLIC [id number] 08:11:00 * Test Item Value Reference Range Interpretation Comme [...] 8.6 MG/DL 8.5-10.1 N Completed by Nursing: APXCYFOPZJ-A8869-88-11 08:11:00* Test Item Value Reference Range Interpretation [...] may varyby method. Completed by Nursing: NOPROTHROMBIN NPSC2369-35-56 07:54:00* Test Item Value Reference Range Interpretation Comme nts PT PATIENT (test code = PTP) 11.7 SECONDS 9.3-12.9 N INTERNATIONAL NORMAL RATIO (test code = INR) 1.04 INR Unit 0.8-1.2 N THROMBOPLASTIN TIME QNGZKIX6137-17-00 07:54:00* Test Item Value Reference Range Interpretation Comme nts THROMBOPLASTIN TIME PARTIAL (test code = PTT) 33.0 SECONDS 26-35 N - CT HEAD/BRAIN W/O [id number] 07:48:00 [facility] 1955 Sex: M Name: RADHA MARMOLEJO [facility] : 1955 Age/S: 65 / M [address] [address] [place] Unit #: [id number] Loc: [place] [address] Phys: Mode Duran MD Acct: [id number] Dis Date: Status: PRE ER PHONE #: [phone] Exam Date: 12/09/2020 0737 FAX #: Reason: Code Stroke EXAMS: CPT: [id number] CT HEAD/BRAIN W/O CONT 95547 EXAM: - CT HEAD/BRAIN W/O CONT INDICATION: [...] evidence of acute territorial infarct, or intracranial hemorr kannan seen. No mass effect, midline shift or [...] De Oliveira M.D. PAGE 1 Signed Report (ADAM NUED) Name: RADHA MARMOLEJO [facility] : 1955 Age/S: 65 / M [address] [address] [place] Unit #: [id number] Loc: [place] [address] Phys: Mode Duran MD Acct: [id number] Dis Date: Status: PREER PHONE #: [phone] Exam Date: 12/09/2020 0737 FAX #: Reason: Code Stroke EXAMS: CPT: [id number] CT HEAD/BRAIN W/O CONT 22097 (Continued) CC: Mode Duran MD Technologist:Lewis See, RT(R) CTDI: DLP: Trnscb Date/Time: 12/09/2020 (0748) t.ALYSAR.AH26 Orig Print D/T: S: 12/09/2020 (0751) PAGE 2 Signed ReportCBC W/O TTMQ6324-29-20 07:47:00* Test Item Value Reference Range Interpretation [...] Notes Date/Time Note Provider Source 2023-08-02 15:00:00 5BmnO9xFrEvDXHLlQD+la775tJw7RvWYErWeITa+ 4qpOQLf0zKkFiKS0Xg7OeeS95604-59-70J86:00 :00Addended by: LEWIS MCCARTY on: 08/02/2023 04:02 PMModules accepted: Orders 56235-3Kqzsswdu CyaqzydtHO3729-53-89S91:02:16Addendum DocumentTXT1.2.840.662983.1.13.589.2.7.2 .342796|699037762EHJifjtzczx for patient qgrr46263-7DwfkLJMJGTPMYLJZqwbrxfhh C-CDA narrative textUTHEPIThe [facility] Center[address] #5471POHWGDBAYQTSEOTJWV5710232088TWEMKTN EPZVQESZLPH1887-07-12E47:02:161.2.840.11 4350.1.72.3.15|1.2.840.124870.1.13.589.2 .7.2.727879_480083739 [facility] 2020-12-13 08:07:00 YCjsivzsrsd25618486L79T1u1mHmk8bxZLLIbXK 8yH1fsuZN6WVdgEnhEDgL0yMxtUUBdYQ3AE5Y5RY abo3934-87-15I55:07:00 [facility] ([facility])Nephrology Progress NoteREPORT#:[id number] REPORT STATUS: SignedDATE:12/13/20 TIME:0807 PATIENT: DEBBIERADHA UNIT #: [id number]#: [id number] ROOM/BED: [facility]A522-5LHS: 53 AGE: 65 SEX: M ATTEND: Pj Brooks [facility] AUTHOR: Gamal Rudd MD * ALL edits [...] MG BID PO Sodium Chloride 1,000 ML .O71P11P IV Atorvastatin Calcium 80 MG 1700 PO [...] well, clear to auscultationAbdomen: non-tender, softExtremities: normal inspectionNeuro/DRAFTER DETAIL: alert, oriented X 3, CN II-XII intact, [...] after hospital discharge. at 0334 RPT #: [id number] OF REPORT PRProgress Sfoa8024-64-19H68:07:00L.AIXO27112160-23 07AVAvailable for patient yhwmKEYCAWEVKUKGYM0080-92-36C49:34:36 [facility] 2020-12-12 11:04:00 TXuebhnbdwz036570367+aQLC6KkpK3ftxut+eYI WZ0eFs302Lcu3mcrRSbwQK0HK9vkoAgrIVOu/3Em PORTUGUESE/1660-04-54B45:04:00 [facility])Nephrology Progress NoteREPORT#:[id number] REPORT STATUS: SignedDATE:12/12/20 TIME:1104 PATIENT: RADHA MARMOLEJO UNIT #: [id number]#: [id number] [facility] AGE: 65 SEX: M ATTEND: Pj Brooks [facility] AUTHOR: Ngoc Norman MD * ALL edits [...] well, clear to auscultationAbdomen: non-tender, softExtremities: normal inspectionNeuro/DRAFTER DETAIL: alert, oriented X 3, CN II-XII intact, [...] precautions on board. at 1106 RPT #: [id number] OF REPORT PRProgress Nfxp5494-09-29R76:04:00L.RBBW03540727-94 71AVAvailable for patient uhwpBZUUAJLMYGHZJD5111-20-95Q68:06:41 [facility] 2020-12-12 11:04:00 YZdjhrehvsf371114333QwXw0qFOFQWc/rT2/k4Q pUighJCSVjBkAsV9BTMk6xZGgX6BaeaaKeJYm2gT o0J1264-68-44M27:04:00 [facility] ([facility])Nephrology Progress NoteREPORT#:[id number] REPORT STATUS: SignedDATE:12/12/20 TIME:1104 PATIENT: RADHA MARMOLEJO UNIT #: [id number]#: [id number] [address] [birth year] AGE: 65 SEX: M ATTEND: Pj Brooks MDADM AUTHOR: Ngoc Norman MD * ALL edits [...] well, clear to auscultationAbdomen: non-tender, softExtremities: normal inspectionNeuro/DRAFTER DETAIL: alert, oriented X 3, CN II-XII intact, [...] IVF to 75cc/hr at 1121 RPT #: [id number] OF REPORT PRProgress Kmce9143-31-84R01:04:00L.DDHJ30964569-01 71AVAvailable for patient vbvkDIQBGDUXIAULOM3811-94-84E19:21:52 [facility] 2020-12-12 10:06:00 OUstassiubv70832302dwCNegLODyrh3jkKjAE1O mwQPNQkklPAW3PSlbcSGO70amvIZaffwjkDSg74B btp9934-15-69R20:06:00 [facility] ([facility])Hospitalist Progress NoteREPORT#:[id number] REPORT STATUS: SignedDATE:12/12/20 TIME:1006 PATIENT: RADHA MARMOLEJO UNIT #: [id number]#: [id number] ROOM/BED: [facility]L128-2OCX: 53 AGE: 65 SEX: M ATTEND: Pj [...] MG BID PO Sodium Chloride 1,000 ML .R98T91U IV Atorvastatin Calcium 80 MG 1700 PO [...] bladder distentionExtremities: moves all, no edemaMusculoskeletal: normal inspectionNeuro/DRAFTER DETAIL: alert, oriented X 3Skin: dry, no rashLymphatics: [...] and home PT at 1152 RPT #: [id number] OF REPORT PRProgress Bblx5627-87-78O26:06:00L.OUXM67312901-84 32AVAvailable for patient lksxZJDRBEDYYNBAHO9841-63-70C07:52:32 [facility] 2020-12-11 15:19:00 WNivjbqlxom81508478E0Q82bkX2UPQ2yI98zFmC LEMzc3dXKJBLPZyv+TElGfVurryb8PI6ugdHBU7f GLO4197-23-14F23:19:616896-5010 [facility] [address] [place] [address] PATIENT NAME: RADHA MARMOLEJO ADMIT DATE: 12/09/20ACCOUNT NO: [id number] ROOM NO: [place] [address] AGE: 65 REPORT TYPE: eECHOCARDIOGRAM REPORT SEX: M ADMITTING PHYSICIAN: Pj Brooks MD ATTENDING PHYSICIAN: Pj Brooks MD *[facility]*[address] [place] [id number] Transthoracic Echocardiogram Patient: Estela Marmolejo Date: 12/10/2020 BP: 155 / 86 [id number] 1955 Age: 65 Height: 70.9 in / 180 cmAccession#: [id number] Gender: M Weight: 144.7 lb / 65.8 kgBMI/BSA: 20.3 kg/m 2 / 1.84 m 2 *Ordering Physician: * Pj Brooks *Interpreting Physician: * Papo Toney MD*Defect Cutter: * Monique Lott Indicati ons: CVA. Study data: Transthoracic echocardiogram. Procedure: Transthoracicechocardiography was performed. Images were obtained using a [email or web address] cardiacultrasound machine. Image quality was adequate. Complete [...] 15:19 at 1519 PATIENT NAME: RADHA MARMOLEJO 3T15:19:00L.[id number] for patient wrriRFAOSEEAFTXOMK5398-07-96Z70:20:04 [facility] 2020-12-11 11:24:00 [id number]/Ah5SP7HpAwQYukzJg EJpLBQoT03PK+plPQYeYZerLc7HcaGTcvW3yn+Pu 3us5541-20-84G75:24:00 [facility] NoteREPORT#:[id number] REPORT STATUS: SignedDATE:12/11/20 TIME:1124 PATIENT: RADHA MARMOLEJO UNIT #: [id number]#: [id number] [address] [birth year] AGE: 65 SEX: M ATTEND: Pj Brooks MDADM AUTHOR: Ngoc Norman MD * ALL edits [...] well, clear to auscultationAbdomen: non-tender, softExtremities: normal inspectionNeuro/DRAFTER DETAIL: alert, oriented X 3, CN II-XII intact, [...] precautions on board. at 1107 RPT #: [id number] OF REPORT PRProgress Jxfe0321-39-29F90:24:00L.CBQB94695043-93 79AVAvailable for patient bylfJWALLOVCSTBLHD6960-40-55H84:08:11 [facility] 2020-12-11 10:09:00 QZirtevqlpn99260735xmkPSQ1V3eMoEVKlW5d/V i2p7FtnXle3SOIdpjtqIkGyo5eiygGbcb/15Lj9/ 4oS4999-35-38P87:09:00 [facility] ([facility])Hospitalist Progress NoteREPORT#:[id number] REPORT STATUS: SignedDATE:12/11/20 TIME:1009 PATIENT: RADHA MARMOLEJO UNIT #: [id number]#: [id number] ROOM/BED: NeidaRHI09-6CWZ: 53 AGE: 65 SEX: M ATTEND: Pj [...] Room air 12/11 0758 98 Room air 21 12/11 0455 97.1 66 18 148/82 104 98 Room air 12/11 0051 97.4 63 18 142/76 98 98 Room air 12/10 2046 97.8 70 18 151/81 104 97 Room air 12/10 2030 99 Room air 21 12/10 1604 97.8 64 20 119/98 105 [...] bladder distentionExtremities: moves all, no edemaMusculoskeletal: normal inspectionNeuro/DRAFTER DETAIL: alert, oriented X 3Skin: dry, no rashLymphatics: no lymphadenopathyPsychiatry: anxious ResultsFindings/Data:Laboratory Tests 12/11 0452013 1050 1050 Chemistry Sodium (134 - 147 [...] % (Auto) (20.5 - 51.1 %) 28.4 [place] % (Auto) (1.7 - 9.3 %) 10.4 H Eos % (Auto) (0.0 - 6.0 %) 3.8 Baso % (Auto) (0.0 - 2.0 %) 1.3 Neut # (Auto) (1.8 - 7.6 K/mm3) 3.8 Lymph # (Auto) (0.6 - 3.0 K/mm3) 1.9 [place] # (Auto) (0.2 - 1.5 K/mm3) 0.7 [...] Report Impression - Status: SIGNED Entered: 12/10/2020 0806 IMPRESSION:1. No hemodynamically significant stenosis demonstrated. 2. [...] to go home with home health at 1016 RPT #: [id number] OF REPORT PRProgress Ujny9804-93-57U87:09:00L.JGIG95907815-45 45AVAvailable for patient gmbhVIQNJHDOQQJBVB4833-62-69A44:16:21 [facility] 2020-12-10 08:47:00 IBeocnhvcic69247815dnj2G/IzTikgUFgCGJSTZ gz/qo9rm7/5tE0XhUqjNaHyVuui4S1cx5KV71ZiU R0M2239-74-10G62:47:00 [facility])Hospitalist Progress NoteREPORT#:[id number] REPORT STATUS: SignedDATE:12/10/20 TIME:0847 PATIENT: RADHA MARMOLEJO UNIT #: [id number]#: [id number] ROOM/BED: [place] [address]IYG43-9XRU: 53 AGE: 65 SEX: M ATTEND: Pj Brooks [facility] AUTHOR: Pj Brooks MD * ALL edits [...] bladder distentionExtremities: moves all, no edemaMusculoskeletal: normal inspectionNeuro/DRAFTER DETAIL: alert, oriented X 3Skin: dry, no rashLymphatics: [...] % (Auto) (20.5 - 51.1 %) 28.4 [place] % (Auto) (1.7 - 9.3 %) 10.4 H Eos % (Auto) (0.0 - 6.0 %) 3.8 Baso % (Auto) (0.0 - 2.0 %) 1.3 Neut # (Auto) (1.8 - 7.6 K/mm3) 3.8 Lymph # (Auto) (0.6 - 3.0 K/mm3) 1.9 [place] # (Auto) (0.2 - 1.5 K/mm3) 0.7 Eos # (Auto) (0.0 - 0.4 K/mm3) 0.3 Baso # (Auto) (0.0 - 0.2 K/mm3) 0.1 Abs Immat Gran (auto) (0.00 - 0.03 x10 3/uL) 0.01 Add Manual Diff (CRITERIA DIFF/SCN) NO Immature Gran % (0.0 - 5.0 %) 0.1 Nucleated RBC % (0.0 - 1.0 /100WBC%) 0.0 Laboratory Tests 12/09 1704 Serology SARS CoV-2 RNA Rapid NICOLE (Negative) Negative Radiology data:Recent Impressions:ULTRASOUND - US RETRO LTD 12/09 1444 Report Impression - Status: SIGNED Entered: 12/09/2020 1514 IMPRESSION:1. Hyperechoic kidneys.2. Simple cyst right kidney, multiple cysts versus severehydronephrosis left kidney.Impression By: Vivien Wilson M.D.[facility] - MRI BRAIN W/O CONTRAST 12/09 1605 Report Impression - Status: SIGNED Entered: 12/09/2020 170 IMPRESSION:Small early subacute lacunar infarct in the [...] about medication compliance at 1303 RPT #: [id number] OF REPORT PRProgress Dkfx5208-98-27D05:47:00L.DIIQ27549833-30 16AVAvailable for patient jbnpYCWSLMTGJKCSZY5220-90-86L06:03:52 [facility] 2020-12-10 07:25:00 LRfqozeeunh38865086+LoP/niwfTphakIgtoDx+ RPtL54jH6gjGWF2inBzgoN+nxv7A2Ts8TmpKbKv/ 9FM6709-54-22H66:25:00 [facility] NoteREPORT#:[id number] REPORT STATUS: SignedDATE:12/10/20 TIME:724 PATIENT: RADHA MARMOLEJO UNIT #: [id number]#: [id number] ROOM/BED: PNS26-5ZJM: 53 AGE: 65 SEX: M ATTEND: Pj Brooks MDADM AUTHOR: Gamal Rudd MD * ALL edits or amendments must be made on the electronic/computer document * SubjectiveChief Complaint:frequent falls and weakness. seen today.feels better. Objective GeneralVS/I O:Vital Signs: Date Time Temp Pulse Resp B/P B/P Pulse O2 O2 Flow FiO2 Mean Ox Delivery Rate 12/10 0400 97.1 70 16 155/86 109 97 12/10 0301 74 169/84 119 97 12/09 2323 98.5 12/09 232 74 166/85 117 94 12/09 2005 98.5 [...] well, clear to auscultationAbdomen: non-tender, softExtremities: normal inspectionNeuro/DRAFTER DETAIL: alert, oriented X 3, CN II-XII intact, [...] precautions on board. at 2226 RPT #: [id number] OF REPORT PRProgress Zmly1927-05-84B53:25:00L.EYYT97255239-58 09AVAvailable for patient yejyEYCKOXFHLLWRPU9510-75-62N24:26:54 [facility] 2020-12-09 18:10:00 OLpnzgbzkom52887939WreTXEJOHsVsV/rU3bUwh gRPyniS5dLgFhQ2hopd3jlQh0/bzO8wLYp1HGgkc ZHk9865-12-22G65:10:00 [facility] ([facility])Neurology Consultation NoteREPORT#:[id number] REPORT STATUS: SignedDATE:12/09/20 TIME:1810 PATIENT: RADHA MARMOLEJO UNIT #: [id number]#: [id number] ROOM/BED: [place] [address]ESG39-5KRZ: 53 AGE: 65 SEX: M ATTEND: Pj Brooks AUTHOR: Michele Thompson MD * ALL edits [...] 12/09 1230 O2 Delivery Room air 12/09 0720 PATIENT WEIGHT: Weight (lb): Weight (oz): Weight [...] (0.8 - 1.2 INR Unit) 1.04 PTT ([place]) (26 - 35 SECONDS) 33.0 PT Patient/Control [...] - 7.0 pH UNITS) 6.0 Ur Specific [place] (1.005 - 1.030 SG) 1.010 Urine Protein [...] for the consult. at 1759 RPT #: [id number] OF REPORT QIJgkdrgloyzxh9165-84-70P85:10:00L.PDOC2 [id number] for patient bvblPTJJOHTTLRHBCH8502-19-83W14:59:48 [facility] 2020-12-09 13:57:00 XIysbdglnpn30592548ksDVjFZzmZ4ntMdFEzagG k2yNpRJEn0e0s1WvLAmmq4qNNkNy1F7nvuFpymgZ Z/r7296-70-11X49:57:00 [facility] ([facility])Nephrology Consultation NoteREPORT#:[id number] REPORT STATUS: SignedDATE:12/09/20 TIME:1357 PATIENT: RADHA MARMOLEJO UNIT #: [id number]#: [id number] ROOM/BED: EKD86-7FNR: 53 AGE: 65 SEX: M ATTEND: Pj Brooks AUTHOR: Gamal Rudd MD * ALL edits [...] Admin Amlodipine Besylate 5 MG DAILY 12/10 899 AC (NORVASC) PO 01/09 859 Carvedilol 12.5 MG BID@0900,2100 12/10 899 AC (COREG) PO 01/10 0859 Hydralazine HCl 20 MG Q6H PRN [...] Sodium Chloride 1,000 ML X1ED STA 12/09 728 DC 12/09 (0.9% Sodium IV 12/09 828 0744 Chloride) Gastrointestinal Drugs Sig/Tio Start time [...] well, clear to auscultationAbdomen: non-tender, softExtremities: normal inspectionNeuro/DRAFTER DETAIL: alert, oriented X 3, CN II-XII intact, [...] precautions on board. at 0307 RPT #: [id number] OF REPORT BEEfdfqcruizmf2220-07-17G48:57:00L.PDOC2 [id number] for patient rskiLUZUKEJBWZLQHN5600-67-71U69:07:28 [facility] 2020-12-09 10:16:00 LQascijiauc65001215iW05r/QC1udTLqNYTF/e0 HRsowpRz4ptUxV9GofnpC/6UDkE3x780zsEwqzvA 3ui0420-08-03S75:16:00 [facility] ([facility])Hospitalist History PhysicalREPORT#:[id number] REPORT STATUS: SignedDATE:12/09/20 TIME:1016 PATIENT: RADHA MARMOLEJO UNIT #: [id number]#: [id number] ROOM/BED: [place]DOB: [birth year] AGE: 65 SEX: M ATTEND: Pj [...] Ox 99 12/09 0759 B/P 173/91 12/09 0720 B/P Mean 118 12/09 0720 O2 Delivery Room air 12/09 719 Temp 98.1 12/09 719 Pulse 82 12/09 0720 Resp 16 12/09 0720 Patient Weight and BMI Weight (kg): 65.909 BMI: 20.3 General appearance: alert, awakeHead/Eyes: atraumatic, normocephalicENT: dry mucosal membraneNeck: supple/no meningismusCardiovascular: normal heart sounds, regular rate rhythmRespiratory: aerating well, symmetric expansion, no distressAbdomen: soft, no distentionGenitourinary: no bladder distentionExtremities: moves all, no edemaMusculoskeletal: normal inspectionNeuro/DRAFTER DETAIL: alert, oriented X 3Skin: dry, no rashLymphatics: [...] (0.8 - 1.2 INR Unit) 1.04 PTT ([place]) (26 - 35 SECONDS) 33.0 PT Patient/Control [...] - 7.0 pH UNITS) 6.0 Ur Specific [place] (1.005 - 1.030 SG) 1.010 Urine Protein [...] the left shoulder.Impression By: Vivien Wilson M.D. Diagnosis, Assessment PlanProblem List/A P: [...] code for now at 1419 RPT #: [id number] OF REPORT HPHistory and physical vaxrrdpzrxy8135-36-13U62:16:00L.SBWF0763 0211-0053AVAvailable for patient ptakNENKYNIPNTHSPU2960-22-97U38:19:33 [facility] 2020-12-09 07:36:00 VYqsnpsdwet49238875fKjypqTg66cR7IAxYhZhq 1N3cJaK5ZJWySFNcNiHyR/VZpjDIhufmCRFWf9ps Rqo6412-69-09E13:36:00 [facility] ([facility])EMERGENCY PROVIDER REPORTREPORT#:[id number] REPORT STATUS: SignedDATE:12/09/20 TIME:735 PATIENT: RADHA MARMOLEJO UNIT #: [id number]#: [id number] [facility] [place] AGE: 65 SEX: M PCP PHYS: [...] NL Interpretation Diagnostics Lab Results InterpretationResultsLaboratory Tests 12/09/20729:[Embedded Image Not Available]Laboratory Tests: 12/09 12/09 12/09 [...] - 7.0 pH UNITS) 6.0 Ur Specific [place] (1.005 - 1.030 SG) 1.010 Urine Protein [...] M.D.RADIOLOGY - XR SHOULDER 2+V LT 12/09 804 Report Impression - Status: SIGNED Entered: 12/09/2020821 [...] HCl 20 MG Q6H PRN PRN 12/09 0915 AC IV 03/13 0914 Central Nervous System Agents Sig/Tio Start time [...] Result Date Time Pulse Ox 100 12/09 0720 B/P 173/91 12/09 0720 B/P Mean 118 12/09 0720 O2 Delivery Room air 12/09 0720 Temp 36.7 12/09 0720 Pulse 82 / 0720 Resp 16 12/09 0720 Last Documented: Result Date Time Pulse Ox 98 12/09 0830 B/P 175/82 12/09 0830 B/P Mean 113 12/09 0830 Pulse 76 12/09 0830 Resp 18 12/09 0830 O2 Delivery Room air 12/09 0720 Temp 36.7 12/09 0720 All vital signs available at the time of this entry have been reviewed. Condition Stable Clinical ImpressionClinical ImpressionPrimary Impression: Generalized weaknessSecondary Impressions: Frequent fallsTime of Impression 09 Disposition DecisionAdmit Admit Physician Name Pj Brooks MD Admit Physician Hospitalist Request Time 918 Request Date 12/09/20 )( Admission Accepts Yes )( Accepted Time 918 )( Accepted Date 12/09/20 Call Information will see patient, agrees with eval, agrees with plan at 1804 RPT #: [id number] OF REPORTEDEmergency department jvvycl7075-02-86D55:36:00L.WDOW51558622- 0007AVAvailable for patient nzwrHRIBXZTUCDENKV8655-28-64T75:05:10 [facility] 2020-12-09 07:26:00 DSvgtdnhgop47103777vwUMs+EefkM6Ypgec+UW7 5SprTA+B2fmBQ74XryhC8yZCtuCY16fj89Ift4xr UIp7434-52-13F17:26:792270-9853 [facility] [address] [place] [address] PATIENT NAME: RADHA MARMOLEJO ADMIT DATE: 12/09/20ACCOUNT NO: [id number] ROOM NO: [facility] AGE: 65 REPORT TYPE: eELECTROCARDIOGRAM SEX: M ADMITTING PHYSICIAN: Pj Brooks MD ATTENDING PHYSICIAN: Pj Brooks MD Order:[id number] Reason : (Not Selected) Test Date/Time Stamp:SunDec 09 2020 07:26:10Blood Pressure : 173/091 mmHGVent. Rate : 081 BPM Atrial Rate : 081 BPM P-R Int : 140 ms QRS Dur : 080 ms QT Int : 366 ms P-R-T Axes : 078 014 061 degrees QTc Int : 425 ms Normal sinus rhythmNormal ECGNo previous ECGs availableConfirmed by MD Arabella, Lashaun ([id number]) on 12/25/2020 2:18:17 PM Referred By: Self Referred Confirmed by:Lashaun Bell MD at 1418 PATIENT NAME: RADHA MARMOLEJO .[id number] for patient aejuZKTMBRHYPCFUOG8833-81-40M48:18:36 [facility]"
[2024-02-01 21:40] LABS: Absolute Basophils 0.1 K/uL (0-0.5); Absolute Eosinophils 0.2 K/uL (0-0.5); Absolute Lymphocytes (CBC) 3.6 K/uL (0.7-4.9); Absolute Monocytes 0.8 K/uL (0.1-1.3); Absolute Neutrophil 2.8 K/uL (1.8-8.0); Basophils % 0.8 % (0-1.3); Eosinophils % 3.1 % (0-4.4); Hemoglobin 12.2 g/dL (13.6-17.9); MCH 27.5 pg (27.0-35.0); MCHC 32.2 g/dL (32.0-36.0); MCV 85.2 fL (80-100); MPV 10.2 fL (7.6-11.3); Monocytes % 10.7 % (3.3-12.3); Neutrophils % 37.4 % (41.7-73.7); Nucleated Red Blood Cells % 0.1 % (0-0); Platelets 210 thou/uL (152-406); RBC Red Blood Cell Count 4.45 M/uL (4.33-5.43); Red Cell Distribution Width 16.7 % (12.1-15.2)
[2024-02-01 21:52] LABS: ALT/SGPT < 10 U/L (16-61); AST/SGOT 10 U/L (15-37); Albumin 3.1 g/dL (3.4-5.0); Albumin/Globulin Ratio 0.8 (1.1-1.8); Alkaline Phosphatase 117 U/L (45-117); Anion Gap 7.9 mEq/L (5.0-15.0); BUN Blood Urea Nitrogen 26 mg/dL (7-18); Bicarbonate 22 mEq/L (21-32); Bilirubin Total 0.5 mg/dL (0.2-1.0); Globulin 3.7 g/dL (2.3-3.5); Glomerular Filtration Rate 39 ml/min (=/>90); Glucose Level 90 mg/dL (74-106); Lipase 77 U/L (13-75); Potassium 3.9 mEq/L (3.5-5.1); Protein, Total 6.8 g/dL (6.4-8.2); Sodium Level 140 mEq/L (136-145)
--- NOTE | 2024-02-01 22:45 | RAD REPORT ---
EXAM DESCRIPTION: CTAbdomen Pelvis Wo Contrast - 02/01/2024 10:27 pm CLINICAL HISTORY: ABD PAIN COMPARISON: Stone Protocol dated 11/01/2022; Stone Protocol dated 10/23/2022; Abdomen Pelvis Wo Cont rast dated 10/11/2022; CTSTONE PROTOCOL dated 04/05/2013 TECHNIQUE: CT of the abdomen and pelvis was performed. All CT scans are performed using dose optimization technique as appropriate and may include automated exposure control or mA/KV adjustment according to patient size. FINDINGS: Lower chest: No acute abnormality. Liver: 5 mm hypoattenuating lesion in the hepatic dome is unchanged and almost certainly benign. Biliary: No biliary ductal dilatation. Stomach: No significant focal abnormality. Duodenum: No significant focal abnormality. Pancreas: No significant abnormality. Spleen: No significant abnormality. Adrenal: No suspicious lesions. Kidney/ureter: Chronic severe left-sided hydronephrosis with severe renal cortical thinning. This may be secondary to UPJ obstruction. The left ureter is nondilated. Several incompletely characterized r ight renal lesions are noted. Most of which are consistent with cysts. Right ureteral fullness but no hydronephrosis. Retroperitoneum: No retroperitoneal adenopathy. Vascular: No aneurysm. Mild atherosclerosis. Bowel: Moderate rectal stool. No appendicitis. Peritoneum: No ascites or free air. Small fat containing right inguinal hernia. Bladder: Grossly unremarkable. Reproductive: Fiducial markers at the prostate. Bones: No acute fracture. Other: n/a IMPRESSION: No acute intra-abdominal or pelvic finding. Chronic severe left-sided hydronephrosis. No rmal appendix. Right ureteral fullness which may be from a patulous ureter as a result of prior obstr uction and instrumentation. No obstructing stone or mass. .
[2024-02-02 00:01] LABS: Specific Gravity 1.011 (1.005-1.030); Sqamous Epithelial <5 /HPF (None Seen); Urine Bacteria None Seen /HPF (<20); Urine Bilirubin NEGATIVE (Negative); Urine Blood Negative (Negative); Urine Clarity Clear (Clear); Urine Color Colorless (Yellow); Urine Culture Reflex Order NOT NEEDED; Urine Glucose NEGATIVE (Negative); Urine Ketones NEGATIVE (Negative); Urine Microscopic Reflex YN ORDER UMIC; Urine Nitrite NEGATIVE (Negative); Urine Protein NEGATIVE (Negative); Urine RBC <5 /HPF (None Seen); Urine Urobilinogen Normal (Normal); Urine WBC <5 /HPF (<5); Urine pH 6.5 (5.0-7.0)
--- NOTE | 2024-02-02 00:07 | ER ---
Nurse's Notes [facility] Name: Channing Marmolejo Age: 68 yrs Sex: Male : 1955 Arrival Date: 02/01/2024 Time: 21:11 Bed 5 Private MD: Diagnosis: Abdominal pain, unspecified Presentation: 01/31 21:16 Chief complaint:. Chief complaint: EMS states: family called EMS for pt with right bm8 lower abd pain. Coronavirus screen: At this time, unable to obtain information related to travel outside the [place] At this time, the client does not indicate any symptoms associated with coronavirus-19. Ebola Screen: Patient negative for fever greater than or equal to 101.5 degrees Fahrenheit, and additional compatible Ebola Virus Disease symptoms Patient denies exposure to infectious person. Patient denies travel to an Ebola-affected area in the 21 days before illness onset. No symptoms or risks identified at this time. Initial Sepsis Screen: Does the patient meet any 2 criteria? No. Patient's initial sepsis screen is negative. Does the patient have a suspected source of infection? No. Patient's initial sepsis screen is negative. Risk Assessment: Do you want to hurt yourself or someone else? Patient reports no desire to harm self or others. Onset of symptoms was February 01, 2024 at 18:00. 21:16 Method Of Arrival: EMS: [facility] bm8 21:16 Acuity: KANWAL 3 bm8 Triage Assessment: 21:19 General: Appears in no apparent distress. comfortable, Behavior is calm, cooperative, bm8 appropriate for age. Pain: Denies pain. EENT: No deficits noted. No signs and/or symptoms were reported regarding the EENT system. Neuro: Level of Consciousness is awake, alert, obeys commands, Oriented to person, situation, pt has mild weakness on right side from previous stroke. family states that he is at his normal baseline. Cardiovascular: No deficits noted. Denies chest pain, shortness of breath, Capillary refill < 3 seconds Clubbing of nail beds is present Patient's skin is warm and dry. Respiratory: No deficits noted. Airway is patent Respiratory effort is even, unlabored, Respiratory pattern is regular. GI: Reports lower abdominal pain. : Historical: - Home Meds: 21:19 amlodipine 10 mg tab once daily [Active]; aspirin 81 mg Oral tab daily [Active]; bm8 atorvastatin 40 mg Oral tab 1 tab once daily [Active]; Carbidopa-Levodopa Oral 3 times per day [Active]; carvedilol 12.5 mg Oral tab every 12 hours [Active]; Cipro Oral [Active]; clopidogrel 75 mg Oral tab once daily [Active]; donepezil 5 mg Oral tab twice a day [Active]; ergocalciferol (vitamin D2) 50 Oral tab every sunday at 0800 [Active]; Folic Acid Oral [Active]; Phenazopyridine Oral [Active]; tamsulosin 0.4 mg Oral cap once daily [Active]; - PMHx: 21:19 Carotid artery blockage; CVA; COPD; Hypertension; Parkinson's disease; TOMMIE; Seizure; bm8 - PSHx: 21:19 Bladder Stent; bm8 - Immunization history:: Adult Immunizations unknown. - Infectious Disease History:: Denies. - Social history:: Smoking status: unknown. - Family history:: not pertinent. Screenin:24 [facility] ED Fall Risk Assessment (Adult) History of falling in the last 3 months, bm8 including since admission No falls in past 3 months (0 pts) Confusion or Disorientation No (0 pts) Intoxicated or Sedated No (0 pts) Impaired Gait Yes (1 pt) Mobility Assist Device Used Yes (1 pt) Altered Elimination No (0 pt) Score/Fall Risk Level 3 or more points = High Risk Oriented to surroundings, Maintained a safe environment, Educated pt \T\ family on fall prevention, incl call for assistance when getting out of bed, Assessed \T\ reinforced patient's understanding of fall precautions. Abuse screen: Denies threats or abuse. Nutritional screening: No deficits noted. Tuberculosis screening: No symptoms or risk factors identified. Assessment: 21:24 Reassessment: see triage assessment. bm8 23:57 Reassessment: Patient appears in no apparent distress at this time. Patient and/or bm8 family updated on plan of care and expected duration. Pain level reassessed. Patient is alert, oriented x 3, equal unlabored respirations, skin warm/dry/pink. Patient denies pain at this time. General: Appears in no apparent distress. comfortable, Behavior is calm, cooperative, appropriate for age. Pain: Denies pain. Neuro: Level of Consciousness is awake, alert, obeys commands, Oriented to person, place, situation. Cardiovascular: No deficits noted. Denies chest pain, shortness of breath, Heart tones S1 S2 present. Respiratory: Airway is patent Respiratory effort is even, unlabored, Respiratory pattern is regular, Breath sounds are clear bilaterally. GI: Abdomen is flat, non-distended, Bowel sounds present X 4 quads. Abd is soft and non tender X 4 quads. GI: No deficits noted. No signs and/or symptoms were reported involving the gastrointestinal system. : No deficits noted. No signs and/or symptoms were reported regarding the genitourinary system. : Urine is clear. EENT: No deficits noted. No signs and/or symptoms were reported regarding the EENT system. Derm: No deficits noted. No signs and/or symptoms reported regarding the dermatologic system. Musculoskeletal: No deficits noted. No signs and/or symptoms reported regarding the musculoskeletal system. Vital Signs: 21:16 BP 154 / 81; Pulse 65; Resp 21; Temp 98.3; Pulse Ox 100% on R/A; Pain 0/10; bm8 21:45 BP 153 / 77; Pulse 63; Resp 17; Pulse Ox 100% on R/A; cm10 22:00 BP 159 / 77; Pulse 67; Resp 18; Pulse Ox 100% on R/A; cm10 23:57 BP 158 / 95; Pulse 73; Resp 18; Temp 98.3; Pulse Ox 100% ; Pain 0/10; bm8 21:16 Pain Scale: Adult bm8 23:57 Pain Scale: Adult bm8 [place] Coma Score: 21:24 Eye Response: spontaneous(4). Motor Response: obeys commands(6). Verbal Response: bm8 oriented(5). Total: 15. ED Course: 21:14 Patient arrived in ED. jb4 21:14 Jun Russell MD is Attending Physician. rt 21:16 Ihsan Cummins, RN is Primary Nurse. bm8 21:17 Initial lab(s) drawn, by me, sent to lab. Inserted saline lock: 20 gauge in left cm10 forearm, using aseptic technique. Blood collected. 21:19 Triage completed. bm8 21:23 Arm band placed on right wrist. 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 21:24 Patient has correct armband on for positive identification. Placed in gown. Bed in low bm8 position. Call light in reach. Side rails up X 1. Adult w/ patient. equipment monitor phototypesetting on. Pulse ox on. NIBP on. Door closed. Noise minimized. Visitors limited. Verbal reassurance given. 22:29 Abdomen In Process Unspecified. EDMS 23:57 No provider procedures requiring assistance completed. bm8 02/01 00:16 IV discontinued, intact, bleeding controlled, No redness/swelling at site. Pressure bm8 dressing applied. 00:16 Provided Education on: discharge instructions. bm8 Administered Medications: No medications were administered Medication: 01/31 21:24 VIS not applicable for this client. bm8 Outcome: 02/01 00:07 Discharge ordered by . rt 00:16 Discharged to home via wheelchair, bm8 00:16 Condition: stable 00:16 Discharge instructions given to patient, family, Instructed on discharge instructions, follow up and referral plans. safety practices, Demonstrated understanding of instructions, follow-up care, medications, 00:17 Patient left the ED. bm8 Signatures: Dispatcher [employer] EDMS Rick Sutton, RN RN jb4 Jun Russell MD MD rt Lady Schmidt, RN RN cm10 Ihsan Cummins, RN RN bm8 Corrections: (The following items were deleted from the chart) 01/31 21:21 21:19 PMHx: TOMMIE; bm8 bm8 21:21 21:19 PMHx: TOMMIE; bm8 bm8 21:21 21:19 PMHx: TOMMIE; bm8 bm8
--- NOTE | 2024-02-02 00:07 | EDPHYS ---
Physician Documentation [facility] Name: Channing Marmolejo Age: 68 yrs Sex: Male : 1955 Arrival Date: 02/01/2024 Time: 21:11 Bed 5 Private MD: ED Physician Jun Russell HPI: 02/01 01:32 This 68 yrs old Black Male presents to ER via EMS with complaints of abdominal pain. rt 01:32 Patient presents to the ED with right lower quadrant pain starting today. Patient rt denies nausea, vomiting, diarrhea, other acute complaints, symptoms are moderate in severity, no other aggravating or alleviating factors.. Historical: - Home Meds: 01/31 21:19 amlodipine 10 mg tab once daily [Active]; aspirin 81 mg Oral tab daily [Active]; bm8 atorvastatin 40 mg Oral tab 1 tab once daily [Active]; Carbidopa-Levodopa Oral 3 times per day [Active]; carvedilol 12.5 mg Oral tab every 12 hours [Active]; Cipro Oral [Active]; clopidogrel 75 mg Oral tab once daily [Active]; donepezil 5 mg Oral tab twice a day [Active]; ergocalciferol (vitamin D2) 50 Oral tab every sunday at 0800 [Active]; Folic Acid Oral [Active]; Phenazopyridine Oral [Active]; tamsulosin 0.4 mg Oral cap once daily [Active]; - PMHx: 21:19 Carotid artery blockage; CVA; COPD; Hypertension; Parkinson's disease; TOMMIE; Seizure; bm8 - PSHx: 21:19 Bladder Stent; bm8 - Immunization history:: Adult Immunizations unknown. - Infectious Disease History:: Denies. - Social history:: Smoking status: unknown. - Family history:: not pertinent. ROS: 02/01 01:32 Constitutional: Negative for fever, chills, and weight loss, Cardiovascular: Negative rt for chest pain, palpitations, and edema, Respiratory: Negative for shortness of breath, cough, wheezing, and pleuritic chest pain, MS/Extremity: Negative for injury and deformity, Skin: Negative for injury, rash, and discoloration, Neuro: Negative for headache, weakness, numbness, tingling, and seizure, Abdomen/GI: Positive for abdominal pain, Negative for nausea, vomiting, and diarrhea, Exam: 01:32 Constitutional: This is a well developed, well nourished patient who is awake, alert, rt and in no acute distress. Head/Face: Normocephalic, atraumatic. Chest/axilla: Normal chest wall appearance and motion. Nontender with no deformity. No lesions are appreciated. Cardiovascular: Regular rate and rhythm with a normal S1 and S2. No gallops, murmurs, or rubs. Normal PMI, no JVD. No pulse deficits. Respiratory: Lungs have equal breath sounds bilaterally, clear to auscultation and percussion. No rales, rhonchi or wheezes noted. No increased work of breathing, no retractions or nasal flaring. Skin: Warm, dry with normal turgor. Normal color with no rashes, no lesions, and no evidence of cellulitis. MS/ Extremity: Pulses equal, no cyanosis. Neurovascular intact. Full, normal range of motion. Neuro: Awake and alert, GCS 15, oriented to person, place, time, and situation. Cranial nerves II-XII grossly intact. Motor strength 5/5 in all extremities. Sensory grossly intact. Cerebellar exam normal. Normal gait. 01:32 Abdomen/GI: Mild tenderness to the right lower quadrant, no rebound, guarding, distention, Vital Signs: 01/31 21:16 BP 154 / 81; Pulse 65; Resp 21; Temp 98.3; Pulse Ox 100% on R/A; Pain 0/10; bm8 21:45 BP 153 / 77; Pulse 63; Resp 17; Pulse Ox 100% on R/A; cm10 22:00 BP 159 / 77; Pulse 67; Resp 18; Pulse Ox 100% on R/A; cm10 23:57 BP 158 / 95; Pulse 73; Resp 18; Temp 98.3; Pulse Ox 100% ; Pain 0/10; bm8 21:16 Pain Scale: Adult bm8 23:57 Pain Scale: Adult bm8 Karla Coma Score: 21:24 Eye Response: spontaneous(4). Motor Response: obeys commands(6). Verbal Response: bm8 oriented(5). Total: 15. MDM: 21:14 Patient medically screened. rt 02/01 01:32 Differential diagnosis: UTI, appendicitis, bowel obstruction. Data reviewed: vital rt signs, nurses notes, lab test result(s), radiologic studies. I considered the following discharge prescriptions or medication management in the emergency department. Independent interpretation of the following test(s) in the Emergency Department CT Scan: My interpretation is No bowel obstruction syndrome interpretation of CT scan images. Care significantly affected by the following chronic conditions: Prior CVA. Counseling: I had a detailed discussion with the patient and/or guardian regarding the historical points, exam findings, and any diagnostic results supporting the discharge/admit diagnosis, lab results, radiology results, the need for outpatient follow up, to return to the emergency department if symptoms worsen or persist or if there are any questions or concerns that arise at home. Response to treatment: the patient's symptoms have markedly improved after treatment. 01/31 21:15 Order name: CBC with Diff; Complete Time: 22:47 rt 01/31 21:15 Order name: CMP; Complete Time: 22:47 rt 01/31 21:15 Order name: Lipase; Complete Time: 22:47 rt 01/31 21:15 Order name: Urinalysis w/ reflexes; Complete Time: 00:02 rt 01/31 22:11 Order name: Abdomen ; Complete Time: 22:47 EDMS 01/31 21:15 Order name: IV Saline Lock; Complete Time: 21:17 rt 01/31 21:15 Order name: Labs collected and sent; Complete Time: 21:17 rt Administered Medications: No medications were administered Disposition Summary: 02/02/24 00:07 Discharge Ordered Notes: Location: Home rt Problem: new rt Symptoms: have improved rt Condition: Stable rt Diagnosis - Abdominal pain, unspecified rt Followup: rt - With: Private Physician - When: 2 - 3 days - Reason: Discharge Instructions: - Discharge Summary Sheet rt - Abdominal Pain, Adult rt Forms: - Medication Reconciliation Form rt - Thank You Letter rt - Antibiotic Education rt - Prescription Opioid Use rt - Patient Portal Instructions rt - Leadership Thank You Letter rt Signatures: Dispatcher [employer] Jun Osorio MD MD rt Ihsan Cummins, RN RN bm8 Corrections: (The following items were deleted from the chart) 01/31 21:15 21:15 Abdomen Pelvis W Con+CT.RAD.BRZ ordered. [facility] 21:21 21:19 PMHx: TOMMIE; bm8 bm8 21:21 21:19 PMHx: TOMMIE; bm8 bm8 21:21 21:19 PMHx: TOMMIE; bm8 bm8
[2024-02-02 05:57] VITALS: BP 158/95; TEMP 98.3; O2SAT 100
== END 2024-02-02 00:17 | disposition home or self-care (01) ==
LOC: ER 21:11
DX: R10.31 Right lower quadrant pain (principal); I10 Essential (primary) hypertension; G20.A1 Parkinson's disease without dyskinesia, without mention of fluctuations; J44.9 Chronic obstructive pulmonary disease, unspecified; Z86.73 Personal history of transient ischemic attack (TIA), and cerebral infarction without residual deficits; Z79.82 Long term (current) use of aspirin
CPT/HCPCS: 36415; 74176; 80053; 81001; 83690; 85025; 99284

== ENCOUNTER 2024-06-14 00:16 | Inpatient (IN) | payer OTHER ==
[2024-06-14 01:43] LABS: Absolute Basophils 0.1 K/uL (0-0.5); Absolute Eosinophils 0.2 K/uL (0-0.5); Absolute Lymphocytes (CBC) 3.9 K/uL (0.7-4.9); Absolute Monocytes 0.7 K/uL (0.1-1.3); Absolute Neutrophil 4.1 K/uL (1.8-8.0); Eosinophils % 2.3 % (0-4.4); Hematocrit 43.1 % (39.6-49.0); Hemoglobin 13.5 g/dL (13.6-17.9); Lymphocytes % 43.2 % (15.3-44.8); MCH 27.1 pg (27.0-35.0); MCHC 31.4 g/dL (32.0-36.0); Monocytes % 8.2 % (3.3-12.3); Neutrophils % 45.3 % (41.7-73.7); PT Prothrombin Time 12.5 SECONDS (9.4-12.5); PTT, Activated Partial Thromb 33.8 SECONDS (24.3-36.9); Platelets 201 thou/uL (152-406); Protime INR 1.12; RBC Red Blood Cell Count 5.01 M/uL (4.33-5.43)
[2024-06-14 01:56] LABS: Anion Gap 7.9 mEq/L (5.0-15.0); Potassium 3.9 mEq/L (3.5-5.1); Troponin High Sensitivity 8.9 pg/mL (<58.9)
--- NOTE | 2024-06-14 02:04 | EDPHYS ---
Physician Documentation [facility] Name: Channing Marmolejo Age: 69 yrs Sex: Male : 1955 Arrival Date: 06/14/2024 Time: 00:16 Bed 17 Private MD: ED Physician Francisco Carreno HPI: 06/14 00:49 This 69 yrs old Black Male presents to ER via Wheelchair with complaints of Facial ec2 Droop, Facial Swelling. 00:49 Patient arrives today for possible right-sided facial droop. Symptom onset ec2 approximately 12 hours ago. Patient reportedly was having some facial droop as well as confusion which has since resolved. Family reports that he is at his baseline on arrival. History of stroke, is on Plavix.. Historical: - Allergies: 00:31 No Known Allergies; vc1 - Home Meds: 00:32 clopidogrel 75 mg Oral tab once daily [Active]; amlodipine 10 mg tab once daily vc1 [Active]; aspirin 81 mg Oral tab daily [Active]; atorvastatin 40 mg Oral tab 1 tab once daily [Active]; carvedilol 12.5 mg Oral tab every 12 hours [Active]; tamsulosin 0.4 mg Oral cap once daily [Active]; Phenazopyridine Oral [Active]; Folic Acid Oral [Active]; Carbidopa-Levodopa Oral 3 times per day [Active]; - PMHx: 00:31 TOMMIE; Carotid artery blockage; COPD; CVA; Hypertension; Seizure; Parkinson's disease; vc1 00:32 Dementia; vc1 - PSHx: 00:31 Bladder Stent; vc1 - Immunization history:: Client reports receiving the 2nd dose of the Covid vaccine. - Infectious Disease History:: Denies. - Social history:: Smoking status: Patient/guardian denies using tobacco. ROS: 00:49 Constitutional: as per hpi ec2 Exam: 00:49 Constitutional: GEN: NAD Head: atraumatic Eyes: EOMI Ears: External ears are ec2 normal. CV: regular rate LUNGS: no respiratory distress ABD: non-distended SKIN: no evidence of rashes MSK: no evidence of trauma. Neuro: No facial droop appreciated, cranial nerves II through XII intact, strength intact in the bilateral upper extremities and lower extremities. Vital Signs: 00:46 BP 215 / 73; Pulse 65; Resp 18; Temp 98; Pulse Ox 99% ; Pain 0/10; cp4 01:00 BP 197 / 78; Pulse 65; Resp 18; Pulse Ox 100% ; cp4 01:15 BP 188 / 89; Pulse 59; Resp 18; Pulse Ox 100% ; cp4 01:30 BP 202 / 75; Pulse 56; Resp 18; Pulse Ox 99% ; cp4 01:45 BP 211 / 79; Pulse 61; Resp 18; Pulse Ox 100% ; cp4 02:30 BP 179 / 74; Pulse 70; Resp 18; Pulse Ox 99% on R/A; pc2 02:45 BP 177 / 81; Pulse 61; Resp 18; Pulse Ox 99% on R/A; pc2 03:00 BP 170 / 67; Pulse 68; Resp 18; Pulse Ox 99% on R/A; pc2 03:30 BP 179 / 67; Pulse 63; Resp 16; Pulse Ox 99% on R/A; pc2 04:00 BP 160 / 83; Pulse 72; Resp 18; Pulse Ox 99% on R/A; pc2 00:46 Pain Scale: Adult cp4 NIH Stroke Scale Scores: 00:46 NIHSS Score: 0 cp4 MDM: 00:49 Patient medically screened. ec2 00:49 Data reviewed: vital signs. ED course: Patient arrives today due to concern for ec2 possible right-sided facial droop which is since resolved with the symptom onset of earlier this afternoon. Examination remarkable for neuro intact individuals otherwise in no acute distress with a reassuring examination. Shortly after my assessment, nursing had told me that patient had return of facial droop and subsequently called a code stroke.. 00:50 ED course: On reassessment patient has signs return back to baseline with symptom ec2 duration approximately 3 minutes.. 01:25 ED course: CT scan of the head on my interpretation shows no acute intracranial ec2 process.. 01:25 ED course: Patient is not a tPA/TNK candidate given the patient's intermittent symptoms ec2 and initial onset of greater than 4 and half hours ago. 01:28 ED course: CT angio head and neck showed no acute flow-limiting stenosis.. ec2 01:29 ED course: discussed case w/ radiologist. ec2 02:02 ED course: Metabolic profile shows renal dysfunction. CBC reassuring. Troponin within ec2 normal ranges. Will admit for TIA. Discussed case with hospitalist, pending admission. . 02:24 ED course: EKG independently reviewed and interpreted by me, shows normal sinus rhythm, ec2 rate of 66, no acute ST segment elevations, intervals are nonconcerning.. 06/14 00:47 Order name: Basic Metabolic Panel; Complete Time: 02:01 ec2 06/14 00:47 Order name: CBC with Diff; Complete Time: 02:01 ec2 06/14 00:47 Order name: High Sensitivity Troponin; Complete Time: 02:01 ec2 06/14 00:47 Order name: Protime (+inr); Complete Time: 02:01 ec2 06/14 00:47 Order name: Ptt, Activated; Complete Time: 02:01 ec2 06/14 01:04 Order name: Glucose, Ancillary Testing; Complete Time: 01:17 EDMS 06/14 02:07 Order name: CREATININE WHOLE BLOOD; Complete Time: 02:08 EDMS 06/14 00:47 Order name: CT Neck Angio ec2 06/14 00:47 Order name: CT Stroke Brain w/o Contrast ec2 06/14 00:47 Order name: Stroke CXR 1 View ec2 06/14 01:03 Order name: Head angio EDMS 06/14 00:47 Order name: EKG; Complete Time: 00:48 ec2 06/14 02:42 Order name: CONS Physician Consult EDMS 06/14 00:47 Order name: Accucheck; Complete Time: 01:07 ec2 06/14 00:47 Order name: Cardiac monitoring; Complete Time: 01:07 ec2 06/14 00:47 Order name: EKG - Nurse/Tech; Complete Time: 01:07 ec2 06/14 00:47 Order name: IV Saline Lock; Complete Time: 01:07 ec2 06/14 00:47 Order name: Labs collected and sent; Complete Time: 01:07 ec2 06/14 00:47 Order name: NPO; Complete Time: 01:07 ec2 06/14 00:47 Order name: O2 Per Protocol; Complete Time: 01:07 ec2 06/14 00:47 Order name: O2 Sat Monitoring; Complete Time: 01:07 ec2 06/14 00:47 Order name: Stroke Swallow Screen; Complete Time: 01:36 ec2 Administered Medications: 02:19 CANCELLED (Physician Discretion): [id number] mg IV at bolus once ec2 02:22 Drug: hydrALAZINE IVP 10 mg IVP once Route: IVP; Site: right upper arm; cp4 02:55 Follow up: Response: No adverse reaction; Blood pressure is lowered pc2 Point of Care Testing: Blood Glucose: 00:46 Blood Glucose: 93 mg/dL; cp4 Ranges: Critical Glucose Levels:Adult <50 mg/dl or >400 mg/dl <40 mg/dl or >180 mg/dl Disposition Summary: 06/14/24 02:03 Hospitalization Ordered Notes: Hospitalization Status: Inpatient Admission ec2 Provider: Randal Greene ec2 Location: Telemetry/MedSurg (Inpatient) ec2 Condition: Stable ec2 Problem: an ongoing problem ec2 Symptoms: have improved ec2 Bed/Room Type: Standard ec2 Room Assignment: 214(06/14/24 02:51) cg Diagnosis - Transient cerebral ischemic attack, unspecified ec2 - Essential (primary) hypertension ec2 Forms: - Medication Reconciliation Form ec2 - SBAR form ec2 - Leadership Thank You Letter ec2 NIH Stroke Scale - NIH Stroke Score Date: 06/14/2024 Time: 00:46 Total Score = 0 10. Dysarthria (speech clarity - read or repeat words) - 0(Normal) 11. Extinction and Inattention (visual/tactile/auditory/spatial/personal) - 0(No abnormality) 1a. Level of Consciousness (LOC) - 0(Alert) 1b. Level of Consciousness (LOC) (Month \T\ Age) - 0(Both) 1c. LOC Commands (Open \T\ Closes Eyes/Rapid Extractor Operator) - 0(Both) 2. Best Gaze (Lateral Gaze Paresis) - 0(Normal) 3. Visual Field Loss - 0(No visual loss) 4. Facial Palsy - 0(Normal) 5a. Left Arm: Motor (10-second hold) - 0(No drift) 5b. Right Arm: Motor (10-second hold) - 0(No drift) 6a. Left Leg: Motor (5-second hold - always test supine) - 0(No drift) 6b. Right Leg: Motor (5-second hold - always test supine) - 0(No drift) 7. Limb Ataxia (finger/nose \T\ heel/armenta - test with eyes open) - 0(Absent) 8. Sensory Loss (pinprick arms/legs/face) - 0(Normal) 9. Best Language: Aphasia (description/naming/reading) - 0(No aphasia) Initials: cp4 Signatures: Dispatcher [employer] Marjan Zaragoza, USHA RN cg Marylou Hood RN RN vc1 Francisco Carreno MD MD ec2 Daylin Bellamy cp4 Tata Hi RN pc2 Corrections: (The following items were deleted from the chart) 00:48 00:48 BASIC METABOLIC PANEL+C.LAB.BRZ ordered. EDMS EDMS 00:48 00:48 CBC+H.LAB.BRZ ordered. EDMS EDMS 00:48 00:48 Troponin High Sensitivity+C.LAB.BRZ ordered. EDMS EDMS 00:48 00:48 PROTIME (+INR)+COAG.LAB.BRZ ordered. EDMS EDMS 00:48 00:48 PTT, ACTIVATED+COAG.LAB.BRZ ordered. EDMS EDMS 02:19 02:03 Labetalol IV 10 mg IV at bolus once ordered. ec2 ec2 02:51 02:03 ec2 cg
--- NOTE | 2024-06-14 02:04 | ER ---
Nurse's Notes [facility] Name: Channing Marmolejo Age: 69 yrs Sex: Male : 1955 Arrival Date: 06/14/2024 Time: 00:16 Bed 17 Private MD: Diagnosis: Transient cerebral ischemic attack, unspecified;Essential (primary) hypertension Presentation: 06/14 00:30 Chief complaint: Son seen facial droop an hour HR GENERALIST. vc1 00:34 Chief complaint: Patient's son or daughter states: right eye swollen. Coronavirus vc1 screen: Client denies travel out of the [place] in the last 14 days. At this time, the client does not indicate any symptoms associated with coronavirus-19. Ebola Screen: Patient negative for fever greater than or equal to 101.5 degrees Fahrenheit, and additional compatible Ebola Virus Disease symptoms Patient denies exposure to infectious person. Patient denies travel to an Ebola-affected area in the 21 days before illness onset. No symptoms or risks identified at this time. Initial Sepsis Screen: Does the patient meet any 2 criteria? No. Patient's initial sepsis screen is negative. Does the patient have a suspected source of infection? No. Patient's initial sepsis screen is negative. Risk Assessment: Do you want to hurt yourself or someone else? Patient reports no desire to harm self or others. Onset of symptoms. 00:34 Method Of Arrival: Wheelchair vc1 00:34 Acuity: KANWAL 2 vc1 00:38 Note Pt developed facial drooping with drooling during triage, pt taken straight back vc1 to CT. 00:38 An acute neurological deficit is present. The charge nurse has been notified. The vc1 patient has been moved to a treatment area. Pre-hospital glucose is not applicable to this patient. Stroke Activation: Symptom onset > 6 hours Physician: ED Attending; Name: mariia; Notified At: 00:34; Arrived At: 00:34 Physician: Mid-Level Provider; Name: ; Notified At: 00:34; Arrived At: 00:34 Physician: [not used]; Name: ; Notified At: ; Arrived At: Physician: [not used]; Name: ; Notified At: ; Arrived At: Physician: [not used]; Name: ; Notified At: ; Arrived At: Historical: - Allergies: 00:31 No Known Allergies; vc1 - Home Meds: 00:32 clopidogrel 75 mg Oral tab once daily [Active]; amlodipine 10 mg tab once daily vc1 [Active]; aspirin 81 mg Oral tab daily [Active]; atorvastatin 40 mg Oral tab 1 tab once daily [Active]; carvedilol 12.5 mg Oral tab every 12 hours [Active]; tamsulosin 0.4 mg Oral cap once daily [Active]; Phenazopyridine Oral [Active]; Folic Acid Oral [Active]; Carbidopa-Levodopa Oral 3 times per day [Active]; - PMHx: 00:31 TOMMIE; Carotid artery blockage; COPD; CVA; Hypertension; Seizure; Parkinson's disease; vc1 00:32 Dementia; vc1 - PSHx: 00:31 Bladder Stent; vc1 - Immunization history:: Client reports receiving the 2nd dose of the Covid vaccine. - Infectious Disease History:: Denies. - Social history:: Smoking status: Patient/guardian denies using tobacco. Screenin:46 [facility] ED Fall Risk Assessment (Adult) History of falling in the last 3 months, cp4 including since admission No falls in past 3 months (0 pts) Confusion or Disorientation Yes (5 pts) Intoxicated or Sedated No (0 pts) Impaired Gait Yes (1 pt) Mobility Assist Device Used Yes (1 pt) Altered Elimination Yes (1 pt) Score/Fall Risk Level 3 or more points = High Risk Oriented to surroundings, Maintained a safe environment, Assessed \T\ reinforced patient's understanding of fall precautions, Provided non-skid footwear, Hourly rounding (assess needs \T\ fall precautionary measures) done, Used ambulatory aids as needed (educated on \T\ assisted with). Abuse screen: Denies threats or abuse. Nutritional screening: No deficits noted. Tuberculosis screening: No symptoms or risk factors identified. Assessment: 00:46 VAN Scoring: Arm Drift: Patients demonstrates NO arm weakness. Patient is VAN Negative. cp4 Alexandra Swallow Protocol Exclusion Criteria: NPO for medical/surgical reason by provider order Yes. General: Appears in no apparent distress. Pain: Denies pain. Neuro: Level of Consciousness is awake, alert, obeys commands, Oriented to person, place. Cardiovascular: Rhythm is sinus rhythm. Respiratory: Airway is patent Respiratory effort is even, unlabored. GI: No signs and/or symptoms were reported involving the gastrointestinal system. : No signs and/or symptoms were reported regarding the genitourinary system. EENT: No signs and/or symptoms were reported regarding the EENT system. Derm: No signs and/or symptoms reported regarding the dermatologic system. Musculoskeletal: No signs and/or symptoms reported regarding the musculoskeletal system. 01:04 TNKase (Tenecteplase) Screening: Contraindications: Patient reports onset of signs and vc1 symptoms of stroke greater than 6 hours ago: Yes. Is the patient on Aspirin, Heparin, or Warfarin: Blood pressure is more than 185/110:. 01:05 General: [facility] states neurologist states patient has had over 100 TIAs. Pt will develop a vc1 facial droop and start to drool, stop responding. Then pt will return to baseline. Vital Signs: 00:46 BP 215 / 73; Pulse 65; Resp 18; Temp 98; Pulse Ox 99% ; Pain 0/10; cp4 01:00 BP 197 / 78; Pulse 65; Resp 18; Pulse Ox 100% ; cp4 01:15 BP 188 / 89; Pulse 59; Resp 18; Pulse Ox 100% ; cp4 01:30 BP 202 / 75; Pulse 56; Resp 18; Pulse Ox 99% ; cp4 01:45 BP 211 / 79; Pulse 61; Resp 18; Pulse Ox 100% ; cp4 02:30 BP 179 / 74; Pulse 70; Resp 18; Pulse Ox 99% on R/A; pc2 02:45 BP 177 / 81; Pulse 61; Resp 18; Pulse Ox 99% on R/A; pc2 03:00 BP 170 / 67; Pulse 68; Resp 18; Pulse Ox 99% on R/A; pc2 03:30 BP 179 / 67; Pulse 63; Resp 16; Pulse Ox 99% on R/A; pc2 04:00 BP 160 / 83; Pulse 72; Resp 18; Pulse Ox 99% on R/A; pc2 00:46 Pain Scale: Adult cp4 NIH Stroke Scale Scores: 00:46 NIHSS Score: 0 cp4 ED Course: 00:19 Patient arrived in ED. jj6 00:20 Francisco Carreno MD is Attending Physician. ec2 00:34 Arm band placed on right wrist. vc1 00:36 Triage completed. vc1 00:46 Placed in gown. Bed in low position. Call light in reach. Side rails up X2. cp4 00:46 No provider procedures requiring assistance completed. Inserted saline lock: 22 gauge cp4 in right upper arm, using aseptic technique. Blood collected. Flushed with 10 mL NS. 01:03 Head angio In Process Unspecified. EDMS 01:05 CT Neck Angio In Process Unspecified. EDMS 01:05 CT Stroke Brain w/o Contrast In Process Unspecified. EDMS 01:06 Daylin Bellamy is Primary Nurse. cp4 01:25 Stroke CXR 1 View In Process Unspecified. EDMS 02:03 Randal Greene is Hospitalizing Provider. ec2 Administered Medications: 02:19 CANCELLED (Physician Discretion): [id number] mg IV at bolus once ec2 02:22 Drug: hydrALAZINE IVP 10 mg IVP once Route: IVP; Site: right upper arm; cp4 02:55 Follow up: Response: No adverse reaction; Blood pressure is lowered pc2 Medication: 00:34 VIS not applicable for this client. vc1 Point of Care Testing: Blood Glucose: 00:46 Blood Glucose: 93 mg/dL; cp4 Ranges: Outcome: 02:03 Decision to Hospitalize by Provider. ec2 04:23 Patient left the ED. pc2 NIH Stroke Scale - NIH Stroke Score Date: 06/14/2024 Time: 00:46 Total Score = 0 10. Dysarthria (speech clarity - read or repeat words) - 0(Normal) 11. Extinction and Inattention (visual/tactile/auditory/spatial/personal) - 0(No abnormality) 1a. Level of Consciousness (LOC) - 0(Alert) 1b. Level of Consciousness (LOC) (Month \T\ Age) - 0(Both) 1c. LOC Commands (Open \T\ Closes Eyes/Drupal Web Developer) - 0(Both) 2. Best Gaze (Lateral Gaze Paresis) - 0(Normal) 3. Visual Field Loss - 0(No visual loss) 4. Facial Palsy - 0(Normal) 5a. Left Arm: Motor (10-second hold) - 0(No drift) 5b. Right Arm: Motor (10-second hold) - 0(No drift) 6a. Left Leg: Motor (5-second hold - always test supine) - 0(No drift) 6b. Right Leg: Motor (5-second hold - always test supine) - 0(No drift) 7. Limb Ataxia (finger/nose \T\ heel/armenta - test with eyes open) - 0(Absent) 8. Sensory Loss (pinprick arms/legs/face) - 0(Normal) 9. Best Language: Aphasia (description/naming/reading) - 0(No aphasia) Initials: cp4 Signatures: Dispatcher [employer] Yaneli Limon6 Marylou Hood, RN RN vc1 Francisco Carreno MD MD ec2 Daylin Bellamy cp4 Tata Hi, RN RN pc2
[2024-06-14] MEDS ORDERED: HYDRALAZINE HCL 20 MG/ML VIAL ONE (02:20)
[2024-06-14] MEDS ORDERED: ONDANSETRON 4 MG/2 ML VIAL IV PRN (02:50)
[2024-06-14] MEDS: NA CHLORIDE 0.9% 1,000 ML IV SCH (03:00)
--- NOTE | 2024-06-14 03:06 | P.HP ---
Certification for Inpatient Patient admitted to: Observation With expected LOS: <2 Midnights Practitioner: I am a practitioner with admitting privileges, knowledge of patient current condition, hospital course, and medical plan of care. Services: Services provided to patient in accordance with Admission requirements found in Title 42 Section 412.3 of the Code of Federal Regulations Patient History Date of Service: 06/14/24 Reason for admission: Right facial droop History of Present Illness: 69-year-old gentleman with a history of CVA with residual aphasia was brought to the emergency department due to a complaint of transient right facial droop which occurred yesterday in the afternoon. Symptoms noticed by patient's home health aide. No reported limb weakness. Patient has baseline history of CVA with aphasia, no reported changes in patient's speech. Patient was evaluated in the ED and noted to have severely elevated blood pressure. Head CT did not show any acute disease. Patient was given labetalol and hydralazine to control his blood pressure. ED provider reports resolution of patient's facial droop. No focal neurologic symptoms noted when patient was seen for examination in the ED. patient is hospitalized for further stroke workup. Allergies No Known Allergies Allergy (Verified 11/19/23 13:41) Home Medications: Tamsulosin [Flomax*] 2 cap PO DAILY 03/19/20 Aspirin 81 mg PO DAILY 12/23/20 Atorvastatin Calcium [Lipitor] 1 tab PO BEDTIME 12/23/20 carvediloL [Coreg*] 12.5 mg PO BEDTIME 12/23/20 Clopidogrel Bisulfate [Plavix*] 75 mg PO DAILY #30 tablet 09/05/21 Amlodipine [Norvasc*] 10 mg PO DAILY 10/24/22 Carbidopa/Levodopa 25-100 [Sinemet 25-100*] 25 - 100 mg PO TID 10/24/22 Albuterol Sulfate [Albuterol Sulfate 0.083% Neb Soln] 2.5 mg IH Q6HP PRN 12/04/22 Donepezil HCl [Aricept] 10 mg PO BEDTIME 12/04/22 Albuterol Sulfate [Ventolin Hfa] 2 puff IH QID PRN 11/19/23 Carvedilol [Coreg] 12.5 mg PO DAILY 11/19/23 Fluticasone Furoate [Arnuity Ellipta] 1 puff IH DAILY 11/19/23 Folic Acid 1 mg PO DAILY 11/19/23 Sulfamethoxazole/Trimethoprim [Bactrim 400-80 mg Tablet] 1 each PO BID 11/19/23 - Past Medical/Surgical History Diabetic: No -: HTN -: Hyperlipidemia -: Chronic Kidney disease -: COPD -: History of Cocaine abuse -: Carotid Occlusive Disease -: History of CVA/TIA-no residual -: Chronic Hepatitis C -: Chronic Back pain -: Cervical Spondylosis -: UGI bleed -: Lt shoulder sx -: GI ulcer sx Psychosocial/ Personal History: . 8-Children. Has home health. - Family History Mother -: Hypertension Father -: Hypertension Notes: Brother -: Hypertension Sister -: Hypertension - Social History Alcohol use: Yes CD- Drugs: Yes Caffeine use: No Review of Systems Other: Except as documented, all other systems reviewed and negative. Physical Examination - Physical Exam General: Alert, In no apparent distress, Oriented x3 HEENT: Mucous membr. moist/pink, EOMI, Sclerae nonicteric Neck: Supple, JVD not distended Respiratory: Clear to auscultation bilaterally, Normal air movement Cardiovascular: No edema, Regular rate/rhythm, Normal S1 S2, No murmurs Capillary refill: <2 Seconds Gastrointestinal: Normal bowel sounds, Soft and benign, Non-distended, No tenderness Musculoskeletal: No swelling, No tenderness Integumentary: No rashes, No cyanosis Neurological: Normal strength at 5/5 x4 extr, Cranial nerves 3-12 intact, Abnormal speech (Aphasia) Lymphatics: No axilla or inguinal lymphadenopathy - Studies Laboratory Data (last 24 hrs) 06/14/24 06/14/24 06/14/24 01:07 01:07 01:07 WBC 8.90 Hgb 13.5 L Hct 43.1 Plt Count 201 PT 12.5 INR 1.12 APTT 33.8 Sodium 141 Potassium 3.9 BUN 27 H Creatinine 2.09 H Glucose 98 Assessment and Plan - Problems (Diagnosis) (1) TIA (transient ischemic attack) Current Visit: Yes Status: Acute (2) Malignant hypertension Current Visit: Yes Status: Acute (3) BPH (benign prostatic hyperplasia) Current Visit: No Status: Acute (4) Chronic kidney disease (CKD) stage G3a/A2, moderately decreased glomerular filtration rate (GFR) between 45-59 mL/min/1.73 square meter and albuminuria creatinine ratio between 30-299 mg/g Current Visit: No Status: Acute - Plan TIA History of CVA Head CT negative Transient right facial droop. Placed under observation Continue stroke workup with MRI of the brain Obtain echocardiogram Neurology consult Check lipid profile Statin Patient is on Plavix. Given patient history of GI bleed, we will continue on the Plavix for now. Patient stated he uses a wheelchair at baseline Swallow and speech evaluation. PT consult. Malignant hypertension Resume home dose amlodipine Hydralazine as needed for BP spikes. BPH Continue home dose tamsulosin Chronic kidney disease stage III Serum creatinine appears to be at baseline. Monitor renal function. History of peptic ulcer History of GI bleed No active bleed Continue Plavix for TIA and history of stroke. DVT prophylaxis: Heparin SQ Advanced directive: Full code - Advance Directives Does patient have a Living Will: No Does patient have a Durable POA for Healthcare: Yes
[2024-06-14 06:02] VITALS: BMI 21.4
[2024-06-14] MEDS: AMLODIPINE 10 MG TAB PO SCH (08:01)
[2024-06-14] MEDS: TAMSULOSIN 0.4 MG SR CAP PO SCH (08:02)
[2024-06-14] MEDS: FOLIC ACID 1 MG TABLET PO SCH (08:03)
[2024-06-14] MEDS: HEPARIN 5000 UNIT/ML 1 ML VIAL SQ SCH (08:04)
[2024-06-14] MEDS: CLOPIDOGREL 75 MG TABLET PO SCH (08:04)
[2024-06-14] MEDS: KCL 20 MEQ/100 mL IVPB 20 MEQ/100 ML BAG IV SCH (10:39)
[2024-06-14 10:46] LABS: RPR Titer ND
--- NOTE | 2024-06-14 11:29 | P.PN ---
Date of Service: 06/14/24 Pt seen and examined. Pt is a 69 yo male with past medical history of CVA with residual weakness on LUE and aphasia who presents transient right facial droop which occurred on 06/12/24 afternoon A/P: TIA/ History of CVA: CT head is unremarkable. He has transient right facial droop. Will f/u MRI brain, Echo. Continue aspirin and plavix. Will allow permissive htn. Consulted Neurology, speech therapist and PT. Malignant hypertension: Will resume amlodipine and prn hydralazine once we r/o CVA. BPH: Continue home dose tamsulosin Chronic kidney disease stage III: cr is 2.09 <- 2.2. Will avoid nephrotoxin, continue IVF, and monitor renal function. History of peptic ulcer: Continue pronix History of GI bleed: noted. No active bleed DVT prophylaxis: Heparin SQ Code: full code Dispo: Pending hospital course.
[2024-06-14] MEDS: HYDRALAZINE HCL 20 MG/ML VIAL IV PRN (12:41)
[2024-06-14] MEDS: Oxycodone HCl/Acetaminophen 5/325 MG TAB PO PRN (14:58)
--- NOTE | 2024-06-14 16:06 | RAD REPORT ---
EXAM DESCRIPTION: RAD - Chest Single View - 06/14/2024 1:23 am CLINICAL HISTORY: 69 years, Male, Cough. COMPARISON: XR Chest 04/03/2024. FINDINGS: 1 view of the chest (AP portable projection) was obtained. No prior films are available at this time for comparison. There is slight decreased lung volume. Mediastinum: The cardiomediastinal silhouette appears normal in size and shape. Lungs: No areas of consolidations or masses are identified. Heart: The heart is normal in size. Thoracic aorta: The thoracic aorta demonstrate to be mildly tortuous. Pulmonary vasculature: The pulmonary vasculature is normal in distribution. Pleura: The costophrenic angles demonstrate to be sharp. Osseous structures: The bony structures demonstrate to be within normal limits. Other: External EKG leads within the [id number] limits diagnosis. IMPRESSION: No acute cardiopulmonary disease is seen Electronically signed by: Edward Wilburn MD 06/14/2024 02:55 AM CDT Due to temporary technical issues with the PACS/Fluency reporting system, reports are being signed by the in house radiologists without review as a courtesy to insure prompt reporting. The interpreting radiologist is fully responsible for the content of the report.
--- NOTE | 2024-06-14 16:09 | RAD REPORT ---
EXAM DESCRIPTION: CT - Head angio - 06/14/2024 1:04 am ADDENDUM #1 Critical findings were discussed with and acknowledged by Dr. Francisco Carreno on 06/14/2024 1:28 AM CDT. Electronically signed by: Tyshawn Currie MD 06/14/2024 02:49 AM CDT RP End of Addendum CLINICAL HISTORY: STROKE ALERT COMPARISON: None. TECHNIQUE: CT HEAD ANGIOGRAPHY WITH IV CONTRAST, CT NECK ANGIOGRAPHY WITH IV CONTRAST on 06/14/2024 1 :00 AM CDT This exam was performed according to our departmental dose-optimization program, which includes autom ated exposure control, adjustment of the mA and/or kV according to patient size and/or use of iterati ve reconstruction technique. MIP reconstructions were generated. Stenoses are calculated by NASCET criteria. FINDINGS: The visualized aortic arch and origins of the great vessels unremarkable. The common carotid arteries are patent and symmetric bilaterally. No hemodynamically significant stenosis is observed at the common carotid bifurcations or origins of the internal carotid arteries bilaterally. Vertebral arteries are unremarkable without evidence of pseudoaneurysm, hemodynamically significant s tenosis, or dissection. Intracranially the cavernous segments of the internal carotid arteries are patent and symmetric bilat erally. Vertebral basilar system within normal limits for age. No aneurysm identified within the [place]. Anterior, middle, and posterior cerebral circulat ions are patent and symmetric bilaterally. Dural sinuses are well opacified and without filling defect. IMPRESSION: Unremarkable CT angiogram of the neck for age without dissection or hemodynamically sign ificant stenosis. Unremarkable CTA of the brain without evidence of hemodynamically significant stenosis, aneurysm or A VM. CAROTID STENOSIS REFERENCE USING NASCET CRITERIA: % ICA stenosis = (1 - narrowest ICA diameter/diameter of distal cervical ICA) x 100. Mild - <50% stenosis. Moderate - 50-69% stenosis. Severe - 70-94% stenosis. Near occlusion - 95-99% stenosis. Occluded - 100% stenosis. Electronically signed by: Tyshawn Currie MD 06/14/2024 01:24 AM CDT RP Due to temporary technical issues with the PACS/Fluency reporting system, reports are being signed by the in house radiologists without review as a courtesy to insure prompt reporting. The interpreting radiologist is fully responsible for the content of the report.
--- NOTE | 2024-06-14 16:12 | RAD REPORT ---
EXAM DESCRIPTION: CT - Neck Angio - 06/14/2024 1:04 am ADDENDUM #1 Critical findings were discussed with and acknowledged by Dr. Francisco Carreno on 06/14/2024 1:28 AM CDT. Electronically signed by: Tyshawn Currie MD 06/14/2024 02:49 AM CDT RP End of Addendum CLINICAL HISTORY: STROKE ALERT COMPARISON: None. TECHNIQUE: CT HEAD ANGIOGRAPHY WITH IV CONTRAST, CT NECK ANGIOGRAPHY WITH IV CONTRAST on 06/14/2024 1 :00 AM CDT This exam was performed according to our departmental dose-optimization program, which includes autom ated exposure control, adjustment of the mA and/or kV according to patient size and/or use of iterati ve reconstruction technique. MIP reconstructions were generated. Stenoses are calculated by NASCET criteria. FINDINGS: The visualized aortic arch and origins of the great vessels unremarkable. The common carotid arteries are patent and symmetric bilaterally. No hemodynamically significant stenosis is observed at the common carotid bifurcations or origins of the internal carotid arteries bilaterally. Vertebral arteries are unremarkable without evidence of pseudoaneurysm, hemodynamically significant s tenosis, or dissection. Intracranially the cavernous segments of the internal carotid arteries are patent and symmetric bilat erally. Vertebral basilar system within normal limits for age. No aneurysm identified within the [place]. Anterior, middle, and posterior cerebral circulat ions are patent and symmetric bilaterally. Dural sinuses are well opacified and without filling defect. IMPRESSION: Unremarkable CT angiogram of the neck for age without dissection or hemodynamically sign ificant stenosis. Unremarkable CTA of the brain without evidence of hemodynamically significant stenosis, aneurysm or A VM. CAROTID STENOSIS REFERENCE USING NASCET CRITERIA: % ICA stenosis = (1 - narrowest ICA diameter/diameter of distal cervical ICA) x 100. Mild - <50% stenosis. Moderate - 50-69% stenosis. Severe - 70-94% stenosis. Near occlusion - 95-99% stenosis. Occluded - 100% stenosis. Electronically signed by: Tyshawn Currie MD 06/14/2024 01:24 AM CDT RP Due to temporary technical issues with the PACS/Fluency reporting system, reports are being signed by the in house radiologists without review as a courtesy to insure prompt reporting. The interpreting radiologist is fully responsible for the content of the report.
--- NOTE | 2024-06-14 16:20 | RAD REPORT ---
EXAM DESCRIPTION: CT - Ct Stroke Brain Wo Cont - 06/14/2024 1:04 am CLINICAL HISTORY: STROKE ALERT COMPARISON: 01/20/2024. TECHNIQUE: CT HEAD WITHOUT IV CONTRAST on 06/14/2024 12:47 AM CDT This exam was performed according to our departmental dose-optimization program, which includes autom ated exposure control, adjustment of the mA and/or kV according to patient size and/or use of iterati ve reconstruction technique. FINDINGS: There is no acute hemorrhage, mass effect or midline shift. There is mild right frontal en cephalomalacia. There is no hydrocephalus. There is no significant volume loss for age. The calvarium is intact. Orbits and globes are unremarkable. The paranasal sinuses are clear. Mastoid air cells are clear. IMPRESSION: No acute intracranial findings. Electronically signed by: Tyshawn Currie MD 06/14/2024 01:21 AM CDT Due to temporary technical issues with the PACS/Fluency reporting system, reports are being signed by the in house radiologists without review as a courtesy to insure prompt reporting. The interpreting radiologist is fully responsible for the content of the report.
[2024-06-14] MEDS: ATORVASTATIN 40 MG TAB PO SCH (20:33)
[2024-06-14 23:20] LABS: RPR (Rapid Plasma Reagin) NON-REACT (NON-REACT)
[2024-06-15 06:42] LABS: Absolute Basophils 0.1 K/uL (0-0.5); Absolute Eosinophils 0.2 K/uL (0-0.5); Absolute Monocytes 0.7 K/uL (0.1-1.3); Absolute Neutrophil 3.2 K/uL (1.8-8.0); Basophils % 1.1 % (0-1.3); Lymphocytes % 41.6 % (15.3-44.8); MCH 26.6 pg (27.0-35.0); MCHC 30.9 g/dL (32.0-36.0); MCV 86.1 fL (80-100); MPV 10.7 fL (7.6-11.3); Monocytes % 9.4 % (3.3-12.3); Neutrophils % 44.9 % (41.7-73.7); Nucleated Red Blood Cells % 0.1 % (0-0); Platelets 176 thou/uL (152-406); RBC Red Blood Cell Count 4.52 M/uL (4.33-5.43); Red Cell Distribution Width 16.1 % (12.1-15.2)
--- NOTE | 2024-06-15 08:37 | P.PN ---
Subjective Date of Service: 06/15/24 Chief Complaint: Right facial droop Pt is resting comfortably in bed. He has left upper extremity weakness. CT head is unremarkable. Waiting for MRI brain and Echo. No other complaints. Review of Systems General: Unremarkable Eyes: Unremarkable ENT: Unremarkable Respiratory: Unremarkable Cardiovascular: Unremarkable Gastrointestinal: Unremarkable Genitourinary: Unremarkable Musculoskeletal: Unremarkable Integumentary: Unremarkable Neurological: Weakness (LUE) Lymphatics: Unremarkable Physical Examination - Vital Signs Temperature: 99.4 F Blood Pressure: 174/73 Pulse: 60 Respirations: 18 Pulse Ox (%): 98 - Physical Exam General: Alert, In no apparent distress, Oriented x3 HEENT: Atraumatic, Normocephalic, PERRLA Neck: Supple, 2+ carotid pulse no bruit, JVD not distended Respiratory: Clear to auscultation bilaterally, Normal air movement Cardiovascular: No edema, Normal pulses, Regular rate/rhythm, Normal S1 S2 Capillary refill: <2 Seconds Gastrointestinal: Normal bowel sounds, Soft and benign, Non-distended Musculoskeletal: No clubbing, No swelling, No contractures Integumentary: No rashes, No breakdown, No significant lesion Neurological: Normal gait, Normal speech, Normal strength at 5/5 x4 extr Lymphatics: No axilla or inguinal lymphadenopathy Assessment And Plan - Plan TIA/ History of CVA: CT head is unremarkable. He has transient right facial droop. CT head and CTA head ane neck are unremarkable. Will f/u MRI brain, Echo. Continue aspirin and plavix. Will allow permissive htn. Consulted Neurology, speech therapist and PT. Malignant hypertension: Will resume amlodipine and prn hydralazine once we r/o CVA. BPH: Continue home dose tamsulosin Chronic kidney disease stage III: cr is 2.09 <- 2.2. Will avoid nephrotoxin, continue IVF, and monitor renal function. History of peptic ulcer: Continue pronix History of GI bleed: noted. No active bleed DVT prophylaxis: Heparin SQ Code: full code Dispo: Pending hospital course.
[2024-06-15] MEDS: NA CHLORIDE 0.9% 1,000 ML IV SCH (11:57)
[2024-06-15 20:09] LABS: Anion Gap 13.2 mEq/L (5.0-15.0); Magnesium 2.2 mg/dL (1.6-2.4); Phosphorus 2.8 mg/dL (2.5-4.9); Potassium 4.2 mEq/L (3.5-5.1); Thyroid Stimulating Hormone 1.58 uIU/mL (0.358-3.740)
--- OUTSIDE RECORDS SUMMARY | 2024-06-16 09:08 | XMS REPORT | Continuity of Care Document ---
Author Name Unknown Address [address] [facility] [place] [address] [facility] Address [address] [facility] [address] [place] [address] Care Team Providers Care General Car Supervisor Yard Name Role Phone No , Pcp Primary Care Physician Unavailab Leticia Lewis Attending Clinician Unavail able Barrie Real M Attending Clinician Unavailable Javier Weinstein Rahil Attending Clinician Unavail able [id number] Attending Clinician Unavailable TARA NIEVES Attending Clinician Unavailable Lewis Mccarty MD Attending Clinician [phone] JAVIER WEINSTEIN Attending Clinician Unavailable Shashi Lee MD Attending Clinician [phone] LEWIS MCCARTY Attending Clinician Unav ailJAZZ Weir Attending Clinician Unavailable Verónica RN, Wendel Attending Clinician Unavai DIOR De La Torre Attending Clinician Unava ilable YONAS REYES Attending Clinician Unavailable MARISELA GONZALEZ Attending Clinician Un available NOHEMY KHALIL Attending Clinician Unav ailable Ige-[place]_J_AH Attending Clinician Unavailable Javier Weinstein Rahil Admitting Clinician Unavail able [id number] Admitting Clinician Unavailable BARRIE REAL Admitting Clinician Unavailable JAZZ ALAMO Admitting Clinician Unavailable YONAS REYES Admitting Clinician Unavailable Ige-[place]_J_AH Admitting Clinician Unavailable Payers Payer Name Policy Type Policy Number Effective Date Expirati on Date Source [facility] [id number] 2022 00:00:00 HUMM HUMM [id number] [employer]ICARE 53 [id number] 2022 00:00:00 [facility] MEDICARE ADVANTAGE HMO [id number] 2022 00:00:00 [employer] MEDICARE 53 [id number] 2020 00:00:00 [facility] [id number] [facility] (MEDICARE REPLACEMENT/ADV ANTAGE - HMO) [id number] Problems Condition Name Condition Details Condition Category Status Onset Date Resolution Date Last Treatment Date Treating Clinician Comments Source Parkinson' s disease Parkinson' s disease Disease Active 04-25 00:00: 00 [facility] Seizure Seizure Disease Active 04-25 00:00: 00 [facility] Lewy body dementia Lewy body dementia Disease Active 04-25 00:00: 00 [facility] Depression Depression Disease Active 04-25 00:00: 00 [facility] Physical deconditio patricia Physical deconditio patricia Disease Active 04-25 00:00: 00 [facility] [id number] Renal atrophy Problem [facility] [id number] S/P ureteral stent placement Problem [facility] [id number] Mixed hyperlipid emia Problem [facility] 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 Hemiparesi s of right dominant side as late effect of cerebral infarction Problem [facility] Dementia with behavioral disturbanc e +6th digit eff 07/29/22*De mentia, unspecifie d, with behavioral disturbanc e Problem [facility] Recurrent falls Repeated falls Problem [facility] Chronic kidney disease stage 3B (disorder) Chronic kidney disease, stage 3b Problem [facility] History of transient ischemic attack History of transient ischemic attack Problem [facility] Chronic kidney disease stage 3 +5th digit eff 07/29/20*Ch ronic kidney disease, stage 3 Problem [facility] [id number] Tobacco abuse counseling Problem [facility] Chronic obstructiv e pulmonary disease Chronic obstructiv e pulmonary disease Problem [facility] [id number] Hyperlipid emia, unspecifie d hyperlipid emia type Problem [facility] [id number] Encounter for immunizati on Problem [facility] [id number] Cerebrovas cular accident (CVA) of right thalamus Problem [facility] [id number] NPH (normal pressure hydrocepha sebas) Problem [facility] Chronic pain Other chronic pain Problem [facility] [id number] Dysuria Problem [facility] Eruption of skin Groin rash Problem Commo n [facility] [id number] Bloody drainage from penis Problem [facility] [id number] Urinary hesitancy Problem [facility] [id number] Hematuria, unspecifie d type Problem [facility] Bladder incontinen ce Urinary incontinen ce, unspecifie d type Problem [facility] Chronic kidney disease due to hypertensi on Hypertensi ve CKD (chronic kidney disease) Problem [facility] [id number] Agitation Problem [facility] [id number] Ataxic gait Problem [facility] Chronic kidney disease CKD (chronic kidney disease) Problem [facility] [id number] Depression with anxiety Problem [facility] [id number] Vascular dementia without behavioral disturbanc e Problem [facility] [id number] H/O: CVA (cerebrova scular accident) Problem [facility] [id number] Encounter for therapeuti c drug level monitoring Problem [facility] [id number] Essential hypertensi on Problem [facility] [id number] NIKITA (generaliz ed anxiety disorder) Problem [facility] [id number] Kidney filling defect Problem [facility] [id number] Moderate major depression , single episode Problem [facility] [id number] Benign prostatic hyperplasi a with lower urinary tract symptoms Problem [facility] Chronic hepatitis C Chronic viral hepatitis C Problem [facility] 24092080 Constipati on, unspecifie d constipati on type Problem [facility] Lower urinary tract symptoms due to benign prostatic hypertroph y Benign localized prostatic hyperplasi a with lower urinary tract symptoms (LUTS) Problem [facility] Hydronephr osis with ureteral stricture Hydronephr osis with ureteral stricture Problem [facility] 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 Problem [facility] Dementia Dementia Problem [facility] Bladder dysfunctio n Bladder dysfunctio n Problem [facility] Urge incontinen ce of urine Urgency incontinen ce Problem [facility] [id number] Detrusor instabilit y Problem [facility] [id number] Atrophy of left kidney Problem [facility] 59635840 Bilateral hydronephr osis Problem [facility] [id number] Urinary retention Problem [facility] [id number] Hematuria, gross Problem [facility] [id number] Ureteral obstructio n, right Problem [facility] Allergies, Adverse Reactions, Alerts Allergy Name Allergy Type Status Severity Reaction(s) Onset Date Inactive Date Treating Clinician Comments Source NKA Allergy Active 05-22 12:30: 40 [facility] NKA Allergy Active 05-22 12:30: 40 [facility] NKA Allergy Active 05-22 12:30: 40 [facility] No Known Allergie s DA Active U 12-09 00:00: 00 [facility] No Known Allergie s DA Active U 12-09 00:00: 00 [facility] Social History Social Habit Start Date Stop Date Quantity Comments Source Sexual orientation [facility] History of Tobacco Use [facility] Sex Assigned At [facility] Cigarettes smoked current (pack per day) - Reported 2023-12-24 00:00:00 2023-12-24 00:00:00 [facility] Cigarette pack-years 2023-12-24 00:00:00 2023-12-24 00:00:00 [facility] Tobacco use and exposure 2023-12-24 00:00:00 2023-12-24 00:00:00 Smokeless tobacco non-user [facility] Alcoholic beverage intake 2023-12-24 00:00:00 2023-12-24 00:00:00 .86 /d [facility] Tobacco Comment 2023-12-24 00:00:00 2023-12-24 00:00:00 Smoking History Packs/day: 1 PPD. Recorded:02/15/20 21 [facility] Exposure to SARS-CoV-2 (event) 2022-05-26 00:00:00 2022-06-05 13:46:00 Not sure [facility] History of Social function 2021-11-23 00:00:00 2021-11-23 00:00:00 [facility] Smoking Status Start Date Stop Date Source Former Smoker 2024-01-24 00:00:00 2024-01-24 00:00:00 [facility] Current Smoker 2023-07-19 00:00:00 [facility] Medications Ordered Medication Name Filled Medication Name Start Date Stop Date Current Medication? Ordering Clinician Indication Dosage Frequency Signature (SIG) Comments Components Source albuterol 108 (90 Base) MCG/ACT inhaler 12-24 09:27: 12 Yes INHALE TWO PUFFS BY MOUTH FOUR TIMES DAILY NEEDED (BULK) for [facility] cholecalcif mariel 50 MCG (1999) capsule 12-24 09:27: 12 Yes Take 2,000 Units by mouth every 7 (seven) days. DAILY AT 9 AM [facility] carbidopa-l evodopa CR (Sinemet CR) 25-100 MG ER tablet 12-24 00:00: 00 06-22 04:59 :00 No [id number] 2{tbl} Q.63149386 [id number] 3D Take 2 tablets by mouth in the morning and 2 tablets at noon and 2 tablets in the evening. Do not crush, chew, or split.. [facility] donepezil (Aricept) 5 MG tablet 12-07 00:00: 00 Yes [id number] 5mg Take 1 tablet (5 mg total) by mouth every night. [facility] memantine (Namenda) 10 MG tablet 12-07 00:00: 00 Yes [id number] 10mg Q.5D Take 1 tablet (10 mg total) by mouth in the morning and 1 tablet (10 mg total) in the evening. [facility] carbidopa-l evodopa (Sinemet) 25-100 MG tablet 12-07 00:00: 00 12-24 00:00 :00 No [id number] 1.5{tbl } Q.99551734 [id number] 3D Take 1.5 tablets by mouth in the morning and 1.5 tablets at noon and 1.5 tablets in the evening. [facility] levoFLOXaci n 500 MG levoFLOXaci n 500 MG 12-03 00:00: 00 No 1{table t} QD levoFLOXac in 500 MG memantine (Namenda) 10 MG tablet 2022-10 00:00: 00 Yes [id number] 10mg Q.5D Take 1 tablet (10 mg total) by mouth in the morning and 1 tablet (10 mg total) in the evening. [facility] carbidopa-l evodopa (Sinemet) 25-100 MG tablet 2022-10 00:00: 00 2024- 10-05 04:59 :00 No [id number] 1.5{tbl } Q.46566303 [id number] 3D Take 1.5 tablets by mouth in the morning and 1.5 tablets at noon and 1.5 tablets in the evening. [facility] Vimpat 100 MG tablet 2022-10 0-05 00:00: 00 10-02 05:59 :00 No [id number] 100mg Q.5D Take 1 tablet (100 mg total) by mouth in the morning and 1 tablet (100 mg total) in the evening. [facility] donepezil (Aricept) 5 MG tablet 2022-10 0-05 00:00: 00 08-02 00:00 :00 No [id number] 5mg Take 1 tablet (5 mg total) by mouth every night. [facility] Bactrim 400-80 MG Bactrim 400-80 MG 8-12 00:00: 00 No 1{table t} BID Bactrim 400-80 MG Vimpat 100 MG tablet 6-27 00:00: 00 08-02 00:00 :00 No [id number] 100mg Q.5D Take 1 tablet (100 mg total) by mouth in the morning and 1 tablet (100 mg total) in the evening. [facility] memantine (Namenda) 10 MG tablet 3-30 00:00: 00 08-02 00:00 :00 No [id number] 10mg Q.5D Take 1 tablet (10 mg total) by mouth in the morning and 1 tablet (10 mg total) in the evening. [facility] Power Scooter Power Scooter 3-20 00:00: 00 No 1{puff} QD [employer] Sc[employer] carbidopa-l evodopa (Sinemet) 25-100 MG tablet 8-08 00:00: 00 06-06 04:59 :00 No [id number] 1{tbl} Q.87348122 [id number] 3D Take 1 tablet by mouth in the morning and 1 tablet at noon and 1 tablet in the evening. [facility] memantine (Namenda) 10 MG tablet 7-09 00:00: 00 Yes [id number] 10mg Q.5D Take 1 tablet (10 mg total) by mouth in the morning and 1 tablet (10 mg total) in the evening. [facility] levETIRAcet am (Keppra) 500 MG tablet -09 00:00: 00 Yes [id number] 500mg Q.5D Take 1 tablet (500 mg total) by mouth in the morning and 1 tablet (500 mg total) in the evening. [facility] levETIRAcet am (Keppra) 500 MG tablet 6-10 00:00: 00 05-06 00:00 :00 No [facility] carvedilol (Coreg) 3.125 MG tablet 4-13 00:00: 00 Yes [facility] clopidogrel (Plavix) 75 MG tablet 4- 00:00: 00 Yes [facility] atorvastati n (Lipitor) 40 MG tablet 3-16 00:00: 00 Yes 40mg QD Take 40 mg by mouth 1 (one) time each day. [facility] amLODIPine (Norvasc) 2.5 MG tablet 3- 00:00: 00 Yes [facility] tamsulosin (Flomax) 0.4 MG 24 hr capsule 2- 00:00: 00 Yes [facility] memantine (Namenda) 10 MG tablet 1- 00:00: 00 05-06 00:00 :00 No [facility] carvedilol (Coreg) 12.5 MG tablet 2020-10 1- 00:00: 00 Yes [facility] sulfamethox azole-trime thoprim (Bactrim DS) 800-160 MG tablet 2020-10 1- 00:00: 00 Yes [facility] donepezil (Aricept) 5 MG tablet -08 00:00: 00 08-02 00:00 :00 No [facility] lisinopril 5 MG tablet - 00:00: 00 Yes [facility] aspirin (ASPIR) 81 MG EC tablet - 00:00: 00 Yes 81mg 81 mg. [facility] budesonide (Pulmicort) 0.5 MG/2ML nebulizer solution 3- 00:00: 00 Yes [facility] Coreg 3.125 MG Coreg 3.125 MG No QD Coreg 3.125 MG Folic Acid 1 mg Folic Acid 1 mg No 1{table t} QD Folic Acid 1 mg Donepezil HCl 10 [...] QID Ventolin HFA 108 (90 Base) MCG/ACT Aricept 10 MG Aricept 10 MG No 1{table t_at_be dtime} QD Aricept 10 MG Aspirin 81 MG Aspirin 81 MG No 1{table t} QD Aspirin 81 MG Albuterol Sulfate HFA 108 (90 Base) MCG/ACT Albuterol Sulfate HFA 108 (90 Base) MCG/ACT No Albuterol Sulfate HFA 108 (90 Base) MCG/ACT Immunizations Ordered Immunization Name Filled Immunization Name Date Status Comments Source Moderna COVID-19 Vaccine (Low Dose Booster) Moderna COVID-19 Vaccine (Low Dose Booster) 2021-09-28 14:33:00 Completed [facility] Moderna COVID-19 Vaccine (Low Dose Booster) Moderna COVID-19 Vaccine (Low Dose Booster) 2021-09-28 14:33:00 Completed [facility] Moderna COVID-19 Vaccine (Low Dose Booster) Moderna COVID-19 Vaccine (Low Dose Booster) 2021-09-28 14:33:00 Completed [facility] Moderna COVID-19 Vaccine (Low Dose Booster) Moderna COVID-19 Vaccine (Low Dose Booster) 2021-09-28 14:33:00 Completed [facility] Moderna COVID-19 Vaccine (Low Dose Booster) Moderna COVID-19 Vaccine (Low Dose Booster) 2021-09-28 14:33:00 Completed [facility] Moderna COVID-19 Vaccine (Low Dose Booster) Moderna COVID-19 Vaccine (Low Dose Booster) 2021-09-28 14:33:00 Completed [facility] Moderna COVID-19 Vaccine (Low Dose Booster) Moderna COVID-19 Vaccine (Low Dose Booster) 2021-09-28 14:33:00 Completed [facility] Moderna COVID-19 Vaccine (Low Dose Booster) Moderna COVID-19 Vaccine (Low Dose Booster) 2021-09-28 14:33:00 Completed [facility] Moderna COVID-19 Vaccine (Low Dose Booster) Moderna COVID-19 Vaccine (Low Dose Booster) 2021-09-28 14:33:00 Completed [facility] Moderna COVID-19 Vaccine (Low Dose Booster) Moderna COVID-19 Vaccine (Low Dose Booster) 2021-09-28 14:33:00 Completed [facility] Moderna COVID-19 Vaccine (Low Dose Booster) Moderna COVID-19 Vaccine (Low Dose Booster) 2021-09-28 14:33:00 Completed [facility] Moderna COVID-19 Vaccine (Low Dose Booster) Moderna COVID-19 Vaccine (Low Dose Booster) 2021-09-28 14:33:00 Completed [facility] Moderna COVID-19 Vaccine (Low Dose Booster) Moderna COVID-19 Vaccine (Low Dose Booster) 2021-09-28 14:33:00 Completed [facility] Moderna COVID-19 Vaccine (Low Dose Booster) Moderna COVID-19 Vaccine (Low Dose Booster) 2021-09-28 14:33:00 Completed [facility] Moderna COVID-19 Vaccine (Low Dose Booster) Moderna COVID-19 Vaccine (Low Dose Booster) 2021-09-28 14:33:00 Completed [facility] Moderna COVID-19 Vaccine (Low Dose Booster) Moderna COVID-19 Vaccine (Low Dose Booster) 2021-09-28 14:33:00 Completed [facility] Moderna COVID-19 Vaccine (Low Dose Booster) Moderna COVID-19 Vaccine (Low Dose Booster) 2021-09-28 14:33:00 Completed [facility] Moderna COVID-19 Vaccine (Low Dose Booster) Moderna COVID-19 Vaccine (Low Dose Booster) 2021-09-28 14:33:00 Completed [facility] Moderna COVID-19 Vaccine (Low Dose Booster) Moderna COVID-19 Vaccine (Low Dose Booster) 2021-09-28 14:33:00 Completed [facility] FLUZONE HIGH DOSE OVER 65 FLUZONE HIGH DOSE OVER 65 2021-08-28 15:01:00 Completed [facility] FLUZONE HIGH DOSE OVER 65 FLUZONE HIGH DOSE OVER 65 2021-08-28 15:01:00 Completed [facility] FLUZONE HIGH DOSE OVER 65 FLUZONE HIGH DOSE OVER 65 2021-08-28 15:01:00 Completed [facility] FLUZONE HIGH DOSE OVER 65 FLUZONE HIGH DOSE OVER 65 2021-08-28 15:01:00 Completed [facility] FLUZONE HIGH DOSE OVER 65 FLUZONE HIGH DOSE OVER 65 2021-08-28 15:01:00 Completed [facility] FLUZONE HIGH DOSE OVER 65 FLUZONE HIGH DOSE OVER 65 2021-08-28 15:01:00 Completed [facility] FLUZONE HIGH DOSE OVER 65 FLUZONE HIGH DOSE OVER 65 2021-08-28 15:01:00 Completed [facility] FLUZONE HIGH DOSE OVER 65 FLUZONE HIGH DOSE OVER 65 2021-08-28 15:01:00 Completed [facility] FLUZONE HIGH DOSE OVER 65 FLUZONE HIGH DOSE OVER 65 2021-08-28 15:01:00 Completed [facility] FLUZONE HIGH DOSE OVER 65 FLUZONE HIGH DOSE OVER 65 2021-08-28 15:01:00 Completed [facility] FLUZONE HIGH DOSE OVER 65 FLUZONE HIGH DOSE OVER 65 2021-08-28 15:01:00 Completed [facility] FLUZONE HIGH DOSE OVER 65 FLUZONE HIGH DOSE OVER 65 2021-08-28 15:01:00 Completed [facility] FLUZONE HIGH DOSE OVER 65 FLUZONE HIGH DOSE OVER 65 2021-08-28 15:01:00 Completed [facility] FLUZONE HIGH DOSE OVER 65 FLUZONE HIGH DOSE OVER 65 2021-08-28 15:01:00 Completed [facility] FLUZONE HIGH DOSE OVER 65 FLUZONE HIGH DOSE OVER 65 2021-08-28 15:01:00 Completed [facility] FLUZONE HIGH DOSE OVER 65 FLUZONE HIGH DOSE OVER 65 2021-08-28 15:01:00 Completed [facility] FLUZONE HIGH DOSE OVER 65 FLUZONE HIGH DOSE OVER 65 2021-08-28 15:01:00 Completed [facility] FLUZONE HIGH DOSE OVER 65 FLUZONE HIGH DOSE OVER 65 2021-08-28 15:01:00 Completed [facility] FLUZONE HIGH DOSE OVER 65 FLUZONE HIGH DOSE OVER 65 2021-08-28 15:01:00 Completed [facility] Moderna COVID-19 Vaccine Moderna COVID-19 Vaccine 2021-01-04 14:35:00 Completed [facility] Moderna COVID-19 Vaccine Moderna COVID-19 Vaccine 2021-01-04 14:35:00 Completed [facility] Moderna COVID-19 Vaccine Moderna COVID-19 Vaccine 2021-01-04 14:35:00 Completed [facility] Moderna COVID-19 Vaccine Moderna COVID-19 Vaccine 2021-01-04 14:35:00 Completed [facility] Moderna COVID-19 Vaccine Moderna COVID-19 Vaccine 2021-01-04 14:35:00 Completed [facility] Moderna COVID-19 Vaccine Moderna COVID-19 Vaccine 2021-01-04 14:35:00 Completed [facility] Moderna COVID-19 Vaccine Moderna COVID-19 Vaccine 2021-01-04 14:35:00 Completed [facility] Moderna COVID-19 Vaccine Moderna COVID-19 Vaccine 2021-01-04 14:35:00 Completed [facility] Moderna COVID-19 Vaccine Moderna COVID-19 Vaccine 2021-01-04 14:35:00 Completed [facility] Moderna COVID-19 Vaccine Moderna COVID-19 Vaccine 2021-01-04 14:35:00 Completed [facility] Moderna COVID-19 Vaccine Moderna COVID-19 Vaccine 2021-01-04 14:35:00 Completed [facility] Moderna COVID-19 Vaccine Moderna COVID-19 Vaccine 2021-01-04 14:35:00 Completed [facility] Moderna COVID-19 Vaccine Moderna COVID-19 Vaccine 2021-01-04 14:35:00 Completed [facility] Moderna COVID-19 Vaccine Moderna COVID-19 Vaccine 2021-01-04 14:35:00 Completed [facility] Moderna COVID-19 Vaccine Moderna COVID-19 Vaccine 2021-01-04 14:35:00 Completed [facility] Moderna COVID-19 Vaccine Moderna COVID-19 Vaccine 2021-01-04 14:35:00 Completed [facility] Moderna COVID-19 Vaccine Moderna COVID-19 Vaccine 2021-01-04 14:35:00 Completed [facility] Moderna COVID-19 Vaccine Moderna COVID-19 Vaccine 2021-01-04 14:35:00 Completed [facility] Moderna COVID-19 Vaccine Moderna COVID-19 Vaccine 2021-01-04 14:35:00 Completed [facility] Moderna COVID-19 Vaccine Moderna COVID-19 Vaccine 2020-12-03 14:34:00 Completed [facility] Moderna COVID-19 Vaccine Moderna COVID-19 Vaccine 2020-12-03 14:34:00 Completed [facility] Moderna COVID-19 Vaccine Moderna COVID-19 Vaccine 2020-12-03 14:34:00 Completed [facility] Moderna COVID-19 Vaccine Moderna COVID-19 Vaccine 2020-12-03 14:34:00 Completed [facility] Moderna COVID-19 Vaccine Moderna COVID-19 Vaccine 2020-12-03 14:34:00 Completed [facility] Moderna COVID-19 Vaccine Moderna COVID-19 Vaccine 2020-12-03 14:34:00 Completed [facility] Moderna COVID-19 Vaccine Moderna COVID-19 Vaccine 2020-12-03 14:34:00 Completed [facility] Moderna COVID-19 Vaccine Moderna COVID-19 Vaccine 2020-12-03 14:34:00 Completed [facility] Moderna COVID-19 Vaccine Moderna COVID-19 Vaccine 2020-12-03 14:34:00 Completed [facility] Moderna COVID-19 Vaccine Moderna COVID-19 Vaccine 2020-12-03 14:34:00 Completed [facility] Moderna COVID-19 Vaccine Moderna COVID-19 Vaccine 2020-12-03 14:34:00 Completed [facility] Moderna COVID-19 Vaccine Moderna COVID-19 Vaccine 2020-12-03 14:34:00 Completed [facility] Moderna COVID-19 Vaccine Moderna COVID-19 Vaccine 2020-12-03 14:34:00 Completed [facility] Moderna COVID-19 Vaccine Moderna COVID-19 Vaccine 2020-12-03 14:34:00 Completed [facility] Moderna COVID-19 Vaccine Moderna COVID-19 Vaccine 2020-12-03 14:34:00 Completed [facility] Moderna COVID-19 Vaccine Moderna COVID-19 Vaccine 2020-12-03 14:34:00 Completed [facility] Moderna COVID-19 Vaccine Moderna COVID-19 Vaccine 2020-12-03 14:34:00 Completed [facility] Moderna COVID-19 Vaccine Moderna COVID-19 Vaccine 2020-12-03 14:34:00 Completed [facility] Moderna COVID-19 Vaccine Moderna COVID-19 Vaccine 2020-12-03 14:34:00 Completed [facility] FLUZONE HIGH DOSE OVER 65 FLUZONE HIGH DOSE OVER 65 2020-07-15 10:07:00 Completed [facility] FLUZONE HIGH DOSE OVER 65 FLUZONE HIGH DOSE OVER 65 2020-07-15 10:07:00 Completed [facility] FLUZONE HIGH DOSE OVER 65 FLUZONE HIGH DOSE OVER 65 2020-07-15 10:07:00 Completed [facility] FLUZONE HIGH DOSE OVER 65 FLUZONE HIGH DOSE OVER 65 2020-07-15 10:07:00 Completed [facility] FLUZONE HIGH DOSE OVER 65 FLUZONE HIGH DOSE OVER 65 2020-07-15 10:07:00 Completed [facility] FLUZONE HIGH DOSE OVER 65 FLUZONE HIGH DOSE OVER 65 2020-07-15 10:07:00 Completed [facility] FLUZONE HIGH DOSE OVER 65 FLUZONE HIGH DOSE OVER 65 2020-07-15 10:07:00 Completed [facility] FLUZONE HIGH DOSE OVER 65 FLUZONE HIGH DOSE OVER 65 2020-07-15 10:07:00 Completed [facility] FLUZONE HIGH DOSE OVER 65 FLUZONE HIGH DOSE OVER 65 2020-07-15 10:07:00 Completed [facility] FLUZONE HIGH DOSE OVER 65 FLUZONE HIGH DOSE OVER 65 2020-07-15 10:07:00 Completed [facility] FLUZONE HIGH DOSE OVER 65 FLUZONE HIGH DOSE OVER 65 2020-07-15 10:07:00 Completed [facility] FLUZONE HIGH DOSE OVER 65 FLUZONE HIGH DOSE OVER 65 2020-07-15 10:07:00 Completed [facility] FLUZONE HIGH DOSE OVER 65 FLUZONE HIGH DOSE OVER 65 2020-07-15 10:07:00 Completed [facility] FLUZONE HIGH DOSE OVER 65 FLUZONE HIGH DOSE OVER 65 2020-07-15 10:07:00 Completed [facility] FLUZONE HIGH DOSE OVER 65 FLUZONE HIGH DOSE OVER 65 2020-07-15 10:07:00 Completed [facility] FLUZONE HIGH DOSE OVER 65 FLUZONE HIGH DOSE OVER 65 2020-07-15 10:07:00 Completed [facility] FLUZONE HIGH DOSE OVER 65 FLUZONE HIGH DOSE OVER 65 2020-07-15 10:07:00 Completed [facility] FLUZONE HIGH DOSE OVER 65 FLUZONE HIGH DOSE OVER 65 2020-07-15 10:07:00 Completed [facility] FLUZONE HIGH DOSE OVER 65 FLUZONE HIGH DOSE OVER 65 2020-07-15 10:07:00 Completed [facility] FLUZONE HIGH DOSE OVER 65 FLUZONE HIGH DOSE OVER 65 2019-08-13 14:41:00 Completed [facility] FLUZONE HIGH DOSE OVER 65 FLUZONE HIGH DOSE OVER 65 2019-08-13 14:41:00 Completed [facility] FLUZONE HIGH DOSE OVER 65 FLUZONE HIGH DOSE OVER 65 2019-08-13 14:41:00 Completed [facility] FLUZONE HIGH DOSE OVER 65 FLUZONE HIGH DOSE OVER 65 2019-08-13 14:41:00 Completed [facility] FLUZONE HIGH DOSE OVER 65 FLUZONE HIGH DOSE OVER 65 2019-08-13 14:41:00 Completed [facility] FLUZONE HIGH DOSE OVER 65 FLUZONE HIGH DOSE OVER 65 2019-08-13 14:41:00 Completed [facility] FLUZONE HIGH DOSE OVER 65 FLUZONE HIGH DOSE OVER 65 2019-08-13 14:41:00 Completed [facility] FLUZONE HIGH DOSE OVER 65 FLUZONE HIGH DOSE OVER 65 2019-08-13 14:41:00 Completed [facility] FLUZONE HIGH DOSE OVER 65 FLUZONE HIGH DOSE OVER 65 2019-08-13 14:41:00 Completed [facility] FLUZONE HIGH DOSE OVER 65 FLUZONE HIGH DOSE OVER 65 2019-08-13 14:41:00 Completed [facility] FLUZONE HIGH DOSE OVER 65 FLUZONE HIGH DOSE OVER 65 2019-08-13 14:41:00 Completed [facility] FLUZONE HIGH DOSE OVER 65 FLUZONE HIGH DOSE OVER 65 2019-08-13 14:41:00 Completed [facility] FLUZONE HIGH DOSE OVER 65 FLUZONE HIGH DOSE OVER 65 2019-08-13 14:41:00 Completed [facility] FLUZONE HIGH DOSE OVER 65 FLUZONE HIGH DOSE OVER 65 2019-08-13 14:41:00 Completed [facility] FLUZONE HIGH DOSE OVER 65 FLUZONE HIGH DOSE OVER 65 2019-08-13 14:41:00 Completed [facility] FLUZONE HIGH DOSE OVER 65 FLUZONE HIGH DOSE OVER 65 2019-08-13 14:41:00 Completed [facility] FLUZONE HIGH DOSE OVER 65 FLUZONE HIGH DOSE OVER 65 2019-08-13 14:41:00 Completed [facility] FLUZONE HIGH DOSE OVER 65 FLUZONE HIGH DOSE OVER 65 2019-08-13 14:41:00 Completed [facility] FLUZONE HIGH DOSE OVER 65 FLUZONE HIGH DOSE OVER 65 2019-08-13 14:41:00 Completed [facility] FLUZONE HIGH DOSE OVER 65 FLUZONE HIGH DOSE OVER 65 2018-08-15 11:52:00 Completed [facility] FLUZONE HIGH DOSE OVER 65 FLUZONE HIGH DOSE OVER 65 2018-08-15 11:52:00 Completed [facility] FLUZONE HIGH DOSE OVER 65 FLUZONE HIGH DOSE OVER 65 2018-08-15 11:52:00 Completed [facility] FLUZONE HIGH DOSE OVER 65 FLUZONE HIGH DOSE OVER 65 2018-08-15 11:52:00 Completed [facility] FLUZONE HIGH DOSE OVER 65 FLUZONE HIGH DOSE OVER 65 2018-08-15 11:52:00 Completed [facility] FLUZONE HIGH DOSE OVER 65 FLUZONE HIGH DOSE OVER 65 2018-08-15 11:52:00 Completed [facility] FLUZONE HIGH DOSE OVER 65 FLUZONE HIGH DOSE OVER 65 2018-08-15 11:52:00 Completed [facility] FLUZONE HIGH DOSE OVER 65 FLUZONE HIGH DOSE OVER 65 2018-08-15 11:52:00 Completed [facility] FLUZONE HIGH DOSE OVER 65 FLUZONE HIGH DOSE OVER 65 2018-08-15 11:52:00 Completed [facility] FLUZONE HIGH DOSE OVER 65 FLUZONE HIGH DOSE OVER 65 2018-08-15 11:52:00 Completed [facility] FLUZONE HIGH DOSE OVER 65 FLUZONE HIGH DOSE OVER 65 2018-08-15 11:52:00 Completed [facility] FLUZONE HIGH DOSE OVER 65 FLUZONE HIGH DOSE OVER 65 2018-08-15 11:52:00 Completed [facility] FLUZONE HIGH DOSE OVER 65 FLUZONE HIGH DOSE OVER 65 2018-08-15 11:52:00 Completed [facility] FLUZONE HIGH DOSE OVER 65 FLUZONE HIGH DOSE OVER 65 2018-08-15 11:52:00 Completed [facility] FLUZONE HIGH DOSE OVER 65 FLUZONE HIGH DOSE OVER 65 2018-08-15 11:52:00 Completed [facility] FLUZONE HIGH DOSE OVER 65 FLUZONE HIGH DOSE OVER 65 2018-08-15 11:52:00 Completed [facility] FLUZONE HIGH DOSE OVER 65 FLUZONE HIGH DOSE OVER 65 2018-08-15 11:52:00 Completed [facility] FLUZONE HIGH DOSE OVER 65 FLUZONE HIGH DOSE OVER 65 2018-08-15 11:52:00 Completed [facility] FLUZONE HIGH DOSE OVER 65 FLUZONE HIGH DOSE OVER 65 2018-08-15 11:52:00 Completed [facility] Moderna COVID-19 Vaccine (Low Dose Booster) Moderna COVID-19 Vaccine (Low Dose Booster) Unknown Completed [facility] Moderna COVID-19 Vaccine Moderna COVID-19 Vaccine Unknown Completed [facility] Moderna COVID-19 Vaccine Moderna COVID-19 Vaccine Unknown Completed [facility] FLUZONE HIGH DOSE OVER 65 FLUZONE HIGH DOSE OVER 65 Unknown Completed [facility] FLUZONE HIGH DOSE OVER 65 FLUZONE HIGH DOSE OVER 65 Unknown Completed [facility] FLUZONE HIGH DOSE OVER 65 FLUZONE HIGH DOSE OVER 65 Unknown Completed [facility] FLUZONE HIGH DOSE OVER 65 FLUZONE HIGH DOSE OVER 65 Unknown Completed [facility] Moderna COVID-19 Vaccine (Low Dose Booster) Moderna COVID-19 Vaccine (Low Dose Booster) Unknown Completed [facility] Moderna COVID-19 Vaccine Moderna COVID-19 Vaccine Unknown Completed [facility] Moderna COVID-19 Vaccine Moderna COVID-19 Vaccine Unknown Completed [facility] FLUZONE HIGH DOSE OVER 65 FLUZONE HIGH DOSE OVER 65 Unknown Completed [facility] FLUZONE HIGH DOSE OVER 65 FLUZONE HIGH DOSE OVER 65 Unknown Completed [facility] FLUZONE HIGH DOSE OVER 65 FLUZONE HIGH DOSE OVER 65 Unknown Completed [facility] FLUZONE HIGH DOSE OVER 65 FLUZONE HIGH DOSE OVER 65 Unknown Completed [facility] Moderna COVID-19 Vaccine (Low Dose Booster) Moderna COVID-19 Vaccine (Low Dose Booster) Unknown Completed [facility] Moderna COVID-19 Vaccine Moderna COVID-19 Vaccine Unknown Completed [facility] Moderna COVID-19 Vaccine Moderna COVID-19 Vaccine Unknown Completed [facility] FLUZONE HIGH DOSE OVER 65 FLUZONE HIGH DOSE OVER 65 Unknown Completed [facility] FLUZONE HIGH DOSE OVER 65 FLUZONE HIGH DOSE OVER 65 Unknown Completed [facility] FLUZONE HIGH DOSE OVER 65 FLUZONE HIGH DOSE OVER 65 Unknown Completed [facility] FLUZONE HIGH DOSE OVER 65 FLUZONE HIGH DOSE OVER 65 Unknown Completed [facility] Moderna COVID-19 Vaccine (Low Dose Booster) Moderna COVID-19 Vaccine (Low Dose Booster) Unknown Completed [facility] Moderna COVID-19 Vaccine Moderna COVID-19 Vaccine Unknown Completed [facility] Moderna COVID-19 Vaccine Moderna COVID-19 Vaccine Unknown Completed [facility] FLUZONE HIGH DOSE OVER 65 FLUZONE HIGH DOSE OVER 65 Unknown Completed [facility] FLUZONE HIGH DOSE OVER 65 FLUZONE HIGH DOSE OVER 65 Unknown Completed [facility] FLUZONE HIGH DOSE OVER 65 FLUZONE HIGH DOSE OVER 65 Unknown Completed [facility] FLUZONE HIGH DOSE OVER 65 FLUZONE HIGH DOSE OVER 65 Unknown Completed [facility] Moderna COVID-19 Vaccine (Low Dose Booster) Moderna COVID-19 Vaccine (Low Dose Booster) Unknown Completed [facility] Moderna COVID-19 Vaccine Moderna COVID-19 Vaccine Unknown Completed [facility] Moderna COVID-19 Vaccine Moderna COVID-19 Vaccine Unknown Completed [facility] FLUZONE HIGH DOSE OVER 65 FLUZONE HIGH DOSE OVER 65 Unknown Completed [facility] FLUZONE HIGH DOSE OVER 65 FLUZONE HIGH DOSE OVER 65 Unknown Completed [facility] FLUZONE HIGH DOSE OVER 65 FLUZONE HIGH DOSE OVER 65 Unknown Completed [facility] FLUZONE HIGH DOSE OVER 65 FLUZONE HIGH DOSE OVER 65 Unknown Completed [facility] Moderna COVID-19 Vaccine (Low Dose Booster) Moderna COVID-19 Vaccine (Low Dose Booster) Unknown Completed [facility] Moderna COVID-19 Vaccine Moderna COVID-19 Vaccine Unknown Completed [facility] Moderna COVID-19 Vaccine Moderna COVID-19 Vaccine Unknown Completed [facility] FLUZONE HIGH DOSE OVER 65 FLUZONE HIGH DOSE OVER 65 Unknown Completed [facility] FLUZONE HIGH DOSE OVER 65 FLUZONE HIGH DOSE OVER 65 Unknown Completed [facility] FLUZONE HIGH DOSE OVER 65 FLUZONE HIGH DOSE OVER 65 Unknown Completed [facility] FLUZONE HIGH DOSE OVER 65 FLUZONE HIGH DOSE OVER 65 Unknown Completed [facility] MODERNA COVID-19 VACCINE (LOW DOSE BOOSTER) MODERNA COVID-19 VACCINE (LOW DOSE BOOSTER) Unknown Completed [facility] Moderna COVID-19 Vaccine Moderna COVID-19 Vaccine Unknown Completed [facility] Moderna COVID-19 Vaccine Moderna COVID-19 Vaccine Unknown Completed [facility] FLUZONE HIGH DOSE OVER 65 FLUZONE HIGH DOSE OVER 65 Unknown Completed [facility] FLUZONE HIGH DOSE OVER 65 FLUZONE HIGH DOSE OVER 65 Unknown Completed [facility] FLUZONE HIGH DOSE OVER 65 FLUZONE HIGH DOSE OVER 65 Unknown Completed [facility] FLUZONE HIGH DOSE OVER 65 FLUZONE HIGH DOSE OVER 65 Unknown Completed [facility] MODERNA COVID-19 VACCINE (LOW DOSE BOOSTER) MODERNA COVID-19 VACCINE (LOW DOSE BOOSTER) Unknown Completed [facility] Moderna COVID-19 Vaccine Moderna COVID-19 Vaccine Unknown Completed [facility] Moderna COVID-19 Vaccine Moderna COVID-19 Vaccine Unknown Completed [facility] FLUZONE HIGH DOSE OVER 65 FLUZONE HIGH DOSE OVER 65 Unknown Completed [facility] FLUZONE HIGH DOSE OVER 65 FLUZONE HIGH DOSE OVER 65 Unknown Completed [facility] FLUZONE HIGH DOSE OVER 65 FLUZONE HIGH DOSE OVER 65 Unknown Completed [facility] FLUZONE HIGH DOSE OVER 65 FLUZONE HIGH DOSE OVER 65 Unknown Completed [facility] MODERNA COVID-19 VACCINE (LOW DOSE BOOSTER) MODERNA COVID-19 VACCINE (LOW DOSE BOOSTER) Unknown Completed [facility] Moderna COVID-19 Vaccine Moderna COVID-19 Vaccine Unknown Completed [facility] Moderna COVID-19 Vaccine Moderna COVID-19 Vaccine Unknown Completed [facility] FLUZONE HIGH DOSE OVER 65 FLUZONE HIGH DOSE OVER 65 Unknown Completed [facility] FLUZONE HIGH DOSE OVER 65 FLUZONE HIGH DOSE OVER 65 Unknown Completed [facility] FLUZONE HIGH DOSE OVER 65 FLUZONE HIGH DOSE OVER 65 Unknown Completed [facility] FLUZONE HIGH DOSE OVER 65 FLUZONE HIGH DOSE OVER 65 Unknown Completed [facility] MODERNA COVID-19 VACCINE (LOW DOSE BOOSTER) MODERNA COVID-19 VACCINE (LOW DOSE BOOSTER) Unknown Completed [facility] Moderna COVID-19 Vaccine Moderna COVID-19 Vaccine Unknown Completed [facility] Moderna COVID-19 Vaccine Moderna COVID-19 Vaccine Unknown Completed [facility] FLUZONE HIGH DOSE OVER 65 FLUZONE HIGH DOSE OVER 65 Unknown Completed [facility] FLUZONE HIGH DOSE OVER 65 FLUZONE HIGH DOSE OVER 65 Unknown Completed [facility] FLUZONE HIGH DOSE OVER 65 FLUZONE HIGH DOSE OVER 65 Unknown Completed [facility] FLUZONE HIGH DOSE OVER 65 FLUZONE HIGH DOSE OVER 65 Unknown Completed [facility] MODERNA COVID-19 VACCINE (LOW DOSE BOOSTER) MODERNA COVID-19 VACCINE (LOW DOSE BOOSTER) Unknown Completed [facility] Moderna COVID-19 Vaccine Moderna COVID-19 Vaccine Unknown Completed [facility] Moderna COVID-19 Vaccine Moderna COVID-19 Vaccine Unknown Completed [facility] FLUZONE HIGH DOSE OVER 65 FLUZONE HIGH DOSE OVER 65 Unknown Completed [facility] FLUZONE HIGH DOSE OVER 65 FLUZONE HIGH DOSE OVER 65 Unknown Completed [facility] FLUZONE HIGH DOSE OVER 65 FLUZONE HIGH DOSE OVER 65 Unknown Completed [facility] FLUZONE HIGH DOSE OVER 65 FLUZONE HIGH DOSE OVER 65 Unknown Completed [facility] MODERNA COVID-19 VACCINE (LOW DOSE BOOSTER) MODERNA COVID-19 VACCINE (LOW DOSE BOOSTER) Unknown Completed [facility] Moderna COVID-19 Vaccine Moderna COVID-19 Vaccine Unknown Completed [facility] Moderna COVID-19 Vaccine Moderna COVID-19 Vaccine Unknown Completed [facility] FLUZONE HIGH DOSE OVER 65 FLUZONE HIGH DOSE OVER 65 Unknown Completed [facility] FLUZONE HIGH DOSE OVER 65 FLUZONE HIGH DOSE OVER 65 Unknown Completed [facility] FLUZONE HIGH DOSE OVER 65 FLUZONE HIGH DOSE OVER 65 Unknown Completed [facility] FLUZONE HIGH DOSE OVER 65 FLUZONE HIGH DOSE OVER 65 Unknown Completed [facility] MODERNA COVID-19 VACCINE (LOW DOSE BOOSTER) MODERNA COVID-19 VACCINE (LOW DOSE BOOSTER) Unknown Completed [facility] Moderna COVID-19 Vaccine Moderna COVID-19 Vaccine Unknown Completed [facility] Moderna COVID-19 Vaccine Moderna COVID-19 Vaccine Unknown Completed [facility] FLUZONE HIGH DOSE OVER 65 FLUZONE HIGH DOSE OVER 65 Unknown Completed [facility] FLUZONE HIGH DOSE OVER 65 FLUZONE HIGH DOSE OVER 65 Unknown Completed [facility] FLUZONE HIGH DOSE OVER 65 FLUZONE HIGH DOSE OVER 65 Unknown Completed [facility] FLUZONE HIGH DOSE OVER 65 FLUZONE HIGH DOSE OVER 65 Unknown Completed [facility] MODERNA COVID-19 VACCINE (LOW DOSE BOOSTER) MODERNA COVID-19 VACCINE (LOW DOSE BOOSTER) Unknown Completed [facility] Moderna COVID-19 Vaccine Moderna COVID-19 Vaccine Unknown Completed [facility] Moderna COVID-19 Vaccine Moderna COVID-19 Vaccine Unknown Completed [facility] FLUZONE HIGH DOSE OVER 65 FLUZONE HIGH DOSE OVER 65 Unknown Completed [facility] FLUZONE HIGH DOSE OVER 65 FLUZONE HIGH DOSE OVER 65 Unknown Completed [facility] FLUZONE HIGH DOSE OVER 65 FLUZONE HIGH DOSE OVER 65 Unknown Completed [facility] FLUZONE HIGH DOSE OVER 65 FLUZONE HIGH DOSE OVER 65 Unknown Completed [facility] MODERNA COVID-19 VACCINE (LOW DOSE BOOSTER) MODERNA COVID-19 VACCINE (LOW DOSE BOOSTER) Unknown Completed [facility] Moderna COVID-19 Vaccine Moderna COVID-19 Vaccine Unknown Completed [facility] Moderna COVID-19 Vaccine Moderna COVID-19 Vaccine Unknown Completed [facility] FLUZONE HIGH DOSE OVER 65 FLUZONE HIGH DOSE OVER 65 Unknown Completed [facility] FLUZONE HIGH DOSE OVER 65 FLUZONE HIGH DOSE OVER 65 Unknown Completed [facility] FLUZONE HIGH DOSE OVER 65 FLUZONE HIGH DOSE OVER 65 Unknown Completed [facility] FLUZONE HIGH DOSE OVER 65 FLUZONE HIGH DOSE OVER 65 Unknown Completed [facility] MODERNA COVID-19 VACCINE (LOW DOSE BOOSTER) MODERNA COVID-19 VACCINE (LOW DOSE BOOSTER) Unknown Completed [facility] Moderna COVID-19 Vaccine Moderna COVID-19 Vaccine Unknown Completed [facility] Moderna COVID-19 Vaccine Moderna COVID-19 Vaccine Unknown Completed [facility] FLUZONE HIGH DOSE OVER 65 FLUZONE HIGH DOSE OVER 65 Unknown Completed [facility] FLUZONE HIGH DOSE OVER 65 FLUZONE HIGH DOSE OVER 65 Unknown Completed [facility] FLUZONE HIGH DOSE OVER 65 FLUZONE HIGH DOSE OVER 65 Unknown Completed [facility] FLUZONE HIGH DOSE OVER 65 FLUZONE HIGH DOSE OVER 65 Unknown Completed [facility] MODERNA COVID-19 VACCINE (LOW DOSE BOOSTER) MODERNA COVID-19 VACCINE (LOW DOSE BOOSTER) Unknown Completed [facility] Moderna COVID-19 Vaccine Moderna COVID-19 Vaccine Unknown Completed [facility] Moderna COVID-19 Vaccine Moderna COVID-19 Vaccine Unknown Completed [facility] FLUZONE HIGH DOSE OVER 65 FLUZONE HIGH DOSE OVER 65 Unknown Completed [facility] FLUZONE HIGH DOSE OVER 65 FLUZONE HIGH DOSE OVER 65 Unknown Completed [facility] FLUZONE HIGH DOSE OVER 65 FLUZONE HIGH DOSE OVER 65 Unknown Completed [facility] FLUZONE HIGH DOSE OVER 65 FLUZONE HIGH DOSE OVER 65 Unknown Completed [facility] MODERNA COVID-19 VACCINE (LOW DOSE BOOSTER) MODERNA COVID-19 VACCINE (LOW DOSE BOOSTER) Unknown Completed [facility] Moderna COVID-19 Vaccine Moderna COVID-19 Vaccine Unknown Completed [facility] Moderna COVID-19 Vaccine Moderna COVID-19 Vaccine Unknown Completed [facility] FLUZONE HIGH DOSE OVER 65 FLUZONE HIGH DOSE OVER 65 Unknown Completed [facility] FLUZONE HIGH DOSE OVER 65 FLUZONE HIGH DOSE OVER 65 Unknown Completed [facility] FLUZONE HIGH DOSE OVER 65 FLUZONE HIGH DOSE OVER 65 Unknown Completed [facility] FLUZONE HIGH DOSE OVER 65 FLUZONE HIGH DOSE OVER 65 Unknown Completed [facility] MODERNA COVID-19 VACCINE (LOW DOSE BOOSTER) MODERNA COVID-19 VACCINE (LOW DOSE BOOSTER) Unknown Completed [facility] Moderna COVID-19 Vaccine Moderna COVID-19 Vaccine Unknown Completed [facility] Moderna COVID-19 Vaccine Moderna COVID-19 Vaccine Unknown Completed [facility] FLUZONE HIGH DOSE OVER 65 FLUZONE HIGH DOSE OVER 65 Unknown Completed [facility] FLUZONE HIGH DOSE OVER 65 FLUZONE HIGH DOSE OVER 65 Unknown Completed [facility] FLUZONE HIGH DOSE OVER 65 FLUZONE HIGH DOSE OVER 65 Unknown Completed [facility] FLUZONE HIGH DOSE OVER 65 FLUZONE HIGH DOSE OVER 65 Unknown Completed [facility] Moderna COVID-19 Vaccine (Low Dose Booster) Moderna COVID-19 Vaccine (Low Dose Booster) Unknown Completed [facility] Moderna COVID-19 Vaccine Moderna COVID-19 Vaccine Unknown Completed [facility] Moderna COVID-19 Vaccine Moderna COVID-19 Vaccine Unknown Completed [facility] FLUZONE HIGH DOSE OVER 65 FLUZONE HIGH DOSE OVER 65 Unknown Completed [facility] FLUZONE HIGH DOSE OVER 65 FLUZONE HIGH DOSE OVER 65 Unknown Completed [facility] FLUZONE HIGH DOSE OVER 65 FLUZONE HIGH DOSE OVER 65 Unknown Completed [facility] FLUZONE HIGH DOSE OVER 65 FLUZONE HIGH DOSE OVER 65 Unknown Completed [facility] Moderna COVID-19 Vaccine (Low Dose Booster) Moderna COVID-19 Vaccine (Low Dose Booster) Unknown Completed [facility] Moderna COVID-19 Vaccine Moderna COVID-19 Vaccine Unknown Completed [facility] Moderna COVID-19 Vaccine Moderna COVID-19 Vaccine Unknown Completed [facility] FLUZONE HIGH DOSE OVER 65 FLUZONE HIGH DOSE OVER 65 Unknown Completed [facility] FLUZONE HIGH DOSE OVER 65 FLUZONE HIGH DOSE OVER 65 Unknown Completed [facility] FLUZONE HIGH DOSE OVER 65 FLUZONE HIGH DOSE OVER 65 Unknown Completed [facility] FLUZONE HIGH DOSE OVER 65 FLUZONE HIGH DOSE OVER 65 Unknown Completed [facility] Moderna COVID-19 Vaccine (Low Dose Booster) Moderna COVID-19 Vaccine (Low Dose Booster) Unknown Completed [facility] Moderna COVID-19 Vaccine Moderna COVID-19 Vaccine Unknown Completed [facility] Moderna COVID-19 Vaccine Moderna COVID-19 Vaccine Unknown Completed [facility] FLUZONE HIGH DOSE OVER 65 FLUZONE HIGH DOSE OVER 65 Unknown Completed [facility] FLUZONE HIGH DOSE OVER 65 FLUZONE HIGH DOSE OVER 65 Unknown Completed [facility] FLUZONE HIGH DOSE OVER 65 FLUZONE HIGH DOSE OVER 65 Unknown Completed [facility] FLUZONE HIGH DOSE OVER 65 FLUZONE HIGH DOSE OVER 65 Unknown Completed [facility] Moderna COVID-19 Vaccine (Low Dose Booster) Moderna COVID-19 Vaccine (Low Dose Booster) Unknown Completed [facility] Moderna COVID-19 Vaccine Moderna COVID-19 Vaccine Unknown Completed [facility] Moderna COVID-19 Vaccine Moderna COVID-19 Vaccine Unknown Completed [facility] FLUZONE HIGH DOSE OVER 65 FLUZONE HIGH DOSE OVER 65 Unknown Completed [facility] FLUZONE HIGH DOSE OVER 65 FLUZONE HIGH DOSE OVER 65 Unknown Completed [facility] FLUZONE HIGH DOSE OVER 65 FLUZONE HIGH DOSE OVER 65 Unknown Completed [facility] FLUZONE HIGH DOSE OVER 65 FLUZONE HIGH DOSE OVER 65 Unknown Completed [facility] Moderna COVID-19 Vaccine (Low Dose Booster) Moderna COVID-19 Vaccine (Low Dose Booster) Unknown Completed [facility] Moderna COVID-19 Vaccine Moderna COVID-19 Vaccine Unknown Completed [facility] Moderna COVID-19 Vaccine Moderna COVID-19 Vaccine Unknown Completed [facility] FLUZONE HIGH DOSE OVER 65 FLUZONE HIGH DOSE OVER 65 Unknown Completed [facility] FLUZONE HIGH DOSE OVER 65 FLUZONE HIGH DOSE OVER 65 Unknown Completed [facility] FLUZONE HIGH DOSE OVER 65 FLUZONE HIGH DOSE OVER 65 Unknown Completed [facility] FLUZONE HIGH DOSE OVER 65 FLUZONE HIGH DOSE OVER 65 Unknown Completed [facility] Moderna COVID-19 Vaccine (Low Dose Booster) Moderna COVID-19 Vaccine (Low Dose Booster) Unknown Completed [facility] Moderna COVID-19 Vaccine Moderna COVID-19 Vaccine Unknown Completed [facility] Moderna COVID-19 Vaccine Moderna COVID-19 Vaccine Unknown Completed [facility] FLUZONE HIGH DOSE OVER 65 FLUZONE HIGH DOSE OVER 65 Unknown Completed [facility] FLUZONE HIGH DOSE OVER 65 FLUZONE HIGH DOSE OVER 65 Unknown Completed [facility] FLUZONE HIGH DOSE OVER 65 FLUZONE HIGH DOSE OVER 65 Unknown Completed [facility] FLUZONE HIGH DOSE OVER 65 FLUZONE HIGH DOSE OVER 65 Unknown Completed [facility] Moderna COVID-19 Vaccine (Low Dose Booster) Moderna COVID-19 Vaccine (Low Dose Booster) Unknown Completed [facility] Moderna COVID-19 Vaccine Moderna COVID-19 Vaccine Unknown Completed [facility] Moderna COVID-19 Vaccine Moderna COVID-19 Vaccine Unknown Completed [facility] FLUZONE HIGH DOSE OVER 65 FLUZONE HIGH DOSE OVER 65 Unknown Completed [facility] FLUZONE HIGH DOSE OVER 65 FLUZONE HIGH DOSE OVER 65 Unknown Completed [facility] FLUZONE HIGH DOSE OVER 65 FLUZONE HIGH DOSE OVER 65 Unknown Completed [facility] FLUZONE HIGH DOSE OVER 65 FLUZONE HIGH DOSE OVER 65 Unknown Completed [facility] Moderna COVID-19 Vaccine (Low Dose Booster) Moderna COVID-19 Vaccine (Low Dose Booster) Unknown Completed [facility] Moderna COVID-19 Vaccine Moderna COVID-19 Vaccine Unknown Completed [facility] Moderna COVID-19 Vaccine Moderna COVID-19 Vaccine Unknown Completed [facility] FLUZONE HIGH DOSE OVER 65 FLUZONE HIGH DOSE OVER 65 Unknown Completed [facility] FLUZONE HIGH DOSE OVER 65 FLUZONE HIGH DOSE OVER 65 Unknown Completed [facility] FLUZONE HIGH DOSE OVER 65 FLUZONE HIGH DOSE OVER 65 Unknown Completed [facility] FLUZONE HIGH DOSE OVER 65 FLUZONE HIGH DOSE OVER 65 Unknown Completed [facility] Moderna COVID-19 Vaccine (Low Dose Booster) Moderna COVID-19 Vaccine (Low Dose Booster) Unknown Completed [facility] Moderna COVID-19 Vaccine Moderna COVID-19 Vaccine Unknown Completed [facility] Moderna COVID-19 Vaccine Moderna COVID-19 Vaccine Unknown Completed [facility] FLUZONE HIGH DOSE OVER 65 FLUZONE HIGH DOSE OVER 65 Unknown Completed [facility] FLUZONE HIGH DOSE OVER 65 FLUZONE HIGH DOSE OVER 65 Unknown Completed [facility] FLUZONE HIGH DOSE OVER 65 FLUZONE HIGH DOSE OVER 65 Unknown Completed [facility] FLUZONE HIGH DOSE OVER 65 FLUZONE HIGH DOSE OVER 65 Unknown Completed [facility] Vital Signs Vital Name Observation Time Observation Value Comments S ource height 2023-12-25 10:30:00 71 [in_i] Commo n [facility] weight 2023-12-25 10:30:00 144.6 [lb_av] Co mmon [facility] temperature 2023-12-25 10:30:00 97.7 [degF] Com mon [facility] bmi 2023-12-25 10:30:00 20.17 kg/m2 Comm on [facility] oximetry 2023-12-25 10:30:00 99 % Commo n [facility] respiratory rate 2023-12-25 10:30:00 16 /min [facility] blood pressure systolic 2023-12-25 10:30:00 110 mm[Hg] Common [facility] blood pressure diastolic 2023-12-25 10:30:00 62 mm[Hg] Common [facility] height 2023-12-25 10:30:00 71 [in_i] Commo n [facility] weight 2023-12-25 10:30:00 144.6 [facility] 10:30:00 97.7 [degF] Com mon [facility] bmi 2023-12-25 10:30:00 20.17 kg/m2 Comm on [facility] oximetry 2023-12-25 10:30:00 99 % Commo [facility] blood pressure systolic 2023-12-25 10:30:00 110 mm[Hg] [facility] blood pressure diastolic 2023-12-25 10:30:00 62 mm[Hg] [facility] Systolic blood pressure 2023-12-24 15:22:00 146 mm[Hg] [facility] Diastolic blood pressure 2023-12-24 15:22:00 72 mm[Hg] [facility] Heart rate 2023-12-24 15:22:00 77 /min [facility] Body temperature 2023-12-24 15:18:00 36.22 [facility] height 2023-12-24 15:18:00 180.3 cm [facility] 2023-12-24 15:18:00 65.772 [facility] BMI 2023-12-24 15:18:00 20.22 kg/m2 [facility] height 2023-11-07 09:45:00 71 [in_i] Commo n [facility] weight 2023-11-07 09:45:00 143.2 [lb_av] Co [facility] temperature 2023-11-07 09:45:00 97.9 [degF] Com mon [facility] bmi 2023-11-07 09:45:00 19.97 kg/m2 Comm on [facility] oximetry 2023-11-07 09:45:00 96 % Commo n [facility] respiratory rate 2023-11-07 09:45:00 17 /min Common [facility] blood pressure systolic 2023-11-07 09:45:00 110 mm[Hg] [facility] blood pressure diastolic 2023-11-07 09:45:00 57 mm[Hg] [facility] height 2023-07-19 11:20:00 71 [in_i] Commo n [facility] weight 2023-07-19 11:20:00 145 [lb_av] Comm on [facility] temperature 2023-07-19 11:20:00 98.6 [degF] Com [facility] bmi 2023-07-19 11:20:00 20.22 kg/m2 Comm on [facility] blood pressure systolic 2023-07-19 11:20:00 122 mm[Hg] [facility] blood pressure diastolic 2023-07-19 11:20:00 67 mm[Hg] [facility] height 2023-05-03 14:30:00 71 [in_i] Commo n [facility] weight 2023-05-03 14:30:00 150 [lb_av] Comm on [facility] temperature 2023-05-03 14:30:00 98.4 [degF] Com [facility] bmi 2023-05-03 14:30:00 20.92 kg/m2 Comm on [facility] oximetry 2023-05-03 14:30:00 100 % Commo n [facility] respiratory rate 2023-05-03 14:30:00 16 /min Common [facility] blood pressure systolic 2023-05-03 14:30:00 118 mm[Hg] Common [facility] blood pressure diastolic 2023-05-03 14:30:00 58 mm[Hg] Common [facility] height 2023-02-15 14:15:00 71 [in_i] Commo n [facility] weight 2023-02-15 14:15:00 148.6 [lb_av] Co mmon [facility] temperature 2023-02-15 14:15:00 97.6 [degF] Com mon [facility] bmi 2023-02-15 14:15:00 20.72 kg/m2 Comm on [facility] oximetry 2023-02-15 14:15:00 97 % Commo n [facility] respiratory rate 2023-02-15 14:15:00 18 /min Common [facility] blood pressure systolic 2023-02-15 14:15:00 114 mm[Hg] Common [facility] blood pressure diastolic 2023-02-15 14:15:00 65 mm[Hg] Common [facility] height 2022-12-11 13:00:00 71 [in_i] Commo n [facility] weight 2022-12-11 13:00:00 140 [lb_av] Comm on [facility] temperature 2022-12-11 13:00:00 97.4 [degF] Com mon [facility] bmi 2022-12-11 13:00:00 19.52 kg/m2 Comm on [facility] oximetry 2022-12-11 13:00:00 95 % Commo n [facility] respiratory rate 2022-12-11 13:00:00 16 /min Common [facility] blood pressure systolic 2022-12-11 13:00:00 120 mm[Hg] [facility] diastolic 2022-12-11 13:00:00 59 mm[Hg] Common [facility] height 2022-11-17 10:45:00 71 [in_i] Commo n [facility] weight 2022-11-17 10:45:00 140 [lb_av] Comm on [facility] temperature 2022-11-17 10:45:00 98.0 [degF] Com mon [facility] bmi 2022-11-17 10:45:00 19.52 kg/m2 Comm on [facility] oximetry 2022-11-17 10:45:00 98 % Commo n [facility] respiratory rate 2022-11-17 10:45:00 18 /min Common [facility] blood pressure systolic 2022-11-17 10:45:00 87 mm[Hg] [facility] blood pressure diastolic 2022-11-17 10:45:00 52 mm[Hg] [facility] height 2022-11-10 09:40:00 71 [in_i] Commo n [facility] weight 2022-11-10 09:40:00 150 [lb_av] Comm on [facility] temperature 2022-11-10 09:40:00 97.2 [degF] Com [facility] bmi 2022-11-10 09:40:00 20.92 kg/m2 Comm on [facility] oximetry 2022-11-10 09:40:00 100 % Commo n [facility] respiratory rate 2022-11-10 09:40:00 18 /min Common [facility] blood pressure systolic 2022-11-10 09:40:00 110 mm[Hg] [facility] blood pressure diastolic 2022-11-10 09:40:00 60 mm[Hg] Common [facility] height 2022-10-18 08:00:00 71 [in_i] Commo n [facility] weight 2022-10-18 08:00:00 152 [lb_av] Comm on [facility] temperature 2022-10-18 08:00:00 97.4 [degF] Com mon [facility] bmi 2022-10-18 08:00:00 21.2 kg/m2 Commo n [facility] blood pressure systolic 2022-10-18 08:00:00 125 mm[Hg] [facility] blood pressure diastolic 2022-10-18 08:00:00 70 mm[Hg] [facility] height 2022-07-05 16:00:00 71 [in_i] Commo n [facility] weight 2022-07-05 16:00:00 150 [lb_av] Comm on [facility] temperature 2022-07-05 16:00:00 98 [degF] Comm on [facility] bmi 2022-07-05 16:00:00 20.92 kg/m2 Comm on [facility] blood pressure systolic 2022-07-05 16:00:00 119 mm[Hg] Common [facility] blood pressure diastolic 2022-07-05 16:00:00 75 mm[Hg] [facility] height 2022-07-05 15:30:00 71 [in_i] Commo n [facility] weight 2022-07-05 15:30:00 150 [lb_av] Comm on [facility] temperature 2022-07-05 15:30:00 98 [degF] Comm on [facility] bmi 2022-07-05 15:30:00 20.92 kg/m2 Comm on [facility] blood pressure systolic 2022-07-05 15:30:00 119 mm[Hg] Common [facility] blood pressure diastolic 2022-07-05 15:30:00 75 mm[Hg] Common [facility] height 2022-05-31 16:20:00 71 [in_i] Commo n [facility] weight 2022-05-31 16:20:00 150.0 [lb_av] Co mmon [facility] temperature 2022-05-31 16:20:00 98.2 [degF] Com [facility] bmi 2022-05-31 16:20:00 20.92 kg/m2 Comm on [facility] oximetry 2022-05-31 16:20:00 97 % Commo n [facility] respiratory rate 2022-05-31 16:20:00 18 /min Common [facility] blood pressure systolic 2022-05-31 16:20:00 122 mm[Hg] Common [facility] blood pressure diastolic 2022-05-31 16:20:00 58 mm[Hg] [facility] Systolic blood pressure 2022-04-11 18:12:00 153 mm[Hg] [facility] Diastolic blood pressure 2022-04-11 18:12:00 69 mm[Hg] [facility] Heart rate 2022-04-11 18:12:00 71 /min [facility] height 2022-03-22 13:00:00 71 [in_i] Commo n [facility] weight 2022-03-22 13:00:00 150 [lb_av] Comm on [facility] temperature 2022-03-22 13:00:00 98.2 [degF] Com [facility] bmi 2022-03-22 13:00:00 20.92 kg/m2 Comm on [facility] oximetry 2022-03-22 13:00:00 99 % Commo n [facility] respiratory rate 2022-03-22 13:00:00 17 /min [facility] blood pressure systolic 2022-03-22 13:00:00 90 mm[Hg] [facility] blood pressure diastolic 2022-03-22 13:00:00 54 mm[Hg] [facility] Procedures Procedure Date / Time Performed Performing Clinicia n Source PVR 2023-11-07 00:00:00 Common S [facility] PVR 2023-02-15 00:00:00 [facility] HEAVY METALS SCREEN, URINE 2022-04-18 20:15:00 LulSandovalLewis [facility] VITAMIN B12 2022-04-14 00:00:00 LulSandovalLewis [facility] TSH 2022-04-14 00:00:00 LulSandovalLewis [facility] COPPER 2022-04-14 00:00:00 LulSandovalLewis [facility] Encounters Start Date/Time End Date/Time Encounter Type Admission Type Attending [facility] Care Facility Care Department Encounter ID Source 2024-06-10 09:10:00 Outpatient Leticia Lake [facility] [id number] [facility] 2023-12-25 10:49:00 Outpatient Leticia Lake [facility] [id number] [facility] 2023-04-19 09:20:46 Outpatient [facility] [id number] [facility] 2023-04-12 13:45:31 Outpatient [facility] [id number] [facility] 2023-01-16 13:50:03 Outpatient Real, Barrie [facility] [id number] [facility] 2022-11-09 11:19:01 Outpatient Real, [facility] [id number] [facility] 2022-11-08 07:33:01 [facility] [id number] [facility] 2022-10-16 08:41:01 Outpatient Real, Barrie [facility] [id number] [facility] 2022-08-11 13:29:47 Outpatient [facility] [id number] [facility] 2022-07-18 11:13:04 Outpatient Real, Barrie [facility] [id number] [facility] 2022-07-13 14:05:03 [facility] [id number] [facility] 2022-07-06 15:56:01 Outpatient Real, Barrie STLC STLMLC [facility] 2022-06-01 14:08:02 Outpatient Real, Barrie STLC STLMLC [facility] 2022-04-13 15:18:02 Outpatient Real, Barrie STLC STLMLC [facility] 2022-03-22 13:05:02 Outpatient Real, Barrie STLC STLMLC [facility] 2022-03-13 09:23:09 Outpatient 3 Javier Weinstein ENCPL CVA [id number] [facility] 2022-03-07 10:47:49 Outpatient 3 Javier Weinstein ENCPL CVA [id number] [facility] 2022-03-06 11:03:26 Outpatient 3 [id number] ENCPL REF [id number] [facility] 2020-12-11 23:40:36 Inpatient HCAPM HCAPM [id number] [facility] 2024-06-10 00:00:00 2024-06-10 00:00:00 (TEL) STLMLC STLMLC [id number] [facility] 2024-02-04 09:00:00 2024-02-04 09:00:00 Outpatient TARA NIEVES [facility] [id number] [facility] 2024-01-24 00:00:00 2024-01-24 00:00:00 OFFICE VISIT ESTAB PT LEVEL 4 STLMLC STLMLC [id number] [facility] 2024-01-24 00:00:00 2024-01-24 00:00:00 (TEL) STLMLC STLMLC [id number] [facility] 2024-01-14 00:00:00 2024-01-14 00:00:00 (TEL) STLMLC STLMLC [id number] [facility] 2024-01-03 00:00:00 2024-01-03 00:00:00 (TEL) STLMLC STLMLC [id number] [facility] 2024-01-02 00:00:00 2024-01-02 00:00:00 (TEL) STLMLC STLMLC [id number] [facility] 2024-01-01 00:00:00 2024-01-01 00:00:00 (TEL) STLMLC STLMLC [id number] [facility] 2023-12-26 11:00:00 2023-12-26 11:18:39 Outpatient [facility] [id number] [facility] 2023-12-25 00:00:00 2023-12-25 00:00:00 SUB ANNUAL [facility] VISIT STLMLC STLMLC [id number] [facility] 2023-12-25 00:00:00 2023-12-25 00:00:00 OFFICE VISIT NEW PT LEVEL 4 STLMLC STLMLC [id number] [facility] 2023-12-25 00:00:00 2023-12-25 00:00:00 (TEL) STLMLC STLMLC [id number] [facility] 2023-12-24 11:00:00 2023-12-24 12:03:32 Outpatient [facility] [id number] [facility] 2023-12-24 09:00:00 2023-12-24 10:17:07 Office Visit Tara Nieves [facility] [id number] [id number] [facility] 2023-12-05 10:00:00 2023-12-05 10:34:15 Telemedici Lewis Baca [facility] [id number] [id number] [facility] 2023-12-05 00:00:00 2023-12-05 00:00:00 (TEL) STLMLC STLMLC [id number] [facility] 2023-12-03 00:00:00 2023-12-03 00:00:00 (TEL) STLMLC STLMLC [id number] [facility] 2023-11-29 14:30:00 2023-11-29 14:30:00 Outpatient LEWIS MCCARTY [facility] [id number] [facility] 2023-11-07 00:00:00 2023-11-07 00:00:00 OFFICE VISIT ESTAB PT LEVEL 3 STLMLC STLMLC [id number] [facility] 2023-11-01 00:00:00 2023-11-01 00:00:00 (TEL) STLMLC STLMLC [id number] [facility] 2023-09-26 00:00:00 2023-09-26 00:00:00 (TEL) STLMLC STLMLC [id number] [facility] 2023-08-02 15:00:00 2023-08-02 15:28:35 Telemedici Lewis Baca [facility] [id number] [facility] [id number] [facility] 2023-07-30 00:00:00 2023-07-30 00:00:00 (TEL) STLMLC STLMLC [id number] [facility] 2023-07-19 00:00:00 2023-07-19 00:00:00 OFFICE VISIT ESTAB PT LEVEL 4 STLMLC STLMLC [id number] [facility] 2023-05-03 00:00:00 2023-05-03 00:00:00 OFFICE VISIT ESTAB PT LEVEL 3 STLMLC STLMLC [id number] [facility] 2023-04-24 14:00:00 2023-04-24 14:48:11 Telemedici anum Mccarty [facility] [id number] [facility] 2023-02-15 00:00:00 2023-02-15 00:00:00 OFFICE VISIT ESTAB PT LEVEL 3 STLMLC STLMLC [id number] [facility] 2023-01-31 00:00:00 2023-01-31 00:00:00 (TEL) STLMLC STLMLC [id number] [facility] 2023-01-23 00:00:00 2023-01-23 00:00:00 (TEL) STLMLC STLMLC [id number] [facility] 2023-01-16 00:00:00 2023-01-16 00:00:00 (TEL) STLMLC STLMLC [id number] [facility] 2023-01-16 00:00:00 2023-01-16 00:00:00 (TEL) STLMLC STLMLC [id number] [facility] 2022-12-25 00:00:00 2022-12-25 00:00:00 (TEL) STLMLC STLMLC [id number] [facility] 2022-12-16 00:00:00 2022-12-16 00:00:00 (TEL) STLMLC STLMLC [id number] [facility] 2022-12-11 00:00:00 2022-12-11 00:00:00 OFFICE VISIT ESTAB PT LEVEL 4 STLMLC STLMLC [id number] [facility] 2022-11-29 00:00:00 2022-11-29 00:00:00 (PROC) Procedure STLMLC STLMLC [id number] [facility] 2022-11-20 00:00:00 2022-11-20 00:00:00 (TEL) STLMLC STLMLC [id number] [facility] 2022-11-17 00:00:00 2022-11-17 00:00:00 OFFICE VISIT EST PT LEVEL 3 STLMLC STLMLC [id number] [facility] 2022-11-10 00:00:00 2022-11-10 00:00:00 (HOSP F/U) Hospital Follow Up STLMLC STLMLC [id number] [facility] 2022-11-09 00:00:00 2022-11-09 00:00:00 (TEL) STLMLC STLMLC [id number] [facility] 2022-11-06 00:00:00 2022-11-06 00:00:00 (TEL) STLMLC STLMLC [id number] [facility] 2022-10-31 00:00:00 2022-10-31 00:00:00 (TEL) STLMLC STLMLC [id number] [facility] 2022-10-18 00:00:00 2022-10-18 00:00:00 OFFICE VISIT ESTAB PT LEVEL 4 STLMLC STLMLC [id number] [facility] 2022-08-28 00:00:00 2022-08-28 00:00:00 (TEL) STLMLC STLMLC [id number] [facility] 2022-08-15 00:00:00 2022-08-15 00:00:00 (TEL) STLMLC STLMLC [id number] [facility] 2022-05-22 00:00:00 2022-07-20 00:00:00 Outpatient NEW ADMISSION JAVIER WEINSTEIN ENCCLR ENCCLR [id number] ENCCLR 2022-07-05 00:00:00 2022-07-05 00:00:00 OFFICE VISIT ESTAB PT LEVEL 4 STLMLC STLMLC [id number] [facility] 2022-07-05 00:00:00 2022-07-05 00:00:00 SUB ANNUAL [facility] VIS[facility] STLMLC STLMLC [id number] [facility] 2022-07-05 00:00:00 2022-07-05 00:00:00 (TEL) STLC STLMLC [id number] [facility] 2022-06-05 14:00:00 2022-06-05 14:18:23 Office Visit Shashi Lee BBSB [id number] [facility] 2022-06-02 00:00:00 2022-06-02 00:00:00 Telephone Shashi Lee BBSB [id number] [facility] 2022-05-31 00:00:00 2022-05-31 00:00:00 OFFICE VISIT ESTAB PT LEVEL 4 STLMLC STLC [id number] [facility] 2022-05-26 10:50:00 2022-05-26 23:59:00 Outpatient LEWIS MCCARTY [facility] [id number] [facility] 2022-05-23 00:00:00 2022-05-23 00:00:00 (TEL) STLC STLC [id number] [facility] 2022-05-22 00:00:00 2022-05-22 00:00:00 (TEL) STLMLC STLMLC [id number] [facility] 2022-05-03 16:39:00 2022-05-20 11:20:00 Inpatient 3 Javier Weinstein ENCPL BIN [id number] [facility] 2022-05-15 00:00:00 2022-05-15 00:00:00 (TEL) STLC STLC [id number] [facility] 2022-05-02 17:13:00 2022-05-03 15:56:00 Outpatient JAZZ NEGRETE [facility] [id number] 2022-05-01 00:00:00 2022-05-01 00:00:00 Telephone Nanci aragon, Darling aragon, Darling [facility] [id number] [facility] 2022-04-18 00:00:00 2022-04-18 00:00:00 Telephone Lewis Mccarty [facility] [id number] [id number] [facility] 2022-04-11 13:00:00 2022-04-11 14:39:51 Office Visit Lewis Mccarty UTP [facility] [id number] [facility] 2022-04-01 00:00:00 2022-04-01 00:00:00 (TEL) STLMLC STLMLC [id number] [facility] 2022-03-31 00:00:00 2022-03-31 00:00:00 (TEL) STLMLC STLMLC [id number] [facility] 2022-03-22 00:00:00 2022-03-22 00:00:00 OFFICE VISIT EST PT LEVEL 3 STLMLC STLMLC [id number] [facility] 2022-03-06 17:28:00 2022-03-06 23:44:00 Emergency E DIOR [facility] [id number] [facility] 2022-02-23 14:06:00 2022-02-27 20:49:00 Outpatient E YONAS REYES [facility] MED [id number] [facility] 2021-12-10 17:30:00 2021-12-10 22:35:00 Emergency [facility] [id number] [facility] 2021-02-28 13:19:00 2021-02-28 23:59:00 Outpatient NOHEMY KHALIL [facility] [id number] [facility] 2020-01-14 12:47:00 2020-01-14 12:47:00 Outpatient Ige-Odjameel _J_AH VFP VFP [id number] [facility] 2020-01-14 12:47:00 2020-01-14 12:47:00 Outpatient Ige-Odjameel _J_AH VFP VF [id number] [facility] Results Test Description Test Time Test Comments Results Result Co mments Source DE [id number] 09:00:00* Test Item Value Reference Range Interpretation Comme nts COPPER (test code = 5631-7) See_Comment This test was developed and its analytical performance characteristics have been determined by [email or web address]. It has not been cleared or approved [...] Information: ? ?Site ID: [id number] ? ?Name: [facility] ? ?Address: [address] [place] [id number] ? ?Director: RONI KRAMER MD [facility] [id number] 09:00:00* Test Item Value Reference Range Interpretation Comments VITAMIN B12 (test code = 2132-9) 280 pg/mL 200-1100 Please Note: Alt franklyn the reference range for pedglbaB33 is 200-1100 pg/mL, it has been reported that between5 and 10% of patients with values between 200 and 400pg/mL may experience neuropsychiatric and hematologicabnormalities due to occult B12 deficiency; less than 1%of patients with values above 400 pg/mL will have symptoms. RAC (test code = RAC) Performing Organization Information: ? ?Site ID: RGA ? ?Name: [facility] ? ?Address: [address] [place] [address] ? ?Director: GRACIE SULLIVAN MD [id number] 09:00:00* Test Item Value Reference Range Interpretation Comme nts TSH (test code = 3016-3) See_Comment [Automated messa ge] The system which generated this result transmitted reference range: 0.40 - 4.50 mIU/L. The reference range was not used to interpret this result as normal/abnormal. RAC (test code = RAC) Performing Organization Information: ? ?Site ID: RGA ? ?Name: [employer] ? ?Address: [address] [place] [phone] ? ?Director: GRACIE SULLIVAN MD [facility] [id number] 06:38:00* Test Item Value Reference Range Interpretation Comme nts GLUCOSE BEDSIDE TESTING (matt t code = GLUBED) 93 mg/dL 70-110 N BASIC METABOLIC [id number] 06:24:00* Test Item Value Reference Range Interpretation [...] CA) 8.8 MG/DL 8.5-10.1 N GLUCOSE BEDSIDE [id number] 17:01:00* Test Item Value Reference Range Interpretation Comme nts GLUCOSE BEDSIDE TESTING (matt t code = GLUBED) 220 mg/dL 70-110 H GLUCOSE BEDSIDE [id number] 11:37:00* Test Item Value Reference Range Interpretation Comme nts GLUCOSE BEDSIDE TESTING (matt t code = GLUBED) 86 mg/dL 70-110 N GLUCOSE BEDSIDE [id number] 08:10:00* Test Item Value Reference Range Interpretation Comme nts GLUCOSE BEDSIDE TESTING (matt t code = GLUBED) 86 mg/dL 70-110 N BASIC METABOLIC [id number] 05:12:00* Test Item Value Reference Range Interpretation [...] CA) 8.6 MG/DL 8.5-10.1 N BASIC METABOLIC [id number] 05:07:00* Test Item Value Reference Range Interpretation [...] CA) 8.6 MG/DL 8.5-10.1 N GLUCOSE BEDSIDE [id number] 20:21:00* Test Item Value Reference Range Interpretation Comme nts GLUCOSE BEDSIDE TESTING (matt t code = GLUBED) 119 mg/dL 70-110 H - CT HEAD/BRAIN W/O [id number] 18:46:00 [facility] 1955 Sex: M Name: RADHA MARMOLEJO [place] : 1955 Age/S: 65 / M [address] Unit #: [id number] Loc: [place] [address] Phys: Michele Thompson MD Acct: [id number] Dis Date: Status: ADM IN PHONE #:[phone] Exam Date: 12/10/2020 1843 FAX #: Reason: decrease loc since yesterday EXAMS: CPT: [id number] CT HEAD/BRAIN W/O CONT 65438 EXAM: CT BRAIN WITHOUT CONTRAST INDICATION: decrease loss of consciousness since yesterday COMPARISON: MR dated December 09, 2020 TECHNIQUE: Routine axial CT images of the brain were obtained without venous contrast. IV contrast: None DLP: 875.51 mGy-cm FINDINGS: There is an evolving subacute lacunar infarct in the right thalamus. There are chronic lacunar infa rcts in the right black radiata. There are areas of low-attenuation within the central white matter consistent with chronic microvascular ischemic changes. There is prominence of the ventricles andsulci consistent with diffuse cerebral volume loss. No midline shift or mass effect. The basal cisterns are patent. The posterior fossa and 4th ventricle are normal. No calvarial lesions are identifie d. The paranasal sinuses and mastoid air cells are clear. The orbits and globes are unremarkable. IMPRESSION: No acute intracranial hemorrhage is identified. Evolving subacute lacunar infarct in the right thalamus. Moderate chronic microvascular ischemic changes and diffuse cerebral volume loss. Chronic lacunar infarct in the right black radiata. LOCATION: B2 This CT exam was performed accordingto our departmental dose optimization program, which includes automated exposure control, adjustment of the mA and or kV according to patient size and/or use of iterative reconstruction technique. at 1846 Reported and signed by: Sushma Nielsen M.D. PAGE 1 Signed Report (CONTINUED) Name: RADHA MARMOLEJO [place] : 1955ge/S: 65 / M [address] Unit #: [id number] Loc: [place] [address] Phys: Michele Thompson MD Acct: [id number] Dis Date: Status: ADM IN PHONE #: [phone] Exam Date: 12/10/2020 184 FAX #: Reason: decrease loc since yesterday EXAMS: CPT: [id number] CT HEAD/BRAIN W/O CONT 81467 (Continued) CC: Michele Thompson MD; Pj Brooks MD Technologist:Sherlyn White, RT(R)(CT); En CTDI: DLP: Trnscb Date/Time: 12/10/2020 (1845) 16 Orig Print D/T: S: 12/10/2020 (1848) PAGE 2 Signed Report- DUP EXTRACRANIAL [id number] 14:30:00 [facility] : 1955 Sex: M Name: RADHA MARMOLEJO [facility] : 1955 Age/S: 65 / M [address] Unit #: [id number] Loc: [place] [address] Phys: Pj Brooks MD Acct: [id number] Dis Date: Status: ADM IN PHONE #: [phone] Exam Date: 12/10/2020 1400 FAX #: Reason: ISCHEMIC STROKE EXAMS: CPT: [id number] DUP EXTRACRANIAL [place] [address] Dictation location A1 Carotid Doppler Ultrasound HISTORY: Ischemic stroke COMMENTS: The extracranial carotid arteries were evaluated with real time uribe scale, color and spectral Doppler. COMPARISON: MRI one day prior. FINDINGS: The peak systolic velocities and IC/CC ratios are within normal limits bilaterally measuring 0.8 bilaterally. There is mild scattered atherosclerotic plaque demonstrated with no hemodynamically significant stenosis. Antegrade flow seen in both vertebralarteries. IMPRESSION: 1. No hemodynamically significant stenosis demonstrated. 2. Mild scattered plaque in both common carotid arteries and carotid bulbs. at 1430 Reported and signed by: Gege Wilson M.D. CC: Pj Brooks MD Technologist: Nicole Landin Trnscb Date/Time: 12/10/2020 (1430) JeriPXC PAGE 1 Signed Report Name: RADHA MARMOLEJO : 1955 Age/S: 65 / M [address] Unit #: [id number] Loc: [place] [address] Phys: Pj Brooks MD Acct: [id number] Dis Date: Status: ADM IN PHONE #: [phone] Date: 12/10/2020 1400 FAX #: Reason: ISCHEMIC STROKE EXAMS: CPT: [id number] DUP EXTRACRANIAL [place] [address] (Continued) Orig Print D/T: S: 12/10/2020 (1433) Probe: PAGE 2 Signed ReportGLYCOSYLATED HEMOGLOBIN PANEL 2020-12-10 11:30:00* Test Item Value Reference Range Interpretation Comme nts GLYCOSYLATED HEMOGLOBIN (HA1 C) (test code = GLYHGB) 5.8 % A1C 0.0-5.7 H ESTIMATED AVERAGE GLUCOSE (t est code = EAG) 120 MG/DLest COMPREHENSIVE METABOLIC [id number] 11:29:00* Test Item Value Reference Range Interpretation [...] = LDL/HDL) 0.89 Ratio See_Comment L [Automated [employer] ge] The system which generated this result transmitted reference range: 1.48-3.22 Avg. The reference range was not used to interpret this result as normal/abnormal. CBC W/AUTO [id number] 11:01:00* Test Item Value Reference Range Interpretation [...] MDIFF) NO DIFF/SCN CRITERIA Coronavirus 2018 nCoV [id number] 18:27:00* Test Item Value Reference Range Interpretation Comme nts Coronavirus 2019 nCoV Bedside (test code = [id number]) Negative Negative Per account development executive , negative results should be treated aspresumptive [...] consistent with COVID-19. - MRI BRAIN W/O [id number] 16:59:00 [facility] : 1955 Sex: M FAX: Pj Dubon MD [phone] Camps: PM St: ADM Name: RADHA MARMOLEJO [facility] : 1955 Age/S: 65/M [address] Unit #: [id number] Loc: [place] [address] Phys: Pj Brooks MD Acct: [id number] Dis Date: Status: ADM IN PHONE #: [phone] Exam Date: 12/09/2020 1650 FAX #: Reason: r/o CVAEXAMS: CPT: [id number] MRI BRAIN W/O CONTRAST 03034 EXAM: MRI BRAIN WITHOUT CONTRAST INDICATION: CVA COMPARISON: CT head dated December 09, 2020 TECHNIQUE: Multiplanar, multisequence MRI of the brain was obtained without administration of intravenous contrast. IV contrast: None FINDINGS: There olesya small focus of restricted diffusion in the [...] Technologist: Sherlyn White, RT(R)(CT) Transcribed Date/Time/By: 12/09/2020 (5481) :[email or web address] Orig Print D/T: S: 12/09/2020 (0215) PAGE 1 Signed ReportUR PROTEIN [id number] 15:35:00* Test Item Value Reference Range Interpretation Comme nts UR PROTEIN TOTAL (test code = PROTU) 19.3 MG/DL 0.0-12.0 H UR CREATININE [id number] 15:35:00* Test Item Value Reference Range Interpretation Comme nts UR CREATININE RANDOM (test c ode = CREATU) 97.1 MG/DL 30-125 N - US RETRO [id number] 15:10:00 [facility] : 1955 Sex: M Name:RADHA MARMOLEJO [facility] : 1955 Age/S: 65 / M [address] Unit #: [id number] Loc: [place] [address] Phys: Gamal Rudd MD Acct: [id number] Dis Date: Status: ADM IN PHONE#: [phone] Exam Date: 12/09/2020 1500 FAX #: Reason: evalm of kidney size and echogenicity forckd EXAMS: CPT: [id number] RETRO LTD [address] Location of dictation: B2 ULTRASOUND OF THE [...] by: Gege Wilson M.D. CC: Pj Brooks MD;Gamal Rudd MD Technologist: Nicole Landin [facility] Date/Time: 12/09/2020 (1510) JeriPXCPAGE 1 Signed Report Name: RADHA MARMOLEJO : 1955 Age/S: 65 / M [address] Unit #: [id number] Loc: [place] [address] Phys: Gamal Rudd MD Acct: [id number] Dis Date: Status: ADM IN PHONE #: [phone] Exam Date: 12/09/2020 1500 FAX #: Reason: evalm of kidney size and echogenicity for ckd EXAMS: CPT: [id number] [facility] L[facility] [address] (Continued) Orig Print D/T: S: 12/09/2020 (151) Probe: PAGE 2 Signed ReportUA RFLX MICR CULT IF [id number] 08:20:00* Test Item Value Reference Range Interpretation [...] Indication for culture: Dysuria/Frequency- XR SHOULDER 2+V [id number] 08:19:00 [facility] : 1955 Sex: M Name: RADHA MARMOLEJO [facility] : 1955 Age/S: 65 / M [address] Unit #: [id number] Loc: [place] [address] Phys: Mode Duran MD Acct: [id number] Dis Date: Status: REG ER PHONE #: [phone] Exam Date: 12/09/2020 0815 FAX #: Reason: trauma EXAMS: CPT: [id number] XR SHOULDER 2+VLT 44687 Fluoro Time: DAP (Gy m2): Air Kerma [...] PAGE 1 Signed Report Name: RADHA MARMOLEJO [facility] [place] : 1955 Age/S: 65 / M [address] Unit #: [id number] Loc: [place] [address] Phys: Mode Duran MD Acct: [id number] Date: Status: REG ER PHONE #: [phone] Exam Date: 12/09/2020 0815 FAX #: Reason: trauma EXAMS: CPT: [id number] XR SHOULDER 2+[place] [address] Fluoro Time: DAP (Gy m2): Air Kerma (mGy): (Continued)Technologist: Dominguez Molina, RT(R)(CT) Trnscb Date/Time: 12/09/2020 (08) t.ALYSARCourtneyPXC Orig Print D/ T: S: 12/09/2020 (0822) PAGE 2 Signed ReportBASIC METABOLIC [id number] 08:11:00* Test Item Value Reference Range Interpretation [...] 8.6 MG/DL 8.5-10.1 N Completed by Nursing: [id number] 08:11:00* Test Item Value Reference Range Interpretation [...] may varyby method. Completed by Nursing: NOPROTHROMBIN [id number] 07:54:00* Test Item Value Reference Range Interpretation Comme nts PT PATIENT (test code = PTP) 11.7 SECONDS 9.3-12.9 N INTERNATIONAL NORMAL RATIO (test code = INR) 1.04 INR Unit 0.8-1.2 N THROMBOPLASTIN TIME [id number] 07:54:00* Test Item Value Reference Range Interpretation Comme nts THROMBOPLASTIN TIME PARTIAL (test code = PTT) 33.0 SECONDS 26-35 N - CT HEAD/BRAIN W/O [id number] 07:48:00 [facility] : 1955 Sex: M Name: RADHA MARMOLEJO [facility] : 1955 Age/S: 65 / M [address] Unit #: [id number] Loc: [place] [address] Phys: Mode Duran MD Acct: [id number] Dis Date: Status: PRE ER PHONE #:[phone] Exam Date: 12/09/2020736 FAX #: Reason: Code Stroke EXAMS: CPT: [id number] CT HEAD/BRAIN W/O CONT 81011 EXAM: - CT HEAD/BRAIN W/O CONT INDICATION: Code Stroke LOCATION: T18 COMPARISON:None available time of interpretation. TECHNIQUE: Axial tomograms [...] Orbits:Visualized orbits appear unremarkable. IMPRESSION: No acute intracranialprocess seen. Findings discussed with at 7:47 AM on 12/09/2020. FORINTERNAL CODING PURPOSES ONLY RESULT CODE: CVR at 0748 Reported and signed by: Isaias De Oliveira M.D. PAGE 1 Signed Report (ADAM NUED) Name: RADHA MARMOLEJO [facility] : 1955 Age/S: 65 / M [address] Unit #: [id number] Loc: [place] [address] Phys: Mode Duran MD Acct: [id number] Dis Date: Status: PRE ER PHONE #: [phone] Exam Date: 12/09/2020 0737 FAX #: Reason: Code Stroke EXAMS: CPT: [id number] CT HEAD/BRAIN W/O CONT 73615 (Continued) CC: Mode Duran MD Technologist:Lewis See,RT(R) CTDI: DLP: Trnscb Date/Time: 12/09/2020 (0748) OdilonR.[email or web address] Orig Print D/T: S: 12/09/2020 (0755) PAGE 2 Signed ReportCAL[facility]WELL [facility] W/O [id number] 07:47:00* Test Item Value Reference Range Interpretation [...] Notes Date/Time Note Provider Source 2023-08-02 15:00:00 Addended by: LEWIS MCCARTY on: 08/02/2023 04:02 PM Modules accepted: Orders [facility] 2020-12-13 08:07:00 [facility] ([facility]) Nephrology Progress Note REPORT#:[id number] REPORT STATUS: Signed DATE:12/13/20 TIME:806 PATIENT: RADHA MARMOLEJO UNIT #: [id number] ROOM[address]BED: [address] : [birth year] AGE: 65 SEX: M ATTEND: Pj Brooks MD ADM AUTHOR: Gamal Rudd MD * ALL edits or amendments must be made on the electronic/computer document * Subjective Chief Complaint: Adm for frequent falls and weakness. seen today. has no c/o. Objective General VS/I O: Vital Signs: Date Time Temp Pulse Resp B/P [...] Weight (lb): Weight (oz): Weight (kg): 65.909 Medications Active Meds + DC'd Last 24 Hrs Hydralazine HCl 25 MG BID PO Amlodipine Besylate 5 MG BID PO Sodium Chloride 1,000 ML .[id number] IV Atorvastatin Calcium 80 MG 1700 PO [...] 20 MG Q6H PRN PRN IV Nutrition assessment: The data set between the solid lines has been imported from the dietitian's assessment. Any exceptions have been noted under Provider comments. _ BMI Calculated: 20.3 Nutrition related diagnosis: Nutrition diagnosis details: Nutrition problem: Nutrition etiology: Nutrition signs and symptoms: Nutrition prescription: Dietitian name: Assessment completed: _ Provider comments on imported dietitian assessment: Physical Exam General appearance: alert, awake, oriented Head/eyes: atraumatic, normocephalic ENT: moist mucous membranes Neck: full range of motion Cardiovascular: normal heart sounds, regular rate and rhythm Respiratory: aerating well, clear to auscultation Abdomen: non-tender, soft Extremities: normal inspection Neuro/MACHINE PIE MAKER: alert, oriented X 3, CN II-XII intact, normal speech Diagnosis, Assessment Plan Problem List/A P: 1. Generalized weakness 2. Frequent falls Free Text A P: #TOMMIE on CKD-creatinine is stable at 1.8 today. We will continue to monitor for now. - renal US that revealed echogenic kidneys bilaterally with cysts noted in both kidneys. -Minimal proteinuria of 0.1 g/g noted. this is in keeping with hypertensive nephrosclerosis. #Deconditioning-deemed due to possible cva. PT/OT to evaluate. #Hypertension-improved BP reads, we will continue amlodipine 5 mg twice daily/ Coreg/hydralazine. #Falls-Deemed due to possible CVA. MRI brain confirmed small acute thalamic stroke. he also has chronic mscrovascular ischemic changes. we will continue statin and aspirin therapy. fall precautions on board. PT/OT managing. we will review in nephrology clinic after hospital discharge. at 0334 RPT #: [id number] END OF REPORT [facility] 2020-12-12 11:04:00 [facility] ([facility]) Nephrology Progress Note REPORT#:[id number] REPORT STATUS: Signed DATE:12/12/20 TIME:1104 PATIENT: RADHA MARMOLEJO UNIT #: [id number] ROOM/BED: [facility]16-1 : 53 AGE: 65 SEX: M ATTEND: Pj Brooks MD ADM AUTHOR: Ngoc Norman MD * ALL edits or amendments must be made on the electronic/computer document * Subjective Chief Complaint: -Adm for frequent falls and weakness. seen today. Objective General VS/I O: Vital Signs: Date Time Temp Pulse Resp B/P [...] Weight (lb): Weight (oz): Weight (kg): 65.909 Medications Active Meds + DC'd Last 24 Hrs Amlodipine Besylate 5 MG BID PO Sodium [...] 20 MG Q6H PRN PRN IV Physical Exam General appearance: chronically ill appearing, alert Head/eyes: atraumatic, normocephalic ENT: moist mucous membranes Neck: full range of motion Cardiovascular: normal heart sounds, regular rate and rhythm Respiratory: aerating well, clear to auscultation Abdomen: non-tender, soft Extremities: normal inspection Neuro/MACHINE PIE MAKER: alert, oriented X 3, CN II-XII intact, normal speech Results Findings/Data: Laboratory Tests 12/12 12/11 12/11 0545 1655 1130 [...] (8.5 - 10.1 MG/DL) 8.8 Diagnosis, Assessment Plan Free Text A P: #TOMMIE on CKD-creatinine marginally worsened to 1.8 We will continue to monitor for now -volume status controlled - renal US that revealed echogenic kidneys bilaterally with cysts noted in both kidneys. -Minimal proteinuria of 0.1 g/g noted #Deconditioning-deemed due to possible cva. PT/OT to evaluate. #Hypertension-slowly improving, continue amlodipine 5 mg twice daily/Coreg Add low-dose hydralazine twice daily #Falls-Deemed due to possible CVA. MRI brain confirmed small acute thalamic stroke. he also has chronic mscrovascular ischemic changes. we will continue statin and aspirin therapy. fall precautions on board. at 1106 RPT #: [id number] END OF REPORT [facility] 2020-12-12 11:04:00 [facility] ([facility]) Nephrology Progress Note REPORT#:[id number] REPORT STATUS: Signed DATE:12/12/20 TIME:1104 PATIENT: RADHA MARMOLEJO UNIT #: [id number] ROOM/BED: S216-1 : 53 AGE: 65 SEX: M ATTEND: Pj Brooks MD ADM AUTHOR: Ngoc Norman MD * ALL edits or amendments must be made on the electronic/computer document * See Addendum Subjective Chief Complaint: -Adm for frequent falls and weakness. seen today. Objective General VS/I O: Vital Signs: Date Time Temp Pulse Resp B/P [...] Weight (lb): Weight (oz): Weight (kg): 65.909 Medications Active Meds + DC'd Last 24 Hrs Amlodipine Besylate 5 MG BID PO Sodium [...] 20 MG Q6H PRN PRN IV Physical Exam General appearance: chronically ill appearing, alert Head/eyes: atraumatic, normocephalic ENT: moist mucous membranes Neck: full range of motion Cardiovascular: normal heart sounds, regular rate and rhythm Respiratory: aerating well, clear to auscultation Abdomen: non-tender, soft Extremities: normal inspection Neuro/MACHINE PIE MAKER: alert, oriented X 3, CN II-XII intact, normal speech Results Findings/Data: Laboratory Tests 12/12 12/11 12/11 0545 1655 1130 [...] (8.5 - 10.1 MG/DL) 8.8 Diagnosis, Assessment Plan Free Text A P: #TOMMIE on CKD-creatinine marginally worsened to 1.8 We will continue to monitor for now -volume status controlled - renal US that revealed echogenic kidneys bilaterally with cysts noted in both kidneys. -Minimal proteinuria of 0.1 g/g noted #Deconditioning-deemed due to possible cva. PT/OT to evaluate. #Hypertension-slowly improving, continue amlodipine 5 mg twice daily/Coreg Add low-dose hydralazine twice daily #Falls-Deemed due to possible CVA. MRI brain confirmed small acute thalamic stroke. he also has chronic mscrovascular ischemic changes. we will continue statin and aspirin therapy. fall precautions on board. at 1106 Addendum 1: 12/12/20 1121 by Ngoc Norman MD increase IVF to 75cc/hr at 1121 RPT #: [id number] END OF REPORT [facility] 2020-12-12 10:06:00 [facility] ([facility]) Hospitalist Progress Note REPORT#:[id number] REPORT STATUS: Signed DATE:12/12/20 TIME:1006 PATIENT: RADHA MARMOLEJO UNIT #: [id number] ROOM/BED: S216-1 : 53 AGE: 65 SEX: M ATTEND: Pj Brooks MD ADM AUTHOR: Pj Brooks MD * ALL edits or amendments must be made on the electronic/computer document * Subjective Chief Complaint: No acute events Denies any chest pain or shortness of breath Objective General VS/I O: Vital Signs: Date Time Temp Pulse Resp B/P [...] Weight (lb): Weight (oz): Weight (kg): 65.909 Medications: Active Meds + DC'd Last 24 Hrs Hydralazine HCl 25 MG BID PO Amlodipine Besylate 5 MG BID PO Sodium Chloride 1,000 ML .[id number] IV Atorvastatin Calcium 80 MG 1700 PO [...] 20 MG Q6H PRN PRN IV Physical Exam General appearance: alert, awake Head/Eyes: atraumatic, normocephalic ENT: dry mucosal membrane Neck: supple/no meningismus Cardiovascular: normal heart sounds, regular rate rhythm Respiratory: aerating well, clear to auscultation Abdomen: soft, no distention Genitourinary: no bladder distention Extremities: moves all, no edema Musculoskeletal: normal inspection Neuro/MACHINE PIE MAKER: alert, oriented X 3 Skin: dry, no rash Lymphatics: no lymphadenopathy Psychiatry: anxious Results Findings/Data: Laboratory Tests 12/12/20 0545: [Embedded Image Not Available] 12/11/20 0451: [Embedded Image Not Available] Laboratory Tests 12/12 12/11 0545 1655 Chemistry Sodium [...] (8.5 - 10.1 MG/DL) 8.8 Diagnosis, Assessment Plan Problem List/A P: 1. Frequent falls 2. Generalized weakness Free Text DxA P Notes Free text DxA P notes: Subacute lacunar infarct in right thalamus related to small vessel disease Gait ataxia Acute kidney injury Polysubstance abuse Smoker Accelerated hypertension History of COPD History of chronic infarcts Frequent falls History of cocaine abuse Plan Monitor under grinder lap neuro vital signs Get a PT OT evaluation We will get an MRI to rule out any CVA Neurology consult Monitor renal parameters Start on IV fluids Continue home medications and titrate as needed Advise smoking cessation Advised stop using cocaine GI/DVT prophylaxis Advanced directive full code for now 12/10/2020 Subacute lacunar infarct in right thalamus related to small vessel disease Gait ataxia Acute kidney injury Polysubstance abuse Smoker Accelerated hypertension History of COPD History of chronic infarct Plan Aspirin statin Appreciate help from neurology Stroke work-up PT OT ST evaluation Echocardiogram and carotid Dopplers Advised smoking cessation Advised substance abuse cessation Antihypertensives titrated Advised about medication compliance 12/11/2020 Participating in physical therapy Monitor closely under telemetry Appreciate help from neurology Renal parameters monitored Appreciate help from nephrology Carotid Doppler showing no significant carotid artery stenosis Awaiting echocardiogram Continue aspirin statin Case management consult for home PT and home health Discussed with patient regarding placement to rehab but patient want to go home with home health 12/12/2020 Monitor telemetry Antihypertensives titrated Appreciate help from neurology PT OT evaluation patient Case management consult for home health Possible DC in a.m. with home health and home PT at 1152 RPT #: [id number] END OF REPORT [facility] 2020-12-11 15:19:00 [id number] [facility] [id number] [place] [address] PATIENT NAME: RADHA MARMOLEJO ADMIT DATE: 12/09/20 ACCOUNT NO: [id number] ROOM NO: [place] [address] AGE: 65 REPORT TYPE: eECHOCARDIOGRAM REPORT SEX: M ADMITTING PHYSICIAN: Pj Brooks MD ATTENDING PHYSICIAN: Pj Brooks MD *[facility]* [address] [place] [address] Transthoracic Echocardiogram Patient: Radha Marmolejo Study Date: 12/10/2020 BP: 155 / 86 Location: [facility] URN: [id number] : 1955 Age: 65 Height: 70.9 in / 180 cm Gender: M Weight: 144.7 lb / 65.8 kg BMI/BSA: 20.3 kg/m 2 / 1.84 m 2 *Ordering Physician: * Pj Brooks *Interpreting Physician: * Papo Toney MD *[employer]st[employer] Instructor: * Monique Lott [facility] -------- Indications: CVA. -------- Study data: Transthoracic echocardiogram. Procedure: Transthoracic echocardiography was performed. Images were obtained using a [employer] cardiac ultrasound machine. Image quality was adequate. Complete 2D, complete spectral Doppler, and color Doppler. Location: Bedside. Patient status: Inpatient. Patient room number: MSO 7. Study status: Routine. -------- Findings Left ventricle: The cavity size is normal. Wall thickness is mildly increased. Systolic function is mildly reduced. The estimated ejection fraction is 45-49%. Doppler parameters are consistent with abnormal left ventricular relaxation (grade 1 diastolic dysfunction). Right ventricle: The cavity size is normal. Systolic function is normal. PATIENT NAME: RADHA MARMOLEJO Left atrium: The atrium is normal in size. Right atrium: The atrium is normal in size. Aorta: The aortic root is not dilated. Aortic valve: The valve is trileaflet. There is no evidence of stenosis. Mitral valve: The valve is structurally normal. There is mild regurgitation. Tricuspid valve: The valve is structurally normal. There is mild regurgitation. Pulmonic valve: Not well visualized. Pericardium: There is no pericardial effusion. Systemic veins: Inferior vena cava: The vessel is normal in size. -------- Measurements Left ventricle Value Ref BRANDON, LAX 3.7 [...] Root diam, ED MM 2.98 cm --------- -------- Conclusions Summary: Left ventricle: The cavity size is normal. Wall thickness is mildly increased. Systolic function is mildly reduced. The estimated ejection fraction is 45-49%. Doppler parameters are consistent with abnormal left ventricular relaxation (grade 1 diastolic dysfunction). Prepared and electronically signed by Papo Toney MD 12/11/2020 15:19 at 1519 PATIENT NAME: RADHA MARMOLEJO [facility] 2020-12-11 11:24:00 [facility] ([facility]) Nephrology Progress Note REPORT#:[id number] REPORT STATUS: Signed DATE:12/11/20 TIME:1124 PATIENT: RADHA MARMOLEJO UNIT #: [id number] ROOM/BED: [address] : [address] AGE: 65 SEX: M ATTEND: Pj Brooks MD ADM AUTHOR: Ngoc Norman MD * ALL edits or amendments must be made on the electronic/computer document * Subjective Chief Complaint: -Adm for frequent falls and weakness. seen today. no new issues feels better. Objective General VS/I O: Vital Signs: Date Time Temp Pulse Resp B/P [...] Weight (lb): Weight (oz): Weight (kg): 65.909 Medications Active Meds + DC'd Last 24 Hrs Atorvastatin Calcium 80 MG 1700 PO Amlodipine [...] 20 MG Q6H PRN PRN IV Nutrition assessment: The data set between the solid lines has been imported from the dietitian's assessment. Any exceptions have been noted under Provider comments. _ BMI Calculated: 20.3 Nutrition related diagnosis: Nutrition diagnosis details: Nutrition problem: Nutrition etiology: Nutrition signs and symptoms: Nutrition prescription: Dietitian name: Assessment completed: _ Provider comments on imported dietitian assessment: Physical Exam General appearance: chronically ill appearing, alert, awake Head/eyes: atraumatic, normocephalic ENT: moist mucous membranes Neck: full range of motion Cardiovascular: normal heart sounds, regular rate and rhythm Respiratory: aerating well, clear to auscultation Abdomen: non-tender, soft Extremities: normal inspection Neuro/MACHINE PIE MAKER: alert, oriented X 3, CN II-XII intact, normal speech Results Findings/Data: Laboratory Tests 12/11 12/11 12/10 0802 0451 2013 [...] (8.5 - 10.1 MG/DL) 8.6 Diagnosis, Assessment Plan Free Text A P: #TOMMIE vs CKD-cr remsin stable at 1.7 -volume status controlled - renal US that revealed echogenic kidneys bilaterally with cysts noted in both kidneys. -follow pending proteinuria workup #Deconditioning-deemed due to possible cva. PT/OT to evaluate. #Hypertension-uncontrolled, increase norvasc to 5 bid , c/w coreg #Falls-Deemed due to possible CVA. MRI brain confirmed small acute thalamic stroke. he also has chronic mscrovascular ischemic changes. we will continue statin and aspirin therapy. fall precautions on board. at 1107 RPT #: [id number] END OF REPORT [facility] 2020-12-11 10:09:00 [facility] ([facility]) Hospitalist Progress Note REPORT#:[id number] REPORT STATUS: Signed DATE:12/11/20 TIME:1009 PATIENT: RADHA MARMOLEJO UNIT #: [id number] [facility] AGE: 65 SEX: M ATTEND: Pj Brooks MD ADM AUTHOR: Pj Brooks MD * ALL edits or amendments must be made on the electronic/computer document * Subjective Chief Complaint: No acute events Participating in physical therapy Objective General VS/I O: Vital Signs: Date Time Temp Pulse Resp B/P [...] Weight (lb): Weight (oz): Weight (kg): 65.909 Medications: Active Meds + DC'd Last 24 Hrs Atorvastatin Calcium 80 MG 1700 PO Amlodipine [...] 20 MG Q6H PRN PRN IV Physical Exam General appearance: alert, awake Head/Eyes: atraumatic, normocephalic ENT: dry mucosal membrane Neck: supple/no meningismus Cardiovascular: normal heart sounds, regular rate rhythm Respiratory: aerating well, clear to auscultation Abdomen: soft, no distention Genitourinary: no bladder distention Extremities: moves all, no edema Musculoskeletal: normal inspection Neuro/MACHINE PIE MAKER: alert, oriented X 3 Skin: dry, no rash Lymphatics: no lymphadenopathy Psychiatry: anxious Results Findings/Data: Laboratory Tests 12/11 12/11 12/10 12/10 12/10 0802 0451 2013 1050 1050 Chemistry Sodium (134 [...] % (Auto) (20.5 - 51.1 %) 28.4 Amelia % (Auto) (1.7 - 9.3 %) 10.4 H Eos % (Auto) (0.0 - 6.0 %) 3.8 Baso % (Auto) (0.0 - 2.0 %) 1.3 Neut # (Auto) (1.8 - 7.6 K/mm3) 3.8 Lymph # (Auto) (0.6 - 3.0 K/mm3) 1.9 Amelia # (Auto) (0.2 - 1.5 K/mm3) 0.7 Eos # (Auto) (0.0 - 0.4 K/mm3) 0.3 Baso # (Auto) (0.0 - 0.2 K/mm3) 0.1 Abs Immat Gran (auto) (0.00 - 0.03 x10 3/uL) 0.01 Add Manual Diff (CRITERIA DIFF/SCN) NO Immature Gran % (0.0 - 5.0 %) 0.1 Nucleated RBC % (0.0 - 1.0 /100WBC%) 0.0 Radiology data: Recent Impressions: ULTRASOUND - DUP EXTRACRANIAL LAINEY 12/10 1343 Report Impression - Status: SIGNED Entered: 12/10/2020 8543 IMPRESSION: 1. No hemodynamically significant stenosis demonstrated. 2. Mild scattered plaque in both common carotid arteries and carotid bulbs. Impression By: Vivien Wilson M.D. CAT SCAN - CT HEAD/BRAIN W/O CONT 12/10 1835 Report Impression - Status: SIGNED Entered: 12/10/2020 4105 IMPRESSION: No acute intracranial hemorrhage is identified. [...] size and/or use of iterative reconstruction technique. Impression By: Michelle Nielsen M.D. Diagnosis, Assessment Plan Problem List/A P: 1. Frequent falls 2. Generalized weakness Free Text DxA P Notes Free text DxA P notes: Frequent falls Accelerated hypertension history of CVA Smoker History of cocaine abuse Acute kidney injury Plan Monitor under grinder lap neuro vital signs Get a PT OT evaluation We will get an MRI to rule out any CVA Neurology consult Monitor renal parameters Start on IV fluids Continue home medications and titrate as needed Advise smoking cessation Advised stop using cocaine GI/DVT prophylaxis Advanced directive full code for now 12/10/2020 Subacute lacunar infarct in right thalamus related to small vessel disease Gait ataxia Acute kidney injury Polysubstance abuse Smoker Accelerated hypertension History of COPD History of chronic infarct Plan Aspirin statin Appreciate help from neurology Stroke work-up PT OT ST evaluation Echocardiogram and carotid Dopplers Advised smoking cessation Advised substance abuse cessation Antihypertensives titrated Advised about medication compliance 12/11/2020 Participating in physical therapy Monitor closely under telemetry Appreciate help from neurology Renal parameters monitored Appreciate help from nephrology Carotid Doppler showing no significant carotid artery stenosis Awaiting echocardiogram Continue aspirin statin Case management consult for home PT and home health Discussed with patient regarding placement to rehab but patient want to go home with home health at 1016 RPT #: [id number] END OF REPORT [facility] 2020-12-10 08:47:00 [facility] ([facility]) Hospitalist Progress Note REPORT#:[id number] REPORT STATUS: Signed DATE:12/10/20 TIME:0847 PATIENT: RADHA MARMOLEJO UNIT #: [id number] ROOM/BED: [place] [address] : 53 AGE: 65 SEX: M ATTEND: Pj Brooks MD ADM AUTHOR: Pj Brooks MD * ALL edits or amendments must be made on the electronic/computer document * Subjective Chief Complaint: No acute events Objective General VS/I O: Vital Signs: Date Time Temp Pulse Resp B/P B/P Pulse O2 O2 Flow FiO2 Mean Ox Delivery Rate 12/10 1200 97.5 66 20 168/82 110 98 Room air 12/10 0800 97.8 73 19 105/86 92 96 Room air 12/10 0400 97.1 70 16 155/86 109 97 12/10 0301 74 169/84 119 97 12/09 2323 98.5 12/09 2323 74 166/85 117 94 12/09 2004 98.5 78 18 166/97 120 97 12/09 [...] Weight (lb): Weight (oz): Weight (kg): 65.909 Medications: Active Meds + DC'd Last 24 Hrs Atorvastatin Calcium 80 MG 1700 PO Amlodipine [...] 20 MG Q6H PRN PRN IV Physical Exam General appearance: alert, awake Head/Eyes: atraumatic, normocephalic ENT: dry mucosal membrane Neck: supple/no meningismus Cardiovascular: normal heart sounds, regular rate rhythm Respiratory: aerating well, clear to auscultation Abdomen: soft, no distention Genitourinary: no bladder distention Extremities: moves all, no edema Musculoskeletal: normal inspection Neuro/MACHINE PIE MAKER: alert, oriented X 3 Skin: dry, no rash Lymphatics: no lymphadenopathy Psychiatry: anxious Results Findings/Data: Laboratory Tests 12/10 12/10 1050 1050 Chemistry Sodium [...] % (Auto) (20.5 - 51.1 %) 28.4 Amelia % (Auto) (1.7 - 9.3 %) 10.4 H Eos % (Auto) (0.0 - 6.0 %) 3.8 Baso % (Auto) (0.0 - 2.0 %) 1.3 Neut # (Auto) (1.8 - 7.6 K/mm3) 3.8 Lymph # (Auto) (0.6 - 3.0 K/mm3) 1.9 Amelia # (Auto) (0.2 - 1.5 K/mm3) 0.7 [...] CoV-2 RNA Rapid NICOLE (Negative) Negative Radiology data: Recent Impressions: ULTRASOUND - US RETRO LTD 12/09 1444 Report Impression - Status: SIGNED Entered: 12/09/2020 3019 IMPRESSION: 1. Hyperechoic kidneys. 2. Simple cyst right kidney, multiple cysts versus severe hydronephrosis left kidney. Impression By: Vivien Wilson M.D. [facility] - MRI BRAIN W/O CONTRAST 12/09 1605 Report Impression - Status: SIGNED Entered: 12/09/2020 1702 IMPRESSION: Small early subacute lacunar infarct in the right thalamus. Moderate chronic microvascular ischemic changes and diffuse cerebral volume loss. LOCATION: A 1 Impression By: Michelle Nielsen M.D. Diagnosis, Assessment Plan Problem List/A P: 1. Frequent falls 2. Generalized weakness Free Text DxA P Notes Free text DxA P notes: Frequent falls Accelerated hypertension history of CVA Smoker History of cocaine abuse Acute kidney injury Plan Monitor under grinder lap neuro vital signs Get a PT OT evaluation We will get an MRI to rule out any CVA Neurology consult Monitor renal parameters Start on IV fluids Continue home medications and titrate as needed Advise smoking cessation Advised stop using cocaine GI/DVT prophylaxis Advanced directive full code for now 12/10/2020 Subacute lacunar infarct in right thalamus related to small vessel disease Gait ataxia Acute kidney injury Polysubstance abuse Smoker Accelerated hypertension History of COPD History of chronic infarct Plan Aspirin statin Appreciate help from neurology Stroke work-up PT OT ST evaluation Echocardiogram and carotid Dopplers Advised smoking cessation Advised substance abuse cessation Antihypertensives titrated Advised about medication compliance at 1303 RPT #: [id number] END OF REPORT [facility] 2020-12-10 07:25:00 [facility] ([facility]) Nephrology Progress Note REPORT#:[id number] REPORT STATUS: Signed DATE:12/10/20 TIME:724 PATIENT: RADHA MARMOLEJO UNIT #: [id number] [address] : [address] AGE: 65 SEX: M ATTEND: Pj Brooks MD ADM AUTHOR: Gamal Rudd MD * ALL edits or amendments must be made on the electronic/computer document * Subjective Chief Complaint: frequent falls and weakness. seen today. feels better. Objective General VS/I O: Vital Signs: Date Time Temp Pulse Resp B/P B/P Pulse O2 O2 Flow FiO2 Mean Ox Delivery Rate 12/10 0400 97.1 70 16 155/86 109 97 12/10 0301 74 169/84 119 97 02/11 2323 98.5 02/11 2323 74 166/85 117 94 12/09 2004 98.5 78 18 166/97 120 97 12/09 [...] Weight (lb): Weight (oz): Weight (kg): 65.909 Medications Active Meds + DC'd Last 24 Hrs Amlodipine Besylate 5 MG DAILY PO Carvedilol 12.5 MG BID@0900,2100 PO Acetaminophen 650 MG Q6H PRN PRN PO Acetaminophen 650 MG Q6H PRN PRN RECTAL Bisacodyl 10 MG DAILY PRN PRN RECTAL Docusate Sodium 100 MG BID PRN PRN PO Hydralazine HCl 20 MG Q6H PRN PRN IV Sodium Chloride 1,000 ML X1ED STA IV (DC) Nutrition assessment: The data set between the solid lines has been imported from the dietitian's assessment. Any exceptions have been noted under Provider comments. _ BMI Calculated: 20.3 Nutrition related diagnosis: Nutrition diagnosis details: Nutrition problem: Nutrition etiology: Nutrition signs and symptoms: Nutrition prescription: Dietitian name: Assessment completed: _ Provider comments on imported dietitian assessment: Physical Exam General appearance: alert, awake, oriented Head/eyes: atraumatic, normocephalic ENT: moist mucous membranes Neck: full range of motion Cardiovascular: normal heart sounds, regular rate and rhythm Respiratory: aerating well, clear to auscultation Abdomen: non-tender, soft Extremities: normal inspection Neuro/MACHINE PIE MAKER: alert, oriented X 3, CN II-XII intact, normal speech Diagnosis, Assessment Plan Problem List/A P: 1. Generalized weakness 2. Frequent falls Free Text A P: TOMMIE vs CKD-His creatinine is elevated at 1.7. he does have a hx of long standing hypertension. we did obtain a renal US that revealed echogenic kidneys bilaterally with cysts noted in both kidneys. this is more in keeping with medical renal disease. we also obtained urine protein/creatinine and are waiting for results. we will dose meds for eGFR and avoid nephrotoxins. Deconditioning-deemed due to possible cva. PT/OT to evaluate. Hypertension-Poorly controlled. we will adjust antihypertensive meds to achieve goal BP of <130/80mmhg. . Falls-Deemed due to possible CVA. MRI brain confirmed small acute thalamic stroke. he also has chronic mscrovascular ischemic changes. we will continue statin and aspirin therapy. fall precautions on board. at 2226 RPT #: [id number] END OF REPORT [facility] 2020-12-09 18:10:00 [facility] ([facility]) Neurology Consultation Note REPORT#:[id number] REPORT STATUS: Signed DATE:12/09/20 TIME:1809 PATIENT: RADHA MARMOLEJO UNIT #: [id number] ROOM/BED: [place] : 53 AGE: 65 SEX: M ATTEND: Pj Brooks MD ADM AUTHOR: Michele Thompson MD * ALL edits or amendments must be made on the electronic/computer document * History of Present Illness HPI Reason for consult: Falls, history of CVA HPI: Mr. Marmolejo is a 65 years old right-handed AA male with past medical history of hypertension, COPD and previous CVA affecting his right side, tobacco, alcohol and drug abuse who presents with dizziness and frequent falls. Patient complains of frequent fall for past 2 weeks/legs just gives way. Denies any weakness, neck , back or knee pain. Smokes 1 pack a day and drinks 2-3 beers a week down from 6pack a day in past week and uses cocaine. Patient states has been smacking for past 2-3 months and loss of taste for several years. History - Adult longitudinal Additional medical history: Hypertension history of CVA Additional surgical history: No significant past surgical history Family history: Reports: Hypertension. Alcohol use: Alcohol use Drug use: Cocaine Smoking status: Smoking status for patients 13 years old or older: Current every day smoker Allergies: Coded Allergies: No Known Allergies (12/09/20) Review of Systems Neuro: Reports: gait problem. All systems rev neg: except as marked Objective General VS: Last Documented: Result Date Time Pulse Ox 98 12/09 1525 B/P 179/95 12/09 1525 B/P Mean 123 12/09 1525 Pulse 74 12/09 1525 Resp 20 12/09 1525 Temp 36.7 12/09 1230 O2 Delivery Room air 12/09 0720 PATIENT WEIGHT: Weight (lb): Weight (oz): Weight (kg): 65.909 Medications Current Home Medications ASPIRIN 81 MG PO BEDTIME ATORVASTATIN (LIPITOR) 40 MG PO DAILY LISINOPRIL (ZESTRIL) 5 MG PO DAILY buPROPion (WELLBUTRIN) 150 MG PO BID TAMSULOSIN ER (FLOMAX) 0.4 MG PO DAILY BUDESONIDE/FORMOTEROL FUMARATE (SYMBICORT 80/4.5 MCG/ACT) 2 PUFF INH BID Active Meds + DC'd Last 24 Hrs Acetaminophen 650 MG Q6H PRN PRN PO Acetaminophen 650 MG Q6H PRN PRN RECTAL Bisacodyl 10 MG DAILY PRN PRN RECTAL Docusate Sodium 100 MG BID PRN PRN PO Hydralazine HCl 20 MG Q6H PRN PRN IV Sodium Chloride 1,000 ML X1ED STA IV (DC) Physical Exam General appearance: alert, awake, oriented Head/Eyes: atraumatic, clear cornea Neck: no masses or swelling Respiratory: aerating well, no distress Extremities: moves all, no edema Musculoskeletal: full range of motion Skin: dry, intact Speech Speech: normal Mental Status Orientation: Yes: to place, to person, to situation. Cranial Nerves Cranial nerves: Normal: II, III, IV, V, , VII, VIII, IX, X, XI, XII. Sensory Exam Sensory: Normal: light touch, pin prick. Motor Testing Motor testing 1: Normal: bulk, tone, fine movements, strength. Cerebellar Test Cerebellar test: Normal R finger/nose/finger, Normal L finger/nose/finger Nystagmus: absent Reflexes Plantar reflexes: Up: Right, Left. Reflexes comments: trace reflexes in BLE and absent ankle jerks Gait Gait comments: deferred Results Findings/Data: Laboratory Tests 12/09 07 Chemistry Sodium (134 - 147 mmol/L) 141 [...] 0.045 NG/ML) < 0.015 Laboratory Tests 12/09 07 Coagulation INR (0.8 - 1.2 INR Unit) 1.04 PTT ([place]) (26 - 35 SECONDS) 33.0 PT Patient/Control Mix (9.3 - 12.9 SECONDS) 11.7 Laboratory Tests 12/09 07 Hematology WBC (3.5 - 11.0 K/mm3) 6.9 [...] - 7.0 pH UNITS) 6.0 Ur Specific [place]son (1.005 - 1.030 SG) 1.010 Urine Protein [...] (0.0 - 12.0 MG/DL) 19.3 H Radiology Data: Recent Impressions: CAT SCAN - CT HEAD/BRAIN W/O CONT 12/09 0736 Report Impression - Status: SIGNED Entered: 12/09/2020 0751 IMPRESSION: No acute intracranial process seen. Findings discussed with at 7:47 AM on 12/09/2020. FOR INTERNAL CODING PURPOSES ONLY RESULT CODE: CVR Impression By: [email or web address] - Isaias De Oliveira M.D. RADIOLOGY - XR SHOULDER 2+V LT 12/09 0805 Report Impression - Status: SIGNED Entered: 12/09/2020 0822 IMPRESSION: No acute findings of the left shoulder. Impression By: Vivien Wilson M.D. ULTRASOUND - US RETRO LTD 12/09 1444 Report Impression - Status: SIGNED Entered: 12/09/2020 1514 IMPRESSION: 1. Hyperechoic kidneys. 2. Simple cyst right kidney, multiple cysts versus severe hydronephrosis left kidney. Impression By: Vivien Wilson M.D. [facility] - MRI BRAIN W/O CONTRAST 12/09 1605 Report Impression - Status: SIGNED Entered: 12/09/2020 1702 IMPRESSION: Small early subacute lacunar infarct in the right thalamus. Moderate chronic microvascular ischemic changes and diffuse cerebral volume loss. LOCATION: A 1 Impression By: Michelle Nielsen M.D. Results: labs reviewed, vital signs stable, current med profile rev'd Diagnosis, Assessment Plan Free Text DxA P Notes Free text DxA P notes: 65 years old male admitted with complaints of falls in past [address] of the brain - negative for acute infarct. MRI of the brain - Small early subacute lacunar infarct in the right thalamus. Moderate chronic microvascular ischemic changes and diffuse cerebral volume loss. Diagnoses: 1. Subacute lacunar infarct in the right thalamus related to small vessel disease 2. Gait ataxia 3. History of chronic infarct 4. Acute Kidney Injury 5. Polysubstance abuse 6. Tobacco abuse 7. Hypertension 8. History of COPD Plan: Telemetry. Reviewed imaging reports. Continue Aspirin and statins. Substance abuse cessation Tobacco abuse cessation PT/OT and speech evaluation. Neurology to follow. Thank you very much for the consult. at 1759 RPT #: [id number] END OF REPORT [facility] 2020-12-09 13:57:00 [facility] ([facility]) Nephrology Consultation Note REPORT#:[id number] REPORT STATUS: Signed DATE:12/09/20 TIME:1357 PATIENT: RADHA MARMOLEJO UNIT #: [id number] ROOM/BED: [place] [address] : 53 AGE: 65 SEX: M ATTEND: Pj Brooks MD ADM AUTHOR: Gamal Rudd MD * ALL edits or amendments must be made on the electronic/computer document * History of Present Illness Requesting clinician: Dr Brooks. Reason for consult: TOMMIE. Chief complaint: Frequent falls. HPI: 65 y o male pt with hx of [...] management of carotid arteriosclerosis. History - Adult longitudinal Past medical history: Reports: Hypertension, Transient ischemic attack. Family history: Reports: Heart disease, Hypertension. Alcohol use: Denies EtOH use Drug use: Denies recreational drugs Smoking status: Smoking status for patients 13 years old or older: Current every day smoker Medications: Home Medications: Medication Dose/Rte/Freq Days Qty Entered Last Max Daily Dose Reviewed ASPIRIN 81 MG PO BEDTIME 12/09/20 12/09/20 Strength: 81 MG TAB.CHEW 0754 0758 ATORVASTATIN (LIPITOR) 40 MG PO DAILY 12/09/20 12/09/20 Strength: 40 MG TAB 0755 0758 LISINOPRIL (ZESTRIL) 5 MG PO DAILY 12/09/20 12/09/20 Strength: 5 MG TAB 0755 0758 buPROPion (WELLBUTRIN) 150 MG PO BID 12/09/20 12/09/20 Strength: 100 MG TAB 0756 0758 TAMSULOSIN ER (FLOMAX) 0.4 MG PO DAILY 12/09/20 12/09/20 Strength: 0.4 MG CAP.SR.24H 0756 0758 BUDESONIDE/FORMOTEROL 2 PUFF INH BID 12/09/20 12/09/20 FUMARATE 0757 0758 (SYMBICORT 80/4.5 MCG/ACT) Strength: 80 MCG-4.5 MCG/ACTUATION INHALER Current Hospital Medications: Cardiovascular Drugs Sig/Tio Start time Last Medication Dose Route Stop Time Status Admin Amlodipine Besylate 5 MG DAILY 12/10 899 AC (NORVASC) PO 01/09 08 Carvedilol 12.5 MG BID@0900,2100 12/10 899 AC (COREG) PO 01/09 859 Hydralazine HCl 20 MG Q6H PRN PRN [...] 12/09 914 AC (COLACE) PO 01/08 914 Allergies: Coded Allergies: No Known Allergies (12/09/20) Review of Systems Constitutional: Reports: generalized weakness. Denies: chills, fatigue, fever, lethargy, malaise, recent wt loss, other. Skin: Denies: abrasion, bruising, contusion, diaphoresis, ecchymosis, itching, laceration, rash, swelling, other. Allergy/Immun: Denies: allergic reaction, anaphylaxis, hives, itching, rhinorrhea, sneezing, other. Respiratory: Denies: DORSEY (dyspnea on exertion), hemoptysis, non productive cough, parox nocturnal dyspnea, pleurisy, pleuritic pain, pneumonia, productive cough (sputum ), SOB, wheezing, other. Cardiovascular: Denies: chest pain, DORSEY (dyspnea on exertion), edema, orthopnea, palpitations, parox nocturnal dyspnea, other. GI: Denies: abdominal pain, anorexia, constipation, diarrhea, dysphagia, GERD, hematemesis, hematochezia, hiatal hernia, melena, nausea, rectal pain, vomiting, other. : Denies: dysuria, flank pain, frequency, hematuria, nocturia, penile discharge, penile lesion, testicular pain, testicular swelling, urgency, urinary retention, other. Musculoskeletal: Reports: other (leg weakness). Denies: arthritis, extremity pain, extremity swelling, joint pain, joint swelling, lumbar pain, myalgias, neck pain, thoracic pain. Heme: Denies: adenopathy, bleeding, bruising, petechiae, other. Endocrine: Denies: cold intolerance, heat intolerance, polydipsia, polyphagia, polyuria, weight gain, weight loss, other. Neuro: Reports: weakness (both lower limbs.). Denies: bladder dysfunction, bowel dysfunction, change in LOC, confusion, dizziness, focal weakness, gait problem, headache, lightheaded, numbness, seizure, slurred speech, spinning sensation, syncope, unable to speak, vision change, other. Objective General VS/I O: Vital Signs: Date Time Temp Pulse Resp B/P [...] Weight (lb): Weight (oz): Weight (kg): 65.909 Medications: Active Meds + DC'd Last 24 Hrs Acetaminophen 650 MG Q6H PRN PRN PO Acetaminophen 650 MG Q6H PRN PRN RECTAL Bisacodyl 10 MG DAILY PRN PRN RECTAL Docusate Sodium 100 MG BID PRN PRN PO Hydralazine HCl 20 MG Q6H PRN PRN IV Sodium Chloride 1,000 ML X1ED STA IV (DC) Physical Exam General appearance: alert, awake, oriented Head/eyes: atraumatic, normocephalic Cardiovascular: normal heart sounds, regular rate and rhythm Respiratory: aerating well, clear to auscultation Abdomen: non-tender, soft Extremities: normal inspection Neuro/MACHINE PIE MAKER: alert, oriented X 3, CN II-XII intact, normal speech Diagnosis, Assessment Plan Problem List/A P: 1. Generalized weakness 2. Frequent falls Free Text DxA P Notes Free text DxA P notes: TOMMIE vs CKD-His creatinine is elevated at 1.8. he does have a hx of lng standing hypertension. we did obtain a renal US that revealed echogenic kidneys bilaterally with cysts noted in both kidneys. this is more in keeping with medical renal disease. we also obtained urine protein/creatinine and are waiting for results. we will dose meds for eGFR and avoid nephrotoxins. Deconditioning-deemed due to possible cva. PT/OT to evaluate. Hypertension-Poorly controlled. we will adjust antihypertensive meds to achieve goal BP of <130/80mmhg. . Falls-Deemed due to possible CVA. MRI brain confirmed small acute thalamic stroke. he also has chronic mscrovascular ischemic changes. we will continue statin and aspirin therapy. fall precautions on board. at 0307 RPT #: [id number] END OF REPORT [facility] 2020-12-09 10:16:00 [facility] ([facility]) Hospitalist History Physical REPORT#:[id number] REPORT STATUS: Signed DATE:12/09/20 TIME:1016 PATIENT: RADHA MARMOLEJO UNIT #: [id number] ROOM/BED: [place] [address] : 53 AGE: 65 SEX: M ATTEND: Pj Brooks MD ADM AUTHOR: Pj Brooks MD * ALL edits or amendments must be made on the electronic/computer document * History of Present Illness HPI Chief complaint: Multiple falls HPI: 65-year-old AAM with past medical history of hypertension, [...] other associated symptoms. Reports abrasion to left shoulder. Denies any chest pain or shortness of breath Patient is a smoker smokes 1 pack a day Uses alcohol and uses cocaine History Past Medical Surgical Hx Additional medical history: Hypertension history of CVA Additional surgical history: No significant past surgical history Family History Family history: Reports: Hypertension. Social History Alcohol use: Alcohol use Drug use: Cocaine Smoking status: Smoking status for patients 13 years old or older: Current every day smoker Medication/Allergy-Vaccine Hx Allergies: Coded Allergies: No Known Allergies (12/09/20) Review of Systems Free Text ROS Notes Free Text ROS Notes: All the 14 point review of systems negative except for those mentioned HPI. Pertinent positives include inability to walk ,Frequent falls Physical Exam VS/I O: Vital Signs Date Temp Pulse Resp B/P B/P [...] (kg): 65.909 BMI: 20.3 General appearance: alert, awake Head/Eyes: atraumatic, normocephalic ENT: dry mucosal membrane Neck: supple/no meningismus Cardiovascular: normal heart sounds, regular rate rhythm Respiratory: aerating well, symmetric expansion, no distress Abdomen: soft, no distention Genitourinary: no bladder distention Extremities: moves all, no edema Musculoskeletal: normal inspection Neuro/MACHINE PIE MAKER: alert, oriented X 3 Skin: dry, no rash Lymphatics: no lymphadenopathy Psychiatry: anxious Results Findings/Data: Laboratory Tests 12/09/20729: [Embedded Image Not Available] Laboratory Tests: 12/0930 Chemistry Sodium (134 - 147 mmol/L) 141 [...] - 7.0 pH UNITS) 6.0 Ur Specific Jacobson (1.005 - 1.030 SG) 1.010 Urine Protein (NEG mg/dL) NEGATIVE Urine Glucose (UA) (NEG mg/dL) NEGATIVE Urine Ketones (NEG mg/dL) NEGATIVE Urine Blood (NEG mg/DL) NEGATIVE Urine Nitrite (NEG SCREEN) NEGATIVE Urine Bilirubin (NEG mg/dL) NEGATIVE Urine Urobilinogen (<2.0 mg/dL) 0.2 Ur Leukocyte Esterase (NEGATIVE Leuk/mcL) NEGATIVE Laboratory Tests 12/09/20 0730: [Embedded Image Not Available] Radiology data: Recent Impressions: CAT SCAN - CT HEAD/BRAIN W/O CONT 12/09 0736 Report Impression - Status: SIGNED Entered: 12/09/2020 0751 IMPRESSION: No acute intracranial process seen. Findings discussed with at 7:47 AM on 12/09/2020. FOR INTERNAL CODING PURPOSES ONLY RESULT CODE: CVR Impression By: [email or web address] Le De Oliveira M.D. RADIOLOGY - XR SHOULDER 2+V LT 12/09 0805 Report Impression - Status: SIGNED Entered: 12/09/2020 0822 IMPRESSION: No acute findings of the left shoulder. Impression By: Vivien Wilson M.D. Diagnosis, Assessment Plan Problem List/A P: 1. Frequent falls 2. Generalized weakness Free Text A P: Frequent falls Accelerated hypertension history of CVA Smoker History of cocaine abuse Acute kidney injury Plan Monitor under grinder lap neuro vital signs Get a PT OT evaluation We will get an MRI to rule out any CVA Neurology consult Monitor renal parameters Start on IV fluids Continue home medications and titrate as needed Advise smoking cessation Advised stop using cocaine GI/DVT prophylaxis Advanced directive full code for now at 1419 RPT #: [id number] END OF REPORT [facility] 2020-12-09 07:36:00 [facility] ([facility]) EMERGENCY PROVIDER REPORT REPORT#:[id number] REPORT STATUS: Signed DATE:12/09/20 TIME:735 PATIENT: RADHA MARMOLEJO UNIT #: [id number] ROOM[address]BED: [address] : [address] AGE: 65 SEX: M PCP PHYS: DOES_NOT KNOW SERVICE AUTHOR: Mode Duran MD * ALL edits or amendments must be made on the electronic/computer document * HPI-Dizziness/Weakness Free Text HPI Notes Free Text HPI Notes Patient with previous history of hypertension, COPD and previous CVA currently on blood thinners presents with dizziness and frequent falls this week. Reports that his legs give out frequently. Denies head trauma. Denies fever or vomiting. Denies numbness or weakness otherwise. Denies other exacerbating or alleviating factors. Denies other associated symptoms. Currently denying pain. Reports abrasion to left shoulder. General Initial Greet Date/Time 12/09/20721 Presentation Chief Complaint Dizzy Review of Systems ROS Statements All systems rev neg except as marked. Past Medical History - Adult Stated Complaint KEEPS FALLING AND CONFUSED Allergies Coded Allergies: No Known Allergies (12/09/20) Home Medications Reported Medications ASPIRIN 81 MG PO BEDTIME ATORVASTATIN (LIPITOR) 40 MG PO DAILY LISINOPRIL (ZESTRIL) 5 MG PO DAILY buPROPion (WELLBUTRIN) 150 MG PO BID TAMSULOSIN ER (FLOMAX) 0.4 MG PO DAILY BUDESONIDE/FORMOTEROL FUMARATE (SYMBICORT 80/4.5 MCG/ACT) 2 PUFF INH BID Smoking status: Smoking status for patients 13 years old or older: Current every day smoker Physical Exam Vital Signs Vital Signs First Documented: Result Date Time Pulse Ox 100 [...] 719 Review of Vital Signs Reviewed Focused PE General/Const General/Const Awake, Alert MS Head Head Normocephalic Eyes Eyes PERRL, EOMI, Conjunctiva NL Ears/Nose/Throat Ears/Nose/Throat Airway patent, Mucous membranes moist, Pharynx NL, Tympanic membs NL, Ext aud canal NL MS Neck Neck Supple, No meningismus, Full range of motion, No swelling, Non-tender, No masses, No JVD, No carotid bruit, Thyroid NL Resp/Chest Respiratory/Chest Breath sounds NL, Breath sounds = bilat, No respiratory distress, No rales, No rhonchi, No wheezing Cardiovascular Cardiovascular Heart rate NL, Regular rhythm, Heart sounds NL, No murmurs, Cap refill not delayed, Peripheral circulation NL Abdomen/GI Abdomen/GI Soft, Non-tender, No guarding, No rebound MS Back Back Inspection NL, Non-tender, No CVA tenderness Lymphatic Lymphatic No gross adenopathy MS Lower Extrem Lower Ext/Pelvis/MS Inspection NL, No swelling, Non-tender, No erythema, No deformity, Neurologic intact, Vascular intact, No edema Skin Skin Color NL, Warm, Dry, Turgor NL, abrassion left shoulder Neurologic Neurologic Oriented X3, Speech NL, No motor deficits, No sensory deficits, CN II - XII intact, Cerebellar NL Psychiatric Psychiatric Affect NL, Mood NL, Cognitive function NL, Thought content NL Interpretation Diagnostics Lab Results Interpretation Results Laboratory Tests 12/09/20729: [Embedded Image Not Available] Laboratory Tests: 12/09 Chemistry Sodium (134 - 147 mmol/L) 141 [...] (0.8 - 1.2 INR Unit) 1.04 PTT ([place]) (26 - 35 SECONDS) 33.0 PT Patient/Control [...] - 7.0 pH UNITS) 6.0 Ur Specific Jacobson (1.005 - 1.030 SG) 1.010 Urine Protein [...] (0.0 - 12.0 MG/DL) 19.3 H Recent Impressions: CAT SCAN - CT HEAD/BRAIN W/O CONT 12/09 0736 Report Impression - Status: SIGNED Entered: 12/09/2020 0751 IMPRESSION: No acute intracranial process seen. Findings discussed with at 7:47 AM on 12/09/2020. FOR INTERNAL CODING PURPOSES ONLY RESULT CODE: CVR Impression By: [email or web address] - Isaias De Oliveira M.D. RADIOLOGY - XR SHOULDER 2+V LT 12/09 0805 Report Impression - Status: SIGNED Entered: 12/09/2020 0822 IMPRESSION: No acute findings of the left shoulder. Impression By: JeriPXAntoine Wilson M.D. ECG #1 Interpretation Text/Dict Note EKG performed at 7:34 AM. Ventricular rate is 81 bpm. Normal sinus rhythm, normal axis, no STEMI. Re-Evaluation MDM Free Text MDM Notes Free Text MDM Notes Negative work-up with patient currently stable but high risk due to persistent symptoms and previous stroke. Will admit to hospitalist for observation. I have spoken with the patient and/or caregivers. I have explained the patient's condition, diagnoses and treatment plan based on the information available to me at this time. I have answered the patient's and/or caregiver's questions and addressed any concerns. The patient and/or caregivers have as good an understanding of the patient's diagnosis, condition and treatment plan as can be expected at this point. The patient has been stabilized within the capability of the emergency department. The patient will be transported for further care and management or will be moved to an observation or inpatient service. I have communicated with the staff or medical practitioner taking over this patient's care. Counseled Regarding Diagnosis, Lab results, Imaging studies, Need for admission, Need for follow-up, When to return to ED CODE STATUS while in ER was full code. Goals of care were discussed in the ED with patient and/or family and the hospitalist was updated on admission of CODE STATUS in the ER. Agrees with plan and disposition. Stable and comfortable at time of disposition. Plan explained and strict return precautions given. Re-Evaluation/Progress #1 Time of Re-Eval 0740 Re-Eval Status Improved ED Course Medication(s) Ordered Medication(s) Ordered: Cardiovascular Drugs Sig/Tio Start time Last Medication Dose Route Stop Time Status Admin Hydralazine HCl 20 MG Q6H PRN PRN 12/09 914 AC IV 01/08 914 Central Nervous System Agents Sig/Tio Start time Last Medication Dose Route Stop Time Status Admin Acetaminophen 650 MG Q6H PRN PRN 12/09 914 AC PO 01/08 914 Acetaminophen 650 MG Q6H PRN PRN 12/09 0815 AC RECTAL 01/08 914 Gastrointestinal Drugs Sig/Tio Start time Last Medication Dose Route Stop Time Status Admin Bisacodyl 10 MG DAILY PRN PRN 12/09 914 AC RECTAL 01/08 914 Docusate Sodium 100 MG BID PRN PRN 12/09 914 AC PO 01/08 914 Patient Discharge Departure Vital Signs/Condition Vital Signs First Documented: Result Date Time Pulse Ox 100 12/09 0720 B/P 173/91 12/09 0720 B/P Mean 118 12/09 0720 O2 Delivery Room air 12/09 0720 Temp 36.7 12/09 0720 Pulse 82 12/09 0720 Resp 16 12/09 0720 Last Documented: Result Date Time Pulse Ox 98 12/09 0830 B/P 175/82 12/09 0830 B/P Mean 113 12/09 0830 Pulse 76 12/09 0830 Resp 18 12/09 0830 O2 Delivery Room air 12/09 0720 Temp 36.7 12/09 0720 All vital signs available at the time of this entry have been reviewed. Condition Stable Clinical Impression Clinical Impression Primary Impression: Generalized weakness Secondary Impressions: Frequent falls Time of Impression 09 Disposition Decision Admit Admit Physician Name Pj Brooks MD Admit Physician Hospitalist Request Time 918 Request Date 12/09/20 )( Admission Accepts Yes )( Accepted Time 918 )( Accepted Date 12/09/20 Call Information will see patient, agrees with eval, agrees with plan at 1804 RPT #: [id number] END OF REPORT [facility] 2020-12-09 07:26:00 [id number] [facility] [id number] [place] [id number] PATIENT NAME: RADHA MARMOLEJO ADMIT DATE: 12/09/20 ACCOUNT NO: [id number] ROOM NO: [facility] AGE: 65 REPORT TYPE: eELECTROCARDIOGRAM SEX: M ADMITTING PHYSICIAN: Pj Brooks MD ATTENDING PHYSICIAN: Pj Brooks MD Order: [id number] Test Reason : (Not Selected) Test Date/Time Stamp: SunDec 09 2020 07:26:10 Blood Pressure : 173/091 mmHG Vent. Rate : 081 BPM Atrial Rate : 081 BPM P-R Int : 140 ms QRS Dur : 080 ms QT Int : 366 ms P-R-T Axes : 078 014 061 degrees QTc Int : 425 ms Normal sinus rhythm Normal ECG No previous ECGs available Confirmed by MD Arabella, Lashaun ([id number]) on 12/25/2020 2:18:17 PM Referred By: Self Referred Confirmed by:Lashaun Bell MD at 1418 PATIENT NAME: DEBBIERADHA [facility]
--- NOTE | 2024-06-16 10:46 | RAD REPORT ---
EXAM DESCRIPTION: MRI - Brain Wo Cont - 06/16/2024 10:04 am CLINICAL HISTORY: TIA/stroke COMPARISON: Head CT and CT angiogram 06/14/2024 TECHNIQUE: Multiplanar multisequence MRI of the brain performed without IV contrast. FINDINGS: No evidence of acute infarct or other diffusion signal abnormality. No evidence of acute intracranial hemorrhage or abnormal extra-axial fluid collections. Right frontal cortical areas of encephalomalacia. Extensive white matter signal abnormalities in the bilateral frontal regions and to lesser extent right more than left parietal white matter, extending to the periventricular white matter, with associated white matter volume loss and ex vacuo dilation o f the right more than left lateral ventricle frontal horn and body. The findings are stable. Ventricu lar caliber is overall stable. Midline structures are unremarkable. Other scattered subcortical and deep white matter T2/FLAIR hyperintensities, nonspecific, but suggest marleni of chronic small vessel ischemic changes. No mass effect or midline shift. Punctate left pontine focus of susceptibility signal abnormality, suggesting remote microhemorrhage. Major vascular flow voids are preserved. Mastoid air cells are well aerated. Scattered mild inflammatory paranasal sinus mucosal thickening. IMPRESSION: No acute intracranial process. Stable white matter and cortical signal abnormalities mor e pronounced in the right hemisphere, favoring sequelae of remote ischemia.
--- NOTE | 2024-06-16 10:50 | P.PN ---
Subjective Date of Service: 06/16/24 Chief Complaint: Right facial droop Pt is resting comfortably in bed. He has left upper extremity weakness. CT head is unremarkable. MRI brain is unremarkable. Waiting for Echo. No other complaints. Review of Systems General: Unremarkable Eyes: Unremarkable ENT: Unremarkable Respiratory: Unremarkable Cardiovascular: Unremarkable Gastrointestinal: Unremarkable Genitourinary: Unremarkable Musculoskeletal: Unremarkable Integumentary: Unremarkable Neurological: Weakness Lymphatics: Unremarkable Physical Examination - Vital Signs Temperature: 97.7 F Blood Pressure: 142/84 Pulse: 74 Respirations: 15 Pulse Ox (%): 99 - Physical Exam General: Alert, In no apparent distress, Oriented x3 HEENT: Atraumatic, Normocephalic Neck: Supple, 2+ carotid pulse no bruit, JVD not distended Respiratory: Clear to auscultation bilaterally, Normal air movement Cardiovascular: No edema, Normal pulses, Regular rate/rhythm, Normal S1 S2 Capillary refill: <2 Seconds Gastrointestinal: Normal bowel sounds, Soft and benign, Non-distended Musculoskeletal: No clubbing, No swelling, No contractures Integumentary: No rashes, No breakdown, No significant lesion Neurological: Normal gait, Normal speech, Normal tone, Sensation intact, Abnormal strength Lymphatics: No axilla or inguinal lymphadenopathy - Studies Laboratory Data (last 24 hrs) 06/15/24 19:26 Sodium 140 Potassium 4.2 BUN 21 H Creatinine 1.94 H Glucose 80 Phosphorus 2.8 Magnesium 2.2 Triglycerides 53 Cholesterol 102 HDL Cholesterol 46 Cholesterol/HDL Ratio 2.22 Assessment And Plan - Plan TIA/ History of CVA: CT head is unremarkable. He has transient right facial droop. CT head and CTA head ane neck are unremarkable. MRI brain is unremarkable. Will f/u Echo. Continue aspirin and plavix. Consulted Neurology, speech therapist and PT. Malignant hypertension: Will continue amlodipine and prn hydralazine once we r/o CVA. BPH: Continue home dose tamsulosin Chronic kidney disease stage III: cr is 1.94<- 2.09 <- 2.2. Will avoid nephrotoxin, continue IVF, and monitor renal function. History of peptic ulcer: Continue pronix History of GI bleed: noted. No active bleed DVT prophylaxis: Heparin SQ Code: full code Dispo: Pending hospital course.
[2024-06-16 11:50] VITALS: O2SAT 97
[2024-06-16 12:16] LABS: Absolute Basophils 0.1 K/uL (0-0.5); Absolute Eosinophils 0.2 K/uL (0-0.5); Absolute Lymphocytes (CBC) 2.6 K/uL (0.7-4.9); Absolute Monocytes 0.6 K/uL (0.1-1.3); Absolute Neutrophil 3.7 K/uL (1.8-8.0); Eosinophils % 2.4 % (0-4.4); Hematocrit 38.6 % (39.6-49.0); Lymphocytes % 36.4 % (15.3-44.8); MCH 26.7 pg (27.0-35.0); MPV 11.5 fL (7.6-11.3); Monocytes % 8.8 % (3.3-12.3); Neutrophils % 51.4 % (41.7-73.7); Platelets 184 thou/uL (152-406); RBC Red Blood Cell Count 4.49 M/uL (4.33-5.43); Red Cell Distribution Width 15.9 % (12.1-15.2)
[2024-06-16 12:19] LABS: Anion Gap 17.3 mEq/L (5.0-15.0); Potassium 4.3 mEq/L (3.5-5.1)
--- NOTE | 2024-06-17 07:18 | P.PN ---
Date of Service: 06/17/24 Subjective Date of Service: 06/16/24 Chief Complaint: Right facial droop He has left upper extremity weakness. CT head is unremarkable. MRI brain is unremarkable. Waiting for Echo. No other complaints. Review of Systems 10 point ROS neg unless listed in HPI Physical Examination - Vital Signs Temperature: 97.7 F Blood Pressure: 142/84 Pulse: 74 Respirations: 15 Pulse Ox (%): 99 - Physical Exam General: Alert, In no apparent distress, Oriented x3 HEENT: Atraumatic, Normocephalic Neck: Supple, 2+ carotid pulse no bruit, JVD not distended Respiratory: Clear to auscultation bilaterally, Normal air movement Cardiovascular: No edema, Normal pulses, Regular rate/rhythm, Normal S1 S2 Capillary refill: <2 Seconds Gastrointestinal: Normal bowel sounds, Soft and benign, Non-distended Musculoskeletal: No clubbing, No swelling, No contractures Integumentary: No rashes, No breakdown, No significant lesion Neurological: Normal gait, Normal speech, Normal tone, Sensation intact, Abnormal strength Lymphatics: No axilla or inguinal lymphadenopathy Assessment And Plan - Plan TIA/ History of CVA: CT head is unremarkable. He has transient right facial droop. CT head and CTA head ane neck are unremarkable. MRI brain is unremarkable. Will f/u Echo. Continue aspirin and plavix. Consulted Neurology, speech therapist and PT. Malignant hypertension: Will continue amlodipine and prn hydralazine once we r/o CVA. BPH: Continue home dose tamsulosin Chronic kidney disease stage III: cr is 1.94<- 2.09 <- 2.2. Will avoid nephrotoxin, continue IVF, and monitor renal function. History of peptic ulcer: Continue pronix History of GI bleed: noted. No active bleed DVT prophylaxis: Heparin SQ Code: full code Dispo: Pending hospital course. Time spent with patient 35-minute
--- NOTE | 2024-06-17 07:20 | P.DS ---
Admission Date: 06/16/24 Discharge Date: 06/17/24 Disposition: DC HOME/HOME HEALTH CARE Discharge Condition: GOOD Reason for Admission: Right facial droop Brief History of Present Illness: 69-year-old gentleman with a history of CVA with residual aphasia was brought to the emergency department due to a complaint of transient right facial droop which occurred yesterday in the afternoon. Symptoms noticed by patient's home health aide. No reported limb weakness. Patient has baseline history of CVA with aphasia, no reported changes in patient's speech. Patient was evaluated in the ED and noted to have severely elevated blood pre ssure. Head CT did not show any acute disease. Patient was given labetalol and hydralazine to control his blood pressure. ED provider reports resolution of patient's facial droop. No focal neurologic symptoms noted when patient was seen for examination in the ED. patient is hospitalized for further stroke workup. Physical Exam General: Alert, In no apparent distress, Oriented x3 HEENT: Atraumatic, Normocephalic Neck: Supple, 2+ carotid pulse no bruit, JVD not distended Respiratory: Clear to auscultation bilaterally, Normal air movement Cardiovascular: No edema, Normal pulses, Regular rate/rhythm, Normal S1 S2 Capillary refill: <2 Seconds Gastrointestinal: Normal bowel sounds, Soft and benign, Non-distended Musculoskeletal: No clubbing, No swelling, No contractures Integumentary: No rashes, No breakdown, No significant lesion Neurological: Normal gait, Normal speech, Normal tone, Sensation intact, Abnormal strength Lymphatics: No axilla or inguinal lymphadenopathy Hospital Course: 69-year-old gentleman with a history of CVA with residual aphasia was brought to the emergency department due to a complaint of transient right facial droop. He was evaluated for CVA, TIA. MRI was negative for acute CVA, patient was evaluated by PT OT and speech. Plan to discharge home with home health with home health, PT OT speech per patient family request. Tolerating diet, fall precautions MRI brain MPRESSION: No acute intracranial process. Stable white matter and cortical signal abnormalities more pronounced in the right hemisphere, favoring sequelae of remote ischemia. Continue home medicines as previously prescribed GOAL: Clear understanding of disease process INSTRUCTIONS: Physician Discharge Instructions: -Follow-up with PCP in 1 to 2 weeks -Please call Dr. Calvillo at [phone] if any questions regarding hospital stay -Please call nursing station at [phone] if any nursing or medication questions -Return to the emergency room if symptoms worsen Diet: ADA, low sodium Activity: Fall precautions Vital Signs/Physical Exam: Temp Pulse Resp BP Pulse Ox 97.5 F 66 16 150/74 H 98 06/17/24 03:17 06/17/24 03:17 06/17/24 03:17 06/17/24 03:17 06/17/24 03:17 Laboratory Data at Discharge: WBC 7.20 thou/uL (4.3-10.9) 06/16/24 11:55 Hgb 12.0 g/dL (13.6-17.9) L 06/16/24 11:55 Hct 38.6 % (39.6-49.0) L 06/16/24 11:55 Plt Count 184 thou/uL (152-406) 06/16/24 11:55 PT 12.5 SECONDS (9.4-12.5) 06/14/24 01:07 INR 1.12 06/14/24 01:07 APTT 33.8 SECONDS (24.3-36.9) 06/14/24 01:07 Sodium 138 mEq/L (136-145) 06/16/24 11:55 Potassium 4.3 mEq/L (3.5-5.1) 06/16/24 11:55 BUN 20 mg/dL (7-18) H 06/16/24 11:55 Creatinine 1.81 mg/dL (0.70-1.30) H 06/16/24 11:55 Glucose 74 mg/dL (74-106) 06/16/24 11:55 Phosphorus 2.8 mg/dL (2.5-4.9) 06/15/24 19:26 Magnesium 2.2 mg/dL (1.6-2.4) 06/15/24 19:26 Triglycerides 53 mg/dL (<150) 06/15/24 19:26 Cholesterol 102 mg/dL (<200) 06/15/24 19:26 HDL Cholesterol 46 mg/dL (40-60) 06/15/24 19:26 Cholesterol/HDL Ratio 2.22 06/15/24 19:26 Home Medications: Tamsulosin [Flomax*] 2 cap PO DAILY 03/19/20 Aspirin 81 mg PO DAILY 12/23/20 Atorvastatin Calcium [Lipitor] 1 tab PO BEDTIME 12/23/20 carvediloL [Coreg*] 12.5 mg PO BEDTIME 12/23/20 Clopidogrel Bisulfate [Plavix*] 75 mg PO DAILY #30 tablet 09/05/21 Amlodipine [Norvasc*] 10 mg PO DAILY 10/24/22 Carbidopa/Levodopa 25-100 [Sinemet 25-100*] 25 - 100 mg PO TID 10/24/22 Albuterol Sulfate [Albuterol Sulfate 0.083% Neb Soln] 2.5 mg IH Q6HP PRN 12/04/22 Donepezil HCl [Aricept] 10 mg PO BEDTIME 12/04/22 Albuterol Sulfate [Ventolin Hfa] 2 puff IH QID PRN 11/19/23 Carvedilol [Coreg] 12.5 mg PO DAILY 11/19/23 Fluticasone Furoate [Arnuity Ellipta] 1 puff IH DAILY 11/19/23 Folic Acid 1 mg PO DAILY 11/19/23 Sulfamethoxazole/Trimethoprim [Bactrim 400-80 mg Tablet] 1 each PO BID 11/19/23 Hydralazine HCl 25 mg PO Q8H PRN 30 Days #90 tab 06/17/24 New Medications: Hydralazine HCl 25 mg PO Q8H PRN 30 Days #90 tab PRN Reason: Goal To Achieve Sbp In Comment Physician Discharge Instructions: 69-year-old gentleman with a history of CVA with residual aphasia was brought to the emergency department due to a complaint of transient right facial droop. He was evaluated for CVA, TIA. MRI was negative for acute CVA, patient was evaluated by PT OT and speech. Plan to discharge home with home health with home health, PT OT speech per patient family request. Tolerating diet, fall precautions MRI brain MPRESSION: No acute intracranial process. Stable white matter and cortical signal abnormalities more pronounced in the right hemisphere, favoring sequelae of remote ischemia. Hydralazine 25 mg 1 p.o. every 8 hours for systolic greater than 160 Follow-up with cardiology in 1 to 2 weeks Blood pressure log to cardiology appointment Continue home medicines as previously prescribed GOAL: Clear understanding of disease process INSTRUCTIONS: Physician Discharge Instructions: -Follow-up with PCP in 1 to 2 weeks -Please call Dr. Calvillo at [phone] if any questions regarding hospital stay -Please call nursing station at [phone] if any nursing or medication questions -Return to the emergency room if symptoms worsen Diet: ADA, low sodium Activity: Fall precautions Diet: AHA Activity: Fall precautions Followup: Leticia Lake MD [Primary Care Provider] - Time spent managing pt's care (in minutes): 45
[2024-06-17 07:30] LABS: Anion Gap 11.9 mEq/L (5.0-15.0); Magnesium 1.9 mg/dL (1.6-2.4); Potassium 3.9 mEq/L (3.5-5.1)
[2024-06-17 07:33] LABS: Absolute Eosinophils 0.3 K/uL (0-0.5); Absolute Lymphocytes (CBC) 2.1 K/uL (0.7-4.9); Absolute Monocytes 0.6 K/uL (0.1-1.3); Absolute Neutrophil 3.3 K/uL (1.8-8.0); Basophils % 0.7 % (0-1.3); Hemoglobin 13.7 g/dL (13.6-17.9); Lymphocytes % 33.8 % (15.3-44.8); MCH 26.8 pg (27.0-35.0); MCHC 31.8 g/dL (32.0-36.0); MCV 84.4 fL (80-100); MPV 10.4 fL (7.6-11.3); Monocytes % 9.5 % (3.3-12.3); Nucleated Red Blood Cells % 0.1 % (0-0); Platelets 161 thou/uL (152-406); RBC Red Blood Cell Count 5.09 M/uL (4.33-5.43); Red Cell Distribution Width 15.8 % (12.1-15.2)
--- NOTE | 2024-06-17 08:42 | ECHO ---
HEIGHT: 5 ft 11 in WEIGHT: 154 lb 0 oz DATE OF STUDY: 06/16/[address]: Randal Greene MD 2-DIMENSIONAL: YES M.MODE: YES DOPPLER: YES COLOR FLOW: YES TDS: YES PORTABLE: YES DEFINITY: BUBBLE STUDY: DIAGNOSIS: STROKE CARDIAC HISTORY: CATHERIZATION: SURGERY: PROSTHETIC VALVE: PACEMAKER: MEASUREMENTS (cm) DIASTOLIC (NORMALS) SYSTOLIC (NORMALS) IVSd (0.6-1.2) LA Diam (1.9-4.0) LVEF 60-65% LVIDd (3.5-5.7) LVIDs (2.0-3.5) %FS LVPWd (0.6-1.2) Ao Diam 2.8 (2.0-3.7) 2 DIMENSIONAL ASSESSMENT: RIGHT ATRIUM: NORMAL LEFT ATRIUM: NORMAL RIGHT VENTRICLE: NORMAL LEFT VENTRICLE: NORMAL TRICUSPID VALVE: NORMAL MITRAL VALVE: NORMAL PULMONIC VALVE: NORMAL AORTIC VALVE: NORMAL PERICARDIAL EFFUSION: NONE AORTIC ROOT: NORMAL LEFT VENTRICULAR WALL MOTION: NORMAL DOPPLER/COLOR FLOW: NORMAL COMMENTS: 1. NORMAL LEFT VENTRICULAR SYSTOLIC FUNCTION, EJECTION FRACTION 60-65%, NORMAL WALL MOTION 2. NORMAL DIASTOLIC FUNCTION TECHNOLOGIST: KATTY HUERTA
[2024-06-17 12:15] VITALS: BP 136/79; TEMP 97.3
--- NOTE | 2024-06-17 17:57 | EKG ---
Test Date: 2024-06-14 Test Time: 01:02:08 Youth Manager: LATANYA MEASUREMENT RESULTS: Intervals: Rate: 66 TX: 158 QRSD: 68 QT: 404 QTc: 423 [place]: P: 84 TX: 158 QRS: 46 T: 55 INTERPRETIVE STATEMENTS: Normal sinus rhythm Normal ECG Compared to ECG 04/02/2024 21:56:53 Myocardial infarct finding no longer present Electronically Signed On 06-17-24 17:49:26 CDT by Taiwo Vo
[2024-06-19 06:11] LABS: Anti-Thrombin III Activity 75 % normal (80-135)
[2024-06-19 17:27] LABS: Homocysteine 20.3 umol/L (<11.4)
[2024-06-19 18:15] LABS: Abnormal Protein Band 1 REPORT; Albumin, (SPE) 3.4 g/dL (3.8-4.8); Alpha-1-Globulins 0.3 g/dL (0.2-0.3); Alpha-2-Globulins 0.8 g/dL (0.5-0.9); Beta 1 Globulin 0.4 g/dL (0.4-0.6); INTERPRETATION REPORT; Total Protein 6.3 g/dL (6.1-8.1)
== END 2024-06-17 12:47 | disposition home health service (06) | DRG 69 ==
LOC: ER 00:16 → ERHOLD 02:37 → 2ND 03:30 → OBSVTOIN 06-16 10:37
PROVIDERS: ADMIT Internal Medicine; ATTEND Hospitalist
DX: G45.9 Transient cerebral ischemic attack, unspecified (principal); I69.320 Aphasia following cerebral infarction; I12.9 Hypertensive chronic kidney disease with stage 1 through stage 4 chronic kidney disease, or unspecified chronic kidney disease; N18.30 Chronic kidney disease, stage 3 unspecified; N40.0 Benign prostatic hyperplasia without lower urinary tract symptoms; J44.9 Chronic obstructive pulmonary disease, unspecified; G20.A1 Parkinson's disease without dyskinesia, without mention of fluctuations; F03.90 Unspecified dementia, unspecified severity, without behavioral disturbance, psychotic disturbance, mood disturbance, and anxiety; R29.810 Facial weakness; R41.0 Disorientation, unspecified; Z79.01 Long term (current) use of anticoagulants; Z79.02 Long term (current) use of antithrombotics/antiplatelets; Z79.82 Long term (current) use of aspirin; Z79.899 Other long term (current) drug therapy
CPT/HCPCS: 36415; 70450; 70496; 70498; 70551; 71045; 80048; 80061; 81240; 81241; 82306; 82565; 82607; 82947; 83090; 83735; 84100; 84165; 84443; 84484; 85025; 85300; 85302; 85305; 85306; 85610; 85730; 86021; 86147; 86592; 92526; 92610; 93005; 93306; 96374; 97116; 97161; 97530; 99284; G0378; J0360; J1644; J3480; J7030; Q9967